=== PATIENT | female | born 1965 | race Hispanic/Latino ===

== ENCOUNTER 2018-09-05 20:01 | Observation (INO) | payer OTHER ==
[2018-09-05 20:21] LABS: BASOPHILS % (AUTO) 0.7 % (0.0-5.0); EOSINOPHILS % (AUTO) 1.3 % (0.0-8.0); HEMATOCRIT 42.4 % (36-48); LYMPHOCYTES % (AUTO) 40.1 % (21.0-51.0); MEAN CORPUSCULAR HEMOGLOBIN 29.8 pg (27.0-33.0); MEAN CORPUSCULAR VOLUME 90.4 fL (79-99); MONOCYTES % (AUTO) 7.5 % (3.0-13.0); NEUTROPHILS % (AUTO) 50.4 % (40.0-77.0); NUCLEATED RED BLOOD CELLS 0.1 % (0.0-0.19); PLATELET COUNT (AUTO) 241 K/uL (130-400); RED BLOOD CELL COUNT(AUTO) 4.69 MIL/uL (4.00-5.50); RED CELL DISTRIBUTION WIDTH 12.6 % (11.0-15.5); WHITE BLOOD COUNT (AUTO) 7.6 K/uL (4.8-10.8)
[2018-09-05 20:35] LABS: INR 0.91 (0.85-1.15); PARTIAL THROMBOPLASTIN TIME 25.1 SEC (26.3-35.5); PROTHROMBIN TIME 9.6 SEC (9.6-11.6)
[2018-09-05] MEDS ORDERED: ASPIRIN 325 MG TABLET ONE (21:24)
[2018-09-05 21:30] LABS: ALBUMIN 3.4 g/dL (3.5-5.0); BILIRUBIN,TOTAL 0.2 mg/dL (0.2-1.0); CREATININE 1.1 mg/dL (0.5-1.5); POTASSIUM 4.6 mmol/L (3.5-5.1); TOTAL PROTEIN, SERUM 7.5 g/dL (6.0-8.3)
[2018-09-06] MEDS ORDERED: ONDANSETRON HCL 4 MG/2 ML VIAL IV PRN (00:30)
[2018-09-06] MEDS ORDERED: MORPHINE SULFATE 2 MG/ML 1ML SYG IV PRN (00:30)
[2018-09-06] MEDS ORDERED: ACETAMINOPHEN 325 MG TAB PO PRN (00:30)
[2018-09-06] MEDS ORDERED: NITROGLYCERIN 1GM/1 INCH PACKET TD SCH (00:30)
[2018-09-06] MEDS ORDERED: NITROGLYCERIN 1GM/1 INCH PACKET TD ONE (01:12)
[2018-09-06] MEDS ORDERED: SODIUM CHLORIDE 0.9% 1000ML 1,000 ML IV ONE (01:12)
[2018-09-06] MEDS ORDERED: INSULIN HUMULIN R 100 UNIT/ML 3ML ONE ×2 (01:22)
[2018-09-06 04:30] VITALS: BP 124/71
[2018-09-06 04:59] LABS: HEMOGLOBIN A1C 11.7 % (4.0-6.0)
[2018-09-06 05:09] LABS: BILIRUBIN,TOTAL 0.2 mg/dL (0.2-1.0); CREATININE 0.6 mg/dL (0.5-1.5); POTASSIUM 3.5 mmol/L (3.5-5.1); TOTAL PROTEIN, SERUM 6.7 g/dL (6.0-8.3)
[2018-09-06] MEDS ORDERED: ACETAMINOPHEN 325 MG TAB ONE (06:14)
[2018-09-06] MEDS: SODIUM CHLORIDE 0.9% 1000ML 1,000 ML IV SCH ×2 (07:25→14:05)
[2018-09-06 08:00] VITALS: BP 112/72
[2018-09-06] MEDS ORDERED: PNEUMOCOCCAL VACCINE POLYVALENT 0.5 ML/VIAL [PPV] IM SCH (08:15)
[2018-09-06] MEDS ORDERED: ASPIRIN 325MG EC TAB 325 MG TABLET.DR PO SCH (09:00)
[2018-09-06] MEDS ORDERED: PNEUMOCOCCAL VACCINE POLYVALENT 0.5 ML/VIAL [PPV] SQ ONE (09:00)
[2018-09-06] MEDS ORDERED: FAMOTIDINE/PF 20 MG/2 ML VIAL IV SCH (09:00)
[2018-09-06] MEDS ORDERED: ENOXAPARIN SODIUM 30 MG/0.3 ML SQ SCH (09:00)
[2018-09-06 11:00] VITALS: BP 141/71
[2018-09-06] MEDS ORDERED: METFORMIN HCL 500 MG TABLET PO SCH (12:00)
[2018-09-06] MEDS ORDERED: METF-444 PO (13:29)
[2018-09-06] MEDS ORDERED: ATORVASTATIN CALCIUM 20 MG TABLET PO SCH ×2 (21:00)
== END 2018-09-06 15:50 | disposition home or self-care (01) ==
LOC: EDH 20:01 → EDHIP 20:02 → 3AH 09-06 05:23
PROVIDERS: ADMIT Internal Medicine; ATTEND Internal Medicine
DX: I24.9 Acute ischemic heart disease, unspecified (principal); I10 Essential (primary) hypertension; E11.65 Type 2 diabetes mellitus with hyperglycemia
CPT/HCPCS: 36415 ×2; 71045; 80053 ×2; 80061; 82550; 82948 ×2; 83036; 83874; 84484 ×3; 85025; 85610; 85730; 93005; 96372; 96374; 99284; G0378 ×20; J1650; J1815 ×2; J3490; J7030

== ENCOUNTER 2024-09-11 16:45 | Inpatient (IN) | payer BC ==
[~2024-09-11] VITALS: Ht 152.4 cm; Wt 53.8 kg
[~2024-09-11 16:45] MED LIST: METF-444 PO
--- NOTE | 2024-09-11 17:38 | ERN ---
ED Note History of Present Illness Stated Complaint: WOUND CHECK Chief Complaint: FOOT INJURY/PAIN Time Seen by MD: 17:07 Time Seen by Midlevel: 17:07 Dictation: The patient is a 59-year-old female with a history of CAD status post stents on July [address] Carrasco, diabetes, hypertension who presents to the emergency department for evaluation of a wound to right foot. Patient reports that during the heart catheterization that was complications and she had some occlusion on her right leg causing her toes to become necrotic. Patient reports they have been necrotic since July. Reports she is supposed to get them amputated but they had postponed due to her use of blood thinners. Reports that on Saturday she started having redness and swelling, drainage from foot. Denies any fevers. Allergies: Coded Allergies: No Known Drug Allergies (Unverified Allergy, Unknown, 09/06/18) Home Meds Reported Medications Dapagliflozin Propanediol (Farxiga) 10 Mg Tablet, 10 MG PO DAILY, TAB 09/12/24 Atorvastatin Calcium (LIPITOR) 40 Mg Tablet, 1 TAB PO HS for 30 Days, #30 TAB 0 Refills 09/12/24 Discontinued Scripts Metformin HCl (Metformin HCl) 500 Mg Tablet, 500 MG PO BID for 30 Days, #60 TAB Prov:TOMEKA SCHULTE AGNICHOLAS 09/06/18 Past Medical History Past Medical History: CAD, Diabetes-Type II, Hypertension Surgical History: Other Surgical History Other: STENTS RN Note Reviewed/Agreed w/PFSH: Yes Review of System Dictation Constitutional: Negative for fever,chills, and weight loss Eyes: Negative for injury, pain,redness, and discharge ENT: Negative for injury,pain or swelling Cardiovascular: Negative for chest pain, palpitations, and edema Respiratory: Negative for shortness of breath, cough, and wheezing, Abdomen/GI: Negative for abdominal pain, nausea, vomiting, diarrhea, and constipation Back: Negative for injury and pain : Negative for injury, bleeding and discharge MS/Extremity: Negative for injury and deformity Skin: Positive for a right foot drainage and redness Neuro: Negative for headache, weakness, numbness, tingling, and seizure Psych: Negative for suicide ideation, homicidal ideation, and hallucinations Initial Vital Sign VS Vital Signs Date Time Temp Pulse Resp B/P (MAP) Pulse Ox O2 Delivery O2 Flow Rate FiO2 09/11/24 16:55 98.6 86 20 121/75 98 Room Air 0 09/11/24 17:25 21 Physical Exam Dictation Vital Signs reviewed General Appearance: Alert, oriented x 3, no acute distress, well developed, nourished. Head and Face: non-traumatic. Eyes: PERRL, pink conjunctivas, eyelid no trauma, anterior chamber with arcus senilis. Ears: Pinnas intact and no signs of trauma or erythema ear canals clear and no discharge TM no erythema Nose: No discharge, no bleeding. Oropharynx: Mouth normal, tongue pink. pharynx clear,no erythema, tonsils no exudates, no abscesses noted, mucous membrane moist Neck: Supple, non-tender, no thyromegaly, no masses, no JVD, no bruits Breast:Deferred Chest:No tenderness, no crepitus, no paradoxical movement, no retractions Lungs:Clear, well-ventilated, symmetric, no rales, no wheezing, no rhonchi, no stridor, good breath sounds bilaterally Heart: Regular rate, regular rhythm, no murmur, no gallops Vascular: Right toes necrotic, dorsalis pedis nonpalpable Abdomen: Soft, positive bowel sounds, nondistended, no guarding, nontender, no rebound, no masses no hepatomegaly, no splenomegaly, no Rodríguez's sign, no hernias. Rectal: Deferred Genital: Deferred Neurological: Normal speech, motor function intact, sensory function intact Musculoskeletal: Neck nontender, full range of motion, back nontender, full range of motion, Extremities: nontender, full range of motion Skin: Color pink, dry, no turgor, no rash, no lacerations, no abrasions, no contusions. Right foot with erythema, warmth to touch, open wound with purulent drainage, five toes necrotic Lymphatic: Deferred Results (Laboratory/Radiology) Laboratory/Radiology Laboratory Tests Test 09/12/24 05:17 09/12/24 05:23 09/12/24 08:00 09/12/24 12:06 White Blood Count 7.0 K/uL (4.8-10.8) 6.9 K/uL (4.8-10.8) Red Blood Count 2.99 MIL/uL (4.00-5.50) #L 3.02 MIL/uL (4.00-5.50) L Hemoglobin 8.0 g/dL (12.0-16.0) #L 8.3 g/dL (12.0-16.0) L Hematocrit 26.8 % (36-48) #L 26.9 % (36-48) L Mean Corpuscular Volume 89.6 fL (79-99) 89.1 fL (79-99) Mean Corpuscular Hemoglobin 26.8 pg (27.0-33.0) L 27.5 pg (27.0-33.0) Mean Corpuscular Hemoglobin Concent 29.9 g/dL (32.0-36.0) L 30.9 g/dL (32.0-36.0) L Red Cell Distribution Width 14.7 % (11.0-15.5) 14.8 % (11.0-15.5) Platelet Count 461 K/uL (130-400) H 436 K/uL (130-400) H Mean Platelet Volume 9.4 fL (7.5-10.5) 9.2 fL (7.5-10.5) Immature Granulocyte % (Auto) 0.3 % (0-1) Neutrophils (%) (Auto) 52.0 % (40.0-77.0) Lymphocytes (%) (Auto) 34.4 % (21.0-51.0) Monocytes (%) (Auto) 9.8 % (3.0-13.0) Eosinophils (%) (Auto) 3.1 % (0.0-8.0) Basophils (%) (Auto) 0.4 % (0.0-5.0) Neutrophils # (Auto) 3.7 K/uL (1.8-7.7) Lymphocytes # (Auto) 2.4 K/uL (1.0-4.8) Monocytes # (Auto) 0.7 K/uL (0.1-1.0) Eosinophils # (Auto) 0.22 K/uL (0.00-0.70) Basophils # (Auto) 0.03 K/uL (0.00-0.20) Absolute Immature Granulocyte (auto 0.02 K/uL (0-1) Nucleated Red Blood Cells 0.0 % (0.0-0.19) 0.0 % (0.0-0.19) Prothrombin Time 11.1 SEC (9.6-11.6) Prothromb Time International Ratio 0.99 (0.85-1.15) Activated Partial Thromboplast Time 29.3 SEC (26.3-35.5) Sodium Level 141 mmol/L (136-145) 140 mmol/L (136-145) Potassium Level 3.4 mmol/L (3.5-5.1) L 3.5 mmol/L (3.5-5.1) Chloride Level 107 mmol/L (101-111) 107 mmol/L (101-111) Carbon Dioxide Level 26 mmol/L (21-32) 26 mmol/L (21-32) Blood Urea Nitrogen 14 mg/dL (7-18) 13 mg/dL (7-18) Creatinine 0.6 mg/dL (0.5-1.0) 0.5 mg/dL (0.5-1.0) Glomerular Filtration Rate Calc 102 mL/min (>90) 107 mL/min (>90) Random Glucose 110 mg/dL (70-105) H 110 mg/dL (70-105) H Hemoglobin A1c 6.7 % (4.0-6.0) H Estimated Average Glucose (eAG) 146 mg/dL (70-126) H Total Calcium 8.5 mg/dL (8.5-10.1) 8.6 mg/dL (8.5-10.1) Phosphorus Level 4.0 mg/dL (2.5-4.9) Magnesium Level 2.00 mg/dL (1.80-2.40) Whole Blood Glucose 113 MG/DL (70-110) H 101 MG/DL (70-110) Segmented Neutrophils % 75 % (40-70) H Lymphocytes % (Manual) 17 % (22-44) L Monocytes % (Manual) 8 % (2-9) Differential Comment MANUAL DIFFERENTIAL White Cell Morphology Comment Platelet Morphology Comment SLIGHT INCREASED Red Blood Cell Morphology See comments Test 09/12/24 15:24 09/12/24 20:00 09/12/24 20:15 09/13/24 04:00 Whole Blood Glucose 140 MG/DL (70-110) H 110 MG/DL (70-110) Vancomycin Level Trough 20.5 UG/ML (10.0-20.0) H 11.2 UG/ML (10.0-20.0) # White Blood Count 7.5 K/uL (4.8-10.8) Red Blood Count 3.19 MIL/uL (4.00-5.50) L Hemoglobin 8.5 g/dL (12.0-16.0) L Hematocrit 28.7 % (36-48) L Mean Corpuscular Volume 90.0 fL (79-99) Mean Corpuscular Hemoglobin 26.6 pg (27.0-33.0) L Mean Corpuscular Hemoglobin Concent 29.6 g/dL (32.0-36.0) L Red Cell Distribution Width 14.7 % (11.0-15.5) Platelet Count 460 K/uL (130-400) H Mean Platelet Volume 9.5 fL (7.5-10.5) Immature Granulocyte % (Auto) 0.4 % (0-1) Neutrophils (%) (Auto) 61.2 % (40.0-77.0) Lymphocytes (%) (Auto) 29.4 % (21.0-51.0) Monocytes (%) (Auto) 6.2 % (3.0-13.0) Eosinophils (%) (Auto) 2.3 % (0.0-8.0) Basophils (%) (Auto) 0.5 % (0.0-5.0) Neutrophils # (Auto) 4.6 K/uL (1.8-7.7) Lymphocytes # (Auto) 2.2 K/uL (1.0-4.8) Monocytes # (Auto) 0.5 K/uL (0.1-1.0) Eosinophils # (Auto) 0.17 K/uL (0.00-0.70) Basophils # (Auto) 0.04 K/uL (0.00-0.20) Absolute Immature Granulocyte (auto 0.03 K/uL (0-1) Nucleated Red Blood Cells 0.0 % (0.0-0.19) Test 09/13/24 05:17 09/13/24 10:43 09/13/24 11:05 09/13/24 15:32 Whole Blood Glucose 95 MG/DL (70-110) 100 MG/DL (70-110) 130 MG/DL (70-110) H Total Creatine Kinase 44 U/L (21-232) Troponin I High Sensitivity 21.0 ng/L (4-50) Test 09/13/24 20:28 09/14/24 04:35 09/14/24 05:21 09/14/24 07:38 Whole Blood Glucose 155 MG/DL (70-110) H 130 MG/DL (70-110) H 110 MG/DL (70-110) White Blood Count 7.6 K/uL (4.8-10.8) Red Blood Count 2.94 MIL/uL (4.00-5.50) L Hemoglobin 8.0 g/dL (12.0-16.0) L Hematocrit 26.0 % (36-48) L Mean Corpuscular Volume 88.4 fL (79-99) Mean Corpuscular Hemoglobin 27.2 pg (27.0-33.0) Mean Corpuscular Hemoglobin Concent 30.8 g/dL (32.0-36.0) L Red Cell Distribution Width 14.5 % (11.0-15.5) Platelet Count 444 K/uL (130-400) H Mean Platelet Volume 9.5 fL (7.5-10.5) Nucleated Red Blood Cells 0.0 % (0.0-0.19) Prothrombin Time 10.9 SEC (9.6-11.6) Prothromb Time International Ratio 0.97 (0.85-1.15) Activated Partial Thromboplast Time 29.2 SEC (26.3-35.5) Sodium Level 141 mmol/L (136-145) Potassium Level 3.1 mmol/L (3.5-5.1) L Chloride Level 107 mmol/L (101-111) Carbon Dioxide Level 26 mmol/L (21-32) Blood Urea Nitrogen 9 mg/dL (7-18) Creatinine 0.5 mg/dL (0.5-1.0) Glomerular Filtration Rate Calc 107 mL/min (>90) Random Glucose 136 mg/dL (70-105) H Total Calcium 8.9 mg/dL (8.5-10.1) Test 09/14/24 10:17 09/14/24 12:01 09/14/24 12:34 09/14/24 15:33 Hemoglobin 9.9 g/dL (12.0-16.0) #L Hematocrit 32.4 % (36-48) #L Sodium Level 142 mmol/L (136-145) Potassium Level 3.1 mmol/L (3.5-5.1) L Chloride Level 108 mmol/L (101-111) Carbon Dioxide Level 23 mmol/L (21-32) Blood Urea Nitrogen 7 mg/dL (7-18) Creatinine 0.5 mg/dL (0.5-1.0) Glomerular Filtration Rate Calc 107 mL/min (>90) Whole Blood Glucose 128 MG/DL (70-110) H 131 MG/DL (70-110) H 127 MG/DL (70-110) H Random Glucose 140 mg/dL (70-105) H Total Calcium 8.5 mg/dL (8.5-10.1) Vancomycin Level Trough 17.8 UG/ML (10.0-20.0) # Test 09/14/24 19:12 Whole Blood Glucose 188 MG/DL (70-110) H REASON: cellulitis ORDERING PHYSICIAN: BRADEN VERAS PROCEDURE: FT 3VW RT - FOOT COMP 3+VWS RT Exam Type: FOOT COMP 3+VWS RT Clinical Information: cellulitis Comparison: None Findings and impression: Osteopenia. No fractures or dislocations. No bone destruction to suggest osteomyelitis. Soft tissue swelling over the dorsum and plantar aspects of the foot, with soft tissue air consistent with soft tissue emphysema, soft tissue gangrene. Labs Reviewed?: Yes ED Course ED Course Orders Procedure Category Date Status Time Cbc W Manual Diff LAB 09/12/24 Complete 07:50 Basic Metabolic Panel LAB 09/12/24 Complete 07:53 Schedule Or Consented CPOE 09/12/24 Transmitted Surgery 09:48 Obtain Consent For: CPOE 09/12/24 Transmitted 09:48 Nothing By Mouth DIET 09/12/24 Complete Lunch Cardiology Consult CONPHYSVC 09/12/24 Transmitted 10:40 Ct Angio Abd Aorta W CT 09/12/24 Resulted Runoff 10:45 Iohexol (Omnipaque) PHA 09/12/24 Complete 11:05 Npo After Midnight CHRISTEL 09/12/24 Transmitted 13:59 Obtain Consent For: CPOE 09/13/24 Transmitted 10:00 Aerobic Culture MERI 09/12/24 In Process 14:06 Anaerobic Culture MERI 09/12/24 In Process 14:06 Consistent Carb DIET 09/12/24 Transmitted Lunch Aspirin 81mg Ec Tab PHA 09/13/24 In Process (Aspirin 81mg Ec Tab 09:00 Cbc With Differential LAB 09/13/24 Complete 04:00 Vancomycin Trough LAB 09/13/24 Complete 04:00 Telemetry Monitoring CPOE 09/12/24 Transmitted 22:21 Nitroglycerin 1gm PHA 09/12/24 In Process Oint (Nitroglycerin 1g 22:30 Vancomycin Trough LAB 09/14/24 Complete 12:00 Echo 2-D Complete ECHO 09/13/24 Resulted 19:03 Cardiac Panel LAB 09/13/24 Complete 10:18 12 Lead Ekg Tracing- EKG 09/12/24 Resulted Technical 22:07 *Nursing CPOE 09/13/24 Transmitted Communication: 21:25 Obtain Consent For: CPOE 09/14/24 Transmitted 07:30 Rbc - Preoperative BBK 09/13/24 In Process Order 21:32 Cbc Without LAB 09/14/24 Complete Differential 04:00 Basic Metabolic Panel LAB 09/14/24 Complete 04:00 Prothrombin Time With LAB 09/14/24 Complete INR 04:00 Partial LAB 09/14/24 Complete Thromboplastin Time 04:00 Npo After Midnight CHRISTEL 09/14/24 Transmitted 01:10 Midazolam Hcl (Versed) PHA 09/14/24 Complete 07:28 Propofol 20ml Vial PHA 09/14/24 Complete (Diprivan 20ml Vial) 07:29 Rocuronium [place] PHA 09/14/24 Complete (Zemuron) 07:29 Fentanyl Citrate Pf PHA 09/14/24 Complete 0.05 Mg/Ml (Fentanyl 07:29 Ropivacaine 0.5% PHA 09/14/24 Complete 5mg/Ml 30ml (Naropin) 07:37 Ropivacaine 0.5% PHA 09/14/24 Complete 5mg/Ml 30ml (Naropin) 07:43 Lidocaine 2%-Epi PHA 09/14/24 Complete 1:200,000 (Lidocaine 07:43 Phenylephrine Hcl PHA 09/14/24 Complete (Phenylephrine Hcl) 07:44 Succinylcholine PHA 09/14/24 Complete Chloride 07:48 Ondansetron 4mg Inj PHA 09/14/24 Complete (Zofran 4mg Inj) 08:53 Sugammadex Sodium PHA 09/14/24 Complete (Bridion) 09:28 Fentanyl Citrate Pf PHA 09/14/24 Complete 0.05 Mg/Ml (Fentanyl 09:37 Hemoglobin And LAB 09/14/24 Complete Hematocrit 09:48 Basic Metabolic Panel LAB 09/14/24 Complete 09:48 Infectious Disease CONPHYSVC 09/14/24 Transmitted Consult 11:30 Pt Eval And Treat PT 09/14/24 Transmitted 11:55 Case Management CM 09/14/24 Transmitted Evaluation 11:55 Is Q1hr While Awake RT 09/14/24 Transmitted 11:55 Vancomycin Trough LAB 09/16/24 Verified 12:00 Hydromorphone 0.5mg PHA 09/14/24 Complete Syg (Dilaudid 0.5mg 14:00 Ketorolac PHA 09/14/24 In Process Tromethamine 15mg/Ml 14:00 Gabapentin 100 Mg Cap PHA 09/14/24 In Process (Neurontin 100 Mg 21:00 Cbc With Differential LAB 09/15/24 In Process 04:00 Basic Metabolic Panel LAB 09/15/24 In Process 04:00 Initiate Po CHRISTEL 09/14/24 In Process Hypokalemia Protoc 18:01 Potassium Chloride PHA 09/14/24 In Process 20meq/100ml ([place] 18:30 Potassium Chl 10% PHA 09/14/24 In Process Elixir 20meq (Kcl 10% 18:30 Potassium Chloride PHA 09/14/24 In Process 20meq Er (K-Dur/Klor- 18:30 Notify Physician If CPOE 09/14/24 Transmitted There Is 18:01 Notify Md On The Next CPOE 09/14/24 Transmitted 18:01 Notify Md On The CPOE 09/14/24 Transmitted Next(Cont.) 18:01 Vital Signs Date Time Temp Pulse Resp B/P (MAP) Pulse Ox O2 Delivery O2 Flow Rate FiO2 09/15/24 03:41 98.4 86 16 138/78 95 Room Air 09/14/24 23:05 97.7 76 16 139/67 94 Room Air 09/14/24 20:20 Room Air* 0 21 09/14/24 19:15 97.9 80 16 143/77 95 Room Air 09/14/24 14:45 87 135/68 98 Room Air 09/14/24 13:45 82 141/71 94 Room Air 09/14/24 12:45 83 151/78 94 Room Air 09/14/24 12:15 81 143/87 98 Room Air 09/14/24 11:45 83 149/94 98 Room Air 09/14/24 11:30 77 145/75 97 Room Air 09/14/24 11:15 74 146/77 98 Room Air 09/14/24 11:00 97.5 71 16 114/60 99 Room Air 09/14/24 10:45 97.9 69 16 112/53 93 Room Air 21 09/14/24 10:40 68 18 117/56 97 Room Air 21 09/14/24 10:35 70 22 116/56 97 Room Air 21 09/14/24 10:30 68 22 110/54 96 Room Air 21 09/14/24 10:25 68 16 116/56 93 Room Air 21 09/14/24 10:20 67 18 93/57 93 Room Air 21 09/14/24 10:15 68 19 104/56 93 Room Air 21 09/14/24 10:10 67 16 110/55 94 Room Air 21 09/14/24 10:05 68 16 116/60 95 Room Air 21 09/14/24 10:00 68 16 127/60 96 Room Air 21 09/14/24 09:55 68 17 114/50 100 Nonrebreathing Mask 10.0 09/14/24 09:50 68 17 112/52 100 Nonrebreathing Mask 10.0 09/14/24 09:45 97.9 70 16 122/51 100 Nonrebreathing Mask 10.0 09/14/24 08:00 97 Room Air* 0 09/14/24 07:40 96.6 75 17 116/51 97 Room Air 09/14/24 04:00 98.1 70 18 110/65 97 Nasal Cannula 09/14/24 00:00 98.2 69 18 115/66 96 Room Air 09/13/24 20:20 96 Room Air* 0 09/13/24 20:00 98.2 71 18 109/66 96 Room Air 09/13/24 15:10 97.9 71 20 107/58 97 Room Air 09/13/24 11:31 98.1 74 20 117/61 100 Room Air 09/13/24 08:06 97 Room Air* 0 09/13/24 07:51 78 20 123/67 97 Room Air 09/13/24 04:00 98.6 75 18 106/64 97 Room Air 09/13/24 00:00 99.3 69 18 117/66 98 Room Air 09/12/24 21:30 98 Room Air* 0 21 09/12/24 20:00 99.0 68 18 116/66 98 Room Air 09/12/24 15:47 98.2 76 17 118/70 98 Room Air 09/12/24 13:42 97 Room Air* 0 21 09/12/24 12:00 98.1 72 17 111/72 98 Room Air 09/12/24 08:00 98.4 68 16 103/56 97 Room Air 09/12/24 08:00 98.6 70 19 108/60 98 Room Air Medical Decision Making MDM MDM: The patient is a 59-year-old female with a history of CAD status post stents on July [address] Carrasco, diabetes, hypertension who presents to the emergency department for evaluation of a wound to right foot. Patient reports that during the heart catheterization that was complications and she had some occlusion on her right leg causing her toes to become necrotic. Patient reports they have been necrotic since July. Reports she is supposed to get them amputated but they had postponed due to her use of blood thinners. Reports that on Saturday she started having redness and swelling, drainage from foot. Denies any fevers. CBC showed no leukocytosis, no anemia, chemistry showed mild hyperglycemia, x- ray showed soft tissue swelling over the dorsum and plantar aspects of the foot with soft tissue air consistent with gangrene. Patient will be admitted for further management. Differential diagnosis: Cellulitis, sepsis, osteomyelitis, dehydration Comorbidities: Diabetes, CAD, hypertension Tests considered and not ordered secondary to shared decision making include: none Previous outside records reviewed: none Risk of complication and/or morbidity or mortality of patient management: The patient meets criteria for admission. Need for emergency major/minor surgery: No There are no social concerns with this patient. I independently interpreted the tests I ordered (labs, urinalysis, etc.). I discussed the case with the hospitalist for admission. Lonnie who accepts admission. I discussed the case with the following specialists: who says patie nt needs to go with podiatry. Historian: pateint. I independently interpreted imaging studies and EKGs that I ordered (US, CT, XR, EKG, etc.). External chart review: none. Medical management and examination interpretation discussions were had by me with other qualified healthcare professionals as indicated for the patient's care. DX & DISP Disposition: Inpatient Decision to Admit Date: Sep 12, 2024 Decision to Admit Time: 19:57 Departure Impression: Primary Impression: Gas gangrene of foot Additional Impressions: Right foot infection, Necrotic toes Condition: Stable Referrals: ARUN MANDUJANO MD (PCP) I have reviewed the case, and I agree with, Diagnosis and Plan ATTESTATION BY PHYSICIAN I PERFORMED THE SUBSTANTIVE PORTION OF THE VISIT. I HAVE REVIEWED AND PERSONALLY MADE AND APPROVED THE MANAGEMENT PLAN THAT IS DOCUMENTED IN THE NOTE BY MYSELF FOR THE A PP. I ACKNOWLEDGED FOR RESPONSIBILITY FOR THE PATIENT'S MANAGEMENT PLAN. BRADEN VERAS Sep 11, 2024 17:38 YAKOV ROSAS MD Sep 15, 2024 04:49
[2024-09-11 18:09] LABS: BASOPHILS # (AUTO) 0.05 K/uL (0.00-0.20); BASOPHILS % (AUTO) 0.6 % (0.0-5.0); EOSINOPHILS # (AUTO) 0.13 K/uL (0.00-0.70); EOSINOPHILS % (AUTO) 1.5 % (0.0-8.0); HEMATOCRIT 36.5 % (36-48); IMMATURE GRANULOCYTE ABSOLUTE 0.04 K/uL (0-1); LYMPHOCYTES # (AUTO) 2.5 K/uL (1.0-4.8); LYMPHOCYTES % (AUTO) 27.8 % (21.0-51.0); MEAN CORPUSCULAR HEMOGLOBIN 27.5 pg (27.0-33.0); MEAN CORPUSCULAR HGB CONC 30.7 g/dL (32.0-36.0); MEAN CORPUSCULAR VOLUME 89.7 fL (79-99); MONOCYTES # (AUTO) 0.7 K/uL (0.1-1.0); MONOCYTES % (AUTO) 7.6 % (3.0-13.0); NEUTROPHILS # (AUTO) 5.5 K/uL (1.8-7.7); PLATELET COUNT (AUTO) 602 K/uL (130-400); RED BLOOD CELL COUNT(AUTO) 4.07 MIL/uL (4.00-5.50); RED CELL DISTRIBUTION WIDTH 14.7 % (11.0-15.5); WHITE BLOOD COUNT (AUTO) 8.8 K/uL (4.8-10.8)
[2024-09-11] MEDS: ZOSYN 3.375GM+NS 50ML 50 ML IVPB STA (18:21)
[2024-09-11] MEDS: 0.9%NACL 1000ML 1,000 ML IV ONE (18:21)
[2024-09-11 18:22] VITALS: TEMP 98.6
[2024-09-11 18:22] LABS: CREATININE 0.6 mg/dL (0.5-1.0); INR 0.99 (0.85-1.15); PROTHROMBIN TIME 11.1 SEC (9.6-11.6)
[2024-09-11] MEDS: acetaMINOPHEN 500 MG TABLET PO ONE (18:22)
[2024-09-11 18:23] LABS: PARTIAL THROMBOPLASTIN TIME 25.1 SEC (26.3-35.5); POTASSIUM 4.2 mmol/L (3.5-5.1)
--- NOTE | 2024-09-11 18:27 | HMCIMG ---
Exam Type: FOOT COMP 3+VWS RT Clinical Information: cellulitis Comparison: None Findings and impression: Osteopenia. No fractures or dislocations. No bone destruction to suggest osteomyelitis. Soft tissue swelling over the dorsum and plantar aspects of the foot, with soft tissue air consistent with soft tissue emphysema, soft tissue gangrene.
[2024-09-11] MEDS: VANCOMYCIN 1G/250ML KIT 250 ML IV ONE (18:51)
[2024-09-11] MEDS ORDERED: ondanSETRON 4MG INJ IV PRN (20:00)
[2024-09-11] MEDS ORDERED: acetaMINOPHEN 650 MG SUPPOSITORY RC PRN (20:00)
[2024-09-11] MEDS ORDERED: hydrALAZine 20MG/ML VIAL IV PRN (20:00)
[2024-09-11] MEDS ORDERED: VANCOMYCIN PROTOCOL PER PHARMACY IV SCH (20:00)
[2024-09-11] MEDS ORDERED: ZOSYN 3.375GM +NS 50ML IV SCH (20:00)
--- NOTE | 2024-09-11 20:09 | HP ---
History of Present Illness Reason for Visit: Foot Wound History of Present Illness Ms. Cordero is a 59-year-old female that was seen and examined today on 09/11/2024. Patient is a good historian and personal health. Patient states that she came to the emergency department with a chief complaint of foot pain. Onset was August 20, 2024. Location is to right foot. Duration is constant. Character is described as aching. There was no alleviating fac tors. Symptoms are aggravated by toes being black. Patient states she was hospitalized about three weeks ago at [facility] and was told that she will eventually need amputation of her toes. Patient denies any associated fever or chills. Today in the emergency department CBC unremarkable, chemistry unremarkable, coagulation unremarkable, no urinalysis has been collected or sent to lab. Right foot x-ray shows osteopenia. No fractures or dislocations. No bone destruction to suggest osteomyelitis. Soft tissue swelling over the dorsum and plantar aspects of the foot with soft tissue air consistent with soft tissue emphysema, soft tissue gangrene. Emergency room physician contacted general surgeon on-call who recommended patient be admitted under hospitalist group with a diagnosis of gas gangrene. Past Medical History Patient History: Autism Cardiovascular disease MOTHER SISTER Diabetes mellitus MOTHER FATHER BROTHER SISTER Hypertension MOTHER SISTER ADDITIONAL PAST MEDICAL HISTORY: [Diabetes mellitius type2, hypertension, myocardial infarction] SOCIAL HISTORY: [Negative for smoking, alcohol use, drug use. Patient lives with the Raymond Cordero. Patient has good access to health care through her insurance. Patient denies difficulty paying her bills. Patient is typically independent of all her ADLs. 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 Dyspnea, Edema, Lt Headedness, Other Gastrointestinal: No: Nausea, Vomiting, Abdominal Pain, Diarrhea, Constipation, Melena, Hematochezia, Other Genitourinary: No Dysuria, No Frequency, No Incontinence, No Hematuria, No Retention, No Other Musculoskeletal: foot pain; No: other, neck pain, shoulder pain, arm pain, back pain, hand pain, leg pain Skin: No Urticaria, No Rash; Other (Wound to right foot) Neurological: No: Weakness, Numbness, Incoordination, Change in speech, Confu marcia, Seizures, Other Allergies: Coded Allergies: No Known Drug Allergies (Unverified Allergy, Unknown, 09/06/18) Scheduled Metformin HCl (Metformin HCl), 500 MG PO BID Exam Vital Signs Vital Signs Date Time Temp Pulse Resp B/P (MAP) Pulse Ox O2 Delivery O2 Flow Rate FiO2 09/11/24 18:22 98.6 09/11/24 17:25 86 18 109/63 100 Room Air* 0 21 General Appearance: Alert, Oriented X3, Cooperative, mild distress HEENT: Atraumatic, EOMI Respiratory: Clear to auscultation, Normal air movement, NL respiratory effort Cardiovascular: Regular rate, Regular rhythm, Normal S1, Normal S2 Abdominal: Normal bowel sounds, Soft, No tenderness Extremities: Other (Necrosis to distal phalanges of right foot) Skin: Other (Draining soft tissue wound to right foot) Neuro: Normal speech, Strength at 5/5 X4 ext, Sensation intact, Cranial nerves 3-12 NL Psych/Mental Status: Mental status NL, Mood NL, Thoughts/Content NL Assessment/Plan ASSESSMENT: [ Gas gangrene right foot, POA Right foot necrosis, POA Diabetes mellitius type2 Hypertension] PLAN: [ Admit patient to medical floor as inpatient status. Patient will be followed by General surgery Service , . Patient will be followed by Podiatry Service, Dr. Sierra. Keep patient NPO. Check preprocedure labs, CBC, BMP, magnesium, phosphorus, PTT, UA, type and screen, EKG, CXR As needed analgesia with morphine Empiric antibiotic therapy with vancomycin and Zosyn Obtain wound culture, follow up with the results Check blood culture, follow up with the results Arterial ultrasound of bilateral lower extremities to evaluate for healing potential. Check hemoglobin A1c in a.m. Glucometer checks a.c. and HS 1800 ADA diet once patient is no longer NPO Humulin R sliding scale 1/2 dose Consider resuming home medications once they have been reconciled inpatient is no longer NPO. GI prophylaxis, famotidine 20 mg IV once daily. DVT prophylaxis, Ramirez's and SCDs avoid anticoagulation at this time due to impending surgical evaluation. ADVANCED CARE PLANNING 1. Which of the following were discussed? Hospice Care - Yes Therapeutic options - Yes Advance Directives - Yes- patient states that she does not have any advance directives in place at this time, however has been can make decisions for her if she becomes unable. Other discussions - patient wishes to remain a full code at this time 2. Discussed with who? Patient 3. Voluntary nature of this service was explained to the patient? Yes 4. Amount of time spent - __ 16 minutes 5. Reviewed by Physician? (if this service was performed by NPP) Yes This document was generated in part using voice recognition software, occasional wrong word or sound alike substitutions may have occurred due to the inherent limitations of voice recognition software. Read the chart carefully and recognize using context, where the substitutions have occurred. Although every effort was made to edit the content, housekeeper head and typing errors may occur ATTESTATION BY PHYSICIAN I have seen and examined the patient. I reviewed the documentation, medical decision making, and treatment plan as noted by the mid-level provider above. I agree with the findings and plan of care. STEVEN LINDO ZIPPER JOINER Sep 11, 2024 20:09
--- NOTE | 2024-09-11 20:45 | HMCIMG ---
INDICATION: preprocedural TECHNIQUE: CHEST 1VW COMPARISON: 09/05/2018 FINDINGS/IMPRESSION: Prominent bilateral interstitial markings which may represent bronchitis or vascular congestion in the proper clinical setting. Cardiac silhouette is within normal limits. Mild degenerative changes of the spine. The visualized upper abdomen appears unremarkable.
[2024-09-11] MEDS: LACTATED RINGERS 1000ML 1,000 ML IV SCH (20:48)
--- NOTE | 2024-09-11 20:50 | NUR ---
MED NOT REC- NOT AVAILABLE AT BEDSIDE
[2024-09-11] MEDS: INSULIN humuLIN R 100 UNIT/ML 3ML SQ SCH (21:00)
[2024-09-11] MEDS: VANCOMYCIN 1.25 GM/250 ML BAG 250 ML IV ONE (21:20)
--- NOTE | 2024-09-11 21:30 | NUR ---
PENDING ZOSYN DOSE FROM 2AM THIS MORNING NOTED.
[2024-09-11 21:36] LABS: APPEARANCE,URINE CLOUDY (CLEAR); BILIRUBIN,URINE NEGATIVE (NEGATIVE); COLOR,URINE YELLOW (YELLOW); GLUCOSE, URINE (UA) >=1000 mg/dL (NEGATIVE); KETONES,URINE 10 mg/dL (NEGATIVE); LEUKOCYTE ESTERASE ,URINE 500 Leu/uL (NEGATIVE); NITRATE,URINE 1+ (NEGATIVE); OCCULT BLOOD,URINE SMALL (NEGATIVE); PH,URINE 5.5 (5.0-8.0); PROTEIN,URINE 20 mg/dL (NEGATIVE); UROBILINOGEN,URINE 0.2 mg/dL (0.2-1.0)
[2024-09-11 21:37] LABS: ADD UA MICROSCOPIC YES
[2024-09-11 21:38] LABS: BACTERIA,URINE FEW /HPF (None Seen); MUCUS,URINE RARE LPF (None Seen); SQUAMOUS EPITHELIAL CELL,UR FEW /HPF (0-2); WBC CLUMP FEW /HPF (0-1); WBC,URINE TNTC /HPF (0-1)
[2024-09-11 21:45] VITALS: O2SAT 97
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
[2024-09-11 22:00] VITALS: BP 119/67; PULSE 75; RESP 20; TEMP 97.8
[2024-09-12] VITALS (7 sets, daily range): BP systolic 103–118; BP diastolic 56–72; PULSE 67–76; RESP 16–19; TEMP 98–98.9; O2SAT 97–98
[2024-09-12] MEDS: ZOSYN 3.375GM +NS 50ML IV SCH (01:04)
--- NOTE | 2024-09-12 03:10 | EKG ---
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
[2024-09-12] MEDS: VANCOMYCIN 750MG VIAL IVPB SCH (04:50)
[2024-09-12 05:30] LABS: BASOPHILS # (AUTO) 0.03 K/uL (0.00-0.20); BASOPHILS % (AUTO) 0.4 % (0.0-5.0); EOSINOPHILS # (AUTO) 0.22 K/uL (0.00-0.70); EOSINOPHILS % (AUTO) 3.1 % (0.0-8.0); HEMATOCRIT 26.8 % (36-48); IMMATURE GRANULOCYTE ABSOLUTE 0.02 K/uL (0-1); LYMPHOCYTES # (AUTO) 2.4 K/uL (1.0-4.8); LYMPHOCYTES % (AUTO) 34.4 % (21.0-51.0); MEAN CORPUSCULAR HEMOGLOBIN 26.8 pg (27.0-33.0); MEAN CORPUSCULAR HGB CONC 29.9 g/dL (32.0-36.0); MEAN CORPUSCULAR VOLUME 89.6 fL (79-99); MONOCYTES # (AUTO) 0.7 K/uL (0.1-1.0); MONOCYTES % (AUTO) 9.8 % (3.0-13.0); NEUTROPHILS # (AUTO) 3.7 K/uL (1.8-7.7); PLATELET COUNT (AUTO) 461 K/uL (130-400); RED BLOOD CELL COUNT(AUTO) 2.99 MIL/uL (4.00-5.50); RED CELL DISTRIBUTION WIDTH 14.7 % (11.0-15.5)
[2024-09-12 05:44] LABS: INR 0.99 (0.85-1.15); PROTHROMBIN TIME 11.1 SEC (9.6-11.6)
[2024-09-12 05:45] LABS: PARTIAL THROMBOPLASTIN TIME 29.3 SEC (26.3-35.5)
[2024-09-12 05:47] LABS: HEMOGLOBIN A1C 6.7 % (4.0-6.0)
[2024-09-12 05:50] LABS: CREATININE 0.6 mg/dL (0.5-1.0); POTASSIUM 3.4 mmol/L (3.5-5.1)
[2024-09-12 08:08] LABS: HEMATOCRIT 26.9 % (36-48); MEAN CORPUSCULAR HEMOGLOBIN 27.5 pg (27.0-33.0); MEAN CORPUSCULAR HGB CONC 30.9 g/dL (32.0-36.0); MEAN CORPUSCULAR VOLUME 89.1 fL (79-99); PLATELET COUNT (AUTO) 436 K/uL (130-400); RED BLOOD CELL COUNT(AUTO) 3.02 MIL/uL (4.00-5.50); RED CELL DISTRIBUTION WIDTH 14.8 % (11.0-15.5); WHITE BLOOD COUNT (AUTO) 6.9 K/uL (4.8-10.8)
[2024-09-12 08:19] LABS: CREATININE 0.5 mg/dL (0.5-1.0); POTASSIUM 3.5 mmol/L (3.5-5.1)
--- NOTE | 2024-09-12 08:30 | HMCIMG ---
Exam Type: US ARTERIAL BILAT LOW EXT DUPL Clinical Information: right foot necrosis Comparison: None Findings: Diffuse bilateral plaque is identified. There are normal triphasic waveforms of the right common femoral artery through the distal superficial femoral artery, left common femoral artery through the popliteal artery, left posterior tibial artery. There are biphasic waveforms of the left anterior tibial artery, left dorsalis pedis artery, consistent with moderate nonocclusive hemodynamically significant disease. There are monophasic abnormal waveforms of the right popliteal artery, right posterior tibial artery consistent with severe nonocclusive disease. The right anterior tibial artery and dorsalis pedis artery are occluded. IMPRESSION: Peripheral vascular disease as noted.
[2024-09-12] MEDS: FAMOTIDINE 20MG VIAL IV SCH (09:14)
[2024-09-12 09:53] LABS: LYMPHOCYTES % (MANUAL) 17 % (22-44); MAN.DIFF COMMENT-IMPRESSION MANUAL DIFFERENTIAL; MONOCYTES % (MANUAL) 8 % (2-9); SEGMENTED NEUTROPHILS % 75 % (40-70); TOTAL CELLS COUNTED 100
[2024-09-12 09:57] LABS: PLATELET MORPHOLOGY COMMENT SLIGHT INCREASED
--- NOTE | 2024-09-12 10:16 | CONS ---
CONSULTATION NOTE Date of Service: Sep 12, 2024 Reason for Consultation: This 59 years old female was seen on consultation after presented to the emergency room with gas gangrene to the left foot and gangrene to the left anterior aspect of the foot. Requesting Physician: Dr. Mcclendon HISTORY OF PRESENT ILLNESS: 59 years old female with gangrene to the left foot for over two months' duration increasing in severity extending further up to the foot demarcated at the area of the Chopart joint on the left foot severe gangrene and underlying peripheral vascular disease. Was seen at [facility] no procedure was performed at that point in time present to the emergency room with continue with gangrene. REVIEW OF SYSTEMS CONSTITUTIONAL: Denies fever, chills, or fatigue. HEAD/FACE: No signs of trauma. EENT: Denies eye pain, blurred vision, double vision, or light sensitivity. RESPIRATORY: Denies shortness of breath, cough, wheezing CARDIOVASCULAR: Denies chest pain, palpitation, syncope GASTROINTESTINAL/ABDOMINAL: Denies abdominal pain, constipation, diarrhea, nausea or vomiting GENITOURINARY: Denies dysuria or hematuria. MUSCULOSKELETAL: Denies joint pain, tenderness, or trauma. INTEGUMENTARY: Left foot gangrene toes and midfoot NEUROLOGICAL/PSYCH: Denies anxiety, depression, heat or cold intolerance. PAST MEDICAL HISTORY: Diabetes peripheral vascular disease PAST SURGICAL HISTORY: [ ] PAST SOCIAL HISTORY: Denies smoking drinking or using illicit drugs FAMILY HISTORY: Family support no otherwise noncontributory Coded Allergies: No Known Drug Allergies (Unverified Allergy, Unknown, 09/06/18) PHYSICAL EXAM EYES: Anicteric. Pupils equal and reactive. HENT: No oral thrush seen, moist Oral mucosa NECK: Supple, no JVD or thyromegaly. LUNGS: Good air entry. No rales, no rhonchi. CARDIOVASCULAR: S1, S2 regular. No murmur heard. Nonpalpable pulses. Left foot ABDOMEN: Soft, non tender, bowel sounds present, no organomegaly CENTRAL NERVOUS SYSTEM: Awake, alert, oriented x 3. No focal deficits. SKIN: Left foot gangrene affecting most of the forefoot and midfoot at this point. LYMPHATICS: No peripheral lymphadenopathy MUSCULOSKELETAL: No joint swelling, erythema or tenderness. EXTREMITIES: Peripheral vascular disease gangrene to the left foot extending down to Chopart area. BACK: No deformity, no pressure ulcer. GENITOURINARY: No dysuria or hematuria Vital Sign (Last 24 Hours) 09/11/24 21:45 O2 Flow Rate 0 FiO2 21 Intake & Output (last 24hrs) 09/11/24 09/11/24 09/12/24 15:00 23:00 07:00 Intake Total 900.0 ml Balance 900.0 ml LABS: Laboratory: Test 09/12/24 08:00 09/12/24 05:17 09/11/24 21:15 09/11/24 17:53 Range/Units White Blood Count 6.9 4.8-10.8 K/uL Red Blood Count 3.02 L 4.00-5.50 MIL/uL Hemoglobin 8.3 L 12.0-16.0 g/dL Hematocrit 26.9 L 36-48 % Mean Corpuscular Volume 89.1 79-99 fL Mean Corpuscular Hemoglobin 27.5 27.0-33.0 pg Mean Corpuscular Hemoglobin Concent 30.9 L 32.0-36.0 g/dL Red Cell Distribution Width 14.8 11.0-15.5 % Platelet Count 436 H 130-400 K/uL Mean Platelet Volume 9.2 7.5-10.5 fL Nucleated Red Blood Cells 0.0 0.0-0.19 % Sodium Level 140 136-145 mmol/L Potassium Level 3.5 3.5-5.1 mmol/L Chloride Level 107 101-111 mmol/L Carbon Dioxide Level 26 21-32 mmol/L Blood Urea Nitrogen 13 7-18 mg/dL Creatinine 0.5 0.5-1.0 mg/dL Glomerular Filtration Rate Calc 107 >90 mL/min Random Glucose 110 H 70-105 mg/dL Total Calcium 8.6 8.5-10.1 mg/dL Immature Granulocyte % (Auto) 0.3 0-1 % Neutrophils (%) (Auto) 52.0 40.0-77.0 % Lymphocytes (%) (Auto) 34.4 21.0-51.0 % Monocytes (%) (Auto) 9.8 3.0-13.0 % Eosinophils (%) (Auto) 3.1 0.0-8.0 % Basophils (%) (Auto) 0.4 0.0-5.0 % Neutrophils # (Auto) 3.7 1.8-7.7 K/uL Lymphocytes # (Auto) 2.4 1.0-4.8 K/uL Monocytes # (Auto) 0.7 0.1-1.0 K/uL Eosinophils # (Auto) 0.22 0.00-0.70 K/uL Basophils # (Auto) 0.03 0.00-0.20 K/uL Absolute Immature Granulocyte (auto 0.02 0-1 K/uL Prothrombin Time 11.1 9.6-11.6 SEC Prothromb Time International Ratio 0.99 0.85-1.15 Activated Partial Thromboplast Time 29.3 26.3-35.5 SEC Hemoglobin A1c 6.7 H 4.0-6.0 % Estimated Average Glucose (eAG) 146 H 70-126 mg/dL Phosphorus Level 4.0 2.5-4.9 mg/dL Magnesium Level 2.00 1.80-2.40 mg/dL Urine Color YELLOW YELLOW Urine Appearance CLOUDY H CLEAR Urine pH 5.5 5.0-8.0 Urine Specific [place] 1.044 H 1.001-1.031 Urine Protein 20 H NEGATIVE mg/dL Urine Glucose (UA) >=1000 H NEGATIVE mg/dL Urine Ketones 10 H NEGATIVE mg/dL Urine Occult Blood SMALL H NEGATIVE Urine Nitrate 1+ H NEGATIVE Urine Bilirubin NEGATIVE NEGATIVE mg/dL Urine Urobilinogen 0.2 0.2-1.0 mg/dL Urine Leukocyte Esterase 500 H NEGATIVE Martin/uL Urine RBC 11-25 H 0-1 /HPF Urine WBC TNTC H 0-1 /HPF Urine WBC Clumps (Auto) FEW 0-1 /HPF Urine Squamous Epithelial Cells FEW 0-2 /HPF Urine Bacteria FEW None Seen /HPF Lactic Acid Level 1.5 0.8-2.5 mmol/L DIAGNOSTICS / RADIOLOGY: Exam Type: US ARTERIAL BILAT LOW EXT DUPL Clinical Information: right foot necrosis Comparison: None Findings: Diffuse bilateral plaque is identified. There are normal triphasic waveforms of the right common femoral artery through the distal superficial femoral artery, left common femoral artery through the popliteal artery, left posterior tibial artery. There are biphasic waveforms of the left anterior tibial artery, left dorsalis pedis artery, consistent with moderate nonocclusive hemodynamically significant disease. There are monophasic abnormal waveforms of the right popliteal artery, right posterior tibial artery consistent with severe nonocclusive disease. The right anterior tibial artery and dorsalis pedis artery are occluded. IMPRESSION: Peripheral vascular disease as noted. Exam Type: FOOT COMP 3+VWS RT Clinical Information: cellulitis Comparison: None Findings and impression: Osteopenia. No fractures or dislocations. No bone destruction to suggest osteomyelitis. Soft tissue swelling over the dorsum and plantar aspects of the foot, with soft tissue air consistent with soft tissue emphysema, soft tissue gangrene. ASSESSMENT: Gangrene to left foot Peripheral vascular disease Diabetes PLAN: Patient was educated and her on the problem at this time recommendation was a minimum of Chopart amputation although at this time the and the patient itself this had a discussion and we will prefer to go to a higher level to avoid future complications with the possibility of BKA Dr. Ruby was call on consult at this time for [id number] amputation evaluation continue IV antibiotics continued medical management we will cancel Chopart amputation at this point. Please reconsult if necessary continue local care in the meanwhile. ANA MILLAN DPM Sep 12, 2024 10:16
[2024-09-12] MEDS ORDERED: IOHEXOL 350 MG/ML 100ML INFUS..BTL IV ONE (11:05)
--- NOTE | 2024-09-12 12:14 | HMCIMG ---
Exam Type: CT angiogram abdomen and pelvis and lower extremities run-off with contrast Exam Type: CT ANGIO ABD AORTA W RUNOFF Clinical Information: RIGHT FOOT GANGRENE Comparison: None Technique: Routine helical scanning at 5mm collimation through the abdomen and pelvis after contrast administration. In addition, sagittal and coronary formations of the abdomen pelvis and surface rendering three-dimensional reconstructions of the abdominal aorta and the bilateral lower extremity arterial system were performed. Findings: The vascular examination is abnormal. There is a patent stent of the right proximal superficial femoral artery. Right runoff is preserved. On the left side, the posterior tibial artery provides the only runoff. The anterior tibial artery and interosseous artery are occluded. There is no aortic aneurysm. There is no occlusion. There is no dissection. There is no extravasation to suggest laceration or rupture. No evidence of nephro or ureterolithiasis is found. No hydronephrosis or ureteral dilatation is seen. The visualized portion of the stomach is unremarkable. It shows no wall thickening. No gross ulceration is seen. It is not overly distended. There are no surrounding inflammatory changes. No wall lesions are identified to suggest cancer. The visualized portion of the spleen is unremarkable. It is not enlarged. The pancreas shows normal anatomy. It is not fatty replaced. It shows no lesions. The pancreatic duct is not dilated. The gallbladder is unremarkable. It shows no cholelithiasis. The gallbladder wall is normal in thickness. There is no pericholecystic fluid. The is no acute or chronic inflammation noted. The adrenal glands are unremarkable. There is no enlargement. No lesions are noted. The visualized portion of the liver is unremarkable. It shows no focal masses. The appendix is unremarkable. It shows no evidence of inflammation. No appendicolith is seen. Large right lower anterior abdominal wall hernia containing bowel loops without incarceration or strangulation and the rest of the large and small bowel loops appear unremarkable throughout. The urinary bladder is unremarkable. There is no wall thickening to suggest tumor or inflammation. There are no intraluminal calculi. There are no diverticula. There is no evidence of chronic bladder outlet obstruction. There is no evidence of urinary bladder distention to suggest urinary retention. The other pelvic structures are unremarkable. Soft tissue gangrene throughout the right foot is seen. No bone destruction noted to suggest osteomyelitis. Old healed fractures of the obturator rings seen bilaterally. Fluid collection anterior and lateral to the tibia at mid leg level is seen on the right side measuring 2.6 x 3.7 cm. This may represent a muscle hematoma but the possibility of an abscess must also be entertained. Similar more distally located collection is noted high in the tibia superior to the ankle level also seen, smaller. IMPRESSION: The vascular examination is abnormal. There is a patent stent of the right proximal superficial femoral artery. Right runoff is preserved. On the left side, the posterior tibial artery provides the only runoff. The anterior tibial artery and interosseous artery are occluded. Soft tissue gangrene throughout the right foot is seen. No bone destruction noted to suggest osteomyelitis. Fluid collections of the right lower extremity which may represent abscesses. This study was performed using dose reduction techniques to include automated exposure control and/or adjustment of the mA and/or kV according to patient size.
[2024-09-12] MEDS ORDERED: ATOR40TA69 PO (14:20)
[2024-09-12] MEDS ORDERED: DAPA10TA PO (14:20)
--- NOTE | 2024-09-12 15:56 | NUR ---
INITIAL/DCP HOME Met w pt this afternoon to discuss dcp. Pt admitted w rt foot gas gangrene. EC spouse Raymond Cordero [phone] or son Raymond Borrego @ [phone]. PCP is SUK[facility]AR. Preferred pharmacy is [facility]. Pt states that she lives at home w her spouse and son Niall who is autistic. Pt normally uses a rollator for ambulation and is independent w ADLs. Spouse provides transportation where needed. Pt mentions that she was receiving HH services but is unable to recall name of agency. Discussed poss need for SNF/LTAC. Pt mentions that at this time she prefers to return home at dc. Addendum: 09/12/24 at 1559 by RUBEN CALVIN Amended: Links added.
--- NOTE | 2024-09-12 17:25 | CONS ---
HISTORY OF PRESENT ILLNESS: The patient is a 59-year-old female with new onset of diabetes. She is status post cardiac stents in July and was recently discharged from [facility] in [place]. According to the patient, she underwent an angiogram at that time, but we are unable to get that report. The patient has known peripheral vascular disease, and apparently, her gangrene of the feet began shortly after her catheterization. The patient is here now for worsening pain and infection. Apparently, the patient was scheduled for outpatient surgery, however, was admitted for further evaluation. ALLERGIES: She has no known drug allergies. PAST SURGICAL HISTORY: As above. PHYSICAL EXAMINATION: GENERAL: The patient is awake and alert. VITAL SIGNS: She is afebrile, blood pressure is 112/72, with a heart rate of 72. EXTREMITIES: She has gangrene to the right foot with open wound as well as wet eschars to the anterior surface extending onto the proximal foot. She has a dry eschar to the heel. The foot is warm. There is purulent discharge and palpable eschar to the right heel. She has no significant edema. HEART: Regular rate and rhythm. LABORATORY EXAM: Showed white count of 6.9, hematocrit of 26.9, and platelets are 436. Coags are 0.[address] angio of the lower extremity shows single-vessel runoff to the right foot; on the left side, the posterior tibial artery provides the only runoff. The anterior and interosseous arteries are occluded. The right proximal superficial femoral is stented and open. ASSESSMENT: The patient was offered foot amputation this morning; however, she and her refused and wished to proceed with below-knee amputation, which will be tentatively scheduled tomorrow. The patient is aware. PLAN: Type and cross 2 units of blood, right BKA with femoral block in a.m TID: [id number] RECEIPT: [id number]
--- NOTE | 2024-09-12 18:47 | PN ---
[facility] PROGRESS NOTE Date of Service: Sep 12, 2024 Time of Service: 18:47 SUBJECTIVE: [ ] Ms. Cordero is a 59-year-old female states that she came to the emergency department with a chief complaint of foot pain. Onset was August 20, 2024. Location is to right foot. Duration is constant. Character is described as aching. There was no alleviating factors. Symptoms are aggravated by toes being black. Patient states she was hospitalized about three weeks ago at [facility] and was told that she will eventually need amputation of her toes. Patient denies any associated fever or chills. Right foot x-ray shows osteopenia. No fractures or dislocations. No bone destruction to suggest osteomyelitis. Soft tissue swelling over the dorsum and plantar aspects of the foot with soft tissue air consistent with soft tissue emphysema, soft tissue gangrene. arterial usg -PVD, ct angio abd aorta w/runoff-The vascular examination is abnormal. There is a patent stent of theright proximal superficial femoral artery. Right runoff is preserved. Onthe left side, the posterior tibial artery provides the only runoff. The anterior ti bial artery and interosseous artery are occluded. 09/12- patient was scheduled for suregery today, but coundnt be done as the p atient has h/o coronary stenting x4 on 07/17/2024 and has not been on consistent dual antiplatelet therapy. Although the patient is scheduled for BKA, cardiology must evaluate the possibility of occlusion of the coronary stents. ronel started the patient on aspirin on 81 mg. unable to start the patient on heparin as she has had a drop in her hemoglobin from 11.2 down to 8.3. recheck her hemoglobin in the morning. ordered a 2D echo for further stratification. Further recommendations to follow. REVIEW OF SYSTEMS CONSTITUTIONAL: Denies fevers, chills, or night sweats. No unintentional weight loss reported. NEUROLOGICAL: Denies headache, amaurosis fugax, motor weakness, sensory deficit, vertigo/spinning sensation, gait abnormalities, or tremors. ENT: No hearing loss, otalgia, otorrhea, rhinitis, rhinorrhea, hoarseness, or sore throat. CARDIOVASCULAR: Denies any exertional angina, dyspnea on exertion, orthopnea, paroxysmal nocturnal dyspnea, palpitations, life-threatening arrhythmias, claudication. PULMONARY: Denies any shortness of breath, cough, phlegm/sputum, hemoptysis, pleuritic chest pain. SLEEP: Denies morning headaches, daytime somnolence or napping. Denies difficulty falling asleep, staying asleep, waking from sleep. Denies knowledge of snoring. GASTROINTESTINAL: Denies any type of dysphagia to either liquids or solids. Denies nausea, vomiting, pyrosis, early satiety, abdominal pain, diarrhea, constipation, or changes in stool consistency or caliber. Denies coffee-ground emesis, hematemesis, hematochezia, or melanotic stools. GENITOURINARY: Denies frequency, urgency, nocturia, hematuria or incontinence (Storage/Irritative symptoms.) Low urinary stream, straining to void, urinary intermittency or hesitancy, splitting of the voiding stream, terminal dribbling. ENDOCRINOLOGIC: Denies polyuria, polydipsia, polyphagia or heat/cold intolerances. HEMATOLOGIC: Denies thrombophilia/previous clots, or coagulopathy/bleeding disorders. ONCOLOGIC: Denies personal history of malignancy. DERMATOLOGIC: Denies rashes or pruritus. PSYCHIATRIC: Denies any suicidal or homicidal ideation. Denies hallucinations. PHYSICAL EXAM GENERAL APPEARANCE: The patient is awake, alert, and oriented, in no acute cardiopulmonary distress. NEUROLOGICAL: Cranial nerves II-XII grossly intact. Motor is 5/5 in bilateral upper and lower extremities proximal to distal. No sensory deficits. HEENT: Face is symmetric. Pupils are equal and reactive. Extraocular movements are intact. NECK: Supple. No JVD. No thyromegaly. No submental, submandibular, pre- /postauricular, occipital or supraclavicular lymphadenopathy. CHEST: Normal chest expansion. No Telemetry. LUNGS: Absence of any rales, rhonchi or any wheezing. CARDIOVASCULAR: Regular. S1 and S2 normal. No appreciable rubs, murmurs or gallops. ABDOMEN: Soft, nontender, and nondistended. There is no rebound, voluntary guarding, or rigidity. : Deferred. No Whitfield. EXTREMITIES: Non-edematous and not cyanotic. No clubbing. Good capillary refill. SKIN: No skin breakdown. Vital Signs (last 8hr) Date Time Temp Pulse Resp B/P (MAP) Pulse Ox O2 Delivery O2 Flow Rate FiO2 09/12/24 15:47 98.2 76 17 118/70 98 Room Air 09/12/24 13:42 97 Room Air* 0 21 09/12/24 12:00 98.1 72 17 111/72 98 Room Air LABS: Laboratory: Test 09/12/24 08:00 09/12/24 05:17 09/11/24 21:15 09/11/24 17:53 Range/Units White Blood Count 6.9 4.8-10.8 K/uL Red Blood Count 3.02 L 4.00-5.50 MIL/uL Hemoglobin 8.3 L 12.0-16.0 g/dL Hematocrit 26.9 L 36-48 % Mean Corpuscular Volume 89.1 79-99 fL Mean Corpuscular Hemoglobin 27.5 27.0-33.0 pg Mean Corpuscular Hemoglobin Concent 30.9 L 32.0-36.0 g/dL Red Cell Distribution Width 14.8 11.0-15.5 % Platelet Count 436 H 130-400 K/uL Mean Platelet Volume 9.2 7.5-10.5 fL Segmented Neutrophils % 75 H 40-70 % Lymphocytes % (Manual) 17 L 22-44 % Monocytes % (Manual) 8 2-9 % Nucleated Red Blood Cells 0.0 0.0-0.19 % Differential Comment MANUAL DIFFERENTIAL White Cell Morphology Comment Platelet Morphology Comment SLIGHT INCREASED Red Blood Cell Morphology See comments Sodium Level 140 136-145 mmol/L Potassium Level 3.5 3.5-5.1 mmol/L Chloride Level 107 101-111 mmol/L Carbon Dioxide Level 26 21-32 mmol/L Blood Urea Nitrogen 13 7-18 mg/dL Creatinine 0.5 0.5-1.0 mg/dL Glomerular Filtration Rate Calc 107 >90 mL/min Random Glucose 110 H 70-105 mg/dL Total Calcium 8.6 8.5-10.1 mg/dL Immature Granulocyte % (Auto) 0.3 0-1 % Neutrophils (%) (Auto) 52.0 40.0-77.0 % Lymphocytes (%) (Auto) 34.4 21.0-51.0 % Monocytes (%) (Auto) 9.8 3.0-13.0 % Eosinophils (%) (Auto) 3.1 0.0-8.0 % Basophils (%) (Auto) 0.4 0.0-5.0 % Neutrophils # (Auto) 3.7 1.8-7.7 K/uL Lymphocytes # (Auto) 2.4 1.0-4.8 K/uL Monocytes # (Auto) 0.7 0.1-1.0 K/uL Eosinophils # (Auto) 0.22 0.00-0.70 K/uL Basophils # (Auto) 0.03 0.00-0.20 K/uL Absolute Immature Granulocyte (auto 0.02 0-1 K/uL Prothrombin Time 11.1 9.6-11.6 SEC Prothromb Time International Ratio 0.99 0.85-1.15 Activated Partial Thromboplast Time 29.3 26.3-35.5 SEC Hemoglobin A1c 6.7 H 4.0-6.0 % Estimated Average Glucose (eAG) 146 H 70-126 mg/dL Phosphorus Level 4.0 2.5-4.9 mg/dL Magnesium Level 2.00 1.80-2.40 mg/dL Urine Color YELLOW YELLOW Urine Appearance CLOUDY H CLEAR Urine pH 5.5 5.0-8.0 Urine Specific [place] 1.044 H 1.001-1.031 Urine Protein 20 H NEGATIVE mg/dL Urine Glucose (UA) >=1000 H NEGATIVE mg/dL Urine Ketones 10 H NEGATIVE mg/dL Urine Occult Blood SMALL H NEGATIVE Urine Nitrate 1+ H NEGATIVE Urine Bilirubin NEGATIVE NEGATIVE mg/dL Urine Urobilinogen 0.2 0.2-1.0 mg/dL Urine Leukocyte Esterase 500 H NEGATIVE Martin/uL Urine RBC 11-25 H 0-1 /HPF Urine WBC TNTC H 0-1 /HPF Urine WBC Clumps (Auto) FEW 0-1 /HPF Urine Squamous Epithelial Cells FEW 0-2 /HPF Urine Bacteria FEW None Seen /HPF Lactic Acid Level 1.5 0.8-2.5 mmol/L Current Medications Medications (Trade) Dose Ordered Sig/Toby Route PRN Reason Start Time Stop Time Status Last Admin Dose Admin Acetaminophen (TYLenol 650MG SUPPOSITORY) 650 mg Q6H PRN RC MILD PAIN (1-3) 09/11/24 20:00 10/11/24 19:59 Famotidine (Pepcid 20mg Vial) 20 mg DAILY IV 09/12/24 09:00 10/12/24 08:59 09/12/24 09:14 20 MG Hydralazine HCl (APRESOLine 20MG INJ) 10 mg Q6H PRN IV For:SBP above 160;DBP above 90 09/11/24 20:00 10/11/24 19:59 Insulin Human Regular (humuLIN R 100 UNIT/ML 3ML) INSULIN SLIDING SCAL... ACHS SQ 09/11/24 21:00 10/11/24 20:59 Lactated Ringer's 1,000 ml @ 75 mls/hr [id number] IV 09/11/24 20:00 10/11/24 19:59 09/12/24 12:42 75 MLS/HR Morphine Sulfate (morPHINE 2MG SYG) 2 mg Q4H PRN IVP SEVERE PAIN (7-10) 09/11/24 20:00 09/18/24 19:59 Ondansetron HCl (zoFRAN 4MG INJ) 4 mg Q6H PRN IV NAUSEA/VOMITING 09/11/24 20:00 10/11/24 19:59 Piperacillin Sod/ Tazobactam Sod 50 ml @ 200 mls/hr STAT STAT IVPB 09/11/24 17:33 09/11/24 17:47 DC 09/11/24 18:21 200 MLS/HR Piperacillin Sod/ Tazobactam Sod (Zosyn 3.375gm+NS 50ml) 3.375 gm Q8H IV 09/11/24 02:00 09/21/24 01:59 09/12/24 17:40 3.375 GM Piperacillin Sod/ Tazobactam Sod (Zosyn 3.375gm+NS 50ml) 3.375 gm Q8H IV 09/11/24 20:00 09/11/24 20:15 DC Vancomycin HCl (Vancomycin 750mg) 750 mg Q8H IVPB 09/12/24 05:00 09/22/24 04:59 09/12/24 12:43 750 MG Vancomycin HCl (Vancomycin Protocol) 1 each AD IV 09/11/24 20:00 09/25/24 19:59 DIAGNOSTICS / RADIOLOGY: [ ] ASSESSMENT: [ ] Gas gangrene right foot, POA Right foot necrosis, POA Diabetes mellitius type2 Hypertension] PLAN: [ ] Admit patient to medical floor as inpatient status. Patient will be followed by General surgery Service , . Patient will be followed by Podiatry Service, Dr. Sierra. Keep patient NPO after midnight Check preprocedure labs, CBC, BMP, magnesium, phosphorus, PTT, UA, type and screen, EKG, CXR As needed analgesia with morphine Empiric antibiotic therapy with vancomycin and Zosyn Obtain wound culture, follow up with the results Check blood culture, follow up with the results Arterial ultrasound of bilateral lower extremities noted. Check hemoglobin A1c in a.m. Glucometer checks a.c. and HS Humulin R sliding scale 1/2 dose Consider resuming home medications. GI prophylaxis, famotidine 20 mg IV once daily. DVT prophylaxis, Ramirez's and SCDs avoid anticoagulation at this time due to impending surgical evaluation. ATTESTATION BY PHYSICIAN I have seen and examined the patient. I reviewed the documentation, medical decision making, and treatment plan as noted by the mid-level provider above. I agree with the findings and plan of care. murtaza King MD, AISHWARYA MD Sep 12, 2024 18:47
--- NOTE | 2024-09-12 19:44 | CONS ---
[facility] Cardiology Consultation Note Consultation note dictated for Dr. August Jensen Date/Time of Consultation: 09/12/2024 CHIEF COMPLAINT: Gangrene to the right foot SOURCE: Dr. Ruby OUTPATIENT HOSPITAL NURSING ASSISTANT: Dr. 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 Jefry osorio at [facility]. Afterwards, the patient noticed she had darkening of her right toes. Evaluation was performed and then underwent IVUS guided aspiration thrombectomy and tPA catheter placement on 07/22/2024 and on 07/23/2024 had BARREL LEVELER/stent of right common femoral artery and BARREL LEVELER of right proximal-mid PAM. According to the patient, amputation of the toes was discussed but she recalls that the amputation was not done because her heart was weak and the decision was made to wait. The patient was then discharged on 08/20/2024. Since home, the patient states that she has been taking only aspirin through the end of July. She states that no other heart medications were prescribed to her. She states the only other medications she has been taking are the dapagliflozin and atorvastatin. She noticed progressive darkening and redness to her right foot, thus made an appointment to see her primary care physician at [facility]. At that time, she was told to return to the emergency room for treatment of her gangrenous right foot. She presents with gangrene to the right foot which has been increasing proximally and demarcated to the area of the Chop[place] joint. Dr. Sierra was consulted and recommended amputation at the [place] joint. After discussion, the patient and her opted to proceed with a below the knee amputation to try to avoid healing complications. Thus, Dr. Ruby was consulted and planned for BKA tomorrow. We were consulted to provide further insight into the gangrenous foot. She denies any chest pain, chest pressure, chest tightness, shortness of breath, palpitations, dizziness or syncope. REVIEW OF SYSTEMS: Constitutional: Negative for fever,chills, and weight loss Eyes: Negative for injury, pain,redness, and discharge ENT: Negative for injury, pain or swelling, she does complain of right ear hearing loss Cardiovascular: Negative for chest pain, palpitations, and edema Respiratory: Negative for shortness of breath, cough, and wheezing, Abdomen/GI: Negative for abdominal pain, nausea, vomiting, diarrhea, constipation, or melena Back: Negative for injury and pain : Negative for injury, bleeding and discharge MS/Extremity: Negative for injury and deformity other than right foot Skin: right foot weeping and erythema Neuro: Negative for headache, weakness, numbness, tingling, and seizure PAST MEDICAL HISTORY: CAD, PAD, hypertension, diabetes mellitus PAST SURGICAL HISTORY: stent placement FAMILY HISTORY: CAD, diabetes mellitus, hypertension SOCIAL HISTORY: Denies smoking tobacco, drinking alcohol, or illicit drugs Coded Allergies: No Known Drug Allergies (Unverified Allergy, Unknown, 09/06/18) Reported Medications Dapagliflozin Propanediol (Farxiga) 10 Mg Tablet, 10 MG PO DAILY, TAB 09/12/24 Atorvastatin Calcium (LIPITOR) 40 Mg Tablet, 1 TAB PO HS for 30 Days, #30 TAB 0 Refills 09/12/24 Discontinued Scripts Metformin HCl (Metformin HCl) 500 Mg Tablet, 500 MG PO BID for 30 Days, #60 TAB Prov:TOMEKA SCHULTE Kaye [facility] 09/06/18 PHYSICAL EXAMINATION: GENERAL: [Resting comfortably, no acute distress.] HEENT: [Atraumatic. Hearing is intact. No facial asymmetry, nasal discharge, icterus or lid lag.] NECK: [Symmetric. Midline trachea. No bruits noted bilaterally.] CARDIOVASCULAR: [Rhythm and rate regular. 2/6 systolic murmur] No edema. Decreased pulses. RESPIRATORY: [Lungs clear to the bases. No retractions, wheezes or rhonchi.] GASTROINTESTINAL: [Benign, soft, nontender, nondistended.] MUSCULOSKELETAL: [No amputations. Range of motion is grossly normal.] SKIN: [Right foot is bandaged.] NEUROLOGIC: [No tremors. Speech is clear.] PSYCHIATRY: [Alert and oriented x 3. Cooperative and pleasant.] Vital Signs (last 8hr) Date Time Temp Pulse Resp B/P (MAP) Pulse Ox O2 Delivery O2 Flow Rate FiO2 09/12/24 15:47 98.2 76 17 118/70 98 Room Air 09/12/24 13:42 97 Room Air* 0 21 09/12/24 12:00 98.1 72 17 111/72 98 Room Air Hematology Labs: Test 09/12/24 08:00 09/12/24 05:17 Range/Units White Blood Count 6.9 4.8-10.8 K/uL Red Blood Count 3.02 L 4.00-5.50 MIL/uL Hemoglobin 8.3 L 12.0-16.0 g/dL Hematocrit 26.9 L 36-48 % Mean Corpuscular Volume 89.1 79-99 fL Mean Corpuscular Hemoglobin 27.5 27.0-33.0 pg Mean Corpuscular Hemoglobin Concent 30.9 L 32.0-36.0 g/dL Red Cell Distribution Width 14.8 11.0-15.5 % Platelet Count 436 H 130-400 K/uL Mean Platelet Volume 9.2 7.5-10.5 fL Segmented Neutrophils % 75 H 40-70 % Lymphocytes % (Manual) 17 L 22-44 % Monocytes % (Manual) 8 2-9 % Nucleated Red Blood Cells 0.0 0.0-0.19 % Differential Comment MANUAL DIFFERENTIAL White Cell Morphology Comment Platelet Morphology Comment SLIGHT INCREASED Red Blood Cell Morphology See comments Immature Granulocyte % (Auto) 0.3 0-1 % Neutrophils (%) (Auto) 52.0 40.0-77.0 % Lymphocytes (%) (Auto) 34.4 21.0-51.0 % Monocytes (%) (Auto) 9.8 3.0-13.0 % Eosinophils (%) (Auto) 3.1 0.0-8.0 % Basophils (%) (Auto) 0.4 0.0-5.0 % Neutrophils # (Auto) 3.7 1.8-7.7 K/uL Lymphocytes # (Auto) 2.4 1.0-4.8 K/uL Monocytes # (Auto) 0.7 0.1-1.0 K/uL Eosinophils # (Auto) 0.22 0.00-0.70 K/uL Basophils # (Auto) 0.03 0.00-0.20 K/uL Absolute Immature Granulocyte (auto 0.02 0-1 K/uL Chemistry Labs: Test 09/12/24 08:00 09/12/24 05:17 09/11/24 17:53 Range/Units Sodium Level 140 136-145 mmol/L Potassium Level 3.5 3.5-5.1 mmol/L Chloride Level 107 101-111 mmol/L Carbon Dioxide Level 26 21-32 mmol/L Blood Urea Nitrogen 13 7-18 mg/dL Creatinine 0.5 0.5-1.0 mg/dL Glomerular Filtration Rate Calc 107 >90 mL/min Random Glucose 110 H 70-105 mg/dL Total Calcium 8.6 8.5-10.1 mg/dL Hemoglobin A1c 6.7 H 4.0-6.0 % Estimated Average Glucose (eAG) 146 H 70-126 mg/dL Phosphorus Level 4.0 2.5-4.9 mg/dL Magnesium Level 2.00 1.80-2.40 mg/dL Lactic Acid Level 1.5 0.8-2.5 mmol/L Coagulation Labs: Test 09/12/24 05:17 Range/Units Prothrombin Time 11.1 9.6-11.6 SEC Prothromb Time International Ratio 0.99 0.85-1.15 Activated Partial Thromboplast Time 29.3 26.3-35.5 SEC Current Medications Medications (Trade) Dose Ordered Sig/Toby Route Start Time Stop Time Status Last Admin Dose Admin Aspirin (Aspirin 81mg Ec Tab) 81 mg DAILY PO 09/13/24 09:00 10/13/24 08:59 Famotidine (Pepcid 20mg Vial) 20 mg DAILY IV 09/12/24 09:00 10/12/24 08:59 09/12/24 09:14 20 MG Insulin Human Regular (humuLIN R 100 UNIT/ML 3ML) INSULIN SLIDING SCAL... ACHS SQ 09/11/24 21:00 10/11/24 20:59 Lactated Ringer's 1,000 ml @ 75 mls/hr [id number] IV 09/11/24 20:00 10/11/24 19:59 09/12/24 12:42 75 MLS/HR Piperacillin Sod/ Tazobactam Sod 50 ml @ 200 mls/hr STAT STAT IVPB 09/11/24 17:33 12/27/24 17:47 DC 09/11/24 18:21 200 MLS/HR Piperacillin Sod/ Tazobactam Sod (Zosyn 3.375gm+NS 50ml) 3.375 gm Q8H IV 09/11/24 02:00 09/21/24 01:59 09/12/24 17:40 3.375 GM Piperacillin Sod/ Tazobactam Sod (Zosyn 3.375gm+NS 50ml) 3.375 gm Q8H IV 09/11/24 20:00 09/11/24 20:15 DC Vancomycin HCl (Vancomycin 750mg) 750 mg Q8H IVPB 09/12/24 05:00 09/22/24 04:59 09/12/24 12:43 750 MG Vancomycin HCl (Vancomycin Protocol) 1 each AD IV 09/11/24 20:00 09/25/24 19:59 EKG: Sinus rhythm Probable anteroseptal infarct, old Compared to ECG 09/05/2018 20:01:55 Myocardial infarct finding now present T-wave abnormality no longer present RADIOLOGY: REASON: cellulitis ORDERING PHYSICIAN: BRADEN VERAS JIGSAWYER PROCEDURE: FT 3VW RT - FOOT COMP 3+VWS RT Exam Type: FOOT COMP 3+VWS RT Clinical Information: cellulitis Comparison: None Findings and impression: Osteopenia. No fractures or dislocations. No bone destruction to suggest osteomyelitis. Soft tissue swelling over the dorsum and plantar aspects of the foot, with soft tissue air consistent with soft tissue emphysema, soft tissue gangrene. Exam Type: US ARTERIAL BILAT LOW EXT DUPL Clinical Information: right foot necrosis Comparison: None Findings: Diffuse bilateral plaque is identified. There are normal triphasic waveforms of the right common femoral artery through the distal superficial femoral artery, left common femoral artery through the popliteal artery, left posterior tibial artery. There are biphasic waveforms of the left anterior tibial artery, left dorsalis pedis artery, consistent with moderate nonocclusive hemodynamically significant disease. There are monophasic abnormal waveforms of the right popliteal artery, right posterior tibial artery consistent with severe nonocclusive disease. The right anterior tibial artery and dorsalis pedis artery are occluded. IMPRESSION: Peripheral vascular disease as noted. Exam Type: FOOT COMP 3+VWS RT Clinical Information: cellulitis Comparison: None Findings and impression: Osteopenia. No fractures or dislocations. No bone destruction to suggest osteomyelitis. Soft tissue swelling over the dorsum and plantar aspects of the foot, with soft tissue air consistent with soft tissue emphysema, soft tissue gangrene. 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 Although the patient is scheduled for BKA, we must evaluate the possibility of occlusion of the coronary stents. We will start the patient on aspirin on 81 mg. We are unable to start the patient on heparin as she has had a drop in her hemoglobin from 11.2 down to 8.3. We will recheck her hemoglobin in the morning. We will also order a 2D echo for further stratification. Further recommendations to follow. This case has been discussed with Dr. August Jensen. SHRUTI GUZMAN Sep 12, 2024 19:44
[2024-09-12] MEDS: morPHINE 2 MG SYG IVP PRN (21:56)
--- NOTE | 2024-09-12 22:00 | NUR ---
CHEST PAIN PT C/O OF CHEST PAIN BP 137/67, HR 70, SPO2 99% ON ROOM AIR. DR HONG PAGED NEW ORDERS GIVEN AND CARRIED OUT.
--- NOTE | 2024-09-12 22:30 | NUR ---
ORDERS FOR NITRO PASTE, TELE #[id number] PLACED PT RUNNING SR. PT STATES CHEST PAIN HAS STOPPED.
[2024-09-12] MEDS: NITROGLYCERIN 1GM OINT 1 INCH/1GM TD SCH (22:57)
[2024-09-13] VITALS (8 sets, daily range): BP systolic 106–123; BP diastolic 58–67; PULSE 69–78; RESP 18–20; TEMP 97.8–99.3; O2SAT 96–97
[2024-09-13 04:31] LABS: BASOPHILS # (AUTO) 0.04 K/uL (0.00-0.20); BASOPHILS % (AUTO) 0.5 % (0.0-5.0); EOSINOPHILS # (AUTO) 0.17 K/uL (0.00-0.70); EOSINOPHILS % (AUTO) 2.3 % (0.0-8.0); HEMATOCRIT 28.7 % (36-48); IMMATURE GRANULOCYTE ABSOLUTE 0.03 K/uL (0-1); LYMPHOCYTES # (AUTO) 2.2 K/uL (1.0-4.8); LYMPHOCYTES % (AUTO) 29.4 % (21.0-51.0); MEAN CORPUSCULAR HEMOGLOBIN 26.6 pg (27.0-33.0); MEAN CORPUSCULAR HGB CONC 29.6 g/dL (32.0-36.0); MONOCYTES # (AUTO) 0.5 K/uL (0.1-1.0); MONOCYTES % (AUTO) 6.2 % (3.0-13.0); NEUTROPHILS # (AUTO) 4.6 K/uL (1.8-7.7); NEUTROPHILS % (AUTO) 61.2 % (40.0-77.0); PLATELET COUNT (AUTO) 460 K/uL (130-400); RED BLOOD CELL COUNT(AUTO) 3.19 MIL/uL (4.00-5.50); RED CELL DISTRIBUTION WIDTH 14.7 % (11.0-15.5); WHITE BLOOD COUNT (AUTO) 7.5 K/uL (4.8-10.8)
[2024-09-13] MEDS: ASPIRIN 81 MG EC TAB PO SCH (08:39)
--- NOTE | 2024-09-13 11:00 | PN ---
PROGRESS NOTE PROBLEM LIST: Right lower extremity ischemia Severe right lower extremity peripheral arterial disease documented July 2024 with a thrombosed right common femoral artery status post thrombectomy angioplasty stent placement to right common femoral artery right external iliac artery with placement of an 8 mm x 40 mm self expanding stent to right common femoral artery and angioplasty only to proximal mid right anterior tibial artery 07/23/2024 Diabetes mellitus Hypertension Dyslipidemia Ischemic cardiomyopathy Status post angioplasty and stent placement to proximal LAD with the use of a 3 mm x 20 mm synergy stent as well as proximal and distal left circumflex with Synergy stents placed 07/17/2024 Diabetes mellitus with angiopathy INTERIM HISTORY OF PRESENT ILLNESS: We were asked to see patient yesterday in consultation which was performed. We are awaiting 2D echocardiography for final recommendations regarding risk stratification. It should be noted that there has been significant concerns related to medication compliance as patient states she has not been on dual antiplatelet agents at home but taking aspirin p.r.n.. Fortunately patient's EKG does not suggest significant Q-waves in the anterior leads but would like to wait 2D echocardiography which will be performed today. She currently did have some chest pain last night cardiac enzymes currently are pending. REVIEW OF SYSTEMS: No fever, headache, chest pain, abdominal pain, nausea, vomiting, or diarrhea. VITAL SIGNS Vital Signs Date Time Temp Pulse Resp B/P (MAP) Pulse Ox O2 Delivery O2 Flow Rate FiO2 09/13/24 08:06 97 Room Air* 0 21 09/13/24 07:51 78 20 123/67 09/13/24 04:00 98.6 Laboratory Tests 09/13/24 04:00 LABS/MEDS Laboratory Tests Test 09/12/24 20:15 09/13/24 04:00 Vancomycin Level Trough 20.5 UG/ML (10.0-20.0) H 11.2 UG/ML (10.0-20.0) # White Blood Count 7.5 K/uL (4.8-10.8) Red Blood Count 3.19 MIL/uL (4.00-5.50) L Hemoglobin 8.5 g/dL (12.0-16.0) L Hematocrit 28.7 % (36-48) L Mean Corpuscular Volume 90.0 fL (79-99) Mean Corpuscular Hemoglobin 26.6 pg (27.0-33.0) L Mean Corpuscular Hemoglobin Concent 29.6 g/dL (32.0-36.0) L Red Cell Distribution Width 14.7 % (11.0-15.5) Platelet Count 460 K/uL (130-400) H Mean Platelet Volume 9.5 fL (7.5-10.5) Immature Granulocyte % (Auto) 0.4 % (0-1) Neutrophils (%) (Auto) 61.2 % (40.0-77.0) Lymphocytes (%) (Auto) 29.4 % (21.0-51.0) Monocytes (%) (Auto) 6.2 % (3.0-13.0) Eosinophils (%) (Auto) 2.3 % (0.0-8.0) Basophils (%) (Auto) 0.5 % (0.0-5.0) Neutrophils # (Auto) 4.6 K/uL (1.8-7.7) Lymphocytes # (Auto) 2.2 K/uL (1.0-4.8) Monocytes # (Auto) 0.5 K/uL (0.1-1.0) Eosinophils # (Auto) 0.17 K/uL (0.00-0.70) Basophils # (Auto) 0.04 K/uL (0.00-0.20) Absolute Immature Granulocyte (auto 0.03 K/uL (0-1) Nucleated Red Blood Cells 0.0 % (0.0-0.19) Current Medications Acetaminophen 1,000 mg ONCE ONCE PO Last administered on 09/11/24at 18:22; Start 09/11/24 at 18:00; Stop 09/11/24 at 18:01; Status DC Piperacillin Sod/ Tazobactam Sod 50 ml @ 200 mls/hr STAT STAT IVPB Last administered on 09/11/24at 18:21; Start 09/11/24 at 17:33; Stop 09/11/24 at 17:47; Status DC Vancomycin HCl 250 ml @ 125 mls/hr ONCE ONCE IV Last administered on 09/11/24at 18:51; Start 09/11/24 at 18:00; Stop 09/11/24 at 19:59; Status DC Sodium Chloride 1,000 ml @ 125 mls/hr ONCE ONCE IV Last administered on 09/11/24at 18:21; Start 09/11/24 at 18:00; Stop 09/12/24 at 01:59; Status DC Lactated Ringer's 1,000 ml @ 75 mls/hr [id number] IV Last administered on 09/12/24at 12:42; Start 09/11/24 at 20:00; Stop 10/11/24 at 19:59 Famotidine 20 mg DAILY IV Last administered on 09/13/24at 08:39; Start 09/12/24 at 09:00; Stop 10/12/24 at 08:59 Piperacillin Sod/ Tazobactam Sod 3.375 gm Q8H IV; Start 09/11/24 at 20:00; Stop 09/11/24 at 20:15; Status DC Vancomycin HCl 1 each AD IV; Start 09/11/24 at 20:00; Stop 09/25/24 at 19:59 Ondansetron HCl 4 mg Q6H PRN IV; Start 09/11/24 at 20:00; Stop 10/11/24 at 19:59 Morphine Sulfate 2 mg Q4H PRN IVP Last administered on 09/12/24at 21:56; Start 09/11/24 at 20:00; Stop 09/18/24 at 19:59 Hydralazine HCl 10 mg Q6H PRN IV; Start 09/11/24 at 20:00; Stop 10/11/24 at 19:59 Acetaminophen 650 mg Q6H PRN RC; Start 09/11/24 at 20:00; Stop 10/11/24 at 19:59 Insulin Human Regular INSULIN SLIDING SCAL... ACHS SQ Last administered on 09/12/24at 21:29; Start 09/11/24 at 21:00; Stop 10/11/24 at 20:59 Piperacillin Sod/ Tazobactam Sod 3.375 gm Q8H IV Last administered on 09/13/24at 09:43; Start 09/11/24 at 02:00; Stop 09/21/24 at 01:59 Vancomycin HCl 250 ml @ 125 mls/hr ONCE ONCE IV; Start 09/11/24 at 21:00; Stop 09/11/24 at 22:59; Status DC Vancomycin HCl 750 mg Q8H IVPB Last administered on 09/13/24at 05:30; Start 09/12/24 at 05:00; Stop 09/22/24 at 04:59 Iohexol 35,000 mg STK-MED ONCE IV; Start 09/12/24 at 11:05; Stop 09/12/24 at 11:06; Status DC Aspirin 81 mg DAILY PO Last administered on 09/13/24at 08:39; Start 09/13/24 at 09:00; Stop 10/13/24 at 08:59 Nitroglycerin 0.5 inch Q8H TD Last administered on 09/13/24at 06:15; Start 09/12/24 at 22:30; Stop 10/12/24 at 22:29 PHYSICAL EXAMINATION: GENERAL: No acute distress. HEENT: Normocephalic, atraumatic. CARDIAC: Positive S1 and S2. No murmurs. LUNGS: Clear to auscultation bilaterally. ABDOMEN: Bowel sounds present, soft, nontender. EXTREMITIES: Mild edema noted right leg more so than left foot is cool to touch on right NEUROLOGIC: Cranial nerves 2-12 grossly intact. PSYCHIATRIC: Calm. TELEMETRY: [] Sinus rhythm ASSESSMENT: [] Ischemic right lower extremity pending BKA Ischemic cardiomyopathy Multivessel coronary intervention done July 17, 2024 involving LAD and left circumflex Diabetes mellitus PLAN: [] We are awaiting 2D echocardiography final recommendations to follow pending results of study. Should be noted that patient is significantly anemic as well and is the reason why we are not using or bridging anticoagulation with heparin or Lovenox prior to BKA. Patient should be placed on dual antiplatelet therapy as soon as possible and we have initiated aspirin therapy at this time. All questions have been answered. AUBREY HONG MD Sep 13, 2024 11:00
--- NOTE | 2024-09-13 11:53 | PN ---
Patient canceled today as she was not cleared for BKA by Cardiology. Awaiting clearance and will schedule BKA discussed with patient who is aware. Vitals/Labs Vital Signs Date Time Temp Pulse Resp B/P (MAP) Pulse Ox O2 Delivery O2 Flow Rate FiO2 09/13/24 11:31 98.1 74 20 117/61 100 Room Air 21 09/13/24 08:06 0 Laboratory Tests 09/13/24 04:00 Medications Current Medications Acetaminophen 1,000 mg ONCE ONCE PO Last administered on 09/11/24at 18:22; Start 09/11/24 at 18:00; Stop 09/11/24 at 18:01; Status DC Piperacillin Sod/ Tazobactam Sod 50 ml @ 200 mls/hr STAT STAT IVPB Last administered on 09/11/24at 18:21; Start 09/11/24 at 17:33; Stop 09/11/24 at 17:47; Status DC Vancomycin HCl 250 ml @ 125 mls/hr ONCE ONCE IV Last administered on 09/11/24at 18:51; Start 09/11/24 at 18:00; Stop 09/11/24 at 19:59; Status DC Sodium Chloride 1,000 ml @ 125 mls/hr ONCE ONCE IV Last administered on 09/11/24at 18:21; Start 09/11/24 at 18:00; Stop 09/12/24 at 01:59; Status DC Lactated Ringer's 1,000 ml @ 75 mls/hr [id number] IV Last administered on 09/12/24at 12:42; Start 09/11/24 at 20:00; Stop 10/11/24 at 19:59 Famotidine 20 mg DAILY IV Last administered on 09/13/24at 08:39; Start 09/12/24 at 09:00; Stop 10/12/24 at 08:59 Piperacillin Sod/ Tazobactam Sod 3.375 gm Q8H IV; Start 09/11/24 at 20:00; Stop 09/11/24 at 20:15; Status DC Vancomycin HCl 1 each AD IV; Start 09/11/24 at 20:00; Stop 09/25/24 at 19:59 Ondansetron HCl 4 mg Q6H PRN IV; Start 09/11/24 at 20:00; Stop 10/11/24 at 19:59 Morphine Sulfate 2 mg Q4H PRN IVP Last administered on 09/12/24at 21:56; Start 09/11/24 at 20:00; Stop 09/18/24 at 19:59 Hydralazine HCl 10 mg Q6H PRN IV; Start 09/11/24 at 20:00; Stop 10/11/24 at 19:59 Acetaminophen 650 mg Q6H PRN RC; Start 09/11/24 at 20:00; Stop 10/11/24 at 19:59 Insulin Human Regular INSULIN SLIDING SCAL... ACHS SQ Last administered on 09/12/24at 21:29; Start 09/11/24 at 21:00; Stop 10/11/24 at 20:59 Piperacillin Sod/ Tazobactam Sod 3.375 gm Q8H IV Last administered on 09/13/24at 09:43; Start 09/11/24 at 02:00; Stop 09/21/24 at 01:59 Vancomycin HCl 250 ml @ 125 mls/hr ONCE ONCE IV; Start 09/11/24 at 21:00; Stop 09/11/24 at 22:59; Status DC Vancomycin HCl 750 mg Q8H IVPB Last administered on 09/13/24at 05:30; Start 09/12/24 at 05:00; Stop 09/22/24 at 04:59 Iohexol 35,000 mg STK-MED ONCE IV; Start 09/12/24 at 11:05; Stop 09/12/24 at 11:06; Status DC Aspirin 81 mg DAILY PO Last administered on 09/13/24at 08:39; Start 09/13/24 at 09:00; Stop 10/13/24 at 08:59 Nitroglycerin 0.5 inch Q8H TD Last administered on 09/13/24at 06:15; Start 09/12/24 at 22:30; Stop 10/12/24 at 22:29 RJ BROWNE MD Sep 13, 2024 11:53
--- NOTE | 2024-09-13 13:31 | PN ---
[facility] PROGRESS NOTE Date of Service: Sep 13, 2024 Time of Service: 13:25 SUBJECTIVE: Ms. Cordero is a 59-year-old female states that she came to the emergency department with a chief complaint of foot pain. Onset was August 20, 2024. Location is to right foot. Duration is constant. Character is described as aching. There was no alleviating factors. Symptoms are aggravated by toes being black. Patient states she was hospitalized about three weeks ago at [facility] and was told that she will eventually need amputation of her toes. Patient denies any associated fever or chills. Right foot x-ray shows osteopenia. No fractures or dislocations. No bone destruction to suggest osteomyelitis. Soft tissue swelling over the dorsum and plantar aspects of the foot with soft tissue air consistent with soft tissue emphysema, soft tissue gangrene. arterial usg -PVD, ct angio abd aorta w/runoff-The vascular examination is abnormal. There is a patent stent of theright proximal superficial femoral artery. Right runoff is preserved. Onthe left side, the posterior tibial artery provides the only runoff. The anterior tibial artery and interosseous artery are occluded. 09/12- patient was scheduled for surgery today, but couldn't be done as the patient has h/o coronary stenting x4 on 07/17/2024 and has not been on consistent dual antiplatelet therapy. Although the patient is scheduled for BKA, cardiology must evaluate the possibility of occlusion of the coronary stents. cardio started the patient on aspirin on 81 mg. unable to start the patient on heparin as she has had a drop in her hemoglobin from 11.2 down to 8.3. recheck her hemoglobin in the morning. ordered a 2D echo for further stratification. Further recommendations to follow. 09/13 - patient seen at bedside. No overnight acute events. Patient awaiting 2D echo results for cardiac clearance for scheduled BKA. Possible BKA scheduled for Saturday. Holding the heparin drip due to drop in hemoglobin. Patient to continue on aspirin. We will continue to follow recommendations per consult. Patient's electrolytes within normal limits hemoglobin 8 white count 7.5 vanco mycin trough 11.2. Patient continues on vancomycin and Zosyn. REVIEW OF SYSTEMS CONSTITUTIONAL: Denies fevers, chills, or night sweats. No unintentional weight loss reported. NEUROLOGICAL: Denies headache, amaurosis fugax, motor weakness, sensory deficit, vertigo/spinning sensation, gait abnormalities, or tremors. ENT: No hearing loss, otalgia, otorrhea, rhinitis, rhinorrhea, hoarseness, or sore throat. CARDIOVASCULAR: Denies any exertional angina, dyspnea on exertion, orthopnea, paroxysmal nocturnal dyspnea, palpitations, life-threatening arrhythmias, claudication. PULMONARY: Denies any shortness of breath, cough, phlegm/sputum, hemoptysis, pleuritic chest pain. SLEEP: Denies morning headaches, daytime somnolence or napping. Denies difficulty falling asleep, staying asleep, waking from sleep. Denies knowledge of snoring. GASTROINTESTINAL: Denies any type of dysphagia to either liquids or solids. Denies nausea, vomiting, pyrosis, early satiety, abdominal pain, diarrhea, constipation, or changes in stool consistency or caliber. Denies coffee-ground emesis, hematemesis, hematochezia, or melanotic stools. GENITOURINARY: Denies frequency, urgency, nocturia, hematuria or incontinence (Storage/Irritative symptoms.) Low urinary stream, straining to void, urinary intermittency or hesitancy, splitting of the voiding stream, terminal dribbling. ENDOCRINOLOGIC: Denies polyuria, polydipsia, polyphagia or heat/cold intolerances. HEMATOLOGIC: Denies thrombophilia/previous clots, or coagulopathy/bleeding disorders. ONCOLOGIC: Denies personal history of malignancy. DERMATOLOGIC: Denies rashes or pruritus. PSYCHIATRIC: Denies any suicidal or homicidal ideation. Denies hallucinations. PHYSICAL EXAM GENERAL APPEARANCE: The patient is awake, alert, and oriented, in no acute cardiopulmonary distress. NEUROLOGICAL: Cranial nerves II-XII grossly intact. Motor is 5/5 in bilateral upper and lower extremities proximal to distal. No sensory deficits. HEENT: Face is symmetric. Pupils are equal and reactive. Extraocular movements are intact. NECK: Supple. No JVD. No thyromegaly. No submental, submandibular, pre-/postauricular, occipital or supraclavicular lymphadenopathy. CHEST: Normal chest expansion. No Telemetry. LUNGS: Absence of any rales, rhonchi or any wheezing. CARDIOVASCULAR: Regular. S1 and S2 normal. No appreciable rubs, murmurs or gallops. ABDOMEN: Soft, nontender, and nondistended. There is no rebound, voluntary guarding, or rigidity. : Deferred. No [place]field. EXTREMITIES: Non-edematous and not cyanotic. No clubbing. Good capillary refill. SKIN: No skin breakdown. Vital Signs (last 8hr) Date Time Temp Pulse Resp B/P (MAP) Pulse Ox O2 Delivery O2 Flow Rate FiO2 09/13/24 11:31 98.1 74 20 117/61 100 Room Air 21 09/13/24 08:06 97 Room Air* 0 21 09/13/24 07:51 78 20 123/67 97 Room Air 21 LABS: Laboratory: Test 09/13/24 10:43 09/13/24 04:00 09/12/24 08:00 09/12/24 05:17 Range/Units Total Creatine Kinase 44 21-232 U/L Troponin I High Sensitivity 21.0 4-50 ng/L White Blood Count 7.5 4.8-10.8 K/uL Red Blood Count 3.19 L 4.00-5.50 MIL/uL Hemoglobin 8.5 L 12.0-16.0 g/dL Hematocrit 28.7 L 36-48 % Mean Corpuscular Volume 90.0 79-99 fL Mean Corpuscular Hemoglobin 26.6 L 27.0-33.0 pg Mean Corpuscular Hemoglobin Concent 29.6 L 32.0-36.0 g/dL Red Cell Distribution Width 14.7 11.0-15.5 % Platelet Count 460 H 130-400 K/uL Mean Platelet Volume 9.5 7.5-10.5 fL Immature Granulocyte % (Auto) 0.4 0-1 % Neutrophils (%) (Auto) 61.2 40.0-77.0 % Lymphocytes (%) (Auto) 29.4 21.0-51.0 % Monocytes (%) (Auto) 6.2 3.0-13.0 % Eosinophils (%) (Auto) 2.3 0.0-8.0 % Basophils (%) (Auto) 0.5 0.0-5.0 % Neutrophils # (Auto) 4.6 1.8-7.7 K/uL Lymphocytes # (Auto) 2.2 1.0-4.8 K/uL Monocytes # (Auto) 0.5 0.1-1.0 K/uL Eosinophils # (Auto) 0.17 0.00-0.70 K/uL Basophils # (Auto) 0.04 0.00-0.20 K/uL Absolute Immature Granulocyte (auto 0.03 0-1 K/uL Nucleated Red Blood Cells 0.0 0.0-0.19 % Vancomycin Level Trough 11.2 # 10.0-20.0 UG/ML Segmented Neutrophils % 75 H 40-70 % Lymphocytes % (Manual) 17 L 22-44 % Monocytes % (Manual) 8 2-9 % Differential Comment MANUAL DIFFERENTIAL White Cell Morphology Comment Platelet Morphology Comment SLIGHT INCREASED Red Blood Cell Morphology See comments Sodium Level 140 136-145 mmol/L Potassium Level 3.5 3.5-5.1 mmol/L Chloride Level 107 101-111 mmol/L Carbon Dioxide Level 26 21-32 mmol/L Blood Urea Nitrogen 13 7-18 mg/dL Creatinine 0.5 0.5-1.0 mg/dL Glomerular Filtration Rate Calc 107 >90 mL/min Random Glucose 110 H 70-105 mg/dL Total Calcium 8.6 8.5-10.1 mg/dL Prothrombin Time 11.1 9.6-11.6 SEC Prothromb Time International Ratio 0.99 0.85-1.15 Activated Partial Thromboplast Time 29.3 26.3-35.5 SEC Hemoglobin A1c 6.7 H 4.0-6.0 % Estimated Average Glucose (eAG) 146 H 70-126 mg/dL Phosphorus Level 4.0 2.5-4.9 mg/dL Magnesium Level 2.00 1.80-2.40 mg/dL Test 09/11/24 21:15 09/11/24 17:53 Range/Units Urine Color YELLOW YELLOW Urine Appearance CLOUDY H CLEAR Urine pH 5.5 5.0-8.0 Urine Specific [place] 1.044 H 1.001-1.031 Urine Protein 20 H NEGATIVE mg/dL Urine Glucose (UA) >=1000 H NEGATIVE mg/dL Urine Ketones 10 H NEGATIVE mg/dL Urine Occult Blood SMALL H NEGATIVE Urine Nitrate 1+ H NEGATIVE Urine Bilirubin NEGATIVE NEGATIVE mg/dL Urine Urobilinogen 0.2 0.2-1.0 mg/dL Urine Leukocyte Esterase 500 H NEGATIVE Martin/uL Urine RBC 11-25 H 0-1 /HPF Urine WBC TNTC H 0-1 /HPF Urine WBC Clumps (Auto) FEW 0-1 /HPF Urine Squamous Epithelial Cells FEW 0-2 /HPF Urine Bacteria FEW None Seen /HPF Lactic Acid Level 1.5 0.8-2.5 mmol/L Current Medications Medications (Trade) Dose Ordered Sig/Toby Route PRN Reason Start Time Stop Time Status Last Admin Dose Admin Acetaminophen (TYLenol 650MG SUPPOSITORY) 650 mg Q6H PRN RC MILD PAIN (1-3) 09/11/24 20:00 10/11/24 19:59 Aspirin (Aspirin 81mg Ec Tab) 81 mg DAILY PO 09/13/24 09:00 10/13/24 08:59 09/13/24 08:39 81 MG Famotidine (Pepcid 20mg Vial) 20 mg DAILY IV 09/12/24 09:00 10/12/24 08:59 09/13/24 08:39 20 MG Hydralazine HCl (APRESOLine 20MG INJ) 10 mg Q6H PRN IV For:SBP above 160;DBP above 90 09/11/24 20:00 10/11/24 19:59 Insulin Human Regular (humuLIN R 100 UNIT/ML 3ML) INSULIN SLIDING SCAL... ACHS SQ 09/11/24 21:00 10/11/24 20:59 09/12/24 21:29 2 UNIT Lactated Ringer's 1,000 ml @ 75 mls/hr [id number] IV 09/11/24 20:00 10/11/24 19:59 09/12/24 12:42 75 MLS/HR Morphine Sulfate (morPHINE 2MG SYG) 2 mg Q4H PRN IVP SEVERE PAIN (7-10) 09/11/24 20:00 09/18/24 19:59 09/12/24 21:56 2 MG Nitroglycerin (Nitroglycerin 1gm Oint) 0.5 inch Q8H TD 09/12/24 22:30 10/12/24 22:29 09/13/24 06:15 0.5 INCH Ondansetron HCl (zoFRAN 4MG INJ) 4 mg Q6H PRN IV NAUSEA/VOMITING 09/11/24 20:00 10/11/24 19:59 Piperacillin Sod/ Tazobactam Sod 50 ml @ 200 mls/hr STAT STAT IVPB 09/11/24 17:33 09/11/24 17:47 DC 09/11/24 18:21 200 MLS/HR Piperacillin Sod/ Tazobactam Sod (Zosyn 3.375gm+NS 50ml) 3.375 gm Q8H IV 09/11/24 02:00 09/21/24 01:59 09/13/24 09:43 3.375 GM Piperacillin Sod/ Tazobactam Sod (Zosyn 3.375gm+NS 50ml) 3.375 gm Q8H IV 09/11/24 20:00 09/11/24 20:15 DC Vancomycin HCl (Vancomycin 750mg) 750 mg Q8H IVPB 09/12/24 05:00 09/22/24 04:59 09/13/24 05:30 750 MG Vancomycin HCl (Vancomycin Protocol) 1 each AD IV 09/11/24 20:00 09/25/24 19:59 DIAGNOSTICS / RADIOLOGY: [ ] ASSESSMENT: Gas gangrene right foot, POA Right foot necrosis, POA Diabetes mellitius type2 Hypertension PLAN: medical floor as inpatient status. Patient will be followed by General surgery Service , . Patient will be followed by Podiatry Service, Dr. Sierra. Hold heparin drip due to drop in hemoglobin. Continue on aspirin recheck hemoglobin in morning. 2D echo results pending. As needed analgesia with morphine Empiric antibiotic therapy with vancomycin and Zosyn Obtain wound culture, follow up with the results Check blood culture, follow up with the results Arterial ultrasound of bilateral lower extremities noted. Check hemoglobin A1c in a.m. Glucometer checks a.c. and HS Humulin R sliding scale 1/2 dose Consider resuming home medications. GI prophylaxis, famotidine 20 mg IV once daily. DVT prophylaxis, Ramirez's and SCDs avoid anticoagulation at this time due to impending surgical evaluation. ATTESTATION BY PHYSICIAN I have seen and examined the patient. I reviewed the documentation, medical decision making, and treatment plan as noted by the resident provider above. I agree with the findings and plan of care. Dilip King MD, PRIYA N Sep 13, 2024 13:31
--- NOTE | 2024-09-13 16:07 | EKG ---
[facility] Test Date: 2024-09-12 Test Time: 22:07:00 Pat Name: SHAHZAD PAGE Department: [facility] Room: 418 1 Gender: F Mental Health Director: [id number] : 1965 Requested By: AUGUST JENSEN Order Number: [id number] Reading MD: August Jensen Measurements Intervals [place] Rate: 70 P: 0 TN: 0 QRS: -5 QRSD: 108 T: -51 QT: 438 QTc: 473 Interpretive Statements NSR Artifact noted Compared to ECG 09/11/2024 20:21:42 Electronically Signed On 09-13-2024 17:00:29 X [employer] by August Jensen Please click the below link to view image of tracing.
--- NOTE | 2024-09-13 16:53 | HMCSR ---
APPROVED REPORT EXAM: Two-dimensional and M-mode echocardiogram with Doppler and color Doppler. INDICATION ICD: cardiac stent Murmur 2D Dimensions RVDd3.1 cmLVEF(%)52.9 (>50%)LVED Vol(simp.)114.0 mL IVSd0.7 (0.7-1.1cm)FS(%)27 %LVES Vol(simp.)54.5 mL LVDd4.8 (3.8-5.6cm)LA (2D)2.8 (1.6-4.0cm)LVEF(%, simp.)52 % PWd1.1 (0.7-1.1cm)Ao Root(2D)2.9 (2.0-3.7cm)LA ESV INDEX (4CH)21.90 mL/m2 IVSs1.0 cmLVOT diam2.0 (1.8-2.4cm)LA ESV INDEX (2CH)47.70 mL/m2 LVDs3.5 (2.5-4.0cm)LA ESV INDEX (BP)36.40 mL/m2 PWs1.5 cm M-Mode Dimensions EPSS1.5 cm LA (MM)2.4 (1.6-4.0cm) Ao Root(MM)2.7 (2.0-3.7cm) Aortic Valve AoV VTI0.5 mAo Mean GR7.0 mmHgLVOT VTI0.20 m ANDRES (VMAX)1.3 cm2AVA (VTI) 1.3 cm2 Mitral Valve MV E Owcu870.6 cm/sDECEL Ydpj586 ms MV A Vmax98.5 cm/sP 1/2 T74 ms E/A ratio1.3MVA (PHT)3.0 cm2 TDI E/E' Zumyar95.6E/E' Tdshwas93.6 Medial E' Peak V4.90 cm/sLateral E' Peak V4.90 cm/s Left Ventricle The left ventricle is normal size. Mild anteroseptal hypokinesis There is normal left ventricular wal l thickness. LVEF is 45-50%. The left ventricular diastolic function is normal. Right Ventricle The right ventricle is normal size. The right ventricular systolic function is normal. Atria The left atrium size is normal. The right atrium size is normal. Aortic Valve The aortic valve is normal in structure. No aortic regurgitation is present. There is no aortic valvu lar stenosis. Mitral Valve The mitral valve is normal in structure. There is no mitral valve regurgitation noted. There is no mi tral valve stenosis. Tricuspid Valve The tricuspid valve is normal in structure. There is no tricuspid valve regurgitation noted. Pulmonic Valve The pulmonary valve is normal in structure. There is no pulmonic valvular regurgitation. Great Vessels The aortic root is normal in size. The IVC is normal in size and collapses >50% with inspiration. Pericardium There is no pericardial effusion. Conclusion LVEF is 45-50%. Mild anteroseptal hypokinesis The left ventricular diastolic function is normal.
--- NOTE | 2024-09-13 21:50 | NUR ---
SURGERY DR BROWNE MADE AWARE OF DR HONG RECOMMENDATIONS FOR CARDIAC CLEARANCE, PT IS INTERMEDIATE RISK OK TO PROCEED. ORDER PLACED FOR 2 UNITS OF PRBC'S, SPOKE WITH RENATE IN LAB REGARDING 2 UNITS NEEDED FOR SURGERY TMRW. HE VERBALIZED UNDERSTANDING. SPOKE WITH PT THAT SURGERY WILL OCCUR TMRW, NOT TO EAT OR DRINK ANYTHING PAST MIDNIGHT, SHE UNDERSTANDS.
[2024-09-14] VITALS (27 sets, daily range): BP systolic 93–151; BP diastolic 50–94; PULSE 67–97; RESP 16–22; TEMP 96.6–98.3; O2SAT 97
[2024-09-14 04:45] LABS: MEAN CORPUSCULAR HEMOGLOBIN 27.2 pg (27.0-33.0); MEAN CORPUSCULAR HGB CONC 30.8 g/dL (32.0-36.0); MEAN CORPUSCULAR VOLUME 88.4 fL (79-99); RED BLOOD CELL COUNT(AUTO) 2.94 MIL/uL (4.00-5.50); RED CELL DISTRIBUTION WIDTH 14.5 % (11.0-15.5); WHITE BLOOD COUNT (AUTO) 7.6 K/uL (4.8-10.8)
[2024-09-14 04:55] LABS: CREATININE 0.5 mg/dL (0.5-1.0); INR 0.97 (0.85-1.15); POTASSIUM 3.1 mmol/L (3.5-5.1); PROTHROMBIN TIME 10.9 SEC (9.6-11.6)
[2024-09-14 04:56] LABS: PARTIAL THROMBOPLASTIN TIME 29.2 SEC (26.3-35.5)
[2024-09-14] MEDS ORDERED: MIDAZOLAM HCL 1 MG/ML 2ML VIAL ONE (07:28)
[2024-09-14] MEDS ORDERED: proPOFol 10 MG/ML 20ML VIAL IV ONE (07:29)
[2024-09-14] MEDS ORDERED: FENTanyl CITRate PF 50 MCG/1 ML 2ML VIAL ONE ×2 (07:29→09:37)
[2024-09-14] MEDS ORDERED: rocuRONium bROMide 10MG/1ML 5ML VL ONE (07:29)
[2024-09-14] MEDS ORDERED: ROPivacaine 0.5% 5MG/ML 30ML ONE ×2 (07:37→07:43)
[2024-09-14] MEDS ORDERED: LIDOCAINE 2%-EPI 1:200,000 20 ML VIAL IJ ONE (07:43)
[2024-09-14] MEDS ORDERED: phenylEPHRINE HCL 10 MG/ML 1ML VIAL IV ONE (07:44)
[2024-09-14] MEDS ORDERED: SUCCINYLCHOLINE CHLORIDE 20 MG/ML 10 ML VIAL ONE (07:48)
--- NOTE | 2024-09-14 08:43 | PN ---
[facility] CARDIOLOGY PROGRESS NOTE Date Patient Seen: Sep 14, 2024 Time of Visit: 08:31 Problem List: [Right lower extremity ischemia Severe right lower extremity peripheral arterial disease documented July 2024 with a thrombosed right common femoral artery status post thrombectomy angioplasty stent placement to right common femoral artery right external iliac artery with placement of an 8 mm x 40 mm self expanding stent to right common femoral artery and angioplasty only to proximal mid right anterior tibial artery 07/23/2024 Diabetes mellitus Hypertension Dyslipidemia Ischemic cardiomyopathy Status post angioplasty and stent placement to proximal LAD with the use of a 3 mm x 20 mm synergy stent as well as proximal and distal left circumflex with Synergy stents placed 07/17/2024 Diabetes mellitus with angiopathy ] Interval History: [No acute events overnight the patient is currentlty in the OR. ] Physical Examination: Deferred, patient is in the OR Laboratory: [ ] Hematology Labs: Test 09/14/24 04:35 09/13/24 04:00 Range/Units White Blood Count 7.6 4.8-10.8 K/uL Red Blood Count 2.94 L 4.00-5.50 MIL/uL Hemoglobin 8.0 L 12.0-16.0 g/dL Hematocrit 26.0 L 36-48 % Mean Corpuscular Volume 88.4 79-99 fL Mean Corpuscular Hemoglobin 27.2 27.0-33.0 pg Mean Corpuscular Hemoglobin Concent 30.8 L 32.0-36.0 g/dL Red Cell Distribution Width 14.5 11.0-15.5 % Platelet Count 444 H 130-400 K/uL Mean Platelet Volume 9.5 7.5-10.5 fL Nucleated Red Blood Cells 0.0 0.0-0.19 % Immature Granulocyte % (Auto) 0.4 0-1 % Neutrophils (%) (Auto) 61.2 40.0-77.0 % Lymphocytes (%) (Auto) 29.4 21.0-51.0 % Monocytes (%) (Auto) 6.2 3.0-13.0 % Eosinophils (%) (Auto) 2.3 0.0-8.0 % Basophils (%) (Auto) 0.5 0.0-5.0 % Neutrophils # (Auto) 4.6 1.8-7.7 K/uL Lymphocytes # (Auto) 2.2 1.0-4.8 K/uL Monocytes # (Auto) 0.5 0.1-1.0 K/uL Eosinophils # (Auto) 0.17 0.00-0.70 K/uL Basophils # (Auto) 0.04 0.00-0.20 K/uL Absolute Immature Granulocyte (auto 0.03 0-1 K/uL Chemistry Labs: Test 09/14/24 04:35 09/13/24 10:43 Range/Units Sodium Level 141 136-145 mmol/L Potassium Level 3.1 L 3.5-5.1 mmol/L Chloride Level 107 101-111 mmol/L Carbon Dioxide Level 26 21-32 mmol/L Blood Urea Nitrogen 9 7-18 mg/dL Creatinine 0.5 0.5-1.0 mg/dL Glomerular Filtration Rate Calc 107 >90 mL/min Random Glucose 136 H 70-105 mg/dL Total Calcium 8.9 8.5-10.1 mg/dL Total Creatine Kinase 44 21-232 U/L Troponin I High Sensitivity 21.0 4-50 ng/L Coagulation Labs: Test 09/14/24 04:35 Range/Units Prothrombin Time 10.9 9.6-11.6 SEC Prothromb Time International Ratio 0.97 0.85-1.15 Activated Partial Thromboplast Time 29.2 26.3-35.5 SEC Diagnostics / Radiology: [Copy/Paste Echos/Imaging Report here] Impression and Plan: [Right lower extremity ischemia Severe right lower extremity peripheral arterial disease documented July 2024 with a thrombosed right common femoral artery status post thrombectomy angioplasty stent placement to right common femoral artery right external iliac artery with placement of an 8 mm x 40 mm self expanding stent to right common femoral artery and angioplasty only to proximal mid right anterior tibial artery 07/23/2024 Diabetes mellitus Hypertension Dyslipidemia Ischemic cardiomyopathy Status post angioplasty and stent placement to proximal LAD with the use of a 3 mm x 20 mm synergy stent as well as proximal and distal left circumflex with Synergy stents placed 07/17/2024 Diabetes mellitus with angiopathy The patient is currently in the OR undergoing right BKA The patient underwent 2Dechcoardiogram that showed EF 45-50 % , inferior and anterior hipokinesis Yesterday the patient was endorsing chest pain , currently Troponins have been negative Continue all home medications Once deemed safe by the surgical team the patient must resume DAPT therapy and high intensity statin SARY due to her recent stent placement to the LAD (07/2024) There are no plans for any invasive procedures at this time. Thank you for this consult , cardiology will sign off at this time., Pt will need close outpt Cardiology follow up within 1-2 weeks post discharge Jefry Carrasco MD ATTESTATION BY PHYSICIAN I have seen and examined the patient, reviewed the above documentation, participated in medical decision making, made necessary modifications, and agree with the treatment plan as documented by my mid-level provider above. MD JESSY Catalan JAMES R MD Sep 14, 2024 08:43
[2024-09-14] MEDS ORDERED: ondanSETRON 4MG INJ ONE (08:53)
[2024-09-14] MEDS: SUGAMMADEX SODIUM 200 MG/2 ML VIAL IV ONE (09:28)
--- NOTE | 2024-09-14 09:42 | PRN ---
OPERATIVE REPORT DATE OF SERVICE: Sep 14, 2024 PREOPERATIVE DIAGNOSIS: Gangrene of the [right] lower extremity, severe peripheral vascular disease. POSTOPERATIVE DIAGNOSIS: Gangrene of the [right] lower extremity, severe peripheral vascular disease. PROCEDURE: Right midlevel] below-knee amputation. ANESTHESIA: [General.with block] ESTIMATED BLOOD LOSS: Less than [75] mL. SPECIMENS: As above. DESCRIPTION OF PROCEDURE: The patient was in endotracheally intubated. Femoral block performed. He was on scheduled antibiotics. Flaps were marked. The tourniquet was placed and inflated. An incision made in the anterior lower leg down to the skin, the tissue was divided down to the level of the tibia. The tibia was then divided with electric saw, taking care to clamp with clip any bleeders. The fibula was then cleared of surrounding tissue and divided in the posterior flap fashion using electrocautery. The leg was removed. The area irrigated. The bones smoothed and formed and again after sequential lowering of the tourniquet, all bleeders were finally controlled. The patient was transfused 1 unit of prbc. The deep tissue was closed with interrupted Vicryl sutures. [place] were used for the skin. The patient tolerated the procedure. RJ BROWNE MD Sep 14, 2024 09:42
[2024-09-14 10:26] LABS: HEMATOCRIT 32.4 % (36-48)
[2024-09-14 10:37] LABS: CREATININE 0.5 mg/dL (0.5-1.0); POTASSIUM 3.1 mmol/L (3.5-5.1)
--- NOTE | 2024-09-14 11:00 | NUR ---
RECEIVED PATIENT FROM OR. PATIENT IS ALERT, ORIENTED IN PERSON, TIME AND PLACE. NO SIGNS OF RESPIRATORY DISTRESS. PATIENT HAS A RIGHT BELOW KNEE AMPUTATION, DRESSINGS CLEAN AND DRY. POPLITEAL PULSES PRESENT ON BOTH LEGS. PIV PATENTS.
--- NOTE | 2024-09-14 11:30 | NUR ---
BLOOD GLUCOSE 131. NO INSULIN COVERAGE NEEDED AT THIS TIME.
--- NOTE | 2024-09-14 11:48 | PN ---
[facility] PROGRESS NOTE Date of Service: Sep 14, 2024 Time of Service: 11:41 SUBJECTIVE: Ms. Cordero is a 59-year-old female states that she came to the emergency department with a chief complaint of foot pain. Onset was August 20, 2024. Location is to right foot. Duration is constant. Character is described as aching. There was no alleviating factors. Symptoms are aggravated by toes being black. Patient states she was hospitalized about three weeks ago at [facility] and was told that she will eventually need amputation of her toes. Patient denies any associated fever or chills. Right foot x-ray shows osteopenia. No fractures or dislocations. No bone destruction to suggest osteomyelitis. Soft tissue swelling over the dorsum and plantar aspects of the foot with soft tissue air consistent with soft tissue emphysema, soft tissue gangrene. arterial usg -PVD, ct angio abd aorta w/runoff-The vascular examination is abnormal. There is a patent stent of theright proximal superficial femoral artery. Right runoff is preserved. Onthe left side, the posterior tibial artery provides the only runoff. The anterior tibial artery and interosseous artery are occluded. 09/12- patient was scheduled for surgery today, but couldn't be done as the patient has h/o coronary stenting x4 on 07/17/2024 and has not been on consistent dual antiplatelet therapy. Although the patient is scheduled for BKA, cardiology must evaluate the possibility of occlusion of the coronary stents. cardio started the patient on aspirin on 81 mg. unable to start the patient on heparin as she has had a drop in her hemoglobin from 11.2 down to 8.3. recheck her hemoglobin in the morning. ordered a 2D echo for further stratification. Further recommendations to follow. 09/13 - patient seen at bedside. No overnight acute events. Patient awaiting 2D echo results for cardiac clearance for scheduled BKA. Possible BKA scheduled for Saturday. Holding the heparin drip due to drop in hemoglobin. Patient to continue on aspirin. We will continue to follow recommendations per consult. Patient's electrolytes within normal limits hemoglobin 8 white count 7.5 vanco mycin trough 11.2. Patient continues on vancomycin and Zosyn. 09/14 - no overnight acute events. patient currently in OR for BKA. patient urince culture positive for MRSA and e.coli. ID consulted. We follow up with patient post-op. Will follow recommendations per surgery. REVIEW OF SYSTEMS CONSTITUTIONAL: Denies fevers, chills, or night sweats. No unintentional weight loss reported. NEUROLOGICAL: Denies headache, amaurosis fugax, motor weakness, sensory deficit, vertigo/spinning sensation, gait abnormalities, or tremors. ENT: No hearing loss, otalgia, otorrhea, rhinitis, rhinorrhea, hoarseness, or sore throat. CARDIOVASCULAR: Denies any exertional angina, dyspnea on exertion, orthopnea, paroxysmal nocturnal dyspnea, palpitations, life-threatening arrhythmias, cl audication. PULMONARY: Denies any shortness of breath, cough, phlegm/sputum, hemoptysis, pleuritic chest pain. SLEEP: Denies morning headaches, daytime somnolence or napping. Denies difficulty falling asleep, staying asleep, waking from sleep. Denies knowledge of snoring. GASTROINTESTINAL: Denies any type of dysphagia to either liquids or solids. Denies nausea, vomiting, pyrosis, early satiety, abdominal pain, diarrhea, const ipation, or changes in stool consistency or caliber. Denies coffee-ground emesis, hematemesis, hematochezia, or melanotic stools. GENITOURINARY: Denies frequency, urgency, nocturia, hematuria or incontinence (Storage/Irritative symptoms.) Low urinary stream, straining to void, urinary intermittency or hesitancy, splitting of the voiding stream, terminal dribbling. ENDOCRINOLOGIC: Denies polyuria, polydipsia, polyphagia or heat/cold intolerances. HEMATOLOGIC: Denies thrombophilia/previous clots, or coagulopathy/bleeding disorders. ONCOLOGIC: Denies personal history of malignancy. DERMATOLOGIC: Denies rashes or pruritus. PSYCHIATRIC: Denies any suicidal or homicidal ideation. Denies hallucinations. PHYSICAL EXAM GENERAL APPEARANCE: The patient is awake, alert, and oriented, in no acute cardiopulmonary distress. NEUROLOGICAL: Cranial nerves II-XII grossly intact. Motor is 5/5 in bilateral upper and lower extremities proximal to distal. No sensory deficits. HEENT: Face is symmetric. Pupils are equal and reactive. Extraocular movements are intact. NECK: Supple. No JVD. No thyromegaly. No submental, submandibular, pre- /postauricular, occipital or supraclavicular lymphadenopathy. CHEST: Normal chest expansion. No Telemetry. LUNGS: Absence of any rales, rhonchi or any wheezing. CARDIOVASCULAR: Regular. S1 and S2 normal. No appreciable rubs, murmurs or gallops. ABDOMEN: Soft, nontender, and nondistended. There is no rebound, voluntary guarding, or rigidity. : Deferred. No [place]. EXTREMITIES: Non-edematous and not cyanotic. No clubbing. Good capillary refill. SKIN: No skin breakdown. Vital Signs (last 8hr) Date Time Temp Pulse Resp B/P (MAP) Pulse Ox O2 Delivery O2 Flow Rate FiO2 09/14/24 11:00 97.5 71 16 114/60 99 Room Air 09/14/24 10:45 97.9 69 16 112/53 93 Room Air 21 09/14/24 10:40 68 18 117/56 97 Room Air 21 09/14/24 10:35 70 22 116/56 97 Room Air 21 09/14/24 10:30 68 22 110/54 96 Room Air 21 09/14/24 10:25 68 16 116/56 93 Room Air 21 09/14/24 10:20 67 18 93/57 93 Room Air 21 09/14/24 10:15 68 19 104/56 93 Room Air 21 09/14/24 10:10 67 16 110/55 94 Room Air 21 09/14/24 10:05 68 16 116/60 95 Room Air 21 09/14/24 10:00 68 16 127/60 96 Room Air 21 09/14/24 09:55 68 17 114/50 100 Nonrebreathing Mask 10.0 09/14/24 09:50 68 17 112/52 100 Nonrebreathing Mask 10.0 09/14/24 09:45 97.9 70 16 122/51 100 Nonrebreathing Mask 10.0 09/14/24 07:40 96.6 75 17 116/51 97 Room Air 09/14/24 04:00 98.1 70 18 110/65 97 Nasal Cannula LABS: Laboratory: Test 09/14/24 10:17 09/14/24 04:35 09/13/24 10:43 09/13/24 04:00 Range/Units Hemoglobin 9.9 #L 12.0-16.0 g/dL Hematocrit 32.4 #L 36-48 % Sodium Level 142 136-145 mmol/L Potassium Level 3.1 L 3.5-5.1 mmol/L Chloride Level 108 101-111 mmol/L Carbon Dioxide Level 23 21-32 mmol/L Blood Urea Nitrogen 7 7-18 mg/dL Creatinine 0.5 0.5-1.0 mg/dL Glomerular Filtration Rate Calc 107 >90 mL/min Whole Blood Glucose 128 H 70-110 MG/DL Random Glucose 140 H 70-105 mg/dL Total Calcium 8.5 8.5-10.1 mg/dL White Blood Count 7.6 4.8-10.8 K/uL Red Blood Count 2.94 L 4.00-5.50 MIL/uL Mean Corpuscular Volume 88.4 79-99 fL Mean Corpuscular Hemoglobin 27.2 27.0-33.0 pg Mean Corpuscular Hemoglobin Concent 30.8 L 32.0-36.0 g/dL Red Cell Distribution Width 14.5 11.0-15.5 % Platelet Count 444 H 130-400 K/uL Mean Platelet Volume 9.5 7.5-10.5 fL Nucleated Red Blood Cells 0.0 0.0-0.19 % Prothrombin Time 10.9 9.6-11.6 SEC Prothromb Time International Ratio 0.97 0.85-1.15 Activated Partial Thromboplast Time 29.2 26.3-35.5 SEC Total Creatine Kinase 44 21-232 U/L Troponin I High Sensitivity 21.0 4-50 ng/L Immature Granulocyte % (Auto) 0.4 0-1 % Neutrophils (%) (Auto) 61.2 40.0-77.0 % Lymphocytes (%) (Auto) 29.4 21.0-51.0 % Monocytes (%) (Auto) 6.2 3.0-13.0 % Eosinophils (%) (Auto) 2.3 0.0-8.0 % Basophils (%) (Auto) 0.5 0.0-5.0 % Neutrophils # (Auto) 4.6 1.8-7.7 K/uL Lymphocytes # (Auto) 2.2 1.0-4.8 K/uL Monocytes # (Auto) 0.5 0.1-1.0 K/uL Eosinophils # (Auto) 0.17 0.00-0.70 K/uL Basophils # (Auto) 0.04 0.00-0.20 K/uL Absolute Immature Granulocyte (auto 0.03 0-1 K/uL Vancomycin Level Trough 11.2 # 10.0-20.0 UG/ML Current Medications Medications (Trade) Dose Ordered Sig/Toby Route PRN Reason Start Time Stop Time Status Last Admin Dose Admin Acetaminophen (TYLenol 650MG SUPPOSITORY) 650 mg Q6H PRN RC MILD PAIN (1-3) 09/11/24 20:00 10/11/24 19:59 Aspirin (Aspirin 81mg Ec Tab) 81 mg DAILY PO 09/13/24 09:00 10/13/24 08:59 09/13/24 08:39 81 MG Famotidine (Pepcid 20mg Vial) 20 mg DAILY IV 09/12/24 09:00 10/12/24 08:59 09/13/24 08:39 20 MG Hydralazine HCl (APRESOLine 20MG INJ) 10 mg Q6H PRN IV For:SBP above 160;DBP above 90 09/11/24 20:00 10/11/24 19:59 Insulin Human Regular (humuLIN R 100 UNIT/ML 3ML) INSULIN SLIDING SCAL... ACHS SQ 09/11/24 21:00 10/11/24 20:59 09/12/24 21:29 2 UNIT Lactated Ringer's 1,000 ml @ 75 mls/hr [id number] IV 09/11/24 20:00 10/11/24 19:59 09/13/24 16:36 75 MLS/HR Morphine Sulfate (morPHINE 2MG SYG) 2 mg Q4H PRN IVP SEVERE PAIN (7-10) 09/11/24 20:00 09/18/24 19:59 09/12/24 21:56 2 MG Nitroglycerin (Nitroglycerin 1gm Oint) 0.5 inch Q8H TD 09/12/24 22:30 10/12/24 22:29 09/14/24 06:38 0.5 INCH Ondansetron HCl (zoFRAN 4MG INJ) 4 mg Q6H PRN IV NAUSEA/VOMITING 09/11/24 20:00 10/11/24 19:59 Piperacillin Sod/ Tazobactam Sod 50 ml @ 200 mls/hr STAT STAT IVPB 09/11/24 17:33 09/11/24 17:47 DC 09/11/24 18:21 200 MLS/HR Piperacillin Sod/ Tazobactam Sod (Zosyn 3.375gm+NS 50ml) 3.375 gm Q8H IV 09/11/24 02:00 09/21/24 01:59 09/14/24 02:43 3.375 GM Piperacillin Sod/ Tazobactam Sod (Zosyn 3.375gm+NS 50ml) 3.375 gm Q8H IV 09/11/24 20:00 09/11/24 20:15 DC Vancomycin HCl (Vancomycin 750mg) 750 mg Q8H IVPB 09/12/24 05:00 09/22/24 04:59 09/14/24 04:45 750 MG Vancomycin HCl (Vancomycin Protocol) 1 each AD IV 09/11/24 20:00 09/25/24 19:59 DIAGNOSTICS / RADIOLOGY: [ ] ASSESSMENT: Gas gangrene right foot, POA Right foot necrosis, POA Diabetes mellitius type2 Hypertension UA positive for MRSA and E.coli PLAN: follow up post op medical floor as inpatient status. Patient will be followed by General surgery Service , . Patient will be followed by Podiatry Service, Dr. Sierra. Hold heparin drip due to drop in hemoglobin. Continue on aspirin recheck hemoglobin in morning. As needed analgesia with morphine Empiric antibiotic therapy with vancomycin and Zosyn Obtain wound culture, follow up with the results Check blood culture, follow up with the results Arterial ultrasound of bilateral lower extremities noted. Check hemoglobin A1c in a.m. Glucometer checks a.c. and HS Humulin R sliding scale 1/2 dose Consider resuming home medications. GI prophylaxis, famotidine 20 mg IV once daily. DVT prophylaxis, Ramirez's and SCDs avoid anticoagulation at this time due to impending surgical evaluation. ATTESTATION BY PHYSICIAN I have seen and examined the patient. I reviewed the documentation, medical decision making, and treatment plan as noted by the resident provider above. I agree with the findings and plan of care. Lorraine King MD, PRIYA N Sep 14, 2024 11:48
[2024-09-14] MEDS: hydroMORPHone 0.5 MG SYG (0.5MG/0.5ML) IVP ONE (14:19)
--- NOTE | 2024-09-14 16:30 | NUR ---
BLOOD GLUCOSE 128. NO INSULIN COVERAGE NEEDED AT THIS TIME.
--- NOTE | 2024-09-14 18:00 | NUR ---
Started covering potassium.
[2024-09-14] MEDS: PoTASSium chloRIDE 20MEQ ER 20 MEQ ERTAB PO PRN (18:06)
[2024-09-14] MEDS: PoTASSium chl 10% ELIXIR 20MEQ 20 MEQ/15 ML UDCUP PO PRN (18:06)
[2024-09-14] MEDS ORDERED: PoTASSium chloRIDE 20MEQ/100ML 100 ML IV PRN (18:30)
[2024-09-14] MEDS: GABApentin 100 MG CAPSULE PO SCH (20:22)
[2024-09-14] MEDS: ketOROlac 15MG/ML VIAL (15MG/ML) IV PRN (23:10)
[2024-09-15] VITALS (7 sets, daily range): BP systolic 113–143; BP diastolic 65–85; PULSE 59–86; RESP 16–20; TEMP 97.8–98.5; O2SAT 100
[2024-09-15 05:30] LABS: BASOPHILS # (AUTO) 0.03 K/uL (0.00-0.20); BASOPHILS % (AUTO) 0.4 % (0.0-5.0); EOSINOPHILS # (AUTO) 0.08 K/uL (0.00-0.70); HEMATOCRIT 32.3 % (36-48); IMMATURE GRANULOCYTE ABSOLUTE 0.05 K/uL (0-1); LYMPHOCYTES # (AUTO) 2.1 K/uL (1.0-4.8); LYMPHOCYTES % (AUTO) 26.2 % (21.0-51.0); MEAN CORPUSCULAR VOLUME 87.3 fL (79-99); MONOCYTES # (AUTO) 0.7 K/uL (0.1-1.0); MONOCYTES % (AUTO) 8.1 % (3.0-13.0); NEUTROPHILS # (AUTO) 5.1 K/uL (1.8-7.7); NEUTROPHILS % (AUTO) 63.7 % (40.0-77.0); PLATELET COUNT (AUTO) 445 K/uL (130-400); RED CELL DISTRIBUTION WIDTH 16.1 % (11.0-15.5); WHITE BLOOD COUNT (AUTO) 8.1 K/uL (4.8-10.8)
[2024-09-15 05:42] LABS: CREATININE 0.5 mg/dL (0.5-1.0); POTASSIUM 4.2 mmol/L (3.5-5.1)
--- NOTE | 2024-09-15 09:03 | PN ---
[facility] PROGRESS NOTE Date of Service: Sep 15, 2024 Time of Service: 08:55 SUBJECTIVE: Ms. Cordero is a 59-year-old female states that she came to the emergency department with a chief complaint of foot pain. Onset was August 20, 2024. Location is to right foot. Duration is constant. Character is described as aching. There was no alleviating factors. Symptoms are aggravated by toes being black. Patient states she was hospitalized about three weeks ago at [facility] and was told that she will eventually need amputation of her toes. Patient denies any associated fever or chills. Right foot x-ray shows osteopenia. No fractures or dislocations. No bone destruction to suggest osteomyelitis. Soft tissue swelling over the dorsum and plantar aspects of the foot with soft tissue air consistent with soft tissue emphysema, soft tissue gangrene. arterial usg -PVD, ct angio abd aorta w/runoff-The vascular examination is abnormal. There is a patent stent of theright proximal superficial femoral artery. Right runoff is preserved. Onthe left side, the posterior tibial artery provides the only runoff. The anterior tibial artery and interosseous artery are occluded. 09/12- patient was scheduled for surgery today, but couldn't be done as the patient has h/o coronary stenting x4 on 07/17/2024 and has not been on consistent dual antiplatelet therapy. Although the patient is scheduled for BKA, cardiology must evaluate the possibility of occlusion of the coronary stents. cardio started the patient on aspirin on 81 mg. unable to start the patient on heparin as she has had a drop in her hemoglobin from 11.2 down to 8.3. recheck her hemoglobin in the morning. ordered a 2D echo for further stratification. Further recommendations to follow. 09/13 - patient seen at bedside. No overnight acute events. Patient awaiting 2D echo results for cardiac clearance for scheduled BKA. Possible BKA scheduled for Saturday. Holding the heparin drip due to drop in hemoglobin. Patient to continue on aspirin. We will continue to follow recommendations per consult. Patient's electrolytes within normal limits hemoglobin 8 white count 7.5 vanco mycin trough 11.2. Patient continues on vancomycin and Zosyn. 09/14 - no overnight acute events. patient currently in OR for BKA. patient urine culture positive for MRSA and e.coli. ID consulted. Will follow up with patient post-op. Will follow recommendations per surgery. 09/15 - patient seen at bedside status post day 1 of BKA. patient tolerating diet. complains of mild pain. patient on toradol and gabapentin for pain management. Cultures taken from now amputated foot show ESBL, patient on IV Zosyn and vancomycin. patient scheduled for PT today. Will require PT rehab, awaiting placement. Surgery has cleared patient and requests follow up outpatient. REVIEW OF SYSTEMS CONSTITUTIONAL: Denies fevers, chills, or night sweats. No unintentional weight loss reported. NEUROLOGICAL: Denies headache, amaurosis fugax, motor weakness, sensory deficit, vertigo/spinning sensation, gait abnormalities, or tremors. ENT: No hearing loss, otalgia, otorrhea, rhinitis, rhinorrhea, hoarseness, or sore throat. CARDIOVASCULAR: Denies any exertional angina, dyspnea on exertion, orthopnea, paroxysmal nocturnal dyspnea, palpitations, life-threatening arrhythmias, claudication. PULMONARY: Denies any shortness of breath, cough, phlegm/sputum, hemoptysis, pleuritic chest pain. SLEEP: Denies morning headaches, daytime somnolence or napping. Denies difficulty falling asleep, staying asleep, waking from sleep. Denies knowledge of snoring. GASTROINTESTINAL: Denies any type of dysphagia to either liquids or solids. Denies nausea, vomiting, pyrosis, early satiety, abdominal pain, diarrhea, c onstipation, or changes in stool consistency or caliber. Denies coffee-ground emesis, hematemesis, hematochezia, or melanotic stools. GENITOURINARY: Denies frequency, urgency, nocturia, hematuria or incontinence (Storage/Irritative symptoms.) Low urinary stream, straining to void, urinary intermittency or hesitancy, splitting of the voiding stream, terminal dribbling. ENDOCRINOLOGIC: Denies polyuria, polydipsia, polyphagia or heat/cold intolerances. HEMATOLOGIC: Denies thrombophilia/previous clots, or coagulopathy/bleeding disorders. ONCOLOGIC: Denies personal history of malignancy. DERMATOLOGIC: Denies rashes or pruritus. PSYCHIATRIC: Denies any suicidal or homicidal ideation. Denies hallucinations. PHYSICAL EXAM GENERAL APPEARANCE: The patient is awake, alert, and oriented, in no acute ca rdiopulmonary distress. NEUROLOGICAL: Cranial nerves II-XII grossly intact. Motor is 5/5 in bilateral upper and lower extremities proximal to distal. No sensory deficits. HEENT: Face is symmetric. Pupils are equal and reactive. Extraocular movements are intact. NECK: Supple. No JVD. No thyromegaly. No submental, submandibular, pre- /postauricular, occipital or supraclavicular lymphadenopathy. CHEST: Normal chest expansion. No Telemetry. LUNGS: Absence of any rales, rhonchi or any wheezing. CARDIOVASCULAR: Regular. S1 and S2 normal. No appreciable rubs, murmurs or gallops. ABDOMEN: Soft, nontender, and nondistended. There is no rebound, voluntary guarding, or rigidity. : Deferred. No [place]. EXTREMITIES: Non-edematous and not cyanotic. No clubbing. Good capillary refill. SKIN: No skin breakdown. Vital Signs (last 8hr) Date Time Temp Pulse Resp B/P (MAP) Pulse Ox O2 Delivery O2 Flow Rate FiO2 09/15/24 07:49 98.1 85 18 143/85 98 Room Air 09/15/24 03:41 98.4 86 16 138/78 95 Room Air LABS: Laboratory: Test 09/15/24 05:17 09/15/24 04:53 09/14/24 12:01 09/14/24 04:35 Range/Units White Blood Count 8.1 4.8-10.8 K/uL Red Blood Count 3.70 L 4.00-5.50 MIL/uL Hemoglobin 10.0 L 12.0-16.0 g/dL Hematocrit 32.3 L 36-48 % Mean Corpuscular Volume 87.3 79-99 fL Mean Corpuscular Hemoglobin 27.0 27.0-33.0 pg Mean Corpuscular Hemoglobin Concent 31.0 L 32.0-36.0 g/dL Red Cell Distribution Width 16.1 H 11.0-15.5 % Platelet Count 445 H 130-400 K/uL Mean Platelet Volume 9.2 7.5-10.5 fL Immature Granulocyte % (Auto) 0.6 0-1 % Neutrophils (%) (Auto) 63.7 40.0-77.0 % Lymphocytes (%) (Auto) 26.2 21.0-51.0 % Monocytes (%) (Auto) 8.1 3.0-13.0 % Eosinophils (%) (Auto) 1.0 0.0-8.0 % Basophils (%) (Auto) 0.4 0.0-5.0 % Neutrophils # (Auto) 5.1 1.8-7.7 K/uL Lymphocytes # (Auto) 2.1 1.0-4.8 K/uL Monocytes # (Auto) 0.7 0.1-1.0 K/uL Eosinophils # (Auto) 0.08 0.00-0.70 K/uL Basophils # (Auto) 0.03 0.00-0.20 K/uL Absolute Immature Granulocyte (auto 0.05 0-1 K/uL Nucleated Red Blood Cells 0.0 0.0-0.19 % Sodium Level 139 136-145 mmol/L Potassium Level 4.2 3.5-5.1 mmol/L Chloride Level 106 101-111 mmol/L Carbon Dioxide Level 25 21-32 mmol/L Blood Urea Nitrogen 4 L 7-18 mg/dL Creatinine 0.5 0.5-1.0 mg/dL Glomerular Filtration Rate Calc 107 >90 mL/min Random Glucose 126 H 70-105 mg/dL Total Calcium 8.6 8.5-10.1 mg/dL Whole Blood Glucose 125 H 70-110 MG/DL Vancomycin Level Trough 17.8 # 10.0-20.0 UG/ML Prothrombin Time 10.9 9.6-11.6 SEC Prothromb Time International Ratio 0.97 0.85-1.15 Activated Partial Thromboplast Time 29.2 26.3-35.5 SEC Test 09/13/24 10:43 Range/Units Total Creatine Kinase 44 21-232 U/L Troponin I High Sensitivity 21.0 4-50 ng/L Current Medications Medications (Trade) Dose Ordered Sig/Toby Route PRN Reason Start Time Stop Time Status Last Admin Dose Admin Acetaminophen (TYLenol 650MG SUPPOSITORY) 650 mg Q6H PRN RC MILD PAIN (1-3) 09/11/24 20:00 10/11/24 19:59 Aspirin (Aspirin 81mg Ec Tab) 81 mg DAILY PO 09/13/24 09:00 10/13/24 08:59 09/13/24 08:39 81 MG Famotidine (Pepcid 20mg Vial) 20 mg DAILY IV 09/12/24 09:00 10/12/24 08:59 09/13/24 08:39 20 MG Gabapentin (NEURontin 100 mg CAP) 100 mg TID PO 09/14/24 21:00 10/14/24 20:59 09/14/24 20:22 100 MG Hydralazine HCl (APRESOLine 20MG INJ) 10 mg Q6H PRN IV For:SBP above 160;DBP above 90 09/11/24 20:00 10/11/24 19:59 Insulin Human Regular (humuLIN R 100 UNIT/ML 3ML) INSULIN SLIDING SCAL... ACHS SQ 09/11/24 21:00 10/11/24 20:59 09/14/24 20:32 2 UNIT Ketorolac Tromethamine (toRADol) 15 mg Q6H PRN IV MODERATE PAIN (4-6) 09/14/24 14:00 09/19/24 13:59 09/14/24 23:10 15 MG Lactated Ringer's 1,000 ml @ 75 mls/hr [id number] IV 09/11/24 20:00 10/11/24 19:59 09/15/24 04:10 75 MLS/HR Morphine Sulfate (morPHINE 2MG SYG) 2 mg Q4H PRN IVP SEVERE PAIN (7-10) 09/11/24 20:00 09/18/24 19:59 09/14/24 21:47 2 MG Nitroglycerin (Nitroglycerin 1gm Oint) 0.5 inch Q8H TD 09/12/24 22:30 10/12/24 22:29 09/15/24 06:06 0.5 INCH Ondansetron HCl (zoFRAN 4MG INJ) 4 mg Q6H PRN IV NAUSEA/VOMITING 09/11/24 20:00 10/11/24 19:59 Piperacillin Sod/ Tazobactam Sod 50 ml @ 200 mls/hr STAT STAT IVPB 09/11/24 17:33 09/11/24 17:47 DC 09/11/24 18:21 200 MLS/HR Piperacillin Sod/ Tazobactam Sod (Zosyn 3.375gm+NS 50ml) 3.375 gm Q8H IV 09/11/24 02:00 09/21/24 01:59 09/15/24 02:21 3.375 GM Piperacillin Sod/ Tazobactam Sod (Zosyn 3.375gm+NS 50ml) 3.375 gm Q8H IV 09/11/24 20:00 09/11/24 20:15 DC Potassium Chloride 100 ml @ 100 mls/hr AD PRN IV POTASSIUM PROTOCOL 09/14/24 18:30 10/14/24 18:29 Potassium Chloride (K-Dur/Klor-Con 20meq) 20 meq AD PRN PO POTASSIUM PROTOCOL 09/14/24 18:30 10/14/24 18:29 09/14/24 23:13 20 MEQ Potassium Chloride (KCl 10% Elixir 20meq/15ml) 20 meq AD PRN PO POTASSIUM PROTOCOL 09/14/24 18:30 10/14/24 18:29 09/14/24 18:06 20 MEQ Vancomycin HCl (Vancomycin 750mg) 750 mg Q8H IVPB 09/12/24 05:00 09/22/24 04:59 09/15/24 04:47 750 MG Vancomycin HCl (Vancomycin Protocol) 1 each AD IV 09/11/24 20:00 09/25/24 19:59 DIAGNOSTICS / RADIOLOGY: [ ] ASSESSMENT: Gas gangrene right foot, POA - s/p BKA on 09/14 Right foot necrosis, POA Diabetes mellitius type2 Hypertension UA positive for MRSA and E.coli PLAN: follow up post op BKA PT rehab placement medical floor as inpatient status. Patient will be followed by General surgery Service , . Patient will be followed by Podiatry Service, Dr. Sierra. Hold heparin drip due to drop in hemoglobin. Continue on aspirin recheck hemoglobin in morning. As needed analgesia with morphine Empiric antibiotic therapy with vancomycin and Zosyn Obtain wound culture, follow up with the results Check blood culture, follow up with the results Arterial ultrasound of bilateral lower extremities noted. Check hemoglobin A1c in a.m. Glucometer checks a.c. and HS Humulin R sliding scale 1/2 dose Consider resuming home medications. GI prophylaxis, famotidine 20 mg IV once daily. DVT prophylaxis, Ramirez's and SCDs avoid anticoagulation at this time due to impending surgical evaluation. ATTESTATION BY PHYSICIAN I have seen and examined the patient. I reviewed the documentation, medical decision making, and treatment plan as noted by the resident provider above. I agree with the findings and plan of care. Lorraine King MD, PRIYA N Sep 15, 2024 09:03
--- NOTE | 2024-09-15 12:14 | PN ---
Status post BKA patient's pain is controlled she is presently working with physical therapy. Patient to be evaluated for possible rehab . Surgically cleared to transfer once patient is accepted follow-up as outpatient Vitals/Labs Vital Signs Date Time Temp Pulse Resp B/P (MAP) Pulse Ox O2 Delivery O2 Flow Rate FiO2 09/15/24 10:49 98.4 85 20 137/76 100 Room Air 09/14/24 20:20 0 21 Laboratory Tests 09/15/24 05:17 Medications Current Medications Acetaminophen 1,000 mg ONCE ONCE PO Last administered on 09/11/24at 18:22; Start 09/11/24 at 18:00; Stop 09/11/24 at 18:01; Status DC Piperacillin Sod/ Tazobactam Sod 50 ml @ 200 mls/hr STAT STAT IVPB Last administered on 09/11/24at 18:21; Start 09/11/24 at 17:33; Stop 09/11/24 at 17:47; Status DC Vancomycin HCl 250 ml @ 125 mls/hr ONCE ONCE IV Last administered on 09/11/24at 18:51; Start 09/11/24 at 18:00; Stop 09/11/24 at 19:59; Status DC Sodium Chloride 1,000 ml @ 125 mls/hr ONCE ONCE IV Last administered on 09/11/24at 18:21; Start 09/11/24 at 18:00; Stop 09/12/24 at 01:59; Status DC Lactated Ringer's 1,000 ml @ 75 mls/hr [id number] IV Last administered on 09/15/24at 04:10; Start 09/11/24 at 20:00; Stop 10/11/24 at 19:59 Famotidine 20 mg DAILY IV Last administered on 09/15/24at 09:02; Start 09/12/24 at 09:00; Stop 10/12/24 at 08:59 Piperacillin Sod/ Tazobactam Sod 3.375 gm Q8H IV; Start 09/11/24 at 20:00; Stop 09/11/24 at 20:15; Status DC Vancomycin HCl 1 each AD IV; Start 09/11/24 at 20:00; Stop 09/25/24 at 19:59 Ondansetron HCl 4 mg Q6H PRN IV; Start 09/11/24 at 20:00; Stop 10/11/24 at 19:59 Morphine Sulfate 2 mg Q4H PRN IVP Last administered on 09/14/24at 21:47; Start 09/11/24 at 20:00; Stop 09/18/24 at 19:59 Hydralazine HCl 10 mg Q6H PRN IV; Start 09/11/24 at 20:00; Stop 10/11/24 at 19:59 Acetaminophen 650 mg Q6H PRN RC; Start 09/11/24 at 20:00; Stop 10/11/24 at 19:59 Insulin Human Regular INSULIN SLIDING SCAL... ACHS SQ Last administered on 09/14/24at 20:32; Start 09/11/24 at 21:00; Stop 10/11/24 at 20:59 Piperacillin Sod/ Tazobactam Sod 3.375 gm Q8H IV Last administered on 09/15/24at 09:03; Start 09/11/24 at 02:00; Stop 09/21/24 at 01:59 Vancomycin HCl 250 ml @ 125 mls/hr ONCE ONCE IV; Start 09/11/24 at 21:00; Stop 09/11/24 at 22:59; Status DC Vancomycin HCl 750 mg Q8H IVPB Last administered on 09/15/24at 04:47; Start 09/12/24 at 05:00; Stop 09/22/24 at 04:59 Iohexol 35,000 mg STK-MED ONCE IV; Start 09/12/24 at 11:05; Stop 09/12/24 at 11:06; Status DC Aspirin 81 mg DAILY PO Last administered on 09/13/24at 08:39; Start 09/13/24 at 09:00; Stop 10/13/24 at 08:59 Nitroglycerin 0.5 inch Q8H TD Last administered on 09/15/24at 06:06; Start 09/12/24 at 22:30; Stop 10/12/24 at 22:29 Midazolam HCl 2 mg STK-MED ONCE .ROUTE; Start 09/14/24 at 07:28; Stop 09/14/24 at 07:29; Status DC Propofol 200 mg STK-MED ONCE IV; Start 09/14/24 at 07:29; Stop 09/14/24 at 07:29; Status DC Rocuronium [place] 50 mg STK-MED ONCE .ROUTE; Start 09/14/24 at 07:29; Stop 09/14/24 at 07:29; Status DC Fentanyl Citrate 100 mcg STK-MED ONCE .ROUTE; Start 09/14/24 at 07:29; Stop 09/14/24 at 07:29; Status DC Ropivacaine 150 mg STK-MED ONCE .ROUTE; Start 09/14/24 at 07:37; Stop 09/14/24 at 07:37; Status DC Ropivacaine 150 mg STK-MED ONCE .ROUTE; Start 09/14/24 at 07:43; Stop 09/14/24 at 07:43; Status DC Lidocaine/ Epinephrine 20 ml STK-MED ONCE IJ; Start 09/14/24 at 07:43; Stop 09/14/24 at 07:44; Status DC Phenylephrine HCl 10 mg STK-MED ONCE IV; Start 09/14/24 at 07:44; Stop 09/14/24 at 07:44; Status DC Succinylcholine Chloride 200 mg STK-MED ONCE .ROUTE; Start 09/14/24 at 07:48; Stop 09/14/24 at 07:48; Status DC Ondansetron HCl 4 mg STK-MED ONCE .ROUTE; Start 09/14/24 at 08:53; Stop 09/14/24 at 08:53; Status DC Fentanyl Citrate 100 mcg STK-MED ONCE .ROUTE; Start 09/14/24 at 09:37; Stop 09/14/24 at 09:37; Status DC Hydromorphone HCl 0.2 mg ONCE ONCE IVP Last administered on 09/14/24at 14:19; Start 09/14/24 at 14:00; Stop 09/14/24 at 14:01; Status DC Ketorolac Tromethamine 15 mg Q6H PRN IV Last administered on 09/14/24at 23:10; Start 09/14/24 at 14:00; Stop 09/19/24 at 13:59 Gabapentin 100 mg TID PO Last administered on 09/15/24at 09:02; Start 09/14/24 at 21:00; Stop 10/14/24 at 20:59 Potassium Chloride 100 ml @ 100 mls/hr AD PRN IV; Start 09/14/24 at 18:30; Stop 10/14/24 at 18:29 Potassium Chloride 20 meq AD PRN PO Last administered on 09/14/24at 18:06; Start 09/14/24 at 18:30; Stop 10/14/24 at 18:29 Potassium Chloride 20 meq AD PRN PO Last administered on 09/14/24at 23:13; Start 09/14/24 at 18:30; Stop 10/14/24 at 18:29 RJ BROWNE MD Sep 15, 2024 12:14
--- NOTE | 2024-09-15 13:19 | CONS ---
INFECTIOUS DISEASE CONSULTATION NOTE Date of Service: Sep 15, 2024 Reason for Consultation: Urinary tract infection with the ESBL E coli. Requesting Physician: Dr. Tahira Garland HISTORY OF PRESENT ILLNESS: This is a 59-year-old female patient with past medical history of diabetes mellitus, coronary artery disease and hypertension who presented to the emergency room with right foot wound and pain. A right foot x-ray done on 09/11/2024 showed Soft tissue swelling over the dorsum and plantar aspects of the foot, with soft tissue air consistent with soft tissue emphysema and gangrene. A CT angio done on 09/12/24 showed fluid collections of the right lower extremity which may represent abscesses. General surgeon was consulted and patient underwent a right sfzbj-rqb-tfol amputation on 09/13/2024. A urinalysis was collected on admission and culture came back positive for ESBL E coli. Patient has been started on Zosyn. Patient was seen and examined at bedside in room 418. Patient is awake, alert and oriented x3. patient is status post right lcnov-jta-xadp amputation day #1. Patient with polymicrobial infection and currently remains on vancomycin and Zosyn IV. Patient has remained afebrile, current temperature is 98.4 and a WBC of 8.1. No a issues reported by nursing. REVIEW OF SYSTEMS CONSTITUTIONAL: Denies fever, chills, or fatigue. HEAD/FACE: No signs of trauma. EENT: Denies eye pain, blurred vision, double vision, or light sensitivity. RESPIRATORY: Denies shortness of breath, cough, wheezing CARDIOVASCULAR: Denies chest pain, palpitation, syncope GASTROINTESTINAL/ABDOMINAL: Denies abdominal pain, constipation, diarrhea, nausea or vomiting GENITOURINARY: Denies dysuria or hematuria. MUSCULOSKELETAL: Denies joint pain, tenderness, or trauma. INTEGUMENTARY: Denies rash or itchiness. Right foot diabetic ulcer POA. NEUROLOGICAL/PSYCH: Denies anxiety, depression, heat or cold intolerance. PAST MEDICAL HISTORY: Diabetes mellitus. Hypertension. Coronary artery disease. Depression. PAST SURGICAL HISTORY: None reported prior to the current right BKA. PAST SOCIAL HISTORY: Denies the use of tobacco, alcohol or any other illicit drug. FAMILY HISTORY: Father positive for diabetes mellitus and right ftulf-rko-axqb amputation. Mother positive for diabetes mellitus, hypertension and heart problems. Coded Allergies: No Known Drug Allergies (Unverified Allergy, Unknown, 09/06/18) PHYSICAL EXAM EYES: Anicteric. Pupils equal and reactive. HENT: No oral thrush seen, moist Oral mucosa NECK: Supple, no JVD or thyromegaly. LUNGS: Good air entry. No rales, no rhonchi. CARDIOVASCULAR: S1, S2 regular. No murmur heard. ABDOMEN: Soft, non tender, bowel sounds present, no organomegaly CENTRAL NERVOUS SYSTEM: Awake, alert, oriented x 3. SKIN: No rashes, no swelling. LYMPHATICS: No peripheral lymphadenopathy MUSCULOSKELETAL: No joint swelling, erythema or tenderness. EXTREMITIES: No cyanosis or clubbing. Right itcro-cdo-vgfh amputation BACK: No deformity, no pressure ulcer. GENITOURINARY: No dysuria or hematuria Vital Sign (Last 24 Hours) 09/14/24 09/15/24 20:20 10:49 Temp 98.4 Pulse 85 Resp 20 B/P (MAP) 137/76 Pulse Ox 100 O2 Delivery Room Air O2 Flow Rate 0 FiO2 21 Intake & Output (last 24hrs) 09/14/24 09/14/24 09/15/24 15:00 23:00 07:00 Intake Total 1020 ml 1025.0 ml Output Total 900 ml Balance 1020 ml 125.0 ml LABS: Laboratory: Test 09/15/24 10:20 09/15/24 05:17 09/14/24 12:01 09/14/24 04:35 Range/Units Whole Blood Glucose 186 H 70-110 MG/DL Bedside Glucose Comment Notified Nurse White Blood Count 8.1 4.8-10.8 K/uL Red Blood Count 3.70 L 4.00-5.50 MIL/uL Hemoglobin 10.0 L 12.0-16.0 g/dL Hematocrit 32.3 L 36-48 % Mean Corpuscular Volume 87.3 79-99 fL Mean Corpuscular Hemoglobin 27.0 27.0-33.0 pg Mean Corpuscular Hemoglobin Concent 31.0 L 32.0-36.0 g/dL Red Cell Distribution Width 16.1 H 11.0-15.5 % Platelet Count 445 H 130-400 K/uL Mean Platelet Volume 9.2 7.5-10.5 fL Immature Granulocyte % (Auto) 0.6 0-1 % Neutrophils (%) (Auto) 63.7 40.0-77.0 % Lymphocytes (%) (Auto) 26.2 21.0-51.0 % Monocytes (%) (Auto) 8.1 3.0-13.0 % Eosinophils (%) (Auto) 1.0 0.0-8.0 % Basophils (%) (Auto) 0.4 0.0-5.0 % Neutrophils # (Auto) 5.1 1.8-7.7 K/uL Lymphocytes # (Auto) 2.1 1.0-4.8 K/uL Monocytes # (Auto) 0.7 0.1-1.0 K/uL Eosinophils # (Auto) 0.08 0.00-0.70 K/uL Basophils # (Auto) 0.03 0.00-0.20 K/uL Absolute Immature Granulocyte (auto 0.05 0-1 K/uL Nucleated Red Blood Cells 0.0 0.0-0.19 % Sodium Level 139 136-145 mmol/L Potassium Level 4.2 3.5-5.1 mmol/L Chloride Level 106 101-111 mmol/L Carbon Dioxide Level 25 21-32 mmol/L Blood Urea Nitrogen 4 L 7-18 mg/dL Creatinine 0.5 0.5-1.0 mg/dL Glomerular Filtration Rate Calc 107 >90 mL/min Random Glucose 126 H 70-105 mg/dL Total Calcium 8.6 8.5-10.1 mg/dL Vancomycin Level Trough 17.8 # 10.0-20.0 UG/ML Prothrombin Time 10.9 9.6-11.6 SEC Prothromb Time International Ratio 0.97 0.85-1.15 Activated Partial Thromboplast Time 29.2 26.3-35.5 SEC DIAGNOSTICS / RADIOLOGY: PATIENT: SHAHZAD PAGE MR#: [id number] : 1965 SEX: F AGE: 59 LOCATION: 4CH ORDER 1050 STATUS: ADM IN REPORT#: [id number] SERVICE 1045 REASON: RIGHT FOOT GANGRENE ORDERING PHYSICIAN: RJ BROWNE MD PROCEDURE: CTA ABDAOR - CT ANGIO ABD AORTA W RUNOFF Exam Type: CT angiogram abdomen and pelvis and lower extremities run-off with contrast Exam Type: CT ANGIO ABD AORTA W RUNOFF Clinical Information: RIGHT FOOT GANGRENE Comparison: None Technique: Routine helical scanning at 5mm collimation through the abdomen and pelvis after contrast administration. In addition, sagittal and coronary formations of the abdomen pelvis and surface rendering three-dimensional reconstructions of the abdominal aorta and the bilateral lower extremity arterial system were performed. Findings: The vascular examination is abnormal. There is a patent stent of the right proximal superficial femoral artery. Right runoff is preserved. On the left side, the posterior tibial artery provides the only runoff. The anterior tibial artery and interosseous artery are occluded. There is no aortic aneurysm. There is no occlusion. There is no dissection. There is no extravasation to suggest laceration or rupture. No evidence of nephro or ureterolithiasis is found. No hydronephrosis or ureteral dilatation is seen. The visualized portion of the stomach is unremarkable. It shows no wall thickening. No gross ulceration is seen. It is not overly distended. There are no surrounding inflammatory changes. No wall lesions are identified to suggest cancer. The visualized portion of the spleen is unremarkable. It is not enlarged. The pancreas shows normal anatomy. It is not fatty replaced. It shows no lesions. The pancreatic duct is not dilated. The gallbladder is unremarkable. It shows no cholelithiasis. The gallbladder wall is normal in thickness. There is no pericholecystic fluid. The is no acute or chronic inflammation noted. The adrenal glands are unremarkable. There is no enlargement. No lesions are noted. The visualized portion of the liver is unremarkable. It shows no focal masses. The appendix is unremarkable. It shows no evidence of inflammation. No appendicolith is seen. Large right lower anterior abdominal wall hernia containing bowel loops without incarceration or strangulation and the rest of the large and small bowel loops appear unremarkable throughout. The urinary bladder is unremarkable. There is no wall thickening to suggest tumor or inflammation. There are no intraluminal calculi. There are no diverticula. There is no evidence of chronic bladder outlet obstruction. There is no evidence of urinary bladder distention to suggest urinary retention. The other pelvic structures are unremarkable. Soft tissue gangrene throughout the right foot is seen. No bone destruction noted to suggest osteomyelitis. Old healed fractures of the obturator rings seen bilaterally. Fluid collection anterior and lateral to the tibia at mid leg level is seen on the right side measuring 2.6 x 3.7 cm. This may represent a muscle hematoma but the possibility of an abscess must also be entertained. Similar more distally located collection is noted high in the tibia superior to the ankle level also seen, smaller. IMPRESSION: The vascular examination is abnormal. There is a patent stent of the right proximal superficial femoral artery. Right runoff is preserved. On the left side, the posterior tibial artery provides the only runoff. The anterior tibial artery and interosseous artery are occluded. Soft tissue gangrene throughout the right foot is seen. No bone destruction noted to suggest osteomyelitis. Fluid collections of the right lower extremity which may represent abscesses. This study was performed using dose reduction techniques to include automated exposure control and/or adjustment of the mA and/or kV according to patient size. DICTATED BY: CHRISTOPH KRISHNA MD DATE: 09/12/241204 ELECTRONICALLY SIGNED BY: CHRISTOPH KRISHNA MD DATE: 09/12/24 1214 ASSESSMENT: Urine culture with ESBL E coli. Infection with multidrug resistant organism. Left foot abscess with gangrene, , status post right fggkr-ann-nssp amputation. Polymicrobial infection. Peripheral vascular disease. Diabetes mellitus. Coronary artery disease. PLAN: Continue Zosyn IV. Continue vancomycin per pharmacy protocol. Continue GI prophylaxis. Incision care as recommended by General surgery. Continue pain management. Continue monitoring glucose levels. Continue nutritional support. We will monitor electrolytes. Patient will need 2 weeks on IV antibiotics discharged. Thank you for allowing ID to participate in the care of this patient. This case was reviewed and discussed with my supervising physician and the above assessment and plan was formulated and agreed upon. ATTESTATION BY PHYSICIAN I have seen and examined the patient. I reviewed the documentation, medical decision making, and treatment plan as noted by the mid-level provider above. I agree with the findings and plan of care. URSZULA DUNN MD, [facility] Sep 15, 2024 13:18
[2024-09-16 03:57] VITALS: BP 133/71; PULSE 74; RESP 18; TEMP 98.1
--- NOTE | 2024-09-16 05:01 | NUR ---
nursing pm note patient alert and oriented times 4. plan of care discussed with the patient and she verbalized understanding. patient has intermittent right bka pain tonight relieved by pain medication. patient is on a purewick. she has slept about 6 hours tonight. door open, bed alarm on, 2 side rails up. will continue to monitor patient.
[2024-09-16 08:00] VITALS: BP 142/76; PULSE 82; RESP 19; TEMP 97.8
[2024-09-16] MEDS: hydroMORPHone 0.5 MG SYG (0.5MG/0.5ML) IVP PRN (09:24)
--- NOTE | 2024-09-16 10:03 | PN ---
[facility] PROGRESS NOTE Date of Service: Sep 16, 2024 Time of Service: 09:47 SUBJECTIVE: Ms. Cordero is a 59-year-old female states that she came to the emergency department with a chief complaint of foot pain. Onset was August 20, 2024. Location is to right foot. Duration is constant. Character is described as aching. There was no alleviating factors. Symptoms are aggravated by toes being black. Patient states she was hospitalized about three weeks ago at [facility] and was told that she will eventually need amputation of her toes. Patient denies any associated fever or chills. Right foot x-ray shows osteopenia. No fractures or dislocations. No bone destruction to suggest osteomyelitis. Soft tissue swelling over the dorsum and plantar aspects of the foot with soft tissue air consistent with soft tissue emphysema, soft tissue gangrene. arterial usg -PVD, ct angio abd aorta w/runoff-The vascular examination is abnormal. There is a patent stent of theright proximal superficial femoral artery. Right runoff is preserved. Onthe left side, the posterior tibial artery provides the only runoff. The anterior tibial artery and interosseous artery are occluded. 09/12- patient was scheduled for surgery today, but couldn't be done as the patient has h/o coronary stenting x4 on 07/17/2024 and has not been on consistent dual antiplatelet therapy. Although the patient is scheduled for BKA, cardiology must evaluate the possibility of occlusion of the coronary stents. cardio started the patient on aspirin on 81 mg. unable to start the patient on heparin as she has had a drop in her hemoglobin from 11.2 down to 8.3. recheck her hemoglobin in the morning. ordered a 2D echo for further stratification. Further recommendations to follow. 09/13 - patient seen at bedside. No overnight acute events. Patient awaiting 2D echo results for cardiac clearance for scheduled BKA. Possible BKA scheduled for Saturday. Holding the heparin drip due to drop in hemoglobin. Patient to continue on aspirin. We will continue to follow recommendations per consult. Patient's electrolytes within normal limits hemoglobin 8 white count 7.5 vancom ycin trough 11.2. Patient continues on vancomycin and Zosyn. 09/14 - no overnight acute events. patient currently in OR for BKA. patient urine culture positive for MRSA and e.coli. ID consulted. Will follow up with patient post-op. Will follow recommendations per surgery. 09/15 - patient seen at bedside status post day 1 of BKA. patient tolerating diet. complains of mild pain. patient on toradol and gabapentin for pain management. Cultures taken from now amputated foot show ESBL, patient on IV Zosyn and vancomycin. patient scheduled for PT today. Will require PT rehab, awaiting placement. Surgery has cleared patient and requests follow up outpatient. 09/16/24 - patient seen at bedside. no overnight acute events. patient pain being managed adequately. per infectious disease, patient on IV Zosyn and vancomycin. Patient awaiting PT rehab placement. will switch to pral pain medications as tolerated. follow recommendations per Infectious Disease REVIEW OF SYSTEMS CONSTITUTIONAL: Denies fevers, chills, or night sweats. No unintentional weight loss reported. NEUROLOGICAL: Denies headache, amaurosis fugax, motor weakness, sensory deficit, vertigo/spinning sensation, gait abnormalities, or tremors. ENT: No hearing loss, otalgia, otorrhea, rhinitis, rhinorrhea, hoarseness, or sore throat. CARDIOVASCULAR: Denies any exertional angina, dyspnea on exertion, orthopnea, paroxysmal nocturnal dyspnea, palpitations, life-threatening arrhythmias, claudication. PULMONARY: Denies any shortness of breath, cough, phlegm/sputum, hemoptysis, pleuritic chest pain. SLEEP: Denies morning headaches, daytime somnolence or napping. Denies difficulty falling asleep, staying asleep, waking from sleep. Denies knowledge of snoring. GASTROINTESTINAL: Denies any type of dysphagia to either liquids or solids. Denies nausea, vomiting, pyrosis, early satiety, abdominal pain, diarrhea, constipation, or changes in stool consistency or caliber. Denies coffee-ground emesis, hematemesis, hematochezia, or melanotic stools. GENITOURINARY: Denies frequency, urgency, nocturia, hematuria or incontinence (Storage/Irritative symptoms.) Low urinary stream, straining to void, urinary intermittency or hesitancy, splitting of the voiding stream, terminal dribbling. ENDOCRINOLOGIC: Denies polyuria, polydipsia, polyphagia or heat/cold intolerances. HEMATOLOGIC: Denies thrombophilia/previous clots, or coagulopathy/bleeding disorders. ONCOLOGIC: Denies personal history of malignancy. DERMATOLOGIC: Denies rashes or pruritus. PSYCHIATRIC: Denies any suicidal or homicidal ideation. Denies hallucinations. PHYSICAL EXAM GENERAL APPEARANCE: The patient is awake, alert, and oriented, in no acute cardiopulmonary distress. NEUROLOGICAL: Cranial nerves II-XII grossly intact. Motor is 5/5 in bilateral upper and lower extremities proximal to distal. No sensory deficits. HEENT: Face is symmetric. Pupils are equal and reactive. Extraocular movements are intact. NECK: Supple. No JVD. No thyromegaly. No submental, submandibular, pre- /postauricular, occipital or supraclavicular lymphadenopathy. CHEST: Normal chest expansion. No Telemetry. LUNGS: Absence of any rales, rhonchi or any wheezing. CARDIOVASCULAR: Regular. S1 and S2 normal. No appreciable rubs, murmurs or gallops. ABDOMEN: Soft, nontender, and nondistended. There is no rebound, voluntary guarding, or rigidity. : Deferred. No [place]field. EXTREMITIES: Non-edematous and not cyanotic. No clubbing. Good capillary refill. SKIN: No skin breakdown. Vital Signs (last 8hr) Date Time Temp Pulse Resp B/P (MAP) Pulse Ox O2 Delivery O2 Flow Rate FiO2 09/16/24 08:00 97.9 82 19 142/76 98 Room Air 09/16/24 07:39 Room Air* 0 21 09/16/24 03:57 98.1 74 18 133/71 98 Nasal Cannula 2.0 24 LABS: Laboratory: Test 09/16/24 05:16 09/15/24 10:20 09/15/24 05:17 09/14/24 12:01 Range/Units Whole Blood Glucose 128 H 70-110 MG/DL Bedside Glucose Comment Notified Nurse White Blood Count 8.1 4.8-10.8 K/uL Red Blood Count 3.70 L 4.00-5.50 MIL/uL Hemoglobin 10.0 L 12.0-16.0 g/dL Hematocrit 32.3 L 36-48 % Mean Corpuscular Volume 87.3 79-99 fL Mean Corpuscular Hemoglobin 27.0 27.0-33.0 pg Mean Corpuscular Hemoglobin Concent 31.0 L 32.0-36.0 g/dL Red Cell Distribution Width 16.1 H 11.0-15.5 % Platelet Count 445 H 130-400 K/uL Mean Platelet Volume 9.2 7.5-10.5 fL Immature Granulocyte % (Auto) 0.6 0-1 % Neutrophils (%) (Auto) 63.7 40.0-77.0 % Lymphocytes (%) (Auto) 26.2 21.0-51.0 % Monocytes (%) (Auto) 8.1 3.0-13.0 % Eosinophils (%) (Auto) 1.0 0.0-8.0 % Basophils (%) (Auto) 0.4 0.0-5.0 % Neutrophils # (Auto) 5.1 1.8-7.7 K/uL Lymphocytes # (Auto) 2.1 1.0-4.8 K/uL Monocytes # (Auto) 0.7 0.1-1.0 K/uL Eosinophils # (Auto) 0.08 0.00-0.70 K/uL Basophils # (Auto) 0.03 0.00-0.20 K/uL Absolute Immature Granulocyte (auto 0.05 0-1 K/uL Nucleated Red Blood Cells 0.0 0.0-0.19 % Sodium Level 139 136-145 mmol/L Potassium Level 4.2 3.5-5.1 mmol/L Chloride Level 106 101-111 mmol/L Carbon Dioxide Level 25 21-32 mmol/L Blood Urea Nitrogen 4 L 7-18 mg/dL Creatinine 0.5 0.5-1.0 mg/dL Glomerular Filtration Rate Calc 107 >90 mL/min Random Glucose 126 H 70-105 mg/dL Total Calcium 8.6 8.5-10.1 mg/dL Vancomycin Level Trough 17.8 # 10.0-20.0 UG/ML Current Medications Medications (Trade) Dose Ordered Sig/Toby Route PRN Reason Start Time Stop Time Status Last Admin Dose Admin Acetaminophen (TYLenol 650MG SUPPOSITORY) 650 mg Q6H PRN RC MILD PAIN (1-3) 09/11/24 20:00 10/11/24 19:59 Aspirin (Aspirin 81mg Ec Tab) 81 mg DAILY PO 09/13/24 09:00 10/13/24 08:59 09/16/24 09:27 81 MG Famotidine (Pepcid 20mg Vial) 20 mg DAILY IV 09/12/24 09:00 10/12/24 08:59 09/16/24 09:27 20 MG Gabapentin (NEURontin 100 mg CAP) 100 mg TID PO 09/14/24 21:00 10/14/24 20:59 09/16/24 09:27 100 MG Hydralazine HCl (APRESOLine 20MG INJ) 10 mg Q6H PRN IV For:SBP above 160;DBP above 90 09/11/24 20:00 10/11/24 19:59 Hydromorphone HCl (DiLAUDid 0.5MG INJ) 0.5 mg Q6H PRN IVP SEVERE PAIN (7-10) 09/15/24 18:00 09/20/24 17:59 09/16/24 09:24 0.5 MG Insulin Human Regular (humuLIN R 100 UNIT/ML 3ML) INSULIN SLIDING SCAL... ACHS SQ 09/11/24 21:00 10/11/24 20:59 09/15/24 20:30 5 UNIT Ketorolac Tromethamine (toRADol) 15 mg Q6H PRN IV MODERATE PAIN (4-6) 09/14/24 14:00 09/19/24 13:59 09/16/24 04:25 15 MG Lactated Ringer's 1,000 ml @ 75 mls/hr [id number] IV 09/11/24 20:00 10/11/24 19:59 09/15/24 04:10 75 MLS/HR Morphine Sulfate (morPHINE 2MG SYG) 2 mg Q4H PRN IVP SEVERE PAIN (7-10) 09/11/24 20:00 09/15/24 18:01 DC 09/15/24 16:24 2 MG Nitroglycerin (Nitroglycerin 1gm Oint) 0.5 inch Q8H TD 09/12/24 22:30 10/12/24 22:29 09/15/24 20:20 0.5 INCH Ondansetron HCl (zoFRAN 4MG INJ) 4 mg Q6H PRN IV NAUSEA/VOMITING 09/11/24 20:00 10/11/24 19:59 Piperacillin Sod/ Tazobactam Sod 50 ml @ 200 mls/hr STAT STAT IVPB 09/11/24 17:33 09/11/24 17:47 DC 09/11/24 18:21 200 MLS/HR Piperacillin Sod/ Tazobactam Sod (Zosyn 3.375gm+NS 50ml) 3.375 gm Q8H IV 09/11/24 02:00 09/21/24 01:59 09/16/24 00:31 3.375 GM Piperacillin Sod/ Tazobactam Sod (Zosyn 3.375gm+NS 50ml) 3.375 gm Q8H IV 09/11/24 20:00 09/11/24 20:15 DC Potassium Chloride 100 ml @ 100 mls/hr AD PRN IV POTASSIUM PROTOCOL 09/14/24 18:30 10/14/24 18:29 Potassium Chloride (K-Dur/Klor-Con 20meq) 20 meq AD PRN PO POTASSIUM PROTOCOL 09/14/24 18:30 10/14/24 18:29 09/14/24 23:13 20 MEQ Potassium Chloride (KCl 10% Elixir 20meq/15ml) 20 meq AD PRN PO POTASSIUM PROTOCOL 09/14/24 18:30 10/14/24 18:29 09/14/24 18:06 20 MEQ Vancomycin HCl (Vancomycin 750mg) 750 mg Q8H IVPB 09/12/24 05:00 09/22/24 04:59 09/16/24 04:20 750 MG Vancomycin HCl (Vancomycin Protocol) 1 each AD IV 09/11/24 20:00 09/25/24 19:59 DIAGNOSTICS / RADIOLOGY: [ ] ASSESSMENT: Gas gangrene right foot, POA - s/p BKA on 09/14 Right foot necrosis, POA Diabetes mellitius type2 Hypertension UA positive for MRSA and E.coli PLAN: follow up post op BKA PT rehab placement medical floor as inpatient status. Patient will be followed by General surgery Service , . Hold heparin drip due to drop in hemoglobin. Continue on aspirin recheck hemoglobin in morning. Empiric antibiotic therapy with vancomycin and Zosyn Check hemoglobin A1c in a.m. Glucometer checks a.c. and HS Humulin R sliding scale 1/2 dose. GI prophylaxis, famotidine 20 mg IV once daily. DVT prophylaxis, Ramirez's and SCDs avoid anticoagulation at this time due to impending surgical evaluation. ATTESTATION BY PHYSICIAN I have seen and examined the patient. I reviewed the documentation, medical decision making, and treatment plan as noted by the resident provider above. I agree with the findings and plan of care. Lorraine King MD, PRIYA N Sep 16, 2024 10:03
--- NOTE | 2024-09-16 11:02 | PN ---
bka c/d/i betadine paint open to air clear to d/c to rehab Vitals/Labs Vital Signs Date Time Temp Pulse Resp B/P (MAP) Pulse Ox O2 Delivery O2 Flow Rate FiO2 09/16/24 08:00 97.9 82 19 142/76 98 Room Air 09/16/24 07:39 0 21 Medications Current Medications Acetaminophen 1,000 mg ONCE ONCE PO Last administered on 09/11/24at 18:22; Start 09/11/24 at 18:00; Stop 09/11/24 at 18:01; Status DC Piperacillin Sod/ Tazobactam Sod 50 ml @ 200 mls/hr STAT STAT IVPB Last administered on 09/11/24at 18:21; Start 09/11/24 at 17:33; Stop 09/11/24 at 17:47; Status DC Vancomycin HCl 250 ml @ 125 mls/hr ONCE ONCE IV Last administered on 09/11/24at 18:51; Start 09/11/24 at 18:00; Stop 09/11/24 at 19:59; Status DC Sodium Chloride 1,000 ml @ 125 mls/hr ONCE ONCE IV Last administered on 09/11/24at 18:21; Start 09/11/24 at 18:00; Stop 09/12/24 at 01:59; Status DC Lactated Ringer's 1,000 ml @ 75 mls/hr [id number] IV Last administered on 08/18 10/09at 04:10; Start 09/11/24 at 20:00; Stop 10/11/24 at 19:59 Famotidine 20 mg DAILY IV Last administered on 09/16/24at 09:27; Start 09/12/24 at 09:00; Stop 10/12/24 at 08:59 Piperacillin Sod/ Tazobactam Sod 3.375 gm Q8H IV; Start 09/11/24 at 20:00; Stop 09/11/24 at 20:15; Status DC Vancomycin HCl 1 each AD IV; Start 09/11/24 at 20:00; Stop 09/25/24 at 19:59 Ondansetron HCl 4 mg Q6H PRN IV; Start 09/11/24 at 20:00; Stop 10/11/24 at 19:59 Morphine Sulfate 2 mg Q4H PRN IVP Last administered on 09/15/24at 16:24; Start 09/11/24 at 20:00; Stop 09/15/24 at 18:01; Status DC Hydralazine HCl 10 mg Q6H PRN IV; Start 09/11/24 at 20:00; Stop 10/11/24 at 19:59 Acetaminophen 650 mg Q6H PRN RC; Start 09/11/24 at 20:00; Stop 10/11/24 at 19:59 Insulin Human Regular INSULIN SLIDING SCAL... ACHS SQ Last administered on 09/15/24at 20:30; Start 09/11/24 at 21:00; Stop 10/11/24 at 20:59 Piperacillin Sod/ Tazobactam Sod 3.375 gm Q8H IV Last administered on 09/16/24at 00:31; Start 09/11/24 at 02:00; Stop 09/21/24 at 01:59 Vancomycin HCl 250 ml @ 125 mls/hr ONCE ONCE IV; Start 09/11/24 at 21:00; Stop 09/11/24 at 22:59; Status DC Vancomycin HCl 750 mg Q8H IVPB Last administered on 09/16/24at 04:20; Start 09/12/24 at 05:00; Stop 09/22/24 at 04:59 Iohexol 35,000 mg STK-MED ONCE IV; Start 09/12/24 at 11:05; Stop 09/12/24 at 11:06; Status DC Aspirin 81 mg DAILY PO Last administered on 09/16/24at 09:27; Start 09/13/24 at 09:00; Stop 10/13/24 at 08:59 Nitroglycerin 0.5 inch Q8H TD Last administered on 09/15/24at 20:20; Start 09/12/24 at 22:30; Stop 10/12/24 at 22:29 Midazolam HCl 2 mg STK-MED ONCE .ROUTE; Start 09/14/24 at 07:28; Stop 09/14/24 at 07:29; Status DC Propofol 200 mg STK-MED ONCE IV; Start 09/14/24 at 07:29; Stop 09/14/24 at 07:29; Status DC Rocuronium [place] 50 mg STK-MED ONCE .ROUTE; Start 09/14/24 at 07:29; Stop 09/14/24 at 07:29; Status DC Fentanyl Citrate 100 mcg STK-MED ONCE .ROUTE; Start 09/14/24 at 07:29; Stop 09/14/24 at 07:29; Status DC Ropivacaine 150 mg STK-MED ONCE .ROUTE; Start 09/14/24 at 07:37; Stop 09/14/24 at 07:37; Status DC Ropivacaine 150 mg STK-MED ONCE .ROUTE; Start 09/14/24 at 07:43; Stop 09/14/24 at 07:43; Status DC Lidocaine/ Epinephrine 20 ml STK-MED ONCE IJ; Start 09/14/24 at 07:43; Stop 09/14/24 at 07:44; Status DC Phenylephrine HCl 10 mg STK-MED ONCE IV; Start 09/14/24 at 07:44; Stop 09/14/24 at 07:44; Status DC Succinylcholine Chloride 200 mg STK-MED ONCE .ROUTE; Start 09/14/24 at 07:48; Stop 09/14/24 at 07:48; Status DC Ondansetron HCl 4 mg STK-MED ONCE .ROUTE; Start 09/14/24 at 08:53; Stop 09/14/24 at 08:53; Status DC Fentanyl Citrate 100 mcg STK-MED ONCE .ROUTE; Start 09/14/24 at 09:37; Stop 09/14/24 at 09:37; Status DC Hydromorphone HCl 0.2 mg ONCE ONCE IVP Last administered on 09/14/24at 14:19; Start 09/14/24 at 14:00; Stop 09/14/24 at 14:01; Status DC Ketorolac Tromethamine 15 mg Q6H PRN IV Last administered on 09/16/24at 04:25; Start 09/14/24 at 14:00; Stop 09/19/24 at 13:59 Gabapentin 100 mg TID PO Last administered on 09/16/24at 09:27; Start 09/14/24 at 21:00; Stop 10/14/24 at 20:59 Potassium Chloride 100 ml @ 100 mls/hr AD PRN IV; Start 09/14/24 at 18:30; Stop 10/14/24 at 18:29 Potassium Chloride 20 meq AD PRN PO Last administered on 09/14/24at 18:06; Start 09/14/24 at 18:30; Stop 10/14/24 at 18:29 Potassium Chloride 20 meq AD PRN PO Last administered on 09/14/24at 23:13; Start 09/14/24 at 18:30; Stop 10/14/24 at 18:29 Hydromorphone HCl 0.5 mg Q6H PRN IVP Last administered on 09/16/24at 09:24; Start 09/15/24 at 18:00; Stop 09/20/24 at 17:59 RJ BROWNE MD Sep 16, 2024 11:02
[2024-09-16 12:00] VITALS: BP 146/70; PULSE 77; RESP 19; TEMP 97.8
[2024-09-16 16:00] VITALS: BP 131/77; PULSE 71; RESP 19; TEMP 97.1
[2024-09-16 20:00] VITALS: BP 131/69; PULSE 69; RESP 18; TEMP 98; O2SAT 99
[2024-09-17] VITALS (7 sets, daily range): BP systolic 113–137; BP diastolic 62–74; PULSE 66–82; RESP 18–19; TEMP 97.5–98.2; O2SAT 97–99
--- NOTE | 2024-09-17 11:26 | PN ---
[facility] PROGRESS NOTE Date of Service: Sep 17, 2024 Time of Service: 11:14 SUBJECTIVE: Ms. Cordero is a 59-year-old female states that she came to the emergency department with a chief complaint of foot pain. Onset was August 20, 2024. Location is to right foot. Duration is constant. Character is described as aching. There was no alleviating factors. Symptoms are aggravated by toes being black. Patient states she was hospitalized about three weeks ago at [facility] and was told that she will eventually need amputation of her toes. Patient denies any associated fever or chills. Right foot x-ray shows osteopenia. No fractures or dislocations. No bone destruction to suggest osteomyelitis. Soft tissue swelling over the dorsum and plantar aspects of the foot with soft tissue air consistent with soft tissue emphysema, soft tissue gangrene. arterial usg -PVD, ct angio abd aorta w/runoff-The vascular examination is abnormal. There is a patent stent of theright proximal superficial femoral artery. Right runoff is preserved. Onthe left side, the posterior tibial artery provides the only runoff. The anterior tibial artery and interosseous artery are occluded. 09/12- patient was scheduled for surgery today, but couldn't be done as the patient has h/o coronary stenting x4 on 07/17/2024 and has not been on consistent dual antiplatelet therapy. Although the patient is scheduled for BKA, cardiology must evaluate the possibility of occlusion of the coronary stents. cardio started the patient on aspirin on 81 mg. unable to start the patient on heparin as she has had a drop in her hemoglobin from 11.2 down to 8.3. recheck her hemoglobin in the morning. ordered a 2D echo for further stratification. Further recommendations to follow. 09/13 - patient seen at bedside. No overnight acute events. Patient awaiting 2D echo results for cardiac clearance for scheduled BKA. Possible BKA scheduled for Saturday. Holding the heparin drip due to drop in hemoglobin. Patient to continue on aspirin. We will continue to follow recommendations per consult. Patient's electrolytes within normal limits hemoglobin 8 white count 7.5 vancom ycin trough 11.2. Patient continues on vancomycin and Zosyn. 09/14 - no overnight acute events. patient currently in OR for BKA. patient urine culture positive for MRSA and e.coli. ID consulted. Will follow up with patient post-op. Will follow recommendations per surgery. 09/15 - patient seen at bedside status post day 1 of BKA. patient tolerating diet. complains of mild pain. patient on toradol and gabapentin for pain management. Cultures taken from now amputated foot show ESBL, patient on IV Zosyn and vancomycin. patient scheduled for PT today. Will require PT rehab, awaiting placement. Surgery has cleared patient and requests follow up outpatient. 09/16/24 - patient seen at bedside. no overnight acute events. patient pain being managed adequately. per infectious disease, patient on IV Zosyn and vancomycin. Patient awaiting PT rehab placement. will switch to pral pain medications as tolerated. follow recommendations per Infectious Disease 09/17/24 - patient seen at bedside. No overnight acute events. awaiting placement for [facility]. Patient pain being managed, will switch to oral from IV. Patient remains on IV antibiotics. Will follow recommendations per infectious disease. REVIEW OF SYSTEMS CONSTITUTIONAL: Denies fevers, chills, or night sweats. No unintentional weight loss reported. NEUROLOGICAL: Denies headache, amaurosis fugax, motor weakness, sensory deficit, vertigo/spinning sensation, gait abnormalities, or tremors. ENT: No hearing loss, otalgia, otorrhea, rhinitis, rhinorrhea, hoarseness, or sore throat. CARDIOVASCULAR: Denies any exertional angina, dyspnea on exertion, orthopnea, paroxysmal nocturnal dyspnea, palpitations, life-threatening arrhythmias, claudication. PULMONARY: Denies any shortness of breath, cough, phlegm/sputum, hemoptysis, pleuritic chest pain. SLEEP: Denies morning headaches, daytime somnolence or napping. Denies difficulty falling asleep, staying asleep, waking from sleep. Denies knowledge of snoring. GASTROINTESTINAL: Denies any type of dysphagia to either liquids or solids. Denies nausea, vomiting, pyrosis, early satiety, abdominal pain, diarrhea, constipation, or changes in stool consistency or caliber. Denies coffee-ground emesis, hematemesis, hematochezia, or melanotic stools. GENITOURINARY: Denies frequency, urgency, nocturia, hematuria or incontinence (Storage/Irritative symptoms.) Low urinary stream, straining to void, urinary intermittency or hesitancy, splitting of the voiding stream, terminal dribbling. ENDOCRINOLOGIC: Denies polyuria, polydipsia, polyphagia or heat/cold intolerances. HEMATOLOGIC: Denies thrombophilia/previous clots, or coagulopathy/bleeding disorders. ONCOLOGIC: Denies personal history of malignancy. DERMATOLOGIC: Denies rashes or pruritus. PSYCHIATRIC: Denies any suicidal or homicidal ideation. Denies hallucinations. PHYSICAL EXAM GENERAL APPEARANCE: The patient is awake, alert, and oriented, in no acute cardiopulmonary distress. NEUROLOGICAL: Cranial nerves II-XII grossly intact. Motor is 5/5 in bilateral upper and lower extremities proximal to distal. No sensory deficits. HEENT: Face is symmetric. Pupils are equal and reactive. Extraocular movements are intact. NECK: Supple. No JVD. No thyromegaly. No submental, submandibular, pre-/postau ricular, occipital or supraclavicular lymphadenopathy. CHEST: Normal chest expansion. No Telemetry. LUNGS: Absence of any rales, rhonchi or any wheezing. CARDIOVASCULAR: Regular. S1 and S2 normal. No appreciable rubs, murmurs or gallops. ABDOMEN: Soft, nontender, and nondistended. There is no rebound, voluntary guarding, or rigidity. : Deferred. No [place]. EXTREMITIES: Non-edematous and not cyanotic. No clubbing. Good capillary refill. SKIN: No skin breakdown. Vital Signs (last 8hr) Date Time Temp Pulse Resp B/P (MAP) Pulse Ox O2 Delivery O2 Flow Rate FiO2 09/17/24 08:00 98.1 82 19 128/67 97 Room Air 0.0 09/17/24 04:00 98.2 70 18 119/67 95 Room Air LABS: Laboratory: Test 09/17/24 05:17 09/16/24 11:50 Range/Units Whole Blood Glucose 128 H 70-110 MG/DL Vancomycin Level Trough 18.4 10.0-20.0 UG/ML Current Medications Medications (Trade) Dose Ordered Sig/Toby Route PRN Reason Start Time Stop Time Status Last Admin Dose Admin Acetaminophen (TYLenol 650MG SUPPOSITORY) 650 mg Q6H PRN RC MILD PAIN (1-3) 09/11/24 20:00 10/11/24 19:59 Aspirin (Aspirin 81mg Ec Tab) 81 mg DAILY PO 09/13/24 09:00 10/13/24 08:59 09/17/24 08:41 81 MG Famotidine (Pepcid 20mg Vial) 20 mg DAILY IV 09/12/24 09:00 10/12/24 08:59 09/17/24 08:41 20 MG Gabapentin (NEURontin 100 mg CAP) 100 mg TID PO 09/14/24 21:00 10/14/24 20:59 09/17/24 08:41 100 MG Hydralazine HCl (APRESOLine 20MG INJ) 10 mg Q6H PRN IV For:SBP above 160;DBP above 90 09/11/24 20:00 10/11/24 19:59 Hydromorphone HCl (DiLAUDid 0.5MG INJ) 0.5 mg Q6H PRN IVP SEVERE PAIN (7-10) 09/15/24 18:00 09/20/24 17:59 09/16/24 09:24 0.5 MG Insulin Human Regular (humuLIN R 100 UNIT/ML 3ML) INSULIN SLIDING SCAL... ACHS SQ 09/11/24 21:00 10/11/24 20:59 09/16/24 21:20 3 UNIT Ketorolac Tromethamine (toRADol) 15 mg Q6H PRN IV MODERATE PAIN (4-6) 09/14/24 14:00 09/19/24 13:59 09/17/24 08:41 15 MG Lactated Ringer's 1,000 ml @ 75 mls/hr [id number] IV 09/11/24 20:00 10/11/24 19:59 09/17/24 08:42 75 MLS/HR Morphine Sulfate (morPHINE 2MG SYG) 2 mg Q4H PRN IVP SEVERE PAIN (7-10) 09/11/24 20:00 09/15/24 18:01 DC 09/15/24 16:24 2 MG Nitroglycerin (Nitroglycerin 1gm Oint) 0.5 inch Q8H TD 09/12/24 22:30 10/12/24 22:29 09/17/24 06:07 0.5 INCH Ondansetron HCl (zoFRAN 4MG INJ) 4 mg Q6H PRN IV NAUSEA/VOMITING 09/11/24 20:00 10/11/24 19:59 Piperacillin Sod/ Tazobactam Sod 50 ml @ 200 mls/hr STAT STAT IVPB 09/11/24 17:33 09/11/24 17:47 DC 09/11/24 18:21 200 MLS/HR Piperacillin Sod/ Tazobactam Sod (Zosyn 3.375gm+NS 50ml) 3.375 gm Q8H IV 09/11/24 02:00 09/21/24 01:59 09/17/24 09:58 3.375 GM Piperacillin Sod/ Tazobactam Sod (Zosyn 3.375gm+NS 50ml) 3.375 gm Q8H IV 09/11/24 20:00 09/11/24 20:15 DC Potassium Chloride 100 ml @ 100 mls/hr AD PRN IV POTASSIUM PROTOCOL 09/14/24 18:30 10/14/24 18:29 Potassium Chloride (K-Dur/Klor-Con 20meq) 20 meq AD PRN PO POTASSIUM PROTOCOL 09/14/24 18:30 10/14/24 18:29 09/14/24 23:13 20 MEQ Potassium Chloride (KCl 10% Elixir 20meq/15ml) 20 meq AD PRN PO POTASSIUM PROTOCOL 09/14/24 18:30 10/14/24 18:29 09/14/24 18:06 20 MEQ Vancomycin HCl (Vancomycin 750mg) 750 mg Q8H IVPB 09/12/24 05:00 09/22/24 04:59 09/17/24 06:07 750 MG Vancomycin HCl (Vancomycin Protocol) 1 each AD IV 09/11/24 20:00 09/25/24 19:59 DIAGNOSTICS / RADIOLOGY: [ ] ASSESSMENT: Gas gangrene right foot, POA - s/p BKA on 09/14 Right foot necrosis, POA Diabetes mellitius type2 Hypertension UA positive for MRSA and E.coli PLAN: follow up post op BKA [facility] facility placement - case management - [facility] as inpatient status. Hold heparin drip due to drop in hemoglobin. Continue on aspirin recheck hemogl obin in morning. Empiric antibiotic therapy with vancomycin and Zosyn Check hemoglobin A1c in a.m. Glucometer checks a.c. and HS Humulin R sliding scale 1/2 dose. GI prophylaxis, famotidine 20 mg IV once daily. DVT prophylaxis, Ramirez's and SCDs avoid anticoagulation at this time due to impending surgical evaluation. ATTESTATION BY PHYSICIAN I have seen and examined the patient. I reviewed the documentation, medical decision making, and treatment plan as noted by the resident provider above. I agree with the findings and plan of care. Lorraine King MD, PRIYA N Sep 17, 2024 11:26
[2024-09-17] MEDS ORDERED: traMADol HCL 50 MG TABLET PO PRN (11:30)
--- NOTE | 2024-09-17 18:46 | NUR ---
DR. COOK AWARE THAT PATIENT ACCEPTED TO [facility], PLAN TO DC IN AM.
[2024-09-18] VITALS: BP 127/71; PULSE 69; RESP 19; TEMP 98.1
[2024-09-18 04:00] VITALS: BP 120/71; PULSE 69; RESP 20; TEMP 98.2
[2024-09-18 04:46] LABS: BASOPHILS # (AUTO) 0.03 K/uL (0.00-0.20); BASOPHILS % (AUTO) 0.4 % (0.0-5.0); EOSINOPHILS # (AUTO) 0.29 K/uL (0.00-0.70); EOSINOPHILS % (AUTO) 4.1 % (0.0-8.0); IMMATURE GRANULOCYTE ABSOLUTE 0.02 K/uL (0-1); LYMPHOCYTES # (AUTO) 2.1 K/uL (1.0-4.8); LYMPHOCYTES % (AUTO) 30.3 % (21.0-51.0); MEAN CORPUSCULAR HEMOGLOBIN 26.3 pg (27.0-33.0); MEAN CORPUSCULAR HGB CONC 29.6 g/dL (32.0-36.0); MEAN CORPUSCULAR VOLUME 88.9 fL (79-99); MONOCYTES # (AUTO) 0.6 K/uL (0.1-1.0); MONOCYTES % (AUTO) 8.4 % (3.0-13.0); NEUTROPHILS % (AUTO) 56.5 % (40.0-77.0); PLATELET COUNT (AUTO) 417 K/uL (130-400); RED BLOOD CELL COUNT(AUTO) 3.15 MIL/uL (4.00-5.50); RED CELL DISTRIBUTION WIDTH 15.4 % (11.0-15.5)
[2024-09-18 05:06] LABS: ALBUMIN 1.7 g/dL (3.5-5.0); BILIRUBIN,TOTAL 0.2 mg/dL (0.2-1.0); CREATININE 0.7 mg/dL (0.5-1.0); POTASSIUM 3.2 mmol/L (3.5-5.1); TOTAL PROTEIN, SERUM 5.7 g/dL (6.0-8.3)
[2024-09-18 07:05] LABS: EOSINOPHILS % (MANUAL) 1 % (1-6); LYMPHOCYTES % (MANUAL) 26 % (22-44); MAN.DIFF COMMENT-IMPRESSION MANUAL DIFFERENTIAL; MONOCYTES % (MANUAL) 8 % (2-9); SEGMENTED NEUTROPHILS % 65 % (40-70); TOTAL CELLS COUNTED 100
[2024-09-18 07:55] VITALS: O2SAT 96
[2024-09-18 08:00] VITALS: BP 128/84; PULSE 72; RESP 16; TEMP 98.2
--- NOTE | 2024-09-18 10:40 | DS ---
Discharge Summary Hospital Course Summary: Patient's, as a 59-year-old female, was admitted on September 11, 2024, with a diagnosis of gas gangrene of the right foot. She reported a history of persistent, worsening foot pain that began on August 20, 2024, characterized by black discoloration of the toes and constant aching pain. She had previously been hospitalized3 weeks earlier at [facility], where she was informed that amputation would eventually be required. On admission, she denies systemic symptoms such as fever or chills. Imaging studies, including a right foot x-ray, revealed osteopenia, soft tissue swelling with emphysema, and findings consistent with gas gangrene, but no fractures, discolorations, or evidence of osteomyelitis. Consultations were obtained from General surgery, Cardiology, Podiatry, and Infectious Disease. General surgery blood by Dr. Ruby, recommended surgical intervention, and Cardiology cleared the patient for surgery. Podiatry concurred with the need for amputation, while Infectious Disease initiated intravenous Zosyn and vancomycin to manage the infection. On September 14, 2024, the patient underwent a right mid-level below-knee amputation. The procedure wa s completed without complications, and the surgical wound was closed with riley. Postoperatively, the patient's pain was managed effectively with analgesics, and she continued on the intravenous antibiotics Zosyn and vancomycin throughout her hospital stay. Physical therapy was initiated early to promote recovery mobility, and the patient demonstrated good progress. She was ultimately cleared for transfer to the [facility] for continued physical therapy and rehabilitation. At the time of discharge, the patient was stable, hemodynamically sounds, and without signs of systemic infection or acute d istress. She was appropriately prepared for her rehabilitation program discharged in good condition. Ground Layer(s): General surgery Cardiology Infectious disease Podiatry Procedure(s): [place] [address] [address] IMAGING REPORT Signed PATIENT: SHAHZAD PAGE MR#: [id number] : 1965 SEX: F AGE: 59 LOCATION: [facility] ORDER 35 STATUS: REG REPORT#: [id number] SERVICE 173 REASON: cellulitis ORDERING PHYSICIAN: BRADEN VERAS INSPECTOR SEMICONDUCTOR WAFER PROCEDURE: FT 3VW RT - FOOT COMP 3+VWS RT Exam Type: FOOT COMP 3+VWS RT Clinical Information: cellulitis Comparison: None Findings and impression: Osteopenia. No fractures or dislocations. No bone destruction to suggest osteomyelitis. Soft tissue swelling over the dorsum and plantar aspects of the foot, with soft tissue air consistent with soft tissue emphysema, soft tissue gangrene. DICTATED BY: CHRISTOPH KRISHNA MD DATE: 09/11/241821 ELECTRONICALLY SIGNED BY: CHRISTOPH KRISHNA MD DATE: 09/11/241826 [facility] [address] [place] [id number] IMAGING REPORT Signed PATIENT: SHAHZAD PAGE MR#: [id number] : 1965 SEX: F AGE: 59 [facility] 04 STATUS: ADM IN REPORT#: [id number] SERVICE 56 REASON: preprocedural ORDERING PHYSICIAN: STEVEN LINDO INSPECTOR SEMICONDUCTOR WAFER PROCEDURE: CXR1VW - CHEST 1VW INDICATION: preprocedural TECHNIQUE: CHEST 1VW COMPARISON: 09/05/2018 FINDINGS/IMPRESSION: Prominent bilateral interstitial markings which may represent bronchitis or vascular congestion in the proper clinical setting. Cardiac silhouette is within normal limits. Mild degenerative changes of the spine. The visualized upper abdomen appears unremarkable. DICTATED BY: DANIELITO FITCH MD DATE: 09/11/242041 ELECTRONICALLY SIGNED BY: DANIELITO FITCH MD DATE: 09/11/242044 [facility] [address] [place] [id number] IMAGING REPORT Signed PATIENT: SHAHZAD PAGE MR#: [id number] : 1965 SEX: F AGE: 59 LOCATION: [facility] ORDER 09 STATUS: ADM IN REPORT#: [id number] SERVICE 08 REASON: right foot necrosis ORDERING PHYSICIAN: STEVEN LINDO INSPECTOR SEMICONDUCTOR WAFER PROCEDURE: ART B LE - US ARTERIAL BILAT LOW EXT DUPL Exam Type: US ARTERIAL BILAT LOW EXT DUPL Clinical Information: right foot necrosis Comparison: None Findings: Diffuse bilateral plaque is identified. There are normal triphasic waveforms of the right common femoral artery through the distal superficial femoral artery, left common femoral artery through the popliteal artery, left posterior tibial artery. There are biphasic waveforms of the left anterior tibial artery, left dorsalis pedis artery, consistent with moderate nonocclusive hemodynamically significant disease. There are monophasic abnormal waveforms of the right popliteal artery, right posterior tibial artery consistent with severe nonocclusive disease. The right anterior tibial artery and dorsalis pedis artery are occluded. IMPRESSION: Peripheral vascular disease as noted. DICTATED BY: CHRISTOPH KRISHNA MD DATE: 09/12/24825 ELECTRONICALLY SIGNED BY: CHRISTOPH KRISHNA MD DATE: 09/12/248[address] [place] [address] IMAGING REPORT Signed PATIENT: SHAHZAD PAGE MR#: [id number] : 1965 SEX: F AGE: 59 LOCATION: [facility] ORDER 1050 STATUS: ADM IN REPORT#: [id number] SERVICE 1045 REASON: RIGHT FOOT GANGRENE ORDERING PHYSICIAN: RJ RUBY MD PROCEDURE: CTA ABDAOR - CT ANGIO ABD AORTA W RUNOFF Exam Type: CT angiogram abdomen and pelvis and lower extremities run-off with contrast Exam Type: CT ANGIO ABD AORTA W RUNOFF Clinical Information: RIGHT FOOT GANGRENE Comparison: None Technique: Routine helical scanning at 5mm collimation through the abdomen and pelvis after contrast administration. In addition, sagittal and coronary formations of the abdomen pelvis and surface rendering three-dimensional reconstructions of the abdominal aorta and the bilateral lower extremity arterial system were performed. Findings: The vascular examination is abnormal. There is a patent stent of the right proximal superficial femoral artery. Right runoff is preserved. On the left side, the posterior tibial artery provides the only runoff. The anterior tibial artery and interosseous artery are occluded. There is no aortic aneurysm. There is no occlusion. There is no dissection. There is no extravasation to suggest laceration or rupture. No evidence of nephro or ureterolithiasis is found. No hydronephrosis or ureteral dilatation is seen. The visualized portion of the stomach is unremarkable. It shows no wall thickening. No gross ulceration is seen. It is not overly distended. There are no surrounding inflammatory changes. No wall lesions are identified to suggest cancer. The visualized portion of the spleen is unremarkable. It is not enlarged. The pancreas shows normal anatomy. It is not fatty replaced. It shows no lesions. The pancreatic duct is not dilated. The gallbladder is unremarkable. It shows no cholelithiasis. The gallbladder wall is normal in thickness. There is no pericholecystic fluid. The is no acute or chronic inflammation noted. The adrenal glands are unremarkable. There is no enlargement. No lesions are noted. The visualized portion of the liver is unremarkable. It shows no focal masses. The appendix is unremarkable. It shows no evidence of inflammation. No appendicolith is seen. Large right lower anterior abdominal wall hernia containing bowel loops without incarceration or strangulation and the rest of the large and small bowel loops appear unremarkable throughout. The urinary bladder is unremarkable. There is no wall thickening to suggest tumor or inflammation. There are no intraluminal calculi. There are no diverticula. There is no evidence of chronic bladder outlet obstruction. There is no evidence of urinary bladder distention to suggest urinary retention. The other pelvic structures are unremarkable. Soft tissue gangrene throughout the right foot is seen. No bone destruction noted to suggest osteomyelitis. Old healed fractures of the obturator rings seen bilaterally. Fluid collection anterior and lateral to the tibia at mid leg level is seen on the right side measuring 2.6 x 3.7 cm. This may represent a muscle hematoma but the possibility of an abscess must also be entertained. Similar more distally located collection is noted high in the tibia superior to the ankle level also seen, smaller. IMPRESSION: The vascular examination is abnormal. There is a patent stent of the right proximal superficial femoral artery. Right runoff is preserved. On the left side, the posterior tibial artery provides the only runoff. The anterior tibial artery and interosseous artery are occluded. Soft tissue gangrene throughout the right foot is seen. No bone destruction noted to suggest osteomyelitis. Fluid collections of the right lower extremity which may represent abscesses. This study was performed using dose reduction techniques to include automated exposure control and/or adjustment of the mA and/or kV according to patient size. DICTATED BY: CHRISTOPH KRISHNA MD DATE: 09/12/241204 ELECTRONICALLY SIGNED BY: CHRISTOPH KRISHNA MD DATE: 09/12/24 1214 [place] [address] [place] [id number] IMAGING REPORT Signed PATIENT: SHAHZAD PAGE MR#: [id number] : 1965 SEX: F AGE: 59 LOCATION: [facility] ORDER 04 STATUS: ADM IN REPORT#: [id number] SERVICE 02 REASON: Cardiac stents in July 2024, no anti platelet therapy, Heart murmur ORDERING PHYSICIAN: SHRUTI GUZMAN PROCEDURE: ECHO CMP - ECHO 2-D COMPLETE APPROVED REPORT EXAM: Two-dimensional and M-mode echocardiogram with Doppler and color Doppler. INDICATION ICD: cardiac stent Murmur 2D Dimensions RVDd 3.1 cm LVEF(%) 52.9 (>50%) LVED Vol(simp.) 114.0 mL IVSd 0.7 (0.7-1.1cm) FS(%) 27 % LVES Vol(simp.) 54.5 mL LVDd 4.8 (3.8-5.6cm) LA (2D) 2.8 (1.6-4.0cm) LVEF(%, simp.) 52 % PWd 1.1 (0.7-1.1cm) Ao Root(2D) 2.9 (2.0-3.7cm) LA ESV INDEX (4CH) 21.90 mL/m2 IVSs 1.0 cm LVOT diam 2.0 (1.8-2.4cm) LA ESV INDEX (2CH) 47.70 mL/m2 LVDs 3.5 (2.5-4.0cm) LA ESV INDEX (BP) 36.40 mL/m2 PWs 1.5 cm M-Mode Dimensions EPSS 1.5 cm LA (MM) 2.4 (1.6-4.0cm) Ao Root(MM) 2.7 (2.0-3.7cm) Aortic Valve AoV VTI 0.5 m Ao Mean GR 7.0 mmHg LVOT VTI 0.20 m ANDRES (VMAX) 1.3 cm2 ANDRES (VTI) 1.3 cm2 Mitral Valve MV E Vmax 125.6 cm/s DECEL Time 229 ms MV A Vmax 98.5 cm/s P 1/2 T 74 ms E/A ratio 1.3 MVA (PHT) 3.0 cm2 TDI E/E' Medial 25.6 E/E' Lateral 25.6 Medial E' Peak V 4.90 cm/s Lateral E' Peak V 4.90 cm/s Left Ventricle The left ventricle is normal size. Mild anteroseptal hypokinesis There is normal left ventricular wall thickness. LVEF is 45-50%. The left ventricular diastolic function is normal. Right Ventricle The right ventricle is normal size. The right ventricular systolic function is normal. Atria The left atrium size is normal. The right atrium size is normal. Aortic Valve The aortic valve is normal in structure. No aortic regurgitation is present. There is no aortic valvular stenosis. Mitral Valve The mitral valve is normal in structure. There is no mitral valve regurgitation noted. There is no mitral valve stenosis. Tricuspid Valve The tricuspid valve is normal in structure. There is no tricuspid valve regurgitation noted. Pulmonic Valve The pulmonary valve is normal in structure. There is no pulmonic valvular regurgitation. Great Vessels The aortic root is normal in size. The IVC is normal in size and collapses >50% with inspiration. Pericardium There is no pericardial effusion. Conclusion LVEF is 45-50%. Mild anteroseptal hypokinesis The left ventricular diastolic function is normal. DICTATED BY: AUBREY HONG MD DATE: 09/13/24 1136 ELECTRONICALLY SIGNED BY: AUBREY HONG MD DATE: 09/13/24 8066 Assessment/Plan: ASSESSMENT: Gas gangrene right foot, POA - s/p BKA on 09/14 Right foot necrosis, POA Diabetes mellitius type2 Hypertension UA positive for MRSA and E.coli Discharge Instructions: Follow up with PCP in 3-5 days post discharge from rehab facility. Follow up with General surgery post discharge from rehab facility. Continue to be monitored by Infectious Disease at nursing facility Home Medications: Reported Medications Dapagliflozin Propanediol (Farxiga) 10 Mg Tablet, 10 MG PO DAILY, TAB 09/12/24 Atorvastatin Calcium (LIPITOR) 40 Mg Tablet, 1 TAB PO HS for 30 Days, #30 TAB 0 Refills 09/12/24 Discontinued Scripts Metformin HCl (Metformin HCl) 500 Mg Tablet, 500 MG PO BID for 30 Days, #60 TAB Prov:TOMEKA SCHULTE AGPCNP 09/06/18 New Medications: Acetaminophen (Tylenol) 500 Mg Tab 1 TAB PO Q6HPRN PRN for pain or fever for 15 Days, #60 TAB 0 Refills Sulfamethoxazole/Trimethoprim (Bactrim 400-80 mg Tablet) 400 Mg-80 Mg Tablet 1 TAB PO BID for 10 Days, #20 TAB 0 Refills Continued Medications: Atorvastatin Calcium (Lipitor) 40 Mg Tablet 1 TAB PO HS for 30 Days, #30 TAB 0 Refills Dapagliflozin Propanediol (Farxiga) 10 Mg Tablet 10 MG PO DAILY, TAB Time spent arranging discharge: 1-30 minutes ATTESTATION BY PHYSICIAN I have seen and examined the patient. I reviewed the documentation, medical decision making, and treatment plan as noted by the resident provider above. I agree with the findings and plan of care. Lorraine King MD, PRIYA N Sep 18, 2024 10:40
[2024-09-18] MEDS ORDERED: SULF1TAB41 PO (10:55)
[2024-09-18] MEDS ORDERED: ACET-66 PO (10:55)
--- NOTE | 2024-09-18 11:55 | NUR ---
DC PLAN PATIENT ACCEPTED. [facility] [phone] NURSE NOTIFIES. TAMELA SENT. WILL GO VIA [facility]. Addendum: 09/18/24 at 1157 by MARCEL SANCHEZ RN CM Amended: Links added.
[2024-09-18 12:00] VITALS: BP 126/80; PULSE 74; RESP 16; TEMP 98.4
--- NOTE | 2024-09-18 12:07 | NUR ---
CALLED [facility] AND GAVE REPORT TO NURSE RADER. ALL QUESTIONS ANSWERED. PATIENT BEING DISCHARGED VIA [facility].
--- NOTE | 2024-09-18 12:38 | NUR ---
PATIENT ALERT AND ORIENTED, BEING DISCHARGED TO [facility]IA [facility]. IV REMOVED WITHOUT COMPLICATIONS. PATIENT EDUCATED THAT FACILITY WILL MAKE CALVIN FOR FOLLOW UPS POST DISCHARGE FROM [facility]. ALL QUESTIONS ANSWERED, PATIENT VERBALIZED UNDERSTANDING. PATIENT GATHERED ALL BELONGINGS AND TOOK QITH HER AT DISCHARGE. AWAITING TRANSPORTATION TO TRAFFIC [employer]PERATIONS ENGINEER THE PATIENT.
--- NOTE | 2024-09-18 13:50 | NUR ---
MARIANO GRAY PICKED UP PATIENT AT THIS TIME.
== END 2024-09-18 13:15 | DRG 239 ==
LOC: EDH 16:45 → EDHIP 19:57 → 4CH 21:43
PROVIDERS: ADMIT Internal Medicine; ATTEND Internal Medicine
PROC: 30233N1 Transfusion of Nonautologous Red Blood Cells into Peripheral Vein, Percutaneous Approach (ICD-10-PCS; 2024-09-14)
PROC: 0Y6F0ZZ Detachment at Right Knee Region, Open Approach (ICD-10-PCS; principal; 2024-09-14 07:40)
DX: E11.52 Type 2 diabetes mellitus with diabetic peripheral angiopathy with gangrene (principal); A48.0 Gas gangrene; L02.612 Cutaneous abscess of left foot; T79.7XXA Traumatic subcutaneous emphysema, initial encounter; Z16.24 Resistance to multiple antibiotics; Z16.12 Extended spectrum beta lactamase (ESBL) resistance; I10 Essential (primary) hypertension; F32.A Depression, unspecified; E78.5 Hyperlipidemia, unspecified; I25.5 Ischemic cardiomyopathy; I25.10 Atherosclerotic heart disease of native coronary artery without angina pectoris; B96.20 Unspecified Escherichia coli [E. coli] as the cause of diseases classified elsewhere; Z95.5 Presence of coronary angioplasty implant and graft; Z89.511 Acquired absence of right leg below knee; Z83.3 Family history of diabetes mellitus; Z82.49 Family history of ischemic heart disease and other diseases of the circulatory system; Z79.84 Long term (current) use of oral hypoglycemic drugs; I25.2 Old myocardial infarction; Z79.899 Other long term (current) drug therapy
CPT/HCPCS: 36415; 71045; 73630; 75635; 80048; 80053; 80202; 81001; 82550; 82948; 83036; 83605; 83735; 84100; 84484; 85014; 85018; 85025; 85027; 85610; 85730; 86850; 86900; 86901; 86923; 87040; 87070; 87076; 87086; 87186; 93005; 93306; 93925; 99285; G0378; J0330; J1171; J1815; J1885; J2250; J2270; J2371; J2405; J2543; J2704; J2795; J3010; J3370; J3480; J3490; J7030; P9016; Q9967; 3370; A4216; A4222; A4223; A4600; A4649; A6450

== ENCOUNTER 2024-11-02 11:10 | Emergency (ER) | payer BC ==
[~2024-11-02] VITALS: Ht 160 cm; Wt 51.3 kg
[~2024-11-02 11:10] MED LIST changes: +ACET-66 PO; +ATOR40TA69 PO; +DAPA10TA PO; -METF-444 PO; +SULF1TAB41 PO
--- NOTE | 2024-11-02 11:27 | ERN ---
ED Note History of Present Illness Stated Complaint: RECTAL PAIN Chief Complaint: Hemorrhoids Time Seen by MD: 11:24 Dictation: The patient is a 59-year-old female patient with a medical history that includes hypertension, hyperlipidemia, and type 2 diabetes mellitus, who has undergone a below-knee amputation on September 14, 2024, arrived at the emergency department via EMS with the primary complaint of rectal pain that began at 9:00 a.m. today. The patient has been experiencing diarrhea for the past two days, describing her bowel movements as watery. Additionally, she reports experiencing nausea, urinary frequency and urgency but denies any abdominal pain, vomiting, dizziness, or previous falls. She is uncertain about the presence of hematochezia. 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 coli and was discharged on 09/18/24. Allergies: Coded Allergies: No Known Drug Allergies (Unverified Allergy, Unknown, 09/06/18) Home Meds Active Scripts Cephalexin (Cephalexin) 500 Mg Tablet, 1 TAB PO BID for 7 Days, #14 TAB 0 Refills Prov:NITA COOK MD 11/02/24 Lidocaine/Prilocaine (Lidocaine-Prilocaine Cream) 2.5 %-2.5 % Kit, 1 GM TP DAILY for 10 Days, #10 GM 0 Refills Prov:NITA COOK MD 11/02/24 Acetaminophen (Tylenol) 500 Mg Tab, 1 TAB PO Q6HPRN PRN for pain or fever for 15 Days, #60 TAB 0 Refills Prov:MICHAEL COOK 09/18/24 Sulfamethoxazole/Trimethoprim (Bactrim 400-80 mg Tablet) 400 Mg-80 Mg Tablet, 1 TAB PO BID for 10 Days, #20 TAB 0 Refills Prov:MICHAEL COOK 09/18/24 Reported Medications Dapagliflozin Propanediol (Farxiga) 10 Mg Tablet, 10 MG PO DAILY, TAB 09/12/24 Atorvastatin Calcium (LIPITOR) 40 Mg Tablet, 1 TAB PO HS for 30 Days, #30 TAB 0 Refills 09/12/24 Past Medical History Past Medical History: Diabetes-Type II, High Cholesterol, Hypertension Surgical History: CABG Surgical History Other: LEFT BKA Review of System Dictation REVIEW OF SYSTEMS CONSTITUTIONAL: Denies fevers, chills, or night sweats. No unintentional weight loss reported. NEUROLOGICAL: Denies headache, amaurosis fugax, motor weakness, sensory deficit, vertigo/spinning sensation, gait abnormalities, or tremors. ENT: No hearing loss, otalgia, otorrhea, rhinitis, rhinorrhea, hoarseness, or sore throat. CARDIOVASCULAR: Denies any exertional angina, dyspnea on exertion, orthopnea, paroxysmal nocturnal dyspnea, palpitations, life-threatening arrhythmias, claudication. PULMONARY: Denies any shortness of breath, cough, phlegm/sputum, hemoptysis, pleuritic chest pain. SLEEP: Denies morning headaches, daytime somnolence or napping. Denies difficulty falling asleep, staying asleep, waking from sleep. Denies knowledge of snoring. GASTROINTESTINAL: C/o watery diarrhea, nausea Denies any type of dysphagia to either liquids or solids. Denies vomiting, pyrosis, early satiety, abdominal pain, constipation, or changes in stool consistency or caliber. Denies coffee- ground emesis, hematemesis, hematochezia, or melanotic stools. GENITOURINARY: c/o frequency, urgency, denies nocturia, hematuria or incontinence (Storage/Irritative symptoms.) Low urinary stream, straining to void, urinary intermittency or hesitancy, splitting of the voiding stream, terminal dribbling. ENDOCRINOLOGIC: Denies polyuria, polydipsia, polyphagia or heat/cold intolerances. HEMATOLOGIC: Denies thrombophilia/previous clots, or coagulopathy/bleeding disorders. ONCOLOGIC: Denies personal history of malignancy. DERMATOLOGIC: Right BKA, Denies rashes or pruritus. PSYCHIATRIC: Denies any suicidal or homicidal ideation. Denies hallucinations. Initial Vital Sign VS Vital Signs Date Time Temp Pulse Resp B/P (MAP) Pulse Ox O2 Delivery O2 Flow Rate FiO2 11/02/24 11:11 98.4 87 16 137/78 96 Room Air Physical Exam Dictation PHYSICAL EXAM GENERAL APPEARANCE: The patient is awake, alert, and oriented, and appears in some distress. NEUROLOGICAL: Cranial nerves II-XII grossly intact. Motor is 5/5 in bilateral upper and lower extremities proximal to distal. No sensory deficits. HEENT: Face is symmetric. Pupils are equal and reactive. Extraocular movements are intact. NECK: Supple. No JVD. No thyromegaly. No submental, submandibular, pre- /postauricular, occipital or supraclavicular lymphadenopathy. CHEST: Normal chest expansion. No Telemetry. LUNGS: Absence of any rales, rhonchi or any wheezing. CARDIOVASCULAR: Regular. S1 and S2 normal. No appreciable rubs, murmurs or gallops. ABDOMEN: non bleeding hemorrhoids were noted, a small Skin abrasion/wound over the gluteal cleft, Soft, nontender, and nondistended. There is no rebound, voluntary guarding, or rigidity. : Deferred. No [place]. EXTREMITIES: Right BKA, Non-edematous and not cyanotic. No clubbing. Good capillary refill. SKIN: No skin breakdown. Results (Laboratory/Radiology) Laboratory/Radiology Laboratory Tests Test 11/02/24 11:49 White Blood Count 8.6 K/uL (4.8-10.8) Red Blood Count 4.18 MIL/uL (4.00-5.50) Hemoglobin 11.1 g/dL (12.0-16.0) L Hematocrit 35.8 % (36-48) L Mean Corpuscular Volume 85.6 fL (79-99) Mean Corpuscular Hemoglobin 26.6 pg (27.0-33.0) L Mean Corpuscular Hemoglobin Concent 31.0 g/dL (32.0-36.0) L Red Cell Distribution Width 20.0 % (11.0-15.5) H Platelet Count 315 K/uL (130-400) Mean Platelet Volume 9.9 fL (7.5-10.5) Immature Granulocyte % (Auto) 0.2 % (0-1) Neutrophils (%) (Auto) 76.0 % (40.0-77.0) Lymphocytes (%) (Auto) 13.0 % (21.0-51.0) L Monocytes (%) (Auto) 7.4 % (3.0-13.0) Eosinophils (%) (Auto) 3.0 % (0.0-8.0) Basophils (%) (Auto) 0.4 % (0.0-5.0) Neutrophils # (Auto) 6.5 K/uL (1.8-7.7) Lymphocytes # (Auto) 1.1 K/uL (1.0-4.8) Monocytes # (Auto) 0.6 K/uL (0.1-1.0) Eosinophils # (Auto) 0.26 K/uL (0.00-0.70) Basophils # (Auto) 0.03 K/uL (0.00-0.20) Absolute Immature Granulocyte (auto 0.02 K/uL (0-1) Nucleated Red Blood Cells 0.0 % (0.0-0.19) Red Blood Cell Morphology See comments Sodium Level 136 mmol/L (136-145) Potassium Level 3.0 mmol/L (3.5-5.1) *L Chloride Level 100 mmol/L (101-111) L Carbon Dioxide Level 31 mmol/L (21-32) Blood Urea Nitrogen 7 mg/dL (7-18) Creatinine 0.4 mg/dL (0.5-1.0) L Glomerular Filtration Rate Calc 113 mL/min (>90) Random Glucose 160 mg/dL (70-105) H Total Calcium 9.4 mg/dL (8.5-10.1) Magnesium Level 2.00 mg/dL (1.80-2.40) Total Creatine Kinase 14 U/L (21-232) #L ED Course ED Course Orders Procedure Category Date Status Time Cbc With Differential LAB 11/02/24 Complete 11:24 Basic Metabolic Panel LAB 11/02/24 Complete 11:24 Urinalysis Profile LAB 11/02/24 Logged 11:24 Occult Blood Stool LAB 11/02/24 Logged Single Only 11:24 0.9%Nacl 1000ml (Ns PHA 11/02/24 Complete 1000ml) 11:30 Morphine 2mg Syg PHA 11/02/24 Complete (Morphine 2mg Syg) 11:30 Ondansetron 4mg Inj PHA 11/02/24 Complete (Zofran 4mg Inj) 11:30 Creatine Kinase, Total LAB 11/02/24 Complete 11:24 Lidocaine/Prilocaine PHA 11/02/24 Complete (Emla) 12:00 Magnesium LAB 11/02/24 Complete 12:37 Potassium Bicarb/Cit PHA 11/02/24 Complete Ac 25meq (K-Lyte Ta 13:00 Potassium Chloride PHA 11/02/24 Complete 10meq/100ml (Potassiu 13:00 Lidocaine Hcl 2% PHA 11/02/24 Complete Viscous (Lidocaine Hcl 15:00 Mag/Alum/Simeth 30ml PHA 11/02/24 Complete (Maalox Plus 30ml) 15:00 Pantoprazole 40mg Inj PHA 11/02/24 Complete (Protonix 40mg Inj 15:00 Dicyclomine Hcl PHA 11/02/24 Complete (Bentyl 10mg/5ml 15:00 Ceftriaxone 1g Vial PHA 11/02/24 Complete (Rocephine 1g Inj) 15:30 Current Medications Medications (Trade) Dose Ordered Sig/Toby Route PRN Reason Start Time Stop Time Status Last Admin Dose Admin Al Hydroxide/Mg Hydroxide (MAALox PLUS 30ML) 30 ml ONCE ONCE PO 11/02/24 15:00 11/02/24 15:02 DC 11/02/24 15:22 Ceftriaxone Sodium (ROCEphine 1G INJ) 1 gm ONCE ONCE IVPB 11/02/24 15:30 11/02/24 15:31 DC Dicyclomine HCl (Bentyl 10mg/5ml Syrup) 10 mg ONCE ONCE PO 11/02/24 15:00 11/02/24 15:02 DC 11/02/24 15:22 Lidocaine HCl (Lidocaine HCl 2% Viscous) 10 ml ONCE ONCE PO 11/02/24 15:00 11/02/24 15:02 DC 11/02/24 15:22 Lidocaine/ Prilocaine (Emla) 1 APPL TP ONCE ONE ONCE ONCE TP 11/02/24 12:00 11/02/24 12:03 DC 11/02/24 12:09 Morphine Sulfate (morPHINE 2MG SYG) 2 mg ONCE ONCE IVP 11/02/24 11:30 11/02/24 11:31 DC 11/02/24 11:46 Ondansetron HCl (zoFRAN 4MG INJ) 4 mg ONCE ONCE IVP 11/02/24 11:30 11/02/24 11:31 DC 11/02/24 11:46 Pantoprazole Sodium (PROTonix 40MG INJ) 40 mg ONCE ONCE IVP 11/02/24 15:00 11/02/24 15:02 DC 11/02/24 15:23 Potassium Bicarbonate (K-Lyte Tablet Eff 25 Meq Tablet.eff) 50 meq ONCE ONCE PO 11/02/24 13:00 11/02/24 13:01 DC 11/02/24 13:17 Potassium Chloride 100 ml @ 100 mls/hr ONCE ONCE IV 11/02/24 13:00 11/02/24 13:59 DC 11/02/24 13:17 Sodium Chloride 1,000 ml @ 0 mls/hr ONCE ONCE IV 11/02/24 11:30 11/02/24 11:31 DC 11/02/24 11:46 Vital Signs Date Time Temp Pulse Resp B/P (MAP) Pulse Ox O2 Delivery O2 Flow Rate FiO2 11/02/24 11:11 98.4 87 16 137/78 96 Room Air 15:40 Following the administration of IV Protonix, GI cocktail, IV Protonix, and morphine, the patient reports an improvement in her overall symptoms. She appears to be hemodynamically stable. The patient presents with a skin abrasion in the gluteal cleft, which does not appear to be associated with underlying cellulitis. Serum potassium levels were recorded at 3.0, and we have administered IV potassium to address this. At this juncture, we do not believe that inpatient admission or hospitalization is necessary. The patient is suitable for discharge to her home with a prescription for oral antibiotics and can be monitored as an outpatient by her primary care provider. Medical Decision Making MDM MDM Differential diagnosis: Gluteal cleft wound, Abrasion of skin around perianal region, Hemorrhoids, Rectal or anal pain, Hypokalemia Rationale: Tests considered and ordered secondary to shared decision making include: Previous outside records reviewed: Old ER visits. Risk of complication and/or morbidity or mortality of patient management: None Medications-Per medication reconciliation Need for hospitalization: Patient does not meet criteria for hospitalization. Need for emergency major/minor surgery: No There are no social concerns with this patient. Prescription drug management Prescriptions will include symptomatic care Patient's prior external medical records from other ER visits were reviewed by me as indicated. Prior testing and results from previous visits were reviewed. Prior tests were taken into account with medical decision making and resource utilization, independent historian/historians were used to obtain complete medical history. I independently interpreted the test that were performed, results were reviewed by me and considered findings on radiology if ordered. DX & DISP Disposition: Discharge Departure Impression: Primary Impression: Gluteal cleft wound Additional Impressions: Abrasion of skin, Hemorrhoids, Rectal or anal pain, Hypokalemia due to loss of potassium Condition: Stable Scripts Cephalexin (Cephalexin) 500 Mg Tablet 1 TAB PO BID for 7 Days, #14 TAB 0 Refills Prov: NITA COOK MD 11/02/24 Lidocaine/Prilocaine (Lidocaine-Prilocaine Cream) 2.5 %-2.5 % Kit 1 GM TP DAILY for 10 Days, #10 GM 0 Refills Prov: NITA COOK MD 11/02/24 Additional Instructions: Watch for redness, swelling, increasing pain, warmth, or pus around the area of skin abrasion, which could indicate infection and require medical attention. Start taking Cephalexin 500 mg PO BID for 7 days. Apply topical lidocaine over the wound/abrasion site for improvement of the pain. Eat more fiber-rich foods like whole grains, fruits, vegetables, and beans Take a stool softener or fiber supplement Soak in a warm bath or sitz bath several times a day Apply ice packs to reduce swelling Use [id number] hemorrhoid creams, ointments, or suppositories Use pads containing witch xiang or a numbing medicine Visit the nearest emergency department or call 911 should the symptoms get worse. Referrals: SELF,REFERRAL (PCP) I have reviewed, & agreed with my scribe's, documentation. I have reviewed the case, and I agree with, Diagnosis and Plan I have examined patient, & reviewed all documents, & agreed W/ the Diagnosis, and Plan NITA COOK MD Nov 02, 2024 11:27
[2024-11-02] MEDS: morPHINE 2 MG SYG IVP ONE (11:46)
[2024-11-02] MEDS: 0.9%NACL 1000ML 1,000 ML IV ONE (11:46)
[2024-11-02] MEDS: ondanSETRON 4MG INJ IVP ONE (11:46)
[2024-11-02 12:02] LABS: BASOPHILS # (AUTO) 0.03 K/uL (0.00-0.20); BASOPHILS % (AUTO) 0.4 % (0.0-5.0); EOSINOPHILS # (AUTO) 0.26 K/uL (0.00-0.70); HEMATOCRIT 35.8 % (36-48); IMMATURE GRANULOCYTE ABSOLUTE 0.02 K/uL (0-1); LYMPHOCYTES # (AUTO) 1.1 K/uL (1.0-4.8); MEAN CORPUSCULAR HEMOGLOBIN 26.6 pg (27.0-33.0); MEAN CORPUSCULAR VOLUME 85.6 fL (79-99); MONOCYTES # (AUTO) 0.6 K/uL (0.1-1.0); MONOCYTES % (AUTO) 7.4 % (3.0-13.0); NEUTROPHILS # (AUTO) 6.5 K/uL (1.8-7.7); PLATELET COUNT (AUTO) 315 K/uL (130-400); RED BLOOD CELL COUNT(AUTO) 4.18 MIL/uL (4.00-5.50); WHITE BLOOD COUNT (AUTO) 8.6 K/uL (4.8-10.8)
[2024-11-02] MEDS: LIDOCAINE/PRILOCAINE CREAM 5GM TUBE TP ONE (12:09)
[2024-11-02 12:19] LABS: CREATININE 0.4 mg/dL (0.5-1.0)
[2024-11-02] MEDS: PoTASSium BIcarbonate/CIT AC 25 MEQ TABLET.EFF PO ONE (13:17)
[2024-11-02] MEDS: PoTASSium chloRIDE 10MEQ/100ML 100 ML IV ONE (13:17)
[2024-11-02] MEDS: DICYCLOMINE HCL 10 MG/5 ML ML PO ONE (15:22)
[2024-11-02] MEDS: MAG/ALUM/SIMETH 30 ML UDCUP PO ONE (15:22)
[2024-11-02] MEDS: LIDOCAINE HCL 2% VISCOUS 15 ML UDCUP PO ONE (15:22)
[2024-11-02] MEDS: PANTOPrazole 40 MG/VIAL IVP ONE (15:23)
[2024-11-02] MEDS ORDERED: CEPH500T PO (15:39)
[2024-11-02] MEDS ORDERED: LIDO5CRE2 TP (15:39)
[2024-11-02] MEDS: cefTRIAXone 1G VIAL IVPB ONE (15:51)
[2024-11-02 16:00] VITALS: BP 121/70; PULSE 80; RESP 16; TEMP 98; O2SAT 97
== END 2024-11-02 16:48 | disposition home or self-care (01) ==
LOC: EDH 11:10
DX: K64.9 Unspecified hemorrhoids (principal); K62.89 Other specified diseases of anus and rectum; E87.6 Hypokalemia; E11.9 Type 2 diabetes mellitus without complications; E78.00 Pure hypercholesterolemia, unspecified; I10 Essential (primary) hypertension; Z79.84 Long term (current) use of oral hypoglycemic drugs; Z89.512 Acquired absence of left leg below knee; Z95.1 Presence of aortocoronary bypass graft
CPT/HCPCS: 99284; 96365; 96375; 96361; 96367; 82550; 83735; 80048; 85025; 36415; J2270; J0696; J2405; J2470; J3480; J3490

== ENCOUNTER 2024-11-04 15:24 | Inpatient (IN) | payer BC ==
[~2024-11-04] VITALS: Ht 152.4 cm; Wt 51.3 kg
[~2024-11-04 15:24] MED LIST changes: +CEPH500T PO; +LIDO5CRE2 TP
--- NOTE | 2024-11-04 15:47 | NUR ---
PT ASSIGNED TO MY ED BED 13 BUT IT IS CURRENTLY STILL BEING CLEANED. NO PT IN THERE AT THIS TIME.
--- NOTE | 2024-11-04 16:00 | NUR ---
PT JUST NOW PLACED IN MY ED BED 13
--- NOTE | 2024-11-04 16:34 | ERN ---
ED Note History of Present Illness Stated Complaint: CHEST PAIN Chief Complaint: Chest Pain Time Seen by MD: 15:34 Dictation: 59-year-old female presents to the ED for evaluation of chest pain onset one day ago. Patient reports fever, shortness a breath, abdominal pain, weakness, vomiting and black stools. Allergies: Coded Allergies: No Known Drug Allergies (Unverified Allergy, Unknown, 09/06/18) Home Meds Active Scripts Cephalexin (Cephalexin) 500 Mg Tablet, 1 TAB PO BID for 7 Days, #14 TAB 0 Refills Prov:NITA COOK MD 11/02/24 Lidocaine/Prilocaine (Lidocaine-Prilocaine Cream) 2.5 %-2.5 % Kit, 1 GM TP DAILY for 10 Days, #10 GM 0 Refills Prov:NITA COOK MD 11/02/24 Acetaminophen (Tylenol) 500 Mg Tab, 1 TAB PO Q6HPRN PRN for pain or fever for 15 Days, #60 TAB 0 Refills Prov:MICHAEL COOK 09/18/24 Sulfamethoxazole/Trimethoprim (Bactrim 400-80 mg Tablet) 400 Mg-80 Mg Tablet, 1 TAB PO BID for 10 Days, #20 TAB 0 Refills Prov:MICHAEL COOK 09/18/24 Reported Medications Dapagliflozin Propanediol (Farxiga) 10 Mg Tablet, 10 MG PO DAILY, TAB 09/12/24 Atorvastatin Calcium (LIPITOR) 40 Mg Tablet, 1 TAB PO HS for 30 Days, #30 TAB 0 Refills 09/12/24 Past Medical History Past Medical History: Diabetes-Type II, High Cholesterol, Heart Disease, Hypertension, [place] Surgical History: CABG Surgical History Other: RT BKA Review of System Dictation Constitutional: Positive for fever and weakness Eyes: Negative for injury, pain,redness, and discharge ENT: Negative for injury,pain or swelling Cardiovascular: Positive for chest pain Respiratory: Negative for shortness of breath, cough, and wheezing, Abdomen/GI: Positive for vomiting, black stools, negative for constipation, diarrhea of Back: Negative for injury and pain : Negative for injury, bleeding and discharge MS/Extremity: Negative for injury and deformity Skin: Negative for rash, and discoloration Neuro: Negative for headache, numbness, tingling, and seizure Psych: Negative for suicide ideation, homicidal ideation, and hallucinations Initial Vital Sign VS Vital Signs Date Time Temp Pulse Resp B/P (MAP) Pulse Ox O2 Delivery O2 Flow Rate FiO2 11/04/24 15:26 101.8 111 20 124/63 Room Air 11/04/24 16:33 99 0 21 Physical Exam Dictation General: awake, alert, patient appears weak Head/Face: Normocephalic, atraumatic Eyes: PERRL, EOMI, vision at baseline ENT: oral cavity clear, TMs clear, no signs of infection Neck: Trachea midline, supple, no nuchal rigidity Cardiovascular: Tachycardic, No MRGs, no JVD Respiratory: CTAB, no respiratory distress, No rales or wheezes Abdomen: Soft, non-tender, non-distended, normal bowel sounds, no guarding or rebound. Skin: Warm, dry, normal turgor, no rash MS/Extremity: Pulses equal, no cyanosis, neurovascular intact, FROM Neuro: COAx4, GCS 15, strength 5/5, CN 2-12 intact, normal cerebellar exam, normal gait, Psych: Normal behavior, mood, and affect normal Results (Laboratory/Radiology) Laboratory/Radiology Laboratory Tests Test 11/04/24 16:20 White Blood Count 14.8 K/uL (4.8-10.8) H Red Blood Count 4.03 MIL/uL (4.00-5.50) Hemoglobin 10.8 g/dL (12.0-16.0) L Hematocrit 34.5 % (36-48) L Mean Corpuscular Volume 85.6 fL (79-99) Mean Corpuscular Hemoglobin 26.8 pg (27.0-33.0) L Mean Corpuscular Hemoglobin Concent 31.3 g/dL (32.0-36.0) L Red Cell Distribution Width 19.5 % (11.0-15.5) H Platelet Count 325 K/uL (130-400) Mean Platelet Volume 10.1 fL (7.5-10.5) Immature Granulocyte % (Auto) 0.7 % (0-1) Neutrophils (%) (Auto) 81.1 % (40.0-77.0) H Lymphocytes (%) (Auto) 8.5 % (21.0-51.0) L Monocytes (%) (Auto) 9.1 % (3.0-13.0) Eosinophils (%) (Auto) 0.1 % (0.0-8.0) Basophils (%) (Auto) 0.5 % (0.0-5.0) Neutrophils # (Auto) 12.0 K/uL (1.8-7.7) H Lymphocytes # (Auto) 1.3 K/uL (1.0-4.8) Monocytes # (Auto) 1.4 K/uL (0.1-1.0) H Eosinophils # (Auto) 0.01 K/uL (0.00-0.70) Basophils # (Auto) 0.08 K/uL (0.00-0.20) Absolute Immature Granulocyte (auto 0.10 K/uL (0-1) Nucleated Red Blood Cells 0.0 % (0.0-0.19) White Cell Morphology Comment See comments Sodium Level 132 mmol/L (136-145) L Potassium Level 2.5 mmol/L (3.5-5.1) *L Chloride Level 94 mmol/L (101-111) L Carbon Dioxide Level 27 mmol/L (21-32) Blood Urea Nitrogen 6 mg/dL (7-18) L Creatinine 0.4 mg/dL (0.5-1.0) L Glomerular Filtration Rate Calc 113 mL/min (>90) Random Glucose 117 mg/dL (70-105) H Lactic Acid Level 1.5 mmol/L (0.8-2.5) Total Calcium 9.5 mg/dL (8.5-10.1) Total Bilirubin 0.5 mg/dL (0.2-1.0) Direct Bilirubin 0.1 mg/dL (0.0-0.3) Aspartate Amino Transf (AST/SGOT) 21 U/L (10-37) Alanine Aminotransferase (ALT/SGPT) 13 U/L (12-78) Alkaline Phosphatase 83 U/L (50-136) Troponin I High Sensitivity 12 ng/L (4-50) B-Type Natriuretic Peptide 121 pg/mL (0-100) H Total Protein 6.3 g/dL (6.0-8.3) Albumin 2.2 g/dL (3.5-5.0) L Labs Reviewed?: Yes EKG Comment: EKG 11/04/2024 time 1508 ventricular rate 101, MN 151, QRS D 87, QT 400. Sinus tachycardia, probable left atrial enlargement, consider anteroseptal infarct, prolonged QT interval. No STEMI ED Course ED Course Orders Procedure Category Date Status Time 12 Lead Ekg Tracing- EKG 11/04/24 Logged Technical 15:33 12 Lead Ekg Tracing- EKG 11/04/24 Logged Technical 15:35 B-Type Natriuretic LAB 11/04/24 Complete Peptide 15:35 Basic Metabolic Panel LAB 11/04/24 Complete 15:35 Cbc With Differential LAB 11/04/24 Complete 15:35 Hepatic Function Panel LAB 11/04/24 Complete 15:35 Troponin I High LAB 11/04/24 Complete Sensitivity 15:35 Chest 1vw RAD 11/04/24 Taken 15:35 Blood Cult MERI 11/04/24 In Process 15:36 Lactic Acid LAB 11/04/24 Complete 15:36 Urinalysis Profile LAB 11/04/24 Logged 15:36 Ct Abd/Pel Wo Con CT 11/04/24 Taken Renal/Appy 16:15 Ceftriaxone 2gm Vial PHA 11/04/24 Complete (Rocephin 2gm Inj) 16:30 0.9%Nacl 1000ml (Ns PHA 11/04/24 Complete 1000ml) 16:30 Ondansetron 4mg Inj PHA 11/04/24 Complete (Zofran 4mg Inj) 16:30 Ct Abd/Pel Wo Con CT 11/04/24 Logged Renal/Appy Magnesium 2gm Premix PHA 11/04/24 In Process 50ml (Magnesium 2gm 17:30 Potassium Chloride PHA 11/04/24 In Process 20meq/100ml (Potassiu 17:30 Admit Orders ADM 11/04/24 Transmitted 18:13 Current Medications Medications (Trade) Dose Ordered Sig/Toby Route PRN Reason Start Time Stop Time Status Last Admin Dose Admin Ceftriaxone Sodium (Rocephin 2gm Inj) 2 gm ONCE ONCE IVPB 11/04/24 16:30 11/04/24 16:31 DC 11/04/24 16:47 Magnesium Sulfate 50 ml @ 0 mls/hr PROTOCOL IV 11/04/24 17:30 12/04/24 17:29 Ondansetron HCl (zoFRAN 4MG INJ) 4 mg ONCE ONCE IVP 11/04/24 16:30 11/04/24 16:31 DC 11/04/24 16:47 Potassium Chloride 100 ml @ 50 mls/hr ONCE ONCE IV 11/04/24 17:30 11/04/24 19:29 11/04/24 17:41 Sodium Chloride 1,000 ml @ 0 mls/hr ONCE ONCE IV 11/04/24 16:30 11/04/24 16:31 DC 11/04/24 16:47 Vital Signs Date Time Temp Pulse Resp B/P (MAP) Pulse Ox O2 Delivery O2 Flow Rate FiO2 11/04/24 16:33 100 18 118/59 99 Room Air* 0 21 11/04/24 15:26 101.8 111 20 124/63 Room Air HEART Score Response (Comments) Value History: Moderate suspicion (+1) 1 EKG: Normal 0 Age: 45-65yrs (+1) 1 Risk Factors: 1-2 risk factors (+1) 1 Initial Troponin: Normal limit (0) 0 HEART Score Risk: Low Risk for MACE (1-3) Total 3 Medical Decision Making MDM MDM: Differential diagnosis: Dehydration, chest pain, sepsis Rationale: Tests considered and ordered secondary to shared decision making include: labs, ECG and radiology Previous outside records reviewed: Old ER visits. Risk of complication and/or morbidity or mortality of patient management: None Medications-Per medication reconciliation Need for hospitalization: Patient does meet criteria for hospitalization. Need for emergency major/minor surgery: No There are no social concerns with this patient. Patient's prior external medical records from other ER visits were reviewed by me as indicated. Prior testing and results from previous visits were reviewed. Prior tests were taken into account with medical decision making and resource utilization, independent historian/historians were used to obtain complete medical history. I independently interpreted the test that were performed, results were reviewed by me and considered findings on radiology if ordered. Medical management and examination interpretation discussions were had by me with other qualified healthcare professionals as indicated for the patient's care. Critical Care Note Critical Time: other (Total critical care time was 33 minutes. Excluding time for procedures. Management of critically ill patient with concern for acute decompensation. Management included interpretation of laboratory values and im aging, hemodynamics, time for consultation with consultants and admitting physician.) DX & DISP Disposition: Inpatient Decision to Admit Date: Nov 04, 2024 Decision to Admit Time: 18:05 Departure Impression: Primary Impression: Hypokalemia due to loss of potassium Additional Impressions: Dehydration, Chest pain Condition: Stable Referrals: CATHIE DUNBAR DO (PCP) ANIKA WHITE MD Nov 04, 2024 16:34
[2024-11-04 16:41] LABS: BASOPHILS # (AUTO) 0.08 K/uL (0.00-0.20); BASOPHILS % (AUTO) 0.5 % (0.0-5.0); EOSINOPHILS # (AUTO) 0.01 K/uL (0.00-0.70); EOSINOPHILS % (AUTO) 0.1 % (0.0-8.0); HEMATOCRIT 34.5 % (36-48); LYMPHOCYTES # (AUTO) 1.3 K/uL (1.0-4.8); LYMPHOCYTES % (AUTO) 8.5 % (21.0-51.0); MEAN CORPUSCULAR HEMOGLOBIN 26.8 pg (27.0-33.0); MEAN CORPUSCULAR HGB CONC 31.3 g/dL (32.0-36.0); MEAN CORPUSCULAR VOLUME 85.6 fL (79-99); MONOCYTES # (AUTO) 1.4 K/uL (0.1-1.0); MONOCYTES % (AUTO) 9.1 % (3.0-13.0); NEUTROPHILS % (AUTO) 81.1 % (40.0-77.0); PLATELET COUNT (AUTO) 325 K/uL (130-400); RED BLOOD CELL COUNT(AUTO) 4.03 MIL/uL (4.00-5.50); RED CELL DISTRIBUTION WIDTH 19.5 % (11.0-15.5); WHITE BLOOD COUNT (AUTO) 14.8 K/uL (4.8-10.8)
[2024-11-04] MEDS: ondanSETRON 4MG INJ IVP ONE (16:47)
[2024-11-04] MEDS: CEFTRIAXONE 2GM VIAL IVPB ONE (16:47)
[2024-11-04] MEDS: 0.9%NACL 1000ML 1,000 ML IV ONE (16:47)
[2024-11-04 17:06] LABS: ALBUMIN 2.2 g/dL (3.5-5.0); BILIRUBIN,DIRECT 0.1 mg/dL (0.0-0.3); BILIRUBIN,TOTAL 0.5 mg/dL (0.2-1.0); CREATININE 0.4 mg/dL (0.5-1.0); TOTAL PROTEIN, SERUM 6.3 g/dL (6.0-8.3)
[2024-11-04 17:14] LABS: POTASSIUM 2.5 mmol/L (3.5-5.1)
[2024-11-04 17:15] LABS: B-TYPE NATRIURETIC PEPTIDE 121 pg/mL (0-100)
[2024-11-04] MEDS: PoTASSium chloRIDE 20MEQ/100ML 100 ML IV ONE (17:41)
--- NOTE | 2024-11-04 18:14 | HP ---
History of Present Illness Reason for Visit: chest pain History of Present Illness Ms. Cordero is a 59-year-old female that was seen and examined today on 11/04/2024. Patient is a good historian of personal health Patient states that she came to the emergency department with a chief complaint of chest pain. Onset was today at noon. Location is midsternal. Duration is on and off. Patient reports three episodes. Each episode lasted 5-10 minutes. Character of pain described as pressure. There was no alleviating factors. There was no aggravating factors. Patient reports associated abdominal pain and diarrhea. Today in the emergency department WBCs 14.8, left shift neutrophils 81.1, potassium 2.5, no urinalysis has been collected or sent to lab, CT of abdomen and pelvis is pending radiology interpretation. Emergency room physician recommended that patient be admitted with a diagnosis of hypokalemia leukocytosis. Additionally patient arrived with a temperature of 101.8, heart rate 111 together with WBCs met clinical sirs criteria. Past Medical History Patient History: Autism Cardiovascular disease MOTHER SISTER Diabetes mellitus MOTHER FATHER BROTHER SISTER Hypertension MOTHER SISTER ADDITIONAL PAST MEDICAL HISTORY: [Diabetes mellitius type2, hypertension, myocardial infarction] SOCIAL HISTORY: [Negative for smoking, alcohol use, drug use. Patient lives with the Raymond Cordero. Patient has good access to health care through her insurance. Patient denies difficulty paying her bills. Patient is typically independent of all her ADLs. 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 Dyspnea, Edema, Lt Headedness, Other Gastrointestinal: Abdominal Pain, Diarrhea; No: Nausea, Vomiting, Constipation, Melena, Hematochezia, Other Genitourinary: No Dysuria, No Frequency, No Incontinence, No Hematuria, No Retention, No Other Musculoskeletal: No: other, neck pain, shoulder pain, arm pain, back pain, hand pain, leg pain, foot pain Skin: No Urticaria, No Rash, No Other Neurological: No: Weakness, Numbness, Incoordination, Change in speech, Confusion, Seizures, Other Allergies: Coded Allergies: No Known Drug Allergies (Unverified Allergy, Unknown, 09/06/18) Scheduled Atorvastatin Calcium (Lipitor), 1 TAB PO HS, (Reported) Cephalexin (Cephalexin), 1 TAB PO BID Dapagliflozin Propanediol (Farxiga), 10 MG PO DAILY, (Reported) Lidocaine/Prilocaine (Lidocaine-Prilocaine Cream), 1 GM TP DAILY Sulfamethoxazole/Trimethoprim (Bactrim 400-80 mg Tablet), 1 TAB PO BID Scheduled PRN Acetaminophen (Tylenol), 1 TAB PO Q6HPRN PRN for pain or fever Exam Vital Signs Vital Signs Date Time Temp Pulse Resp B/P (MAP) Pulse Ox O2 Delivery O2 Flow Rate FiO2 11/04/24 16:33 100 18 118/59 99 Room Air* 0 21 11/04/24 15:26 101.8 General Appearance: Alert, Oriented X3, Cooperative, No acute distress HEENT: Atraumatic, EOMI Respiratory: Clear to auscultation, Normal air movement, NL respiratory effort Cardiovascular: Regular rate, Regular rhythm, Normal S1, Normal S2 Abdominal: Normal bowel sounds, Soft, No tenderness Extremities: Other (Right BKA) Neuro: Normal speech, Sensation intact, Cranial nerves 3-12 NL Psych/Mental Status: Mental status NL, Mood NL, Thoughts/Content NL Assessment/Plan ASSESSMENT: [ Sirs, POA Hypokalemia, POA Leukocytosis, POA Chest pain, POA Diabetes mellitius type2 Hypertension] PLAN: [ Admit patient to pccu as inpatient status. Place patient on telemetry monitoring. Sirs, leukocytosis: Check procalcitonin, follow up with the results Reviewed patient's lactic acid, unremarkable, 1.5 Empiric antibiotic therapy with Zosyn Fluid resuscitation with lactated Ringer's 30 mL/kg Check blood culture, follow up with the results Ordered urinalysis which is pending to be collected and sent to lab Check stool GI PCR, follow up with the results Follow up with the results of CT abdomen and pelvis. Hypokalemia: Monitor patient's potassium. Replace potassium per hospital protocol. Check patient's magnesium. Replace magnesium per hospital protocol if needed Administer aspirin 162 mg by mouth times 1 dose Continue aspirin 81 mg by mouth once daily Nitroglycerin sublingual 0.4 mg as needed for chest pain every 5 minutes, max 3 doses, hold for systolic blood pressure less than 100 mmHg. s Trend troponin every 6 hours x 3 sets Supplemental oxygen to maintain O2 saturation greater than 92% Consult cardiology if any elevation in troponin or troponin uptrending Diabetes mellitus type 2: Check hemoglobin A1c in a.m. Glucometer checks a.c. and HS 1800 ADA diet Humulin R sliding scale Hypertension: Consider resuming home medications once they are reconciled. For now, Hydralazine 10 mg IV every 4 hours for systolic blood pressure greater than 160 mmHg GI prophylaxis, famotidine DVT prophylaxis, Lovenox ADVANCED CARE PLANNING 1. Which of the following were discussed? Hospice Care - Yes Therapeutic options - Yes Advance Directives - Yes- patient states that she does not have any advance directives in place at this time, however has been can make decisions for her if she becomes unable. Other discussions - patient wishes to remain a full code at this time 2. Discussed with who? Patient 3. Voluntary nature of this service was explained to the patient? Yes 4. Amount of time spent - __ 16 minutes 5. Reviewed by Physician? (if this service was performed by NPP) Yes This document was generated in part using voice recognition software, occasional wrong word or sound alike substitutions may have occurred due to the inherent limitations of voice recognition software. Read the chart carefully and recognize using context, where the substitutions have occurred. Although every effort was made to edit the content, demurrage agent and typing errors may occur ATTESTATION BY PHYSICIAN I have seen and examined the patient. I reviewed the documentation, medical dec ision making, and treatment plan as noted by the mid-level provider above. I agree with the findings and plan of care.] STEVEN LINDO POULTRY FARM MANAGER Nov 04, 2024 18:14
--- NOTE | 2024-11-04 18:24 | NUR ---
PT GOING TO CT SCAN
--- NOTE | 2024-11-04 18:40 | HMCIMG ---
PORTABLE CHEST RADIOGRAPH INDICATION: cp COMPARISON: 09/11/2024 FINDINGS: night monitor leads overlie the field of view. Heart size is normal. The pulmonary vascularity and fox appear normal. No abnormal pulmonary parenchymal opacity or consolidation identified. No significant pleural effusion noted. No pneumothorax detected. Mild to moderate thoracic dextroscoliosis. IMPRESSION: No radiographic evidence for any acute cardiopulmonary process.
--- NOTE | 2024-11-04 18:56 | NUR ---
PT RETURNED FROM CT SCAN
--- NOTE | 2024-11-04 19:11 | NUR ---
REPORT ENDORSED TO CHRISTIAN SANDERS.
--- NOTE | 2024-11-04 19:12 | NUR ---
PT HAS HAD 4 STOOLS DURING MY TENURE W/THE PT. BLACK IN COLOR-PEPTO HAS BEEN TAKING X 24-36HRS
--- NOTE | 2024-11-04 19:25 | HMCIMG ---
CT ABD/PEL WO CON RENAL/APPY INDICATION: ABD PAIN, NAUSEA,VOMITING TECHNIQUE: CT ABD/PEL WO CON RENAL/APPY. Oral contrast was not given. Coronal and sagittal reformats were performed. CT was performed with one or more of the following dose reduction techniques: Automated exposure control, adjustment of the mA and/or kV according to the patient's size, or use of the iterative reconstruction technique. Comparison: 09/04/2024 FINDINGS: The noncontrast nature this study limits evaluation of abdominal viscera. Mild atelectatic changes are seen in the lung bases. There is mild cardiomegaly. There is hepatic steatosis. No calcified gallstone is seen. The spleen, pancreas, and adrenal glands are within normal limits. No hydronephrosis. The urinary bladder is partially collapsed. Reproductive organs are grossly within normal limits for patient's age. Diffuse wall thickening of the colon consistent with pancolitis. No bowel obstruction is seen. Large fat and small bowel containing right lower quadrant abdominal wall hernia. Appendix is normal in caliber. Atherosclerotic changes of the aorta with calcified plaques. Degenerative changes of the spine are seen. IMPRESSION: 1. Diffuse wall thickening of the colon consistent with pancolitis. No bowel obstruction is seen. 2. Large fat and small bowel containing right lower quadrant abdominal wall hernia.
[2024-11-04] MEDS ORDERED: NITROGLYCERIN 0.4 MG SL TAB SL PRN (19:30)
[2024-11-04] MEDS ORDERED: hydrALAZine 20MG/ML VIAL IV PRN (19:30)
[2024-11-04] MEDS ORDERED: morPHINE 4 MG SYG IVP PRN (19:30)
--- NOTE | 2024-11-04 19:54 | NUR ---
PT CARE ASSUMED AT THIS TIME
[2024-11-04] MEDS: ZOSYN 3.375GM +NS 50ML IV SCH (20:55)
[2024-11-04] MEDS: ASPIRIN 81MG CHEW TAB PO ONE (20:56)
[2024-11-04] MEDS: LACTATED RINGERS 1000ML 2,040 ML IV ONE (20:56)
[2024-11-05] MEDS: PoTASSium chloRIDE 20MEQ/100ML 100 ML IV PRN (00:48)
[2024-11-05 01:18] LABS: APPEARANCE,URINE CLEAR (CLEAR); BILIRUBIN,URINE NEGATIVE (NEGATIVE); COLOR,URINE YELLOW (YELLOW); GLUCOSE, URINE (UA) >=1000 mg/dL (NEGATIVE); KETONES,URINE >=80 mg/dL (NEGATIVE); LEUKOCYTE ESTERASE ,URINE NEGATIVE Leu/uL (NEGATIVE); NITRATE,URINE NEGATIVE (NEGATIVE); OCCULT BLOOD,URINE MODERATE (NEGATIVE); PROTEIN,URINE 100 mg/dL (NEGATIVE); UROBILINOGEN,URINE 0.2 mg/dL (0.2-1.0)
[2024-11-05 01:31] LABS: ADD UA MICROSCOPIC YES
[2024-11-05 01:33] LABS: BACTERIA,URINE FEW /HPF (None Seen); MUCUS,URINE RARE LPF (None Seen); SQUAMOUS EPITHELIAL CELL,UR RARE /HPF (0-2)
[2024-11-05 04:45] LABS: BASOPHILS # (AUTO) 0.08 K/uL (0.00-0.20); BASOPHILS % (AUTO) 0.6 % (0.0-5.0); EOSINOPHILS # (AUTO) 0.04 K/uL (0.00-0.70); EOSINOPHILS % (AUTO) 0.3 % (0.0-8.0); HEMATOCRIT 30.2 % (36-48); IMMATURE GRANULOCYTE ABSOLUTE 0.07 K/uL (0-1); LYMPHOCYTES % (AUTO) 7.6 % (21.0-51.0); MEAN CORPUSCULAR HEMOGLOBIN 26.9 pg (27.0-33.0); MEAN CORPUSCULAR HGB CONC 31.1 g/dL (32.0-36.0); MEAN CORPUSCULAR VOLUME 86.5 fL (79-99); MONOCYTES % (AUTO) 7.9 % (3.0-13.0); NEUTROPHILS # (AUTO) 10.9 K/uL (1.8-7.7); NEUTROPHILS % (AUTO) 83.1 % (40.0-77.0); PLATELET COUNT (AUTO) 277 K/uL (130-400); RED BLOOD CELL COUNT(AUTO) 3.49 MIL/uL (4.00-5.50); RED CELL DISTRIBUTION WIDTH 19.3 % (11.0-15.5); WHITE BLOOD COUNT (AUTO) 13.1 K/uL (4.8-10.8)
[2024-11-05 04:53] LABS: HEMOGLOBIN A1C 6.7 % (4.0-6.0)
[2024-11-05 04:58] LABS: CREATININE 0.3 mg/dL (0.5-1.0); MAGNESIUM 1.7 mg/dL (1.80-2.40); PHOSPHORUS 2.1 mg/dL (2.5-4.9); POTASSIUM 3.2 mmol/L (3.5-5.1)
--- NOTE | 2024-11-05 05:04 | NUR ---
GROUP ART SUPERVISOR PROVIDER PAGED AT THIS TIME
--- NOTE | 2024-11-05 05:08 | NUR ---
SPOKE TO BASEBALL WINDER STEVEN AT THIS TIME REGARDING LABS, ABDOMINAL PAIN, AND FREQUENT STOOLS. NO ORDERS GIVEN AT THIS TIME.
[2024-11-05] MEDS: ondanSETRON 4MG INJ IV PRN (05:27)
[2024-11-05] MEDS: PoTASSium chloRIDE 20MEQ ER 20 MEQ ERTAB PO PRN (06:31)
--- NOTE | 2024-11-05 07:08 | NUR ---
REPORT GIVEN TO ZEENAT SANDERS AT THIS TIME
--- NOTE | 2024-11-05 07:23 | PN ---
[facility] PROGRESS NOTE Date of Service: Nov 05, 2024 Time of Service: 07:23 SUBJECTIVE: Ms. Cordero is a 59-year-old female came to the emergency department with a chief complaint of midsternal chest pain and abdominal pain and diarrhea. She came to the ED few days ago due to abdominal pain, diarrhea, increased urinary frequency and was discharged on cephalexin and lidocaine patch for gluteal skin abrasion. She has a history of ESBL treated with vanco and zosyn in august,. She complains of generalized abdominal pain, 3 episodes of vomitings and 3-4 episodes of watery diarrhea since last night. She denies chest pain or shortness of breath or dizziness. REVIEW OF SYSTEMS CONSTITUTIONAL: Denies fevers, chills, or night sweats. No unintentional weight loss reported. NEUROLOGICAL: Denies headache, amaurosis fugax, motor weakness, sensory deficit, vertigo/spinning sensation, gait abnormalities, or tremors. ENT: No hearing loss, otalgia, otorrhea, rhinitis, rhinorrhea, hoarseness, or sore throat. CARDIOVASCULAR: Denies any exertional angina, dyspnea on exertion, orthopnea, paroxysmal nocturnal dyspnea, palpitations, life-threatening arrhythmias, claudication. PULMONARY: Denies any shortness of breath, cough, phlegm/sputum, hemoptysis, pleuritic chest pain. SLEEP: Denies morning headaches, daytime somnolence or napping. Denies difficul ty falling asleep, staying asleep, waking from sleep. Denies knowledge of snoring. GASTROINTESTINAL: Denies any type of dysphagia to either liquids or solids. Complains of nausea, vomiting, abdominal pain, diarrhea, liquid stool consistency. Denies coffee-ground emesis, hematemesis, hematochezia, or ivette anotic stools. GENITOURINARY: Denies frequency, urgency, no nocturia, hematuria or incontinence (Storage/Irritative symptoms.) Low urinary stream, straining to void, urinary intermittency or hesitancy, splitting of the voiding stream, terminal dribbling. ENDOCRINOLOGIC: Denies polyuria, polydipsia, polyphagia or heat/cold intolerances. HEMATOLOGIC: Denies thrombophilia/previous clots, or coagulopathy/bleeding di sorders. ONCOLOGIC: Denies personal history of malignancy. DERMATOLOGIC: Denies rashes or pruritus. PSYCHIATRIC: Denies any suicidal or homicidal ideation. Denies hallucinations. PHYSICAL EXAM GENERAL APPEARANCE: The patient is awake, alert, and oriented, in no acute cardiopulmonary distress. NEUROLOGICAL: Cranial nerves II-XII grossly intact. Motor is 5/5 in bilateral upper and lower extremities proximal to distal. No sensory deficits. HEENT: Face is symmetric. Pupils are equal and reactive. Extraocular movements are intact. NECK: Supple. No JVD. No thyromegaly. No submental, submandibular, pre- /postauricular, occipital or supraclavicular lymphadenopathy. CHEST: Normal chest expansion. No Telemetry. LUNGS: Absence of any rales, rhonchi or any wheezing. CARDIOVASCULAR: Regular. S1 and S2 normal. No appreciable rubs, murmurs or gallops. ABDOMEN: Soft, nontender, and nondistended. There is no rebound, voluntary guarding, or rigidity. : Deferred. No [place]. EXTREMITIES: Non-edematous and not cyanotic. No clubbing. Good capillary refill. SKIN: No skin breakdown. Vital Signs (last 8hr) Date Time Temp Pulse Resp B/P (MAP) Pulse Ox O2 Delivery O2 Flow Rate FiO2 11/05/24 04:50 83 14 115/61 95 Room Air* 0 21 11/05/24 02:45 83 25 131/65 95 Room Air* 0 21 11/05/24 00:20 85 25 111/52 96 Room Air* 0 21 LABS: Laboratory: Test 11/05/24 04:37 11/05/24 01:11 11/04/24 16:20 Range/Units White Blood Count 13.1 H 4.8-10.8 K/uL Red Blood Count 3.49 L 4.00-5.50 MIL/uL Hemoglobin 9.4 L 12.0-16.0 g/dL Hematocrit 30.2 L 36-48 % Mean Corpuscular Volume 86.5 79-99 fL Mean Corpuscular Hemoglobin 26.9 L 27.0-33.0 pg Mean Corpuscular Hemoglobin Concent 31.1 L 32.0-36.0 g/dL Red Cell Distribution Width 19.3 H 11.0-15.5 % Platelet Count 277 130-400 K/uL Mean Platelet Volume 10.2 7.5-10.5 fL Immature Granulocyte % (Auto) 0.5 0-1 % Neutrophils (%) (Auto) 83.1 H 40.0-77.0 % Lymphocytes (%) (Auto) 7.6 L 21.0-51.0 % Monocytes (%) (Auto) 7.9 3.0-13.0 % Eosinophils (%) (Auto) 0.3 0.0-8.0 % Basophils (%) (Auto) 0.6 0.0-5.0 % Neutrophils # (Auto) 10.9 H 1.8-7.7 K/uL Lymphocytes # (Auto) 1.0 1.0-4.8 K/uL Monocytes # (Auto) 1.0 0.1-1.0 K/uL Eosinophils # (Auto) 0.04 0.00-0.70 K/uL Basophils # (Auto) 0.08 0.00-0.20 K/uL Absolute Immature Granulocyte (auto 0.07 0-1 K/uL Nucleated Red Blood Cells 0.0 0.0-0.19 % Sodium Level 135 L 136-145 mmol/L Potassium Level 3.2 L 3.5-5.1 mmol/L Chloride Level 100 L 101-111 mmol/L Carbon Dioxide Level 26 21-32 mmol/L Blood Urea Nitrogen 6 L 7-18 mg/dL Creatinine 0.3 L 0.5-1.0 mg/dL Glomerular Filtration Rate Calc 121 >90 mL/min Random Glucose 73 70-105 mg/dL Hemoglobin A1c 6.7 H 4.0-6.0 % Estimated Average Glucose (eAG) 146 H 70-126 mg/dL Total Calcium 8.4 L 8.5-10.1 mg/dL Phosphorus Level 2.1 L 2.5-4.9 mg/dL Magnesium Level 1.70 L 1.80-2.40 mg/dL Troponin I High Sensitivity 10 4-50 ng/L Urine Color YELLOW YELLOW Urine Appearance CLEAR CLEAR Urine pH 6.0 5.0-8.0 Urine Specific [place] 1.039 H 1.001-1.031 Urine Protein 100 H NEGATIVE mg/dL Urine Glucose (UA) >=1000 H NEGATIVE mg/dL Urine Ketones >=80 NEGATIVE mg/dL Urine Occult Blood MODERATE H NEGATIVE Urine Nitrate NEGATIVE NEGATIVE Urine Bilirubin NEGATIVE NEGATIVE mg/dL Urine Urobilinogen 0.2 0.2-1.0 mg/dL Urine Leukocyte Esterase NEGATIVE NEGATIVE Martin/uL Urine RBC 11-25 H 0-1 /HPF Urine WBC 6-10 H 0-1 /HPF Urine Squamous Epithelial Cells RARE 0-2 /HPF Urine Amorphous Crystals (Auto) RARE None Seen /LPF Urine Bacteria FEW None Seen /HPF White Cell Morphology Comment See comments Lactic Acid Level 1.5 0.8-2.5 mmol/L Total Bilirubin 0.5 0.2-1.0 mg/dL Direct Bilirubin 0.1 0.0-0.3 mg/dL Aspartate Amino Transf (AST/SGOT) 21 10-37 U/L Alanine Aminotransferase (ALT/SGPT) 13 12-78 U/L Alkaline Phosphatase 83 50-136 U/L B-Type Natriuretic Peptide 121 H 0-100 pg/mL Total Protein 6.3 6.0-8.3 g/dL Albumin 2.2 L 3.5-5.0 g/dL Procalcitonin 0.50 0.05-0.5 ng/mL Current Medications Medications (Trade) Dose Ordered Sig/Toby Route PRN Reason Start Time Stop Time Status Last Admin Dose Admin Acetaminophen (TYLenol 325MG TAB) 650 mg Q6H PRN PO TEMPERATURE GREATER THAN 101.5 11/04/24 19:30 12/04/24 19:29 Aspirin (Aspirin 81mg Chew Tab) 81 mg DAILY PO 11/05/24 09:00 12/05/24 08:59 Enoxaparin Sodium (Lovenox) 40 mg DAILY SQ 11/05/24 09:00 12/05/24 08:59 Famotidine (Pepcid 20mg Tab) 20 mg DAILY PO 11/05/24 09:00 12/05/24 08:59 Hydralazine HCl (APRESOLine 20MG INJ) 10 mg Q6H PRN IV For:SBP above 160;DBP above 90 11/04/24 19:30 12/04/24 19:29 Magnesium Sulfate 50 ml @ 0 mls/hr PROTOCOL IV 11/04/24 17:30 12/04/24 17:29 Magnesium Sulfate 50 ml @ 0 mls/hr PROTOCOL PRN IV h 11/04/24 19:30 12/04/24 19:29 Morphine Sulfate (morPHINE 4MG SYG) 2 mg Q4H PRN IVP SEVERE PAIN (7-10) 11/04/24 19:30 11/11/24 19:29 Nitroglycerin (Nitrostat) 0.4 mg PROTOCOL PRN SL CHEST PAIN 11/04/24 19:30 12/04/24 19:29 Ondansetron HCl (zoFRAN 4MG INJ) 4 mg Q6H PRN IV NAUSEA/VOMITING 11/04/24 19:30 12/04/24 19:29 11/05/24 05:27 4 MG Piperacillin Sod/ Tazobactam Sod (Zosyn 3.375gm+NS 50ml) 3.375 gm Q8H IV 11/04/24 20:00 11/14/24 19:59 11/05/24 04:48 3.375 GM Potassium Chloride 100 ml @ 100 mls/hr AD PRN IV POTASSIUM PROTOCOL 11/04/24 19:30 12/04/24 19:29 11/05/24 00:48 100 MLS/HR Potassium Chloride (K-Dur/Klor-Con 20meq) 20 meq AD PRN PO POTASSIUM PROTOCOL 11/04/24 19:30 12/04/24 19:29 11/05/24 06:31 20 MEQ Potassium Chloride (KCl 10% Elixir 20meq/15ml) 20 meq AD PRN PO POTASSIUM PROTOCOL 11/04/24 19:30 12/04/24 19:29 DIAGNOSTICS / RADIOLOGY: REASON: ABD PAIN, NAUSEA,VOMITING ORDERING PHYSICIAN: ANIKA WHITE MD PROCEDURE: ABD PELVWO - CT ABD/PEL WO CON RENAL/APPY CT ABD/PEL WO CON RENAL/APPY INDICATION: ABD PAIN, NAUSEA,VOMITING TECHNIQUE: CT ABD/PEL WO CON RENAL/APPY. Oral contrast was not given. Coronal and sagittal reformats were performed. CT was performed with one or more of the following dose reduction techniques: Automated exposure control, adjustment of the mA and/or kV according to the patient's size, or use of the iterative reconstruction technique. Comparison: 09/04/2024 FINDINGS: The noncontrast nature this study limits evaluation of abdominal viscera. Mild atelectatic changes are seen in the lung bases. There is mild cardiomegaly. There is hepatic steatosis. No calcified gallstone is seen. The spleen, pancreas, and adrenal glands are within normal limits. No hydronephrosis. The urinary bladder is partially collapsed. Reproductive organs are grossly within normal limits for patient's age. Diffuse wall thickening of the colon consistent with pancolitis. No bowel obstruction is seen. Large fat and small bowel containing right lower quadrant abdominal wall hernia. Appendix is normal in caliber. Atherosclerotic changes of the aorta with calcified plaques. Degenerative changes of the spine are seen. IMPRESSION: 1. Diffuse wall thickening of the colon consistent with pancolitis. No bowel obstruction is seen. 2. Large fat and small bowel containing right lower quadrant abdominal wall hernia. ASSESSMENT: Sepsis due to pancolitis, POA Hypokalemia, POA Leukocytosis, POA Chest pain due to GERD, POA Diabetes mellitius type2 Hypertension PLAN: Sepsis due to pancolitis: Reviewed patient's lactic acid, unremarkable, 1.5 Empiric antibiotic therapy with Zosyn Fluid resuscitation with lactated Ringer's 30 mL/kg Check blood culture, follow up with the results Ordered urinalysis which is pending to be collected and sent to lab Check stool GI PCR, follow up with the results Follow up with the results of CT abdomen and pelvis. Gatroenteritis Clear liquid diet for now CT scan showed pancolitis GI consult H/o Vancomycin and zosyn use in Dec for ESBL and s/p BKA for gangrene of left foot Stool panel PCR by GI C.diff a/b Hypokalemia: Monitor patient's potassium. Replace potassium per hospital protocol. Check patient's magnesium. Replace magnesium per hospital protocol if needed Diabetes mellitus type 2: Check hemoglobin A1c in a.m. Glucometer checks a.c. and HS 1800 ADA diet Humulin R sliding scale Musculoskeletal chest pain due to Gastroenteritis: Continue zofran, famotidine, antibiotics Clear liquid diet 09/13 2D echo - LVEF 45-50 %, LV diastolic function normal, mild anteroseptal hypokinesis Hypertension: Consider resuming home medications once they are reconciled. For now, Hydralazine 10 mg IV every 4 hours for systolic blood pressure greater than 160 mmHg Patient on telemetry monitoring GI prophylaxis, famotidine DVT prophylaxis, Lovenox Continue aspirin 81 mg by mouth once daily Nitroglycerin sublingual 0.4 mg as needed for chest pain every 5 minutes, max 3 doses, hold for systolic blood pressure less than 100 mmHg. s Trend troponin every 6 hours x 3 sets Supplemental oxygen to maintain O2 saturation greater than 92% Consult cardiology if any elevation in troponin or troponin uptrending ATTESTATION BY PHYSICIAN I have seen and examined the patient. I reviewed the documentation, medical decision making, and treatment plan as noted by the resident provider above. I agree with the findings and plan of care. Allen Fuentes MD, NIHITHA MD Nov 05, 2024 07:23
--- NOTE | 2024-11-05 07:40 | EKG ---
[facility] Test Date: 2024-11-04 Test Time: 15:08:49 Pat Name: SHAHZAD PAGE Department: [facility] Room: ED 13 Gender: F Cost Manager: [id number] : 1965 Requested By: ANIKA WHITE Order Number: [id number] Reading MD: Liam Anderson Measurements Intervals [place] Rate: 101 P: 49 ND: 151 QRS: 65 QRSD: 87 T: -38 QT: 400 QTc: 520 Interpretive Statements Sinus tachycardia Probable left atrial enlargement Consider anteroseptal infarct Nonspecific STT abnormality Prolonged QT interval Compared to ECG 09/12/2024 22:07:00 Myocardial infarct finding now present Prolonged QT interval now present Electronically Signed On 11-05-2024 19:11:54 PROFESSOR OF THEATER by Liam Anderson Please click the below link to view image of tracing.
[2024-11-05] MEDS: FAMOTIDINE 20MG TAB PO SCH (08:17)
[2024-11-05] MEDS: ASPIRIN 81MG CHEW TAB PO SCH (08:17)
[2024-11-05] MEDS: ENOXAPARIN SODIUM 40 MG/0.4 ML SYRINGE SQ SCH (08:17)
[2024-11-05] MEDS: MAGNESIUM 2GM PREMIX 50ML 50 ML IV SCH (08:18)
[2024-11-05] MEDS: PoTASSium chl 10% ELIXIR 20MEQ 20 MEQ/15 ML UDCUP PO PRN (09:04)
--- NOTE | 2024-11-05 11:11 | NUR ---
DCP: HOME met with pt who lives at home with her Raymond [address]ia [id number] and their son. Pt states her family assists as needed with ADLS, home management and meal prep, son is going to start application for medicaid for her. Pt has a w/c she uses a needed and a shower chair. No HH or HD services. PCP is Yanira Bautista and uses [facility] for rx. Pt denies need for SNF, states she will return home at nd Addendum: 11/05/24 at 1115 by YUMIKO RUELAS Amended: Links added.
--- NOTE | 2024-11-05 12:30 | NUR ---
GI CONSULT: PATIENT REPORT GIVEN TO BEAN PETERSON
--- NOTE | 2024-11-05 12:43 | NUR ---
C DIFF STOOL SAMPLE REJECTED DUE TO CONSISTENCY NOT BEING LIQUID
--- NOTE | 2024-11-05 13:24 | CONS ---
GASTROENTEROLOGY CONSULTATION NOTE Date of Consultation: Nov 05, 2024 Time of Consultation: 13:24 History of Present Illness: This is a 59-year-old female with past medical history of type 2 diabetes, hypertension, myocardial infarction who presented to the hospital due to chest pain. Cardiac workup was negative. She reported ongoing diarrhea for a few months. WBC 14.8, hemoglobin 10.8 with a platelet count of 325. She is pending CTA. She had a CT abdomen and pelvis revealing pancolitis. Review of Systems: CONSTITUTIONAL: No malaise or change in sensation of wellbeing. ENMT: No rhinorrhea, otorrhea, sinus pain, ear ache. CARDIOVASCULAR: No angina, palpitations, orthopnea or paroxysmal dyspnea. RESPIRATORY: No SOB. GASTROINTESTINAL: No abdominal pain, nausea, vomiting, diarrhea, hematemesis, melena or change in the patient's habitual bowel movements consistency/number. GENITOURINARY: No dysuria, hematuria or change in bladder continence. MUSCULOSKELETAL: No new muscle pain or decrease in muscular strength. No new joint swelling, redness or tenderness. SKIN: No new rash. Past Medical History: ADDITIONAL PAST MEDICAL HISTORY: [Diabetes mellitius type2, hypertension, myocardial infarction] SOCIAL HISTORY: [Negative for smoking, alcohol use, drug use. Patient lives with the Raymond Cordero. Patient has good access to health care through her insurance. Patient denies difficulty paying her bills. Patient is typically independent of all her ADLs. 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 HEENT: No sinus tenderness. Tympanic membranes were not examined. No rhinorrhea. Oral pharyngeal mucosa is pink, moist and within normal limits. Neck is supple with no cervical lymphadenopathy, thyromegaly or JVD. CHEST: Inspection, palpation and percussion of the chest were unremarkable. Lung auscultation revealed normal breath sounds bilaterally. CARDIAC: PMI is within normal limits. Heart sounds are regular. Normal S1, S2. No gallop or murmur. ABD: Soft, non-tender and not distended. No peritoneal signs on palpation. No organomegaly. Normal bowel sounds. EXT: No cyanosis or clubbing. No edema. SKIN: Intact. No rashes. JOINTS: No evidence of synovitis or acute arthritis. NEURO: Alert and oriented to name, place and person. Cranial nerve examination is unremarkable. No focal motor deficits. Normal speech. Gait is normal. Strength is normal. Vital Sign (Last 24 Hours) 11/05/24 11/05/24 07:33 10:28 Temp 99.1 Pulse 83 Resp 20 B/P (MAP) 110/55 Pulse Ox 95 O2 Delivery Room Air* O2 Flow Rate 0 FiO2 21 Laboratory: [ ] Laboratory: Test 11/05/24 09:45 11/05/24 04:37 11/05/24 01:11 11/04/24 16:20 Range/Units Troponin I High Sensitivity 9 4-50 ng/L White Blood Count 13.1 H 4.8-10.8 K/uL Red Blood Count 3.49 L 4.00-5.50 MIL/uL Hemoglobin 9.4 L 12.0-16.0 g/dL Hematocrit 30.2 L 36-48 % Mean Corpuscular Volume 86.5 79-99 fL Mean Corpuscular Hemoglobin 26.9 L 27.0-33.0 pg Mean Corpuscular Hemoglobin Concent 31.1 L 32.0-36.0 g/dL Red Cell Distribution Width 19.3 H 11.0-15.5 % Platelet Count 277 130-400 K/uL Mean Platelet Volume 10.2 7.5-10.5 fL Immature Granulocyte % (Auto) 0.5 0-1 % Neutrophils (%) (Auto) 83.1 H 40.0-77.0 % Lymphocytes (%) (Auto) 7.6 L 21.0-51.0 % Monocytes (%) (Auto) 7.9 3.0-13.0 % Eosinophils (%) (Auto) 0.3 0.0-8.0 % Basophils (%) (Auto) 0.6 0.0-5.0 % Neutrophils # (Auto) 10.9 H 1.8-7.7 K/uL Lymphocytes # (Auto) 1.0 1.0-4.8 K/uL Monocytes # (Auto) 1.0 0.1-1.0 K/uL Eosinophils # (Auto) 0.04 0.00-0.70 K/uL Basophils # (Auto) 0.08 0.00-0.20 K/uL Absolute Immature Granulocyte (auto 0.07 0-1 K/uL Nucleated Red Blood Cells 0.0 0.0-0.19 % Sodium Level 135 L 136-145 mmol/L Potassium Level 3.2 L 3.5-5.1 mmol/L Chloride Level 100 L 101-111 mmol/L Carbon Dioxide Level 26 21-32 mmol/L Blood Urea Nitrogen 6 L 7-18 mg/dL Creatinine 0.3 L 0.5-1.0 mg/dL Glomerular Filtration Rate Calc 121 >90 mL/min Random Glucose 73 70-105 mg/dL Hemoglobin A1c 6.7 H 4.0-6.0 % Estimated Average Glucose (eAG) 146 H 70-126 mg/dL Total Calcium 8.4 L 8.5-10.1 mg/dL Phosphorus Level 2.1 L 2.5-4.9 mg/dL Magnesium Level 1.70 L 1.80-2.40 mg/dL Urine Color YELLOW YELLOW Urine Appearance CLEAR CLEAR Urine pH 6.0 5.0-8.0 Urine Specific [place] 1.039 H 1.001-1.031 Urine Protein 100 H NEGATIVE mg/dL Urine Glucose (UA) >=1000 H NEGATIVE mg/dL Urine Ketones >=80 NEGATIVE mg/dL Urine Occult Blood MODERATE H NEGATIVE Urine Nitrate NEGATIVE NEGATIVE Urine Bilirubin NEGATIVE NEGATIVE mg/dL Urine Urobilinogen 0.2 0.2-1.0 mg/dL Urine Leukocyte Esterase NEGATIVE NEGATIVE Martin/uL Urine RBC 11-25 H 0-1 /HPF Urine WBC 6-10 H 0-1 /HPF Urine Squamous Epithelial Cells RARE 0-2 /HPF Urine Amorphous Crystals (Auto) RARE None Seen /LPF Urine Bacteria FEW None Seen /HPF White Cell Morphology Comment See comments Lactic Acid Level 1.5 0.8-2.5 mmol/L Total Bilirubin 0.5 0.2-1.0 mg/dL Direct Bilirubin 0.1 0.0-0.3 mg/dL Aspartate Amino Transf (AST/SGOT) 21 10-37 U/L Alanine Aminotransferase (ALT/SGPT) 13 12-78 U/L Alkaline Phosphatase 83 50-136 U/L B-Type Natriuretic Peptide 121 H 0-100 pg/mL Total Protein 6.3 6.0-8.3 g/dL Albumin 2.2 L 3.5-5.0 g/dL Procalcitonin 0.50 0.05-0.5 ng/mL Current Medications Medications (Trade) Dose Ordered Sig/Toby Route PRN Reason Start Time Stop Time Status Last Admin Dose Admin Acetaminophen (TYLenol 325MG TAB) 650 mg Q6H PRN PO TEMPERATURE GREATER THAN 101.5 11/04/24 19:30 12/04/24 19:29 Aspirin (Aspirin 81mg Chew Tab) 81 mg DAILY PO 11/05/24 09:00 12/05/24 08:59 11/05/24 08:17 81 MG Enoxaparin Sodium (Lovenox) 40 mg DAILY SQ 11/05/24 09:00 12/05/24 08:59 11/05/24 08:17 40 MG Famotidine (Pepcid 20mg Tab) 20 mg DAILY PO 11/05/24 09:00 12/05/24 08:59 11/05/24 08:17 20 MG Hydralazine HCl (APRESOLine 20MG INJ) 10 mg Q6H PRN IV For:SBP above 160;DBP above 90 11/04/24 19:30 12/04/24 19:29 Magnesium Sulfate 50 ml @ 0 mls/hr PROTOCOL IV 11/04/24 17:30 12/04/24 17:29 11/05/24 08:18 25 MLS/HR Magnesium Sulfate 50 ml @ 0 mls/hr PROTOCOL PRN IV h 11/04/24 19:30 12/04/24 19:29 Morphine Sulfate (morPHINE 4MG SYG) 2 mg Q4H PRN IVP SEVERE PAIN (7-10) 11/04/24 19:30 11/11/24 19:29 Nitroglycerin (Nitrostat) 0.4 mg PROTOCOL PRN SL CHEST PAIN 11/04/24 19:30 12/04/24 19:29 Ondansetron HCl (zoFRAN 4MG INJ) 4 mg Q6H PRN IV NAUSEA/VOMITING 11/04/24 19:30 12/04/24 19:29 11/05/24 05:27 4 MG Piperacillin Sod/ Tazobactam Sod (Zosyn 3.375gm+NS 50ml) 3.375 gm Q8H IV 11/04/24 20:00 11/14/24 19:59 11/05/24 11:08 3.375 GM Potassium Chloride 100 ml @ 100 mls/hr AD PRN IV POTASSIUM PROTOCOL 11/04/24 19:30 12/04/24 19:29 11/05/24 00:48 100 MLS/HR Potassium Chloride (K-Dur/Klor-Con 20meq) 20 meq AD PRN PO POTASSIUM PROTOCOL 11/04/24 19:30 12/04/24 19:29 11/05/24 06:31 20 MEQ Potassium Chloride (KCl 10% Elixir 20meq/15ml) 20 meq AD PRN PO POTASSIUM PROTOCOL 11/04/24 19:30 12/04/24 19:29 11/05/24 09:04 20 MEQ Diagnostics / Radiology: [COPY/PASTE HERE IF NO REPORTS PLEASE DELETE SECTION] Assessment: Melena Diarrhea Abnormal imaging revealing pancolitis DM HTN Plan: 1. NPO after MN 2. EGD AND Colonoscopy in AM. I have discussed the risks, benefits, alternatives and potential complications. Questions were answered and the patient agrees to proceed. 3. Golytely 4 L po starting at 1700 4. Clear liquid diet avoiding red and purple colored liquids 5. Tap water enema in AM as needed 6. Please check Hg every 6 hours and transfuse to goal Hg 7-8. Please do not overtransfuse Thank you for allowing us to participate in the care of this patient! GREGORY BELTRAN DIRECTOR OF [employer]OL[employer]TEER SERVICES Nov 05, 2024 13:24
[2024-11-05] MEDS: acetaMINOPHEN 325 MG TAB PO PRN (15:48)
[2024-11-05] MEDS: PEG 3350/NA SULF,BICARB,CL/KCL 4000 ML SOLN PO ONE (16:40)
--- NOTE | 2024-11-05 19:17 | NUR ---
PT CARE ASSUMED AT THIS TIME
--- NOTE | 2024-11-05 23:46 | NUR ---
ATTEMPT TO GIVE REPORT AT THIS TIME. PENDING CALL BACK.
[2024-11-06] VITALS (14 sets, daily range): BP systolic 92–124; BP diastolic 46–75; PULSE 76–105; RESP 15–18; TEMP 97.7–98.8; O2SAT 98
--- NOTE | 2024-11-06 00:36 | NUR ---
REPORT GIVEN TO QUYNH SANDERS AT THIS TIME
--- NOTE | 2024-11-06 00:55 | NUR ---
ADMIT NOTE RECEIVED PATIENT FROM ER VIA STRETCHER WITH MORE THAN 1/2 GALLON OF GOLYTLEY LEFT IN CONTAINER, NO FAMILY AT BEDSIDE, TEACH PATIENT PLAN OF CARE AND EXPECTED OUTCOME , PATIENT VERBALIZES UNDERSTANDING VIA TEACH BACK
[2024-11-06] MEDS ORDERED: FERR324T4 PO (01:04)
[2024-11-06] MEDS ORDERED: ESCI5TAB16 PO (01:04)
[2024-11-06] MEDS ORDERED: GABA-529 PO (01:04)
[2024-11-06] MEDS ORDERED: ASPI-1197 PO (01:04)
[2024-11-06 06:07] LABS: BASOPHILS % (AUTO) 0.5 % (0.0-5.0); EOSINOPHILS # (AUTO) 0.02 K/uL (0.00-0.70); EOSINOPHILS % (AUTO) 0.1 % (0.0-8.0); HEMATOCRIT 28.9 % (36-48); IMMATURE GRANULOCYTE ABSOLUTE 0.32 K/uL (0-1); LYMPHOCYTES # (AUTO) 1.3 K/uL (1.0-4.8); LYMPHOCYTES % (AUTO) 5.9 % (21.0-51.0); MEAN CORPUSCULAR HEMOGLOBIN 27.1 pg (27.0-33.0); MEAN CORPUSCULAR HGB CONC 31.5 g/dL (32.0-36.0); MONOCYTES # (AUTO) 1.3 K/uL (0.1-1.0); NEUTROPHILS # (AUTO) 18.8 K/uL (1.8-7.7); PLATELET COUNT (AUTO) 279 K/uL (130-400); RED BLOOD CELL COUNT(AUTO) 3.36 MIL/uL (4.00-5.50); RED CELL DISTRIBUTION WIDTH 19.6 % (11.0-15.5); WHITE BLOOD COUNT (AUTO) 21.9 K/uL (4.8-10.8)
[2024-11-06 06:08] LABS: CREATININE 0.3 mg/dL (0.5-1.0)
[2024-11-06 06:13] LABS: POTASSIUM 2.6 mmol/L (3.5-5.1)
[2024-11-06] MEDS: FIDAXOMICIN 200 MG TABLET PO SCH ×2 (10:30→19:42)
[2024-11-06] MEDS ORDERED: morPHINE 2 MG SYG IVP PRN (12:00)
--- NOTE | 2024-11-06 14:22 | PN ---
[facility] PROGRESS NOTE Date of Service: Nov 06, 2024 Time of Service: 14:17 SUBJECTIVE: Ms. Cordero is a 59-year-old female came to the emergency department with a chief complaint of midsternal chest pain and abdominal pain and diarrhea. She came to the ED few days ago due to abdominal pain, diarrhea, increased urinary frequency and was discharged on cephalexin and lidocaine patch for gluteal skin abrasion. She has a history of ESBL treated with vanco and zosyn in august,. She complains of generalized abdominal pain, 3 episodes of vomitings and 3-4 episodes of watery diarrhea since last night. She denies chest pain or shortness of breath or dizziness. 11/06/24 patient was seen and examined along with RN today, patient had endoscopy and colonoscopy today found to have pseudomembranous colitis highly suspicious for C diff colitis. We started the patient on oral Dificid and discontinued Zosyn. REVIEW OF SYSTEMS CONSTITUTIONAL: Denies fevers, chills, or night sweats. No unintentional weight loss reported. NEUROLOGICAL: Denies headache, amaurosis fugax, motor weakness, sensory deficit, vertigo/spinning sensation, gait abnormalities, or tremors. ENT: No hearing loss, otalgia, otorrhea, rhinitis, rhinorrhea, hoarseness, or sore throat. CARDIOVASCULAR: Denies any exertional angina, dyspnea on exertion, orthopnea, paroxysmal nocturnal dyspnea, palpitations, life-threatening arrhythmias, claudication. PULMONARY: Denies any shortness of breath, cough, phlegm/sputum, hemoptysis, pleuritic chest pain. SLEEP: Denies morning headaches, daytime somnolence or napping. Denies difficulty falling asleep, staying asleep, waking from sleep. Denies knowledge of snoring. GASTROINTESTINAL: Complains of nausea, vomiting, abdominal pain, diarrhea, liquid stool consistency. Denies coffee-ground emesis, hematemesis, hematochezia, or melanotic stools. GENITOURINARY: Denies frequency, urgency, no nocturia, hematuria or incontinence (Storage/Irritative symptoms.) Low urinary stream, straining to void, urinary intermittency or hesitancy, splitting of the voiding stream, terminal dribbling. ENDOCRINOLOGIC: Denies polyuria, polydipsia, polyphagia or heat/cold intolerances. HEMATOLOGIC: Denies thrombophilia/previous clots, or coagulopathy/bleeding disorders. ONCOLOGIC: Denies personal history of malignancy. DERMATOLOGIC: Denies rashes or pruritus. PSYCHIATRIC: Denies any suicidal or homicidal ideation. Denies hallucinations. PHYSICAL EXAM GENERAL APPEARANCE: The patient is awake, alert, and oriented, in no acute cardiopulmonary distress. NEUROLOGICAL: Cranial nerves II-XII grossly intact. Motor is 5/5 in bilateral upper and lower extremities proximal to distal. No sensory deficits. HEENT: Face is symmetric. Pupils are equal and reactive. Extraocular movements are intact. NECK: Supple. No JVD. No thyromegaly. No submental, submandibular, pre- /postauricular, occipital or supraclavicular lymphadenopathy. CHEST: Normal chest expansion. No Telemetry. LUNGS: Absence of any rales, rhonchi or any wheezing. CARDIOVASCULAR: Regular. S1 and S2 normal. No appreciable rubs, murmurs or gallops. ABDOMEN: Soft, nontender, and nondistended. There is no rebound, voluntary guarding, or rigidity. : Deferred. No [place]. EXTREMITIES: Non-edematous and not cyanotic. No clubbing. Good capillary refill. SKIN: No skin breakdown. Vital Signs (last 8hr) Date Time Temp Pulse Resp B/P (MAP) Pulse Ox O2 Delivery O2 Flow Rate FiO2 11/06/24 12:00 97.7 82 15 92/49 92 Room Air 0.0 11/06/24 10:10 87 16 100/75 100 Room Air 11/06/24 10:05 86 16 98/62 100 Room Air 11/06/24 10:00 85 16 95/50 100 Room Air 11/06/24 09:55 84 16 95/48 100 Room Air 11/06/24 09:50 82 16 94/46 100 PROCEDURE MASK 10.0 11/06/24 09:45 76 16 97/55 100 PROCEDURE MASK 10.0 11/06/24 09:40 98.6 76 16 96/50 100 PROCEDURE MASK 10.0 11/06/24 09:24 Mask 11/06/24 09:24 Mask 10.0 11/06/24 08:00 98.2 86 15 109/67 96 Room Air 0.0 LABS: Laboratory: Test 11/06/24 12:24 11/06/24 08:03 11/06/24 05:45 11/05/24 09:45 Range/Units Whole Blood Glucose 75 70-110 MG/DL Potassium Level 3.3 L 3.5-5.1 mmol/L White Blood Count 21.9 H 4.8-10.8 K/uL Red Blood Count 3.36 L 4.00-5.50 MIL/uL Hemoglobin 9.1 L 12.0-16.0 g/dL Hematocrit 28.9 L 36-48 % Mean Corpuscular Volume 86.0 79-99 fL Mean Corpuscular Hemoglobin 27.1 27.0-33.0 pg Mean Corpuscular Hemoglobin Concent 31.5 L 32.0-36.0 g/dL Red Cell Distribution Width 19.6 H 11.0-15.5 % Platelet Count 279 130-400 K/uL Mean Platelet Volume 9.9 7.5-10.5 fL Immature Granulocyte % (Auto) 1.5 H 0-1 % Neutrophils (%) (Auto) 86.0 H 40.0-77.0 % Lymphocytes (%) (Auto) 5.9 L 21.0-51.0 % Monocytes (%) (Auto) 6.0 3.0-13.0 % Eosinophils (%) (Auto) 0.1 0.0-8.0 % Basophils (%) (Auto) 0.5 0.0-5.0 % Neutrophils # (Auto) 18.8 H 1.8-7.7 K/uL Lymphocytes # (Auto) 1.3 1.0-4.8 K/uL Monocytes # (Auto) 1.3 H 0.1-1.0 K/uL Eosinophils # (Auto) 0.02 0.00-0.70 K/uL Basophils # (Auto) 0.10 0.00-0.20 K/uL Absolute Immature Granulocyte (auto 0.32 0-1 K/uL Nucleated Red Blood Cells 0.0 0.0-0.19 % Sodium Level 133 L 136-145 mmol/L Chloride Level 97 L 101-111 mmol/L Carbon Dioxide Level 25 21-32 mmol/L Blood Urea Nitrogen 4 L 7-18 mg/dL Creatinine 0.3 L 0.5-1.0 mg/dL Glomerular Filtration Rate Calc 121 >90 mL/min Random Glucose 75 70-105 mg/dL Total Calcium 8.6 8.5-10.1 mg/dL Troponin I High Sensitivity 9 4-50 ng/L Test 11/05/24 04:37 11/05/24 01:11 11/04/24 16:20 Range/Units Hemoglobin A1c 6.7 H 4.0-6.0 % Estimated Average Glucose (eAG) 146 H 70-126 mg/dL Phosphorus Level 2.1 L 2.5-4.9 mg/dL Magnesium Level 1.70 L 1.80-2.40 mg/dL Urine Color YELLOW YELLOW Urine Appearance CLEAR CLEAR Urine pH 6.0 5.0-8.0 Urine Specific [place] 1.039 H 1.001-1.031 Urine Protein 100 H NEGATIVE mg/dL Urine Glucose (UA) >=1000 H NEGATIVE mg/dL Urine Ketones >=80 NEGATIVE mg/dL Urine Occult Blood MODERATE H NEGATIVE Urine Nitrate NEGATIVE NEGATIVE Urine Bilirubin NEGATIVE NEGATIVE mg/dL Urine Urobilinogen 0.2 0.2-1.0 mg/dL Urine Leukocyte Esterase NEGATIVE NEGATIVE Martin/uL Urine RBC 11-25 H 0-1 /HPF Urine WBC 6-10 H 0-1 /HPF Urine Squamous Epithelial Cells RARE 0-2 /HPF Urine Amorphous Crystals (Auto) RARE None Seen /LPF Urine Bacteria FEW None Seen /HPF White Cell Morphology Comment See comments Lactic Acid Level 1.5 0.8-2.5 mmol/L Total Bilirubin 0.5 0.2-1.0 mg/dL Direct Bilirubin 0.1 0.0-0.3 mg/dL Aspartate Amino Transf (AST/SGOT) 21 10-37 U/L Alanine Aminotransferase (ALT/SGPT) 13 12-78 U/L Alkaline Phosphatase 83 50-136 U/L B-Type Natriuretic Peptide 121 H 0-100 pg/mL Total Protein 6.3 6.0-8.3 g/dL Albumin 2.2 L 3.5-5.0 g/dL Procalcitonin 0.50 0.05-0.5 ng/mL Current Medications Medications (Trade) Dose Ordered Sig/Toby Route PRN Reason Start Time Stop Time Status Last Admin Dose Admin Acetaminophen (TYLenol 325MG TAB) 650 mg Q6H PRN PO TEMPERATURE GREATER THAN 101.5 11/04/24 19:30 12/04/24 19:29 11/05/24 15:48 650 MG Aspirin (Aspirin 81mg Chew Tab) 81 mg DAILY PO 11/05/24 09:00 12/05/24 08:59 11/06/24 10:30 81 MG Enoxaparin Sodium (Lovenox) 40 mg DAILY SQ 11/05/24 09:00 12/05/24 08:59 11/06/24 10:30 40 MG Famotidine (Pepcid 20mg Tab) 20 mg DAILY PO 11/05/24 09:00 12/05/24 08:59 11/06/24 10:30 20 MG Fidaxomicin (Dificid) 200 mg Q12H PO 11/06/24 10:30 11/16/24 10:29 11/06/24 10:30 200 MG Hydralazine HCl (APRESOLine 20MG INJ) 10 mg Q6H PRN IV For:SBP above 160;DBP above 90 11/04/24 19:30 12/04/24 19:29 Magnesium Sulfate 50 ml @ 0 mls/hr PROTOCOL IV 11/04/24 17:30 11/06/24 11:44 DC 11/05/24 08:18 25 MLS/HR Magnesium Sulfate 50 ml @ 0 mls/hr PROTOCOL PRN IV h 11/04/24 19:30 12/04/24 19:29 Morphine Sulfate (morPHINE 2MG SYG) 2 mg Q4H PRN IVP SEVERE PAIN (7-10) 11/06/24 12:00 11/11/24 19:29 Morphine Sulfate (morPHINE 4MG SYG) 2 mg Q4H PRN IVP SEVERE PAIN (7-10) 11/04/24 19:30 11/06/24 11:45 DC Nitroglycerin (Nitrostat) 0.4 mg PROTOCOL PRN SL CHEST PAIN 11/04/24 19:30 12/04/24 19:29 Ondansetron HCl (zoFRAN 4MG INJ) 4 mg Q6H PRN IV NAUSEA/VOMITING 11/04/24 19:30 12/04/24 19:29 11/05/24 05:27 4 MG Piperacillin Sod/ Tazobactam Sod (Zosyn 3.375gm+NS 50ml) 3.375 gm Q8H IV 11/04/24 20:00 11/06/24 10:19 DC 11/06/24 03:24 3.375 GM Potassium Chloride 100 ml @ 100 mls/hr AD PRN IV POTASSIUM PROTOCOL 11/04/24 19:30 12/04/24 19:29 11/06/24 06:17 100 MLS/HR Potassium Chloride (K-Dur/Klor-Con 20meq) 20 meq AD PRN PO POTASSIUM PROTOCOL 11/04/24 19:30 12/04/24 19:29 11/05/24 06:31 20 MEQ Potassium Chloride (KCl 10% Elixir 20meq/15ml) 20 meq AD PRN PO POTASSIUM PROTOCOL 11/04/24 19:30 12/04/24 19:29 11/05/24 09:04 20 MEQ DIAGNOSTICS / RADIOLOGY: [ ] ASSESSMENT: Sepsis due to pancolitis, POA Possible C diff colitis present on admission Hypokalemia, POA Leukocytosis, POA Chest pain due to GERD, POA Diabetes mellitius type2 Hypertension PLAN: Sepsis due to pancolitis possible C diff colitis.: Patient has had colonoscopy today showed possible C diff colitis pseudomembranous colitis. We will discontinue Zosyn. Start on deficit. Consult ID. Continue fluid resuscitation with lactated Ringer's 30 mL/kg Check blood culture, follow up with the results Ordered urinalysis which is pending to be collected and sent to lab Check stool GI PCR, follow up with the results Follow-up C diff stool PCR. Gatroenteritis Clear liquid diet for now CT scan showed pancolitis GI consult Hypokalemia: Monitor patient's potassium. Replace potassium per hospital protocol. Check patient's magnesium. Replace magnesium per hospital protocol if needed Diabetes mellitus type 2: Check hemoglobin A1c in a.m. Glucometer checks a.c. and HS 1800 ADA diet Humulin R sliding scale Musculoskeletal chest pain due to Gastroenteritis: Continue zofran, famotidine, antibiotics Clear liquid diet 09/13 2D echo - LVEF 45-50 %, LV diastolic function normal, mild anteroseptal hypokinesis Hypertension: Consider resuming home medications once they are reconciled. For now, Hydralazine 10 mg IV every 4 hours for systolic blood pressure greater than 160 mmHg Patient on telemetry monitoring GI prophylaxis, famotidine DVT prophylaxis, Lovenox Continue aspirin 81 mg by mouth once daily JESSE SOSA MD Nov 06, 2024 14:21
--- NOTE | 2024-11-06 21:51 | CONS ---
INFECTIOUS DISEASE CONSULTATION DATE OF SERVICE: 11/06/2024 REQUESTING PHYSICIAN: Dr. Fuentes REASON FOR CONSULTATION: Pseudomembranous colitis. HISTORY OF PRESENT ILLNESS: This is a 59-year-old female with history of diabetes mellitus, hypertension, myocardial infarction and right lower extremity cellulitis, who was admitted with diarrhea and abdominal pain. The patient also complained of some chest pain. The patient has had fever, T-max was 101.7. WBC on admission of 14,000, which has increased to 21,000. The patient underwent colonoscopy, which shows pseudomembranous colitis. CT of the abdomen is reported as pancolitis. The patient has pain to the lower extremities. No cough, no hemoptysis or pleuritic pain. PAST MEDICAL HISTORY: * Diabetes mellitus. * Hypertension. * Myocardial infarction. * Right foot osteomyelitis and cellulitis. PAST SURGICAL HISTORY: Right below-knee amputation. ALLERGIES: No known drug allergy. CURRENT MEDICATIONS: Include: * Fidaxomicin. * Aspirin. * Lovenox. * Sulfa. * Insulin. * Tylenol. SOCIAL HISTORY: Denies alcohol, tobacco or illicit drug use. FAMILY HISTORY: Positive for diabetes mellitus. REVIEW OF SYSTEMS: Greater than 10 systems were reviewed, negatives as documented above. PHYSICAL EXAMINATION: GENERAL: Elderly female, awake. VITAL SIGNS: Temperature 97.7, pulse 82, respiratory rate 15, BP 92/49. EYES: No icterus. Pupils are equal and reactive. HENT: No oral thrush seen. Moist oral mucosa. NECK: Supple, no JVD or thyromegaly. LUNGS: Good air entry. No rales, no rhonchi. CARDIOVASCULAR: S1, S2 regular. No murmur heard. ABDOMEN: Full, soft. Bowel sounds are present. Tenderness to the lower quadrant. CENTRAL NERVOUS SYSTEM: Awake, alert, oriented x 3. No focal deficits. SKIN: No rashes, no itchiness. LYMPHATIC: No peripheral lymphadenopathy. BACK: No deformity, no pressure ulcer. LABORATORY DATA: Sodium 133, potassium 2.6, BUN 4, creatinine 0.2. WBC 21.0, hemoglobin 9.1, platelets 279. Urine culture, no growth. Blood culture, no growth for one day. RADIOLOGY: CT of the abdomen showed pancolitis. ASSESSMENT: A 59-year-old female admitted with fever, abdominal pain and diarrhea. Current problems include: * Sepsis. * Clostridium difficile colitis. * Pseudomembranous colitis. * Hypokalemia. * Diabetes mellitus. * Leukocytosis. * Anemia. PLAN: * Continue fidaxomicin. * Monitor electrolytes and correct as needed. * Continue pain management. * Continue antidiabetic. * Continue antiemetics. * Continue nutritional support. * The patient will be followed up closely. Thank you for allowing me to participate in the care of this patient. TID: [id number] RECEIPT: [id number]
[2024-11-07] VITALS: BP 93/49; PULSE 78; RESP 16; TEMP 98.1
[2024-11-07 04:00] VITALS: BP 112/64; PULSE 72; RESP 16; TEMP 98.2
[2024-11-07 04:14] LABS: BASOPHILS # (AUTO) 0.05 K/uL (0.00-0.20); BASOPHILS % (AUTO) 0.3 % (0.0-5.0); EOSINOPHILS # (AUTO) 0.34 K/uL (0.00-0.70); EOSINOPHILS % (AUTO) 2.1 % (0.0-8.0); HEMATOCRIT 31.1 % (36-48); IMMATURE GRANULOCYTE ABSOLUTE 0.22 K/uL (0-1); LYMPHOCYTES # (AUTO) 2.1 K/uL (1.0-4.8); LYMPHOCYTES % (AUTO) 12.8 % (21.0-51.0); MEAN CORPUSCULAR HEMOGLOBIN 26.6 pg (27.0-33.0); MEAN CORPUSCULAR HGB CONC 30.9 g/dL (32.0-36.0); MEAN CORPUSCULAR VOLUME 86.1 fL (79-99); MONOCYTES % (AUTO) 6.2 % (3.0-13.0); NEUTROPHILS # (AUTO) 12.5 K/uL (1.8-7.7); NEUTROPHILS % (AUTO) 77.2 % (40.0-77.0); PLATELET COUNT (AUTO) 313 K/uL (130-400); RED BLOOD CELL COUNT(AUTO) 3.61 MIL/uL (4.00-5.50); RED CELL DISTRIBUTION WIDTH 19.5 % (11.0-15.5); WHITE BLOOD COUNT (AUTO) 16.2 K/uL (4.8-10.8)
[2024-11-07 04:42] LABS: ALBUMIN 1.5 g/dL (3.5-5.0); BILIRUBIN,TOTAL 0.2 mg/dL (0.2-1.0); CREATININE 0.3 mg/dL (0.5-1.0); TOTAL PROTEIN, SERUM 4.9 g/dL (6.0-8.3)
--- NOTE | 2024-11-07 05:06 | NUR ---
K+ KT LEVEL 3.0 PATIENT DOESNT WANT IV POTASSIUM BC IT REED , ONLY WANTS PILLS
[2024-11-07 08:00] VITALS: BP 109/60; PULSE 76; RESP 18; TEMP 98.8
[2024-11-07 12:00] VITALS: BP 115/71; PULSE 74; RESP 16; TEMP 97.4
[2024-11-07 12:55] LABS: MAGNESIUM 1.7 mg/dL (1.80-2.40); POTASSIUM 3.8 mmol/L (3.5-5.1)
--- NOTE | 2024-11-07 14:00 | PN ---
[facility] PROGRESS NOTE Date of Service: Nov 07, 2024 Time of Service: 13:51 SUBJECTIVE: Ms. Cordero is a 59-year-old female came to the emergency department with a chief complaint of midsternal chest pain and abdominal pain and diarrhea. She came to the ED few days ago due to abdominal pain, diarrhea, increased urinary frequency and was discharged on cephalexin and lidocaine patch for gluteal skin abrasion. She has a history of ESBL treated with vanco and zosyn in august,. She complains of generalized abdominal pain, 3 episodes of vomitings and 3-4 episodes of watery diarrhea since last night. She denies chest pain or shortness of breath or dizziness. 11/07/24 patient was seen and examined along with RN today, patient had endoscopy and colonoscopy on 11/06/24 found to have pseudomembranous colitis highly suspicious for C diff colitis. Today, he used to have diarrhea REVIEW OF SYSTEMS CONSTITUTIONAL: Denies fevers, chills, or night sweats. No unintentional weight loss reported. NEUROLOGICAL: Denies headache, amaurosis fugax, motor weakness, sensory defici t, vertigo/spinning sensation, gait abnormalities, or tremors. ENT: No hearing loss, otalgia, otorrhea, rhinitis, rhinorrhea, hoarseness, or sore throat. CARDIOVASCULAR: Denies any exertional angina, dyspnea on exertion, orthopnea, paroxysmal nocturnal dyspnea, palpitations, life-threatening arrhythmias, claudication. PULMONARY: Denies any shortness of breath, cough, phlegm/sputum, hemoptysis, pleuritic chest pain. SLEEP: Denies morning headaches, daytime somnolence or napping. Denies difficulty falling asleep, staying asleep, waking from sleep. Denies knowledge of snoring. GASTROINTESTINAL: Complains of nausea, vomiting, abdominal pain, diarrhea, liquid stool consistency. Denies coffee-ground emesis, hematemesis, hematochezia, or melanotic stools. GENITOURINARY: Denies frequency, urgency, no nocturia, hematuria or incontinence (Storage/Irritative symptoms.) Low urinary stream, straining to void, urinary intermittency or hesitancy, splitting of the voiding stream, terminal dribbling. ENDOCRINOLOGIC: Denies polyuria, polydipsia, polyphagia or heat/cold intolerances. HEMATOLOGIC: Denies thrombophilia/previous clots, or coagulopathy/bleeding disorders. ONCOLOGIC: Denies personal history of malignancy. DERMATOLOGIC: Denies rashes or pruritus. PSYCHIATRIC: Denies any suicidal or homicidal ideation. Denies hallucinations. PHYSICAL EXAM GENERAL APPEARANCE: The patient is awake, alert, and oriented, in no acute cardiopulmonary distress. NEUROLOGICAL: Cranial nerves II-XII grossly intact. Motor is 5/5 in bilateral upper and lower extremities proximal to distal. No sensory deficits. HEENT: Face is symmetric. Pupils are equal and reactive. Extraocular movements are intact. NECK: Supple. No JVD. No thyromegaly. No submental, submandibular, pre- /postauricular, occipital or supraclavicular lymphadenopathy. CHEST: Normal chest expansion. No Telemetry. LUNGS: Absence of any rales, rhonchi or any wheezing. CARDIOVASCULAR: Regular. S1 and S2 normal. No appreciable rubs, murmurs or gallops. ABDOMEN: Soft, nontender, and nondistended. There is no rebound, voluntary guarding, or rigidity. : Deferred. No Whitfield. EXTREMITIES: Non-edematous and not cyanotic. No clubbing. Good capillary refill. SKIN: No skin breakdown. Vital Signs (last 8hr) Date Time Temp Pulse Resp B/P (MAP) Pulse Ox O2 Delivery O2 Flow Rate FiO2 11/07/24 08:00 98.8 76 18 109/60 97 Nasal Cannula 2.0 LABS: Laboratory: Test 11/07/24 12:33 11/07/24 12:05 11/07/24 03:38 11/06/24 20:20 Range/Units Potassium Level 3.8 3.5-5.1 mmol/L Magnesium Level 1.70 L 1.80-2.40 mg/dL Whole Blood Glucose 126 H 70-110 MG/DL White Blood Count 16.2 #H 4.8-10.8 K/uL Red Blood Count 3.61 L 4.00-5.50 MIL/uL Hemoglobin 9.6 L 12.0-16.0 g/dL Hematocrit 31.1 L 36-48 % Mean Corpuscular Volume 86.1 79-99 fL Mean Corpuscular Hemoglobin 26.6 L 27.0-33.0 pg Mean Corpuscular Hemoglobin Concent 30.9 L 32.0-36.0 g/dL Red Cell Distribution Width 19.5 H 11.0-15.5 % Platelet Count 313 130-400 K/uL Mean Platelet Volume 10.5 7.5-10.5 fL Immature Granulocyte % (Auto) 1.4 H 0-1 % Neutrophils (%) (Auto) 77.2 H 40.0-77.0 % Lymphocytes (%) (Auto) 12.8 L 21.0-51.0 % Monocytes (%) (Auto) 6.2 3.0-13.0 % Eosinophils (%) (Auto) 2.1 0.0-8.0 % Basophils (%) (Auto) 0.3 0.0-5.0 % Neutrophils # (Auto) 12.5 H 1.8-7.7 K/uL Lymphocytes # (Auto) 2.1 1.0-4.8 K/uL Monocytes # (Auto) 1.0 0.1-1.0 K/uL Eosinophils # (Auto) 0.34 0.00-0.70 K/uL Basophils # (Auto) 0.05 0.00-0.20 K/uL Absolute Immature Granulocyte (auto 0.22 0-1 K/uL Nucleated Red Blood Cells 0.0 0.0-0.19 % Sodium Level 138 136-145 mmol/L Chloride Level 103 101-111 mmol/L Carbon Dioxide Level 30 21-32 mmol/L Blood Urea Nitrogen 3 L 7-18 mg/dL Creatinine 0.3 L 0.5-1.0 mg/dL Glomerular Filtration Rate Calc 121 >90 mL/min Random Glucose 81 70-105 mg/dL Lactic Acid Level 1.2 0.8-2.5 mmol/L Total Calcium 8.8 8.5-10.1 mg/dL Total Bilirubin 0.2 0.2-1.0 mg/dL Aspartate Amino Transf (AST/SGOT) 28 10-37 U/L Alanine Aminotransferase (ALT/SGPT) 14 12-78 U/L Alkaline Phosphatase 79 50-136 U/L C-Reactive Protein, Quantitative 181.00 H 0.5-3.0 mg/L Total Protein 4.9 L 6.0-8.3 g/dL Albumin 1.5 L 3.5-5.0 g/dL C. difficile Antigen and Toxins A,B See comments NEG Current Medications Medications (Trade) Dose Ordered Sig/Toby Route PRN Reason Start Time Stop Time Status Last Admin Dose Admin Acetaminophen (TYLenol 325MG TAB) 650 mg Q6H PRN PO TEMPERATURE GREATER THAN 101.5 11/04/24 19:30 12/04/24 19:29 11/05/24 15:48 650 MG Aspirin (Aspirin 81mg Chew Tab) 81 mg DAILY PO 11/05/24 09:00 12/05/24 08:59 11/07/24 08:00 81 MG Enoxaparin Sodium (Lovenox) 40 mg DAILY SQ 11/05/24 09:00 12/05/24 08:59 11/07/24 08:00 40 MG Famotidine (Pepcid 20mg Tab) 20 mg DAILY PO 11/05/24 09:00 12/05/24 08:59 11/07/24 08:00 20 MG Fidaxomicin (Dificid) 200 mg Q12H PO 11/06/24 10:30 11/06/24 19:02 DC 11/06/24 10:30 200 MG Fidaxomicin (Dificid) 200 mg Q12H PO 11/06/24 21:00 11/16/24 20:59 11/07/24 08:00 200 MG Hydralazine HCl (APRESOLine 20MG INJ) 10 mg Q6H PRN IV For:SBP above 160;DBP above 90 11/04/24 19:30 12/04/24 19:29 Magnesium Sulfate 50 ml @ 0 mls/hr PROTOCOL IV 11/04/24 17:30 11/06/24 11:44 DC 11/05/24 08:18 25 MLS/HR Magnesium Sulfate 50 ml @ 0 mls/hr PROTOCOL PRN IV h 11/04/24 19:30 12/04/24 19:29 Morphine Sulfate (morPHINE 2MG SYG) 2 mg Q4H PRN IVP SEVERE PAIN (7-10) 11/06/24 12:00 11/11/24 19:29 Morphine Sulfate (morPHINE 4MG SYG) 2 mg Q4H PRN IVP SEVERE PAIN (7-10) 11/04/24 19:30 11/06/24 11:45 DC Nitroglycerin (Nitrostat) 0.4 mg PROTOCOL PRN SL CHEST PAIN 11/04/24 19:30 12/04/24 19:29 Ondansetron HCl (zoFRAN 4MG INJ) 4 mg Q6H PRN IV NAUSEA/VOMITING 11/04/24 19:30 12/04/24 19:29 11/05/24 05:27 4 MG Piperacillin Sod/ Tazobactam Sod (Zosyn 3.375gm+NS 50ml) 3.375 gm Q8H IV 11/04/24 20:00 11/06/24 10:19 DC 11/06/24 03:24 3.375 GM Potassium Chloride 100 ml @ 100 mls/hr AD PRN IV POTASSIUM PROTOCOL 11/04/24 19:30 12/04/24 19:29 11/07/24 08:01 100 MLS/HR Potassium Chloride (K-Dur/Klor-Con 20meq) 20 meq AD PRN PO POTASSIUM PROTOCOL 11/04/24 19:30 12/04/24 19:29 11/07/24 05:07 20 MEQ Potassium Chloride (KCl 10% Elixir 20meq/15ml) 20 meq AD PRN PO POTASSIUM PROTOCOL 11/04/24 19:30 12/04/24 19:29 11/05/24 09:04 20 MEQ DIAGNOSTICS / RADIOLOGY: [ ] ASSESSMENT: Sepsis due to pancolitis, POA C diff colitis present on admission Hypokalemia, POA Hypomagnesemia. Chest pain due to GERD, POA Diabetes mellitius type2 Hypertension PLAN: Although the antigen and toxins in the stool are negative but pseudomembranous colitis is highly better ergonomic for C diff colitis we will continue to treat as C diff colitis currently. WBC count is coming down patient diarrhea resolving. Patient has had colonoscopy on 11/06/24 showed possible C diff colitis pseudomembranous colitis. cont on deficit. id consult appreciated Continue fluid resuscitation with lactated Ringer's 30 mL/kg Check blood culture, follow up with the results Ordered urinalysis which is pending to be collected and sent to lab Hypokalemia and hypomanesemia : Replace per protocol. Diabetes mellitus type 2: Check hemoglobin A1c in a.m. Glucometer checks a.c. and HS 1800 ADA diet Humulin R sliding scale Musculoskeletal chest pain due to Gastroenteritis: Continue zofran, famotidine, antibiotics Clear liquid diet 09/13 2D echo - LVEF 45-50 %, LV diastolic function normal, mild anteroseptal hypokinesis Hypertension: Resume home medications. Patient on telemetry monitoring GI prophylaxis, famotidine DVT prophylaxis, Lovenox Continue aspirin 81 mg by mouth once daily JESSE SOSA MD Nov 07, 2024 14:00
[2024-11-07] MEDS: MAGNESIUM 2GM PREMIX 50ML 50 ML IV PRN (14:22)
[2024-11-07 16:00] VITALS: BP 131/76; PULSE 83; RESP 16; TEMP 97.9
[2024-11-07 20:00] VITALS: BP 117/78; PULSE 79; RESP 17; TEMP 97.9
--- NOTE | 2024-11-07 20:33 | PN ---
INFECTIOUS DISEASE FOLLOWUP NOTE DATE OF SERVICE: 11/07/2024 SUBJECTIVE: The patient is seen. No fever or chills Nausea and vomiting are resolved. Diarrhea also resolved. Abdominal pain is better. The patient's diet has been advanced and she is tolerating orally. No dysuria or urinary frequency. No bleeding tendency. No palpitation or orthopnea. No slurred speech, no limb weakness. PHYSICAL EXAMINATION: VITAL SIGNS: Temperature 97.5. EYES: No icterus. Pupils are equal and reactive. HENT: No oral thrush seen. Moist oral mucosa. NECK: Supple, no JVD or thyromegaly. LUNGS: Good air entry. No rales, no rhonchi. CARDIOVASCULAR: S1, S2 regular. No murmur heard. ABDOMEN: Soft. Bowel sounds are present. CENTRAL NERVOUS SYSTEM: Awake, alert, oriented x 3. No focal deficits. SKIN: No rashes, no itchiness. LYMPHATIC: No peripheral lymphadenopathy. MUSCULOSKELETAL: No joint swelling, erythema or tenderness. Status post [id number] amputation. Stump is well healed. ASSESSMENT: A 59-year-old female with multiple problems include: * Sepsis. * Clostridium difficile colitis. * Hypokalemia. * Diabetes mellitus. * Anemia. * Leukocytosis. * Pseudomembranous colitis. PLAN: * Continue fidaxomicin. * Continue pain management. * Continue antiemetic. * Monitor electrolytes and correct as needed. * Continue GI prophylaxis. * Continue antiemetic. TID: [id number] RECEIPT: [id number]
[2024-11-08] VITALS (8 sets, daily range): BP systolic 117–138; BP diastolic 59–82; PULSE 66–83; RESP 16–18; TEMP 97.8–98.2; O2SAT 99–100
[2024-11-08 08:53] LABS: BASOPHILS # (AUTO) 0.05 K/uL (0.00-0.20); BASOPHILS % (AUTO) 0.7 % (0.0-5.0); EOSINOPHILS % (AUTO) 2.6 % (0.0-8.0); HEMATOCRIT 35.2 % (36-48); IMMATURE GRANULOCYTE ABSOLUTE 0.18 K/uL (0-1); LYMPHOCYTES # (AUTO) 2.3 K/uL (1.0-4.8); LYMPHOCYTES % (AUTO) 29.9 % (21.0-51.0); MEAN CORPUSCULAR HEMOGLOBIN 26.3 pg (27.0-33.0); MEAN CORPUSCULAR HGB CONC 30.1 g/dL (32.0-36.0); MEAN CORPUSCULAR VOLUME 87.3 fL (79-99); MONOCYTES # (AUTO) 0.7 K/uL (0.1-1.0); MONOCYTES % (AUTO) 8.5 % (3.0-13.0); NEUTROPHILS # (AUTO) 4.3 K/uL (1.8-7.7); PLATELET COUNT (AUTO) 377 K/uL (130-400); RED BLOOD CELL COUNT(AUTO) 4.03 MIL/uL (4.00-5.50); RED CELL DISTRIBUTION WIDTH 19.8 % (11.0-15.5); WHITE BLOOD COUNT (AUTO) 7.7 K/uL (4.8-10.8)
[2024-11-08 09:10] LABS: C DIFFICILE TOXIN A/B Detected (Not Detected); ENTEROAGGREGATIVE ECOLI Not Detected (Not Detected); GIARDIA LAMBLIA Not Detected (Not Detected); PLESIOMONAS SHIGELOIDES Not Detected (Not Detected); SAPOVIRUS Not Detected (Not Detected); SHIGELLA/ENTEROINVASIVE E COLI Not Detected (Not Detected); VIBRIO Not Detected (Not Detected); VIBRIO CHOLERAE Not Detected (Not Detected)
[2024-11-08 09:13] LABS: CREATININE 0.4 mg/dL (0.5-1.0)
[2024-11-08 09:16] LABS: PHOSPHORUS 2.4 mg/dL (2.5-4.9)
--- NOTE | 2024-11-08 14:50 | PN ---
[facility] PROGRESS NOTE Date of Service: Nov 08, 2024 Time of Service: 14:48 SUBJECTIVE: Ms. Cordero is a 59-year-old female came to the emergency department with a chief complaint of midsternal chest pain and abdominal pain and diarrhea. She came to the ED few days ago due to abdominal pain, diarrhea, increased urinary frequency and was discharged on cephalexin and lidocaine patch for gluteal skin abrasion. She has a history of ESBL treated with vanco and zosyn in august,. She complains of generalized abdominal pain, 3 episodes of vomitings and 3-4 episodes of watery diarrhea since last night. She denies chest pain or shortness of breath or dizziness. 11/07/24 patient was seen and examined along with RN today, patient had endoscopy and colonoscopy on 11/06/24 found to have pseudomembranous colitis highly suspicious for C diff colitis. Today, he used to have diarrhea 11/08/24 pt seen and examined complain of diarrhea has some excoriation around her better due to diarrhea. Her white count has gone down to normal electrolytes are normal. REVIEW OF SYSTEMS CONSTITUTIONAL: Denies fevers, chills, or night sweats. No unintentional weight loss reported. NEUROLOGICAL: Denies headache, amaurosis fugax, motor weakness, sensory deficit, vertigo/spinning sensation, gait abnormalities, or tremors. ENT: No hearing loss, otalgia, otorrhea, rhinitis, rhinorrhea, hoarseness, or sore throat. CARDIOVASCULAR: Denies any exertional angina, dyspnea on exertion, orthopnea, paroxysmal nocturnal dyspnea, palpitations, life-threatening arrhythmias, claudication. PULMONARY: Denies any shortness of breath, cough, phlegm/sputum, hemoptysis, pleuritic chest pain. SLEEP: Denies morning headaches, daytime somnolence or napping. Denies difficulty falling asleep, staying asleep, waking from sleep. Denies knowledge of snoring. GASTROINTESTINAL: Complains of nausea, vomiting, abdominal pain, diarrhea, liquid stool consistency. Denies coffee-ground emesis, hematemesis, hematochezia, or melanotic stools. GENITOURINARY: Denies frequency, urgency, no nocturia, hematuria or incontinence (Storage/Irritative symptoms.) Low urinary stream, straining to void, urinary intermittency or hesitancy, splitting of the voiding stream, terminal dribbling. ENDOCRINOLOGIC: Denies polyuria, polydipsia, polyphagia or heat/cold intolerances. HEMATOLOGIC: Denies thrombophilia/previous clots, or coagulopathy/bleeding disorders. ONCOLOGIC: Denies personal history of malignancy. DERMATOLOGIC: Denies rashes or pruritus. PSYCHIATRIC: Denies any suicidal or homicidal ideation. Denies hallucinations. PHYSICAL EXAM GENERAL APPEARANCE: The patient is awake, alert, and oriented, in no acute cardiopulmonary distress. NEUROLOGICAL: Cranial nerves II-XII grossly intact. Motor is 5/5 in bilateral upper and lower extremities proximal to distal. No sensory deficits. HEENT: Face is symmetric. Pupils are equal and reactive. Extraocular movements are intact. NECK: Supple. No JVD. No thyromegaly. No submental, submandibular, pre- /postauricular, occipital or supraclavicular lymphadenopathy. CHEST: Normal chest expansion. No Telemetry. LUNGS: Absence of any rales, rhonchi or any wheezing. CARDIOVASCULAR: Regular. S1 and S2 normal. No appreciable rubs, murmurs or gallops. ABDOMEN: Soft, nontender, and nondistended. There is no rebound, voluntary guarding, or rigidity. : Deferred. No Whitfield. EXTREMITIES: Non-edematous and not cyanotic. No clubbing. Good capillary refill. SKIN: No skin breakdown. Vital Signs (last 8hr) Date Time Temp Pulse Resp B/P (MAP) Pulse Ox O2 Delivery O2 Flow Rate FiO2 11/08/24 11:58 98.1 83 18 133/70 99 Room Air 21 11/08/24 07:25 98.1 72 18 117/59 95 Room Air 21 LABS: Laboratory: Test 11/08/24 11:25 11/08/24 08:24 11/07/24 03:38 11/06/24 20:20 Range/Units Whole Blood Glucose 122 H 70-110 MG/DL White Blood Count 7.7 4.8-10.8 K/uL Red Blood Count 4.03 4.00-5.50 MIL/uL Hemoglobin 10.6 L 12.0-16.0 g/dL Hematocrit 35.2 L 36-48 % Mean Corpuscular Volume 87.3 79-99 fL Mean Corpuscular Hemoglobin 26.3 L 27.0-33.0 pg Mean Corpuscular Hemoglobin Concent 30.1 L 32.0-36.0 g/dL Red Cell Distribution Width 19.8 H 11.0-15.5 % Platelet Count 377 130-400 K/uL Mean Platelet Volume 9.9 7.5-10.5 fL Immature Granulocyte % (Auto) 2.3 H 0-1 % Neutrophils (%) (Auto) 56.0 40.0-77.0 % Lymphocytes (%) (Auto) 29.9 21.0-51.0 % Monocytes (%) (Auto) 8.5 3.0-13.0 % Eosinophils (%) (Auto) 2.6 0.0-8.0 % Basophils (%) (Auto) 0.7 0.0-5.0 % Neutrophils # (Auto) 4.3 1.8-7.7 K/uL Lymphocytes # (Auto) 2.3 1.0-4.8 K/uL Monocytes # (Auto) 0.7 0.1-1.0 K/uL Eosinophils # (Auto) 0.20 0.00-0.70 K/uL Basophils # (Auto) 0.05 0.00-0.20 K/uL Absolute Immature Granulocyte (auto 0.18 0-1 K/uL Nucleated Red Blood Cells 0.0 0.0-0.19 % Sodium Level 138 136-145 mmol/L Potassium Level 4.0 3.5-5.1 mmol/L Chloride Level 104 101-111 mmol/L Carbon Dioxide Level 31 21-32 mmol/L Blood Urea Nitrogen 3 L 7-18 mg/dL Creatinine 0.4 L 0.5-1.0 mg/dL Glomerular Filtration Rate Calc 113 >90 mL/min Random Glucose 133 H 70-105 mg/dL Total Calcium 8.8 8.5-10.1 mg/dL Phosphorus Level 2.4 L 2.5-4.9 mg/dL Magnesium Level 2.00 1.80-2.40 mg/dL Lactic Acid Level 1.2 0.8-2.5 mmol/L Total Bilirubin 0.2 0.2-1.0 mg/dL Aspartate Amino Transf (AST/SGOT) 28 10-37 U/L Alanine Aminotransferase (ALT/SGPT) 14 12-78 U/L Alkaline Phosphatase 79 50-136 U/L C-Reactive Protein, Quantitative 181.00 H 0.5-3.0 mg/L Total Protein 4.9 L 6.0-8.3 g/dL Albumin 1.5 L 3.5-5.0 g/dL C. difficile Antigen and Toxins A,B See comments NEG Current Medications Medications (Trade) Dose Ordered Sig/Toby Route PRN Reason Start Time Stop Time Status Last Admin Dose Admin Acetaminophen (TYLenol 325MG TAB) 650 mg Q6H PRN PO TEMPERATURE GREATER THAN 101.5 11/04/24 19:30 12/04/24 19:29 11/05/24 15:48 650 MG Aspirin (Aspirin 81mg Chew Tab) 81 mg DAILY PO 11/05/24 09:00 12/05/24 08:59 11/08/24 10:13 81 MG Enoxaparin Sodium (Lovenox) 40 mg DAILY SQ 11/05/24 09:00 12/05/24 08:59 11/08/24 10:14 40 MG Famotidine (Pepcid 20mg Tab) 20 mg DAILY PO 11/05/24 09:00 12/05/24 08:59 11/08/24 10:13 20 MG Fidaxomicin (Dificid) 200 mg Q12H PO 11/06/24 10:30 11/06/24 19:02 DC 11/06/24 10:30 200 MG Fidaxomicin (Dificid) 200 mg Q12H PO 11/06/24 21:00 11/16/24 20:59 11/08/24 10:13 200 MG Hydralazine HCl (APRESOLine 20MG INJ) 10 mg Q6H PRN IV For:SBP above 160;DBP above 90 11/04/24 19:30 12/04/24 19:29 Magnesium Sulfate 50 ml @ 0 mls/hr PROTOCOL IV 11/04/24 17:30 11/06/24 11:44 DC 11/05/24 08:18 25 MLS/HR Magnesium Sulfate 50 ml @ 0 mls/hr PROTOCOL PRN IV h 11/04/24 19:30 12/04/24 19:29 11/07/24 14:22 25 MLS/HR Morphine Sulfate (morPHINE 2MG SYG) 2 mg Q4H PRN IVP SEVERE PAIN (7-10) 11/06/24 12:00 11/11/24 19:29 Morphine Sulfate (morPHINE 4MG SYG) 2 mg Q4H PRN IVP SEVERE PAIN (7-10) 11/04/24 19:30 11/06/24 11:45 DC Nitroglycerin (Nitrostat) 0.4 mg PROTOCOL PRN SL CHEST PAIN 11/04/24 19:30 12/04/24 19:29 Ondansetron HCl (zoFRAN 4MG INJ) 4 mg Q6H PRN IV NAUSEA/VOMITING 11/04/24 19:30 12/04/24 19:29 11/05/24 05:27 4 MG Piperacillin Sod/ Tazobactam Sod (Zosyn 3.375gm+NS 50ml) 3.375 gm Q8H IV 11/04/24 20:00 11/06/24 10:19 DC 11/06/24 03:24 3.375 GM Potassium Chloride 100 ml @ 100 mls/hr AD PRN IV POTASSIUM PROTOCOL 11/04/24 19:30 12/04/24 19:29 11/07/24 08:01 100 MLS/HR Potassium Chloride (K-Dur/Klor-Con 20meq) 20 meq AD PRN PO POTASSIUM PROTOCOL 11/04/24 19:30 12/04/24 19:29 11/07/24 17:55 20 MEQ Potassium Chloride (KCl 10% Elixir 20meq/15ml) 20 meq AD PRN PO POTASSIUM PROTOCOL 11/04/24 19:30 12/04/24 19:29 11/05/24 09:04 20 MEQ DIAGNOSTICS / RADIOLOGY: [ ] ASSESSMENT: Sepsis due to pancolitis, POA C diff colitis present on admission Hypokalemia, POA Hypomagnesemia. Chest pain due to GERD, POA Diabetes mellitius type2 Hypertension PLAN: Although the antigen and toxins in the stool are negative but pseudomembranous colitis is highly better ergonomic for C diff colitis we will continue to treat as C diff colitis currently. WBC has come down to normal. Patient has had colonoscopy on 11/06/24 showed possible C diff colitis pseudomembranous colitis. cont on DEFICID 200 bid 10-14 days id consult appreciated Check blood culture, follow up with the results Ordered urinalysis which is pending to be collected and sent to lab Hypokalemia and hypomanesemia : Replace per protocol. Diabetes mellitus type 2: Check hemoglobin A1c in a.m. Glucometer checks a.c. and HS 1800 ADA diet Humulin R sliding scale Musculoskeletal chest pain due to Gastroenteritis: Continue zofran, famotidine, antibiotics Clear liquid diet 09/13 2D echo - LVEF 45-50 %, LV diastolic function normal, mild anteroseptal hypokinesis Hypertension: Resume home medications. Patient on telemetry monitoring GI prophylaxis, famotidine DVT prophylaxis, Lovenox Continue aspirin 81 mg by mouth once daily JESSE SOSA MD Nov 08, 2024 14:50
--- NOTE | 2024-11-08 16:27 | PN ---
INFECTIOUS DISEASE PROGRESS NOTE Date of Service: Nov 08, 2024 SUBJECTIVE: 49-year-old female patient is being seen today at bedside. No fever or chills. No nausea or vomiting. No abdominal pain at this time. Patient is awake, alert oriented x3. patient states diarrhea improved. She remains on fidaxomicin, tolerating well. Denies dysuria or hematuria. No respiratory distress. She is calm seating in bed. No over night events reported. PHYSICAL EXAM EYES: Anicteric. Pupils equal and reactive. HENT: No oral thrush seen, moist Oral mucosa NECK: Supple, no JVD or thyromegaly. LUNGS: Good air entry. No rales, no rhonchi. CARDIOVASCULAR: S1, S2 regular. No murmur heard. ABDOMEN: Soft, non tender, bowel sounds present, no organomegaly CENTRAL NERVOUS SYSTEM: Awake, alert, oriented x 3. No focal deficits. SKIN: No rashes, no swelling. LYMPHATICS: No peripheral lymphadenopathy MUSCULOSKELETAL: No joint swelling, erythema or tenderness. EXTREMITIES: No cyanosis or clubbing BACK: No deformity, no pressure ulcer. GENITOURINARY: No dysuria or hematuria Vital Sign (Last 12 Hours) 11/08/24 11/08/24 11/08/24 07:25 08:00 11:58 Temp 98.1 98.1 Pulse 72 83 Resp 18 18 B/P (MAP) 117/59 133/70 Pulse Ox 95 99 99 O2 Delivery Room Air Room Air* Room Air O2 Flow Rate 0 FiO2 21 21 21 Intake & Output (last 24hrs) 11/07/24 11/07/24 11/08/24 15:00 23:00 07:00 Intake Total 120 ml Balance 120 ml LABS: Laboratory: Test 11/08/24 11:25 11/08/24 08:24 11/07/24 03:38 11/06/24 20:20 Range/Units Whole Blood Glucose 122 H 70-110 MG/DL White Blood Count 7.7 4.8-10.8 K/uL Red Blood Count 4.03 4.00-5.50 MIL/uL Hemoglobin 10.6 L 12.0-16.0 g/dL Hematocrit 35.2 L 36-48 % Mean Corpuscular Volume 87.3 79-99 fL Mean Corpuscular Hemoglobin 26.3 L 27.0-33.0 pg Mean Corpuscular Hemoglobin Concent 30.1 L 32.0-36.0 g/dL Red Cell Distribution Width 19.8 H 11.0-15.5 % Platelet Count 377 130-400 K/uL Mean Platelet Volume 9.9 7.5-10.5 fL Immature Granulocyte % (Auto) 2.3 H 0-1 % Neutrophils (%) (Auto) 56.0 40.0-77.0 % Lymphocytes (%) (Auto) 29.9 21.0-51.0 % Monocytes (%) (Auto) 8.5 3.0-13.0 % Eosinophils (%) (Auto) 2.6 0.0-8.0 % Basophils (%) (Auto) 0.7 0.0-5.0 % Neutrophils # (Auto) 4.3 1.8-7.7 K/uL Lymphocytes # (Auto) 2.3 1.0-4.8 K/uL Monocytes # (Auto) 0.7 0.1-1.0 K/uL Eosinophils # (Auto) 0.20 0.00-0.70 K/uL Basophils # (Auto) 0.05 0.00-0.20 K/uL Absolute Immature Granulocyte (auto 0.18 0-1 K/uL Nucleated Red Blood Cells 0.0 0.0-0.19 % Sodium Level 138 136-145 mmol/L Potassium Level 4.0 3.5-5.1 mmol/L Chloride Level 104 101-111 mmol/L Carbon Dioxide Level 31 21-32 mmol/L Blood Urea Nitrogen 3 L 7-18 mg/dL Creatinine 0.4 L 0.5-1.0 mg/dL Glomerular Filtration Rate Calc 113 >90 mL/min Random Glucose 133 H 70-105 mg/dL Total Calcium 8.8 8.5-10.1 mg/dL Phosphorus Level 2.4 L 2.5-4.9 mg/dL Magnesium Level 2.00 1.80-2.40 mg/dL Lactic Acid Level 1.2 0.8-2.5 mmol/L Total Bilirubin 0.2 0.2-1.0 mg/dL Aspartate Amino Transf (AST/SGOT) 28 10-37 U/L Alanine Aminotransferase (ALT/SGPT) 14 12-78 U/L Alkaline Phosphatase 79 50-136 U/L C-Reactive Protein, Quantitative 181.00 H 0.5-3.0 mg/L Total Protein 4.9 L 6.0-8.3 g/dL Albumin 1.5 L 3.5-5.0 g/dL C. difficile Antigen and Toxins A,B See comments NEG ASSESSMENT: 59-year-old female patient with current problems which include: * Sepsis. * Clostridium difficile colitis. * Hypokalemia. * Diabetes mellitus. * Anemia. * Leukocytosis. * Pseudomembranous colitis. PLAN: * Continue fidaxomicin. * Continue pain management. * Continue antiemetic. * Monitor electrolytes and correct as needed. * Continue GI prophylaxis. * Continue antiemetic. This has been discussed with my supervising physician Dr. Morris. The case has been discussed and agreed upon. DIVINE SONG Nov 08, 2024 16:27
[2024-11-08] MEDS: BALSAM PERU/CASTOR OIL 60 GM TUBE TP SCH (22:33)
[2024-11-09] VITALS: BP 133/78; PULSE 82; RESP 17; TEMP 98.4
[2024-11-09 04:00] VITALS: BP 136/77; PULSE 75; RESP 16; TEMP 98
[2024-11-09 05:13] LABS: BASOPHILS # (AUTO) 0.05 K/uL (0.00-0.20); BASOPHILS % (AUTO) 0.7 % (0.0-5.0); EOSINOPHILS # (AUTO) 0.21 K/uL (0.00-0.70); EOSINOPHILS % (AUTO) 2.8 % (0.0-8.0); HEMATOCRIT 31.8 % (36-48); IMMATURE GRANULOCYTE ABSOLUTE 0.16 K/uL (0-1); LYMPHOCYTES # (AUTO) 2.6 K/uL (1.0-4.8); LYMPHOCYTES % (AUTO) 35.1 % (21.0-51.0); MEAN CORPUSCULAR HEMOGLOBIN 26.1 pg (27.0-33.0); MEAN CORPUSCULAR HGB CONC 30.5 g/dL (32.0-36.0); MEAN CORPUSCULAR VOLUME 85.5 fL (79-99); MONOCYTES # (AUTO) 0.7 K/uL (0.1-1.0); MONOCYTES % (AUTO) 9.2 % (3.0-13.0); NEUTROPHILS # (AUTO) 3.8 K/uL (1.8-7.7); NEUTROPHILS % (AUTO) 50.1 % (40.0-77.0); PLATELET COUNT (AUTO) 304 K/uL (130-400); RED BLOOD CELL COUNT(AUTO) 3.72 MIL/uL (4.00-5.50); RED CELL DISTRIBUTION WIDTH 19.8 % (11.0-15.5); WHITE BLOOD COUNT (AUTO) 7.5 K/uL (4.8-10.8)
[2024-11-09 05:24] LABS: CREATININE 0.3 mg/dL (0.5-1.0); POTASSIUM 3.6 mmol/L (3.5-5.1)
[2024-11-09 07:10] VITALS: BP 135/77; PULSE 74; RESP 18; TEMP 97.9
[2024-11-09 08:10] VITALS: O2SAT 100
--- NOTE | 2024-11-09 09:38 | PN ---
GASTROENTEROLOGY PROGRESS NOTE Date of Visit: Nov 09, 2024 Time of Visit: 09:38 Events / Notes: [ ] Review of Systems: CONSTITUTIONAL: No malaise or change in sensation of wellbeing. ENMT: No rhinorrhea, otorrhea, sinus pain, ear ache. CARDIOVASCULAR: No angina, palpitations, orthopnea or paroxysmal dyspnea. RESPIRATORY: No SOB. GASTROINTESTINAL: No abdominal pain, nausea, vomiting, diarrhea, hematemesis, melena or change in the patient's habitual bowel movements consistency/number. GENITOURINARY: No dysuria, hematuria or change in bladder continence. MUSCULOSKELETAL: No new muscle pain or decrease in muscular strength. No new joint swelling, redness or tenderness. SKIN: No new rash. Physical Exam: GEN: Awake, alert, oriented in person, time and place, and in no acute distress. HEENT: No sinus tenderness. Tympanic membranes were not examined. No rhinorrhea. Oral pharyngeal mucosa is pink, moist and within normal limits. Neck is supple with no cervical lymphadenopathy, thyromegaly or JVD. CHEST: Inspection, palpation and percussion of the chest were unremarkable. Lung auscultation revealed normal breath sounds bilaterally. CARDIAC: PMI is within normal limits. Heart sounds are regular. Normal S1, S2. No gallop or murmur. ABD: Soft, non-tender and not distended. No peritoneal signs on palpation. No organomegaly. Normal bowel sounds. EXT: No cyanosis or clubbing. No edema. SKIN: Intact. No rashes. JOINTS: No evidence of synovitis or acute arthritis. NEURO: Alert and oriented to name, place and person. Cranial nerve examination is unremarkable. No focal motor deficits. Normal speech. Gait is normal. Strength is normal. Vital Signs (last 8hr) Date Time Temp Pulse Resp B/P (MAP) Pulse Ox O2 Delivery O2 Flow Rate FiO2 11/09/24 07:10 97.9 74 18 135/77 100 Room Air 21 11/09/24 04:00 98.1 75 16 136/77 96 Room Air Laboratory: [ ] Laboratory: Test 11/09/24 07:13 11/09/24 04:27 11/08/24 08:24 Range/Units Whole Blood Glucose 110 70-110 MG/DL White Blood Count 7.5 4.8-10.8 K/uL Red Blood Count 3.72 L 4.00-5.50 MIL/uL Hemoglobin 9.7 L 12.0-16.0 g/dL Hematocrit 31.8 L 36-48 % Mean Corpuscular Volume 85.5 79-99 fL Mean Corpuscular Hemoglobin 26.1 L 27.0-33.0 pg Mean Corpuscular Hemoglobin Concent 30.5 L 32.0-36.0 g/dL Red Cell Distribution Width 19.8 H 11.0-15.5 % Platelet Count 304 130-400 K/uL Mean Platelet Volume 11.4 H 7.5-10.5 fL Immature Granulocyte % (Auto) 2.1 H 0-1 % Neutrophils (%) (Auto) 50.1 40.0-77.0 % Lymphocytes (%) (Auto) 35.1 21.0-51.0 % Monocytes (%) (Auto) 9.2 3.0-13.0 % Eosinophils (%) (Auto) 2.8 0.0-8.0 % Basophils (%) (Auto) 0.7 0.0-5.0 % Neutrophils # (Auto) 3.8 1.8-7.7 K/uL Lymphocytes # (Auto) 2.6 1.0-4.8 K/uL Monocytes # (Auto) 0.7 0.1-1.0 K/uL Eosinophils # (Auto) 0.21 0.00-0.70 K/uL Basophils # (Auto) 0.05 0.00-0.20 K/uL Absolute Immature Granulocyte (auto 0.16 0-1 K/uL Nucleated Red Blood Cells 0.0 0.0-0.19 % Sodium Level 142 136-145 mmol/L Potassium Level 3.6 3.5-5.1 mmol/L Chloride Level 105 101-111 mmol/L Carbon Dioxide Level 30 21-32 mmol/L Blood Urea Nitrogen 4 L 7-18 mg/dL Creatinine 0.3 L 0.5-1.0 mg/dL Glomerular Filtration Rate Calc 121 >90 mL/min Random Glucose 110 H 70-105 mg/dL Total Calcium 8.3 L 8.5-10.1 mg/dL Phosphorus Level 2.4 L 2.5-4.9 mg/dL Magnesium Level 2.00 1.80-2.40 mg/dL Current Medications Medications (Trade) Dose Ordered Sig/Toby Route PRN Reason Start Time Stop Time Status Last Admin Dose Admin Acetaminophen (TYLenol 325MG TAB) 650 mg Q6H PRN PO TEMPERATURE GREATER THAN 101.5 11/04/24 19:30 12/04/24 19:29 11/05/24 15:48 650 MG Aspirin (Aspirin 81mg Chew Tab) 81 mg DAILY PO 11/05/24 09:00 12/05/24 08:59 11/09/24 08:39 81 MG Enoxaparin Sodium (Lovenox) 40 mg DAILY SQ 11/05/24 09:00 12/05/24 08:59 11/09/24 08:40 40 MG Famotidine (Pepcid 20mg Tab) 20 mg DAILY PO 11/05/24 09:00 12/05/24 08:59 11/09/24 08:39 20 MG Fidaxomicin (Dificid) 200 mg Q12H PO 11/06/24 10:30 11/06/24 19:02 DC 11/06/24 10:30 200 MG Fidaxomicin (Dificid) 200 mg Q12H PO 11/06/24 21:00 11/16/24 20:59 11/09/24 08:39 200 MG Hydralazine HCl (APRESOLine 20MG INJ) 10 mg Q6H PRN IV For:SBP above 160;DBP above 90 11/04/24 19:30 12/04/24 19:29 Magnesium Sulfate 50 ml @ 0 mls/hr PROTOCOL IV 11/04/24 17:30 11/06/24 11:44 DC 11/05/24 08:18 25 MLS/HR Magnesium Sulfate 50 ml @ 0 mls/hr PROTOCOL PRN IV h 11/04/24 19:30 12/04/24 19:29 11/07/24 14:22 25 MLS/HR Morphine Sulfate (morPHINE 2MG SYG) 2 mg Q4H PRN IVP SEVERE PAIN (7-10) 11/06/24 12:00 11/11/24 19:29 Morphine Sulfate (morPHINE 4MG SYG) 2 mg Q4H PRN IVP SEVERE PAIN (7-10) 11/04/24 19:30 11/06/24 11:45 DC Nitroglycerin (Nitrostat) 0.4 mg PROTOCOL PRN SL CHEST PAIN 11/04/24 19:30 12/04/24 19:29 Ondansetron HCl (zoFRAN 4MG INJ) 4 mg Q6H PRN IV NAUSEA/VOMITING 11/04/24 19:30 12/04/24 19:29 11/05/24 05:27 4 MG Piperacillin Sod/ Tazobactam Sod (Zosyn 3.375gm+NS 50ml) 3.375 gm Q8H IV 11/04/24 20:00 11/06/24 10:19 DC 11/06/24 03:24 3.375 GM Potassium Chloride 100 ml @ 100 mls/hr AD PRN IV POTASSIUM PROTOCOL 11/04/24 19:30 12/04/24 19:29 11/07/24 08:01 100 MLS/HR Potassium Chloride (K-Dur/Klor-Con 20meq) 20 meq AD PRN PO POTASSIUM PROTOCOL 11/04/24 19:30 12/04/24 19:29 11/07/24 17:55 20 MEQ Potassium Chloride (KCl 10% Elixir 20meq/15ml) 20 meq AD PRN PO POTASSIUM PROTOCOL 11/04/24 19:30 12/04/24 19:29 11/09/24 08:40 20 MEQ Wound Care/ Dressing Products (Venelex Ointment) 1 gm TID TP 11/08/24 21:00 12/08/24 20:59 11/09/24 08:40 1 GM Diagnostics / Radiology: [COPY/PASTE HERE IF NO REPORTS PLEASE DELETE SECTION] Assessment: Melena Diarrhea Abnormal imaging revealing pancolitis DM HTN Plan: GREGORY BELTRAN [employer]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
[2024-11-09 11:30] VITALS: BP 126/75; PULSE 80; RESP 18; TEMP 98.2
[2024-11-09] MEDS ORDERED: FIDA200T PO (12:45)
[2024-11-09] MEDS ORDERED: BALS60OI TP (12:45)
[2024-11-09] MEDS ORDERED: PANT40TA55 PO (12:55)
[2024-11-09] MEDS ORDERED: SACC250C3 PO (12:57)
--- NOTE | 2024-11-09 12:59 | DS ---
Discharge Summary Hospital Course Summary: 59-year-old female presented to ER complaining of abdominal pain and diarrhea. initial workup in the ER revealed WBCs 14.8, left shift neutrophils 81.1, potassium 2.5, , CT of abdomen and pelvis showed pancolitis. Patient initially met SIRS criteria and sepsis with elevated white count and elevated heart rate. Patient received fluid resuscitation and electrolyte were replace IV. Consultation with GI was obtained GI BioFire was ordered. Which was negative. During the colonoscope was found that patient has pseudomembranous colitis suspicion for C diff was high for that reason patient was started on fidaxomicin 200 mg b.i.d.. Initially patient received Zosyn because of and colitis which were then discontinued. Consultation with ID specialist were obtained and there recommendations were followed who recommended to continue deficit. Although stool toxins and antigen for C diff was negative the next day we continued the treatment as pseudomembranous colitis is highly better ergonomic for C diff patient did improve with number of stools and her white count decreased with the treatment. Special Educator(s): URSZULA DUNN MD infectious disease GI : GREGORY BELTRAN PATIENT CASE COORDINATOR Procedure(s): colonoscopy : pancolitis Assessment/Plan: discharge diagnosis Sepsis due to pancolitis, POA C diff colitis present on admission Hypokalemia, POA Hypomagnesemia. Chest pain due to GERD, POA Diabetes mellitius type2 Hypertension Discharge Instructions: Vital Signs Date Time Temp Pulse Resp B/P (MAP) Pulse Ox O2 Delivery O2 Flow Rate FiO2 11/09/24 11:30 98.2 80 18 126/75 99 Room Air 21 11/09/24 08:10 0 Laboratory Result(s) Test 11/08/24 19:37 11/09/24 04:27 11/09/24 07:13 Whole Blood Glucose 127 MG/DL (70-110) 110 MG/DL (70-110) White Blood Count 7.5 K/uL (4.8-10.8) Red Blood Count 3.72 MIL/uL (4.00-5.50) Hemoglobin 9.7 g/dL (12.0-16.0) Hematocrit 31.8 % (36-48) Mean Corpuscular Volume 85.5 fL (79-99) Mean Corpuscular Hemoglobin 26.1 pg (27.0-33.0) Mean Corpuscular Hemoglobin Concent 30.5 g/dL (32.0-36.0) Red Cell Distribution Width 19.8 % (11.0-15.5) Platelet Count 304 K/uL (130-400) Mean Platelet Volume 11.4 fL (7.5-10.5) Immature Granulocyte % (Auto) 2.1 % (0-1) Neutrophils (%) (Auto) 50.1 % (40.0-77.0) Lymphocytes (%) (Auto) 35.1 % (21.0-51.0) Monocytes (%) (Auto) 9.2 % (3.0-13.0) Eosinophils (%) (Auto) 2.8 % (0.0-8.0) Basophils (%) (Auto) 0.7 % (0.0-5.0) Neutrophils # (Auto) 3.8 K/uL (1.8-7.7) Lymphocytes # (Auto) 2.6 K/uL (1.0-4.8) Monocytes # (Auto) 0.7 K/uL (0.1-1.0) Eosinophils # (Auto) 0.21 K/uL (0.00-0.70) Basophils # (Auto) 0.05 K/uL (0.00-0.20) Absolute Immature Granulocyte (auto 0.16 K/uL (0-1) Nucleated Red Blood Cells 0.0 % (0.0-0.19) Sodium Level 142 mmol/L (136-145) Potassium Level 3.6 mmol/L (3.5-5.1) Chloride Level 105 mmol/L (101-111) Carbon Dioxide Level 30 mmol/L (21-32) Blood Urea Nitrogen 4 mg/dL (7-18) Creatinine 0.3 mg/dL (0.5-1.0) Glomerular Filtration Rate Calc 121 mL/min (>90) Random Glucose 110 mg/dL (70-105) Total Calcium 8.3 mg/dL (8.5-10.1) Home Medications: Reported Medications Gabapentin (Gabapentin) 100 Mg Capsule, 1 CAP PO TID for 30 Days, #90 CAP 0 Refills 11/06/24 Aspirin (Aspirin) 81 Mg Tab.chew, 1 TAB PO DAILY for 30 Days, #30 TAB 0 Refills 11/06/24 Ferrous Sulfate (Ferrous Sulfate) 324 Mg (65 Mg Iron) Tablet.dr, 1 TAB PO DAILY for 30 Days, #30 TAB 0 Refills 11/06/24 Escitalopram Oxalate (Escitalopram Oxalate) 5 Mg Tablet, 1 TAB PO DAILY for 30 Days, #30 TAB 0 Refills 11/06/24 Atorvastatin Calcium (LIPITOR) 40 Mg Tablet, 1 TAB PO HS for 30 Days, #30 TAB 0 Refills 09/12/24 Discontinued Reported Medications Dapagliflozin Propanediol (Farxiga) 10 Mg Tablet, 10 MG PO DAILY, TAB 09/12/24 Discontinued Scripts Cephalexin (Cephalexin) 500 Mg Tablet, 1 TAB PO BID for 7 Days, #14 TAB 0 Refills Prov:NITA COOK MD 11/02/24 Lidocaine/Prilocaine (Lidocaine-Prilocaine Cream) 2.5 %-2.5 % Kit, 1 GM TP DAILY for 10 Days, #10 GM 0 Refills Prov:NITA COOK MD 11/02/24 Acetaminophen (Tylenol) 500 Mg Tab, 1 TAB PO Q6HPRN PRN for pain or fever for 15 Days, #60 TAB 0 Refills Prov:MICHAEL COOK 09/18/24 Sulfamethoxazole/Trimethoprim (Bactrim 400-80 mg Tablet) 400 Mg-80 Mg Tablet, 1 TAB PO BID for 10 Days, #20 TAB 0 Refills Prov:MICHAEL COOK 09/18/24 Time spent arranging discharge: 31-60 minutes JESSE SOSA MD Nov 09, 2024 12:59
[2024-11-09] MEDS: BALSAM PERU/CASTOR OIL 60 GM TUBE TP SCH (13:53)
[2024-11-09] MEDS: NYSTatin 15 GM POWDER TP SCH (15:14)
--- NOTE | 2024-11-09 16:02 | NUR ---
[facility] Consult: Patient assessed by wound healing team. Patient with no wounds, rash to abdominal fold and buttocks. Assessment and recommendations provided to primary nurse. Education provided. Addendum: 11/10/24 at 1603 by JULIA BUITRAGO RN RN/ Amended: Links added.
--- NOTE | 2024-11-09 16:39 | PN ---
INFECTIOUS DISEASE PROGRESS NOTE Date of Service: Nov 09, 2024 SUBJECTIVE: This is a 59-year-old female patient who was seen and examined at bedside in room 415. Patient is awake, alert oriented x 3. Patient is currently on fidaxomicin for C diff. Patient is being discharged to home today. Prescription for fidaxomicin was written. PHYSICAL EXAM EYES: Anicteric. Pupils equal and reactive. HENT: No oral thrush seen, moist Oral mucosa. NECK: Supple, no JVD or thyromegaly. LUNGS: Good air entry. No rales, no rhonchi. CARDIOVASCULAR: S1, S2 regular. No murmur heard. ABDOMEN: Soft, non tender, bowel sounds present, no organomegaly. CENTRAL NERVOUS SYSTEM: Awake, alert, oriented x 3. SKIN: No rashes, no swelling. LYMPHATICS: No peripheral lymphadenopathy. MUSCULOSKELETAL: No joint swelling, erythema or tenderness. EXTREMITIES: No cyanosis or clubbing. BACK: No deformity, no pressure ulcer. GENITOURINARY: No dysuria or hematuria. Vital Sign (Last 12 Hours) 11/09/24 11/09/24 11/09/24 07:10 08:10 11:30 Temp 97.9 98.2 Pulse 74 80 Resp 18 18 B/P (MAP) 135/77 126/75 Pulse Ox 100 100 99 O2 Delivery Room Air Room Air* Room Air O2 Flow Rate 0 FiO2 21 21 21 Intake & Output (last 24hrs) 11/08/24 11/08/24 11/09/24 15:00 23:00 07:00 Intake Total 1200 ml 240 ml Output Total 800 ml Balance 1200 ml -560 ml LABS: Laboratory: Test 11/09/24 07:13 11/09/24 04:27 11/08/24 08:24 Range/Units Whole Blood Glucose 110 70-110 MG/DL White Blood Count 7.5 4.8-10.8 K/uL Red Blood Count 3.72 L 4.00-5.50 MIL/uL Hemoglobin 9.7 L 12.0-16.0 g/dL Hematocrit 31.8 L 36-48 % Mean Corpuscular Volume 85.5 79-99 fL Mean Corpuscular Hemoglobin 26.1 L 27.0-33.0 pg Mean Corpuscular Hemoglobin Concent 30.5 L 32.0-36.0 g/dL Red Cell Distribution Width 19.8 H 11.0-15.5 % Platelet Count 304 130-400 K/uL Mean Platelet Volume 11.4 H 7.5-10.5 fL Immature Granulocyte % (Auto) 2.1 H 0-1 % Neutrophils (%) (Auto) 50.1 40.0-77.0 % Lymphocytes (%) (Auto) 35.1 21.0-51.0 % Monocytes (%) (Auto) 9.2 3.0-13.0 % Eosinophils (%) (Auto) 2.8 0.0-8.0 % Basophils (%) (Auto) 0.7 0.0-5.0 % Neutrophils # (Auto) 3.8 1.8-7.7 K/uL Lymphocytes # (Auto) 2.6 1.0-4.8 K/uL Monocytes # (Auto) 0.7 0.1-1.0 K/uL Eosinophils # (Auto) 0.21 0.00-0.70 K/uL Basophils # (Auto) 0.05 0.00-0.20 K/uL Absolute Immature Granulocyte (auto 0.16 0-1 K/uL Nucleated Red Blood Cells 0.0 0.0-0.19 % Sodium Level 142 136-145 mmol/L Potassium Level 3.6 3.5-5.1 mmol/L Chloride Level 105 101-111 mmol/L Carbon Dioxide Level 30 21-32 mmol/L Blood Urea Nitrogen 4 L 7-18 mg/dL Creatinine 0.3 L 0.5-1.0 mg/dL Glomerular Filtration Rate Calc 121 >90 mL/min Random Glucose 110 H 70-105 mg/dL Total Calcium 8.3 L 8.5-10.1 mg/dL Phosphorus Level 2.4 L 2.5-4.9 mg/dL Magnesium Level 2.00 1.80-2.40 mg/dL ASSESSMENT: Clostridium difficile colitis. Sepsis. Leukocytosis, resolved. Diabetes mellitus. Anemia. PLAN: Continue fidaxomicin. Prescription for fidaxomicin was written. This case was reviewed and discussed with my supervising physician and the above assessment and plan was formulated and agreed upon. ATTESTATION BY PHYSICIAN I have seen and examined the patient. I reviewed the documentation, medical decision making, and treatment plan as noted by the mid-level provider above. I agree with the findings and plan of care. URSZULA DUNN MD, [facility] Nov 09, 2024 16:39
== END 2024-11-09 15:40 | disposition home or self-care (01) | DRG 872 ==
LOC: EDH 15:24 → EDHIP 18:13 → 4CH 11-06 00:42
PROVIDERS: ADMIT Internal Medicine; ATTEND Internal Medicine
PROC: 0DBG8ZX Excision of Left Large Intestine, Via Natural or Artificial Opening Endoscopic, Diagnostic (ICD-10-PCS; principal; 2024-11-06)
PROC: 0DB98ZX Excision of Duodenum, Via Natural or Artificial Opening Endoscopic, Diagnostic (ICD-10-PCS; 2024-11-06)
PROC: 0DB68ZX Excision of Stomach, Via Natural or Artificial Opening Endoscopic, Diagnostic (ICD-10-PCS; 2024-11-06)
DX: A41.9 Sepsis, unspecified organism (principal); A04.72 Enterocolitis due to Clostridium difficile, not specified as recurrent; K92.1 Melena; E87.6 Hypokalemia; E11.9 Type 2 diabetes mellitus without complications; I10 Essential (primary) hypertension; E78.00 Pure hypercholesterolemia, unspecified; K31.89 Other diseases of stomach and duodenum; E83.42 Hypomagnesemia; D64.9 Anemia, unspecified; E86.0 Dehydration; K21.9 Gastro-esophageal reflux disease without esophagitis; K43.9 Ventral hernia without obstruction or gangrene; I25.10 Atherosclerotic heart disease of native coronary artery without angina pectoris; I25.2 Old myocardial infarction; Z79.82 Long term (current) use of aspirin; Z79.899 Other long term (current) drug therapy; Z86.19 Personal history of other infectious and parasitic diseases; Z89.511 Acquired absence of right leg below knee; Z95.1 Presence of aortocoronary bypass graft; Z83.3 Family history of diabetes mellitus
CPT/HCPCS: 36415; 43239; 45380; 71045; 74176; 80048; 80053; 80076; 81001; 82948; 83036; 83605; 83735; 83880; 84100; 84132; 84145; 84484; 85025; 86140; 87040; 87086; 87324; 87507; 93005; 96365; 96366; 96368; 96375; 99291; A4606; G0378; J0696; J1650; J2405; J2543; J3475; J3480; J7030; A4215; A4222; A4223; A4620; A4657

== ENCOUNTER 2024-12-20 12:42 | Inpatient (IN) | payer BC ==
[~2024-12-20] VITALS: Ht 152.4 cm; Wt 45.7 kg
[~2024-12-20 12:42] MED LIST changes: -ACET-66 PO; +ASPI-1197 PO; +BALS60OI TP; -CEPH500T PO; -DAPA10TA PO; +ESCI5TAB16 PO; +FERR324T4 PO; +FIDA200T PO; +GABA-529 PO; -LIDO5CRE2 TP; +PANT40TA55 PO; +SACC250C3 PO; -SULF1TAB41 PO
--- NOTE | 2024-12-20 12:57 | ERN ---
ED Note History of Present Illness Stated Complaint: CHEST PAIN Time Seen by MD: 12:43 Dictation: PATIENT IS A 59-YEAR-OLD DIABETIC FEMALE HERE WITH COMPLAINTS OF LEFT ANTERIOR CHEST PAIN THAT DOES NOT RADIATE ONSET WAS YESTERDAY WHILE SHE WAS AT REST. SHE STATES SHE WAS HOME WHEN IT STARTED SHE DID NOT HAVE ANY NAUSEA VOMITING AND NOTHING HAS BEEN DONE THAT PROVOKES THE PAIN. DOES STATE SHE TAKES 281 MG ASPIRINS DAILY AND TOOK IT THIS MORNING. PATIENT STATES SHE HAS A HISTORY OF CAD/HYPERTENSION/DIABETES AND HAS HAD TWO PRIOR HEART STENTS BY DR. LINDY JIMÉNEZ. SHE STATES SHE WAS TOO SCARED TO COME TO THE HOSPITAL. IN ADDITION SHE STATES SHE HAS NOT BEEN TAKING HER MEDICATIONS DIRECTED BECAUSE THEY HAVE NOT HAD ENOUGH MONEY TO BUY HIM. Allergies: Coded Allergies: No Known Drug Allergies (Unverified Allergy, Unknown, 09/06/18) Home Meds Active Scripts Saccharomyces Boulardii (Florastor) 250 Mg Capsule, 1 CAP PO BID for loose stool for 10 Days, #20 CAP 0 Refills Prov:JESSE SOSA MD 11/09/24 Pantoprazole Sodium (Protonix) 40 Mg Ectab, 1 TAB PO DAILY for 30 Days, #30 TAB 0 Refills Prov:JESSE SOSA MD 11/09/24 Fidaxomicin (Dificid) 200 Mg Tablet, 200 MG PO Q12H, #20 TAB 0 Refills Prov:JESSE SOSA MD 11/09/24 Balsam Sb/Cornish Oil (Venelex Ointment) 60 Gm Oint...g., 1 GM TP TID, #30 GM 0 Refills apply tid Prov:JESSE SOSA MD 11/09/24 Reported Medications Gabapentin (Gabapentin) 100 Mg Capsule, 1 CAP PO TID for 30 Days, #90 CAP 0 Refills 11/06/24 Aspirin (Aspirin) 81 Mg Tab.chew, 1 TAB PO DAILY for 30 Days, #30 TAB 0 Refills 11/06/24 Ferrous Sulfate (Ferrous Sulfate) 324 Mg (65 Mg Iron) Tablet.dr, 1 TAB PO DAILY for 30 Days, #30 TAB 0 Refills 11/06/24 Escitalopram Oxalate (Escitalopram Oxalate) 5 Mg Tablet, 1 TAB PO DAILY for 30 Days, #30 TAB 0 Refills 11/06/24 Atorvastatin Calcium (LIPITOR) 40 Mg Tablet, 1 TAB PO HS for 30 Days, #30 TAB 0 Refills 09/12/24 Past Medical History Past Medical History: Diabetes-Type II, High Cholesterol, Heart Disease, Hypertension, [place] Surgical History: CABG Surgical History Other: RT BKA History: Not Applicable RN Note Reviewed/Agreed w/PFSH: Yes Review of System Dictation CONSTITUTIONAL: NEGATIVE EXCEPT FOR HPI HEAD/FACE: NEGATIVE EXCEPT FOR HPI EENT: NEGATIVE EXCEPT FOR HPI RESPIRATORY: NEGATIVE EXCEPT FOR HPI LEFT ANTERIOR CHEST PAIN GASTROINTESTINAL/ABDOMINAL: NEGATIVE EXCEPT FOR HPI GENITOURINARY: NEGATIVE EXCEPT FOR HPI MUSCULOSKELETAL: NEGATIVE EXCEPT FOR HPI INTEGUMENTARY: NEGATIVE EXCEPT FOR HPI NEUROLOGICAL/PSYCH: NEGATIVE EXCEPT FOR HPI HEMATOLOGIC/LYMPHATIC: NEGATIVE EXCEPT FOR HPI ALL SYSTEMS NEGATIVE, EXCEPT NOTED ABOVE. 13 POINT REVIEW OF SYSTEMS ASSESSED AND ALL NEGATIVE EXCEPT FOR ABOVE. Initial Vital Sign VS Vital Signs Date Time Temp Pulse Resp B/P (MAP) Pulse Ox O2 Delivery O2 Flow Rate FiO2 12/20/24 12:59 97.5 64 18 140/72 100 Room Air 0 12/20/24 13:20 21 Physical Exam Dictation VITAL SIGNS REVIEWED GENERAL APPEARANCE: ALERT, ORIENTED X 3, NO ACUTE DISTRESS, WELL DEVELOPED, NOURISHED. ANXIOUS/TEARFUL WITH THE EXAM HEAD AND FACE: NON-TRAUMATIC. EYES: PERRL, PINK CONJUNCTIVAS, EYELID NO TRAUMA, ANTERIOR CHAMBER WITH ARCUS SENILIS. EARS: PINNAS INTACT AND NO SIGNS OF TRAUMA OR ERYTHEMA EAR CANALS CLEAR AND NO DISCHARGE TM NO ERYTHEMA NOSE: NO DISCHARGE, NO BLEEDING. OROPHARYNX: MOUTH NORMAL, TONGUE PINK, PHARYNX CLEAR,NO ERYTHEMA, TONSILS NO EXUDATES, NO ABSCESSES NOTED, MUCOUS MEMBRANE MOIST NECK: SUPPLE, NON-TENDER, NO THYROMEGALY, NO MASSES, NO JVD, NO BRUITS BREAST:DEFERRED CHEST:NO TENDERNESS, NO CREPITUS, NO PARADOXICAL MOVEMENT, NO RETRACTIONS LUNGS:CLEAR, WELL-VENTILATED, SYMMETRIC, NO RALES, NO WHEEZING, NO RHONCHI, NO STRIDOR, GOOD BREATH SOUNDS BILATERALLY HEART: REGULAR RATE, REGULAR RHYTHM, NO MURMUR, NO GALLOPS VASCULAR: NO PERIPHERAL EDEMA, ABDOMEN: SOFT, POSITIVE BOWEL SOUNDS, NONDISTENDED, NO GUARDING, NONTENDER, NO REBOUND, NO MASSES NO HEPATOMEGALY, NO SPLENOMEGALY, NO TAY'S SIGN, NO HERNIAS. RECTAL: DEFERRED GENITAL: DEFERRED NEUROLOGICAL: NORMAL SPEECH, MOTOR FUNCTION INTACT, SENSORY FUNCTION INTACT MUSCULOSKELETAL: NECK NONTENDER, FULL RANGE OF MOTION, BACK NONTENDER, FULL RANGE OF MOTION, EXTREMITIES: NONTENDER, FULL RANGE OF MOTION SKIN: COLOR PINK, DRY, NO TURGOR, NO RASH, NO LACERATIONS, NO ABRASIONS, NO CONTUSIONS. LYMPHATIC: DEFERRED Results (Laboratory/Radiology) Laboratory/Radiology Laboratory Tests Test 12/20/24 13:40 12/20/24 15:49 12/20/24 16:34 12/20/24 18:04 White Blood Count 6.0 K/uL (4.8-10.8) Red Blood Count 4.13 MIL/uL (4.00-5.50) Hemoglobin 11.6 g/dL (12.0-16.0) L Hematocrit 37.4 % (36-48) Mean Corpuscular Volume 90.6 fL (79-99) Mean Corpuscular Hemoglobin 28.1 pg (27.0-33.0) Mean Corpuscular Hemoglobin Concent 31.0 g/dL (32.0-36.0) L Red Cell Distribution Width 18.9 % (11.0-15.5) H Platelet Count 286 K/uL (130-400) Mean Platelet Volume 10.7 fL (7.5-10.5) H Immature Granulocyte % (Auto) 0.3 % (0-1) Neutrophils (%) (Auto) 55.1 % (40.0-77.0) Lymphocytes (%) (Auto) 37.3 % (21.0-51.0) Monocytes (%) (Auto) 5.5 % (3.0-13.0) Eosinophils (%) (Auto) 1.3 % (0.0-8.0) Basophils (%) (Auto) 0.5 % (0.0-5.0) Neutrophils # (Auto) 3.3 K/uL (1.8-7.7) Lymphocytes # (Auto) 2.2 K/uL (1.0-4.8) Monocytes # (Auto) 0.3 K/uL (0.1-1.0) Eosinophils # (Auto) 0.08 K/uL (0.00-0.70) Basophils # (Auto) 0.03 K/uL (0.00-0.20) Absolute Immature Granulocyte (auto 0.02 K/uL (0-1) Nucleated Red Blood Cells 0.0 % (0.0-0.19) Red Blood Cell Morphology See comments Sodium Level 138 mmol/L (136-145) Potassium Level 4.0 mmol/L (3.5-5.1) Chloride Level 104 mmol/L (101-111) Carbon Dioxide Level 30 mmol/L (21-32) Blood Urea Nitrogen 13 mg/dL (7-18) Creatinine 0.5 mg/dL (0.5-1.0) Glomerular Filtration Rate Calc 107 mL/min (>90) Random Glucose 150 mg/dL (70-105) H Total Calcium 9.4 mg/dL (8.5-10.1) Magnesium Level 2.00 mg/dL (1.80-2.40) Troponin I High Sensitivity 11 ng/L (4-50) 1933 ng/L (4-50) *H 3964 ng/L (4-50) *H B-Type Natriuretic Peptide 137 pg/mL (0-100) H Prothrombin Time 10.9 SEC (9.6-11.6) Prothromb Time International Ratio 1.03 (0.85-1.15) Activated Partial Thromboplast Time 27.4 SEC (26.3-35.5) Hemoglobin A1c 7.0 % (4.0-6.0) H Estimated Average Glucose (eAG) 154 mg/dL (70-126) H Test 12/20/24 18:20 Stool Occult Blood NEGATIVE (NEGATIVE) Labs Reviewed?: Yes EKG Comment: EKG SINUS RHYTHM/HEART RATE 65/LEFT ATRIAL ENLARGEMENT T-WAVE INVERSION V5 NONSPECIFIC CHANGES 1550/2ND EKG SINUS RHYTHM/HEART RATE 61/AXIS NORMAL/T-WAVE INVERSION REMAINS IN LEAD FIVE. NO ACUTE CHANGES FROM INITIAL EKG. Repeat troponin 1933, heart score is seven We will initiate heparin drip and admit patient to hospital. ED Course ED Course Orders Procedure Category Date Status Time Cbc With Differential LAB 12/20/24 Complete 12:53 B-Type Natriuretic LAB 12/20/24 Complete Peptide 12:53 Chest 1vw RAD 12/20/24 Resulted 12:53 12 Lead Ekg Tracing- EKG 12/20/24 Complete Technical 12:53 Nitroglycerin 0.4mg PHA 12/20/24 In Process Sl Tab (Nitrostat) 13:00 Magnesium LAB 12/20/24 Complete 12:53 Troponin I High LAB 12/20/24 Complete Sensitivity 12:53 Basic Metabolic Panel LAB 12/20/24 Complete 12:53 Saline Lock Iv CPOE 12/20/24 Transmitted 12:53 Morphine 2mg Syg PHA 12/20/24 Complete (Morphine 2mg Syg) 13:00 Ondansetron 4mg Inj PHA 12/20/24 Complete (Zofran 4mg Inj) 13:00 Oxygen By Nc/Pulse Ox CPOE 12/20/24 Transmitted 12:53 Troponin I High LAB 12/20/24 Complete Sensitivity 15:41 12 Lead Ekg Tracing- EKG 12/20/24 Complete Technical 15:41 Heparin 5,000 Unit PHA 12/20/24 Complete Vial (Heparin 5,000 U 16:30 Heparin 25,000 PHA 12/20/24 In Process Units/250ml D5w 16:30 Pt And Ptt LAB 12/20/24 Complete 16:27 Pt And Ptt LAB 12/20/24 Logged 20:30 Admit Orders ADM 12/20/24 Transmitted 17:33 Edm Admit Bridge Order ADM 12/20/24 Transmitted 17:33 Admit Orders ADM 12/20/24 Transmitted 17:41 Daily Weights CPOE 12/20/24 Transmitted 17:41 Echo 2-D Complete ECHO 12/20/24 Taken 17:41 Intake And Output CPOE 12/20/24 Transmitted Every 1 Hour 17:41 Troponin I High LAB 12/20/24 Complete Sensitivity 17:41 Troponin I High LAB 12/21/24 Verified Sensitivity 04:00 12 Lead Ekg Tracing- EKG 12/21/24 Logged Technical 06:00 Cardiology Consult CONPHYSVC 12/20/24 Transmitted 17:41 Hemoglobin A1c LAB 12/20/24 Complete 17:41 Saline Lock Iv CPOE 12/20/24 Transmitted 17:41 *Nursing CPOE 12/20/24 Transmitted Communication: 17:41 Occult Blood Stool LAB 12/20/24 Complete Single Only 17:41 Famotidine 20mg Vial PHA 12/20/24 In Process (Pepcid 20mg Vial) 21:00 Initiate CHRISTEL 12/20/24 In Process Hyperglycemia Protoco 17:41 Insulin Regular, PHA 12/20/24 In Process Human 3ml (Humulin R 21:00 Clopidogrel 300mg Tab PHA 12/20/24 Complete (Plavix 300mg Tab) 18:30 Ticagrelor (Brilinta) PHA 12/20/24 Complete 18:30 Ticagrelor (Brilinta) PHA 12/21/24 In Process 09:00 Aspirin 81mg Ec Tab PHA 12/21/24 In Process (Aspirin 81mg Ec Tab 09:00 Metoprolol Succinate PHA 12/20/24 In Process (Toprol Xl) 19:00 Isosorbide [place] 30mg PHA 12/21/24 In Process Sr Tab (Imdur 30mg 09:00 Atorvastatin 40mg PHA 12/20/24 In Process (Lipitor 40mg) 21:00 Current Medications Medications (Trade) Dose Ordered Sig/Toby Route PRN Reason Start Time Stop Time Status Last Admin Dose Admin Heparin Sodium (Porcine) (HEParin 5,000 UNIT VIAL) 3,000 unit ONCE ONCE IV 12/20/24 16:30 12/20/24 16:31 DC 12/20/24 16:37 Heparin Sodium/ Dextrose 250 ml @ 0 mls/hr PROTOCOL IV 12/20/24 16:30 01/19/25 16:29 12/20/24 16:44 Morphine Sulfate (morPHINE 2MG SYG) 2 mg ONCE ONCE IVP 12/20/24 13:00 12/20/24 13:01 DC 12/20/24 13:32 Nitroglycerin (Nitrostat) 0.4 mg Q5M PRN SL CHEST PAIN 12/20/24 13:00 12/20/24 13:32 Ondansetron HCl (zoFRAN 4MG INJ) 4 mg ONCE ONCE IVP 12/20/24 13:00 12/20/24 13:01 DC 12/20/24 13:32 Vital Signs Date Time Temp Pulse Resp B/P (MAP) Pulse Ox O2 Delivery O2 Flow Rate FiO2 12/20/24 18:36 98.1 54 16 105/64 100 Room Air* 0 21 12/20/24 17:20 60 16 117/67 100 Room Air* 0 12/20/24 15:02 98.1 56 16 111/59 100 Room Air* 0 21 12/20/24 13:20 98.1 60 16 116/71 98 Room Air* 0 21 12/20/24 12:59 97.5 64 18 140/72 100 Room Air 0 1545/spoke with patient at length regarding initial findings on cardiac workup. She is aware that everything is negative and I advised her I would like to place her in the hospital for high-risk chest pain. She refused to stay said she would be willing to see if another EKG and troponin would be positive however she does not want to be admitted if it is negative.1730/ Spoke with Dr. Barrett, reviewed chest x-ray EKGs x2 with troponins x2. He is aware the patient has had nitro/oxygen/morphine/nitro and is now on heparin. He agreed to admit patient. HEART Score Response (Comments) Value EKG: Repolarization changes 1 Risk Factors: 3+ risk factors (+2) 2 Initial Troponin: Normal limit (0) 0 Total 3 Medical Decision Making MDM MDM: Differential diagnosis: ACS/AMI/electrolyte imbalance/dehydration/pneumonia/bronchitis Rationale: Tests considered and ordered secondary to shared decision making include: labs, ECG and radiology Previous outside records reviewed: Old ER visits. Reviewed Risk of complication and/or morbidity or mortality of patient management: Moderate Medications-Per medication reconciliation Need for hospitalization: Patient does meet criteria for hospitalization. Patient will need Cardiology consultation Need for emergency major/minor surgery: No There are no social concerns with this patient. Prescription drug management Prescriptions will include symptomatic care Patient's prior external medical records from other ER visits were reviewed by me as indicated. Prior testing and results from previous visits were reviewed. Prior tests were taken into account with medical decision making and resource utilization, independent historian/historians were used to obtain complete medical history. I independently interpreted the test that were performed, results were reviewed by me and considered findings on radiology if ordered. Medical management and examination interpretation discussions were had by me with other qualified healthcare professionals as indicated for the patient's care. DX & DISP Disposition: Inpatient Decision to Admit Time: 16:29 Departure Impression: Primary Impression: Non-STEMI (non-ST elevated myocardial infarction) Additional Impressions: Hyperglycemia, Elevated brain natriuretic peptide (BNP) level Condition: Stable Referrals: CATHIE DUNBAR DO (PCP) Time of Disposition: 16:30 I have reviewed the case, and I agree with, Diagnosis and Plan I performed the substantive portion of the visit. I have reviewed and personally made and approve the management plan that is documented in the notes by myself or the CALVIN. I acknowledge full responsibility for the patient's man agement plan. GABRIELE HARRIS NP Dec 20, 2024 12:57 ANIKA WHITE MD Dec 20, 2024 19:30
[2024-12-20] MEDS: morPHINE 2 MG SYG IVP ONE (13:32)
[2024-12-20] MEDS: NITROGLYCERIN 0.4 MG SL TAB SL PRN (13:32)
[2024-12-20] MEDS: ondanSETRON 4MG INJ IVP ONE (13:32)
--- NOTE | 2024-12-20 13:39 | HMCIMG ---
Exam Type: CHEST 1VW Clinical Information: CHEST PAIN/SOB Comparison: None Findings: The lungs are clear of infiltrates. The heart is normal in size. The bony and soft tissue structures of the chest are unremarkable. Impression: Clear lungs.
[2024-12-20 13:47] LABS: BASOPHILS # (AUTO) 0.03 K/uL (0.00-0.20); BASOPHILS % (AUTO) 0.5 % (0.0-5.0); EOSINOPHILS # (AUTO) 0.08 K/uL (0.00-0.70); EOSINOPHILS % (AUTO) 1.3 % (0.0-8.0); HEMATOCRIT 37.4 % (36-48); IMMATURE GRANULOCYTE ABSOLUTE 0.02 K/uL (0-1); LYMPHOCYTES # (AUTO) 2.2 K/uL (1.0-4.8); LYMPHOCYTES % (AUTO) 37.3 % (21.0-51.0); MEAN CORPUSCULAR HEMOGLOBIN 28.1 pg (27.0-33.0); MEAN CORPUSCULAR VOLUME 90.6 fL (79-99); MONOCYTES # (AUTO) 0.3 K/uL (0.1-1.0); MONOCYTES % (AUTO) 5.5 % (3.0-13.0); NEUTROPHILS # (AUTO) 3.3 K/uL (1.8-7.7); NEUTROPHILS % (AUTO) 55.1 % (40.0-77.0); PLATELET COUNT (AUTO) 286 K/uL (130-400); RED BLOOD CELL COUNT(AUTO) 4.13 MIL/uL (4.00-5.50); RED CELL DISTRIBUTION WIDTH 18.9 % (11.0-15.5)
[2024-12-20 13:55] LABS: CREATININE 0.5 mg/dL (0.5-1.0)
[2024-12-20 14:31] LABS: B-TYPE NATRIURETIC PEPTIDE 137 pg/mL (0-100)
--- NOTE | 2024-12-20 16:07 | EKG ---
[facility] Test Date: 2024-12-20 Test Time: 15:50:13 Pat Name: SHAHZAD PAGE Department: ED Room: 227 Gender: F Healthcare Specialist: [id number] : 1965 Requested By: GABRIELE HARRIS Order Number: [id number] Reading MD: Shy Sotelo Measurements Intervals [place] Rate: 61 P: 55 [place]: 146 QRS: 78 QRSD: 87 T: 123 QT: 444 QTc: 449 Interpretive Statements Sinus rhythm Anteroseptal infarct, age indeterminate Abnormal T, consider ischemia, lateral leads Compared to ECG 12/20/2024 12:47:24 No significant changes Electronically Signed On 12-21-2024 12:27:47 CDT by Shy Sotelo Please click the below link to view image of tracing.
--- NOTE | 2024-12-20 16:07 | EKG ---
[facility] Test Date: 2024-12-20 Test Time: 12:47:24 Pat Name: SHAHZAD PAGE Department: [facility] Room: 227 Gender: F Bill Cutter: [id number] : 1965 Requested By: GABRIELE HARRIS Order Number: [id number] Reading MD: Shy Sotelo Measurements Intervals [place] Rate: 65 P: 62 VA: 147 QRS: 0 QRSD: 93 T: 0 QT: 422 QTc: 440 Interpretive Statements Sinus rhythm Probable left atrial enlargement Anteroseptal infarct, age indeterminate Abnormal T, consider ischemia, lateral leads Compared to ECG 11/04/2024 15:08:49 T-wave abnormality now present Possible ischemia now present Sinus tachycardia no longer present Prolonged QT interval no longer present Myocardial infarct finding still present Electronically Signed On 12-21-2024 12:28:02 CDT by Shy Sotelo Please click the below link to view image of tracing.
[2024-12-20] MEDS: HEParin 5,000 UNIT VIAL IV ONE (16:37)
[2024-12-20] MEDS: HEParin 25,000 UNITS/250ML D5W 250 ML IV SCH (16:44)
[2024-12-20 17:05] LABS: INR 1.03 (0.85-1.15); PROTHROMBIN TIME 10.9 SEC (9.6-11.6)
[2024-12-20 17:07] LABS: PARTIAL THROMBOPLASTIN TIME 27.4 SEC (26.3-35.5)
[2024-12-20] MEDS: cloPIDOgrel 300MG TAB PO ONE (18:24)
--- NOTE | 2024-12-20 18:26 | NUR ---
MD NYLA AT BEDSIDE
[2024-12-20] MEDS: TICAGrelor 90 MG TABLET PO ONE (18:33)
--- NOTE | 2024-12-20 18:53 | CONS ---
Cardiology Consult Note Cardiology Attending: Niall Ennis Consulting Physician: ED physician Date of Service: 12/20/24 Reason for Consult: Chest Pain HPI: This is a 59yo F with a PMH of ACS-STEMI s/p PCI with VIANEY placement ([place] [employer] Synergy 3.0 x 20 mm) in the proximal LAD, VIANEY placement ([place] [employer] synergy 3.5 x 16 mm) in the proximal LCX, VIANEY placement ([place] [employer] Synergy 3.0 x 12 mm) in the mid LCX, and VIANEY placement ([place] [employer] Synergy 2.75 x 24 mm) in the distal LCX done on 07/17/2024, residual 1V CAD (70% stenosis in the distal RCA), intra procedural VT, cardiogenic shock requiring Impella placement, right lower extremity ischemia/infarction secondary to Impella placement resulting in right sided BKA, ischemic cardiomyopathy, chronic systolic congestive heart failure (improved LVEF of 40-45% by echocardiogram done on 07/28/2024), HLP, DM2, medication noncompliance who presents with chest pain, that began this morning, at approximately 9:00 a.m.. The symptoms began shortly after the patient awoke from sleep and were described as pressure-like in quality, 10/10 intensity, radiation to the back. The symptoms lasted approximately 3 hours and resolved after she was administered nitroglycerin. Associated symptoms included diaphoresis. Pertinent negatives include headache, dizziness, syncope, palpitations, shortness for breath, PND, orthopnea, abdominal pain, weight gain, or lower extremity swelling/edema. The persistence of symptoms prompted the patient to come to the hospital where she was subsequently diagnosed with ACS NSTEMI. Of note is that the patient has failed to follow up with Dr. Jefry Carrasco who performed the above-mentioned PCI. Additionally the patient ran out of medications and has only been on aspirin for the last month. PMH: Listed above PSH: Right BKA FH: Significant for CAD, HTN, DMII, and CVA. SH: Denies alcohol, tobacco, or illicit drug use. Home medications: Aspirin 81 mg daily Allergies: Coded Allergies: No Known Drug Allergies (Unverified Allergy, Unknown, 09/06/18) Review of systems: General: Denies fever or chills HEENT: Denies changes in vision, earache or sore throat Neck: Denies pain or stiffness Cardio: As per the HPI Pulm: As per the HPI. GI: Denies abdominal pain, nausea, vomiting, diarrhea, or constipation. MSK: Denies muscle or back pain. Heme: Denies anemia, easy bruising, or bleeding. Neuro: Denies headache, dizziness, or syncope. Psych: Denies anxiety, depression, or suicide ideations. Physical Exam: Vital Signs Date Time Temp Pulse Resp B/P (MAP) Pulse Ox O2 Delivery O2 Flow Rate FiO2 12/20/24 17:20 60 16 117/67 100 Room Air* 0 21 12/20/24 15:02 98.1 General: Alert and oriented x 3. NAD HEENT: NC/AT. Oral mucosa is moist. Neck: No masses, JVD, or carotid bruits Lungs: NRD. SCM. B/L CTA. No wheezing, rales or rhonchi. Cardio: Rate @ 60bpm. Normal S1 and S2. +S4. PMI was not displaced. Abdomen: Soft. NT. ND. Normal active bowel sounds x 4 quadrants. Extremities: Right BKA noted. +2 pulses noted in the left lower extremity. Neuro: CN II-XII were grossly intact. No focal deficits. Labs: Laboratory Tests Test 12/20/24 13:40 12/20/24 15:49 12/20/24 16:34 Range/Units White Blood Count 6.0 4.8-10.8 K/uL Red Blood Count 4.13 4.00-5.50 MIL/uL Hemoglobin 11.6 L 12.0-16.0 g/dL Hematocrit 37.4 36-48 % Mean Corpuscular Volume 90.6 79-99 fL Mean Corpuscular Hemoglobin 28.1 27.0-33.0 pg Mean Corpuscular Hemoglobin Concent 31.0 L 32.0-36.0 g/dL Red Cell Distribution Width 18.9 H 11.0-15.5 % Platelet Count 286 130-400 K/uL Mean Platelet Volume 10.7 H 7.5-10.5 fL Immature Granulocyte % (Auto) 0.3 0-1 % Neutrophils (%) (Auto) 55.1 40.0-77.0 % Lymphocytes (%) (Auto) 37.3 21.0-51.0 % Monocytes (%) (Auto) 5.5 3.0-13.0 % Eosinophils (%) (Auto) 1.3 0.0-8.0 % Basophils (%) (Auto) 0.5 0.0-5.0 % Neutrophils # (Auto) 3.3 1.8-7.7 K/uL Lymphocytes # (Auto) 2.2 1.0-4.8 K/uL Monocytes # (Auto) 0.3 0.1-1.0 K/uL Eosinophils # (Auto) 0.08 0.00-0.70 K/uL Basophils # (Auto) 0.03 0.00-0.20 K/uL Absolute Immature Granulocyte (auto 0.02 0-1 K/uL Nucleated Red Blood Cells 0.0 0.0-0.19 % Red Blood Cell Morphology See comments Sodium Level 138 136-145 mmol/L Potassium Level 4.0 3.5-5.1 mmol/L Chloride Level 104 101-111 mmol/L Carbon Dioxide Level 30 21-32 mmol/L Blood Urea Nitrogen 13 7-18 mg/dL Creatinine 0.5 0.5-1.0 mg/dL Glomerular Filtration Rate Calc 107 >90 mL/min Random Glucose 150 H 70-105 mg/dL Total Calcium 9.4 8.5-10.1 mg/dL Magnesium Level 2.00 1.80-2.40 mg/dL Troponin I High Sensitivity 11 3 *H 4-50 ng/L B-Type Natriuretic Peptide 137 H 0-100 pg/mL Prothrombin Time 10.9 9.6-11.6 SEC Prothromb Time International Ratio 1.03 0.85-1.15 Activated Partial Thromboplast Time 27.4 26.3-35.5 SEC ECG 12/20/2024 (12:50pm): Sinus rhythm. No ST elevation identified. Q-waves seen in V1 and V2. T-wave inversion seen in lead one. Heart rate 65 beats per minute ECG 12/20/2024 (3:50pm): Sinus rhythm. No ST elevation identified. Q-waves seen in V1 and V2. T-wave inversion seen in V5, V6, AVL and lead one. Assessment: 1. ACS-NSTEMI 2. Hx of ACS-STEMI s/p PCI with VIANYE placement ([place] [employer] Synergy 3.0 x 20 mm) in the proximal LAD, VIANEY placement ([place] [employer] synergy 3.5 x 16 mm) in the proximal LCX, VIANEY placement ([place] [employer] Synergy 3.0 x 12 mm) in the mid LCX, and VIANEY placement ([place] [employer] Synergy 2.75 x 24 mm) in the distal LCX done on 07/17/2024, residual 1V CAD (70% stenosis in the distal RCA) 3. Hx of Intra procedural VT 4. Hx of cardiogenic shock requiring Impella placement 5. Right lower extremity ischemia/infarction secondary to Impella placement resulting in right sided BKA 6. Ischemic cardiomyopathy 7. Chronic systolic congestive heart failure (improved LVEF of 40-45% by echocardiogram done on 07/28/2024) 8. HLP 9. DM2 10. Medication noncompliance Plan: 1. ACS-NSTEMI -Stable -ECG 12/20/2024 (12:50pm): Sinus rhythm. No ST elevation identified. Q-waves seen in V1 and V2. T-wave inversion seen in lead one. Heart rate 65 beats per minute -ECG 12/20/2024 (3:50pm): Sinus rhythm. No ST elevation identified. Q-waves seen in V1 and V2. T-wave inversion seen in V5, V6, AVL and lead one. -laboratory data: High sensitivity troponin I - 11 > 1933 -The patient presents with chest pain, that began this morning after the patient awoke from sleep. The pain was described as pressure-like in quality, 10/10 intensity, with radiation to the back. The symptoms were not exacerbated by anything, lasted approximately 3 hours, resolved with nitroglycerin. Associated symptoms include diaphoresis. The patient subsequently presented to [facility] where she was diagnosed with ACS NSTEMI. In order to address this issue we recommend instituting ACS goal-directed medical therapy which includes heparin IV drip (as per ACS protocol), ticagrelor 180 mg x 1 dose then 90 mg BID, aspirin 81 mg daily, atorvastatin 40 mg q.h.s., metoprolol succinate 12.5 mg daily, isosorbide mononitrate ER 30 mg daily and nitroglycerin 0.4mg sl prn breakthrough chest pain. -please be the patient dinner and then make her NPO after midnight. We will tentatively schedule her for an [facility]/coronary angiogram to be done tomorrow. 2. Chronic systolic congestive heart failure (improved LVEF of 40-45% by echocardiogram done on 07/28/2024) -stable -PE: The lungs are bilaterally clear to auscultation. No edema seen in the left lower extremity. -laboratory data: BNP 137 -the above-mentioned findings indicate clinical stability and a near euvolemic state. In order to address this issue recommend starting the patient on metoprolol succinate 12.5 mg daily. We will refrain from starting the patient on Pilo/Arb or ARNI because of borderline low blood pressures Thank you for this interesting consult and allowing us to participate in the care of your patient. Further recommendations to follow. NIALL ENNIS MD Dec 20, 2024 18:53
[2024-12-20] MEDS: metOPROLol sucCINATE 25 MG TAB.SR.24H PO SCH (19:24)
[2024-12-20 20:00] VITALS: BP 111/72; PULSE 57; RESP 18; TEMP 98.3
[2024-12-20] MEDS: INSULIN humuLIN R 100 UNIT/ML 3ML SQ SCH (20:31)
[2024-12-20] MEDS: atorVAStatin 40 MG TABLET PO SCH (20:31)
[2024-12-20] MEDS: FAMOTIDINE 20MG VIAL IV SCH (20:31)
[2024-12-20 21:12] LABS: INR 1.04 (0.85-1.15)
[2024-12-20 21:14] LABS: PARTIAL THROMBOPLASTIN TIME 73.2 SEC (26.3-35.5)
[2024-12-20] MEDS ORDERED: ESCI5TAB16 PO (21:17)
[2024-12-20] MEDS ORDERED: ONDA-104 PO (21:17)
[2024-12-20] MEDS ORDERED: DAPA10TA PO (21:17)
[2024-12-20] MEDS ORDERED: TRAMADOL HCL PO (21:20)
[2024-12-20 21:45] VITALS: BP 137/67; PULSE 61; RESP 20; TEMP 97.6; O2SAT 98
--- NOTE | 2024-12-20 21:45 | NUR ---
pt arrived to room via stretcher. pt transferred self from stretcher to bed with touching assistance. Educated pt in use of call light and to call before getting into wheelchair, verbalized understanding. Left pt semi-taylor, bed low, locked, rails upx2, and with call light in reach with sitter present.
[2024-12-20] MEDS ORDERED: ondanSETRON 4MG TABLET PO PRN (23:00)
[2024-12-21] VITALS (15 sets, daily range): BP systolic 103–141; BP diastolic 57–78; PULSE 51–69; RESP 18–21; TEMP 97.6–98.7; O2SAT 98
[2024-12-21] MEDS ORDERED: carVEDIlol 3.125 MG TABLET PO SCH (09:00)
--- NOTE | 2024-12-21 09:00 | HP ---
[facility] HISTORY AND PHYSICAL Date of Service: Dec 21, 2024 Time of Service: 08:51 HISTORY OF PRESENT ILLNESS: [ ] This is a 59-year-old female with a significant medical history of ACS STEMI status post PCI presents in ED with chief complaints of chest pain. Onset earlier this morning chest pain awaken her. Stated 10/10 on pain scale radiates to her back. Duration about 2-3 hours then resolved she self medicated with nitroglycerin. Associated symptoms diaphoretic she denies palpitation is feeling faint headache shortness for breath abdominal pain or lower extremity swelling or edema. ER workup ACS non-STEMI. Patient is well known to be noncompliance with medication. 12/21/2024. Patient is getting ready for left heart catheterization. We will follow senior product development manager's recommendations. Apparently overnight patient had suicidal intentions requiring one-to-one observation. we will have social scientist reach out to [facility] for screening. REVIEW OF SYSTEMS A14 point ROS obtained all relevant positive was documented otherwise ROS negative PAST MEDICAL HISTORY: [ ] Diabetes type 2, hypertension, IA PAST SURGICAL HISTORY: [ ] Right BKA PAST SOCIAL HISTORY: [ ] Negative for smoking alcohol use drug use. FAMILY HISTORY: [ ] Diabetes, heart disease, hypertension Coded Allergies: No Known Drug Allergies (Unverified Allergy, Unknown, 09/06/18) PHYSICAL EXAM GENERAL APPEARANCE: The patient is awake, alert, and oriented, in no acute cardiopulmonary distress. Requiring one-to-one sitter patient appears calm and relax. NEUROLOGICAL: Cranial nerves II-XII grossly intact. Motor is 5/5 in bilateral upper and lower extremities proximal to distal. No sensory deficits. HEENT: Face is symmetric. Pupils are equal and reactive. Extraocular movements are intact. NECK: Supple. No JVD. No thyromegaly. No submental, submandibular, pre-/post auricular, occipital or supraclavicular lymphadenopathy. CHEST: Normal chest expansion. No Telemetry. LUNGS: Absence of any rales, rhonchi or any wheezing. CARDIOVASCULAR: Regular. S1 and S2 normal. No appreciable rubs, murmurs or gallops. ABDOMEN: Soft, nontender, and nondistended. There is no rebound, voluntary guarding, or rigidity. : Deferred. No [place]. EXTREMITIES: Non-edematous and not cyanotic. No clubbing. Good capillary refill. Right BKA SKIN: No skin breakdown. Vital Sign (Last 24 Hours) 12/20/24 12/21/24 21:45 07:00 Temp 98.8 Pulse 69 Resp 18 B/P (MAP) 141/78 Pulse Ox 98 O2 Delivery Room Air O2 Flow Rate 0 FiO2 21 Intake & Output (last 24hrs) 12/20/24 12/20/24 12/21/24 15:00 23:00 07:00 Intake Total 71.7 ml Output Total 200 ml Balance -128.3 ml LABS: Laboratory: Test 12/21/24 05:29 12/21/24 03:20 12/20/24 20:56 12/20/24 18:20 Range/Units Whole Blood Glucose 117 H 70-110 MG/DL Bedside Glucose Comment Protocol Initiated Activated Partial Thromboplast Time 44.2 #H 26.3-35.5 SEC Troponin I High Sensitivity 2885 *H 4-50 ng/L Prothrombin Time 11.0 9.6-11.6 SEC Prothromb Time International Ratio 1.04 0.85-1.15 Stool Occult Blood NEGATIVE NEGATIVE Test 12/20/24 18:04 12/20/24 13:40 Range/Units Hemoglobin A1c 7.0 H 4.0-6.0 % Estimated Average Glucose (eAG) 154 H 70-126 mg/dL White Blood Count 6.0 4.8-10.8 K/uL Red Blood Count 4.13 4.00-5.50 MIL/uL Hemoglobin 11.6 L 12.0-16.0 g/dL Hematocrit 37.4 36-48 % Mean Corpuscular Volume 90.6 79-99 fL Mean Corpuscular Hemoglobin 28.1 27.0-33.0 pg Mean Corpuscular Hemoglobin Concent 31.0 L 32.0-36.0 g/dL Red Cell Distribution Width 18.9 H 11.0-15.5 % Platelet Count 286 130-400 K/uL Mean Platelet Volume 10.7 H 7.5-10.5 fL Immature Granulocyte % (Auto) 0.3 0-1 % Neutrophils (%) (Auto) 55.1 40.0-77.0 % Lymphocytes (%) (Auto) 37.3 21.0-51.0 % Monocytes (%) (Auto) 5.5 3.0-13.0 % Eosinophils (%) (Auto) 1.3 0.0-8.0 % Basophils (%) (Auto) 0.5 0.0-5.0 % Neutrophils # (Auto) 3.3 1.8-7.7 K/uL Lymphocytes # (Auto) 2.2 1.0-4.8 K/uL Monocytes # (Auto) 0.3 0.1-1.0 K/uL Eosinophils # (Auto) 0.08 0.00-0.70 K/uL Basophils # (Auto) 0.03 0.00-0.20 K/uL Absolute Immature Granulocyte (auto 0.02 0-1 K/uL Nucleated Red Blood Cells 0.0 0.0-0.19 % Red Blood Cell Morphology See comments Sodium Level 138 136-145 mmol/L Potassium Level 4.0 3.5-5.1 mmol/L Chloride Level 104 101-111 mmol/L Carbon Dioxide Level 30 21-32 mmol/L Blood Urea Nitrogen 13 7-18 mg/dL Creatinine 0.5 0.5-1.0 mg/dL Glomerular Filtration Rate Calc 107 >90 mL/min Random Glucose 150 H 70-105 mg/dL Total Calcium 9.4 8.5-10.1 mg/dL Magnesium Level 2.00 1.80-2.40 mg/dL B-Type Natriuretic Peptide 137 H 0-100 pg/mL Current Medications Medications (Trade) Dose Ordered Sig/Toby Route PRN Reason Start Time Stop Time Status Last Admin Dose Admin Aspirin (Aspirin 81mg Ec Tab) 81 mg DAILY PO 12/21/24 09:00 01/20/25 08:59 Atorvastatin Calcium (LIPItor 40MG) 40 mg HS PO 12/20/24 21:00 01/19/25 20:59 12/20/24 20:31 40 MG Carvedilol (Coreg 3.125MG) 3.125 mg BID PO 12/21/24 09:00 12/21/24 07:23 DC Famotidine (Pepcid 20mg Vial) 20 mg BID IV 12/20/24 21:00 01/19/25 20:59 12/20/24 20:31 20 MG Gabapentin (NEURontin 100 mg CAP) 100 mg TID PO 12/21/24 09:00 01/20/25 08:59 Heparin Sodium/ Dextrose 250 ml @ 0 mls/hr PROTOCOL IV 12/20/24 16:30 01/19/25 16:29 12/20/24 16:44 7.87 MLS/HR Insulin Human Regular (humuLIN R 100 UNIT/ML 3ML) INSULIN SLIDING SCAL... ACHS SQ 12/20/24 21:00 01/19/25 20:59 Isosorbide Mononitrate (Imdur 30mg Sr) 30 mg DAILY PO 12/21/24 09:00 01/20/25 08:59 Metoprolol Succinate (TopROL XL) 12.5 mg DAILY PO 12/20/24 19:00 01/19/25 18:59 12/20/24 19:24 12.5 MG Nitroglycerin (Nitrostat) 0.4 mg Q5M PRN SL CHEST PAIN 12/20/24 13:00 12/20/24 13:32 0.4 MG Ondansetron HCl (zoFRAN 4MG TABLET) 4 mg Q6H6 PRN PO nausea/vomiting 12/20/24 23:00 01/19/25 22:59 Pantoprazole Sodium (PROTonix 40MG TAB) 40 mg DAILY PO 12/21/24 09:00 01/20/25 08:59 Ticagrelor (BRILinta) 90 mg BID PO 12/21/24 09:00 01/20/25 08:59 Tramadol HCl (UltRAM) 50 mg Q6H PRN PO MODERATE PAIN (4-6) 12/20/24 23:30 12/25/24 23:29 DIAGNOSTICS / RADIOLOGY: [ ] ASSESSMENT: ACS NSTEMI POA Diabetes type 2 with hyperglycemia, POA acute on Chronic systolic congestive heart failure (improved LVEF of 40-45% by echocardiogram done on 07/28/2024) POA HLP suicidal ideation not POA Severe protein calorie malnutrition muscle atrophy POA Functional decline right BKA PLAN: [ ] Admit: PCCU condition:Guarded Status: Full Code IVF:heplock Consultants cardiology's Test: Echo pending results soft tissue neck noted Procedure left heart catheterization today ACS protocol social scientist: Behavioral screening Labs cbc, cmp, mag+ in a.m. Replace electrolytes as needed as per protocol to keep potassium above 4.0 magnesium 2.0. A.c. HS monitoring with sliding scale coverage. One-to-one sitter Fall precautions PRN: MEDICATIONS Tylenol 650 mg po every 4 hrs for fever zofran 4 mg IV every 6 hrs for n/v Hydralazine 5 mg IV every 4 hrs systolic pressure > 160 bowel regiment: lactulose 20 gm PO BID PRN constipation Pain management: Supportive measures: DVT ppx, GI ppx all questions answered time spent: > 35 min Supervising MD: c/d This document was generated in part using voice recognition software, occasional wrong word or sound alike substitutions may have occurred due to the inherent limitations of voice recognition software. Read the chart carefully and recognize using context, where the substitutions have occurred. Although every effort was made to edit the content, shiatsu therapist and typing errors may occur ATTESTATION BY PHYSICIAN I have seen and examined the patient. I reviewed the documentation, medical decision making, and treatment plan as noted by the mid-level provider above. I agree with the findings and plan of care. MAIKEL DISLA MD, ELIZABETH NP Dec 21, 2024 09:00
[2024-12-21] MEDS: PANTOPrazole 40 MG TAB DR PO SCH (09:51)
[2024-12-21] MEDS: GABApentin 100 MG CAPSULE PO SCH (09:51)
[2024-12-21] MEDS: TICAGrelor 90 MG TABLET PO SCH (09:51)
[2024-12-21] MEDS: ASPIRIN 81 MG EC TAB PO SCH (09:51)
[2024-12-21] MEDS: ISOSORBIDE MONO 30MG SR TAB PO SCH (09:52)
--- NOTE | 2024-12-21 09:53 | EKG ---
[facility] Test Date: 2024-12-21 Test Time: 09:52:54 Pat Name: SHAHZAD PAGE Department: [facility] Room: 227 1 Gender: F B2B Sales Professional: JAIDEN : [id number] Requested By: MARY LEBRON Order Number: [id number] Reading MD: Shy Sotelo Measurements Intervals [place] Rate: 59 P: 145 MT: 140 QRS: 144 QRSD: 90 T: 149 QT: 456 QTc: 451 Interpretive Statements ectopic atrial bradycardia Septal infarct , age undetermined Lateral infarct , age undetermined ST & T wave abnormality, consider anterior ischemia Compared to ECG 12/20/2024 15:50:13 ST (T wave) deviation now present Sinus rhythm no longer present T-wave abnormality no longer present Myocardial infarct finding still present Possible ischemia still present Electronically Signed On 12-21-2024 12:24:59 CDT by Shy Sotelo Please click the below link to view image of tracing.
--- NOTE | 2024-12-21 09:58 | HMCIMG ---
CHEST 1VW HISTORY: Rib pain COMPARISON: 12/20/2024 FINDINGS: A frontal projection of the chest was obtained. No acute pulmonary infiltrates is seen. The heart is borderline enlarged. There is dextroscoliosis. Prominent interstitial markings are seen. No evidence of aortic calcification is seen. IMPRESSION: 1. No acute pulmonary infiltrate is seen.
--- NOTE | 2024-12-21 09:58 | HMCIMG ---
NECK SOFT TISSUE REASON: neck pain with movement. COMPARISON: None TECHNIQUE: Lateral view of the soft tissue neck was obtained. FINDINGS: There are mild degenerative changes of the cervical spine with spondylosis. Airway is patent. No evidence of radiopaque foreign body is seen. IMPRESSION: Mild DJD. No acute finding.
[2024-12-21] MEDS ORDERED: PHARMACY COMMUNICATION 1 EACH EACH MISC SCH (13:30)
[2024-12-21] MEDS ORDERED: IOHEXOL 350 MG/ML 100ML INFUS..BTL IV ONE (15:15)
[2024-12-21] MEDS ORDERED: LIDOCAINE HCL 400MG/20ML VIAL ONE (15:15)
[2024-12-21] MEDS ORDERED: HEParin 10,000 UNIT/10ML (1,000 UNIT/ML) VIAL ONE (15:15)
[2024-12-21] MEDS ORDERED: NITROGLYCERIN 50MG VIAL ONE (15:16)
[2024-12-21] MEDS ORDERED: HEParin-NS 1,000 UNIT/500 ML 1,000 ML IV ONE (15:16)
--- NOTE | 2024-12-21 15:39 | NUR ---
DCP: HOME- IDEATIONS Sw met with pt who lives at home with her and her Autistic son Niall. Pt reports she had a BKA on Sep 14 and has been trying to adjust to her new life. Pt admits it has been hard at times, and she often feels she is a burden to her family. But family is very reassuring to her that she is not and they are helping her because they love her, not pity. Pt is Bipolar and a [employer] [place] pt. Last appt was in Oct and Sw provided pt with contact # to schedule an appt related to her having ideations during this admission. Pt denies current ideations, states he children and grandchildren keep her from acting on these thoughts. Pt feels she could never do this to them. Pt states PCP Yanira Shi manages her depression medication. Pt reports she is independent of bathing dressing and grooming, uses a walker and a w/c. Pt is anxious to be fitted for her prosthesis. No HH or HD services. DCP is home family to transport Addendum: 12/22/24 at 1551 by YUMIKO RUELAS Amended: Links added.
[2024-12-21] MEDS ORDERED: FENTanyl CITRate PF 50 MCG/1 ML 2ML VIAL ONE (15:41)
[2024-12-21] MEDS ORDERED: MIDAZOLAM HCL 1 MG/ML 2ML VIAL ONE (15:41)
[2024-12-21] MEDS ORDERED: ATROPINE 1MG SYG IVP ONE (15:54)
[2024-12-21] MEDS ORDERED: DOPamine HCL 400 MG/D5%-WATER 0 ML IV ONE (15:59)
[2024-12-21] MEDS ORDERED: GLUCAGON 1MG KIT 1 MG ML IM PRN (17:00)
[2024-12-21] MEDS ORDERED: DEXTROSE 50%-WATER 50 ML DISP.SYRIN IV PRN (17:00)
--- NOTE | 2024-12-21 17:19 | PRN ---
PROCEDURE NOTE Indications: 1. ACS-NSTEMI 2. Hx of ACS-STEMI s/p PCI with VIANEY placement ([employer] Synergy 3.0 x 20 mm) in the proximal LAD, VIANEY placement ([employer] synergy 3.5 x 16 mm) in the proximal LCX, VIANEY placement ([employer] Synergy 3.0 x 12 mm) in the mid LCX, and VIANEY placement ([employer] Synergy 2.75 x 24 mm) in the distal LCX done on 07/17/2024, residual 1V CAD (70% stenosis in the distal RCA) 3. Hx of Intra procedural VT 4. Hx of cardiogenic shock requiring Impella placement 5. Right lower extremity ischemia/infarction secondary to Impella placement resulting in right sided BKA 6. Ischemic cardiomyopathy 7. Chronic systolic congestive heart failure (improved LVEF of 40-45% by echocardiogram done on 07/28/2024) 8. HLP 9. DM2 10. Medication noncompliance Procedures: LHC/coronary angiogram, femoral angiogram Introduction: After informed written consent was obtained, the patient was brought to the Catheterization Lab in the usual fasting state. Following sterile prep and drape, a time out was performed, then moderate sedation was administered, 1mg of Versed and 25mcg of Fentanyl, then 1% Lidocaine was infiltrated into the left femoral groin. Using a Modified Seldinger technique, a 6Fr Sheath was inserted into the left common femoral artery. While under fluoroscopic guidance, diagnostic coronary catheters were advanced over a wire into the central circulation where they were aspirated, flushed and placed to pressure monitoring, once the wire was removed. Coronary Angio: The left and right coronary arteries were engaged with appropriate catheters and angiography was performed under continuous pressure monitoring. Left Heart Catheterization: A JR-4 catheter was inserted into the LV and the pressure was recorded, then the catheter was removed from the LV. Cardiac Findings: Co-dominant system LM: Large caliber vessel with mild luminal irregularities. The vessel bifurcates into the LAD and LCX. LAD: Large caliber vessel with 70% stenosis in the ostial LAD. This is a widely patent stent in the proximal LAD. 40% stenosis in the mid LAD. MICAH 3 blood flow distally. Diagonal 1: Small caliber vessel with 99% stenosis in the ostial diagonal 1. MICAH 2 blood flow distally. Diagonal 2: Small caliber vessel with 90% stenosis in the ostial diagonal 2. MICAH 3 blood flow distally. LCx: Large caliber vessel with patent stents in the proximal and distal LCX. MICAH 3 blood flow distally. OM1: Small caliber vessel with 95% stenosis in the ostial OM1. OM2: Small caliber vessel with mild luminal irregularities. RCA: Medium caliber vessel with 30% stenosis in the mid RCA and 80% stenosis in the distal RCA RPDA: Medium caliber vessel with 80% stenosis in the ostial RPDA RPLV: Small caliber vessel with 95% stenosis in the ostial RPLV LVEDP: 7mmHg Medications given: Versed 1mg, Fentanyl 25mcg Coronary Intervention: None Complications: None Conscious Sedation Monitoring: Under my direct order and supervision, medication for moderate conscious sedation was administered by the nursing staff and the patients level of consciousness and physiological status was monitored by an independent trained nurse. Closure of Access Site: After the case completed the sheath was pulled and a 6Fr Angioseal was deployed in the left common femoral artery without complication. Conclusion: 1. ACS-NSTEMI 2. Widely patent stents in the proximal LAD, proximal and distal LCX (placed in the setting of ACS-STEMI on 07/17/2024) 3. Residual CAD, 70% stenosis in the ostial LAD, 99% stenosis in the ostial diagonal 1, 90% stenosis in the proximal diagonal two, 95% stenosis in the ostial OM1, 80% stenosis in the distal RCA, 80% stenosis in the ostial RPDA, 95% stenosis in the ostial RPLV 4. Medication non-compliance 5. Suicidal ideations, currently with one-to-one precautions 6. Right lower extremity ischemia/infarction secondary to Impella placement resulting in right sided BKA 7. Ischemic cardiomyopathy 8. Chronic systolic congestive heart failure (improved LVEF of 40-45% by echocardiogram done on 07/28/2024) 9. HLP Recommendation: 1. Continue goal-directed medical therapy 2. Stop heparin IV drip 3. We do not recommend intervening (PCI with balloon angioplasty and VIANEY placement) in the ostial LAD, because there is concern that the patient will not be compliant with DAPT therapy 4. We do not recommend intervening on the diagonal 1, diagonal 2, or ostial OM1, because we will need to cross the stents that are currently in place, and risk injury to the stent struts (iatrogenic OR) 5. We do not recommend intervening on the distal RCA or proximal RPDA, because there was concern that the patient will not be compliant with DAPT therapy 6. The patient has completed her infarct in his currently asymptomatic. As a result we recommended she continue on aspirin 81 mg daily, prasugrel 10 mg daily (will be started in the a.m.), isosorbide mononitrate ER 30 mg daily, metoprolol succinate 12.5 mg daily and atorvastatin 40 mg q.h.s. these medications are all generic and prior to discharge the patient will be given a prescription with at least five refills for each medication CITLALI REDMOND MD Dec 21, 2024 17:19
[2024-12-21] MEDS: traMADol HCL 50 MG TABLET PO PRN (17:24)
[2024-12-22 03:36] VITALS: BP 102/67; PULSE 72; RESP 20; TEMP 98.5
[2024-12-22 05:28] LABS: HEMATOCRIT 32.8 % (36-48); MEAN CORPUSCULAR HEMOGLOBIN 28.2 pg (27.0-33.0); MEAN CORPUSCULAR HGB CONC 31.7 g/dL (32.0-36.0); MEAN CORPUSCULAR VOLUME 88.9 fL (79-99); RED BLOOD CELL COUNT(AUTO) 3.69 MIL/uL (4.00-5.50); RED CELL DISTRIBUTION WIDTH 18.6 % (11.0-15.5); WHITE BLOOD COUNT (AUTO) 5.9 K/uL (4.8-10.8)
[2024-12-22 05:41] LABS: ALBUMIN 2.8 g/dL (3.5-5.0); BILIRUBIN,TOTAL 0.5 mg/dL (0.2-1.0); CREATININE 0.8 mg/dL (0.5-1.0); POTASSIUM 3.6 mmol/L (3.5-5.1); TOTAL PROTEIN, SERUM 6.3 g/dL (6.0-8.3)
[2024-12-22 08:00] VITALS: BP 115/62; PULSE 64; RESP 17; TEMP 98; O2SAT 100
--- NOTE | 2024-12-22 11:26 | PN ---
[facility] PROGRESS NOTE Date of Service: Dec 22, 2024 Time of Service: 11:12 SUBJECTIVE: [59-year-old female admitted for chest pain, patient was noted with NSTEMI she is status post left heart catheterization done by Dr. Ennis on 12/21/24, patient was noted with widely patent stents in the proximal LAD, proximal and distal LCX placed in the settings of ACS STEMI on 07/17/2024, residual CAD, 70% stenosis in the ostial LAD, 99% stenosis in the ostial diagonal one, 90% stenosis in the proximal diagonal two, 95% stenosis in the ostial OM1, 80% stenosis in the distal RCA, 80% stenosis in the ostial RPDA, 95% stenosis in the ostial RPLV. Patient was started with medication noncompliance. Recommendation to continue mg daily, prasugrel 10 mg daily to be start ed today, isosorbide mononitrate ER 30 mg daily, metoprolol succinate 12.5 mg daily and atorvastatin 40 mg q.h.s.. At this point, patient was evaluated in the room currently on one-to-one supervision. She denies any suicidal ideation at this time. She stated that she had thoughts of suicidal ideation last August of 2024 after her right BKA. Patient admitted for having history of bipolar disorder, not on any medications. Patient denies any chest pain at this time. REVIEW OF SYSTEMS A14 point ROS obtained all relevant positive was documented otherwise ROS negative PHYSICAL EXAM GENERAL APPEARANCE: The patient is awake, alert, and oriented, in no acute cardiopulmonary distress. Requiring one-to-one sitter patient appears calm and relax. NEUROLOGICAL: Cranial nerves II-XII grossly intact. Motor is 5/5 in bilateral upper and lower extremities proximal to distal. No sensory deficits. HEENT: Face is symmetric. Pupils are equal and reactive. Extraocular movements are intact. NECK: Supple. No JVD. No thyromegaly. No submental, submandibular, pre- /postauricular, occipital or supraclavicular lymphadenopathy. CHEST: Normal chest expansion. No Telemetry. LUNGS: Absence of any rales, rhonchi or any wheezing. CARDIOVASCULAR: Regular. S1 and S2 normal. No appreciable rubs, murmurs or gallops. ABDOMEN: Soft, nontender, and nondistended. There is no rebound, voluntary guarding, or rigidity. : Deferred. No [place]field. EXTREMITIES: Non-edematous and not cyanotic. No clubbing. Good capillary refill. Right BKA SKIN: No skin breakdown. Vital Signs (last 8hr) Date Time Temp Pulse Resp B/P (MAP) Pulse Ox O2 Delivery O2 Flow Rate FiO2 12/22/24 08:00 98.1 64 17 115/62 100 Room Air 12/22/24 03:36 98.4 72 20 102/67 97 Room Air LABS: Laboratory: Test 12/22/24 05:48 12/22/24 05:08 12/21/24 17:37 12/21/24 05:29 Range/Units Whole Blood Glucose 106 70-110 MG/DL White Blood Count 5.9 4.8-10.8 K/uL Red Blood Count 3.69 L 4.00-5.50 MIL/uL Hemoglobin 10.4 L 12.0-16.0 g/dL Hematocrit 32.8 L 36-48 % Mean Corpuscular Volume 88.9 79-99 fL Mean Corpuscular Hemoglobin 28.2 27.0-33.0 pg Mean Corpuscular Hemoglobin Concent 31.7 L 32.0-36.0 g/dL Red Cell Distribution Width 18.6 H 11.0-15.5 % Platelet Count 282 130-400 K/uL Mean Platelet Volume 10.9 H 7.5-10.5 fL Nucleated Red Blood Cells 0.0 0.0-0.19 % Sodium Level 139 136-145 mmol/L Potassium Level 3.6 3.5-5.1 mmol/L Chloride Level 101 101-111 mmol/L Carbon Dioxide Level 29 21-32 mmol/L Blood Urea Nitrogen 13 7-18 mg/dL Creatinine 0.8 0.5-1.0 mg/dL Glomerular Filtration Rate Calc 84 >90 mL/min Random Glucose 101 70-105 mg/dL Total Calcium 9.7 8.5-10.1 mg/dL Magnesium Level 2.00 1.80-2.40 mg/dL Total Bilirubin 0.5 0.2-1.0 mg/dL Aspartate Amino Transf (AST/SGOT) 21 10-37 U/L Alanine Aminotransferase (ALT/SGPT) 12 12-78 U/L Alkaline Phosphatase 69 50-136 U/L Total Protein 6.3 6.0-8.3 g/dL Albumin 2.8 L 3.5-5.0 g/dL Activated Partial Thromboplast Time 26.2 #L 26.3-35.5 SEC Bedside Glucose Comment Protocol Initiated Test 12/21/24 03:20 12/20/24 20:56 12/20/24 18:20 12/20/24 18:04 Range/Units Troponin I High Sensitivity 2885 *H 4-50 ng/L Prothrombin Time 11.0 9.6-11.6 SEC Prothromb Time International Ratio 1.04 0.85-1.15 Stool Occult Blood NEGATIVE NEGATIVE Hemoglobin A1c 7.0 H 4.0-6.0 % Estimated Average Glucose (eAG) 154 H 70-126 mg/dL Test 12/20/24 13:40 Range/Units Immature Granulocyte % (Auto) 0.3 0-1 % Neutrophils (%) (Auto) 55.1 40.0-77.0 % Lymphocytes (%) (Auto) 37.3 21.0-51.0 % Monocytes (%) (Auto) 5.5 3.0-13.0 % Eosinophils (%) (Auto) 1.3 0.0-8.0 % Basophils (%) (Auto) 0.5 0.0-5.0 % Neutrophils # (Auto) 3.3 1.8-7.7 K/uL Lymphocytes # (Auto) 2.2 1.0-4.8 K/uL Monocytes # (Auto) 0.3 0.1-1.0 K/uL Eosinophils # (Auto) 0.08 0.00-0.70 K/uL Basophils # (Auto) 0.03 0.00-0.20 K/uL Absolute Immature Granulocyte (auto 0.02 0-1 K/uL Red Blood Cell Morphology See comments B-Type Natriuretic Peptide 137 H 0-100 pg/mL Current Medications Medications (Trade) Dose Ordered Sig/Toby Route PRN Reason Start Time Stop Time Status Last Admin Dose Admin Aspirin (Aspirin 81mg Ec Tab) 81 mg DAILY PO 12/21/24 09:00 01/20/25 08:59 12/21/24 09:51 81 MG Atorvastatin Calcium (LIPItor 40MG) 40 mg HS PO 12/20/24 21:00 01/19/25 20:59 12/21/24 20:21 40 MG Carvedilol (Coreg 3.125MG) 3.125 mg BID PO 12/21/24 09:00 12/21/24 07:23 DC Dextrose (D50w) 50 ml AD PRN IV HYPOGLYCEMIA PROTOCOL 12/21/24 17:00 01/20/25 16:59 Famotidine (Pepcid 20mg Vial) 20 mg BID IV 12/20/24 21:00 01/19/25 20:59 12/21/24 20:21 20 MG Gabapentin (NEURontin 100 mg CAP) 100 mg TID PO 12/21/24 09:00 01/20/25 08:59 12/21/24 20:21 100 MG Glucagon (Glucagon 1mg Kit) 1 mg AD PRN IM HYPOGLYCEMIA PROTOCOL 12/21/24 17:00 01/20/25 16:59 Heparin Sodium/ Dextrose 250 ml @ 0 mls/hr PROTOCOL IV 12/20/24 16:30 01/19/25 16:29 12/20/24 16:44 7.87 MLS/HR Insulin Human Regular (humuLIN R 100 UNIT/ML 3ML) INSULIN SLIDING SCAL... ACHS SQ 12/20/24 21:00 01/19/25 20:59 Isosorbide Mononitrate (Imdur 30mg Sr) 30 mg DAILY PO 12/21/24 09:00 01/20/25 08:59 12/21/24 09:52 30 MG Metoprolol Succinate (TopROL XL) 12.5 mg DAILY PO 12/20/24 19:00 01/19/25 18:59 12/21/24 09:51 12.5 MG Nitroglycerin (Nitrostat) 0.4 mg Q5M PRN SL CHEST PAIN 12/20/24 13:00 12/20/24 13:32 0.4 MG Ondansetron HCl (zoFRAN 4MG TABLET) 4 mg Q6H6 PRN PO nausea/vomiting 12/20/24 23:00 01/19/25 22:59 Pantoprazole Sodium (PROTonix 40MG TAB) 40 mg DAILY PO 12/21/24 09:00 01/20/25 08:59 12/21/24 09:51 40 MG Pharmacy Profile Note (Lace Assessment) 1 each AD MISC 12/21/24 13:30 12/21/24 13:17 DC Prasugrel (Effient 10mg) 10 mg DAILY PO 12/22/24 09:00 01/21/25 08:59 Ticagrelor (BRILinta) 90 mg BID PO 12/21/24 09:00 12/21/24 17:20 DC 12/21/24 09:51 90 MG Tramadol HCl (UltRAM) 50 mg Q6H PRN PO MODERATE PAIN (4-6) 12/20/24 23:30 12/25/24 23:29 12/21/24 17:24 50 MG DIAGNOSTICS / RADIOLOGY: [ ] ASSESSMENT: ACS NSTEMI POA, status post left heart catheterization noted Residual CAD, 70% stenosis in the ostial LAD, 99% stenosis in the ostial diagonal 1, 90% stenosis in the proximal diagonal two, 95% stenosis in the ostial OM1, 80% stenosis in the distal RCA, 80% stenosis in the ostial RPDA, 95% stenosis in the ostial RPLV Diabetes type 2 with hyperglycemia, POA Acute on Chronic systolic congestive heart failure (improved LVEF of 40-45% by echocardiogram done on 07/28/2024) POA HLP suicidal ideation not POA Severe protein calorie malnutrition muscle atrophy POA Functional decline right BKA PLAN: [ ] Admit: PCCU condition:Guarded Status: Full Code IVF:heplock Consultants: Cardiology, recommendations to be followed: aspirin 81 mg daily, pr asugrel 10 mg daily (will be started in the a.m.), isosorbide mononitrate ER 30 mg daily, metoprolol succinate 12.5 mg daily and atorvastatin 40 mg q.h.s. 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 Replace electrolytes as needed as per protocol to keep potassium above 4.0 magnesium 2.0. A.c. HS monitoring with sliding scale coverage. One-to-one sitter Fall precautions PRN: MEDICATIONS Tylenol 650 mg po every 4 hrs for fever zofran 4 mg IV every 6 hrs for n/v Hydralazine 5 mg IV every 4 hrs systolic pressure > 160 bowel regiment: lactulose 20 gm PO BID PRN constipation Pain management: Supportive measures: DVT ppx, GI ppx all questions answered time spent: > 35 min Supervising MD: c/d This document was generated in part using voice recognition software, occasional wrong word or sound alike substitutions may have occurred due to the inherent limitations of voice recognition software. Read the chart carefully and recognize using context, where the substitutions have occurred. Although every effort was made to edit the content, duplicating machine operator and typing errors may occur ATTESTATION BY PHYSICIAN I have seen and examined the patient. I reviewed the documentation, medical decision making, and treatment plan as noted by the mid-level provider above. I agree with the findings and plan of care. MAIKEL DISLA MD, JANICE [facility] Dec 22, 2024 11:26
[2024-12-22 11:53] VITALS: BP 97/58; PULSE 74; RESP 17; TEMP 98.2
[2024-12-22] MEDS: duloXETine HCL 30 MG CAP PO SCH (12:36)
[2024-12-22] MEDS: PRASUGREL HCL 10 MG TABLET PO SCH (12:36)
--- NOTE | 2024-12-22 15:14 | NUR ---
DC PLAN TRIGGER FOR SUICIDAL IDEATIONS. TANK HOUSE OPERATOR AWARE VISITING PATIENT. TRIGGER FOR [facility] CM GAVE LOCAL [phone] AND .TO NURSE TO CALL FOR EVALUATION. Addendum: 12/22/24 at 1519 by MARCEL SANCHEZ RN CM Amended: Links added.
[2024-12-22 16:00] VITALS: BP 124/75; PULSE 65; RESP 17; TEMP 97.5
--- NOTE | 2024-12-22 17:55 | NUR ---
Tropical Screener Call has been made to [facility] Hotline to notify that we need this patient to be screened due to suicidal ideations. pending call back with ETA of arrival. 1:1 sitter in room. No behavioral issues during day shift. I will continue to monitor.
--- NOTE | 2024-12-22 19:14 | HMCSR ---
APPROVED REPORT EXAM: Two-dimensional and M-mode echocardiogram with Doppler and color Doppler. Study Details: HTN ,HLD , AR , Diabts M INDICATION ICD: ACS 2D Dimensions RVDd3.0 cmLVEF(%)37.4 (>50%)LVED Vol(simp.)147.0 mL IVSd0.7 (0.7-1.1cm)FS(%)18 %LVES Vol(simp.)90.0 mL LVDd5.0 (3.8-5.6cm)LA (2D)2.9 (1.6-4.0cm)LVEF(%, simp.)39 % PWd0.8 (0.7-1.1cm)Ao Root(2D)2.9 (2.0-3.7cm)LA ESV INDEX (4CH)25.00 mL/m2 IVSs0.8 cmLVOT diam2.1 (1.8-2.4cm)LA ESV INDEX (2CH)18.80 mL/m2 LVDs4.1 (2.5-4.0cm)IVC diam1.1 cmLA ESV INDEX (BP)17.40 mL/m2 PWs1.2 cm Deformation Strain Apical 410.5 % Apical 211.3 % Apical 315.0 % Global Wunlft48.2 % M-Mode Dimensions EPSS1.7 cm LA (MM)2.8 (1.6-4.0cm) Ao Root(MM)3.0 (2.0-3.7cm) Aortic Valve AoV Vmax1.8 m/Brennen Peak GR13.5 mmHgLVOT Vmax0.5 m/s AoV VTI0.4 mAo Mean GR7.8 mmHgLVOT VTI0.10 m ANDRES (VMAX)0.8 cm2Al P1/2T713 msAVA (VTI) 0.8 cm2 Mitral Valve MV E Bddz083.8 cm/sDECEL Cmpi216 ms MV A Vmax91.7 cm/sP 1/2 T90 ms E/A ratio1.1MVA (PHT)2.4 cm2 TDI E/E' Sgvihr08.9 Pulmonary Valve PV Vmax1.0 m/s Left Ventricle The left ventricle is moderately dilated. Global hypokinesis of the left ventricle. There is normal l eft ventricular wall thickness. LVEF is 35-40%. Stage II, diastolic dysfunction. Right Ventricle The right ventricle is normal size. The right ventricular systolic function is normal. Atria The left atrium size is normal. The right atrium size is normal. Aortic Valve The aortic valve is mildly thickened. Aortic valve is trileaflet. Mild aortic regurgitation. There is no aortic valvular stenosis. Mitral Valve The mitral valve is mildly thickened. Mitral regurgitation is trace. There is no mitral valve stenosi s. Tricuspid Valve The tricuspid valve leaflets are mildly thickened. Trace tricuspid regurgitation. Pulmonic Valve The pulmonary valve is normal in structure and function. There is no pulmonic valvular stenosis. Ther e is trace valvular regurgitation. Great Vessels The ascending aorta is normal in size. The IVC is normal in size and collapses >50% with inspiration. Pericardium No pericardial effusion. Other Information Quality : ExcellentRhythm : NSR Conclusion The left ventricle is moderately dilated. Global hypokinesis of the left ventricle. LVEF is 35-40%. Stage II, diastolic dysfunction. Mild aortic regurgitation.
[2024-12-22 20:33] VITALS: BP 128/79; PULSE 65; RESP 18; TEMP 98
[2024-12-22 21:05] VITALS: O2SAT 97
--- NOTE | 2024-12-22 21:10 | NUR ---
As per conversation with Anita reese with [facility] behavioral patient is cleared from her standpoint to go home. As per Anita patient does not meet criteria for inpatient behavioral hospital. However, she did state that she will need to setup an intake appointment with patient for [facility] outpatient services. As per Anita patient is requesting outpatient services. Patient updated, as well as at bedside. Patient inquired about leaving home tonight. Patient verbalized she was told she could be discharged home tonight. No discharge order in place, no discharge summary in place. Advised patient that there is a process for hospitalist to discharge a patient which require medication reconciliation and orders for discharge. Patient became upset and refused to talk to this nurse. Advised patient that she can leave the hospital AMA by signing paper. Patient verbalized " I am not going to sign anything". Notified of her right to leave whenever she wants if she wishes too but reinforced to patient that proper discharge procedure is for hospitalist to discharge. Julian in agreement for patient to stay overnight so that patient can be discharged accordingly. Patient became upset with . Page made out to hospitalist. Addendum: 12/22/24 at 2210 by JOVANNI BECKER RN RN Patient upset of the fact that she will not be leaving tonight. Patient refused to take her scheduled night medications. Patient stated " If I stay here in this hospital, I am going to tonight". Asked patient if had any suicidal ideation. Patient stayed quiet, covered her self with blanket and closed her eyes. sitter at bedside.
--- NOTE | 2024-12-22 21:19 | NUR ---
Spoke to [facility] np. updated.
--- NOTE | 2024-12-22 23:44 | PN ---
Cardiology Progress Note Date of Service: 12/22/2024 Attending Rn Recovery: Dr. Citlali Ennis Primary Rn Recovery: Dr. Jefry Carrasco Reason for Consult: ACS-NSTEMI Problem List: -ACS-NSTEMI s/p LHC/coronary angiogram done on 12/21/2024 which identified patent stents in the proximal LAD and proximal and distal LCx, 70% stenosis in the ostial LAD, 99% stenosis in the ostial D1, 90% stenosis in the proximal D2, 95% stenosis in the ostial OM1, 80% stenosis in the distal RCA, 80% stenosis in the ostial RPDA, 95% stenosis in the ostial RPLV, which will be medically managed -Suicidal ideation, currently with 1:1 sitter -h/o of ACS-STEMI s/p PCI with VIANEY placement (BSS 3.0x20 mm) in the proximal LAD, VIANEY placement (BSS 3.5x16 mm) in the proximal LCx, VIANEY placement (BSS 3.0x12 mm) in the mid LCx, and VIANEY placement (BSS 2.75x24 mm) in the distal LCx done on 07/17/2024 -HFrEF (LVEF: 35-40% by echo done on 12/20/2024) -h/o Intraprocedural VT -h/o cardiogenic shock requiring Impella placement -Right lower extremity ischemia secondary to Impella placement 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 The patient denies any chest pain, chest pressure, palpitations, or shortness of breath. She remains on 1:1 precautions secondary to suicidal ideation. Vitals/Labs Vital Signs Date Time Temp Pulse Resp B/P (MAP) Pulse Ox O2 Delivery O2 Flow Rate FiO2 12/22/24 21:05 97 Room Air* 0 21 12/22/24 20:33 98.1 65 18 128/79 General: Alert and oriented. NAD HEENT: NC/AT. Oral mucosa is moist. Neck: No masses or carotid bruits Lungs: NRD. SCM. Bilateral air entry. CTA. No obvious wheezing, rales or rhonchi. Cardio: Regular rate. Normal S1 and S2. +S4. No obvious murmur, gallops, or rubs noted. Abdomen: Soft. NT. ND. Normal active bowel sounds x 4 quadrants. Extremities: Right BKA noted. +2 pulses noted in the left lower extremity. Neuro: CN II-XII were grossly intact. No obvious focal deficits. Laboratory Tests 12/22/24 05:08 Assessment: -ACS-NSTEMI s/p LHC/coronary angiogram done on 12/21/2024 which identified patent stents in the proximal LAD and proximal and distal LCx, 70% stenosis in the ostial LAD, 99% stenosis in the ostial D1, 90% stenosis in the proximal D2, 95% stenosis in the ostial OM1, 80% stenosis in the distal RCA, 80% stenosis in the ostial RPDA, 95% stenosis in the ostial RPLV, which will be medically managed -Suicidal ideation, currently with 1:1 sitter -h/o of ACS-STEMI s/p PCI with VINAEY placement (BSS 3.0x20 mm) in the proximal LAD, VIANEY placement (BSS 3.5x16 mm) in the proximal LCx, VIANEY placement (BSS 3.0x12 mm) in the mid LCx, and VIANEY placement (BSS 2.75x24 mm) in the distal LCx done on 07/17/2024 -HFrEF (LVEF: 35-40% by echo done on 12/20/2024) -h/o Intraprocedural VT -h/o cardiogenic shock requiring Impella placement -Right lower extremity ischemia secondary to Impella placement resulting in right sided BKA -Ischemic cardiomyopathy -HLP -DM2 -Hypochromic anemia -Medication noncompliance Plan: 1. ACS-NSTEMI s/p LHC/coronary angiogram done on 12/21/2024 which identified patent stents in the proximal LAD and proximal and distal LCx, 70% stenosis in the ostial LAD, 99% stenosis in the ostial D1, 90% stenosis in the proximal D2, 95% stenosis in the ostial OM1, 80% stenosis in the distal RCA, 80% stenosis in the ostial RPDA, 95% stenosis in the ostial RPLV, which will be medically managed -Stable -HS troponin I peak: 3964 -The patient will continue on conservative goal directed ACS therapy which includes aspirin 81 mg daily, prasugrel 10 mg daily, metoprolol succinate 12.5 mg daily, isosorbide mononitrate ER 30 mg daily, and atorvastatin 40 mg QHS. The patient should remain on DAPT for a minimum of 1 year as per ACS guidelines. -Medication compliance was stressed to the patient. CITLALI ENNIS MD Dec 22, 2024 23:44
[2024-12-23 00:38] VITALS: BP 128/75; PULSE 63; RESP 18; TEMP 98
[2024-12-23 03:59] VITALS: BP 138/64; PULSE 58; RESP 18; TEMP 98.5
[2024-12-23 04:59] LABS: HEMATOCRIT 34.6 % (36-48); MEAN CORPUSCULAR HEMOGLOBIN 28.3 pg (27.0-33.0); MEAN CORPUSCULAR HGB CONC 31.2 g/dL (32.0-36.0); MEAN CORPUSCULAR VOLUME 90.6 fL (79-99); RED BLOOD CELL COUNT(AUTO) 3.82 MIL/uL (4.00-5.50); RED CELL DISTRIBUTION WIDTH 18.2 % (11.0-15.5); WHITE BLOOD COUNT (AUTO) 6.5 K/uL (4.8-10.8)
[2024-12-23 05:19] LABS: CREATININE 0.6 mg/dL (0.5-1.0); MAGNESIUM 2.1 mg/dL (1.80-2.40); POTASSIUM 3.8 mmol/L (3.5-5.1)
[2024-12-23 07:10] VITALS: BP 121/66; PULSE 60; RESP 18; TEMP 97.9
[2024-12-23 08:00] VITALS: O2SAT 93
[2024-12-23] MEDS ORDERED: PRAS10TA6 PO (08:36)
[2024-12-23] MEDS ORDERED: METO25TA3 PO (08:36)
[2024-12-23] MEDS ORDERED: Isosorbide Mono 30MG Sr Tab PO (08:36)
--- NOTE | 2024-12-23 10:37 | DS ---
Discharge Summary Hospital Course Summary: This is a 59 year old female with past medical h/o ACS STEMI status post PCI presents in ED with chief complaints of chest pain. She has comorbidities of Diabetes type 2, hypertension, [place] and medication noncompliance. Past surgical history of Right BKA. Patient was admitted for NSTEMI s/p [facility] by Dr. Ennis who noted residual CAD, 70% stenosis in the ostial LAD, 99% stenosis in the ostial diagonal one, 90% stenosis in the proximal diagonal two, 95% stenosis in the ostial OM1, 80% stenosis in the distal RCA, 80% stenosis in the ostial RPDA, 95% stenosis in the ostial RPLV. Patient was started with medication noncompliance. Recommendation to continue npmnsuo97 mg daily, prasugrel 10 mg daily to be started today, isosorbide mononitrate ER 30 mg daily, metoprolol succinate 12.5 mg daily and atorvastatin 40 mg q.h.s. When patient was admitted she was noted to have h/.o of suicidal ideation for which she verbalized to me that she felt depressed in August after they had amputated her leg. But she said that she will not do it as she has a son with di sability. She admitted for having history of bipolar disorder. But for thoroughness, we have consulted [facility] for inpatient placement but after review, [facility] indicated that she does not qualify and she can just follow up in the outpatient setting. Since patient remained stable. She will be discharge and new medications have been reviewed and reconciled. She will be discharged today with instructions to follow up with her PCP in 2-3 days. Patient will also follow up with managed care specialist in 1 week. Swimmer(s): Dr. Ennis- cardio Procedure(s): s/p C left heart catheterization noted Residual CAD, 70% stenosis in the ostial LAD, 99% stenosis in the ostial diagonal 1, 90% stenosis in the proximal diagonal two, 95% stenosis in the ostial OM1, 80% stenosis in the distal RCA, 80% stenosis in the ostial RPDA, 95% stenosis in the ostial RPLV Assessment/Plan: Discharged Diagnoses: ACS NSTEMI POA, status post left heart catheterization noted Residual CAD, 70% stenosis in the ostial LAD, 99% stenosis in the ostial diagonal 1, 90% stenosis in the proximal diagonal two, 95% stenosis in the ostial OM1, 80% stenosis in the distal RCA, 80% stenosis in the ostial RPDA, 95% stenosis in the ostial RPLV Diabetes type 2 with hyperglycemia, POA Acute on Chronic systolic congestive heart failure (improved LVEF of 40-45% by e chocardiogram done on 07/28/2024) POA HLP suicidal ideation not POA Severe protein calorie malnutrition muscle atrophy POA Functional decline right BKA Admitting Diagnoses: ACS NSTEMI POA Diabetes type 2 with hyperglycemia, POA acute on Chronic systolic congestive heart failure (improved LVEF of 40-45% by echocardiogram done on 07/28/2024) POA HLP suicidal ideation not POA Severe protein calorie malnutrition muscle atrophy POA Functional decline right BKA Discharge Instructions: Follow up with with PCP in 2-3 days 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 with [employer] 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 in 1 week Home Medications: Active Scripts Prasugrel HCl (Effient) 10 Mg Tablet, 10 MG PO DAILY, #30 TAB 0 Refills Prov:TOMEKA SCHULTE AGPCNP 12/23/24 Metoprolol Succinate (Toprol Xl) 25 Mg Tab.er.24h, 12.5 MG PO DAILY, #30 TAB 0 Refills Prov:TOMEKA SCHULTE AGPCNP 12/23/24 [Isosorbide [place] 30MG Sr Tab] 30 MG TAB.ER.24H No Conflict Check, 30 MG PO DAILY, #30 0 Refills Prov:TOMEKA SCHULTE AGPCNP 12/23/24 Pantoprazole Sodium (Protonix) 40 Mg Ectab, 1 TAB PO DAILY for 30 Days, #30 TAB 0 Refills Prov:JESSE SOSA MD 11/09/24 Reported Medications [Tramadol Hcl ] No Conflict Check, 50 MG PO Q6HPRN PRN for PAIN 12/20/24 Dapagliflozin Propanediol (Farxiga) 10 Mg Tablet, 1 TAB PO DAILY for 30 Days, #30 TAB 0 Refills 12/20/24 Ondansetron HCl (Ondansetron HCl) 4 Mg Tablet, 1 TAB PO Q6HPRN PRN for nausea/vomiting, #10 TAB 0 Refills 12/20/24 Escitalopram Oxalate (Escitalopram Oxalate) 5 Mg Tablet, 1 TAB PO DAILY for 30 Days, #30 TAB 0 Refills 12/20/24 Gabapentin (Gabapentin) 100 Mg Capsule, 1 CAP PO TID for 30 Days, #90 CAP 0 Refills 11/06/24 Atorvastatin Calcium (LIPITOR) 40 Mg Tablet, 1 TAB PO HS for 30 Days, #30 TAB 0 Refills 09/12/24 New Medications: [Isosorbide [place] 30MG Sr Tab] () 30 MG TAB.ER.24H 30 MG PO DAILY, #30 0 Refills Metoprolol Succinate (Toprol Xl) 25 Mg Tab.er.24h 12.5 MG PO DAILY, #30 TAB 0 Refills Prasugrel HCl (Effient) 10 Mg Tablet 10 MG PO DAILY, #30 TAB 0 Refills Continued Medications: Atorvastatin Calcium (Lipitor) 40 Mg Tablet 1 TAB PO HS for 30 Days, #30 TAB 0 Refills Dapagliflozin Propanediol (Farxiga) 10 Mg Tablet 1 TAB PO DAILY for 30 Days, #30 TAB 0 Refills Escitalopram Oxalate (Escitalopram Oxalate) 5 Mg Tablet 1 TAB PO DAILY for 30 Days, #30 TAB 0 Refills Gabapentin (Gabapentin) 100 Mg Capsule 1 CAP PO TID for 30 Days, #90 CAP 0 Refills Ondansetron HCl (Ondansetron HCl) 4 Mg Tablet 1 TAB PO Q6HPRN PRN for nausea/vomiting, #10 TAB 0 Refills Pantoprazole Sodium (Protonix) 40 Mg Ectab 1 TAB PO DAILY for 30 Days, #30 TAB 0 Refills [Tramadol Hcl ] () 50 MG PO Q6HPRN PRN for PAIN Time spent arranging discharge: 31-60 minutes ATTESTATION BY PHYSICIAN I have seen and examined the patient. I reviewed the documentation, medical decision making, and treatment plan as noted by the mid-level provider above. I agree with the findings and plan of care. MAIKEL DISLA MD, [facility] Dec 23, 2024 10:37
--- NOTE | 2024-12-23 10:42 | NUR ---
SPOKE WITH NIESHA ORTIZ FROM [facility]. PER NIESHA PATIENT CLEARED FOR DISCHARGE HOME. SHE WILL FOLLOW UP WITH PATIENT TODAY AT HOME.
--- NOTE | 2024-12-23 10:44 | PN ---
Cardiology Progress Note Date of Service: 12/23/2024 Attending Manager Of Corporate Communications: Dr. Niall Ennis Primary Manager Of Corporate Communications: Dr. Jefry Carrasco Reason for Consult: ACS-NSTEMI Problem List: -ACS-NSTEMI s/p LHC/coronary angiogram done on 12/21/2024 which identified patent stents in the proximal LAD and proximal and distal LCx, 70% stenosis in the ostial LAD, 99% stenosis in the ostial D1, 90% stenosis in the proximal D2, 95% stenosis in the ostial OM1, 80% stenosis in the distal RCA, 80% stenosis in the ostial RPDA, 95% stenosis in the ostial RPLV, which will be medically managed -Suicidal ideation s/p evaluation by [facility] on 12/22/2024, deemed a low risk -h/o of ACS-STEMI s/p PCI with VIANEY placement (BSS 3.0x20 mm) in the proximal LAD, VIANEY placement (BSS 3.5x16 mm) in the proximal LCx, VIANEY placement (BSS 3.0x12 mm) in the mid LCx, and VIANEY placement (BSS 2.75x24 mm) in the distal LCx done on 07/17/2024 -HFrEF (LVEF: 35-40% by echo done on 12/20/2024) -h/o Intraprocedural VT -h/o cardiogenic shock requiring Impella placement -Right lower extremity ischemia secondary to Impella placement 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 The patient denies any chest pain, chest pressure, palpitations, or shortness of breath. There were no overnight reported events. Vitals/Labs Vital Signs Date Time Temp Pulse Resp B/P (MAP) Pulse Ox O2 Delivery O2 Flow Rate FiO2 12/23/24 07:10 97.9 60 18 121/66 96 Room Air 12/22/24 21:05 0 21 General: Alert and oriented. NAD. Chronically ill appearing. HEENT: NC/AT. Oral mucosa is moist. Neck: No masses or carotid bruits Lungs: NRD. SCM. Bilateral air entry. CTA. No obvious wheezing, rales or rhonchi. Cardio: Regular rate. Normal S1 and S2. +S4. No obvious murmur, gallops, or rubs noted. Abdomen: Soft. NT. ND. Normal active bowel sounds x 4 quadrants. Extremities: Right BKA noted. +2 pulses noted in the left lower extremity. Neuro: CN II-XII were grossly intact. No obvious focal deficits. Laboratory Tests 12/23/24 04:21 Assessment: -ACS-NSTEMI s/p LHC/coronary angiogram done on 12/21/2024 which identified patent stents in the proximal LAD and proximal and distal LCx, 70% stenosis in the ostial LAD, 99% stenosis in the ostial D1, 90% stenosis in the proximal D2, 95% stenosis in the ostial OM1, 80% stenosis in the distal RCA, 80% stenosis in the ostial RPDA, 95% stenosis in the ostial RPLV, which will be medically managed -Suicidal ideation s/p evaluation by [facility] on 12/22/2024, deemed a low risk -h/o of ACS-STEMI s/p PCI with VIANEY placement (BSS 3.0x20 mm) in the proximal LAD, VIANEY placement (BSS 3.5x16 mm) in the proximal LCx, VIANEY placement (BSS 3.0x12 mm) in the mid LCx, and VIANEY placement (BSS 2.75x24 mm) in the distal LCx done on 07/17/2024 -HFrEF (LVEF: 35-40% by echo done on 12/20/2024) -h/o Intraprocedural VT -h/o cardiogenic shock requiring Impella placement -Right lower extremity ischemia secondary to Impella placement resulting in right sided BKA -Ischemic cardiomyopathy -HLP -DM2 -Hypochromic anemia -Medication noncompliance Plan: 1. ACS-NSTEMI s/p LHC/coronary angiogram done on 12/21/2024 which identified patent stents in the proximal LAD and proximal and distal LCx, 70% stenosis in the ostial LAD, 99% stenosis in the ostial D1, 90% stenosis in the proximal D2, 95% stenosis in the ostial OM1, 80% stenosis in the distal RCA, 80% stenosis in the ostial RPDA, 95% stenosis in the ostial RPLV, which will be medically managed -Stable -HS troponin I peak: 3964 -The patient will continue on conservative goal directed ACS therapy which includes aspirin 81 mg daily, prasugrel 10 mg daily, metoprolol succinate 12.5 mg daily, isosorbide mononitrate ER 30 mg daily, and atorvastatin 40 mg QHS. The patient should remain on DAPT for a minimum of 1 year as per ACS guidelines. -Medication compliance was stressed to the patient. 2. HFrEF (LVEF: 35-40% by echo done on 12/20/2024) -Stable and without signs or symptoms suggestive of volume overload -The patient will continue on conservative medical therapy which includes metoprolol succinate 12.5 mg daily. We will reassess the patient's hemodynamics as an outpatient in order to determine her candidacy for GDMT with ACEI/ARB therapy as an outpatient. The patient can be discharged from a Cardiac Standpoint. Please have the patient follow up with Cardiology, Dr. Jefry Carrasco, 1-2 weeks after discharge. This case was discussed with my Supervising Physician, Dr. Niall Ennis, and the above mentioned plan was formulated and agreed upon. -Progress Note written by Mandeep Prince, MSN, CLINICAL APPLICATION MANAGER, AGACNP-BC MANDEEP PRINCE NP Dec 23, 2024 10:44
--- NOTE | 2024-12-23 11:10 | NUR ---
PATIENT ALERT AND ORIENTED WITH SPOUSE AT BEDSIDE. PATIENT EDUCATED TO FOLLOW UP WITH [facility] PER SCHEDUED APPOINTMENT AND PCP IN 2 -3 DAYS AND LILA WILL FOLLOW UP WITH PATIENT AT HOME TODAY. EXTENSIVE EDUCATION PROVIDED REGARDING NEW MEDICATION LIST. INCLUDING SIDE EFFECTS AND COMPLIANCE WITH MEDICATIONS. IV X2 REMOVED WITHOUT COMPLICATIONS. SUICIDAL IDEATION EDUCATION PROVIDED AND REVIEWED. PATIENT EVALUATED BY LILA AND CLEARED FOR DISCHARGE HOME. ALL QUESTION ASKED BY PATIENT ANSWERED. PATIENT AND SPOUSE VERBALIZED UNDERSTANDING. PATIENT DISCHARGED WITH ALL BELONGINGS AND WHEELED DOWN TO PERSONAL VEHICLE.
--- NOTE | 2024-12-23 14:36 | NUR ---
Nutritional Note: Pt denied N/V, NKFA, problems chewing/swallowing, MVI qd. Pt reported last BM 12/23, UBW 135 lbs before BKA 5 mo. ago, unknown wt loss in last 3 mo., last PCP 10/2024, and previous T2DM nutrition education classes. Provided Heart Healthy and T2DM refresher MNT handouts in [place]. Pt was agreeable to Prostat Jello TID to supplement diet in increasing protein. NFPE was conducted to find moderate muscle loss in temporalis, clavicle, and interosseous regions, and moderate fat loss in orbital, buccal, and triceps region. Pt has PCM due to wt loss of 21.3% in 3 mo adj. for amputation, PO 50% for 3 mo, and NFPE moderate muscle depletion and fat loss. Pt was preparing for d/c by nurse. Expected adherence is fair. Recommendations -Continue Heart Healthy - Add 65g CC modifier -Advance diet when medically feasible to -Order Prostat Jello 30 ml qd TID for all trays -Monitor PO intake -Encourage PO intake as able -If poor PO intake continues consider appetite stimulant -Monitor wts -Reweigh as able -Consider MVI QD -Monitor care goals RD to follow + available for consult per protocol Dietetic Student, Lalitha Deluca Addendum: 12/23/24 at [address] Amended: Links added.
== END 2024-12-23 11:20 | disposition home or self-care (01) | DRG 280 ==
LOC: EDH 12:42 → EDHIP 17:33 → 2DH 21:36
PROVIDERS: ADMIT Family Medicine; ATTEND Family Medicine
PROC: 4A023N7 Measurement of Cardiac Sampling and Pressure, Left Heart, Percutaneous Approach (ICD-10-PCS; principal; 2024-12-21)
PROC: B2111ZZ Fluoroscopy of Multiple Coronary Arteries using Low Osmolar Contrast (ICD-10-PCS; 2024-12-21)
DX: I21.4 Non-ST elevation (NSTEMI) myocardial infarction (principal); E43 Unspecified severe protein-calorie malnutrition; I50.23 Acute on chronic systolic (congestive) heart failure; R45.851 Suicidal ideations; Z68.1 Body mass index [BMI] 19.9 or less, adult; E11.65 Type 2 diabetes mellitus with hyperglycemia; I11.0 Hypertensive heart disease with heart failure; D50.9 Iron deficiency anemia, unspecified; I25.5 Ischemic cardiomyopathy; I99.8 Other disorder of circulatory system; E78.00 Pure hypercholesterolemia, unspecified; I25.10 Atherosclerotic heart disease of native coronary artery without angina pectoris; F31.9 Bipolar disorder, unspecified; Z79.02 Long term (current) use of antithrombotics/antiplatelets; Z82.49 Family history of ischemic heart disease and other diseases of the circulatory system; Z83.3 Family history of diabetes mellitus; Z91.148 Patient's other noncompliance with medication regimen for other reason; Z89.511 Acquired absence of right leg below knee; Z95.1 Presence of aortocoronary bypass graft; Z95.5 Presence of coronary angioplasty implant and graft; Z79.899 Other long term (current) drug therapy
CPT/HCPCS: 36415; 70360; 71045; 80048; 80053; 82270; 82948; 83036; 83735; 83880; 84484; 85025; 85027; 85610; 85730; 93005; 93306; 93356; 93458; 96365; 96375; 99156; 99157; 99285; C1760; C1894; G0378; J0461; J1265; J1644; J1815; J2250; J2270; J2405; J3010; J3490; Q9967; Q9965

== ENCOUNTER 2025-02-24 04:59 | Inpatient (IN) | payer BC ==
[~2025-02-24] VITALS: Ht 172.7 cm; Wt 42.5 kg
[~2025-02-24 04:59] MED LIST changes: -ASPI-1197 PO; -BALS60OI TP; +DAPA10TA PO; -FERR324T4 PO; -FIDA200T PO; +Isosorbide Mono 30MG Sr Tab PO; +METO25TA3 PO; +ONDA-104 PO; +PRAS10TA20 PO; -SACC250C3 PO; +TRAMADOL HCL PO
--- NOTE | 2025-02-24 05:32 | ERN ---
ED Note History of Present Illness Stated Complaint: CHEST PAIN Chief Complaint: Chest Pain Time Seen by MD: 05:04 Dictation: This is a 59 year old female with past medical h/o ACS STEMI status post PCI presents in ED with chief complaints of chest pain. She has comorbidities of Diabetes type 2, hypertension, NC and medication noncompliance. Past surgical history of Right BKA. Patient was admitted for NSTEMI s/p LHC by Dr. Ennis who noted residual CAD, 70% stenosis in the ostial LAD, 99% stenosis in the ostial diagonal one, 90% stenosis in the proximal diagonal two, 95% stenosis in the ostial OM1, 80% stenosis in the distal RCA, 80% stenosis in the ostial RPDA, 95% stenosis in the ostial RPLV. Recommendation to continue [id number] mg daily, prasugrel 10 mg daily to be started today, isosorbide mononitrate ER 30 mg daily, metoprolol succinate 12.5 mg daily and atorvastatin 40 mg q.h.s. Temperature 97.8 pulse 52 respirations 16 blood pressure 103/59 pulse oximetry 98% on room air Patient's lighting technician is Dr. Jefry osorio Allergies: Coded Allergies: No Known Drug Allergies (Unverified Allergy, Unknown, 09/06/18) Home Meds Active Scripts Prasugrel HCl (Effient) 10 Mg Tablet, 10 MG PO DAILY, #30 TAB 0 Refills Prov:TOMEKA SCHULTE AGPCNP 12/23/24 Metoprolol Succinate (Toprol Xl) 25 Mg Tab.er.24h, 12.5 MG PO DAILY, #30 TAB 0 R efills Prov:TOMEKA SCHULTE AGPCNP 12/23/24 [Isosorbide Reynolds 30MG Sr Tab] 30 MG TAB.ER.24H No Conflict Check, 30 MG PO DAILY, #30 0 Refills Prov:TOMEKA SCHULTE AGPCNP 12/23/24 Pantoprazole Sodium (Protonix) 40 Mg Ectab, 1 TAB PO DAILY for 30 Days, #30 TAB 0 Refills Prov:JESSE SOSA MD 11/09/24 Reported Medications [Tramadol Hcl ] No Conflict Check, 50 MG PO Q6HPRN PRN for PAIN 12/20/24 Dapagliflozin Propanediol (Farxiga) 10 Mg Tablet, 1 TAB PO DAILY for 30 Days, #30 TAB 0 Refills 12/20/24 Ondansetron HCl (Ondansetron HCl) 4 Mg Tablet, 1 TAB PO Q6HPRN PRN for nausea/vomiting, #10 TAB 0 Refills 12/20/24 Escitalopram Oxalate (Escitalopram Oxalate) 5 Mg Tablet, 1 TAB PO DAILY for 30 Days, #30 TAB 0 Refills 12/20/24 Gabapentin (Gabapentin) 100 Mg Capsule, 1 CAP PO TID for 30 Days, #90 CAP 0 Refills 11/06/24 Atorvastatin Calcium (LIPITOR) 40 Mg Tablet, 1 TAB PO HS for 30 Days, #30 TAB 0 Refills 09/12/24 Past Medical History Past Medical History: Diabetes-Type II, Heart Disease, Hypertension Surgical History: Other Surgical History Other: RT BKA, HEART STENT Family History: Negative Social History: Negative History: Not Applicable RN Note Reviewed/Agreed w/PFSH: Yes Review of System Dictation Constitutional: Negative for fever,chills, and weight loss Eyes: Negative for injury, pain,redness, and discharge ENT: Negative for injury,pain or swelling Cardiovascular: Positive for for chest pain, denies palpitations, and edema Respiratory: Negative for shortness of breath, cough, and wheezing, Abdomen/GI: Negative for abdominal pain, nausea, vomiting, diarrhea, and constipation Back: Negative for injury and pain : Negative for injury, bleeding and discharge MS/Extremity: Negative for injury and deformity Skin: Negative for rash, and discoloration Neuro: Negative for headache, weakness, numbness, tingling, and seizure Psych: Negative for suicide ideation, homicidal ideation, and hallucinations Initial Vital Sign VS Vital Signs Date Time Temp Pulse Resp B/P (MAP) Pulse Ox O2 Delivery O2 Flow Rate FiO2 02/24/25 05:00 97.9 52 16 103/59 99 Room Air 0 02/24/25 05:23 21 Physical Exam Dictation General: awake, alert, NAD , ill-appearing Head/Face: Normocephalic, atraumatic Eyes: PERRL, EOMI, vision at baseline ENT: oral cavity clear, TMs clear, no signs of infection Neck: Trachea midline, supple, no nuchal rigidity Cardiovascular: RRR, normal S1/S2, No MRGs, no JVD Respiratory: CTAB, no respiratory distress, No rales or wheezes Abdomen: Soft, non-tender, non-distended, normal bowel sounds, no guarding or rebound. Skin: Warm, dry, normal turgor, no rash MS/Extremity: Pulses equal, no cyanosis, neurovascular intact, FROM status post right BKA Neuro: COAx4, GCS 15, strength 5/5, CN 2-12 intact, normal cerebellar exam, normal gait, Psych: Normal behavior, mood, and affect normal Extremities-trace edema without any palpable cords, Homans sign is negative Results (Laboratory/Radiology) Laboratory/Radiology Laboratory Tests Test 02/24/25 05:14 White Blood Count 7.5 K/uL (4.8-10.8) Red Blood Count 3.88 MIL/uL (4.00-5.50) L Hemoglobin 11.8 g/dL (12.0-16.0) L Hematocrit 35.9 % (36-48) L Mean Corpuscular Volume 92.5 fL (79-99) Mean Corpuscular Hemoglobin 30.4 pg (27.0-33.0) Mean Corpuscular Hemoglobin Concent 32.9 g/dL (32.0-36.0) Red Cell Distribution Width 13.9 % (11.0-15.5) Platelet Count 256 K/uL (130-400) Mean Platelet Volume 11.2 fL (7.5-10.5) H Immature Granulocyte % (Auto) 0.3 % (0-1) Neutrophils (%) (Auto) 40.6 % (40.0-77.0) Lymphocytes (%) (Auto) 50.0 % (21.0-51.0) Monocytes (%) (Auto) 7.1 % (3.0-13.0) Eosinophils (%) (Auto) 1.6 % (0.0-8.0) Basophils (%) (Auto) 0.4 % (0.0-5.0) Neutrophils # (Auto) 3.0 K/uL (1.8-7.7) Lymphocytes # (Auto) 3.7 K/uL (1.0-4.8) Monocytes # (Auto) 0.5 K/uL (0.1-1.0) Eosinophils # (Auto) 0.12 K/uL (0.00-0.70) Basophils # (Auto) 0.03 K/uL (0.00-0.20) Absolute Immature Granulocyte (auto 0.02 K/uL (0-1) Nucleated Red Blood Cells 0.0 % (0.0-0.19) Prothrombin Time 10.5 SEC (9.6-11.6) Prothromb Time International Ratio 0.99 (0.85-1.15) Activated Partial Thromboplast Time 25.9 SEC (26.3-35.5) L Sodium Level 140 mmol/L (136-145) Potassium Level 3.7 mmol/L (3.5-5.1) Chloride Level 108 mmol/L (101-111) Carbon Dioxide Level 27 mmol/L (21-32) Blood Urea Nitrogen 19 mg/dL (7-18) H Creatinine 0.6 mg/dL (0.5-1.0) Glomerular Filtration Rate Calc 102 mL/min (>90) Random Glucose 147 mg/dL (70-105) H Total Calcium 9.7 mg/dL (8.5-10.1) Total Creatine Kinase 36 U/L (21-232) # Troponin I High Sensitivity 18 ng/L (4-50) B-Type Natriuretic Peptide 173 pg/mL (0-100) H Labs Reviewed?: Yes EKG Comment: Twelve lead EKG done on 02/24/2025 at 5:18 a.m. showed a heart rate of 50, W[place] interval 167, QRS duration 95, QT/QTC 454/414. Impression normal sinus rhythm with significant ST depressions in the lateral leads lead 1 aVL V5 V6. Please note that changes in V5 and V6 were not seen in December 2024. Presence of LVH noted anterior STT wave changes were also noted. EKG rhythm strip shows a normal sinus rhythm. Interpreted by ER MD Dr. Davenport ED Course ED Course Orders Procedure Category Date Status Time Cbc With Differential LAB 02/24/25 Complete 05:08 B-Type Natriuretic LAB 02/24/25 Complete Peptide 05:08 Chest 1vw RAD 02/24/25 Taken 05:08 12 Lead Ekg Tracing- EKG 02/24/25 Logged Technical 05:08 Creatine Kinase, Total LAB 02/24/25 Complete 05:08 Troponin I High LAB 02/24/25 Complete Sensitivity 05:08 Urinalysis Profile LAB 02/24/25 Logged 05:08 Basic Metabolic Panel LAB 02/24/25 Complete 05:08 Nitroglycerin 0.4mg PHA 02/24/25 In Process Sl Tab (Nitrostat) 06:00 Heparin 25,000 PHA 02/24/25 In Process Units/250ml D5w 06:00 Troponin I High LAB 02/24/25 Logged Sensitivity 05:32 Aspirin 325mg Tab PHA 02/24/25 Complete (Aspirin 325mg Tab) 06:00 Morphine 2mg Syg PHA 02/24/25 Complete (Morphine 2mg Syg) 06:00 Heparin 5,000 Unit PHA 02/24/25 Complete Vial (Heparin 5,000 U 06:17 Pt And Ptt LAB 02/24/25 Complete 06:18 Heparin 5,000 Unit PHA 02/24/25 Complete Vial (Heparin 5,000 U 06:30 Edm Admit Bridge Order ADM 02/24/25 Verified 06:49 Current Medications Medications (Trade) Dose Ordered Sig/Toby Route PRN Reason Start Time Stop Time Status Last Admin Dose Admin Aspirin (Aspirin 325mg Tab) 325 mg ONCE ONCE PO 02/24/25 06:00 02/24/25 06:01 DC Heparin Sodium (Porcine) (HEParin 5,000 UNIT VIAL) 3,000 unit ONCE ONCE IV 02/24/25 06:30 02/24/25 06:31 DC 02/24/25 06:38 Heparin Sodium (Porcine) (HEParin 5,000 UNIT VIAL) 5,000 unit STK-MED ONCE .ROUTE 02/24/25 06:17 02/24/25 06:17 DC Heparin Sodium/ Dextrose 250 ml @ 0 mls/hr PROTOCOL PRN IV PROTOCOL 02/24/25 06:00 02/25/25 05:59 02/24/25 06:42 Morphine Sulfate (morPHINE 2MG SYG) 2 mg ONCE ONCE IVP 02/24/25 06:00 02/24/25 06:01 DC 02/24/25 06:38 Nitroglycerin (Nitrostat) 0.4 mg Q5M PRN SL CHEST PAIN 02/24/25 06:00 Vital Signs Date Time Temp Pulse Resp B/P (MAP) Pulse Ox O2 Delivery O2 Flow Rate FiO2 02/24/25 06:19 98.2 48 19 129/74 99 Room Air* 0 21 02/24/25 05:23 98.4 50 18 125/64 98 Room Air* 0 21 02/24/25 05:00 97.9 52 16 103/59 99 Room Air 0 We will perform diagnostic labs, advanced imaging and administer medications according to the patient's complaint. Once the results are available, will review and personally interpreted the labs to rule out any acute life- threatening emergency the trach require immediate intervention and treatment. I will then re-evaluate the patient after treatment and diagnostic exams have return to determine whether the patient requires any further testing, can safely be discharged home or need further admission to hospital for additional treatment and evaluation. Reviewed labs CBC shows a hemoglobin of 11.8 BNP 7 is significant for BUN and creatinine of 19 and 0.6. First set of troponins are 18 brain natriuretic peptide is 173 Chest x-ray shows right perihilar and basilar hazy density could be prominent pulmonary artery or pulmonary vessels also seen in old chest x-rays. No acute focal infiltrate noted. I updated the patient on new EKG changes although she has some tenderness on palpation of the sternum, I explained to her that with known cardiac disease, this could be an early episode of a unstable angina, non-STEMI. And I recommended admission to the hospital for further management and patient is agreeable 6:49 a.m.-patient was [facility] by [facility]-level provider for hospitalist group for admission and further management HEART Score Response (Comments) Value History: Moderate suspicion (+1) 1 EKG: Significant ST depression 2 Age: 45-65yrs (+1) 1 Risk Factors: 3+ risk factors (+2) 2 Initial Troponin: Normal limit (0) 0 HEART Score Risk: Mod Risk for MACE (4-6) Total 6 Medical Decision Making MDM MDM: Differential diagnosis: Unstable angina, NSTEMI, GERD, atypical chest pain, pericarditis Rationale: Tests considered and ordered secondary to shared decision making include: labs, ECG and radiology Previous outside records reviewed: Old ER visits. Risk of complication and/or morbidity or mortality of patient management: None Medications-Per medication reconciliation Need for hospitalization: Patient does meet criteria for hospitalization. Need for emergency major/minor surgery: No There are no social concerns with this patient. Prescription drug management Prescriptions will include symptomatic care Patient's prior external medical records from other ER visits were reviewed by me as indicated. Prior testing and results from previous visits were reviewed. Prior tests were taken into account with medical decision making and resource utilization, independent historian/historians were used to obtain complete medical history. I independently interpreted the test that were performed, results were reviewed by me and considered findings on radiology if ordered. Medical management and examination interpretation discussions were had by me with other qualified healthcare professionals as indicated for the patient's care. Problem List Problem List: (1) Non-STEMI (non-ST elevated myocardial infarction) (2) Elevated brain natriuretic peptide (BNP) level (3) Chest pain DX & DISP Disposition: Inpatient Decision to Admit Time: 05:29 Departure Impression: Primary Impression: Non-STEMI (non-ST elevated myocardial infarction) Additional Impressions: Elevated brain natriuretic peptide (BNP) level, Chest pain Condition: Stable Additional Instructions: Patient was informed of all the diagnostic labs and procedures conducted in the emergency room today and demonstrated understanding of the results. I personally reviewed and interpreted all the diagnostic exams performed in the ER today. The patient will be admitted to the hospital for further treatment and evaluation. Disposition-admit to facility Condition-stable/guarded Course-uncertain at this time Pain status-decreased Assessment-exam unchanged Admission Certification- I certify that the patients status is appropriate and is based on my best clinical judgment and the patient's condition as documented in the medical records Referrals: CATHIE DUNBAR DO (PCP) BEAN DAVENPORT MD Feb 24, 2025 05:32
[2025-02-24 05:35] LABS: IMMATURE GRANULOCYTE ABSOLUTE 0.02 K/uL (0-1); NUCLEATED RED BLOOD CELLS 0.0 % (0.0-0.19); PLATELET COUNT (AUTO) 256 K/uL (130-400); RED BLOOD CELL COUNT(AUTO) 3.88 MIL/uL (4.00-5.50); RED CELL DISTRIBUTION WIDTH 13.9 % (11.0-15.5); WHITE BLOOD COUNT (AUTO) 7.5 K/uL (4.8-10.8)
[2025-02-24 05:50] LABS: CREATININE 0.6 mg/dL (0.5-1.0); GLOMERULAR FILTR. RATE CALC 102.0 mL/min (>90); GLUCOSE,RANDOM 147.0 mg/dL (70-105); SODIUM SERUM 140.0 mmol/L (136-145); UREA NITROGEN, BLOOD 19.0 mg/dL (7-18)
[2025-02-24 05:55] LABS: CREATINE KINASE, TOTAL 36.0 U/L (21-232)
[2025-02-24] MEDS: ASPIRIN 325MG TAB PO ONE (06:13)
[2025-02-24 06:34] LABS: INR 0.99 (0.85-1.15)
--- NOTE | 2025-02-24 06:56 | HP ---
[facility] Date of Service: Feb 24, 2025 Time of Service: 06:54 HISTORY OF PRESENT ILLNESS: [ ] admission date: 02/24/25 PCP: Agnieszka Shi DO chief complaint: Chest pain Primary claim service representative: Dr Jefry Carrasco This is a 59-year-old female presents in ED with chief complaints of chest pain. Onset started this morning at 2:00 a.m. patient was awaken with chest pain. Reports she has been having chest pain for a week. Location midsternal does not radiate,location midsternal stated the pain on arrival was 10/10 on pain scale. aggravated none: alleviating factors: none. Patient denies palpitation, dizziness, shortness for breath. 12 lead EKG on arrival showed heart rate [address] depression in the lateral Leads. As per ED physician changes in V5 and V6 were not seen in December 2024. Presence of LVH noted anterior STT wave changes were also. ER initiated heparin drip. Was given Full dose Aspirin and Morphine 2 mg IV x1. Troponin 1st set was negative. home medications: Prasugrel 10 mg po daily, Isosorbide ER 30 mg po daily, metoprolol succ. 12.5 mg po martin Atorvastatin 40 mg po HS. the patient reports be compliance with home medications as directed. Last Echo: The left ventricle is moderately dilated. Global hypokinesis of the left ventricle. LVEF is 35-40%. Stage II, diastolic dysfunction. Mild aortic regurgitation. the patient reports no chest pain at this time: she appears thin and fragile: all questions addressed. discussed plan of care. REVIEW OF SYSTEMS a 14 point ROS obtained all relevant positive documented otherwise ROS negative PAST MEDICAL HISTORY: [ ]HTN, HLD DM Type 2, PAST SURGICAL HISTORY: [ ] right BKA PAST SOCIAL HISTORY: [ ] Denies smoking tobacco products and alcohol use. Lives with ex spouse. FAMILY HISTORY: [ ] noncontributory Coded Allergies: No Known Drug Allergies (Unverified Allergy, Unknown, 09/06/18) PHYSICAL EXAM GENERAL APPEARANCE: The patient is awake, alert, and oriented, in no acute cardiopulmonary distress. NEUROLOGICAL: Cranial nerves II-XII grossly intact. Motor is 5/5 in bilateral upper and lower extremities proximal to distal. No sensory deficits. HEENT: Face is symmetric. Pupils are equal and reactive. Extraocular movements are intact. NECK: Supple. No JVD. No thyromegaly. No submental, submandibular, pre-/p ostauricular, occipital or supraclavicular lymphadenopathy. CHEST: Normal chest expansion. No Telemetry. LUNGS: Absence of any rales, rhonchi or any wheezing. CARDIOVASCULAR: Regular. S1 and S2 normal. No appreciable rubs, murmurs or gallops. ABDOMEN: Soft, nontender, and nondistended. There is no rebound, voluntary guarding, or rigidity. : Deferred. No [place]. EXTREMITIES: Non-edematous and not cyanotic. No clubbing. Good capillary refill. SKIN: No skin breakdown. Vital Sign (Last 24 Hours) 02/24/25 06:19 Temp 98.2 Pulse 48 Resp 19 B/P (MAP) 129/74 Pulse Ox 99 O2 Delivery Room Air* O2 Flow Rate 0 FiO2 21 LABS: Laboratory: Test 02/24/25 05:14 Range/Units White Blood Count 7.5 4.8-10.8 K/uL Red Blood Count 3.88 L 4.00-5.50 MIL/uL Hemoglobin 11.8 L 12.0-16.0 g/dL Hematocrit 35.9 L 36-48 % Mean Corpuscular Volume 92.5 79-99 fL Mean Corpuscular Hemoglobin 30.4 27.0-33.0 pg Mean Corpuscular Hemoglobin Concent 32.9 32.0-36.0 g/dL Red Cell Distribution Width 13.9 11.0-15.5 % Platelet Count 256 130-400 K/uL Mean Platelet Volume 11.2 H 7.5-10.5 fL Immature Granulocyte % (Auto) 0.3 0-1 % Neutrophils (%) (Auto) 40.6 40.0-77.0 % Lymphocytes (%) (Auto) 50.0 21.0-51.0 % Monocytes (%) (Auto) 7.1 3.0-13.0 % Eosinophils (%) (Auto) 1.6 0.0-8.0 % Basophils (%) (Auto) 0.4 0.0-5.0 % Neutrophils # (Auto) 3.0 1.8-7.7 K/uL Lymphocytes # (Auto) 3.7 1.0-4.8 K/uL Monocytes # (Auto) 0.5 0.1-1.0 K/uL Eosinophils # (Auto) 0.12 0.00-0.70 K/uL Basophils # (Auto) 0.03 0.00-0.20 K/uL Absolute Immature Granulocyte (auto 0.02 0-1 K/uL Nucleated Red Blood Cells 0.0 0.0-0.19 % Prothrombin Time 10.5 9.6-11.6 SEC Prothromb Time International Ratio 0.99 0.85-1.15 Activated Partial Thromboplast Time 25.9 L 26.3-35.5 SEC Sodium Level 140 136-145 mmol/L Potassium Level 3.7 3.5-5.1 mmol/L Chloride Level 108 101-111 mmol/L Carbon Dioxide Level 27 21-32 mmol/L Blood Urea Nitrogen 19 H 7-18 mg/dL Creatinine 0.6 0.5-1.0 mg/dL Glomerular Filtration Rate Calc 102 >90 mL/min Random Glucose 147 H 70-105 mg/dL Total Calcium 9.7 8.5-10.1 mg/dL Total Creatine Kinase 36 # 21-232 U/L Troponin I High Sensitivity 18 4-50 ng/L B-Type Natriuretic Peptide 173 H 0-100 pg/mL Current Medications Medications (Trade) Dose Ordered Sig/Toby Route PRN Reason Start Time Stop Time Status Last Admin Dose Admin Acetaminophen (TYLenol 325MG TAB) 650 mg Q4H PRN PO TEMPERATURE GREATER THAN 101.5 02/24/25 07:00 03/26/25 06:59 Aspirin (Aspirin 81mg Ec Tab) 81 mg DAILY PO 02/24/25 09:00 03/26/25 08:59 Atorvastatin Calcium (LIPItor 20MG) 20 mg HS PO 02/24/25 21:00 03/26/25 20:59 Famotidine (Pepcid 20mg Tab) 20 mg BID PO 02/24/25 09:00 03/26/25 08:59 Heparin Sodium/ Dextrose 250 ml @ 0 mls/hr PROTOCOL PRN IV PROTOCOL 02/24/25 06:00 02/25/25 05:59 02/24/25 06:42 7.56 MLS/HR Nitroglycerin (Nitrostat) 0.4 mg Q5M PRN SL CHEST PAIN 02/24/25 06:00 DIAGNOSTICS / RADIOLOGY: [ ] ASSESSMENT: unstable angina Rule out ACS hypercoagulable state on Prasugrel POA functional decline: s/p BKA POA moderated protein calorie malnutrition with muscle atrophy ; BMI 19 POA chronic problems MD: 2023 Essential HTN HLD DM Type 2 PLAN: [ ]] Admit: medical surgical floor condition: guarded Status: full code IVF:heplock Drip: Heparin as per protocol Resume home medications: Prasugrel 10 mg po daily on hold for now , will continue Isosorbide ER 30 mg po daily, metoprolol succ. 12.5 mg po martin Atorvastatin 40 mg po HS. the patient reports be compliance with home medica tions as directed. nitroglycerin 0.4 mg subL, as directed for chest pain. Consultants Junk Dealer: Dr Nance Imaging Last Echo: 12/2025 Labs cbc, cmp, mag+ Replace electrolytes as needed as per protocol to keep potassium above 4.0 magnesium 2.0. ac/hs monitoring with SSRI coverage PRN: MEDICATIONS Tylenol 650 mg po every 4 hrs for fever zofran 4 mg IV every 6 hrs for n/v Hydralazine 5 mg IV every 4 hrs systolic pressure > 160 bowel regiment: lactulose 20 gm PO BID PRN constipation PT services: OOB to chair Supportive measures: DVT ppx, GI ppx all questions answered time spent: > 35 min Supervising MD: Dr. Fernando Couch c/d This document was generated in part using voice recognition software, occasional wrong word or sound alike substitutions may have occurred due to the inherent limitations of voice recognition software. Read the chart carefully and recognize using context, where the substitutions have occurred. Although every effort was made to edit the content, collection advisor and typing errors may occur ADVANCED CARE PLANNING 1. Which of the following were discussed? Hospice Care - Yes / No Therapeutic options - Yes / No Advance Directives - Yes / No Other discussions - 2. Discussed with who?Patient 3. Voluntary nature of this service was explained to the patient? Yes / No 4. Amount of time spent - __25 min 5. Reviewed by Physician? (if this service was performed by NPP) Yes / No ATTESTATION BY PHYSICIAN I have seen and examined the patient. I reviewed the documentation, medical decision making, and treatment plan as noted by the mid-level provider above. I agree with the findings and plan of care. Lorraine King MD, ELIZABETH NP Feb 24, 2025 06:56
--- NOTE | 2025-02-24 07:29 | EKG ---
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 : 1965 Requested By: BEAN MOLINA Order Number: [id number] Reading MD: Niall Nance Measurements Intervals [place] Rate: 50 P: 72 [place]: 167 QRS: 0 QRSD: 95 T: 128 QT: 454 QTc: 414 Interpretive Statements Sinus rhythm LVH with secondary repolarization abnormality Probable anterior infarct, age indeterminate Compared to ECG 12/21/2024 09:52:54 Left ventricular hypertrophy now present Early repolarization now present Bradycardia, nonsinus no longer present ST (T wave) deviation no longer present Possible ischemia no longer present Myocardial infarct finding still present Electronically Signed On 02-24-2025 13:30:58 CDT by Niall Nance Please click the below link to view image of tracing.
--- NOTE | 2025-02-24 08:29 | HMCIMG ---
Exam Type: CHEST 1VW Clinical Information: chest pain Comparison: None Findings: The lungs are clear of infiltrates. The heart is enlarged. Bony and soft tissue structures of the chest wall are unremarkable. IMPRESSION: Cardiomegaly. Clear lungs.
[2025-02-24] MEDS ORDERED: ASPIRIN 81 MG EC TAB PO SCH (09:00)
[2025-02-24] MEDS ORDERED: MAGNESIUM 2GM PREMIX 50ML 50 ML IV PRN (09:30)
[2025-02-24] MEDS: FAMOTIDINE 20MG TAB PO SCH (09:54)
[2025-02-24] MEDS: ISOSORBIDE MONO 30MG SR TAB PO SCH (09:55)
--- NOTE | 2025-02-24 10:40 | NUR ---
DCP: HOME Pt currently lives with and son. Pt has a walker and wheelchair that he uses to ambulate at home. Pt states that she mostly able to complete ADLs independently only some days does she need help and her tends to help her out. PCP is Dr. Agnieszka Shi. At [place] pt will want to go home and son can assist with transportation. Addendum: 02/24/25 at 1043 by YUNIER SOLIS SS Amended: Links added.
[2025-02-24 12:37] LABS: INR 1.04 (0.85-1.15)
--- NOTE | 2025-02-24 13:23 | NUR ---
spoke to kenneth from lab in regards to remving 0900 ptt due to being incorrect patient, ptt for 1225 was 62, patient resting in bed, call light in reach
--- NOTE | 2025-02-24 16:21 | CONS ---
[facility] Cardiology Consultation Note CARDIOLOGY CONSULTATION February Chief complaint: This is a 59-year-old female who presents with chest pain. History of present illness: The patient has known coronary artery disease. She had presented with an acute coronary syndrome in July of 2024. At that time she received a 3.0 x 20 mm drug-eluting stent to the proximal LAD a 3.5 x 16 mm drug-eluting stent to the proximal circumflex artery and a 3.0 x 12 mm drug- eluting stent to the mid circumflex artery. Course was complicated by cardiogenic shock requiring placement of an Impella pump. This resulted in an ischemic leg and she had a right jsbeb-[id number]-[id number] amputation. She was then admitted with a non ST elevation VT in December of 2024 and underwent repeat catheterization with Dr. Qiu there was. This demonstrated a 70% ostial LAD stenosis widely patent stent in the proximal LAD 99% stenosis and ostial 1st diagonal artery and 90% stenosis and an ostial 2nd diagonal artery with patent stents in the proximal and mid circumflex artery and right coronary artery had an 80% distal stenosis and the PDA had an 80% ostial right PDA stenosis the right posterolateral branch had a 95% stenosis but was a small caliber vessel. At that time because of noncompliance with medical management it was recommended that she be discharged on medical management. She went home on aspirin prasugrel isosorbide mononitrate and metoprolol succinate and atorvastatin. She has not followed up in the heart Clinic office because she can not afford the visit. She states however that she has been compliant in taking her medications. Morning she awoke at 2:00 a.m. with retrosternal pain. There was no associated shortness of breath or diaphoresis. There was no pleuritic component. Pain lasted for about4 hours until she came to the emergency room. Electrocardiogram showed evidence of an old anteroseptal VT. no acute ST changes noted. Troponins x3 has been normal. He is pain-free at the present time. Past medical history: The patient also has a history of dyslipidemia hypertension and diabetes mellitus type. Surgical history: Right BKA and coronary stents as above. Social history: She is a nonsmoker nondrinker Family history: Noncontributory Allergies: No known allergies Physical exam: Blood pressure is 1 20-140 systolic heart rate has been in the 5 0-60 range. The patient is afebrile. There was no elevation of the jugular venous pressure no bruits are heard S1 normal S2 physiologically split. No murmur appreciable. Abdomen is soft. Lungs are clear. Extremities show right obokw-lzh-hpkj amputation she is alert and oriented. Laboratory studies: Potassium 3.7 BUN 19 creatinine 0.6 white count 7.5 Hemoglobin 11.8 Platelet count [id number]. INR was 1.0. Electrocardiogram: Sinus rhythm old anterior VT no acute ST changes Chest x-ray: Cardiomegaly the left costophrenic angle is obscured the right costophrenic angle is clear. Pulmonary vascular pattern appears normal. There was straightening of the left heart border consistent with LVH no pneumothorax. Assessment: 1. Chest pain for hours in duration with normal troponins and no acute ST changes 2. Remote anterior wall myocardial infarction July 2024 complicated by c ardiogenic shock requiring Impella support for PCI with subsequent ischemic leg requiring mxevd-jrn-kccw amputation 3. CAD status post stenting of the proximal LAD proximal circumflex and mid circumflex artery as above with documented progression of disease December 2024 managed medically because of concern the patient would not be compliant with dual antiplatelet therapy 4. Diabetes mellitus type 2 5. Dyslipidemia 6. Hypertension Plan: At this point there does not appear evidence of an acute coronary syndr ome. I will recommend a 2D echo to reassess ejection fraction see what medications need to be adjusted. For the time being we will continue with her home medications. Dr. Carrasco we will evaluate the patient tomorrow. If she has been compliant with therapy and ejection fraction is adequate a surgical opinion could be obtained. CITLALI GOLDBERG MD Feb 24, 2025 16:21
[2025-02-24] MEDS: ASPIRIN 81MG CHEW TAB PO ONE (17:45)
--- NOTE | 2025-02-24 18:31 | NUR ---
PATIENT STARTED COMPLAINING OF SLIGHT DISCOMFORT OF HER LEFT BACK UPPER TOOTH, IT LOOKS LIKE A BLACK PAPULE/ CYST, WHEN SHE CHEWS PATIENT RESTING IN BED, CALL LIGHT IN REACH
[2025-02-24] MEDS: NITROGLYCERIN 0.4 MG SL TAB SL PRN (19:45)
--- NOTE | 2025-02-24 22:30 | NUR ---
NO ANSWER FOR REPORT
[2025-02-25] VITALS (8 sets, daily range): BP systolic 102–129; BP diastolic 41–75; PULSE 54–71; RESP 16–20; TEMP 97.8–98.9; O2SAT 95–99
[2025-02-25 00:32] LABS: INR 1.03 (0.85-1.15)
[2025-02-25 07:11] LABS: INR 1.03 (0.85-1.15)
--- NOTE | 2025-02-25 08:17 | PN ---
[facility] CARDIOLOGY PROGRESS NOTE Date Patient Seen: Feb 25, 2025 Time of Visit: 08:09 Interval History: [No acute events overnight , the patient denies any cardiac symptoms or anginal equivalents, we are pending 2Decho results. ] Physical Examination: GENERAL: [No acute distress.] HEAD: [Normal with no signs of head trauma.] EYES: [PERRLA, EOMI, conjunctiva and sclera normal.] ENT: [Hearing grossly intact, normal oropharynx.] NECK: [Supple without JVD. There is no tenderness, lymphadenopathy, or masses. No thyromegaly. Normal carotid upstrokes without bruits.] LUNGS: [Clear breath sounds bilaterally. No wheezes, or rhonchi.] HEART: [Normal rate and rhythm. Normal S1 and S2 without mumurs, gallop or rub.] VASC: [Peripheral pulses +2 bilaterally.] ABD: [Bowel sounds normal, soft, nontender, no masses, no organomegaly. No audible bruits.] : [Not examined] LYMPH: [No lymphadenopathy noted.] EXT: [No clubbing, cyanosis or edema.] SKIN: [No rashes or lesions noted.] NEURO: [Awake, alert, and oriented x3. No focal sensory or strength deficits noted.] Laboratory: [ ] Hematology Labs: Test 02/24/25 05:14 Range/Units White Blood Count 7.5 4.8-10.8 K/uL Red Blood Count 3.88 L 4.00-5.50 MIL/uL Hemoglobin 11.8 L 12.0-16.0 g/dL Hematocrit 35.9 L 36-48 % Mean Corpuscular Volume 92.5 79-99 fL Mean Corpuscular Hemoglobin 30.4 27.0-33.0 pg Mean Corpuscular Hemoglobin Concent 32.9 32.0-36.0 g/dL Red Cell Distribution Width 13.9 11.0-15.5 % Platelet Count 256 130-400 K/uL Mean Platelet Volume 11.2 H 7.5-10.5 fL Immature Granulocyte % (Auto) 0.3 0-1 % Neutrophils (%) (Auto) 40.6 40.0-77.0 % Lymphocytes (%) (Auto) 50.0 21.0-51.0 % Monocytes (%) (Auto) 7.1 3.0-13.0 % Eosinophils (%) (Auto) 1.6 0.0-8.0 % Basophils (%) (Auto) 0.4 0.0-5.0 % Neutrophils # (Auto) 3.0 1.8-7.7 K/uL Lymphocytes # (Auto) 3.7 1.0-4.8 K/uL Monocytes # (Auto) 0.5 0.1-1.0 K/uL Eosinophils # (Auto) 0.12 0.00-0.70 K/uL Basophils # (Auto) 0.03 0.00-0.20 K/uL Absolute Immature Granulocyte (auto 0.02 0-1 K/uL Nucleated Red Blood Cells 0.0 0.0-0.19 % Chemistry Labs: Test 02/25/25 05:24 02/24/25 18:50 02/24/25 05:14 Range/Units Whole Blood Glucose 104 70-110 MG/DL Troponin I High Sensitivity 16 4-50 ng/L Sodium Level 140 136-145 mmol/L Potassium Level 3.7 3.5-5.1 mmol/L Chloride Level 108 101-111 mmol/L Carbon Dioxide Level 27 21-32 mmol/L Blood Urea Nitrogen 19 H 7-18 mg/dL Creatinine 0.6 0.5-1.0 mg/dL Glomerular Filtration Rate Calc 102 >90 mL/min Random Glucose 147 H 70-105 mg/dL Total Calcium 9.7 8.5-10.1 mg/dL Total Creatine Kinase 36 # 21-232 U/L B-Type Natriuretic Peptide 173 H 0-100 pg/mL Coagulation Labs: Test 02/25/25 06:44 Range/Units Prothrombin Time 10.9 9.6-11.6 SEC Prothromb Time International Ratio 1.03 0.85-1.15 Activated Partial Thromboplast Time 76.6 H 26.3-35.5 SEC Diagnostics / Radiology: [Copy/Paste Echos/Imaging Report here] Impression and Plan: [1. Unstable Angina 2. Remote anterior wall myocardial infarction July 2024 complicated by cardiogenic shock requiring Impella support for PCI with subsequent ischemic leg requiring ujshh-imk-qwtr amputation 3. CAD status post stenting of the proximal LAD proximal circumflex and mid circumflex artery as above with documented progression of disease December 2024 managed medically because of concern the patient would not be compliant with dual antiplatelet therapy 4. Diabetes mellitus type 2 5. Dyslipidemia 6. Hypertension ] #Unstable angina The patient presented with chest pain ACS has been ruled out , troponin has been negative Currently denies any chest pain , palpitations, dyspnea or any other anginal equivalents. We will continue with medical management for now ASA 81 mg daily , Prasugrel 10 mg daily m Atorvastatin 40 mg daily We will increase Toprol XL to 25 mg daily Given ACS was ruled out we will stop IV heparin Pending 2D echo results Thank you for this consult cardiology will continue to follow along , formal recommendations pending 2Decho results Jefry Carrasco MD ATTESTATION BY PHYSICIAN I have seen and examined the patient, reviewed the above documentation, participated in medical decision making, made necessary modifications, and agree with the treatment plan as documented by my mid-level provider above. MD JESSY Catalan JAMES R MD Feb 25, 2025 08:17
--- NOTE | 2025-02-25 09:01 | EKG ---
[facility] Test Date: 2025-02-25 Test Time: 03:19:27 Pat Name: SHAHZAD PAGE Department: 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: [id number] : 1965 Requested By: CITLALI GOLDBERG Order Number: [id number] Reading MD: Shy Sotelo Measurements Intervals [place] Rate: 69 P: 60 MA: 156 QRS: 37 QRSD: 92 T: 118 QT: 430 QTc: 460 Interpretive Statements Normal sinus rhythm ST & T wave abnormality, consider lateral ischemia Prolonged QT Compared to ECG 02/24/2025 05:18:13 ST (T wave) deviation now present Possible ischemia now present Prolonged QT interval now present Left ventricular hypertrophy no longer present Early repolarization no longer present Myocardial infarct finding no longer present Electronically Signed On 02-25-2025 09:11:10 CDT by Shy Sotelo Please click the below link to view image of tracing.
--- NOTE | 2025-02-25 09:42 | PN ---
[facility] PROGRESS NOTE Date of Service: Feb 25, 2025 Time of Service: 09:39 SUBJECTIVE: [ ] admission date: 02/24/25 PCP: Agnieszka Shi DO chief complaint: Chest pain Primary campus coordinator: Dr Jefry Carrasco This is a 59-year-old female presents in ED with chief complaints of chest pain. Onset started this morning at 2:00 a.m. patient was awaken with chest pain. Reports she has been having chest pain for a week. Location midsternal does not radiate,location midsternal stated the pain on arrival was 10/10 on pain scale. aggravated none: alleviating factors: none. Patient denies palpitation, dizziness, shortness for breath. 12 lead EKG on arrival showed heart rate [address] depression in the lateral Leads. As per ED physician changes in V5 and V6 were not seen in December 2024. Presence of LVH noted anterior STT wave changes were also. ER initiated heparin drip. Was given Full dose Aspirin and Morphine 2 mg IV x1. Troponin 1st set was negative. 02/25/25 patient was seen earlier patient reports she had chest pain overnight 3:00 a.m. patient was given nitroglycerin: continue on Heparin drip; Echo pending no chest pain at this time. she is fully alert oriented x3. REVIEW OF SYSTEMS a 14 point ROS obtained all relevant positive documented otherwise ROS negative PHYSICAL EXAM GENERAL APPEARANCE: The patient is awake, alert, and oriented, in no acute cardiopulmonary distress. NEUROLOGICAL: Cranial nerves II-XII grossly intact. Motor is 5/5 in bilateral upper and lower extremities proximal to distal. No sensory deficits. HEENT: Face is symmetric. Pupils are equal and reactive. Extraocular movements are intact. NECK: Supple. No JVD. No thyromegaly. No submental, submandibular, pre- /postauricular, occipital or supraclavicular lymphadenopathy. CHEST: Normal chest expansion. No Telemetry. LUNGS: Absence of any rales, rhonchi or any wheezing. CARDIOVASCULAR: Regular. S1 and S2 normal. No appreciable rubs, murmurs or gallops. ABDOMEN: Soft, nontender, and nondistended. There is no rebound, voluntary guarding, or rigidity. : Deferred. No [place]field. EXTREMITIES: Non-edematous and not cyanotic. No clubbing. Good capillary refill. SKIN: No skin breakdown. Vital Signs (last 8hr) Date Time Temp Pulse Resp B/P (MAP) Pulse Ox O2 Delivery O2 Flow Rate FiO2 02/25/25 08:22 98.2 69 16 129/71 99 02/25/25 04:00 98.1 71 20 109/66 95 Room Air LABS: Laboratory: Test 02/25/25 06:44 02/25/25 05:24 02/24/25 18:50 02/24/25 05:14 Range/Units Prothrombin Time 10.9 9.6-11.6 SEC Prothromb Time International Ratio 1.03 0.85-1.15 Activated Partial Thromboplast Time 76.6 H 26.3-35.5 SEC Whole Blood Glucose 104 70-110 MG/DL Troponin I High Sensitivity 16 4-50 ng/L White Blood Count 7.5 4.8-10.8 K/uL Red Blood Count 3.88 L 4.00-5.50 MIL/uL Hemoglobin 11.8 L 12.0-16.0 g/dL Hematocrit 35.9 L 36-48 % Mean Corpuscular Volume 92.5 79-99 fL Mean Corpuscular Hemoglobin 30.4 27.0-33.0 pg Mean Corpuscular Hemoglobin Concent 32.9 32.0-36.0 g/dL Red Cell Distribution Width 13.9 11.0-15.5 % Platelet Count 256 130-400 K/uL Mean Platelet Volume 11.2 H 7.5-10.5 fL Immature Granulocyte % (Auto) 0.3 0-1 % Neutrophils (%) (Auto) 40.6 40.0-77.0 % Lymphocytes (%) (Auto) 50.0 21.0-51.0 % Monocytes (%) (Auto) 7.1 3.0-13.0 % Eosinophils (%) (Auto) 1.6 0.0-8.0 % Basophils (%) (Auto) 0.4 0.0-5.0 % Neutrophils # (Auto) 3.0 1.8-7.7 K/uL Lymphocytes # (Auto) 3.7 1.0-4.8 K/uL Monocytes # (Auto) 0.5 0.1-1.0 K/uL Eosinophils # (Auto) 0.12 0.00-0.70 K/uL Basophils # (Auto) 0.03 0.00-0.20 K/uL Absolute Immature Granulocyte (auto 0.02 0-1 K/uL Nucleated Red Blood Cells 0.0 0.0-0.19 % Sodium Level 140 136-145 mmol/L Potassium Level 3.7 3.5-5.1 mmol/L Chloride Level 108 101-111 mmol/L Carbon Dioxide Level 27 21-32 mmol/L Blood Urea Nitrogen 19 H 7-18 mg/dL Creatinine 0.6 0.5-1.0 mg/dL Glomerular Filtration Rate Calc 102 >90 mL/min Random Glucose 147 H 70-105 mg/dL Total Calcium 9.7 8.5-10.1 mg/dL Total Creatine Kinase 36 # 21-232 U/L B-Type Natriuretic Peptide 173 H 0-100 pg/mL Current Medications Medications (Trade) Dose Ordered Sig/Toby Route PRN Reason Start Time Stop Time Status Last Admin Dose Admin Acetaminophen (TYLenol 325MG TAB) 650 mg Q4H PRN PO TEMPERATURE GREATER THAN 101.5 02/24/25 07:00 03/26/25 06:59 02/25/25 03:50 650 MG Aspirin (Aspirin 81mg Chew Tab) 81 mg DAILY PO 02/25/25 09:00 03/27/25 08:59 Aspirin (Aspirin 81mg Ec Tab) 81 mg DAILY PO 02/24/25 09:00 02/24/25 08:52 DC Atorvastatin Calcium (LIPItor 20MG) 20 mg HS PO 02/24/25 21:00 02/24/25 08:52 DC Atorvastatin Calcium (LIPItor 40MG) 40 mg HS PO 02/24/25 21:00 03/26/25 20:59 02/24/25 21:20 40 MG Citalopram Hydrobromide (CeleXA 20MG TAB) 10 mg DAILY PO 02/25/25 09:00 03/27/25 08:59 Famotidine (Pepcid 20mg Tab) 20 mg BID PO 02/24/25 09:00 03/26/25 08:59 02/24/25 21:20 20 MG Heparin Sodium/ Dextrose 250 ml @ 0 mls/hr PROTOCOL PRN IV PROTOCOL 02/24/25 06:00 02/25/25 05:59 DC 02/25/25 01:09 7.36 MLS/HR Insulin Human Regular (humuLIN R 100 UNIT/ML 3ML) INSULIN SLIDING SCAL... ACHS SQ 02/24/25 11:30 03/26/25 11:29 02/24/25 17:19 6 UNIT Isosorbide Mononitrate (Imdur 30mg Sr) 30 mg DAILY PO 02/24/25 09:00 03/26/25 08:59 02/24/25 09:55 30 MG Magnesium Sulfate 50 ml @ 0 mls/hr PROTOCOL PRN IV low mag level 02/24/25 09:30 03/26/25 09:29 Metoprolol Succinate (TopROL XL) 12.5 mg DAILY PO 02/24/25 09:00 03/26/25 08:59 Nitroglycerin (Nitrostat) 0.4 mg Q5M PRN SL CHEST PAIN 02/24/25 06:00 02/25/25 03:17 0.4 MG Potassium Chloride 100 ml @ 50 mls/hr AD PRN IV POTASSIUM PROTOCOL 02/24/25 09:30 03/26/25 09:29 Prasugrel (Effient 10mg) 10 mg DAILY PO 02/25/25 09:00 03/27/25 08:59 DIAGNOSTICS / RADIOLOGY: [ ] ASSESSMENT: unstable angina Rule out ACS hypercoagulable state on Prasugrel POA functional decline: s/p BKA POA moderated protein calorie malnutrition with muscle atrophy ; BMI 19 POA chronic problems [place]: 2023 Essential HTN HLD DM Type 2 PLAN: [ ]] Admit: medical surgical floor condition: guarded Status: full code IVF:heplock Drip: Heparin as per protocol Resume home medications: Prasugrel 10 mg po daily on hold for now , will co ntinue Isosorbide ER 30 mg po daily, metoprolol succ. 12.5 mg po martin Atorvastatin 40 mg po HS. the patient reports be compliance with home medications as directed. nitroglycerin 0.4 mg subL, as directed for chest pain. Consultants Regulatory Assistant: Dr Nance /[facility] Last Echo: 12/2025 repeat ECHO pending Labs cbc, cmp, mag+ Replace electrolytes as needed as per protocol to keep potassium above 4.0 magnesium 2.0. ac/hs monitoring with SSRI coverage PT services: OOB to chair Supportive measures: DVT ppx, GI ppx all questions answered Supervising MD: Dr. King P c/d This document was generated in part using voice recognition software, occasional wrong word or sound alike substitutions may have occurred due to the inherent limitations of voice recognition software. Read the chart carefully and recognize using context, where the substitutions have occurred. Although every effort was made to edit the content, senior customer service representative and typing errors may occur ATTESTATION BY PHYSICIAN I have seen and examined the patient. I reviewed the documentation, medical decision making, and treatment plan as noted by the mid-level provider above. I agree with the findings and plan of care. Lorraine King MD, ELIZABETH NP Feb 25, 2025 09:42
[2025-02-25] MEDS: PRASUGREL HCL 10 MG TABLET PO SCH (09:57)
[2025-02-25] MEDS: ASPIRIN 81MG CHEW TAB PO SCH (09:57)
[2025-02-25 13:12] LABS: APPEARANCE,URINE CLEAR (CLEAR); GLUCOSE, URINE (UA) 300 mg/dL (NEGATIVE); LEUKOCYTE ESTERASE ,URINE 25 Leu/uL (NEGATIVE); NITRATE,URINE NEGATIVE (NEGATIVE); OCCULT BLOOD,URINE NEGATIVE (NEGATIVE)
[2025-02-25 13:18] LABS: ADD UA MICROSCOPIC YES
[2025-02-25 13:21] LABS: SQUAMOUS EPITHELIAL CELL,UR FEW /HPF (0-2)
--- NOTE | 2025-02-25 14:07 | HMCSR ---
APPROVED REPORT EXAM: LIMITED Two-dimensional and M-mode echocardiogram. INDICATION Assess LV Function 2D Dimensions LVED Vol(simp.)135.0 mL LVES Vol(simp.)74.0 mL LVEF(%, simp.)45 % Deformation Strain Apical 4-14.4 % Apical 2-13.7 % Apical 3-14.8 % Global Strain-14.3 % Left Ventricle Left ventricular cavity size is normal. Anteroseptal, anterolateral lucas are hypokinetic. There is n ormal left ventricular wall thickness. LVEF is 40-45%. Unable to assess diastology due to atrial arrh ythmia. Right Ventricle The right ventricular systolic function is normal. Aortic Valve Aortic valve opens well. Mitral Valve Mitral valve leaflets are mildly thickened. Mitral valve opens well. Pericardium No pericardial effusion. Other Information Quality : ExcellentRhythm : Atrial Fibrillation Conclusion Limited echocardiogram follow up study. LVEF is 40-45%. Anteroseptal, anterolateral lucas are hypokinetic.
[2025-02-26 03:42] VITALS: BP 112/58; PULSE 71; RESP 20; TEMP 98
[2025-02-26 04:38] LABS: IMMATURE GRANULOCYTE ABSOLUTE 0.02 K/uL (0-1); NUCLEATED RED BLOOD CELLS 0.0 % (0.0-0.19); PLATELET COUNT (AUTO) 245 K/uL (130-400); RED BLOOD CELL COUNT(AUTO) 3.76 MIL/uL (4.00-5.50); RED CELL DISTRIBUTION WIDTH 13.5 % (11.0-15.5); WHITE BLOOD COUNT (AUTO) 8.0 K/uL (4.8-10.8)
[2025-02-26 05:03] LABS: ASPARTATE AMINOTRANSFERASE 16.0 U/L (10-37); CREATININE 0.4 mg/dL (0.5-1.0); GLOMERULAR FILTR. RATE CALC 113.0 mL/min (>90); GLUCOSE,RANDOM 94.0 mg/dL (70-105); SODIUM SERUM 141.0 mmol/L (136-145); TOTAL PROTEIN, SERUM 6.4 g/dL (6.0-8.3); UREA NITROGEN, BLOOD 14.0 mg/dL (7-18)
[2025-02-26 08:00] VITALS: BP 122/70; PULSE 63; RESP 19; TEMP 98.2; O2SAT 96
--- NOTE | 2025-02-26 09:09 | PN ---
[facility] CARDIOLOGY PROGRESS NOTE Date Patient Seen: Feb 26, 2025 Time of Visit: 08:57 Interval History: Overnight the patient was endorsing left anterior chest pain, review of telemetry shows no events with a heart rate of 60 beats per minute, 2D echocardiogram revealed a hypokinetic anteroseptal and anterolateral wall. LVEF 40-45% (unchanged from prior July 2024), the patient was assessed at her bedside this morning and now she denies any further chest pain, palpitations dyspnea or any other anginal equivalents Physical Examination: GENERAL: [No acute distress.] HEAD: [Normal with no signs of head trauma.] EYES: [PERRLA, EOMI, conjunctiva and sclera normal.] ENT: [Hearing grossly intact, normal oropharynx.] NECK: [Supple without JVD. There is no tenderness, lymphadenopathy, or masses. No thyromegaly. Normal carotid upstrokes without bruits.] LUNGS: [Clear breath sounds bilaterally. No wheezes, or rhonchi.] HEART: [Normal rate and rhythm. Normal S1 and S2 without mumurs, gallop or rub.] VASC: [Peripheral pulses +2 bilaterally.] ABD: [Bowel sounds normal, soft, nontender, no masses, no organomegaly. No audible bruits.] : [Not examined] LYMPH: [No lymphadenopathy noted.] EXT: [No clubbing, cyanosis or edema. Right BKA] SKIN: [No rashes or lesions noted.] NEURO: [Awake, alert, and oriented x3. No focal sensory or strength deficits noted.] Laboratory: [ ] Hematology Labs: Test 02/26/25 03:41 Range/Units White Blood Count 8.0 4.8-10.8 K/uL Red Blood Count 3.76 L 4.00-5.50 MIL/uL Hemoglobin 11.4 L 12.0-16.0 g/dL Hematocrit 34.7 L 36-48 % Mean Corpuscular Volume 92.3 79-99 fL Mean Corpuscular Hemoglobin 30.3 27.0-33.0 pg Mean Corpuscular Hemoglobin Concent 32.9 32.0-36.0 g/dL Red Cell Distribution Width 13.5 11.0-15.5 % Platelet Count 245 130-400 K/uL Mean Platelet Volume 11.4 H 7.5-10.5 fL Immature Granulocyte % (Auto) 0.3 0-1 % Neutrophils (%) (Auto) 60.0 40.0-77.0 % Lymphocytes (%) (Auto) 34.0 21.0-51.0 % Monocytes (%) (Auto) 4.5 3.0-13.0 % Eosinophils (%) (Auto) 0.9 0.0-8.0 % Basophils (%) (Auto) 0.3 0.0-5.0 % Neutrophils # (Auto) 4.8 1.8-7.7 K/uL Lymphocytes # (Auto) 2.7 1.0-4.8 K/uL Monocytes # (Auto) 0.4 0.1-1.0 K/uL Eosinophils # (Auto) 0.07 0.00-0.70 K/uL Basophils # (Auto) 0.02 0.00-0.20 K/uL Absolute Immature Granulocyte (auto 0.02 0-1 K/uL Nucleated Red Blood Cells 0.0 0.0-0.19 % Chemistry Labs: Test 02/26/25 05:15 02/26/25 03:41 02/24/25 18:50 Range/Units Whole Blood Glucose 90 70-110 MG/DL Sodium Level 141 136-145 mmol/L Potassium Level 3.6 3.5-5.1 mmol/L Chloride Level 105 101-111 mmol/L Carbon Dioxide Level 27 21-32 mmol/L Blood Urea Nitrogen 14 7-18 mg/dL Creatinine 0.4 L 0.5-1.0 mg/dL Glomerular Filtration Rate Calc 113 >90 mL/min Random Glucose 94 70-105 mg/dL Total Calcium 9.5 8.5-10.1 mg/dL Magnesium Level 2.10 1.80-2.40 mg/dL Total Bilirubin 0.6 0.2-1.0 mg/dL Aspartate Amino Transf (AST/SGOT) 16 10-37 U/L Alanine Aminotransferase (ALT/SGPT) 20 12-78 U/L Alkaline Phosphatase 64 50-136 U/L Total Protein 6.4 6.0-8.3 g/dL Albumin 3.2 L 3.5-5.0 g/dL Troponin I High Sensitivity 16 4-50 ng/L Coagulation Labs: Test 02/25/25 23:23 02/25/25 06:44 Range/Units Activated Partial Thromboplast Time 25.5 #L 26.3-35.5 SEC Prothrombin Time 10.9 9.6-11.6 SEC Prothromb Time International Ratio 1.03 0.85-1.15 Diagnostics / Radiology: [Copy/Paste Echos/Imaging Report here] Impression and Plan: 1. Unstable Angina 2. Remote anterior wall myocardial infarction July 2024 complicated by cardiogenic shock requiring Impella support for PCI with subsequent ischemic leg requiring [id number] amputation 3. CAD status post stenting of the proximal LAD proximal circumflex and mid circumflex artery as above with documented progression of disease December 2024 managed medically because of concern the patient would not be compliant with dual antiplatelet therapy 4. Diabetes mellitus type 2 5. Dyslipidemia 6. Hypertension ] #Angina The patient presented with chest pain ACS has been ruled out , troponin has been negative Currently denies any chest pain , palpitations, dyspnea or any other anginal equivalents. ASA 81 mg daily , Prasugrel 10 mg daily ,Atorvastatin 40 mg daily, Imdur 30 mg daily, and Toprol XL to 25 mg daily Given ACS was ruled out we will stop IV heparin 2D echocardiogram revealed a hypokinetic anteroseptal and anterolateral wall. LVEF 40-45% (unchanged from prior July 2024) Overnight the patient endorsed ongoing left anterior chest pain Due to the patient's ongoing symptoms we will proceed with a Lexiscan stress test Keep NPO after midnight and avoid caffeinated beverages Formal recs pending Lexiscan stress test Keep on telemetry Thank you for this consult cardiology will continue to follow along , formal recommendations Lexiscan stress test results Jefry Carrasco MD ATTESTATION BY PHYSICIAN I have seen and examined the patient, reviewed the above documentation, participated in medical decision making, made necessary modifications, and agree with the treatment plan as documented by my mid-level provider above. MD JESSY Catalan JAMES R MD Feb 26, 2025 09:09
--- NOTE | 2025-02-26 09:41 | NUR ---
notified NCIHOLAS Cerda of K 3.6, she voiced she would enter orders for oral replacement
[2025-02-26] MEDS ORDERED: PoTASSium chl 10% ELIXIR 20MEQ 20 MEQ/15 ML UDCUP PO PRN (11:30)
--- NOTE | 2025-02-26 11:36 | DS ---
Discharge Summary Hospital Course Summary: admission date: 02/24/25 PCP: Agnieszka Shi DO chief complaint: Chest pain Primary spool worker: Dr Jefry Carrasco This is a 59-year-old female presents in ED with chief complaints of chest pain. Onset started this morning at 2:00 a.m. patient was awaken with chest pain. Reports she has been having chest pain for a week. Location midsternal does not radiate,location midsternal stated the pain on arrival was 10/10 on pain scale. aggravated none: alleviating factors: none. Patient denies palpitation, dizziness, shortness for breath. 12 lead EKG on arrival showed heart rate [address] depression in the lateral Leads. As per ED physician changes in V5 and V6 were not seen in December 2024. Presence of LVH noted anterior STT wave changes were also. ER initiated heparin drip. Was given Full dose Aspirin and Morphine 2 mg IV x1. Troponin 1st set was negative. 02/25/25 patient was seen earlier patient reports she had chest pain overnight 3:00 a.m. patient was given nitroglycerin: continue on Heparin drip; Echo pending no chest pain at this time. she is fully alert oriented x3. 02/26/25 2D echocardiogram revealed a hypokinetic anteroseptal and anterolateral wall. LVEF 40-45%, the patient denies any cardiac symptoms or chest pain. Dr Carrasco recommendations: medical management for now ASA 81 mg daily , Prasugrel 10 mg daily ,Atorvastatin 40 mg daily, Imdur 30 mg daily changed Toprol XL to 25 mg daily Patient is hemodynamically stable Currently denies any chest pain , palpitations, dyspnea Procedure(s): REASON: Reassess LV function ORDERING PHYSICIAN: CITLALI GOLDBERG MD PROCEDURE: ECHO FU LD - ECHO 2-D F/U-LTD APPROVED REPORT EXAM: LIMITED Two-dimensional and M-mode echocardiogram. INDICATION Assess LV Function 2D Dimensions LVED Vol(simp.) 135.0 mL LVES Vol(simp.) 74.0 mL LVEF(%, simp.) 45 % Deformation Strain Apical 4 -14.4 % Apical 2 -13.7 % Apical 3 -14.8 % Global Strain -14.3 % Left Ventricle Left ventricular cavity size is normal. Anteroseptal, anterolateral lucas are hypokinetic. There is normal left ventricular wall thickness. LVEF is 40-45%. Unable to assess diastology due to atrial arrhythmia. Right Ventricle The right ventricular systolic function is normal. Aortic Valve Aortic valve opens well. Mitral Valve Mitral valve leaflets are mildly thickened. Mitral valve opens well. Pericardium No pericardial effusion. Other Information Quality : Excellent Rhythm : Atrial Fibrillation Conclusion Limited echocardiogram follow up study. LVEF is 40-45%. Anteroseptal, anterolateral lucas are hypokinetic. 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 PROCEDURES: none IMAGING (S) report attached to summary :echo MICROBIOLOGY: report attached to summary; ACTIVITY: ab miles HOME MEDICATIONS reviewed CHANGES ON HOME MEDICATIONS dosage Toprol xl NEW MEDICATIONS; Toprol Xl 25 mg po daily, asa 81 mg po daily TEACHING: fall precaution Emergency instructions: The patient was instructed to present to the nearest Emergency Department or call 911 should their symptoms return or worsen. Home Medications: Active Scripts Prasugrel HCl (Effient) 10 Mg Tablet, 10 MG PO DAILY, #30 TAB 0 Refills Prov:TOMEKA SCHULTE 12/23/24 Metoprolol Succinate (Toprol Xl) 25 Mg Tab.er.24h, 12.5 MG PO DAILY, #30 TAB 0 Refills Prov:TOMEKA SCHULTEPCNP 12/23/24 [Isosorbide Phillips 30MG Sr Tab] 30 MG TAB.ER.24H No Conflict Check, 30 MG PO DAILY, #30 0 Refills Prov:TOMEKA SCHULTE 12/23/24 Pantoprazole Sodium (Protonix) 40 Mg Ectab, 1 TAB PO DAILY for 30 Days, #30 TAB 0 Refills Prov:JESSE SOSA MD 11/09/24 Reported Medications [Tramadol Hcl ] No Conflict Check, 50 MG PO Q6HPRN PRN for PAIN 12/20/24 Dapagliflozin Propanediol (Farxiga) 10 Mg Tablet, 1 TAB PO DAILY for 30 Days, #30 TAB 0 Refills 12/20/24 Ondansetron HCl (Ondansetron HCl) 4 Mg Tablet, 1 TAB PO Q6HPRN PRN for nausea/vomiting, #10 TAB 0 Refills 12/20/24 Escitalopram Oxalate (Escitalopram Oxalate) 5 Mg Tablet, 1 TAB PO DAILY for 30 Days, #30 TAB 0 Refills 12/20/24 Atorvastatin Calcium (LIPITOR) 40 Mg Tablet, 1 TAB PO HS for 30 Days, #30 TAB 0 Refills 09/12/24 Discontinued Reported Medications Gabapentin (Gabapentin) 100 Mg Capsule, 1 CAP PO TID for 30 Days, #90 CAP 0 Refills 11/06/24 New Medications: Metoprolol Succinate (Toprol Xl) 25 Mg Tab.er.24h 1 TAB PO DAILY for 30 Days, #30 TAB 0 Refills Aspirin (Aspirin 81MG Chew Tab) 81 Mg Tab.chew 81 MG PO DAILY for 30 Days, #30 TAB.CHEW Continued Medications: Atorvastatin Calcium (Lipitor) 40 Mg Tablet 1 TAB PO HS for 30 Days, #30 TAB 0 Refills Dapagliflozin Propanediol (Farxiga) 10 Mg Tablet 1 TAB PO DAILY for 30 Days, #30 TAB 0 Refills Escitalopram Oxalate (Escitalopram Oxalate) 5 Mg Tablet 1 TAB PO DAILY for 30 Days, #30 TAB 0 Refills [Isosorbide Phillips 30MG Sr Tab] () 30 MG TAB.ER.24H 30 MG PO DAILY, #30 0 Refills Ondansetron HCl (Ondansetron HCl) 4 Mg Tablet 1 TAB PO Q6HPRN PRN for nausea/vomiting, #10 TAB 0 Refills Pantoprazole Sodium (Protonix) 40 Mg Ectab 1 TAB PO DAILY for 30 Days, #30 TAB 0 Refills Prasugrel HCl (Effient) 10 Mg Tablet 10 MG PO DAILY, #30 TAB 0 Refills [Tramadol Hcl ] () 50 MG PO Q6HPRN PRN for PAIN Discontinued Medications: Metoprolol Succinate (Toprol Xl) 25 Mg Tab.er.24h 12.5 MG PO DAILY, #30 TAB 0 Refills Time spent arranging discharge: 31-60 minutes ATTESTATION BY PHYSICIAN I have seen and examined the patient. I reviewed the documentation, medical decision making, and treatment plan as noted by the mid-level provider above. I agree with the findings and plan of care. MAIKEL DISLA MD, ELIZABETH NP Feb 26, 2025 11:36
[2025-02-26] MEDS: PoTASSium chloRIDE 20MEQ ER 20 MEQ ERTAB PO PRN (11:54)
[2025-02-26 12:00] VITALS: BP 123/77; PULSE 63; RESP 19; TEMP 98
[2025-02-26 16:00] VITALS: BP 119/66; PULSE 59; RESP 19; TEMP 98.3
--- NOTE | 2025-02-26 16:07 | PN ---
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 Onset started this morning at 2:00 a.m. patient was awaken with chest pain. Reports she has been having chest pain for a week. Location midsternal does not radiate,location midsternal stated the pain on arrival was 10/10 on pain scale. aggravated none: alleviating factors: none. Patient denies palpitation, dizziness, shortness for breath. 12 lead EKG on arrival showed heart rate [address] depression in the lateral Leads. As per ED physician changes in V5 and V6 were not seen in December 2024. Presence of LVH noted anterior STT wave changes were also. ER initiated heparin drip. Was given Full dose Aspirin and Morphine 2 mg IV x1. Troponin 1st set was negative. 02/25/25 patient was seen earlier patient reports she had chest pain overnight 3:00 a.m. patient was given nitroglycerin: continue on Heparin drip; Echo pending no chest pain at this time. she is fully alert oriented x3. 02/26/25 2D echocardiogram revealed a hypokinetic anteroseptal and anterolateral wall. LVEF 40-45%, the patient denies any cardiac symptoms or chest pain. Dr Osorio recommendations: lexiscan in am medical management for now ASA 81 mg daily , Prasugrel 10 mg daily ,Atorvastatin 40 mg daily, Imdur 30 mg daily changed Toprol XL to 25 mg daily patient is fully awake alert oriented x3. out of bed to chair with meals. Denied chest pain palpitation dyspnea. REVIEW OF SYSTEMS a 14 point ROS obtained all relevant positive documented otherwise ROS negative PHYSICAL EXAM GENERAL APPEARANCE: The patient is awake, alert, and oriented, in no acute cardiopulmonary distress. NEUROLOGICAL: Cranial nerves II-XII grossly intact. Motor is 5/5 in bilateral upper and lower extremities proximal to distal. No sensory deficits. HEENT: Face is symmetric. Pupils are equal and reactive. Extraocular movements are intact. NECK: Supple. No JVD. No thyromegaly. No submental, submandibular, pre- /postauricular, occipital or supraclavicular lymphadenopathy. CHEST: Normal chest expansion. No Telemetry. LUNGS: Absence of any rales, rhonchi or any wheezing. CARDIOVASCULAR: Regular. S1 and S2 normal. No appreciable rubs, murmurs or gallops. ABDOMEN: Soft, nontender, and nondistended. There is no rebound, voluntary guarding, or rigidity. : Deferred. No Whitfield. EXTREMITIES: Non-edematous and not cyanotic. No clubbing. Good capillary refill. SKIN: No skin breakdown. Vital Signs (last 8hr) Date Time Temp Pulse Resp B/P (MAP) Pulse Ox O2 Delivery O2 Flow Rate FiO2 02/26/25 12:00 98.1 63 19 123/77 100 Room Air 21 LABS: Laboratory: Test 02/26/25 15:03 02/26/25 03:41 02/25/25 23:23 02/25/25 12:30 Range/Units Whole Blood Glucose 134 H 70-110 MG/DL White Blood Count 8.0 4.8-10.8 K/uL Red Blood Count 3.76 L 4.00-5.50 MIL/uL Hemoglobin 11.4 L 12.0-16.0 g/dL Hematocrit 34.7 L 36-48 % Mean Corpuscular Volume 92.3 79-99 fL Mean Corpuscular Hemoglobin 30.3 27.0-33.0 pg Mean Corpuscular Hemoglobin Concent 32.9 32.0-36.0 g/dL Red Cell Distribution Width 13.5 11.0-15.5 % Platelet Count 245 130-400 K/uL Mean Platelet Volume 11.4 H 7.5-10.5 fL Immature Granulocyte % (Auto) 0.3 0-1 % Neutrophils (%) (Auto) 60.0 40.0-77.0 % Lymphocytes (%) (Auto) 34.0 21.0-51.0 % Monocytes (%) (Auto) 4.5 3.0-13.0 % Eosinophils (%) (Auto) 0.9 0.0-8.0 % Basophils (%) (Auto) 0.3 0.0-5.0 % Neutrophils # (Auto) 4.8 1.8-7.7 K/uL Lymphocytes # (Auto) 2.7 1.0-4.8 K/uL Monocytes # (Auto) 0.4 0.1-1.0 K/uL Eosinophils # (Auto) 0.07 0.00-0.70 K/uL Basophils # (Auto) 0.02 0.00-0.20 K/uL Absolute Immature Granulocyte (auto 0.02 0-1 K/uL Nucleated Red Blood Cells 0.0 0.0-0.19 % Sodium Level 141 136-145 mmol/L Potassium Level 3.6 3.5-5.1 mmol/L Chloride Level 105 101-111 mmol/L Carbon Dioxide Level 27 21-32 mmol/L Blood Urea Nitrogen 14 7-18 mg/dL Creatinine 0.4 L 0.5-1.0 mg/dL Glomerular Filtration Rate Calc 113 >90 mL/min Random Glucose 94 70-105 mg/dL Total Calcium 9.5 8.5-10.1 mg/dL Magnesium Level 2.10 1.80-2.40 mg/dL Total Bilirubin 0.6 0.2-1.0 mg/dL Aspartate Amino Transf (AST/SGOT) 16 10-37 U/L Alanine Aminotransferase (ALT/SGPT) 20 12-78 U/L Alkaline Phosphatase 64 50-136 U/L Total Protein 6.4 6.0-8.3 g/dL Albumin 3.2 L 3.5-5.0 g/dL Activated Partial Thromboplast Time 25.5 #L 26.3-35.5 SEC Urine Color LIGHT-YELLOW YELLOW Urine Appearance CLEAR CLEAR Urine pH 5.5 5.0-8.0 Urine Specific [place] 1.015 1.001-1.031 Urine Protein NEGATIVE NEGATIVE mg/dL Urine Glucose (UA) 300 H NEGATIVE mg/dL Urine Ketones NEGATIVE NEGATIVE mg/dL Urine Occult Blood NEGATIVE NEGATIVE Urine Nitrate NEGATIVE NEGATIVE Urine Bilirubin NEGATIVE NEGATIVE mg/dL Urine Urobilinogen 0.2 0.2-1.0 mg/dL Urine Leukocyte Esterase 25 H NEGATIVE Martin/uL Urine RBC 0-1 0-1 /HPF Urine WBC 2-5 H 0-1 /HPF Urine Squamous Epithelial Cells FEW 0-2 /HPF Urine Bacteria None None Seen /HPF Test 02/25/25 06:44 02/24/25 18:50 Range/Units Prothrombin Time 10.9 9.6-11.6 SEC Prothromb Time International Ratio 1.03 0.85-1.15 Troponin I High Sensitivity 16 4-50 ng/L Current Medications Medications (Trade) Dose Ordered Sig/Toby Route PRN Reason Start Time Stop Time Status Last Admin Dose Admin Acetaminophen (TYLenol 325MG TAB) 650 mg Q4H PRN PO TEMPERATURE GREATER THAN 101.5 02/24/25 07:00 03/26/25 06:59 02/25/25 09:58 650 MG Aspirin (Aspirin 81mg Chew Tab) 81 mg DAILY PO 02/25/25 09:00 03/27/25 08:59 02/26/25 09:34 81 MG Aspirin (Aspirin 81mg Ec Tab) 81 mg DAILY PO 02/24/25 09:00 02/24/25 08:52 DC Atorvastatin Calcium (LIPItor 20MG) 20 mg HS PO 02/24/25 21:00 02/24/25 08:52 DC Atorvastatin Calcium (LIPItor 40MG) 40 mg HS PO 02/24/25 21:00 03/26/25 20:59 02/25/25 20:00 40 MG Citalopram Hydrobromide (CeleXA 20MG TAB) 10 mg DAILY PO 02/25/25 09:00 03/27/25 08:59 02/26/25 09:34 10 MG Famotidine (Pepcid 20mg Tab) 20 mg BID PO 02/24/25 09:00 03/26/25 08:59 02/26/25 09:33 20 MG Heparin Sodium/ Dextrose 250 ml @ 0 mls/hr PROTOCOL PRN IV PROTOCOL 02/24/25 06:00 02/25/25 05:59 DC 02/25/25 01:09 7.36 MLS/HR Insulin Human Regular (humuLIN R 100 UNIT/ML 3ML) INSULIN SLIDING SCAL... ACHS SQ 02/24/25 11:30 03/26/25 11:29 02/25/25 20:07 4 UNIT Isosorbide Mononitrate (Imdur 30mg Sr) 30 mg DAILY PO 02/24/25 09:00 03/26/25 08:59 02/26/25 09:35 30 MG Magnesium Sulfate 50 ml @ 0 mls/hr PROTOCOL PRN IV low mag level 02/24/25 09:30 03/26/25 09:29 Metoprolol Succinate (TopROL XL) 12.5 mg DAILY PO 02/24/25 09:00 03/26/25 08:59 02/26/25 09:33 12.5 MG Nitroglycerin (Nitrostat) 0.4 mg Q5M PRN SL CHEST PAIN 02/24/25 06:00 02/25/25 03:17 0.4 MG Potassium Chloride 100 ml @ 50 mls/hr AD PRN IV POTASSIUM PROTOCOL 02/24/25 09:30 03/26/25 09:29 Potassium Chloride 100 ml @ 100 mls/hr AD PRN IV POTASSIUM PROTOCOL 02/26/25 11:30 03/28/25 11:29 Potassium Chloride (K-Dur/Klor-Con 20meq) 20 meq AD PRN PO POTASSIUM PROTOCOL 02/26/25 11:30 03/28/25 11:29 02/26/25 11:54 20 MEQ Potassium Chloride (KCl 10% Elixir 20meq/15ml) 20 meq AD PRN PO POTASSIUM PROTOCOL 02/26/25 11:30 03/28/25 11:29 Prasugrel (Effient 10mg) 10 mg DAILY PO 02/25/25 09:00 03/27/25 08:59 02/26/25 09:34 10 MG DIAGNOSTICS / RADIOLOGY: [ ] Assessment: unstable angina Ruled out ACS hypercoagulable state on Prasugrel POA functional decline: s/p BKA POA moderated protein calorie malnutrition with muscle atrophy ; BMI 19 POA chronic problems [place]: 2023 Essential HTN HLD DM Type 2 PLAN: Admit: medical surgical floor condition: guarded Status: full code IVF:heplock continue with prasugrel 10 mg po daily on hold for now , will continue Isosorbide ER 30 mg po daily, Atorvastatin [address] osorio increased Toprol XL to 25 mg po daily nitroglycerin 0.4 mg subL, as directed for chest pain. [employer] Vice President: Dr Nance /Sr Osorio Imaging Last Echo: 12/2025 repeat ECHO nonted Procedure: Lexiscan in am Labs cbc, cmp, mag+ Replace electrolytes as needed as per protocol to keep potassium above 4.0 magnesium 2.0. ac/hs monitoring with SSRI coverage PT services: OOB to chair Supportive measures: DVT ppx, GI ppx all questions answered ATTESTATION BY PHYSICIAN I have seen and examined the patient. I reviewed the documentation, medical decision making, and treatment plan as noted by the mid-level provider above. I agree with the findings and plan of care. MAIKEL DISLA MD, ELIZABETH NP Feb 26, 2025 16:07
[2025-02-26 20:00] VITALS: BP 124/78; PULSE 62; RESP 16; TEMP 97.8
[2025-02-26 23:46] VITALS: BP 110/58; PULSE 50; RESP 12; TEMP 98.2
[2025-02-27 04:00] VITALS: BP 118/70; PULSE 57; RESP 16; TEMP 98
[2025-02-27] MEDS ORDERED: REGADENOSON 0.4 MG/5 ML PF SYG IVP ONE (07:38)
[2025-02-27 08:00] VITALS: BP 123/64; PULSE 74; RESP 18; TEMP 98
--- NOTE | 2025-02-27 09:31 | PN ---
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 Onset started this morning at 2:00 a.m. patient was awaken with chest pain. Reports she has been having chest pain for a week. Location midsternal does not radiate,location midsternal stated the pain on arrival was 10/10 on pain scale. aggravated none: alleviating factors: none. Patient denies palpitation, dizziness, shortness for breath. 12 lead EKG on arrival showed heart rate [address] depression in the lateral Leads. As per ED physician changes in V5 and V6 were not seen in December 2024. Presence of LVH noted anterior STT wave changes were also. ER initiated heparin drip. Was given Full dose Aspirin and Morphine 2 mg IV x1. Troponin 1st set was negative. 02/25/25 patient was seen earlier patient reports she had chest pain overnight 3:00 a.m. patient was given nitroglycerin: continue on Heparin drip; Echo pending no chest pain at this time. she is fully alert oriented x3. 02/26/25 2D echocardiogram revealed a hypokinetic anteroseptal and anterolateral wall. LVEF 40-45%, the patient denies any cardiac symptoms or chest pain. Dr Osorio recommendations: lexiscan in am medical management for now ASA 81 mg daily , Prasugrel 10 mg daily ,Atorvastatin 40 mg daily, Imdur 30 mg daily changed Toprol XL to 25 mg daily patient is fully awake alert oriented x3. out of bed to chair with meals. Denied chest pain palpitation dyspnea. 02/27/25 patient is seen and examined patient underwent Lexiscan pending results. We will continue to monitor patient closely. She is asleep and waking per verbal stimuli primary nurse reports she was having GI problems post Lexiscan. REVIEW OF SYSTEMS a 14 point ROS obtained all relevant positive documented otherwise ROS negative PHYSICAL EXAM GENERAL APPEARANCE: The patient is awake, alert, and oriented, in no acute cardiopulmonary distress. NEUROLOGICAL: Cranial nerves II-XII grossly intact. Motor is 5/5 in bilateral upper and lower extremities proximal to distal. No sensory deficits. HEENT: Face is symmetric. Pupils are equal and reactive. Extraocular movements are intact. NECK: Supple. No JVD. No thyromegaly. No submental, submandibular, pre- /postauricular, occipital or supraclavicular lymphadenopathy. CHEST: Normal chest expansion. No Telemetry. LUNGS: Absence of any rales, rhonchi or any wheezing. CARDIOVASCULAR: Regular. S1 and S2 normal. No appreciable rubs, murmurs or gallops. ABDOMEN: Soft, nontender, and nondistended. There is no rebound, voluntary guarding, or rigidity. : Deferred. No [place]field. EXTREMITIES: Non-edematous and not cyanotic. No clubbing. Good capillary refill. SKIN: No skin breakdown. Vital Signs (last 8hr) Date Time Temp Pulse Resp B/P (MAP) Pulse Ox O2 Delivery O2 Flow Rate FiO2 02/27/25 08:00 98.1 74 18 123/64 94 Room Air 02/27/25 04:00 98.1 57 16 118/70 99 Room Air LABS: Laboratory: Test 02/27/25 05:27 02/26/25 03:41 02/25/25 23:23 02/25/25 12:30 Range/Units Whole Blood Glucose 102 70-110 MG/DL White Blood Count 8.0 4.8-10.8 K/uL Red Blood Count 3.76 L 4.00-5.50 MIL/uL Hemoglobin 11.4 L 12.0-16.0 g/dL Hematocrit 34.7 L 36-48 % Mean Corpuscular Volume 92.3 79-99 fL Mean Corpuscular Hemoglobin 30.3 27.0-33.0 pg Mean Corpuscular Hemoglobin Concent 32.9 32.0-36.0 g/dL Red Cell Distribution Width 13.5 11.0-15.5 % Platelet Count 245 130-400 K/uL Mean Platelet Volume 11.4 H 7.5-10.5 fL Immature Granulocyte % (Auto) 0.3 0-1 % Neutrophils (%) (Auto) 60.0 40.0-77.0 % Lymphocytes (%) (Auto) 34.0 21.0-51.0 % Monocytes (%) (Auto) 4.5 3.0-13.0 % Eosinophils (%) (Auto) 0.9 0.0-8.0 % Basophils (%) (Auto) 0.3 0.0-5.0 % Neutrophils # (Auto) 4.8 1.8-7.7 K/uL Lymphocytes # (Auto) 2.7 1.0-4.8 K/uL Monocytes # (Auto) 0.4 0.1-1.0 K/uL Eosinophils # (Auto) 0.07 0.00-0.70 K/uL Basophils # (Auto) 0.02 0.00-0.20 K/uL Absolute Immature Granulocyte (auto 0.02 0-1 K/uL Nucleated Red Blood Cells 0.0 0.0-0.19 % Sodium Level 141 136-145 mmol/L Potassium Level 3.6 3.5-5.1 mmol/L Chloride Level 105 101-111 mmol/L Carbon Dioxide Level 27 21-32 mmol/L Blood Urea Nitrogen 14 7-18 mg/dL Creatinine 0.4 L 0.5-1.0 mg/dL Glomerular Filtration Rate Calc 113 >90 mL/min Random Glucose 94 70-105 mg/dL Total Calcium 9.5 8.5-10.1 mg/dL Magnesium Level 2.10 1.80-2.40 mg/dL Total Bilirubin 0.6 0.2-1.0 mg/dL Aspartate Amino Transf (AST/SGOT) 16 10-37 U/L Alanine Aminotransferase (ALT/SGPT) 20 12-78 U/L Alkaline Phosphatase 64 50-136 U/L Total Protein 6.4 6.0-8.3 g/dL Albumin 3.2 L 3.5-5.0 g/dL Activated Partial Thromboplast Time 25.5 #L 26.3-35.5 SEC Urine Color LIGHT-YELLOW YELLOW Urine Appearance CLEAR CLEAR Urine pH 5.5 5.0-8.0 Urine Specific [place] 1.015 1.001-1.031 Urine Protein NEGATIVE NEGATIVE mg/dL Urine Glucose (UA) 300 H NEGATIVE mg/dL Urine Ketones NEGATIVE NEGATIVE mg/dL Urine Occult Blood NEGATIVE NEGATIVE Urine Nitrate NEGATIVE NEGATIVE Urine Bilirubin NEGATIVE NEGATIVE mg/dL Urine Urobilinogen 0.2 0.2-1.0 mg/dL Urine Leukocyte Esterase 25 H NEGATIVE Martin/uL Urine RBC 0-1 0-1 /HPF Urine WBC 2-5 H 0-1 /HPF Urine Squamous Epithelial Cells FEW 0-2 /HPF Urine Bacteria None None Seen /HPF Current Medications Medications (Trade) Dose Ordered Sig/Toby Route PRN Reason Start Time Stop Time Status Last Admin Dose Admin Acetaminophen (TYLenol 325MG TAB) 650 mg Q4H PRN PO TEMPERATURE GREATER THAN 101.5 02/24/25 07:00 03/26/25 06:59 02/25/25 09:58 650 MG Aspirin (Aspirin 81mg Chew Tab) 81 mg DAILY PO 02/25/25 09:00 03/27/25 08:59 02/26/25 09:34 81 MG Aspirin (Aspirin 81mg Ec Tab) 81 mg DAILY PO 02/24/25 09:00 02/24/25 08:52 DC Atorvastatin Calcium (LIPItor 20MG) 20 mg HS PO 02/24/25 21:00 02/24/25 08:52 DC Atorvastatin Calcium (LIPItor 40MG) 40 mg HS PO 02/24/25 21:00 03/26/25 20:59 02/26/25 21:10 40 MG Citalopram Hydrobromide (CeleXA 20MG TAB) 10 mg DAILY PO 02/25/25 09:00 03/27/25 08:59 02/26/25 09:34 10 MG Famotidine (Pepcid 20mg Tab) 20 mg BID PO 02/24/25 09:00 03/26/25 08:59 02/26/25 21:10 20 MG Heparin Sodium/ Dextrose 250 ml @ 0 mls/hr PROTOCOL PRN IV PROTOCOL 02/24/25 06:00 02/25/25 05:59 DC 02/25/25 01:09 7.36 MLS/HR Insulin Human Regular (humuLIN R 100 UNIT/ML 3ML) INSULIN SLIDING SCAL... ACHS SQ 02/24/25 11:30 03/26/25 11:29 02/25/25 20:07 4 UNIT Isosorbide Mononitrate (Imdur 30mg Sr) 30 mg DAILY PO 02/24/25 09:00 03/26/25 08:59 02/26/25 09:35 30 MG Magnesium Sulfate 50 ml @ 0 mls/hr PROTOCOL PRN IV low mag level 02/24/25 09:30 03/26/25 09:29 Metoprolol Succinate (TopROL XL) 12.5 mg DAILY PO 02/24/25 09:00 03/26/25 08:59 02/26/25 09:33 12.5 MG Nitroglycerin (Nitrostat) 0.4 mg Q5M PRN SL CHEST PAIN 02/24/25 06:00 02/25/25 03:17 0.4 MG Potassium Chloride 100 ml @ 50 mls/hr AD PRN IV POTASSIUM PROTOCOL 02/24/25 09:30 03/26/25 09:29 Potassium Chloride 100 ml @ 100 mls/hr AD PRN IV POTASSIUM PROTOCOL 02/26/25 11:30 03/28/25 11:29 Potassium Chloride (K-Dur/Klor-Con 20meq) 20 meq AD PRN PO POTASSIUM PROTOCOL 02/26/25 11:30 03/28/25 11:29 02/26/25 17:10 20 MEQ Potassium Chloride (KCl 10% Elixir 20meq/15ml) 20 meq AD PRN PO POTASSIUM PROTOCOL 02/26/25 11:30 03/28/25 11:29 Prasugrel (Effient 10mg) 10 mg DAILY PO 02/25/25 09:00 03/27/25 08:59 02/26/25 09:34 10 MG DIAGNOSTICS / RADIOLOGY: [ ] Assessment: unstable angina Ruled out ACS hypercoagulable state on Prasugrel POA functional decline: s/p BKA POA moderated protein calorie malnutrition with muscle atrophy ; BMI 19 POA chronic problems WI: 2023 Essential HTN HLD DM Type 2 PLAN: Admit: medical surgical floor condition: guarded Status: full code IVF:heplock continue with prasugrel 10 mg po daily on hold for now , will continue Isosorbide ER 30 mg po daily, Atorvastatin [address] osorio increased Toprol XL to 25 mg po daily nitroglycerin 0.4 mg subL, as directed for chest pain. [employer] Supervisor: Dr Nance /Sr Osorio Imaging Last Echo: 12/2025 repeat ECHO nonted Procedure: Lexiscan today will follow up results Labs cbc, cmp, mag+ Replace electrolytes as needed as per protocol to keep potassium above 4.0 magnesium 2.0. ac/hs monitoring with SSRI coverage PT services: OOB to chair Supportive measures: DVT ppx, GI ppx all questions answered ATTESTATION BY PHYSICIAN I have seen and examined the patient. I reviewed the documentation, medical decision making, and treatment plan as noted by the mid-level provider above. I agree with the findings and plan of care. MAIKEL DISLA MD, ELIZABETH NP Feb 27, 2025 09:31
--- NOTE | 2025-02-27 10:29 | PN ---
[facility] CARDIOLOGY PROGRESS NOTE Date Patient Seen: Feb 27, 2025 Time of Visit: 10:27 Interval History: No overnight events Physical Examination: GENERAL: [No acute distress.] HEAD: [Normal with no signs of head trauma.] EYES: [PERRLA, EOMI, conjunctiva and sclera normal.] ENT: [Hearing grossly intact, normal oropharynx.] NECK: [Supple without JVD. There is no tenderness, lymphadenopathy, or masses. No thyromegaly. Normal carotid upstrokes without bruits.] LUNGS: [Clear breath sounds bilaterally. No wheezes, or rhonchi.] HEART: [Normal rate and rhythm. Normal S1 and S2 without mumurs, gallop or rub.] VASC: [Peripheral pulses +2 bilaterally.] ABD: [Bowel sounds normal, soft, nontender, no masses, no organomegaly. No audible bruits.] : [Not examined] LYMPH: [No lymphadenopathy noted.] EXT: [No clubbing, cyanosis or edema. Right BKA] SKIN: [No rashes or lesions noted.] NEURO: [Awake, alert, and oriented x3. No focal sensory or strength deficits noted.] Laboratory: [ ] Hematology Labs: Test 02/26/25 03:41 Range/Units White Blood Count 8.0 4.8-10.8 K/uL Red Blood Count 3.76 L 4.00-5.50 MIL/uL Hemoglobin 11.4 L 12.0-16.0 g/dL Hematocrit 34.7 L 36-48 % Mean Corpuscular Volume 92.3 79-99 fL Mean Corpuscular Hemoglobin 30.3 27.0-33.0 pg Mean Corpuscular Hemoglobin Concent 32.9 32.0-36.0 g/dL Red Cell Distribution Width 13.5 11.0-15.5 % Platelet Count 245 130-400 K/uL Mean Platelet Volume 11.4 H 7.5-10.5 fL Immature Granulocyte % (Auto) 0.3 0-1 % Neutrophils (%) (Auto) 60.0 40.0-77.0 % Lymphocytes (%) (Auto) 34.0 21.0-51.0 % Monocytes (%) (Auto) 4.5 3.0-13.0 % Eosinophils (%) (Auto) 0.9 0.0-8.0 % Basophils (%) (Auto) 0.3 0.0-5.0 % Neutrophils # (Auto) 4.8 1.8-7.7 K/uL Lymphocytes # (Auto) 2.7 1.0-4.8 K/uL Monocytes # (Auto) 0.4 0.1-1.0 K/uL Eosinophils # (Auto) 0.07 0.00-0.70 K/uL Basophils # (Auto) 0.02 0.00-0.20 K/uL Absolute Immature Granulocyte (auto 0.02 0-1 K/uL Nucleated Red Blood Cells 0.0 0.0-0.19 % Chemistry Labs: Test 02/27/25 05:27 02/26/25 03:41 Range/Units Whole Blood Glucose 102 70-110 MG/DL Sodium Level 141 136-145 mmol/L Potassium Level 3.6 3.5-5.1 mmol/L Chloride Level 105 101-111 mmol/L Carbon Dioxide Level 27 21-32 mmol/L Blood Urea Nitrogen 14 7-18 mg/dL Creatinine 0.4 L 0.5-1.0 mg/dL Glomerular Filtration Rate Calc 113 >90 mL/min Random Glucose 94 70-105 mg/dL Total Calcium 9.5 8.5-10.1 mg/dL Magnesium Level 2.10 1.80-2.40 mg/dL Total Bilirubin 0.6 0.2-1.0 mg/dL Aspartate Amino Transf (AST/SGOT) 16 10-37 U/L Alanine Aminotransferase (ALT/SGPT) 20 12-78 U/L Alkaline Phosphatase 64 50-136 U/L Total Protein 6.4 6.0-8.3 g/dL Albumin 3.2 L 3.5-5.0 g/dL Coagulation Labs: Test 02/25/25 23:23 Range/Units Activated Partial Thromboplast Time 25.5 #L 26.3-35.5 SEC Diagnostics / Radiology: [Copy/Paste Echos/Imaging Report here] Impression and Plan: 1. Unstable Angina 2. Remote anterior wall myocardial infarction July 2024 complicated by cardiogenic shock requiring Impella support for PCI with subsequent ischemic leg requiring [id number] amputation 3. CAD status post stenting of the proximal LAD proximal circumflex and mid circumflex artery as above with documented progression of disease December 2024 managed medically because of concern the patient would not be compliant with dual antiplatelet therapy 4. Diabetes mellitus type 2 5. Dyslipidemia 6. Hypertension ] #Angina The patient presented with chest pain ACS has been ruled out , troponin has been negative Currently denies any chest pain , palpitations, dyspnea or any other anginal equ ivalents. ASA 81 mg daily , Prasugrel 10 mg daily ,Atorvastatin 40 mg daily, Imdur 30 mg daily, and Toprol XL to 25 mg daily Given ACS was ruled out we will stop IV heparin 2D echocardiogram revealed a hypokinetic anteroseptal and anterolateral wall. LVEF 40-45% (unchanged from prior July 2024) Overnight the patient endorsed ongoing left anterior chest pain Due to the patient's ongoing symptoms we will proceed with a Lexiscan stress test Keep on telemetry MD JESSY Arora DANIELLE M MD Feb 27, 2025 10:29
[2025-02-27 10:50] LABS: IMMATURE GRANULOCYTE ABSOLUTE 0.01 K/uL (0-1); NUCLEATED RED BLOOD CELLS 0.0 % (0.0-0.19); PLATELET COUNT (AUTO) 226 K/uL (130-400); RED BLOOD CELL COUNT(AUTO) 3.92 MIL/uL (4.00-5.50); RED CELL DISTRIBUTION WIDTH 13.5 % (11.0-15.5); WHITE BLOOD COUNT (AUTO) 6.0 K/uL (4.8-10.8)
[2025-02-27 11:03] LABS: ASPARTATE AMINOTRANSFERASE 20.0 U/L (10-37); CREATININE 0.5 mg/dL (0.5-1.0); GLOMERULAR FILTR. RATE CALC 107.0 mL/min (>90); GLUCOSE,RANDOM 124.0 mg/dL (70-105); SODIUM SERUM 136.0 mmol/L (136-145); TOTAL PROTEIN, SERUM 6.5 g/dL (6.0-8.3); UREA NITROGEN, BLOOD 11.0 mg/dL (7-18)
[2025-02-27 12:00] VITALS: BP 118/69; PULSE 69; RESP 18; TEMP 98.3
[2025-02-27 14:00] VITALS: BP 119/66; PULSE 58; RESP 19; TEMP 98.3
--- NOTE | 2025-02-27 16:05 | HMCSR ---
APPROVED REPORT Height: 5 ft in Weight: 93 lbs TEST INDICATIONS ANGINA The imaging protocol used to acquire images was Rest Tc-99m/stress Tc-99m 1 day Consent: The procedure was explained and understood by the patient. Informerd consent was witnessed Mckenna Palomares RN First, low dose rest was performed then high dose stress. RESTING DATA: The resting ekg shows: NSR Rest SPECT myocardial perfusion imaging was performed in supine position minutes following the intra venous injection of 11 mCi of Tc-99 Sestamibi. Time of rest injection: 06:45: Date: 02/27/2025 PHARMACOLOGIC STRESS: Pharmacologic stress test was performed by injecting regadenoson 0.4 mg IV push followed by the intra venous injection of 29 mCi of Tc-99 Sestamibi. Time of stress injection: 07:44: Date: 02/27/2025 Heart Rate at time of stress injection: 60 bpm. Gated Stress SPECT was performed 60 minutes after stress injection. The images were gated to evaluate regional wall motion and calculate left ventricular ejection fracti on. STRESS DETAILS Reason for Termination: Infusion complete Stress Symptoms: Dyspnea Max HR Achieved: 88 bpm % of APMHR Achieved: 65 Max Blood Pressure: 147/73 mmHg Stress ECG: NSR Study quality was good. Lung uptake was Normal. Artifact: No artifact IMPRESSION Abnormal pharmacologic nuclear stress test. Conclusion Reversible large defect in the anterior, septal lucas. TID 1.19. LVEF 39%.
[2025-02-27 20:00] VITALS: BP 110/67; PULSE 60; RESP 17; TEMP 98
[2025-02-27 23:28] VITALS: O2SAT 98
[2025-02-28] VITALS (7 sets, daily range): BP systolic 106–127; BP diastolic 50–76; PULSE 54–79; RESP 16–20; TEMP 98.1–98.7; O2SAT 96–99
--- NOTE | 2025-02-28 09:33 | PN ---
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 Onset started this morning at 2:00 a.m. patient was awaken with chest pain. Reports she has been having chest pain for a week. Location midsternal does not radiate,location midsternal stated the pain on arrival was 10/10 on pain scale. aggravated none: alleviating factors: none. Patient denies palpitation, dizziness, shortness for breath. 12 lead EKG on arrival showed heart rate [address] depression in the lateral Leads. As per ED physician changes in V5 and V6 were not seen in December 2024. Presence of LVH noted anterior STT wave changes were also. ER initiated heparin drip. Was given Full dose Aspirin and Morphine 2 mg IV x1. Troponin 1st set was negative. 02/25/25 patient was seen earlier patient reports she had chest pain overnight 3:00 a.m. patient was given nitroglycerin: continue on Heparin drip; Echo pending no chest pain at this time. she is fully alert oriented x3. 02/26/25 2D echocardiogram revealed a hypokinetic anteroseptal and anterolateral wall. LVEF 40-45%, the patient denies any cardiac symptoms or chest pain. Dr Osorio recommendations: lexiscan in am medical management for now ASA 81 mg daily , Prasugrel 10 mg daily ,Atorvastatin 40 mg daily, Imdur 30 mg daily changed Toprol XL to 25 mg daily patient is fully awake alert oriented x3. out of bed to chair with meals. Denied chest pain palpitation dyspnea. 02/27/25 patient is seen and examined patient underwent Lexiscan pending results. We will continue to monitor patient closely. She is asleep and waking per verbal stimuli primary nurse reports she was having GI problems post Lexiscan. 02/28/25 s/p Lexiscan Reversible large defect in the anterior, septal lucas. TID 1.19. LVEF 39%. Dr Osorio scheduled the patient for Left Heart cath tomorrow. The patient denies chest pain palpitation dyspnea. REVIEW OF SYSTEMS a 14 point ROS obtained all relevant positive documented otherwise ROS negative PHYSICAL EXAM GENERAL APPEARANCE: The patient is awake, alert, and oriented, in no acute cardiopulmonary distress. NEUROLOGICAL: Cranial nerves II-XII grossly intact. Motor is 5/5 in bilateral upper and lower extremities proximal to distal. No sensory deficits. HEENT: Face is symmetric. Pupils are equal and reactive. Extraocular movements are intact. NECK: Supple. No JVD. No thyromegaly. No submental, submandibular, pre- /postauricular, occipital or supraclavicular lymphadenopathy. CHEST: Normal chest expansion. No Telemetry. LUNGS: Absence of any rales, rhonchi or any wheezing. CARDIOVASCULAR: Regular. S1 and S2 normal. No appreciable rubs, murmurs or gallops. ABDOMEN: Soft, nontender, and nondistended. There is no rebound, voluntary guarding, or rigidity. : Deferred. No Whitfield. EXTREMITIES: Non-edematous and not cyanotic. No clubbing. Good capillary refill. SKIN: No skin breakdown. Vital Signs (last 8hr) Date Time Temp Pulse Resp B/P (MAP) Pulse Ox O2 Delivery O2 Flow Rate FiO2 02/28/25 08:00 98.8 57 19 125/70 99 Room Air 02/28/25 04:00 98.2 79 16 120/50 94 Room Air 21 LABS: Laboratory: Test 02/28/25 05:07 02/27/25 10:37 Range/Units Whole Blood Glucose 117 H 70-110 MG/DL White Blood Count 6.0 4.8-10.8 K/uL Red Blood Count 3.92 L 4.00-5.50 MIL/uL Hemoglobin 12.0 12.0-16.0 g/dL Hematocrit 36.1 36-48 % Mean Corpuscular Volume 92.1 79-99 fL Mean Corpuscular Hemoglobin 30.6 27.0-33.0 pg Mean Corpuscular Hemoglobin Concent 33.2 32.0-36.0 g/dL Red Cell Distribution Width 13.5 11.0-15.5 % Platelet Count 226 130-400 K/uL Mean Platelet Volume 10.5 7.5-10.5 fL Immature Granulocyte % (Auto) 0.2 0-1 % Neutrophils (%) (Auto) 61.0 40.0-77.0 % Lymphocytes (%) (Auto) 32.3 21.0-51.0 % Monocytes (%) (Auto) 5.2 3.0-13.0 % Eosinophils (%) (Auto) 0.8 0.0-8.0 % Basophils (%) (Auto) 0.5 0.0-5.0 % Neutrophils # (Auto) 3.6 1.8-7.7 K/uL Lymphocytes # (Auto) 1.9 1.0-4.8 K/uL Monocytes # (Auto) 0.3 0.1-1.0 K/uL Eosinophils # (Auto) 0.05 0.00-0.70 K/uL Basophils # (Auto) 0.03 0.00-0.20 K/uL Absolute Immature Granulocyte (auto 0.01 0-1 K/uL Nucleated Red Blood Cells 0.0 0.0-0.19 % Sodium Level 136 136-145 mmol/L Potassium Level 4.1 3.5-5.1 mmol/L Chloride Level 104 101-111 mmol/L Carbon Dioxide Level 30 21-32 mmol/L Blood Urea Nitrogen 11 7-18 mg/dL Creatinine 0.5 0.5-1.0 mg/dL Glomerular Filtration Rate Calc 107 >90 mL/min Random Glucose 124 H 70-105 mg/dL Total Calcium 9.9 8.5-10.1 mg/dL Magnesium Level 2.00 1.80-2.40 mg/dL Total Bilirubin 0.7 0.2-1.0 mg/dL Aspartate Amino Transf (AST/SGOT) 20 10-37 U/L Alanine Aminotransferase (ALT/SGPT) 22 12-78 U/L Alkaline Phosphatase 62 50-136 U/L Total Protein 6.5 6.0-8.3 g/dL Albumin 3.4 L 3.5-5.0 g/dL Current Medications Medications (Trade) Dose Ordered Sig/Toby Route PRN Reason Start Time Stop Time Status Last Admin Dose Admin Acetaminophen (TYLenol 325MG TAB) 650 mg Q4H PRN PO TEMPERATURE GREATER THAN 101.5 02/24/25 07:00 03/26/25 06:59 02/27/25 11:08 650 MG Aspirin (Aspirin 81mg Chew Tab) 81 mg DAILY PO 02/25/25 09:00 03/27/25 08:59 02/28/25 09:18 81 MG Aspirin (Aspirin 81mg Ec Tab) 81 mg DAILY PO 02/24/25 09:00 02/24/25 08:52 DC Atorvastatin Calcium (LIPItor 20MG) 20 mg HS PO 02/24/25 21:00 02/24/25 08:52 DC Atorvastatin Calcium (LIPItor 40MG) 40 mg HS PO 02/24/25 21:00 03/26/25 20:59 02/27/25 20:34 40 MG Citalopram Hydrobromide (CeleXA 20MG TAB) 10 mg DAILY PO 02/25/25 09:00 03/27/25 08:59 02/28/25 09:18 10 MG Famotidine (Pepcid 20mg Tab) 20 mg BID PO 02/24/25 09:00 03/26/25 08:59 02/28/25 09:18 20 MG Heparin Sodium/ Dextrose 250 ml @ 0 mls/hr PROTOCOL PRN IV PROTOCOL 02/24/25 06:00 02/25/25 05:59 DC 02/25/25 01:09 7.36 MLS/HR Insulin Human Regular (humuLIN R 100 UNIT/ML 3ML) INSULIN SLIDING SCAL... ACHS SQ 02/24/25 11:30 03/26/25 11:29 02/25/25 20:07 4 UNIT Isosorbide Mononitrate (Imdur 30mg Sr) 30 mg DAILY PO 02/24/25 09:00 03/26/25 08:59 02/28/25 09:19 30 MG Magnesium Sulfate 50 ml @ 0 mls/hr PROTOCOL PRN IV low mag level 02/24/25 09:30 03/26/25 09:29 Metoprolol Succinate (TopROL XL) 12.5 mg DAILY PO 02/24/25 09:00 03/26/25 08:59 02/28/25 09:19 12.5 MG Nitroglycerin (Nitrostat) 0.4 mg Q5M PRN SL CHEST PAIN 02/24/25 06:00 02/25/25 03:17 0.4 MG Potassium Chloride 100 ml @ 50 mls/hr AD PRN IV POTASSIUM PROTOCOL 02/24/25 09:30 03/26/25 09:29 Potassium Chloride 100 ml @ 100 mls/hr AD PRN IV POTASSIUM PROTOCOL 02/26/25 11:30 02/27/25 09:49 DC Potassium Chloride (K-Dur/Klor-Con 20meq) 20 meq AD PRN PO POTASSIUM PROTOCOL 02/26/25 11:30 03/28/25 11:29 02/26/25 17:10 20 MEQ Potassium Chloride (KCl 10% Elixir 20meq/15ml) 20 meq AD PRN PO POTASSIUM PROTOCOL 02/26/25 11:30 03/28/25 11:29 Prasugrel (Effient 10mg) 10 mg DAILY PO 02/25/25 09:00 03/27/25 08:59 02/28/25 09:18 10 MG DIAGNOSTICS / RADIOLOGY: [ ] Assessment: unstable angina Rule n ACS s/p Lexiscan Reversible large defect in the anterior, septal lucas. TID 1.19. LVEF 39%. hypercoagulable state on Prasugrel POA functional decline: s/p BKA POA moderated protein calorie malnutrition with muscle atrophy ; BMI 19 POA chronic problems [place]: 2023 Essential HTN HLD DM Type 2 PLAN: Admit: medical surgical floor condition: guarded Status: full code IVF:heplock continue with prasugrel 10 mg po daily on hold for now , will continue Isosorbide ER 30 mg po daily, Atorvastatin [address] osorio increased Toprol XL to 25 mg po daily nitroglycerin 0.4 mg subL, as directed for chest pain. Consultants Treatment Manager: Dr Nance /Sr Osorio s/p Lexdanisha abnormal: Procedure: left heart cath in am Labs cbc, cmp, mag+ Replace electrolytes as needed as per protocol to keep potassium above 4.0 magnesium 2.0. ac/hs monitoring with SSRI coverage PT services: OOB to chair Supportive measures: DVT ppx, GI ppx all questions answered ATTESTATION BY PHYSICIAN I have seen and examined the patient. I reviewed the documentation, medical decision making, and treatment plan as noted by the mid-level provider above. I agree with the findings and plan of care. MAIKEL DISLA MD, ELIZABETH NP Feb 28, 2025 09:33
--- NOTE | 2025-02-28 09:51 | PN ---
[facility] CARDIOLOGY PROGRESS NOTE Date Patient Seen: Feb 28, 2025 Time of Visit: 09:50 Interval History: No overnight events Physical Examination: GENERAL: [No acute distress.] HEAD: [Normal with no signs of head trauma.] EYES: [PERRLA, EOMI, conjunctiva and sclera normal.] ENT: [Hearing grossly intact, normal oropharynx.] NECK: [Supple without JVD. There is no tenderness, lymphadenopathy, or masses. No thyromegaly. Normal carotid upstrokes without bruits.] LUNGS: [Clear breath sounds bilaterally. No wheezes, or rhonchi.] HEART: [Normal rate and rhythm. Normal S1 and S2 without mumurs, gallop or rub.] VASC: [Peripheral pulses +2 bilaterally.] ABD: [Bowel sounds normal, soft, nontender, no masses, no organomegaly. No audible bruits.] : [Not examined] LYMPH: [No lymphadenopathy noted.] EXT: [No clubbing, cyanosis or edema. Right BKA] SKIN: [No rashes or lesions noted.] NEURO: [Awake, alert, and oriented x3. No focal sensory or strength deficits noted.] Laboratory: [ ] Hematology Labs: Test 02/27/25 10:37 Range/Units White Blood Count 6.0 4.8-10.8 K/uL Red Blood Count 3.92 L 4.00-5.50 MIL/uL Hemoglobin 12.0 12.0-16.0 g/dL Hematocrit 36.1 36-48 % Mean Corpuscular Volume 92.1 79-99 fL Mean Corpuscular Hemoglobin 30.6 27.0-33.0 pg Mean Corpuscular Hemoglobin Concent 33.2 32.0-36.0 g/dL Red Cell Distribution Width 13.5 11.0-15.5 % Platelet Count 226 130-400 K/uL Mean Platelet Volume 10.5 7.5-10.5 fL Immature Granulocyte % (Auto) 0.2 0-1 % Neutrophils (%) (Auto) 61.0 40.0-77.0 % Lymphocytes (%) (Auto) 32.3 21.0-51.0 % Monocytes (%) (Auto) 5.2 3.0-13.0 % Eosinophils (%) (Auto) 0.8 0.0-8.0 % Basophils (%) (Auto) 0.5 0.0-5.0 % Neutrophils # (Auto) 3.6 1.8-7.7 K/uL Lymphocytes # (Auto) 1.9 1.0-4.8 K/uL Monocytes # (Auto) 0.3 0.1-1.0 K/uL Eosinophils # (Auto) 0.05 0.00-0.70 K/uL Basophils # (Auto) 0.03 0.00-0.20 K/uL Absolute Immature Granulocyte (auto 0.01 0-1 K/uL Nucleated Red Blood Cells 0.0 0.0-0.19 % Chemistry Labs: Test 02/28/25 05:07 02/27/25 10:37 Range/Units Whole Blood Glucose 117 H 70-110 MG/DL Sodium Level 136 136-145 mmol/L Potassium Level 4.1 3.5-5.1 mmol/L Chloride Level 104 101-111 mmol/L Carbon Dioxide Level 30 21-32 mmol/L Blood Urea Nitrogen 11 7-18 mg/dL Creatinine 0.5 0.5-1.0 mg/dL Glomerular Filtration Rate Calc 107 >90 mL/min Random Glucose 124 H 70-105 mg/dL Total Calcium 9.9 8.5-10.1 mg/dL Magnesium Level 2.00 1.80-2.40 mg/dL Total Bilirubin 0.7 0.2-1.0 mg/dL Aspartate Amino Transf (AST/SGOT) 20 10-37 U/L Alanine Aminotransferase (ALT/SGPT) 22 12-78 U/L Alkaline Phosphatase 62 50-136 U/L Total Protein 6.5 6.0-8.3 g/dL Albumin 3.4 L 3.5-5.0 g/dL Diagnostics / Radiology: [Copy/Paste Echos/Imaging Report here] Impression and Plan: 1. Unstable Angina 2. Remote anterior wall myocardial infarction July 2024 complicated by cardiogenic shock requiring Impella support for PCI with subsequent ischemic leg requiring [id number] amputation 3. CAD status post stenting of the proximal LAD proximal circumflex and mid circumflex artery as above with documented progression of disease December 2024 managed medically because of concern the patient would not be compliant with dual antiplatelet therapy 4. Diabetes mellitus type 2 5. Dyslipidemia 6. Hypertension ] #Angina The patient presented with chest pain ACS has been ruled out , troponin has been negative Currently denies any chest pain , palpitations, dyspnea or any other anginal equivalents. ASA 81 mg daily , Prasugrel 10 mg daily ,Atorvastatin 40 mg daily, Imdur 30 mg daily, and Toprol XL to 25 mg daily Given ACS was ruled out we will stop IV heparin 2D echocardiogram revealed a hypokinetic anteroseptal and anterolateral wall. LVEF 40-45% (unchanged from prior July 2024) Abnormal reversible defect in apical, anterior and septal areas, plan for left heart cath in AM Keep on telemetry MD JESSY Arora DANIELLE M MD Feb 28, 2025 09:51
[2025-03-01] VITALS: BP 113/66; PULSE 62; RESP 20; TEMP 97.8
[2025-03-01 04:00] VITALS: BP 124/73; PULSE 63; RESP 20; TEMP 97.6
[2025-03-01 04:43] LABS: NUCLEATED RED BLOOD CELLS 0.0 % (0.0-0.19); PLATELET COUNT (AUTO) 231.0 K/uL (130-400); RED BLOOD CELL COUNT(AUTO) 3.95 MIL/uL (4.00-5.50); RED CELL DISTRIBUTION WIDTH 13.2 % (11.0-15.5); WHITE BLOOD COUNT (AUTO) 6.5 K/uL (4.8-10.8)
[2025-03-01 04:55] LABS: INR 1.02 (0.85-1.15)
[2025-03-01 05:02] LABS: ASPARTATE AMINOTRANSFERASE 21.0 U/L (10-37); CREATININE 0.6 mg/dL (0.5-1.0); GLOMERULAR FILTR. RATE CALC 102.0 mL/min (>90); GLUCOSE,RANDOM 112.0 mg/dL (70-105); SODIUM SERUM 137.0 mmol/L (136-145); TOTAL PROTEIN, SERUM 6.9 g/dL (6.0-8.3); UREA NITROGEN, BLOOD 19.0 mg/dL (7-18)
--- NOTE | 2025-03-01 06:00 | NUR ---
orthostatic vs lying 134/69 hr 63 sitting 142/72 hr 68 standing 145/73 hr 70 Addendum: 03/01/25 at 0607 by MASTER VILLATORO LVN LVN wrong pt
--- NOTE | 2025-03-01 07:30 | NUR ---
Received a call from laborer electroplating that procedure would be later this afternoon. Patient is to eat breakfast and then NPO except meds until procedure. Kitchen notified to bring tray. Patient refused tray. Upset that procedure is not taking place this morning. States she does not want to eat and will not eat. Also refuses all medications.
[2025-03-01 08:00] VITALS: BP 113/63; PULSE 52; RESP 17; TEMP 97.7; O2SAT 97
--- NOTE | 2025-03-01 09:24 | PN ---
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 Onset started this morning at 2:00 a.m. patient was awaken with chest pain. Reports she has been having chest pain for a week. Location midsternal does not radiate,location midsternal stated the pain on arrival was 10/10 on pain scale. aggravated none: alleviating factors: none. Patient denies palpitation, dizziness, shortness for breath. 12 lead EKG on arrival showed heart rate [address] depression in the lateral Leads. As per ED physician changes in V5 and V6 were not seen in December 2024. Presence of LVH noted anterior STT wave changes were also. ER initiated heparin drip. Was given Full dose Aspirin and Morphine 2 mg IV x1. Troponin 1st set was negative. 02/25/25 patient was seen earlier patient reports she had chest pain overnight 3:00 a.m. patient was given nitroglycerin: continue on Heparin drip; Echo pending no chest pain at this time. she is fully alert oriented x3. 02/26/25 2D echocardiogram revealed a hypokinetic anteroseptal and anterolateral wall. LVEF 40-45%, the patient denies any cardiac symptoms or chest pain. Dr Osorio recommendations: lexiscan in am medical management for now ASA 81 mg daily , Prasugrel 10 mg daily ,Atorvastatin 40 mg daily, Imdur 30 mg daily changed Toprol XL to 25 mg daily patient is fully awake alert oriented x3. out of bed to chair with meals. Denied chest pain palpitation dyspnea. 02/27/25 patient is seen and examined patient underwent Lexiscan pending results. We will continue to monitor patient closely. She is asleep and waking per verbal stimuli primary nurse reports she was having GI problems post Lexiscan. 02/28/25 s/p Lexiscan Reversible large defect in the anterior, septal lucas. TID 1.19. LVEF 39%. Dr Osorio scheduled the patient for Left Heart cath tomorrow. The patient denies chest pain palpitation dyspnea. 03/01/25 patient was evaluated this continues without chest pain or palpitations patient had a Lexiscan stress test is PCI this after the. Patient NPO after breakfast. REVIEW OF SYSTEMS a 14 point ROS obtained all relevant positive documented otherwise ROS negative PHYSICAL EXAM GENERAL APPEARANCE: The patient is awake, alert, and oriented, in no acute cardiopulmonary distress. NEUROLOGICAL: Cranial nerves II-XII grossly intact. Motor is 5/5 in bilateral upper and lower extremities proximal to distal. No sensory deficits. HEENT: Face is symmetric. Pupils are equal and reactive. Extraocular movements are intact. NECK: Supple. No JVD. No thyromegaly. No submental, submandibular, pre- /postauricular, occipital or supraclavicular lymphadenopathy. CHEST: Normal chest expansion. No Telemetry. LUNGS: Absence of any rales, rhonchi or any wheezing. CARDIOVASCULAR: Regular. S1 and S2 normal. No appreciable rubs, murmurs or gallops. ABDOMEN: Soft, nontender, and nondistended. There is no rebound, voluntary guarding, or rigidity. : Deferred. No Whitfield. EXTREMITIES: Non-edematous and not cyanotic. No clubbing. Good capillary refill. SKIN: No skin breakdown. Vital Signs (last 8hr) Date Time Temp Pulse Resp B/P (MAP) Pulse Ox O2 Delivery O2 Flow Rate FiO2 03/01/25 08:00 97 Room Air* 0 21 03/01/25 08:00 97.7 52 17 113/63 97 21 03/01/25 04:00 97.5 63 20 124/73 96 Room Air LABS: Laboratory: Test 03/01/25 04:33 02/28/25 19:20 02/27/25 10:37 Range/Units White Blood Count 6.5 4.8-10.8 K/uL Red Blood Count 3.95 L 4.00-5.50 MIL/uL Hemoglobin 11.9 L 12.0-16.0 g/dL Hematocrit 36.5 36-48 % Mean Corpuscular Volume 92.4 79-99 fL Mean Corpuscular Hemoglobin 30.1 27.0-33.0 pg Mean Corpuscular Hemoglobin Concent 32.6 32.0-36.0 g/dL Red Cell Distribution Width 13.2 11.0-15.5 % Platelet Count 231 130-400 K/uL Mean Platelet Volume 10.7 H 7.5-10.5 fL Nucleated Red Blood Cells 0.0 0.0-0.19 % Prothrombin Time 10.8 9.6-11.6 SEC Prothromb Time International Ratio 1.02 0.85-1.15 Activated Partial Thromboplast Time 25.9 L 26.3-35.5 SEC Sodium Level 137 136-145 mmol/L Potassium Level 4.0 3.5-5.1 mmol/L Chloride Level 102 101-111 mmol/L Carbon Dioxide Level 29 21-32 mmol/L Blood Urea Nitrogen 19 H 7-18 mg/dL Creatinine 0.6 0.5-1.0 mg/dL Glomerular Filtration Rate Calc 102 >90 mL/min Random Glucose 112 H 70-105 mg/dL Total Calcium 9.7 8.5-10.1 mg/dL Total Bilirubin 0.5 0.2-1.0 mg/dL Aspartate Amino Transf (AST/SGOT) 21 10-37 U/L Alanine Aminotransferase (ALT/SGPT) 29 12-78 U/L Alkaline Phosphatase 65 50-136 U/L Total Protein 6.9 6.0-8.3 g/dL Albumin 3.5 3.5-5.0 g/dL Whole Blood Glucose 149 H 70-110 MG/DL Immature Granulocyte % (Auto) 0.2 0-1 % Neutrophils (%) (Auto) 61.0 40.0-77.0 % Lymphocytes (%) (Auto) 32.3 21.0-51.0 % Monocytes (%) (Auto) 5.2 3.0-13.0 % Eosinophils (%) (Auto) 0.8 0.0-8.0 % Basophils (%) (Auto) 0.5 0.0-5.0 % Neutrophils # (Auto) 3.6 1.8-7.7 K/uL Lymphocytes # (Auto) 1.9 1.0-4.8 K/uL Monocytes # (Auto) 0.3 0.1-1.0 K/uL Eosinophils # (Auto) 0.05 0.00-0.70 K/uL Basophils # (Auto) 0.03 0.00-0.20 K/uL Absolute Immature Granulocyte (auto 0.01 0-1 K/uL Magnesium Level 2.00 1.80-2.40 mg/dL Current Medications Medications (Trade) Dose Ordered Sig/Toby Route PRN Reason Start Time Stop Time Status Last Admin Dose Admin Acetaminophen (TYLenol 325MG TAB) 650 mg Q4H PRN PO TEMPERATURE GREATER THAN 101.5 02/24/25 07:00 03/26/25 06:59 02/27/25 11:08 650 MG Aspirin (Aspirin 81mg Chew Tab) 81 mg DAILY PO 02/25/25 09:00 03/27/25 08:59 02/28/25 09:18 81 MG Aspirin (Aspirin 81mg Ec Tab) 81 mg DAILY PO 02/24/25 09:00 02/24/25 08:52 DC Atorvastatin Calcium (LIPItor 20MG) 20 mg HS PO 02/24/25 21:00 02/24/25 08:52 DC Atorvastatin Calcium (LIPItor 40MG) 40 mg HS PO 02/24/25 21:00 03/26/25 20:59 02/28/25 19:51 40 MG Citalopram Hydrobromide (CeleXA 20MG TAB) 10 mg DAILY PO 02/25/25 09:00 03/27/25 08:59 02/28/25 09:18 10 MG Famotidine (Pepcid 20mg Tab) 20 mg BID PO 02/24/25 09:00 03/26/25 08:59 02/28/25 19:51 20 MG Heparin Sodium/ Dextrose 250 ml @ 0 mls/hr PROTOCOL PRN IV PROTOCOL 02/24/25 06:00 02/25/25 05:59 DC 02/25/25 01:09 7.36 MLS/HR Insulin Human Regular (humuLIN R 100 UNIT/ML 3ML) INSULIN SLIDING SCAL... ACHS SQ 02/24/25 11:30 03/26/25 11:29 02/25/25 20:07 4 UNIT Isosorbide Mononitrate (Imdur 30mg Sr) 30 mg DAILY PO 02/24/25 09:00 03/26/25 08:59 02/28/25 09:19 30 MG Magnesium Sulfate 50 ml @ 0 mls/hr PROTOCOL PRN IV low mag level 02/24/25 09:30 03/26/25 09:29 Metoprolol Succinate (TopROL XL) 12.5 mg DAILY PO 02/24/25 09:00 03/26/25 08:59 02/28/25 09:19 12.5 MG Nitroglycerin (Nitrostat) 0.4 mg Q5M PRN SL CHEST PAIN 02/24/25 06:00 02/25/25 03:17 0.4 MG Potassium Chloride 100 ml @ 50 mls/hr AD PRN IV POTASSIUM PROTOCOL 02/24/25 09:30 03/26/25 09:29 Potassium Chloride 100 ml @ 100 mls/hr AD PRN IV POTASSIUM PROTOCOL 02/26/25 11:30 02/27/25 09:49 DC Potassium Chloride (K-Dur/Klor-Con 20meq) 20 meq AD PRN PO POTASSIUM PROTOCOL 02/26/25 11:30 03/28/25 11:29 02/26/25 17:10 20 MEQ Potassium Chloride (KCl 10% Elixir 20meq/15ml) 20 meq AD PRN PO POTASSIUM PROTOCOL 02/26/25 11:30 03/28/25 11:29 Prasugrel (Effient 10mg) 10 mg DAILY PO 02/25/25 09:00 03/27/25 08:59 02/28/25 09:18 10 MG DIAGNOSTICS / RADIOLOGY: [ ] Assessment: unstable angina Rule n ACS s/p Syediscan Reversible large defect in the anterior, septal lucas. TID 1.19. LVEF 39%. hypercoagulable state on Prasugrel POA functional decline: s/p BKA POA moderated protein calorie malnutrition with muscle atrophy ; BMI 19 POA chronic problems [place]: 2023 Essential HTN HLD DM Type 2 PLAN: Admit: Patient will be on telemetry condition: guarded Status: full code IVF:heplock continue with prasugrel 10 mg po daily on hold for now , will continue Isosorbide ER 30 mg po daily, Atorvastatin [address] osorio increased Toprol XL to 25 mg po daily nitroglycerin 0.4 mg subL, as directed for chest pain. Consultants Mud Boss: Dr Nance /Dr Osorio s/p Rehan abnormal: Plan for PCI this afternoon Procedure: left heart cath in am Labs cbc, cmp, mag+ Replace electrolytes as needed as per protocol to keep potassium above 4.0 magnesium 2.0. ac/hs monitoring with SSRI coverage PT services: OOB to chair Supportive measures: DVT ppx, GI ppx all questions answered ATTESTATION BY PHYSICIAN I have seen and examined the patient. I reviewed the documentation, medical decision making, and treatment plan as noted by the mid-level provider above. I agree with the findings and plan of care. MAIKEL DISLA MD, [facility] Mar 01, 2025 09:24
[2025-03-01] MEDS ORDERED: IOHEXOL 350 MG/ML 100ML INFUS..BTL IV ONE (11:08)
[2025-03-01] MEDS ORDERED: LIDOCAINE HCL 400MG/20ML VIAL ONE (11:08)
[2025-03-01] MEDS ORDERED: HEParin-NS 1,000 UNIT/500 ML 1,000 ML IV ONE (11:09)
[2025-03-01] MEDS ORDERED: NITROGLYCERIN 50MG VIAL ONE (11:09)
[2025-03-01] MEDS ORDERED: VERAPAMIL HCL 2.5 MG/ML VIAL ONE (11:10)
[2025-03-01] MEDS ORDERED: ATROPINE 1MG SYG IVP ONE (11:39)
[2025-03-01] MEDS ORDERED: MIDAZOLAM HCL 1 MG/ML 2ML VIAL ONE (11:39)
[2025-03-01 12:00] VITALS: BP 115/60; PULSE 54; RESP 17; TEMP 97.6
[2025-03-01] MEDS ORDERED: PRASUGREL HCL 10 MG TABLET ONE (12:15)
[2025-03-01] MEDS ORDERED: ASPIRIN 81MG CHEW TAB ONE (12:15)
[2025-03-01] MEDS ORDERED: GLUCAGON 1MG KIT 1 MG ML IM PRN (12:30)
[2025-03-01] MEDS ORDERED: DEXTROSE 50%-WATER 50 ML DISP.SYRIN IV PRN (12:30)
--- NOTE | 2025-03-01 12:41 | PRN ---
PROCEDURE REPORT DATE OF PROCEDURE: Mar 01, 2025 RELATIONSHIP MANAGER: [Lindy osorio MD ] PROCEDURE PERFORMED: Conscious sedation Ultrasound guided right radial artery access Selective left coronary artery angiogram Selective right coronary artery angiogram Left heart catheterization TR band 13 sukhjinder over right radial artery INDICATION: Abnormal stress test/chest pain DESCRIPTION OF PROCEDURE: After informed consent was obtained, the patient was prepped and draped in the usual sterile fashion. A 6 Argentine arterial sheath was inserted in the right radial artery using ultrasound guidance with first pass wall puncture. The arterial sheath was aspirated and flushed. A 6 Argentine JL 3.5 was then advanced to the ascending aorta over an exchange length J-tip guidewire, was aspirated and flushed, and was used for selective coronary angiograms in multiple obliquities. A JR-4 was advanced in a similar fashion to the ascending aorta over the J-tipped guidewire and was used for selective right coronary angiograms in multiple oblique views with findings as outlined below. The JR-4 catheter advanced into the LV and pressures were obtained with a pull-back across the aortic valve. Following review of all the images decision was made to terminate the procedure and consult CV surgery for CABG evaluation. All wires and catheters removed from the body and A TR band was placed over right radial artery. FLUOROSCOPY TIME: 3.2 min LEFT HEART HEMODYNAMICS: LVEDP 16 mm Hg and no gradient Ao CORONARY ANGIOGRAM: LEFT MAIN: Patent and 0% stenosis. Gives rise to LCx and LAD. LEFT ANTERIOR DESCENDING: Large vessel giving rise to two Diagonal branches. Ostial 99% stenosis extending into the proximal stent with MICAH three flow distally. Diagonal is small and patent LEFT CIRCUMFLEX: Large, codominant and gives rise to one OM branches. 60-70% ostial stenosis followed by a patent proximal and mid to distal stent with 20 30% diffuse ISR. OM1 has 80% ostial stenosis RIGHT CORONARY ARTERY: Co dominant vessel giving rise to PDA and PL branches. 50-60% proximal stenosis followed by luminal irregularities HEMOSTASIS: TR band 12 sukhjinder over right radial artery INTERVENTIONS: None. COMPLICATIONS: None FINDINGS: Severe two-vessel CAD ESTIMATED BLOOD LOSS: 5 cc RECOMMENDATIONS/INSTRUCTIONS: Aggressive risk factor modification. Consult CV surgery for CABG evaluation versus high-risk PCI Hold/defer the use of any P2Y12 inhibitors while we await CV surgery recommendations Continue aspirin 81 mg daily and high-intensity Lipitor and antianginals including beta-omid/ CONTRAST DELIVERED TO PATIENT (mL): 30cc LINDY Akers MD, MD Mar 01, 2025 12:41
--- NOTE | 2025-03-01 12:45 | PN ---
[facility] C[facility]OLOG[facility] PROGRESS NOTE Date Patient Seen: Mar 01, 2025 Time of Visit: 12:43 Interval History: No overnight events. The patient is scheduled to undergo coronary angiogram today. Physical Examination: GENERAL: [No acute distress.] HEAD: [Normal with no signs of head trauma.] EYES: [PERRLA, EOMI, conjunctiva and sclera normal.] ENT: [Hearing grossly intact, normal oropharynx.] NECK: [Supple without JVD. There is no tenderness, lymphadenopathy, or masses. No thyromegaly. Normal carotid upstrokes without bruits.] LUNGS: [Clear breath sounds bilaterally. No wheezes, or rhonchi.] HEART: [Normal rate and rhythm. Normal S1 and S2 without mumurs, gallop or rub.] VASC: [Peripheral pulses +2 bilaterally.] ABD: [Bowel sounds normal, soft, nontender, no masses, no organomegaly. No audible bruits.] : [Not examined] LYMPH: [No lymphadenopathy noted.] EXT: [No clubbing, cyanosis or edema. Right BKA] SKIN: [No rashes or lesions noted.] NEURO: [Awake, alert, and oriented x3. No focal sensory or strength deficits noted.] Laboratory: [ ] Hematology Labs: Test 03/01/25 04:33 Range/Units White Blood Count 6.5 4.8-10.8 K/uL Red Blood Count 3.95 L 4.00-5.50 MIL/uL Hemoglobin 11.9 L 12.0-16.0 g/dL Hematocrit 36.5 36-48 % Mean Corpuscular Volume 92.4 79-99 fL Mean Corpuscular Hemoglobin 30.1 27.0-33.0 pg Mean Corpuscular Hemoglobin Concent 32.6 32.0-36.0 g/dL Red Cell Distribution Width 13.2 11.0-15.5 % Platelet Count 231 130-400 K/uL Mean Platelet Volume 10.7 H 7.5-10.5 fL Nucleated Red Blood Cells 0.0 0.0-0.19 % Chemistry Labs: Test 03/01/25 11:06 03/01/25 04:33 Range/Units Whole Blood Glucose 132 H 70-110 MG/DL Sodium Level 137 136-145 mmol/L Potassium Level 4.0 3.5-5.1 mmol/L Chloride Level 102 101-111 mmol/L Carbon Dioxide Level 29 21-32 mmol/L Blood Urea Nitrogen 19 H 7-18 mg/dL Creatinine 0.6 0.5-1.0 mg/dL Glomerular Filtration Rate Calc 102 >90 mL/min Random Glucose 112 H 70-105 mg/dL Total Calcium 9.7 8.5-10.1 mg/dL Total Bilirubin 0.5 0.2-1.0 mg/dL Aspartate Amino Transf (AST/SGOT) 21 10-37 U/L Alanine Aminotransferase (ALT/SGPT) 29 12-78 U/L Alkaline Phosphatase 65 50-136 U/L Total Protein 6.9 6.0-8.3 g/dL Albumin 3.5 3.5-5.0 g/dL Coagulation Labs: Test 03/01/25 04:33 Range/Units Prothrombin Time 10.8 9.6-11.6 SEC Prothromb Time International Ratio 1.02 0.85-1.15 Activated Partial Thromboplast Time 25.9 L 26.3-35.5 SEC Diagnostics / Radiology: [Copy/Paste Echos/Imaging Report here] Impression and Plan: 1. Unstable Angina 2. Remote anterior wall myocardial infarction July 2024 complicated by cardiogenic shock requiring Impella support for PCI with subsequent ischemic leg requiring [id number] amputation 3. CAD status post stenting of the proximal LAD proximal circumflex and mid circumflex artery as above with documented progression of disease December 2024 managed medically because of concern the patient would not be compliant with dual antiplatelet therapy 4. Diabetes mellitus type 2 5. Dyslipidemia 6. Hypertension ] #Angina The patient presented with chest pain ACS has been ruled out , troponin has been negative Currently denies any chest pain , palpitations, dyspnea or any other anginal equivalents. ASA 81 mg daily , Prasugrel 10 mg daily ,Atorvastatin 40 mg daily, Imdur 30 mg daily, and Toprol XL to 25 mg daily Given ACS was ruled out we will stop IV heparin 2D echocardiogram revealed a hypokinetic anteroseptal and anterolateral wall. LVEF 40-45% (unchanged from prior July 2024) Abnormal reversible defect in apical, anterior and septal areas, plan for left heart cath in AM Keep on telemetry Currently NPO. The patient will undergo coronary angiogram today Thank you for this consult , cardiology will continue to follow along , formal recommendations following her procedure. Jefry Carrasco MD ATTESTATION BY PHYSICIAN I have seen and examined the patient, reviewed the above documentation, participated in medical decision making, made necessary modifications, and agree with the treatment plan as documented by my mid-level provider above. MD JESSY Catalan JAMES R MD Mar 01, 2025 12:45
--- NOTE | 2025-03-01 12:50 | NUR ---
PATIENT RETURNED TO UNIT STATUS POST PROCEDURE Patient returned to unit. TR band in place. Orders reviewed. Patient is irritable. States that she wants to go home. She does not know why they just don't let her go home and . Vitals q15 minutes. Patient grimacing, stated back hurts. Repositioned for comfort. Patient denied prn pain medication. Patient refused telemetry monitoring. Patient insisting that Dr. Carrasco be contacted, but then refuses to answer any questions regarding how she is feeling. Vital signs have been stable. Will continue to monitor. Patient will not answer nurse questions at this time. Patient is asking to have Racial band removed stating that she just wants to . Charge nurse notified. Offered to call family member and patient refuses. Addendum: 03/01/25 at 1423 by GURU RUSH RN RN Dr. Carrasco notified. Dr. Odonnell notified. New orders for bedside sitter, Tropical consult, Fall precautions.
--- NOTE | 2025-03-01 14:00 | NUR ---
PATIENT CONTINUES TO REMOVE BLOOD PRESSURE CUFF, PULSE OXIMETER. Refusing vital signs.
--- NOTE | 2025-03-01 14:32 | NUR ---
Patient off unit for procedure Addendum: 03/01/25 at 1433 by GURU RUSH RN RN Amended: Links added.
--- NOTE | 2025-03-01 14:59 | NUR ---
REPORT CALLED TO [facility] Patient will be going to room 4302. EMS transport will be called.
--- NOTE | 2025-03-01 16:26 | NUR ---
CHEST PAIN Patient complained of chest pain. PRN nitroglycerin administered. EKG ordered per protocol. Vital signs: BP= 143/74; P=57; O2=99% room air.
--- NOTE | 2025-03-01 16:31 | EKG ---
[facility] Test Date: 2025-03-01 Test Time: 16:22:06 Pat Name: SHAHZAD PAGE Department: [facility] Room: 429 1 Gender: F Acid Regenerator: toni : 1965 Requested By: LINDY JIMÉNEZ Order Number: [id number] Reading MD: Adam Yang Measurements Intervals Herrick Rate: 60 P: 68 VA: 148 QRS: 44 QRSD: 86 T: 122 QT: 410 QTc: 410 Interpretive Statements Normal sinus rhythm ST & T wave abnormality, consider lateral ischemia Compared to ECG 02/25/2025 03:19:27 Prolonged QT interval no longer present ST (T wave) deviation still present Possible ischemia still present Electronically Signed On 03-03-2025 10:27:01 CDT by Adam Yang Please click the below link to view image of tracing.
--- NOTE | 2025-03-01 18:02 | NUR ---
TRANSFER TO [facility] Patient continues to refuse telemetry monitoring. Also refuses to sign refusal of recommended care form. Patient states that she will not wear the monitor and she is not going to eat as long as she is in here. Family was at bedside briefly, but stepped out as spouse became agitated with patient stating that she was bipolar and could not make decisions. One-to-one sitter at bedside. Fall precautions in place. Bed alarm on. Will continue to monitor
[2025-03-01] MEDS: 0.9%NACL 1000ML 1,000 ML IV SCH (19:04)
[2025-03-01 19:23] VITALS: O2SAT 98
[2025-03-01 20:00] VITALS: BP 121/53; PULSE 74; RESP 18; TEMP 98.2
[2025-03-02] VITALS (9 sets, daily range): BP systolic 94–120; BP diastolic 49–65; PULSE 53–75; RESP 16–18; TEMP 97.4–98.8; O2SAT 96–97
[2025-03-02 04:45] LABS: NUCLEATED RED BLOOD CELLS 0.0 % (0.0-0.19); PLATELET COUNT (AUTO) 239.0 K/uL (130-400); RED BLOOD CELL COUNT(AUTO) 3.97 MIL/uL (4.00-5.50); RED CELL DISTRIBUTION WIDTH 13.0 % (11.0-15.5); WHITE BLOOD COUNT (AUTO) 6.0 K/uL (4.8-10.8)
[2025-03-02 04:55] LABS: CREATININE 0.6 mg/dL (0.5-1.0); GLOMERULAR FILTR. RATE CALC 102.0 mL/min (>90); GLUCOSE,RANDOM 106.0 mg/dL (70-105); SODIUM SERUM 136.0 mmol/L (136-145); UREA NITROGEN, BLOOD 16.0 mg/dL (7-18)
[2025-03-02] MEDS: ASPIRIN 81MG CHEW TAB PO SCH (10:08)
--- NOTE | 2025-03-02 14:53 | PN ---
[facility] PROGRESS NOTE Date of Service: Mar 02, 2025 Time of Service: 14:[address] Odonnell SUBJECTIVE: [ ] admission date: 02/24/25 PCP: Agnieszka Shi DO chief complaint: Chest pain Primary bell ringer: Dr Jefyr Osorio This is a 59-year-old female presents in ED with chief complaints of chest pain. Onset started this morning at 2:00 a.m. patient was awaken with ch est pain. Reports she has been having chest pain for a week. Location midsternal does not radiate,location midsternal stated the pain on arrival was 10/10 on pain scale. aggravated none: alleviating factors: none. Patient denies palpitation, dizziness, shortness for breath. 12 lead EKG on arrival showed heart rate [address] depression in the lateral Leads. As per ED physician changes in V5 and V6 were not seen in December 2024. Presence of LVH noted anterior STT wave changes were also. ER initiated heparin drip. Was given Full dose Aspirin and Morphine 2 mg IV x1. Troponin 1st set was negative. 02/25/25 patient was seen earlier patient reports she had chest pain overnight 3:00 a.m. patient was given nitroglycerin: continue on Heparin drip; Echo pending no chest pain at this time. she is fully alert oriented x3. 02/26/25 2D echocardiogram revealed a hypokinetic anteroseptal and anterolateral wall. LVEF 40-45%, the patient denies any cardiac symptoms or chest pain. Dr Osorio recommendations: lexiscan in am medical management for now ASA 81 mg daily , Prasugrel 10 mg daily ,Atorvastatin 40 mg daily, Imdur 30 mg daily changed Toprol XL to 25 mg daily patient is fully awake alert oriented x3. out of bed to chair with meals. Denied chest pain palpitation dyspnea. 02/27/25 patient is seen and examined patient underwent Lexiscan pending results. We will continue to monitor patient closely. She is asleep and waking per verbal stimuli primary nurse reports she was having GI problems post Lexiscan. 02/28/25 s/p Lexiscan Reversible large defect in the anterior, septal lucas. TID 1.19. LVEF 39%. Dr Osorio scheduled the patient for Left Heart cath tomorrow. The patient denies chest pain palpitation dyspnea. 03/01/25 patient was evaluated this continues without chest pain or palpitations patient had a Lexiscan stress test is PCI this after the. Patient NPO after breakfast. 03/02 patient was seen by nurse practitioner and physician during rounding in room 429. Patient is s/p left heart catheterization 03/01/[address] Jefry osorio and at this moment he is recommending cardiovascular surgeon for possible CABG evaluation. Once patient will be medically stable we will consult [facility] for evaluation. Continue one-to-one sitter for now. Continue to monitor patient in the meantime. A.m. labs REVIEW OF SYSTEMS a 14 point ROS obtained all relevant positive documented otherwise ROS negative PHYSICAL EXAM GENERAL APPEARANCE: The patient is awake, alert, and oriented, in no acute cardiopulmonary distress. NEUROLOGICAL: Cranial nerves II-XII grossly intact. Motor is 5/5 in bilateral upper and lower extremities proximal to distal. No sensory deficits. HEENT: Face is symmetric. Pupils are equal and reactive. Extraocular movements are intact. NECK: Supple. No JVD. No thyromegaly. No submental, submandibular, pre- /postauricular, occipital or supraclavicular lymphadenopathy. CHEST: Normal chest expansion. No Telemetry. LUNGS: Absence of any rales, rhonchi or any wheezing. CARDIOVASCULAR: Regular. S1 and S2 normal. No appreciable rubs, murmurs or gallops. ABDOMEN: Soft, nontender, and nondistended. There is no rebound, voluntary gu arding, or rigidity. : Deferred. No [place]. EXTREMITIES: Non-edematous and not cyanotic. No clubbing. Good capillary refill. SKIN: No skin breakdown. Vital Signs (last 8hr) Date Time Temp Pulse Resp B/P (MAP) Pulse Ox O2 Delivery O2 Flow Rate FiO2 03/02/25 11:35 98.1 56 16 114/56 98 Room Air 03/02/25 07:35 98.2 53 17 120/58 98 Room Air LABS: Laboratory: Test 03/02/25 10:40 03/02/25 03:36 03/01/25 04:33 Range/Units Whole Blood Glucose 130 H 70-110 MG/DL White Blood Count 6.0 4.8-10.8 K/uL Red Blood Count 3.97 L 4.00-5.50 MIL/uL Hemoglobin 12.0 12.0-16.0 g/dL Hematocrit 37.2 36-48 % Mean Corpuscular Volume 93.7 79-99 fL Mean Corpuscular Hemoglobin 30.2 27.0-33.0 pg Mean Corpuscular Hemoglobin Concent 32.3 32.0-36.0 g/dL Red Cell Distribution Width 13.0 11.0-15.5 % Platelet Count 239 130-400 K/uL Mean Platelet Volume 11.3 H 7.5-10.5 fL Nucleated Red Blood Cells 0.0 0.0-0.19 % Sodium Level 136 136-145 mmol/L Potassium Level 3.6 3.5-5.1 mmol/L Chloride Level 104 101-111 mmol/L Carbon Dioxide Level 26 21-32 mmol/L Blood Urea Nitrogen 16 7-18 mg/dL Creatinine 0.6 0.5-1.0 mg/dL Glomerular Filtration Rate Calc 102 >90 mL/min Random Glucose 106 H 70-105 mg/dL Total Calcium 8.8 8.5-10.1 mg/dL Magnesium Level 1.90 1.80-2.40 mg/dL Prothrombin Time 10.8 9.6-11.6 SEC Prothromb Time International Ratio 1.02 0.85-1.15 Activated Partial Thromboplast Time 25.9 L 26.3-35.5 SEC Total Bilirubin 0.5 0.2-1.0 mg/dL Aspartate Amino Transf (AST/SGOT) 21 10-37 U/L Alanine Aminotransferase (ALT/SGPT) 29 12-78 U/L Alkaline Phosphatase 65 50-136 U/L Total Protein 6.9 6.0-8.3 g/dL Albumin 3.5 3.5-5.0 g/dL Current Medications Medications (Trade) Dose Ordered Sig/Toby Route PRN Reason Start Time Stop Time Status Last Admin Dose Admin Acetaminophen (TYLenol 325MG TAB) 650 mg Q4H PRN PO TEMPERATURE GREATER THAN 101.5 02/24/25 07:00 03/26/25 06:59 03/01/25 19:06 650 MG Acetaminophen (TYLenol 325MG TAB) 650 mg Q4H PRN PO MILD PAIN (1-3) 03/02/25 02:30 04/01/25 02:29 03/02/25 02:39 650 MG Aspirin (Aspirin 81mg Chew Tab) 81 mg DAILY PO 02/25/25 09:00 03/01/25 12:33 DC 02/28/25 09:18 81 MG Aspirin (Aspirin 81mg Chew Tab) 81 mg DAILY PO 03/02/25 09:00 04/01/25 08:59 03/02/25 10:08 81 MG Aspirin (Aspirin 81mg Ec Tab) 81 mg DAILY PO 02/24/25 09:00 02/24/25 08:52 DC Atorvastatin Calcium (LIPItor 20MG) 20 mg HS PO 02/24/25 21:00 02/24/25 08:52 DC Atorvastatin Calcium (LIPItor 40MG) 40 mg HS PO 02/24/25 21:00 03/26/25 20:59 03/01/25 21:41 40 MG Citalopram Hydrobromide (CeleXA 20MG TAB) 10 mg DAILY PO 02/25/25 09:00 03/27/25 08:59 03/02/25 10:10 10 MG Dextrose (D50w) 50 ml AD PRN IV HYPOGLYCEMIA PROTOCOL 03/01/25 12:30 03/31/25 12:29 Famotidine (Pepcid 20mg Tab) 20 mg BID PO 02/24/25 09:00 03/26/25 08:59 03/02/25 10:08 20 MG Glucagon (Glucagon 1mg Kit) 1 mg AD PRN IM HYPOGLYCEMIA PROTOCOL 03/01/25 12:30 03/31/25 12:29 Heparin Sodium/ Dextrose 250 ml @ 0 mls/hr PROTOCOL PRN IV PROTOCOL 02/24/25 06:00 02/25/25 05:59 DC 02/25/25 01:09 7.36 MLS/HR Insulin Human Regular (humuLIN R 100 UNIT/ML 3ML) INSULIN SLIDING SCAL... ACHS SQ 02/24/25 11:30 03/26/25 11:29 02/25/25 20:07 4 UNIT Isosorbide Mononitrate (Imdur 30mg Sr) 30 mg DAILY PO 02/24/25 09:00 03/26/25 08:59 03/02/25 10:07 30 MG Magnesium Sulfate 50 ml @ 0 mls/hr PROTOCOL PRN IV low mag level 02/24/25 09:30 03/26/25 09:29 Metoprolol Succinate (TopROL XL) 12.5 mg DAILY PO 02/24/25 09:00 03/26/25 08:59 03/02/25 10:08 12.5 MG Nitroglycerin (Nitrostat) 0.4 mg Q5M PRN SL CHEST PAIN 02/24/25 06:00 02/25/25 03:17 0.4 MG Potassium Chloride 100 ml @ 50 mls/hr AD PRN IV POTASSIUM PROTOCOL 02/24/25 09:30 03/26/25 09:29 Potassium Chloride 100 ml @ 100 mls/hr AD PRN IV POTASSIUM PROTOCOL 02/26/25 11:30 02/27/25 09:49 DC Potassium Chloride (K-Dur/Klor-Con 20meq) 20 meq AD PRN PO POTASSIUM PROTOCOL 02/26/25 11:30 03/28/25 11:29 03/02/25 06:55 20 MEQ Potassium Chloride (KCl 10% Elixir 20meq/15ml) 20 meq AD PRN PO POTASSIUM PROTOCOL 02/26/25 11:30 03/28/25 11:29 Prasugrel (Effient 10mg) 10 mg DAILY PO 02/25/25 09:00 03/01/25 12:54 DC 02/28/25 09:18 10 MG Sodium Chloride 1,000 ml @ 150 mls/hr Q6H40M IV 03/01/25 12:30 03/01/25 16:29 DC 03/01/25 19:04 150 MLS/HR DIAGNOSTICS / RADIOLOGY: [ ] Assessment: unstable angina Rule n ACS s/p Lexiscan Reversible large defect in the anterior, septal lucas. TID 1.19. LVEF 39%. hypercoagulable state on Prasugrel POA functional decline: s/p BKA POA moderated protein calorie malnutrition with muscle atrophy ; BMI 19 POA History of Myocardial infarction 2023 Uncontrolled hypertension POA Hyperlipidemia Uncontrolled diabetes mellitus type 2 with hyperglycemia POA PLAN: Admit: Patient will be on telemetry condition: guarded Status: full code IVF:heplock continue with prasugrel 10 mg po daily on hold for now , will continue Isosorbide ER 30 mg po daily, Atorvastatin [address] osorio increased Toprol XL to 25 mg po daily nitroglycerin 0.4 mg subL, as directed for chest pain. s/p Lexiscan abnormal: Plan for PCI this afternoon Left heart catheterization performed 03/01/2025 abnormal As per cardiology consult cardiovascular surgeon for possible CABG A.m. labs Replace electrolytes as needed as per protocol to keep potassium above 4.0 magnesium 2.0. ac/hs monitoring with SSRI coverage PT services: OOB to chair Supportive measures: DVT ppx, GI ppx all questions answered ATTESTATION BY PHYSICIAN I have seen and examined the patient. I reviewed the documentation, medical decision making, and treatment plan as noted by the mid-level provider above. I agree with the findings and plan of care. MAIKEL ODONNELL MD, [employer] Mar 02, 2025 14:53
[2025-03-02] MEDS: PoTASSium chloRIDE 20MEQ ER 20 MEQ ERTAB PO ONE (19:47)
--- NOTE | 2025-03-02 20:23 | PN ---
SUBJECTIVE: A 59-year-old lady presented with a non-STEMI. She was loaded with Effient on 02/28, and she has been relatively stable. Plan to proceed with surgery at the end of this week. The patient understands the indications for surgery as well as the potential complications of the operation including but not limited to postoperative bleeding, infection, stroke and/or . She understands these as well as associated morbidity and mortality procedure as it relates to her own comorbidities and is expressed in the manner of morbidity and mortality and the current database from [employer], and she wishes to proceed. TID: [id number] RECEIPT: [id number]
[2025-03-03 04:06] VITALS: BP 121/71; PULSE 66; RESP 18; TEMP 98
[2025-03-03 04:27] LABS: IMMATURE GRANULOCYTE ABSOLUTE 0.01 K/uL (0-1); NUCLEATED RED BLOOD CELLS 0.0 % (0.0-0.19); PLATELET COUNT (AUTO) 228 K/uL (130-400); RED BLOOD CELL COUNT(AUTO) 3.54 MIL/uL (4.00-5.50); RED CELL DISTRIBUTION WIDTH 13.2 % (11.0-15.5); WHITE BLOOD COUNT (AUTO) 7.0 K/uL (4.8-10.8)
[2025-03-03 04:42] LABS: ASPARTATE AMINOTRANSFERASE 26.0 U/L (10-37); CREATININE 0.5 mg/dL (0.5-1.0); GLOMERULAR FILTR. RATE CALC 107.0 mL/min (>90); GLUCOSE,RANDOM 172.0 mg/dL (70-105); SODIUM SERUM 138.0 mmol/L (136-145); TOTAL PROTEIN, SERUM 6.5 g/dL (6.0-8.3); UREA NITROGEN, BLOOD 14.0 mg/dL (7-18)
[2025-03-03 08:00] VITALS: BP 103/60; PULSE 51; RESP 17; TEMP 98.6; O2SAT 98
--- NOTE | 2025-03-03 10:06 | PN ---
[facility] CARDIOLOGY PROGRESS NOTE Date Patient Seen: Mar 03, 2025 Time of Visit: 10:04 Interval History: No overnight events. The patient underwent coronary angiogram on 03/01/2025, that revealed severe two-vessel coronary artery disease, CV surgery has been consulted in his awaiting to undergo CABG later this week, the patient currently denies any cardiac symptoms or anginal equivalents. Physical Examination: GENERAL: [No acute distress.] HEAD: [Normal with no signs of head trauma.] EYES: [PERRLA, EOMI, conjunctiva and sclera normal.] ENT: [Hearing grossly intact, normal oropharynx.] NECK: [Supple without JVD. There is no tenderness, lymphadenopathy, or masses. No thyromegaly. Normal carotid upstrokes without bruits.] LUNGS: [Clear breath sounds bilaterally. No wheezes, or rhonchi.] HEART: [Normal rate and rhythm. Normal S1 and S2 without murmurs, gallop or rub.] VASC: [Peripheral pulses +2 bilaterally.] ABD: [Bowel sounds normal, soft, nontender, no masses, no organomegaly. No audible bruits.] : [Not examined] LYMPH: [No lymphadenopathy noted.] EXT: [No clubbing, cyanosis or edema. Right BKA] SKIN: [No rashes or lesions noted.] NEURO: [Awake, alert, and oriented x3. No focal sensory or strength deficits noted.] Laboratory: [ ] Hematology Labs: Test 03/03/25 04:04 Range/Units White Blood Count 7.0 4.8-10.8 K/uL Red Blood Count 3.54 L 4.00-5.50 MIL/uL Hemoglobin 10.9 L 12.0-16.0 g/dL Hematocrit 32.5 L 36-48 % Mean Corpuscular Volume 91.8 79-99 fL Mean Corpuscular Hemoglobin 30.8 27.0-33.0 pg Mean Corpuscular Hemoglobin Concent 33.5 32.0-36.0 g/dL Red Cell Distribution Width 13.2 11.0-15.5 % Platelet Count 228 130-400 K/uL Mean Platelet Volume 11.0 H 7.5-10.5 fL Immature Granulocyte % (Auto) 0.1 0-1 % Neutrophils (%) (Auto) 53.2 40.0-77.0 % Lymphocytes (%) (Auto) 40.0 21.0-51.0 % Monocytes (%) (Auto) 5.7 3.0-13.0 % Eosinophils (%) (Auto) 0.7 0.0-8.0 % Basophils (%) (Auto) 0.3 0.0-5.0 % Neutrophils # (Auto) 3.7 1.8-7.7 K/uL Lymphocytes # (Auto) 2.8 1.0-4.8 K/uL Monocytes # (Auto) 0.4 0.1-1.0 K/uL Eosinophils # (Auto) 0.05 0.00-0.70 K/uL Basophils # (Auto) 0.02 0.00-0.20 K/uL Absolute Immature Granulocyte (auto 0.01 0-1 K/uL Nucleated Red Blood Cells 0.0 0.0-0.19 % Chemistry Labs: Test 03/03/25 05:12 03/03/25 04:04 Range/Units Whole Blood Glucose 124 H 70-110 MG/DL Sodium Level 138 136-145 mmol/L Potassium Level 4.8 3.5-5.1 mmol/L Chloride Level 103 101-111 mmol/L Carbon Dioxide Level 30 21-32 mmol/L Blood Urea Nitrogen 14 7-18 mg/dL Creatinine 0.5 0.5-1.0 mg/dL Glomerular Filtration Rate Calc 107 >90 mL/min Random Glucose 172 H 70-105 mg/dL Total Calcium 9.3 8.5-10.1 mg/dL Magnesium Level 2.00 1.80-2.40 mg/dL Total Bilirubin 0.3 0.2-1.0 mg/dL Aspartate Amino Transf (AST/SGOT) 26 10-37 U/L Alanine Aminotransferase (ALT/SGPT) 29 12-78 U/L Alkaline Phosphatase 62 50-136 U/L Total Protein 6.5 6.0-8.3 g/dL Albumin 3.1 L 3.5-5.0 g/dL Diagnostics / Radiology: [Copy/Paste Echos/Imaging Report here] Impression and Plan: 1. Unstable Angina 2. Remote anterior wall myocardial infarction July 2024 complicated by cardiogenic shock requiring Impella support for PCI with subsequent ischemic leg requiring [id number] amputation 3. CAD status post stenting of the proximal LAD proximal circumflex and mid circumflex artery as above with documented progression of disease December 2024 managed medically because of concern the patient would not be compliant with dual antiplatelet therapy 4. Diabetes mellitus type 2 5. Dyslipidemia 6. Hypertension ] #Angina The patient presented with chest pain ACS has been ruled out , troponin has been negative Currently denies any chest pain , palpitations, dyspnea or any other anginal equivalents. ASA 81 mg daily , Prasugrel 10 mg daily ,Atorvastatin 40 mg daily, Imdur 30 mg daily, and Toprol XL to 25 mg daily Given ACS was ruled out we will stop IV heparin 2D echocardiogram revealed a hypokinetic anteroseptal and anterolateral wall. LVEF 40-45% (unchanged from prior July 2024) Coronary angiogram on 03/01/2025 revealed severe two-vessel CAD CV surgery was consulted, and is awaiting CABG later this week Aggressive risk factor modification. Hold/defer the use of any P2Y12 inhibitors while we await CV surgery recommendations Continue aspirin 81 mg daily and high-intensity Lipitor and antianginals including beta-omid/ Thank you for this consult , cardiology will continue to follow along , Jefry Carrasco MD ATTESTATION BY PHYSICIAN I have seen and examined the patient, reviewed the above documentation, participated in medical decision making, made necessary modifications, and agree with the treatment plan as documented by my mid-level provider above. MD JESSY Catalan JAMES R MD Mar 03, 2025 10:06
[2025-03-03 12:00] VITALS: BP 103/58; PULSE 52; RESP 17; TEMP 98.4
--- NOTE | 2025-03-03 13:16 | PN ---
[facility] PROGRESS NOTE Date of Service: Mar 03, 2025 Time of Service: 13:[address] Odonnell SUBJECTIVE: [ ] admission date: 02/24/25 PCP: Agnieszka Shi DO chief complaint: Chest pain Primary window draper: Dr Jefry Osorio This is a 59-year-old female presents in ED with chief complaints of chest pain. Onset started this morning at 2:00 a.m. patient was awaken with c hest pain. Reports she has been having chest pain for a week. Location midsternal does not radiate,location midsternal stated the pain on arrival was 10/10 on pain scale. aggravated none: alleviating factors: none. Patient denies palpitation, dizziness, shortness for breath. 12 lead EKG on arrival showed heart rate [address] depression in the lateral Leads. As per ED physician changes in V5 and V6 were not seen in December 2024. Presence of LVH noted anterior STT wave changes were also. ER initiated heparin drip. Was given Full dose Aspirin and Morphine 2 mg IV x1. Troponin 1st set was negative. 02/25/25 patient was seen earlier patient reports she had chest pain overnight 3:00 a.m. patient was given nitroglycerin: continue on Heparin drip; Echo pending no chest pain at this time. she is fully alert oriented x3. 02/26/25 2D echocardiogram revealed a hypokinetic anteroseptal and anterolateral wall. LVEF 40-45%, the patient denies any cardiac symptoms or chest pain. Dr Osorio recommendations: lexiscan in am medical management for now ASA 81 mg daily , Prasugrel 10 mg daily ,Atorvastatin 40 mg daily, Imdur 30 mg daily changed Toprol XL to 25 mg daily patient is fully awake alert oriented x3. out of bed to chair with meals. Denied chest pain palpitation dyspnea. 02/27/25 patient is seen and examined patient underwent Lexiscan pending results. We will continue to monitor patient closely. She is asleep and waking per verbal stimuli primary nurse reports she was having GI problems post Lexiscan. 02/28/25 s/p Lexiscan Reversible large defect in the anterior, septal lucas. TID 1.19. LVEF 39%. Dr Osorio scheduled the patient for Left Heart cath tomorrow. The patient denies chest pain palpitation dyspnea. 03/01/25 patient was evaluated this continues without chest pain or palpitations patient had a Lexiscan stress test is PCI this after the. Patient NPO after breakfast. 03/02 patient was seen by nurse practitioner and physician during rounding in room 429. Patient is s/p left heart catheterization 03/01/[address] Jefry osorio and at this moment he is recommending cardiovascular surgeon for possible CABG evaluation. Once patient will be medically stable we will consult [facility] for evaluation. Continue one-to-one sitter for now. Continue to monitor patient in the meantime. A.m. labs 03/03 patient was seen by nurse practitioner physician during rounding. Patient was seen by cardiovascular surgeon and is pending CABG as per note at the end of this week. As per RN patient's blood pressure has been on lower side. We will order midodrine 10 mg p.r.n. t.i.d. for systolic less than 100. As per cardi ologist Dr. Jefry osorio who was rounding okay with the above-stated medicine. We will continue to monitor patient in the meantime. A.m. labs. REVIEW OF SYSTEMS a 14 point ROS obtained all relevant positive documented otherwise ROS negative PHYSICAL EXAM GENERAL APPEARANCE: The patient is awake, alert, and oriented, in no acute cardiopulmonary distress. NEUROLOGICAL: Cranial nerves II-XII grossly intact. Motor is 5/5 in bilateral upper and lower extremities proximal to distal. No sensory deficits. HEENT: Face is symmetric. Pupils are equal and reactive. Extraocular movements are intact. NECK: Supple. No JVD. No thyromegaly. No submental, submandibular, pre- /postauricular, occipital or supraclavicular lymphadenopathy. CHEST: Normal chest expansion. No Telemetry. LUNGS: Absence of any rales, rhonchi or any wheezing. CARDIOVASCULAR: Regular. S1 and S2 normal. No appreciable rubs, murmurs or gallops. ABDOMEN: Soft, nontender, and nondistended. There is no rebound, voluntary guarding, or rigidity. : Deferred. No [place]. EXTREMITIES: Non-edematous and not cyanotic. No clubbing. Good capillary refill. SKIN: No skin breakdown. Vital Signs (last 8hr) Date Time Temp Pulse Resp B/P (MAP) Pulse Ox O2 Delivery O2 Flow Rate FiO2 03/03/25 12:00 98.4 52 17 103/58 98 Room Air 03/03/25 08:00 98 Room Air* 0 21 03/03/25 08:00 98.6 51 17 103/60 98 Room Air LABS: Laboratory: Test 03/03/25 11:09 03/03/25 04:04 Range/Units Whole Blood Glucose 116 H 70-110 MG/DL White Blood Count 7.0 4.8-10.8 K/uL Red Blood Count 3.54 L 4.00-5.50 MIL/uL Hemoglobin 10.9 L 12.0-16.0 g/dL Hematocrit 32.5 L 36-48 % Mean Corpuscular Volume 91.8 79-99 fL Mean Corpuscular Hemoglobin 30.8 27.0-33.0 pg Mean Corpuscular Hemoglobin Concent 33.5 32.0-36.0 g/dL Red Cell Distribution Width 13.2 11.0-15.5 % Platelet Count 228 130-400 K/uL Mean Platelet Volume 11.0 H 7.5-10.5 fL Immature Granulocyte % (Auto) 0.1 0-1 % Neutrophils (%) (Auto) 53.2 40.0-77.0 % Lymphocytes (%) (Auto) 40.0 21.0-51.0 % Monocytes (%) (Auto) 5.7 3.0-13.0 % Eosinophils (%) (Auto) 0.7 0.0-8.0 % Basophils (%) (Auto) 0.3 0.0-5.0 % Neutrophils # (Auto) 3.7 1.8-7.7 K/uL Lymphocytes # (Auto) 2.8 1.0-4.8 K/uL Monocytes # (Auto) 0.4 0.1-1.0 K/uL Eosinophils # (Auto) 0.05 0.00-0.70 K/uL Basophils # (Auto) 0.02 0.00-0.20 K/uL Absolute Immature Granulocyte (auto 0.01 0-1 K/uL Nucleated Red Blood Cells 0.0 0.0-0.19 % Sodium Level 138 136-145 mmol/L Potassium Level 4.8 3.5-5.1 mmol/L Chloride Level 103 101-111 mmol/L Carbon Dioxide Level 30 21-32 mmol/L Blood Urea Nitrogen 14 7-18 mg/dL Creatinine 0.5 0.5-1.0 mg/dL Glomerular Filtration Rate Calc 107 >90 mL/min Random Glucose 172 H 70-105 mg/dL Total Calcium 9.3 8.5-10.1 mg/dL Magnesium Level 2.00 1.80-2.40 mg/dL Total Bilirubin 0.3 0.2-1.0 mg/dL Aspartate Amino Transf (AST/SGOT) 26 10-37 U/L Alanine Aminotransferase (ALT/SGPT) 29 12-78 U/L Alkaline Phosphatase 62 50-136 U/L Total Protein 6.5 6.0-8.3 g/dL Albumin 3.1 L 3.5-5.0 g/dL Current Medications Medications (Trade) Dose Ordered Sig/Toby Route PRN Reason Start Time Stop Time Status Last Admin Dose Admin Acetaminophen (TYLenol 325MG TAB) 650 mg Q4H PRN PO TEMPERATURE GREATER THAN 101.5 02/24/25 07:00 03/26/25 06:59 03/01/25 19:06 650 MG Acetaminophen (TYLenol 325MG TAB) 650 mg Q4H PRN PO MILD PAIN (1-3) 03/02/25 02:30 04/01/25 02:29 03/02/25 02:39 650 MG Aspirin (Aspirin 81mg Chew Tab) 81 mg DAILY PO 02/25/25 09:00 03/01/25 12:33 DC 02/28/25 09:18 81 MG Aspirin (Aspirin 81mg Chew Tab) 81 mg DAILY PO 03/02/25 09:00 04/01/25 08:59 03/03/25 08:37 81 MG Aspirin (Aspirin 81mg Ec Tab) 81 mg DAILY PO 02/24/25 09:00 02/24/25 08:52 DC Atorvastatin Calcium (LIPItor 20MG) 20 mg HS PO 02/24/25 21:00 02/24/25 08:52 DC Atorvastatin Calcium (LIPItor 40MG) 40 mg HS PO 02/24/25 21:00 03/26/25 20:59 03/02/25 21:31 40 MG Citalopram Hydrobromide (CeleXA 20MG TAB) 10 mg DAILY PO 02/25/25 09:00 03/27/25 08:59 03/03/25 08:36 10 MG Dextrose (D50w) 50 ml AD PRN IV HYPOGLYCEMIA PROTOCOL 03/01/25 12:30 03/31/25 12:29 Famotidine (Pepcid 20mg Tab) 20 mg BID PO 02/24/25 09:00 03/26/25 08:59 03/03/25 08:36 20 MG Glucagon (Glucagon 1mg Kit) 1 mg AD PRN IM HYPOGLYCEMIA PROTOCOL 03/01/25 12:30 03/31/25 12:29 Heparin Sodium/ Dextrose 250 ml @ 0 mls/hr PROTOCOL PRN IV PROTOCOL 02/24/25 06:00 02/25/25 05:59 DC 02/25/25 01:09 7.36 MLS/HR Insulin Human Regular (humuLIN R 100 UNIT/ML 3ML) INSULIN SLIDING SCAL... ACHS SQ 02/24/25 11:30 03/26/25 11:29 02/25/25 20:07 4 UNIT Isosorbide Mononitrate (Imdur 30mg Sr) 30 mg DAILY PO 02/24/25 09:00 03/26/25 08:59 03/03/25 08:37 30 MG Magnesium Sulfate 50 ml @ 0 mls/hr PROTOCOL PRN IV low mag level 02/24/25 09:30 03/26/25 09:29 Metoprolol Succinate (TopROL XL) 12.5 mg DAILY PO 02/24/25 09:00 03/26/25 08:59 03/03/25 08:36 12.5 MG Nitroglycerin (Nitrostat) 0.4 mg Q5M PRN SL CHEST PAIN 02/24/25 06:00 02/25/25 03:17 0.4 MG Potassium Chloride 100 ml @ 50 mls/hr AD PRN IV POTASSIUM PROTOCOL 02/24/25 09:30 03/26/25 09:29 Potassium Chloride 100 ml @ 100 mls/hr AD PRN IV POTASSIUM PROTOCOL 02/26/25 11:30 02/27/25 09:49 DC Potassium Chloride (K-Dur/Klor-Con 20meq) 20 meq AD PRN PO POTASSIUM PROTOCOL 02/26/25 11:30 03/28/25 11:29 03/02/25 06:55 20 MEQ Potassium Chloride (KCl 10% Elixir 20meq/15ml) 20 meq AD PRN PO POTASSIUM PROTOCOL 02/26/25 11:30 03/28/25 11:29 Prasugrel (Effient 10mg) 10 mg DAILY PO 02/25/25 09:00 03/01/25 12:54 DC 02/28/25 09:18 10 MG Sodium Chloride 1,000 ml @ 150 mls/hr Q6H40M IV 03/01/25 12:30 03/01/25 16:29 DC 03/01/25 19:04 150 MLS/HR DIAGNOSTICS / RADIOLOGY: [ ] Assessment: unstable angina Rule n ACS s/p Lexiscan Reversible large defect in the anterior, septal lucas. TID 1.19. LVEF 39%. hypercoagulable state on Prasugrel POA functional decline: s/p BKA POA moderated protein calorie malnutrition with muscle atrophy ; BMI 19 POA History of Myocardial infarction 2023 Uncontrolled hypertension POA Hyperlipidemia Uncontrolled diabetes mellitus type 2 with hyperglycemia POA PLAN: Admit: Patient will be on telemetry condition: guarded Status: full code IVF:heplock continue with prasugrel 10 mg po daily on hold for now , will continue Isosorbide ER 30 mg po daily, Atorvastatin 40 mg po HS. Patient will be started on midodrine 10 mg t.i.d. PRN for systolic blood pressure less than 100. nitroglycerin 0.4 mg subL, as directed for chest pain. s/p Lexiscan abnormal: Plan for PCI this afternoon Left heart catheterization performed 03/01/2025 abnormal As per cardiology consult cardiovascular surgeon for possible CABG Possible CABG at the end off this week as per cardiovascular surgeon. A.m. labs Replace electrolytes as needed as per protocol to keep potassium above 4.0 magnesium 2.0. ac/hs monitoring with SSRI coverage PT services: OOB to chair Supportive measures: DVT ppx, GI ppx all questions answered ATTESTATION BY PHYSICIAN I have seen and examined the patient. I reviewed the documentation, medical decision making, and treatment plan as noted by the mid-level provider above. I agree with the findings and plan of care. MAIKEL ODONNELL MD, [employer] Mar 03, 2025 13:16 MAIKEL ODONNELL MD Mar 03, 2025 13:49
[2025-03-03 16:00] VITALS: BP 130/74; PULSE 53; RESP 17; TEMP 98.4
[2025-03-03] MEDS ORDERED: ALBUMIN (HUMAN) 25% 50 ML IV ONE (18:14)
[2025-03-03 20:00] VITALS: BP 114/54; PULSE 46; RESP 18; TEMP 98.3
--- NOTE | 2025-03-03 21:23 | PN ---
SUBJECTIVE: Status post admission to the hospital with non-STEMI. The patient was on Effient and she is asymptomatic in the hospital. The patient understands the indications for the procedure and knows that she will require surgery; however, we are delaying the procedure due to the Effient. We will wait approximately 5-7 days and then we will proceed with the surgical revascularization. TID: [id number] RECEIPT: [id number]
[2025-03-03 22:40] VITALS: O2SAT 96
[2025-03-04] VITALS (8 sets, daily range): BP systolic 103–126; BP diastolic 46–74; PULSE 40–54; RESP 17–18; TEMP 97.9–98.4; O2SAT 99
[2025-03-04 04:03] LABS: IMMATURE GRANULOCYTE ABSOLUTE 0.01 K/uL (0-1); NUCLEATED RED BLOOD CELLS 0.0 % (0.0-0.19); PLATELET COUNT (AUTO) 256 K/uL (130-400); RED BLOOD CELL COUNT(AUTO) 3.64 MIL/uL (4.00-5.50); RED CELL DISTRIBUTION WIDTH 13.3 % (11.0-15.5); WHITE BLOOD COUNT (AUTO) 7.3 K/uL (4.8-10.8)
[2025-03-04 04:31] LABS: ASPARTATE AMINOTRANSFERASE 23.0 U/L (10-37); CREATININE 0.5 mg/dL (0.5-1.0); GLOMERULAR FILTR. RATE CALC 107.0 mL/min (>90); GLUCOSE,RANDOM 107.0 mg/dL (70-105); SODIUM SERUM 139.0 mmol/L (136-145); TOTAL PROTEIN, SERUM 6.6 g/dL (6.0-8.3); UREA NITROGEN, BLOOD 12.0 mg/dL (7-18)
--- NOTE | 2025-03-04 10:51 | PN ---
[facility] CARDIOLOGY PROGRESS NOTE Date Patient Seen: Mar 04, 2025 Time of Visit: 10:50 Interval History: No overnight events. The patient currently denies any cardiac symptoms or anginal equivalents , pending CABG Physical Examination: GENERAL: [No acute distress.] HEAD: [Normal with no signs of head trauma.] EYES: [PERRLA, EOMI, conjunctiva and sclera normal.] ENT: [Hearing grossly intact, normal oropharynx.] NECK: [Supple without JVD. There is no tenderness, lymphadenopathy, or masses. No thyromegaly. Normal carotid upstrokes without bruits.] LUNGS: [Clear breath sounds bilaterally. No wheezes, or rhonchi.] HEART: [Normal rate and rhythm. Normal S1 and S2 without murmurs, gallop or rub.] VASC: [Peripheral pulses +2 bilaterally.] ABD: [Bowel sounds normal, soft, nontender, no masses, no organomegaly. No audible bruits.] : [Not examined] LYMPH: [No lymphadenopathy noted.] EXT: [No clubbing, cyanosis or edema. Right BKA] SKIN: [No rashes or lesions noted.] NEURO: [Awake, alert, and oriented x3. No focal sensory or strength deficits noted.] Laboratory: [ ] Hematology Labs: Test 03/04/25 03:27 Range/Units White Blood Count 7.3 4.8-10.8 K/uL Red Blood Count 3.64 L 4.00-5.50 MIL/uL Hemoglobin 11.2 L 12.0-16.0 g/dL Hematocrit 33.4 L 36-48 % Mean Corpuscular Volume 91.8 79-99 fL Mean Corpuscular Hemoglobin 30.8 27.0-33.0 pg Mean Corpuscular Hemoglobin Concent 33.5 32.0-36.0 g/dL Red Cell Distribution Width 13.3 11.0-15.5 % Platelet Count 256 130-400 K/uL Mean Platelet Volume 11.4 H 7.5-10.5 fL Immature Granulocyte % (Auto) 0.1 0-1 % Neutrophils (%) (Auto) 43.7 40.0-77.0 % Lymphocytes (%) (Auto) 48.0 21.0-51.0 % Monocytes (%) (Auto) 6.3 3.0-13.0 % Eosinophils (%) (Auto) 1.6 0.0-8.0 % Basophils (%) (Auto) 0.3 0.0-5.0 % Neutrophils # (Auto) 3.2 1.8-7.7 K/uL Lymphocytes # (Auto) 3.5 1.0-4.8 K/uL Monocytes # (Auto) 0.5 0.1-1.0 K/uL Eosinophils # (Auto) 0.12 0.00-0.70 K/uL Basophils # (Auto) 0.02 0.00-0.20 K/uL Absolute Immature Granulocyte (auto 0.01 0-1 K/uL Nucleated Red Blood Cells 0.0 0.0-0.19 % Chemistry Labs: Test 03/04/25 05:16 03/04/25 03:27 Range/Units Whole Blood Glucose 103 70-110 MG/DL Sodium Level 139 136-145 mmol/L Potassium Level 4.0 3.5-5.1 mmol/L Chloride Level 103 101-111 mmol/L Carbon Dioxide Level 30 21-32 mmol/L Blood Urea Nitrogen 12 7-18 mg/dL Creatinine 0.5 0.5-1.0 mg/dL Glomerular Filtration Rate Calc 107 >90 mL/min Random Glucose 107 H 70-105 mg/dL Total Calcium 9.7 8.5-10.1 mg/dL Magnesium Level 2.10 1.80-2.40 mg/dL Total Bilirubin 0.3 0.2-1.0 mg/dL Aspartate Amino Transf (AST/SGOT) 23 10-37 U/L Alanine Aminotransferase (ALT/SGPT) 29 12-78 U/L Alkaline Phosphatase 63 50-136 U/L Total Protein 6.6 6.0-8.3 g/dL Albumin 3.4 L 3.5-5.0 g/dL Diagnostics / Radiology: [Copy/Paste Echos/Imaging Report here] Impression and Plan: 1. Unstable Angina 2. Remote anterior wall myocardial infarction July 2024 complicated by cardiogenic shock requiring Impella support for PCI with subsequent ischemic leg requiring [id number] amputation 3. CAD status post stenting of the proximal LAD proximal circumflex and mid circumflex artery as above with documented progression of disease December 2024 managed medically because of concern the patient would not be compliant with dual antiplatelet therapy 4. Diabetes mellitus type 2 5. Dyslipidemia 6. Hypertension ] #Angina The patient presented with chest pain ACS has been ruled out , troponin has been negative Currently denies any chest pain , palpitations, dyspnea or any other anginal equivalents. ASA 81 mg daily , Prasugrel 10 mg daily ,Atorvastatin 40 mg daily, Imdur 30 mg daily, and Toprol XL to 25 mg daily Given ACS was ruled out we will stop IV heparin 2D echocardiogram revealed a hypokinetic anteroseptal and anterolateral wall. LVEF 40-45% (unchanged from prior July 2024) Coronary angiogram on 03/01/2025 revealed severe two-vessel CAD CV surgery was consulted, and is awaiting CABG tomorrow morning . NPO after midnight Aggressive risk factor modification. Hold/defer the use of any P2Y12 inhibitors while we await CV surgery recommendations Continue aspirin 81 mg daily and high-intensity Lipitor and antianginals including beta-omid/ Thank you for this consult , cardiology will continue to follow along ,post operatively Jefry Carrasco MD ATTESTATION BY PHYSICIAN I have seen and examined the patient, reviewed the above documentation, participated in medical decision making, made necessary modifications, and agree with the treatment plan as documented by my mid-level provider above. MD JESSY Catalan JAMES R MD Mar 04, 2025 10:51
--- NOTE | 2025-03-04 15:38 | PN ---
[facility] PROGRESS NOTE Date of Service: Mar 04, 2025 Time of Service: 15:[address] 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 Onset started this morning at 2:00 a.m. patient was awaken with c hest pain. Reports she has been having chest pain for a week. Location midsternal does not radiate,location midsternal stated the pain on arrival was 10/10 on pain scale. aggravated none: alleviating factors: none. Patient denies palpitation, dizziness, shortness for breath. 12 lead EKG on arrival showed heart rate [address] depression in the lateral Leads. As per ED physician changes in V5 and V6 were not seen in December 2024. Presence of LVH noted anterior STT wave changes were also. ER initiated heparin drip. Was given Full dose Aspirin and Morphine 2 mg IV x1. Troponin 1st set was negative. 02/25/25 patient was seen earlier patient reports she had chest pain overnight 3:00 a.m. patient was given nitroglycerin: continue on Heparin drip; Echo pending no chest pain at this time. she is fully alert oriented x3. 02/26/25 2D echocardiogram revealed a hypokinetic anteroseptal and anterolateral wall. LVEF 40-45%, the patient denies any cardiac symptoms or chest pain. Dr Osorio recommendations: lexiscan in am medical management for now ASA 81 mg daily , Prasugrel 10 mg daily ,Atorvastatin 40 mg daily, Imdur 30 mg daily changed Toprol XL to 25 mg daily patient is fully awake alert oriented x3. out of bed to chair with meals. Denied chest pain palpitation dyspnea. 02/27/25 patient is seen and examined patient underwent Lexiscan pending results. We will continue to monitor patient closely. She is asleep and waking per verbal stimuli primary nurse reports she was having GI problems post Lexiscan. 02/28/25 s/p Lexiscan Reversible large defect in the anterior, septal lucas. TID 1.19. LVEF 39%. Dr Osorio scheduled the patient for Left Heart cath tomorrow. The patient denies chest pain palpitation dyspnea. 03/01/25 patient was evaluated this continues without chest pain or palpitations patient had a Lexiscan stress test is PCI this after the. Patient NPO after breakfast. 03/02 patient was seen by nurse practitioner and physician during rounding in room 429. Patient is s/p left heart catheterization 03/01/[address] Jefry osorio and at this moment he is recommending cardiovascular surgeon for possible CABG evaluation. Once patient will be medically stable we will consult [facility] for evaluation. Continue one-to-one sitter for now. Continue to monitor patient in the meantime. A.m. labs 03/03 patient was seen by nurse practitioner physician during rounding. Patient was seen by cardiovascular surgeon and is pending CABG as per note at the end of this week. As per RN patient's blood pressure has been on lower side. We will order midodrine 10 mg p.r.n. t.i.d. for systolic less than 100. As per cardi ologist Dr. Jefry osorio who was rounding okay with the above-stated medicine. We will continue to monitor patient in the meantime. A.m. labs. 03/04 patient was seen by nurse practitioner and physician during rounding. Patient was evaluated by the cardiovascular surgeon and he is came to perform CABG once the patient will be off Effient for 5 to 7 days. Last dose that was administered to the patient of Effient 10 mg was given on 03/01/2025 at 12:16 p.m. we will continue to monitor patient in the meantime. A.m. labs REVIEW OF SYSTEMS a 14 point ROS obtained all relevant positive documented otherwise ROS negative PHYSICAL EXAM GENERAL APPEARANCE: The patient is awake, alert, and oriented, in no acute cardiopulmonary distress. NEUROLOGICAL: Cranial nerves II-XII grossly intact. Motor is 5/5 in bilateral upper and lower extremities proximal to distal. No sensory deficits. HEENT: Face is symmetric. Pupils are equal and reactive. Extraocular movements are intact. NECK: Supple. No JVD. No thyromegaly. No submental, submandibular, pre- /postauricular, occipital or supraclavicular lymphadenopathy. CHEST: Normal chest expansion. No Telemetry. LUNGS: Absence of any rales, rhonchi or any wheezing. CARDIOVASCULAR: Regular. S1 and S2 normal. No appreciable rubs, murmurs or gallops. ABDOMEN: Soft, nontender, and nondistended. There is no rebound, voluntary guarding, or rigidity. : Deferred. No Whitfield. EXTREMITIES: Non-edematous and not cyanotic. No clubbing. Good capillary refill. SKIN: No skin breakdown. Vital Signs (last 8hr) Date Time Temp Pulse Resp B/P (MAP) Pulse Ox O2 Delivery O2 Flow Rate FiO2 03/04/25 12:00 97.9 45 18 123/67 100 Room Air 03/04/25 08:00 98.2 43 17 107/58 99 Room Air 03/04/25 08:00 99 Room Air* 0 21 LABS: Laboratory: Test 03/04/25 12:10 03/04/25 03:27 Range/Units Whole Blood Glucose 150 H 70-110 MG/DL White Blood Count 7.3 4.8-10.8 K/uL Red Blood Count 3.64 L 4.00-5.50 MIL/uL Hemoglobin 11.2 L 12.0-16.0 g/dL Hematocrit 33.4 L 36-48 % Mean Corpuscular Volume 91.8 79-99 fL Mean Corpuscular Hemoglobin 30.8 27.0-33.0 pg Mean Corpuscular Hemoglobin Concent 33.5 32.0-36.0 g/dL Red Cell Distribution Width 13.3 11.0-15.5 % Platelet Count 256 130-400 K/uL Mean Platelet Volume 11.4 H 7.5-10.5 fL Immature Granulocyte % (Auto) 0.1 0-1 % Neutrophils (%) (Auto) 43.7 40.0-77.0 % Lymphocytes (%) (Auto) 48.0 21.0-51.0 % Monocytes (%) (Auto) 6.3 3.0-13.0 % Eosinophils (%) (Auto) 1.6 0.0-8.0 % Basophils (%) (Auto) 0.3 0.0-5.0 % Neutrophils # (Auto) 3.2 1.8-7.7 K/uL Lymphocytes # (Auto) 3.5 1.0-4.8 K/uL Monocytes # (Auto) 0.5 0.1-1.0 K/uL Eosinophils # (Auto) 0.12 0.00-0.70 K/uL Basophils # (Auto) 0.02 0.00-0.20 K/uL Absolute Immature Granulocyte (auto 0.01 0-1 K/uL Nucleated Red Blood Cells 0.0 0.0-0.19 % Sodium Level 139 136-145 mmol/L Potassium Level 4.0 3.5-5.1 mmol/L Chloride Level 103 101-111 mmol/L Carbon Dioxide Level 30 21-32 mmol/L Blood Urea Nitrogen 12 7-18 mg/dL Creatinine 0.5 0.5-1.0 mg/dL Glomerular Filtration Rate Calc 107 >90 mL/min Random Glucose 107 H 70-105 mg/dL Total Calcium 9.7 8.5-10.1 mg/dL Magnesium Level 2.10 1.80-2.40 mg/dL Total Bilirubin 0.3 0.2-1.0 mg/dL Aspartate Amino Transf (AST/SGOT) 23 10-37 U/L Alanine Aminotransferase (ALT/SGPT) 29 12-78 U/L Alkaline Phosphatase 63 50-136 U/L Total Protein 6.6 6.0-8.3 g/dL Albumin 3.4 L 3.5-5.0 g/dL Current Medications Medications (Trade) Dose Ordered Sig/Toby Route PRN Reason Start Time Stop Time Status Last Admin Dose Admin Acetaminophen (TYLenol 325MG TAB) 650 mg Q4H PRN PO TEMPERATURE GREATER THAN 101.5 02/24/25 07:00 03/26/25 06:59 03/01/25 19:06 650 MG Acetaminophen (TYLenol 325MG TAB) 650 mg Q4H PRN PO MILD PAIN (1-3) 03/02/25 02:30 04/01/25 02:29 03/04/25 10:39 650 MG Aspirin (Aspirin 81mg Chew Tab) 81 mg DAILY PO 02/25/25 09:00 03/01/25 12:33 DC 02/28/25 09:18 81 MG Aspirin (Aspirin 81mg Chew Tab) 81 mg DAILY PO 03/02/25 09:00 04/01/25 08:59 03/04/25 08:29 81 MG Aspirin (Aspirin 81mg Ec Tab) 81 mg DAILY PO 02/24/25 09:00 02/24/25 08:52 DC Atorvastatin Calcium (LIPItor 20MG) 20 mg HS PO 02/24/25 21:00 02/24/25 08:52 DC Atorvastatin Calcium (LIPItor 40MG) 40 mg HS PO 02/24/25 21:00 03/26/25 20:59 03/03/25 22:32 40 MG Citalopram Hydrobromide (CeleXA 20MG TAB) 10 mg DAILY PO 02/25/25 09:00 03/27/25 08:59 03/04/25 08:30 10 MG Dextrose (D50w) 50 ml AD PRN IV HYPOGLYCEMIA PROTOCOL 03/01/25 12:30 03/31/25 12:29 Docusate Sodium (COLace 100MG CAP) 100 mg BID PO 03/03/25 21:00 03/03/25 16:22 DC Famotidine (Pepcid 20mg Tab) 20 mg BID PO 02/24/25 09:00 03/26/25 08:59 03/04/25 08:30 20 MG Glucagon (Glucagon 1mg Kit) 1 mg AD PRN IM HYPOGLYCEMIA PROTOCOL 03/01/25 12:30 03/31/25 12:29 Heparin Sodium/ Dextrose 250 ml @ 0 mls/hr PROTOCOL PRN IV PROTOCOL 02/24/25 06:00 02/25/25 05:59 DC 02/25/25 01:09 7.36 MLS/HR Insulin Human Regular (humuLIN R 100 UNIT/ML 3ML) INSULIN SLIDING SCAL... ACHS SQ 02/24/25 11:30 03/26/25 11:29 02/25/25 20:07 4 UNIT Isosorbide Mononitrate (Imdur 30mg Sr) 30 mg DAILY PO 02/24/25 09:00 03/26/25 08:59 03/04/25 08:29 30 MG Ketorolac Tromethamine (ketOROlac troMETHamine) 15 mg Q6H PRN PO MODERATE PAIN (4-6) 03/03/25 18:00 03/03/25 16:22 DC Magnesium Sulfate 50 ml @ 0 mls/hr PROTOCOL PRN IV low mag level 02/24/25 09:30 03/26/25 09:29 Metoprolol Succinate (TopROL XL) 12.5 mg DAILY PO 02/24/25 09:00 03/26/25 08:59 03/03/25 08:36 12.5 MG Midodrine (PROAMatine 5 MG TABLET) 10 mg TID PO 03/03/25 14:00 7/18/25 13:59 03/04/25 08:30 10 MG Nitroglycerin (Nitrostat) 0.4 mg Q5M PRN SL CHEST PAIN 02/24/25 06:00 02/25/25 03:17 0.4 MG Potassium Chloride 100 ml @ 50 mls/hr AD PRN IV POTASSIUM PROTOCOL 02/24/25 09:30 03/26/25 09:29 Potassium Chloride 100 ml @ 100 mls/hr AD PRN IV POTASSIUM PROTOCOL 02/26/25 11:30 02/27/25 09:49 DC Potassium Chloride (K-Dur/Klor-Con 20meq) 20 meq AD PRN PO POTASSIUM PROTOCOL 02/26/25 11:30 03/28/25 11:29 03/02/25 06:55 20 MEQ Potassium Chloride (KCl 10% Elixir 20meq/15ml) 20 meq AD PRN PO POTASSIUM PROTOCOL 02/26/25 11:30 03/28/25 11:29 Prasugrel (Effient 10mg) 10 mg DAILY PO 02/25/25 09:00 03/01/25 12:54 DC 02/28/25 09:18 10 MG Sodium Chloride 1,000 ml @ 150 mls/hr Q6H40M IV 03/01/25 12:30 03/01/25 16:29 DC 03/01/25 19:04 150 MLS/HR DIAGNOSTICS / RADIOLOGY: [ ] Assessment: unstable angina Rule n ACS s/p Lexiscan Reversible large defect in the anterior, septal lucas. TID 1.19. LVEF 39%. hypercoagulable state on Prasugrel POA functional decline: s/p BKA POA moderated protein calorie malnutrition with muscle atrophy ; BMI 19 POA History of Myocardial infarction 2023 Uncontrolled hypertension POA Hyperlipidemia Uncontrolled diabetes mellitus type 2 with hyperglycemia POA PLAN: Admit: Patient will be on telemetry condition: guarded Status: full code IVF:heplock prasugrel 10 mg po daily on hold for now , will continue Isosorbide ER 30 mg po daily, Atorvastatin 40 mg po HS. Patient will be started on midodrine 10 mg t.i.d. PRN for systolic blood pressure less than 100. nitroglycerin 0.4 mg subL, as directed for chest pain. s/p Lexiscan abnormal: Plan for PCI this afternoon Left heart catheterization performed 03/01/2025 abnormal As per cardiology consult cardiovascular surgeon for possible CABG Possible CABG within 5 to 7 days from last dose of Effient. Last dose of Effient 10 mg p.o. was given a on 03/01/2025 at 12:16 p.m. A.m. labs Replace electrolytes as needed as per protocol to keep potassium above 4.0 magnesium 2.0. ac/hs monitoring with SSRI coverage PT services: OOB to chair Supportive measures: DVT ppx, GI ppx all questions answered ATTESTATION BY PHYSICIAN I have seen and examined the patient. I reviewed the documentation, medical decision making, and treatment plan as noted by the mid-level provider above. I agree with the findings and plan of care. MAIKEL ODONNELL MD, [employer] Mar 04, 2025 15:38
[2025-03-05] VITALS (8 sets, daily range): BP systolic 105–124; BP diastolic 57–73; PULSE 46–60; RESP 17–19; TEMP 97.5–98.6; O2SAT 99–100
[2025-03-05 04:00] LABS: IMMATURE GRANULOCYTE ABSOLUTE 0.02 K/uL (0-1); NUCLEATED RED BLOOD CELLS 0.0 % (0.0-0.19); PLATELET COUNT (AUTO) 245 K/uL (130-400); RED BLOOD CELL COUNT(AUTO) 3.65 MIL/uL (4.00-5.50); RED CELL DISTRIBUTION WIDTH 13.2 % (11.0-15.5); WHITE BLOOD COUNT (AUTO) 7.3 K/uL (4.8-10.8)
[2025-03-05 04:09] LABS: ASPARTATE AMINOTRANSFERASE 17.0 U/L (10-37); CREATININE 0.6 mg/dL (0.5-1.0); GLOMERULAR FILTR. RATE CALC 102.0 mL/min (>90); GLUCOSE,RANDOM 111.0 mg/dL (70-105); SODIUM SERUM 139.0 mmol/L (136-145); TOTAL PROTEIN, SERUM 6.6 g/dL (6.0-8.3); UREA NITROGEN, BLOOD 17.0 mg/dL (7-18)
--- NOTE | 2025-03-05 10:47 | EKG ---
[facility] Test Date: 2025-02-26 Test Time: 02:41:55 Pat Name: SHAHZAD PAGE Department: [facility] Room: 429 1 Gender: F Manager Endoscopy: isa herrera : 1965 Requested By: CLAUDIA LUBIN Order Number: [id number] Reading MD: Shy Sotelo Measurements Intervals [place] Rate: 66 P: 49 NC: 158 QRS: 24 QRSD: 86 T: 124 QT: 424 QTc: 444 Interpretive Statements Normal sinus rhythm ST & T wave abnormality, consider lateral ischemia Compared to ECG 02/25/2025 03:19:27 Prolonged QT interval no longer present ST (T wave) deviation still present Possible ischemia still present Electronically Signed On 03-05-2025 13:36:16 CDT by Shy Sotelo Please click the below link to view image of tracing.
--- NOTE | 2025-03-05 11:18 | PN ---
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 Onset started this morning at 2:00 a.m. patient was awaken with chest pain. Reports she has been having chest pain for a week. Location midsternal does not radiate,location midsternal stated the pain on arrival was 10/10 on pain scale. aggravated none: alleviating factors: none. Patient denies palpitation, dizziness, shortness for breath. 12 lead EKG on arrival showed heart rate [address] depression in the lateral Leads. As per ED physician changes in V5 and V6 were not seen in December 2024. Presence of LVH noted anterior STT wave changes were also. ER initiated heparin drip. Was given Full dose Aspirin and Morphine 2 mg IV x1. Troponin 1st set was negative. 02/25/25 patient was seen earlier patient reports she had chest pain overnight 3:00 a.m. patient was given nitroglycerin: continue on Heparin drip; Echo pending no chest pain at this time. she is fully alert oriented x3. 02/26/25 2D echocardiogram revealed a hypokinetic anteroseptal and anterolateral wall. LVEF 40-45%, the patient denies any cardiac symptoms or chest pain. Dr Osorio recommendations: lexiscan in am medical management for now ASA 81 mg daily , Prasugrel 10 mg daily ,Atorvastatin 40 mg daily, Imdur 30 mg daily changed Toprol XL to 25 mg daily patient is fully awake alert oriented x3. out of bed to chair with meals. Denied chest pain palpitation dyspnea. 02/27/25 patient is seen and examined patient underwent Lexiscan pending results. We will continue to monitor patient closely. She is asleep and waking per verbal stimuli primary nurse reports she was having GI problems post Lexiscan. 02/28/25 s/p Lexiscan Reversible large defect in the anterior, septal lucas. TID 1.19. LVEF 39%. Dr Osorio scheduled the patient for Left Heart cath tomorrow. The patient denies chest pain palpitation dyspnea. 03/01/25 patient was evaluated this continues without chest pain or palpitations patient had a Lexiscan stress test is PCI this after the. Patient NPO after breakfast. 03/02 patient was seen by nurse practitioner and physician during rounding in room 429. Patient is s/p left heart catheterization 03/01/[address] Jefry osorio and at this moment he is recommending cardiovascular surgeon for possible CABG evaluation. Once patient will be medically stable we will consult [facility] for evaluation. Continue one-to-one sitter for now. Continue to monitor patient in the meantime. A.m. labs 03/03 patient was seen by nurse practitioner physician during rounding. Patient was seen by cardiovascular surgeon and is pending CABG as per note at the end of this week. As per RN patient's blood pressure has been on lower side. We will order midodrine 10 mg p.r.n. t.i.d. for systolic less than 100. As per c ardiologist Dr. Jefry osorio who was rounding okay with the above-stated medicine. We will continue to monitor patient in the meantime. A.m. labs. 03/04 patient was seen by nurse practitioner and physician during rounding. Patient was evaluated by the cardiovascular surgeon and he is came to perform CABG once the patient will be off Effient for 5 to 7 days. Last dose that was administered to the patient of Effient 10 mg was given on 03/01/2025 at 12:16 p.m. we will continue to monitor patient in the meantime. A.m. labs 03/05 patient was seen by nurse practitioner and physician during rounding in room 429. Patient is pending CABG once 5 to 7 days of Effient on hold we will be completed. WBC 7.3. Electrolyte replaced per protocol. Patient denies any shortness of breath, chest pain, nausea, vomiting or any other discomfort at this moment. We will continue to monitor patient in the meantime. A.m. labs REVIEW OF SYSTEMS a 14 point ROS obtained all relevant positive documented otherwise ROS negative PHYSICAL EXAM GENERAL APPEARANCE: The patient is awake, alert, and oriented, in no acute cardiopulmonary distress. NEUROLOGICAL: Cranial nerves II-XII grossly intact. Motor is 5/5 in bilateral upper and lower extremities proximal to distal. No sensory deficits. HEENT: Face is symmetric. Pupils are equal and reactive. Extraocular movements are intact. NECK: Supple. No JVD. No thyromegaly. No submental, submandibular, pre-/postauricular, occipital or supraclavicular lymphadenopathy. CHEST: Normal chest expansion. No Telemetry. LUNGS: Absence of any rales, rhonchi or any wheezing. CARDIOVASCULAR: Regular. S1 and S2 normal. No appreciable rubs, murmurs or gallops. ABDOMEN: Soft, nontender, and nondistended. There is no rebound, voluntary guarding, or rigidity. : Deferred. No Whitfield. EXTREMITIES: Non-edematous and not cyanotic. No clubbing. Good capillary refill. SKIN: No skin breakdown. Vital Signs (last 8hr) Date Time Temp Pulse Resp B/P (MAP) Pulse Ox O2 Delivery O2 Flow Rate FiO2 03/05/25 08:30 99 Room Air* 0 21 03/05/25 08:00 98.2 50 19 115/59 99 Room Air 03/05/25 04:00 98.2 46 18 121/59 99 Room Air LABS: Laboratory: Test 03/05/25 11:02 03/05/25 03:20 Range/Units Whole Blood Glucose 127 H 70-110 MG/DL White Blood Count 7.3 4.8-10.8 K/uL Red Blood Count 3.65 L 4.00-5.50 MIL/uL Hemoglobin 11.0 L 12.0-16.0 g/dL Hematocrit 33.5 L 36-48 % Mean Corpuscular Volume 91.8 79-99 fL Mean Corpuscular Hemoglobin 30.1 27.0-33.0 pg Mean Corpuscular Hemoglobin Concent 32.8 32.0-36.0 g/dL Red Cell Distribution Width 13.2 11.0-15.5 % Platelet Count 245 130-400 K/uL Mean Platelet Volume 11.4 H 7.5-10.5 fL Immature Granulocyte % (Auto) 0.3 0-1 % Neutrophils (%) (Auto) 36.5 L 40.0-77.0 % Lymphocytes (%) (Auto) 53.4 H 21.0-51.0 % Monocytes (%) (Auto) 7.1 3.0-13.0 % Eosinophils (%) (Auto) 2.3 0.0-8.0 % Basophils (%) (Auto) 0.4 0.0-5.0 % Neutrophils # (Auto) 2.7 1.8-7.7 K/uL Lymphocytes # (Auto) 3.9 1.0-4.8 K/uL Monocytes # (Auto) 0.5 0.1-1.0 K/uL Eosinophils # (Auto) 0.17 0.00-0.70 K/uL Basophils # (Auto) 0.03 0.00-0.20 K/uL Absolute Immature Granulocyte (auto 0.02 0-1 K/uL Nucleated Red Blood Cells 0.0 0.0-0.19 % Sodium Level 139 136-145 mmol/L Potassium Level 3.7 3.5-5.1 mmol/L Chloride Level 102 101-111 mmol/L Carbon Dioxide Level 33 H 21-32 mmol/L Blood Urea Nitrogen 17 7-18 mg/dL Creatinine 0.6 0.5-1.0 mg/dL Glomerular Filtration Rate Calc 102 >90 mL/min Random Glucose 111 H 70-105 mg/dL Total Calcium 9.7 8.5-10.1 mg/dL Magnesium Level 2.00 1.80-2.40 mg/dL Total Bilirubin 0.4 # 0.2-1.0 mg/dL Aspartate Amino Transf (AST/SGOT) 17 10-37 U/L Alanine Aminotransferase (ALT/SGPT) 27 12-78 U/L Alkaline Phosphatase 62 50-136 U/L Total Protein 6.6 6.0-8.3 g/dL Albumin 3.4 L 3.5-5.0 g/dL Current Medications Medications (Trade) Dose Ordered Sig/Toby Route PRN Reason Start Time Stop Time Status Last Admin Dose Admin Acetaminophen (TYLenol 325MG TAB) 650 mg Q4H PRN PO TEMPERATURE GREATER THAN 101.5 02/24/25 07:00 03/26/25 06:59 03/01/25 19:06 650 MG Acetaminophen (TYLenol 325MG TAB) 650 mg Q4H PRN PO MILD PAIN (1-3) 03/02/25 02:30 04/01/25 02:29 03/04/25 10:39 650 MG Aspirin (Aspirin 81mg Chew Tab) 81 mg DAILY PO 02/25/25 09:00 03/01/25 12:33 DC 02/28/25 09:18 81 MG Aspirin (Aspirin 81mg Chew Tab) 81 mg DAILY PO 03/02/25 09:00 04/01/25 08:59 03/05/25 08:10 81 MG Aspirin (Aspirin 81mg Ec Tab) 81 mg DAILY PO 02/24/25 09:00 02/24/25 08:52 DC Atorvastatin Calcium (LIPItor 20MG) 20 mg HS PO 02/24/25 21:00 02/24/25 08:52 DC Atorvastatin Calcium (LIPItor 40MG) 40 mg HS PO 02/24/25 21:00 03/26/25 20:59 03/04/25 21:34 40 MG Citalopram Hydrobromide (CeleXA 20MG TAB) 10 mg DAILY PO 02/25/25 09:00 03/27/25 08:59 03/05/25 08:10 10 MG Dextrose (D50w) 50 ml AD PRN IV HYPOGLYCEMIA PROTOCOL 03/01/25 12:30 03/31/25 12:29 Docusate Sodium (COLace 100MG CAP) 100 mg BID PO 03/03/25 21:00 03/03/25 16:22 DC Famotidine (Pepcid 20mg Tab) 20 mg BID PO 02/24/25 09:00 03/26/25 08:59 03/05/25 08:10 20 MG Glucagon (Glucagon 1mg Kit) 1 mg AD PRN IM HYPOGLYCEMIA PROTOCOL 03/01/25 12:30 03/31/25 12:29 Heparin Sodium/ Dextrose 250 ml @ 0 mls/hr PROTOCOL PRN IV PROTOCOL 02/24/25 06:00 02/25/25 05:59 DC 02/25/25 01:09 7.36 MLS/HR Insulin Human Regular (humuLIN R 100 UNIT/ML 3ML) INSULIN SLIDING SCAL... ACHS SQ 02/24/25 11:30 03/26/25 11:29 02/25/25 20:07 4 UNIT Isosorbide Mononitrate (Imdur 30mg Sr) 30 mg DAILY PO 02/24/25 09:00 03/26/25 08:59 03/05/25 08:11 30 MG Ketorolac Tromethamine (ketOROlac troMETHamine) 15 mg Q6H PRN PO MODERATE PAIN (4-6) 03/03/25 18:00 03/03/25 16:22 DC Magnesium Sulfate 50 ml @ 0 mls/hr PROTOCOL PRN IV low mag level 02/24/25 09:30 03/26/25 09:29 Metoprolol Succinate (TopROL XL) 12.5 mg DAILY PO 02/24/25 09:00 03/26/25 08:59 03/03/25 08:36 12.5 MG Midodrine (PROAMatine 5 MG TABLET) 10 mg TID PO 03/03/25 14:00 04/02/25 13:59 03/04/25 08:30 10 MG Nitroglycerin (Nitrostat) 0.4 mg Q5M PRN SL CHEST PAIN 02/24/25 06:00 02/25/25 03:17 0.4 MG Potassium Chloride 100 ml @ 50 mls/hr AD PRN IV POTASSIUM PROTOCOL 02/24/25 09:30 03/26/25 09:29 Potassium Chloride 100 ml @ 100 mls/hr AD PRN IV POTASSIUM PROTOCOL 02/26/25 11:30 02/27/25 09:49 DC Potassium Chloride (K-Dur/Klor-Con 20meq) 20 meq AD PRN PO POTASSIUM PROTOCOL 02/26/25 11:30 03/28/25 11:29 03/02/25 06:55 20 MEQ Potassium Chloride (KCl 10% Elixir 20meq/15ml) 20 meq AD PRN PO POTASSIUM PROTOCOL 02/26/25 11:30 03/28/25 11:29 Prasugrel (Effient 10mg) 10 mg DAILY PO 02/25/25 09:00 03/01/25 12:54 DC 02/28/25 09:18 10 MG Sodium Chloride 1,000 ml @ 150 mls/hr Q6H40M IV 03/01/25 12:30 03/01/25 16:29 DC 03/01/25 19:04 150 MLS/HR DIAGNOSTICS / RADIOLOGY: [ ] Assessment: unstable angina Rule n ACS s/p Lexiscan Reversible large defect in the anterior, septal lucas. TID 1.19. LVEF 39%. hypercoagulable state on Prasugrel POA functional decline: s/p BKA POA moderated protein calorie malnutrition with muscle atrophy ; BMI 19 POA History of Myocardial infarction 2023 Uncontrolled hypertension POA Hyperlipidemia Uncontrolled diabetes mellitus type 2 with hyperglycemia POA PLAN: Admit: Patient will be on telemetry condition: guarded Status: full code IVF:heplock prasugrel 10 mg po daily on hold for now , will continue Isosorbide ER 30 mg po daily, Atorvastatin 40 mg po HS. Patient will be started on midodrine 10 mg t.i.d. PRN for systolic blood pressure less than 100. nitroglycerin 0.4 mg subL, as directed for chest pain. s/p Lexiscan abnormal: Plan for PCI this afternoon Left heart catheterization performed 03/01/2025 abnormal As per cardiology consult cardiovascular surgeon for possible CABG Possible CABG within 5 to 7 days from last dose of Effient. Last dose of Effient 10 mg p.o. was given a on 03/01/2025 at 12:16 p.m. A.m. labs Replace electrolytes as needed as per protocol to keep potassium above 4.0 magnesium 2.0. ac/hs monitoring with SSRI coverage Supportive measures: DVT ppx, GI ppx all questions answered ATTESTATION BY PHYSICIAN I have seen and examined the patient. I reviewed the documentation, medical decision making, and treatment plan as noted by the mid-level provider above. I agree with the findings and plan of care. PATEL Estevez MD [employer] Mar 05, 2025 11:18
[2025-03-05] MEDS: PoTASSium chloRIDE 20MEQ ER 20 MEQ ERTAB PO ONE (11:35)
--- NOTE | 2025-03-05 14:15 | PN ---
[facility] CARDIOLOGY PROGRESS NOTE Date Patient Seen: Mar 05, 2025 Time of Visit: 14:14 Interval History: No overnight events. Currently denies any cardiac symptoms or anginal equivalents. Pending CABG Physical Examination: GENERAL: [No acute distress.] HEAD: [Normal with no signs of head trauma.] EYES: [PERRLA, EOMI, conjunctiva and sclera normal.] ENT: [Hearing grossly intact, normal oropharynx.] NECK: [Supple without JVD. There is no tenderness, lymphadenopathy, or masses. No thyromegaly. Normal carotid upstrokes without bruits.] LUNGS: [Clear breath sounds bilaterally. No wheezes, or rhonchi.] HEART: [Normal rate and rhythm. Normal S1 and S2 without murmurs, gallop or rub.] VASC: [Peripheral pulses +2 bilaterally.] ABD: [Bowel sounds normal, soft, nontender, no masses, no organomegaly. No audible bruits.] : [Not examined] LYMPH: [No lymphadenopathy noted.] EXT: [No clubbing, cyanosis or edema. Right BKA] SKIN: [No rashes or lesions noted.] NEURO: [Awake, alert, and oriented x3. No focal sensory or strength deficits noted.] Laboratory: [ ] Hematology Labs: Test 03/05/25 03:20 Range/Units White Blood Count 7.3 4.8-10.8 K/uL Red Blood Count 3.65 L 4.00-5.50 MIL/uL Hemoglobin 11.0 L 12.0-16.0 g/dL Hematocrit 33.5 L 36-48 % Mean Corpuscular Volume 91.8 79-99 fL Mean Corpuscular Hemoglobin 30.1 27.0-33.0 pg Mean Corpuscular Hemoglobin Concent 32.8 32.0-36.0 g/dL Red Cell Distribution Width 13.2 11.0-15.5 % Platelet Count 245 130-400 K/uL Mean Platelet Volume 11.4 H 7.5-10.5 fL Immature Granulocyte % (Auto) 0.3 0-1 % Neutrophils (%) (Auto) 36.5 L 40.0-77.0 % Lymphocytes (%) (Auto) 53.4 H 21.0-51.0 % Monocytes (%) (Auto) 7.1 3.0-13.0 % Eosinophils (%) (Auto) 2.3 0.0-8.0 % Basophils (%) (Auto) 0.4 0.0-5.0 % Neutrophils # (Auto) 2.7 1.8-7.7 K/uL Lymphocytes # (Auto) 3.9 1.0-4.8 K/uL Monocytes # (Auto) 0.5 0.1-1.0 K/uL Eosinophils # (Auto) 0.17 0.00-0.70 K/uL Basophils # (Auto) 0.03 0.00-0.20 K/uL Absolute Immature Granulocyte (auto 0.02 0-1 K/uL Nucleated Red Blood Cells 0.0 0.0-0.19 % Chemistry Labs: Test 03/05/25 11:02 03/05/25 03:20 Range/Units Whole Blood Glucose 127 H 70-110 MG/DL Sodium Level 139 136-145 mmol/L Potassium Level 3.7 3.5-5.1 mmol/L Chloride Level 102 101-111 mmol/L Carbon Dioxide Level 33 H 21-32 mmol/L Blood Urea Nitrogen 17 7-18 mg/dL Creatinine 0.6 0.5-1.0 mg/dL Glomerular Filtration Rate Calc 102 >90 mL/min Random Glucose 111 H 70-105 mg/dL Total Calcium 9.7 8.5-10.1 mg/dL Magnesium Level 2.00 1.80-2.40 mg/dL Total Bilirubin 0.4 # 0.2-1.0 mg/dL Aspartate Amino Transf (AST/SGOT) 17 10-37 U/L Alanine Aminotransferase (ALT/SGPT) 27 12-78 U/L Alkaline Phosphatase 62 50-136 U/L Total Protein 6.6 6.0-8.3 g/dL Albumin 3.4 L 3.5-5.0 g/dL Diagnostics / Radiology: [Copy/Paste Echos/Imaging Report here] Impression and Plan: 1. Unstable Angina 2. Remote anterior wall myocardial infarction July 2024 complicated by cardiogenic shock requiring Impella support for PCI with subsequent ischemic leg requiring [id number] amputation 3. CAD status post stenting of the proximal LAD proximal circumflex and mid cir cumflex artery as above with documented progression of disease December 2024 managed medically because of concern the patient would not be compliant with dual antiplatelet therapy 4. Diabetes mellitus type 2 5. Dyslipidemia 6. Hypertension ] #Angina The patient presented with chest pain ACS has been ruled out , troponin has been negative Currently denies any chest pain , palpitations, dyspnea or any other anginal equivalents. ASA 81 mg daily , Prasugrel 10 mg daily ,Atorvastatin 40 mg daily, Imdur 30 mg daily, and Toprol XL to 25 mg daily Given ACS was ruled out we will stop IV heparin 2D echocardiogram revealed a hypokinetic anteroseptal and anterolateral wall. LVEF 40-45% (unchanged from prior July 2024) Coronary angiogram on 03/01/2025 revealed severe two-vessel CAD CV surgery was consulted, and is awaiting CABG . Aggressive risk factor modification. Hold/defer the use of any P2Y12 inhibitors while we await CV surgery recommendations Continue aspirin 81 mg daily and high-intensity Lipitor and antianginals including beta-omid/ Thank you for this consult , cardiology will continue to follow along ,post operatively Jefry Carrasco MD ATTESTATION BY PHYSICIAN I have seen and examined the patient, reviewed the above documentation, participated in medical decision making, made necessary modifications, and agree with the treatment plan as documented by my mid-level provider above. MD JESSY Catalan JAMES R MD Mar 05, 2025 14:15
[2025-03-06] VITALS (7 sets, daily range): BP systolic 103–126; BP diastolic 57–76; PULSE 46–73; RESP 16–20; TEMP 97.7–98.7; O2SAT 97–99
--- NOTE | 2025-03-06 03:43 | NUR ---
nurse note patient alert and oriented times 3. plan of care discussed with her and she verbalized understanding. patient is ambulatory with a walker and assistance. she calls for help throughout the night. She has no pain tonight. she slept about 6 hours. call light within reach, bed alarm on, 2 side rails up. will continue to monitor patient.
[2025-03-06 05:11] LABS: ASPARTATE AMINOTRANSFERASE 16.0 U/L (10-37); CREATININE 0.5 mg/dL (0.5-1.0); GLOMERULAR FILTR. RATE CALC 107.0 mL/min (>90); GLUCOSE,RANDOM 119.0 mg/dL (70-105); IMMATURE GRANULOCYTE ABSOLUTE 0.01 K/uL (0-1); NUCLEATED RED BLOOD CELLS 0.0 % (0.0-0.19); PLATELET COUNT (AUTO) 247 K/uL (130-400); RED BLOOD CELL COUNT(AUTO) 3.85 MIL/uL (4.00-5.50); RED CELL DISTRIBUTION WIDTH 13.3 % (11.0-15.5); SODIUM SERUM 138.0 mmol/L (136-145); TOTAL PROTEIN, SERUM 6.7 g/dL (6.0-8.3); UREA NITROGEN, BLOOD 1.0 mg/dL (7-18); WHITE BLOOD COUNT (AUTO) 6.0 K/uL (4.8-10.8)
--- NOTE | 2025-03-06 09:00 | NUR ---
PER TELE HAD EPISODES ON AND OFF OF ST ELEVATION ON TELE STRIP, ALSO PT HAD X 1 OF CHEST PRESSURE WHILE WALKING TO BATHROOM AT THE TIME . PER PRN ORDER GAVE NITRO SUBLINGUAL X 1. PER PATIENT NO FURTHER CHEST PRESSURE . INFORMED PRIMARY TEAM DR FAB MD ,NEW ORDER FOR TROPONIN AND EKG , COMPLETED.. PER PRIMARY WILL WAIT ON CARDIOLOGY INPUT . TROPONIN 9 . PATIENT DENIES ANY FURTHER CHEST PRESSURE
--- NOTE | 2025-03-06 11:45 | PN ---
Cardiology Progress Note Date of Service: 03/06/2025 Attending Divine Healer: Dr. Malik Villegas Primary Divine Healer: Dr. 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 on 02/25/2025) -h/o of ACS-STEMI s/p PCI with VIANEY placement (BSS 3.0x20 mm) in the proximal LAD, VIANEY placement (BSS 3.5x16 mm) in the proximal LCx, VIANEY placement (BSS 3.0x12 mm) in the mid LCx, and VIANEY placement (BSS 2.75x24 mm) in the distal LCx done on 07/17/2024 -h/o Intraprocedural VT in July 2024 -h/o cardiogenic shock requiring Impella placement in July 2024 -Right lower extremity ischemia secondary to Impella placement resulting in RLE limb ischemia s/p right BKA -Ischemic cardiomyopathy -HLP -DM2 -Hypochromic anemia -Medication noncompliance Subjective: This is a 59y/o female who was seen and evaluated at the bedside today. The patient complains of intermittent chest pain which improves with SL nitro. She denies any palpitations or shortness of breath. She has been evaluated by CT surgery and is pending CABG early next week. Vitals/Labs Vital Signs Date Time Temp Pulse Resp B/P (MAP) Pulse Ox O2 Delivery O2 Flow Rate FiO2 03/06/25 08:00 97 Room Air* 0 21 03/06/25 08:00 98.2 58 20 117/67 General: Alert and oriented. NAD. Chronically ill appearing. HEENT: NC/AT. Oral mucosa is moist. Poor dentition. Neck: No masses or carotid bruits. Lungs: NRD. SCM. Bilateral air entry. CTA. No obvious wheezing, rales or rhonchi. Cardio: Regular rate. Normal S1 and S2. +S4. No obvious murmur, gallops, or rubs noted. Abdomen: Soft. NT. ND. Normal active bowel sounds x 4 quadrants. Extremities: Right BKA noted. +2 pulses noted in the left lower extremity. Neuro: CN II-XII were grossly intact. No obvious focal deficits. 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 2V+branch CAD (LAD, LCx, OM1) identified on C done on 03/01/2025 -The patient has been evaluated by CT surgery and is scheduled to undergo CABG early next week. -Prasugrel remains on hold (last dose 02/28/2025) in preparation for CABG. -We will increase isosorbide mononitrate ER to 60 mg daily and she will continue on aspirin 81 mg daily and atorvastatin 40 mg QHS. -BB therapy has been held due to episodes of sinus bradycardia. 2. 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 -Please record strict I/O's, daily weights, and restrict fluids to less than 2.0L/day This case was discussed with my Supervising Physician, Dr. Malik Villegas, and the above mentioned plan was formulated and agreed upon. -Progress Note written by Mandeep Prince, MSN, [employer], AGACNP-BC MANDEEP PRINCE NP Mar 06, 2025 11:45
--- NOTE | 2025-03-06 11:49 | EKG ---
[facility] Test Date: 2025-03-06 Test Time: 11:45:51 Pat Name: SHAHZAD PAGE Department: [facility] Room: 429 1 Gender: F Duty Manager: [id number] : 1965 Requested By: NORA DOVE Order Number: [id number] Reading MD: Shy Sotelo Measurements Intervals [place] Rate: 58 P: 62 [place]: 148 QRS: 56 QRSD: 84 T: 128 QT: 406 QTc: 398 Interpretive Statements Sinus bradycardia Septal infarct , age undetermined ST & T wave abnormality, consider lateral ischemia Compared to ECG 03/01/2025 16:22:06 Myocardial infarct finding now present Sinus rhythm no longer present ST (T wave) deviation still present Possible ischemia still present Electronically Signed On 03-06-2025 13:23:42 CDT by Shy Sotelo Please click the below link to view image of tracing.
--- NOTE | 2025-03-06 14:10 | PN ---
[facility] PROGRESS NOTE Date of Service: Mar 06, 2025 Time of Service: 13:58 SUBJECTIVE: [ ] admission date: 02/24/25 PCP: Agnieszka Shi DO chief complaint: Chest pain Primary corporate associate attorney: Dr Jefry Osorio This is a 59-year-old female presents in ED with chief complaints of chest pain. Onset started this morning at 2:00 a.m. patient was awaken with chest pain. Reports she has been having chest pain for a week. Location midsternal does not radiate,location midsternal stated the pain on arrival was 10/10 on pain scale. aggravated none: alleviating factors: none. Patient denies palpitation, dizziness, shortness for breath. 12 lead EKG on arrival showed heart rate [address] depression in the lateral Leads. As per ED physician changes in V5 and V6 were not seen in December 2024. Presence of LVH noted anterior STT wave changes were also. ER initiated heparin drip. Was given Full dose Aspirin and Morphine 2 mg IV x1. Troponin 1st set was negative. 02/25/25 patient was seen earlier patient reports she had chest pain overnight 3:00 a.m. patient was given nitroglycerin: continue on Heparin drip; Echo pending no chest pain at this time. she is fully alert oriented x3. 02/26/25 2D echocardiogram revealed a hypokinetic anteroseptal and anterolateral wall. LVEF 40-45%, the patient denies any cardiac symptoms or chest pain. Dr Osorio recommendations: lexiscan in am medical management for now ASA 81 mg daily , Prasugrel 10 mg daily ,Atorvastatin 40 mg daily, Imdur 30 mg daily changed Toprol XL to 25 mg daily patient is fully awake alert oriented x3. out of bed to chair with meals. Denied chest pain palpitation dyspnea. 02/27/25 patient is seen and examined patient underwent Lexiscan pending results. We will continue to monitor patient closely. She is asleep and waking per verbal stimuli primary nurse reports she was having GI problems post Lexiscan. 02/28/25 s/p Lexiscan Reversible large defect in the anterior, septal lucas. TID 1.19. LVEF 39%. Dr Osorio scheduled the patient for Left Heart cath tomorrow. The patient denies chest pain palpitation dyspnea. 03/01/25 patient was evaluated this continues without chest pain or palpitations patient had a Lexiscan stress test is PCI this after the. Patient NPO after breakfast. 03/02 patient was seen by nurse practitioner and physician during rounding in room 429. Patient is s/p left heart catheterization 03/01/[address] Jefry osorio and at this moment he is recommending cardiovascular surgeon for possible CABG evaluation. Once patient will be medically stable we will consult [facility] for evaluation. Continue one-to-one sitter for now. Continue to monitor patient in the meantime. A.m. labs 03/03 patient was seen by nurse practitioner physician during rounding. Patient was seen by cardiovascular surgeon and is pending CABG as per note at the end of this week. As per RN patient's blood pressure has been on lower side. We will order midodrine 10 mg p.r.n. t.i.d. for systolic less than 100. As per corporate associate attorney Dr. Jefry osorio who was rounding okay with the above-stated medicine. We will continue to monitor patient in the meantime. A.m. labs. 03/04 patient was seen by nurse practitioner and physician during rounding. Patient was evaluated by the cardiovascular surgeon and he is came to perform CABG once the patient will be off Effient for 5 to 7 days. Last dose that was administered to the patient of Effient 10 mg was given on 03/01/2025 at 12:16 p.m. we will continue to monitor patient in the meantime. A.m. labs 03/05 patient was seen by nurse practitioner and physician during rounding in room 429. Patient is pending CABG once 5 to 7 days of Effient on hold we will be completed. WBC 7.3. Electrolyte replaced per protocol. Patient denies any shortness of breath, chest pain, nausea, vomiting or any other discomfort at this moment. We will continue to monitor patient in the meantime. A.m. labs 03/06/2025 - patient is seen in room 429, patient had an episode of intermittent chest pain on exertion when she went to the washroom. Chest pain relieved with sublingual nitro, troponin and EKG were ordered which were normal. Ordered ore digger cortisol, we will follow up with the lab. Patient to be scheduled for CABG. Heart rate currently on the lower side around 50s - 60s. Patient is asymptomatic otherwise, we will follow the patient closely. REVIEW OF SYSTEMS a 14 point ROS obtained all relevant positive documented otherwise ROS negative PHYSICAL EXAM GENERAL APPEARANCE: The patient is awake, alert, and oriented, in no acute cardiopulmonary distress. NEUROLOGICAL: Cranial nerves II-XII grossly intact. Motor is 5/5 in bilateral upper and lower extremities proximal to distal. No sensory deficits. HEENT: Face is symmetric. Pupils are equal and reactive. Extraocular movements are intact. NECK: Supple. No JVD. No thyromegaly. No submental, submandibular, pre- /postauricular, occipital or supraclavicular lymphadenopathy. CHEST: Normal chest expansion. No Telemetry. LUNGS: Absence of any rales, rhonchi or any wheezing. CARDIOVASCULAR: Regular. S1 and S2 normal. No appreciable rubs, murmurs or gallops. ABDOMEN: Soft, nontender, and nondistended. There is no rebound, voluntary guarding, or rigidity. : Deferred. No [place]. EXTREMITIES: Non-edematous and not cyanotic. No clubbing. Good capillary refill. SKIN: No skin breakdown. Vital Signs (last 8hr) Date Time Temp Pulse Resp B/P (MAP) Pulse Ox O2 Delivery O2 Flow Rate FiO2 03/06/25 11:56 97.7 60 19 114/61 98 Room Air 03/06/25 08:00 97 Room Air* 0 21 03/06/25 08:00 98.2 58 20 117/67 97 Room Air LABS: Laboratory: Test 03/06/25 10:56 03/06/25 10:36 03/06/25 04:39 Range/Units Whole Blood Glucose 111 H 70-110 MG/DL Troponin I High Sensitivity 9 4-50 ng/L White Blood Count 6.0 4.8-10.8 K/uL Red Blood Count 3.85 L 4.00-5.50 MIL/uL Hemoglobin 11.6 L 12.0-16.0 g/dL Hematocrit 36.3 36-48 % Mean Corpuscular Volume 94.3 79-99 fL Mean Corpuscular Hemoglobin 30.1 27.0-33.0 pg Mean Corpuscular Hemoglobin Concent 32.0 32.0-36.0 g/dL Red Cell Distribution Width 13.3 11.0-15.5 % Platelet Count 247 130-400 K/uL Mean Platelet Volume 11.2 H 7.5-10.5 fL Immature Granulocyte % (Auto) 0.2 0-1 % Neutrophils (%) (Auto) 37.3 L 40.0-77.0 % Lymphocytes (%) (Auto) 52.0 H 21.0-51.0 % Monocytes (%) (Auto) 7.8 3.0-13.0 % Eosinophils (%) (Auto) 2.2 0.0-8.0 % Basophils (%) (Auto) 0.5 0.0-5.0 % Neutrophils # (Auto) 2.2 1.8-7.7 K/uL Lymphocytes # (Auto) 3.1 1.0-4.8 K/uL Monocytes # (Auto) 0.5 0.1-1.0 K/uL Eosinophils # (Auto) 0.13 0.00-0.70 K/uL Basophils # (Auto) 0.03 0.00-0.20 K/uL Absolute Immature Granulocyte (auto 0.01 0-1 K/uL Nucleated Red Blood Cells 0.0 0.0-0.19 % Sodium Level 138 136-145 mmol/L Potassium Level 4.5 3.5-5.1 mmol/L Chloride Level 103 101-111 mmol/L Carbon Dioxide Level 32 21-32 mmol/L Blood Urea Nitrogen 1 L 7-18 mg/dL Creatinine 0.5 0.5-1.0 mg/dL Glomerular Filtration Rate Calc 107 >90 mL/min Random Glucose 119 H 70-105 mg/dL Total Calcium 9.6 8.5-10.1 mg/dL Magnesium Level 2.10 1.80-2.40 mg/dL Total Bilirubin 0.3 0.2-1.0 mg/dL Aspartate Amino Transf (AST/SGOT) 16 10-37 U/L Alanine Aminotransferase (ALT/SGPT) 26 12-78 U/L Alkaline Phosphatase 65 50-136 U/L Total Protein 6.7 6.0-8.3 g/dL Albumin 3.4 L 3.5-5.0 g/dL Current Medications Medications (Trade) Dose Ordered Sig/Toby Route PRN Reason Start Time Stop Time Status Last Admin Dose Admin Acetaminophen (TYLenol 325MG TAB) 650 mg Q4H PRN PO TEMPERATURE GREATER THAN 101.5 02/24/25 07:00 03/26/25 06:59 03/01/25 19:06 650 MG Acetaminophen (TYLenol 325MG TAB) 650 mg Q4H PRN PO MILD PAIN (1-3) 03/02/25 02:30 04/01/25 02:29 03/04/25 10:39 650 MG Aspirin (Aspirin 81mg Chew Tab) 81 mg DAILY PO 02/25/25 09:00 03/01/25 12:33 DC 02/28/25 09:18 81 MG Aspirin (Aspirin 81mg Chew Tab) 81 mg DAILY PO 03/02/25 09:00 04/01/25 08:59 03/06/25 08:13 81 MG Aspirin (Aspirin 81mg Ec Tab) 81 mg DAILY PO 02/24/25 09:00 02/24/25 08:52 DC Atorvastatin Calcium (LIPItor 20MG) 20 mg HS PO 02/24/25 21:00 02/24/25 08:52 DC Atorvastatin Calcium (LIPItor 40MG) 40 mg HS PO 02/24/25 21:00 03/26/25 20:59 03/05/25 19:50 40 MG Citalopram Hydrobromide (CeleXA 20MG TAB) 10 mg DAILY PO 02/25/25 09:00 03/27/25 08:59 03/06/25 08:13 10 MG Dextrose (D50w) 50 ml AD PRN IV HYPOGLYCEMIA PROTOCOL 03/01/25 12:30 03/31/25 12:29 Docusate Sodium (COLace 100MG CAP) 100 mg BID PO 03/03/25 21:00 03/03/25 16:22 DC Famotidine (Pepcid 20mg Tab) 20 mg BID PO 02/24/25 09:00 03/26/25 08:59 03/06/25 08:14 20 MG Glucagon (Glucagon 1mg Kit) 1 mg AD PRN IM HYPOGLYCEMIA PROTOCOL 03/01/25 12:30 03/31/25 12:29 Heparin Sodium/ Dextrose 250 ml @ 0 mls/hr PROTOCOL PRN IV PROTOCOL 02/24/25 06:00 02/25/25 05:59 DC 02/25/25 01:09 7.36 MLS/HR Insulin Human Regular (humuLIN R 100 UNIT/ML 3ML) INSULIN SLIDING SCAL... ACHS SQ 02/24/25 11:30 03/26/25 11:29 02/25/25 20:07 4 UNIT Isosorbide Mononitrate (Imdur 30mg Sr) 30 mg DAILY PO 02/24/25 09:00 03/06/25 11:46 DC 03/06/25 08:13 30 MG Isosorbide Mononitrate (Imdur 30mg Sr) 60 mg DAILY PO 03/07/25 09:00 04/06/25 08:59 Ketorolac Tromethamine (ketOROlac troMETHamine) 15 mg Q6H PRN PO MODERATE PAIN (4-6) 03/03/25 18:00 03/03/25 16:22 DC Magnesium Sulfate 50 ml @ 0 mls/hr PROTOCOL PRN IV low mag level 02/24/25 09:30 03/26/25 09:29 Metoprolol Succinate (TopROL XL) 12.5 mg DAILY PO 02/24/25 09:00 03/26/25 08:59 03/03/25 08:36 12.5 MG Midodrine (PROAMatine 5 MG TABLET) 10 mg TID PO 03/03/25 14:00 04/02/25 13:59 03/05/25 19:50 10 MG Nitroglycerin (Nitrostat) 0.4 mg Q5M PRN SL CHEST PAIN 02/24/25 06:00 03/06/25 08:51 DC 03/06/25 08:50 0.4 MG Potassium Chloride 100 ml @ 50 mls/hr AD PRN IV POTASSIUM PROTOCOL 02/24/25 09:30 03/26/25 09:29 Potassium Chloride 100 ml @ 100 mls/hr AD PRN IV POTASSIUM PROTOCOL 02/26/25 11:30 02/27/25 09:49 DC Potassium Chloride (K-Dur/Klor-Con 20meq) 20 meq AD PRN PO POTASSIUM PROTOCOL 02/26/25 11:30 03/28/25 11:29 03/05/25 19:50 20 MEQ Potassium Chloride (KCl 10% Elixir 20meq/15ml) 20 meq AD PRN PO POTASSIUM PROTOCOL 02/26/25 11:30 03/28/25 11:29 Prasugrel (Effient 10mg) 10 mg DAILY PO 02/25/25 09:00 03/01/25 12:54 DC 02/28/25 09:18 10 MG Sodium Chloride 1,000 ml @ 150 mls/hr Q6H40M IV 03/01/25 12:30 03/01/25 16:29 DC 03/01/25 19:04 150 MLS/HR DIAGNOSTICS / RADIOLOGY: [ ] Assessment: unstable angina Rule n ACS s/p Lexiscan Reversible large defect in the anterior, septal lucas. TID 1.19. LVEF 39%. hypercoagulable state on Prasugrel POA functional decline: s/p BKA POA moderated protein calorie malnutrition with muscle atrophy ; BMI 19 POA History of Myocardial infarction 2023 Uncontrolled hypertension POA Hyperlipidemia Uncontrolled diabetes mellitus type 2 with hyperglycemia POA PLAN: Admit: Patient will be on telemetry condition: guarded Status: full code IVF:heplock prasugrel 10 mg po daily on hold for now , will continue Isosorbide ER 30 mg po daily, Atorvastatin 40 mg po HS. Patient will be started on midodrine 10 mg t.i.d. PRN for systolic blood pressure less than 100. nitroglycerin 0.4 mg subL, as directed for chest pain. s/p Lexiscan abnormal: Plan for PCI this afternoon Left heart catheterization performed 03/01/2025 abnormal As per cardiology consult cardiovascular surgeon for possible CABG Possible CABG within 5 to 7 days from last dose of Effient. Last dose of Effient 10 mg p.o. was given a on 03/01/2025 at 12:16 p.m. A.m. labs Replace electrolytes as needed as per protocol to keep potassium above 4.0 magnesium 2.0. ac/hs monitoring with SSRI coverage Follow up with morning cortisol levels Supportive measures: DVT ppx, GI ppx all questions answered ATTESTATION BY PHYSICIAN I have seen and examined the patient. I reviewed the documentation, medical decision making, and treatment plan as noted by the resident provider above. I agree with the findings and plan of care. Allen Fuentes MD, KEERTI K MD Mar 06, 2025 14:10
[2025-03-07] VITALS (8 sets, daily range): BP systolic 103–128; BP diastolic 53–75; PULSE 46–65; RESP 16–19; TEMP 97.6–98.3; O2SAT 98–99
--- NOTE | 2025-03-07 03:06 | NUR ---
nurse note patient alert and oriented times 3. plan of care discussed with her and she verbalized understanding. patient calls for assistance to the restroom with a walker. she has no pain tonight. she has slept about 6 hours tonight. call light within reach, bed alarm on, 2 side rails up. will continue to monitor patient.
[2025-03-07 04:43] LABS: IMMATURE GRANULOCYTE ABSOLUTE 0.02 K/uL (0-1); NUCLEATED RED BLOOD CELLS 0.0 % (0.0-0.19); PLATELET COUNT (AUTO) 242 K/uL (130-400); RED BLOOD CELL COUNT(AUTO) 3.70 MIL/uL (4.00-5.50); RED CELL DISTRIBUTION WIDTH 13.2 % (11.0-15.5); WHITE BLOOD COUNT (AUTO) 7.4 K/uL (4.8-10.8)
[2025-03-07 04:51] LABS: CREATININE 0.5 mg/dL (0.5-1.0); GLOMERULAR FILTR. RATE CALC 107.0 mL/min (>90); GLUCOSE,RANDOM 96.0 mg/dL (70-105); SODIUM SERUM 137.0 mmol/L (136-145); UREA NITROGEN, BLOOD 13.0 mg/dL (7-18)
[2025-03-07] MEDS: ISOSORBIDE MONO 30MG SR TAB PO SCH (08:47)
[2025-03-07] MEDS: PoTASSium chloRIDE 20MEQ ER 20 MEQ ERTAB PO ONE (11:58)
--- NOTE | 2025-03-07 13:10 | PN ---
[facility] PROGRESS NOTE Date of Service: Mar 07, 2025 Time of Service: 13:[address] Agustin SUBJECTIVE: [ ] admission date: 02/24/25 PCP: Agnieszka Shi DO chief complaint: Chest pain Primary footwear sales representative: Dr Jefry Osorio This is a 59-year-old female presents in ED with chief complaints of chest pain. Onset started this morning at 2:00 a.m. patient was awaken with c hest pain. Reports she has been having chest pain for a week. Location midsternal does not radiate,location midsternal stated the pain on arrival was 10/10 on pain scale. aggravated none: alleviating factors: none. Patient denies palpitation, dizziness, shortness for breath. 12 lead EKG on arrival showed heart rate [address] depression in the lateral Leads. As per ED physician changes in V5 and V6 were not seen in December 2024. Presence of LVH noted anterior STT wave changes were also. ER initiated heparin drip. Was given Full dose Aspirin and Morphine 2 mg IV x1. Troponin 1st set was negative. 02/25/25 patient was seen earlier patient reports she had chest pain overnight 3:00 a.m. patient was given nitroglycerin: continue on Heparin drip; Echo pending no chest pain at this time. she is fully alert oriented x3. 02/26/25 2D echocardiogram revealed a hypokinetic anteroseptal and anterolateral wall. LVEF 40-45%, the patient denies any cardiac symptoms or chest pain. Dr Osorio recommendations: lexiscan in am medical management for now ASA 81 mg daily , Prasugrel 10 mg daily ,Atorvastatin 40 mg daily, Imdur 30 mg daily changed Toprol XL to 25 mg daily patient is fully awake alert oriented x3. out of bed to chair with meals. Denied chest pain palpitation dyspnea. 02/27/25 patient is seen and examined patient underwent Lexiscan pending results. We will continue to monitor patient closely. She is asleep and waking per verbal stimuli primary nurse reports she was having GI problems post Lexiscan. 02/28/25 s/p Lexiscan Reversible large defect in the anterior, septal lucas. TID 1.19. LVEF 39%. Dr Osorio scheduled the patient for Left Heart cath tomorrow. The patient denies chest pain palpitation dyspnea. 03/01/25 patient was evaluated this continues without chest pain or palpitations patient had a Lexiscan stress test is PCI this after the. Patient NPO after breakfast. 03/02 patient was seen by nurse practitioner and physician during rounding in room 429. Patient is s/p left heart catheterization 03/01/[address] Jefry osorio and at this moment he is recommending cardiovascular surgeon for possible CABG evaluation. Once patient will be medically stable we will consult [facility] for evaluation. Continue one-to-one sitter for now. Continue to monitor patient in the meantime. A.m. labs 03/03 patient was seen by nurse practitioner physician during rounding. Patient was seen by cardiovascular surgeon and is pending CABG as per note at the end of this week. As per RN patient's blood pressure has been on lower side. We will order midodrine 10 mg p.r.n. t.i.d. for systolic less than 100. As per cardi ologist Dr. Jefry osorio who was rounding okay with the above-stated medicine. We will continue to monitor patient in the meantime. A.m. labs. 03/04 patient was seen by nurse practitioner and physician during rounding. Patient was evaluated by the cardiovascular surgeon and he is came to perform CABG once the patient will be off Effient for 5 to 7 days. Last dose that was administered to the patient of Effient 10 mg was given on 03/01/2025 at 12:16 p.m. we will continue to monitor patient in the meantime. A.m. labs 03/05 patient was seen by nurse practitioner and physician during rounding in room 429. Patient is pending CABG once 5 to 7 days of Effient on hold we will be completed. WBC 7.3. Electrolyte replaced per protocol. Patient denies any shortness of breath, chest pain, nausea, vomiting or any other discomfort at this moment. We will continue to monitor patient in the meantime. A.m. labs 03/06/2025 - patient is seen in room 429, patient had an episode of intermittent chest pain on exertion when she went to the washroom. Chest pain relieved with sublingual nitro, troponin and EKG were ordered which were normal. Ordered granulator cortisol, we will follow up with the lab. Patient to be scheduled for CABG. Heart rate currently on the lower side around 50s - 60s. Patient is asymptomatic otherwise, we will follow the patient closely. 03/07 patient was seen by nurse practitioner physician during rounding in room 429. Patient is pending CABG by cardiovascular surgeon possibly tomorrow 2024. During evaluation patient denies any shortness of breath, chest pain, nausea, vomiting or any other discomfort. Patient will receive a dose of potassium. We will continue to monitor patient in the meantime. A.m. labs REVIEW OF SYSTEMS a 14 point ROS obtained all relevant positive documented otherwise ROS negative PHYSICAL EXAM GENERAL APPEARANCE: The patient is awake, alert, and oriented, in no acute cardiopulmonary distress. NEUROLOGICAL: Cranial nerves II-XII grossly intact. Motor is 5/5 in bilateral upper and lower extremities proximal to distal. No sensory deficits. HEENT: Face is symmetric. Pupils are equal and reactive. Extraocular movements are intact. NECK: Supple. No JVD. No thyromegaly. No submental, submandibular, pre- /postauricular, occipital or supraclavicular lymphadenopathy. CHEST: Normal chest expansion. No Telemetry. LUNGS: Absence of any rales, rhonchi or any wheezing. CARDIOVASCULAR: Regular. S1 and S2 normal. No appreciable rubs, murmurs or gallops. ABDOMEN: Soft, nontender, and nondistended. There is no rebound, voluntary guarding, or rigidity. : Deferred. No [place]. EXTREMITIES: Non-edematous and not cyanotic. No clubbing. Good capillary refill. SKIN: No skin breakdown. Vital Signs (last 8hr) Date Time Temp Pulse Resp B/P (MAP) Pulse Ox O2 Delivery O2 Flow Rate FiO2 03/07/25 12:00 98.1 59 19 121/62 93 Room Air 03/07/25 10:39 99 Room Air* 0 21 03/07/25 08:00 97.5 65 19 128/75 97 Room Air LABS: Laboratory: Test 03/07/25 11:35 03/07/25 04:11 03/06/25 10:36 03/06/25 04:39 Range/Units Whole Blood Glucose 141 H 70-110 MG/DL White Blood Count 7.4 4.8-10.8 K/uL Red Blood Count 3.70 L 4.00-5.50 MIL/uL Hemoglobin 11.4 L 12.0-16.0 g/dL Hematocrit 34.6 L 36-48 % Mean Corpuscular Volume 93.5 79-99 fL Mean Corpuscular Hemoglobin 30.8 27.0-33.0 pg Mean Corpuscular Hemoglobin Concent 32.9 32.0-36.0 g/dL Red Cell Distribution Width 13.2 11.0-15.5 % Platelet Count 242 130-400 K/uL Mean Platelet Volume 11.0 H 7.5-10.5 fL Immature Granulocyte % (Auto) 0.3 0-1 % Neutrophils (%) (Auto) 52.8 40.0-77.0 % Lymphocytes (%) (Auto) 40.4 21.0-51.0 % Monocytes (%) (Auto) 5.3 3.0-13.0 % Eosinophils (%) (Auto) 0.8 0.0-8.0 % Basophils (%) (Auto) 0.4 0.0-5.0 % Neutrophils # (Auto) 3.9 1.8-7.7 K/uL Lymphocytes # (Auto) 3.0 1.0-4.8 K/uL Monocytes # (Auto) 0.4 0.1-1.0 K/uL Eosinophils # (Auto) 0.06 0.00-0.70 K/uL Basophils # (Auto) 0.03 0.00-0.20 K/uL Absolute Immature Granulocyte (auto 0.02 0-1 K/uL Nucleated Red Blood Cells 0.0 0.0-0.19 % Sodium Level 137 136-145 mmol/L Potassium Level 3.8 3.5-5.1 mmol/L Chloride Level 101 101-111 mmol/L Carbon Dioxide Level 30 21-32 mmol/L Blood Urea Nitrogen 13 7-18 mg/dL Creatinine 0.5 0.5-1.0 mg/dL Glomerular Filtration Rate Calc 107 >90 mL/min Random Glucose 96 70-105 mg/dL Total Calcium 9.7 8.5-10.1 mg/dL Troponin I High Sensitivity 9 4-50 ng/L Magnesium Level 2.10 1.80-2.40 mg/dL Total Bilirubin 0.3 0.2-1.0 mg/dL Aspartate Amino Transf (AST/SGOT) 16 10-37 U/L Alanine Aminotransferase (ALT/SGPT) 26 12-78 U/L Alkaline Phosphatase 65 50-136 U/L Total Protein 6.7 6.0-8.3 g/dL Albumin 3.4 L 3.5-5.0 g/dL Current Medications Medications (Trade) Dose Ordered Sig/Toby Route PRN Reason Start Time Stop Time Status Last Admin Dose Admin Acetaminophen (TYLenol 325MG TAB) 650 mg Q4H PRN PO TEMPERATURE GREATER THAN 101.5 02/24/25 07:00 03/26/25 06:59 03/01/25 19:06 650 MG Acetaminophen (TYLenol 325MG TAB) 650 mg Q4H PRN PO MILD PAIN (1-3) 03/02/25 02:30 04/01/25 02:29 03/04/25 10:39 650 MG Aspirin (Aspirin 81mg Chew Tab) 81 mg DAILY PO 02/25/25 09:00 03/01/25 12:33 DC 02/28/25 09:18 81 MG Aspirin (Aspirin 81mg Chew Tab) 81 mg DAILY PO 03/02/25 09:00 04/01/25 08:59 03/07/25 08:48 81 MG Aspirin (Aspirin 81mg Ec Tab) 81 mg DAILY PO 02/24/25 09:00 02/24/25 08:52 DC Atorvastatin Calcium (LIPItor 20MG) 20 mg HS PO 02/24/25 21:00 02/24/25 08:52 DC Atorvastatin Calcium (LIPItor 40MG) 40 mg HS PO 02/24/25 21:00 03/26/25 20:59 03/06/25 20:23 40 MG Citalopram Hydrobromide (CeleXA 20MG TAB) 10 mg DAILY PO 02/25/25 09:00 03/27/25 08:59 03/07/25 08:47 10 MG Dextrose (D50w) 50 ml AD PRN IV HYPOGLYCEMIA PROTOCOL 03/01/25 12:30 03/31/25 12:29 Docusate Sodium (COLace 100MG CAP) 100 mg BID PO 03/03/25 21:00 03/03/25 16:22 DC Famotidine (Pepcid 20mg Tab) 20 mg BID PO 02/24/25 09:00 03/26/25 08:59 03/07/25 08:47 20 MG Glucagon (Glucagon 1mg Kit) 1 mg AD PRN IM HYPOGLYCEMIA PROTOCOL 03/01/25 12:30 03/31/25 12:29 Heparin Sodium/ Dextrose 250 ml @ 0 mls/hr PROTOCOL PRN IV PROTOCOL 02/24/25 06:00 02/25/25 05:59 DC 02/25/25 01:09 7.36 MLS/HR Insulin Human Regular (humuLIN R 100 UNIT/ML 3ML) INSULIN SLIDING SCAL... ACHS SQ 02/24/25 11:30 03/26/25 11:29 03/06/25 20:24 6 UNIT Isosorbide Mononitrate (Imdur 30mg Sr) 30 mg DAILY PO 02/24/25 09:00 03/06/25 11:46 DC 03/06/25 08:13 30 MG Isosorbide Mononitrate (Imdur 30mg Sr) 60 mg DAILY PO 03/07/25 09:00 04/06/25 08:59 03/07/25 08:47 60 MG Ketorolac Tromethamine (ketOROlac troMETHamine) 15 mg Q6H PRN PO MODERATE PAIN (4-6) 03/03/25 18:00 03/03/25 16:22 DC Magnesium Sulfate 50 ml @ 0 mls/hr PROTOCOL PRN IV low mag level 02/24/25 09:30 03/26/25 09:29 Metoprolol Succinate (TopROL XL) 12.5 mg DAILY PO 02/24/25 09:00 03/06/25 18:49 DC 03/03/25 08:36 12.5 MG Midodrine (PROAMatine 5 MG TABLET) 10 mg TID PO 03/03/25 14:00 04/02/25 13:59 03/07/25 08:47 10 MG Nitroglycerin (Nitrostat) 0.4 mg Q5M PRN SL CHEST PAIN 02/24/25 06:00 03/06/25 08:51 DC 03/06/25 08:50 0.4 MG Potassium Chloride 100 ml @ 50 mls/hr AD PRN IV POTASSIUM PROTOCOL 02/24/25 09:30 03/26/25 09:29 Potassium Chloride 100 ml @ 100 mls/hr AD PRN IV POTASSIUM PROTOCOL 02/26/25 11:30 02/27/25 09:49 DC Potassium Chloride (K-Dur/Klor-Con 20meq) 20 meq AD PRN PO POTASSIUM PROTOCOL 02/26/25 11:30 03/28/25 11:29 03/07/25 05:23 20 MEQ Potassium Chloride (KCl 10% Elixir 20meq/15ml) 20 meq AD PRN PO POTASSIUM PROTOCOL 02/26/25 11:30 03/28/25 11:29 Prasugrel (Effient 10mg) 10 mg DAILY PO 02/25/25 09:00 03/01/25 12:54 DC 02/28/25 09:18 10 MG Sodium Chloride 1,000 ml @ 150 mls/hr Q6H40M IV 03/01/25 12:30 03/01/25 16:29 DC 03/01/25 19:04 150 MLS/HR DIAGNOSTICS / RADIOLOGY: [ ] Assessment: unstable angina Rule n ACS s/p Lexiscan Reversible large defect in the anterior, septal lucas. TID 1.19. LVEF 39%. hypercoagulable state on Prasugrel POA functional decline: s/p BKA POA moderated protein calorie malnutrition with muscle atrophy ; BMI 19 POA History of Myocardial infarction 2023 Uncontrolled hypertension POA Hyperlipidemia Uncontrolled diabetes mellitus type 2 with hyperglycemia POA PLAN: Admit: Patient will be on telemetry condition: guarded Status: full code IVF:heplock prasugrel 10 mg po daily on hold for now , will continue Isosorbide ER 30 mg po daily, Atorvastatin 40 mg po HS. Patient will be started on midodrine 10 mg t.i.d. PRN for systolic blood pressure less than 100. nitroglycerin 0.4 mg subL, as directed for chest pain. s/p Lexiscan abnormal: Plan for PCI this afternoon Left heart catheterization performed 03/01/2025 abnormal As per cardiology consult cardiovascular surgeon for possible CABG Possible CABG within 5 to 7 days from last dose of Effient. Last dose of Effient 10 mg p.o. was given a on 03/01/2025 at 12:16 p.m. Possible CABG 03/08/2025 A.m. labs Replace electrolytes as needed as per protocol to keep potassium above 4.0 magnesium 2.0. ac/hs monitoring with SSRI coverage Follow up with morning cortisol levels Supportive measures: DVT ppx, GI ppx all questions answered ATTESTATION BY PHYSICIAN I have seen and examined the patient. I reviewed the documentation, medical decision making, and treatment plan as noted by the mid-level provider above. I agree with the findings and plan of care. PATEL Estevez MD [employer] Mar 07, 2025 13:10
--- NOTE | 2025-03-07 19:02 | PN ---
Cardiology Progress Note Date of Service: 03/07/2025 Attending Route Sales Associate: Dr. Malik Villegas Primary Route Sales Associate: Dr. 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 on 02/25/2025) -h/o of ACS-STEMI s/p PCI with VIANEY placement (BSS 3.0x20 mm) in the proximal LAD, VIANEY placement (BSS 3.5x16 mm) in the proximal LCx, VIANEY placement (BSS 3.0x12 mm) in the mid LCx, and VIANEY placement (BSS 2.75x24 mm) in the distal LCx done on 07/17/2024 -h/o Intraprocedural VT in July 2024 -h/o cardiogenic shock requiring Impella placement in July 2024 -Right lower extremity ischemia secondary to Impella placement resulting in RLE limb ischemia s/p right BKA -Ischemic cardiomyopathy -HLP -DM2 -Hypochromic anemia -Medication noncompliance Subjective: This is a 59y/o female who was seen and evaluated at the bedside today. The patient denies any active complaints including recurrent chest pain, chest pressure, palpitations or shortness of breath. As per the nurse, there were no overnight events. She has been evaluated by CT surgery and is pending CABG in the upcoming days. Vitals/Labs Vital Signs Date Time Temp Pulse Resp B/P (MAP) Pulse Ox O2 Delivery O2 Flow Rate FiO2 03/07/25 16:00 97.9 53 19 115/66 98 Room Air 03/07/25 10:39 0 21 General: Alert and oriented. NAD. Chronically ill appearing. HEENT: NC/AT. Oral mucosa is moist. Poor dentition. Neck: No masses or carotid bruits. Lungs: NRD. SCM. Bilateral air entry. CTA. No obvious wheezing, rales or rhonchi. Cardio: Regular rate. Normal S1 and S2. +S4. No obvious murmur, gallops, or rubs noted. Abdomen: Soft. NT. ND. Normal active bowel sounds x 4 quadrants. Extremities: Right BKA noted. +2 pulses noted in the left lower extremity. Neuro: CN II-XII were grossly intact. No obvious focal deficits. 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 2V+branch CAD (LAD, LCx, OM1) identified on [facility] done on 03/01/2025 -The patient has been evaluated by CT surgery and is scheduled to undergo CABG in the upcoming days. -Prasugrel remains on hold (last dose 02/28/2025) in preparation for CABG. -The patient will continue on aspirin 81 mg daily, isosorbide mononitrate ER 60 mg daily, and atorvastatin 40 mg QHS. -BB therapy has been held due to episodes of sinus bradycardia. 2. 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 -Please record strict I/O's, daily weights, and restrict fluids to less than 2.0L/day This case was discussed with my Supervising Physician, Dr. Malik Villegas, and the above mentioned plan was formulated and agreed upon. -Progress Note written by Mandeep Prince, MSN, [employer], AGACNP-BC MANDEEP PRINCE NP Mar 07, 2025 19:02
[2025-03-08] VITALS (42 sets, daily range): BP systolic 25–176; BP diastolic 23–107; PULSE 48–124; RESP 8–17; TEMP 95–98.4; O2SAT 91–100
--- NOTE | 2025-03-08 01:06 | NUR ---
nurse note patient alert and oriented times 3. plan of care discussed with her and she verbalized understanding. dr. mcfarland is doing a cabag at 11:00, I let general warehouse worker know. Patient signed the consent and she is npo after midnight. delonte Subramanian, clipped her from the chin to the ankles and the patient showered twice with hibiclens and chg wipes. The type and screen and ABOH were not drawn until 02:00 am because the patient has been very upset at her for telling her that, "your attitude got you to loose your leg in [facility]" along with profanity words. The patient did not want us in her room after her conversation with her . She was very upset and was crying. She then started reading her book and calmed down. She has slept about 3 hours tonight. Call light within reach, bed alarm on, 2 side rails up. will continue to monitor patient.
[2025-03-08 02:36] LABS: IMMATURE GRANULOCYTE ABSOLUTE 0.01 K/uL (0-1); NUCLEATED RED BLOOD CELLS 0.0 % (0.0-0.19); PLATELET COUNT (AUTO) 256 K/uL (130-400); RED BLOOD CELL COUNT(AUTO) 3.59 MIL/uL (4.00-5.50); RED CELL DISTRIBUTION WIDTH 13.1 % (11.0-15.5); WHITE BLOOD COUNT (AUTO) 6.7 K/uL (4.8-10.8)
[2025-03-08 02:46] LABS: INR 1.03 (0.85-1.15)
[2025-03-08 02:55] LABS: ASPARTATE AMINOTRANSFERASE 17.0 U/L (10-37); CREATININE 0.6 mg/dL (0.5-1.0); GLOMERULAR FILTR. RATE CALC 102.0 mL/min (>90); GLUCOSE,RANDOM 114.0 mg/dL (70-105); LDL DIRECT 58.0 mg/dL (0-99); SODIUM SERUM 137.0 mmol/L (136-145); TOTAL PROTEIN, SERUM 6.6 g/dL (6.0-8.3); UREA NITROGEN, BLOOD 13.0 mg/dL (7-18)
--- NOTE | 2025-03-08 05:46 | EKG ---
[facility] Test Date: 2025-03-08 Test Time: 05:37:04 Pat Name: SHAHZAD PAGE Department: [facility] Room: 213 Gender: F Station Helper: [phone] : 1965 Requested By: MAX PAYTON Order Number: [id number] Reading MD: August Jensen Measurements Intervals [place] Rate: 59 P: 54 MN: 156 QRS: 31 QRSD: 94 T: 130 QT: 420 QTc: 415 Interpretive Statements Sinus bradycardia with premature atrial complexes with aberrant conduction ST & T wave abnormality, consider lateral ischemia Compared to ECG 03/06/2025 11:45:51 Atrial premature complex(es) now present Aberrant conduction of supraventricular beat(s) now present Myocardial infarct finding no longer present ST (T wave) deviation still present Possible ischemia still present Electronically Signed On 03-08-2025 17:18:59 CDT by August Jensen Please click the below link to view image of tracing.
[2025-03-08] MEDS ORDERED: NOREPINEPHRIN 8MG/250ML NS 250 ML IV PRN (07:00)
[2025-03-08] MEDS: 0.9%NACL 1000ML 1,000 ML IV ONE (07:24)
[2025-03-08] MEDS ORDERED: LIDOCAINE 2G/250ML 250 ML IV ONE (07:30)
[2025-03-08] MEDS ORDERED: NITROGLYCERIN 50MG/D5W 250ML 1 BOT ONE (07:34)
[2025-03-08] MEDS ORDERED: HEParin-NS 1,000 UNIT/500 ML 500 ML IV ONE (07:36)
[2025-03-08] MEDS ORDERED: PAPAVERINE HCL 30 MG/ML 2ML VIAL ONE (07:38)
[2025-03-08] MEDS ORDERED: NOREPINEPHRINE BITARTRATE 1 MG/1 ML ML IV ONE (08:28)
[2025-03-08] MEDS ORDERED: PROTamine SULFate 10 MG/ML 25ML VIAL IV ONE (08:28)
[2025-03-08] MEDS ORDERED: SODIUM BICARB 50MEQ 50ML VIAL 150 ML ONE (08:28)
[2025-03-08] MEDS ORDERED: LIDOCAINE PF 100MG/5ML (2%) SYRINGE 5ML ONE ×3 (08:28→12:42)
[2025-03-08] MEDS ORDERED: ETOMIDATE 20MG VIAL ONE (08:29)
[2025-03-08] MEDS ORDERED: MIDAZOLAM HCL 1 MG/ML 2ML VIAL ONE (08:29)
[2025-03-08] MEDS ORDERED: AMIOdarone 150MG/100ML BAG 100 ML ONE (09:08)
[2025-03-08 09:13] LABS: ABG BASE EXCESS -1.0 mmol/L (-2.0-3.0); ABG HCO3 23.8 mmol/L (21.0-28.0); ABG OXYGEN SATURATION 99.7 % (94.0-98.0); ABG PCO2 40 mmHg (32-45); ABG PH 7.394 (7.350-7.450); CARBON MONOXIDE 0.3 % (0.5-1.5); DEVICE COMMENT 1; PO2, ARTERIAL BG 440.5 mmHg (83.0-108.0); TEMPERATURE, CELSIUS BG 37.0 CELSIUS (35.5-37.0)
[2025-03-08] MEDS ORDERED: 0.9%NACL 10ML VIAL IVP PRN (09:30)
[2025-03-08] MEDS ORDERED: GLUCAGON 1MG KIT 1 MG ML IM PRN (09:30)
[2025-03-08] MEDS ORDERED: NOREPINEPHRINE BITARTRATE 8 MG in DEXTROSE 5%-WATER 250 ML IV PRN (09:30)
[2025-03-08] MEDS ORDERED: MAGNESIUM HYDROXIDE 30 ML/UDCUP PO PRN (09:30)
[2025-03-08] MEDS ORDERED: NITROGLYCERIN 50MG/D5W 250ML 250 BOT IV SCH (09:30)
[2025-03-08 09:52] LABS: ABG BASE EXCESS -4.7 mmol/L (-2.0-3.0); ABG HCO3 21.2 mmol/L (21.0-28.0); ABG OXYGEN SATURATION 99.7 % (94.0-98.0); ABG PCO2 42 mmHg (32-45); ABG PH 7.317 (7.350-7.450); CARBON MONOXIDE 0.1 % (0.5-1.5); PO2, ARTERIAL BG 475.2 mmHg (83.0-108.0); TEMPERATURE, CELSIUS BG 37.0 CELSIUS (35.5-37.0)
[2025-03-08 10:31] LABS: ABG BASE EXCESS 5.8 mmol/L (-2.0-3.0); ABG HCO3 28.7 mmol/L (21.0-28.0); ABG OXYGEN SATURATION 99.4 % (94.0-98.0); ABG PCO2 35 mmHg (32-45); ABG PH 7.536 (7.350-7.450); CARBON MONOXIDE 0.2 % (0.5-1.5); DEVICE COMMENT 2; PO2, ARTERIAL BG 324.3 mmHg (83.0-108.0); TEMPERATURE, CELSIUS BG 37.0 CELSIUS (35.5-37.0)
[2025-03-08 10:53] LABS: ABG BASE EXCESS 0.1 mmol/L (-2.0-3.0); ABG HCO3 23.5 mmol/L (21.0-28.0); ABG OXYGEN SATURATION 99.1 % (94.0-98.0); ABG PCO2 33 mmHg (32-45); ABG PH 7.471 (7.350-7.450); CARBON MONOXIDE 0.3 % (0.5-1.5); DEVICE COMMENT 3; PO2, ARTERIAL BG 282.9 mmHg (83.0-108.0); TEMPERATURE, CELSIUS BG 37.0 CELSIUS (35.5-37.0)
[2025-03-08 11:19] LABS: ABG BASE EXCESS 3.8 mmol/L (-2.0-3.0); ABG HCO3 27.1 mmol/L (21.0-28.0); ABG OXYGEN SATURATION 99.1 % (94.0-98.0); ABG PCO2 36 mmHg (32-45); ABG PH 7.495 (7.350-7.450); CARBON MONOXIDE 0.3 % (0.5-1.5); PO2, ARTERIAL BG 269.7 mmHg (83.0-108.0); TEMPERATURE, CELSIUS BG 37.0 CELSIUS (35.5-37.0)
[2025-03-08 11:43] LABS: ABG BASE EXCESS 0.7 mmol/L (-2.0-3.0); ABG HCO3 22.6 mmol/L (21.0-28.0); ABG OXYGEN SATURATION 99.3 % (94.0-98.0); ABG PCO2 27 mmHg (32-45); ABG PH 7.548 (7.350-7.450); CARBON MONOXIDE 0.3 % (0.5-1.5); PO2, ARTERIAL BG 327.7 mmHg (83.0-108.0); TEMPERATURE, CELSIUS BG 37.0 CELSIUS (35.5-37.0)
[2025-03-08 12:37] LABS: ABG BASE EXCESS 8.9 mmol/L (-2.0-3.0); ABG HCO3 31.3 mmol/L (21.0-28.0); ABG OXYGEN SATURATION 97.0 % (94.0-98.0); ABG PCO2 34 mmHg (32-45); ABG PH 7.585 (7.350-7.450); CARBON MONOXIDE 0.2 % (0.5-1.5); DEVICE COMMENT 6; PO2, ARTERIAL BG 88.8 mmHg (83.0-108.0); TEMPERATURE, CELSIUS BG 37.0 CELSIUS (35.5-37.0)
[2025-03-08] MEDS ORDERED: SODIUM BICARB 50MEQ 50ML VIAL 100 ML ONE ×2 (12:45→12:50)
[2025-03-08] MEDS ORDERED: DELNIDO FORMULA 0 BAG IV ONE (12:48)
--- NOTE | 2025-03-08 12:57 | PN ---
[facility] PROGRESS NOTE Date of Service: Mar 08, 2025 Time of Service: 12:54 Attending doctor Nikole SUBJECTIVE: [ ] admission date: 02/24/25 PCP: Agnieszka Shi DO chief complaint: Chest pain Primary project control analyst: Dr Jefry Osorio This is a 59-year-old female presents in ED with chief complaints of chest pain. Onset started this morning at 2:00 a.m. patient was awaken with chest pain. Reports she has been having chest pain for a week. Location midsternal does not radiate,location midsternal stated the pain on arrival was 10/10 on pain scale. aggravated none: alleviating factors: none. Patient denies palpitation, dizziness, shortness for breath. 12 lead EKG on arrival showed heart rate [address] depression in the lateral Leads. As per ED physician changes in V5 and V6 were not seen in December 2024. Presence of LVH noted anterior STT wave changes were also. ER initiated heparin drip. Was given Full dose Aspirin and Morphine 2 mg IV x1. Troponin 1st set was negative. 02/25/25 patient was seen earlier patient reports she had chest pain overnight 3:00 a.m. patient was given nitroglycerin: continue on Heparin drip; Echo pending no chest pain at this time. she is fully alert oriented x3. 02/26/25 2D echocardiogram revealed a hypokinetic anteroseptal and anterolateral wall. LVEF 40-45%, the patient denies any cardiac symptoms or chest pain. Dr Osorio recommendations: lexiscan in am medical management for now ASA 81 mg daily , Prasugrel 10 mg daily ,Atorvastatin 40 mg daily, Imdur 30 mg daily changed Toprol XL to 25 mg daily patient is fully awake alert oriented x3. out of bed to chair with meals. Denied chest pain palpitation dyspnea. 02/27/25 patient is seen and examined patient underwent Lexiscan pending results. We will continue to monitor patient closely. She is asleep and waking per verbal stimuli primary nurse reports she was having GI problems post Lexiscan. 02/28/25 s/p Lexiscan Reversible large defect in the anterior, septal lucas. TID 1.19. LVEF 39%. Dr Osorio scheduled the patient for Left Heart cath tomorrow. The patient denies chest pain palpitation dyspnea. 03/01/25 patient was evaluated this continues without chest pain or palpitations patient had a Lexiscan stress test is PCI this after the. Patient NPO after breakfast. 03/02 patient was seen by nurse practitioner and physician during rounding in room 429. Patient is s/p left heart catheterization 03/01/[address] Jefry osorio and at this moment he is recommending cardiovascular surgeon for possible CABG evaluation. Once patient will be medically stable we will consult [facility] for evaluation. Continue one-to-one sitter for now. Continue to monitor patient in the meantime. A.m. labs 03/03 patient was seen by nurse practitioner physician during rounding. Patient was seen by cardiovascular surgeon and is pending CABG as per note at the end of this week. As per RN patient's blood pressure has been on lower side. We will order midodrine 10 mg p.r.n. t.i.d. for systolic less than 100. As per c ardiologist Dr. Jefry osorio who was rounding okay with the above-stated medicine. We will continue to monitor patient in the meantime. A.m. labs. 03/04 patient was seen by nurse practitioner and physician during rounding. Patient was evaluated by the cardiovascular surgeon and he is came to perform CABG once the patient will be off Effient for 5 to 7 days. Last dose that was administered to the patient of Effient 10 mg was given on 03/01/2025 at 12:16 p.m. we will continue to monitor patient in the meantime. A.m. labs 03/05 patient was seen by nurse practitioner and physician during rounding in room 429. Patient is pending CABG once 5 to 7 days of Effient on hold we will be completed. WBC 7.3. Electrolyte replaced per protocol. Patient denies any shortness of breath, chest pain, nausea, vomiting or any other discomfort at this moment. We will continue to monitor patient in the meantime. A.m. labs 03/06/2025 - patient is seen in room 429, patient had an episode of intermittent chest pain on exertion when she went to the washroom. Chest pain relieved with sublingual nitro, troponin and EKG were ordered which were normal. Ordered care partner cortisol, we will follow up with the lab. Patient to be scheduled for CABG. Heart rate currently on the lower side around 50s - 60s. Patient is asymptomatic otherwise, we will follow the patient closely. 03/07 patient was seen by nurse practitioner physician during rounding in room 429. Patient is pending CABG by cardiovascular surgeon possibly tomorrow . During evaluation patient denies any shortness of breath, chest pain, nausea, vomiting or any other discomfort. Patient will receive a dose of potassium. We will continue to monitor patient in the meantime. A.m. labs 03/08 patient was seen by nurse practitioner and physician during rounding in room 213. Patient is s/p CABG. No family members at the bedside at this m oment. We will continue to monitor patient in the meantime. A.m. labs REVIEW OF SYSTEMS a 14 point ROS obtained all relevant positive documented otherwise ROS negative PHYSICAL EXAM GENERAL APPEARANCE: The patient is awake, alert, and oriented, in no acute cardiopulmonary distress. NEUROLOGICAL: Cranial nerves II-XII grossly intact. Motor is 5/5 in bilateral upper and lower extremities proximal to distal. No sensory deficits. HEENT: Face is symmetric. Pupils are equal and reactive. Extraocular movements are intact. NECK: Supple. No JVD. No thyromegaly. No submental, submandibular, pre- /postauricular, occipital or supraclavicular lymphadenopathy. CHEST: Normal chest expansion. No Telemetry. LUNGS: Absence of any rales, rhonchi or any wheezing. CARDIOVASCULAR: Regular. S1 and S2 normal. No appreciable rubs, murmurs or gallops. ABDOMEN: Soft, nontender, and nondistended. There is no rebound, voluntary guarding, or rigidity. : Deferred. No [place]. EXTREMITIES: Non-edematous and not cyanotic. No clubbing. Good capillary refill. SKIN: No skin breakdown. Vital Signs (last 8hr) Date Time Temp Pulse Resp B/P (MAP) Pulse Ox O2 Delivery O2 Flow Rate FiO2 03/08/25 07:25 97.9 48 16 127/64 97 Room Air 21 LABS: Laboratory: Test 03/08/25 12:36 03/08/25 05:33 03/08/25 02:22 Range/Units Blood Gas Specimen Type Arterial Arterial Blood pH 7.585 H 7.350-7.450 Arterial Blood Partial Pressure CO2 34 32-45 mmHg Arterial Blood Partial Pressure O2 88.8 83.0-108.0 mmHg Arterial Blood HCO3 31.3 H 21.0-28.0 mmol/L Arterial Blood Oxygen Saturation 97.0 94.0-98.0 % Arterial Blood Base Excess 8.9 H -2.0-3.0 mmol/L Hemoglobin (Blood Gas) 7.3 L 12.0-16.0 g/dL Sodium (Blood Gas) 155 H 136-145 MMOL/L Bedside Potassium (Blood Gas) 4.5 3.4-4.5 MMOL/L Bedside Chloride (Blood Gas) 114 H 98-107 MMOL/L Bedside Glucose (Blood Gas) 244 H 65-95 MG/DL Bedside Ionized Calcium (Blood Gas) 1.52 H 1.15-1.33 MMOL/L Bedside Lactic Acid (Blood Gas) 8.24 *H 0.36-0.75 MMOL/L Blood Gas Temperature 37.0 35.5-37.0 CELSIUS FiO2 100.0 % Blood Gas Specimen Comment 6 Whole Blood Glucose 119 H 70-110 MG/DL White Blood Count 6.7 4.8-10.8 K/uL Red Blood Count 3.59 L 4.00-5.50 MIL/uL Hemoglobin 11.0 L 12.0-16.0 g/dL Hematocrit 32.9 L 36-48 % Mean Corpuscular Volume 91.6 79-99 fL Mean Corpuscular Hemoglobin 30.6 27.0-33.0 pg Mean Corpuscular Hemoglobin Concent 33.4 32.0-36.0 g/dL Red Cell Distribution Width 13.1 11.0-15.5 % Platelet Count 256 130-400 K/uL Mean Platelet Volume 11.0 H 7.5-10.5 fL Immature Granulocyte % (Auto) 0.2 0-1 % Neutrophils (%) (Auto) 39.3 L 40.0-77.0 % Lymphocytes (%) (Auto) 51.4 H 21.0-51.0 % Monocytes (%) (Auto) 6.5 3.0-13.0 % Eosinophils (%) (Auto) 2.1 0.0-8.0 % Basophils (%) (Auto) 0.5 0.0-5.0 % Neutrophils # (Auto) 2.6 1.8-7.7 K/uL Lymphocytes # (Auto) 3.4 1.0-4.8 K/uL Monocytes # (Auto) 0.4 0.1-1.0 K/uL Eosinophils # (Auto) 0.14 0.00-0.70 K/uL Basophils # (Auto) 0.03 0.00-0.20 K/uL Absolute Immature Granulocyte (auto 0.01 0-1 K/uL Nucleated Red Blood Cells 0.0 0.0-0.19 % Prothrombin Time 10.9 9.6-11.6 SEC Prothromb Time International Ratio 1.03 0.85-1.15 Activated Partial Thromboplast Time 24.8 L 26.3-35.5 SEC Sodium Level 137 136-145 mmol/L Potassium Level 3.9 3.5-5.1 mmol/L Chloride Level 102 101-111 mmol/L Carbon Dioxide Level 30 21-32 mmol/L Blood Urea Nitrogen 13 7-18 mg/dL Creatinine 0.6 0.5-1.0 mg/dL Glomerular Filtration Rate Calc 102 >90 mL/min Random Glucose 114 H 70-105 mg/dL Hemoglobin A1c 7.0 H 4.0-6.0 % Estimated Average Glucose (eAG) 154 H 70-126 mg/dL Total Calcium 9.9 8.5-10.1 mg/dL Magnesium Level 2.00 1.80-2.40 mg/dL Total Bilirubin 0.4 0.2-1.0 mg/dL Aspartate Amino Transf (AST/SGOT) 17 10-37 U/L Alanine Aminotransferase (ALT/SGPT) 25 12-78 U/L Alkaline Phosphatase 67 50-136 U/L TQ-Bre-T-Type Natriuretic Peptide 914 H 0-125 pg/mL Total Protein 6.6 6.0-8.3 g/dL Albumin 3.5 3.5-5.0 g/dL Triglycerides Level 82 30-200 mg/dL Cholesterol Level 126 # <200 mg/dL LDL Cholesterol 58 0-99 mg/dL HDL Cholesterol 56 35-85 mg/dL Current Medications Medications (Trade) Dose Ordered Sig/Toby Route PRN Reason Start Time Stop Time Status Last Admin Dose Admin Acetaminophen (TYLenol 325MG TAB) 650 mg Q4H PRN PO TEMPERATURE GREATER THAN 101.5 02/24/25 07:00 03/26/25 06:59 03/01/25 19:06 650 MG Acetaminophen (TYLenol 325MG TAB) 650 mg Q4H PRN PO MILD PAIN (1-3) 03/02/25 02:30 04/01/25 02:29 03/04/25 10:39 650 MG Acetaminophen (TYLenol 325MG TAB) 650 mg Q4H PRN PO Temp >38.3C(AFTER EXTUBATION) 03/08/25 09:30 03/08/25 09:29 DC Acetaminophen (TYLenol 325MG TAB) 650 mg Q6H PRN PO MILD PAIN (1-3) 03/08/25 09:30 03/08/25 09:36 DC Acetaminophen (TYLenol 650MG SUPPOSITORY) 650 mg Q4H PRN RC Temp >38.3C WHILE INTUBATED 03/08/25 09:30 04/07/25 09:29 Acetaminophen (acetaMINOPHEN) 1,000 mg Q6H6 IV 03/08/25 13:00 03/09/25 12:59 Albumin Human 250 ml @ 0 mls/hr AD PRN IV IF HEMODYNAMICALLY UNSTABLE 03/08/25 09:30 Aminocaproic Acid 71966 mg/Sodium Chloride 310 ml @ 25 mls/hr AD IV 03/08/25 09:30 03/08/25 09:31 DC Aminocaproic Acid 33515 mg/Sodium Chloride 480 ml @ 0 mls/hr AD PRN IV BLEEDING CONTROL 03/08/25 07:00 04/07/25 06:59 Amiodarone HCl 360 mg/Dextrose 207.2 ml @ 33.3 mls/hr AD IV 03/08/25 13:00 03/08/25 12:52 DC Amiodarone HCl 360 mg/Dextrose 207.2 ml @ 33.3 mls/hr AD IV 03/08/25 13:00 03/08/25 12:52 DC Amiodarone HCl 540 mg/Dextrose 310.8 ml @ 16.7 mls/hr [id number] STAT IV 03/08/25 12:45 03/09/25 07:21 UNV Aspirin (Aspirin 81mg Chew Tab) 81 mg DAILY PO 02/25/25 09:00 03/01/25 12:33 DC 02/28/25 09:18 81 MG Aspirin (Aspirin 81mg Chew Tab) 81 mg DAILY PO 03/02/25 09:00 04/01/25 08:59 03/07/25 08:48 81 MG Aspirin (Aspirin 81mg Ec Tab) 81 mg DAILY PO 02/24/25 09:00 02/24/25 08:52 DC Atorvastatin Calcium (LIPItor 20MG) 20 mg HS PO 02/24/25 21:00 02/24/25 08:52 DC Atorvastatin Calcium (LIPItor 40MG) 40 mg HS PO 02/24/25 21:00 03/26/25 20:59 03/07/25 20:28 40 MG Calcium Gluconate 1 gm/Sodium Chloride 60 ml @ 200 mls/hr AD PRN IV HYPOCALCEMIA 03/08/25 09:30 04/07/25 09:29 Cefazolin Sodium (Ancef) 2 gm ONCALL IVP 03/07/25 22:00 03/09/25 21:59 Cefazolin Sodium (Ancef) 2 gm Q8H IVPB 03/08/25 14:30 03/09/25 06:31 Citalopram Hydrobromide (CeleXA 20MG TAB) 10 mg DAILY PO 02/25/25 09:00 03/27/25 08:59 03/07/25 08:47 10 MG Dexmedetomidine/ Sodium Chloride (PRECEdex 400MCG/ 100ML-NS) 400 mcg PROTOCOL IV 03/08/25 09:30 03/09/25 09:29 Dextrose (D50w) 50 ml AD PRN IV HYPOGLYCEMIA PROTOCOL 03/01/25 12:30 03/31/25 12:29 Dextrose (D50w) 50 ml AD PRN IV HYPOGLYCEMIA PROTOCOL 03/08/25 09:30 04/07/25 09:29 Docusate Sodium (COLace 100MG CAP) 100 mg BID PO 03/03/25 21:00 03/03/25 16:22 DC Docusate Sodium (COLace 100MG CAP) 100 mg BID PO 03/08/25 21:00 04/07/25 20:59 Epinephrine HCl 10 mg/Sodium Chloride 250 ml @ 0 mls/hr AD PRN IV TITRATE 03/08/25 07:00 04/07/25 06:59 Epinephrine HCl 10 mg/Sodium Chloride 250 ml @ 0 mls/hr AD PRN IV POST-OP CARDIOVASCULAR ORDERS 03/08/25 09:30 03/08/25 09:30 DC Famotidine (Pepcid 20mg Vial) 20 mg BID IV 03/08/25 21:00 03/10/25 20:59 Famotidine (Pepcid 20mg Tab) 20 mg BID PO 02/24/25 09:00 03/26/25 08:59 03/07/25 20:29 20 MG Furosemide (LASix 20MG TAB) 20 mg Q12H PO 03/10/25 09:00 04/09/25 08:59 Furosemide (LASix 20MG VIAL) 20 mg Q12H IV 03/09/25 09:00 03/10/25 08:59 Glucagon (Glucagon 1mg Kit) 1 mg AD PRN IM HYPOGLYCEMIA PROTOCOL 03/01/25 12:30 03/31/25 12:29 Glucagon (Glucagon 1mg Kit) 1 mg AD PRN IM HYPOGLYCEMIA PROTOCOL 03/08/25 09:30 04/07/25 09:29 Heparin Sodium/ Dextrose 250 ml @ 0 mls/hr PROTOCOL PRN IV PROTOCOL 02/24/25 06:00 02/25/25 05:59 DC 02/25/25 01:09 7.36 MLS/HR Insulin Human Regular (humuLIN R 100 UNIT/ML 3ML) INSULIN SLIDING SCAL... ACHS SQ 02/24/25 11:30 03/08/25 09:15 DC 03/06/25 20:24 6 UNIT Insulin Human Regular 100 unit/ Sodium Chloride 100 ml @ 0 mls/hr AD IV 03/08/25 09:30 03/10/25 09:29 Isosorbide Mononitrate (Imdur 30mg Sr) 30 mg DAILY PO 02/24/25 09:00 03/06/25 11:46 DC 03/06/25 08:13 30 MG Isosorbide Mononitrate (Imdur 30mg Sr) 60 mg DAILY PO 03/07/25 09:00 03/08/25 09:15 DC 03/07/25 08:47 60 MG Ketorolac Tromethamine (ketOROlac troMETHamine) 15 mg Q6H PRN PO MODERATE PAIN (4-6) 03/03/25 18:00 03/03/25 16:22 DC Lactulose (Constulose 20gm/ 30ml Udcup) 20 gm BID PRN PO CONSTIPATION 03/08/25 09:30 04/07/25 09:29 Magnesium Hydroxide (Milk Of Magnesium 30ml) 30 ml DAILY PRN PO CONSTIPATION 03/08/25 09:30 04/07/25 09:29 Magnesium Sulfate 50 ml @ 12.5 mls/hr AD PRN IV MAG LEVEL LESS THAN 2.0 03/08/25 09:30 04/07/25 09:29 Magnesium Sulfate 50 ml @ 0 mls/hr PROTOCOL PRN IV low mag level 02/24/25 09:30 03/26/25 09:29 Metoprolol Succinate (TopROL XL) 12.5 mg DAILY PO 02/24/25 09:00 03/06/25 18:49 DC 03/03/25 08:36 12.5 MG Midodrine (PROAMatine 5 MG TABLET) 10 mg TID PO 03/03/25 14:00 03/08/25 09:15 DC 03/07/25 14:38 10 MG Morphine Sulfate (morPHINE 2MG SYG) 0.5 mg Q2H PRN IV MODERATE PAIN (4-6) 03/08/25 09:30 03/09/25 09:29 Morphine Sulfate (morPHINE 2MG SYG) 1 mg Q2H PRN IV SEVERE PAIN (7-10) 03/08/25 09:30 03/09/25 09:29 Nitroglycerin (Nitrostat) 0.4 mg Q5M PRN SL CHEST PAIN 02/24/25 06:00 03/06/25 08:51 DC 03/06/25 08:50 0.4 MG Nitroglycerin/ Dextrose 0 ml @ 0 mls/hr AD IV 03/08/25 09:30 03/11/25 09:29 Norepinephrine Bitartrate 250 ml @ 0 mls/hr AD PRN IV TITRATE 03/08/25 07:00 04/07/25 06:59 Norepinephrine Bitartrate 8 mg/ Dextrose 250 ml @ 0 mls/hr AD PRN IV POST-OP CARDIOVASCULAR ORDERS 03/08/25 09:30 03/08/25 09:30 DC Ondansetron HCl (zoFRAN 4MG INJ) 4 mg Q6H PRN IV NAUSEA/VOMITING 03/08/25 09:30 04/07/25 09:29 Potassium Phosphate 250 ml @ 42 mls/hr AD PRN IV LOW PHOS LEVEL 03/08/25 09:30 04/07/25 09:29 Potassium Chloride 100 ml @ 50 mls/hr AD PRN IV POTASSIUM PROTOCOL 02/24/25 09:30 03/08/25 09:15 DC Potassium Chloride 100 ml @ 100 mls/hr AD PRN IV POTASSIUM PROTOCOL 02/26/25 11:30 02/27/25 09:49 DC Potassium Chloride 100 ml @ 100 mls/hr AD PRN IV HYPOKALEMIA 03/08/25 09:30 04/07/25 09:29 Potassium Chloride (K-Dur/Klor-Con 20meq) 20 meq AD PRN PO POTASSIUM PROTOCOL 02/26/25 11:30 03/08/25 09:15 DC 03/07/25 05:23 20 MEQ Potassium Chloride (KCl 10% Elixir 20meq/15ml) 20 meq AD PRN PO POTASSIUM PROTOCOL 02/26/25 11:30 03/08/25 09:15 DC Prasugrel (Effient 10mg) 10 mg DAILY PO 02/25/25 09:00 03/01/25 12:54 DC 02/28/25 09:18 10 MG Propofol 100 ml @ 0 mls/hr AD PRN IV SEDATION 03/08/25 09:30 03/12/25 09:29 Sodium Bicarbonate (Sodium Bicarb 50meq 50ml Vial) 50 meq AD PRN IV OTHER[SEE DOSING INSTRUCTIONS] 03/08/25 09:30 03/11/25 09:29 Sodium Chloride 500 ml @ 0 mls/hr AD IV 03/08/25 09:30 04/07/25 09:29 Sodium Chloride 1,000 ml @ 10 mls/hr ONCE IV 03/08/25 09:30 03/09/25 09:29 Sodium Chloride 1,000 ml @ 150 mls/hr Q6H40M IV 03/01/25 12:30 03/01/25 16:29 DC 03/01/25 19:04 150 MLS/HR Sodium Chloride (NS Flush 10ml) 10 ml Q8H PRN IVP IV LINE FLUSH 03/08/25 09:30 04/07/25 09:29 Tramadol HCl (UltRAM) 50 mg Q6H PRN PO MODERATE PAIN (4-6) 03/08/25 09:30 03/13/25 09:29 Tramadol HCl (UltRAM) 100 mg Q6H PRN PO SEVERE PAIN (7-10) 03/08/25 09:30 03/13/25 09:29 DIAGNOSTICS / RADIOLOGY: [ ] Assessment: unstable angina Rule n ACS s/p Lexiscan Reversible large defect in the anterior, septal lucas. TID 1.19. LVEF 39%. s/p CABG 03/08/25 hypercoagulable state on Prasugrel POA functional decline: s/p BKA POA moderated protein calorie malnutrition with muscle atrophy ; BMI 19 POA History of Myocardial infarction 2023 Uncontrolled hypertension POA Hyperlipidemia Uncontrolled diabetes mellitus type 2 with hyperglycemia POA PLAN: Admit: Patient will be on telemetry condition: guarded Status: full code IVF:heplock Patient transferred to ICU prasugrel 10 mg po daily on hold for now , will continue Isosorbide ER 30 mg po daily, Atorvastatin 40 mg po HS. Continue midodrine 10 mg t.i.d. PRN for systolic blood pressure less than 100. nitroglycerin 0.4 mg subL, as directed for chest pain. s/p Lexiscan abnormal: Plan for PCI this afternoon Left heart catheterization performed 03/01/2025 abnormal S/p CABG 03/08/2025 A.m. labs Replace electrolytes as needed as per protocol to keep potassium above 4.0 magnesium 2.0. ac/hs monitoring with SSRI coverage Follow up with morning cortisol levels Supportive measures: DVT ppx, GI ppx all questions answered ATTESTATION BY PHYSICIAN I have seen and examined the patient. I reviewed the documentation, medical decision making, and treatment plan as noted by the mid-level provider above. I agree with the findings and plan of care. PATEL Estevez MD AQUATICS COORDINATOR Mar 08, 2025 12:57
--- NOTE | 2025-03-08 13:00 | NUR ---
CABG TODAY. Addendum: 03/08/25 at 1400 by AP MARTINEZ PT Amended: Links added.
[2025-03-08 13:13] LABS: ABG BASE EXCESS 2.3 mmol/L (-2.0-3.0); ABG HCO3 23.3 mmol/L (21.0-28.0); ABG OXYGEN SATURATION 98.6 % (94.0-98.0); ABG PCO2 23 mmHg (32-45); ABG PH 7.620 (7.350-7.450); CARBON MONOXIDE 0.2 % (0.5-1.5); PO2, ARTERIAL BG 283.6 mmHg (83.0-108.0); TEMPERATURE, CELSIUS BG 37.0 CELSIUS (35.5-37.0)
[2025-03-08 13:24] LABS: ABG BASE EXCESS -1.1 mmol/L (-2.0-3.0); ABG HCO3 21.3 mmol/L (21.0-28.0); ABG OXYGEN SATURATION 98.8 % (94.0-98.0); ABG PCO2 28 mmHg (32-45); ABG PH 7.507 (7.350-7.450); CARBON MONOXIDE 0.2 % (0.5-1.5); PO2, ARTERIAL BG 295.1 mmHg (83.0-108.0); TEMPERATURE, CELSIUS BG 37.0 CELSIUS (35.5-37.0)
[2025-03-08] MEDS ORDERED: SODIUM BICARB 50MEQ 50ML VIAL 50 ML ONE (13:33)
[2025-03-08 13:35] LABS: ABG BASE EXCESS -3.1 mmol/L (-2.0-3.0); ABG HCO3 19.4 mmol/L (21.0-28.0); ABG OXYGEN SATURATION 98.6 % (94.0-98.0); ABG PCO2 27 mmHg (32-45); ABG PH 7.478 (7.350-7.450); CARBON MONOXIDE 0.1 % (0.5-1.5); PO2, ARTERIAL BG 274.9 mmHg (83.0-108.0); TEMPERATURE, CELSIUS BG 37.0 CELSIUS (35.5-37.0)
[2025-03-08 14:12] LABS: ABG BASE EXCESS -6.6 mmol/L (-2.0-3.0); ABG HCO3 17.7 mmol/L (21.0-28.0); ABG OXYGEN SATURATION 96.1 % (94.0-98.0); ABG PCO2 31 mmHg (32-45); ABG PH 7.371 (7.350-7.450); CARBON MONOXIDE 0.3 % (0.5-1.5); PO2, ARTERIAL BG 88.6 mmHg (83.0-108.0); TEMPERATURE, CELSIUS BG 37.0 CELSIUS (35.5-37.0)
[2025-03-08 14:34] LABS: ABG BASE EXCESS -1.9 mmol/L (-2.0-3.0); ABG HCO3 21.8 mmol/L (21.0-28.0); ABG OXYGEN SATURATION 98.5 % (94.0-98.0); ABG PCO2 34 mmHg (32-45); ABG PH 7.430 (7.350-7.450); CARBON MONOXIDE 0.3 % (0.5-1.5); DEVICE COMMENT 9; PO2, ARTERIAL BG 166.5 mmHg (83.0-108.0); TEMPERATURE, CELSIUS BG 37.0 CELSIUS (35.5-37.0)
[2025-03-08] MEDS ORDERED: ALBUMIN (HUMAN) 5% 500 ML IV ONE (14:43)
--- NOTE | 2025-03-08 15:01 | HMCIMG ---
CHEST 1VW HISTORY: Preop CABG COMPARISON: 02/24/2025 FINDINGS: A frontal projection of the chest was obtained. No acute pulmonary infiltrates is seen. The heart is borderline enlarged. Degenerative changes are seen. No evidence of aortic calcification is seen. IMPRESSION: 1. No acute pulmonary infiltrate is seen.
[2025-03-08 15:23] LABS: ABG BASE EXCESS -1.2 mmol/L (-2.0-3.0); ABG HCO3 21.8 mmol/L (21.0-28.0); ABG OXYGEN SATURATION 91.6 % (94.0-98.0); ABG PCO2 31 mmHg (32-45); ABG PH 7.471 (7.350-7.450); CARBON MONOXIDE 0.3 % (0.5-1.5); PO2, ARTERIAL BG 61.4 mmHg (83.0-108.0); TEMPERATURE, CELSIUS BG 37.0 CELSIUS (35.5-37.0); VENT MODE, BG SIMV, PS10 (ROOM AIR)
[2025-03-08 15:38] LABS: NUCLEATED RED BLOOD CELLS 0.0 % (0.0-0.19); PLATELET COUNT (AUTO) 99.0 K/uL (130-400); RED BLOOD CELL COUNT(AUTO) 3.05 MIL/uL (4.00-5.50); RED CELL DISTRIBUTION WIDTH 14.7 % (11.0-15.5); WHITE BLOOD COUNT (AUTO) 8.9 K/uL (4.8-10.8)
[2025-03-08 15:48] LABS: CREATININE 1.0 mg/dL (0.5-1.0); GLOMERULAR FILTR. RATE CALC 64.0 mL/min (>90); GLUCOSE,RANDOM 168.0 mg/dL (70-105); PHOSPHORUS 1.2 mg/dL (2.5-4.9); UREA NITROGEN, BLOOD 11.0 mg/dL (7-18)
[2025-03-08 15:56] LABS: SODIUM SERUM 161.0 mmol/L (136-145)
--- NOTE | 2025-03-08 16:03 | HMCIMG ---
CHEST 1VW HISTORY: Post CABG COMPARISON: 03/08/2000 FINDINGS: A frontal projection of the chest was obtained. There are bilateral pulmonary infiltrates suggestive of pulmonary vascular congestion with possible superimposed pneumonitis. The heart is borderline enlarged. All the lines and tubes are again seen in place. No evidence of aortic calcification is seen. IMPRESSION: 1. Bilateral pulmonary infiltrates are seen suggestive of pulmonary vascular congestion with possible superimposed pneumonitis.
[2025-03-08 16:23] LABS: ABG BASE EXCESS -1.1 mmol/L (-2.0-3.0); ABG HCO3 22.9 mmol/L (21.0-28.0); ABG OXYGEN SATURATION 98.3 % (94.0-98.0); ABG PCO2 34 mmHg (32-45); ABG PH 7.442 (7.350-7.450); CARBON MONOXIDE 0.6 % (0.5-1.5); PO2, ARTERIAL BG 196.9 mmHg (83.0-108.0); TEMPERATURE, CELSIUS BG 37.0 CELSIUS (35.5-37.0); VENT MODE, BG SIMV, PS10 (ROOM AIR)
[2025-03-08] MEDS: SODIUM BICARB 50MEQ 50ML VIAL IV PRN (16:23)
--- NOTE | 2025-03-08 16:34 | CONS ---
[facility] CONSULTATION NOTE Date Patient Seen: Mar 08, 2025 Time of Visit: 16:34 Supervising Physician: [ ] Reason for Consultation: [ ] Primary Care Physician: [ ] Outpatient Specialists: [ ] Inpatient Consults: [ ] PROBLEM LIST: 1. [ ] 2. [ ] 3. [ ] 4. [ ] 5. [ ] HPI: [ ] PAST MEDICAL HX: see above PAST SURGICAL HX: noncontributory SOCIAL HISTORY: No tobacco, ETOH, or illicit drug use Coded Allergies: No Known Drug Allergies (Unverified Allergy, Unknown, 09/06/18) REVIEW OF SYSTEMS: 12 point ROS reviewed with patient. Pertinent positives mentioned above. Otherwise negative. PHYSICAL EXAM: GENERAL: alert, weak, awake oriented x 3 HEENT: EOMI, Sclera non icteric, moist mucosa NECK: Supple, no JVD, trachea midline LUNGS: Clear breath sounds bilaterally. No wheezes HEART: Regular rate and rhythm. Normal S1 and S2, without murmurs ABD: Abdomen soft, nontender. Bowel sounds present EXT: No clubbing cyanosis or edema NEURO: Alert and oriented to person, follows commands Vital Signs (last 8hr) Date Time Temp Pulse Resp B/P (MAP) Pulse Ox O2 Delivery O2 Flow Rate FiO2 03/08/25 15:30 99 12 03/08/25 15:13 99 100 LABS: Hematology Labs: Test 03/08/25 15:24 03/08/25 02:22 Range/Units White Blood Count 8.9 # 4.8-10.8 K/uL Red Blood Count 3.05 L 4.00-5.50 MIL/uL Hemoglobin 9.6 L 12.0-16.0 g/dL Hematocrit 27.9 L 36-48 % Mean Corpuscular Volume 91.5 79-99 fL Mean Corpuscular Hemoglobin 31.5 27.0-33.0 pg Mean Corpuscular Hemoglobin Concent 34.4 32.0-36.0 g/dL Red Cell Distribution Width 14.7 11.0-15.5 % Platelet Count 99 #L 130-400 K/uL Mean Platelet Volume 10.1 7.5-10.5 fL Nucleated Red Blood Cells 0.0 0.0-0.19 % Immature Granulocyte % (Auto) 0.2 0-1 % Neutrophils (%) (Auto) 39.3 L 40.0-77.0 % Lymphocytes (%) (Auto) 51.4 H 21.0-51.0 % Monocytes (%) (Auto) 6.5 3.0-13.0 % Eosinophils (%) (Auto) 2.1 0.0-8.0 % Basophils (%) (Auto) 0.5 0.0-5.0 % Neutrophils # (Auto) 2.6 1.8-7.7 K/uL Lymphocytes # (Auto) 3.4 1.0-4.8 K/uL Monocytes # (Auto) 0.4 0.1-1.0 K/uL Eosinophils # (Auto) 0.14 0.00-0.70 K/uL Basophils # (Auto) 0.03 0.00-0.20 K/uL Absolute Immature Granulocyte (auto 0.01 0-1 K/uL Chemistry Labs: Test 03/08/25 15:24 03/08/25 05:33 03/08/25 02:22 Range/Units Sodium Level 161 #*H 136-145 mmol/L Potassium Level 3.0 *L 3.5-5.1 mmol/L Chloride Level 121 *H 101-111 mmol/L Carbon Dioxide Level 23 21-32 mmol/L Blood Urea Nitrogen 11 7-18 mg/dL Creatinine 1.0 0.5-1.0 mg/dL Glomerular Filtration Rate Calc 64 >90 mL/min Random Glucose 168 H 70-105 mg/dL Total Calcium 11.0 H 8.5-10.1 mg/dL Phosphorus Level 1.2 L 2.5-4.9 mg/dL Magnesium Level 2.40 1.80-2.40 mg/dL Whole Blood Glucose 119 H 70-110 MG/DL Hemoglobin A1c 7.0 H 4.0-6.0 % Estimated Average Glucose (eAG) 154 H 70-126 mg/dL Total Bilirubin 0.4 0.2-1.0 mg/dL Aspartate Amino Transf (AST/SGOT) 17 10-37 U/L Alanine Aminotransferase (ALT/SGPT) 25 12-78 U/L Alkaline Phosphatase 67 50-136 U/L NJ-Obh-U-Type Natriuretic Peptide 914 H 0-125 pg/mL Total Protein 6.6 6.0-8.3 g/dL Albumin 3.5 3.5-5.0 g/dL Triglycerides Level 82 30-200 mg/dL Cholesterol Level 126 # <200 mg/dL LDL Cholesterol 58 0-99 mg/dL HDL Cholesterol 56 35-85 mg/dL Coagulation Labs: Test 03/08/25 02:22 Range/Units Prothrombin Time 10.9 9.6-11.6 SEC Prothromb Time International Ratio 1.03 0.85-1.15 Activated Partial Thromboplast Time 24.8 L 26.3-35.5 SEC DIAGNOSTICS / RADIOLOGY RESULTS: [ ] PLAN NEURO: Minimize central acting medications as possible. Fall Precautions. Well lighted room through the day and minimize interruptions through the night to prevent acute delirium. PULMONARY: Supplemental 02 as needed Titrate Fio2 to keep Spo2 > or = 90% DuoNebs and CPT as needed IS hourly while awake for pulmonary hygiene Out of bed to chair as tolerated VAP Bundle Vent/BIPAP Settings: [ ] Driving pressure: [ ] P Plat: [ ] Static C: [ ] Static R: [ ] P/F Ratio: [ ] CARDIOVASCULAR: Follow hemodynamics. Titrate vasopressor to keep MAP >65 or systolic blood pressure >95mmHg DIPS: [ ] LINES: [ ] GI & NUTRITION: Continue nutritional support Aspirations precautions Prokinetic agents and laxatives as needed KIDNEYS & ELECTROLYTES: Strict monitoring of intake and output Daily weights Avoid nephrotoxic agents Monitor electrolytes and replace as needed Goal urine output of 30mL/hr or 0.5mL/kg/hr Urine output: [ ] Fluid Balance: [ ] ENDOCRINE: Maintain blood glucose between 100-180 at all times. Insulin sliding scale for blood glucose management INFECTIOUS DISEASE: Trend temperature. Combs-culture if febrile. Micro: [ ] Antibiotics: [ ] HEMATOLOGY & COAGULATION: Monitor H&H. Keep Hgb > 7 Transfuse 1 unit of PRBC for Hgb < 7 Transfuse 1 pack of platelets of platelets < 20, 000 Watch for any signs and symptoms of bleeding SKIN: Pressure ulcer prevention per facility protocol Rehab: PT/OT Prophylaxis: GI: [ ] DVT: [ ] Code Status: Full Resuscitation Disposition: [ ] Other: Total patient care time exceeds 35 minutes excluding all procedures. Case was discussed and seen with my supervising physician. The above plan was formulated and agreed upon. CITLALI NAIR AGPCNP Mar 08, 2025 16:34
[2025-03-08] MEDS: ASPIRIN 81MG CHEW TAB NG ONE (16:44)
--- NOTE | 2025-03-08 16:55 | EKG ---
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 : 1965 Requested By: MAX PAYTON Order Number: [id number] Reading MD: August Jensen Measurements Intervals [facility] Rate: 102 P: 75 CA: 163 QRS: 93 QRSD: 95 T: 107 QT: 364 QTc: 475 Interpretive Statements Sinus tachycardia Probable lateral infarct, age indeterminate Probable anterior infarct, old Compared to ECG 03/08/2025 05:37:04 Myocardial infarct finding now present Sinus bradycardia no longer present Atrial premature complex(es) no longer present Aberrant conduction of supraventricular beat(s) no longer present ST (T wave) deviation no longer present Possible ischemia no longer present Electronically Signed On 03-08-2025 17:21:32 CDT by August Jensen Please click the below link to view image of tracing.
[2025-03-08] MEDS: [UNRECOGNIZED DRUG - MIXTURE] IV SCH (17:12)
[2025-03-08] MEDS: AMIODARONE 360MG/200ML BAG 200 ML IV ONE (17:18)
[2025-03-08 17:21] LABS: INR 2.35 (0.85-1.15)
--- NOTE | 2025-03-08 17:25 | CONS ---
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 (LVEF: 40-45% by echo done on 02/25/2025) Unstable Angina POA Remote anterior wall myocardial infarction July 2024 complicated by cardiogenic shock requiring Impella support for PCI with subsequent ischemic leg requiring [id number] amputation CAD status post stenting of the proximal LAD proximal circumflex and mid circumflex artery as above with documented progression of disease December 2024 managed medically because of concern the patient would not be compliant with dual antiplatelet therapy Diabetes mellitus type 2 Dyslipidemia Chest pain comorbidities: HX of ACS-STEMI s/p PCI with VIANEY placement (BSS 3.0x20 mm) in the proximal LAD, VIANEY placement (BSS 3.5x16 mm) in the proximal LCx, VIANEY placement (BSS 3.0x12 mm) in the mid LCx, and VIANEY placement (BSS 2.75x24 mm) in the distal LCx done on 07/17/2024 Hx of Intraprocedural VT in July 2024 HX of cardiogenic shock requiring Impella placement in July 2024 HX of Right lower extremity ischemia secondary to Impella placement resulting in RLE limb ischemia s/p right BKA Hx of Ischemic cardiomyopathy Hx of Medication noncompliance Hx of Hypertension ] HPI: [ This is a 59-year-old female with a history of nonischemic cardiomyopathy per NSTEMI and extensive coronary artery disease who presented to the ED on 02/24/25 with retrosternal chest pain. For cardiac history significant. Acute coronary syndrome event in July 2024 drip and we she underwent placement of three drug-eluting stents. Catheterization was complicated by cardiogenic shock recurrent Impella placement which lead to limb ischemia and right goabc-cwz-[id number] amputation. She was again admitted 04/2025. Non ST-elevation MA repeat left heart catheterization performed by tool salvage worker review of severe coronary artery disease. At that time given her noncompliance with medical felt like she was managed conservatively and discharged on aspirin, prasugrel, history mono nitrate, metoprolol atorvastatin. She was unable to follow up with her heart clinic due to financial constraints reports compliance with prescribed medications. On 02/24/25 awoke with substernal chest pain without associated dyspnea diaphoresis or periodic features. Awaited approximally [address] before she presented to the ED. ECG showed suspected old anteroseptal MA wit hout acute ST changes. Serial troponins were negative. Due to concerns from abnormal stress test the patient underwent left heart catheterization which revealed severe multivessel disease. Cardiothoracic surgery was consulted and the patient underwent CABG x5. With concurrent placement on 10 mm Hemashield aortic valve positioning of left ventricular 65 Impella 5:5. She underwent left atrial appendage exclusion with 45 mm clip in reduced fixation with plating. Records complicated intraoperatively by per severe hypotension which required Resuscitation with CPR she received blood. currently she is on Impella support PCI with vasopressor support on vasopressin, epinephrine and levophed as well as amiodarone and lidocaine gtts. Cardiac POCUS performed by Dr. Desir revealed minimal contractility consistent with cardiogenic shock. Patient remains critically ill under close ICU management. PAST MEDICAL HX: see above PAST SURGICAL HX: noncontributory SOCIAL HISTORY: No tobacco, ETOH, or illicit drug use Coded Allergies: No Known Drug Allergies (Unverified Allergy, Unknown, 09/06/18) REVIEW OF SYSTEMS: unable to perform PHYSICAL EXAM: GENERAL: critically ill intubated HEENT: Sclera non icteric, moist mucosa NECK: Supple, no JVD, trachea midline , impella 5.5 LUNGS: diminished breath sounds bilaterally. No wheezes HEART: Regular rate and rhythm. Normal S1 and S2, without murmurs, chest tube in place ABD: Abdomen soft, nontender. Bowel sounds present EXT: No clubbing cyanosis or edema rt BKA NEURO:not awake, post operative likely from sedation or encephalopathy Vital Signs (last 8hr) Date Time Temp Pulse Resp B/P (MAP) Pulse Ox O2 Delivery O2 Flow Rate FiO2 03/08/25 17:12 69/64 03/08/25 16:30 86 12 51/48 (49) 03/08/25 16:15 70 12 38/34 (35) 03/08/25 16:00 112 11 176/54 (94) 100 03/08/25 15:44 106 12 67/56 (60) 100 63/51 (55) 03/08/25 15:30 99 12 03/08/25 15:30 102 10 62/52 (55) 03/08/25 15:15 106 12 76/66 (69) 03/08/25 15:13 99 100 03/08/25 15:00 97.9 101 12 57/38 (44) 97 100 LABS: Hematology Labs: Test 03/08/25 15:24 03/08/25 02:22 Range/Units White Blood Count 8.9 # 4.8-10.8 K/uL Red Blood Count 3.05 L 4.00-5.50 MIL/uL Hemoglobin 9.6 L 12.0-16.0 g/dL Hematocrit 27.9 L 36-48 % Mean Corpuscular Volume 91.5 79-99 fL Mean Corpuscular Hemoglobin 31.5 27.0-33.0 pg Mean Corpuscular Hemoglobin Concent 34.4 32.0-36.0 g/dL Red Cell Distribution Width 14.7 11.0-15.5 % Platelet Count 99 #L 130-400 K/uL Mean Platelet Volume 10.1 7.5-10.5 fL Nucleated Red Blood Cells 0.0 0.0-0.19 % Immature Granulocyte % (Auto) 0.2 0-1 % Neutrophils (%) (Auto) 39.3 L 40.0-77.0 % Lymphocytes (%) (Auto) 51.4 H 21.0-51.0 % Monocytes (%) (Auto) 6.5 3.0-13.0 % Eosinophils (%) (Auto) 2.1 0.0-8.0 % Basophils (%) (Auto) 0.5 0.0-5.0 % Neutrophils # (Auto) 2.6 1.8-7.7 K/uL Lymphocytes # (Auto) 3.4 1.0-4.8 K/uL Monocytes # (Auto) 0.4 0.1-1.0 K/uL Eosinophils # (Auto) 0.14 0.00-0.70 K/uL Basophils # (Auto) 0.03 0.00-0.20 K/uL Absolute Immature Granulocyte (auto 0.01 0-1 K/uL Chemistry Labs: Test 03/08/25 15:24 03/08/25 05:33 03/08/25 02:22 03/07/25 08:41 Range/Units Sodium Level 161 #*H 136-145 mmol/L Potassium Level 3.0 *L 3.5-5.1 mmol/L Chloride Level 121 *H 101-111 mmol/L Carbon Dioxide Level 23 21-32 mmol/L Blood Urea Nitrogen 11 7-18 mg/dL Creatinine 1.0 0.5-1.0 mg/dL Glomerular Filtration Rate Calc 64 >90 mL/min Random Glucose 168 H 70-105 mg/dL Total Calcium 11.0 H 8.5-10.1 mg/dL Phosphorus Level 1.2 L 2.5-4.9 mg/dL Magnesium Level 2.40 1.80-2.40 mg/dL Whole Blood Glucose 119 H 70-110 MG/DL Hemoglobin A1c 7.0 H 4.0-6.0 % Estimated Average Glucose (eAG) 154 H 70-126 mg/dL Total Bilirubin 0.4 0.2-1.0 mg/dL Aspartate Amino Transf (AST/SGOT) 17 10-37 U/L Alanine Aminotransferase (ALT/SGPT) 25 12-78 U/L Alkaline Phosphatase 67 50-136 U/L FY-Bir-C-Type Natriuretic Peptide 914 H 0-125 pg/mL Total Protein 6.6 6.0-8.3 g/dL Albumin 3.5 3.5-5.0 g/dL Triglycerides Level 82 30-200 mg/dL Cholesterol Level 126 # <200 mg/dL LDL Cholesterol 58 0-99 mg/dL HDL Cholesterol 56 35-85 mg/dL Cortisol AM Sample 16.8 6.2-19.4 ug/dL Coagulation Labs: Test 03/08/25 02:22 Range/Units Prothrombin Time 10.9 9.6-11.6 SEC Prothromb Time International Ratio 1.03 0.85-1.15 Activated Partial Thromboplast Time 24.8 L 26.3-35.5 SEC DIAGNOSTICS / RADIOLOGY RESULTS: [place] [id number] [address] IMAGING REPORT Signed PATIENT: SHAHZAD PAGE MR#: [id number] : 1965 SEX: F AGE: 59 LOCATION: [facility] ORDER [id number] STATUS: ADM IN REPORT#: [id number] SERVICE 162 REASON: Reassess LV function ORDERING PHYSICIAN: CITLALI NANCE MD PROCEDURE: ECHO FU LD - ECHO 2-D F/U-LTD APPROVED REPORT EXAM: LIMITED Two-dimensional and M-mode echocardiogram. INDICATION Assess LV Function 2D Dimensions LVED Vol(simp.) 135.0 mL LVES Vol(simp.) 74.0 mL LVEF(%, simp.) 45 % Deformation Strain Apical 4 -14.4 % Apical 2 -13.7 % Apical 3 -14.8 % Global Strain -14.3 % Left Ventricle Left ventricular cavity size is normal. Anteroseptal, anterolateral lucas are hypokinetic. There is normal left ventricular wall thickness. LVEF is 40-45%. Unable to assess diastology due to atrial arrhythmia. Right Ventricle The right ventricular systolic function is normal. Aortic Valve Aortic valve opens well. Mitral Valve Mitral valve leaflets are mildly thickened. Mitral valve opens well. Pericardium No pericardial effusion. Other Information Quality : Excellent Rhythm : Atrial Fibrillation Conclusion Limited echocardiogram follow up study. LVEF is 40-45%. Anteroseptal, anterolateral lucas are hypokinetic. DICTATED BY: CEZAR MYRICK DO DATE: 02/25/25924 ELECTRONICALLY SIGNED BY: CEZAR MYRICK DO DATE: 02/25/25 1402 [ ] [address] [address] IMAGING REPORT Signed PATIENT: SHAHZAD PAGE MR#: [id number] : 1965 SEX: F AGE: 59 LOCATION: 2CV ORDER [id number] STATUS: ADM IN REPORT#: [id number] SERVICE 0600 REASON: preop CABG ORDERING PHYSICIAN: MAX PAYTON MD PROCEDURE: CXR1VW - CHEST 1VW CHEST 1VW HISTORY: Preop CABG COMPARISON: 02/24/2025 FINDINGS: A frontal projection of the chest was obtained. No acute pulmonary infiltrates is seen. The heart is borderline enlarged. Degenerative changes are seen. No evidence of aortic calcification is seen. IMPRESSION: 1. No acute pulmonary infiltrate is seen. DICTATED BY: ANGELA TORRES MD DATE: 03/08/25 1457 ELECTRONICALLY SIGNED BY: ANGELA TORRES MD DATE: 03/08/[address] surgeon recommendations Follow cardiology recommendations Multimodal pain management Monitoring H&H Monitor chest tube output Chest x-ray in the morning Start SBT's as tolerated Pending 2D echo post cabg POCUS US continue impella support per cardiology follow chest XR Monitor ABGs Transfuse if absolutely necessary to keep hemoglobin above 8 Maintain O2 sats greater than 92% Incentive spirometry once extubated Hemoglobin A1 Glycemic control with goal of 80-180 Referral for cardiac rehabilitation Speech to eval once patient is extubated monitor electrolytes: K Goal of 4 Magnesium goal of 2 Replace accordingly monitor hemodynamic and continue support with pressors NEURO: Minimize central acting medications as possible. Fall Precautions. Well lighted room through the day and minimize interruptions through the night to prevent acute delirium. PULMONARY: Supplemental 02 as needed Titrate Fio2 to keep Spo2 > or = 90% DuoNebs and CPT as needed IS hourly while awake for pulmonary hygiene Out of bed to chair as tolerated VAP Bundle Ventilator per CV protocol CARDIOVASCULAR: Follow hemodynamics. Titrate vasopressor to keep MAP >65 or systolic blood pressure >95mmHg DRIPS: levophed vasopressin epi LINES: cvc impella chest tube et tube og tube marlin manjarrez GI & NUTRITION: Continue nutritional support Aspirations precautions Prokinetic agents and laxatives as needed KIDNEYS & ELECTROLYTES: Strict monitoring of intake and output Daily weights Avoid nephrotoxic agents Monitor electrolytes and replace as needed Goal urine output of 30mL/hr or 0.5mL/kg/hr Urine output: [ ] Fluid Balance: [ ] ENDOCRINE: Maintain blood glucose between 100-180 at all times. Insulin sliding scale for blood glucose management INFECTIOUS DISEASE: Trend temperature. Combs-culture if febrile. Micro: [ ] MRSA negative Antibiotics: [ ] HEMATOLOGY & COAGULATION: Monitor H&H. Keep Hgb > 7 Transfuse 1 unit of PRBC for Hgb < 7 Transfuse 1 pack of platelets of platelets < 20, 000 Watch for any signs and symptoms of bleeding SKIN: Pressure ulcer prevention per facility protocol Rehab: PT/OT Prophylaxis: GI: pepcid DVT: [ tedhose ac per cv ] Code Status: Full Resuscitation Disposition: [ICU ] Other: Critical care time This patient required multiple bedside visits to manage the patient, review blood gases, coordinate with respiratory, nurses, review radiology exams, talk to the family members and discuss advanced directives. I personally spent 90 minutes reviewing of critical care time in treatment of this patient. This includes patient management, time at bedside, time reviewing tests, labs, appropriate images and studies, documentation, and patient care coordination. This time excludes separately billable procedures. ATTESTATION BY PHYSICIAN I reviewed the documentation, medical decision making, and treatment plan as noted by the mid-level provider above. I agree with the findings and plan of care. Hemal Desir MD, [facility] Mar 08, 2025 17:25
[2025-03-08 17:26] LABS: ABG BASE EXCESS -3.2 mmol/L (-2.0-3.0); ABG HCO3 20.4 mmol/L (21.0-28.0); ABG OXYGEN SATURATION 98.4 % (94.0-98.0); ABG PCO2 30 mmHg (32-45); ABG PH 7.449 (7.350-7.450); CARBON MONOXIDE 0.3 % (0.5-1.5); PO2, ARTERIAL BG 316.7 mmHg (83.0-108.0); TEMPERATURE, CELSIUS BG 37.0 CELSIUS (35.5-37.0); VENT MODE, BG SIMV, PS10 (ROOM AIR)
[2025-03-08] MEDS: ALBUMIN (HUMAN) 25% 50 ML IV SCH (17:40)
--- NOTE | 2025-03-08 17:40 | PN ---
[facility] CARDIOLOGY PROGRESS NOTE Date Patient Seen: Mar 08, 2025 Time of Visit: 17:33 Interval History: The patient underwent IVB CABG plus left atrial appendage clip, following the procedure patient became hypotensive, the patient was transferred again to the OR and found with a nonfunctional GOLDSTEIN, current grafts ( SVG-LAD, SVG-RCA, SVG- LT PLB , SVG -Diag ) an Impella was placed currently at P7, on three pressors support, blood pressure 69/64 mmHg, hemoglobin 6.2 g, receiving PRBC. Patient currently requiring mechanical ventilation Physical Examination: GENERAL: [No acute distress.] HEAD: [Normal with no signs of head trauma.] EYES: [PERRLA, EOMI, conjunctiva and sclera normal.] ENT: [Hearing grossly intact, normal oropharynx.] NECK: [Supple without JVD. There is no tenderness, lymphadenopathy, or masses. No thyromegaly. Normal carotid upstrokes without bruits.] LUNGS: [Clear breath sounds bilaterally. No wheezes, or rhonchi.] HEART: [Normal rate and rhythm. Normal S1 and S2 without murmurs, gallop or rub.] VASC: [Peripheral pulses +2 bilaterally.] ABD: [Bowel sounds normal, soft, nontender, no masses, no organomegaly. No audible bruits.] : [Not examined] LYMPH: [No lymphadenopathy noted.] EXT: [No clubbing, cyanosis or edema. Right BKA] SKIN: [No rashes or lesions noted.] NEURO: [Awake, alert, and oriented x3. No focal sensory or strength deficits noted.] Laboratory: [ ] Hematology Labs: Test 03/08/25 15:24 03/08/25 02:22 Range/Units White Blood Count 8.9 # 4.8-10.8 K/uL Red Blood Count 3.05 L 4.00-5.50 MIL/uL Hemoglobin 9.6 L 12.0-16.0 g/dL Hematocrit 27.9 L 36-48 % Mean Corpuscular Volume 91.5 79-99 fL Mean Corpuscular Hemoglobin 31.5 27.0-33.0 pg Mean Corpuscular Hemoglobin Concent 34.4 32.0-36.0 g/dL Red Cell Distribution Width 14.7 11.0-15.5 % Platelet Count 99 #L 130-400 K/uL Mean Platelet Volume 10.1 7.5-10.5 fL Nucleated Red Blood Cells 0.0 0.0-0.19 % Immature Granulocyte % (Auto) 0.2 0-1 % Neutrophils (%) (Auto) 39.3 L 40.0-77.0 % Lymphocytes (%) (Auto) 51.4 H 21.0-51.0 % Monocytes (%) (Auto) 6.5 3.0-13.0 % Eosinophils (%) (Auto) 2.1 0.0-8.0 % Basophils (%) (Auto) 0.5 0.0-5.0 % Neutrophils # (Auto) 2.6 1.8-7.7 K/uL Lymphocytes # (Auto) 3.4 1.0-4.8 K/uL Monocytes # (Auto) 0.4 0.1-1.0 K/uL Eosinophils # (Auto) 0.14 0.00-0.70 K/uL Basophils # (Auto) 0.03 0.00-0.20 K/uL Absolute Immature Granulocyte (auto 0.01 0-1 K/uL Chemistry Labs: Test 03/08/25 15:24 03/08/25 05:33 03/08/25 02:22 03/07/25 08:41 Range/Units Sodium Level 161 #*H 136-145 mmol/L Potassium Level 3.0 *L 3.5-5.1 mmol/L Chloride Level 121 *H 101-111 mmol/L Carbon Dioxide Level 23 21-32 mmol/L Blood Urea Nitrogen 11 7-18 mg/dL Creatinine 1.0 0.5-1.0 mg/dL Glomerular Filtration Rate Calc 64 >90 mL/min Random Glucose 168 H 70-105 mg/dL Total Calcium 11.0 H 8.5-10.1 mg/dL Phosphorus Level 1.2 L 2.5-4.9 mg/dL Magnesium Level 2.40 1.80-2.40 mg/dL Whole Blood Glucose 119 H 70-110 MG/DL Hemoglobin A1c 7.0 H 4.0-6.0 % Estimated Average Glucose (eAG) 154 H 70-126 mg/dL Total Bilirubin 0.4 0.2-1.0 mg/dL Aspartate Amino Transf (AST/SGOT) 17 10-37 U/L Alanine Aminotransferase (ALT/SGPT) 25 12-78 U/L Alkaline Phosphatase 67 50-136 U/L WL-Fne-K-Type Natriuretic Peptide 914 H 0-125 pg/mL Total Protein 6.6 6.0-8.3 g/dL Albumin 3.5 3.5-5.0 g/dL Triglycerides Level 82 30-200 mg/dL Cholesterol Level 126 # <200 mg/dL LDL Cholesterol 58 0-99 mg/dL HDL Cholesterol 56 35-85 mg/dL Cortisol AM Sample 16.8 6.2-19.4 ug/dL Coagulation Labs: Test 03/08/25 17:04 Range/Units Prothrombin Time 22.9 #H 9.6-11.6 SEC Prothromb Time International Ratio 2.35 H 0.85-1.15 Activated Partial Thromboplast Time 103.8 #*H 26.3-35.5 SEC Diagnostics / Radiology: [Copy/Paste Echos/Imaging Report here] Impression and Plan: 1. Unstable Angina 2. Remote anterior wall myocardial infarction July 2024 complicated by cardiogenic shock requiring Impella support for PCI with subsequent ischemic leg requiring bunqz-ksl-ktyt amputation 3. CAD status post stenting of the proximal LAD proximal circumflex and mid circumflex artery as above with documented progression of disease December 2024 managed medically because of concern the patient would not be compliant with dual antiplatelet therapy 4. Diabetes mellitus type 2 5. Dyslipidemia 6. Hypertension ] #CAD -S/P 4v CABG 03-08-25 The patient presented with chest pain ACS has been ruled out , troponin has been negative Currently denies any chest pain , palpitations, dyspnea or any other anginal equivalents. ASA 81 mg daily , Prasugrel 10 mg daily ,Atorvastatin 40 mg daily, Imdur 30 mg daily, and Toprol XL to 25 mg daily Given ACS was ruled out we will stop IV heparin 2D echocardiogram revealed a hypokinetic anteroseptal and anterolateral wall. LVEF 40-45% (unchanged from prior July 2024) Coronary angiogram on 03/01/2025 revealed severe two-vessel CAD CV surgery was consulted, underwent 4B CABG today Following the procedure patient became hypotensive, the patient was transferred again to the OR and found with a nonfunctional GOLDSTEIN Current grafts ( SVG-LAD, SVG-RCA, SVG-LT PLB , SVG -Diag ) Due to hypotension and cardiogenic shock an Impella was placed currently at P7 Currently on 3 pressor support requiring mechanical ventilation support . Thank you for this consult , cardiology will continue to follow along ,post operatively Jefry Carrasco MD ATTESTATION BY PHYSICIAN I have seen and examined the patient, reviewed the above documentation, participated in medical decision making, made necessary modifications, and agree with the treatment plan as documented by my mid-level provider above. MD JESSY Catalan JAMES R MD Mar 08, 2025 17:40
[2025-03-08] MEDS: 0.9%NACL 1000ML 1,000 ML IV SCH (17:54)
[2025-03-08 18:32] LABS: ABG BASE EXCESS -6.2 mmol/L (-2.0-3.0); ABG HCO3 18.4 mmol/L (21.0-28.0); ABG OXYGEN SATURATION 98.0 % (94.0-98.0); ABG PCO2 33 mmHg (32-45); ABG PH 7.362 (7.350-7.450); CARBON MONOXIDE 0.3 % (0.5-1.5); DEVICE COMMENT EDDIE EN ,AL; PO2, ARTERIAL BG 150.8 mmHg (83.0-108.0); TEMPERATURE, CELSIUS BG 37.0 CELSIUS (35.5-37.0); VENT MODE, BG SIMV PS 10 (ROOM AIR)
[2025-03-08] MEDS: ALBUMIN (HUMAN) 5% 250 ML IV PRN (18:48)
[2025-03-08 19:30] LABS: ABG BASE EXCESS -7.3 mmol/L (-2.0-3.0); ABG HCO3 17.6 mmol/L (21.0-28.0); ABG OXYGEN SATURATION 98.5 % (94.0-98.0); ABG PCO2 33 mmHg (32-45); ABG PH 7.345 (7.350-7.450); CARBON MONOXIDE 0.3 % (0.5-1.5); DEVICE COMMENT EDDIE RN ,AL; PO2, ARTERIAL BG 287.2 mmHg (83.0-108.0); TEMPERATURE, CELSIUS BG 37.0 CELSIUS (35.5-37.0); VENT MODE, BG SUMV PS 10 (ROOM AIR)
[2025-03-08] MEDS: ATROPINE 1MG SYG IVP ONE (19:47)
[2025-03-08] MEDS: ALBUMIN (HUMAN) 5% 500 ML IV SCH (20:14)
[2025-03-08] MEDS: CALCIUM GLUC 1GM 1 GM in 0.9%NACL 50ML 50 ML IV PRN (20:18)
[2025-03-08] MEDS: FAMOTIDINE 20MG VIAL IV SCH (20:32)
[2025-03-08 20:37] LABS: ABG BASE EXCESS 0.8 mmol/L (-2.0-3.0); ABG HCO3 24.5 mmol/L (21.0-28.0); ABG OXYGEN SATURATION 98.4 % (94.0-98.0); ABG PCO2 35 mmHg (32-45); ABG PH 7.460 (7.350-7.450); CARBON MONOXIDE 0.3 % (0.5-1.5); DEVICE COMMENT ALINE JESSERN; PO2, ARTERIAL BG 237.8 mmHg (83.0-108.0); TEMPERATURE, CELSIUS BG 37.0 CELSIUS (35.5-37.0); VENT MODE, BG SIMZ PS10 (ROOM AIR)
--- NOTE | 2025-03-08 21:00 | OP ---
DATE OF PROCEDURE: 03/08/2025 PREOPERATIVE DIAGNOSIS: Left main and three-system coronary artery disease with depressed ejection fraction. POSTOPERATIVE DIAGNOSIS: Left main and three-system coronary artery disease with depressed ejection fraction. PROCEDURES PERFORMED: * Pump-assisted coronary artery bypass grafting x 5 ( left internal mammary artery to the LAD, reverse saphenous vein graft from the aorta to the LAD, reverse saphenous vein graft from the aorta to the reverse diagonal artery, reverse saphenous vein graft from the aorta to the left posterolateral coronary artery, reverse saphenous vein graft from the aorta to the right coronary artery). * Placement of a 10-mm Hemashield aortic graft for the positioning of L5.5 Impella left ventricular assist device. * Left atrial exclusion with a 45-mm AtriCure clip. * Rigid internal fixation with adjacent sternal plating system. OPERATING SURGEON: Reggie Najera MD RISK MODELER: Bailey Robbins. ANESTHESIOLOGIST: Dr. Trujillo. TYPE OF ANESTHESIA: General endotracheal anesthesia. BRIEF HISTORY: The patient is a 59-year-old female with a 50% left main coronary artery stenosis as well as 3-system coronary artery disease. Her ejection fraction was roughly 40% and she was referred for surgical revascularization. FINDINGS: Under general endotracheal anesthesia, the patient's left ventricular ejection fraction appeared to be around 30%. We therefore elected to perform the coronary bypass grafting with pump assist leaving the heart warm and beating. The patient's left internal mammary artery was very small (internal diameter of 1 mm as well as the left anterior descending artery. The obtuse marginal coronary arteries were all small and not grafted to less than 1 mm). Left posterolateral artery was a good size vessel as well as the right coronary artery. The first diagonal coronary artery had a plaque just before its bifurcation. It bifurcated into less than 1 mm vessels. This plaque was then split anteriorly; however, long-term patency of this graft is questionable. The patient tolerated the procedure well and came off the cardiopulmonary bypass without difficulties. It should be mentioned that JOSIE did not show any clot within the left atrial appendage and therefore, this was excluded with an AtriCure clip. After the chest was closed, the patient was being ready to be undraped. She developed hypotension and I returned to the operating room and placed right femoral intraaortic balloon pump. This was not sufficient and the patient's blood pressure dropped extremely low and chest compressions had to be started. Blood pressure appeared to recover with chest compressions; however, we decided to reopen the chest. In order not to stop chest compressions, I decided to cannulate the patient for cardiopulmonary bypass from the left femoral artery femoral vein. Once the patient was on bypass, we were able to safely open the chest. The patient had several episodes of ventricular fibrillation and required amiodarone and lidocaine drip as well as electrical cardioversions. Once I opened the pericardium again, it became evident that the problem was the patient's left internal mammary to LAD anastomosis. I therefore took down this anastomosis, placed a shunt, and put a segment of reverse saphenous vein graft to the LAD. The left internal mammary artery was clipped. Because of the patient's arrest and cardiogenic shock, an L5.5 Impella left ventricular assist device was also placed via an aortic conduit. We were able to close the chest and take the patient to the ICU. DESCRIPTION OF PROCEDURE: The patient was brought to the operating room and placed on the operating table in supine position. She was given general endotracheal anesthesia. After placed lines and catheters, the chest, abdomen, and legs were prepped and draped in usual sterile fashion. Her left greater saphenous vein was harvested endoscopically and simultaneously median sternotomy was performed and left internal mammary artery was taken down. The patient was then given 300 units per kilo of IV heparin. Left internal mammary artery was clamped with bulldog proximally and divided distally. The pericardium was opened in the midline and the LAD was stabilized with an Acrobat epicardial retractor. A 5-0 Prolene snare was placed proximal to the target site, which was opened longitudinally. The distal end of left internal mammary artery was then anastomosed to the side of the LAD over a 1-mm shunt using a running 7-0 Prolene suture. Its pedicle was tacked to the epicardium with two 6-0 Prolene sutures. The bulldog clamp and shares were released and the LAD was reperfused in the remainder of the procedure. We then decided to cannulate for cardiomyopathy bypass. Double pledgeted Ethibond pursestrings were then placed in the ascending aorta for the aortic cannula and a 4-0 Prolene pursestring was placed in the right atrium for the venous cannula. The aorta was then cannulated with a metal-tipped arterial cannula, which was de-aired and connected to the arterial line of the cardiopulmonary bypass circuit. Next, two-stage venous cannula was placed with its tip in the IVC via the right atrial pursestring. This was connected to the venous limb of the cardiomyopathy bypass circuit. The patient was placed on full cardiopulmonary bypass. The patient's heart was left warm and beating and lungs ventilated. We then returned to performing the other coronary bypasses. Since the obtuse marginal coronary arteries were all less than 1 mm, only graftable vessel on the lateral wall was left posterolateral coronary artery. This received the distal end of a reverse saphenous vein graft. An end-to-side anastomosis was performed over a 1-mm shunt using a running 7-0 Prolene suture and this vein graft was draped along the right side of the heart and cut to appropriate length to reach the aorta. The next target was the first diagonal coronary artery. This received the distal end of the second segment of the reverse saphenous vein graft. An end-to-side anastomosis was performed over a 1 mm shunt using running 7-0 Prolene suture and this vein graft was draped under the left internal mammary artery and cut to appropriate length through each aorta. The final target was the right coronary artery. This received the distal end of a third segment of the reverse saphenous vein graft. An end-to-side anastomosis was performed over a 1-mm shunt using running 7-0 Prolene suture and this vein graft was also draped along the right side of the heart and cut to appropriate length to each aorta. A partial occlusion clamp was placed on the ascending aorta and three 4.0-mm aortotomy holes were made and the proximal end of the vein graft was anastomosed to the side of aorta using running 6-0 Prolene sutures. The vein graft was de-aired, partial occlusion clamp removed, and all three systems were revascularized. Since the left atrial appendage did not have any thrombus within it as investigated by intraoperative JOSIE, a 45-mm left atrial clip was placed at its base excluding left atrial appendage from the left atrium proper. The patient's mediastinum and left chest were then drained with 24-Mauritanian Edmundo drain, secured to the skin with silk sutures. The patient was then weaned from cardiopulmonary bypass, given protamine and decannulated. The pericardium was then loosely approximated to the heart and graft with several separate Ethibond sutures. The sternum was reapproximated with a combination of stainless sterile wires and the J-sternal plating system. The presternal fascia and subcutaneous tissues were closed with running layers of Vicryl suture. The skin was closed using running intracuticular Monocryl stitch. The wounds were cleaned, dried, covered with bandages and the patient's wounds were bandaged. Approximately 10 minutes later, the patient's blood pressure dropped and was refractory to epinephrine and Levophed. A right femoral intraaortic balloon pump was then placed and put on 1:1 support. This, however, did not help the patient's blood pressure and chest compressions had to be started. We then made a transverse incision in the left groin and left femoral artery and femoral vein were dissected out. A 5-0 Prolene pursestring were placed on the anterior wall and the left femoral artery was then cannulated using the Seldinger technique with a 17-Mauritanian arterial cannula, which was de-aired and connected to the arterial limb of the cardiomyopathy bypass circuit. We then placed a 23-Mauritanian venous cannula into the femoral vein and using JOSIE guidance positioned into the superior vena cava. This was connected to the venous limb of the cardiopulmonary bypass circuit. The patient was placed on full cardiopulmonary bypass, but was left warm and beating. We then opened up the patient's sternal incision, removed the KANE plates, and cut the sternal wires. A sternal retractor was placed. The pericardium was opened and tacked up to the retractor edges of silk sutures. It should be mentioned that the patient did go into ventricular fibrillation 2 or 3 times and required electrical cardioversion. I then saw that the vein grafts were all patent. However, the distal left internal mammary artery looked somewhat atretic. We had still a remaining segment of saphenous vein graft from the initial operation. Therefore, 5-0 Prolene snare was placed proximal to the anastomosis within left internal mammary artery and the LAD. This was snared and the anastomosis between the left internal mammary artery and the LAD was removed with 11-blade scalpel. The distal end of the left internal mammary artery was doubly clipped. The distal end of the reverse saphenous vein graft was then anastomosed inside of the LAD over a 1 mm shunt. This was done with a running 7-0 Prolene suture. This anastomosis was probed proximally and distally with a 1-mm dilator and a 1.5 mm dilator. The proximal end of the vein graft going to the LAD was then anastomosed to the ____ of the saphenous vein graft going to the first diagonal coronary artery and end-to-side anastomosis was performed with a running 6-0 Prolene suture. These 2 vein grafts were then de-aired. We then made a 4.0 mm aortotomy hole with a Heartstring device and the beveled end of a 10-mm Hemoshield graft was sewn to the side of the aorta using running 5-0 Prolene suture. A 2-cm incision was then made above the left clavicular head and the Hemashield graft was tunneled above the manubrium and out through this incision, taking care not to twist the graft. An L5.5 Impella was then positioned through the Hemashield graft down the aorta and across the aortic valve using JOSIE guidance. The patient was placed on full Impella support getting over 4 liters per minute of flow. The patient was then weaned off of cardiopulmonary bypass, given protamine, and the cannulas were removed from the femoral artery and femoral vein. The femoral artery and femoral vein pursestrings were then tied and the wound was irrigated with Betadine. It was then closed with three layers of running Vicryl suture. The skin was closed using a running intraarticular Monocryl stitch. We turned our attention back to the chest. The 24-Mauritanian Edmundo drains were positioned back in the left pleural space and the mediastinum. The pericardium was reapproximated over the heart and graft with several separate Ethibond sutures. The sternum was again reapproximated with combination of stainless steel wires and the KANE sternal plating systems. The presternal fascia and subcutaneous tissues were then closed with running layers of Vicryl suture. The skin was closed using running intracuticular Monocryl stitch. The wounds were cleaned and dried and covered with bandages. The intraaortic balloon pump was removed from the right femoral artery leaving the sheath in position. The patient was then taken to the ICU, intubated with the L5.5 Impella left ventricular assist device in critical condition. TID: [id number] RECEIPT: [id number] cc: SUNNI RENTERIA MD(User), Bailey Robbins
[2025-03-08 21:09] LABS: NUCLEATED RED BLOOD CELLS 0.0 % (0.0-0.19); PLATELET COUNT (AUTO) 31 K/uL (130-400); RED BLOOD CELL COUNT(AUTO) 2.38 MIL/uL (4.00-5.50); RED CELL DISTRIBUTION WIDTH 15.1 % (11.0-15.5); WHITE BLOOD COUNT (AUTO) 4.5 K/uL (4.8-10.8)
[2025-03-08 21:24] LABS: PLATELET MORPHOLOGY COMMENT MARKED DECREASE
[2025-03-08 21:45] LABS: ABG BASE EXCESS -1.6 mmol/L (-2.0-3.0); ABG HCO3 22.7 mmol/L (21.0-28.0); ABG OXYGEN SATURATION 98.1 % (94.0-98.0); ABG PCO2 36 mmHg (32-45); ABG PH 7.415 (7.350-7.450); CARBON MONOXIDE 0.3 % (0.5-1.5); DEVICE COMMENT AL,RN JESSIE; PO2, ARTERIAL BG 170.9 mmHg (83.0-108.0); TEMPERATURE, CELSIUS BG 37.0 CELSIUS (35.5-37.0); VENT MODE, BG SIMV VC PS10 (ROOM AIR)
[2025-03-08 22:50] LABS: ABG BASE EXCESS 0.3 mmol/L (-2.0-3.0); ABG HCO3 24.3 mmol/L (21.0-28.0); ABG OXYGEN SATURATION 97.1 % (94.0-98.0); ABG PCO2 37 mmHg (32-45); ABG PH 7.437 (7.350-7.450); CARBON MONOXIDE 0.3 % (0.5-1.5); DEVICE COMMENT AL, RN JESSE; PO2, ARTERIAL BG 104.1 mmHg (83.0-108.0); TEMPERATURE, CELSIUS BG 37.0 CELSIUS (35.5-37.0); VENT MODE, BG VC SIMV PS10 (ROOM AIR)
[2025-03-08] MEDS: NOREPINEPHRINE 16MG/NS 250ML 250 ML IV ONE (23:18)
[2025-03-08] MEDS: NOREPINEPHRINE 16MG/NS 250ML PREMIX IV SCH (23:28)
[2025-03-08 23:43] LABS: NUCLEATED RED BLOOD CELLS 0.0 % (0.0-0.19); PLATELET COUNT (AUTO) 91.0 K/uL (130-400); RED BLOOD CELL COUNT(AUTO) 3.0 MIL/uL (4.00-5.50); RED CELL DISTRIBUTION WIDTH 14.8 % (11.0-15.5); WHITE BLOOD COUNT (AUTO) 4.2 K/uL (4.8-10.8)
[2025-03-08 23:49] LABS: ABG BASE EXCESS -0.9 mmol/L (-2.0-3.0); ABG HCO3 22.7 mmol/L (21.0-28.0); ABG OXYGEN SATURATION 97.4 % (94.0-98.0); ABG PCO2 34 mmHg (32-45); ABG PH 7.447 (7.350-7.450); CARBON MONOXIDE 0.3 % (0.5-1.5); PO2, ARTERIAL BG 113.4 mmHg (83.0-108.0); TEMPERATURE, CELSIUS BG 37.0 CELSIUS (35.5-37.0); VENT MODE, BG SIMV PS 10 (ROOM AIR)
[2025-03-08 23:51] LABS: CREATININE 1.2 mg/dL (0.5-1.0); GLOMERULAR FILTR. RATE CALC 52.0 mL/min (>90); GLUCOSE,RANDOM 194.0 mg/dL (70-105); UREA NITROGEN, BLOOD 13.0 mg/dL (7-18)
[2025-03-08 23:54] LABS: INR 1.47 (0.85-1.15)
[2025-03-08 23:59] LABS: SODIUM SERUM 165.0 mmol/L (136-145)
[2025-03-09] VITALS (101 sets, daily range): BP systolic 70–200; BP diastolic 63–130; PULSE 100–126; RESP 6–20; TEMP 97.5–101; O2SAT 97–100
[2025-03-09] MEDS: ALBUMIN (HUMAN) 5% 250 ML IV SCH (00:29)
[2025-03-09 00:59] LABS: ABG BASE EXCESS 0.2 mmol/L (-2.0-3.0); ABG HCO3 23.8 mmol/L (21.0-28.0); ABG OXYGEN SATURATION 97.8 % (94.0-98.0); ABG PCO2 34 mmHg (32-45); ABG PH 7.461 (7.350-7.450); CARBON MONOXIDE 0.3 % (0.5-1.5); DEVICE COMMENT AL,RN JESSE; PO2, ARTERIAL BG 143.0 mmHg (83.0-108.0); TEMPERATURE, CELSIUS BG 37.0 CELSIUS (35.5-37.0); VENT MODE, BG VC SIMV PS10 (ROOM AIR)
[2025-03-09 02:05] LABS: ABG BASE EXCESS -0.9 mmol/L (-2.0-3.0); ABG HCO3 22.5 mmol/L (21.0-28.0); ABG OXYGEN SATURATION 98.0 % (94.0-98.0); ABG PCO2 32 mmHg (32-45); ABG PH 7.460 (7.350-7.450); CARBON MONOXIDE 0.3 % (0.5-1.5); DEVICE COMMENT JESSY RN,AL; PO2, ARTERIAL BG 161.8 mmHg (83.0-108.0); TEMPERATURE, CELSIUS BG 37.0 CELSIUS (35.5-37.0); VENT MODE, BG SIMV PS 10 (ROOM AIR)
[2025-03-09 03:11] LABS: ABG BASE EXCESS -0.5 mmol/L (-2.0-3.0); ABG HCO3 23.0 mmol/L (21.0-28.0); ABG OXYGEN SATURATION 98.1 % (94.0-98.0); ABG PCO2 33 mmHg (32-45); ABG PH 7.466 (7.350-7.450); CARBON MONOXIDE 0.3 % (0.5-1.5); DEVICE COMMENT RN JESSE, AL; PO2, ARTERIAL BG 169.8 mmHg (83.0-108.0); TEMPERATURE, CELSIUS BG 37.0 CELSIUS (35.5-37.0); VENT MODE, BG SIMV VC PS10 (ROOM AIR)
[2025-03-09 04:26] LABS: ABG BASE EXCESS 1.7 mmol/L (-2.0-3.0); ABG HCO3 25.0 mmol/L (21.0-28.0); ABG OXYGEN SATURATION 98.0 % (94.0-98.0); ABG PCO2 34 mmHg (32-45); ABG PH 7.481 (7.350-7.450); CARBON MONOXIDE 0.3 % (0.5-1.5); PO2, ARTERIAL BG 165.7 mmHg (83.0-108.0); TEMPERATURE, CELSIUS BG 37.0 CELSIUS (35.5-37.0); VENT MODE, BG SIMV PS 10 (ROOM AIR)
[2025-03-09 04:31] LABS: IMMATURE GRANULOCYTE ABSOLUTE 0.02 K/uL (0-1); NUCLEATED RED BLOOD CELLS 0.0 % (0.0-0.19); PLATELET COUNT (AUTO) 82 K/uL (130-400); RED BLOOD CELL COUNT(AUTO) 2.46 MIL/uL (4.00-5.50); RED CELL DISTRIBUTION WIDTH 14.8 % (11.0-15.5); WHITE BLOOD COUNT (AUTO) 3.7 K/uL (4.8-10.8)
[2025-03-09 05:13] LABS: ASPARTATE AMINOTRANSFERASE 254.0 U/L (10-37); CREATININE 1.2 mg/dL (0.5-1.0); GLOMERULAR FILTR. RATE CALC 52.0 mL/min (>90); GLUCOSE,RANDOM 184.0 mg/dL (70-105); PHOSPHORUS 2.4 mg/dL (2.5-4.9); TOTAL PROTEIN, SERUM 4.7 g/dL (6.0-8.3); UREA NITROGEN, BLOOD 14.0 mg/dL (7-18)
[2025-03-09 05:15] LABS: ABG BASE EXCESS 0.7 mmol/L (-2.0-3.0); ABG HCO3 24.1 mmol/L (21.0-28.0); ABG OXYGEN SATURATION 97.8 % (94.0-98.0); ABG PCO2 34 mmHg (32-45); ABG PH 7.469 (7.350-7.450); CARBON MONOXIDE 0.3 % (0.5-1.5); PO2, ARTERIAL BG 153.0 mmHg (83.0-108.0); TEMPERATURE, CELSIUS BG 37.0 CELSIUS (35.5-37.0); VENT MODE, BG SIMV PS 10 (ROOM AIR)
[2025-03-09 05:23] LABS: SODIUM SERUM 161.0 mmol/L (136-145)
[2025-03-09 06:23] LABS: ABG BASE EXCESS 1.0 mmol/L (-2.0-3.0); ABG HCO3 24.5 mmol/L (21.0-28.0); ABG OXYGEN SATURATION 97.8 % (94.0-98.0); ABG PCO2 35 mmHg (32-45); ABG PH 7.469 (7.350-7.450); CARBON MONOXIDE 0.3 % (0.5-1.5); DEVICE COMMENT A-LINE; PO2, ARTERIAL BG 147.0 mmHg (83.0-108.0); TEMPERATURE, CELSIUS BG 37.0 CELSIUS (35.5-37.0); VENT MODE, BG SIMV-VC PS10 (ROOM AIR)
[2025-03-09 07:22] LABS: ABG BASE EXCESS 2.2 mmol/L (-2.0-3.0); ABG HCO3 25.5 mmol/L (21.0-28.0); ABG OXYGEN SATURATION 97.8 % (94.0-98.0); ABG PCO2 35 mmHg (32-45); ABG PH 7.486 (7.350-7.450); CARBON MONOXIDE 0.3 % (0.5-1.5); PO2, ARTERIAL BG 130.6 mmHg (83.0-108.0); TEMPERATURE, CELSIUS BG 37.0 CELSIUS (35.5-37.0); VENT MODE, BG SIMV-VC PS10 (ROOM AIR)
[2025-03-09 07:23] LABS: DEVICE COMMENT A-LINE EDDY
--- NOTE | 2025-03-09 08:25 | PN ---
[facility] CARDIOLOGY PROGRESS NOTE Date Patient Seen: Mar 09, 2025 Time of Visit: 08:22 Interval History: Overnight the patietn requiring ongoing pressor support and is on Impella support at p5 , increased chest output ( 2 lts ) , she has received PRBC trans fusion , continue intubated and sedated. No telemetry events noted. Renal function stable at this time. Physical Examination: GENERAL: Intubated, sedated with generalized edema] EYES: [PERRLA, EOMI, conjunctiva and sclera normal.] NECK: [Supple without JVD. There is no tenderness, lymphadenopathy, or masses. No thyromegaly. Normal carotid upstrokes without bruits.] LUNGS: [Ventilated breath sounds bilaterally. With crackles over lower lobes. No wheezes, or rhonchi.] HEART: [Normal rate and rhythm. Normal S1 and S2 without murmurs, gallop or rub.] VASC: [Peripheral pulses palpable and thready over LLE.] ABD: [Bowel sounds normal, soft, nontender, no masses, no organomegaly. No audible bruits.] : [Not examined] LYMPH: [No lymphadenopathy noted.] EXT: [No clubbing, cyanosis or edema. Right BKA] SKIN: [No rashes or lesions noted.] NEURO: [Awake, alert, and oriented x0. Gag reflex and DTR intact.] Laboratory: [ ] Hematology Labs: Test 03/09/25 03:53 03/08/25 20:45 Range/Units White Blood Count 3.7 L 4.8-10.8 K/uL Red Blood Count 2.46 L 4.00-5.50 MIL/uL Hemoglobin 7.8 L 12.0-16.0 g/dL Hematocrit 21.7 L 36-48 % Mean Corpuscular Volume 88.2 79-99 fL Mean Corpuscular Hemoglobin 31.7 27.0-33.0 pg Mean Corpuscular Hemoglobin Concent 35.9 32.0-36.0 g/dL Red Cell Distribution Width 14.8 11.0-15.5 % Platelet Count 82 L 130-400 K/uL Mean Platelet Volume 10.0 7.5-10.5 fL Immature Granulocyte % (Auto) 0.5 0-1 % Neutrophils (%) (Auto) 67.0 40.0-77.0 % Lymphocytes (%) (Auto) 24.2 21.0-51.0 % Monocytes (%) (Auto) 8.3 3.0-13.0 % Eosinophils (%) (Auto) 0.0 0.0-8.0 % Basophils (%) (Auto) 0.0 0.0-5.0 % Neutrophils # (Auto) 2.5 1.8-7.7 K/uL Lymphocytes # (Auto) 0.9 L 1.0-4.8 K/uL Monocytes # (Auto) 0.3 0.1-1.0 K/uL Eosinophils # (Auto) 0.00 0.00-0.70 K/uL Basophils # (Auto) 0.00 0.00-0.20 K/uL Absolute Immature Granulocyte (auto 0.02 0-1 K/uL Nucleated Red Blood Cells 0.0 0.0-0.19 % Platelet Morphology Comment MARKED DECREASE Chemistry Labs: Test 03/09/25 03:53 03/08/25 05:33 03/08/25 02:22 03/07/25 08:41 Range/Units Sodium Level 161 *H 136-145 mmol/L Potassium Level 4.2 3.5-5.1 mmol/L Chloride Level 121 *H 101-111 mmol/L Carbon Dioxide Level 26 21-32 mmol/L Blood Urea Nitrogen 14 7-18 mg/dL Creatinine 1.2 H 0.5-1.0 mg/dL Glomerular Filtration Rate Calc 52 >90 mL/min Random Glucose 184 H 70-105 mg/dL Total Calcium 9.7 8.5-10.1 mg/dL Ionized Calcium 1.19 1.15-1.33 MMOL/L Phosphorus Level 2.4 L 2.5-4.9 mg/dL Magnesium Level 2.40 1.80-2.40 mg/dL Total Bilirubin 1.9 H 0.2-1.0 mg/dL Aspartate Amino Transf (AST/SGOT) 254 H 10-37 U/L Alanine Aminotransferase (ALT/SGPT) 38 12-78 U/L Alkaline Phosphatase 28 L 50-136 U/L Total Protein 4.7 L 6.0-8.3 g/dL Albumin 3.6 3.5-5.0 g/dL Whole Blood Glucose 119 H 70-110 MG/DL Hemoglobin A1c 7.0 H 4.0-6.0 % Estimated Average Glucose (eAG) 154 H 70-126 mg/dL ET-Pht-X-Type Natriuretic Peptide 914 H 0-125 pg/mL Triglycerides Level 82 30-200 mg/dL Cholesterol Level 126 # <200 mg/dL LDL Cholesterol 58 0-99 mg/dL HDL Cholesterol 56 35-85 mg/dL Cortisol AM Sample 16.8 6.2-19.4 ug/dL Coagulation Labs: Test 03/08/25 23:38 Range/Units Prothrombin Time 15.0 #H 9.6-11.6 SEC Prothromb Time International Ratio 1.47 H 0.85-1.15 Activated Partial Thromboplast Time 49.7 #H 26.3-35.5 SEC Fibrinogen 132 L 180-350 mg/dL Diagnostics / Radiology: [Copy/Paste Echos/Imaging Report here] Impression and Plan: 1. Unstable Angina s/p 4vCABG on 03/08/2025 2. Remote anterior wall myocardial infarction July 2024 complicated by cardiogenic shock requiring Impella support for PCI with subsequent ischemic leg requiring [id number] amputation 3. CAD status post stenting of the proximal LAD proximal circumflex and mid circumflex artery 4. Diabetes mellitus type 2 5. Dyslipidemia 6. Hypertension 7. Cardiogenic Shock 8. Anemia] # Severe 2v CAD: The patient presented with chest pain ACS has been ruled out. Lexiscan stress test revealed anterior ischemia 2D echocardiogram revealed a hypokinetic anteroseptal and anterolateral wall. LVEF 40-45% (unchanged from prior July 2024) Coronary angiogram on 03/01/2025 revealed severe two-vessel CAD. CV surgery was consulted and pt is s/p 4v CABG (03-08-25) Following the procedure patient became hypotensive while in the OR, and pt was found to have a nonfunctional GOLDSTEIN , Impella was inserted for MCS and SVG to LAD was placed Current grafts ( SVG-LAD , SVG -Diag, SVG-LPLB, and SVG-RCA) Cardiogenic shock requiring 3 pressors on Impella support at P5 Chest tubes with significant output of 2 liters. Transfuse PRBC to a HGb>7 CXR with b/l pulmonary edema. Recommend to start IV lasix gtt at 5mg/hr Strict I/Os and daily weights. Keep on telemetry and monitor/replace lytes as needed. Currently on 3 pressor support requiring mechanical ventilation support. Defer BB at this time Continue Asa 81mg qd and lipitor 40mg qhs. Rest of care by CV surgery # Cardiogenic shock: S/p 4vCABG complicated by a nonfucntional GOLDSTEIN s/p ( SVG-LAD , SVG -Diag, SVG-LPLB, and SVG-RCA) on 03/08/2025 S/p PRBC and cryo transfusion. Impella support at p5 Monitor H&H and access site. Wean of vasopressin and continue NE and Epi Keep on telemetry and monitor/replace lytes as needed. Start IV lasix at 5mg/hr with strict I/Os and daily weights. Goal net negative 1-2L/day TTE preop LVEF 40-45% with anteroseptal hypokiensis. Defer GDMT until off pressors AM CXR. Monitor for signs of hemolysis. Overall condition remains guarded. . Thank you for this consult , cardiology will continue to follow along ,post operatively Jefry Carrasco MD ATTESTATION BY PHYSICIAN I have seen and examined the patient, reviewed the above documentation, participated in medical decision making, made necessary modifications, and agree with the treatment plan as documented by my mid-level provider above. MD JESSY Catalan JAMES R MD Mar 09, 2025 08:25
[2025-03-09 08:26] LABS: ABG BASE EXCESS 3.0 mmol/L (-2.0-3.0); ABG HCO3 25.2 mmol/L (21.0-28.0); ABG OXYGEN SATURATION 97.9 % (94.0-98.0); ABG PCO2 30 mmHg (32-45); ABG PH 7.548 (7.350-7.450); CARBON MONOXIDE 0.3 % (0.5-1.5); DEVICE COMMENT A-LINE EDDY; PO2, ARTERIAL BG 132.3 mmHg (83.0-108.0); TEMPERATURE, CELSIUS BG 37.0 CELSIUS (35.5-37.0); VENT MODE, BG SIMV-VC PS10 (ROOM AIR)
[2025-03-09 09:11] LABS: INR 1.33 (0.85-1.15)
--- NOTE | 2025-03-09 09:21 | PN ---
[facility] PROGRESS NOTE Date of Service: Mar 09, 2025 Time of Service: 09:[address] Agustin SUBJECTIVE: [ ] admission date: 02/24/25 PCP: Agnieszka Shi DO chief complaint: Chest pain Primary behavioral therapy coordinator: Dr Jefry Osorio This is a 59-year-old female presents in ED with chief complaints of chest pain. Onset started this morning at 2:00 a.m. patient was awaken with ch est pain. Reports she has been having chest pain for a week. Location midsternal does not radiate,location midsternal stated the pain on arrival was 10/10 on pain scale. aggravated none: alleviating factors: none. Patient denies palpitation, dizziness, shortness for breath. 12 lead EKG on arrival showed heart rate [address] depression in the lateral Leads. As per ED physician changes in V5 and V6 were not seen in December 2024. Presence of LVH noted anterior STT wave changes were also. ER initiated heparin drip. Was given Full dose Aspirin and Morphine 2 mg IV x1. Troponin 1st set was negative. 02/25/25 patient was seen earlier patient reports she had chest pain overnight 3:00 a.m. patient was given nitroglycerin: continue on Heparin drip; Echo pending no chest pain at this time. she is fully alert oriented x3. 02/26/25 2D echocardiogram revealed a hypokinetic anteroseptal and anterolateral wall. LVEF 40-45%, the patient denies any cardiac symptoms or chest pain. Dr Osorio recommendations: lexiscan in am medical management for now ASA 81 mg daily , Prasugrel 10 mg daily ,Atorvastatin 40 mg daily, Imdur 30 mg daily changed Toprol XL to 25 mg daily patient is fully awake alert oriented x3. out of bed to chair with meals. Denied chest pain palpitation dyspnea. 02/27/25 patient is seen and examined patient underwent Lexiscan pending results. We will continue to monitor patient closely. She is asleep and waking per verbal stimuli primary nurse reports she was having GI problems post Lexiscan. 02/28/25 s/p Lexiscan Reversible large defect in the anterior, septal lucas. TID 1.19. LVEF 39%. Dr Osorio scheduled the patient for Left Heart cath tomorrow. The patient denies chest pain palpitation dyspnea. 03/01/25 patient was evaluated this continues without chest pain or palpitations patient had a Lexiscan stress test is PCI this after the. Patient NPO after breakfast. 03/02 patient was seen by nurse practitioner and physician during rounding in room 429. Patient is s/p left heart catheterization 03/01/[address] Jefry osorio and at this moment he is recommending cardiovascular surgeon for possible CABG evaluation. Once patient will be medically stable we will consult [facility] for evaluation. Continue one-to-one sitter for now. Continue to monitor patient in the meantime. A.m. labs 03/03 patient was seen by nurse practitioner physician during rounding. Patient was seen by cardiovascular surgeon and is pending CABG as per note at the end of this week. As per RN patient's blood pressure has been on lower side. We will order midodrine 10 mg p.r.n. t.i.d. for systolic less than 100. As per cardio logist Dr. Jefry osorio who was rounding okay with the above-stated medicine. We will continue to monitor patient in the meantime. A.m. labs. 03/04 patient was seen by nurse practitioner and physician during rounding. Patient was evaluated by the cardiovascular surgeon and he is came to perform CABG once the patient will be off Effient for 5 to 7 days. Last dose that was administered to the patient of Effient 10 mg was given on 03/01/2025 at 12:16 p.m. we will continue to monitor patient in the meantime. A.m. labs 03/05 patient was seen by nurse practitioner and physician during rounding in room 429. Patient is pending CABG once 5 to 7 days of Effient on hold we will be completed. WBC 7.3. Electrolyte replaced per protocol. Patient denies any shortness of breath, chest pain, nausea, vomiting or any other discomfort at this moment. We will continue to monitor patient in the meantime. A.m. labs 03/06/2025 - patient is seen in room 429, patient had an episode of intermittent chest pain on exertion when she went to the washroom. Chest pain relieved with sublingual nitro, troponin and EKG were ordered which were normal. Ordered beauty culture teacher cortisol, we will follow up with the lab. Patient to be scheduled for CABG. Heart rate currently on the lower side around 50s - 60s. Patient is asymptomatic otherwise, we will follow the patient closely. 03/07 patient was seen by nurse practitioner physician during rounding in room 429. Patient is pending CABG by cardiovascular surgeon possibly tomorrow 03/08/2025. During evaluation patient denies any shortness of breath, chest pain, nausea, vomiting or any other discomfort. Patient will receive a dose of potassium. We will continue to monitor patient in the meantime. A.m. labs 03/08 patient was seen by nurse practitioner and physician during rounding in room 213. Patient is s/p CABG. No family members at the bedside at this moment . We will continue to monitor patient in the meantime. A.m. labs 03/09 was seen by nurse practitioner and physician during rounding in room 213. Patient is s/p CABG day 1. Due to hypotension and cardiogenic shock Impella was placed. Chest tube output within 24 hours 2 L. currently patient is on three pressor support requiring mechanical ventilation support. Peak 55, peep eight 50% O2. Urine output 850 cc. No family members at the bedside. We will continue CV surgery recommendation We will continue to monitor patient in the meantime. A.m. labs REVIEW OF SYSTEMS: unable to perform PHYSICAL EXAM: GENERAL: critically ill intubated HEENT: Sclera non icteric, moist mucosa NECK: Supple, no JVD, trachea midline , impella 5.5 LUNGS: diminished breath sounds bilaterally. No wheezes HEART: Regular rate and rhythm. Normal S1 and S2, without murmurs, chest tube in place ABD: Abdomen soft, nontender. Bowel sounds present EXT: No clubbing cyanosis or edema rt BKA NEURO:not awake, post operative likely from sedation or encephalopathy Vital Signs (last 8hr) Date Time Temp Pulse Resp B/P (MAP) Pulse Ox O2 Delivery O2 Flow Rate FiO2 03/09/25 08:08 50 03/09/25 08:00 114 12 105/97 (100) 03/09/25 08:00 100 Ventilator+ 0 60 03/09/25 07:45 114 12 99/92 (94) 03/09/25 07:30 112 12 100/93 (95) 03/09/25 07:30 100.0 Ventilator 60 03/09/25 07:15 112 12 98/92 (94) 03/09/25 07:00 103 12 100/94 (96) 60 03/09/25 06:52 114 60 03/09/25 06:30 113 12 116/85 (95) 100 03/09/25 06:15 115 12 113/84 (94) 100 03/09/25 06:00 113 12 106/83 (91) 100 03/09/25 05:45 114 12 96/80 (85) 100 03/09/25 05:30 114 12 100/81 (87) 100 03/09/25 05:15 116 12 104/85 (91) 100 03/09/25 05:00 106 12 118/89 (99) 100 03/09/25 04:45 114 12 114/85 (95) 100 03/09/25 04:30 115 12 110/83 (92) 100 03/09/25 04:15 114 12 109/82 (91) 100 03/09/25 04:00 112 12 116/82 (93) 100 03/09/25 04:00 100 Ventilator+ 0 60 03/09/25 04:00 60 03/09/25 04:00 100.9 03/09/25 03:45 114 12 109/80 (90) 100 03/09/25 03:30 116 12 92/75 (81) 100 03/09/25 03:15 120 12 95/75 (82) 100 03/09/25 03:06 113 60 03/09/25 03:00 114 12 100/78 (85) 100 03/09/25 02:45 113 12 97/77 (84) 100 03/09/25 02:30 113 12 84/71 (75) 100 03/09/25 02:15 116 12 82/70 (74) 100 03/09/25 02:00 119 10 90/76 (81) 100 03/09/25 01:45 120 10 200/114 (142) 100 03/09/25 01:30 120 12 93/78 (83) 100 03/09/25 01:15 123 10 89/75 (80) 100 LABS: Laboratory: Test 03/09/25 08:24 03/09/25 03:53 03/08/25 23:38 03/08/25 20:45 Range/Units Blood Gas Specimen Type Arterial Arterial Blood pH 7.548 H 7.350-7.450 Arterial Blood Partial Pressure CO2 30 L 32-45 mmHg Arterial Blood Partial Pressure O2 132.3 H 83.0-108.0 mmHg Arterial Blood HCO3 25.2 21.0-28.0 mmol/L Arterial Blood Oxygen Saturation 97.9 94.0-98.0 % Arterial Blood Base Excess 3.0 -2.0-3.0 mmol/L Hemoglobin (Blood Gas) 9.0 L 12.0-16.0 g/dL Sodium (Blood Gas) 154 H 136-145 MMOL/L Bedside Potassium (Blood Gas) 4.2 3.4-4.5 MMOL/L Bedside Chloride (Blood Gas) 113 H 98-107 MMOL/L Bedside Glucose (Blood Gas) 156 H 65-95 MG/DL Bedside Ionized Calcium (Blood Gas) 1.24 1.15-1.33 MMOL/L Bedside Lactic Acid (Blood Gas) 8.45 *H 0.36-0.75 MMOL/L Blood Gas Temperature 37.0 35.5-37.0 CELSIUS Blood Gas Respiration Rate 12.0 min. Blood Gas Vent Mode SIMV-VC PS10 ROOM AIR FiO2 50.0 % Blood Gas Tidal Volume 550 ml Blood Gas PEEP 8 cm H2O Blood Gas Specimen Comment A-LINE WENDI White Blood Count 3.7 L 4.8-10.8 K/uL Red Blood Count 2.46 L 4.00-5.50 MIL/uL Hemoglobin 7.8 L 12.0-16.0 g/dL Hematocrit 21.7 L 36-48 % Mean Corpuscular Volume 88.2 79-99 fL Mean Corpuscular Hemoglobin 31.7 27.0-33.0 pg Mean Corpuscular Hemoglobin Concent 35.9 32.0-36.0 g/dL Red Cell Distribution Width 14.8 11.0-15.5 % Platelet Count 82 L 130-400 K/uL Mean Platelet Volume 10.0 7.5-10.5 fL Immature Granulocyte % (Auto) 0.5 0-1 % Neutrophils (%) (Auto) 67.0 40.0-77.0 % Lymphocytes (%) (Auto) 24.2 21.0-51.0 % Monocytes (%) (Auto) 8.3 3.0-13.0 % Eosinophils (%) (Auto) 0.0 0.0-8.0 % Basophils (%) (Auto) 0.0 0.0-5.0 % Neutrophils # (Auto) 2.5 1.8-7.7 K/uL Lymphocytes # (Auto) 0.9 L 1.0-4.8 K/uL Monocytes # (Auto) 0.3 0.1-1.0 K/uL Eosinophils # (Auto) 0.00 0.00-0.70 K/uL Basophils # (Auto) 0.00 0.00-0.20 K/uL Absolute Immature Granulocyte (auto 0.02 0-1 K/uL Nucleated Red Blood Cells 0.0 0.0-0.19 % Sodium Level 161 *H 136-145 mmol/L Potassium Level 4.2 3.5-5.1 mmol/L Chloride Level 121 *H 101-111 mmol/L Carbon Dioxide Level 26 21-32 mmol/L Blood Urea Nitrogen 14 7-18 mg/dL Creatinine 1.2 H 0.5-1.0 mg/dL Glomerular Filtration Rate Calc 52 >90 mL/min Random Glucose 184 H 70-105 mg/dL Total Calcium 9.7 8.5-10.1 mg/dL Ionized Calcium 1.19 1.15-1.33 MMOL/L Phosphorus Level 2.4 L 2.5-4.9 mg/dL Magnesium Level 2.40 1.80-2.40 mg/dL Total Bilirubin 1.9 H 0.2-1.0 mg/dL Aspartate Amino Transf (AST/SGOT) 254 H 10-37 U/L Alanine Aminotransferase (ALT/SGPT) 38 12-78 U/L Alkaline Phosphatase 28 L 50-136 U/L Total Protein 4.7 L 6.0-8.3 g/dL Albumin 3.6 3.5-5.0 g/dL Prothrombin Time 15.0 #H 9.6-11.6 SEC Prothromb Time International Ratio 1.47 H 0.85-1.15 Activated Partial Thromboplast Time 49.7 #H 26.3-35.5 SEC Fibrinogen 132 L 180-350 mg/dL Platelet Morphology Comment MARKED DECREASE Test 03/08/25 05:33 03/08/25 02:22 Range/Units Whole Blood Glucose 119 H 70-110 MG/DL Hemoglobin A1c 7.0 H 4.0-6.0 % Estimated Average Glucose (eAG) 154 H 70-126 mg/dL NH-Cxw-Q-Type Natriuretic Peptide 914 H 0-125 pg/mL Triglycerides Level 82 30-200 mg/dL Cholesterol Level 126 # <200 mg/dL LDL Cholesterol 58 0-99 mg/dL HDL Cholesterol 56 35-85 mg/dL Current Medications Medications (Trade) Dose Ordered Sig/Toby Route PRN Reason Start Time Stop Time Status Last Admin Dose Admin Acetaminophen (TYLenol 325MG TAB) 650 mg Q4H PRN PO TEMPERATURE GREATER THAN 101.5 02/24/25 07:00 03/26/25 06:59 03/01/25 19:06 650 MG Acetaminophen (TYLenol 325MG TAB) 650 mg Q4H PRN PO MILD PAIN (1-3) 03/02/25 02:30 04/01/25 02:29 03/04/25 10:39 650 MG Acetaminophen (TYLenol 325MG TAB) 650 mg Q4H PRN PO Temp >38.3C(AFTER EXTUBATION) 03/08/25 09:30 03/08/25 09:29 DC Acetaminophen (TYLenol 325MG TAB) 650 mg Q6H PRN PO MILD PAIN (1-3) 03/08/25 09:30 03/08/25 09:36 DC Acetaminophen (TYLenol 650MG SUPPOSITORY) 650 mg Q4H PRN RC Temp >38.3C WHILE INTUBATED 03/08/25 09:30 04/07/25 09:29 Acetaminophen (acetaMINOPHEN) 1,000 mg Q6H6 IV 03/08/25 13:00 03/09/25 12:59 03/09/25 05:37 1,000 MG Albumin Human 50 ml @ 999 mls/hr Q6H IV 03/08/25 17:00 03/09/25 11:02 03/09/25 04:40 999 MLS/HR Albumin Human 250 ml @ 0 mls/hr AD IV 03/08/25 19:00 03/13/25 18:59 03/09/25 08:36 1,200 MLS/HR Albumin Human 250 ml @ 0 mls/hr AD PRN IV IF HEMODYNAMICALLY UNSTABLE 03/08/25 09:30 03/08/25 18:48 DC 03/08/25 18:48 1,200 MLS/HR Albumin Human 500 ml @ 0 mls/hr AD IV 03/08/25 20:00 03/13/25 19:59 03/08/25 20:14 500 MLS/HR Aminocaproic Acid 63666 mg/Sodium Chloride 310 ml @ 25 mls/hr AD IV 03/08/25 09:30 03/08/25 09:31 DC Aminocaproic Acid 11784 mg/Sodium Chloride 480 ml @ 0 mls/hr AD PRN IV BLEEDING CONTROL 03/08/25 07:00 04/07/25 06:59 Amiodarone HCl 360 mg/Dextrose 207.2 ml @ 33.3 mls/hr AD IV 03/08/25 13:00 03/08/25 12:52 DC Amiodarone HCl 360 mg/Dextrose 207.2 ml @ 33.3 mls/hr AD IV 03/08/25 13:00 03/08/25 12:52 DC Amiodarone HCl 540 mg/Dextrose 310.8 ml @ 16.7 mls/hr [id number] STAT IV 03/08/25 12:45 03/08/25 20:15 DC 03/08/25 16:44 16.7 MLS/HR Aspirin (Aspirin 81mg Chew Tab) 81 mg DAILY PO 02/25/25 09:00 03/01/25 12:33 DC 02/28/25 09:18 81 MG Aspirin (Aspirin 81mg Chew Tab) 81 mg DAILY PO 03/02/25 09:00 04/01/25 08:59 03/07/25 08:48 81 MG Aspirin (Aspirin 81mg Ec Tab) 81 mg DAILY PO 02/24/25 09:00 02/24/25 08:52 DC Atorvastatin Calcium (LIPItor 20MG) 20 mg HS PO 02/24/25 21:00 02/24/25 08:52 DC Atorvastatin Calcium (LIPItor 40MG) 40 mg HS PO 02/24/25 21:00 03/26/25 20:59 03/08/25 20:32 40 MG Calcium Gluconate 1 gm/Sodium Chloride 60 ml @ 200 mls/hr AD PRN IV HYPOCALCEMIA 03/08/25 09:30 04/07/25 09:29 03/09/25 05:10 200 MLS/HR Cefazolin Sodium (Ancef) 2 gm ONCALL IVP 03/07/25 22:00 03/09/25 21:59 Cefazolin Sodium (Ancef) 2 gm Q8H IVPB 03/08/25 14:30 03/09/25 06:31 DC 03/09/25 06:06 2 GM Citalopram Hydrobromide (CeleXA 20MG TAB) 10 mg DAILY PO 02/25/25 09:00 03/27/25 08:59 03/07/25 08:47 10 MG Dexmedetomidine/ Sodium Chloride (PRECEdex 400MCG/ 100ML-NS) 400 mcg PROTOCOL IV 03/08/25 09:30 03/09/25 09:29 Dextrose (D50w) 50 ml AD PRN IV HYPOGLYCEMIA PROTOCOL 03/01/25 12:30 03/31/25 12:29 Dextrose (D50w) 50 ml AD PRN IV HYPOGLYCEMIA PROTOCOL 03/08/25 09:30 04/07/25 09:29 Docusate Sodium (COLace 100MG CAP) 100 mg BID PO 03/03/25 21:00 03/03/25 16:22 DC Docusate Sodium (COLace 100MG CAP) 100 mg BID PO 03/08/25 21:00 04/07/25 20:59 03/09/25 08:49 100 MG Epinephrine HCl 10 mg/Sodium Chloride 250 ml @ 0 mls/hr AD PRN IV TITRATE 03/08/25 07:00 04/07/25 06:59 Epinephrine HCl 10 mg/Sodium Chloride 250 ml @ 0 mls/hr AD PRN IV POST-OP CARDIOVASCULAR ORDERS 03/08/25 09:30 03/08/25 09:30 DC Famotidine (Pepcid 20mg Vial) 20 mg BID IV 03/08/25 21:00 03/10/25 20:59 03/09/25 08:50 20 MG Famotidine (Pepcid 20mg Tab) 20 mg BID PO 02/24/25 09:00 03/26/25 08:59 03/07/25 20:29 20 MG Furosemide (LASix 20MG TAB) 20 mg Q12H PO 03/10/25 09:00 04/09/25 08:59 Furosemide (LASix 20MG VIAL) 20 mg Q12H IV 03/09/25 09:00 03/10/25 08:59 Glucagon (Glucagon 1mg Kit) 1 mg AD PRN IM HYPOGLYCEMIA PROTOCOL 03/01/25 12:30 03/31/25 12:29 Glucagon (Glucagon 1mg Kit) 1 mg AD PRN IM HYPOGLYCEMIA PROTOCOL 03/08/25 09:30 04/07/25 09:29 Heparin Sodium/ Dextrose 250 ml @ 0 mls/hr PROTOCOL PRN IV PROTOCOL 02/24/25 06:00 02/25/25 05:59 DC 02/25/25 01:09 7.36 MLS/HR Insulin Human Regular (humuLIN R 100 UNIT/ML 3ML) INSULIN SLIDING SCAL... ACHS SQ 02/24/25 11:30 03/08/25 09:15 DC 03/06/25 20:24 6 UNIT Insulin Human Regular 100 unit/ Sodium Chloride 100 ml @ 0 mls/hr AD IV 03/08/25 09:30 03/10/25 09:29 Isosorbide Mononitrate (Imdur 30mg Sr) 30 mg DAILY PO 02/24/25 09:00 03/06/25 11:46 DC 03/06/25 08:13 30 MG Isosorbide Mononitrate (Imdur 30mg Sr) 60 mg DAILY PO 03/07/25 09:00 03/08/25 09:15 DC 03/07/25 08:47 60 MG Ketorolac Tromethamine (ketOROlac troMETHamine) 15 mg Q6H PRN PO MODERATE PAIN (4-6) 03/03/25 18:00 03/03/25 16:22 DC Lactulose (Constulose 20gm/ 30ml Udcup) 20 gm BID PRN PO CONSTIPATION 03/08/25 09:30 04/07/25 09:29 Magnesium Hydroxide (Milk Of Magnesium 30ml) 30 ml DAILY PRN PO CONSTIPATION 03/08/25 09:30 04/07/25 09:29 Magnesium Sulfate 50 ml @ 12.5 mls/hr AD PRN IV MAG LEVEL LESS THAN 2.0 03/08/25 09:30 04/07/25 09:29 Magnesium Sulfate 50 ml @ 0 mls/hr PROTOCOL PRN IV low mag level 02/24/25 09:30 03/26/25 09:29 Metoprolol Succinate (TopROL XL) 12.5 mg DAILY PO 02/24/25 09:00 03/06/25 18:49 DC 03/03/25 08:36 12.5 MG Midodrine (PROAMatine 5 MG TABLET) 10 mg TID PO 03/03/25 14:00 03/08/25 09:15 DC 03/07/25 14:38 10 MG Morphine Sulfate (morPHINE 2MG SYG) 0.5 mg Q2H PRN IV MODERATE PAIN (4-6) 03/08/25 09:30 03/09/25 09:29 Morphine Sulfate (morPHINE 2MG SYG) 1 mg Q2H PRN IV SEVERE PAIN (7-10) 03/08/25 09:30 03/09/25 09:29 Nitroglycerin (Nitrostat) 0.4 mg Q5M PRN SL CHEST PAIN 02/24/25 06:00 03/06/25 08:51 DC 03/06/25 08:50 0.4 MG Nitroglycerin/ Dextrose 0 ml @ 0 mls/hr AD IV 03/08/25 09:30 03/11/25 09:29 Norepinephrine Bitartrate 250 ml @ 0 mls/hr AD PRN IV TITRATE 03/08/25 07:00 03/08/25 23:13 DC Norepinephrine Bitartrate (Norepineph 16 Mg/250ml NS Premix) PER PROTOCOL PROTOCOL IV 03/08/25 23:30 04/07/25 23:29 03/08/25 23:28 16 MG Norepinephrine Bitartrate 8 mg/ Dextrose 250 ml @ 0 mls/hr AD PRN IV POST-OP CARDIOVASCULAR ORDERS 03/08/25 09:30 03/08/25 09:30 DC Ondansetron HCl (zoFRAN 4MG INJ) 4 mg Q6H PRN IV NAUSEA/VOMITING 03/08/25 09:30 04/07/25 09:29 Potassium Phosphate 250 ml @ 42 mls/hr AD PRN IV LOW PHOS LEVEL 03/08/25 09:30 04/07/25 09:29 03/09/25 08:23 42 MLS/HR Potassium Chloride 100 ml @ 50 mls/hr AD PRN IV POTASSIUM PROTOCOL 02/24/25 09:30 03/08/25 09:15 DC Potassium Chloride 100 ml @ 100 mls/hr AD PRN IV POTASSIUM PROTOCOL 02/26/25 11:30 02/27/25 09:49 DC Potassium Chloride 100 ml @ 100 mls/hr AD PRN IV HYPOKALEMIA 03/08/25 09:30 04/07/25 09:29 03/09/25 05:37 100 MLS/HR Potassium Chloride (K-Dur/Klor-Con 20meq) 20 meq AD PRN PO POTASSIUM PROTOCOL 02/26/25 11:30 03/08/25 09:15 DC 03/07/25 05:23 20 MEQ Potassium Chloride (KCl 10% Elixir 20meq/15ml) 20 meq AD PRN PO POTASSIUM PROTOCOL 02/26/25 11:30 03/08/25 09:15 DC Prasugrel (Effient 10mg) 10 mg DAILY PO 02/25/25 09:00 03/01/25 12:54 DC 02/28/25 09:18 10 MG Propofol 100 ml @ 0 mls/hr AD PRN IV SEDATION 03/08/25 09:30 03/12/25 09:29 Sodium Bicarbonate (Sodium Bicarb 50meq 50ml Vial) 50 meq AD PRN IV OTHER[SEE DOSING INSTRUCTIONS] 03/08/25 09:30 03/11/25 09:29 03/08/25 21:53 50 MEQ Sodium Chloride 500 ml @ 0 mls/hr AD IV 03/08/25 09:30 04/07/25 09:29 Sodium Chloride 1,000 ml @ 10 mls/hr ONCE IV 03/08/25 09:30 03/09/25 09:29 Sodium Chloride 1,000 ml @ 150 mls/hr Q6H40M IV 03/01/25 12:30 03/01/25 16:29 DC 03/01/25 19:04 150 MLS/HR Sodium Chloride (NS Flush 10ml) 10 ml Q8H PRN IVP IV LINE FLUSH 03/08/25 09:30 04/07/25 09:29 Tramadol HCl (UltRAM) 50 mg Q6H PRN PO MODERATE PAIN (4-6) 03/08/25 09:30 03/13/25 09:29 Tramadol HCl (UltRAM) 100 mg Q6H PRN PO SEVERE PAIN (7-10) 03/08/25 09:30 03/13/25 09:29 Vasopressin 40 units/Sodium Chloride 40 ml @ 0 mls/hr PROTOCOL IV 03/08/25 17:00 04/07/25 16:59 03/08/25 17:12 1.8 MLS/HR DIAGNOSTICS / RADIOLOGY: [ ] Assessment: Cardiogenic shock SCAI Stage D CAD -S/P 4v CABG 03-08-[address] Barajas 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 TID 1.19. LVEF 39%. CAD status post stenting of the proximal LAD proximal circumflex and mid circumflex artery as above with documented progression of disease December 2024 managed medically because of concern the patient would not be compliant with dual antiplatelet therapy Remote anterior wall myocardial infarction July 2024 complicated by cardiogenic shock requiring Impella support for PCI with subsequent ischemic leg requiring [id number] amputation hypercoagulable state on Prasugrel POA functional decline: s/p BKA POA moderated protein calorie malnutrition with muscle atrophy ; BMI 19 POA History of Myocardial infarction 2023 Uncontrolled hypertension POA Hyperlipidemia Uncontrolled diabetes mellitus type 2 with hyperglycemia POA PLAN: Admit: Patient will be on telemetry condition: guarded Status: full code LINES: cvc impella chest tube et tube og tube marlin manjarrez DRIPS: levophed vasopressin epi Patient transferred to ICU prasugrel 10 mg po daily on hold for now Heparin drip stopped Start SBT's as tolerated Pending 2D echo post cabg Continue midodrine 10 mg t.i.d. PRN for systolic blood pressure less than 100. nitroglycerin 0.4 mg subL, as directed for chest pain. s/p Lexiscan abnormal: Plan for PCI this afternoon Left heart catheterization performed 03/01/2025 abnormal S/p CABG 03/08/2025 A.m. labs Replace electrolytes as needed as per protocol to keep potassium above 4.0 magnesium 2.0. ac/hs monitoring with SSRI coverage Follow up with morning cortisol levels Supportive measures: DVT ppx, GI ppx all questions answered I personally spent over 35 minutes reviewing of critical care time in treatment of this patient. This includes patient management, time at bedside, time reviewing tests, labs, appropriate images and studies, documentation, and patient care coordination. This time excludes separately billable procedures. ATTESTATION BY PHYSICIAN I have seen and examined the patient. I reviewed the documentation, medical decision making, and treatment plan as noted by the mid-level provider above. I agree with the findings and plan of care. PATEL Estevez MD [facility] Mar 09, 2025 09:21
[2025-03-09 09:26] LABS: IMMATURE GRANULOCYTE ABSOLUTE 0.02 K/uL (0-1); NUCLEATED RED BLOOD CELLS 0.0 % (0.0-0.19); PLATELET COUNT (AUTO) 55 K/uL (130-400); RED BLOOD CELL COUNT(AUTO) 2.35 MIL/uL (4.00-5.50); RED CELL DISTRIBUTION WIDTH 15.1 % (11.0-15.5); WHITE BLOOD COUNT (AUTO) 5.3 K/uL (4.8-10.8)
--- NOTE | 2025-03-09 09:39 | NUR ---
Coagulation lab results obtained at this time due to machine down
[2025-03-09 09:41] LABS: ASPARTATE AMINOTRANSFERASE 280.0 U/L (10-37); CREATININE 1.1 mg/dL (0.5-1.0); GLOMERULAR FILTR. RATE CALC 57.0 mL/min (>90); GLUCOSE,RANDOM 154.0 mg/dL (70-105); SODIUM SERUM 159.0 mmol/L (136-145); TOTAL PROTEIN, SERUM 5.1 g/dL (6.0-8.3); UREA NITROGEN, BLOOD 14.0 mg/dL (7-18)
--- NOTE | 2025-03-09 10:27 | PN ---
[facility] PROGRESS NOTE Date Patient Seen: Mar 09, 2025 Time of Visit: 10:27 Supervising Physician: Dr. 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 (LVEF: 40-45% by echo done on 02/25/2025) Unstable Angina POA Remote anterior wall myocardial infarction July 2024 complicated by cardiogenic shock requiring Impella support for PCI with subsequent ischemic leg requiring qerbo-ejd-vrih amputation CAD status post stenting of the proximal LAD proximal circumflex and mid circumflex artery as above with documented progression of disease December 2024 managed medically because of concern the patient would not be compliant with dual antiplatelet therapy Diabetes mellitus type 2 Dyslipidemia Chest pain comorbidities: HX of ACS-STEMI s/p PCI with VIANEY placement (BSS 3.0x20 mm) in the proximal LAD, VIANEY placement (BSS 3.5x16 mm) in the proximal LCx, VIANEY placement (BSS 3.0x12 mm) in the mid LCx, and VIANEY placement (BSS 2.75x24 mm) in the distal LCx done on 07/17/2024 Hx of Intraprocedural VT in July 2024 HX of cardiogenic shock requiring Impella placement in July 2024 HX of Right lower extremity ischemia secondary to Impella placement resulting in RLE limb ischemia s/p right BKA Hx of Ischemic cardiomyopathy Hx of Medication noncompliance Hx of Hypertension ] INTERVAL HISTORY: 03/09/2025: At the time of my evaluation, the patient was lying in bed. She is off sedation RASS score of -2. Patient remains intubated and mechanically vented, SIMV rate of 12, peep 8, Vt 550 and FiO2 50%. Chest tube remains in place, per the staff nurse current output of2 L bloody. On the monitor, the patient was tachycardic, tachypneic and with acceptable blood pressure readings. 5/[address] P 9. Laboratory data was notable for a H&H 7.4/20.6 platelet count of 55. Chemistry panel showed a sodium of 159, potassium of 4.3, chloride of 120, CO2 of 30, BUN 14, creatinine of 1.1 And a GFR of 57. Total bili of 1.3, AST 280, ALT35 and a alk-phos of 23. Chest imaging today showed bilateral infiltrates more pronounced on the right. Currently, the patient is on epi/levo/vaso drip. No other concern. REVIEW OF SYSTEMS: unable to perform PHYSICAL EXAM: GENERAL: critically ill intubated HEENT: Sclera non icteric, moist mucosa NECK: Supple, no JVD, trachea midline , impella 5.5 LUNGS: diminished breath sounds bilaterally. No wheezes HEART: Regular rate and rhythm. Normal S1 and S2, without murmurs, chest tube in place ABD: Abdomen soft, nontender. Bowel sounds present EXT: No clubbing cyanosis or edema rt BKA NEURO: Deferred. Vital Signs (last 8hr) Date Time Temp Pulse Resp B/P (MAP) Pulse Ox O2 Delivery O2 Flow Rate FiO2 03/09/25 09:15 118 11 113/100 (104) 100 03/09/25 09:00 116 12 110/97 (101) 98 40 03/09/25 08:45 116 18 101/90 (94) 97 03/09/25 08:30 115 12 88/81 (83) 97 03/09/25 08:15 116 12 86/82 (83) 97 03/09/25 08:08 50 03/09/25 08:00 114 12 105/97 (100) 03/09/25 08:00 100 Ventilator+ 0 60 03/09/25 07:45 114 12 99/92 (94) 03/09/25 07:30 112 12 100/93 (95) 03/09/25 07:30 100.0 Ventilator 60 03/09/25 07:15 112 12 98/92 (94) 03/09/25 07:00 103 12 100/94 (96) 60 03/09/25 06:52 114 60 03/09/25 06:30 113 12 116/85 (95) 100 03/09/25 06:15 115 12 113/84 (94) 100 03/09/25 06:00 113 12 106/83 (91) 100 03/09/25 05:45 114 12 96/80 (85) 100 03/09/25 05:30 114 12 100/81 (87) 100 03/09/25 05:15 116 12 104/85 (91) 100 03/09/25 05:00 106 12 118/89 (99) 100 03/09/25 04:45 114 12 114/85 (95) 100 03/09/25 04:30 115 12 110/83 (92) 100 03/09/25 04:15 114 12 109/82 (91) 100 03/09/25 04:00 112 12 116/82 (93) 100 03/09/25 04:00 100 Ventilator+ 0 60 03/09/25 04:00 60 03/09/25 04:00 100.9 03/09/25 03:45 114 12 109/80 (90) 100 03/09/25 03:30 116 12 92/75 (81) 100 03/09/25 03:15 120 12 95/75 (82) 100 03/09/25 03:06 113 60 03/09/25 03:00 114 12 100/78 (85) 100 03/09/25 02:45 113 12 97/77 (84) 100 03/09/25 02:30 113 12 84/71 (75) 100 LABS: Hematology Labs: Test 03/09/25 09:17 03/08/25 20:45 Range/Units White Blood Count 5.3 # 4.8-10.8 K/uL Red Blood Count 2.35 L 4.00-5.50 MIL/uL Hemoglobin 7.4 L 12.0-16.0 g/dL Hematocrit 20.6 *L 36-48 % Mean Corpuscular Volume 87.7 79-99 fL Mean Corpuscular Hemoglobin 31.5 27.0-33.0 pg Mean Corpuscular Hemoglobin Concent 35.9 32.0-36.0 g/dL Red Cell Distribution Width 15.1 11.0-15.5 % Platelet Count 55 #L 130-400 K/uL Mean Platelet Volume 10.4 7.5-10.5 fL Immature Granulocyte % (Auto) 0.4 0-1 % Neutrophils (%) (Auto) 68.9 40.0-77.0 % Lymphocytes (%) (Auto) 24.5 21.0-51.0 % Monocytes (%) (Auto) 6.0 3.0-13.0 % Eosinophils (%) (Auto) 0.0 0.0-8.0 % Basophils (%) (Auto) 0.2 0.0-5.0 % Neutrophils # (Auto) 3.7 1.8-7.7 K/uL Lymphocytes # (Auto) 1.3 1.0-4.8 K/uL Monocytes # (Auto) 0.3 0.1-1.0 K/uL Eosinophils # (Auto) 0.00 0.00-0.70 K/uL Basophils # (Auto) 0.01 0.00-0.20 K/uL Absolute Immature Granulocyte (auto 0.02 0-1 K/uL Nucleated Red Blood Cells 0.0 0.0-0.19 % Platelet Morphology Comment MARKED DECREASE Chemistry Labs: Test 03/09/25 09:17 03/09/25 03:53 03/08/25 05:33 03/08/25 02:22 Range/Units Sodium Level 159 H 136-145 mmol/L Potassium Level 4.3 3.5-5.1 mmol/L Chloride Level 120 *H 101-111 mmol/L Carbon Dioxide Level 30 21-32 mmol/L Blood Urea Nitrogen 14 7-18 mg/dL Creatinine 1.1 H 0.5-1.0 mg/dL Glomerular Filtration Rate Calc 57 >90 mL/min Random Glucose 154 H 70-105 mg/dL Total Calcium 9.5 8.5-10.1 mg/dL Total Bilirubin 1.3 #H 0.2-1.0 mg/dL Aspartate Amino Transf (AST/SGOT) 280 H 10-37 U/L Alanine Aminotransferase (ALT/SGPT) 35 12-78 U/L Alkaline Phosphatase 23 L 50-136 U/L Total Protein 5.1 L 6.0-8.3 g/dL Albumin 4.1 3.5-5.0 g/dL Ionized Calcium 1.19 1.15-1.33 MMOL/L Phosphorus Level 2.4 L 2.5-4.9 mg/dL Magnesium Level 2.40 1.80-2.40 mg/dL Whole Blood Glucose 119 H 70-110 MG/DL Hemoglobin A1c 7.0 H 4.0-6.0 % Estimated Average Glucose (eAG) 154 H 70-126 mg/dL BW-Kto-R-Type Natriuretic Peptide 914 H 0-125 pg/mL Triglycerides Level 82 30-200 mg/dL Cholesterol Level 126 # <200 mg/dL LDL Cholesterol 58 0-99 mg/dL HDL Cholesterol 56 35-85 mg/dL Coagulation Labs: Test 03/09/25 03:53 Range/Units Prothrombin Time 13.7 H 9.6-11.6 SEC Prothromb Time International Ratio 1.33 H 0.85-1.15 Activated Partial Thromboplast Time 58.4 H 26.3-35.5 SEC Fibrinogen 239 180-350 mg/dL DIAGNOSTICS / RADIOLOGY RESULTS: [ ] PLAN Follow CT surgeon recommendations Follow cardiology recommendations Multimodal pain management Monitoring H&H Monitor chest tube output Chest x-ray in the morning Start SBT's as tolerated Pending 2D echo post cabg POCUS US continue impella support per cardiology follow chest XR Monitor ABGs Transfuse if absolutely necessary to keep hemoglobin above 8 Maintain O2 sats greater than 92% Incentive spirometry once extubated Hemoglobin A1 Glycemic control with goal of 80-180 Referral for cardiac rehabilitation Speech to eval once patient is extubated monitor electrolytes: K Goal of 4 Magnesium goal of 2 Replace accordingly monitor hemodynamic and continue support with pressors 03/09/2025: For now, going to continue current management for the patient. She will remain intubated and will be extubated per the CTS/CABG protocol. Patient will continue on cardiac management per the Cardiology team/CTVS. Because of her severe anemia, she was ordered to receive a unit of whole blood and 2 units of platelet which are pending to be infused. We will continue to monitor the H&H trend. Balloon pump remains in place as well as Cordis and chest tube mediastinal and pleural. We will repeat surveillance labs in morning. We will follow the recommendation of the CTS and we will intervene if necessary. We will continue to provide general supportive care, GI and DVT prophylaxis. Further orders per attending MD and hospital course. NEURO: Minimize central acting medications as possible. Fall Precautions. Well lighted room through the day and minimize interruptions through the night t o prevent acute delirium. PULMONARY: Supplemental 02 as needed Titrate Fio2 to keep Spo2 > or = 90% DuoNebs and CPT as needed IS hourly while awake for pulmonary hygiene Out of bed to chair as tolerated VAP Bundle Ventilator per CV protocol CARDIOVASCULAR: Follow hemodynamics. Titrate vasopressor to keep MAP >65 or systolic blood pressure >95mmHg DRIPS: levophed vasopressin epi LINES: cvc impella chest tube et tube og tube A-line manjarrez GI & NUTRITION: Continue nutritional support Aspirations precautions Prokinetic agents and laxatives as needed KIDNEYS & ELECTROLYTES: Strict monitoring of intake and output Daily weights Avoid nephrotoxic agents Monitor electrolytes and replace as needed Goal urine output of 30mL/hr or 0.5mL/kg/hr Urine output: [ ] Fluid Balance: [ ] ENDOCRINE: Maintain blood glucose between 100-180 at all times. Insulin sliding scale for blood glucose management INFECTIOUS DISEASE: Trend temperature. Combs-culture if febrile. Micro: [ ] MRSA negative Antibiotics: [ ] HEMATOLOGY & COAGULATION: Monitor H&H. Keep Hgb > 7 Transfuse 1 unit of PRBC for Hgb < 7 Transfuse 1 pack of platelets of platelets < 20, 000 Watch for any signs and symptoms of bleeding SKIN: Pressure ulcer prevention per facility protocol Rehab: PT/OT Prophylaxis: GI: pepcid DVT: [ tedhose ac per cv ] Code Status: Full Resuscitation Disposition: [ICU ] Other: I personally spent 52 minutes of critical care time in treatment of this patient. This includes patient management, time at bedside, time reviewing tests, labs, appropriate images and studies, documentation, and patient care coordination. This time excludes separately billable procedures. Patient was seen and case discussed with purnima POWERS. Plan of care was discussed and agreed upon. AYLEEN NAVA TELEVISION REPAIR TEACHER Mar 09, 2025 10:27
[2025-03-09 12:04] LABS: ABG BASE EXCESS 2.9 mmol/L (-2.0-3.0); ABG HCO3 27.6 mmol/L (21.0-28.0); ABG OXYGEN SATURATION 94.7 % (94.0-98.0); ABG PCO2 43 mmHg (32-45); ABG PH 7.427 (7.350-7.450); CARBON MONOXIDE 0.7 % (0.5-1.5); DEVICE COMMENT A-LINE EDDY; PO2, ARTERIAL BG 75.9 mmHg (83.0-108.0); TEMPERATURE, CELSIUS BG 37.0 CELSIUS (35.5-37.0); VENT MODE, BG SIMV-VC PS10 (ROOM AIR)
[2025-03-09 15:49] LABS: ABG BASE EXCESS 1.2 mmol/L (-2.0-3.0); ABG HCO3 26.6 mmol/L (21.0-28.0); ABG OXYGEN SATURATION 95.5 % (94.0-98.0); ABG PCO2 47 mmHg (32-45); ABG PH 7.375 (7.350-7.450); CARBON MONOXIDE 0.9 % (0.5-1.5); DEVICE COMMENT A-LINE EDDY; PO2, ARTERIAL BG 88.3 mmHg (83.0-108.0); TEMPERATURE, CELSIUS BG 37.0 CELSIUS (35.5-37.0); VENT MODE, BG SIMV-VC PS10 (ROOM AIR)
[2025-03-09 15:52] LABS: NUCLEATED RED BLOOD CELLS 0.0 % (0.0-0.19); PLATELET COUNT (AUTO) 143 K/uL (130-400); RED BLOOD CELL COUNT(AUTO) 1.85 MIL/uL (4.00-5.50); RED CELL DISTRIBUTION WIDTH 23.2 % (11.0-15.5); WHITE BLOOD COUNT (AUTO) 6.3 K/uL (4.8-10.8)
[2025-03-09 16:03] LABS: INR 1.36 (0.85-1.15)
[2025-03-09] MEDS: INSULIN REGULAR, HUMAN 3ML 100 UNIT in 0.9%NACL 100ML 99 ML IV SCH (16:20)
--- NOTE | 2025-03-09 16:45 | HMCIMG ---
CHEST 1VW HISTORY: Post CABG COMPARISON: 03/08/2025 FINDINGS: A frontal projection of the chest was obtained. There are bilateral pulmonary infiltrates suggestive of pulmonary vascular congestion with possible superimposed pneumonitis. Poststernotomy changes are seen. The heart is enlarged. Degenerative changes of the thoracolumbar spine are present. All the lines and tubes are again seen in place. No evidence of aortic calcification is seen. IMPRESSION: 1. Bilateral pulmonary infiltrates are seen suggestive of pulmonary vascular congestion with possible superimposed pneumonitis. Slight interval worsening is seen.
--- NOTE | 2025-03-09 17:38 | NUR ---
SPEECH TRIGGER COMPLETED / INTUBATION Pt IS A 59 Y.O. FEMALE ADMITTED SECONDARY TO UNSTABLE ANGINA. Pt HAS A PAST MEDICAL HISTORY SIGNIFICANT FOR HYPERTENSION, HYPERLIPIDEMIA, AND DM TYPE 2. Pt CURRENTLY INTUBATED AND NPO. PLEASE REQUEST SPEECH THERAPY SERVICES FOR SKILLED BEDSIDE SWALLOW EVALUATION 24 HOURS POST EXTUBATION IF ANY S/S OF ASPIRATION ARISE WITH ORAL INTAKE. 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 ALL QUESTIONS ANSWERED AT THIS TIME. Addendum: 03/10/[address] KAMRON NARANJO Amended: Links added.
[2025-03-09 18:14] LABS: ABG BASE EXCESS 0.5 mmol/L (-2.0-3.0); ABG HCO3 24.2 mmol/L (21.0-28.0); ABG OXYGEN SATURATION 99.0 % (94.0-98.0); ABG PCO2 36 mmHg (32-45); ABG PH 7.448 (7.350-7.450); CARBON MONOXIDE 0 % (0.5-1.5); DEVICE COMMENT A LINE; PO2, ARTERIAL BG 390.4 mmHg (83.0-108.0); TEMPERATURE, CELSIUS BG 37.0 CELSIUS (35.5-37.0); VENT MODE, BG PSIMV PS10 (ROOM AIR)
--- NOTE | 2025-03-09 20:36 | PN ---
SUBJECTIVE: The patient is status post coronary artery bypass grafting and placement of a ____ L5.5 Impella catheter. The patient required large amounts of volume through the night, but appears to be stabilizing hemodynamically. She also is alert and opens her eyes to command and moves her lower extremities, however, slightly to command. OBJECTIVE: VITAL SIGNS: Reveal temperature of 100.0, blood pressure 98/87, pulse is 112, respirations 20, oxygen saturation 96% on the mechanical ventilator. HEENT: Reveals normocephalic, atraumatic. Extraocular movements are intact. She has a right cervical Widener-Shantelle catheter reading and cardiac index of 2.1 L/min/m2. She has an oral endotracheal tube connected to mechanical ventilator. She has orogastric tube connected to low intermittent suction. CHEST: Sternal wound is bandaged. Her chest tubes were in place. She puts out a total of 2,700 mL of fluid since the time of surgery yesterday. LUNGS: Reveal rales and rhonchi bilaterally. GENITOURINARY: She has Whitfield catheter in her bladder. EXTREMITIES: She has ____ art line, she has a right kutfs-nja-rtnb amputation. She has an SCD on her left lower extremity. LABORATORY DATA: Her hemoglobin is 7.4, her white cell count is 5,300, platelets are 55,000. Creatinine 1.1. Her chest x-ray shows central pulmonary vascular congestion. She has an Impella catheter exiting her left medial supraclavicular region. She is slowing at setting a P9 giving her a cardiac output of 3.9 L/min. ASSESSMENT AND PLAN: * Status post coronary artery bypass grafting, requiring L5.5 Impella left ventricular assist device. Continue aspirin. Keep Impella at the highest flow possible and wean her pressors off maintaining a mean arterial pressure of 65 mmHg. Continue Lasix. * Postoperative acute pulmonary insufficiency. Continue support on mechanical ventilator while her pulmonary congestion resolves. * Hypercholesterolemia. Begin Lipitor 40 mg at bedtime. * DVT prophylaxis. Continue SCDs to lower extremities. Time spent, 30 minutes. The patient is critically ill in the ICU. TID: [id number] RECEIPT: [id number]
[2025-03-09 20:49] LABS: IMMATURE GRANULOCYTE ABSOLUTE 0.03 K/uL (0-1); NUCLEATED RED BLOOD CELLS 0.4 % (0.0-0.19); PLATELET COUNT (AUTO) 73 K/uL (130-400); RED BLOOD CELL COUNT(AUTO) 3.37 MIL/uL (4.00-5.50); RED CELL DISTRIBUTION WIDTH 17.4 % (11.0-15.5); WHITE BLOOD COUNT (AUTO) 7.1 K/uL (4.8-10.8)
[2025-03-09 20:59] LABS: CREATININE 1.3 mg/dL (0.5-1.0); GLOMERULAR FILTR. RATE CALC 47.0 mL/min (>90); GLUCOSE,RANDOM 109.0 mg/dL (70-105); SODIUM SERUM 152.0 mmol/L (136-145); UREA NITROGEN, BLOOD 16.0 mg/dL (7-18)
[2025-03-09 21:08] LABS: ABG BASE EXCESS -1.8 mmol/L (-2.0-3.0); ABG HCO3 22.7 mmol/L (21.0-28.0); ABG OXYGEN SATURATION 96.1 % (94.0-98.0); ABG PCO2 38 mmHg (32-45); ABG PH 7.399 (7.350-7.450); CARBON MONOXIDE 0 % (0.5-1.5); DEVICE COMMENT A LINE; PO2, ARTERIAL BG 89.8 mmHg (83.0-108.0); TEMPERATURE, CELSIUS BG 37.0 CELSIUS (35.5-37.0); VENT MODE, BG PSIMV PS10 (ROOM AIR)
[2025-03-09] MEDS: ALBUMIN (HUMAN) 5% 500 ML IV SCH (21:43)
[2025-03-09 23:06] LABS: ABG BASE EXCESS -7.5 mmol/L (-2.0-3.0); ABG HCO3 18.8 mmol/L (21.0-28.0); ABG OXYGEN SATURATION 93.6 % (94.0-98.0); ABG PCO2 41 mmHg (32-45); ABG PH 7.275 (7.350-7.450); CARBON MONOXIDE 0.2 % (0.5-1.5); DEVICE COMMENT A LINE; PO2, ARTERIAL BG 80.3 mmHg (83.0-108.0); TEMPERATURE, CELSIUS BG 37.0 CELSIUS (35.5-37.0); VENT MODE, BG PSIMV PS10 (ROOM AIR)
[2025-03-09 23:48] LABS: CREATININE 1.2 mg/dL (0.5-1.0); GLOMERULAR FILTR. RATE CALC 52.0 mL/min (>90); GLUCOSE,RANDOM 83.0 mg/dL (70-105); UREA NITROGEN, BLOOD 17.0 mg/dL (7-18)
[2025-03-09 23:51] LABS: SODIUM SERUM 161.0 mmol/L (136-145)
[2025-03-10] VITALS (101 sets, daily range): BP systolic 69–189; BP diastolic 62–104; PULSE 89–120; RESP 12–28; TEMP 97.3–103.2; O2SAT 94–100
[2025-03-10 00:13] LABS: ABG BASE EXCESS -5.1 mmol/L (-2.0-3.0); ABG HCO3 20.7 mmol/L (21.0-28.0); ABG OXYGEN SATURATION 97.7 % (94.0-98.0); ABG PCO2 42 mmHg (32-45); ABG PH 7.314 (7.350-7.450); CARBON MONOXIDE 0.8 % (0.5-1.5); DEVICE COMMENT A LINE; PO2, ARTERIAL BG 141.9 mmHg (83.0-108.0); TEMPERATURE, CELSIUS BG 37.0 CELSIUS (35.5-37.0); VENT MODE, BG PSIMV PS10 (ROOM AIR)
[2025-03-10 00:20] LABS: NUCLEATED RED BLOOD CELLS 1.0 % (0.0-0.19); PLATELET COUNT (AUTO) 56.0 K/uL (130-400); RED BLOOD CELL COUNT(AUTO) 2.26 MIL/uL (4.00-5.50); RED CELL DISTRIBUTION WIDTH 18.0 % (11.0-15.5); WHITE BLOOD COUNT (AUTO) 5.9 K/uL (4.8-10.8)
[2025-03-10 00:21] LABS: INR 2.08 (0.85-1.15)
[2025-03-10] MEDS: DEXTROSE 50%-WATER 50 ML DISP.SYRIN IV PRN (00:44)
[2025-03-10] MEDS: PHYTONADIONE 10 MG in 0.9%NACL 50ML 50 ML IVPB SCH (01:48)
[2025-03-10 02:06] LABS: ABG BASE EXCESS -9.4 mmol/L (-2.0-3.0); ABG HCO3 18.6 mmol/L (21.0-28.0); ABG OXYGEN SATURATION 89.0 % (94.0-98.0); ABG PCO2 50 mmHg (32-45); ABG PH 7.192 (7.350-7.450); CARBON MONOXIDE 0.4 % (0.5-1.5); DEVICE COMMENT A LINE; PO2, ARTERIAL BG 66.8 mmHg (83.0-108.0); TEMPERATURE, CELSIUS BG 37.0 CELSIUS (35.5-37.0); VENT MODE, BG PSIMV PS10 (ROOM AIR)
[2025-03-10 03:21] LABS: ABG BASE EXCESS -5.0 mmol/L (-2.0-3.0); ABG HCO3 21.4 mmol/L (21.0-28.0); ABG OXYGEN SATURATION 94.3 % (94.0-98.0); ABG PCO2 46 mmHg (32-45); ABG PH 7.291 (7.350-7.450); CARBON MONOXIDE 0.5 % (0.5-1.5); DEVICE COMMENT A LINE; PO2, ARTERIAL BG 81.8 mmHg (83.0-108.0); TEMPERATURE, CELSIUS BG 37.0 CELSIUS (35.5-37.0); VENT MODE, BG PSIMV PS10 (ROOM AIR)
[2025-03-10 04:39] LABS: ABG BASE EXCESS -5.3 mmol/L (-2.0-3.0); ABG HCO3 21.2 mmol/L (21.0-28.0); ABG OXYGEN SATURATION 96.6 % (94.0-98.0); ABG PCO2 45 mmHg (32-45); ABG PH 7.289 (7.350-7.450); CARBON MONOXIDE 0.7 % (0.5-1.5); DEVICE COMMENT A LINE; PO2, ARTERIAL BG 100.4 mmHg (83.0-108.0); TEMPERATURE, CELSIUS BG 37.0 CELSIUS (35.5-37.0); VENT MODE, BG PSIMV PS10 (ROOM AIR)
[2025-03-10 04:58] LABS: IMMATURE GRANULOCYTE ABSOLUTE 0.10 K/uL (0-1); NUCLEATED RED BLOOD CELLS 1.3 % (0.0-0.19); PLATELET COUNT (AUTO) 102 K/uL (130-400); RED BLOOD CELL COUNT(AUTO) 3.74 MIL/uL (4.00-5.50); RED CELL DISTRIBUTION WIDTH 17.1 % (11.0-15.5); WHITE BLOOD COUNT (AUTO) 5.5 K/uL (4.8-10.8)
[2025-03-10 05:09] LABS: INR 2.01 (0.85-1.15)
[2025-03-10 05:37] LABS: ABG BASE EXCESS -4.1 mmol/L (-2.0-3.0); ABG HCO3 21.9 mmol/L (21.0-28.0); ABG OXYGEN SATURATION 96.7 % (94.0-98.0); ABG PCO2 44 mmHg (32-45); ABG PH 7.320 (7.350-7.450); CARBON MONOXIDE 0.5 % (0.5-1.5); DEVICE COMMENT A LINE; PO2, ARTERIAL BG 106.4 mmHg (83.0-108.0); TEMPERATURE, CELSIUS BG 37.0 CELSIUS (35.5-37.0); VENT MODE, BG PSIMV PS10 (ROOM AIR)
[2025-03-10 05:38] LABS: CREATININE 1.4 mg/dL (0.5-1.0); GLOMERULAR FILTR. RATE CALC 43.0 mL/min (>90); GLUCOSE,RANDOM 125.0 mg/dL (70-105); SODIUM SERUM 158.0 mmol/L (136-145); TOTAL PROTEIN, SERUM 5.7 g/dL (6.0-8.3); UREA NITROGEN, BLOOD 20.0 mg/dL (7-18)
[2025-03-10 05:51] LABS: ASPARTATE AMINOTRANSFERASE 1548.0 U/L (10-37)
--- NOTE | 2025-03-10 07:51 | NUR ---
NURSING NOTE DR. PAYTON AND DR. Chyna JIMÉNEZ ROUND ON PATIENT. AWARE OF DISCOLORATION TO RIGHT AMPUTATION SITE. GIVE 2 CRYO AND D/C SHEATH ONCE INR BELOW 1.5 CHANGE P LEVEL ON IMPELLA TO P5 CONTINUE TO MONITOR HEMATURIA. TITRATE DOWN PRESSORS AND BEGIN LASIX DRIP. GIVE LOKELMA FOR K LEVEL. CARE ONGOING.
--- NOTE | 2025-03-10 07:56 | NUR ---
NURSING NOTE DR. PAYTON INSTRUCTED TO NOT COVER BASE EXCESS UNLESS PH LOWER THAN 7.3 DUE TO HIGH SODIUM.
[2025-03-10] MEDS: NA ZIRCON CYCLOSIL(LOKELMA 10GM) PO ONE ×2 (08:15→12:53)
--- NOTE | 2025-03-10 08:35 | PN ---
[facility] PROGRESS NOTE Date Patient Seen: Mar 10, 2025 Time of Visit: 08:32 Interval History: No acute events overnight , continues sedated on mechanical ventilation, generalized edema , her Hb stable at 11 gr , her renal function is stable, urine output overnight 300 ml, weaned down Impella to p 5 . She has generalized edema. Physical Examination: GENERAL: Intubated, sedated with generalized edema] EYES: [PERRLA, EOMI, conjunctiva and sclera normal.] NECK: [Supple without JVD. There is no tenderness, lymphadenopathy, or masses. No thyromegaly. Normal carotid upstrokes without bruits.] LUNGS: [Ventilated breath sounds bilaterally. With crackles over lower lobes. No wheezes, or rhonchi.] HEART: [Normal rate and rhythm. Normal S1 and S2 without murmurs, gallop or rub.] VASC: [Peripheral pulses palpable and thready over LLE.] ABD: [Bowel sounds normal, soft, nontender, no masses, no organomegaly. No audible bruits.] : [Not examined] LYMPH: [No lymphadenopathy noted.] EXT: [No clubbing, cyanosis or edema. Right BKA] SKIN: [No rashes or lesions noted.] NEURO: [Awake, alert, and oriented x0. Gag reflex and DTR intact.] Laboratory: [ ] Hematology Labs: Test 03/10/25 04:30 03/09/25 15:43 03/08/25 20:45 Range/Units White Blood Count 5.5 4.8-10.8 K/uL Red Blood Count 3.74 #L 4.00-5.50 MIL/uL Hemoglobin 11.1 #L 12.0-16.0 g/dL Hematocrit 33.7 #L 36-48 % Mean Corpuscular Volume 90.1 79-99 fL Mean Corpuscular Hemoglobin 29.7 27.0-33.0 pg Mean Corpuscular Hemoglobin Concent 32.9 32.0-36.0 g/dL Red Cell Distribution Width 17.1 H 11.0-15.5 % Platelet Count 102 #L 130-400 K/uL Mean Platelet Volume 10.9 H 7.5-10.5 fL Immature Granulocyte % (Auto) 1.8 H 0-1 % Neutrophils (%) (Auto) 76.6 40.0-77.0 % Lymphocytes (%) (Auto) 15.6 L 21.0-51.0 % Monocytes (%) (Auto) 5.6 3.0-13.0 % Eosinophils (%) (Auto) 0.0 0.0-8.0 % Basophils (%) (Auto) 0.4 0.0-5.0 % Neutrophils # (Auto) 4.2 1.8-7.7 K/uL Lymphocytes # (Auto) 0.9 L 1.0-4.8 K/uL Monocytes # (Auto) 0.3 0.1-1.0 K/uL Eosinophils # (Auto) 0.00 0.00-0.70 K/uL Basophils # (Auto) 0.02 0.00-0.20 K/uL Absolute Immature Granulocyte (auto 0.10 0-1 K/uL Nucleated Red Blood Cells 1.3 H 0.0-0.19 % Red Blood Cell Morphology See comments Platelet Morphology Comment MARKED DECREASE Chemistry Labs: Test 03/10/25 04:30 03/10/25 01:20 03/09/25 03:53 Range/Units Sodium Level 158 H 136-145 mmol/L Potassium Level 5.7 H 3.5-5.1 mmol/L Chloride Level 113 H 101-111 mmol/L Carbon Dioxide Level 23 21-32 mmol/L Blood Urea Nitrogen 20 H 7-18 mg/dL Creatinine 1.4 H 0.5-1.0 mg/dL Glomerular Filtration Rate Calc 43 >90 mL/min Random Glucose 125 #H 70-105 mg/dL Total Calcium 9.6 8.5-10.1 mg/dL Magnesium Level 2.10 1.80-2.40 mg/dL Total Bilirubin 7.8 #H 0.2-1.0 mg/dL Aspartate Amino Transf (AST/SGOT) 1548 *H 10-37 U/L Alanine Aminotransferase (ALT/SGPT) 812 #*H 12-78 U/L Alkaline Phosphatase 58 # 50-136 U/L Total Protein 5.7 L 6.0-8.3 g/dL Albumin 4.4 3.5-5.0 g/dL Whole Blood Glucose 157 #H 70-110 MG/DL Ionized Calcium 1.19 1.15-1.33 MMOL/L Phosphorus Level 2.4 L 2.5-4.9 mg/dL Coagulation Labs: Test 03/10/25 04:30 Range/Units Prothrombin Time 19.9 H 9.6-11.6 SEC Prothromb Time International Ratio 2.01 H 0.85-1.15 Activated Partial Thromboplast Time 53.5 #H 26.3-35.5 SEC Fibrinogen 283 180-350 mg/dL Diagnostics / Radiology: [Copy/Paste Echos/Imaging Report here] Impression and Plan: 1. Unstable Angina s/p 4vCABG on 03/08/2025 2. Remote anterior wall myocardial infarction July 2024 complicated by cardiogenic shock requiring Impella support for PCI with subsequent ischemic leg requiring [id number]-utph amputation 3. CAD status post stenting of the proximal LAD proximal circumflex and mid circumflex artery 4. Diabetes mellitus type 2 5. Dyslipidemia 6. Hypertension 7. Cardiogenic Shock 8. Anemia] # Severe 2v CAD: The patient presented with chest pain ACS has been ruled out. Lexiscan stress test revealed anterior ischemia 2D echocardiogram revealed a hypokinetic anteroseptal and anterolateral wall. LVEF 40-45% (unchanged from prior July 2024) Coronary angiogram on 03/01/2025 revealed severe two-vessel CAD. CV surgery was consulted and pt is s/p 4v CABG (03-08-25) Following the procedure patient became hypotensive while in the OR, and pt was found to have a nonfunctional GOLDSTEIN , Impella was inserted for MCS and SVG to LAD was placed Current grafts ( SVG-LAD , SVG -Diag, SVG-LPLB, and SVG-RCA) Cardiogenic shock requiring 3 pressors on Impella support at P5 Chest tubes output 300 ml -. Transfuse PRBC to a HGb>7. Hb is now stable at 11 gr CXR with b/l pulmonary edema. Recommend to start IV lasix gtt at 5mg/hr Strict I/Os and daily weights. Keep on telemetry and monitor/replace lytes as needed. Currently on 3 pressor support requiring mechanical ventilation support. Defer BB at this time Continue Asa 81mg qd and lipitor 40mg qhs. Rest of care by CV surgery # Cardiogenic shock: S/p 4vCABG complicated by a nonfucntional GOLDSTEIN s/p ( SVG-LAD , SVG -Diag, SVG-LPLB, and SVG-RCA) on 03/08/2025 S/p PRBC and cryo transfusion. Impella support at p5 Monitor H&H and access site. Wean of vasopressin and continue NE and Epi Keep on telemetry and monitor/replace lytes as needed. Start IV lasix at 5mg/hr with strict I/Os and daily weights. Goal net negative 1-2L/day TTE preop LVEF 40-45% with anteroseptal hypokiensis. Defer GDMT until off pressors AM CXR. Monitor for signs of hemolysis. Overall condition remains guarded. . Thank you for this consult , cardiology will continue to follow along ,post operatively Jefry Carrasco MD ATTESTATION BY PHYSICIAN I have seen and examined the patient, reviewed the above documentation, participated in medical decision making, made necessary modifications, and agree with the treatment plan as documented by my mid-level provider above. MD JESSY Catalan JAMES R MD Mar 10, 2025 08:35
--- NOTE | 2025-03-10 09:00 | NUR ---
NURSING NOTE PATIENT HAS FEVERS. DR. PAYTON AWARE. ICE PACKS FOR TEMP BEING USED. MD ORDERS BLOOD CULTURES, URINE CULTURE AND ABX. CARE ONGOING.
[2025-03-10] MEDS ORDERED: 0.9%NACL 50ML IV SCH (10:30)
[2025-03-10 10:32] LABS: ABG BASE EXCESS -6.2 mmol/L (-2.0-3.0); ABG HCO3 19.5 mmol/L (21.0-28.0); ABG OXYGEN SATURATION 95.1 % (94.0-98.0); ABG PCO2 39 mmHg (32-45); ABG PH 7.312 (7.350-7.450); CARBON MONOXIDE 0.6 % (0.5-1.5); PO2, ARTERIAL BG 87.7 mmHg (83.0-108.0); TEMPERATURE, CELSIUS BG 37.0 CELSIUS (35.5-37.0); VENT MODE, BG SIMV PS 10 (ROOM AIR)
[2025-03-10] MEDS: ZOSYN 3.375GM +NS 50ML IVPB SCH (10:38)
[2025-03-10 11:08] LABS: IMMATURE GRANULOCYTE ABSOLUTE 0.13 K/uL (0-1); NUCLEATED RED BLOOD CELLS 2.6 % (0.0-0.19); PLATELET COUNT (AUTO) 72 K/uL (130-400); RED BLOOD CELL COUNT(AUTO) 3.63 MIL/uL (4.00-5.50); RED CELL DISTRIBUTION WIDTH 17.6 % (11.0-15.5); WHITE BLOOD COUNT (AUTO) 4.5 K/uL (4.8-10.8)
[2025-03-10 11:14] LABS: CREATININE 1.9 mg/dL (0.5-1.0); GLOMERULAR FILTR. RATE CALC 30.0 mL/min (>90); GLUCOSE,RANDOM 83.0 mg/dL (70-105); TOTAL PROTEIN, SERUM 5.6 g/dL (6.0-8.3); UREA NITROGEN, BLOOD 26.0 mg/dL (7-18)
[2025-03-10 11:21] LABS: SODIUM SERUM 160.0 mmol/L (136-145)
[2025-03-10 11:22] LABS: ASPARTATE AMINOTRANSFERASE 6256.0 U/L (10-37)
--- NOTE | 2025-03-10 11:30 | NUR ---
PT follow up note: Patient remains on impella. PT team to follow. Addendum: 03/10/25 at 1246 by AP MARTINEZ PT Amended: Links added.
[2025-03-10 11:31] LABS: INR 2.18 (0.85-1.15)
--- NOTE | 2025-03-10 11:36 | HMCIMG ---
CHEST 1VW HISTORY: CABG COMPARISON: 03/09/2025 FINDINGS: A frontal projection of the chest was obtained. There are bilateral pulmonary infiltrates suggestive of pulmonary vascular congestion with possible superimposed pneumonitis. There is left pleural effusion. Poststernotomy changes are seen. The heart is enlarged. Degenerative changes of the thoracolumbar spine are present. All the lines and tubes are again seen in place. No evidence of aortic calcification is seen. IMPRESSION: 1. Bilateral pulmonary infiltrates are seen suggestive of pulmonary vascular congestion with possible superimposed pneumonitis.
[2025-03-10] MEDS ORDERED: HUMAN PROTHROMBIN COMPLX(PCC) 500 UNIT KIT IV SCH (12:00)
--- NOTE | 2025-03-10 12:14 | NUR ---
NURSING NOTE 1153: DR. PAYTON CALLED AND UPDATED ON PATIENT STATUS ALL CRITICAL LABS AND LAB CHANGES REVIEWED. ABG REVIEWED. MADE AWARE OF BUN/CREA AND DECREASED URINE OUTPUT. INCREASE LASIX DRIP TO 10MG/HR CONSULT NEPHRO GIVE LOKELMA FOR K LEVEL. CHANGE VENT SETTINGS. GIVE CRYO AND KCENTRA FOR INR, GOAL IS 1.5 OR LESS. SEE [facility] FOR ORDER SPECIFICS, CARE ONGOING.
--- NOTE | 2025-03-10 12:37 | NUR ---
NURSING NOTE BRANDY DIETARY WORKER WITH BENCHMARK ROUNDING ON PATIENT MADE AWARE DR. PAYTON REQUESTED A CHEST TUBE TO BE PLACED ON LEFT SIDE OF PATIENT BY , DR. ULLOA ROUNDING TODAY.
[2025-03-10] MEDS: HUM PROTHROMBIN CPLX(PCC)-LANS 500 UNIT VIAL IV ONE (12:43)
[2025-03-10 13:32] LABS: ABG BASE EXCESS -3.1 mmol/L (-2.0-3.0); ABG HCO3 20.7 mmol/L (21.0-28.0); ABG OXYGEN SATURATION 96.8 % (94.0-98.0); ABG PCO2 33 mmHg (32-45); ABG PH 7.417 (7.350-7.450); CARBON MONOXIDE 0.3 % (0.5-1.5); PO2, ARTERIAL BG 101.5 mmHg (83.0-108.0); TEMPERATURE, CELSIUS BG 37.0 CELSIUS (35.5-37.0); VENT MODE, BG SIMV PS 10 (ROOM AIR)
--- NOTE | 2025-03-10 13:49 | PN ---
[facility] PROGRESS NOTE Date of Service: Mar 10, 2025 Time of Service: 13:[address] Agustin SUBJECTIVE: [ ] admission date: 02/24/25 PCP: Agnieszka Shi DO chief complaint: Chest pain Primary propagation manager: Dr Jefry Osorio This is a 59-year-old female presents in ED with chief complaints of chest pain. Onset started this morning at 2:00 a.m. patient was awaken with c hest pain. Reports she has been having chest pain for a week. Location midsternal does not radiate,location midsternal stated the pain on arrival was 10/10 on pain scale. aggravated none: alleviating factors: none. Patient denies palpitation, dizziness, shortness for breath. 12 lead EKG on arrival showed heart rate [address] depression in the lateral Leads. As per ED physician changes in V5 and V6 were not seen in December 2024. Presence of LVH noted anterior STT wave changes were also. ER initiated heparin drip. Was given Full dose Aspirin and Morphine 2 mg IV x1. Troponin 1st set was negative. 02/25/25 patient was seen earlier patient reports she had chest pain overnight 3:00 a.m. patient was given nitroglycerin: continue on Heparin drip; Echo pending no chest pain at this time. she is fully alert oriented x3. 02/26/25 2D echocardiogram revealed a hypokinetic anteroseptal and anterolateral wall. LVEF 40-45%, the patient denies any cardiac symptoms or chest pain. Dr Osorio recommendations: lexiscan in am medical management for now ASA 81 mg daily , Prasugrel 10 mg daily ,Atorvastatin 40 mg daily, Imdur 30 mg daily changed Toprol XL to 25 mg daily patient is fully awake alert oriented x3. out of bed to chair with meals. Denied chest pain palpitation dyspnea. 02/27/25 patient is seen and examined patient underwent Lexiscan pending results. We will continue to monitor patient closely. She is asleep and waking per verbal stimuli primary nurse reports she was having GI problems post Lexiscan. 02/28/25 s/p Lexiscan Reversible large defect in the anterior, septal lucas. TID 1.19. LVEF 39%. Dr Osorio scheduled the patient for Left Heart cath tomorrow. The patient denies chest pain palpitation dyspnea. 03/01/25 patient was evaluated this continues without chest pain or palpitations patient had a Lexiscan stress test is PCI this after the. Patient NPO after breakfast. 03/02 patient was seen by nurse practitioner and physician during rounding in room 429. Patient is s/p left heart catheterization 03/01/[address] Jefry osorio and at this moment he is recommending cardiovascular surgeon for possible CABG evaluation. Once patient will be medically stable we will consult [facility] for evaluation. Continue one-to-one sitter for now. Continue to monitor patient in the meantime. A.m. labs 03/03 patient was seen by nurse practitioner physician during rounding. Patient was seen by cardiovascular surgeon and is pending CABG as per note at the end of this week. As per RN patient's blood pressure has been on lower side. We will order midodrine 10 mg p.r.n. t.i.d. for systolic less than 100. As per cardi ologist Dr. Jefry osorio who was rounding okay with the above-stated medicine. We will continue to monitor patient in the meantime. A.m. labs. 03/04 patient was seen by nurse practitioner and physician during rounding. Patient was evaluated by the cardiovascular surgeon and he is came to perform CABG once the patient will be off Effient for 5 to 7 days. Last dose that was administered to the patient of Effient 10 mg was given on 03/01/2025 at 12:16 p.m. we will continue to monitor patient in the meantime. A.m. labs 03/05 patient was seen by nurse practitioner and physician during rounding in room 429. Patient is pending CABG once 5 to 7 days of Effient on hold we will be completed. WBC 7.3. Electrolyte replaced per protocol. Patient denies any shortness of breath, chest pain, nausea, vomiting or any other discomfort at this moment. We will continue to monitor patient in the meantime. A.m. labs 03/06/2025 - patient is seen in room 429, patient had an episode of intermittent chest pain on exertion when she went to the washroom. Chest pain relieved with sublingual nitro, troponin and EKG were ordered which were normal. Ordered policy manager cortisol, we will follow up with the lab. Patient to be scheduled for CABG. Heart rate currently on the lower side around 50s - 60s. Patient is asymptomatic otherwise, we will follow the patient closely. 03/07 patient was seen by nurse practitioner physician during rounding in room 429. Patient is pending CABG by cardiovascular surgeon possibly tomorrow 2024. During evaluation patient denies any shortness of breath, chest pain, nausea, vomiting or any other discomfort. Patient will receive a dose of potassium. We will continue to monitor patient in the meantime. A.m. labs 03/08 patient was seen by nurse practitioner and physician during rounding in room 213. Patient is s/p CABG. No family members at the bedside at this momen t. We will continue to monitor patient in the meantime. A.m. labs 03/09 was seen by nurse practitioner and physician during rounding in room 213. Patient is s/p CABG day 1. Due to hypotension and cardiogenic shock Impella was placed. Chest tube output within 24 hours 2 L. currently patient is on three pressor support requiring mechanical ventilation support. Peak 55, peep eight 50% O2. Urine output 850 cc. No family members at the bedside. We will continue CV surgery recommendation We will continue to monitor patient in the meantime. A.m. labs 03/10 patient was seen by nurse practitioner and physician during rounding in ro om 213. Patient continues to be intubated. Chest tube is draining about 10 to 20 mL/hour. Urine output about 5 to 10 mL/hour. Patient was placed on Lasix drip 10 milligrams/hour. Nephrology consulted for ARIADNE. Patient continues to be on epi, levo and vasopressor. Patient also experience a temperature of 103 last night blood culture were ordered patient was placed on Zosyn for now. We will continue to monitor patient in the meantime. A.m. REVIEW OF SYSTEMS: unable to perform PHYSICAL EXAM: GENERAL: critically ill intubated HEENT: Sclera non icteric, moist mucosa NECK: Supple, no JVD, trachea midline , impella 5.5 LUNGS: diminished breath sounds bilaterally. No wheezes HEART: Regular rate and rhythm. Normal S1 and S2, without murmurs, chest tube in place ABD: Abdomen soft, nontender. Bowel sounds present EXT: No clubbing cyanosis or edema rt BKA NEURO:not awake, post operative likely from sedation or encephalopathy Vital Signs (last 8hr) Date Time Temp Pulse Resp B/P (MAP) Pulse Ox O2 Delivery O2 Flow Rate FiO2 6/25/25 12:00 102.9 03/10/25 11:38 104 75 03/10/25 10:45 104 12 101/69 (80) 94 03/10/25 10:30 104 12 101/70 (80) 94 03/10/25 10:15 105 12 102/70 (81) 94 03/10/25 10:00 105 12 101/70 (80) 96 03/10/25 09:45 105 12 103/71 (82) 95 03/10/25 09:30 105 12 104/71 (82) 95 03/10/25 09:15 107 75 03/10/25 09:15 106 12 105/72 (83) 95 03/10/25 09:00 107 12 113/76 (88) 96 03/10/25 08:45 108 12 112/76 (88) 96 03/10/25 08:30 108 12 115/77 (90) 97 03/10/25 08:15 106 12 115/77 (90) 97 03/10/25 08:00 107 12 114/76 (89) 97 03/10/25 08:00 103.3 03/10/25 08:00 97 Ventilator+ 0 75 03/10/25 08:00 75 03/10/25 07:45 107 12 118/78 (91) 97 03/10/25 07:30 107 12 121/79 (93) 97 03/10/25 07:15 107 13 121/85 (97) 97 03/10/25 07:00 107 12 125/87 (100) 98 03/10/25 06:45 108 14 127/88 (101) 97 03/10/25 06:30 108 13 127/87 (100) 97 03/10/25 06:28 109 75 03/10/25 06:15 108 12 124/86 (99) 99 03/10/25 06:00 109 12 129/88 (102) 97 03/10/25 05:45 110 17 132/89 (103) 97 LABS: Laboratory: Test 03/10/25 13:30 03/10/25 10:10 03/10/25 04:30 03/10/25 01:20 Range/Units Blood Gas Specimen Type Arterial Arterial Blood pH 7.417 7.350-7.450 Arterial Blood Partial Pressure CO2 33 32-45 mmHg Arterial Blood Partial Pressure O2 101.5 83.0-108.0 mmHg Arterial Blood HCO3 20.7 L 21.0-28.0 mmol/L Arterial Blood Oxygen Saturation 96.8 94.0-98.0 % Arterial Blood Base Excess -3.1 L -2.0-3.0 mmol/L Hemoglobin (Blood Gas) 11.0 L 12.0-16.0 g/dL Sodium (Blood Gas) 152 H 136-145 MMOL/L Bedside Potassium (Blood Gas) 5.2 H 3.4-4.5 MMOL/L Bedside Chloride (Blood Gas) 107 98-107 MMOL/L Bedside Glucose (Blood Gas) 103 H 65-95 MG/DL Bedside Ionized Calcium (Blood Gas) 1.15 1.15-1.33 MMOL/L Bedside Lactic Acid (Blood Gas) 15.40 *H 0.36-0.75 MMOL/L Blood Gas Temperature 37.0 35.5-37.0 CELSIUS Blood Gas Respiration Rate 18.0 min. Blood Gas Vent Mode SIMV PS 10 ROOM AIR FiO2 75.0 % Blood Gas Tidal Volume 550 ml Blood Gas PEEP 5 cm H2O Blood Gas Specimen Comment JESSICA ALTMAN RN White Blood Count 4.5 L 4.8-10.8 K/uL Red Blood Count 3.63 L 4.00-5.50 MIL/uL Hemoglobin 11.0 L 12.0-16.0 g/dL Hematocrit 33.1 L 36-48 % Mean Corpuscular Volume 91.2 79-99 fL Mean Corpuscular Hemoglobin 30.3 27.0-33.0 pg Mean Corpuscular Hemoglobin Concent 33.2 32.0-36.0 g/dL Red Cell Distribution Width 17.6 H 11.0-15.5 % Platelet Count 72 #L 130-400 K/uL Mean Platelet Volume 11.0 H 7.5-10.5 fL Immature Granulocyte % (Auto) 2.9 H 0-1 % Neutrophils (%) (Auto) 72.6 40.0-77.0 % Lymphocytes (%) (Auto) 19.2 L 21.0-51.0 % Monocytes (%) (Auto) 4.9 3.0-13.0 % Eosinophils (%) (Auto) 0.0 0.0-8.0 % Basophils (%) (Auto) 0.4 0.0-5.0 % Neutrophils # (Auto) 3.3 1.8-7.7 K/uL Lymphocytes # (Auto) 0.9 L 1.0-4.8 K/uL Monocytes # (Auto) 0.2 0.1-1.0 K/uL Eosinophils # (Auto) 0.00 0.00-0.70 K/uL Basophils # (Auto) 0.02 0.00-0.20 K/uL Absolute Immature Granulocyte (auto 0.13 0-1 K/uL Nucleated Red Blood Cells 2.6 H 0.0-0.19 % Prothrombin Time 21.4 H 9.6-11.6 SEC Prothromb Time International Ratio 2.18 H 0.85-1.15 Sodium Level 160 *H 136-145 mmol/L Potassium Level 5.7 H 3.5-5.1 mmol/L Chloride Level 113 H 101-111 mmol/L Carbon Dioxide Level 25 21-32 mmol/L Blood Urea Nitrogen 26 H 7-18 mg/dL Creatinine 1.9 H 0.5-1.0 mg/dL Glomerular Filtration Rate Calc 30 >90 mL/min Random Glucose 83 70-105 mg/dL Total Calcium 9.8 8.5-10.1 mg/dL Total Bilirubin 8.5 H 0.2-1.0 mg/dL Aspartate Amino Transf (AST/SGOT) 6256 *H 10-37 U/L Alanine Aminotransferase (ALT/SGPT) 2577 #*H 12-78 U/L Alkaline Phosphatase 69 50-136 U/L Total Creatine Kinase 2111 #*H 21-232 U/L Total Protein 5.6 L 6.0-8.3 g/dL Albumin 4.1 3.5-5.0 g/dL Activated Partial Thromboplast Time 53.5 #H 26.3-35.5 SEC Fibrinogen 283 180-350 mg/dL Magnesium Level 2.10 1.80-2.40 mg/dL Whole Blood Glucose 157 #H 70-110 MG/DL Test 03/09/25 15:43 03/09/25 03:53 03/08/25 20:45 03/08/25 14:35 Range/Units Red Blood Cell Morphology See comments Ionized Calcium 1.19 1.15-1.33 MMOL/L Phosphorus Level 2.4 L 2.5-4.9 mg/dL Platelet Morphology Comment MARKED DECREASE Activated Clotting Time 172 100-180 SEC Current Medications Medications (Trade) Dose Ordered Sig/Toby Route PRN Reason Start Time Stop Time Status Last Admin Dose Admin Acetaminophen (TYLenol 325MG TAB) 650 mg Q4H PRN PO TEMPERATURE GREATER THAN 101.5 02/24/25 07:00 03/26/25 06:59 03/01/25 19:06 650 MG Acetaminophen (TYLenol 325MG TAB) 650 mg Q4H PRN PO MILD PAIN (1-3) 03/02/25 02:30 04/01/25 02:29 03/04/25 10:39 650 MG Acetaminophen (TYLenol 325MG TAB) 650 mg Q4H PRN PO Temp >38.3C(AFTER EXTUBATION) 03/08/25 09:30 03/08/25 09:29 DC Acetaminophen (TYLenol 325MG TAB) 650 mg Q6H PRN PO MILD PAIN (1-3) 03/08/25 09:30 03/08/25 09:36 DC Acetaminophen (TYLenol 650MG SUPPOSITORY) 650 mg Q4H PRN RC Temp >38.3C WHILE INTUBATED 03/08/25 09:30 04/07/25 09:29 Acetaminophen (acetaMINOPHEN) 1,000 mg Q6H6 IV 03/08/25 13:00 03/09/25 12:59 DC 03/09/25 12:00 1,000 MG Albumin Human 50 ml @ 999 mls/hr Q6H IV 03/08/25 17:00 03/09/25 11:02 DC 03/09/25 10:10 999 MLS/HR Albumin Human 250 ml @ 0 mls/hr AD IV 03/08/25 19:00 03/10/25 06:44 DC 03/09/25 08:36 1,200 MLS/HR Albumin Human 250 ml @ 0 mls/hr AD PRN IV IF HEMODYNAMICALLY UNSTABLE 03/08/25 09:30 03/08/25 18:48 DC 03/08/25 18:48 1,200 MLS/HR Albumin Human 500 ml @ 0 mls/hr AD IV 03/08/25 20:00 03/09/25 15:49 DC 03/09/25 11:35 1,200 MLS/HR Albumin Human 500 ml @ 0 mls/hr AD IV 03/09/25 22:00 03/14/25 21:59 03/09/25 21:43 999 MLS/HR Aminocaproic Acid 80308 mg/Sodium Chloride 310 ml @ 25 mls/hr AD IV 03/08/25 09:30 03/08/25 09:31 DC Aminocaproic Acid 68982 mg/Sodium Chloride 480 ml @ 0 mls/hr AD PRN IV BLEEDING CONTROL 03/08/25 07:00 04/07/25 06:59 Amiodarone HCl 360 mg/Dextrose 207.2 ml @ 33.3 mls/hr AD IV 03/08/25 13:00 03/08/25 12:52 DC Amiodarone HCl 360 mg/Dextrose 207.2 ml @ 33.3 mls/hr AD IV 03/08/25 13:00 03/08/25 12:52 DC Amiodarone HCl 540 mg/Dextrose 310.8 ml @ 16.7 mls/hr [id number] STAT IV 03/08/25 12:45 03/08/25 20:15 DC 03/08/25 16:44 16.7 MLS/HR Aspirin (Aspirin 81mg Chew Tab) 81 mg DAILY PO 02/25/25 09:00 03/01/25 12:33 DC 02/28/25 09:18 81 MG Aspirin (Aspirin 81mg Chew Tab) 81 mg DAILY PO 03/02/25 09:00 04/01/25 08:59 03/10/25 08:16 81 MG Aspirin (Aspirin 81mg Ec Tab) 81 mg DAILY PO 02/24/25 09:00 02/24/25 08:52 DC Atorvastatin Calcium (LIPItor 20MG) 20 mg HS PO 02/24/25 21:00 02/24/25 08:52 DC Atorvastatin Calcium (LIPItor 40MG) 40 mg HS PO 02/24/25 21:00 03/26/25 20:59 03/09/25 21:29 40 MG Calcium Gluconate 1 gm/Sodium Chloride 60 ml @ 200 mls/hr AD PRN IV HYPOCALCEMIA 03/08/25 09:30 04/07/25 09:29 03/10/25 11:08 200 MLS/HR Cefazolin Sodium (Ancef) 2 gm ONCALL IVP 03/07/25 22:00 03/09/25 21:59 DC Cefazolin Sodium (Ancef) 2 gm Q8H IVPB 03/08/25 14:30 03/09/25 06:31 DC 03/09/25 06:06 2 GM Citalopram Hydrobromide (CeleXA 20MG TAB) 10 mg DAILY PO 02/25/25 09:00 03/27/25 08:59 03/10/25 08:16 10 MG Dexmedetomidine/ Sodium Chloride (PRECEdex 400MCG/ 100ML-NS) 400 mcg PROTOCOL IV 03/08/25 09:30 03/09/25 09:29 DC Dextrose (D50w) 50 ml AD PRN IV HYPOGLYCEMIA PROTOCOL 03/01/25 12:30 03/09/25 15:51 DC Dextrose (D50w) 50 ml AD PRN IV HYPOGLYCEMIA PROTOCOL 03/08/25 09:30 04/07/25 09:29 03/10/25 00:44 50 ML Docusate Sodium (COLace 100MG CAP) 100 mg BID PO 03/03/25 21:00 03/03/25 16:22 DC Docusate Sodium (COLace 100MG CAP) 100 mg BID PO 03/08/25 21:00 04/07/25 20:59 03/10/25 08:16 100 MG Epinephrine HCl 10 mg/Sodium Chloride 250 ml @ 0 mls/hr AD PRN IV TITRATE 03/08/25 07:00 04/07/25 06:59 Epinephrine HCl 10 mg/Sodium Chloride 250 ml @ 0 mls/hr AD PRN IV POST-OP CARDIOVASCULAR ORDERS 03/08/25 09:30 03/08/25 09:30 DC Famotidine (Pepcid 20mg Vial) 20 mg BID IV 03/08/25 21:00 03/10/25 20:59 03/10/25 08:16 20 MG Famotidine (Pepcid 20mg Tab) 20 mg BID PO 02/24/25 09:00 03/09/25 10:34 DC 03/07/25 20:29 20 MG Furosemide (LASix 20MG TAB) 20 mg Q12H PO 03/10/25 09:00 04/09/25 08:59 Hold Furosemide (LASix 20MG VIAL) 20 mg Q12H IV 03/09/25 09:00 03/10/25 08:59 DC 03/10/25 01:15 20 MG Furosemide 100 mg/ Sodium Chloride 100 ml @ 0 mls/hr PROTOCOL IV 03/10/25 08:00 04/09/25 07:59 03/10/25 08:29 5 MLS/HR Glucagon (Glucagon 1mg Kit) 1 mg AD PRN IM HYPOGLYCEMIA PROTOCOL 03/01/25 12:30 03/09/25 15:51 DC Glucagon (Glucagon 1mg Kit) 1 mg AD PRN IM HYPOGLYCEMIA PROTOCOL 03/08/25 09:30 04/07/25 09:29 Heparin Sodium/ Dextrose 250 ml @ 0 mls/hr PROTOCOL PRN IV PROTOCOL 02/24/25 06:00 02/25/25 05:59 DC 02/25/25 01:09 7.36 MLS/HR Insulin Human Regular (humuLIN R 100 UNIT/ML 3ML) INSULIN SLIDING SCAL... ACHS SQ 02/24/25 11:30 03/08/25 09:15 DC 03/06/25 20:24 6 UNIT Insulin Human Regular 100 unit/ Sodium Chloride 100 ml @ 0 mls/hr AD IV 03/08/25 09:30 03/10/25 09:29 DC 03/09/25 16:20 2 MLS/HR Isosorbide Mononitrate (Imdur 30mg Sr) 30 mg DAILY PO 02/24/25 09:00 03/06/25 11:46 DC 03/06/25 08:13 30 MG Isosorbide Mononitrate (Imdur 30mg Sr) 60 mg DAILY PO 03/07/25 09:00 03/08/25 09:15 DC 03/07/25 08:47 60 MG Ketorolac Tromethamine (ketOROlac troMETHamine) 15 mg Q6H PRN PO MODERATE PAIN (4-6) 03/03/25 18:00 03/03/25 16:22 DC Lactulose (Constulose 20gm/ 30ml Udcup) 20 gm BID PRN PO CONSTIPATION 03/08/25 09:30 04/07/25 09:29 Magnesium Hydroxide (Milk Of Magnesium 30ml) 30 ml DAILY PRN PO CONSTIPATION 03/08/25 09:30 04/07/25 09:29 Magnesium Sulfate 50 ml @ 12.5 mls/hr AD PRN IV MAG LEVEL LESS THAN 2.0 03/08/25 09:30 04/07/25 09:29 Magnesium Sulfate 50 ml @ 0 mls/hr PROTOCOL PRN IV low mag level 02/24/25 09:30 03/09/25 15:49 DC Metoprolol Succinate (TopROL XL) 12.5 mg DAILY PO 02/24/25 09:00 03/06/25 18:49 DC 03/03/25 08:36 12.5 MG Midodrine (PROAMatine 5 MG TABLET) 10 mg TID PO 03/03/25 14:00 03/08/25 09:15 DC 03/07/25 14:38 10 MG Morphine Sulfate (morPHINE 2MG SYG) 0.5 mg Q2H PRN IV MODERATE PAIN (4-6) 03/08/25 09:30 03/09/25 09:29 DC Morphine Sulfate (morPHINE 2MG SYG) 1 mg Q2H PRN IV SEVERE PAIN (7-10) 03/08/25 09:30 03/09/25 09:29 DC Nitroglycerin (Nitrostat) 0.4 mg Q5M PRN SL CHEST PAIN 02/24/25 06:00 03/06/25 08:51 DC 03/06/25 08:50 0.4 MG Nitroglycerin/ Dextrose 0 ml @ 0 mls/hr AD IV 03/08/25 09:30 03/11/25 09:29 Norepinephrine Bitartrate 250 ml @ 0 mls/hr AD PRN IV TITRATE 03/08/25 07:00 03/08/25 23:13 DC Norepinephrine Bitartrate (Norepineph 16 Mg/250ml NS Premix) PER PROTOCOL PROTOCOL IV 03/08/25 23:30 04/07/25 23:29 03/09/25 17:45 16 MG Norepinephrine Bitartrate 8 mg/ Dextrose 250 ml @ 0 mls/hr AD PRN IV POST-OP CARDIOVASCULAR ORDERS 03/08/25 09:30 03/08/25 09:30 DC Ondansetron HCl (zoFRAN 4MG INJ) 4 mg Q6H PRN IV NAUSEA/VOMITING 03/08/25 09:30 04/07/25 09:29 Phytonadione 10 mg/Sodium Chloride 51 ml @ 100 mls/hr Q24H IVPB 03/10/25 01:00 03/12/25 01:31 03/10/25 01:48 100 MLS/HR Piperacillin Sod/ Tazobactam Sod (Zosyn 3.375gm+NS 50ml) 3.375 gm Q8H IVPB 03/10/25 10:30 03/20/25 10:29 03/10/25 10:38 3.375 GM Potassium Phosphate 250 ml @ 42 mls/hr AD PRN IV LOW PHOS LEVEL 03/08/25 09:30 04/07/25 09:29 03/09/25 08:23 42 MLS/HR Potassium Chloride 100 ml @ 50 mls/hr AD PRN IV POTASSIUM PROTOCOL 02/24/25 09:30 03/08/25 09:15 DC Potassium Chloride 100 ml @ 100 mls/hr AD PRN IV POTASSIUM PROTOCOL 02/26/25 11:30 02/27/25 09:49 DC Potassium Chloride 100 ml @ 100 mls/hr AD PRN IV HYPOKALEMIA 03/08/25 09:30 04/07/25 09:29 03/09/25 05:37 100 MLS/HR Potassium Chloride (K-Dur/Klor-Con 20meq) 20 meq AD PRN PO POTASSIUM PROTOCOL 02/26/25 11:30 03/08/25 09:15 DC 03/07/25 05:23 20 MEQ Potassium Chloride (KCl 10% Elixir 20meq/15ml) 20 meq AD PRN PO POTASSIUM PROTOCOL 02/26/25 11:30 03/08/25 09:15 DC Prasugrel (Effient 10mg) 10 mg DAILY PO 02/25/25 09:00 03/01/25 12:54 DC 02/28/25 09:18 10 MG Propofol 100 ml @ 0 mls/hr AD PRN IV SEDATION 03/08/25 09:30 03/12/25 09:29 Prothrombin Complex Concent (Human) (Kcentra 500 Unit Kit) 500 unit ONCE IV 03/10/25 12:00 03/10/25 12:24 DC Sodium Bicarbonate (Sodium Bicarb 50meq 50ml Vial) 50 meq AD PRN IV OTHER[SEE DOSING INSTRUCTIONS] 03/08/25 09:30 03/11/25 09:29 03/10/25 04:56 100 MEQ Sodium Chloride 500 ml @ 0 mls/hr AD IV 03/08/25 09:30 04/07/25 09:29 Sodium Chloride 1,000 ml @ 10 mls/hr ONCE IV 03/08/25 09:30 03/09/25 09:29 DC Sodium Chloride 1,000 ml @ 150 mls/hr Q6H40M IV 03/01/25 12:30 03/01/25 16:29 DC 03/01/25 19:04 150 MLS/HR Sodium Chloride (NS 50ml) 50 ml AD IV 03/10/25 10:30 04/09/25 10:29 Sodium Chloride (NS Flush 10ml) 10 ml Q8H PRN IVP IV LINE FLUSH 03/08/25 09:30 04/07/25 09:29 Tramadol HCl (UltRAM) 50 mg Q6H PRN PO MODERATE PAIN (4-6) 03/08/25 09:30 03/13/25 09:29 Tramadol HCl (UltRAM) 100 mg Q6H PRN PO SEVERE PAIN (7-10) 03/08/25 09:30 03/13/25 09:29 Vasopressin 40 units/Sodium Chloride 40 ml @ 0 mls/hr PROTOCOL IV 03/08/25 17:00 04/07/25 16:59 03/09/25 16:17 2.4 MLS/HR DIAGNOSTICS / RADIOLOGY: [ ] Assessment: Cardiogenic shock SCAI Stage D CAD -S/P 4v CABG 03-08-[address] Barajas 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 TID 1.19. LVEF 39%. CAD status post stenting of the proximal LAD proximal circumflex and mid circumflex artery as above with documented progression of disease December 2024 managed medically because of concern the patient would not be compliant with dual antiplatelet therapy Remote anterior wall myocardial infarction July 2024 complicated by cardiogenic shock requiring Impella support for PCI with subsequent ischemic leg requiring [id number] amputation hypercoagulable state on Prasugrel POA functional decline: s/p BKA POA moderated protein calorie malnutrition with muscle atrophy ; BMI 19 POA History of Myocardial infarction 2023 Uncontrolled hypertension POA Hyperlipidemia Uncontrolled diabetes mellitus type 2 with hyperglycemia POA PLAN: Admit: Patient will be on telemetry condition: guarded Status: full code LINES: cvc impella chest tube et tube og tube jessica manjarrez DRIPS: levophed vasopressin epi Patient transferred to ICU prasugrel 10 mg po daily on hold for now Heparin drip stopped Start SBT's as tolerated Pending 2D echo post cabg Continue midodrine 10 mg t.i.d. PRN for systolic blood pressure less than 100. nitroglycerin 0.4 mg subL, as directed for chest pain. s/p Lexiscan abnormal: Plan for PCI this afternoon Left heart catheterization performed 03/01/2025 abnormal S/p CABG 03/08/2025 A.m. labs Replace electrolytes as needed as per protocol to keep potassium above 4.0 magnesium 2.0. ac/hs monitoring with SSRI coverage Patient continues to be intubated. Chest tube is draining about 10 to 20 mL/hour. Urine output about 5 to 10 mL/hour. Patient was placed on Lasix drip 10 milligrams/hour. Nephrology consulted for ARIADNE. Patient continues to be on epi, levo and vasopressor. Patient also experience a temperature of 103 last night blood culture were ordered patient was placed on Zosyn Supportive measures: DVT ppx, GI ppx all questions answered ATTESTATION BY PHYSICIAN I have seen and examined the patient. I reviewed the documentation, medical decision making, and treatment plan as noted by the mid-level provider above. I agree with the findings and plan of care. PATEL Estevez MD INFRASTRUCTURE TECHNICIAN Mar 10, 2025 13:49
--- NOTE | 2025-03-10 14:26 | PN ---
[facility] PROGRESS NOTE Date Patient Seen: Mar 10, 2025 Time of Visit: 14:26 Supervising Physician: Dr. 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 (LVEF: 40-45% by echo done on 02/25/2025) Unstable Angina POA Remote anterior wall myocardial infarction July 2024 complicated by cardiogenic shock requiring Impella support for PCI with subsequent ischemic leg requiring pyxxf-tur-[id number] amputation CAD status post stenting of the proximal LAD proximal circumflex and mid circumflex artery as above with documented progression of disease December 2024 managed medically because of concern the patient would not be compliant with dual antiplatelet therapy Diabetes mellitus type 2 Dyslipidemia Chest pain comorbidities: HX of ACS-STEMI s/p PCI with VIANEY placement (BSS 3.0x20 mm) in the proximal LAD, VIANEY placement (BSS 3.5x16 mm) in the proximal LCx, VIANEY placement (BSS 3.0x12 mm) in the mid LCx, and VIANEY placement (BSS 2.75x24 mm) in the distal LCx done on 07/17/2024 Hx of Intraprocedural VT in July 2024 HX of cardiogenic shock requiring Impella placement in July 2024 HX of Right lower extremity ischemia secondary to Impella placement resulting in RLE limb ischemia s/p right BKA Hx of Ischemic cardiomyopathy Hx of Medication noncompliance Hx of Hypertension ] INTERVAL HISTORY: 03/09/2025: At the time of my evaluation, the patient was lying in bed. She is off sedation RASS score of -2. Patient remains intubated and mechanically vented, SIMV rate of 12, peep 8, Vt 550 and FiO2 50%. Chest tube remains in place, per the staff nurse current output of2 L bloody. On the monitor, the patient was tachycardic, tachypneic and with acceptable blood pressure readings. 5/[address] P 9. Laboratory data was notable for a H&H 7.4/20.6 platelet count of 55. Chemistry panel showed a sodium of 159, potassium of 4.3, chloride of 120, CO2 of 30, BUN 14, creatinine of 1.1 And a GFR of 57. Total bili of 1.3, AST 280, ALT35 and a alk-phos of 23. Chest imaging today showed bilateral infiltrates more pronounced on the right. Currently, the patient is on epi/levo/vaso drip. No other concern. 03/10/2025: At the time of my evaluation, the patient is lying in bed. The patient remains on mechanical ventilator support SIMV mode, FiO2 75%, peep of 5, rate of 18, vt 550. Chest tube pleural and mediastinal remained in place with a total output of 1030 mL. The patient is febrile T-max 103.3. Vital sign parameters shows tachycardia, tachypnea and soft blood pressure trend. Laboratory data showed stable H&H and platelet count showed a drop from 102-72. Chemistry panel showed a elevated sodium of 160, potassium 5.7, chloride is 113, BUN 26, creatinine of 1.9, GFR of 30. Total bilirubin of 8.5, AST 6256, ALT 2577 and a total CK of 2111. The patient remains coagulopathic. PT 21.4, INR 2.18. Chest imaging today showed concern for a large left pleural effusion. Currently, the patient remains on epi, levo, vaso, Lasix and bicarb. She also remains on antibiotic therapy with Zosyn. No other concern. REVIEW OF SYSTEMS: unable to perform PHYSICAL EXAM: GENERAL: critically ill intubated HEENT: Sclera non icteric, moist mucosa NECK: Supple, no JVD, trachea midline , impella 5.5 LUNGS: diminished breath sounds bilaterally. No wheezes HEART: Regular rate and rhythm. Normal S1 and S2, without murmurs, chest tube in place ABD: Abdomen soft, nontender. Bowel sounds present EXT: No clubbing cyanosis or edema rt BKA NEURO: Deferred. Vital Signs (last 8hr) Date Time Temp Pulse Resp B/P (MAP) Pulse Ox O2 Delivery O2 Flow Rate FiO2 03/10/25 12:00 102.9 03/10/25 11:38 104 75 03/10/25 10:45 104 12 101/69 (80) 94 03/10/25 10:30 104 12 101/70 (80) 94 03/10/25 10:15 105 12 102/70 (81) 94 03/10/25 10:00 105 12 101/70 (80) 96 03/10/25 09:45 105 12 103/71 (82) 95 03/10/25 09:30 105 12 104/71 (82) 95 03/10/25 09:15 107 75 03/10/25 09:15 106 12 105/72 (83) 95 03/10/25 09:00 107 12 113/76 (88) 96 03/10/25 08:45 108 12 112/76 (88) 96 03/10/25 08:30 108 12 115/77 (90) 97 03/10/25 08:15 106 12 115/77 (90) 97 03/10/25 08:00 107 12 114/76 (89) 97 03/10/25 08:00 103.3 03/10/25 08:00 97 Ventilator+ 0 75 03/10/25 08:00 75 03/10/25 07:45 107 12 118/78 (91) 97 03/10/25 07:30 107 12 121/79 (93) 97 03/10/25 07:15 107 13 121/85 (97) 97 03/10/25 07:00 107 12 125/87 (100) 98 03/10/25 06:45 108 14 127/88 (101) 97 03/10/25 06:30 108 13 127/87 (100) 97 03/10/25 06:28 109 75 LABS: Hematology Labs: Test 03/10/25 10:10 03/09/25 15:43 03/08/25 20:45 Range/Units White Blood Count 4.5 L 4.8-10.8 K/uL Red Blood Count 3.63 L 4.00-5.50 MIL/uL Hemoglobin 11.0 L 12.0-16.0 g/dL Hematocrit 33.1 L 36-48 % Mean Corpuscular Volume 91.2 79-99 fL Mean Corpuscular Hemoglobin 30.3 27.0-33.0 pg Mean Corpuscular Hemoglobin Concent 33.2 32.0-36.0 g/dL Red Cell Distribution Width 17.6 H 11.0-15.5 % Platelet Count 72 #L 130-400 K/uL Mean Platelet Volume 11.0 H 7.5-10.5 fL Immature Granulocyte % (Auto) 2.9 H 0-1 % Neutrophils (%) (Auto) 72.6 40.0-77.0 % Lymphocytes (%) (Auto) 19.2 L 21.0-51.0 % Monocytes (%) (Auto) 4.9 3.0-13.0 % Eosinophils (%) (Auto) 0.0 0.0-8.0 % Basophils (%) (Auto) 0.4 0.0-5.0 % Neutrophils # (Auto) 3.3 1.8-7.7 K/uL Lymphocytes # (Auto) 0.9 L 1.0-4.8 K/uL Monocytes # (Auto) 0.2 0.1-1.0 K/uL Eosinophils # (Auto) 0.00 0.00-0.70 K/uL Basophils # (Auto) 0.02 0.00-0.20 K/uL Absolute Immature Granulocyte (auto 0.13 0-1 K/uL Nucleated Red Blood Cells 2.6 H 0.0-0.19 % Red Blood Cell Morphology See comments Platelet Morphology Comment MARKED DECREASE Chemistry Labs: Test 03/10/25 10:10 03/10/25 04:30 03/10/25 01:20 03/09/25 03:53 Range/Units Sodium Level 160 *H 136-145 mmol/L Potassium Level 5.7 H 3.5-5.1 mmol/L Chloride Level 113 H 101-111 mmol/L Carbon Dioxide Level 25 21-32 mmol/L Blood Urea Nitrogen 26 H 7-18 mg/dL Creatinine 1.9 H 0.5-1.0 mg/dL Glomerular Filtration Rate Calc 30 >90 mL/min Random Glucose 83 70-105 mg/dL Total Calcium 9.8 8.5-10.1 mg/dL Total Bilirubin 8.5 H 0.2-1.0 mg/dL Aspartate Amino Transf (AST/SGOT) 6256 *H 10-37 U/L Alanine Aminotransferase (ALT/SGPT) 2577 #*H 12-78 U/L Alkaline Phosphatase 69 50-136 U/L Total Creatine Kinase 2111 #*H 21-232 U/L Total Protein 5.6 L 6.0-8.3 g/dL Albumin 4.1 3.5-5.0 g/dL Magnesium Level 2.10 1.80-2.40 mg/dL Whole Blood Glucose 157 #H 70-110 MG/DL Ionized Calcium 1.19 1.15-1.33 MMOL/L Phosphorus Level 2.4 L 2.5-4.9 mg/dL Coagulation Labs: Test 03/10/25 10:10 03/10/25 04:30 03/08/25 14:35 Range/Units Prothrombin Time 21.4 H 9.6-11.6 SEC Prothromb Time International Ratio 2.18 H 0.85-1.15 Activated Partial Thromboplast Time 53.5 #H 26.3-35.5 SEC Fibrinogen 283 180-350 mg/dL Activated Clotting Time 172 100-180 SEC DIAGNOSTICS / RADIOLOGY RESULTS: [ ] PLAN Follow CT surgeon recommendations Follow cardiology recommendations Multimodal pain management Monitoring H&H Monitor chest tube output Chest x-ray in the morning Start SBT's as tolerated Pending 2D echo post cabg POCUS US continue impella support per cardiology follow chest XR Monitor ABGs Transfuse if absolutely necessary to keep hemoglobin above 8 Maintain O2 sats greater than 92% Incentive spirometry once extubated Hemoglobin A1 Glycemic control with goal of 80-180 Referral for cardiac rehabilitation Speech to eval once patient is extubated monitor electrolytes: K Goal of 4 Magnesium goal of 2 Replace accordingly monitor hemodynamic and continue support with pressors 03/09/2025: For now, going to continue current management for the patient. She will remain intubated and will be extubated per the CTS/CABG protocol. Patient will continue on cardiac management per the Cardiology team/CTVS. Because of her severe anemia, she was ordered to receive a unit of whole blood and 2 units of platelet which are pending to be infused. We will continue to monitor the H&H trend. Balloon pump remains in place as well as Cordis and chest tube mediastinal and pleural. We will repeat surveillance labs in morning. We will follow the recommendation of the CTS and we will intervene if necessary. We will continue to provide general supportive care, GI and DVT prophylaxis. Further orders per attending MD and hospital course. 03/10/2025: For now, going to continue current management. The patient will remains intubated and mechanically vented. Because of the appearance of a large left pleural effusion, we are asked to a chest tube for drainage. This will be placed at the bedside. The patient remains with mediastinal and pleural chest tube in place. Impella remains in place, P5. Continue with pressor therapy, diuretic and antibiotic. I am going to repeat surveillance labs in the morning as was as a chest x-ray. Nephrology was consulted for further renal management, we will await their input. I discussed the findings and plan for further management with the staff nurse. No family member present at the bedside. We will monitor the patient's progress and response to management. We will continue to provide general supportive care, GI and DVT prophylaxis. Further orders per attending MD and hospital course. NEURO: Minimize central acting medications as possible. Fall Precautions. Well lighted room through the day and minimize interruptions through the night to prevent acute delirium. PULMONARY: Supplemental 02 as needed Titrate Fio2 to keep Spo2 > or = 90% DuoNebs and CPT as needed IS hourly while awake for pulmonary hygiene Out of bed to chair as tolerated VAP Bundle Ventilator per CV protocol CARDIOVASCULAR: Follow hemodynamics. Titrate vasopressor to keep MAP >65 or systolic blood pressure >95mmHg DRIPS: levophed vasopressin epi Lasix LINES: cvc impella chest tube et tube og tube A-line manjarrez GI & NUTRITION: Continue nutritional support Aspirations precautions Prokinetic agents and laxatives as needed KIDNEYS & ELECTROLYTES: Strict monitoring of intake and output Daily weights Avoid nephrotoxic agents Monitor electrolytes and replace as needed Goal urine output of 30mL/hr or 0.5mL/kg/hr Urine output: [ ] Fluid Balance: [ ] ENDOCRINE: Maintain blood glucose between 100-180 at all times. Insulin sliding scale for blood glucose management INFECTIOUS DISEASE: Trend temperature. Combs-culture if febrile. Micro: [ ] MRSA negative Antibiotics: [ ] HEMATOLOGY & COAGULATION: Monitor H&H. Keep Hgb > 7 Transfuse 1 unit of PRBC for Hgb < 7 Transfuse 1 pack of platelets of platelets < 20, 000 Watch for any signs and symptoms of bleeding SKIN: Pressure ulcer prevention per facility protocol Rehab: PT/OT Prophylaxis: GI: pepcid DVT: [ tedhose ac per cv ] Code Status: Full Resuscitation Disposition: [ICU ] Other: I personally spent 52 minutes of critical care time in treatment of this patient. This includes patient management, time at bedside, time reviewing tests, labs, appropriate images and studies, documentation, and patient care coordination. This time excludes separately billable procedures. Patient was seen and case discussed with purnima POWERS. Plan of care was discussed and agreed upon. AYLEEN NAVA NP Mar 10, 2025 14:26
--- NOTE | 2025-03-10 14:27 | NUR ---
[facility] Consult: Patient assessed by wound healing team. See wound assessment. Assessment and recommendations provided to primary nurse. Education provided. Addendum: 03/10/25 at 1533 by JULIA BUITRAGO RN RN/ Amended: Links added.
[2025-03-10 15:50] LABS: INR 1.82 (0.85-1.15)
--- NOTE | 2025-03-10 17:21 | HMCIMG ---
FRONTAL CHEST RADIOGRAPH INDICATION: POST LEFT CHEST TUBE INSERTION COMPARISON: 03/10/25 FINDINGS/IMPRESSION: insurance commissioner leads overlie the field of view. Placement of additional left chest tube and near complete resolution of left pleural effusion. Stable lines and tubes otherwise. Remainder of the study is unchanged.
[2025-03-10 18:02] LABS: ABG BASE EXCESS -6.1 mmol/L (-2.0-3.0); ABG HCO3 17.8 mmol/L (21.0-28.0); ABG OXYGEN SATURATION 98.4 % (94.0-98.0); ABG PCO2 30 mmHg (32-45); ABG PH 7.396 (7.350-7.450); CARBON MONOXIDE 0.3 % (0.5-1.5); DEVICE COMMENT RENE RN, AL; PO2, ARTERIAL BG 185.9 mmHg (83.0-108.0); TEMPERATURE, CELSIUS BG 37.0 CELSIUS (35.5-37.0); VENT MODE, BG SIMV PS10 (ROOM AIR)
[2025-03-10] MEDS: LIDOCAINE HCL 1% 20 ML VIAL ONE (18:03)
--- NOTE | 2025-03-10 18:38 | NUR ---
NURSING NOTE DR. PAYTON CALLED AND UPDATED ON PATIENT CONDITION. AWARE PATIENT CHEST TUBE WAS PLACED WELL OUTPUT AND RECENT ABG + WAS REVIEWED. AWARE URINE OUTPUT 5ML/HR CONTINUE LASIX DRIP. ORDER TO GIVE 2FFP AND 1 UNIT OF PLT THEN D/C RIGHT FEMORAL SHEATH. APPLY FEMSTOP FOR 1 HOUR. CARE ONGOING.
--- NOTE | 2025-03-10 20:38 | CONS ---
REFERRING PHYSICIAN: Lorraine King MD REASON FOR CONSULTATION: Renal failure. HISTORY OF PRESENT ILLNESS: A 59-year-old female who has had a prolonged hospital course. She initially presented with chest pain. The patient eventually underwent coronary catheterization that revealed 3-vessel disease. The patient is status post CABG. The patient has developed acute renal failure postoperatively. The patient remains intubated in the ICU. The patient continues with the pressors. She was also noted to have hyperkalemia and was treated medically. The patient is being seen in consultation for all of the above. PAST MEDICAL HISTORY: Diabetes mellitus, hypertension, hypercholesterolemia, coronary artery disease. PAST SURGICAL HISTORY: Lower extremity amputation, CABG. SOCIAL HISTORY: She lives independently. No active tobacco use. FAMILY HISTORY: There is no renal disease in the family. ALLERGIES: There are no allergies. MEDICATIONS: Noted. REVIEW OF SYSTEMS: She is intubated in the ICU. PHYSICAL EXAMINATION: VITAL SIGNS: Blood pressure is 101/69, pulse in the 100s. She is afebrile. GENERAL: She is a chronically ill female, lying in bed in the medical floor. HEENT: Head is atraumatic. Pupils equal and reactive to light. Oropharynx, ET tubes in place. NECK: Supple. There is no JVP. CARDIOVASCULAR: Regular. There is no S3 or S4 gallop. LUNGS: Coarse with equal thoracic movement. ABDOMEN: Soft, nondistended, nontender. EXTREMITIES: There is no edema. NEUROLOGICAL: She is sedated with the vent. SKIN: No rashes or nodules. BACK: There is no CVA tenderness. No back deformities. LABORATORY DATA: Sodium 106, potassium 5.7, chloride 113, bicarb 25, BUN 26, creatinine 1.9, AST 6200. Hemoglobin 11, hematocrit 33, white blood cell count 4,000. Chest x-ray reveals pulmonary vascular congestion. IMPRESSION: * Acute renal failure. * Coronary artery disease, status post CABG. * Respiratory failure, on the vent. * Hyperkalemia. PLAN: The patient's creatinine has risen postoperatively. The patient is now on a Lasix drip. Urine output has been marginal overnight. The patient does have significant hyperkalemia, which has been treated medically. The patient can continue with the Lokelma as needed. There is no acute need for any form of renal replacement therapy at this time. We will continue to monitor the chemistries closely. The patient remains on the pressors. All labs will be repeated in the a.m. We will send off urine for electrolytes and we will follow the patient closely. TID: [id number] RECEIPT: [id number]
--- NOTE | 2025-03-10 20:52 | PN ---
SUBJECTIVE: The patient is postop day #2 from a coronary artery bypass grafting, requiring L5.5 Impella left ventricular assist device. The patient required fluid and blood products last evening. She has been coagulopathic. She remains on epinephrine, Levophed and vasopressin drips. The patient, however, this morning is much more pulsatile. She has been on P9 on the L5.5, but maintains her blood pressure and pulsatility when decreased. A has increased. Her urine has also turned bloody, which may be due to hemolysis. OBJECTIVE: GENERAL: On exam, her blood pressure is 135/62. HEENT: Reveals normocephalic, atraumatic. Her face is very swollen. Her eyelids are very swollen and are shut. She has oral endotracheal tube. She has an orogastric tube. She is connected to mechanical ventilator. She has a right cervical [place] catheter, which is currently meeting a cardiac index of 2.1 to 2.2 liters per minute per meter squared. HEART: Regular, but tachycardic. Her sternal wound is bandaged. Her chest tubes are in place with serosanguineous drainage. ABDOMEN: Reveals moderate obesity. GENITOURINARY: She has Whitfield catheter in her bladder. EXTREMITIES: She has a right femoral balloon pump and right ypzwy-hix-hnrp amputation. The distal end of the stump is now purple and possibly blistered. The left groin incision is clean, dry, and intact. Protrusion to her left lower extremity is adequate. LABORATORY DATA: The patient's creatinine is 1.3. Her transaminases are elevated. Her INR is 2.0. Her platelet count is above 100 now. Her Whitfield catheter has bloody urine and her urine output had decreased through the night. ASSESSMENT AND PLAN: * Status post coronary artery bypass grafting, requiring L5.5 left ventricular assist support. We will decrease the Impella to P5 and start aggressively weaning the vasopressin, then Levophed, and then epinephrine drips. Keep chest tubes in place. We would continue with aspirin daily down the OG tube. * Postoperative acute pulmonary insufficiency. Continue mechanical ventilatory support as the patient's chest x-ray shows evidence of pulmonary edema and a left-sided pleural effusion, which may be hemothorax. We will ask benchmark ultrasound tester if left-sided chest tube could be placed. Keep stripping the patient's current left-sided chest tube. * Hypercholesterolemia. We will have to hold statins as the patient's transaminases are elevated. * Hematuria and low urine output. We will start a Lasix drip. The hematuria may be due to hemolysis and her abnormal coags. We will correct her coags and start a Lasix drip. In addition, we will decrease her flows on the Impella to P5. * Ischemia of her right [id number]-[id number]-[id number] amputation. We will attempt to discontinue the intraaortic balloon pump sheath in the right femoral artery. * Coagulopathy. We have 2 units of Cryoprecipitate and vitamin K 10 mg daily for 3 days. Time spent 30 minutes. The patient is critically ill in the ICU. TID: [id number] RECEIPT: [id number]
--- NOTE | 2025-03-10 21:52 | PRN ---
DATE OF PROCEDURE: 03/10/25 at 16:00 INDICATION: Left moderate to large pleural effusion Procedure performed: -Percutaneous chest tube placement, left side. Pre-procedure checklist: -Informed consent obtained. -Time-out per hospital protocol. Medications used: -Lidocaine 1% 20 ml Description of procedure: Hand hygiene is performed. Under strict sterile conditions with the use of an ultrasound probe covered in sterile sheath, pleural fluid was localized and puncture site was marked and Lidocaine 1% 20 ml was used for local anesthesia. With intraoperative ultrasound guidance, a needle is advanced into the pleural fluid and demonstrates good placement of the needle. With intraoperative ultrasound guidance, 32fr percutaneous chest tube was placed successfully and connected to a water seal system. [50] ml of [bloody] fluid obtained. Patient tolerated procedure well. A post-procedure chest x-ray has been ordered. Procedure was performed under direct supervision of Dr. Armani Deluca]. Time spent in procedures is independent of other time spent with the patient. AYLEEN NAVA NP Mar 10, 2025 21:52
[2025-03-10 22:00] LABS: IMMATURE GRANULOCYTE ABSOLUTE 0.33 K/uL (0-1); NUCLEATED RED BLOOD CELLS 3.2 % (0.0-0.19); PLATELET COUNT (AUTO) 120 K/uL (130-400); RED BLOOD CELL COUNT(AUTO) 2.22 MIL/uL (4.00-5.50); RED CELL DISTRIBUTION WIDTH 18.2 % (11.0-15.5); WHITE BLOOD COUNT (AUTO) 4.4 K/uL (4.8-10.8)
[2025-03-10 22:00] LABS: ABG BASE EXCESS -7.9 mmol/L (-2.0-3.0); ABG HCO3 16.2 mmol/L (21.0-28.0); ABG OXYGEN SATURATION 98.7 % (94.0-98.0); ABG PCO2 28 mmHg (32-45); ABG PH 7.375 (7.350-7.450); CARBON MONOXIDE 0 % (0.5-1.5); DEVICE COMMENT CHRIS RN, AL; PO2, ARTERIAL BG 197.1 mmHg (83.0-108.0); TEMPERATURE, CELSIUS BG 37.0 CELSIUS (35.5-37.0); VENT MODE, BG SIMV 10 (ROOM AIR)
--- NOTE | 2025-03-10 22:07 | NUR ---
DR. FITO PAYTON CALLED AT THIS TIME DUE TO H/H 6.8/20.5 NEW ORDERS RECEIVED TO TRANSFUSE 2 PRBC AND GET COAGULATION STUDIES. ALSO TO NOT PULL FEMORAL SHEATH AT THIS TIME AND PLAN TO PULL IN AM
[2025-03-10 22:09] LABS: CREATININE 2.4 mg/dL (0.5-1.0); GLOMERULAR FILTR. RATE CALC 22.0 mL/min (>90); GLUCOSE,RANDOM 86.0 mg/dL (70-105); SODIUM SERUM 152.0 mmol/L (136-145); UREA NITROGEN, BLOOD 37.0 mg/dL (7-18)
[2025-03-10 22:36] LABS: INR 1.52 (0.85-1.15)
[2025-03-10] MEDS: DEXTROSE 5%-WATER 1,000 ML IV SCH (23:30)
[2025-03-10] MEDS: WATER IVP PRN (23:31)
[2025-03-10] MEDS: SYRING IVP PRN (23:31)
[2025-03-10] MEDS: SODIUM BICARB 8.4% IVP PRN (23:31)
[2025-03-10] MEDS: DEXTROSE 5% IVP PRN (23:31)
[2025-03-10 23:45] LABS: CREATININE,URINE RANDOM 44.29 mg/dL (30-135)
[2025-03-11] VITALS (102 sets, daily range): BP systolic 91–141; BP diastolic 62–80; PULSE 80–92; RESP 18–30; TEMP 98.5–99.3; O2SAT 92–100
[2025-03-11 00:10] LABS: ADD UA MICROSCOPIC YES; APPEARANCE,URINE TURBID (CLEAR); GLUCOSE, URINE (UA) NEGATIVE (NEGATIVE); LEUKOCYTE ESTERASE ,URINE NEGATIVE Leu/uL (NEGATIVE); NITRATE,URINE NEGATIVE (NEGATIVE); OCCULT BLOOD,URINE LARGE (NEGATIVE)
[2025-03-11 00:15] LABS: NON-SQUAMOUS EPITHELIAL CELL 2 /HPF (0-2); SQUAMOUS EPITHELIAL CELL,UR RARE /HPF (0-2); YEAST,URINE BUDDING RARE /HPF (None Seen)
[2025-03-11 01:11] LABS: ABG BASE EXCESS -9.8 mmol/L (-2.0-3.0); ABG HCO3 14.8 mmol/L (21.0-28.0); ABG OXYGEN SATURATION 98.0 % (94.0-98.0); ABG PCO2 28 mmHg (32-45); ABG PH 7.339 (7.350-7.450); CARBON MONOXIDE 0.3 % (0.5-1.5); DEVICE COMMENT CHRIS RN, AL; PO2, ARTERIAL BG 150.2 mmHg (83.0-108.0); TEMPERATURE, CELSIUS BG 37.0 CELSIUS (35.5-37.0); VENT MODE, BG SIMV PS10 (ROOM AIR)
[2025-03-11] MEDS: 0.9% NACL 500ML IV.SOLN 500 ML IV SCH (02:21)
[2025-03-11 05:13] LABS: ABG BASE EXCESS -11.4 mmol/L (-2.0-3.0); ABG HCO3 13.1 mmol/L (21.0-28.0); ABG OXYGEN SATURATION 96.9 % (94.0-98.0); ABG PCO2 26 mmHg (32-45); ABG PH 7.326 (7.350-7.450); CARBON MONOXIDE 0.2 % (0.5-1.5); DEVICE COMMENT CHRIS RN, AL; PO2, ARTERIAL BG 110.6 mmHg (83.0-108.0); TEMPERATURE, CELSIUS BG 37.0 CELSIUS (35.5-37.0); VENT MODE, BG SIMV PS 10 (ROOM AIR)
--- NOTE | 2025-03-11 05:21 | NUR ---
abg Dr. Najera updated with latest abg results rest of labs pending.
[2025-03-11 05:25] LABS: IMMATURE GRANULOCYTE ABSOLUTE 0.12 K/uL (0-1); NUCLEATED RED BLOOD CELLS 3.2 % (0.0-0.19); PLATELET COUNT (AUTO) 63 K/uL (130-400); RED BLOOD CELL COUNT(AUTO) 3.25 MIL/uL (4.00-5.50); RED CELL DISTRIBUTION WIDTH 17.5 % (11.0-15.5); WHITE BLOOD COUNT (AUTO) 6.2 K/uL (4.8-10.8)
[2025-03-11 05:37] LABS: INR 1.63 (0.85-1.15)
[2025-03-11 05:57] LABS: CREATININE 2.6 mg/dL (0.5-1.0); GLOMERULAR FILTR. RATE CALC 20.0 mL/min (>90); GLUCOSE,RANDOM 112.0 mg/dL (70-105); PHOSPHORUS 7.8 mg/dL (2.5-4.9); SODIUM SERUM 153.0 mmol/L (136-145); TOTAL PROTEIN, SERUM 5.0 g/dL (6.0-8.3); UREA NITROGEN, BLOOD 41.0 mg/dL (7-18)
--- NOTE | 2025-03-11 06:20 | NUR ---
Dr. Reinaldo Najera updated with latest h/h, plt, and coags. new order received to transfuse platelets and remove r femoral sheath.
[2025-03-11 06:30] LABS: ASPARTATE AMINOTRANSFERASE 10611.0 U/L (10-37)
--- NOTE | 2025-03-11 06:30 | NUR ---
labs Dr. Najera updated with critical labs, ck- [id number], alt- [id number], ast- [id number]
[2025-03-11] MEDS: NA ZIRCON CYCLOSIL(LOKELMA 10GM) PO ONE ×3 (07:10→16:27)
--- NOTE | 2025-03-11 08:00 | NUR ---
SHEATH TO RIGHT GROIN D/C POST PLT TRANSFUSION AND FEMSTOP DEVICE APPLIED DIRECTED BY DR. PAYTON. FEMSTOP DEVICE REMOVED SITE IS FREE OF HEMATOMA OR BLEEDING. POPLITEAL PULSE PRESENT BY DOPPLER. CARE ONGOING.
[2025-03-11 08:55] LABS: IMMATURE GRANULOCYTE ABSOLUTE 0.11 K/uL (0-1); NUCLEATED RED BLOOD CELLS 3.2 % (0.0-0.19); PLATELET COUNT (AUTO) 56 K/uL (130-400); RED BLOOD CELL COUNT(AUTO) 3.03 MIL/uL (4.00-5.50); RED CELL DISTRIBUTION WIDTH 18.1 % (11.0-15.5); WHITE BLOOD COUNT (AUTO) 6.6 K/uL (4.8-10.8)
--- NOTE | 2025-03-11 09:06 | HMCIMG ---
CHEST 1VW HISTORY: Post CABG COMPARISON: 03/10/2025 FINDINGS: A frontal projection of the chest was obtained. There are bilateral pulmonary infiltrates suggestive of pulmonary vascular congestion with possible superimposed pneumonitis. Poststernotomy changes are seen. The heart is enlarged. Degenerative changes of the thoracolumbar spine are present. All the lines and tubes are again seen in place. No evidence of aortic calcification is seen. IMPRESSION: 1. Bilateral pulmonary infiltrates are seen suggestive of pulmonary vascular congestion with possible superimposed pneumonitis. No interval changes seen.
[2025-03-11 09:28] LABS: CREATININE 2.6 mg/dL (0.5-1.0); GLOMERULAR FILTR. RATE CALC 20.0 mL/min (>90); GLUCOSE,RANDOM 150.0 mg/dL (70-105); SODIUM SERUM 151.0 mmol/L (136-145); TOTAL PROTEIN, SERUM 5.1 g/dL (6.0-8.3); UREA NITROGEN, BLOOD 42.0 mg/dL (7-18)
--- NOTE | 2025-03-11 09:40 | PN ---
[facility] CARDIOLOGY PROGRESS NOTE Date Patient Seen: Mar 11, 2025 Time of Visit: 09:33 Interval History: No acute events overnight , renal function is worsening , Cr up trended to 2.6 , Hb 9.4 hr. Platelets downtrended to 56,000, AST 08472, ALT 2900. Chest tube output 1370 ml . Physical Examination: GENERAL: Intubated, sedated with generalized edema] EYES: [PERRLA, EOMI, conjunctiva and sclera normal.] NECK: [Supple without JVD. There is no tenderness, lymphadenopathy, or masses. No thyromegaly. Normal carotid upstrokes without bruits.] LUNGS: [Ventilated breath sounds bilaterally. With crackles over lower lobes. No wheezes, or rhonchi.] HEART: [Normal rate and rhythm. Normal S1 and S2 without murmurs, gallop or rub.] VASC: [Peripheral pulses palpable and thready over LLE.] ABD: [Bowel sounds normal, soft, nontender, no masses, no organomegaly. No audible bruits.] : [Not examined] LYMPH: [No lymphadenopathy noted.] EXT: [No clubbing, cyanosis or edema. Right BKA] SKIN: [No rashes or lesions noted.] NEURO: [Awake, alert, and oriented x0. Gag reflex and DTR intact.] Laboratory: [ ] Hematology Labs: Test 03/11/25 08:44 03/10/25 21:53 Range/Units White Blood Count 6.6 4.8-10.8 K/uL Red Blood Count 3.03 L 4.00-5.50 MIL/uL Hemoglobin 9.4 L 12.0-16.0 g/dL Hematocrit 27.1 L 36-48 % Mean Corpuscular Volume 89.4 79-99 fL Mean Corpuscular Hemoglobin 31.0 27.0-33.0 pg Mean Corpuscular Hemoglobin Concent 34.7 32.0-36.0 g/dL Red Cell Distribution Width 18.1 H 11.0-15.5 % Platelet Count 56 L 130-400 K/uL Mean Platelet Volume 10.5 7.5-10.5 fL Immature Granulocyte % (Auto) 1.7 H 0-1 % Neutrophils (%) (Auto) 81.0 H 40.0-77.0 % Lymphocytes (%) (Auto) 13.0 L 21.0-51.0 % Monocytes (%) (Auto) 3.5 3.0-13.0 % Eosinophils (%) (Auto) 0.0 0.0-8.0 % Basophils (%) (Auto) 0.8 0.0-5.0 % Neutrophils # (Auto) 5.4 1.8-7.7 K/uL Lymphocytes # (Auto) 0.9 L 1.0-4.8 K/uL Monocytes # (Auto) 0.2 0.1-1.0 K/uL Eosinophils # (Auto) 0.00 0.00-0.70 K/uL Basophils # (Auto) 0.05 0.00-0.20 K/uL Absolute Immature Granulocyte (auto 0.11 0-1 K/uL Nucleated Red Blood Cells 3.2 H 0.0-0.19 % Chemistry Labs: Test 03/11/25 05:10 03/10/25 01:20 Range/Units Sodium Level 153 H 136-145 mmol/L Potassium Level 5.8 H 3.5-5.1 mmol/L Chloride Level 109 101-111 mmol/L Carbon Dioxide Level 17 L 21-32 mmol/L Blood Urea Nitrogen 41 H 7-18 mg/dL Creatinine 2.6 H 0.5-1.0 mg/dL Glomerular Filtration Rate Calc 20 >90 mL/min Random Glucose 112 H 70-105 mg/dL Total Calcium 9.7 8.5-10.1 mg/dL Phosphorus Level 7.8 H 2.5-4.9 mg/dL Magnesium Level 2.10 1.80-2.40 mg/dL Total Bilirubin 9.1 H 0.2-1.0 mg/dL Aspartate Amino Transf (AST/SGOT) 81732 *H 10-37 U/L Alanine Aminotransferase (ALT/SGPT) 2914 *H 12-78 U/L Alkaline Phosphatase 82 50-136 U/L Total Creatine Kinase 3243 #*H 21-232 U/L Total Protein 5.0 L 6.0-8.3 g/dL Albumin 3.4 L 3.5-5.0 g/dL Whole Blood Glucose 157 #H 70-110 MG/DL Coagulation Labs: Test 03/11/25 05:10 Range/Units Prothrombin Time 16.5 H 9.6-11.6 SEC Prothromb Time International Ratio 1.63 H 0.85-1.15 Activated Partial Thromboplast Time 34.3 26.3-35.5 SEC Fibrinogen 270 180-350 mg/dL Diagnostics / Radiology: [Copy/Paste Echos/Imaging Report here] Impression and Plan: 1. Unstable Angina s/p 4vCABG on 03/08/2025 2. Remote anterior wall myocardial infarction July 2024 complicated by car diogenic shock requiring Impella support for PCI with subsequent ischemic leg requiring [id number] amputation 3. CAD status post stenting of the proximal LAD proximal circumflex and mid circumflex artery 4. Diabetes mellitus type 2 5. Dyslipidemia 6. Hypertension 7. Cardiogenic Shock 8. Anemia] # Severe 2v CAD: The patient presented with chest pain ACS has been ruled out. Lexiscan stress test revealed anterior ischemia 2D echocardiogram revealed a hypokinetic anteroseptal and anterolateral wall. LVEF 40-45% (unchanged from prior July 2024) Coronary angiogram on 03/01/2025 revealed severe two-vessel CAD. CV surgery was consulted and pt is s/p 4v CABG (03-08-25) Following the procedure patient became hypotensive while in the OR, and pt was found to have a nonfunctional GOLDSTEIN , Impella was inserted for MCS and SVG to LAD was placed Current grafts ( SVG-LAD , SVG -Diag, SVG-LPLB, and SVG-RCA) Cardiogenic shock requiring 3 pressors on Impella support at P5 Chest tubes output 1370 ml -. Transfuse PRBC to a HGb>7. Hb 9.4 hr. Platelets downtrended to 56,000 CXR with b/l pulmonary edema. Recommend to start IV lasix gtt at 5mg/hr Strict I/Os and daily weights. Keep on telemetry and monitor/replace lytes as needed. Currently on 3 pressor support requiring mechanical ventilation support. Defer BB at this time Continue Asa 81mg qd and lipitor 40mg qhs. Rest of care by CV surgery # Cardiogenic shock: S/p 4vCABG complicated by a nonfucntional GOLDSTEIN s/p ( SVG-LAD , SVG -Diag, SVG-LPLB, and SVG-RCA) on 03/08/2025 S/p PRBC and cryo transfusion. Impella support at p6 Monitor H&H and access site. Wean of vasopressin and continue NE and Epi Keep on telemetry and monitor/replace lytes as needed. Continue IV lasix at 5mg/hr with strict I/Os and daily weights. Goal net negative 1-2L/day We will administer metolazone 2.5 mg via NG tube x1 TTE preop LVEF 40-45% with anteroseptal hypokiensis. Defer GDMT until off pressors Yesterday left chest tube was placed. Right chest tube output 550 mL, left chest tube output 820 mL Renal function is worsening , Cr up trended to 2.6 , Hb 9.4 hr. Platelets downtrended to 56,000, AST 31106, ALT 2900, evidence of multiorgan failure Overall condition remains guarded. . Thank you for this consult , cardiology will continue to follow along ,post operatively Jefry Carrasco MD ATTESTATION BY PHYSICIAN I have seen and examined the patient, reviewed the above documentation, participated in medical decision making, made necessary modifications, and agree with the treatment plan as documented by my mid-level provider above. MD JESSY Catalan JAMES R MD Mar 11, 2025 09:40
--- NOTE | 2025-03-11 09:56 | PN ---
SUBJECTIVE: A 59-year-old female with history of known coronary artery disease, history of vascular disease. The patient with coronary artery disease, status post CABG. The patient has had acute renal failure postoperatively. The patient with the elevated BUN and creatinine. The patient remains on the Lasix strip. Urine output has been marginal. The patient with hyperkalemia and has been treated with Lokelma and the patient is being seen as a followup visit for all of the above. REVIEW OF SYSTEMS: She is intubated in the ICU. OBJECTIVE: VITAL SIGNS: Blood pressure is 102/68, pulse 80, afebrile. GENERAL: Chronically ill female, lying in bed in the ICU. HEENT: Head is atraumatic. Pupils are equal, round and reactive to light. Oropharynx, ET tube in place. NECK: Supple. There is no JVP. CARDIOVASCULAR: Regular. There is no S3, S4, gallop. LUNGS: Coarse with equal thoracic movement. ABDOMEN: Soft, nondistended, and nontender. EXTREMITIES: There is minimal edema. NEUROLOGICAL: She is sedated on the vent. LABORATORY DATA: Sodium 153, potassium is 5.8, BUN 41, creatinine 2.6, CPK is 3200, AST is 10,000. IMPRESSION: * Acute renal failure. * Coronary artery disease, status post coronary artery bypass graft. * Respiratory failure, on the vent. * Hyperkalemia. * The patient with significant renal dysfunction. PLAN: There is no acute need for any form of renal replacement therapy at this time. The patient continues to be treated with Lokelma for the hyperkalemia. We will continue to follow closely. Workup is ongoing per cardiovascular surgery. We will continue to follow the patient closely. TID: [id number] RECEIPT: [id number]
[2025-03-11 10:06] LABS: ASPARTATE AMINOTRANSFERASE 10341.0 U/L (10-37)
[2025-03-11 10:15] LABS: ABG BASE EXCESS -8.0 mmol/L (-2.0-3.0); ABG HCO3 16.9 mmol/L (21.0-28.0); ABG OXYGEN SATURATION 97.5 % (94.0-98.0); ABG PCO2 32 mmHg (32-45); ABG PH 7.338 (7.350-7.450); CARBON MONOXIDE 0.3 % (0.5-1.5); PO2, ARTERIAL BG 138.3 mmHg (83.0-108.0); TEMPERATURE, CELSIUS BG 37.0 CELSIUS (35.5-37.0); VENT MODE, BG SIMV PS 10 (ROOM AIR)
--- NOTE | 2025-03-11 12:43 | PN ---
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 Onset started this morning at 2:00 a.m. patient was awaken with c hest pain. Reports she has been having chest pain for a week. Location midsternal does not radiate,location midsternal stated the pain on arrival was 10/10 on pain scale. aggravated none: alleviating factors: none. Patient denies palpitation, dizziness, shortness for breath. 12 lead EKG on arrival showed heart rate [address] depression in the lateral Leads. As per ED physician changes in V5 and V6 were not seen in December 2024. Presence of LVH noted anterior STT wave changes were also. ER initiated heparin drip. Was given Full dose Aspirin and Morphine 2 mg IV x1. Troponin 1st set was negative. 02/25/25 patient was seen earlier patient reports she had chest pain overnight 3:00 a.m. patient was given nitroglycerin: continue on Heparin drip; Echo pending no chest pain at this time. she is fully alert oriented x3. 02/26/25 2D echocardiogram revealed a hypokinetic anteroseptal and anterolateral wall. LVEF 40-45%, the patient denies any cardiac symptoms or chest pain. Dr Osorio recommendations: lexiscan in am medical management for now ASA 81 mg daily , Prasugrel 10 mg daily ,Atorvastatin 40 mg daily, Imdur 30 mg daily changed Toprol XL to 25 mg daily patient is fully awake alert oriented x3. out of bed to chair with meals. Denied chest pain palpitation dyspnea. 02/27/25 patient is seen and examined patient underwent Lexiscan pending results. We will continue to monitor patient closely. She is asleep and waking per verbal stimuli primary nurse reports she was having GI problems post Lexiscan. 02/28/25 s/p Lexiscan Reversible large defect in the anterior, septal lucas. TID 1.19. LVEF 39%. Dr Osorio scheduled the patient for Left Heart cath tomorrow. The patient denies chest pain palpitation dyspnea. 03/01/25 patient was evaluated this continues without chest pain or palpitations patient had a Lexiscan stress test is PCI this after the. Patient NPO after breakfast. 03/02 patient was seen by nurse practitioner and physician during rounding in room 429. Patient is s/p left heart catheterization 03/01/[address] Jefry osorio and at this moment he is recommending cardiovascular surgeon for possible CABG evaluation. Once patient will be medically stable we will consult [facility] for evaluation. Continue one-to-one sitter for now. Continue to monitor patient in the meantime. A.m. labs 03/03 patient was seen by nurse practitioner physician during rounding. Patient was seen by cardiovascular surgeon and is pending CABG as per note at the end of this week. As per RN patient's blood pressure has been on lower side. We will order midodrine 10 mg p.r.n. t.i.d. for systolic less than 100. As per cardi ologist Dr. Jefry osorio who was rounding okay with the above-stated medicine. We will continue to monitor patient in the meantime. A.m. labs. 03/04 patient was seen by nurse practitioner and physician during rounding. Patient was evaluated by the cardiovascular surgeon and he is came to perform CABG once the patient will be off Effient for 5 to 7 days. Last dose that was administered to the patient of Effient 10 mg was given on 03/01/2025 at 12:16 p.m. we will continue to monitor patient in the meantime. A.m. labs 03/05 patient was seen by nurse practitioner and physician during rounding in room 429. Patient is pending CABG once 5 to 7 days of Effient on hold we will be completed. WBC 7.3. Electrolyte replaced per protocol. Patient denies any shortness of breath, chest pain, nausea, vomiting or any other discomfort at this moment. We will continue to monitor patient in the meantime. A.m. labs 03/06/2025 - patient is seen in room 429, patient had an episode of intermittent chest pain on exertion when she went to the washroom. Chest pain relieved with sublingual nitro, troponin and EKG were ordered which were normal. Ordered camera repairman cortisol, we will follow up with the lab. Patient to be scheduled for CABG. Heart rate currently on the lower side around 50s - 60s. Patient is asymptomatic otherwise, we will follow the patient closely. 03/07 patient was seen by nurse practitioner physician during rounding in room 429. Patient is pending CABG by cardiovascular surgeon possibly tomorrow 2024. During evaluation patient denies any shortness of breath, chest pain, nausea, vomiting or any other discomfort. Patient will receive a dose of potassium. We will continue to monitor patient in the meantime. A.m. labs 03/08 patient was seen by nurse practitioner and physician during rounding in room 213. Patient is s/p CABG. No family members at the bedside at this momen t. We will continue to monitor patient in the meantime. A.m. labs 03/09 was seen by nurse practitioner and physician during rounding in room 213. Patient is s/p CABG day 1. Due to hypotension and cardiogenic shock Impella was placed. Chest tube output within 24 hours 2 L. currently patient is on three pressor support requiring mechanical ventilation support. Peak 55, peep eight 50% O2. Urine output 850 cc. No family members at the bedside. We will continue CV surgery recommendation We will continue to monitor patient in the meantime. A.m. labs 03/10 patient was seen by nurse practitioner and physician during rounding in ro om 213. Patient continues to be intubated. Chest tube is draining about 10 to 20 mL/hour. Urine output about 5 to 10 mL/hour. Patient was placed on Lasix drip 10 milligrams/hour. Nephrology consulted for ARIADNE. Patient continues to be on epi, levo and vasopressor. Patient also experience a temperature of 103 last night blood culture were ordered patient was placed on Zosyn for now. We will continue to monitor patient in the meantime. A.m. 03/11 patient was seen by nurse practitioner physician during rounding in room 213. Patient continues to be intubated. Rate 18 Peak 60 tidal volume 580 peep eight 0 2% at 75%. Total output from the chest tube on the right within 24 hours was 550. There is a new left chest tube that was put in yesterday 03/10/2025 and total output as of now it is 820. Urine outpu 800t 150 bypass 24 hours. Patient continues to be on Lasix drip 10 milligrams/hour. Continue epi, levo, vasopressor and antibiotics [place]. [place] 8[address] ALT 2651 CK 3243. We will continue to monitor patient in the meantime. A.m. labs REVIEW OF SYSTEMS: unable to perform PHYSICAL EXAM: GENERAL: critically ill intubated HEENT: Sclera non icteric, moist mucosa NECK: Supple, no JVD, trachea midline , impella 5.5 LUNGS: diminished breath sounds bilaterally. No wheezes HEART: Regular rate and rhythm. Normal S1 and S2, without murmurs, chest tube in place ABD: Abdomen soft, nontender. Bowel sounds present EXT: No clubbing cyanosis or edema rt BKA NEURO: Deferred. Vital Signs (last 8hr) Date Time Temp Pulse Resp B/P (MAP) Pulse Ox O2 Delivery O2 Flow Rate FiO2 03/11/25 12:21 88 75 03/11/25 12:00 98.4 03/11/25 12:00 75 03/11/25 12:00 82 18 120/71 (87) 95 03/11/25 12:00 95 Ventilator+ 0 03/11/25 11:45 83 18 128/75 (92) 95 03/11/25 11:30 82 18 111/68 (82) 95 03/11/25 11:15 82 18 120/72 (88) 95 03/11/25 11:00 83 18 118/71 (87) 95 03/11/25 10:45 83 18 114/70 (85) 95 03/11/25 10:30 83 18 105/67 (80) 95 03/11/25 10:15 84 18 119/71 (87) 95 03/11/25 10:00 81 18 113/69 (84) 95 03/11/25 09:45 82 18 106/66 (79) 95 03/11/25 09:30 80 18 111/69 (83) 95 03/11/25 09:27 85 75 03/11/25 09:15 80 18 101/65 (77) 95 03/11/25 09:00 85 18 106/67 (80) 95 75 03/11/25 08:45 82 18 108/68 (81) 95 75 03/11/25 08:30 83 18 122/73 (89) 95 75 03/11/25 08:15 81 18 114/72 (86) 95 03/11/25 08:00 81 18 118/74 (89) 95 75 03/11/25 08:00 95 Ventilator+ 0 75 03/11/25 08:00 75 03/11/25 08:00 99.0 03/11/25 07:45 82 18 112/71 (85) 95 75 03/11/25 07:30 82 18 114/73 (87) 95 75 03/11/25 07:15 80 18 116/73 (87) 95 03/11/25 07:00 83 22 107/69 (82) 95 03/11/25 06:36 86 75 03/11/25 06:00 85 30 102/68 (79) 95 03/11/25 05:45 87 30 112/73 (86) 95 03/11/25 05:30 91 30 124/77 (93) 95 03/11/25 05:15 86 30 120/74 (89) 95 03/11/25 05:00 92 30 135/80 (98) 95 03/11/25 04:45 88 30 108/70 (83) 95 LABS: Laboratory: Test 03/11/25 10:13 03/11/25 08:44 03/11/25 05:10 03/10/25 21:53 Range/Units Blood Gas Specimen Type Arterial Arterial Blood pH 7.338 L 7.350-7.450 Arterial Blood Partial Pressure CO2 32 32-45 mmHg Arterial Blood Partial Pressure O2 138.3 H 83.0-108.0 mmHg Arterial Blood HCO3 16.9 L 21.0-28.0 mmol/L Arterial Blood Oxygen Saturation 97.5 94.0-98.0 % Arterial Blood Base Excess -8.0 L -2.0-3.0 mmol/L Hemoglobin (Blood Gas) 10.0 L 12.0-16.0 g/dL Sodium (Blood Gas) 148 H 136-145 MMOL/L Bedside Potassium (Blood Gas) 5.4 H 3.4-4.5 MMOL/L Bedside Chloride (Blood Gas) 105 98-107 MMOL/L Bedside Glucose (Blood Gas) 145 H 65-95 MG/DL Bedside Ionized Calcium (Blood Gas) 1.06 L 1.15-1.33 MMOL/L Bedside Lactic Acid (Blood Gas) 15.11 *H 0.36-0.75 MMOL/L Blood Gas Temperature 37.0 35.5-37.0 CELSIUS Blood Gas Respiration Rate 18.0 min. Blood Gas Vent Mode SIMV PS 10 ROOM AIR FiO2 75.0 % Blood Gas Tidal Volume 550 ml Blood Gas PEEP 8 cm H2O Blood Gas Specimen Comment JESSICA ALTMAN RN White Blood Count 6.6 4.8-10.8 K/uL Red Blood Count 3.03 L 4.00-5.50 MIL/uL Hemoglobin 9.4 L 12.0-16.0 g/dL Hematocrit 27.1 L 36-48 % Mean Corpuscular Volume 89.4 79-99 fL Mean Corpuscular Hemoglobin 31.0 27.0-33.0 pg Mean Corpuscular Hemoglobin Concent 34.7 32.0-36.0 g/dL Red Cell Distribution Width 18.1 H 11.0-15.5 % Platelet Count 56 L 130-400 K/uL Mean Platelet Volume 10.5 7.5-10.5 fL Immature Granulocyte % (Auto) 1.7 H 0-1 % Neutrophils (%) (Auto) 81.0 H 40.0-77.0 % Lymphocytes (%) (Auto) 13.0 L 21.0-51.0 % Monocytes (%) (Auto) 3.5 3.0-13.0 % Eosinophils (%) (Auto) 0.0 0.0-8.0 % Basophils (%) (Auto) 0.8 0.0-5.0 % Neutrophils # (Auto) 5.4 1.8-7.7 K/uL Lymphocytes # (Auto) 0.9 L 1.0-4.8 K/uL Monocytes # (Auto) 0.2 0.1-1.0 K/uL Eosinophils # (Auto) 0.00 0.00-0.70 K/uL Basophils # (Auto) 0.05 0.00-0.20 K/uL Absolute Immature Granulocyte (auto 0.11 0-1 K/uL Nucleated Red Blood Cells 3.2 H 0.0-0.19 % Sodium Level 151 H 136-145 mmol/L Potassium Level 5.8 H 3.5-5.1 mmol/L Chloride Level 108 101-111 mmol/L Carbon Dioxide Level 20 L 21-32 mmol/L Blood Urea Nitrogen 42 H 7-18 mg/dL Creatinine 2.6 H 0.5-1.0 mg/dL Glomerular Filtration Rate Calc 20 >90 mL/min Random Glucose 150 H 70-105 mg/dL Total Calcium 9.4 8.5-10.1 mg/dL Total Bilirubin 9.6 H 0.2-1.0 mg/dL Aspartate Amino Transf (AST/SGOT) 63141 *H 10-37 U/L Alanine Aminotransferase (ALT/SGPT) 2651 *H 12-78 U/L Alkaline Phosphatase 89 50-136 U/L Total Protein 5.1 L 6.0-8.3 g/dL Albumin 3.3 L 3.5-5.0 g/dL Prothrombin Time 16.5 H 9.6-11.6 SEC Prothromb Time International Ratio 1.63 H 0.85-1.15 Activated Partial Thromboplast Time 34.3 26.3-35.5 SEC Fibrinogen 270 180-350 mg/dL Phosphorus Level 7.8 H 2.5-4.9 mg/dL Magnesium Level 2.10 1.80-2.40 mg/dL Total Creatine Kinase 3243 #*H 21-232 U/L Test 03/10/25 10:20 03/10/25 01:20 Range/Units Urine Color DARK-BROWN YELLOW Urine Appearance TURBID CLEAR Urine pH 6.0 5.0-8.0 Urine Specific [place] 1.021 1.001-1.031 Urine Protein 100 H NEGATIVE mg/dL Urine Glucose (UA) NEGATIVE NEGATIVE mg/dL Urine Ketones NEGATIVE NEGATIVE mg/dL Urine Occult Blood LARGE H NEGATIVE Urine Nitrate NEGATIVE NEGATIVE Urine Bilirubin NEGATIVE NEGATIVE mg/dL Urine Urobilinogen 0.2 0.2-1.0 mg/dL Urine Leukocyte Esterase NEGATIVE NEGATIVE Martin/uL Urine RBC 6-10 H 0-1 /HPF Urine WBC 0-1 0-1 /HPF Urine Squamous Epithelial Cells RARE 0-2 /HPF Urine Non-Squamous Epithelial Cells 2 0-2 /HPF Urine Amorphous Crystals (Auto) RARE None Seen /LPF Urine Bacteria FEW None Seen /HPF Urine Yeast RARE None Seen /HPF Urine Random Creatinine 44.29 30-135 mg/dL Urine Random Sodium 53 40-220 mmol/l Whole Blood Glucose 157 #H 70-110 MG/DL Current Medications Medications (Trade) Dose Ordered Sig/Toby Route PRN Reason Start Time Stop Time Status Last Admin Dose Admin Acetaminophen (TYLenol 325MG TAB) 650 mg Q4H PRN PO TEMPERATURE GREATER THAN 101.5 02/24/25 07:00 03/26/25 06:59 03/01/25 19:06 650 MG Acetaminophen (TYLenol 325MG TAB) 650 mg Q4H PRN PO MILD PAIN (1-3) 03/02/25 02:30 04/01/25 02:29 03/04/25 10:39 650 MG Acetaminophen (TYLenol 325MG TAB) 650 mg Q4H PRN PO Temp >38.3C(AFTER EXTUBATION) 03/08/25 09:30 03/08/25 09:29 DC Acetaminophen (TYLenol 325MG TAB) 650 mg Q6H PRN PO MILD PAIN (1-3) 03/08/25 09:30 03/08/25 09:36 DC Acetaminophen (TYLenol 650MG SUPPOSITORY) 650 mg Q4H PRN RC Temp >38.3C WHILE INTUBATED 03/08/25 09:30 04/07/25 09:29 Acetaminophen (acetaMINOPHEN) 1,000 mg Q6H6 IV 03/08/25 13:00 03/09/25 12:59 DC 03/09/25 12:00 1,000 MG Albumin Human 50 ml @ 999 mls/hr Q6H IV 03/08/25 17:00 03/09/25 11:02 DC 03/09/25 10:10 999 MLS/HR Albumin Human 250 ml @ 0 mls/hr AD IV 03/08/25 19:00 03/10/25 06:44 DC 03/09/25 08:36 1,200 MLS/HR Albumin Human 250 ml @ 0 mls/hr AD PRN IV IF HEMODYNAMICALLY UNSTABLE 03/08/25 09:30 03/08/25 18:48 DC 03/08/25 18:48 1,200 MLS/HR Albumin Human 500 ml @ 0 mls/hr AD IV 03/08/25 20:00 03/09/25 15:49 DC 03/09/25 11:35 1,200 MLS/HR Albumin Human 500 ml @ 0 mls/hr AD IV 03/09/25 22:00 03/14/25 21:59 03/10/25 18:06 999 MLS/HR Aminocaproic Acid 57769 mg/Sodium Chloride 310 ml @ 25 mls/hr AD IV 03/08/25 09:30 03/08/25 09:31 DC Aminocaproic Acid 52168 mg/Sodium Chloride 480 ml @ 0 mls/hr AD PRN IV BLEEDING CONTROL 03/08/25 07:00 04/07/25 06:59 Amiodarone HCl 360 mg/Dextrose 207.2 ml @ 33.3 mls/hr AD IV 03/08/25 13:00 03/08/25 12:52 DC Amiodarone HCl 360 mg/Dextrose 207.2 ml @ 33.3 mls/hr AD IV 03/08/25 13:00 03/08/25 12:52 DC Amiodarone HCl 540 mg/Dextrose 310.8 ml @ 16.7 mls/hr [id number] STAT IV 03/08/25 12:45 03/08/25 20:15 DC 03/08/25 16:44 16.7 MLS/HR Aspirin (Aspirin 81mg Chew Tab) 81 mg DAILY PO 02/25/25 09:00 03/01/25 12:33 DC 02/28/25 09:18 81 MG Aspirin (Aspirin 81mg Chew Tab) 81 mg DAILY PO 03/02/25 09:00 04/01/25 08:59 03/10/25 08:16 81 MG Aspirin (Aspirin 81mg Ec Tab) 81 mg DAILY PO 02/24/25 09:00 02/24/25 08:52 DC Atorvastatin Calcium (LIPItor 20MG) 20 mg HS PO 02/24/25 21:00 02/24/25 08:52 DC Atorvastatin Calcium (LIPItor 40MG) 40 mg HS PO 02/24/25 21:00 03/26/25 20:59 03/10/25 21:11 40 MG Calcium Gluconate 1 gm/Sodium Chloride 60 ml @ 200 mls/hr AD PRN IV HYPOCALCEMIA 03/08/25 09:30 04/07/25 09:29 03/11/25 10:14 200 MLS/HR Cefazolin Sodium (Ancef) 2 gm ONCALL IVP 03/07/25 22:00 03/09/25 21:59 DC Cefazolin Sodium (Ancef) 2 gm Q8H IVPB 03/08/25 14:30 03/09/25 06:31 DC 03/09/25 06:06 2 GM Citalopram Hydrobromide (CeleXA 20MG TAB) 10 mg DAILY PO 02/25/25 09:00 03/27/25 08:59 03/10/25 08:16 10 MG Dexmedetomidine/ Sodium Chloride (PRECEdex 400MCG/ 100ML-NS) 400 mcg PROTOCOL IV 03/08/25 09:30 03/09/25 09:29 DC Dextrose 1,000 ml @ 50 mls/hr Q20H IV 03/10/25 23:30 04/09/25 23:29 03/10/25 23:30 50 MLS/HR Dextrose (D50w) 50 ml AD PRN IV HYPOGLYCEMIA PROTOCOL 03/01/25 12:30 03/09/25 15:51 DC Dextrose (D50w) 50 ml AD PRN IV HYPOGLYCEMIA PROTOCOL 03/08/25 09:30 04/07/25 09:29 03/10/25 00:44 50 ML Docusate Sodium (COLace 100MG CAP) 100 mg BID PO 03/03/25 21:00 03/03/25 16:22 DC Docusate Sodium (COLace 100MG CAP) 100 mg BID PO 03/08/25 21:00 04/07/25 20:59 03/11/25 09:32 100 MG Epinephrine HCl 10 mg/Sodium Chloride 250 ml @ 0 mls/hr AD PRN IV TITRATE 03/08/25 07:00 04/07/25 06:59 03/10/25 15:04 8.5 MLS/HR Epinephrine HCl 10 mg/Sodium Chloride 250 ml @ 0 mls/hr AD PRN IV POST-OP CARDIOVASCULAR ORDERS 03/08/25 09:30 03/08/25 09:30 DC Famotidine (Pepcid 20mg Vial) 20 mg BID IV 03/08/25 21:00 03/10/25 20:59 DC 03/10/25 08:16 20 MG Famotidine (Pepcid 20mg Tab) 20 mg BID PO 02/24/25 09:00 03/09/25 10:34 DC 03/07/25 20:29 20 MG Furosemide (LASix 20MG TAB) 20 mg Q12H PO 03/10/25 09:00 03/10/25 16:28 DC Furosemide (LASix 20MG VIAL) 20 mg Q12H IV 03/09/25 09:00 03/10/25 08:59 DC 03/10/25 01:15 20 MG Furosemide 100 mg/ Sodium Chloride 100 ml @ 0 mls/hr PROTOCOL IV 03/10/25 08:00 04/09/25 07:59 03/11/25 06:17 10 MLS/HR Glucagon (Glucagon 1mg Kit) 1 mg AD PRN IM HYPOGLYCEMIA PROTOCOL 03/01/25 12:30 03/09/25 15:51 DC Glucagon (Glucagon 1mg Kit) 1 mg AD PRN IM HYPOGLYCEMIA PROTOCOL 03/08/25 09:30 04/07/25 09:29 Heparin Sodium/ Dextrose 250 ml @ 0 mls/hr PROTOCOL PRN IV PROTOCOL 02/24/25 06:00 02/25/25 05:59 DC 02/25/25 01:09 7.36 MLS/HR Insulin Human Regular (humuLIN R 100 UNIT/ML 3ML) INSULIN SLIDING SCAL... ACHS SQ 02/24/25 11:30 03/08/25 09:15 DC 03/06/25 20:24 6 UNIT Insulin Human Regular 100 unit/ Sodium Chloride 100 ml @ 0 mls/hr AD IV 03/08/25 09:30 03/10/25 09:29 DC 03/09/25 16:20 2 MLS/HR Isosorbide Mononitrate (Imdur 30mg Sr) 30 mg DAILY PO 02/24/25 09:00 03/06/25 11:46 DC 03/06/25 08:13 30 MG Isosorbide Mononitrate (Imdur 30mg Sr) 60 mg DAILY PO 03/07/25 09:00 03/08/25 09:15 DC 03/07/25 08:47 60 MG Ketorolac Tromethamine (ketOROlac troMETHamine) 15 mg Q6H PRN PO MODERATE PAIN (4-6) 03/03/25 18:00 03/03/25 16:22 DC Lactulose (Constulose 20gm/ 30ml Udcup) 20 gm BID PRN PO CONSTIPATION 03/08/25 09:30 04/07/25 09:29 Magnesium Hydroxide (Milk Of Magnesium 30ml) 30 ml DAILY PRN PO CONSTIPATION 03/08/25 09:30 04/07/25 09:29 Magnesium Sulfate 50 ml @ 12.5 mls/hr AD PRN IV MAG LEVEL LESS THAN 2.0 03/08/25 09:30 04/07/25 09:29 Magnesium Sulfate 50 ml @ 0 mls/hr PROTOCOL PRN IV low mag level 02/24/25 09:30 03/09/25 15:49 DC Metoprolol Succinate (TopROL XL) 12.5 mg DAILY PO 02/24/25 09:00 03/06/25 18:49 DC 03/03/25 08:36 12.5 MG Midodrine (PROAMatine 5 MG TABLET) 10 mg TID PO 03/03/25 14:00 03/08/25 09:15 DC 03/07/25 14:38 10 MG Morphine Sulfate (morPHINE 2MG SYG) 0.5 mg Q2H PRN IV MODERATE PAIN (4-6) 03/08/25 09:30 03/09/25 09:29 DC Morphine Sulfate (morPHINE 2MG SYG) 1 mg Q2H PRN IV SEVERE PAIN (7-10) 03/08/25 09:30 03/09/25 09:29 DC Nitroglycerin (Nitrostat) 0.4 mg Q5M PRN SL CHEST PAIN 02/24/25 06:00 03/06/25 08:51 DC 03/06/25 08:50 0.4 MG Nitroglycerin/ Dextrose 0 ml @ 0 mls/hr AD IV 03/08/25 09:30 03/11/25 09:29 DC Norepinephrine Bitartrate 250 ml @ 0 mls/hr AD PRN IV TITRATE 03/08/25 07:00 03/08/25 23:13 DC Norepinephrine Bitartrate (Norepineph 16 Mg/250ml NS Premix) PER PROTOCOL PROTOCOL IV 03/08/25 23:30 04/07/25 23:29 03/09/25 17:45 16 MG Norepinephrine Bitartrate 8 mg/ Dextrose 250 ml @ 0 mls/hr AD PRN IV POST-OP CARDIOVASCULAR ORDERS 03/08/25 09:30 03/08/25 09:30 DC Ondansetron HCl (zoFRAN 4MG INJ) 4 mg Q6H PRN IV NAUSEA/VOMITING 03/08/25 09:30 04/07/25 09:29 Phytonadione 10 mg/Sodium Chloride 51 ml @ 100 mls/hr Q24H IVPB 03/10/25 01:00 03/12/25 01:31 03/11/25 00:11 100 MLS/HR Piperacillin Sod/ Tazobactam Sod (Zosyn 3.375gm+NS 50ml) 3.375 gm Q8H IVPB 03/10/25 10:30 03/20/25 10:29 03/11/25 09:32 3.375 GM Potassium Phosphate 250 ml @ 42 mls/hr AD PRN IV LOW PHOS LEVEL 03/08/25 09:30 04/07/25 09:29 03/09/25 08:23 42 MLS/HR Potassium Chloride 100 ml @ 50 mls/hr AD PRN IV POTASSIUM PROTOCOL 02/24/25 09:30 03/08/25 09:15 DC Potassium Chloride 100 ml @ 100 mls/hr AD PRN IV POTASSIUM PROTOCOL 02/26/25 11:30 02/27/25 09:49 DC Potassium Chloride 100 ml @ 100 mls/hr AD PRN IV HYPOKALEMIA 03/08/25 09:30 04/07/25 09:29 03/09/25 05:37 100 MLS/HR Potassium Chloride (K-Dur/Klor-Con 20meq) 20 meq AD PRN PO POTASSIUM PROTOCOL 02/26/25 11:30 03/08/25 09:15 DC 03/07/25 05:23 20 MEQ Potassium Chloride (KCl 10% Elixir 20meq/15ml) 20 meq AD PRN PO POTASSIUM PROTOCOL 02/26/25 11:30 03/08/25 09:15 DC Prasugrel (Effient 10mg) 10 mg DAILY PO 02/25/25 09:00 03/01/25 12:54 DC 02/28/25 09:18 10 MG Propofol 100 ml @ 0 mls/hr AD PRN IV SEDATION 03/08/25 09:30 03/12/25 09:29 Prothrombin Complex Concent (Human) (Kcentra 500 Unit Kit) 500 unit ONCE IV 03/10/25 12:00 03/10/25 12:24 DC Sodium Bicarbonate 25 meq/Dextrose 1,000 ml @ 0 mls/hr Q0M PRN IVP OTHER [SEE ORDER COMMENTS] 03/10/25 22:30 04/09/25 22:29 03/10/25 23:31 11.6 MLS/HR Sodium Bicarbonate (Sodium Bicarb 50meq 50ml Vial) 50 meq AD PRN IV OTHER[SEE DOSING INSTRUCTIONS] 03/08/25 09:30 03/11/25 09:29 DC 03/10/25 04:56 100 MEQ Sodium Chloride 500 ml @ 0 mls/hr AD IV 03/08/25 09:30 04/07/25 09:29 03/11/25 02:21 3 MLS/HR Sodium Chloride 1,000 ml @ 10 mls/hr ONCE IV 03/08/25 09:30 03/09/25 09:29 DC Sodium Chloride 1,000 ml @ 150 mls/hr Q6H40M IV 03/01/25 12:30 03/01/25 16:29 DC 03/01/25 19:04 150 MLS/HR Sodium Chloride (NS 50ml) 50 ml AD IV 03/10/25 10:30 03/10/25 16:27 DC Sodium Chloride (NS Flush 10ml) 10 ml Q8H PRN IVP IV LINE FLUSH 03/08/25 09:30 04/07/25 09:29 Tramadol HCl (UltRAM) 50 mg Q6H PRN PO MODERATE PAIN (4-6) 03/08/25 09:30 03/13/25 09:29 Tramadol HCl (UltRAM) 100 mg Q6H PRN PO SEVERE PAIN (7-10) 03/08/25 09:30 03/13/25 09:29 Vasopressin 40 units/Sodium Chloride 40 ml @ 0 mls/hr PROTOCOL IV 03/08/25 17:00 04/07/25 16:59 03/10/25 19:26 2.4 MLS/HR DIAGNOSTICS / RADIOLOGY: [ ] Assessment: Cardiogenic shock SCAI Stage D CAD -S/P 4v CABG 03-08-[address] Barajas 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 TID 1.19. LVEF 39%. CAD status post stenting of the proximal LAD proximal circumflex and mid circumflex artery as above with documented progression of disease December 2024 managed medically because of concern the patient would not be compliant with dual antiplatelet therapy Remote anterior wall myocardial infarction July 2024 complicated by cardiogenic shock requiring Impella support for PCI with subsequent ischemic leg requiring [id number] amputation hypercoagulable state on Prasugrel POA functional decline: s/p BKA POA moderated protein calorie malnutrition with muscle atrophy ; BMI 19 POA History of Myocardial infarction 2023 Uncontrolled hypertension POA Hyperlipidemia Uncontrolled diabetes mellitus type 2 with hyperglycemia POA PLAN: Admit: Patient will be on telemetry condition: guarded Status: full code LINES: cvc impella chest tube et tube og tube jessica manjarrez DRIPS: levophed vasopressin epi continue in ICU prasugrel 10 mg po daily on hold for now Heparin drip stopped Start SBT's as tolerated Pending 2D echo post cabg Continue midodrine 10 mg t.i.d. PRN for systolic blood pressure less than 100. nitroglycerin 0.4 mg subL, as directed for chest pain. s/p Lexiscan abnormal: Plan for PCI this afternoon Left heart catheterization performed 03/01/2025 abnormal S/p CABG 03/08/2025 A.m. labs Replace electrolytes as needed as per protocol to keep potassium above 4.0 magnesium 2.0. ac/hs monitoring with SSRI coverage Patient continues to be intubated. Chest tube is draining about 10 to 20 mL/hour. Urine output about 5 to 10 mL/hour. Patient was placed on Lasix drip 10 milligrams/hour. Nephrology consulted for ARIADNE. Patient continues to be on epi, levo and vasopressor. Patient also experience a temperature of 103 last night blood culture were ordered patient was placed on Zosyn Supportive measures: DVT ppx, GI ppx I personally spent more than 45 minutes of critical care time in treatment of this patient. This includes patient management, time at bedside, time reviewing tests, labs, appropriate images and studies, documentation, and patient care coordination. This time excludes separately billable procedures. ATTESTATION BY PHYSICIAN I have seen and examined the patient. I reviewed the documentation, medical decision making, and treatment plan as noted by the mid-level provider above. I agree with the findings and plan of care. PATEL Estevez MD [employer] Mar 11, 2025 12:43
--- NOTE | 2025-03-11 14:06 | NUR ---
PER NURSE PATIENT ON HOLD FOR PHYSICAL THERAPY UNTIL FURTHER NOTICE. NURSE SHOULD SEND NEW ORDER WHEN PATIENT STABLE
[2025-03-11 14:42] LABS: ABG BASE EXCESS -5.5 mmol/L (-2.0-3.0); ABG HCO3 18.5 mmol/L (21.0-28.0); ABG OXYGEN SATURATION 97.7 % (94.0-98.0); ABG PCO2 31 mmHg (32-45); ABG PH 7.397 (7.350-7.450); CARBON MONOXIDE 0.1 % (0.5-1.5); PO2, ARTERIAL BG 129.0 mmHg (83.0-108.0); TEMPERATURE, CELSIUS BG 37.0 CELSIUS (35.5-37.0); VENT MODE, BG SIMV PS 10 (ROOM AIR)
[2025-03-11] MEDS ORDERED: COMPOUND IV MISC 1 EACH IVSOLN MISC PRN (15:00)
--- NOTE | 2025-03-11 15:40 | PN ---
[facility] PROGRESS NOTE Date Patient Seen: Mar 11, 2025 Time of Visit: 15:38 Supervising Physician: Dr. 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 (LVEF: 40-45% by echo done on 02/25/2025) Unstable Angina POA Remote anterior wall myocardial infarction July 2024 complicated by cardiogenic shock requiring Impella support for PCI with subsequent ischemic leg requiring tizqx-[id number]-zrgn amputation CAD status post stenting of the proximal LAD proximal circumflex and mid circumflex artery as above with documented progression of disease December 2024 managed medically because of concern the patient would not be compliant with dual antiplatelet therapy Diabetes mellitus type 2 Dyslipidemia Chest pain comorbidities: HX of ACS-STEMI s/p PCI with VIANEY placement (BSS 3.0x20 mm) in the proximal LAD, VIANEY placement (BSS 3.5x16 mm) in the proximal LCx, VIANEY placement (BSS 3.0x12 mm) in the mid LCx, and VIANEY placement (BSS 2.75x24 mm) in the distal LCx done on 07/17/2024 Hx of Intraprocedural VT in July 2024 HX of cardiogenic shock requiring Impella placement in July 2024 HX of Right lower extremity ischemia secondary to Impella placement resulting in RLE limb ischemia s/p right BKA Hx of Ischemic cardiomyopathy Hx of Medication noncompliance Hx of Hypertension ] INTERVAL HISTORY: 03/09/2025: At the time of my evaluation, the patient was lying in bed. She is off sedation RASS score of -2. Patient remains intubated and mechanically vented, SIMV rate of 12, peep 8, Vt 550 and FiO2 50%. Chest tube remains in place, per the staff nurse current output of2 L bloody. On the monitor, the patient was tachycardic, tachypneic and with acceptable blood pressure readings. 5/[address] P 9. Laboratory data was notable for a H&H 7.4/20.6 platelet count of 55. Chemistry panel showed a sodium of 159, potassium of 4.3, chloride of 120, CO2 of 30, BUN 14, creatinine of 1.1 And a GFR of 57. Total bili of 1.3, AST 280, ALT35 and a alk-phos of 23. Chest imaging today showed bilateral infiltrates more pronounced on the right. Currently, the patient is on epi/levo/vaso drip. No other concern. 03/10/2025: At the time of my evaluation, the patient is lying in bed. The patient remains on mechanical ventilator support SIMV mode, FiO2 75%, peep of 5, rate of 18, vt 550. Chest tube pleural and mediastinal remained in place with a total output of 1030 mL. The patient is febrile T-max 103.3. Vital sign parameters shows tachycardia, tachypnea and soft blood pressure trend. Laboratory data showed stable H&H and platelet count showed a drop from 102-72. Chemistry panel showed a elevated sodium of 160, potassium 5.7, chloride is 113, BUN 26, creatinine of 1.9, GFR of 30. Total bilirubin of 8.5, AST 6256, ALT 2577 and a total CK of 2111. The patient remains coagulopathic. PT 21.4, INR 2.18. Chest imaging today showed concern for a large left pleural effusion. Currently, the patient remains on epi, levo, vaso, Lasix and bicarb. She also remains on antibiotic therapy with Zosyn. No other concern. 03/11/2025: At the time of my evaluation, the patient is lying in bed. The patient may remains mechanically vented on SIMV with pressure support of 10, rate 18, FiO2 75, Vt 550 and a PEEP of 8. Vital signs, are unremarkable. Laboratory data today, showed a WBC 6.6, H&H 9.4/27.1 and a platelet count of 56. Chemistry panel showed a sodium of 151, potassium of 5.8, chloride of 108, CO2 of 20, BUN 42,, creatinine of 2.6 and a GFR of 20. Total bili of 9.6, AST 90880, ALT 2651 alk-phos of 89, total CK of 3243 chest x-ray showed bilateral pulmonary vascular congestion and infiltrate. Left pleural effusion has improved after chest tube placement on 03/10/2025. Currently, the patient continues on epi, levo, vaso and Lasix. She is also on IV Zosyn. No other complaint. REVIEW OF SYSTEMS: unable to perform PHYSICAL EXAM: GENERAL: critically ill intubated HEENT: Sclera non icteric, moist mucosa NECK: Supple, no JVD, trachea midline , impella 5.5 LUNGS: diminished breath sounds bilaterally. No wheezes HEART: Regular rate and rhythm. Normal S1 and S2, without murmurs, chest tube in place ABD: Abdomen soft, nontender. Bowel sounds present EXT: No clubbing cyanosis or edema rt BKA NEURO: Deferred. Vital Signs (last 8hr) Date Time Temp Pulse Resp B/P (MAP) Pulse Ox O2 Delivery O2 Flow Rate FiO2 03/11/25 14:43 84 75 03/11/25 13:30 84 18 120/71 (87) 95 03/11/25 13:15 83 18 115/70 (85) 95 03/11/25 13:00 84 18 119/70 (86) 95 03/11/25 12:45 82 18 107/67 (80) 95 03/11/25 12:30 82 18 106/66 (79) 95 03/11/25 12:21 88 75 03/11/25 12:15 82 18 108/67 (81) 95 03/11/25 12:00 98.4 03/11/25 12:00 75 03/11/25 12:00 82 18 120/71 (87) 95 75 03/11/25 12:00 95 Ventilator+ 0 75 03/11/25 11:45 83 18 128/75 (92) 95 03/11/25 11:30 82 18 111/68 (82) 95 03/11/25 11:15 82 18 120/72 (88) 95 03/11/25 11:00 83 18 118/71 (87) 95 03/11/25 10:45 83 18 114/70 (85) 95 03/11/25 10:30 83 18 105/67 (80) 95 03/11/25 10:15 84 18 119/71 (87) 95 75 03/11/25 10:00 81 18 113/69 (84) 95 75 03/11/25 09:45 82 18 106/66 (79) 95 75 03/11/25 09:30 80 18 111/69 (83) 95 75 03/11/25 09:27 85 75 03/11/25 09:15 80 18 101/65 (77) 95 75 03/11/25 09:00 85 18 106/67 (80) 95 75 03/11/25 08:45 82 18 108/68 (81) 95 03/11/25 08:30 83 18 122/73 (89) 95 75 03/11/25 08:15 81 18 114/72 (86) 95 75 03/11/25 08:00 81 18 118/74 (89) 95 75 03/11/25 08:00 95 Ventilator+ 0 75 03/11/25 08:00 75 03/11/25 08:00 99.0 03/11/25 07:45 82 18 112/71 (85) 95 75 LABS: Hematology Labs: Test 03/11/25 08:44 03/10/25 21:53 Range/Units White Blood Count 6.6 4.8-10.8 K/uL Red Blood Count 3.03 L 4.00-5.50 MIL/uL Hemoglobin 9.4 L 12.0-16.0 g/dL Hematocrit 27.1 L 36-48 % Mean Corpuscular Volume 89.4 79-99 fL Mean Corpuscular Hemoglobin 31.0 27.0-33.0 pg Mean Corpuscular Hemoglobin Concent 34.7 32.0-36.0 g/dL Red Cell Distribution Width 18.1 H 11.0-15.5 % Platelet Count 56 L 130-400 K/uL Mean Platelet Volume 10.5 7.5-10.5 fL Immature Granulocyte % (Auto) 1.7 H 0-1 % Neutrophils (%) (Auto) 81.0 H 40.0-77.0 % Lymphocytes (%) (Auto) 13.0 L 21.0-51.0 % Monocytes (%) (Auto) 3.5 3.0-13.0 % Eosinophils (%) (Auto) 0.0 0.0-8.0 % Basophils (%) (Auto) 0.8 0.0-5.0 % Neutrophils # (Auto) 5.4 1.8-7.7 K/uL Lymphocytes # (Auto) 0.9 L 1.0-4.8 K/uL Monocytes # (Auto) 0.2 0.1-1.0 K/uL Eosinophils # (Auto) 0.00 0.00-0.70 K/uL Basophils # (Auto) 0.05 0.00-0.20 K/uL Absolute Immature Granulocyte (auto 0.11 0-1 K/uL Nucleated Red Blood Cells 3.2 H 0.0-0.19 % Chemistry Labs: Test 03/11/25 08:44 03/11/25 05:10 03/10/25 01:20 Range/Units Sodium Level 151 H 136-145 mmol/L Potassium Level 5.8 H 3.5-5.1 mmol/L Chloride Level 108 101-111 mmol/L Carbon Dioxide Level 20 L 21-32 mmol/L Blood Urea Nitrogen 42 H 7-18 mg/dL Creatinine 2.6 H 0.5-1.0 mg/dL Glomerular Filtration Rate Calc 20 >90 mL/min Random Glucose 150 H 70-105 mg/dL Total Calcium 9.4 8.5-10.1 mg/dL Total Bilirubin 9.6 H 0.2-1.0 mg/dL Aspartate Amino Transf (AST/SGOT) 98220 *H 10-37 U/L Alanine Aminotransferase (ALT/SGPT) 2651 *H 12-78 U/L Alkaline Phosphatase 89 50-136 U/L Total Protein 5.1 L 6.0-8.3 g/dL Albumin 3.3 L 3.5-5.0 g/dL Phosphorus Level 7.8 H 2.5-4.9 mg/dL Magnesium Level 2.10 1.80-2.40 mg/dL Total Creatine Kinase 3243 #*H 21-232 U/L Whole Blood Glucose 157 #H 70-110 MG/DL Coagulation Labs: Test 03/11/25 05:10 Range/Units Prothrombin Time 16.5 H 9.6-11.6 SEC Prothromb Time International Ratio 1.63 H 0.85-1.15 Activated Partial Thromboplast Time 34.3 26.3-35.5 SEC Fibrinogen 270 180-350 mg/dL DIAGNOSTICS / RADIOLOGY RESULTS: [ ] PLAN Follow CT surgeon recommendations Follow cardiology recommendations Multimodal pain management Monitoring H&H Monitor chest tube output Chest x-ray in the morning Start SBT's as tolerated Pending 2D echo post cabg POCUS US continue impella support per cardiology follow chest XR Monitor ABGs Transfuse if absolutely necessary to keep hemoglobin above 8 Maintain O2 sats greater than 92% Incentive spirometry once extubated Hemoglobin A1 Glycemic control with goal of 80-180 Referral for cardiac rehabilitation Speech to eval once patient is extubated monitor electrolytes: K Goal of 4 Magnesium goal of 2 Replace accordingly monitor hemodynamic and continue support with pressors 03/09/2025: For now, going to continue current management for the patient. She will remain intubated and will be extubated per the CTS/CABG protocol. Patient will continue on cardiac management per the Cardiology team/CTVS. Because of her severe anemia, she was ordered to receive a unit of whole blood and 2 units of platelet which are pending to be infused. We will continue to monitor the H&H trend. Balloon pump remains in place as well as Cordis and chest tube mediastinal and pleural. We will repeat surveillance labs in morning. We will follow the recommendation of the CTS and we will intervene if necessary. We will continue to provide general supportive care, GI and DVT prophylaxis. Further orders per attending MD and hospital course. 03/10/2025: For now, going to continue current management. The patient will remains intubated and mechanically vented. Because of the appearance of a large left pleural effusion, we are asked to a chest tube for drainage. This will be placed at the bedside. The patient remains with mediastinal and pleural chest tube in place. Impella remains in place, P5. Continue with pressor therapy, diuretic and antibiotic. I am going to repeat surveillance labs in the morning as was as a chest x-ray. Nephrology was consulted for further renal management, we will await their input. I discussed the findings and plan for further management with the staff nurse. No family member present at the bedside. We will monitor the patient's progress and response to management. We will continue to provide general supportive care, GI and DVT prophylaxis. Further orders per attending MD and hospital course. 03/11/2025: For now, going to continue current management for the patient. Patient received a dose of Kayexalate earlier for management of the hyp erkalemia, we will repeat level and decide on further need for extra dose of Kayexalate. Per the Cardiothoracic surgeon recommendations were to obtain a hit panel and consult the spring former hand for further input on management due to her low platelet count. We will follow their recommendation. The patient will remain on mechanical ventilator support and sedation. We will follow the chest tube output. There was slight improvement of her liver parameters and total CK increase. I discussed the findings and plan for further management with the staff nurse. We will monitor the patient's progress and response to management. We will continue to provide general supportive care, GI and DVT prophylaxis. Further orders per attending MD and hospital course. NEURO: Minimize central acting medications as possible. Fall Precautions. Well lighted room through the day and minimize interruptions through the night to prevent acute delirium. PULMONARY: Supplemental 02 as needed Titrate Fio2 to keep Spo2 > or = 90% DuoNebs and CPT as needed IS hourly while awake for pulmonary hygiene Out of bed to chair as tolerated VAP Bundle Ventilator per CV protocol CARDIOVASCULAR: Follow hemodynamics. Titrate vasopressor to keep MAP >65 or systolic blood pressure >95mmHg DRIPS: levophed vasopressin epi Lasix LINES: cvc impella chest tube et tube og tube A-line manjarrez GI & NUTRITION: Continue nutritional support Aspirations precautions Prokinetic agents and laxatives as needed KIDNEYS & ELECTROLYTES: Strict monitoring of intake and output Daily weights Avoid nephrotoxic agents Monitor electrolytes and replace as needed Goal urine output of 30mL/hr or 0.5mL/kg/hr Urine output: [ ] Fluid Balance: [ ] ENDOCRINE: Maintain blood glucose between 100-180 at all times. Insulin sliding scale for blood glucose management INFECTIOUS DISEASE: Trend temperature. Combs-culture if febrile. Micro: [ ] MRSA negative Antibiotics: [ ] HEMATOLOGY & COAGULATION: Monitor H&H. Keep Hgb > 7 Transfuse 1 unit of PRBC for Hgb < 7 Transfuse 1 pack of platelets of platelets < 20, 000 Watch for any signs and symptoms of bleeding SKIN: Pressure ulcer prevention per facility protocol Rehab: PT/OT Prophylaxis: GI: pepcid DVT: [ tedhose ac per cv ] Code Status: Full Resuscitation Disposition: [ICU ] Other: I personally spent 52 minutes of critical care time in treatment of this patient. This includes patient management, time at bedside, time reviewing tests, labs, appropriate images and studies, documentation, and patient care coordination. This time excludes separately billable procedures. Patient was seen and case discussed with purnima POWERS. Plan of care was discussed and agreed upon. AYLEEN NAVA NP Mar 11, 2025 15:40
--- NOTE | 2025-03-11 15:46 | NUR ---
DR. PAYTON UPDATED ON PATIENT CONDITION, CONSULT HEMATOLOGY, SEND HIT PANEL AND TATUM. ACCORDING TO LAB SERATONIN RELEASE ASSAY IS NOT A TEST THEY CAN DO AT THIS FACILITY.
[2025-03-11 16:14] LABS: INR 1.65 (0.85-1.15)
[2025-03-11 18:40] LABS: ABG BASE EXCESS -1.6 mmol/L (-2.0-3.0); ABG HCO3 21.8 mmol/L (21.0-28.0); ABG OXYGEN SATURATION 98.5 % (94.0-98.0); ABG PCO2 32 mmHg (32-45); ABG PH 7.454 (7.350-7.450); CARBON MONOXIDE 0.2 % (0.5-1.5); PO2, ARTERIAL BG 189.2 mmHg (83.0-108.0); TEMPERATURE, CELSIUS BG 37.0 CELSIUS (35.5-37.0); VENT MODE, BG SIMV (ROOM AIR)
[2025-03-11 20:59] LABS: ABG BASE EXCESS -1.4 mmol/L (-2.0-3.0); ABG HCO3 22.3 mmol/L (21.0-28.0); ABG OXYGEN SATURATION 98.7 % (94.0-98.0); ABG PCO2 34 mmHg (32-45); ABG PH 7.440 (7.350-7.450); CARBON MONOXIDE 0.4 % (0.5-1.5); DEVICE COMMENT CHRIS RN, AL; PO2, ARTERIAL BG 196.2 mmHg (83.0-108.0); TEMPERATURE, CELSIUS BG 37.0 CELSIUS (35.5-37.0); VENT MODE, BG SIMV PS 10 (ROOM AIR)
[2025-03-11 21:09] LABS: IMMATURE GRANULOCYTE ABSOLUTE 0.10 K/uL (0-1); NUCLEATED RED BLOOD CELLS 2.0 % (0.0-0.19); PLATELET COUNT (AUTO) 33 K/uL (130-400); RED BLOOD CELL COUNT(AUTO) 2.92 MIL/uL (4.00-5.50); RED CELL DISTRIBUTION WIDTH 17.9 % (11.0-15.5); WHITE BLOOD COUNT (AUTO) 7.8 K/uL (4.8-10.8)
[2025-03-11 21:40] LABS: CREATININE 2.9 mg/dL (0.5-1.0); GLOMERULAR FILTR. RATE CALC 18.0 mL/min (>90); GLUCOSE,RANDOM 175.0 mg/dL (70-105); SODIUM SERUM 147.0 mmol/L (136-145); UREA NITROGEN, BLOOD 49.0 mg/dL (7-18)
--- NOTE | 2025-03-11 22:04 | NUR ---
Dr. Reinaldo Najera at bedside updated on pt status latest labs, drips, i&o's, and discoloration to fingers, left foot and right stump. He is also aware pt will open eyes to stimuli but does not follow commands off sedation. Impella increased to P7 in attempts to wean vasopressors. Will continue to monitor.
[2025-03-12] VITALS (113 sets, daily range): BP systolic 82–164; BP diastolic 60–97; PULSE 73–95; RESP 8–40; TEMP 99.2–100.5; O2SAT 91–98
--- NOTE | 2025-03-12 00:39 | PN ---
SUBJECTIVE: The patient is postop day #3 from a coronary artery bypass grafting, requiring an L5 Impella support. The patient's coagulopathy was corrected enough that we were able to pull out the right femoral intraaortic balloon pump sheath, which appeared to be compromising flow to her right [id number]-qmb-vddj amputation. Upon doing so, the patient's acidosis appeared to be improving and she has been able to be weaned off of her vasopressin drip. Currently, her vital signs reveal a pulse of 84, blood pressure is 121/66, and oxygen saturations are 98% on the mechanical ventilator. OBJECTIVE: HEENT: Reveals normocephalic. Her head, her face, and eyelids are all swollen. She has oral endotracheal tube connected to mechanical ventilator. She has an orogastric tube. CHEST: Her sternal wound is bandaged. Her chest tubes are in place. She has a right cervical Lincoln-Shantelle catheter reading a cardiac index of 3.0 liters/minute. She has a left cervical L5.5 Impella catheter set at T6, giving her 3.2 liters/minute of flow. She has a left radial art line. ABDOMEN: Reveals mild obesity. GENITOURINARY: She has a Whitfield catheter in her bladder. EXTREMITIES: She has a bandage over her right femoral artery where the sheaths have been removed. Her right saqed-jcf-spmd amputation stump is mottled below the knee, but is relatively warm and there is a Doppler signal in the popliteal artery. She has SCD on her left lower extremity. ASSESSMENT AND PLAN: * Status post coronary artery bypass grafting, requiring Impella support. We would continue to wean first the Levophed and then the epinephrine drip. Keep chest tubes in place. We will keep Impella at the T6 level as long as there is no hemolysis. Continue Lasix drip. * Postoperative acute pulmonary insufficiency. Continue mechanical ventilatory support until her pulmonary edema resolves. * Acute kidney injury. Nephrology is following the patient. We will continue Lasix drip unless they feel differently. I suspect that part of the issues with her kidneys are related to the high pressor use, which we are currently weaning and possibly some rhabdomyolysis. * Hypercholesterolemia. Statin therapies are on hold due to elevated transaminases. We will continue to trend. * DVT prophylaxis. Continue SCD to lower extremities. * Thrombocytopenia. We will send of a HIT panel, consult Hematology and avoid heparin and heparin products. Also, avoid platelet transfusions unless absolutely bleeding. Time spent 30 minutes. The patient is critically ill in the ICU. TID: [id number] RECEIPT: [id number]
[2025-03-12 01:10] LABS: ABG BASE EXCESS 2.3 mmol/L (-2.0-3.0); ABG HCO3 25.4 mmol/L (21.0-28.0); ABG OXYGEN SATURATION 98.6 % (94.0-98.0); ABG PCO2 34 mmHg (32-45); ABG PH 7.497 (7.350-7.450); CARBON MONOXIDE 0.1 % (0.5-1.5); PO2, ARTERIAL BG 221.2 mmHg (83.0-108.0); TEMPERATURE, CELSIUS BG 37.0 CELSIUS (35.5-37.0); VENT MODE, BG SIMV (ROOM AIR)
[2025-03-12 05:02] LABS: ABG BASE EXCESS 2.5 mmol/L (-2.0-3.0); ABG HCO3 26.0 mmol/L (21.0-28.0); ABG OXYGEN SATURATION 98.1 % (94.0-98.0); ABG PCO2 36 mmHg (32-45); ABG PH 7.477 (7.350-7.450); CARBON MONOXIDE 0.9 % (0.5-1.5); PO2, ARTERIAL BG 128.1 mmHg (83.0-108.0); TEMPERATURE, CELSIUS BG 37.0 CELSIUS (35.5-37.0); VENT MODE, BG SIMV (ROOM AIR)
[2025-03-12 05:43] LABS: IMMATURE GRANULOCYTE ABSOLUTE 0.12 K/uL (0-1); NUCLEATED RED BLOOD CELLS 3.2 % (0.0-0.19); PLATELET COUNT (AUTO) 23 K/uL (130-400); RED BLOOD CELL COUNT(AUTO) 2.97 MIL/uL (4.00-5.50); RED CELL DISTRIBUTION WIDTH 17.7 % (11.0-15.5); WHITE BLOOD COUNT (AUTO) 7.9 K/uL (4.8-10.8)
[2025-03-12 05:58] LABS: INR 1.69 (0.85-1.15)
[2025-03-12] MEDS ORDERED: DEXTROSE 5%-WATER 1,000 ML IV PRN (06:00)
[2025-03-12 06:33] LABS: CREATININE 3.2 mg/dL (0.5-1.0); GLOMERULAR FILTR. RATE CALC 16.0 mL/min (>90); GLUCOSE,RANDOM 176.0 mg/dL (70-105); SODIUM SERUM 149.0 mmol/L (136-145); TOTAL PROTEIN, SERUM 4.5 g/dL (6.0-8.3); UREA NITROGEN, BLOOD 52.0 mg/dL (7-18)
[2025-03-12 06:55] LABS: ASPARTATE AMINOTRANSFERASE 5742.0 U/L (10-37); CREATINE KINASE, TOTAL 4964.0 U/L (21-232)
[2025-03-12] MEDS: NA ZIRCON CYCLOSIL(LOKELMA 10GM) PO ONE (09:08)
--- NOTE | 2025-03-12 09:13 | PN ---
[facility] PROGRESS NOTE Date Patient Seen: Mar 12, 2025 Time of Visit: 09:08 Interval History: No acute events overnight , hemodynamically she has remained on 3 pressors with MAP in the 80s, Impella support is at P 7 , she is now oliguric and renal function is worsening. Renal has been consulted. She remains intubated and sedated. Overall prognosis remains guarded. Physical Examination: GENERAL: Intubated, sedated with generalized edema] EYES: [PERRLA, EOMI, conjunctiva and sclera normal.] NECK: [Supple without JVD. There is no tenderness, lymphadenopathy, or masses. No thyromegaly. Normal carotid upstrokes without bruits.] LUNGS: [Ventilated breath sounds bilaterally. With crackles over lower lobes. No wheezes, or rhonchi.] HEART: [Normal rate and rhythm. Normal S1 and S2 without murmurs, gallop or rub.] VASC: [Peripheral pulses palpable and thready over LLE.] ABD: [Bowel sounds normal, soft, nontender, no masses, no organomegaly. No audible bruits.] : [Not examined] LYMPH: [No lymphadenopathy noted.] EXT: [No clubbing, cyanosis or edema. Right BKA with large edematous blistering of her stump] SKIN: [No rashes or lesions noted.] NEURO: [Awake, alert, and oriented x0. Gag reflex and DTR intact.] Laboratory: [ ] Hematology Labs: Test 03/12/25 05:00 03/11/25 20:53 03/10/25 21:53 Range/Units White Blood Count 7.9 4.8-10.8 K/uL Red Blood Count 2.97 L 4.00-5.50 MIL/uL Hemoglobin 9.0 L 12.0-16.0 g/dL Hematocrit 26.1 L 36-48 % Mean Corpuscular Volume 87.9 79-99 fL Mean Corpuscular Hemoglobin 30.3 27.0-33.0 pg Mean Corpuscular Hemoglobin Concent 34.5 32.0-36.0 g/dL Red Cell Distribution Width 17.7 H 11.0-15.5 % Platelet Count 23 #L 130-400 K/uL Mean Platelet Volume 12.1 H 7.5-10.5 fL Immature Granulocyte % (Auto) 1.5 H 0-1 % Neutrophils (%) (Auto) 86.2 H 40.0-77.0 % Lymphocytes (%) (Auto) 7.7 L 21.0-51.0 % Monocytes (%) (Auto) 3.7 3.0-13.0 % Eosinophils (%) (Auto) 0.3 0.0-8.0 % Basophils (%) (Auto) 0.6 0.0-5.0 % Neutrophils # (Auto) 6.8 1.8-7.7 K/uL Lymphocytes # (Auto) 0.6 L 1.0-4.8 K/uL Monocytes # (Auto) 0.3 0.1-1.0 K/uL Eosinophils # (Auto) 0.02 0.00-0.70 K/uL Basophils # (Auto) 0.05 0.00-0.20 K/uL Absolute Immature Granulocyte (auto 0.12 0-1 K/uL Nucleated Red Blood Cells 3.2 H 0.0-0.19 % White Cell Morphology Comment See comments Chemistry Labs: Test 03/12/25 05:00 03/11/25 05:10 Range/Units Sodium Level 149 H 136-145 mmol/L Potassium Level 5.4 H 3.5-5.1 mmol/L Chloride Level 108 101-111 mmol/L Carbon Dioxide Level 26 21-32 mmol/L Blood Urea Nitrogen 52 H 7-18 mg/dL Creatinine 3.2 H 0.5-1.0 mg/dL Glomerular Filtration Rate Calc 16 >90 mL/min Random Glucose 176 H 70-105 mg/dL Total Calcium 9.3 8.5-10.1 mg/dL Magnesium Level 2.10 1.80-2.40 mg/dL Total Bilirubin 11.0 H 0.2-1.0 mg/dL Aspartate Amino Transf (AST/SGOT) 5742 *H 10-37 U/L Alanine Aminotransferase (ALT/SGPT) 1752 #*H 12-78 U/L Alkaline Phosphatase 116 # 50-136 U/L Total Creatine Kinase 4964 #*H 21-232 U/L Total Protein 4.5 L 6.0-8.3 g/dL Albumin 2.9 L 3.5-5.0 g/dL Phosphorus Level 7.8 H 2.5-4.9 mg/dL Coagulation Labs: Test 03/12/25 05:00 Range/Units Prothrombin Time 17.0 H 9.6-11.6 SEC Prothromb Time International Ratio 1.69 H 0.85-1.15 Activated Partial Thromboplast Time 39.0 H 26.3-35.5 SEC Fibrinogen 247 180-350 mg/dL Diagnostics / Radiology: [Copy/Paste Echos/Imaging Report here] Impression and Plan: 1. Unstable Angina s/p 4vCABG on 03/08/2025 2. Remote anterior wall myocardial infarction July 2024 complicated by cardiogenic shock requiring Impella support for PCI with subsequent ischemic leg requiring youkd-jwo-gzqj amputation 3. CAD status post stenting of the proximal LAD proximal circumflex and mid c ircumflex artery 4. Diabetes mellitus type 2 5. Dyslipidemia 6. Hypertension 7. Cardiogenic Shock 8. Anemia] # Severe 2v CAD: The patient presented with chest pain ACS has been ruled out. Lexiscan stress test revealed anterior ischemia 2D echocardiogram revealed a hypokinetic anteroseptal and anterolateral wall. LVEF 40-45% (unchanged from prior July 2024) Coronary angiogram on 03/01/2025 revealed severe two-vessel CAD. CV surgery was consulted and pt is s/p 4v CABG (03-08-25) Following the procedure patient became hypotensive while in the OR, and pt was found to have a nonfunctional GOLDSTEIN , Impella was inserted for MCS and SVG to LAD was placed Current grafts ( SVG-LAD , SVG -Diag, SVG-LPLB, and SVG-RCA) Cardiogenic shock requiring 3 pressors on Impella support at P7 Transfuse PRBC to a HGb>7. Hb 9.4 hr. 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 Hematology has been consulted. CXR with b/l pulmonary edema. Recommend to continue IV lasix gtt at 5mg/hr Strict I/Os and daily weights. Keep on telemetry and monitor/replace lytes as needed. Defer BB at this time Continue Asa 81mg qd. Hold statins , due to LFT elevation Rest of care by CV surgery # Cardiogenic shock: S/p 4vCABG complicated by a nonfucntional GOLDSTEIN. INTERMACS 2 s/p ( SVG-LAD , SVG -Diag, SVG-LPLB, and SVG-RCA) on 03/08/2025 S/p PRBC and cryo transfusion. Impella support at p6 Monitor H&H and access site. Keep on telemetry and monitor/replace lytes as needed. Continue IV lasix at 5mg/hr with strict I/Os and daily weights. Goal net negative 1-2L/day Chest tube output 500 ml overnight TTE preop LVEF 40-45% with anteroseptal hypokiensis. 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 . Thank you for this consult , cardiology will continue to follow along ,post operatively Jefry Carrasco MD ATTESTATION BY PHYSICIAN I have seen and examined the patient, reviewed the above documentation, participated in medical decision making, made necessary modifications, and agree with the treatment plan as documented by my mid-level provider above. MD JESSY Catalan JAMES R MD Mar 12, 2025 09:13
[2025-03-12 09:21] LABS: IMMATURE GRANULOCYTE ABSOLUTE 0.14 K/uL (0-1); NUCLEATED RED BLOOD CELLS 3.0 % (0.0-0.19); PLATELET COUNT (AUTO) 19 K/uL (130-400); RED BLOOD CELL COUNT(AUTO) 2.85 MIL/uL (4.00-5.50); RED CELL DISTRIBUTION WIDTH 17.7 % (11.0-15.5); WHITE BLOOD COUNT (AUTO) 8.3 K/uL (4.8-10.8)
--- NOTE | 2025-03-12 09:24 | PN ---
[facility] PROGRESS NOTE Date of Service: Mar 12, 2025 Time of Service: 09:[address] Agustin SUBJECTIVE: [ ] admission date: 02/24/25 PCP: Agnieszka Shi DO chief complaint: Chest pain Primary benefits sales consultant: Dr Jefry Osorio This is a 59-year-old female presents in ED with chief complaints of chest pain. Onset started this morning at 2:00 a.m. patient was awaken with c hest pain. Reports she has been having chest pain for a week. Location midsternal does not radiate,location midsternal stated the pain on arrival was 10/10 on pain scale. aggravated none: alleviating factors: none. Patient denies palpitation, dizziness, shortness for breath. 12 lead EKG on arrival showed heart rate [address] depression in the lateral Leads. As per ED physician changes in V5 and V6 were not seen in December 2024. Presence of LVH noted anterior STT wave changes were also. ER initiated heparin drip. Was given Full dose Aspirin and Morphine 2 mg IV x1. Troponin 1st set was negative. 02/25/25 patient was seen earlier patient reports she had chest pain overnight 3:00 a.m. patient was given nitroglycerin: continue on Heparin drip; Echo pending no chest pain at this time. she is fully alert oriented x3. 02/26/25 2D echocardiogram revealed a hypokinetic anteroseptal and anterolateral wall. LVEF 40-45%, the patient denies any cardiac symptoms or chest pain. Dr Osorio recommendations: lexiscan in am medical management for now ASA 81 mg daily , Prasugrel 10 mg daily ,Atorvastatin 40 mg daily, Imdur 30 mg daily changed Toprol XL to 25 mg daily patient is fully awake alert oriented x3. out of bed to chair with meals. Denied chest pain palpitation dyspnea. 02/27/25 patient is seen and examined patient underwent Lexiscan pending results. We will continue to monitor patient closely. She is asleep and waking per verbal stimuli primary nurse reports she was having GI problems post Lexiscan. 02/28/25 s/p Lexiscan Reversible large defect in the anterior, septal lucas. TID 1.19. LVEF 39%. Dr Osorio scheduled the patient for Left Heart cath tomorrow. The patient denies chest pain palpitation dyspnea. 03/01/25 patient was evaluated this continues without chest pain or palpitations patient had a Lexiscan stress test is PCI this after the. Patient NPO after breakfast. 03/02 patient was seen by nurse practitioner and physician during rounding in room 429. Patient is s/p left heart catheterization 03/01/[address] Jefry osorio and at this moment he is recommending cardiovascular surgeon for possible CABG evaluation. Once patient will be medically stable we will consult [facility] for evaluation. Continue one-to-one sitter for now. Continue to monitor patient in the meantime. A.m. labs 03/03 patient was seen by nurse practitioner physician during rounding. Patient was seen by cardiovascular surgeon and is pending CABG as per note at the end of this week. As per RN patient's blood pressure has been on lower side. We will order midodrine 10 mg p.r.n. t.i.d. for systolic less than 100. As per cardi ologist Dr. Jefry osorio who was rounding okay with the above-stated medicine. We will continue to monitor patient in the meantime. A.m. labs. 03/04 patient was seen by nurse practitioner and physician during rounding. Patient was evaluated by the cardiovascular surgeon and he is came to perform CABG once the patient will be off Effient for 5 to 7 days. Last dose that was administered to the patient of Effient 10 mg was given on 03/01/2025 at 12:16 p.m. we will continue to monitor patient in the meantime. A.m. labs 03/05 patient was seen by nurse practitioner and physician during rounding in room 429. Patient is pending CABG once 5 to 7 days of Effient on hold we will be completed. WBC 7.3. Electrolyte replaced per protocol. Patient denies any shortness of breath, chest pain, nausea, vomiting or any other discomfort at this moment. We will continue to monitor patient in the meantime. A.m. labs 03/06/2025 - patient is seen in room 429, patient had an episode of intermittent chest pain on exertion when she went to the washroom. Chest pain relieved with sublingual nitro, troponin and EKG were ordered which were normal. Ordered supplier quality cortisol, we will follow up with the lab. Patient to be scheduled for CABG. Heart rate currently on the lower side around 50s - 60s. Patient is asymptomatic otherwise, we will follow the patient closely. 03/07 patient was seen by nurse practitioner physician during rounding in room 429. Patient is pending CABG by cardiovascular surgeon possibly tomorrow 2024. During evaluation patient denies any shortness of breath, chest pain, nausea, vomiting or any other discomfort. Patient will receive a dose of potassium. We will continue to monitor patient in the meantime. A.m. labs 03/08 patient was seen by nurse practitioner and physician during rounding in room 213. Patient is s/p CABG. No family members at the bedside at this momen t. We will continue to monitor patient in the meantime. A.m. labs 03/09 was seen by nurse practitioner and physician during rounding in room 213. Patient is s/p CABG day 1. Due to hypotension and cardiogenic shock Impella was placed. Chest tube output within 24 hours 2 L. currently patient is on three pressor support requiring mechanical ventilation support. Peak 55, peep eight 50% O2. Urine output 850 cc. No family members at the bedside. We will continue CV surgery recommendation We will continue to monitor patient in the meantime. A.m. labs 03/10 patient was seen by nurse practitioner and physician during rounding in ro om 213. Patient continues to be intubated. Chest tube is draining about 10 to 20 mL/hour. Urine output about 5 to 10 mL/hour. Patient was placed on Lasix drip 10 milligrams/hour. Nephrology consulted for ARIADNE. Patient continues to be on epi, levo and vasopressor. Patient also experience a temperature of 103 last night blood culture were ordered patient was placed on Zosyn for now. We will continue to monitor patient in the meantime. A.m. 03/11 patient was seen by nurse practitioner physician during rounding in room 213. Patient continues to be intubated. Rate 18 Peak 60 tidal volume 580 peep eight 0 2% at 75%. Total output from the chest tube on the right within 24 hours was 550. There is a new left chest tube that was put in yesterday 03/10/2025 and total output as of now it is 820. Urine outpu 800t 150 bypass 24 hours. Patient continues to be on Lasix drip 10 milligrams/hour. Continue epi, levo, vasopressor and [place]os[place]. [place] 26290 ALT 2651 CK 3243. We will continue to monitor patient in the meantime. A.m. labs 03/12 patient was seen by CLIENT SERVICES REPRESENTATIVE and physician. Patient is still intubated. Urine output less than 5 mL per hour. Lamp Cleaner was consulted concern for HIT. Platelets 23. Patient continues to be on Lasix 10 milligrams/hour. Continue epi, levo. Patient was weaned off of vasopressor. Left chest tube drain about 30 mL in the last 24 hours. Right pleural chest drain about 500 mL in the past 24 hours. Patient is pending JOSIE and chest x-ray today. No family members at the bedside. Continue Zosyn. WBC 7.9. Bilirubin 11 AST 5742 ALT 1752 CK 4964. Final urine culture negative. Blood culture no growth in last 24 hours. Continue to monitor patient. A.m. labs REVIEW OF SYSTEMS: unable to perform PHYSICAL EXAM: GENERAL: critically ill intubated HEENT: Sclera non icteric, moist mucosa NECK: Supple, no JVD, trachea midline , impella 5.5 LUNGS: diminished breath sounds bilaterally. No wheezes HEART: Regular rate and rhythm. Normal S1 and S2, without murmurs, chest tube in place ABD: Abdomen soft, nontender. Bowel sounds present EXT: No clubbing cyanosis or edema rt BKA NEURO: Deferred. Vital Signs (last 8hr) Date Time Temp Pulse Resp B/P (MAP) Pulse Ox O2 Delivery O2 Flow Rate FiO2 03/12/25 08:15 80 18 113/67 (82) 79 03/12/25 08:08 60 03/12/25 08:00 81 18 114/68 (83) 91 03/12/25 08:00 99.7 Ventilator 60 03/12/25 07:45 79 20 110/66 (81) 91 03/12/25 07:30 82 20 111/67 (82) 91 03/12/25 07:15 83 20 113/67 (82) 91 03/12/25 07:00 82 11 112/67 (82) 91 03/12/25 06:52 83 60 03/12/25 06:00 82 18 120/69 (86) 97 60 03/12/25 05:45 82 18 118/67 (84) 97 03/12/25 05:30 79 18 117/67 (84) 97 03/12/25 05:15 80 18 114/68 (83) 97 03/12/25 05:00 80 20 110/67 (81) 97 60 03/12/25 04:45 83 18 116/68 (84) 97 03/12/25 04:30 81 18 101/63 (76) 97 03/12/25 04:15 79 18 91/60 (70) 97 03/12/25 04:00 97 Ventilator+ 60 03/12/25 04:00 99.3 81 18 101/64 (76) 97 60 03/12/25 04:00 60 03/12/25 03:45 81 18 102/65 (77) 97 03/12/25 03:42 86 60 03/12/25 03:30 83 18 111/68 (82) 97 03/12/25 03:15 84 18 106/65 (79) 97 03/12/25 03:00 83 18 105/65 (78) 97 60 03/12/25 02:45 83 18 115/69 (84) 97 03/12/25 02:30 84 18 105/65 (78) 97 03/12/25 02:15 85 18 123/71 (88) 97 03/12/25 02:00 84 18 117/69 (85) 97 60 03/12/25 01:45 85 18 122/70 (87) 97 03/12/25 01:30 84 20 122/70 (87) 97 LABS: Laboratory: Test 03/12/25 05:00 03/11/25 20:53 03/11/25 05:10 03/10/25 21:53 Range/Units White Blood Count 7.9 4.8-10.8 K/uL Red Blood Count 2.97 L 4.00-5.50 MIL/uL Hemoglobin 9.0 L 12.0-16.0 g/dL Hematocrit 26.1 L 36-48 % Mean Corpuscular Volume 87.9 79-99 fL Mean Corpuscular Hemoglobin 30.3 27.0-33.0 pg Mean Corpuscular Hemoglobin Concent 34.5 32.0-36.0 g/dL Red Cell Distribution Width 17.7 H 11.0-15.5 % Platelet Count 23 #L 130-400 K/uL Mean Platelet Volume 12.1 H 7.5-10.5 fL Immature Granulocyte % (Auto) 1.5 H 0-1 % Neutrophils (%) (Auto) 86.2 H 40.0-77.0 % Lymphocytes (%) (Auto) 7.7 L 21.0-51.0 % Monocytes (%) (Auto) 3.7 3.0-13.0 % Eosinophils (%) (Auto) 0.3 0.0-8.0 % Basophils (%) (Auto) 0.6 0.0-5.0 % Neutrophils # (Auto) 6.8 1.8-7.7 K/uL Lymphocytes # (Auto) 0.6 L 1.0-4.8 K/uL Monocytes # (Auto) 0.3 0.1-1.0 K/uL Eosinophils # (Auto) 0.02 0.00-0.70 K/uL Basophils # (Auto) 0.05 0.00-0.20 K/uL Absolute Immature Granulocyte (auto 0.12 0-1 K/uL Nucleated Red Blood Cells 3.2 H 0.0-0.19 % Prothrombin Time 17.0 H 9.6-11.6 SEC Prothromb Time International Ratio 1.69 H 0.85-1.15 Activated Partial Thromboplast Time 39.0 H 26.3-35.5 SEC Fibrinogen 247 180-350 mg/dL Blood Gas Specimen Type Arterial Arterial Blood pH 7.477 H 7.350-7.450 Arterial Blood Partial Pressure CO2 36 32-45 mmHg Arterial Blood Partial Pressure O2 128.1 H 83.0-108.0 mmHg Arterial Blood HCO3 26.0 21.0-28.0 mmol/L Arterial Blood Oxygen Saturation 98.1 H 94.0-98.0 % Arterial Blood Base Excess 2.5 -2.0-3.0 mmol/L Hemoglobin (Blood Gas) 9.7 L 12.0-16.0 g/dL Sodium (Blood Gas) 143 136-145 MMOL/L Bedside Potassium (Blood Gas) 5.2 H 3.4-4.5 MMOL/L Bedside Chloride (Blood Gas) 104 98-107 MMOL/L Bedside Glucose (Blood Gas) 186 H 65-95 MG/DL Bedside Ionized Calcium (Blood Gas) 1.15 1.15-1.33 MMOL/L Bedside Lactic Acid (Blood Gas) 7.33 *H 0.36-0.75 MMOL/L Blood Gas Temperature 37.0 35.5-37.0 CELSIUS Blood Gas Respiration Rate 18.0 min. Blood Gas Vent Mode SIMV ROOM AIR FiO2 60.0 % Blood Gas Tidal Volume 550 ml Blood Gas PEEP 8 cm H2O Blood Gas Specimen Comment TOMMY LOPEZ NICOLETTE Sodium Level 149 H 136-145 mmol/L Potassium Level 5.4 H 3.5-5.1 mmol/L Chloride Level 108 101-111 mmol/L Carbon Dioxide Level 26 21-32 mmol/L Blood Urea Nitrogen 52 H 7-18 mg/dL Creatinine 3.2 H 0.5-1.0 mg/dL Glomerular Filtration Rate Calc 16 >90 mL/min Random Glucose 176 H 70-105 mg/dL Total Calcium 9.3 8.5-10.1 mg/dL Magnesium Level 2.10 1.80-2.40 mg/dL Total Bilirubin 11.0 H 0.2-1.0 mg/dL Aspartate Amino Transf (AST/SGOT) 5742 *H 10-37 U/L Alanine Aminotransferase (ALT/SGPT) 1752 #*H 12-78 U/L Alkaline Phosphatase 116 # 50-136 U/L Total Creatine Kinase 4964 #*H 21-232 U/L Total Protein 4.5 L 6.0-8.3 g/dL Albumin 2.9 L 3.5-5.0 g/dL White Cell Morphology Comment See comments Phosphorus Level 7.8 H 2.5-4.9 mg/dL Test 03/10/25 10:20 Range/Units Urine Color DARK-BROWN YELLOW Urine Appearance TURBID CLEAR Urine pH 6.0 5.0-8.0 Urine Specific [place] 1.021 1.001-1.031 Urine Protein 100 H NEGATIVE mg/dL Urine Glucose (UA) NEGATIVE NEGATIVE mg/dL Urine Ketones NEGATIVE NEGATIVE mg/dL Urine Occult Blood LARGE H NEGATIVE Urine Nitrate NEGATIVE NEGATIVE Urine Bilirubin NEGATIVE NEGATIVE mg/dL Urine Urobilinogen 0.2 0.2-1.0 mg/dL Urine Leukocyte Esterase NEGATIVE NEGATIVE Martin/uL Urine RBC 6-10 H 0-1 /HPF Urine WBC 0-1 0-1 /HPF Urine Squamous Epithelial Cells RARE 0-2 /HPF Urine Non-Squamous Epithelial Cells 2 0-2 /HPF Urine Amorphous Crystals (Auto) RARE None Seen /LPF Urine Bacteria FEW None Seen /HPF Urine Yeast RARE None Seen /HPF Urine Random Creatinine 44.29 30-135 mg/dL Urine Random Sodium 53 40-220 mmol/l Current Medications Medications (Trade) Dose Ordered Sig/Toby Route PRN Reason Start Time Stop Time Status Last Admin Dose Admin Acetaminophen (TYLenol 325MG TAB) 650 mg Q4H PRN PO TEMPERATURE GREATER THAN 101.5 02/24/25 07:00 03/26/25 06:59 03/01/25 19:06 650 MG Acetaminophen (TYLenol 325MG TAB) 650 mg Q4H PRN PO MILD PAIN (1-3) 03/02/25 02:30 04/01/25 02:29 03/04/25 10:39 650 MG Acetaminophen (TYLenol 325MG TAB) 650 mg Q4H PRN PO Temp >38.3C(AFTER EXTUBATION) 03/08/25 09:30 03/08/25 09:29 DC Acetaminophen (TYLenol 325MG TAB) 650 mg Q6H PRN PO MILD PAIN (1-3) 03/08/25 09:30 03/08/25 09:36 DC Acetaminophen (TYLenol 650MG SUPPOSITORY) 650 mg Q4H PRN RC Temp >38.3C WHILE INTUBATED 03/08/25 09:30 04/07/25 09:29 Acetaminophen (acetaMINOPHEN) 1,000 mg Q6H6 IV 03/08/25 13:00 03/09/25 12:59 DC 03/09/25 12:00 1,000 MG Albumin Human 50 ml @ 999 mls/hr Q6H IV 03/08/25 17:00 03/09/25 11:02 DC 03/09/25 10:10 999 MLS/HR Albumin Human 250 ml @ 0 mls/hr AD IV 03/08/25 19:00 03/10/25 06:44 DC 03/09/25 08:36 1,200 MLS/HR Albumin Human 250 ml @ 0 mls/hr AD PRN IV IF HEMODYNAMICALLY UNSTABLE 03/08/25 09:30 03/08/25 18:48 DC 03/08/25 18:48 1,200 MLS/HR Albumin Human 500 ml @ 0 mls/hr AD IV 03/08/25 20:00 03/09/25 15:49 DC 03/09/25 11:35 1,200 MLS/HR Albumin Human 500 ml @ 0 mls/hr AD IV 03/09/25 22:00 6/29/25 21:59 03/10/25 18:06 999 MLS/HR Aminocaproic Acid 25465 mg/Sodium Chloride 310 ml @ 25 mls/hr AD IV 03/08/25 09:30 03/08/25 09:31 DC Aminocaproic Acid 12128 mg/Sodium Chloride 480 ml @ 0 mls/hr AD PRN IV BLEEDING CONTROL 03/08/25 07:00 04/07/25 06:59 Amiodarone HCl 360 mg/Dextrose 207.2 ml @ 33.3 mls/hr AD IV 03/08/25 13:00 03/08/25 12:52 DC Amiodarone HCl 360 mg/Dextrose 207.2 ml @ 33.3 mls/hr AD IV 03/08/25 13:00 03/08/25 12:52 DC Amiodarone HCl 540 mg/Dextrose 310.8 ml @ 16.7 mls/hr [id number] STAT IV 03/08/25 12:45 03/08/25 20:15 DC 03/08/25 16:44 16.7 MLS/HR Aspirin (Aspirin 81mg Chew Tab) 81 mg DAILY PO 02/25/25 09:00 03/01/25 12:33 DC 02/28/25 09:18 81 MG Aspirin (Aspirin 81mg Chew Tab) 81 mg DAILY PO 03/02/25 09:00 04/01/25 08:59 03/10/25 08:16 81 MG Aspirin (Aspirin 81mg Ec Tab) 81 mg DAILY PO 02/24/25 09:00 02/24/25 08:52 DC Atorvastatin Calcium (LIPItor 20MG) 20 mg HS PO 02/24/25 21:00 02/24/25 08:52 DC Atorvastatin Calcium (LIPItor 40MG) 40 mg HS PO 02/24/25 21:00 03/12/25 08:25 DC 03/11/25 20:11 40 MG Calcium Gluconate 1 gm/Sodium Chloride 60 ml @ 200 mls/hr AD PRN IV HYPOCALCEMIA 03/08/25 09:30 04/07/25 09:29 03/12/25 05:28 200 MLS/HR Cefazolin Sodium (Ancef) 2 gm ONCALL IVP 03/07/25 22:00 03/09/25 21:59 DC Cefazolin Sodium (Ancef) 2 gm Q8H IVPB 03/08/25 14:30 03/09/25 06:31 DC 03/09/25 06:06 2 GM Citalopram Hydrobromide (CeleXA 20MG TAB) 10 mg DAILY PO 02/25/25 09:00 03/27/25 08:59 03/10/25 08:16 10 MG Dexmedetomidine/ Sodium Chloride (PRECEdex 400MCG/ 100ML-NS) 400 mcg PROTOCOL IV 03/08/25 09:30 03/09/25 09:29 DC Dextrose 1,000 ml @ 0 mls/hr Q0M PRN IV OTHER [SEE ORDER COMMENTS] 03/12/25 06:00 04/09/25 23:29 Dextrose 1,000 ml @ 50 mls/hr Q20H IV 03/10/25 23:30 03/12/25 05:51 DC 03/11/25 19:15 50 MLS/HR Dextrose (D50w) 50 ml AD PRN IV HYPOGLYCEMIA PROTOCOL 03/01/25 12:30 03/09/25 15:51 DC Dextrose (D50w) 50 ml AD PRN IV HYPOGLYCEMIA PROTOCOL 03/08/25 09:30 04/07/25 09:29 03/10/25 00:44 50 ML Docusate Sodium (COLace 100MG CAP) 100 mg BID PO 03/03/25 21:00 03/03/25 16:22 DC Docusate Sodium (COLace 100MG CAP) 100 mg BID PO 03/08/25 21:00 04/07/25 20:59 03/12/25 09:11 100 MG Epinephrine HCl 10 mg/Sodium Chloride 250 ml @ 0 mls/hr AD PRN IV TITRATE 03/08/25 07:00 04/07/25 06:59 03/11/25 19:49 8.5 MLS/HR Epinephrine HCl 10 mg/Sodium Chloride 250 ml @ 0 mls/hr AD PRN IV POST-OP CARDIOVASCULAR ORDERS 03/08/25 09:30 03/08/25 09:30 DC Famotidine (Pepcid 20mg Vial) 20 mg BID IV 03/08/25 21:00 03/10/25 20:59 DC 03/10/25 08:16 20 MG Famotidine (Pepcid 20mg Tab) 20 mg BID PO 02/24/25 09:00 03/09/25 10:34 DC 03/07/25 20:29 20 MG Furosemide (LASix 20MG TAB) 20 mg Q12H PO 03/10/25 09:00 03/10/25 16:28 DC Furosemide (LASix 20MG VIAL) 20 mg Q12H IV 03/09/25 09:00 03/10/25 08:59 DC 03/10/25 01:15 20 MG Furosemide 100 mg/ Sodium Chloride 100 ml @ 0 mls/hr PROTOCOL IV 03/10/25 08:00 04/09/25 07:59 03/12/25 05:11 10 MLS/HR Glucagon (Glucagon 1mg Kit) 1 mg AD PRN IM HYPOGLYCEMIA PROTOCOL 03/01/25 12:30 03/09/25 15:51 DC Glucagon (Glucagon 1mg Kit) 1 mg AD PRN IM HYPOGLYCEMIA PROTOCOL 03/08/25 09:30 04/07/25 09:29 Heparin Sodium/ Dextrose 250 ml @ 0 mls/hr PROTOCOL PRN IV PROTOCOL 02/24/25 06:00 02/25/25 05:59 DC 02/25/25 01:09 7.36 MLS/HR Insulin Human Regular (humuLIN R 100 UNIT/ML 3ML) INSULIN SLIDING SCAL... ACHS SQ 02/24/25 11:30 03/08/25 09:15 DC 03/06/25 20:24 6 UNIT Insulin Human Regular 100 unit/ Sodium Chloride 100 ml @ 0 mls/hr AD IV 03/08/25 09:30 03/10/25 09:29 DC 03/09/25 16:20 2 MLS/HR Isosorbide Mononitrate (Imdur 30mg Sr) 30 mg DAILY PO 02/24/25 09:00 03/06/25 11:46 DC 03/06/25 08:13 30 MG Isosorbide Mononitrate (Imdur 30mg Sr) 60 mg DAILY PO 03/07/25 09:00 03/08/25 09:15 DC 03/07/25 08:47 60 MG Ketorolac Tromethamine (ketOROlac troMETHamine) 15 mg Q6H PRN PO MODERATE PAIN (4-6) 03/03/25 18:00 03/03/25 16:22 DC Lactulose (Constulose 20gm/ 30ml Udcup) 20 gm BID PRN PO CONSTIPATION 03/08/25 09:30 04/07/25 09:29 Magnesium Hydroxide (Milk Of Magnesium 30ml) 30 ml DAILY PRN PO CONSTIPATION 03/08/25 09:30 04/07/25 09:29 Magnesium Sulfate 50 ml @ 12.5 mls/hr AD PRN IV MAG LEVEL LESS THAN 2.0 03/08/25 09:30 04/07/25 09:29 Magnesium Sulfate 50 ml @ 0 mls/hr PROTOCOL PRN IV low mag level 02/24/25 09:30 03/09/25 15:49 DC Metoprolol Succinate (TopROL XL) 12.5 mg DAILY PO 02/24/25 09:00 03/06/25 18:49 DC 03/03/25 08:36 12.5 MG Midodrine (PROAMatine 5 MG TABLET) 10 mg TID PO 03/03/25 14:00 03/08/25 09:15 DC 03/07/25 14:38 10 MG Morphine Sulfate (morPHINE 2MG SYG) 0.5 mg Q2H PRN IV MODERATE PAIN (4-6) 03/08/25 09:30 03/09/25 09:29 DC Morphine Sulfate (morPHINE 2MG SYG) 1 mg Q2H PRN IV SEVERE PAIN (7-10) 03/08/25 09:30 03/09/25 09:29 DC Nitroglycerin (Nitrostat) 0.4 mg Q5M PRN SL CHEST PAIN 02/24/25 06:00 03/06/25 08:51 DC 03/06/25 08:50 0.4 MG Nitroglycerin/ Dextrose 0 ml @ 0 mls/hr AD IV 03/08/25 09:30 03/11/25 09:29 DC Norepinephrine Bitartrate 250 ml @ 0 mls/hr AD PRN IV TITRATE 03/08/25 07:00 03/08/25 23:13 DC Norepinephrine Bitartrate (Norepineph 16 Mg/250ml NS Premix) PER PROTOCOL PROTOCOL IV 03/08/25 23:30 04/07/25 23:29 03/11/25 19:17 16 MG Norepinephrine Bitartrate 8 mg/ Dextrose 250 ml @ 0 mls/hr AD PRN IV POST-OP CARDIOVASCULAR ORDERS 03/08/25 09:30 03/08/25 09:30 DC Ondansetron HCl (zoFRAN 4MG INJ) 4 mg Q6H PRN IV NAUSEA/VOMITING 03/08/25 09:30 04/07/25 09:29 Phytonadione 10 mg/Sodium Chloride 51 ml @ 100 mls/hr Q24H IVPB 03/10/25 01:00 03/12/25 01:31 DC 03/12/25 00:27 100 MLS/HR Piperacillin Sod/ Tazobactam Sod (Zosyn 3.375gm+NS 50ml) 3.375 gm Q8H IVPB 03/10/25 10:30 03/20/25 10:29 03/12/25 02:01 3.375 GM Potassium Phosphate 250 ml @ 42 mls/hr AD PRN IV LOW PHOS LEVEL 03/08/25 09:30 04/07/25 09:29 03/09/25 08:23 42 MLS/HR Potassium Chloride 100 ml @ 50 mls/hr AD PRN IV POTASSIUM PROTOCOL 02/24/25 09:30 03/08/25 09:15 DC Potassium Chloride 100 ml @ 100 mls/hr AD PRN IV POTASSIUM PROTOCOL 02/26/25 11:30 02/27/25 09:49 DC Potassium Chloride 100 ml @ 100 mls/hr AD PRN IV HYPOKALEMIA 03/08/25 09:30 04/07/25 09:29 03/09/25 05:37 100 MLS/HR Potassium Chloride (K-Dur/Klor-Con 20meq) 20 meq AD PRN PO POTASSIUM PROTOCOL 02/26/25 11:30 03/08/25 09:15 DC 03/07/25 05:23 20 MEQ Potassium Chloride (KCl 10% Elixir 20meq/15ml) 20 meq AD PRN PO POTASSIUM PROTOCOL 02/26/25 11:30 03/08/25 09:15 DC Prasugrel (Effient 10mg) 10 mg DAILY PO 02/25/25 09:00 03/01/25 12:54 DC 02/28/25 09:18 10 MG Propofol 100 ml @ 0 mls/hr AD PRN IV SEDATION 03/08/25 09:30 03/12/25 09:29 Prothrombin Complex Concent (Human) (Kcentra 500 Unit Kit) 500 unit ONCE IV 03/10/25 12:00 03/10/25 12:24 DC Sodium Bicarbonate 25 meq/Dextrose 1,000 ml @ 0 mls/hr Q0M PRN IVP OTHER [SEE ORDER COMMENTS] 03/10/25 22:30 04/09/25 22:29 03/10/25 23:31 11.6 MLS/HR Sodium Bicarbonate (Sodium Bicarb 50meq 50ml Vial) 50 meq AD PRN IV OTHER[SEE DOSING INSTRUCTIONS] 03/08/25 09:30 03/11/25 09:29 DC 03/10/25 04:56 100 MEQ Sodium Chloride 500 ml @ 0 mls/hr AD IV 03/08/25 09:30 04/07/25 09:29 03/11/25 02:21 3 MLS/HR Sodium Chloride 1,000 ml @ 10 mls/hr ONCE IV 03/08/25 09:30 03/09/25 09:29 DC Sodium Chloride 1,000 ml @ 150 mls/hr Q6H40M IV 03/01/25 12:30 03/01/25 16:29 DC 03/01/25 19:04 150 MLS/HR Sodium Chloride (NS 50ml) 50 ml AD IV 03/10/25 10:30 03/10/25 16:27 DC Sodium Chloride (NS Flush 10ml) 10 ml Q8H PRN IVP IV LINE FLUSH 03/08/25 09:30 04/07/25 09:29 Tramadol HCl (UltRAM) 50 mg Q6H PRN PO MODERATE PAIN (4-6) 03/08/25 09:30 03/13/25 09:29 Tramadol HCl (UltRAM) 100 mg Q6H PRN PO SEVERE PAIN (7-10) 03/08/25 09:30 03/13/25 09:29 Vasopressin 40 units/Sodium Chloride 40 ml @ 0 mls/hr PROTOCOL IV 03/08/25 17:00 04/07/25 16:59 03/10/25 19:26 2.4 MLS/HR DIAGNOSTICS / RADIOLOGY: [ ] Assessment: Cardiogenic shock SCAI Stage D CAD -S/P 4v CABG 03-08-[address] Barajas 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 TID 1.19. LVEF 39%. CAD status post stenting of the proximal LAD proximal circumflex and mid circumflex artery as above with documented progression of disease December 2024 managed medically because of concern the patient would not be compliant with dual antiplatelet therapy Remote anterior wall myocardial infarction July 2024 complicated by cardiogenic shock requiring Impella support for PCI with subsequent ischemic leg requiring [id number] amputation hypercoagulable state on Prasugrel POA functional decline: s/p BKA POA moderated protein calorie malnutrition with muscle atrophy ; BMI 19 POA History of Myocardial infarction 2023 Uncontrolled hypertension POA Hyperlipidemia Uncontrolled diabetes mellitus type 2 with hyperglycemia POA PLAN: Admit: Patient will be on telemetry condition: guarded Status: full code LINES: cvc impella chest tube et tube og tube marlin manjarrez DRIPS: levophed Lasix epi continue in ICU Start SBT's as tolerated Pending JOSIE Pending chest x-ray Continue midodrine 10 mg t.i.d. PRN for systolic blood pressure less than 100. nitroglycerin 0.4 mg subL, as directed for chest pain. 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 labs Replace electrolytes as needed as per protocol to keep potassium above 4.0 magnesium 2.0. ac/hs monitoring with SSRI coverage Patient continues to be intubated. Left chest tube drain about 30 cc in last 24 hours Right chest tube drain about 500 cc in the last 24 hours Urine output less than 5 mL/hour Nephrology consulted for ARIADNE. Patient continues to be on epi, levo and vasopressor. Patient also experience a temperature of 103 t blood culture were ordered as of 24 hours negative Urine culture final negative patient was placed on Zosyn Patient Care Specialist consulted for possible H ID Supportive measures: DVT ppx, GI ppx I personally spent more than 45 minutes of critical care time in treatment of this patient. This includes patient management, time at bedside, time reviewing tests, labs, appropriate images and studies, documentation, and patient care coordination. This time excludes separately billable procedures. ATTESTATION BY PHYSICIAN I have seen and examined the patient. I reviewed the documentation, medical decision making, and treatment plan as noted by the mid-level provider above. I agree with the findings and plan of care. PATEL Estevez MD WELDING MACHINE OPERATOR THERMIT Mar 12, 2025 09:23
--- NOTE | 2025-03-12 09:34 | PN ---
FOLLOWUP PROGRESS NOTE SUBJECTIVE: The patient is a 59-year-old female who presented with myocardial infarction. The patient underwent coronary catheterization. The patient was found to have three-vessel disease and underwent CABG. She has had acute renal failure postoperatively. Creatinine continues to be elevated. The patient remains on the Lasix drip. Urine output continues to be marginal. She remains on the pressors and she is being seen as a followup visit for all the above. REVIEW OF SYSTEMS: She is intubated in the ICU. OBJECTIVE: VITAL SIGNS: Blood pressure is 113/67, on the pressors, pulse 80. GENERAL: She is a chronically ill female, older than appearing. HEENT: Head is atraumatic. Pupils are equal, roving to light. Oropharynx, CT tubes in place. NECK: Neck is supple. There is no JVP. CARDIOVASCULAR: Regular. There is no S3 or S4 gallop. LUNGS: Coarse with equal thoracic movement. ABDOMEN: Soft, nondistended, and nontender. EXTREMITIES: She does have some cyanosis. LABORATORY DATA: Sodium 149, potassium 5.4, BUN 52, creatinine 3.2, AST 5700, ALT is 1700. IMPRESSION: * Acute renal failure. * Coronary artery disease, status post coronary artery bypass graft. * Respiratory failure, on the vent. * Hypotension. * Hyperkalemia. PLAN: The patient will be given additional dose of Lokelma for the hyperkalemia. There is no acute need for any form of renal replacement therapy. The patient remains on the Lasix drip. Urine output continues to be marginal. Workup is ongoing per Cardiovascular Surgery. All labs can be repeated in the a.m. TID: [id number] RECEIPT: [id number]
[2025-03-12 09:36] LABS: ABG BASE EXCESS 0.3 mmol/L (-2.0-3.0); ABG HCO3 23.6 mmol/L (21.0-28.0); ABG OXYGEN SATURATION 98.6 % (94.0-98.0); ABG PCO2 33 mmHg (32-45); ABG PH 7.477 (7.350-7.450); CARBON MONOXIDE 1.3 % (0.5-1.5); PO2, ARTERIAL BG 155.0 mmHg (83.0-108.0); TEMPERATURE, CELSIUS BG 37.0 CELSIUS (35.5-37.0); VENT MODE, BG SIMV, PS10 (ROOM AIR)
[2025-03-12 09:49] LABS: CREATININE 3.3 mg/dL (0.5-1.0); GLOMERULAR FILTR. RATE CALC 15.0 mL/min (>90); GLUCOSE,RANDOM 178.0 mg/dL (70-105); SODIUM SERUM 146.0 mmol/L (136-145); TOTAL PROTEIN, SERUM 4.7 g/dL (6.0-8.3); UREA NITROGEN, BLOOD 55.0 mg/dL (7-18)
[2025-03-12 10:13] LABS: ASPARTATE AMINOTRANSFERASE 4866.0 U/L (10-37)
--- NOTE | 2025-03-12 12:03 | PN ---
[facility] PROGRESS NOTE Date Patient Seen: Mar 12, 2025 Time of Visit: 12:03 Supervising Physician: Dr. 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 (LVEF: 40-45% by echo done on 02/25/2025) Unstable Angina POA Remote anterior wall myocardial infarction July 2024 complicated by cardiogenic shock requiring Impella support for PCI with subsequent ischemic leg requiring [id number] amputation CAD status post stenting of the proximal LAD proximal circumflex and mid circumflex artery as above with documented progression of disease December 2024 managed medically because of concern the patient would not be compliant with dual antiplatelet therapy Diabetes mellitus type 2 Dyslipidemia Chest pain comorbidities: HX of ACS-STEMI s/p PCI with VIANEY placement (BSS 3.0x20 mm) in the proximal LAD, VIANEY placement (BSS 3.5x16 mm) in the proximal LCx, VIANEY placement (BSS 3.0x12 mm) in the mid LCx, and VIANEY placement (BSS 2.75x24 mm) in the distal LCx done on 07/17/2024 Hx of Intraprocedural VT in July 2024 HX of cardiogenic shock requiring Impella placement in July 2024 HX of Right lower extremity ischemia secondary to Impella placement resulting in RLE limb ischemia s/p right BKA Hx of Ischemic cardiomyopathy Hx of Medication noncompliance Hx of Hypertension ] INTERVAL HISTORY: 03/09/2025: At the time of my evaluation, the patient was lying in bed. She is off sedation RASS score of -2. Patient remains intubated and mechanically vented, SIMV rate of 12, peep 8, Vt 550 and FiO2 50%. Chest tube remains in place, per the staff nurse current output of2 L bloody. On the monitor, the patient was tachycardic, tachypneic and with acceptable blood pressure readings. 5/[address] P 9. Laboratory data was notable for a H&H 7.4/20.6 platelet count of 55. Chemistry panel showed a sodium of 159, potassium of 4.3, chloride of 120, CO2 of 30, BUN 14, creatinine of 1.1 And a GFR of 57. Total bili of 1.3, AST 280, ALT35 and a alk-phos of 23. Chest imaging today showed bilateral infiltrates more pronounced on the right. Currently, the patient is on epi/levo/vaso drip. No other concern. 03/10/2025: At the time of my evaluation, the patient is lying in bed. The patient remains on mechanical ventilator support SIMV mode, FiO2 75%, peep of 5, rate of 18, vt 550. Chest tube pleural and mediastinal remained in place with a total output of 1030 mL. The patient is febrile T-max 103.3. Vital sign parameters shows tachycardia, tachypnea and soft blood pressure trend. Laboratory data showed stable H&H and platelet count showed a drop from 102-72. Chemistry panel showed a elevated sodium of 160, potassium 5.7, chloride is 113, BUN 26, creatinine of 1.9, GFR of 30. Total bilirubin of 8.5, AST 6256, ALT 2577 and a total CK of 2111. The patient remains coagulopathic. PT 21.4, INR 2.18. Chest imaging today showed concern for a large left pleural effusion. Currently, the patient remains on epi, levo, vaso, Lasix and bicarb. She also remains on antibiotic therapy with Zosyn. No other concern. 03/11/2025: At the time of my evaluation, the patient is lying in bed. The patient may remains mechanically vented on SIMV with pressure support of 10, rate 18, FiO2 75, Vt 550 and a PEEP of 8. Vital signs, are unremarkable. Laboratory data today, showed a WBC 6.6, H&H 9.4/27.1 and a platelet count of 56. Chemistry panel showed a sodium of 151, potassium of 5.8, chloride of 108, CO2 of 20, BUN 42,, creatinine of 2.6 and a GFR of 20. Total bili of 9.6, AST 47528, ALT 2651 alk-phos of 89, total CK of 3243 chest x-ray showed bilateral pulmonary vascular congestion and infiltrate. Left pleural effusion has improved after chest tube placement on 03/10/2025. Currently, the patient continues on epi, levo, vaso and Lasix. She is also on IV Zosyn. No other complaint. 03/12/2025: At the time of my evaluation, the patient was lying in bed. She generally remains in the same condition. The patient remains on a mechanical ventilator support SIMV mode. Repeat chest x-ray today showed worsening bilateral pulmonary edema. Chest tube bilateral remained in place. Vital signs today are unremarkable. Impella remains in place P7. Laboratory data showed H&H of 8.7/25.2 and a platelet count of 19, no leukocytosis. Chemistry panel was notable for a sodium of 146, potassium of 5.3, chloride of 104, CO2 of 27, BUN of 55, creatinine of 3.3 and a GFR of 1. Total bili of 11.0, AST of 4866, ALT of 1460. Currently, the patient is on epi, levo and Lasix. Also the patient receiving antibiotic therapy with Zosyn. REVIEW OF SYSTEMS: unable to perform PHYSICAL EXAM: GENERAL: critically ill intubated HEENT: Sclera non icteric, moist mucosa NECK: Supple, no JVD, trachea midline , impella 5.5 LUNGS: diminished breath sounds bilaterally. No wheezes HEART: Regular rate and rhythm. Normal S1 and S2, without murmurs, chest tube in place ABD: Abdomen soft, nontender. Bowel sounds present EXT: No clubbing cyanosis or edema rt BKA NEURO: Deferred. Vital Signs (last 8hr) Date Time Temp Pulse Resp B/P (MAP) Pulse Ox O2 Delivery O2 Flow Rate FiO2 03/12/25 11:30 83 18 130/75 (93) 03/12/25 11:26 82 60 03/12/25 11:15 82 18 115/69 (84) 03/12/25 11:00 83 18 112/68 (83) 03/12/25 10:45 83 18 123/72 (89) 03/12/25 10:30 82 20 124/70 (88) 78 03/12/25 10:15 81 20 118/69 (85) 77 03/12/25 10:00 82 20 123/69 (87) 79 03/12/25 09:45 80 18 110/65 (80) 91 03/12/25 09:31 82 60 03/12/25 09:30 80 18 109/65 (80) 91 03/12/25 09:15 81 16 123/72 (89) 91 03/12/25 09:00 82 18 115/69 (84) 91 03/12/25 08:45 81 18 117/70 (86) 91 03/12/25 08:30 78 20 107/66 (80) 91 03/12/25 08:15 80 18 113/67 (82) 79 03/12/25 08:08 60 03/12/25 08:00 81 18 114/68 (83) 91 03/12/25 08:00 98 Ventilator+ 60 03/12/25 08:00 99.7 Ventilator 60 03/12/25 07:45 79 20 110/66 (81) 91 03/12/25 07:30 82 20 111/67 (82) 91 03/12/25 07:15 83 20 113/67 (82) 91 03/12/25 07:00 82 11 112/67 (82) 91 03/12/25 06:52 83 60 03/12/25 06:00 82 18 120/69 (86) 97 60 03/12/25 05:45 82 18 118/67 (84) 97 03/12/25 05:30 79 18 117/67 (84) 97 03/12/25 05:15 80 18 114/68 (83) 97 03/12/25 05:00 80 20 110/67 (81) 97 60 03/12/25 04:45 83 18 116/68 (84) 97 03/12/25 04:30 81 18 101/63 (76) 97 03/12/25 04:15 79 18 91/60 (70) 97 LABS: Hematology Labs: Test 03/12/25 09:03 03/11/25 20:53 03/10/25 21:53 Range/Units White Blood Count 8.3 4.8-10.8 K/uL Red Blood Count 2.85 L 4.00-5.50 MIL/uL Hemoglobin 8.7 L 12.0-16.0 g/dL Hematocrit 25.2 L 36-48 % Mean Corpuscular Volume 88.4 79-99 fL Mean Corpuscular Hemoglobin 30.5 27.0-33.0 pg Mean Corpuscular Hemoglobin Concent 34.5 32.0-36.0 g/dL Red Cell Distribution Width 17.7 H 11.0-15.5 % Platelet Count 19 L 130-400 K/uL Mean Platelet Volume 13.1 H 7.5-10.5 fL Immature Granulocyte % (Auto) 1.7 H 0-1 % Neutrophils (%) (Auto) 85.4 H 40.0-77.0 % Lymphocytes (%) (Auto) 7.3 L 21.0-51.0 % Monocytes (%) (Auto) 4.8 3.0-13.0 % Eosinophils (%) (Auto) 0.2 0.0-8.0 % Basophils (%) (Auto) 0.6 0.0-5.0 % Neutrophils # (Auto) 7.1 1.8-7.7 K/uL Lymphocytes # (Auto) 0.6 L 1.0-4.8 K/uL Monocytes # (Auto) 0.4 0.1-1.0 K/uL Eosinophils # (Auto) 0.02 0.00-0.70 K/uL Basophils # (Auto) 0.05 0.00-0.20 K/uL Absolute Immature Granulocyte (auto 0.14 0-1 K/uL Nucleated Red Blood Cells 3.0 H 0.0-0.19 % White Cell Morphology Comment See comments Chemistry Labs: Test 03/12/25 09:03 03/12/25 05:00 03/11/25 05:10 Range/Units Sodium Level 146 H 136-145 mmol/L Potassium Level 5.3 H 3.5-5.1 mmol/L Chloride Level 104 101-111 mmol/L Carbon Dioxide Level 27 21-32 mmol/L Blood Urea Nitrogen 55 H 7-18 mg/dL Creatinine 3.3 H 0.5-1.0 mg/dL Glomerular Filtration Rate Calc 15 >90 mL/min Random Glucose 178 H 70-105 mg/dL Total Calcium 9.0 8.5-10.1 mg/dL Total Bilirubin 11.0 H 0.2-1.0 mg/dL Aspartate Amino Transf (AST/SGOT) 4866 *H 10-37 U/L Alanine Aminotransferase (ALT/SGPT) 1460 *H 12-78 U/L Alkaline Phosphatase 121 50-136 U/L Total Protein 4.7 L 6.0-8.3 g/dL Albumin 3.0 L 3.5-5.0 g/dL Magnesium Level 2.10 1.80-2.40 mg/dL Total Creatine Kinase 4964 #*H 21-232 U/L Phosphorus Level 7.8 H 2.5-4.9 mg/dL Coagulation Labs: Test 03/12/25 05:00 Range/Units Prothrombin Time 17.0 H 9.6-11.6 SEC Prothromb Time International Ratio 1.69 H 0.85-1.15 Activated Partial Thromboplast Time 39.0 H 26.3-35.5 SEC Fibrinogen 247 180-350 mg/dL DIAGNOSTICS / RADIOLOGY RESULTS: [ ] PLAN Follow CT surgeon recommendations Follow cardiology recommendations Multimodal pain management Monitoring H&H Monitor chest tube output Chest x-ray in the morning Start SBT's as tolerated Pending 2D echo post cabg POCUS US continue impella support per cardiology follow chest XR Monitor ABGs Transfuse if absolutely necessary to keep hemoglobin above 8 Maintain O2 sats greater than 92% Incentive spirometry once extubated Hemoglobin A1 Glycemic control with goal of 80-180 Referral for cardiac rehabilitation Speech to eval once patient is extubated monitor electrolytes: K Goal of 4 Magnesium goal of 2 Replace accordingly monitor hemodynamic and continue support with pressors 03/09/2025: For now, going to continue current management for the patient. She will remain intubated and will be extubated per the CTS/CABG protocol. Patient will continue on cardiac management per the Cardiology team/[facility]. Because of her severe anemia, she was ordered to receive a unit of whole blood and 2 units of platelet which are pending to be infused. We will continue to monitor the H&H trend. Balloon pump remains in place as well as Cordis and chest tube mediastinal and pleural. We will repeat surveillance labs in morning. We will follow the recommendation of the CTS and we will intervene if necessary. We will continue to provide general supportive care, GI and DVT prophylaxis. Further orders per attending MD and hospital course. 03/10/2025: For now, going to continue current management. The patient will remains intubated and mechanically vented. Because of the appearance of a large left pleural effusion, we are asked to a chest tube for drainage. This will be placed at the bedside. The patient remains with mediastinal and pleural chest tube in place. Impella remains in place, P5. Continue with pressor therapy, diuretic and antibiotic. I am going to repeat surveillance labs in the morning as was as a chest x-ray. Nephrology was consulted for further renal management, we will await their input. I discussed the findings and plan for further managem ent with the staff nurse. No family member present at the bedside. We will monitor the patient's progress and response to management. We will continue to provide general supportive care, GI and DVT prophylaxis. Further orders per attending MD and hospital course. 03/11/2025: For now, going to continue current management for the patient. Patient received a dose of Kayexalate earlier for management of the hyperkalemia, we will repeat level and decide on further need for extra dose of Kayexalate. Per the Cardiothoracic surgeon recommendations were to obtain a hit panel and consult the lpn for further input on management due to her low platelet count. We will follow their recommendation. The patient will remain on mechanical ventilator support and sedation. We will follow the chest tube output. There was slight improvement of her liver parameters and total CK increase. I discussed the findings and plan for further management with the staff nurse. We will monitor the patient's progress and response to management. We will continue to provide general supportive care, GI and DVT prophylaxis. Further orders per attending MD and hospital course. 03/12/2025: For now, going to continue current management for the patient. We will continue antibiotic therapy as ordered. I am going to request a ammonia level and a repeat chest x-ray. Lokelma 10 mg was administered in attempt of correcting the hyperkalemia. I strongly believe the patient would benefit from hemodialysis to off load fluid. We will follow the franchise consultant's input. We will also discuss the case with the [facility]. I discussed the findings and plan for further management with the staff nurse. We will monitor the patient's progress and response to management. We will continue to provide general supportive care, GI and DVT prophylaxis. Further orders per attending MD and hospital course. NEURO: Minimize central acting medications as possible. Fall Precautions. Well lighted room through the day and minimize interruptions through the night to prevent acute delirium. PULMONARY: Supplemental 02 as needed Titrate Fio2 to keep Spo2 > or = 90% DuoNebs and CPT as needed IS hourly while awake for pulmonary hygiene Out of bed to chair as tolerated VAP Bundle Ventilator per CV protocol CARDIOVASCULAR: Follow hemodynamics. Titrate vasopressor to keep MAP >65 or systolic blood pressure >95mmHg DRIPS: levophed vasopressin epi Lasix LINES: cvc impella chest tube et tube og tube A-line manjarrez GI & NUTRITION: Continue nutritional support Aspirations precautions Prokinetic agents and laxatives as needed KIDNEYS & ELECTROLYTES: Strict monitoring of intake and output Daily weights Avoid nephrotoxic agents Monitor electrolytes and replace as needed Goal urine output of 30mL/hr or 0.5mL/kg/hr Urine output: [ ] Fluid Balance: [ ] ENDOCRINE: Maintain blood glucose between 100-180 at all times. Insulin sliding scale for blood glucose management INFECTIOUS DISEASE: Trend temperature. Combs-culture if febrile. Micro: [ ] MRSA negative Antibiotics: [ ] HEMATOLOGY & COAGULATION: Monitor H&H. Keep Hgb > 7 Transfuse 1 unit of PRBC for Hgb < 7 Transfuse 1 pack of platelets of platelets < 20, 000 Watch for any signs and symptoms of bleeding SKIN: Pressure ulcer prevention per facility protocol Rehab: PT/OT Prophylaxis: GI: pepcid DVT: [ tedhose ac per cv ] Code Status: Full Resuscitation Disposition: [ICU ] Other: I personally spent 82 minutes of critical care time in treatment of this patient. This includes patient management, time at bedside, time reviewing tests, labs, appropriate images and studies, documentation, and patient care coordination. This time excludes separately billable procedures. Patient was seen and case discussed with purnima POWERS. Plan of care was discussed and agreed upon. AYLEEN NAVA NP Mar 12, 2025 12:03
--- NOTE | 2025-03-12 12:59 | HMCIMG ---
CHEST 1VW HISTORY: Post CABG COMPARISON: 03/11/2025 FINDINGS: A frontal projection of the chest was obtained. There are bilateral pulmonary infiltrates suggestive of pulmonary vascular congestion with possible superimposed pneumonitis. Poststernotomy changes are seen. The heart is enlarged. Degenerative changes of the thoracolumbar spine are present. All the lines and tubes are again seen in place. No evidence of aortic calcification is seen. IMPRESSION: 1. Bilateral pulmonary infiltrates are seen suggestive of pulmonary vascular congestion with possible superimposed pneumonitis. Interval worsening is seen.
[2025-03-12 14:15] LABS: ABG BASE EXCESS 1.0 mmol/L (-2.0-3.0); ABG HCO3 24.4 mmol/L (21.0-28.0); ABG OXYGEN SATURATION 95.7 % (94.0-98.0); ABG PCO2 34 mmHg (32-45); ABG PH 7.473 (7.350-7.450); CARBON MONOXIDE 1.1 % (0.5-1.5); DEVICE COMMENT AL,EDDIE,RN; PO2, ARTERIAL BG 84.4 mmHg (83.0-108.0); TEMPERATURE, CELSIUS BG 37.0 CELSIUS (35.5-37.0); VENT MODE, BG SIMV, PS10 (ROOM AIR)
--- NOTE | 2025-03-12 14:47 | HMCIMG ---
CHEST 1VW HISTORY: Pleural effusion COMPARISON: None FINDINGS: A frontal projection of the chest was obtained. There are bilateral pulmonary infiltrates suggestive of pulmonary vascular congestion with possible superimposed pneumonitis. Poststernotomy changes are seen. The heart is enlarged. Degenerative changes of the thoracolumbar spine are present. All the lines and tubes are again seen in place. No evidence of aortic calcification is seen. IMPRESSION: 1. Bilateral pulmonary infiltrates are seen suggestive of pulmonary vascular congestion with possible superimposed pneumonitis.
--- NOTE | 2025-03-12 15:28 | CONS ---
CONSULT NOTE: A 59-year-old female who has had a prolonged hospital course. She initially presented with chest pain. The patient eventually underwent coronary catheterization that revealed 3-vessel disease. The patient is status post CABG. The patient has developed acute renal failure postoperatively. The patient remains intubated in the ICU. The patient continues with the pressors. She was also noted to have hyperkalemia and was treated medically. The patient is being seen in consultation for all of the above. PAST MEDICAL HISTORY: Diabetes mellitus, hypertension, hypercholesterolemia, coronary artery disease. PAST SURGICAL HISTORY: Lower extremity amputation, CABG. SOCIAL HISTORY: She lives independently. No active tobacco use. FAMILY HISTORY: There is no renal disease in the family. ALLERGIES: There are no allergies. MEDICATIONS: Noted. REVIEW OF SYSTEMS: She is intubated in the ICU. PHYSICAL EXAMINATION: VITAL SIGNS: Blood pressure is 101/69, pulse in the 100s. She is afebrile. GENERAL: She is a chronically ill female, lying in bed in the medical floor. HEENT: Head is atraumatic. Pupils equal and reactive to light. Oropharynx, ET tubes in place. NECK: Supple. There is no JVP. CARDIOVASCULAR: Regular. There is no S3 or S4 gallop. LUNGS: Coarse with equal thoracic movement. ABDOMEN: Soft, nondistended, nontender. EXTREMITIES: There is no edema. NEUROLOGICAL: She is sedated with the vent. SKIN: No rashes or nodules. BACK: There is no CVA tenderness. No back deformities. IMPRESSION: 1. Neutropenia 2. Anemia 3. Thrombocytopenia 4. Liver failure 5. Acute renal failure 6. Coronary artery disease status post CABG 7. Transfusion is a patient to have multiple blood product transfusion i ncluding 17 red cells, 9 platelet, 4 fresh frozen plasma and 1 whole blood. Plan 1. Peripheral blood smear showed red blood cells to be microcytic normochromic with dimorphic picture showed be consistent with iron deficiency anemia with the patient received blood transfusion. There was no fragment cell or schistocyte. There is no teardrop cell. There is no rouleaux phenomena. There is no pelger- Huet cell. White blood cell with no blasts. There is decreased number of the platelets. But the platelet is normal in size. This is not consistent with HIT. 2. There was hypersegmented neutrophils. This patient to be started on folic acid 1 mg p.o. daily and vitamin B12 1000 mcg p.o. daily. 3. Peripheral smear actually showed nucleated blood cells very mature cell. The patient could have hemolysis or could have also myeloproliferative disorder to start with. So this patient may be will need bone marrow biopsy to be done later on. 4. Will ask for direct Cassi test to be done. 5. This patient could benefit actually from dexamethasone 20 mg IV daily 6. I do not think this patient should receive anticoagulation for HIT. I do not think this patient have HIT. It seems the patient was receiving vitamin K and Amicar. There is no need for anticoagulation only as for prophylaxis. It seems the patient is on aspirin. 7. It seems the patient is bleeding. This patient could benefit from 1 unit of single donor platelet. 8. Peripheral smear showed microcytosis. This patient looks like have low on iron. This patient could benefit from IV iron. LAB RESULTS 03/12/25 14:13: Blood Gas Specimen Type Arterial, Arterial Blood pH 7.473H, Arterial Blood Partial Pressure CO2 34, Arterial Blood Partial Pressure O2 84.4, Arterial Blood HCO3 24.4, Arterial Blood Oxygen Saturation 95.7, Arterial Blood Base Excess 1.0, Hemoglobin (Blood Gas) 9.5L, Sodium (Blood Gas) 142, Bedside Potassium (Blood Gas) 5.3H, Bedside Chloride (Blood Gas) 104, Bedside Glucose (Blood Gas) 179H, Bedside Ionized Calcium (Blood Gas) 1.16, Bedside Lactic Acid (Blood Gas) 6.26*H, Blood Gas Temperature 37.0, Blood Gas Respiration Rate 18.0, Blood Gas Vent Mode SIMV, PS10, FiO2 60.0, Blood Gas Tidal Volume 550, Blood Gas PEEP 8, Blood Gas Specimen Comment JEANE SHAH RN 03/12/25 12:59: Ammonia 25 03/12/25 09:03: White Blood Count 8.3, Red Blood Count 2.85L, Hemoglobin 8.7L, Hematocrit 25.2L, Mean Corpuscular Volume 88.4, Mean Corpuscular Hemoglobin 30.5, Mean Corpuscular Hemoglobin Concent 34.5, Red Cell Distribution Width 17.7H, Platelet Count 19L, Mean Platelet Volume 13.1H, Immature Granulocyte % (Auto) 1.7H, Neutrophils (%) (Auto) 85.4H, Lymphocytes (%) (Auto) 7.3L, Monocytes (%) (Auto) 4.8, Eosinophils (%) (Auto) 0.2, Basophils (%) (Auto) 0.6, Neutrophils # (Auto) 7.1, Lymphocytes # (Auto) 0.6L, Monocytes # (Auto) 0.4, Eosinophils # (Auto) 0.02, Basophils # (Auto) 0.05, Absolute Immature Granulocyte (auto 0.14, Nucleated Red Blood Cells 3.0H, Sodium Level 146H, Potassium Level 5.3H, Chloride Level 104, Carbon Dioxide Level 27, Blood Urea Nitrogen 55H, Creatinine 3.3H, Glomerular Filtration Rate Calc 15, Random Glucose 178H, Total Calcium 9.0, Total Bilirubin 11.0H, Aspartate Amino Transf (AST/SGOT) 4866*H, Alanine Aminotransferase (ALT/SGPT) 1460*H, Alkaline Phosphatase 121, Total Protein 4.7L, Albumin 3.0L 03/12/25 05:00: Prothrombin Time 17.0H, Prothromb Time International Ratio 1.69H, Activated Partial Thromboplast Time 39.0H, Fibrinogen 247, Magnesium Level 2.10, Total Creatine Kinase 4964#*H 03/11/25 20:53: White Cell Morphology Comment See comments 03/11/25 05:10: Phosphorus Level 7.8H 03/10/25 21:53: Laboratory Tests Test 03/11/25 15:50 03/11/25 18:39 03/11/25 20:53 03/11/25 20:57 Prothrombin Time 16.6 SEC (9.6-11.6) H Prothromb Time International Ratio 1.65 (0.85-1.15) H Activated Partial Thromboplast Time 34.8 SEC (26.3-35.5) Blood Gas Specimen Type Arterial Arterial Arterial Blood pH 7.454 (7.350-7.450) 7.440 (7.350-7.450) Arterial Blood Partial Pressure CO2 32 mmHg (32-45) 34 mmHg (32-45) Arterial Blood Partial Pressure O2 189.2 mmHg (83.0-108.0) H 196.2 mmHg (83.0-108.0) H Arterial Blood HCO3 21.8 mmol/L (21.0-28.0) 22.3 mmol/L (21.0-28.0) Arterial Blood Oxygen Saturation 98.5 % (94.0-98.0) H 98.7 % (94.0-98.0) H Arterial Blood Base Excess -1.6 mmol/L (-2.0-3.0) -1.4 mmol/L (-2.0-3.0) Hemoglobin (Blood Gas) 9.6 g/dL (12.0-16.0) L 9.5 g/dL (12.0-16.0) L Sodium (Blood Gas) 145 MMOL/L (136-145) 144 MMOL/L (136-145) Bedside Potassium (Blood Gas) 5.2 MMOL/L (3.4-4.5) H 5.1 MMOL/L (3.4-4.5) H Bedside Chloride (Blood Gas) 104 MMOL/L (98-107) 104 MMOL/L (98-107) Bedside Glucose (Blood Gas) 175 MG/DL (65-95) H 177 MG/DL (65-95) H Bedside Ionized Calcium (Blood Gas) 1.11 MMOL/L (1.15-1.33) L 1.16 MMOL/L (1.15-1.33) Bedside Lactic Acid (Blood Gas) 10.29 MMOL/L (0.36-0.75) *H 9.12 MMOL/L (0.36-0.75) *H Blood Gas Temperature 37.0 CELSIUS (35.5-37.0) 37.0 CELSIUS (35.5-37.0) Blood Gas Respiration Rate 18.0 min. 18.0 min. Blood Gas Vent Mode SIMV (ROOM AIR) SIMV PS 10 (ROOM AIR) FiO2 75.0 % 75.0 % Blood Gas Tidal Volume 550 ml 550 ml Blood Gas PEEP 8 cm H2O 8 cm H2O Blood Gas Specimen Comment TOMMY LOPEZ NICOLETTE RN, AL White Blood Count 7.8 K/uL (4.8-10.8) Red Blood Count 2.92 MIL/uL (4.00-5.50) L Hemoglobin 9.0 g/dL (12.0-16.0) L Hematocrit 25.5 % (36-48) L Mean Corpuscular Volume 87.3 fL (79-99) Mean Corpuscular Hemoglobin 30.8 pg (27.0-33.0) Mean Corpuscular Hemoglobin Concent 35.3 g/dL (32.0-36.0) Red Cell Distribution Width 17.9 % (11.0-15.5) H Platelet Count 33 K/uL (130-400) #L Mean Platelet Volume 11.5 fL (7.5-10.5) H Immature Granulocyte % (Auto) 1.3 % (0-1) H Neutrophils (%) (Auto) 85.1 % (40.0-77.0) H Lymphocytes (%) (Auto) 9.6 % (21.0-51.0) L Monocytes (%) (Auto) 3.1 % (3.0-13.0) Eosinophils (%) (Auto) 0.1 % (0.0-8.0) Basophils (%) (Auto) 0.8 % (0.0-5.0) Neutrophils # (Auto) 6.7 K/uL (1.8-7.7) Lymphocytes # (Auto) 0.8 K/uL (1.0-4.8) L Monocytes # (Auto) 0.2 K/uL (0.1-1.0) Eosinophils # (Auto) 0.01 K/uL (0.00-0.70) Basophils # (Auto) 0.06 K/uL (0.00-0.20) Absolute Immature Granulocyte (auto 0.10 K/uL (0-1) Nucleated Red Blood Cells 2.0 % (0.0-0.19) H White Cell Morphology Comment See comments Sodium Level 147 mmol/L (136-145) H Potassium Level 5.2 mmol/L (3.5-5.1) H Chloride Level 104 mmol/L (101-111) Carbon Dioxide Level 24 mmol/L (21-32) Blood Urea Nitrogen 49 mg/dL (7-18) H Creatinine 2.9 mg/dL (0.5-1.0) H Glomerular Filtration Rate Calc 18 mL/min (>90) Random Glucose 175 mg/dL (70-105) H Total Calcium 9.2 mg/dL (8.5-10.1) Test 03/12/25 01:09 03/12/25 05:00 03/12/25 09:03 03/12/25 09:35 Blood Gas Specimen Type Arterial Arterial Arterial Arterial Blood pH 7.497 (7.350-7.450) 7.477 (7.350-7.450) 7.477 (7.350-7.450) Arterial Blood Partial Pressure CO2 34 mmHg (32-45) 36 mmHg (32-45) 33 mmHg (32-45) Arterial Blood Partial Pressure O2 221.2 mmHg (83.0-108.0) H 128.1 mmHg (83.0-108.0) H 155.0 mmHg (83.0-108.0) H Arterial Blood HCO3 25.4 mmol/L (21.0-28.0) 26.0 mmol/L (21.0-28.0) 23.6 mmol/L (21.0-28.0) Arterial Blood Oxygen Saturation 98.6 % (94.0-98.0) H 98.1 % (94.0-98.0) H 98.6 % (94.0-98.0) H Arterial Blood Base Excess 2.3 mmol/L (-2.0-3.0) 2.5 mmol/L (-2.0-3.0) 0.3 mmol/L (-2.0-3.0) Hemoglobin (Blood Gas) 9.6 g/dL (12.0-16.0) L 9.7 g/dL (12.0-16.0) L 9.2 g/dL (12.0-16.0) L Sodium (Blood Gas) 144 MMOL/L (136-145) 143 MMOL/L (136-145) 142 MMOL/L (136-145) Bedside Potassium (Blood Gas) 5.2 MMOL/L (3.4-4.5) H 5.2 MMOL/L (3.4-4.5) H 5.2 MMOL/L (3.4-4.5) H Bedside Chloride (Blood Gas) 105 MMOL/L (98-107) 104 MMOL/L (98-107) 104 MMOL/L (98-107) Bedside Glucose (Blood Gas) 185 MG/DL (65-95) H 186 MG/DL (65-95) H 169 MG/DL (65-95) H Bedside Ionized Calcium (Blood Gas) 1.15 MMOL/L (1.15-1.33) 1.15 MMOL/L (1.15-1.33) 1.15 MMOL/L (1.15-1.33) Bedside Lactic Acid (Blood Gas) 8.69 MMOL/L (0.36-0.75) *H 7.33 MMOL/L (0.36-0.75) *H 5.79 MMOL/L (0.36-0.75) *H Blood Gas Temperature 37.0 CELSIUS (35.5-37.0) 37.0 CELSIUS (35.5-37.0) 37.0 CELSIUS (35.5-37.0) Blood Gas Respiration Rate 18.0 min. 18.0 min. 18.0 min. Blood Gas Vent Mode SIMV (ROOM AIR) SIMV (ROOM AIR) SIMV, PS10 (ROOM AIR) FiO2 75.0 % 60.0 % 60.0 % Blood Gas Tidal Volume 550 ml 550 ml 550 ml Blood Gas PEEP 8 cm H2O 8 cm H2O 8 cm H2O Blood Gas Specimen Comment TOMMY LOPEZ RN CHRIS AL, EDDIE, RN White Blood Count 7.9 K/uL (4.8-10.8) 8.3 K/uL (4.8-10.8) Red Blood Count 2.97 MIL/uL (4.00-5.50) L 2.85 MIL/uL (4.00-5.50) L Hemoglobin 9.0 g/dL (12.0-16.0) L 8.7 g/dL (12.0-16.0) L Hematocrit 26.1 % (36-48) L 25.2 % (36-48) L Mean Corpuscular Volume 87.9 fL (79-99) 88.4 fL (79-99) Mean Corpuscular Hemoglobin 30.3 pg (27.0-33.0) 30.5 pg (27.0-33.0) Mean Corpuscular Hemoglobin Concent 34.5 g/dL (32.0-36.0) 34.5 g/dL (32.0-36.0) Red Cell Distribution Width 17.7 % (11.0-15.5) H 17.7 % (11.0-15.5) H Platelet Count 23 K/uL (130-400) #L 19 K/uL (130-400) L Mean Platelet Volume 12.1 fL (7.5-10.5) H 13.1 fL (7.5-10.5) H Immature Granulocyte % (Auto) 1.5 % (0-1) H 1.7 % (0-1) H Neutrophils (%) (Auto) 86.2 % (40.0-77.0) H 85.4 % (40.0-77.0) H Lymphocytes (%) (Auto) 7.7 % (21.0-51.0) L 7.3 % (21.0-51.0) L Monocytes (%) (Auto) 3.7 % (3.0-13.0) 4.8 % (3.0-13.0) Eosinophils (%) (Auto) 0.3 % (0.0-8.0) 0.2 % (0.0-8.0) Basophils (%) (Auto) 0.6 % (0.0-5.0) 0.6 % (0.0-5.0) Neutrophils # (Auto) 6.8 K/uL (1.8-7.7) 7.1 K/uL (1.8-7.7) Lymphocytes # (Auto) 0.6 K/uL (1.0-4.8) L 0.6 K/uL (1.0-4.8) L Monocytes # (Auto) 0.3 K/uL (0.1-1.0) 0.4 K/uL (0.1-1.0) Eosinophils # (Auto) 0.02 K/uL (0.00-0.70) 0.02 K/uL (0.00-0.70) Basophils # (Auto) 0.05 K/uL (0.00-0.20) 0.05 K/uL (0.00-0.20) Absolute Immature Granulocyte (auto 0.12 K/uL (0-1) 0.14 K/uL (0-1) Nucleated Red Blood Cells 3.2 % (0.0-0.19) H 3.0 % (0.0-0.19) H Prothrombin Time 17.0 SEC (9.6-11.6) H Prothromb Time International Ratio 1.69 (0.85-1.15) H Activated Partial Thromboplast Time 39.0 SEC (26.3-35.5) H Fibrinogen 247 mg/dL (180-350) Sodium Level 149 mmol/L (136-145) H 146 mmol/L (136-145) H Potassium Level 5.4 mmol/L (3.5-5.1) H 5.3 mmol/L (3.5-5.1) H Chloride Level 108 mmol/L (101-111) 104 mmol/L (101-111) Carbon Dioxide Level 26 mmol/L (21-32) 27 mmol/L (21-32) Blood Urea Nitrogen 52 mg/dL (7-18) H 55 mg/dL (7-18) H Creatinine 3.2 mg/dL (0.5-1.0) H 3.3 mg/dL (0.5-1.0) H Glomerular Filtration Rate Calc 16 mL/min (>90) 15 mL/min (>90) Random Glucose 176 mg/dL (70-105) H 178 mg/dL (70-105) H Total Calcium 9.3 mg/dL (8.5-10.1) 9.0 mg/dL (8.5-10.1) Magnesium Level 2.10 mg/dL (1.80-2.40) Total Bilirubin 11.0 mg/dL (0.2-1.0) H 11.0 mg/dL (0.2-1.0) H Aspartate Amino Transf (AST/SGOT) 5742 U/L (-) *H 4866 U/L () *H Alanine Aminotransferase (ALT/SGPT) 1752 U/L () #*H 1460 U/L () *H Alkaline Phosphatase 116 U/L (50-136) # 121 U/L (50-136) Total Creatine Kinase 4964 U/L (21-232) #*H Total Protein 4.5 g/dL (6.0-8.3) L 4.7 g/dL (6.0-8.3) L Albumin 2.9 g/dL (3.5-5.0) L 3.0 g/dL (3.5-5.0) L Test 03/12/25 12:59 03/12/25 14:13 Ammonia 25 umol/L (11-32) Blood Gas Specimen Type Arterial Arterial Blood pH 7.473 (7.350-7.450) Arterial Blood Partial Pressure CO2 34 mmHg (32-45) Arterial Blood Partial Pressure O2 84.4 mmHg (83.0-108.0) Arterial Blood HCO3 24.4 mmol/L (21.0-28.0) Arterial Blood Oxygen Saturation 95.7 % (94.0-98.0) Arterial Blood Base Excess 1.0 mmol/L (-2.0-3.0) Hemoglobin (Blood Gas) 9.5 g/dL (12.0-16.0) L Sodium (Blood Gas) 142 MMOL/L (136-145) Bedside Potassium (Blood Gas) 5.3 MMOL/L (3.4-4.5) H Bedside Chloride (Blood Gas) 104 MMOL/L (98-107) Bedside Glucose (Blood Gas) 179 MG/DL (65-95) H Bedside Ionized Calcium (Blood Gas) 1.16 MMOL/L (1.15-1.33) Bedside Lactic Acid (Blood Gas) 6.26 MMOL/L (0.36-0.75) *H Blood Gas Temperature 37.0 CELSIUS (35.5-37.0) Blood Gas Respiration Rate 18.0 min. Blood Gas Vent Mode SIMV, PS10 (ROOM AIR) FiO2 60.0 % Blood Gas Tidal Volume 550 ml Blood Gas PEEP 8 cm H2O Blood Gas Specimen Comment JEANE SHAH,WILIAM MILLER MD Mar 12, 2025 15:28
[2025-03-12] MEDS: CYANOCOBALAMIN (VITAMIN B-12) 1,000 MCG TABLET PO SCH (16:25)
[2025-03-12] MEDS: LACTULOSE 20 GM/30 ML UDCUP PO PRN (16:26)
[2025-03-12] MEDS ORDERED: LACTULOSE 20 GM/30 ML UDCUP PO PRN (16:30)
[2025-03-12 17:31] LABS: ABG BASE EXCESS 0.9 mmol/L (-2.0-3.0); ABG HCO3 24.8 mmol/L (21.0-28.0); ABG OXYGEN SATURATION 96.4 % (94.0-98.0); ABG PCO2 36 mmHg (32-45); ABG PH 7.456 (7.350-7.450); CARBON MONOXIDE 1.9 % (0.5-1.5); PO2, ARTERIAL BG 91.0 mmHg (83.0-108.0); TEMPERATURE, CELSIUS BG 37.0 CELSIUS (35.5-37.0); VENT MODE, BG SIMV, PS10 (ROOM AIR)
[2025-03-12 17:58] LABS: NUCLEATED RED BLOOD CELLS 8.7 % (0.0-0.19); PLATELET COUNT (AUTO) 35.0 K/uL (130-400); RED BLOOD CELL COUNT(AUTO) 2.36 MIL/uL (4.00-5.50); RED CELL DISTRIBUTION WIDTH 18.1 % (11.0-15.5); WHITE BLOOD COUNT (AUTO) 8.3 K/uL (4.8-10.8)
[2025-03-12 18:56] LABS: % IRON SATURATION 88.8 % (22-44); IRON, SERUM 175.0 mcg/dL (50-170)
--- NOTE | 2025-03-12 19:00 | NUR ---
Handoff report received from TOMMY Medina. Plan of care reviewed; questions and concerns addressed. Pt currently intubated, on no sedation - no repsonse to pain, pupils equal and sluggish. Running Epi at 0.08 mcg/kg/min and Levo at 4mcg/min. Hemodialysis recently started via left femoral trialysis - currently tolerating, MAP of 88 mmHg. [place] external length at 35cm; Impella at 30cm, left subclavian, currently on P7. Hemodynamic parameters correlating well on monitor except SpO2 - fingertips mottled; ABG's q4h have been showing PO2 above 90%. Mediastinal CT present from CABG and left plueral CT from recent pleural effusion present - connected to water seal and wall suction, dressings clean, and tubing patent. Vent settings on machine correlates with orders. ETT 7.5, 20cm at the lip; Respirations currently at 14-17 per minute with vent rate at 10.
[2025-03-12 19:26] LABS: CREATININE 3.3 mg/dL (0.5-1.0); GLOMERULAR FILTR. RATE CALC 15.0 mL/min (>90); LDL DIRECT 36.0 mg/dL (0-99); UREA NITROGEN, BLOOD 61.0 mg/dL (7-18)
--- NOTE | 2025-03-12 19:32 | PRN ---
Procedure Note: Central Line Procedure Note Hemodialysis Catheter Placement Indication: Hemodialysis access. A time-out was completed verifying correct patient, procedure, site, positioning. The patient was kept in a supine position appropriate for placement of the hemodialysis catheter. The left groin was prepped and draped in sterile fashion. 1%Lidocainewas used to anesthetize the surrounding skin area. A 13- [place] Power Trialysiscatheter was introduced into the common femoral vein, using the Seldingertechnique under ultrasound guidance. The catheter was thread ed smoothly over the guide wire and appropriate blood return was obtained. Each lumen of the catheter was evacuated of air and flushed with sterile saline. The catheter was then sutured in place to the skin and a sterile dressing applied. Perfusion to the extremity distal to the point of catheter insertion was checked and found to be adequate. Estimated Blood Loss: [5-10ML]. The patient tolerated the procedure well and there were no complications. Supervising MD Dr. Deluca was present at the bedside throughout the procedure. AYLEEN NAVA NP Mar 12, 2025 19:32
[2025-03-12 19:39] LABS: HIV 1&2 ANTIBODY Non-Reactive (Negative)
[2025-03-12] MEDS: LACTULOSE 20 GM/30 ML UDCUP PO SCH (20:07)
--- NOTE | 2025-03-12 20:15 | NUR ---
Spoke to son Mich Gil over the phone, general updates given.
[2025-03-12 20:53] LABS: IMMATURE GRANULOCYTE ABSOLUTE 0.27 K/uL (0-1); NUCLEATED RED BLOOD CELLS 8.3 % (0.0-0.19); PLATELET COUNT (AUTO) 25 K/uL (130-400); RED BLOOD CELL COUNT(AUTO) 2.65 MIL/uL (4.00-5.50); RED CELL DISTRIBUTION WIDTH 17.7 % (11.0-15.5); WHITE BLOOD COUNT (AUTO) 8.7 K/uL (4.8-10.8)
--- NOTE | 2025-03-12 20:56 | PN ---
SUBJECTIVE: The patient is postop day 4 from coronary artery bypass grafting requiring an L5.5 Impella. The patient's postop course has been complicated by respiratory and renal insufficiency. She also has had ischemic skin changes to her right [id number] amputation. Had her right femoral art line removed and her metabolic acidosis appears to be improving. She, however, remains on mechanical ventilator. She has abnormal renal and liver functions. She also has the Impella L5.[address] on a level of T7. She has been only making approximately 5 mL an hour of urine despite being on a Lasix drip at 10 mg/h. OBJECTIVE: VITAL SIGNS: The patient's oxygen saturation is at 96%. Her blood pressure is 105/67. HEENT: Reveals to be normocephalic and atraumatic. Her eyes are swollen shut due to edema in her eyelids. She has a right cervical Vernon-Shantelle catheter which is not reading a cardiac index. CHEST: Her sternal wound was bandaged. Her chest tubes are in place. LUNGS: Her lungs reveal coarse rhonchi and rales bilaterally. She has an L5.5 Impella left ventricular assist device exiting her left supraclavicular region. ABDOMEN: Reveals at least moderate obesity. GENITOURINARY: She has a Whitfield catheter in her bladder. EXTREMITIES: She has a right cjgrr-[id number] amputation with a very large, purplish blister at the end of the stump. There is some mottling that is restricted to below the knee. LABORATORY DATA: Her platelet count is 19,000. ASSESSMENT AND PLAN: * Status post coronary artery bypass grafting requiring Impella support. Continue the Impella at T7 and continue to attempt to wean off all pressors. Keep chest tubes in place. Continue aspirin despite her low platelet counts. * Postoperative acute pulmonary insufficiency. Continue mechanical ventilatory support until her pulmonary edema resolves. * Hypercholesterolemia. Her statin is being held due to her elevated transaminases. * Thrombocytopenia. Hematology has been consulted and has looked at her smear under the microscope. It feels this is not HIT and feels this is secondary to bone marrow suppressions. They recommend steroids. We transfused 2 units of platelets so that we could place a Mahurkar catheter for dialysis. * Acute kidney injury. We will have a catheter placed for hemodialysis, which Nephrology is willing to do. Thank you very much. TID: [id number] RECEIPT: [id number]
[2025-03-12 21:01] LABS: CREATININE 2.3 mg/dL (0.5-1.0); GLOMERULAR FILTR. RATE CALC 24.0 mL/min (>90); GLUCOSE,RANDOM 143.0 mg/dL (70-105); SODIUM SERUM 141.0 mmol/L (136-145); UREA NITROGEN, BLOOD 42.0 mg/dL (7-18)
[2025-03-12 21:24] LABS: ABG BASE EXCESS 1.2 mmol/L (-2.0-3.0); ABG HCO3 24.6 mmol/L (21.0-28.0); ABG OXYGEN SATURATION 98.9 % (94.0-98.0); ABG PCO2 34 mmHg (32-45); ABG PH 7.479 (7.350-7.450); CARBON MONOXIDE 1.7 % (0.5-1.5); DEVICE COMMENT ALINE RN TED; PO2, ARTERIAL BG 155.0 mmHg (83.0-108.0); TEMPERATURE, CELSIUS BG 37.0 CELSIUS (35.5-37.0); VENT MODE, BG SIMV PS10 (ROOM AIR)
[2025-03-12] MEDS: MAGNESIUM 2GM PREMIX 50ML 50 ML IV PRN (22:19)
[2025-03-13] VITALS (110 sets, daily range): BP systolic 96–132; BP diastolic 69–91; PULSE 63–87; RESP 17–43; TEMP 97.6–100.1; O2SAT 88–98
[2025-03-13 00:23] LABS: ABG BASE EXCESS -0.6 mmol/L (-2.0-3.0); ABG HCO3 23.5 mmol/L (21.0-28.0); ABG OXYGEN SATURATION 98.5 % (94.0-98.0); ABG PCO2 36 mmHg (32-45); ABG PH 7.428 (7.350-7.450); CARBON MONOXIDE 1.7 % (0.5-1.5); DEVICE COMMENT ALINE RN TED; PO2, ARTERIAL BG 147.6 mmHg (83.0-108.0); TEMPERATURE, CELSIUS BG 37.0 CELSIUS (35.5-37.0); VENT MODE, BG SIMV PS10 (ROOM AIR)
[2025-03-13 03:47] LABS: ABG BASE EXCESS -2.1 mmol/L (-2.0-3.0); ABG HCO3 22.7 mmol/L (21.0-28.0); ABG OXYGEN SATURATION 97.6 % (94.0-98.0); ABG PCO2 39 mmHg (32-45); ABG PH 7.388 (7.350-7.450); CARBON MONOXIDE 1.6 % (0.5-1.5); DEVICE COMMENT ALINE RN TED; PO2, ARTERIAL BG 114.6 mmHg (83.0-108.0); TEMPERATURE, CELSIUS BG 37.0 CELSIUS (35.5-37.0); VENT MODE, BG SIMV PS10 (ROOM AIR)
[2025-03-13 04:03] LABS: IMMATURE GRANULOCYTE ABSOLUTE 0.26 K/uL (0-1); NUCLEATED RED BLOOD CELLS 7.9 % (0.0-0.19); PLATELET COUNT (AUTO) 41 K/uL (130-400); RED BLOOD CELL COUNT(AUTO) 2.22 MIL/uL (4.00-5.50); RED CELL DISTRIBUTION WIDTH 18.8 % (11.0-15.5); WHITE BLOOD COUNT (AUTO) 8.1 K/uL (4.8-10.8)
[2025-03-13 04:14] LABS: INR 1.42 (0.85-1.15)
[2025-03-13 04:38] LABS: CREATININE 3.0 mg/dL (0.5-1.0); GLOMERULAR FILTR. RATE CALC 17.0 mL/min (>90); GLUCOSE,RANDOM 164.0 mg/dL (70-105); SODIUM SERUM 141.0 mmol/L (136-145); TOTAL PROTEIN, SERUM 5.6 g/dL (6.0-8.3); UREA NITROGEN, BLOOD 52.0 mg/dL (7-18)
[2025-03-13 04:43] LABS: LYMPHOCYTES % (MANUAL) 12 % (22-44); MAN.DIFF COMMENT-IMPRESSION MANUAL DIFFERENTIAL; MONOCYTES % (MANUAL) 4 % (2-9); PLATELET MORPHOLOGY COMMENT MARKED DECREASE; SEGMENTED NEUTROPHILS % 84 % (40-70)
[2025-03-13 05:07] LABS: ASPARTATE AMINOTRANSFERASE 2932.0 U/L (10-37)
[2025-03-13 05:08] LABS: CREATINE KINASE, TOTAL 4327.0 U/L (21-232)
[2025-03-13 07:43] LABS: ABG BASE EXCESS -3.6 mmol/L (-2.0-3.0); ABG HCO3 21.4 mmol/L (21.0-28.0); ABG OXYGEN SATURATION 98.3 % (94.0-98.0); ABG PCO2 38 mmHg (32-45); ABG PH 7.364 (7.350-7.450); CARBON MONOXIDE 1.6 % (0.5-1.5); PO2, ARTERIAL BG 135.7 mmHg (83.0-108.0); TEMPERATURE, CELSIUS BG 37.0 CELSIUS (35.5-37.0); VENT MODE, BG SIMV-VC PS10 (ROOM AIR)
[2025-03-13] MEDS ORDERED: dexmedeTOMIDine HCL 200mcg/2mL 400 MCG in 0.9%NACL 100ML 96 ML IV PRN (08:00)
[2025-03-13] MEDS: 0.9%NACL 1000ML 1,000 ML IV SCH ×2 (08:28→13:41)
--- NOTE | 2025-03-13 09:30 | NUR ---
DR DIANA PAYTON AT BEDSIDE, UPDATED ON LATEST LABS AND ABGS. MD INFORMED PT HAS ABSENT DORSALIS PEDIS PULSE AND FOOT IS MOTTLED, NEW ORDERS RECEIVED.
[2025-03-13 10:24] LABS: CREATININE 3.2 mg/dL (0.5-1.0); GLOMERULAR FILTR. RATE CALC 16.0 mL/min (>90); GLUCOSE,RANDOM 169.0 mg/dL (70-105); SODIUM SERUM 145.0 mmol/L (136-145); TOTAL PROTEIN, SERUM 5.3 g/dL (6.0-8.3); UREA NITROGEN, BLOOD 57.0 mg/dL (7-18)
[2025-03-13 10:30] LABS: ASPARTATE AMINOTRANSFERASE 2369.0 U/L (10-37)
[2025-03-13 10:42] LABS: HEPATITIS B SURFACE ANTIBODY Positive (Reactive)
[2025-03-13 10:43] LABS: HEPATITIS B CORE AB TOTAL Non-Reactive (Nonreactive)
--- NOTE | 2025-03-13 11:20 | PN ---
[facility] PROGRESS NOTE Date Patient Seen: Mar 13, 2025 Time of Visit: 11:20 Supervising Physician: Dr. 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 (LVEF: 40-45% by echo done on 02/25/2025) Unstable Angina POA Remote anterior wall myocardial infarction July 2024 complicated by cardiogenic shock requiring Impella support for PCI with subsequent ischemic leg requiring [id number] amputation CAD status post stenting of the proximal LAD proximal circumflex and mid circumflex artery as above with documented progression of disease December 2024 managed medically because of concern the patient would not be compliant with dual antiplatelet therapy Diabetes mellitus type 2 Dyslipidemia Chest pain comorbidities: HX of ACS-STEMI s/p PCI with VIANEY placement (BSS 3.0x20 mm) in the proximal LAD, VIANEY placement (BSS 3.5x16 mm) in the proximal LCx, VIANEY placement (BSS 3.0x12 mm) in the mid LCx, and VIANEY placement (BSS 2.75x24 mm) in the distal LCx done on 07/17/2024 Hx of Intraprocedural VT in July 2024 HX of cardiogenic shock requiring Impella placement in July 2024 HX of Right lower extremity ischemia secondary to Impella placement resulting in RLE limb ischemia s/p right BKA Hx of Ischemic cardiomyopathy Hx of Medication noncompliance Hx of Hypertension ] INTERVAL HISTORY: 03/09/2025: At the time of my evaluation, the patient was lying in bed. She is off sedation RASS score of -2. Patient remains intubated and mechanically vented, SIMV rate of 12, peep 8, Vt 550 and FiO2 50%. Chest tube remains in place, per the staff nurse current output of2 L bloody. On the monitor, the patient was tachycardic, tachypneic and with acceptable blood pressure readings. 5/[address] P 9. Laboratory data was notable for a H&H 7.4/20.6 platelet count of 55. Chemistry panel showed a sodium of 159, potassium of 4.3, chloride of 120, CO2 of 30, BUN 14, creatinine of 1.1 And a GFR of 57. Total bili of 1.3, AST 280, ALT35 and a alk-phos of 23. Chest imaging today showed bilateral infiltrates more pronounced on the right. Currently, the patient is on epi/levo/vaso drip. No other concern. 03/10/2025: At the time of my evaluation, the patient is lying in bed. The patient remains on mechanical ventilator support SIMV mode, FiO2 75%, peep of 5, rate of 18, vt 550. Chest tube pleural and mediastinal remained in place with a total output of 1030 mL. The patient is febrile T-max 103.3. Vital sign parameters shows tachycardia, tachypnea and soft blood pressure trend. Laboratory data showed stable H&H and platelet count showed a drop from 102-72. Chemistry panel showed a elevated sodium of 160, potassium 5.7, chloride is 113, BUN 26, creatinine of 1.9, GFR of 30. Total bilirubin of 8.5, AST 6256, ALT 2577 and a total CK of 2111. The patient remains coagulopathic. PT 21.4, INR 2.18. Chest imaging today showed concern for a large left pleural effusion. Currently, the patient remains on epi, levo, vaso, Lasix and bicarb. She also remains on antibiotic therapy with Zosyn. No other concern. 03/11/2025: At the time of my evaluation, the patient is lying in bed. The patient may remains mechanically vented on SIMV with pressure support of 10, rate 18, FiO2 75, Vt 550 and a PEEP of 8. Vital signs, are unremarkable. L aboratory data today, showed a WBC 6.6, H&H 9.4/27.1 and a platelet count of 56. Chemistry panel showed a sodium of 151, potassium of 5.8, chloride of 108, CO2 of 20, BUN 42,, creatinine of 2.6 and a GFR of 20. Total bili of 9.6, AST 30031, ALT 2651 alk-phos of 89, total CK of 3243 chest x-ray showed bilateral pulmonary vascular congestion and infiltrate. Left pleural effusion has improved after chest tube placement on 03/10/2025. Currently, the patient continues on epi, levo, vaso and Lasix. She is also on IV Zosyn. No other complaint. 03/12/2025: At the time of my evaluation, the patient was lying in bed. She generally remains in the same condition. The patient remains on a mechanical ventilator support SIMV mode. Repeat chest x-ray today showed worsening bilateral pulmonary edema. Chest tube bilateral remained in place. Vital signs today are unremarkable. Impella remains in place P7. Laboratory data showed H&H of 8.7/25.2 and a platelet count of 19, no leukocytosis. Chemistry panel was notable for a sodium of 146, potassium of 5.3, chloride of 104, CO2 of 27, BUN of 55, creatinine of 3.3 and a GFR of 1. Total bili of 11.0, AST of 4866, ALT of 1460. Currently, the patient is on epi, levo and Lasix. Also the patient receiving antibiotic therapy with Zosyn. 03/13/2025: At the time of my evaluation, the patient is lying in bed. She remains intubated and mechanically vented. Currently SIMV respiratory rate 18, FiO2 60%. Vital signs currently unremarkable. Laboratory data showed a drop in H&H 7.3/21.1 and a platelet count of 41. Chemistry panel showed elevated potassium of 5.6, BUN of 57 , creatinine of 3.2 and a GFR of 16. Liver parameters showing a total bili of 13.0, AST 2369, ALT 850 and a alk-phos of 220. Imaging showed a chest x-ray with a again pulmonary vascular congestion and minimal bilateral pleural effusion. Currently, the patient remains on fentanyl, EPI, levo and Lasix. She also remains on antibiotic therapy with Zosyn. No other complaint. REVIEW OF SYSTEMS: unable to perform PHYSICAL EXAM: GENERAL: critically ill intubated HEENT: Sclera non icteric, moist mucosa NECK: Supple, no JVD, trachea midline , impella 5.5 LUNGS: diminished breath sounds bilaterally. No wheezes HEART: Regular rate and rhythm. Normal S1 and S2, without murmurs, chest tube in place ABD: Abdomen soft, nontender. Bowel sounds present EXT: No clubbing cyanosis or edema rt BKA NEURO: Deferred. Vital Signs (last 8hr) Date Time Temp Pulse Resp B/P (MAP) Pulse Ox O2 Delivery O2 Flow Rate FiO2 03/13/25 10:45 79 21 110/74 (86) 94 03/13/25 10:30 80 18 110/75 (87) 94 03/13/25 10:15 77 26 109/74 (86) 94 03/13/25 10:00 81 60 03/13/25 10:00 78 26 108/74 (85) 93 03/13/25 09:45 75 26 97/69 (78) 91 03/13/25 09:30 80 24 106/73 (84) 94 03/13/25 09:15 81 22 105/72 (83) 94 03/13/25 09:00 83 23 108/74 (85) 94 03/13/25 08:45 86 21 116/78 (91) 95 03/13/25 08:30 87 24 106/74 (85) 96 03/13/25 08:15 82 21 117/78 (91) 94 03/13/25 08:04 60 03/13/25 08:00 99.3 83 22 116/78 (91) 95 03/13/25 08:00 96 Ventilator+ 60 03/13/25 07:58 99.3 Ventilator 60 03/13/25 07:45 82 22 111/77 (88) 95 03/13/25 07:30 83 18 122/80 (94) 95 03/13/25 07:15 84 19 115/74 (88) 95 03/13/25 07:00 83 24 111/72 (85) 95 03/13/25 06:45 80 36 107/72 (84) 95 03/13/25 06:30 81 60 03/13/25 06:30 80 30 109/72 (84) 95 03/13/25 06:15 79 30 110/72 (85) 97 03/13/25 06:00 79 30 108/72 (84) 96 60 03/13/25 05:45 79 35 110/73 (85) 94 03/13/25 05:30 82 35 114/75 (88) 89 03/13/25 05:15 85 34 115/74 (88) 97 03/13/25 05:00 82 17 122/74 (90) 77 60 03/13/25 04:45 82 21 121/75 (90) 73 03/13/25 04:30 86 25 114/71 (85) 69 03/13/25 04:15 81 27 117/71 (86) 73 03/13/25 04:06 Ventilator+ 60 03/13/25 04:04 60 6/28/25 04:00 99.3 Ventilator 60 03/13/25 04:00 80 43 111/69 (83) 75 60 03/13/25 03:45 81 40 110/69 (83) 74 03/13/25 03:40 86 60 03/13/25 03:29 82 43 105/70 (82) 73 LABS: Hematology Labs: Test 03/13/25 03:45 Range/Units White Blood Count 8.1 4.8-10.8 K/uL Red Blood Count 2.22 L 4.00-5.50 MIL/uL Hemoglobin 7.3 L 12.0-16.0 g/dL Hematocrit 21.1 L 36-48 % Mean Corpuscular Volume 95.0 79-99 fL Mean Corpuscular Hemoglobin 32.9 27.0-33.0 pg Mean Corpuscular Hemoglobin Concent 34.6 32.0-36.0 g/dL Red Cell Distribution Width 18.8 H 11.0-15.5 % Platelet Count 41 #L 130-400 K/uL Mean Platelet Volume 9.2 7.5-10.5 fL Immature Granulocyte % (Auto) 3.2 H 0-1 % Neutrophils (%) (Auto) 85.3 H 40.0-77.0 % Lymphocytes (%) (Auto) 4.7 L 21.0-51.0 % Monocytes (%) (Auto) 6.3 3.0-13.0 % Eosinophils (%) (Auto) 0.1 0.0-8.0 % Basophils (%) (Auto) 0.4 0.0-5.0 % Neutrophils # (Auto) 6.9 1.8-7.7 K/uL Lymphocytes # (Auto) 0.4 L 1.0-4.8 K/uL Monocytes # (Auto) 0.5 0.1-1.0 K/uL Eosinophils # (Auto) 0.01 0.00-0.70 K/uL Basophils # (Auto) 0.03 0.00-0.20 K/uL Absolute Immature Granulocyte (auto 0.26 0-1 K/uL Segmented Neutrophils % 84 H 40-70 % Lymphocytes % (Manual) 12 L 22-44 % Monocytes % (Manual) 4 2-9 % Nucleated Red Blood Cells 7.9 H 0.0-0.19 % Differential Comment MANUAL DIFFERENTIAL White Cell Morphology Comment Platelet Morphology Comment MARKED DECREASE Red Blood Cell Morphology Chemistry Labs: Test 03/13/25 09:47 03/13/25 03:45 03/12/25 18:33 03/12/25 12:59 Range/Units Sodium Level 145 136-145 mmol/L Potassium Level 5.6 H 3.5-5.1 mmol/L Chloride Level 104 101-111 mmol/L Carbon Dioxide Level 24 21-32 mmol/L Blood Urea Nitrogen 57 H 7-18 mg/dL Creatinine 3.2 H 0.5-1.0 mg/dL Glomerular Filtration Rate Calc 16 >90 mL/min Random Glucose 169 H 70-105 mg/dL Total Calcium 9.3 8.5-10.1 mg/dL Total Bilirubin 13.0 H 0.2-1.0 mg/dL Aspartate Amino Transf (AST/SGOT) 2369 *H 10-37 U/L Alanine Aminotransferase (ALT/SGPT) 850 *H 12-78 U/L Alkaline Phosphatase 220 H 50-136 U/L Total Protein 5.3 L 6.0-8.3 g/dL Albumin 3.2 L 3.5-5.0 g/dL Lactic Acid Level 7.7 H 0.8-2.5 mmol/L Magnesium Level 2.40 1.80-2.40 mg/dL Direct Bilirubin 8.8 *H 0.0-0.3 mg/dL Total Creatine Kinase 4327 *H 21-232 U/L Amylase Level 75 25-115 U/L Lipase 66 16-77 U/L Hemoglobin A1c 5.7 4.0-6.0 % Estimated Average Glucose (eAG) 117 70-126 mg/dL Iron Level 175 H 50-170 mcg/dL Total Iron Binding Capacity 197 L 250-450 mcg/dL Percent Iron Saturation 88.8 H 22-44 % Ferritin 7157 H 15-150 ng/mL Triglycerides Level 145 30-200 mg/dL Cholesterol Level 54 # <200 mg/dL LDL Cholesterol 36 0-99 mg/dL HDL Cholesterol 18 L 35-85 mg/dL Ammonia 25 11-32 umol/L Coagulation Labs: Test 03/13/25 09:47 03/13/25 03:45 Range/Units Activated Partial Thromboplast Time 36.9 H 26.3-35.5 SEC Prothrombin Time 14.5 H 9.6-11.6 SEC Prothromb Time International Ratio 1.42 H 0.85-1.15 Fibrinogen 199 180-350 mg/dL DIAGNOSTICS / RADIOLOGY RESULTS: [ ] PLAN Follow CT surgeon recommendations Follow cardiology recommendations Multimodal pain management Monitoring H&H Monitor chest tube output Chest x-ray in the morning Start SBT's as tolerated Pending 2D echo post cabg POCUS US continue impella support per cardiology follow chest XR Monitor ABGs Transfuse if absolutely necessary to keep hemoglobin above 8 Maintain O2 sats greater than 92% Incentive spirometry once extubated Hemoglobin A1 Glycemic control with goal of 80-180 Referral for cardiac rehabilitation Speech to eval once patient is extubated monitor electrolytes: K Goal of 4 Magnesium goal of 2 Replace accordingly monitor hemodynamic and continue support with pressors 03/09/2025: For now, going to continue current management for the patient. She will remain intubated and will be extubated per the CTS/CABG protocol. Patient will continue on cardiac management per the Cardiology team/CTVS. Because of her severe anemia, she was ordered to receive a unit of whole blood and 2 units of platelet which are pending to be infused. We will continue to monitor the H&H trend. Balloon pump remains in place as well as Cordis and chest tube mediastinal and pleural. We will repeat surveillance labs in morning. We will follow the recommendation of the CTS and we will intervene if necessary. We will continue to provide general supportive care, GI and DVT prophylaxis. Further orders per attending MD and hospital course. 03/10/2025: For now, going to continue current management. The patient will remains intubated and mechanically vented. Because of the appearance of a large left pleural effusion, we are asked to a chest tube for drainage. This will be placed at the bedside. The patient remains with mediastinal and pleural chest t ube in place. Impella remains in place, P5. Continue with pressor therapy, diuretic and antibiotic. I am going to repeat surveillance labs in the morning as was as a chest x-ray. Nephrology was consulted for further renal management, we will await their input. I discussed the findings and plan for further management with the staff nurse. No family member present at the bedside. We will monitor the patient's progress and response to management. We will continue to provide general supportive care, GI and DVT prophylaxis. Further orders per attending MD and hospital course. 03/11/2025: For now, going to continue current management for the patient. Patient received a dose of Kayexalate earlier for management of the hyperkalemia, we will repeat level and decide on further need for extra dose of Kayexalate. Per the Cardiothoracic surgeon recommendations were to obtain a hit panel and consult the timers inspector for further input on management due to her low platelet count. We will follow their recommendation. The patient will remain on mechanical ventilator support and sedation. We will follow the chest tube output. There was slight improvement of her liver parameters and total CK increase. I discussed the findings and plan for further management with the staff nurse. We will monitor the patient's progress and response to management. We will continue to provide general supportive care, GI and DVT prophylaxis. Further orders per attending MD and hospital course. 03/12/2025: For now, going to continue current management for the patient. We will continue antibiotic therapy as ordered. I am going to request a ammonia l evel and a repeat chest x-ray. Lokelma 10 mg was administered in attempt of correcting the hyperkalemia. I strongly believe the patient would benefit from hemodialysis to off load fluid. We will follow the watch parts inspector's input. We will also discuss the case with the [facility]. I discussed the findings and plan for further management with the staff nurse. We will monitor the patient's progress and response to management. We will continue to provide general supportive care, GI and DVT prophylaxis. Further orders per attending MD and hospital course. 03/13/2025: For now, we are going to continue current management for the patie nt. We will continue with mechanical ventilator support and adjust as necessary. Continue pressor therapy as ordered. Impella 5/[address] P7[address] The patient is a new start of hemodialysis with removal of 1 L on 03/13/2025 and is scheduled for hemodialysis today with a goal of 2 L3 hours. We will continue to follow the potassium trend and hope for correction with hemodialysis. The left lower extremity was noted to be mottled today compared to previous days and is cool to palpation. I am going to request a arterial Doppler study to rule out occlusion. Contracts Administrator of the patient consulted and from his standpoint, findings were not consistent with hit rather consumption and bone marrow suppression. I discussed the findings and plan for further management with the staff nurse. We will monitor the patient's progress and response to management. We will continue to provide general supportive care, GI and DVT prophylaxis. Further orders per attending MD and hospital course. NEURO: Minimize central acting medications as possible. Fall Precautions. Well lighted room through the day and minimize interruptions through the night to prevent acute delirium. PULMONARY: Supplemental 02 as needed Titrate Fio2 to keep Spo2 > or = 90% DuoNebs and CPT as needed IS hourly while awake for pulmonary hygiene Out of bed to chair as tolerated VAP Bundle Ventilator per CV protocol CARDIOVASCULAR: Follow hemodynamics. Titrate vasopressor to keep MAP >65 or systolic blood pressure >95mmHg DRIPS: levophed vasopressin epi Lasix LINES: cvc impella chest tube et tube og tube A-line manjarrez GI & NUTRITION: Continue nutritional support Aspirations precautions Prokinetic agents and laxatives as needed KIDNEYS & ELECTROLYTES: Strict monitoring of intake and output Daily weights Avoid nephrotoxic agents Monitor electrolytes and replace as needed Goal urine output of 30mL/hr or 0.5mL/kg/hr Urine output: [ ] Fluid Balance: [ ] ENDOCRINE: Maintain blood glucose between 100-180 at all times. Insulin sliding scale for blood glucose management INFECTIOUS DISEASE: Trend temperature. Combs-culture if febrile. Micro: [ ] MRSA negative Antibiotics: Zosyn HEMATOLOGY & COAGULATION: Monitor H&H. Keep Hgb > 7 Transfuse 1 unit of PRBC for Hgb < 7 Transfuse 1 pack of platelets of platelets < 20, 000 Watch for any signs and symptoms of bleeding SKIN: Pressure ulcer prevention per facility protocol Rehab: PT/OT Prophylaxis: GI: pepcid DVT: [ tedhose ac per cv ] Code Status: Full Resuscitation Disposition: [ICU ] Other: I personally spent 50 minutes of critical care time in treatment of this pat ient. This includes patient management, time at bedside, time reviewing tests, labs, appropriate images and studies, documentation, and patient care coordination. This time excludes separately billable procedures. Patient was seen and case discussed with purnima POWERS. Plan of care was discussed and agreed upon. AYLEEN NAVA BAKER HEAD Mar 13, 2025 11:20
[2025-03-13 12:14] LABS: ABG BASE EXCESS -3.6 mmol/L (-2.0-3.0); ABG HCO3 21.0 mmol/L (21.0-28.0); ABG OXYGEN SATURATION 98.8 % (94.0-98.0); ABG PCO2 36 mmHg (32-45); ABG PH 7.385 (7.350-7.450); CARBON MONOXIDE 1.6 % (0.5-1.5); DEVICE COMMENT RN ARACELY; PO2, ARTERIAL BG 168.2 mmHg (83.0-108.0); TEMPERATURE, CELSIUS BG 37.0 CELSIUS (35.5-37.0); VENT MODE, BG SIMV PS10 (ROOM AIR)
--- NOTE | 2025-03-13 13:27 | PN ---
[facility] PROGRESS NOTE Date of Service: Mar 13, 2025 Time of Service: 12:42 SUBJECTIVE: [ ] admission date: 02/24/25 PCP: Agnieszka Shi DO chief complaint: Chest pain Primary chipper operator: Dr Jefry Osorio This is a 59-year-old female presents in ED with chief complaints of chest pain. Onset started this morning at 2:00 a.m. patient was awaken with chest pain. Reports she has been having chest pain for a week. Location midsternal does not radiate,location midsternal stated the pain on arrival was 10/10 on pain scale. aggravated none: alleviating factors: none. Patient denies palpitation, dizziness, shortness for breath. 12 lead EKG on arrival showed heart rate [address] depression in the lateral Leads. As per ED physician changes in V5 and V6 were not seen in December 2024. Presence of LVH noted anterior STT wave changes were also. ER initiated heparin drip. Was given Full dose Aspirin and Morphine 2 mg IV x1. Troponin 1st set was negative. 02/25/25 patient was seen earlier patient reports she had chest pain overnight 3:00 a.m. patient was given nitroglycerin: continue on Heparin drip; Echo pending no chest pain at this time. she is fully alert oriented x3. 02/26/25 2D echocardiogram revealed a hypokinetic anteroseptal and anterolateral wall. LVEF 40-45%, the patient denies any cardiac symptoms or chest pain. Dr Osorio recommendations: lexiscan in am medical management for now ASA 81 mg daily , Prasugrel 10 mg daily ,Atorvastatin 40 mg daily, Imdur 30 mg daily changed Toprol XL to 25 mg daily patient is fully awake alert oriented x3. out of bed to chair with meals. Denied chest pain palpitation dyspnea. 02/27/25 patient is seen and examined patient underwent Lexiscan pending results. We will continue to monitor patient closely. She is asleep and waking per verbal stimuli primary nurse reports she was having GI problems post Lexiscan. 02/28/25 s/p Lexiscan Reversible large defect in the anterior, septal lucas. TID 1.19. LVEF 39%. Dr Osorio scheduled the patient for Left Heart cath tomorrow. The patient denies chest pain palpitation dyspnea. 03/01/25 patient was evaluated this continues without chest pain or palpitations patient had a Lexiscan stress test is PCI this after the. Patient NPO after breakfast. 03/02 patient was seen by nurse practitioner and physician during rounding in room 429. Patient is s/p left heart catheterization 03/01/[address] Jefry osorio and at this moment he is recommending cardiovascular surgeon for possible CABG evaluation. Once patient will be medically stable we will consult [facility] for evaluation. Continue one-to-one sitter for now. Continue to monitor patient in the meantime. A.m. labs 03/03 patient was seen by nurse practitioner physician during rounding. Patient was seen by cardiovascular surgeon and is pending CABG as per note at the end of this week. As per RN patient's blood pressure has been on lower side. We will order midodrine 10 mg p.r.n. t.i.d. for systolic less than 100. As per chipper operator Dr. Jefry osorio who was rounding okay with the above-stated medicine. We will continue to monitor patient in the meantime. A.m. labs. 03/04 patient was seen by nurse practitioner and physician during rounding. Patient was evaluated by the cardiovascular surgeon and he is came to perform CABG once the patient will be off Effient for 5 to 7 days. Last dose that was administered to the patient of Effient 10 mg was given on 03/01/2025 at 12:16 p.m. we will continue to monitor patient in the meantime. A.m. labs 03/05 patient was seen by nurse practitioner and physician during rounding in room 429. Patient is pending CABG once 5 to 7 days of Effient on hold we will be completed. WBC 7.3. Electrolyte replaced per protocol. Patient denies any shortness of breath, chest pain, nausea, vomiting or any other discomfort at this moment. We will continue to monitor patient in the meantime. A.m. labs 03/06/2025 - patient is seen in room 429, patient had an episode of intermittent chest pain on exertion when she went to the washroom. Chest pain relieved with sublingual nitro, troponin and EKG were ordered which were normal. Ordered digital community manager cortisol, we will follow up with the lab. Patient to be scheduled for CABG. Heart rate currently on the lower side around 50s - 60s. Patient is asymptomatic otherwise, we will follow the patient closely. 03/07 patient was seen by nurse practitioner physician during rounding in room 429. Patient is pending CABG by cardiovascular surgeon possibly tomorrow 03/08/2025. During evaluation patient denies any shortness of breath, chest pain, nausea, vomiting or any other discomfort. Patient will receive a dose of potassium. We will continue to monitor patient in the meantime. A.m. labs 03/08 patient was seen by nurse practitioner and physician during rounding in room 213. Patient is s/p CABG. No family members at the bedside at this moment. We will continue to monitor patient in the meantime. A.m. labs 03/09 was seen by nurse practitioner and physician during rounding in room 213. Patient is s/p CABG day 1. Due to hypotension and cardiogenic shock Impella was placed. Chest tube output within 24 hours 2 L. currently patient is on three pressor support requiring mechanical ventilation support. Peak 55, peep eight 50% O2. Urine output 850 cc. No family members at the bedside. We will continue CV surgery recommendation We will continue to monitor patient in the meantime. A.m. labs 03/10 patient was seen by nurse practitioner and physician during rounding in room 213. Patient continues to be intubated. Chest tube is draining about 10 to 20 mL/hour. Urine output about 5 to 10 mL/hour. Patient was placed on Lasix drip 10 milligrams/hour. Nephrology consulted for ARIADNE. Patient continues to be on epi, levo and vasopressor. Patient also experience a temperature of 103 last night blood culture were ordered patient was placed on Zosyn for now. We will continue to monitor patient in the meantime. A.m. 03/11 patient was seen by nurse practitioner physician during rounding in room 213. Patient continues to be intubated. Rate 18 Peak 60 tidal volume 580 peep eight 0 2% at 75%. Total output from the chest tube on the right within 24 hours was 550. There is a new left chest tube that was put in yesterday 03/10/2025 and total output as of now it is 820. Urine outpu 800t 150 bypass 24 hours. Patient continues to be on Lasix drip 10 milligrams/hour. Continue epi, levo, vasopressor and antibiotics Zosyn. AST 45037 ALT 2651 CK 3243. We will continue to monitor patient in the meantime. A.m. labs 03/12 patient was seen by IC DESIGN MANAGER and physician. Patient is still intubated. Urine output less than 5 mL per hour. Lollypop Machine Operator was consulted concern for HIT. Platelets 23. Patient continues to be on Lasix 10 milligrams/hour. Continue epi, levo. Patient was weaned off of vasopressor. Left chest tube drain about 30 mL in the last 24 hours. Right pleural chest drain about 500 mL in the past 24 hours. Patient is pending JOSIE and chest x-ray today. No family members at the bedside. Continue Zosyn. WBC 7.9. Bilirubin 11 AST 5742 ALT 1752 CK 4964. Final urine culture negative. Blood culture no growth in last 24 hours. Continue to monitor patient. A.m. labs 03/13 Patient is seen at the bedside. She remains on mechanical ventilation. Impella in place with flow rate of 4.3-4.5 liter/minute. Sedated currently on Precedex 0.4 mcg/kg per hour. Mediastinal Chest tube drainage of 110 mL noted today. Urine output 115 mL. Her left lower extremity appears Pale and mottled, cold to touch and has an absent dorsalis pedis pulse. We will order an arterial ultrasound to assess the blood flow and she is started on heparin protocol by CTS consult. Fluid collection is noted around rt BKA site. Wound care consult recommended no further interventions. Hemoglobin 7.3 on IV Venofer as per Hematology consult, platelets 46680 post 2 unit platelet transfusion, PT 14.5, INR 1.42, BUN 52 , creatinine 3, potassium 5.3, direct bilirubin 8.8, AST improved from to 5868-5395, ALT improved from 907-850, TCK improved from 4964 to 4327, alkaline phosphatase 226. 1 L of fluid is removed during dialysis session yesterday. She is due for another dialysis session today. REVIEW OF SYSTEMS: unable to perform PHYSICAL EXAM: GENERAL: critically ill, intubated HEENT: Sclera non icteric, moist mucosa NECK: Supple, no JVD, trachea midline , impella with flow rate of 4-4.5 LUNGS: diminished breath sounds bilaterally. No wheezes, bilateral chest tubes intact HEART: Regular rate and rhythm. Normal S1 and S2, without murmurs, chest tube in place ABD: Abdomen soft, nontender. Bowel sounds present EXT: rt BKA, localized fluid collection noted around right BKA site NEURO: Deferred. Vital Signs (last 8hr) Date Time Temp Pulse Resp B/P (MAP) Pulse Ox O2 Delivery O2 Flow Rate FiO2 03/13/25 12:20 81 50 03/13/25 12:00 100.0 Ventilator 60 03/13/25 11:50 60 03/13/25 11:30 80 36 107/72 (84) 93 03/13/25 11:15 79 20 110/74 (86) 93 03/13/25 11:00 80 19 113/76 (88) 94 03/13/25 10:45 79 21 110/74 (86) 94 03/13/25 10:30 80 18 110/75 (87) 94 03/13/25 10:15 77 26 109/74 (86) 94 03/13/25 10:00 81 60 03/13/25 10:00 78 26 108/74 (85) 93 03/13/25 09:45 75 26 97/69 (78) 91 03/13/25 09:30 80 24 106/73 (84) 94 03/13/25 09:15 81 22 105/72 (83) 94 03/13/25 09:00 83 23 108/74 (85) 94 03/13/25 08:45 86 21 116/78 (91) 95 03/13/25 08:30 87 24 106/74 (85) 96 03/13/25 08:15 82 21 117/78 (91) 94 03/13/25 08:04 60 03/13/25 08:00 99.3 83 22 116/78 (91) 95 03/13/25 08:00 96 Ventilator+ 60 03/13/25 07:58 99.3 Ventilator 60 03/13/25 07:45 82 22 111/77 (88) 95 03/13/25 07:30 83 18 122/80 (94) 95 03/13/25 07:15 84 19 115/74 (88) 95 03/13/25 07:00 83 24 111/72 (85) 95 03/13/25 06:45 80 36 107/72 (84) 95 03/13/25 06:30 81 60 03/13/25 06:30 80 30 109/72 (84) 95 03/13/25 06:15 79 30 110/72 (85) 97 03/13/25 06:00 79 30 108/72 (84) 96 60 03/13/25 05:45 79 35 110/73 (85) 94 03/13/25 05:30 82 35 114/75 (88) 89 03/13/25 05:15 85 34 115/74 (88) 97 03/13/25 05:00 82 17 122/74 (90) 77 60 03/13/25 04:45 82 21 121/75 (90) 73 LABS: Laboratory: Test 03/13/25 12:13 03/13/25 09:47 03/13/25 03:45 03/12/25 18:33 Range/Units Blood Gas Specimen Type Arterial Arterial Blood pH 7.385 7.350-7.450 Arterial Blood Partial Pressure CO2 36 32-45 mmHg Arterial Blood Partial Pressure O2 168.2 H 83.0-108.0 mmHg Arterial Blood HCO3 21.0 21.0-28.0 mmol/L Arterial Blood Oxygen Saturation 98.8 H 94.0-98.0 % Arterial Blood Base Excess -3.6 L -2.0-3.0 mmol/L Hemoglobin (Blood Gas) 7.9 L 12.0-16.0 g/dL Sodium (Blood Gas) 140 136-145 MMOL/L Bedside Potassium (Blood Gas) 5.4 H 3.4-4.5 MMOL/L Bedside Chloride (Blood Gas) 101 98-107 MMOL/L Bedside Glucose (Blood Gas) 181 H 65-95 MG/DL Bedside Ionized Calcium (Blood Gas) 1.14 L 1.15-1.33 MMOL/L Bedside Lactic Acid (Blood Gas) 8.21 *H 0.36-0.75 MMOL/L Blood Gas Temperature 37.0 35.5-37.0 CELSIUS Blood Gas Respiration Rate 18.0 min. Blood Gas Vent Mode SIMV PS10 ROOM AIR FiO2 60.0 % Blood Gas Tidal Volume 550 ml Blood Gas PEEP 8 cm H2O Blood Gas Specimen Comment RN DESIREE Activated Partial Thromboplast Time 36.9 H 26.3-35.5 SEC Sodium Level 145 136-145 mmol/L Potassium Level 5.6 H 3.5-5.1 mmol/L Chloride Level 104 101-111 mmol/L Carbon Dioxide Level 24 21-32 mmol/L Blood Urea Nitrogen 57 H 7-18 mg/dL Creatinine 3.2 H 0.5-1.0 mg/dL Glomerular Filtration Rate Calc 16 >90 mL/min Random Glucose 169 H 70-105 mg/dL Total Calcium 9.3 8.5-10.1 mg/dL Total Bilirubin 13.0 H 0.2-1.0 mg/dL Aspartate Amino Transf (AST/SGOT) 2369 *H 10-37 U/L Alanine Aminotransferase (ALT/SGPT) 850 *H 12-78 U/L Alkaline Phosphatase 220 H 50-136 U/L Total Protein 5.3 L 6.0-8.3 g/dL Albumin 3.2 L 3.5-5.0 g/dL White Blood Count 8.1 4.8-10.8 K/uL Red Blood Count 2.22 L 4.00-5.50 MIL/uL Hemoglobin 7.3 L 12.0-16.0 g/dL Hematocrit 21.1 L 36-48 % Mean Corpuscular Volume 95.0 79-99 fL Mean Corpuscular Hemoglobin 32.9 27.0-33.0 pg Mean Corpuscular Hemoglobin Concent 34.6 32.0-36.0 g/dL Red Cell Distribution Width 18.8 H 11.0-15.5 % Platelet Count 41 #L 130-400 K/uL Mean Platelet Volume 9.2 7.5-10.5 fL Immature Granulocyte % (Auto) 3.2 H 0-1 % Neutrophils (%) (Auto) 85.3 H 40.0-77.0 % Lymphocytes (%) (Auto) 4.7 L 21.0-51.0 % Monocytes (%) (Auto) 6.3 3.0-13.0 % Eosinophils (%) (Auto) 0.1 0.0-8.0 % Basophils (%) (Auto) 0.4 0.0-5.0 % Neutrophils # (Auto) 6.9 1.8-7.7 K/uL Lymphocytes # (Auto) 0.4 L 1.0-4.8 K/uL Monocytes # (Auto) 0.5 0.1-1.0 K/uL Eosinophils # (Auto) 0.01 0.00-0.70 K/uL Basophils # (Auto) 0.03 0.00-0.20 K/uL Absolute Immature Granulocyte (auto 0.26 0-1 K/uL Segmented Neutrophils % 84 H 40-70 % Lymphocytes % (Manual) 12 L 22-44 % Monocytes % (Manual) 4 2-9 % Nucleated Red Blood Cells 7.9 H 0.0-0.19 % Differential Comment MANUAL DIFFERENTIAL White Cell Morphology Comment Platelet Morphology Comment MARKED DECREASE Red Blood Cell Morphology Prothrombin Time 14.5 H 9.6-11.6 SEC Prothromb Time International Ratio 1.42 H 0.85-1.15 Fibrinogen 199 180-350 mg/dL Lactic Acid Level 7.7 H 0.8-2.5 mmol/L Magnesium Level 2.40 1.80-2.40 mg/dL Direct Bilirubin 8.8 *H 0.0-0.3 mg/dL Total Creatine Kinase 4327 *H 21-232 U/L Amylase Level 75 25-115 U/L Lipase 66 16-77 U/L Hemoglobin A1c 5.7 4.0-6.0 % Estimated Average Glucose (eAG) 117 70-126 mg/dL Iron Level 175 H 50-170 mcg/dL Total Iron Binding Capacity 197 L 250-450 mcg/dL Percent Iron Saturation 88.8 H 22-44 % Ferritin 7157 H 15-150 ng/mL Triglycerides Level 145 30-200 mg/dL Cholesterol Level 54 # <200 mg/dL LDL Cholesterol 36 0-99 mg/dL HDL Cholesterol 18 L 35-85 mg/dL Hepatitis B Surface Antigen. Non-Reactive Nonreactive Hepatitis B Surface Antibody. Positive Reactive Hepatitis B Core Total Antibody. Non-Reactive Nonreactive Hepatitis C Antibody Non-Reactive Nonreactive HIV (1&2) Antibody Non-Reactive Negative HIV P24 Antigen, Qualitative Non-Reactive Negative Test 03/12/25 12:59 Range/Units Ammonia 25 11-32 umol/L Current Medications Medications (Trade) Dose Ordered Sig/Toby Route PRN Reason Start Time Stop Time Status Last Admin Dose Admin Acetaminophen (TYLenol 325MG TAB) 650 mg Q4H PRN PO TEMPERATURE GREATER THAN 101.5 02/24/25 07:00 03/26/25 06:59 03/01/25 19:06 650 MG Acetaminophen (TYLenol 325MG TAB) 650 mg Q4H PRN PO MILD PAIN (1-3) 03/02/25 02:30 04/01/25 02:29 03/04/25 10:39 650 MG Acetaminophen (TYLenol 325MG TAB) 650 mg Q4H PRN PO Temp >38.3C(AFTER EXTUBATION) 03/08/25 09:30 03/08/25 09:29 DC Acetaminophen (TYLenol 325MG TAB) 650 mg Q6H PRN PO MILD PAIN (1-3) 03/08/25 09:30 03/08/25 09:36 DC Acetaminophen (TYLenol 650MG SUPPOSITORY) 650 mg Q4H PRN RC Temp >38.3C WHILE INTUBATED 03/08/25 09:30 04/07/25 09:29 Acetaminophen (acetaMINOPHEN) 1,000 mg Q6H6 IV 03/08/25 13:00 03/09/25 12:59 DC 03/09/25 12:00 1,000 MG Albumin Human 50 ml @ 999 mls/hr Q6H IV 03/08/25 17:00 03/09/25 11:02 DC 03/09/25 10:10 999 MLS/HR Albumin Human 250 ml @ 0 mls/hr AD IV 03/08/25 19:00 03/10/25 06:44 DC 03/09/25 08:36 1,200 MLS/HR Albumin Human 250 ml @ 0 mls/hr AD PRN IV IF HEMODYNAMICALLY UNSTABLE 03/08/25 09:30 03/08/25 18:48 DC 03/08/25 18:48 1,200 MLS/HR Albumin Human 500 ml @ 0 mls/hr AD IV 03/08/25 20:00 03/09/25 15:49 DC 03/09/25 11:35 1,200 MLS/HR Albumin Human 500 ml @ 0 mls/hr AD IV 03/09/25 22:00 03/14/25 21:59 03/10/25 18:06 999 MLS/HR Aminocaproic Acid 63575 mg/Sodium Chloride 310 ml @ 25 mls/hr AD IV 03/08/25 09:30 03/08/25 09:31 DC Aminocaproic Acid 18483 mg/Sodium Chloride 480 ml @ 0 mls/hr AD PRN IV BLEEDING CONTROL 03/08/25 07:00 04/07/25 06:59 Amiodarone HCl 360 mg/Dextrose 207.2 ml @ 33.3 mls/hr AD IV 03/08/25 13:00 03/08/25 12:52 DC Amiodarone HCl 360 mg/Dextrose 207.2 ml @ 33.3 mls/hr AD IV 03/08/25 13:00 03/08/25 12:52 DC Amiodarone HCl 540 mg/Dextrose 310.8 ml @ 16.7 mls/hr [id number] STAT IV 03/08/25 12:45 03/08/25 20:15 DC 03/08/25 16:44 16.7 MLS/HR Aspirin (Aspirin 81mg Chew Tab) 81 mg DAILY PO 02/25/25 09:00 03/01/25 12:33 DC 02/28/25 09:18 81 MG Aspirin (Aspirin 81mg Chew Tab) 81 mg DAILY PO 03/02/25 09:00 04/01/25 08:59 03/10/25 08:16 81 MG Aspirin (Aspirin 81mg Ec Tab) 81 mg DAILY PO 02/24/25 09:00 02/24/25 08:52 DC Atorvastatin Calcium (LIPItor 20MG) 20 mg HS PO 02/24/25 21:00 02/24/25 08:52 DC Atorvastatin Calcium (LIPItor 40MG) 40 mg HS PO 02/24/25 21:00 03/12/25 08:25 DC 03/11/25 20:11 40 MG Calcium Gluconate 1 gm/Sodium Chloride 60 ml @ 200 mls/hr AD PRN IV HYPOCALCEMIA 03/08/25 09:30 04/07/25 09:29 03/13/25 03:50 200 MLS/HR Cefazolin Sodium (Ancef) 2 gm ONCALL IVP 03/07/25 22:00 03/09/25 21:59 DC Cefazolin Sodium (Ancef) 2 gm Q8H IVPB 03/08/25 14:30 03/09/25 06:31 DC 03/09/25 06:06 2 GM Citalopram Hydrobromide (CeleXA 20MG TAB) 10 mg DAILY PO 02/25/25 09:00 03/27/25 08:59 03/10/25 08:16 10 MG Dexamethasone Sodium Phosphate (dexaMETHasone 4MG/ML 1ML VIAL) 20 mg Q24H IV 03/12/25 15:30 03/12/25 15:18 DC Dexamethasone Sodium Phosphate 20 mg/Sodium Chloride 50 ml @ 100 mls/hr Q24H IV 03/12/25 15:30 04/11/25 15:29 03/12/25 16:25 100 MLS/HR Dexmedetomidine HCl 400 mcg/ Sodium Chloride 100 ml @ 0 mls/hr AD PRN IV TITRATE 03/13/25 08:00 03/13/25 07:42 DC Dexmedetomidine/ Sodium Chloride (PRECEdex 400MCG/ 100ML-NS) 400 mcg PROTOCOL IV 03/08/25 09:30 03/09/25 09:29 DC Dexmedetomidine/ Sodium Chloride (PRECEdex 400MCG/ 100ML-NS) 400 mcg PROTOCOL IV 03/13/25 08:00 04/12/25 07:59 03/13/25 08:44 400 MCG Dextrose 1,000 ml @ 0 mls/hr Q0M PRN IV OTHER [SEE ORDER COMMENTS] 03/12/25 06:00 04/09/25 23:29 Dextrose 1,000 ml @ 50 mls/hr Q20H IV 03/10/25 23:30 03/12/25 05:51 DC 03/11/25 19:15 50 MLS/HR Dextrose (D50w) 50 ml AD PRN IV HYPOGLYCEMIA PROTOCOL 03/01/25 12:30 03/09/25 15:51 DC Dextrose (D50w) 50 ml AD PRN IV HYPOGLYCEMIA PROTOCOL 03/08/25 09:30 04/07/25 09:29 03/10/25 00:44 50 ML Docusate Sodium (COLace 100MG CAP) 100 mg BID PO 03/03/25 21:00 03/03/25 16:22 DC Docusate Sodium (COLace 100MG CAP) 100 mg BID PO 03/08/25 21:00 04/07/25 20:59 03/12/25 20:07 100 MG Epinephrine HCl 10 mg/Sodium Chloride 250 ml @ 0 mls/hr AD PRN IV TITRATE 03/08/25 07:00 04/07/25 06:59 03/12/25 20:50 0 MLS/HR Epinephrine HCl 10 mg/Sodium Chloride 250 ml @ 0 mls/hr AD PRN IV POST-OP CARDIOVASCULAR ORDERS 03/08/25 09:30 03/08/25 09:30 DC Famotidine (Pepcid 20mg Vial) 20 mg BID IV 03/08/25 21:00 03/10/25 20:59 DC 03/10/25 08:16 20 MG Famotidine (Pepcid 20mg Tab) 20 mg BID PO 02/24/25 09:00 03/09/25 10:34 DC 03/07/25 20:29 20 MG Fentanyl Citrate 100 ml @ 0 mls/hr PROTOCOL IV 03/13/25 02:30 03/20/25 02:29 03/13/25 02:29 0 MLS/HR Fentanyl Citrate 1000 mcg/Sodium Chloride 120 ml @ 0 mls/hr AD PRN IV TITRATE 03/13/25 02:30 03/13/25 02:16 DC Folic Acid (FOLic ACID 1 MG TABLET) 1 mg DAILY PO 03/12/25 15:30 04/11/25 15:29 03/13/25 08:42 1 MG Furosemide (LASix 20MG TAB) 20 mg Q12H PO 03/10/25 09:00 03/10/25 16:28 DC Furosemide (LASix 20MG VIAL) 20 mg Q12H IV 03/09/25 09:00 03/10/25 08:59 DC 03/10/25 01:15 20 MG Furosemide 100 mg/ Sodium Chloride 100 ml @ 0 mls/hr PROTOCOL IV 03/10/25 08:00 03/12/25 16:41 DC 03/12/25 05:11 10 MLS/HR Glucagon (Glucagon 1mg Kit) 1 mg AD PRN IM HYPOGLYCEMIA PROTOCOL 03/01/25 12:30 03/09/25 15:51 DC Glucagon (Glucagon 1mg Kit) 1 mg AD PRN IM HYPOGLYCEMIA PROTOCOL 03/08/25 09:30 04/07/25 09:29 Heparin Sodium/ Dextrose 250 ml @ 0 mls/hr PROTOCOL PRN IV PROTOCOL 02/24/25 06:00 02/25/25 05:59 DC 02/25/25 01:09 7.36 MLS/HR Heparin Sodium/ Dextrose 250 ml @ 0 mls/hr Q6H IV 03/13/25 10:30 04/12/25 10:29 03/13/25 10:42 7.14 MLS/HR Insulin Human Regular (humuLIN R 100 UNIT/ML 3ML) INSULIN SLIDING SCAL... ACHS SQ 02/24/25 11:30 03/08/25 09:15 DC 03/06/25 20:24 6 UNIT Insulin Human Regular 100 unit/ Sodium Chloride 100 ml @ 0 mls/hr AD IV 03/08/25 09:30 03/10/25 09:29 DC 03/09/25 16:20 2 MLS/HR Iron Sucrose 300 mg/Sodium Chloride 250 ml @ 83 mls/hr HS IV 03/12/25 21:00 03/15/25 00:01 03/12/25 20:07 83 MLS/HR Iron Sucrose 300 mg/Sodium Chloride 250 ml @ 83 mls/hr Q24H IV 03/12/25 15:30 03/14/25 18:31 Cancel Isosorbide Mononitrate (Imdur 30mg Sr) 30 mg DAILY PO 02/24/25 09:00 03/06/25 11:46 DC 03/06/25 08:13 30 MG Isosorbide Mononitrate (Imdur 30mg Sr) 60 mg DAILY PO 03/07/25 09:00 03/08/25 09:15 DC 03/07/25 08:47 60 MG Ketorolac Tromethamine (ketOROlac troMETHamine) 15 mg Q6H PRN PO MODERATE PAIN (4-6) 03/03/25 18:00 03/03/25 16:22 DC Lactulose (Constulose 20gm/ 30ml Udcup) 20 gm BID PO 03/12/25 21:00 04/11/25 20:59 03/12/25 20:07 20 GM Lactulose (Constulose 20gm/ 30ml Udcup) 20 gm BID PRN PO CONSTIPATION 03/08/25 09:30 04/07/25 09:29 03/12/25 16:26 20 GM Lactulose (Constulose 20gm/ 30ml Udcup) 20 gm BID PRN PO CONSTIPATION 03/12/25 16:30 03/12/25 16:20 DC Magnesium Hydroxide (Milk Of Magnesium 30ml) 30 ml DAILY PRN PO CONSTIPATION 03/08/25 09:30 04/07/25 09:29 Magnesium Sulfate 50 ml @ 12.5 mls/hr AD PRN IV MAG LEVEL LESS THAN 2.0 03/08/25 09:30 04/07/25 09:29 03/12/25 22:19 12.5 MLS/HR Magnesium Sulfate 50 ml @ 0 mls/hr PROTOCOL PRN IV low mag level 02/24/25 09:30 03/09/25 15:49 DC Metoprolol Succinate (TopROL XL) 12.5 mg DAILY PO 02/24/25 09:00 03/06/25 18:49 DC 03/03/25 08:36 12.5 MG Midodrine (PROAMatine 5 MG TABLET) 10 mg TID PO 03/03/25 14:00 03/08/25 09:15 DC 03/07/25 14:38 10 MG Morphine Sulfate (morPHINE 2MG SYG) 0.5 mg Q2H PRN IV MODERATE PAIN (4-6) 03/08/25 09:30 03/09/25 09:29 DC Morphine Sulfate (morPHINE 2MG SYG) 1 mg Q2H PRN IV SEVERE PAIN (7-10) 03/08/25 09:30 03/09/25 09:29 DC Nitroglycerin (Nitrostat) 0.4 mg Q5M PRN SL CHEST PAIN 02/24/25 06:00 03/06/25 08:51 DC 03/06/25 08:50 0.4 MG Nitroglycerin/ Dextrose 0 ml @ 0 mls/hr AD IV 03/08/25 09:30 03/11/25 09:29 DC Norepinephrine Bitartrate 250 ml @ 0 mls/hr AD PRN IV TITRATE 03/08/25 07:00 03/08/25 23:13 DC Norepinephrine Bitartrate (Norepineph 16 Mg/250ml NS Premix) PER PROTOCOL PROTOCOL IV 03/08/25 23:30 04/07/25 23:29 03/11/25 19:17 16 MG Norepinephrine Bitartrate 8 mg/ Dextrose 250 ml @ 0 mls/hr AD PRN IV POST-OP CARDIOVASCULAR ORDERS 03/08/25 09:30 03/08/25 09:30 DC Ondansetron HCl (zoFRAN 4MG INJ) 4 mg Q6H PRN IV NAUSEA/VOMITING 03/08/25 09:30 04/07/25 09:29 Phytonadione 10 mg/Sodium Chloride 51 ml @ 100 mls/hr Q24H IVPB 03/10/25 01:00 03/12/25 01:31 DC 03/12/25 00:27 100 MLS/HR Piperacillin Sod/ Tazobactam Sod (Zosyn 3.375gm+NS 50ml) 3.375 gm Q8H IVPB 03/10/25 10:30 03/20/25 10:29 03/13/25 09:44 3.375 GM Polyethylene Glycol (MIRalax 3350 17 GM POWD.PACK) 17 gm DAILY PO 03/13/25 09:00 04/12/25 08:59 03/13/25 08:42 17 GM Potassium Phosphate 250 ml @ 42 mls/hr AD PRN IV LOW PHOS LEVEL 03/08/25 09:30 04/07/25 09:29 03/09/25 08:23 42 MLS/HR Potassium Chloride 100 ml @ 50 mls/hr AD PRN IV POTASSIUM PROTOCOL 02/24/25 09:30 03/08/25 09:15 DC Potassium Chloride 100 ml @ 100 mls/hr AD PRN IV POTASSIUM PROTOCOL 02/26/25 11:30 02/27/25 09:49 DC Potassium Chloride 100 ml @ 100 mls/hr AD PRN IV HYPOKALEMIA 03/08/25 09:30 04/07/25 09:29 03/09/25 05:37 100 MLS/HR Potassium Chloride (K-Dur/Klor-Con 20meq) 20 meq AD PRN PO POTASSIUM PROTOCOL 02/26/25 11:30 03/08/25 09:15 DC 03/07/25 05:23 20 MEQ Potassium Chloride (KCl 10% Elixir 20meq/15ml) 20 meq AD PRN PO POTASSIUM PROTOCOL 02/26/25 11:30 03/08/25 09:15 DC Prasugrel (Effient 10mg) 10 mg DAILY PO 02/25/25 09:00 03/01/25 12:54 DC 02/28/25 09:18 10 MG Propofol 100 ml @ 0 mls/hr AD PRN IV SEDATION 03/08/25 09:30 03/12/25 09:29 DC Prothrombin Complex Concent (Human) (Kcentra 500 Unit Kit) 500 unit ONCE IV 03/10/25 12:00 03/10/25 12:24 DC Sodium Bicarbonate 25 meq/Dextrose 1,000 ml @ 0 mls/hr Q0M PRN IVP OTHER [SEE ORDER COMMENTS] 03/10/25 22:30 04/09/25 22:29 03/10/25 23:31 11.6 MLS/HR Sodium Bicarbonate (Sodium Bicarb 50meq 50ml Vial) 50 meq AD PRN IV OTHER[SEE DOSING INSTRUCTIONS] 03/08/25 09:30 03/11/25 09:29 DC 03/10/25 04:56 100 MEQ Sodium Chloride 500 ml @ 0 mls/hr AD IV 03/08/25 09:30 04/07/25 09:29 03/11/25 02:21 3 MLS/HR Sodium Chloride 1,000 ml @ 0 mls/hr ONCE IV 03/12/25 18:00 03/13/25 17:59 Sodium Chloride 1,000 ml @ 10 mls/hr ONCE IV 03/08/25 09:30 03/09/25 09:29 DC Sodium Chloride 1,000 ml @ 150 mls/hr [id number] IV 03/01/25 12:30 03/01/25 16:29 DC 03/01/25 19:04 150 MLS/HR Sodium Chloride (NS 50ml) 50 ml AD IV 03/10/25 10:30 03/10/25 16:27 DC Sodium Chloride (NS Flush 10ml) 10 ml Q8H PRN IVP IV LINE FLUSH 03/08/25 09:30 04/07/25 09:29 Tramadol HCl (UltRAM) 50 mg Q6H PRN PO MODERATE PAIN (4-6) 03/08/25 09:30 03/13/25 09:29 DC Tramadol HCl (UltRAM) 100 mg Q6H PRN PO SEVERE PAIN (7-10) 03/08/25 09:30 03/13/25 09:29 DC Vasopressin 40 units/Sodium Chloride 40 ml @ 0 mls/hr PROTOCOL IV 03/08/25 17:00 04/07/25 16:59 03/10/25 19:26 2.4 MLS/HR Vitamin B Complex (Vitamin B-12) 1,000 mcg DAILY PO 03/12/25 15:30 04/11/25 15:29 03/13/25 08:42 1,000 MCG DIAGNOSTICS / RADIOLOGY: [ ] Assessment: Severe 2 vessel CAD -S/P 4v CABG 03-08-[address] Barajas 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 TID 1.19. LVEF 39%. CAD status post stenting of the proximal LAD proximal circumflex and mid circumflex artery as above with documented progression of disease December 2024 managed medically because of concern the patient would not be compliant with dual antiplatelet therapy Remote anterior wall myocardial infarction July 2024 complicated by cardiogenic shock requiring Impella support for PCI with subsequent ischemic leg requiring udnsx-ukc-rcho amputation hypercoagulable state on Prasugrel POA functional decline: s/p Rt BKA POA Anemia Thrombocytopenia moderated protein calorie malnutrition with muscle atrophy ; BMI 19 POA History of Myocardial infarction 2023 Uncontrolled hypertension POA Hyperlipidemia Uncontrolled diabetes mellitus type 2 with hyperglycemia POA PLAN: Admit: Continue telemetry condition: guarded Status: full code LINES: cvc impella chest tube et tube og tube marlin manjarrez DRIPS: levophed epi Severe 2 vessel CAD -S/P 4v CABG 03-08-[address] Barajas Coronary angiogram on 03/01/2025 revealed severe two-vessel CAD and patient underwent 4v CABG on 03/08/2025 following which patient became hypotensive in the OR, and was found to have a nonfunctional GOLDSTEIN , Impella was inserted for Cardiogenic shock Left chest tube drain about o cc in last 24 hours Right chest tube drain about 110 cc in the last 24 hours Defer Beta blockers at this time and continue Continue Aspirin 81mg, as per Cardiology consult recommendations Hold statins, in view of elevated LFTs Cardiogenic shock: S/p 4vCABG complicated by a nonfucntional GOLDSTEIN Currently Impella in place with flow rate 4.3-4.5 Continue IV lasix at 5mg/hr with strict I/Os and daily weights. Goal net negative 1-2L/day, as per cardiology Anemia, Thrombocytopenia No HIT evidence as per hematology consult Anemia possibly secondary to hemolysis/myeloproliferative Continue folic acid 1 mg p.o. daily and vitamin B12 1000 mcg p.o. daily. Continue dexamethasone 20 mg IV daily as per recommendations Continue midodrine 10 mg t.i.d. PRN for systolic blood pressure less than 100. Replace electrolytes as needed as per protocol to keep potassium above 4.0 magnesium 2.0. ac/hs monitoring with SSRI coverage Follow up on left arterial US results Continue Zosyn for prophylactic coverage Supportive measures: DVT ppx, GI ppx ATTESTATION BY PHYSICIAN I have seen and examined the patient. I reviewed the documentation, medical decision making, and treatment plan as noted by the resident above. I agree with the findings and plan of care. Allen Fuentes MD, PRIYANKA MD Mar 13, 2025 13:26
[2025-03-13] MEDS ORDERED: ALBUMIN (HUMAN) 25% 50 ML IV.SOLN. IV SCH (13:30)
[2025-03-13] MEDS: ALBUMIN HUMAN 25% 100 ML IV ONE (13:41)
[2025-03-13] MEDS: EPOETIN ALFA-EPBX (NON-ESRD) 10,000 UNIT/ML VIAL SQ ONE (14:41)
--- NOTE | 2025-03-13 15:22 | HMCIMG ---
EXAM: CR Chest, 1 View. CLINICAL HISTORY: s/p CABG COMPARISON: 03/12. FINDINGS: An endotracheal tube is present with the tip 3.8 cm from the karl. Enteric tube is poresent coursing below the diapraghm with the distal tip all beyond the field of view. Right transjugular central venous catheter with the tip in the main pulmonary artery. Two left intercostal drainage tubes are in place. Drainage tube with tip in the mediastinum on the left. LUNGS: Bibasilar consolidation, mildly reduced from the prior study. Pulmonary vascular congestion. PLEURAL SPACES: No pneumothorax. Minimal bilateral pleural effusion. MEDIASTINUM: The cardiothoracic ratio cannot be commented upon due to rotation. BONES: No acute osseous abnormality. Sternotomy changes. IMPRESSION: 1. Bibasilar consolidation, improved from prior, with pulmonary vascular congestion. 2. Minimal bilateral pleural effusions. 3. Endotracheal tube tip 3.8 cm from karl. 4. Right transjugular central line terminating in the main pulmonary artery. 5. Two left intercostal drainage tubes and a left mediastinal drainage tube are in place. /[place]
--- NOTE | 2025-03-13 17:09 | PN ---
Cardiology Progress Note Date of Service: 03/13/2025 Attending Bevel Mill Operator: Dr. Niall Ennis Primary Bevel Mill Operator: Dr. Jefry Carrasco Reason for Consult: Chest pain Problem List: -Chest pain -2V+branch CAD s/p 4V CABG (GOLDSTEIN-LAD, SVG-DIAG, SVG-LPLB, SVG-RCA) done on 03/08/2025 with redo sternotomy, clipping for GOLDSTEIN, and SVG-LAD done on 03/08/2025 -Intraoperative VT s/p ACLS with CPR, defibrillation, and IV amiodarone and IV lidocaine resulting in ROSC -Cardiogenic shock s/p Impella insertion on 03/08/2025 -Respiratory failure, intubated 03/08/2025 -Postoperative acute blood loss anemia s/p PRBC transfusion -Thrombocytopenia -Acute renal failure, s/p initiation of hemodialysis 03/12/2025 -Shock liver -Vasopressor induced acute limb ischemia (VIALI) -HFmrEF (LVEF: 40-45% by echo done on 02/25/2025) -h/o of ACS-STEMI s/p PCI with VIANEY placement (BSS 3.0x20 mm) in the proximal LAD, VIANEY placement (BSS 3.5x16 mm) in the proximal LCx, VIANEY placement (BSS 3.0x12 mm) in the mid LCx, and VIANEY placement (BSS 2.75x24 mm) in the distal LCx done on 07/17/2024 -h/o Intraprocedural VT in July 2024 -h/o cardiogenic shock requiring Impella placement in July 2024 -Right lower extremity ischemia secondary to Impella placement resulting in RLE limb ischemia s/p right BKA -Ischemic cardiomyopathy -HLP -DM2 -Hypochromic anemia -Medication noncompliance Subjective: This is a 59y/o female who was seen and evaluated at in the ICU today. She remains sedated, intubated, and on mechanical ventilation, so she is unable to verbalize any active complaints. She remains on IV vasopressor support with IV epinephrine and norepinephrine and hemodynamic support with an Impella at P7. She is currently undergoing hemodialysis (day 2 of 3). Vitals/Labs Vital Signs Date Time Temp Pulse Resp B/P (MAP) Pulse Ox O2 Delivery O2 Flow Rate FiO2 03/13/25 16:15 68 19 124/84 (97) 91 03/13/25 16:09 60 03/13/25 16:00 Ventilator+ 03/13/25 16:00 98.2 03/11/25 19:30 0 General: Sedated, intubated, and on mechanical ventilation. Ill appearing. HEENT: NC/AT. Oral mucosa is moist. Poor dentition. Oral ETT and OGT noted. Neck: No masses or carotid bruits. Right IJ cordis noted. Lungs: SCM. Bilateral air entry. Coarse breath sounds noted throughout. On mechanical ventilation. Cardio: Regular rate. Normal S1 and S2. No obvious murmurs, gallops, or rubs noted. Midline incision to the chest. Chest tubes noted. Left subclavian Impella noted. Abdomen: Soft. NT. ND. Hypoactive bowel sounds x 4 quadrants. : Whitfield catheter noted. Extremities: Left femoral trialysis catheter noted. Right BKA noted. Ischemic changes noted to the bilateral hands, left foot, and right BKA stump. Unable to palpate distal pulses. Neuro: Unable to obtain. Laboratory Tests 03/12/25 17:52 03/12/25 18:33 03/12/25 20:46 03/13/25 03:45 03/13/25 09:47 Problem List: -Chest pain -2V+branch CAD s/p 4V CABG (GOLDSTEIN-LAD, SVG-DIAG, SVG-LPLB, SVG-RCA) done on 03/08/2025 with redo sternotomy, clipping for GOLDSTEIN, and SVG-LAD done on 03/08/2025 -Intraoperative VT s/p ACLS with CPR, defibrillation, and IV amiodarone and IV lidocaine resulting in ROSC -Cardiogenic shock s/p Impella insertion on 03/08/2025 -Respiratory failure, intubated 03/08/2025 -Postoperative acute blood loss anemia s/p PRBC transfusion -Thrombocytopenia -Acute renal failure, s/p initiation of hemodialysis 03/12/2025 -Shock liver -Vasopressor induced acute limb ischemia (VIALI) -HFmrEF (LVEF: 40-45% by echo done on 02/25/2025) -h/o of ACS-STEMI s/p PCI with VIANEY placement (BSS 3.0x20 mm) in the proximal LAD, VIANEY placement (BSS 3.5x16 mm) in the proximal LCx, VIANEY placement (BSS 3.0x12 mm) in the mid LCx, and VIANEY placement (BSS 2.75x24 mm) in the distal LCx done on 07/17/2024 -h/o Intraprocedural VT in July 2024 -h/o cardiogenic shock requiring Impella placement in July 2024 -Right lower extremity ischemia secondary to Impella placement resulting in RLE limb ischemia s/p right BKA -Ischemic cardiomyopathy -HLP -DM2 -Hypochromic anemia -Medication noncompliance Plan: 1. 2V+branch CAD s/p 4V CABG (GOLDSTEIN-LAD, SVG-DIAG, SVG-LPLB, SVG-RCA) done on 03/08/2025 with redo sternotomy, clipping for GOLDSTEIN, and SVG-LAD done on 03/08/2025 -Continue aspirin 81 mg daily. -She is not a candidate for BB therapy due to the need for IV vasopressor support or a candidate for statin therapy due to her shock liver. -Further management per CT surgery 2. Intraoperative VT s/p ACLS with CPR, defibrillation, and IV amiodarone and IV lidocaine resulting in ROSC -12H telemetry: Sinus rhythm, no arrhythmias noted -Not a candidate for BB therapy due to the need for IV vasopressor support -Recommend weaning off of IV vasopressor support as tolerated -Please keep the patient on continuous telemetry monitoring and maintain electrolytes within normal parameters. 3. Cardiogenic shock s/p Impella insertion on 03/08/2025 -Currently on IV vasopressor support with epinephrine and norepinephrine -We will obtain a limited echo to assess Impella placement. -If the patients' thrombocytopenia worsens, consider decreasing the patient's flow rate. -Further management per CT surgery This case was discussed with my Supervising Physician, Dr. Niall Ennis, and the above mentioned plan was formulated and agreed upon. -Progress Note written by Mandeep Pacheco, MSN, STENCIL MAKER, AGACNP-MANDEEP NEVES NP Mar 13, 2025 17:09
--- NOTE | 2025-03-13 19:45 | PN ---
SUBJECTIVE: The patient is postop day #5 from a coronary artery bypass grafting and placement of an Impella left ventricular assist device. The patient appeared to have been improving; however, her lactate and base deficit have gone up and pressors have not been able to be weaned more. Last evening, the patient had a Mahurkar catheter placed in the left femoral vein. She also had hemodialysis removing 1 L of fluid. This morning, however, the patient's left foot is now purple and mottled and Doppler signals are only obtained in the popliteal artery. OBJECTIVE: VITAL SIGNS: Reveal a temperature of 99.3, blood pressure is 116/78, pulse is 83, respirations 22, oxygen saturation 96%. She is on a Precedex drip. She is also on a Levophed drip at 5 mcg per minute and an epinephrine drip at 0.08 mcg per kg/minute. HEENT: Reveals to be normocephalic, atraumatic. She has an oral endotracheal tube. She has orogastric tube. She is connected to mechanical ventilator. Her eyes are swollen shut. She is very edematous in the face. CHEST: She has an L5.5 Impella left ventricular assist device exiting her left medial supraclavicular region. Her sternal wound is bandaged. She has chest tubes in place. She has a radial art line. ABDOMEN: She has at least moderate obesity. GENITOURINARY: Whitfield catheter in his bladder. EXTREMITIES: She has a new left femoral venous Mahurkar catheter. She has a right petbg-pcr-pvig amputation with a large blister on the end of the stump and mottling to her knee. On the left, she has Doppler signals in her popliteal and left femoral region but not in her dorsalis pedis or posterior tibialis artery and her left foot is purple mottled. LABORATORY DATA: White cell count is 8.1, hemoglobin 7.3, platelet count is 41,000. BUN 52, creatinine is 3.0. Her liver functions have shown improvement. ASSESSMENT AND PLAN: * Status post coronary artery bypass grafting with Impella support. Continue aspirin. Because of the Impella, I will place the patient on a heparin drip. Hematology does not feel the patient has HIT. Continue current Impella support. Wean vasoactive drips as tolerated. * Postoperative acute pulmonary insufficiency. Continue to support on mechanical ventilator. * Hypercholesterolemia. Lipitor is on hold due to elevated liver functions, although these are improving. * Acute kidney injury secondary to cardiogenic shock. I believe the patient is to undergo hemodialysis again today. * Deep venous thrombosis prophylaxis. The patient will be on a heparin drip and have a left-sided SCD. * Peripheral vascular disease. The patient will most likely require revision of her right sayyz-oba-gjch amputation and she may be looking at an amputation of her left lower extremity. Time spent 30 minutes. The patient is critically ill in the ICU. TID: [id number] RECEIPT: [id number]
[2025-03-13 21:35] LABS: CREATININE 2.6 mg/dL (0.5-1.0); GLOMERULAR FILTR. RATE CALC 20.0 mL/min (>90); GLUCOSE,RANDOM 163.0 mg/dL (70-105); SODIUM SERUM 137.0 mmol/L (136-145); UREA NITROGEN, BLOOD 46.0 mg/dL (7-18)
[2025-03-13 21:56] LABS: IMMATURE GRANULOCYTE ABSOLUTE 0.15 K/uL (0-1); NUCLEATED RED BLOOD CELLS 6.6 % (0.0-0.19); PLATELET COUNT (AUTO) 13 K/uL (130-400); RED BLOOD CELL COUNT(AUTO) 2.36 MIL/uL (4.00-5.50); RED CELL DISTRIBUTION WIDTH 17.6 % (11.0-15.5); WHITE BLOOD COUNT (AUTO) 11.0 K/uL (4.8-10.8)
--- NOTE | 2025-03-13 22:23 | PN ---
NEPHROLOGY NOTE SUBJECTIVE: The patient has been evaluated and seen for dialysis and seen several times. The patient is very critically ill, in the ICU. No other associated findings. No other aggravating or relieving factors. The patient has weakness, anemia, and multiple other comorbidities. The patient has a recent CABG. The patient has hyperkalemia and impaired LFTs. Albumin has been given. PHYSICAL EXAMINATION: GENERAL: Pale, no other distress. VITAL SIGNS: Blood pressure has been soft. Pulse of 73, respiratory rate 18. NECK: Supple. No masses or bruits. Thyroid is palpable. Neck has no bruits. LUNGS: Shows equal thoracic percussion note being resonant in all areas. LABORATORY DATA: Labs have been reviewed and old records reviewed. PROBLEMS: Renal failure, impaired LFTs, hyperkalemia, coronary artery disease, CABG. PLAN: Dialysis in the ICU. Continue monitoring. Follow up on renal function and follow up on electrolytes. Intake, output, weight, and overall status will be monitored. The patient was evaluated and seen for dialysis and seen several times. We will be monitoring closely. The patient's condition is critical and guarded. Thank you for this patient. TID: [id number] RECEIPT: [id number]
[2025-03-14] VITALS (104 sets, daily range): BP systolic 98–153; BP diastolic 66–149; PULSE 68–89; RESP 18–40; TEMP 99.4–99.8; O2SAT 88–96
[2025-03-14 00:22] LABS: ABG BASE EXCESS -6.4 mmol/L (-2.0-3.0); ABG HCO3 18.7 mmol/L (21.0-28.0); ABG OXYGEN SATURATION 97.1 % (94.0-98.0); ABG PCO2 35 mmHg (32-45); ABG PH 7.341 (7.350-7.450); CARBON MONOXIDE 1.7 % (0.5-1.5); DEVICE COMMENT ALINE RN JULIA; PO2, ARTERIAL BG 109.6 mmHg (83.0-108.0); TEMPERATURE, CELSIUS BG 37.0 CELSIUS (35.5-37.0); VENT MODE, BG SIMV PS10 (ROOM AIR)
--- NOTE | 2025-03-14 00:57 | HMCIMG ---
EXAMINATION: DUPLEX ULTRASOUND EXAMINATION OF THE LEFT LOWER EXTREMITY ARTERIES. CLINICAL HISTORY: Severe PAD. COMPARISON: None provided. FINDINGS: Peak systolic velocities within the left lower arteries are as follows: Superficial femoral artery: 43 cm/s at proximal, 59 cm/s at mid, and 46 cm/s at distal segments. Popliteal artery: 37 cm/s at proximal and 38 cm/s at distal segments. Posterior tibial artery: 14 cm/s. Anterior tibial artery: Flow trickle. Dorsalis pedis artery: No flow. The left lower limb arteries demonstrate triphasic to biphasic waveforms in all arteries except the anterior tibial artery which demonstrates monophasic waveform with collateral formation. There is intimal wall thickening in the left lower limb arteries. IMPRESSION: Mild intimal wall thickening in the left lower limb arteries. The left lower limb arteries demonstrate triphasic to biphasic waveforms in all arteries except the anterior tibial artery which demonstrates monophasic waveform. No flow in the dorsalis pedis artery. Recommend CT or MR angiogram. /[place]
[2025-03-14 06:25] LABS: IMMATURE GRANULOCYTE ABSOLUTE 0.27 K/uL (0-1); NUCLEATED RED BLOOD CELLS 7.9 % (0.0-0.19); PLATELET COUNT (AUTO) 14 K/uL (130-400); RED BLOOD CELL COUNT(AUTO) 2.49 MIL/uL (4.00-5.50); RED CELL DISTRIBUTION WIDTH 17.8 % (11.0-15.5); WHITE BLOOD COUNT (AUTO) 12.9 K/uL (4.8-10.8)
[2025-03-14 06:46] LABS: CREATININE 3.0 mg/dL (0.5-1.0); GLOMERULAR FILTR. RATE CALC 17.0 mL/min (>90); GLUCOSE,RANDOM 189.0 mg/dL (70-105); PHOSPHORUS 5.7 mg/dL (2.5-4.9); SODIUM SERUM 141.0 mmol/L (136-145); TOTAL PROTEIN, SERUM 5.5 g/dL (6.0-8.3); UREA NITROGEN, BLOOD 54.0 mg/dL (7-18)
--- NOTE | 2025-03-14 07:00 | HMCIMG ---
EXAM: CR Chest, 2 View. CLINICAL HISTORY: 1ST X DIALYSIS TX COMPARISON: None provided. FINDINGS: An endotracheal tube is present with the tip 3.8 cm from the karl. Enteric tube is present coursing below the diapraghm with the distal tip all beyond the field of view. Right transjugular central venous catheter with the tip in the main pulmonary artery. Two left intercostal drainage tubes are in place. Drainage tube with tip in the mediastinum on the left. LUNGS: Diffuse airspace and interstitial opacities in bilateral lung, right greater than the left. Bilateral pulmonary vascular congestion. PLEURAL SPACES: No evidence of pneumothorax. Bilateral trace pleural effusion. MEDIASTINUM: Mild cardiomegaly. BONES: No aggressive appearing osseous lesion seen. Sternotomy changes. IMPRESSION: 1. Bilateral airspace and interstitial opacities, right greater than left, with pulmonary vascular congestion 2. Mild cardiomegaly 3. Endotracheal tube tip 3.8 cm from karl 4. Right transjugular central line terminating in main pulmonary artery 5. Two left intercostal drains and mediastinal drain in place /[place]
[2025-03-14 07:06] LABS: ASPARTATE AMINOTRANSFERASE 2241.0 U/L (10-37)
[2025-03-14 07:24] LABS: LYMPHOCYTES % (MANUAL) 6 % (22-44); MONOCYTES % (MANUAL) 4 % (2-9); REACTIVE LYMPHOCYTES 1 % (0-0); SEGMENTED NEUTROPHILS % 89 % (40-70)
[2025-03-14 07:26] LABS: MAN.DIFF COMMENT-IMPRESSION MANUAL DIFFERENTIAL; PLATELET MORPHOLOGY COMMENT MARKED DECREASE; WBC MORPHOLOGY HYPERSEGMENT NEUT 1+
[2025-03-14] MEDS: PHARMACY COMMUNICATION MISC SCH (08:00)
--- NOTE | 2025-03-14 10:06 | PN ---
SUBJECTIVE: The patient is status post coronary artery bypass grafting requiring an L5.5 pelvis support. Her postop course has been complicated by renal insufficiency requiring hemodialysis. Continued pulmonary insufficiency requiring mechanical ventilatory support and evidence of bilateral lower extremity ischemia. TRINITY is back to being ruled out. OBJECTIVE: GENERAL: Her face is less swollen. She opens her eyes when she has turned but has not moved her extremities since surgery. VITAL SIGNS: Pulse of 85, respirations 34, blood pressure 114/75. HEENT: Normocephalic, atraumatic. She has an oral endotracheal tube connected to mechanical ventilator. She has an orogastric tube through which she is receiving tube feeds. CHEST: Her sternum is bandaged. Her chest tubes are in place with 350 mL of output over the last 24 hours. She has a right cervical Framingham-Shantelle catheter, which is not indicating a cardiac output. She has a radial art line. ABDOMEN: Mild obesity. GENITOURINARY: She has Whitfield catheter in her bladder. EXTREMITIES: She has a right vguzp-ofg-evtc amputation. The distal end of the stump has a large purplish blister. There is mild mottling up to the knee. Her left lower extremity has mottling of her left foot, which is new as of approximately a day and a half ago. She had an arterial duplex that was performed, which revealed flow in her posterior tibialis artery and peroneal, but not the anterior tibialis artery. LABORATORY DATA: Her white cell count is 12,900, hemoglobin 7.6, platelet count is 14,000, BUN 54, creatinine is 3.0. ABGs reveal a pH of 7.34, PCO2 of 35, PO2 of 110, bicarb 18.7, base deficit is -6.4. Her transaminases are slightly improved but still elevated. She is on a Levophed drip ____. Epinephrine drip 0.08 mcg/kilo/min and her vasopressin has been off. She is also on a heparin drip. ASSESSMENT AND PLAN: * Status post coronary artery bypass grafting with Impella support. Continue aspirin. Continue Impella support and continue to wean off of the Levophed and epinephrine drips. Keep chest tubes in place and on suction. * Postoperative acute pulmonary insufficiency secondary to thoracic surgery and heart failure. Continue mechanical ventilatory support. Fluid is being removed with hemodialysis. * Acute kidney injury. Continue daily hemodialysis as directed by Nephrology. * Thrombocytopenia. Her TRINITY panel was still pending; however, due to her tissue ischemia, I am going to discontinue her heparin and place on argatroban drip until the heparin antibody results return. * Infectious. We will discontinue her Whitfield catheter as she does not make much urine. We will place a PureWick catheter. We will also discontinue her Framingham-Shantelle catheter and ____ after a PICC line is placed. * Nutrition. Continue trickle feeds and advance as tolerated as directed by dietary. Time spent: 30 minutes. The patient is critically ill in the ICU. TID: [id number] RECEIPT: [id number]
[2025-03-14 11:26] LABS: INR 1.69 (0.85-1.15)
[2025-03-14 11:42] LABS: ABG BASE EXCESS -9.3 mmol/L (-2.0-3.0); ABG HCO3 16.3 mmol/L (21.0-28.0); ABG OXYGEN SATURATION 98.1 % (94.0-98.0); ABG PCO2 34 mmHg (32-45); ABG PH 7.300 (7.350-7.450); CARBON MONOXIDE 1.6 % (0.5-1.5); PO2, ARTERIAL BG 130.1 mmHg (83.0-108.0); TEMPERATURE, CELSIUS BG 37.0 CELSIUS (35.5-37.0); VENT MODE, BG SIMV-VC PS10 (ROOM AIR)
[2025-03-14] MEDS: SODIUM BICARB 50MEQ 50ML VIAL IV ONE (12:03)
--- NOTE | 2025-03-14 12:37 | HMCSR ---
APPROVED REPORT EXAM: LIMITED Two-dimensional and M-mode echocardiogram. INDICATION ICD: impella placement 2D Dimensions IVSd0.6 (0.7-1.1cm)LVEF(%)31.5 (>50%)LVED Vol(simp.)90.0 mL LVDd3.9 (3.8-5.6cm)FS(%)15 %LVES Vol(simp.)62.0 mL PWd1.1 (0.7-1.1cm)LA (2D)2.5 (1.6-4.0cm)LVEF(%, simp.)32 % LVDs3.3 (2.5-4.0cm)Ao Root(2D)2.8 (2.0-3.7cm) Deformation Strain Apical 4-4.2 % Apical 2-6.0 % Apical 3-9.6 % Global Strain-6.6 % Left Ventricle Left ventricular cavity size is normal. Impella device present and well seated in the left ventricle. Impella measures 3.3 cm from the aorta. There is normal left ventricular wall thickness. LVEF is 30- 35%. Conclusion Left ventricular cavity size is normal. Impella device present and well seated in the left ventricle. Impella measures 3.3 cm from the aorta. LVEF is 30-35%.
--- NOTE | 2025-03-14 13:34 | PN ---
[facility] PROGRESS NOTE Date of Service: Mar 14, 2025 Time of Service: 13:04 SUBJECTIVE: admission date: 02/24/25 PCP: Agnieszka Shi DO chief complaint: Chest pain Primary manager animation: Dr Jefry Osorio This is a 59-year-old female presents in ED with chief complaints of chest pain. Onset started this morning at 2:00 a.m. patient was awaken with chest pain. Reports she has been having chest pain for a week. Location midsternal does not radiate,location midsternal stated the pain on arrival was 10/10 on pain scale. aggravated none: alleviating factors: none. Patient denies palpitation, dizziness, shortness for breath. 12 lead EKG on arrival showed heart rate [address] depression in the lateral Leads. As per ED physician changes in V5 and V6 were not seen in December 2024. Presence of LVH noted anterior STT wave changes were also. ER initiated heparin drip. Was given Full dose Aspirin and Morphine 2 mg IV x1. Troponin 1st set was negative. 02/25/25 patient was seen earlier patient reports she had chest pain overnight 3:00 a.m. patient was given nitroglycerin: continue on Heparin drip; Echo pending no chest pain at this time. she is fully alert oriented x3. 02/26/25 2D echocardiogram revealed a hypokinetic anteroseptal and anterolateral wall. LVEF 40-45%, the patient denies any cardiac symptoms or chest pain. Dr Osorio recommendations: lexiscan in am medical management for now ASA 81 mg daily , Prasugrel 10 mg daily ,Atorvastatin 40 mg daily, Imdur 30 mg daily changed Toprol XL to 25 mg daily patient is fully awake alert oriented x3. out of bed to chair with meals. Denied chest pain palpitation dyspnea. 02/27/25 patient is seen and examined patient underwent Lexiscan pending results. We will continue to monitor patient closely. She is asleep and waking per verbal stimuli primary nurse reports she was having GI problems post Lexiscan. 02/28/25 s/p Lexiscan Reversible large defect in the anterior, septal lucas. TID 1.19. LVEF 39%. Dr Osorio scheduled the patient for Left Heart cath tomorrow. The patient denies chest pain palpitation dyspnea. 03/01/25 patient was evaluated this continues without chest pain or palpitations patient had a Lexiscan stress test is PCI this after the. Patient NPO after breakfast. 03/02 patient was seen by nurse practitioner and physician during rounding in room 429. Patient is s/p left heart catheterization 03/01/[address] Jefry osorio and at this moment he is recommending cardiovascular surgeon for possible CABG evaluation. Once patient will be medically stable we will consult [facility] for evaluation. Continue one-to-one sitter for now. Continue to monit or patient in the meantime. A.m. labs 03/03 patient was seen by nurse practitioner physician during rounding. Patient was seen by cardiovascular surgeon and is pending CABG as per note at the end of this week. As per RN patient's blood pressure has been on lower side. We will order midodrine 10 mg p.r.n. t.i.d. for systolic less than 100. As per manager animation Dr. Jefry osorio who was rounding okay with the above-stated medicine. We will continue to monitor patient in the meantime. A.m. labs. 03/04 patient was seen by nurse practitioner and physician during rounding. Patient was evaluated by the cardiovascular surgeon and he is came to perform CABG once the patient will be off Effient for 5 to 7 days. Last dose that was administered to the patient of Effient 10 mg was given on 03/01/2025 at 12:16 p.m. we will continue to monitor patient in the meantime. A.m. labs 03/05 patient was seen by nurse practitioner and physician during rounding in room 429. Patient is pending CABG once 5 to 7 days of Effient on hold we will be completed. WBC 7.3. Electrolyte replaced per protocol. Patient denies any shortness of breath, chest pain, nausea, vomiting or any other discomfort at this moment. We will continue to monitor patient in the meantime. A.m. labs 03/06/2025 - patient is seen in room 429, patient had an episode of intermittent chest pain on exertion when she went to the washroom. Chest pain relieved with sublingual nitro, troponin and EKG were ordered which were normal. Ordered slab miller operator cortisol, we will follow up with the lab. Patient to be scheduled for CABG. Heart rate currently on the lower side around 50s - 60s. Patient is asymptomatic otherwise, we will follow the patient closely. 03/07 patient was seen by nurse practitioner physician during rounding in room 429. Patient is pending CABG by cardiovascular surgeon possibly tomorrow 03/08/2025. During evaluation patient denies any shortness of breath, chest pain, nausea, vomiting or any other discomfort. Patient will receive a dose of potassium. We will continue to monitor patient in the meantime. A.m. labs 03/08 patient was seen by nurse practitioner and physician during rounding in room 213. Patient is s/p CABG. No family members at the bedside at this moment. We will continue to monitor patient in the meantime. A.m. labs 03/09 was seen by nurse practitioner and physician during rounding in room 213. Patient is s/p CABG day 1. Due to hypotension and cardiogenic shock Impella was placed. Chest tube output within 24 hours 2 L. currently patient is on three pressor support requiring mechanical ventilation support. Peak 55, peep eight 50% O2. Urine output 850 cc. No family members at the bedside. We will continue CV surgery recommendation We will continue to monitor patient in the meantime. A.m. labs 03/10 patient was seen by nurse practitioner and physician during rounding in room 213. Patient continues to be intubated. Chest tube is draining about 10 to 20 mL/hour. Urine output about 5 to 10 mL/hour. Patient was placed on Lasix drip 10 milligrams/hour. Nephrology consulted for ARIADNE. Patient continues to be on epi, levo and vasopressor. Patient also experience a temperature of 103 last night blood culture were ordered patient was placed on Zosyn for now. We will continue to monitor patient in the meantime. A.m. 03/11 patient was seen by nurse practitioner physician during rounding in room 213. Patient continues to be intubated. Rate 18 Peak 60 tidal volume 580 peep eight 0 2% at 75%. Total output from the chest tube on the right within 24 hours was 550. There is a new left chest tube that was put in yesterday 03/10/2025 and total output as of now it is 820. Urine outpu 800t 150 bypass 24 hours. Patient continues to be on Lasix drip 10 milligrams/hour. Continue epi, levo, vasopressor and antibiotics Zosyn. AST 10562 ALT 2651 CK 3243. We will continue to monitor patient in the meantime. A.m. labs 03/12 patient was seen by EDGE DRUMMER and physician. Patient is still intubated. Urine output less than 5 mL per hour. Cost Recovery Technician was consulted concern for HIT. Platelets 23. Patient continues to be on Lasix 10 milligrams/hour. Continue epi, levo. Patient was weaned off of vasopressor. Left chest tube drain about 30 mL in the last 24 hours. Right pleural chest drain about 500 mL in the past 24 hours. Patient is pending JOSIE and chest x-ray today. No family members at the bedside. Continue Zosyn. WBC 7.9. Bilirubin 11 AST 5742 ALT 1752 CK 4964. Final urine culture negative. Blood culture no growth in last 24 hours. Con tinue to monitor patient. A.m. labs 03/13 Patient is seen at the bedside. She remains on mechanical ventilation. Impella in place with flow rate of 4.3-4.5 liter/minute. Sedated currently on Precedex 0.4 mcg/kg per hour. Mediastinal Chest tube drainage of 110 mL noted today. Urine output 115 mL. Her left lower extremity appears Pale and mottled, cold to touch and has an absent dorsalis pedis pulse. We will order an arterial ultrasound to assess the blood flow and she is started on heparin protocol by CTS consult. Fluid collection is noted around rt BKA site. Wound care consult recommended no further interventions. Hemoglobin 7.3 on IV Venofer as per Hematology consult, platelets 89804 post 2 unit platelet transfusion, PT 14.5, INR 1.42, BUN 52 , creatinine 3, potassium 5.3, direct bilirubin 8.8, AST improved from to 1347-8194, ALT improved from 907-850, TCK improved from 4964 to 4327, alkaline phosphatase 226. 1 L of fluid is removed during dialysis session yesterday. She is due for another dialysis session today. 03.14.25: Patient remains on mechanical ventilation: SIMV-TV 550 ml/RR 18 breaths/min, PEEP 8cm H2O,FiO2 50%. . Impella in place on left upper arm - set to P8 . Patient is sedated with Precedex . Mediastinal chest tube drained 370 ml in last 24 hours.Urine output 10 ml - patient is receiving hemodialysis - 3rd session consecutively today . Patient's Rt BKA stump, left foot , rt and left hands shows erythema with blebs and mottling on the skin suggestive of worsening ischemia and is cold to touch .US doppler LLE shows peripheral arterial [place] . [place] [address]- Heparin is discontinued and she is started on Argatroban by Dr Najera . Liver function parameters show minimal improvement . Epinephrine and Vasopressin is d/c'd and she continues on Levophed. Foleys catheter and [place] Shantelle catheter has been discontinued . Picc line is to be placed as per Dr Najera . Overall , patient is critical and her prognosis is guarded . I talked to her son and daughter at around 6 pm today and updated them of the patients clinical condition in detail. All questions were answered and they confirms understanding that the patient's condition is critical and prognosis is guarded. REVIEW OF SYSTEMS: unable to perform PHYSICAL EXAM: GENERAL: critically ill, intubated and mechanically ventilated HEENT: eyes remained partially open, Sclera dry , icteric, OG tube in place NECK: Supple, no JVD, trachea midline , impella with flow rate of 4-4.5 LUNGS: Sternum bandaged , diminished breath sounds bilaterally. No wheezes, chest tubes in place HEART: Regular rate and rhythm. Normal S1 and S2, without murmurs, chest tube in place ABD: Abdomen soft, nontender. Bowel sounds present EXT: rt BKA, Patient's Rt BKA stump, left foot , rt and left hands shows erythema with blisters and mottling on the skin and is cold to touch NEURO: Deferred. Vital Signs (last 8hr) Date Time Temp Pulse Resp B/P (MAP) Pulse Ox O2 Delivery O2 Flow Rate FiO2 03/14/25 12:00 99.7 Ventilator 60 03/14/25 12:00 50 03/14/25 11:36 81 50 03/14/25 09:45 85 30 109/70 (83) 93 03/14/25 09:34 85 50 03/14/25 09:30 85 31 105/68 (80) 03/14/25 09:15 84 31 110/71 (84) 03/14/25 09:00 84 31 107/69 (82) 03/14/25 08:45 85 32 107/69 (82) 03/14/25 08:30 85 23 98/66 (77) 03/14/25 08:15 83 31 108/70 (83) 03/14/25 08:00 88 Ventilator+ 50 03/14/25 08:00 99.5 84 31 108/70 (83) 03/14/25 08:00 99.5 Ventilator 60 03/14/25 08:00 50 03/14/25 07:45 84 32 108/69 (82) 03/14/25 07:30 80 32 106/69 (81) 03/14/25 07:15 83 34 108/70 (83) 03/14/25 07:00 83 34 110/71 (84) 03/14/25 06:45 84 32 111/74 (86) 74 03/14/25 06:38 82 50 03/14/25 06:30 85 34 114/75 (88) 75 03/14/25 06:15 81 35 114/76 (89) 75 03/14/25 06:00 83 35 113/75 (88) 76 03/14/25 05:45 84 34 111/74 (86) 75 03/14/25 05:30 85 30 115/75 (88) 79 03/14/25 05:15 84 35 109/71 (84) 79 LABS: Laboratory: Test 03/14/25 11:41 03/14/25 11:03 03/14/25 06:15 03/13/25 03:45 Range/Units Blood Gas Specimen Type Arterial Arterial Blood pH 7.300 L 7.350-7.450 Arterial Blood Partial Pressure CO2 34 32-45 mmHg Arterial Blood Partial Pressure O2 130.1 H 83.0-108.0 mmHg Arterial Blood HCO3 16.3 L 21.0-28.0 mmol/L Arterial Blood Oxygen Saturation 98.1 H 94.0-98.0 % Arterial Blood Base Excess -9.3 L -2.0-3.0 mmol/L Hemoglobin (Blood Gas) 8.0 L 12.0-16.0 g/dL Sodium (Blood Gas) 136 136-145 MMOL/L Bedside Potassium (Blood Gas) 5.2 H 3.4-4.5 MMOL/L Bedside Chloride (Blood Gas) 97 L 98-107 MMOL/L Bedside Glucose (Blood Gas) 220 H 65-95 MG/DL Bedside Ionized Calcium (Blood Gas) 1.07 L 1.15-1.33 MMOL/L Bedside Lactic Acid (Blood Gas) 10.42 *H 0.36-0.75 MMOL/L Blood Gas Temperature 37.0 35.5-37.0 CELSIUS Blood Gas Respiration Rate 18.0 min. Blood Gas Vent Mode SIMV-VC PS10 ROOM AIR FiO2 50.0 % Blood Gas Tidal Volume 550 ml Blood Gas PEEP 8 cm H2O Blood Gas Specimen Comment A-LINE DESIREE Prothrombin Time 17.0 H 9.6-11.6 SEC Prothromb Time International Ratio 1.69 H 0.85-1.15 Activated Partial Thromboplast Time 59.2 #H 26.3-35.5 SEC White Blood Count 12.9 H 4.8-10.8 K/uL Red Blood Count 2.49 L 4.00-5.50 MIL/uL Hemoglobin 7.6 L 12.0-16.0 g/dL Hematocrit 23.4 L 36-48 % Mean Corpuscular Volume 94.0 79-99 fL Mean Corpuscular Hemoglobin 30.5 27.0-33.0 pg Mean Corpuscular Hemoglobin Concent 32.5 32.0-36.0 g/dL Red Cell Distribution Width 17.8 H 11.0-15.5 % Platelet Count 14 L 130-400 K/uL Mean Platelet Volume 7.5-10.5 fL Immature Granulocyte % (Auto) 2.1 H 0-1 % Neutrophils (%) (Auto) 83.9 H 40.0-77.0 % Lymphocytes (%) (Auto) 7.2 L 21.0-51.0 % Monocytes (%) (Auto) 6.6 3.0-13.0 % Eosinophils (%) (Auto) 0.0 0.0-8.0 % Basophils (%) (Auto) 0.2 0.0-5.0 % Neutrophils # (Auto) 10.8 H 1.8-7.7 K/uL Lymphocytes # (Auto) 0.9 L 1.0-4.8 K/uL Monocytes # (Auto) 0.9 0.1-1.0 K/uL Eosinophils # (Auto) 0.00 0.00-0.70 K/uL Basophils # (Auto) 0.03 0.00-0.20 K/uL Absolute Immature Granulocyte (auto 0.27 0-1 K/uL Segmented Neutrophils % 89 H 40-70 % Lymphocytes % (Manual) 6 L 22-44 % Monocytes % (Manual) 4 2-9 % Nucleated Red Blood Cells 7.9 H 0.0-0.19 % Differential Comment MANUAL DIFFERENTIAL Reactive Lymphocytes 1 H 0-0 % White Cell Morphology Comment HYPERSEGMENT NEUT 1+ Platelet Morphology Comment MARKED DECREASE Red Blood Cell Morphology See comments Sodium Level 141 136-145 mmol/L Potassium Level 5.2 H 3.5-5.1 mmol/L Chloride Level 98 L 101-111 mmol/L Carbon Dioxide Level 18 L 21-32 mmol/L Blood Urea Nitrogen 54 H 7-18 mg/dL Creatinine 3.0 H 0.5-1.0 mg/dL Glomerular Filtration Rate Calc 17 >90 mL/min Random Glucose 189 H 70-105 mg/dL Total Calcium 8.7 8.5-10.1 mg/dL Phosphorus Level 5.7 H 2.5-4.9 mg/dL Magnesium Level 2.40 1.80-2.40 mg/dL Total Bilirubin 12.6 H 0.2-1.0 mg/dL Aspartate Amino Transf (AST/SGOT) 2241 *H 10-37 U/L Alanine Aminotransferase (ALT/SGPT) 842 *H 12-78 U/L Alkaline Phosphatase 229 H 50-136 U/L Total Protein 5.5 L 6.0-8.3 g/dL Albumin 3.4 L 3.5-5.0 g/dL Fibrinogen 199 180-350 mg/dL Lactic Acid Level 7.7 H 0.8-2.5 mmol/L Direct Bilirubin 8.8 *H 0.0-0.3 mg/dL Total Creatine Kinase 4327 *H 21-232 U/L Amylase Level 75 25-115 U/L Lipase 66 16-77 U/L Test 03/12/25 18:33 Range/Units Hemoglobin A1c 5.7 4.0-6.0 % Estimated Average Glucose (eAG) 117 70-126 mg/dL Iron Level 175 H 50-170 mcg/dL Total Iron Binding Capacity 197 L 250-450 mcg/dL Percent Iron Saturation 88.8 H 22-44 % Ferritin 7157 H 15-150 ng/mL Triglycerides Level 145 30-200 mg/dL Cholesterol Level 54 # <200 mg/dL LDL Cholesterol 36 0-99 mg/dL HDL Cholesterol 18 L 35-85 mg/dL Hepatitis B Surface Antigen. Non-Reactive Nonreactive Hepatitis B Surface Antibody. Positive Reactive Hepatitis B Core Total Antibody. Non-Reactive Nonreactive Hepatitis C Antibody Non-Reactive Nonreactive HIV (1&2) Antibody Non-Reactive Negative HIV P24 Antigen, Qualitative Non-Reactive Negative Current Medications Medications (Trade) Dose Ordered Sig/Toby Route PRN Reason Start Time Stop Time Status Last Admin Dose Admin Acetaminophen (TYLenol 325MG TAB) 650 mg Q4H PRN PO TEMPERATURE GREATER THAN 101.5 02/24/25 07:00 03/26/25 06:59 03/01/25 19:06 650 MG Acetaminophen (TYLenol 325MG TAB) 650 mg Q4H PRN PO MILD PAIN (1-3) 03/02/25 02:30 04/01/25 02:29 03/04/25 10:39 650 MG Acetaminophen (TYLenol 325MG TAB) 650 mg Q4H PRN PO Temp >38.3C(AFTER EXTUBATION) 03/08/25 09:30 03/08/25 09:29 DC Acetaminophen (TYLenol 325MG TAB) 650 mg Q6H PRN PO MILD PAIN (1-3) 03/08/25 09:30 03/08/25 09:36 DC Acetaminophen (TYLenol 650MG SUPPOSITORY) 650 mg Q4H PRN RC Temp >38.3C WHILE INTUBATED 03/08/25 09:30 04/07/25 09:29 Acetaminophen (acetaMINOPHEN) 1,000 mg Q6H6 IV 03/08/25 13:00 03/09/25 12:59 DC 03/09/25 12:00 1,000 MG Albumin Human 50 ml @ 999 mls/hr Q6H IV 03/08/25 17:00 03/09/25 11:02 DC 03/09/25 10:10 999 MLS/HR Albumin Human 250 ml @ 0 mls/hr AD IV 03/08/25 19:00 03/10/25 06:44 DC 03/09/25 08:36 1,200 MLS/HR Albumin Human 250 ml @ 0 mls/hr AD PRN IV IF HEMODYNAMICALLY UNSTABLE 03/08/25 09:30 03/08/25 18:48 DC 03/08/25 18:48 1,200 MLS/HR Albumin Human 500 ml @ 0 mls/hr AD IV 03/08/25 20:00 03/09/25 15:49 DC 03/09/25 11:35 1,200 MLS/HR Albumin Human 500 ml @ 0 mls/hr AD IV 03/09/25 22:00 03/14/25 21:59 03/10/25 18:06 999 MLS/HR Albumin Human (Albumin (Human) 25%) 100 ml NOW IV 03/13/25 13:30 03/14/25 13:29 Aminocaproic Acid 86583 mg/Sodium Chloride 310 ml @ 25 mls/hr AD IV 03/08/25 09:30 03/08/25 09:31 DC Aminocaproic Acid 03842 mg/Sodium Chloride 480 ml @ 0 mls/hr AD PRN IV BLEEDING CONTROL 03/08/25 07:00 04/07/25 06:59 Amiodarone HCl 360 mg/Dextrose 207.2 ml @ 33.3 mls/hr AD IV 03/08/25 13:00 03/08/25 12:52 DC Amiodarone HCl 360 mg/Dextrose 207.2 ml @ 33.3 mls/hr AD IV 03/08/25 13:00 03/08/25 12:52 DC Amiodarone HCl 540 mg/Dextrose 310.8 ml @ 16.7 mls/hr [id number] STAT IV 03/08/25 12:45 03/08/25 20:15 DC 03/08/25 16:44 16.7 MLS/HR Argatroban 250 mg/ Sodium Chloride 250 ml @ 0 mls/hr PROTOCOL IV 03/14/25 13:00 04/13/25 12:59 Aspirin (Aspirin 81mg Chew Tab) 81 mg DAILY PO 02/25/25 09:00 03/01/25 12:33 DC 02/28/25 09:18 81 MG Aspirin (Aspirin 81mg Chew Tab) 81 mg DAILY PO 03/02/25 09:00 04/01/25 08:59 03/14/25 09:26 81 MG Aspirin (Aspirin 81mg Ec Tab) 81 mg DAILY PO 02/24/25 09:00 02/24/25 08:52 DC Atorvastatin Calcium (LIPItor 20MG) 20 mg HS PO 02/24/25 21:00 02/24/25 08:52 DC Atorvastatin Calcium (LIPItor 40MG) 40 mg HS PO 02/24/25 21:00 03/12/25 08:25 DC 03/11/25 20:11 40 MG Calcium Gluconate 1 gm/Sodium Chloride 60 ml @ 200 mls/hr AD PRN IV HYPOCALCEMIA 03/08/25 09:30 04/07/25 09:29 03/14/25 00:40 200 MLS/HR Cefazolin Sodium (Ancef) 2 gm ONCALL IVP 03/07/25 22:00 03/09/25 21:59 DC Cefazolin Sodium (Ancef) 2 gm Q8H IVPB 03/08/25 14:30 03/09/25 06:31 DC 03/09/25 06:06 2 GM Citalopram Hydrobromide (CeleXA 20MG TAB) 10 mg DAILY PO 02/25/25 09:00 03/27/25 08:59 03/10/25 08:16 10 MG Dexamethasone Sodium Phosphate (dexaMETHasone 4MG/ML 1ML VIAL) 20 mg Q24H IV 03/12/25 15:30 03/12/25 15:18 DC Dexamethasone Sodium Phosphate 20 mg/Sodium Chloride 50 ml @ 100 mls/hr Q24H IV 03/12/25 15:30 04/11/25 15:29 03/13/25 15:00 100 MLS/HR Dexmedetomidine HCl 400 mcg/ Sodium Chloride 100 ml @ 0 mls/hr AD PRN IV TITRATE 03/13/25 08:00 03/13/25 07:42 DC Dexmedetomidine/ Sodium Chloride (PRECEdex 400MCG/ 100ML-NS) 400 mcg PROTOCOL IV 03/08/25 09:30 03/09/25 09:29 DC Dexmedetomidine/ Sodium Chloride (PRECEdex 400MCG/ 100ML-NS) 400 mcg PROTOCOL IV 03/13/25 08:00 04/12/25 07:59 03/14/25 02:22 400 MCG Dextrose 1,000 ml @ 0 mls/hr Q0M PRN IV OTHER [SEE ORDER COMMENTS] 03/12/25 06:00 04/09/25 23:29 Dextrose 1,000 ml @ 50 mls/hr Q20H IV 03/10/25 23:30 03/12/25 05:51 DC 03/11/25 19:15 50 MLS/HR Dextrose (D50w) 50 ml AD PRN IV HYPOGLYCEMIA PROTOCOL 03/01/25 12:30 03/09/25 15:51 DC Dextrose (D50w) 50 ml AD PRN IV HYPOGLYCEMIA PROTOCOL 03/08/25 09:30 04/07/25 09:29 03/10/25 00:44 50 ML Docusate Sodium (COLace 100MG CAP) 100 mg BID PO 03/03/25 21:00 03/03/25 16:22 DC Docusate Sodium (COLace 100MG CAP) 100 mg BID PO 03/08/25 21:00 04/07/25 20:59 03/14/25 09:26 100 MG Epinephrine HCl 10 mg/Sodium Chloride 250 ml @ 0 mls/hr AD PRN IV TITRATE 03/08/25 07:00 04/07/25 06:59 03/14/25 07:02 8.5 MLS/HR Epinephrine HCl 10 mg/Sodium Chloride 250 ml @ 0 mls/hr AD PRN IV POST-OP CARDIOVASCULAR ORDERS 03/08/25 09:30 03/08/25 09:30 DC Famotidine (Pepcid 20mg Vial) 20 mg BID IV 03/08/25 21:00 03/10/25 20:59 DC 03/10/25 08:16 20 MG Famotidine (Pepcid 20mg Tab) 20 mg BID PO 02/24/25 09:00 03/09/25 10:34 DC 03/07/25 20:29 20 MG Fentanyl Citrate 100 ml @ 0 mls/hr PROTOCOL IV 03/13/25 02:30 03/20/25 02:29 03/13/25 02:29 0 MLS/HR Fentanyl Citrate 1000 mcg/Sodium Chloride 120 ml @ 0 mls/hr AD PRN IV TITRATE 03/13/25 02:30 03/13/25 02:16 DC Folic Acid (FOLic ACID 1 MG TABLET) 1 mg DAILY PO 03/12/25 15:30 04/11/25 15:29 03/14/25 09:26 1 MG Furosemide (LASix 20MG TAB) 20 mg Q12H PO 03/10/25 09:00 03/10/25 16:28 DC Furosemide (LASix 20MG VIAL) 20 mg Q12H IV 03/09/25 09:00 03/10/25 08:59 DC 03/10/25 01:15 20 MG Furosemide 100 mg/ Sodium Chloride 100 ml @ 0 mls/hr PROTOCOL IV 03/10/25 08:00 03/12/25 16:41 DC 03/12/25 05:11 10 MLS/HR Glucagon (Glucagon 1mg Kit) 1 mg AD PRN IM HYPOGLYCEMIA PROTOCOL 03/01/25 12:30 03/09/25 15:51 DC Glucagon (Glucagon 1mg Kit) 1 mg AD PRN IM HYPOGLYCEMIA PROTOCOL 03/08/25 09:30 04/07/25 09:29 Heparin Sodium/ Dextrose 250 ml @ 0 mls/hr PROTOCOL PRN IV PROTOCOL 02/24/25 06:00 02/25/25 05:59 DC 02/25/25 01:09 7.36 MLS/HR Heparin Sodium/ Dextrose 250 ml @ 0 mls/hr Q6H IV 03/13/25 10:30 03/14/25 08:09 DC 03/13/25 10:42 7.14 MLS/HR Insulin Human Regular (humuLIN R 100 UNIT/ML 3ML) INSULIN SLIDING SCAL... ACHS SQ 02/24/25 11:30 03/08/25 09:15 DC 03/06/25 20:24 6 UNIT Insulin Human Regular 100 unit/ Sodium Chloride 100 ml @ 0 mls/hr AD IV 03/08/25 09:30 03/10/25 09:29 DC 03/09/25 16:20 2 MLS/HR Iron Sucrose 300 mg/Sodium Chloride 250 ml @ 83 mls/hr HS IV 03/12/25 21:00 03/15/25 00:01 03/13/25 20:10 83 MLS/HR Iron Sucrose 300 mg/Sodium Chloride 250 ml @ 83 mls/hr Q24H IV 03/12/25 15:30 03/14/25 18:31 Cancel Isosorbide Mononitrate (Imdur 30mg Sr) 30 mg DAILY PO 02/24/25 09:00 03/06/25 11:46 DC 03/06/25 08:13 30 MG Isosorbide Mononitrate (Imdur 30mg Sr) 60 mg DAILY PO 03/07/25 09:00 03/08/25 09:15 DC 03/07/25 08:47 60 MG Ketorolac Tromethamine (ketOROlac troMETHamine) 15 mg Q6H PRN PO MODERATE PAIN (4-6) 03/03/25 18:00 03/03/25 16:22 DC Lactulose (Constulose 20gm/ 30ml Udcup) 20 gm BID PO 03/12/25 21:00 04/11/25 20:59 03/14/25 09:26 20 GM Lactulose (Constulose 20gm/ 30ml Udcup) 20 gm BID PRN PO CONSTIPATION 03/08/25 09:30 04/07/25 09:29 03/12/25 16:26 20 GM Lactulose (Constulose 20gm/ 30ml Udcup) 20 gm BID PRN PO CONSTIPATION 03/12/25 16:30 03/12/25 16:20 DC Magnesium Hydroxide (Milk Of Magnesium 30ml) 30 ml DAILY PRN PO CONSTIPATION 03/08/25 09:30 04/07/25 09:29 Magnesium Sulfate 50 ml @ 12.5 mls/hr AD PRN IV MAG LEVEL LESS THAN 2.0 03/08/25 09:30 04/07/25 09:29 03/12/25 22:19 12.5 MLS/HR Magnesium Sulfate 50 ml @ 0 mls/hr PROTOCOL PRN IV low mag level 02/24/25 09:30 03/09/25 15:49 DC Metoprolol Succinate (TopROL XL) 12.5 mg DAILY PO 02/24/25 09:00 03/06/25 18:49 DC 03/03/25 08:36 12.5 MG Midodrine (PROAMatine 5 MG TABLET) 10 mg TID PO 03/03/25 14:00 03/08/25 09:15 DC 03/07/25 14:38 10 MG Morphine Sulfate (morPHINE 2MG SYG) 0.5 mg Q2H PRN IV MODERATE PAIN (4-6) 03/08/25 09:30 03/09/25 09:29 DC Morphine Sulfate (morPHINE 2MG SYG) 1 mg Q2H PRN IV SEVERE PAIN (7-10) 03/08/25 09:30 03/09/25 09:29 DC Nitroglycerin (Nitrostat) 0.4 mg Q5M PRN SL CHEST PAIN 02/24/25 06:00 03/06/25 08:51 DC 03/06/25 08:50 0.4 MG Nitroglycerin/ Dextrose 0 ml @ 0 mls/hr AD IV 03/08/25 09:30 03/11/25 09:29 DC Norepinephrine Bitartrate 250 ml @ 0 mls/hr AD PRN IV TITRATE 03/08/25 07:00 03/08/25 23:13 DC Norepinephrine Bitartrate (Norepineph 16 Mg/250ml NS Premix) PER PROTOCOL PROTOCOL IV 03/08/25 23:30 04/07/25 23:29 03/11/25 19:17 16 MG Norepinephrine Bitartrate 8 mg/ Dextrose 250 ml @ 0 mls/hr AD PRN IV POST-OP CARDIOVASCULAR ORDERS 03/08/25 09:30 03/08/25 09:30 DC Ondansetron HCl (zoFRAN 4MG INJ) 4 mg Q6H PRN IV NAUSEA/VOMITING 03/08/25 09:30 04/07/25 09:29 Pharmacy Profile Note (Pharmacy Communication) 1 each ONCE MISC 03/14/25 08:00 03/14/25 12:36 DC Phytonadione 10 mg/Sodium Chloride 51 ml @ 100 mls/hr Q24H IVPB 03/10/25 01:00 03/12/25 01:31 DC 03/12/25 00:27 100 MLS/HR Piperacillin Sod/ Tazobactam Sod (Zosyn 3.375gm+NS 50ml) 3.375 gm Q8H IVPB 03/10/25 10:30 03/20/25 10:29 03/14/25 10:21 3.375 GM Polyethylene Glycol (MIRalax 3350 17 GM POWD.PACK) 17 gm DAILY PO 03/13/25 09:00 04/12/25 08:59 03/14/25 09:26 17 GM Potassium Phosphate 250 ml @ 42 mls/hr AD PRN IV LOW PHOS LEVEL 03/08/25 09:30 04/07/25 09:29 03/09/25 08:23 42 MLS/HR Potassium Chloride 100 ml @ 50 mls/hr AD PRN IV POTASSIUM PROTOCOL 02/24/25 09:30 03/08/25 09:15 DC Potassium Chloride 100 ml @ 100 mls/hr AD PRN IV POTASSIUM PROTOCOL 02/26/25 11:30 02/27/25 09:49 DC Potassium Chloride 100 ml @ 100 mls/hr AD PRN IV HYPOKALEMIA 03/08/25 09:30 04/07/25 09:29 03/09/25 05:37 100 MLS/HR Potassium Chloride (K-Dur/Klor-Con 20meq) 20 meq AD PRN PO POTASSIUM PROTOCOL 02/26/25 11:30 03/08/25 09:15 DC 03/07/25 05:23 20 MEQ Potassium Chloride (KCl 10% Elixir 20meq/15ml) 20 meq AD PRN PO POTASSIUM PROTOCOL 02/26/25 11:30 03/08/25 09:15 DC Prasugrel (Effient 10mg) 10 mg DAILY PO 02/25/25 09:00 03/01/25 12:54 DC 02/28/25 09:18 10 MG Propofol 100 ml @ 0 mls/hr AD PRN IV SEDATION 03/08/25 09:30 03/12/25 09:29 DC Prothrombin Complex Concent (Human) (Kcentra 500 Unit Kit) 500 unit ONCE IV 03/10/25 12:00 03/10/25 12:24 DC Sodium Bicarbonate 25 meq/Dextrose 1,000 ml @ 0 mls/hr Q0M PRN IVP OTHER [SEE ORDER COMMENTS] 03/10/25 22:30 04/09/25 22:29 03/10/25 23:31 11.6 MLS/HR Sodium Bicarbonate (Sodium Bicarb 50meq 50ml Vial) 50 meq AD PRN IV OTHER[SEE DOSING INSTRUCTIONS] 03/08/25 09:30 03/11/25 09:29 DC 03/10/25 04:56 100 MEQ Sodium Chloride 500 ml @ 0 mls/hr AD IV 03/08/25 09:30 04/07/25 09:29 03/11/25 02:21 3 MLS/HR Sodium Chloride 1,000 ml @ 0 mls/hr ONCE IV 03/12/25 18:00 03/13/25 13:09 DC Sodium Chloride 1,000 ml @ 0 mls/hr ONCE IV 03/13/25 13:30 04/12/25 13:29 03/13/25 13:41 333 MLS/HR Sodium Chloride 1,000 ml @ 10 mls/hr ONCE IV 03/08/25 09:30 03/09/25 09:29 DC Sodium Chloride 1,000 ml @ 150 mls/hr Q6H40M IV 03/01/25 12:30 03/01/25 16:29 DC 03/01/25 19:04 150 MLS/HR Sodium Chloride (NS 50ml) 50 ml AD IV 03/10/25 10:30 03/10/25 16:27 DC Sodium Chloride (NS Flush 10ml) 10 ml Q8H PRN IVP IV LINE FLUSH 03/08/25 09:30 04/07/25 09:29 Tramadol HCl (UltRAM) 50 mg Q6H PRN PO MODERATE PAIN (4-6) 03/08/25 09:30 03/13/25 09:29 DC Tramadol HCl (UltRAM) 100 mg Q6H PRN PO SEVERE PAIN (7-10) 03/08/25 09:30 03/13/25 09:29 DC Vasopressin 40 units/Sodium Chloride 40 ml @ 0 mls/hr PROTOCOL IV 03/08/25 17:00 04/07/25 16:59 03/10/25 19:26 2.4 MLS/HR Vitamin B Complex (Vitamin B-12) 1,000 mcg DAILY PO 03/12/25 15:30 04/11/25 15:29 03/14/25 09:26 1,000 MCG DIAGNOSTICS / RADIOLOGY: [ ] Assessment: Severe 2 vessel CAD -S/P 4v CABG with impella support on 03-08-[address] Barajas Acute on chronic HFmrEF (LVEF: 40-45% by echo done on 02/25/2025, LVEF 30% on 03.14.25) Cardiogenic shock SCAI Stage D with multiorgan dysfunction , not POA - secondary to complex nature of the procedure and preexisting comorbidities . Multiorgan dysfunction including shock Liver , Acute Kidney failure , respiratory failure -post procedure secondary to complex nature of the CABG and preexisting comorbidities . Anemia , Poa Acute blood loss anemia , s/p surgery - expected . Thrombocytopenia-rule out HIT Severe protein calorie malnutrition with muscle atrophy ; BMI 14.2 NOT POA, expected secondary to comorbidities History of Myocardial infarction 2023 Unstable angina s/p Lexiscan Reversible large defect in the anterior, septal lucas. TID 1.19. LVEF 39%. CAD status post stenting of the proximal LAD proximal circumflex and mid circumflex artery as above with documented progression of disease December 2024 managed medically because of concern the patient would not be compliant with dual antiplatelet therapy Remote anterior wall myocardial infarction July 2024 complicated by cardiogenic shock requiring Impella support for PCI with subsequent ischemic leg requiring [id number] amputation Uncontrolled hypertension POA Hyperlipidemia Uncontrolled diabetes mellitus type 2 with hyperglycemia POA Non compliance to medications, POA Hypercoagulable state on Prasugrel POA Functional decline: s/p Rt BKA POA PLAN: Admit: Continue telemetry condition: guarded Status: full code LINES: cvc impella chest tube et tube og tube marlin DRIPS: levophed Severe 2 vessel CAD -S/P 4v CABG 03-08-[address] Barajas Coronary angiogram on 03/01/2025 revealed severe two-vessel CAD and patient underwent 4v CABG on 03/08/2025 following which patient became hypotensive in t he OR, followed by cardiac arrest requiring CPR and ventricular fibrillation s/p cardioversion -subsequently pericardium was reopened and patient was found to have a nonfunctional GOLDSTEIN to LAD anastomosis - s/p repair Impella was inserted for Cardiogenic shock chest tube drain about 350 cc in last 24 hours Defer Beta blockers at this time and continue Continue Aspirin 81mg, as per Cardiology consult recommendations Hold statins, in view of elevated LFTs Cardiogenic shock: S/p 4vCABG complicated by a nonfucntional GOLDSTEIN Currently Impella in place with flow rate 4.3-4.5 set at P8 Anemia, Thrombocytopenia Anemia possibly secondary to hemolysis/myeloproliferative Continue folic acid 1 mg p.o. daily and vitamin B12 1000 mcg p.o. daily. Continue dexamethasone 20 mg IV daily as per recommendations Heparin is stopped and patient is started on Argatroban Continue midodrine 10 mg t.i.d. PRN for systolic blood pressure less than 100. Replace electrolytes as needed as per protocol to keep potassium above 4.0 magnesium 2.0. ac/hs monitoring with SSRI coverage Follow up on left arterial US results Continue Zosyn for prophylactic coverage Supportive measures: DVT ppx, GI ppx ATTESTATION BY PHYSICIAN I have seen and examined the patient. I reviewed the documentation, medical decision making, and treatment plan as noted by the resident provider above. I agree with the findings and plan of care. AMRIK COCHRAN MD, MD Mar 14, 2025 13:34
--- NOTE | 2025-03-14 14:43 | PN ---
NEPHROLOGY PROGRESS NOTE Date/Time Patient Seen: Mar 14, 2025 SUBJECTIVE: The patient is a 59-year-old female who presented with myocardial infarction. The patient underwent coronary catheterization. The patient was found to have three-vessel disease and underwent CABG. She has had acute renal failure postoperatively. Creatinine continues to be elevated. She remains on the pressors and she is being seen as a followup visit for all the above. Dialysis done yesterday. She continues with the Impella in place. Pending platelet transfusion and PICC line placement. She was seen in the ICU Continues to be intubated and sedated No family at the bedside Condition is critical and guarded REVIEW OF SYSTEMS: Difficult to obtain given status of the patient who remains intubated mechanically ventilated Vital Signs (last 8hr) Date Time Temp Pulse Resp B/P (MAP) Pulse Ox O2 Delivery O2 Flow Rate FiO2 03/14/25 14:00 83 28 111/77 (88) 92 03/14/25 13:45 81 28 110/75 (87) 03/14/25 13:30 79 29 110/76 (87) 03/14/25 13:15 79 28 112/77 (89) 03/14/25 13:00 78 29 113/78 (90) 03/14/25 12:45 77 29 115/80 (92) 91 03/14/25 12:30 76 28 118/81 (93) 91 03/14/25 12:15 79 28 124/85 (98) 91 03/14/25 12:00 88 Ventilator+ 50 03/14/25 12:00 99.7 Ventilator 60 03/14/25 12:00 99.7 89 28 126/85 (99) 91 03/14/25 12:00 50 03/14/25 11:45 80 28 113/78 (90) 91 03/14/25 11:36 81 50 03/14/25 11:30 81 28 115/74 (88) 92 03/14/25 11:15 81 29 113/73 (86) 92 03/14/25 11:00 79 29 113/73 (86) 92 03/14/25 10:45 83 31 117/74 (88) 92 03/14/25 10:30 80 29 116/73 (87) 92 03/14/25 10:15 81 31 113/73 (86) 91 03/14/25 10:00 84 29 112/71 (85) 94 03/14/25 09:45 85 30 109/70 (83) 93 03/14/25 09:34 85 50 03/14/25 09:30 85 31 105/68 (80) 03/14/25 09:15 84 31 110/71 (84) 03/14/25 09:00 84 31 107/69 (82) 03/14/25 08:45 85 32 107/69 (82) 03/14/25 08:30 85 23 98/66 (77) 03/14/25 08:15 83 31 108/70 (83) 03/14/25 08:00 88 Ventilator+ 50 03/14/25 08:00 99.5 84 31 108/70 (83) 03/14/25 08:00 99.5 Ventilator 60 03/14/25 08:00 50 03/14/25 07:45 84 32 108/69 (82) 03/14/25 07:30 80 32 106/69 (81) 03/14/25 07:15 83 34 108/70 (83) 03/14/25 07:00 83 34 110/71 (84) 03/14/25 06:45 84 32 111/74 (86) 74 03/14/25 06:38 82 50 PHYSICAL EXAM: General: acutely ill, sedated, intubated, and mechanically ventilated HEENT: head is atraumatic, pupils equal and reactive, ET tube in place Neck: supple, no masses, no lymphadenopathy, no thyromegaly, no JVD Lungs: decreased breath sounds bilaterally, symmetrical chest movement Cardio: regular rate, S1 and S2 normal, no rub or gallop Abdomen: soft, non tender, no distension, no organomegaly Extremities: trace edema bilateral lower extremities, no cyanosis or clubbing Skin: no rashes or suspicious lesions Neuro: sedated Current Medications Medications (Trade) Dose Ordered Sig/Toby Route PRN Reason Start Time Stop Time Status Last Admin Dose Admin Acetaminophen (TYLenol 325MG TAB) 650 mg Q4H PRN PO TEMPERATURE GREATER THAN 101.5 02/24/25 07:00 03/26/25 06:59 03/01/25 19:06 650 MG Acetaminophen (TYLenol 325MG TAB) 650 mg Q4H PRN PO MILD PAIN (1-3) 03/02/25 02:30 04/01/25 02:29 03/04/25 10:39 650 MG Acetaminophen (TYLenol 325MG TAB) 650 mg Q4H PRN PO Temp >38.3C(AFTER EXTUBATION) 03/08/25 09:30 03/08/25 09:29 DC Acetaminophen (TYLenol 325MG TAB) 650 mg Q6H PRN PO MILD PAIN (1-3) 03/08/25 09:30 03/08/25 09:36 DC Acetaminophen (TYLenol 650MG SUPPOSITORY) 650 mg Q4H PRN RC Temp >38.3C WHILE INTUBATED 03/08/25 09:30 04/07/25 09:29 Acetaminophen (acetaMINOPHEN) 1,000 mg Q6H6 IV 03/08/25 13:00 03/09/25 12:59 DC 03/09/25 12:00 1,000 MG Albumin Human 50 ml @ 999 mls/hr Q6H IV 03/08/25 17:00 03/09/25 11:02 DC 03/09/25 10:10 999 MLS/HR Albumin Human 250 ml @ 0 mls/hr AD IV 03/08/25 19:00 03/10/25 06:44 DC 03/09/25 08:36 1,200 MLS/HR Albumin Human 250 ml @ 0 mls/hr AD PRN IV IF HEMODYNAMICALLY UNSTABLE 03/08/25 09:30 03/08/25 18:48 DC 03/08/25 18:48 1,200 MLS/HR Albumin Human 500 ml @ 0 mls/hr AD IV 03/08/25 20:00 03/09/25 15:49 DC 03/09/25 11:35 1,200 MLS/HR Albumin Human 500 ml @ 0 mls/hr AD IV 03/09/25 22:00 03/14/25 21:59 03/10/25 18:06 999 MLS/HR Albumin Human (Albumin (Human) 25%) 100 ml NOW IV 03/13/25 13:30 03/14/25 13:29 DC Aminocaproic Acid 86972 mg/Sodium Chloride 310 ml @ 25 mls/hr AD IV 03/08/25 09:30 03/08/25 09:31 DC Aminocaproic Acid 76083 mg/Sodium Chloride 480 ml @ 0 mls/hr AD PRN IV BLEEDING CONTROL 03/08/25 07:00 04/07/25 06:59 Amiodarone HCl 360 mg/Dextrose 207.2 ml @ 33.3 mls/hr AD IV 03/08/25 13:00 03/08/25 12:52 DC Amiodarone HCl 360 mg/Dextrose 207.2 ml @ 33.3 mls/hr AD IV 03/08/25 13:00 03/08/25 12:52 DC Amiodarone HCl 540 mg/Dextrose 310.8 ml @ 16.7 mls/hr [id number] STAT IV 03/08/25 12:45 03/08/25 20:15 DC 03/08/25 16:44 16.7 MLS/HR Argatroban 250 mg/ Sodium Chloride 250 ml @ 0 mls/hr PROTOCOL IV 03/14/25 13:00 04/13/25 12:59 Aspirin (Aspirin 81mg Chew Tab) 81 mg DAILY PO 02/25/25 09:00 03/01/25 12:33 DC 02/28/25 09:18 81 MG Aspirin (Aspirin 81mg Chew Tab) 81 mg DAILY PO 03/02/25 09:00 04/01/25 08:59 03/14/25 09:26 81 MG Aspirin (Aspirin 81mg Ec Tab) 81 mg DAILY PO 02/24/25 09:00 02/24/25 08:52 DC Atorvastatin Calcium (LIPItor 20MG) 20 mg HS PO 02/24/25 21:00 02/24/25 08:52 DC Atorvastatin Calcium (LIPItor 40MG) 40 mg HS PO 02/24/25 21:00 03/12/25 08:25 DC 03/11/25 20:11 40 MG Calcium Gluconate 1 gm/Sodium Chloride 60 ml @ 200 mls/hr AD PRN IV HYPOCALCEMIA 03/08/25 09:30 04/07/25 09:29 03/14/25 00:40 200 MLS/HR Cefazolin Sodium (Ancef) 2 gm ONCALL IVP 03/07/25 22:00 03/09/25 21:59 DC Cefazolin Sodium (Ancef) 2 gm Q8H IVPB 03/08/25 14:30 03/09/25 06:31 DC 03/09/25 06:06 2 GM Citalopram Hydrobromide (CeleXA 20MG TAB) 10 mg DAILY PO 02/25/25 09:00 03/27/25 08:59 03/10/25 08:16 10 MG Dexamethasone Sodium Phosphate (dexaMETHasone 4MG/ML 1ML VIAL) 20 mg Q24H IV 03/12/25 15:30 03/12/25 15:18 DC Dexamethasone Sodium Phosphate 20 mg/Sodium Chloride 50 ml @ 100 mls/hr Q24H IV 03/12/25 15:30 04/11/25 15:29 03/13/25 15:00 100 MLS/HR Dexmedetomidine HCl 400 mcg/ Sodium Chloride 100 ml @ 0 mls/hr AD PRN IV TITRATE 03/13/25 08:00 03/13/25 07:42 DC Dexmedetomidine/ Sodium Chloride (PRECEdex 400MCG/ 100ML-NS) 400 mcg PROTOCOL IV 03/08/25 09:30 03/09/25 09:29 DC Dexmedetomidine/ Sodium Chloride (PRECEdex 400MCG/ 100ML-NS) 400 mcg PROTOCOL IV 03/13/25 08:00 04/12/25 07:59 03/14/25 02:22 400 MCG Dextrose 1,000 ml @ 0 mls/hr Q0M PRN IV OTHER [SEE ORDER COMMENTS] 03/12/25 06:00 04/09/25 23:29 Dextrose 1,000 ml @ 50 mls/hr Q20H IV 03/10/25 23:30 03/12/25 05:51 DC 03/11/25 19:15 50 MLS/HR Dextrose (D50w) 50 ml AD PRN IV HYPOGLYCEMIA PROTOCOL 03/01/25 12:30 03/09/25 15:51 DC Dextrose (D50w) 50 ml AD PRN IV HYPOGLYCEMIA PROTOCOL 03/08/25 09:30 04/07/25 09:29 03/10/25 00:44 50 ML Docusate Sodium (COLace 100MG CAP) 100 mg BID PO 03/03/25 21:00 03/03/25 16:22 DC Docusate Sodium (COLace 100MG CAP) 100 mg BID PO 03/08/25 21:00 04/07/25 20:59 03/14/25 09:26 100 MG Epinephrine HCl 10 mg/Sodium Chloride 250 ml @ 0 mls/hr AD PRN IV TITRATE 03/08/25 07:00 04/07/25 06:59 03/14/25 07:02 8.5 MLS/HR Epinephrine HCl 10 mg/Sodium Chloride 250 ml @ 0 mls/hr AD PRN IV POST-OP CARDIOVASCULAR ORDERS 03/08/25 09:30 03/08/25 09:30 DC Famotidine (Pepcid 20mg Vial) 20 mg BID IV 03/08/25 21:00 03/10/25 20:59 DC 03/10/25 08:16 20 MG Famotidine (Pepcid 20mg Tab) 20 mg BID PO 02/24/25 09:00 03/09/25 10:34 DC 03/07/25 20:29 20 MG Fentanyl Citrate 100 ml @ 0 mls/hr PROTOCOL IV 03/13/25 02:30 03/20/25 02:29 03/13/25 02:29 0 MLS/HR Fentanyl Citrate 1000 mcg/Sodium Chloride 120 ml @ 0 mls/hr AD PRN IV TITRATE 03/13/25 02:30 03/13/25 02:16 DC Folic Acid (FOLic ACID 1 MG TABLET) 1 mg DAILY PO 03/12/25 15:30 04/11/25 15:29 03/14/25 09:26 1 MG Furosemide (LASix 20MG TAB) 20 mg Q12H PO 03/10/25 09:00 03/10/25 16:28 DC Furosemide (LASix 20MG VIAL) 20 mg Q12H IV 03/09/25 09:00 03/10/25 08:59 DC 03/10/25 01:15 20 MG Furosemide 100 mg/ Sodium Chloride 100 ml @ 0 mls/hr PROTOCOL IV 03/10/25 08:00 03/12/25 16:41 DC 03/12/25 05:11 10 MLS/HR Glucagon (Glucagon 1mg Kit) 1 mg AD PRN IM HYPOGLYCEMIA PROTOCOL 03/01/25 12:30 03/09/25 15:51 DC Glucagon (Glucagon 1mg Kit) 1 mg AD PRN IM HYPOGLYCEMIA PROTOCOL 03/08/25 09:30 04/07/25 09:29 Heparin Sodium/ Dextrose 250 ml @ 0 mls/hr PROTOCOL PRN IV PROTOCOL 02/24/25 06:00 02/25/25 05:59 DC 02/25/25 01:09 7.36 MLS/HR Heparin Sodium/ Dextrose 250 ml @ 0 mls/hr Q6H IV 03/13/25 10:30 03/14/25 08:09 DC 03/13/25 10:42 7.14 MLS/HR Insulin Human Regular (humuLIN R 100 UNIT/ML 3ML) INSULIN SLIDING SCAL... ACHS SQ 02/24/25 11:30 03/08/25 09:15 DC 03/06/25 20:24 6 UNIT Insulin Human Regular 100 unit/ Sodium Chloride 100 ml @ 0 mls/hr AD IV 03/08/25 09:30 03/10/25 09:29 DC 03/09/25 16:20 2 MLS/HR Iron Sucrose 300 mg/Sodium Chloride 250 ml @ 83 mls/hr HS IV 03/12/25 21:00 03/15/25 00:01 03/13/25 20:10 83 MLS/HR Iron Sucrose 300 mg/Sodium Chloride 250 ml @ 83 mls/hr Q24H IV 03/12/25 15:30 03/14/25 18:31 Cancel Isosorbide Mononitrate (Imdur 30mg Sr) 30 mg DAILY PO 02/24/25 09:00 03/06/25 11:46 DC 03/06/25 08:13 30 MG Isosorbide Mononitrate (Imdur 30mg Sr) 60 mg DAILY PO 03/07/25 09:00 03/08/25 09:15 DC 03/07/25 08:47 60 MG Ketorolac Tromethamine (ketOROlac troMETHamine) 15 mg Q6H PRN PO MODERATE PAIN (4-6) 03/03/25 18:00 03/03/25 16:22 DC Lactulose (Constulose 20gm/ 30ml Udcup) 20 gm BID PO 03/12/25 21:00 04/11/25 20:59 03/14/25 09:26 20 GM Lactulose (Constulose 20gm/ 30ml Udcup) 20 gm BID PRN PO CONSTIPATION 03/08/25 09:30 04/07/25 09:29 03/12/25 16:26 20 GM Lactulose (Constulose 20gm/ 30ml Udcup) 20 gm BID PRN PO CONSTIPATION 03/12/25 16:30 03/12/25 16:20 DC Magnesium Hydroxide (Milk Of Magnesium 30ml) 30 ml DAILY PRN PO CONSTIPATION 03/08/25 09:30 04/07/25 09:29 Magnesium Sulfate 50 ml @ 12.5 mls/hr AD PRN IV MAG LEVEL LESS THAN 2.0 03/08/25 09:30 04/07/25 09:29 03/12/25 22:19 12.5 MLS/HR Magnesium Sulfate 50 ml @ 0 mls/hr PROTOCOL PRN IV low mag level 02/24/25 09:30 03/09/25 15:49 DC Metoprolol Succinate (TopROL XL) 12.5 mg DAILY PO 02/24/25 09:00 03/06/25 18:49 DC 03/03/25 08:36 12.5 MG Midodrine (PROAMatine 5 MG TABLET) 10 mg TID PO 03/03/25 14:00 03/08/25 09:15 DC 03/07/25 14:38 10 MG Morphine Sulfate (morPHINE 2MG SYG) 0.5 mg Q2H PRN IV MODERATE PAIN (4-6) 03/08/25 09:30 03/09/25 09:29 DC Morphine Sulfate (morPHINE 2MG SYG) 1 mg Q2H PRN IV SEVERE PAIN (7-10) 03/08/25 09:30 03/09/25 09:29 DC Nitroglycerin (Nitrostat) 0.4 mg Q5M PRN SL CHEST PAIN 02/24/25 06:00 03/06/25 08:51 DC 03/06/25 08:50 0.4 MG Nitroglycerin/ Dextrose 0 ml @ 0 mls/hr AD IV 03/08/25 09:30 03/11/25 09:29 DC Norepinephrine Bitartrate 250 ml @ 0 mls/hr AD PRN IV TITRATE 03/08/25 07:00 03/08/25 23:13 DC Norepinephrine Bitartrate (Norepineph 16 Mg/250ml NS Premix) PER PROTOCOL PROTOCOL IV 03/08/25 23:30 04/07/25 23:29 03/11/25 19:17 16 MG Norepinephrine Bitartrate 8 mg/ Dextrose 250 ml @ 0 mls/hr AD PRN IV POST-OP CARDIOVASCULAR ORDERS 03/08/25 09:30 03/08/25 09:30 DC Ondansetron HCl (zoFRAN 4MG INJ) 4 mg Q6H PRN IV NAUSEA/VOMITING 03/08/25 09:30 04/07/25 09:29 Pharmacy Profile Note (Pharmacy Communication) 1 each ONCE MISC 03/14/25 08:00 03/14/25 12:36 DC Phytonadione 10 mg/Sodium Chloride 51 ml @ 100 mls/hr Q24H IVPB 03/10/25 01:00 03/12/25 01:31 DC 03/12/25 00:27 100 MLS/HR Piperacillin Sod/ Tazobactam Sod (Zosyn 3.375gm+NS 50ml) 3.375 gm Q8H IVPB 03/10/25 10:30 03/20/25 10:29 03/14/25 10:21 3.375 GM Polyethylene Glycol (MIRalax 3350 17 GM POWD.PACK) 17 gm DAILY PO 03/13/25 09:00 04/12/25 08:59 03/14/25 09:26 17 GM Potassium Phosphate 250 ml @ 42 mls/hr AD PRN IV LOW PHOS LEVEL 03/08/25 09:30 04/07/25 09:29 03/09/25 08:23 42 MLS/HR Potassium Chloride 100 ml @ 50 mls/hr AD PRN IV POTASSIUM PROTOCOL 02/24/25 09:30 03/08/25 09:15 DC Potassium Chloride 100 ml @ 100 mls/hr AD PRN IV POTASSIUM PROTOCOL 02/26/25 11:30 02/27/25 09:49 DC Potassium Chloride 100 ml @ 100 mls/hr AD PRN IV HYPOKALEMIA 03/08/25 09:30 04/07/25 09:29 03/09/25 05:37 100 MLS/HR Potassium Chloride (K-Dur/Klor-Con 20meq) 20 meq AD PRN PO POTASSIUM PROTOCOL 02/26/25 11:30 03/08/25 09:15 DC 03/07/25 05:23 20 MEQ Potassium Chloride (KCl 10% Elixir 20meq/15ml) 20 meq AD PRN PO POTASSIUM PROTOCOL 02/26/25 11:30 03/08/25 09:15 DC Prasugrel (Effient 10mg) 10 mg DAILY PO 02/25/25 09:00 03/01/25 12:54 DC 02/28/25 09:18 10 MG Propofol 100 ml @ 0 mls/hr AD PRN IV SEDATION 03/08/25 09:30 03/12/25 09:29 DC Prothrombin Complex Concent (Human) (Kcentra 500 Unit Kit) 500 unit ONCE IV 03/10/25 12:00 03/10/25 12:24 DC Sodium Bicarbonate 25 meq/Dextrose 1,000 ml @ 0 mls/hr Q0M PRN IVP OTHER [SEE ORDER COMMENTS] 03/10/25 22:30 04/09/25 22:29 03/10/25 23:31 11.6 MLS/HR Sodium Bicarbonate (Sodium Bicarb 50meq 50ml Vial) 50 meq AD PRN IV OTHER[SEE DOSING INSTRUCTIONS] 03/08/25 09:30 03/11/25 09:29 DC 03/10/25 04:56 100 MEQ Sodium Chloride 500 ml @ 0 mls/hr AD IV 03/08/25 09:30 04/07/25 09:29 03/11/25 02:21 3 MLS/HR Sodium Chloride 1,000 ml @ 0 mls/hr ONCE IV 03/12/25 18:00 03/13/25 13:09 DC Sodium Chloride 1,000 ml @ 0 mls/hr ONCE IV 03/13/25 13:30 04/12/25 13:29 03/13/25 13:41 333 MLS/HR Sodium Chloride 1,000 ml @ 10 mls/hr ONCE IV 03/08/25 09:30 03/09/25 09:29 DC Sodium Chloride 1,000 ml @ 150 mls/hr Q6H40M IV 03/01/25 12:30 03/01/25 16:29 DC 03/01/25 19:04 150 MLS/HR Sodium Chloride (NS 50ml) 50 ml AD IV 03/10/25 10:30 03/10/25 16:27 DC Sodium Chloride (NS Flush 10ml) 10 ml Q8H PRN IVP IV LINE FLUSH 03/08/25 09:30 04/07/25 09:29 Tramadol HCl (UltRAM) 50 mg Q6H PRN PO MODERATE PAIN (4-6) 03/08/25 09:30 03/13/25 09:29 DC Tramadol HCl (UltRAM) 100 mg Q6H PRN PO SEVERE PAIN (7-10) 03/08/25 09:30 03/13/25 09:29 DC Vasopressin 40 units/Sodium Chloride 40 ml @ 0 mls/hr PROTOCOL IV 03/08/25 17:00 04/07/25 16:59 03/10/25 19:26 2.4 MLS/HR Vitamin B Complex (Vitamin B-12) 1,000 mcg DAILY PO 03/12/25 15:30 04/11/25 15:29 03/14/25 09:26 1,000 MCG LABORATORY: [ ] Hematology Labs: Test 03/14/25 06:15 Range/Units White Blood Count 12.9 H 4.8-10.8 K/uL Red Blood Count 2.49 L 4.00-5.50 MIL/uL Hemoglobin 7.6 L 12.0-16.0 g/dL Hematocrit 23.4 L 36-48 % Mean Corpuscular Volume 94.0 79-99 fL Mean Corpuscular Hemoglobin 30.5 27.0-33.0 pg Mean Corpuscular Hemoglobin Concent 32.5 32.0-36.0 g/dL Red Cell Distribution Width 17.8 H 11.0-15.5 % Platelet Count 14 L 130-400 K/uL Mean Platelet Volume 7.5-10.5 fL Immature Granulocyte % (Auto) 2.1 H 0-1 % Neutrophils (%) (Auto) 83.9 H 40.0-77.0 % Lymphocytes (%) (Auto) 7.2 L 21.0-51.0 % Monocytes (%) (Auto) 6.6 3.0-13.0 % Eosinophils (%) (Auto) 0.0 0.0-8.0 % Basophils (%) (Auto) 0.2 0.0-5.0 % Neutrophils # (Auto) 10.8 H 1.8-7.7 K/uL Lymphocytes # (Auto) 0.9 L 1.0-4.8 K/uL Monocytes # (Auto) 0.9 0.1-1.0 K/uL Eosinophils # (Auto) 0.00 0.00-0.70 K/uL Basophils # (Auto) 0.03 0.00-0.20 K/uL Absolute Immature Granulocyte (auto 0.27 0-1 K/uL Segmented Neutrophils % 89 H 40-70 % Lymphocytes % (Manual) 6 L 22-44 % Monocytes % (Manual) 4 2-9 % Nucleated Red Blood Cells 7.9 H 0.0-0.19 % Differential Comment MANUAL DIFFERENTIAL Reactive Lymphocytes 1 H 0-0 % White Cell Morphology Comment HYPERSEGMENT NEUT 1+ Platelet Morphology Comment MARKED DECREASE Red Blood Cell Morphology See comments Chemistry Labs: Test 03/14/25 06:15 03/13/25 03:45 03/12/25 18:33 Range/Units Sodium Level 141 136-145 mmol/L Potassium Level 5.2 H 3.5-5.1 mmol/L Chloride Level 98 L 101-111 mmol/L Carbon Dioxide Level 18 L 21-32 mmol/L Blood Urea Nitrogen 54 H 7-18 mg/dL Creatinine 3.0 H 0.5-1.0 mg/dL Glomerular Filtration Rate Calc 17 >90 mL/min Random Glucose 189 H 70-105 mg/dL Total Calcium 8.7 8.5-10.1 mg/dL Phosphorus Level 5.7 H 2.5-4.9 mg/dL Magnesium Level 2.40 1.80-2.40 mg/dL Total Bilirubin 12.6 H 0.2-1.0 mg/dL Aspartate Amino Transf (AST/SGOT) 2241 *H 10-37 U/L Alanine Aminotransferase (ALT/SGPT) 842 *H 12-78 U/L Alkaline Phosphatase 229 H 50-136 U/L Total Protein 5.5 L 6.0-8.3 g/dL Albumin 3.4 L 3.5-5.0 g/dL Lactic Acid Level 7.7 H 0.8-2.5 mmol/L Direct Bilirubin 8.8 *H 0.0-0.3 mg/dL Total Creatine Kinase 4327 *H 21-232 U/L Amylase Level 75 25-115 U/L Lipase 66 16-77 U/L Hemoglobin A1c 5.7 4.0-6.0 % Estimated Average Glucose (eAG) 117 70-126 mg/dL Iron Level 175 H 50-170 mcg/dL Total Iron Binding Capacity 197 L 250-450 mcg/dL Percent Iron Saturation 88.8 H 22-44 % Ferritin 7157 H 15-150 ng/mL Triglycerides Level 145 30-200 mg/dL Cholesterol Level 54 # <200 mg/dL LDL Cholesterol 36 0-99 mg/dL HDL Cholesterol 18 L 35-85 mg/dL Coagulation Labs: Test 03/14/25 11:03 03/13/25 03:45 Range/Units Prothrombin Time 17.0 H 9.6-11.6 SEC Prothromb Time International Ratio 1.69 H 0.85-1.15 Activated Partial Thromboplast Time 59.2 #H 26.3-35.5 SEC Fibrinogen 199 180-350 mg/dL DIAGNOSTICS / RADIOLOGY: REASON: Impella placement ORDERING PHYSICIAN: MANDEEP PRINCE NP PROCEDURE: ECHO FU LD - ECHO 2-D F/U-LTD APPROVED REPORT EXAM: LIMITED Two-dimensional and M-mode echocardiogram. INDICATION ICD: impella placement 2D Dimensions IVSd 0.6 (0.7-1.1cm) LVEF(%) 31.5 (>50%) LVED Vol(simp.) 90.0 mL LVDd 3.9 (3.8-5.6cm) FS(%) 15 % LVES Vol(simp.) 62.0 mL PWd 1.1 (0.7-1.1cm) LA (2D) 2.5 (1.6-4.0cm) LVEF(%, simp.) 32 % LVDs 3.3 (2.5-4.0cm) Ao Root(2D) 2.8 (2.0-3.7cm) Deformation Strain Apical 4 -4.2 % Apical 2 -6.0 % Apical 3 -9.6 % Global Strain -6.6 % Left Ventricle Left ventricular cavity size is normal. Impella device present and well seated in the left ventricle. Impella measures 3.3 cm from the aorta. There is normal left ventricular wall thickness. LVEF is 30-35%. Conclusion Left ventricular cavity size is normal. Impella device present and well seated in the left ventricle. Impella measures 3.3 cm from the aorta. LVEF is 30-35%. DICTATED BY: CITLALI GOLDBERG MD DATE: 03/14/25 0851 REASON: left severe PAD ORDERING PHYSICIAN: AYLEEN NAVA NP PROCEDURE: ART U LE - US ARTERIAL UNILA LOW EXT DUPL EXAMINATION: DUPLEX ULTRASOUND EXAMINATION OF THE LEFT LOWER EXTREMITY ARTERIES. CLINICAL HISTORY: Severe PAD. COMPARISON: None provided. FINDINGS: Peak systolic velocities within the left lower arteries are as follows: Superficial femoral artery: 43 cm/s at proximal, 59 cm/s at mid, and 46 cm/s at distal segments. Popliteal artery: 37 cm/s at proximal and 38 cm/s at distal segments. Posterior tibial artery: 14 cm/s. Anterior tibial artery: Flow trickle. Dorsalis pedis artery: No flow. The left lower limb arteries demonstrate triphasic to biphasic waveforms in all arteries except the anterior tibial artery which demonstrates monophasic waveform with collateral formation. There is intimal wall thickening in the left lower limb arteries. IMPRESSION: Mild intimal wall thickening in the left lower limb arteries. The left lower limb arteries demonstrate triphasic to biphasic waveforms in all arteries except the anterior tibial artery which demonstrates monophasic waveform. No flow in the dorsalis pedis artery. Recommend CT or MR angiogram. /[place] DICTATED BY: KAT LLOYD Jr., MD DATE: 03/14/25 015 REASON: s/p CABG ORDERING PHYSICIAN: MAX PAYTON MD PROCEDURE: CXR1VW - CHEST 1VW EXAM: CR Chest, 1 View. CLINICAL HISTORY: s/p CABG COMPARISON: 03/12. FINDINGS: An endotracheal tube is present with the tip 3.8 cm from the karl. Enteric tube is poresent coursing below the diapraghm with the distal tip all beyond the field of view. Right transjugular central venous catheter with the tip in the main pulmonary artery. Two left intercostal drainage tubes are in place. Drainage tube with tip in the mediastinum on the left. LUNGS: Bibasilar consolidation, mildly reduced from the prior study. Pulmonary vascular congestion. PLEURAL SPACES: No pneumothorax. Minimal bilateral pleural effusion. MEDIASTINUM: The cardiothoracic ratio cannot be commented upon due to rotation. BONES: No acute osseous abnormality. Sternotomy changes. IMPRESSION: 1. Bibasilar consolidation, improved from prior, with pulmonary vascular congestion. 2. Minimal bilateral pleural effusions. 3. Endotracheal tube tip 3.8 cm from karl. 4. Right transjugular central line terminating in the main pulmonary artery. 5. Two left intercostal drainage tubes and a left mediastinal drainage tube are in place. /[place] DICTATED BY: KAT LLOYD Jr., MD DATE: 03/13/25 1621 ASSESSMENT: Severe 2 vessel CAD -S/P 4v CABG with impella support on 03-08-[address] Barajas Acute on chronic HFmrEF (LVEF: 40-45% by echo done on 02/25/2025, LVEF 30% on 03.14.25) Cardiogenic shock SCAI Stage D with multiorgan dysfunction , not POA - secondary to complex nature of the procedure and preexisting comorbidities . Multiorgan dysfunction including shock Liver , Acute Kidney failure , respiratory failure -post procedure secondary to complex nature of the CABG and preexisting comorbidities . Anemia , Poa Acute blood loss anemia , s/p surgery - expected . Thrombocytopenia-rule out HIT Severe protein calorie malnutrition with muscle atrophy ; BMI 14.2 NOT POA, expected secondary to comorbidities History of Myocardial infarction 2023 Unstable angina s/p Lexiscan Reversible large defect in the anterior, septal lucas. TID 1.19. LVEF 39%. CAD status post stenting of the proximal LAD proximal circumflex and mid circumflex artery as above with documented progression of disease December 2024 managed medically because of concern the patient would not be compliant with dual antiplatelet therapy Remote anterior wall myocardial infarction July 2024 complicated by cardiogenic shock requiring Impella support for PCI with subsequent ischemic leg requiring [id number] amputation Uncontrolled hypertension POA Hyperlipidemia Uncontrolled diabetes mellitus type 2 with hyperglycemia POA Non compliance to medications, POA Hypercoagulable state on Prasugrel POA PLAN: Labs and Diagnostics/ Radiology personally reviewed and interpreted by myself and supervising physician We have reviewed dialysis and external records in detail Continue dialysis schedule We will continue to monitor the patient closely Continue with IV pressors Continue with mechanical ventilation and sedation 1.5 L fluid restriction Continue to monitor H&H Epogen on dialysis days, as needed Continue with frequent monitoring of renal function, anemia, and electrolytes Order CBC, BMP, and electrolytes in the morning May use Dilaudid 0.5 mg IV every 6 hours as needed for severe pain Monitor blood pressure adjust medication doses as needed Maintain normotensive state Strict intake, output, and daily weight should be monitored Please renally adjust medications. Avoid nephrotoxics and nonsteroidal drugs. We will continue to monitor the patient closely We have discussed with the other team physicians in detail about the care plan Total critical care time spent with patient, nursing staff, critical care team over 35 minutes ATTESTATION BY PHYSICIAN I have seen and examined the patient. I reviewed the documentation, medical decision making, and treatment plan as noted by the mid-level provider above. I agree with the findings and plan of care. MAXIM ABARCA MD, [facility] Mar 14, 2025 14:43
--- NOTE | 2025-03-14 16:30 | NUR ---
FAMILY MEETING PRASHANTH PAGE PT'S SON NOTIFIED THAT DR. PROCTOR'S WANTS TO HAVE AFAMILY MEETING TOMORROW AT 0900 TO DISCUSS PLAN AND GOALS OF CARE. PT'S SON VERBALIZED UNDERSTANDING AND STATES HE WILL LET THE REST OF HIS FAMILY KNOW.
--- NOTE | 2025-03-14 16:56 | PN ---
[facility] PROGRESS NOTE Date Patient Seen: Mar 14, 2025 Time of Visit: 16:54 Supervising Physician: Dr. 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 (LVEF: 40-45% by echo done on 02/25/2025) Unstable Angina POA Remote anterior wall myocardial infarction July 2024 complicated by cardiogenic shock requiring Impella support for PCI with subsequent ischemic leg requiring [id number] amputation CAD status post stenting of the proximal LAD proximal circumflex and mid circumflex artery as above with documented progression of disease December 2024 managed medically because of concern the patient would not be compliant with dual antiplatelet therapy Diabetes mellitus type 2 Dyslipidemia Chest pain comorbidities: HX of ACS-STEMI s/p PCI with VIANEY placement (BSS 3.0x20 mm) in the proximal LAD, VIANEY placement (BSS 3.5x16 mm) in the proximal LCx, VIANEY placement (BSS 3.0x12 mm) in the mid LCx, and VIANEY placement (BSS 2.75x24 mm) in the distal LCx done on 07/17/2024 Hx of Intraprocedural VT in July 2024 HX of cardiogenic shock requiring Impella placement in July 2024 HX of Right lower extremity ischemia secondary to Impella placement resulting in RLE limb ischemia s/p right BKA Hx of Ischemic cardiomyopathy Hx of Medication noncompliance Hx of Hypertension ] INTERVAL HISTORY: 03/09/2025: At the time of my evaluation, the patient was lying in bed. She is off sedation RASS score of -2. Patient remains intubated and mechanically vented, SIMV rate of 12, peep 8, Vt 550 and FiO2 50%. Chest tube remains in place, per the staff nurse current output of2 L bloody. On the monitor, the patient was tachycardic, tachypneic and with acceptable blood pressure readings. 5/[address] P 9. Laboratory data was notable for a H&H 7.4/20.6 platelet count of 55. Chemistry panel showed a sodium of 159, potassium of 4.3, chloride of 120, CO2 of 30, BUN 14, creatinine of 1.1 And a GFR of 57. Total bili of 1.3, AST 280, ALT35 and a alk-phos of 23. Chest imaging today showed bilateral infiltrates more pronounced on the right. Currently, the patient is on epi/levo/vaso drip. No other concern. 03/10/2025: At the time of my evaluation, the patient is lying in bed. The patient remains on mechanical ventilator support SIMV mode, FiO2 75%, peep of 5, rate of 18, vt 550. Chest tube pleural and mediastinal remained in place with a total output of 1030 mL. The patient is febrile T-max 103.3. Vital sign parameters shows tachycardia, tachypnea and soft blood pressure trend. Laboratory data showed stable H&H and platelet count showed a drop from 102-72. Chemistry panel showed a elevated sodium of 160, potassium 5.7, chloride is 113, BUN 26, creatinine of 1.9, GFR of 30. Total bilirubin of 8.5, AST 6256, ALT 2577 and a total CK of 2111. The patient remains coagulopathic. PT 21.4, INR 2.18. Chest imaging today showed concern for a large left pleural effusion. Currently, the patient remains on epi, levo, vaso, Lasix and bicarb. She also remains on antibiotic therapy with Zosyn. No other concern. 03/11/2025: At the time of my evaluation, the patient is lying in bed. The patient may remains mechanically vented on SIMV with pressure support of 10, rate 18, FiO2 75, Vt 550 and a PEEP of 8. Vital signs, are unremarkable. L aboratory data today, showed a WBC 6.6, H&H 9.4/27.1 and a platelet count of 56. Chemistry panel showed a sodium of 151, potassium of 5.8, chloride of 108, CO2 of 20, BUN 42,, creatinine of 2.6 and a GFR of 20. Total bili of 9.6, AST 64254, ALT 2651 alk-phos of 89, total CK of 3243 chest x-ray showed bilateral pulmonary vascular congestion and infiltrate. Left pleural effusion has improved after chest tube placement on 03/10/2025. Currently, the patient continues on epi, levo, vaso and Lasix. She is also on IV Zosyn. No other complaint. 03/12/2025: At the time of my evaluation, the patient was lying in bed. She generally remains in the same condition. The patient remains on a mechanical ventilator support SIMV mode. Repeat chest x-ray today showed worsening bilateral pulmonary edema. Chest tube bilateral remained in place. Vital signs today are unremarkable. Impella remains in place P7. Laboratory data showed H&H of 8.7/25.2 and a platelet count of 19, no leukocytosis. Chemistry panel was notable for a sodium of 146, potassium of 5.3, chloride of 104, CO2 of 27, BUN of 55, creatinine of 3.3 and a GFR of 1. Total bili of 11.0, AST of 4866, ALT of 1460. Currently, the patient is on epi, levo and Lasix. Also the patient receiving antibiotic therapy with Zosyn. 03/13/2025: At the time of my evaluation, the patient is lying in bed. She remains intubated and mechanically vented. Currently SIMV respiratory rate 18, FiO2 60%. Vital signs currently unremarkable. Laboratory data showed a drop in H&H 7.3/21.1 and a platelet count of 41. Chemistry panel showed elevated potassium of 5.6, BUN of 57 , creatinine of 3.2 and a GFR of 16. Liver parameters showing a total bili of 13.0, AST 2369, ALT 850 and a alk-phos of 220. Imaging showed a chest x-ray with a again pulmonary vascular congestion and minimal bilateral pleural effusion. Currently, the patient remains on fentanyl, EPI, levo and Lasix. She also remains on antibiotic therapy with Zosyn. No other complaint. 03/14/2025: At the time of my evaluation, the patient is lying in bed. She generally remains in the same condition. The patient continues on ventilator support SIMV 50% FiO2. Laboratory data today showed a interval increase of WBCs the 0.9, H&H 7.6/23.4 and a platelet count of 14. Chemistry panel was notable for a potassium of 5.2, chloride of 98, CO2 of 18, BUN of 54 , creatinine of 3.0. The liver parameters are improving, today bilirubin of 12.6, AST 2241, ALT of 842 and alk-phos of 229. Coagulation panel showed a PT of 17.0, INR of 1.69 and a PTT of 59.2. No new imaging for review today. A 2D echo limited was ordered and showed normal-sized left ventricular cavity, Impella device present and well-seated in the left ventricle and a LVEF of 30-35%. The patient continues on Precedex, she is currently off pressor therapy and remains on antibiotic coverage with Zosyn. No other complaint. REVIEW OF SYSTEMS: unable to perform PHYSICAL EXAM: GENERAL: critically ill intubated HEENT: Sclera non icteric, moist mucosa NECK: Supple, no JVD, trachea midline , impella 5.5 LUNGS: diminished breath sounds bilaterally. No wheezes HEART: Regular rate and rhythm. Normal S1 and S2, without murmurs, chest tube in place ABD: Abdomen soft, nontender. Bowel sounds present EXT: No clubbing cyanosis or edema rt BKA NEURO: Deferred. Vital Signs (last 8hr) Date Time Temp Pulse Resp B/P (MAP) Pulse Ox O2 Delivery O2 Flow Rate FiO2 03/14/25 16:08 50 03/14/25 16:00 99.3 Ventilator 60 03/14/25 16:00 88 Ventilator+ 50 03/14/25 15:45 83 24 116/86 (96) 03/14/25 15:44 82 50 03/14/25 15:30 82 30 122/87 (99) 03/14/25 15:15 78 33 122/88 (99) 03/14/25 15:00 82 33 124/88 (100) 03/14/25 14:45 82 28 118/80 (93) 95 03/14/25 14:30 80 28 118/79 (92) 95 03/14/25 14:15 82 28 113/77 (89) 94 03/14/25 14:00 83 28 111/77 (88) 92 03/14/25 13:45 81 28 110/75 (87) 03/14/25 13:30 79 29 110/76 (87) 03/14/25 13:15 79 28 112/77 (89) 03/14/25 13:00 78 29 113/78 (90) 03/14/25 12:45 77 29 115/80 (92) 91 03/14/25 12:30 76 28 118/81 (93) 91 03/14/25 12:15 79 28 124/85 (98) 91 03/14/25 12:00 88 Ventilator+ 50 03/14/25 12:00 99.7 Ventilator 60 03/14/25 12:00 99.7 89 28 126/85 (99) 91 03/14/25 12:00 50 03/14/25 11:45 80 28 113/78 (90) 91 03/14/25 11:36 81 50 03/14/25 11:30 81 28 115/74 (88) 92 03/14/25 11:15 81 29 113/73 (86) 92 03/14/25 11:00 79 29 113/73 (86) 92 03/14/25 10:45 83 31 117/74 (88) 92 03/14/25 10:30 80 29 116/73 (87) 92 03/14/25 10:15 81 31 113/73 (86) 91 03/14/25 10:00 84 29 112/71 (85) 94 03/14/25 09:45 85 30 109/70 (83) 93 03/14/25 09:34 85 50 03/14/25 09:30 85 31 105/68 (80) 03/14/25 09:15 84 31 110/71 (84) 03/14/25 09:00 84 31 107/69 (82) LABS: Hematology Labs: Test 03/14/25 06:15 Range/Units White Blood Count 12.9 H 4.8-10.8 K/uL Red Blood Count 2.49 L 4.00-5.50 MIL/uL Hemoglobin 7.6 L 12.0-16.0 g/dL Hematocrit 23.4 L 36-48 % Mean Corpuscular Volume 94.0 79-99 fL Mean Corpuscular Hemoglobin 30.5 27.0-33.0 pg Mean Corpuscular Hemoglobin Concent 32.5 32.0-36.0 g/dL Red Cell Distribution Width 17.8 H 11.0-15.5 % Platelet Count 14 L 130-400 K/uL Mean Platelet Volume 7.5-10.5 fL Immature Granulocyte % (Auto) 2.1 H 0-1 % Neutrophils (%) (Auto) 83.9 H 40.0-77.0 % Lymphocytes (%) (Auto) 7.2 L 21.0-51.0 % Monocytes (%) (Auto) 6.6 3.0-13.0 % Eosinophils (%) (Auto) 0.0 0.0-8.0 % Basophils (%) (Auto) 0.2 0.0-5.0 % Neutrophils # (Auto) 10.8 H 1.8-7.7 K/uL Lymphocytes # (Auto) 0.9 L 1.0-4.8 K/uL Monocytes # (Auto) 0.9 0.1-1.0 K/uL Eosinophils # (Auto) 0.00 0.00-0.70 K/uL Basophils # (Auto) 0.03 0.00-0.20 K/uL Absolute Immature Granulocyte (auto 0.27 0-1 K/uL Segmented Neutrophils % 89 H 40-70 % Lymphocytes % (Manual) 6 L 22-44 % Monocytes % (Manual) 4 2-9 % Nucleated Red Blood Cells 7.9 H 0.0-0.19 % Differential Comment MANUAL DIFFERENTIAL Reactive Lymphocytes 1 H 0-0 % White Cell Morphology Comment HYPERSEGMENT NEUT 1+ Platelet Morphology Comment MARKED DECREASE Red Blood Cell Morphology See comments Chemistry Labs: Test 03/14/25 06:15 03/13/25 03:45 03/12/25 18:33 Range/Units Sodium Level 141 136-145 mmol/L Potassium Level 5.2 H 3.5-5.1 mmol/L Chloride Level 98 L 101-111 mmol/L Carbon Dioxide Level 18 L 21-32 mmol/L Blood Urea Nitrogen 54 H 7-18 mg/dL Creatinine 3.0 H 0.5-1.0 mg/dL Glomerular Filtration Rate Calc 17 >90 mL/min Random Glucose 189 H 70-105 mg/dL Total Calcium 8.7 8.5-10.1 mg/dL Phosphorus Level 5.7 H 2.5-4.9 mg/dL Magnesium Level 2.40 1.80-2.40 mg/dL Total Bilirubin 12.6 H 0.2-1.0 mg/dL Aspartate Amino Transf (AST/SGOT) 2241 *H 10-37 U/L Alanine Aminotransferase (ALT/SGPT) 842 *H 12-78 U/L Alkaline Phosphatase 229 H 50-136 U/L Total Protein 5.5 L 6.0-8.3 g/dL Albumin 3.4 L 3.5-5.0 g/dL Lactic Acid Level 7.7 H 0.8-2.5 mmol/L Direct Bilirubin 8.8 *H 0.0-0.3 mg/dL Total Creatine Kinase 4327 *H 21-232 U/L Amylase Level 75 25-115 U/L Lipase 66 16-77 U/L Hemoglobin A1c 5.7 4.0-6.0 % Estimated Average Glucose (eAG) 117 70-126 mg/dL Iron Level 175 H 50-170 mcg/dL Total Iron Binding Capacity 197 L 250-450 mcg/dL Percent Iron Saturation 88.8 H 22-44 % Ferritin 7157 H 15-150 ng/mL Triglycerides Level 145 30-200 mg/dL Cholesterol Level 54 # <200 mg/dL LDL Cholesterol 36 0-99 mg/dL HDL Cholesterol 18 L 35-85 mg/dL Coagulation Labs: Test 03/14/25 11:03 03/13/25 03:45 Range/Units Prothrombin Time 17.0 H 9.6-11.6 SEC Prothromb Time International Ratio 1.69 H 0.85-1.15 Activated Partial Thromboplast Time 59.2 #H 26.3-35.5 SEC Fibrinogen 199 180-350 mg/dL DIAGNOSTICS / RADIOLOGY RESULTS: [ ] PLAN Follow CT surgeon recommendations Follow cardiology recommendations Multimodal pain management Monitoring H&H Monitor chest tube output Chest x-ray in the morning Start SBT's as tolerated Pending 2D echo post cabg POCUS US continue impella support per cardiology follow chest XR Monitor ABGs Transfuse if absolutely necessary to keep hemoglobin above 8 Maintain O2 sats greater than 92% Incentive spirometry once extubated Hemoglobin A1 Glycemic control with goal of 80-180 Referral for cardiac rehabilitation Speech to eval once patient is extubated monitor electrolytes: K Goal of 4 Magnesium goal of 2 Replace accordingly monitor hemodynamic and continue support with pressors 03/09/2025: For now, going to continue current management for the patient. She will remain intubated and will be extubated per the CTS/CABG protocol. Patient will continue on cardiac management per the Cardiology team/CTVS. Because of her severe anemia, she was ordered to receive a unit of whole blood and 2 units of platelet which are pending to be infused. We will continue to monitor the H&H trend. Balloon pump remains in place as well as Cordis and chest tube mediastinal and pleural. We will repeat surveillance labs in morning. We will follow the recommendation of the CTS and we will intervene if necessary. We will continue to provide general supportive care, GI and DVT prophylaxis. Further orders per attending MD and hospital course. 03/10/2025: For now, going to continue current management. The patient will remains intubated and mechanically vented. Because of the appearance of a large left pleural effusion, we are asked to a chest tube for drainage. This will be placed at the bedside. The patient remains with mediastinal and pleural chest tube in place. Impella remains in place, P5. Continue with pressor therapy, diuretic and antibiotic. I am going to repeat surveillance labs in the morning as was as a chest x-ray. Nephrology was consulted for further renal management, we will await their input. I discussed the findings and plan for further managem ent with the staff nurse. No family member present at the bedside. We will monitor the patient's progress and response to management. We will continue to provide general supportive care, GI and DVT prophylaxis. Further orders per attending MD and hospital course. 03/11/2025: For now, going to continue current management for the patient. Patient received a dose of Kayexalate earlier for management of the hyperkalemia, we will repeat level and decide on further need for extra dose of Kayexalate. Per the Cardiothoracic surgeon recommendations were to obtain a hit panel and consult the telecommunications cable jointer for further input on management due to her low platelet count. We will follow their recommendation. The patient will remain on mechanical ventilator support and sedation. We will follow the chest tube output. There was slight improvement of her liver parameters and total CK increase. I discussed the findings and plan for further management with the staff nurse. We will monitor the patient's progress and response to management. We will continue to provide general supportive care, GI and DVT prophylaxis. Further orders per attending MD and hospital course. 03/12/2025: For now, going to continue current management for the patient. We will continue antibiotic therapy as ordered. I am going to request a ammonia level and a repeat chest x-ray. Lokelma 10 mg was administered in attempt of correcting the hyperkalemia. I strongly believe the patient would benefit from hemodialysis to off load fluid. We will follow the public health staff nurse's input. We will also discuss the case with the CTVS. I discussed the findings and plan for further management with the staff nurse. We will monitor the patient's progress and response to management. We will continue to provide general supportive care, GI and DVT prophylaxis. Further orders per attending MD and hospital course. 03/13/2025: For now, we are going to continue current management for the patient. We will continue with mechanical ventilator support and adjust as necessary. Continue pressor therapy as ordered. Impella 5/[address] P7[address] The patient is a new start of hemodialysis with removal of 1 L on 03/13/2025 and is scheduled for hemodialysis today with a goal of 2 L3 hours. We will continue to follow the potassium trend and hope for correction with hemodialysis. The left lower extremity was noted to be mottled today compared to previous days and is cool to palpation. I am going to request a arterial Doppler study to rule out occlusion. Job Training Supervisor of the patient consulted and from his standpoint, findings were not consistent with hit rather consumption and bone marrow suppression. I discussed the findings and plan for further management with the staff nurse. We will monitor the patient's progress and response to management. We will continue to provide general supportive care, GI and DVT prophylaxis. Further orders per attending MD and hospital course. 03/14/2025: For now, we will continue current management for the patient. I do agree with the switch from heparin to argatroban. We will continue to monitor the H&H and platelet count. Hematology saw the patient and recommended dexamethasone 20 mg IV daily. We will continue therapy as ordered and monitor the patient off pressor therapy. We will follow the guidance of the Cardiology team and CTVS. I discussed the findings and plan for further management with the patient. We will monitor the patient's progress and response to management. We will continue to provide general supportive care, GI and DVT prophylaxis. Further orders per attending MD and hospital course. NEURO: Minimize central acting medications as possible. Fall Precautions. Well lighted room through the day and minimize interruptions through the night to prevent acute delirium. PULMONARY: Supplemental 02 as needed Titrate Fio2 to keep Spo2 > or = 90% DuoNebs and CPT as needed IS hourly while awake for pulmonary hygiene Out of bed to chair as tolerated VAP Bundle Ventilator per CV protocol CARDIOVASCULAR: Follow hemodynamics. Titrate vasopressor to keep MAP >65 or systolic blood pressure >95mmHg DRIPS: levophed vasopressin epi Lasix LINES: cvc impella chest tube et tube og tube A-line manjarrez GI & NUTRITION: Continue nutritional support Aspirations precautions Prokinetic agents and laxatives as needed KIDNEYS & ELECTROLYTES: Strict monitoring of intake and output Daily weights Avoid nephrotoxic agents Monitor electrolytes and replace as needed Goal urine output of 30mL/hr or 0.5mL/kg/hr Urine output: [ ] Fluid Balance: [ ] ENDOCRINE: Maintain blood glucose between 100-180 at all times. Insulin sliding scale for blood glucose management INFECTIOUS DISEASE: Trend temperature. Combs-culture if febrile. Micro: [ ] MRSA negative Antibiotics: Zosyn HEMATOLOGY & COAGULATION: Monitor H&H. Keep Hgb > 7 Transfuse 1 unit of PRBC for Hgb < 7 Transfuse 1 pack of platelets of platelets < 20, 000 Watch for any signs and symptoms of bleeding SKIN: Pressure ulcer prevention per facility protocol Rehab: PT/OT Prophylaxis: GI: pepcid DVT: [ tedhose ac per cv ] Code Status: Full Resuscitation Disposition: [ICU ] Other: I personally spent 50 minutes of critical care time in treatment of this patient. This includes patient management, time at bedside, time reviewing tests, labs, appropriate images and studies, documentation, and patient care coordination. This time excludes separately billable procedures. Patient was seen and case discussed with purnima POWERS. Plan of care was discussed and agreed upon. AYLEEN NAVA DIRECTOR OF ACQUISITION MARKETING Mar 14, 2025 16:56
--- NOTE | 2025-03-14 17:29 | PN ---
Cardiology Progress Note Date of Service: 03/14/2025 Attending Needle Punch Machine Operator: Dr. Niall Ennis Primary Needle Punch Machine Operator: Dr. Jefry Carrasco Reason for Consult: Chest pain Problem List: -Chest pain -2V+branch CAD s/p 4V CABG (GOLDSTEIN-LAD, SVG-DIAG, SVG-LPLB, SVG-RCA) done on 03/08/2025 with redo sternotomy, clipping for GOLDSTEIN, and SVG-LAD done on 03/08/2025 -Intraoperative VT s/p ACLS with CPR, defibrillation, and IV amiodarone and IV lidocaine resulting in ROSC -Cardiogenic shock s/p Impella insertion on 03/08/2025 -Respiratory failure, intubated 03/08/2025 -Multiorgan failure -Postoperative acute blood loss anemia s/p PRBC transfusion -Worsening thrombocytopenia s/p platelet transfusion -Acute renal failure, s/p initiation of hemodialysis 03/12/2025 -Shock liver -Vasopressor induced acute limb ischemia (VIALI) -Electrolyte derangement -HFrEF (LVEF: 30-35% by echo done on 03/14/2025) -h/o of ACS-STEMI s/p PCI with VIANEY placement (BSS 3.0x20 mm) in the proximal LAD, VIANEY placement (BSS 3.5x16 mm) in the proximal LCx, VIANEY placement (BSS 3.0x12 mm) in the mid LCx, and VIANEY placement (BSS 2.75x24 mm) in the distal LCx done on 07/17/2024 -h/o Intraprocedural VT in July 2024 -h/o cardiogenic shock requiring Impella placement in July 2024 -Right lower extremity ischemia secondary to Impella placement resulting in RLE limb ischemia s/p right BKA -Ischemic cardiomyopathy -HLP -DM2 -Hypochromic anemia -Medication noncompliance Subjective: This is a 59y/o female who was seen and evaluated at in the ICU today. She remains sedated, intubated, and on mechanical ventilation, so she is unable to verbalize any active complaints. She remains on IV vasopressor support with IV epinephrine and hemodynamic support with an Impella, which was increased today to P8. Vitals/Labs Vital Signs Date Time Temp Pulse Resp B/P (MAP) Pulse Ox O2 Delivery O2 Flow Rate FiO2 03/14/25 16:08 50 03/14/25 16:00 99.3 Ventilator 03/14/25 16:00 88 03/14/25 15:45 83 24 116/86 (96) 03/11/25 19:30 0 General: Sedated, intubated, and on mechanical ventilation. Ill appearing. HEENT: NC/AT. Oral mucosa is moist. Poor dentition. Oral ETT and OGT noted. Neck: No masses or carotid bruits. Right IJ cordis noted. Lungs: SCM. Bilateral air entry. Coarse breath sounds noted throughout. On mechanical ventilation. Cardio: Regular rate. Distant, but normal S1 and S2. No obvious murmurs, gallops, or rubs noted. Midline incision to the chest. Chest tubes noted. Left subclavian Impella noted. Abdomen: Distended, rounded abdomen. Hypoactive bowel sounds x 4 quadrants. Extremities: Left femoral trialysis catheter noted. Right BKA noted. Diffuse edema with ischemic changes noted to the bilateral hands, left foot, and right BKA stump. Unable to palpate distal pulses. Neuro: Unable to obtain. Laboratory Tests 03/13/25 21:16 03/14/25 06:15 Assessment: -Chest pain -2V+branch CAD s/p 4V CABG (GOLDSTEIN-LAD, SVG-DIAG, SVG-LPLB, SVG-RCA) done on 03/08/2025 with redo sternotomy, clipping for GOLDSTEIN, and SVG-LAD done on 03/08/2025 -Intraoperative VT s/p ACLS with CPR, defibrillation, and IV amiodarone and IV lidocaine resulting in ROSC -Cardiogenic shock s/p Impella insertion on 03/08/2025 -Respiratory failure, intubated 03/08/2025 -Multiorgan failure -Postoperative acute blood loss anemia s/p PRBC transfusion -Worsening thrombocytopenia s/p platelet transfusion -Acute renal failure, s/p initiation of hemodialysis 03/12/2025 -Shock liver -Vasopressor induced acute limb ischemia (VIALI) -Electrolyte derangement -HFrEF (LVEF: 30-35% by echo done on 03/14/2025) -h/o of ACS-STEMI s/p PCI with VIANEY placement (BSS 3.0x20 mm) in the proximal LAD, VIANEY placement (BSS 3.5x16 mm) in the proximal LCx, VIANEY placement (BSS 3.0x12 mm) in the mid LCx, and VIANEY placement (BSS 2.75x24 mm) in the distal LCx done on 07/17/2024 -h/o Intraprocedural VT in July 2024 -h/o cardiogenic shock requiring Impella placement in July 2024 -Right lower extremity ischemia secondary to Impella placement resulting in RLE limb ischemia s/p right BKA -Ischemic cardiomyopathy -HLP -DM2 -Hypochromic anemia -Medication noncompliance Plan: 1. 2V+branch CAD s/p 4V CABG (GOLDSTEIN-LAD, SVG-DIAG, SVG-LPLB, SVG-RCA) done on 03/08/2025 with redo sternotomy, clipping for GOLDSTEIN, and SVG-LAD done on 03/08/2025 -Continue aspirin 81 mg daily and IV argatroban. -She is not a candidate for BB therapy due to the need for IV vasopressor support or a candidate for statin therapy due to her shock liver. -Further management per CT surgery 2. Intraoperative VT s/p ACLS with CPR, defibrillation, and IV amiodarone and IV lidocaine resulting in ROSC -12H telemetry: Sinus rhythm, no arrhythmias noted -Not a candidate for BB therapy due to the need for IV vasopressor support -Recommend weaning off of IV vasopressor support as tolerated -Please keep the patient on continuous telemetry monitoring and maintain electrolytes within normal parameters. 3. Cardiogenic shock s/p Impella insertion on 03/08/2025 -Currently on IV vasopressor support with epinephrine -Wean off of Impella support as tolerated. -Further management per CT surgery In light of the patient's current status, goal of care and code status should be discussed with the patient's family due to her increased risk of mortality. This case was discussed with my Supervising Physician, Dr. Niall Ennis, and the above mentioned plan was formulated and agreed upon. -Progress Note written by Mandeep Pacheco, MSN, [employer] SALES ENGINEER, AGACNP-BC MANDEEP PACHECO NP Mar 14, 2025 17:29
[2025-03-14] MEDS: ARTIFICIAL TEARS 3.5 GM OINTMENT OU SCH (19:56)
[2025-03-14 21:15] LABS: IMMATURE GRANULOCYTE ABSOLUTE 0.56 K/uL (0-1); NUCLEATED RED BLOOD CELLS 10.4 % (0.0-0.19); PLATELET COUNT (AUTO) 39 K/uL (130-400); RED BLOOD CELL COUNT(AUTO) 2.31 MIL/uL (4.00-5.50); RED CELL DISTRIBUTION WIDTH 17.6 % (11.0-15.5); WHITE BLOOD COUNT (AUTO) 15.1 K/uL (4.8-10.8)
[2025-03-14 21:32] LABS: CREATININE 3.5 mg/dL (0.5-1.0); GLOMERULAR FILTR. RATE CALC 14.0 mL/min (>90); GLUCOSE,RANDOM 260.0 mg/dL (70-105); SODIUM SERUM 142.0 mmol/L (136-145); UREA NITROGEN, BLOOD 69.0 mg/dL (7-18)
--- NOTE | 2025-03-14 21:56 | NUR ---
reported pts abnormal labs to dr. mendez hgb 7.0 plt 39 - pt vs stable - no active bleeding - new order 1 unit PRBC noted and carried out
[2025-03-14 23:57] LABS: ABG BASE EXCESS -7.3 mmol/L (-2.0-3.0); ABG HCO3 18.1 mmol/L (21.0-28.0); ABG OXYGEN SATURATION 97.9 % (94.0-98.0); ABG PCO2 36 mmHg (32-45); ABG PH 7.322 (7.350-7.450); CARBON MONOXIDE 1.1 % (0.5-1.5); DEVICE COMMENT ALINE JULIARN; PO2, ARTERIAL BG 120.0 mmHg (83.0-108.0); TEMPERATURE, CELSIUS BG 37.0 CELSIUS (35.5-37.0); VENT MODE, BG SIMV PS10 (ROOM AIR)
[2025-03-15] VITALS (104 sets, daily range): BP systolic 99–158; BP diastolic 64–118; PULSE 43–98; RESP 14–26; TEMP 96.8–99.8; O2SAT 80–99
[2025-03-15] MEDS: SODIUM BICARB 50MEQ 50ML VIAL IV ONE (00:24)
[2025-03-15 02:58] LABS: INR 3.68 (0.85-1.15)
--- NOTE | 2025-03-15 07:32 | HMCIMG ---
EXAM: CR Chest, 1 view CLINICAL HISTORY: Intubated. COMPARISON: Chest radiograph from the same date. FINDINGS: The endotracheal tube tip is 4 cm above the karl. The gastric tube tip is below the diaphragm and not completely included in this image. The right transjugular sheath tip overlies the proximal SVC. Status poststernotomy. Drainage tubes overlie the mediastinum, right, and left thorax. A probe overlies the cardiac shadow. Mild cardiomegaly, pulmonary vascular congestion, pulmonary edema, diffuse airspace disease throughout the bilateral lungs, and questionable small pleural effusions bilaterally. No pneumothorax. No acute osseous abnormality. IMPRESSION: Mild cardiomegaly, pulmonary vascular congestion, pulmonary edema, diffuse airspace disease throughout the bilateral lungs, and questionable small pleural effusions bilaterally. No interval changes. /[place]
--- NOTE | 2025-03-15 08:14 | NUR ---
[facility] CASE # [id number] REP NAME: JAZ MORALES
--- NOTE | 2025-03-15 08:41 | PN ---
[facility] CARDIOLOGY PROGRESS NOTE Date Patient Seen: Mar 15, 2025 Time of Visit: 08:41 Interval History: hemodynamically she has remained on 3 pressors with MAP in the 80s, Impella support is at P 7 , she is now oliguric and renal function is worsening. Renal has been consulted. She remains intubated and sedated. Overall prognosis remains guarded. Physical Examination: GENERAL: Intubated, sedated with generalized edema] EYES: [PERRLA, EOMI, conjunctiva and sclera normal.] NECK: [Supple without JVD. There is no tenderness, lymphadenopathy, or masses. No thyromegaly. Normal carotid upstrokes without bruits.] LUNGS: [Ventilated breath sounds bilaterally. With crackles over lower lobes. No wheezes, or rhonchi.] HEART: [Normal rate and rhythm. Normal S1 and S2 without murmurs, gallop or rub.] VASC: [Peripheral pulses palpable and thready over LLE.] ABD: [Bowel sounds normal, soft, nontender, no masses, no organomegaly. No audible bruits.] : [Not examined] LYMPH: [No lymphadenopathy noted.] EXT: [No clubbing, cyanosis or edema. Right BKA with large edematous blistering of her stump] SKIN: [No rashes or lesions noted.] NEURO: [ Gag reflex and DTR intact.] Laboratory: [ ] Hematology Labs: Test 03/14/25 21:00 03/14/25 06:15 Range/Units White Blood Count 15.1 H 4.8-10.8 K/uL Red Blood Count 2.31 L 4.00-5.50 MIL/uL Hemoglobin 7.0 *L 12.0-16.0 g/dL Hematocrit 21.6 L 36-48 % Mean Corpuscular Volume 93.5 79-99 fL Mean Corpuscular Hemoglobin 30.3 27.0-33.0 pg Mean Corpuscular Hemoglobin Concent 32.4 32.0-36.0 g/dL Red Cell Distribution Width 17.6 H 11.0-15.5 % Platelet Count 39 #L 130-400 K/uL Mean Platelet Volume 12.7 H 7.5-10.5 fL Immature Granulocyte % (Auto) 3.7 H 0-1 % Neutrophils (%) (Auto) 83.4 H 40.0-77.0 % Lymphocytes (%) (Auto) 8.1 L 21.0-51.0 % Monocytes (%) (Auto) 4.6 3.0-13.0 % Eosinophils (%) (Auto) 0.0 0.0-8.0 % Basophils (%) (Auto) 0.2 0.0-5.0 % Neutrophils # (Auto) 12.6 H 1.8-7.7 K/uL Lymphocytes # (Auto) 1.2 1.0-4.8 K/uL Monocytes # (Auto) 0.7 0.1-1.0 K/uL Eosinophils # (Auto) 0.00 0.00-0.70 K/uL Basophils # (Auto) 0.03 0.00-0.20 K/uL Absolute Immature Granulocyte (auto 0.56 0-1 K/uL Nucleated Red Blood Cells 10.4 H 0.0-0.19 % White Cell Morphology Comment See comments Segmented Neutrophils % 89 H 40-70 % Lymphocytes % (Manual) 6 L 22-44 % Monocytes % (Manual) 4 2-9 % Differential Comment MANUAL DIFFERENTIAL Reactive Lymphocytes 1 H 0-0 % Platelet Morphology Comment MARKED DECREASE Red Blood Cell Morphology See comments Chemistry Labs: Test 03/14/25 21:00 03/14/25 06:15 Range/Units Sodium Level 142 136-145 mmol/L Potassium Level 5.5 H 3.5-5.1 mmol/L Chloride Level 98 L 101-111 mmol/L Carbon Dioxide Level 19 L 21-32 mmol/L Blood Urea Nitrogen 69 H 7-18 mg/dL Creatinine 3.5 H 0.5-1.0 mg/dL Glomerular Filtration Rate Calc 14 >90 mL/min Random Glucose 260 H 70-105 mg/dL Total Calcium 8.3 L 8.5-10.1 mg/dL Phosphorus Level 5.7 H 2.5-4.9 mg/dL Magnesium Level 2.40 1.80-2.40 mg/dL Total Bilirubin 12.6 H 0.2-1.0 mg/dL Aspartate Amino Transf (AST/SGOT) 2241 *H 10-37 U/L Alanine Aminotransferase (ALT/SGPT) 842 *H 12-78 U/L Alkaline Phosphatase 229 H 50-136 U/L Total Protein 5.5 L 6.0-8.3 g/dL Albumin 3.4 L 3.5-5.0 g/dL Coagulation Labs: Test 03/15/25 02:08 Range/Units Prothrombin Time 34.3 #H 9.6-11.6 SEC Prothromb Time International Ratio 3.68 *H 0.85-1.15 Activated Partial Thromboplast Time 127.2 #*H 26.3-35.5 SEC Diagnostics / Radiology: [Copy/Paste Echos/Imaging Report here] Impression and Plan: 1. Unstable Angina s/p 4vCABG on 03/08/2025 2. Remote anterior wall myocardial infarction July 2024 complicated by cardiogenic shock requiring Impella support for PCI with subsequent ischemic leg requiring [id number] amputation 3. CAD status post stenting of the proximal LAD proximal circumflex and mid ci rcumflex artery 4. Diabetes mellitus type 2 5. Dyslipidemia 6. Hypertension 7. Cardiogenic Shock 8. Anemia] # Severe 2v CAD: The patient presented with chest pain ACS has been ruled out. Lexiscan stress test revealed anterior ischemia 2D echocardiogram revealed a hypokinetic anteroseptal and anterolateral wall. LVEF 40-45% (unchanged from prior July 2024) Coronary angiogram on 03/01/2025 revealed severe two-vessel CAD. CV surgery was consulted and pt is s/p 4v CABG (03-08-25) Following the procedure patient became hypotensive while in the OR, and pt was found to have a nonfunctional GOLDSTEIN , Impella was inserted for MCS and SVG to LAD was placed Current grafts ( SVG-LAD , SVG -Diag, SVG-LPLB, and SVG-RCA) Cardiogenic shock requiring 3 pressors on Impella support at P7 Transfuse PRBC to a HGb>7. Hb 9.4 hr. 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 Hematology has been consulted. CXR with b/l pulmonary edema. Recommend to continue IV lasix gtt at 5mg/hr Strict I/Os and daily weights. Keep on telemetry and monitor/replace lytes as needed. Defer BB at this time Continue Asa 81mg qd. Hold statins , due to LFT elevation Rest of care by CV surgery # Cardiogenic shock: S/p 4vCABG complicated by a nonfucntional GOLDSTEIN. INTERMACS 2 s/p ( SVG-LAD , SVG -Diag, SVG-LPLB, and SVG-RCA) on 03/08/2025 S/p PRBC and cryo transfusion. Impella support at p6 Monitor H&H and access site. Keep on telemetry and monitor/replace lytes as needed. Continue IV lasix at 5mg/hr with strict I/Os and daily weights. Goal net negative 1-2L/day Chest tube output 500 ml overnight TTE preop LVEF 40-45% with anteroseptal hypokiensis. 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 . Thank you for this consult , cardiology will continue to follow along ,post operatively. Dr Ennis has requested a family meeting today at 9 am MD JESSY Arora DANIELLE M MD Mar 15, 2025 08:41
--- NOTE | 2025-03-15 09:09 | PN ---
DIALYSIS NOTE SUBJECTIVE: The patient is seen and evaluated on hemodialysis. Prescription noted. OBJECTIVE: VITAL SIGNS: Blood pressure is 139/80. CARDIOVASCULAR: Regular. LUNGS: Course. IMPRESSION: Acute renal failure PLAN: The patient will continue with maximum ultrafiltration as blood pressure allows. Workup is ongoing per Cardiovascular Surgery. TID: [id number] RECEIPT: [id number]
[2025-03-15 09:41] LABS: IMMATURE GRANULOCYTE ABSOLUTE 0.45 K/uL (0-1); NUCLEATED RED BLOOD CELLS 13.6 % (0.0-0.19); PLATELET COUNT (AUTO) 28 K/uL (130-400); RED BLOOD CELL COUNT(AUTO) 3.20 MIL/uL (4.00-5.50); RED CELL DISTRIBUTION WIDTH 16.0 % (11.0-15.5); WHITE BLOOD COUNT (AUTO) 15.7 K/uL (4.8-10.8)
[2025-03-15 10:06] LABS: CREATININE 3.9 mg/dL (0.5-1.0); GLOMERULAR FILTR. RATE CALC 13.0 mL/min (>90); GLUCOSE,RANDOM 324.0 mg/dL (70-105); SODIUM SERUM 143.0 mmol/L (136-145); TOTAL PROTEIN, SERUM 5.6 g/dL (6.0-8.3)
--- NOTE | 2025-03-15 10:10 | NUR ---
FAMILY SW spoke to son Raymond [phone]. Pt is to Raymond [phone] and they have 4 kids. # of pt's children are available and here at hospital. Per son, no MPOA that he is aware of. Son states is able to make decisions for himself and , but son feels isn't really wanting to. Educated on Surrogate Decision Maker. Son states is available by phone and can be present if needed. Milly updated nurse Raheem of above
[2025-03-15 10:13] LABS: ASPARTATE AMINOTRANSFERASE 1987.0 U/L (10-37); UREA NITROGEN, BLOOD 85.0 mg/dL (7-18)
--- NOTE | 2025-03-15 10:14 | PN ---
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 Onset started this morning at 2:00 a.m. patient was awaken with chest pain. Reports she has been having chest pain for a week. Location midsternal does not radiate,location midsternal stated the pain on arrival was 10/10 on pain scale. aggravated none: alleviating factors: none. Patient denies palpitation, dizziness, shortness for breath. 12 lead EKG on arrival showed heart rate [address] depression in the lateral Leads. As per ED physician changes in V5 and V6 were not seen in December 2024. Presence of LVH noted anterior STT wave changes were also. ER initiated heparin drip. Was given Full dose Aspirin and Morphine 2 mg IV x1. Troponin 1st set was negative. 02/25/25 patient was seen earlier patient reports she had chest pain overnight 3:00 a.m. patient was given nitroglycerin: continue on Heparin drip; Echo pending no chest pain at this time. she is fully alert oriented x3. 02/26/25 2D echocardiogram revealed a hypokinetic anteroseptal and anterolateral wall. LVEF 40-45%, the patient denies any cardiac symptoms or chest pain. Dr Osorio recommendations: lexiscan in am medical management for now ASA 81 mg daily , Prasugrel 10 mg daily ,Atorvastatin 40 mg daily, Imdur 30 mg daily changed Toprol XL to 25 mg daily patient is fully awake alert oriented x3. out of bed to chair with meals. Denied chest pain palpitation dyspnea. 02/27/25 patient is seen and examined patient underwent Lexiscan pending results. We will continue to monitor patient closely. She is asleep and waking per verbal stimuli primary nurse reports she was having GI problems post Lexiscan. 02/28/25 s/p Lexiscan Reversible large defect in the anterior, septal lucas. TID 1.19. LVEF 39%. Dr Osorio scheduled the patient for Left Heart cath tomorrow. The patient denies chest pain palpitation dyspnea. 03/01/25 patient was evaluated this continues without chest pain or palpitations patient had a Lexiscan stress test is PCI this after the. Patient NPO after breakfast. 03/02 patient was seen by nurse practitioner and physician during rounding in room 429. Patient is s/p left heart catheterization 03/01/[address] Jefry osorio and at this moment he is recommending cardiovascular surgeon for possible CABG evaluation. Once patient will be medically stable we will consult [facility] for evaluation. Continue one-to-one sitter for now. Continue to monit or patient in the meantime. A.m. labs 03/03 patient was seen by nurse practitioner physician during rounding. Patient was seen by cardiovascular surgeon and is pending CABG as per note at the end of this week. As per RN patient's blood pressure has been on lower side. We will order midodrine 10 mg p.r.n. t.i.d. for systolic less than 100. As per supervisor uranium processing Dr. Jefry osorio who was rounding okay with the above-stated medicine. We will continue to monitor patient in the meantime. A.m. labs. 03/04 patient was seen by nurse practitioner and physician during rounding. Patient was evaluated by the cardiovascular surgeon and he is came to perform CABG once the patient will be off Effient for 5 to 7 days. Last dose that was administered to the patient of Effient 10 mg was given on 03/01/2025 at 12:16 p.m. we will continue to monitor patient in the meantime. A.m. labs 03/05 patient was seen by nurse practitioner and physician during rounding in room 429. Patient is pending CABG once 5 to 7 days of Effient on hold we will be completed. WBC 7.3. Electrolyte replaced per protocol. Patient denies any shortness of breath, chest pain, nausea, vomiting or any other discomfort at this moment. We will continue to monitor patient in the meantime. A.m. labs 03/06/2025 - patient is seen in room 429, patient had an episode of intermittent chest pain on exertion when she went to the washroom. Chest pain relieved with sublingual nitro, troponin and EKG were ordered which were normal. Ordered paper colorer cortisol, we will follow up with the lab. Patient to be scheduled for CABG. Heart rate currently on the lower side around 50s - 60s. Patient is asymptomatic otherwise, we will follow the patient closely. 03/07 patient was seen by nurse practitioner physician during rounding in room 429. Patient is pending CABG by cardiovascular surgeon possibly tomorrow 03/08/2025. During evaluation patient denies any shortness of breath, chest pain, nausea, vomiting or any other discomfort. Patient will receive a dose of potassium. We will continue to monitor patient in the meantime. A.m. labs 03/08 patient was seen by nurse practitioner and physician during rounding in room 213. Patient is s/p CABG. No family members at the bedside at this moment. We will continue to monitor patient in the meantime. A.m. labs 03/09 was seen by nurse practitioner and physician during rounding in room 213. Patient is s/p CABG day 1. Due to hypotension and cardiogenic shock Impella was placed. Chest tube output within 24 hours 2 L. currently patient is on three pressor support requiring mechanical ventilation support. Peak 55, peep eight 50% O2. Urine output 850 cc. No family members at the bedside. We will continue CV surgery recommendation We will continue to monitor patient in the meantime. A.m. labs 03/10 patient was seen by nurse practitioner and physician during rounding in room 213. Patient continues to be intubated. Chest tube is draining about 10 to 20 mL/hour. Urine output about 5 to 10 mL/hour. Patient was placed on Lasix drip 10 milligrams/hour. Nephrology consulted for ARIADNE. Patient continues to be on epi, levo and vasopressor. Patient also experience a temperature of 103 last night blood culture were ordered patient was placed on Zosyn for now. We will continue to monitor patient in the meantime. A.m. 03/11 patient was seen by nurse practitioner physician during rounding in room 213. Patient continues to be intubated. Rate 18 Peak 60 tidal volume 580 peep eight 0 2% at 75%. Total output from the chest tube on the right within 24 hours was 550. There is a new left chest tube that was put in yesterday 03/10/2025 and total output as of now it is 820. Urine outpu 800t 150 bypass 24 hours. Patient continues to be on Lasix drip 10 milligrams/hour. Continue epi, levo, vasopressor and antibiotics [place]osyn. [place] 90641 ALT 2651 CK 3243. We will continue to monitor patient in the meantime. A.m. labs 03/12 patient was seen by SECURITY ALARM INSTALLER and physician. Patient is still intubated. Urine output less than 5 mL per hour. 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 Platelets 23. Patient continues to be on Lasix 10 milligrams/hour. Continue epi, levo. Patient was weaned off of vasopressor. Left chest tube drain about 30 mL in the last 24 hours. Right pleural chest drain about 500 mL in the past 24 hours. Patient is pending JOSIE and chest x-ray today. No family members at the bedside. Continue Zosyn. WBC 7.9. Bilirubin 11 AST 5742 ALT 1752 CK 4964. Final urine culture negative. Blood culture no growth in last 24 hours. Con tinue to monitor patient. A.m. labs 03/13 Patient is seen at the bedside. She remains on mechanical ventilation. Impella in place with flow rate of 4.3-4.5 liter/minute. Sedated currently on Precedex 0.4 mcg/kg per hour. Mediastinal Chest tube drainage of 110 mL noted today. Urine output 115 mL. Her left lower extremity appears Pale and mottled, cold to touch and has an absent dorsalis pedis pulse. We will order an arterial ultrasound to assess the blood flow and she is started on heparin protocol by CTS consult. Fluid collection is noted around rt BKA site. Wound care consult recommended no further interventions. Hemoglobin 7.3 on IV Venofer as per Hematology consult, platelets 90239 post 2 unit platelet transfusion, PT 14.5, INR 1.42, BUN 52 , creatinine 3, potassium 5.3, direct bilirubin 8.8, AST improved from to 9179-4376, ALT improved from 907-850, TCK improved from 4964 to 4327, alkaline phosphatase 226. 1 L of fluid is removed during dialysis session yesterday. She is due for another dialysis session today. 03.14.25: Patient remains on mechanical ventilation: SIMV-TV 550 ml/RR 18 breaths/min, PEEP 8cm H2O,FiO2 50%. . Impella in place on left upper arm - set to P8 . Patient is sedated with Precedex . Mediastinal chest tube drained 370 ml in last 24 hours.Urine output 10 ml - patient is receiving hemodialysis - 3rd session consecutively today . Patient's Rt BKA stump, left foot , rt and left hands shows erythema with blebs and mottling on the skin suggestive of worsening ischemia and is cold to touch .US doppler LLE shows peripheral arterial disease . [place] [address]- Heparin is discontinued and she is started on Argatroban by Dr Najera . Liver function parameters show minimal improvement . Epinephrine and Vasopressin is d/c'd and she continues on Levophed. Foleys catheter and Speonk Shantelle catheter has been discontinued . Picc line is to be placed as per Dr Najera . Overall , patient is critical and her prognosis is guarded . I talked to her son and daughter at around 6 pm today and updated them of the patients clinical condition in detail. All questions were answered and they confirms understanding that the patient's condition is critical and prognosis is guarded. 03/15 patient remains admitted to the ICU, she remains intubated, on mechanical ventilation, on epinephrine drip. Upon physical examination, patient's Rt BKA stump, left foot , rt and left hands shows erythema with blebs and mottling on the skin suggestive of worsening ischemia and is cold to touch. US doppler LLE shows peripheral arterial disease. Blood pressure 120/87, heart rate of 55, saturating 100% on mechanical ventilation, FiO2 50%. CBC shows hemoglobin 9.9, hematocrit 29.1, WBC 15.7, platelet count of 28. CMP with sodium 142, potassium 5.5, BUN of 69, creatinine 3.5, liver enzymes elevated with an AST of 2241, ALT of 842, alkaline phosphatase of 229, total CK 4 x 2327. ABG with pH 7.35, pCO2 of 40, PO2 45, bicarb of 22. Chest x-ray shows bilateral airspace disease with trace bilateral pleural e ffusion, more prominent on the right, change, mild stable pulmonary vascular congestion, ET tube tip 4.2 cm from karl, multiple to sell catheters in place, unchanged. Overall condition of the patient remains unchanged, her prognosis is poor and guarded. Per discussion with the RN, Cardiothoracic surgeon to meet with the family to discuss goals of care today. REVIEW OF SYSTEMS: unable to perform PHYSICAL EXAM: GENERAL: critically ill, intubated and mechanically ventilated HEENT: eyes remained partially open, Sclera dry , icteric, OG tube in place NECK: Supple, no JVD, trachea midline , impella with flow rate of 4-4.5 LUNGS: Sternum bandaged , diminished breath sounds bilaterally. No wheezes, chest tubes in place HEART: Regular rate and rhythm. Normal S1 and S2, without murmurs, chest tube in place ABD: Abdomen soft, nontender. Bowel sounds present EXT: rt BKA, Patient's Rt BKA stump, left foot , rt and left hands shows erythema with blisters and mottling on the skin and is cold to touch NEURO: Deferred. Vital Signs (last 8hr) Date Time Temp Pulse Resp B/P (MAP) Pulse Ox O2 Delivery O2 Flow Rate FiO2 03/15/25 09:30 55 17 120/87 (98) 100 50 03/15/25 09:15 67 22 139/96 (110) 93 50 03/15/25 09:12 73 50 03/15/25 09:00 71 22 142/109 (120) 89 50 03/15/25 08:45 76 25 143/109 (120) 87 50 03/15/25 08:30 74 18 140/108 (119) 84 50 03/15/25 08:15 71 19 139/110 (120) 80 50 03/15/25 08:00 80 Ventilator+ 50 03/15/25 08:00 73 17 138/108 (118) 80 03/15/25 08:00 50 03/15/25 07:45 74 18 139/109 (119) 80 03/15/25 07:30 75 21 139/109 (119) 79 03/15/25 07:18 99.3 Ventilator 50 03/15/25 07:15 74 18 136/108 (117) 78 03/15/25 07:00 74 18 135/107 (116) 79 50 03/15/25 06:45 75 23 135/106 (116) 81 50 03/15/25 06:05 85 50 03/15/25 04:15 81 17 134/105 (115) 98 03/15/25 04:00 98.6 Ventilator 50 03/15/25 04:00 80 17 130/106 (114) 86 03/15/25 04:00 50 03/15/25 03:56 76 50 03/15/25 03:48 90 Ventilator+ 50 03/15/25 03:45 79 19 132/107 (115) 87 03/15/25 03:30 80 17 132/107 (115) 92 03/15/25 03:15 77 18 129/105 (113) 84 03/15/25 03:00 77 21 131/107 (115) 87 03/15/25 02:45 76 19 128/106 (113) 82 03/15/25 02:30 76 18 128/105 (113) 83 03/15/25 02:15 77 18 128/105 (113) 82 LABS: Laboratory: Test 03/15/25 09:33 03/15/25 09:30 03/15/25 02:08 03/14/25 21:00 Range/Units Blood Gas Specimen Type Arterial Arterial Blood pH 7.359 7.350-7.450 Arterial Blood Partial Pressure CO2 40 32-45 mmHg Arterial Blood Partial Pressure O2 < 45.0 *L 83.0-108.0 mmHg Arterial Blood HCO3 22.0 21.0-28.0 mmol/L Arterial Blood Oxygen Saturation 48.8 L 94.0-98.0 % Arterial Blood Base Excess -3.2 L -2.0-3.0 mmol/L Hemoglobin (Blood Gas) 10.8 L 12.0-16.0 g/dL Sodium (Blood Gas) 140 136-145 MMOL/L Bedside Potassium (Blood Gas) 5.5 H 3.4-4.5 MMOL/L Bedside Chloride (Blood Gas) 95 L 98-107 MMOL/L Bedside Glucose (Blood Gas) 338 H 65-95 MG/DL Bedside Ionized Calcium (Blood Gas) 1.05 L 1.15-1.33 MMOL/L Bedside Lactic Acid (Blood Gas) 7.88 *H 0.36-0.75 MMOL/L Blood Gas Temperature 37.0 35.5-37.0 CELSIUS Blood Gas Respiration Rate 18.0 min. Blood Gas Vent Mode SIMV ROOM AIR FiO2 50.0 % Blood Gas Tidal Volume 550 ml Blood Gas PEEP 8 cm H2O Blood Gas Specimen Comment CORY LOPEZ White Blood Count 15.7 H 4.8-10.8 K/uL Red Blood Count 3.20 #L 4.00-5.50 MIL/uL Hemoglobin 9.9 #L 12.0-16.0 g/dL Hematocrit 29.1 #L 36-48 % Mean Corpuscular Volume 90.9 79-99 fL Mean Corpuscular Hemoglobin 30.9 27.0-33.0 pg Mean Corpuscular Hemoglobin Concent 34.0 32.0-36.0 g/dL Red Cell Distribution Width 16.0 H 11.0-15.5 % Platelet Count 28 #L 130-400 K/uL Mean Platelet Volume 7.5-10.5 fL Immature Granulocyte % (Auto) 2.9 H 0-1 % Neutrophils (%) (Auto) 85.2 H 40.0-77.0 % Lymphocytes (%) (Auto) 6.7 L 21.0-51.0 % Monocytes (%) (Auto) 4.8 3.0-13.0 % Eosinophils (%) (Auto) 0.0 0.0-8.0 % Basophils (%) (Auto) 0.4 0.0-5.0 % Neutrophils # (Auto) 13.4 H 1.8-7.7 K/uL Lymphocytes # (Auto) 1.1 1.0-4.8 K/uL Monocytes # (Auto) 0.8 0.1-1.0 K/uL Eosinophils # (Auto) 0.00 0.00-0.70 K/uL Basophils # (Auto) 0.06 0.00-0.20 K/uL Absolute Immature Granulocyte (auto 0.45 0-1 K/uL Nucleated Red Blood Cells 13.6 H 0.0-0.19 % Prothrombin Time 34.3 #H 9.6-11.6 SEC Prothromb Time International Ratio 3.68 *H 0.85-1.15 Activated Partial Thromboplast Time 127.2 #*H 26.3-35.5 SEC Sodium Level 142 136-145 mmol/L Potassium Level 5.5 H 3.5-5.1 mmol/L Chloride Level 98 L 101-111 mmol/L Carbon Dioxide Level 19 L 21-32 mmol/L Blood Urea Nitrogen 69 H 7-18 mg/dL Creatinine 3.5 H 0.5-1.0 mg/dL Glomerular Filtration Rate Calc 14 >90 mL/min Random Glucose 260 H 70-105 mg/dL Total Calcium 8.3 L 8.5-10.1 mg/dL Test 03/14/25 06:15 Range/Units Segmented Neutrophils % 89 H 40-70 % Lymphocytes % (Manual) 6 L 22-44 % Monocytes % (Manual) 4 2-9 % Reactive Lymphocytes 1 H 0-0 % Phosphorus Level 5.7 H 2.5-4.9 mg/dL Magnesium Level 2.40 1.80-2.40 mg/dL Total Bilirubin 12.6 H 0.2-1.0 mg/dL Aspartate Amino Transf (AST/SGOT) 2241 *H 10-37 U/L Alanine Aminotransferase (ALT/SGPT) 842 *H 12-78 U/L Alkaline Phosphatase 229 H 50-136 U/L Total Protein 5.5 L 6.0-8.3 g/dL Albumin 3.4 L 3.5-5.0 g/dL Current Medications Medications (Trade) Dose Ordered Sig/Toby Route PRN Reason Start Time Stop Time Status Last Admin Dose Admin Acetaminophen (TYLenol 325MG TAB) 650 mg Q4H PRN PO TEMPERATURE GREATER THAN 101.5 02/24/25 07:00 03/26/25 06:59 03/01/25 19:06 650 MG Acetaminophen (TYLenol 325MG TAB) 650 mg Q4H PRN PO MILD PAIN (1-3) 03/02/25 02:30 04/01/25 02:29 03/04/25 10:39 650 MG Acetaminophen (TYLenol 325MG TAB) 650 mg Q4H PRN PO Temp >38.3C(AFTER EXTUBATION) 03/08/25 09:30 03/08/25 09:29 DC Acetaminophen (TYLenol 325MG TAB) 650 mg Q6H PRN PO MILD PAIN (1-3) 03/08/25 09:30 03/08/25 09:36 DC Acetaminophen (TYLenol 650MG SUPPOSITORY) 650 mg Q4H PRN RC Temp >38.3C WHILE INTUBATED 03/08/25 09:30 04/07/25 09:29 Acetaminophen (acetaMINOPHEN) 1,000 mg Q6H6 IV 03/08/25 13:00 03/09/25 12:59 DC 03/09/25 12:00 1,000 MG Albumin Human 50 ml @ 999 mls/hr Q6H IV 03/08/25 17:00 03/09/25 11:02 DC 03/09/25 10:10 999 MLS/HR Albumin Human 250 ml @ 0 mls/hr AD IV 03/08/25 19:00 03/10/25 06:44 DC 03/09/25 08:36 1,200 MLS/HR Albumin Human 250 ml @ 0 mls/hr AD PRN IV IF HEMODYNAMICALLY UNSTABLE 03/08/25 09:30 03/08/25 18:48 DC 03/08/25 18:48 1,200 MLS/HR Albumin Human 500 ml @ 0 mls/hr AD IV 03/08/25 20:00 03/09/25 15:49 DC 03/09/25 11:35 1,200 MLS/HR Albumin Human 500 ml @ 0 mls/hr AD IV 03/09/25 22:00 03/14/25 21:59 DC 03/10/25 18:06 999 MLS/HR Albumin Human (Albumin (Human) 25%) 100 ml NOW IV 03/13/25 13:30 03/14/25 13:29 DC Albumin Human (Albumin (Human) 25%) 100 ml ONCE IV 03/15/25 10:00 03/16/25 09:59 Aminocaproic Acid 43009 mg/Sodium Chloride 310 ml @ 25 mls/hr AD IV 03/08/25 09:30 03/08/25 09:31 DC Aminocaproic Acid 50178 mg/Sodium Chloride 480 ml @ 0 mls/hr AD PRN IV BLEEDING CONTROL 03/08/25 07:00 04/07/25 06:59 Amiodarone HCl 360 mg/Dextrose 207.2 ml @ 33.3 mls/hr AD IV 03/08/25 13:00 03/08/25 12:52 DC Amiodarone HCl 360 mg/Dextrose 207.2 ml @ 33.3 mls/hr AD IV 03/08/25 13:00 03/08/25 12:52 DC Amiodarone HCl 540 mg/Dextrose 310.8 ml @ 16.7 mls/hr [id number] STAT IV 03/08/25 12:45 03/08/25 20:15 DC 03/08/25 16:44 16.7 MLS/HR Argatroban 250 mg/ Sodium Chloride 250 ml @ 0 mls/hr PROTOCOL IV 03/14/25 13:00 04/13/25 12:59 03/14/25 17:33 1.26 MLS/HR Aspirin (Aspirin 81mg Chew Tab) 81 mg DAILY PO 02/25/25 09:00 03/01/25 12:33 DC 02/28/25 09:18 81 MG Aspirin (Aspirin 81mg Chew Tab) 81 mg DAILY PO 03/02/25 09:00 04/01/25 08:59 03/15/25 08:18 81 MG Aspirin (Aspirin 81mg Ec Tab) 81 mg DAILY PO 02/24/25 09:00 02/24/25 08:52 DC Atorvastatin Calcium (LIPItor 20MG) 20 mg HS PO 02/24/25 21:00 02/24/25 08:52 DC Atorvastatin Calcium (LIPItor 40MG) 40 mg HS PO 02/24/25 21:00 03/12/25 08:25 DC 03/11/25 20:11 40 MG Calcium Gluconate 1 gm/Sodium Chloride 60 ml @ 200 mls/hr AD PRN IV HYPOCALCEMIA 03/08/25 09:30 04/07/25 09:29 03/15/25 00:55 200 MLS/HR Cefazolin Sodium (Ancef) 2 gm ONCALL IVP 03/07/25 22:00 03/09/25 21:59 DC Cefazolin Sodium (Ancef) 2 gm Q8H IVPB 03/08/25 14:30 03/09/25 06:31 DC 03/09/25 06:06 2 GM Citalopram Hydrobromide (CeleXA 20MG TAB) 10 mg DAILY PO 02/25/25 09:00 03/27/25 08:59 03/10/25 08:16 10 MG Dexamethasone Sodium Phosphate (dexaMETHasone 4MG/ML 1ML VIAL) 20 mg Q24H IV 03/12/25 15:30 03/12/25 15:18 DC Dexamethasone Sodium Phosphate 20 mg/Sodium Chloride 50 ml @ 100 mls/hr Q24H IV 03/12/25 15:30 04/11/25 15:29 03/14/25 14:51 100 MLS/HR Dexmedetomidine HCl 400 mcg/ Sodium Chloride 100 ml @ 0 mls/hr AD PRN IV TITRATE 03/13/25 08:00 03/13/25 07:42 DC Dexmedetomidine/ Sodium Chloride (PRECEdex 400MCG/ 100ML-NS) 400 mcg PROTOCOL IV 03/08/25 09:30 03/09/25 09:29 DC Dexmedetomidine/ Sodium Chloride (PRECEdex 400MCG/ 100ML-NS) 400 mcg PROTOCOL IV 03/13/25 08:00 04/12/25 07:59 03/15/25 09:49 400 MCG Dextrose 1,000 ml @ 0 mls/hr Q0M PRN IV OTHER [SEE ORDER COMMENTS] 03/12/25 06:00 04/09/25 23:29 Dextrose 1,000 ml @ 50 mls/hr Q20H IV 03/10/25 23:30 03/12/25 05:51 DC 03/11/25 19:15 50 MLS/HR Dextrose (D50w) 50 ml AD PRN IV HYPOGLYCEMIA PROTOCOL 03/01/25 12:30 03/09/25 15:51 DC Dextrose (D50w) 50 ml AD PRN IV HYPOGLYCEMIA PROTOCOL 03/08/25 09:30 04/07/25 09:29 03/10/25 00:44 50 ML Docusate Sodium (COLace 100MG CAP) 100 mg BID PO 03/03/25 21:00 03/03/25 16:22 DC Docusate Sodium (COLace 100MG CAP) 100 mg BID PO 03/08/25 21:00 04/07/25 20:59 03/14/25 19:55 100 MG Epinephrine HCl 10 mg/Sodium Chloride 250 ml @ 0 mls/hr AD PRN IV TITRATE 03/08/25 07:00 04/07/25 06:59 03/14/25 07:02 8.5 MLS/HR Epinephrine HCl 10 mg/Sodium Chloride 250 ml @ 0 mls/hr AD PRN IV POST-OP CARDIOVASCULAR ORDERS 03/08/25 09:30 03/08/25 09:30 DC Famotidine (Pepcid 20mg Vial) 20 mg BID IV 03/08/25 21:00 03/10/25 20:59 DC 03/10/25 08:16 20 MG Famotidine (Pepcid 20mg Tab) 20 mg BID PO 02/24/25 09:00 03/09/25 10:34 DC 03/07/25 20:29 20 MG Fentanyl Citrate 100 ml @ 0 mls/hr PROTOCOL IV 03/13/25 02:30 03/20/25 02:29 03/13/25 02:29 0 MLS/HR Fentanyl Citrate 1000 mcg/Sodium Chloride 120 ml @ 0 mls/hr AD PRN IV TITRATE 03/13/25 02:30 03/13/25 02:16 DC Folic Acid (FOLic ACID 1 MG TABLET) 1 mg DAILY PO 03/12/25 15:30 04/11/25 15:29 03/15/25 08:17 1 MG Furosemide (LASix 20MG TAB) 20 mg Q12H PO 03/10/25 09:00 03/10/25 16:28 DC Furosemide (LASix 20MG VIAL) 20 mg Q12H IV 03/09/25 09:00 03/10/25 08:59 DC 03/10/25 01:15 20 MG Furosemide 100 mg/ Sodium Chloride 100 ml @ 0 mls/hr PROTOCOL IV 03/10/25 08:00 03/12/25 16:41 DC 03/12/25 05:11 10 MLS/HR Glucagon (Glucagon 1mg Kit) 1 mg AD PRN IM HYPOGLYCEMIA PROTOCOL 03/01/25 12:30 03/09/25 15:51 DC Glucagon (Glucagon 1mg Kit) 1 mg AD PRN IM HYPOGLYCEMIA PROTOCOL 03/08/25 09:30 04/07/25 09:29 Heparin Sodium/ Dextrose 250 ml @ 0 mls/hr PROTOCOL PRN IV PROTOCOL 02/24/25 06:00 02/25/25 05:59 DC 02/25/25 01:09 7.36 MLS/HR Heparin Sodium/ Dextrose 250 ml @ 0 mls/hr Q6H IV 03/13/25 10:30 03/14/25 08:09 DC 03/13/25 10:42 7.14 MLS/HR Insulin Human Regular (humuLIN R 100 UNIT/ML 3ML) INSULIN SLIDING SCAL... ACHS SQ 02/24/25 11:30 03/08/25 09:15 DC 03/06/25 20:24 6 UNIT Insulin Human Regular 100 unit/ Sodium Chloride 100 ml @ 0 mls/hr AD IV 03/08/25 09:30 03/10/25 09:29 DC 03/09/25 16:20 2 MLS/HR Iron Sucrose 300 mg/Sodium Chloride 250 ml @ 83 mls/hr HS IV 03/12/25 21:00 03/15/25 00:01 DC 03/14/25 19:55 83 MLS/HR Iron Sucrose 300 mg/Sodium Chloride 250 ml @ 83 mls/hr Q24H IV 03/12/25 15:30 03/14/25 18:31 Cancel Isosorbide Mononitrate (Imdur 30mg Sr) 30 mg DAILY PO 02/24/25 09:00 03/06/25 11:46 DC 03/06/25 08:13 30 MG Isosorbide Mononitrate (Imdur 30mg Sr) 60 mg DAILY PO 03/07/25 09:00 03/08/25 09:15 DC 03/07/25 08:47 60 MG Ketorolac Tromethamine (ketOROlac troMETHamine) 15 mg Q6H PRN PO MODERATE PAIN (4-6) 03/03/25 18:00 03/03/25 16:22 DC Lactulose (Constulose 20gm/ 30ml Udcup) 20 gm BID PO 03/12/25 21:00 04/11/25 20:59 03/14/25 19:55 20 GM Lactulose (Constulose 20gm/ 30ml Udcup) 20 gm BID PRN PO CONSTIPATION 03/08/25 09:30 04/07/25 09:29 03/12/25 16:26 20 GM Lactulose (Constulose 20gm/ 30ml Udcup) 20 gm BID PRN PO CONSTIPATION 03/12/25 16:30 03/12/25 16:20 DC Magnesium Hydroxide (Milk Of Magnesium 30ml) 30 ml DAILY PRN PO CONSTIPATION 03/08/25 09:30 04/07/25 09:29 Magnesium Sulfate 50 ml @ 12.5 mls/hr AD PRN IV MAG LEVEL LESS THAN 2.0 03/08/25 09:30 04/07/25 09:29 03/12/25 22:19 12.5 MLS/HR Magnesium Sulfate 50 ml @ 0 mls/hr PROTOCOL PRN IV low mag level 02/24/25 09:30 03/09/25 15:49 DC Metoprolol Succinate (TopROL XL) 12.5 mg DAILY PO 02/24/25 09:00 03/06/25 18:49 DC 03/03/25 08:36 12.5 MG Midodrine (PROAMatine 5 MG TABLET) 10 mg TID PO 03/03/25 14:00 03/08/25 09:15 DC 03/07/25 14:38 10 MG Morphine Sulfate (morPHINE 2MG SYG) 0.5 mg Q2H PRN IV MODERATE PAIN (4-6) 03/08/25 09:30 03/09/25 09:29 DC Morphine Sulfate (morPHINE 2MG SYG) 1 mg Q2H PRN IV SEVERE PAIN (7-10) 03/08/25 09:30 03/09/25 09:29 DC Multi-Ingred Cream/Lotion/Oil/ Oint (Artificial Tears Eye Oint) 1 APPL HS OU 03/14/25 21:00 04/13/25 20:59 03/14/25 19:56 1 APPL Nitroglycerin (Nitrostat) 0.4 mg Q5M PRN SL CHEST PAIN 02/24/25 06:00 03/06/25 08:51 DC 03/06/25 08:50 0.4 MG Nitroglycerin/ Dextrose 0 ml @ 0 mls/hr AD IV 03/08/25 09:30 03/11/25 09:29 DC Norepinephrine Bitartrate 250 ml @ 0 mls/hr AD PRN IV TITRATE 03/08/25 07:00 03/08/25 23:13 DC Norepinephrine Bitartrate (Norepineph 16 Mg/250ml NS Premix) PER PROTOCOL PROTOCOL IV 03/08/25 23:30 04/07/25 23:29 03/11/25 19:17 16 MG Norepinephrine Bitartrate 8 mg/ Dextrose 250 ml @ 0 mls/hr AD PRN IV POST-OP CARDIOVASCULAR ORDERS 03/08/25 09:30 03/08/25 09:30 DC Ondansetron HCl (zoFRAN 4MG INJ) 4 mg Q6H PRN IV NAUSEA/VOMITING 03/08/25 09:30 04/07/25 09:29 Pharmacy Profile Note (Pharmacy Communication) 1 each ONCE MISC 03/14/25 08:00 03/14/25 12:36 DC Phytonadione 10 mg/Sodium Chloride 51 ml @ 100 mls/hr Q24H IVPB 03/10/25 01:00 03/12/25 01:31 DC 03/12/25 00:27 100 MLS/HR Piperacillin Sod/ Tazobactam Sod (Zosyn 3.375gm+NS 50ml) 3.375 gm Q8H IVPB 03/10/25 10:30 03/20/25 10:29 03/15/25 03:00 3.375 GM Polyethylene Glycol (MIRalax 3350 17 GM POWD.PACK) 17 gm DAILY PO 03/13/25 09:00 04/12/25 08:59 03/14/25 09:26 17 GM Potassium Phosphate 250 ml @ 42 mls/hr AD PRN IV LOW PHOS LEVEL 03/08/25 09:30 04/07/25 09:29 03/09/25 08:23 42 MLS/HR Potassium Chloride 100 ml @ 50 mls/hr AD PRN IV POTASSIUM PROTOCOL 02/24/25 09:30 03/08/25 09:15 DC Potassium Chloride 100 ml @ 100 mls/hr AD PRN IV POTASSIUM PROTOCOL 02/26/25 11:30 02/27/25 09:49 DC Potassium Chloride 100 ml @ 100 mls/hr AD PRN IV HYPOKALEMIA 03/08/25 09:30 04/07/25 09:29 03/09/25 05:37 100 MLS/HR Potassium Chloride (K-Dur/Klor-Con 20meq) 20 meq AD PRN PO POTASSIUM PROTOCOL 02/26/25 11:30 03/08/25 09:15 DC 03/07/25 05:23 20 MEQ Potassium Chloride (KCl 10% Elixir 20meq/15ml) 20 meq AD PRN PO POTASSIUM PROTOCOL 02/26/25 11:30 03/08/25 09:15 DC Prasugrel (Effient 10mg) 10 mg DAILY PO 02/25/25 09:00 03/01/25 12:54 DC 02/28/25 09:18 10 MG Propofol 100 ml @ 0 mls/hr AD PRN IV SEDATION 03/08/25 09:30 03/12/25 09:29 DC Prothrombin Complex Concent (Human) (Kcentra 500 Unit Kit) 500 unit ONCE IV 03/10/25 12:00 03/10/25 12:24 DC Sodium Bicarbonate 25 meq/Dextrose 1,000 ml @ 0 mls/hr Q0M PRN IVP OTHER [SEE ORDER COMMENTS] 03/10/25 22:30 04/09/25 22:29 03/15/25 05:29 10 MLS/HR Sodium Bicarbonate (Sodium Bicarb 50meq 50ml Vial) 50 meq AD PRN IV OTHER[SEE DOSING INSTRUCTIONS] 03/08/25 09:30 03/11/25 09:29 DC 03/10/25 04:56 100 MEQ Sodium Chloride 500 ml @ 0 mls/hr AD IV 03/08/25 09:30 04/07/25 09:29 03/11/25 02:21 3 MLS/HR Sodium Chloride 1,000 ml @ 0 mls/hr ONCE IV 03/12/25 18:00 03/13/25 13:09 DC Sodium Chloride 1,000 ml @ 0 mls/hr ONCE IV 03/13/25 13:30 04/12/25 13:29 03/13/25 13:41 333 MLS/HR Sodium Chloride 1,000 ml @ 10 mls/hr ONCE IV 03/08/25 09:30 03/09/25 09:29 DC Sodium Chloride 1,000 ml @ 150 mls/hr Q6H40M IV 03/01/25 12:30 03/01/25 16:29 DC 03/01/25 19:04 150 MLS/HR Sodium Chloride (NS 50ml) 50 ml AD IV 03/10/25 10:30 03/10/25 16:27 DC Sodium Chloride (NS Flush 10ml) 10 ml Q8H PRN IVP IV LINE FLUSH 03/08/25 09:30 04/07/25 09:29 Tramadol HCl (UltRAM) 50 mg Q6H PRN PO MODERATE PAIN (4-6) 03/08/25 09:30 03/13/25 09:29 DC Tramadol HCl (UltRAM) 100 mg Q6H PRN PO SEVERE PAIN (7-10) 03/08/25 09:30 03/13/25 09:29 DC Vasopressin 40 units/Sodium Chloride 40 ml @ 0 mls/hr PROTOCOL IV 03/08/25 17:00 04/07/25 16:59 03/10/25 19:26 2.4 MLS/HR Vitamin B Complex (Vitamin B-12) 1,000 mcg DAILY PO 03/12/25 15:30 04/11/25 15:29 03/15/25 08:17 1,000 MCG DIAGNOSTICS / RADIOLOGY: [ ] Assessment: Severe 2 vessel CAD -S/P 4v CABG with impella support on 03-08-[address] Barajas Acute on chronic HFmrEF (LVEF: 40-45% by echo done on 02/25/2025, LVEF 30% on 03.14.25) Cardiogenic shock SCAI Stage D with multiorgan dysfunction , not POA - secondary to complex nature of the procedure and preexisting comorbidities . Multiorgan dysfunction including shock Liver , Acute Kidney failure , respiratory failure -post procedure secondary to complex nature of the CABG and preexisting comorbidities . Anemia , Poa Acute blood loss anemia , s/p surgery - expected . Thrombocytopenia-rule out HIT Severe protein calorie malnutrition with muscle atrophy ; BMI 14.2 NOT POA, exp ected secondary to comorbidities History of Myocardial infarction 2023 Unstable angina s/p Lexiscan Reversible large defect in the anterior, septal lucas. TID 1.19. LVEF 39%. CAD status post stenting of the proximal LAD proximal circumflex and mid circu mflex artery as above with documented progression of disease December 2024 managed medically because of concern the patient would not be compliant with dual antiplatelet therapy Remote anterior wall myocardial infarction July 2024 complicated by cardiogenic shock requiring Impella support for PCI with subsequent ischemic leg requiring [id number] amputation Uncontrolled hypertension POA Hyperlipidemia Uncontrolled diabetes mellitus type 2 with hyperglycemia POA Non compliance to medications, POA Hypercoagulable state on Prasugrel POA Functional decline: s/p Rt BKA POA PLAN: Admit: Continue telemetry condition: guarded Status: full code LINES: cvc impella chest tube et tube og tube marlin DRIPS: levophed Severe 2 vessel CAD -S/P 4v CABG 03-08-[address] Barajas Coronary angiogram on 03/01/2025 revealed severe two-vessel CAD and patient underwent 4v CABG on 03/08/2025 following which patient became hypotensive in the OR, followed by cardiac arrest requiring CPR and ventricular fibrillation s/p cardioversion -subsequently pericardium was reopened and patient was found to have a nonfunctional GOLDSTEIN to LAD anastomosis - s/p repair Impella was inserted for Cardiogenic shock chest tube drain about 350 cc in last 24 hours Defer Beta blockers at this time and continue Continue Aspirin 81mg, as per Cardiology consult recommendations Hold statins, in view of elevated LFTs Cardiogenic shock: S/p 4vCABG complicated by a nonfucntional GOLDSTEIN Currently Impella in place with flow rate 4.3-4.5 set at P8 Anemia, Thrombocytopenia Anemia possibly secondary to hemolysis/myeloproliferative Continue folic acid 1 mg p.o. daily and vitamin B12 1000 mcg p.o. daily. Continue dexamethasone 20 mg IV daily as per recommendations Heparin is stopped and patient is started on Argatroban Continue midodrine 10 mg t.i.d. PRN for systolic blood pressure less than 100. Replace electrolytes as needed as per protocol to keep potassium above 4.0 magnesium 2.0. ac/hs monitoring with SSRI coverage Follow up on left arterial US results Continue Zosyn for prophylactic coverage Supportive measures: DVT ppx, GI ppx MAIKEL DISLA MD Mar 15, 2025 10:14
--- NOTE | 2025-03-15 10:15 | EKG ---
[facility] Test Date: 2025-03-15 Test Time: 10:09:57 Pat Name: SHAHZAD PAGE Department: 2CV Room: 213 1 Gender: F Family Medicine Physician Assistant: THUAN : 1965 Requested By: KIESHA HURST Order Number: [id number] Reading MD: Liam Anderson Measurements Intervals Simpson Rate: 48 P: 0 DC: 0 QRS: 103 QRSD: 88 T: 74 QT: 506 QTc: 452 Interpretive Statements Junctional rhythm Rightward axis Low voltage QRS Compared to ECG 03/08/2025 15:42:32 Junctional rhythm now present Right-axis deviation now present Low QRS voltage now present Sinus tachycardia no longer present Myocardial infarct finding still present Electronically Signed On 03-15-2025 21:41:56 CDT by Liam Anderson Please click the below link to view image of tracing.
[2025-03-15] MEDS: ALBUMIN (HUMAN) 25% 50 ML IV.SOLN. IV SCH (10:16)
--- NOTE | 2025-03-15 10:18 | NUR ---
Patient did not tolerated Hemodialysis at bedside 03/15/25, patient becoming bradycardic HR as low at 46, and hyposensitive. doctor Celia made aware. HD nurse Juan returned blood Procedure aborted.
[2025-03-15 10:54] LABS: ABG BASE EXCESS -4.0 mmol/L (-2.0-3.0); ABG HCO3 19.8 mmol/L (21.0-28.0); ABG OXYGEN SATURATION 98.1 % (94.0-98.0); ABG PCO2 32 mmHg (32-45); ABG PH 7.413 (7.350-7.450); CARBON MONOXIDE 0.6 % (0.5-1.5); PO2, ARTERIAL BG 135.2 mmHg (83.0-108.0); TEMPERATURE, CELSIUS BG 37.0 CELSIUS (35.5-37.0); VENT MODE, BG SIMV PS 10 (ROOM AIR)
[2025-03-15 10:58] LABS: BAND NEUTROPHILS % (MANUAL) 1 % (0-2); LYMPHOCYTES % (MANUAL) 4 % (22-44); MAN.DIFF COMMENT-IMPRESSION MANUAL DIFFERENTIAL; MONOCYTES % (MANUAL) 5 % (2-9); REACTIVE LYMPHOCYTES 1 % (0-0); SEGMENTED NEUTROPHILS % 89 % (40-70)
[2025-03-15 10:59] LABS: PLATELET MORPHOLOGY COMMENT MARKED DECREASE
[2025-03-15] MEDS: NA ZIRCON CYCLOSIL(LOKELMA 10GM) PO ONE (11:03)
--- NOTE | 2025-03-15 11:18 | PN ---
[facility] PROGRESS NOTE Date Patient Seen: Mar 15, 2025 Time of Visit: 11:18 Supervising Physician: Dr. 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 Multiorgan dysfunction Acute liver failure Unstable Angina POA Remote anterior wall myocardial infarction July 2024 complicated by cardiogenic shock requiring Impella support for PCI with subsequent ischemic leg requiring [id number] amputation CAD status post stenting of the proximal LAD proximal circumflex and mid circumflex artery as above with documented progression of disease December 2024 managed medically because of concern the patient would not be compliant with dual antiplatelet therapy Diabetes mellitus type 2 Dyslipidemia Severe protein calorie malnutrition BMI 14.2 Hypercoagulable state on Prasugrel POA Functional decline: s/p Rt BKA POA comorbidities: HX of ACS-STEMI s/p PCI with VIANEY placement (BSS 3.0x20 mm) in the proximal LAD, VIANEY placement (BSS 3.5x16 mm) in the proximal LCx, VIANEY placement (BSS 3.0x12 mm) in the mid LCx, and VIANEY placement (BSS 2.75x24 mm) in the distal LCx done on 07/17/2024 Hx of Intraprocedural VT in July 2024 HX of cardiogenic shock requiring Impella placement in July 2024 HX of Right lower extremity ischemia secondary to Impella placement resulting in RLE limb ischemia s/p right BKA Hx of Ischemic cardiomyopathy Hx of Medication noncompliance Hx of Hypertension ] INTERVAL HISTORY: 03/09/2025: At the time of my evaluation, the patient was lying in bed. She is off sedation RASS score of -2. Patient remains intubated and mechanically vented, SIMV rate of 12, peep 8, Vt 550 and FiO2 50%. Chest tube remains in place, per the staff nurse current output of2 L bloody. On the monitor, the patient was tachycardic, tachypneic and with acceptable blood pressure readings. 5/[address] P 9. Laboratory data was notable for a H&H 7.4/20.6 platelet count of 55. Chemistry panel showed a sodium of 159, po tassium of 4.3, chloride of 120, CO2 of 30, BUN 14, creatinine of 1.1 And a GFR of 57. Total bili of 1.3, AST 280, ALT35 and a alk-phos of 23. Chest imaging today showed bilateral infiltrates more pronounced on the right. Currently, the patient is on epi/levo/vaso drip. No other concern. 03/10/2025: At the time of my evaluation, the patient is lying in bed. The patient remains on mechanical ventilator support SIMV mode, FiO2 75%, peep of 5, rate of 18, vt 550. Chest tube pleural and mediastinal remained in place with a total output of 1030 mL. The patient is febrile T-max 103.3. Vital sign parameters shows tachycardia, tachypnea and soft blood pressure trend. Laboratory data showed stable H&H and platelet count showed a drop from 102-72. Chemistry panel showed a elevated sodium of 160, potassium 5.7, chloride is 113, BUN 26, creatinine of 1.9, GFR of 30. Total bilirubin of 8.5, AST 6256, ALT 2577 and a total CK of 2111. The patient remains coagulopathic. PT 21.4, INR 2.18. Chest imaging today showed concern for a large left pleural effusion. Currently, the patient remains on epi, levo, vaso, Lasix and bicarb. She also remains on antibiotic therapy with Zosyn. No other concern. 03/11/2025: At the time of my evaluation, the patient is lying in bed. The patient may remains mechanically vented on SIMV with pressure support of 10, rate 18, FiO2 75, Vt 550 and a PEEP of 8. Vital signs, are unremarkable. Laboratory data today, showed a WBC 6.6, H&H 9.4/27.1 and a platelet count of 56. Chemistry panel showed a sodium of 151, potassium of 5.8, chloride of 108, CO2 of 20, BUN 42,, creatinine of 2.6 and a GFR of 20. Total bili of 9.6, AST 19184, ALT 2651 alk-phos of 89, total CK of 3243 chest x-ray showed bilateral pulmonary vascular congestion and infiltrate. Left pleural effusion has improved after chest tube placement on 03/10/2025. Currently, the patient continues on epi, levo, vaso and Lasix. She is also on IV Zosyn. No other complaint. 03/12/2025: At the time of my evaluation, the patient was lying in bed. She generally remains in the same condition. The patient remains on a mechanical ventilator support SIMV mode. Repeat chest x-ray today showed worsening bilateral pulmonary edema. Chest tube bilateral remained in place. Vital signs today are unremarkable. Impella remains in place P7. Laboratory data showed H&H of 8.7/25.2 and a platelet count of 19, no leukocytosis. Chemistry panel was notable for a sodium of 146, potassium of 5.3, chloride of 104, CO2 of 27, BUN of 55, creatinine of 3.3 and a GFR of 1. Total bili of 11.0, AST of 4866, ALT of 1460. Currently, the patient is on epi, levo and Lasix. Also the patient receiving antibiotic therapy with Zosyn. 03/13/2025: At the time of my evaluation, the patient is lying in bed. She remains intubated and mechanically vented. Currently SIMV respiratory rate 18, FiO2 60%. Vital signs currently unremarkable. Laboratory data showed a drop in H&H 7.3/21.1 and a platelet count of 41. Chemistry panel showed elevated potassium of 5.6, BUN of 57 , creatinine of 3.2 and a GFR of 16. Liver parameters showing a total bili of 13.0, AST 2369, ALT 850 and a alk-phos of 220. Imaging showed a chest x-ray with a again pulmonary vascular congestion and minimal bilateral pleural effusion. Currently, the patient remains on fentanyl, EPI, levo and Lasix. She also remains on antibiotic therapy with Zosyn. No other complaint. 03/14/2025: At the time of my evaluation, the patient is lying in bed. She generally remains in the same condition. The patient continues on ventilator support SIMV 50% FiO2. Laboratory data today showed a interval increase of WBCs the 0.9, H&H 7.6/23.4 and a platelet count of 14. Chemistry panel was notable for a potassium of 5.2, chloride of 98, CO2 of 18, BUN of 54 , creatinine of 3.0. The liver parameters are improving, today bilirubin of 12.6, AST 2241, ALT of 842 and alk-phos of 229. Coagulation panel showed a PT of 17.0, INR of 1.69 and a PTT of 59.2. No new imaging for review today. A 2D echo limited was or dered and showed normal-sized left ventricular cavity, Impella device present and well-seated in the left ventricle and a LVEF of 30-35%. The patient continues on Precedex, she is currently off pressor therapy and remains on antibiotic coverage with Zosyn. No other complaint. 03/15/2025: At the time of my evaluation, the patient is lying in bed. She remains generally in the same condition. The patient remains mechanically vented and intubated. SIMV, rate of 18, Vt 550, peep of 5and FiO2 50%. Vital s igns showing bradycardia, tachypnea and elevated blood pressure readings. Laboratory data today showed persisting elevated WBCs, today 15.7, H&H 9.9/29.1 and a platelet count of 28. Chemistry panel showing elevated potassium of 5.7, BUN 85 , creatinine of 3.9 and a GFR of 13. Blood glucose of 324. Liver parameters are improving. Chest x-ray today showing bilateral airspace disease and bilateral pleural effusion more prominent on the right. There is pulmonary vascular congestion. Multiple tubes and catheters are visualized and position is unchanged. Medication list reviewed. No other concern. REVIEW OF SYSTEMS: unable to perform PHYSICAL EXAM: GENERAL: critically ill intubated HEENT: Sclera non icteric, moist mucosa NECK: Supple, no JVD, trachea midline , impella 5.5 LUNGS: diminished breath sounds bilaterally. No wheezes HEART: Regular rate and rhythm. Normal S1 and S2, without murmurs, chest tube in place ABD: Abdomen soft, nontender. Bowel sounds present EXT: No clubbing cyanosis or edema rt BKA NEURO: Deferred. Vital Signs (last 8hr) Date Time Temp Pulse Resp B/P (MAP) Pulse Ox O2 Delivery O2 Flow Rate FiO2 03/15/25 10:57 40 03/15/25 10:55 40 03/15/25 10:00 61 24 158/112 (127) 85 50 03/15/25 09:45 51 26 139/104 (116) 93 50 03/15/25 09:30 55 17 120/87 (98) 100 50 03/15/25 09:15 67 22 139/96 (110) 93 50 03/15/25 09:12 73 50 03/15/25 09:00 71 22 142/109 (120) 89 50 03/15/25 08:50 98.2 72 18 146/100 92 Ventilator 50 03/15/25 08:45 76 25 143/109 (120) 87 50 03/15/25 08:30 74 18 140/108 (119) 84 50 03/15/25 08:15 71 19 139/110 (120) 80 50 03/15/25 08:00 80 Ventilator+ 50 03/15/25 08:00 73 17 138/108 (118) 80 03/15/25 08:00 50 03/15/25 07:45 74 18 139/109 (119) 80 03/15/25 07:30 75 21 139/109 (119) 79 03/15/25 07:18 99.3 Ventilator 50 03/15/25 07:15 74 18 136/108 (117) 78 03/15/25 07:00 74 18 135/107 (116) 79 50 03/15/25 06:45 75 23 135/106 (116) 81 50 03/15/25 06:05 85 50 03/15/25 04:15 81 17 134/105 (115) 98 03/15/25 04:00 98.6 Ventilator 50 03/15/25 04:00 80 17 130/106 (114) 86 03/15/25 04:00 50 03/15/25 03:56 76 50 03/15/25 03:48 90 Ventilator+ 50 03/15/25 03:45 79 19 132/107 (115) 87 03/15/25 03:30 80 17 132/107 (115) 92 LABS: Hematology Labs: Test 03/15/25 09:30 Range/Units White Blood Count 15.7 H 4.8-10.8 K/uL Red Blood Count 3.20 #L 4.00-5.50 MIL/uL Hemoglobin 9.9 #L 12.0-16.0 g/dL Hematocrit 29.1 #L 36-48 % Mean Corpuscular Volume 90.9 79-99 fL Mean Corpuscular Hemoglobin 30.9 27.0-33.0 pg Mean Corpuscular Hemoglobin Concent 34.0 32.0-36.0 g/dL Red Cell Distribution Width 16.0 H 11.0-15.5 % Platelet Count 28 #L 130-400 K/uL Mean Platelet Volume 7.5-10.5 fL Immature Granulocyte % (Auto) 2.9 H 0-1 % Neutrophils (%) (Auto) 85.2 H 40.0-77.0 % Lymphocytes (%) (Auto) 6.7 L 21.0-51.0 % Monocytes (%) (Auto) 4.8 3.0-13.0 % Eosinophils (%) (Auto) 0.0 0.0-8.0 % Basophils (%) (Auto) 0.4 0.0-5.0 % Neutrophils # (Auto) 13.4 H 1.8-7.7 K/uL Lymphocytes # (Auto) 1.1 1.0-4.8 K/uL Monocytes # (Auto) 0.8 0.1-1.0 K/uL Eosinophils # (Auto) 0.00 0.00-0.70 K/uL Basophils # (Auto) 0.06 0.00-0.20 K/uL Absolute Immature Granulocyte (auto 0.45 0-1 K/uL Segmented Neutrophils % 89 H 40-70 % Band Neutrophils % 1 0-2 % Lymphocytes % (Manual) 4 L 22-44 % Monocytes % (Manual) 5 2-9 % Nucleated Red Blood Cells 13.6 H 0.0-0.19 % Differential Comment MANUAL DIFFERENTIAL Reactive Lymphocytes 1 H 0-0 % White Cell Morphology Comment Platelet Morphology Comment MARKED DECREASE Red Blood Cell Morphology See comments Chemistry Labs: Test 03/15/25 09:30 03/14/25 06:15 Range/Units Sodium Level 143 136-145 mmol/L Potassium Level 5.7 H 3.5-5.1 mmol/L Chloride Level 99 L 101-111 mmol/L Carbon Dioxide Level 25 21-32 mmol/L Blood Urea Nitrogen 85 *H 7-18 mg/dL Creatinine 3.9 H 0.5-1.0 mg/dL Glomerular Filtration Rate Calc 13 >90 mL/min Random Glucose 324 H 70-105 mg/dL Total Calcium 8.5 8.5-10.1 mg/dL Total Bilirubin 9.5 H 0.2-1.0 mg/dL Aspartate Amino Transf (AST/SGOT) 1986 *H 10-37 U/L Alanine Aminotransferase (ALT/SGPT) 833 *H 12-78 U/L Alkaline Phosphatase 249 H 50-136 U/L Total Protein 5.6 L 6.0-8.3 g/dL Albumin 3.0 L 3.5-5.0 g/dL Phosphorus Level 5.7 H 2.5-4.9 mg/dL Magnesium Level 2.40 1.80-2.40 mg/dL Coagulation Labs: Test 03/15/25 09:30 03/15/25 02:08 Range/Units Activated Partial Thromboplast Time 92.6 #*H 26.3-35.5 SEC Prothrombin Time 34.3 #H 9.6-11.6 SEC Prothromb Time International Ratio 3.68 *H 0.85-1.15 DIAGNOSTICS / RADIOLOGY RESULTS: [ ] PLAN Follow CT surgeon recommendations Follow cardiology recommendations Multimodal pain management Monitoring H&H Monitor chest tube output Chest x-ray in the morning Start SBT's as tolerated Pending 2D echo post cabg POCUS US continue impella support per cardiology follow chest XR Monitor ABGs Transfuse if absolutely necessary to keep hemoglobin above 8 Maintain O2 sats greater than 92% Incentive spirometry once extubated Hemoglobin A1 Glycemic control with goal of 80-180 Referral for cardiac rehabilitation Speech to eval once patient is extubated monitor electrolytes: K Goal of 4 Magnesium goal of 2 Replace accordingly monitor hemodynamic and continue support with pressors 03/09/2025: For now, going to continue current management for the patient. She will remain intubated and will be extubated per the CTS/CABG protocol. Patient will continue on cardiac management per the Cardiology team/CTVS. Because of her severe anemia, she was ordered to receive a unit of whole blood and 2 units of platelet which are pending to be infused. We will continue to monitor the H&H trend. Balloon pump remains in place as well as Cordis and chest tube mediastinal and pleural. We will repeat surveillance labs in morning. We will follow the recommendation of the CTS and we will intervene if necessary. We will continue to provide general supportive care, GI and DVT prophylaxis. Further orders per attending MD and hospital course. 03/10/2025: For now, going to continue current management. The patient will remains intubated and mechanically vented. Because of the appearance of a large left pleural effusion, we are asked to a chest tube for drainage. This will be placed at the bedside. The patient remains with mediastinal and pleural chest tube in place. Impella remains in place, P5. Continue with pressor therapy, diuretic and antibiotic. I am going to repeat surveillance labs in the morning as was as a chest x-ray. Nephrology was consulted for further renal management, we will await their input. I discussed the findings and plan for further management with the staff nurse. No family member present at the bedside. We will monitor the patient's progress and response to management. We will c ontinue to provide general supportive care, GI and DVT prophylaxis. Further orders per attending MD and hospital course. 03/11/2025: For now, going to continue current management for the patient. Patient received a dose of Kayexalate earlier for management of the hyperkalemia, we will repeat level and decide on further need for extra dose of Kayexalate. Per the Cardiothoracic surgeon recommendations were to obtain a hit panel and consult the steam pipe fitter for further input on management due to her l ow platelet count. We will follow their recommendation. The patient will remain on mechanical ventilator support and sedation. We will follow the chest tube output. There was slight improvement of her liver parameters and total CK increase. I discussed the findings and plan for further management with the staff nurse. We will monitor the patient's progress and response to management. We will continue to provide general supportive care, GI and DVT prophylaxis. Further orders per attending MD and hospital course. 03/12/2025: For now, going to continue current management for the patient. We will continue antibiotic therapy as ordered. I am going to request a ammonia level and a repeat chest x-ray. Lokelma 10 mg was administered in attempt of correcting the hyperkalemia. I strongly believe the patient would benefit from hemodialysis to off load fluid. We will follow the pipe fitter ammonia's input. We will also discuss the case with the CTVS. I discussed the findings and plan for further management with the staff nurse. We will monitor the patient's progress and response to management. We will continue to provide general supportive care, GI and DVT prophylaxis. Further orders per attending MD and hospital course. 03/13/2025: For now, we are going to continue current management for the patient. We will continue with mechanical ventilator support and adjust as necessary. Continue pressor therapy as ordered. Impella 5/[address] P7[address] The patient is a new start of hemodialysis with removal of 1 L on 03/13/2025 and is scheduled for hemodialysis today with a goal of 2 L3 hours. We will continue to follow the potassium trend and hope for correction with hemodialysis. The left lower extremity was noted to be mottled today compared to previous days and is cool to palpation. I am going to request a arterial Doppler study to rule out occlusion. Gang Worker of the patient consulted and from his standpoint, findings were not consistent with hit rather consumption and bone marrow suppression. I discussed the findings and plan for further management with the staff nurse. We will monitor the patient's progress and res ponse to management. We will continue to provide general supportive care, GI and DVT prophylaxis. Further orders per attending MD and hospital course. 03/14/2025: For now, we will continue current management for the patient. I do agree with the switch from heparin to argatroban. We will continue to monitor the H&H and platelet count. Hematology saw the patient and recommended dexamethasone 20 mg IV daily. We will continue therapy as ordered and monitor the patient off pressor therapy. We will follow the guidance of the Cardiology team and CTVS. I discussed the findings and plan for further management with the patient. We will monitor the patient's progress and response to management. We will continue to provide general supportive care, GI and DVT prophylaxis. Further orders per attending MD and hospital course. 03/15/2025: For now, going to continue current management for the patient. We will continue mechanical ventilator support and adjust parameters as necessary. Currently, the patient remains on a Epi and argatroban drip. I am going to order the hyperkalemia cocktail manage the elevated potassium. The patient was started on feeding through the NG tube and blood glucose was elevated in the 300s. I am going to start the patient on insulin sliding scale as well as long- acting Lantus. If blood sugars do not improve, we may need to start the patient on a insulin drip considering the patient is also on IV steroids. Patient is currently receiving hemodialysis as ordered. I discussed the findings and plan for further management with the staff nurse and rounding MD. We will monitor the patient's progress and response to management. We will continue to provide general supportive care, GI and DVT prophylaxis. Further orders per attending MD and hospital course. NEURO: Minimize central acting medications as possible. Fall Precautions. Well lighted room through the day and minimize interruptions through the night to prevent acute delirium. PULMONARY: Supplemental 02 as needed Titrate Fio2 to keep Spo2 > or = 90% DuoNebs and CPT as needed IS hourly while awake for pulmonary hygiene Out of bed to chair as tolerated VAP Bundle Ventilator per CV protocol CARDIOVASCULAR: Follow hemodynamics. Titrate vasopressor to keep MAP >65 or systolic blood pressure >95mmHg DRIPS: levophed vasopressin epi Lasix LINES: cvc impella chest tube et tube og tube A-line manjarrez GI & NUTRITION: Continue nutritional support Aspirations precautions Prokinetic agents and laxatives as needed KIDNEYS & ELECTROLYTES: Strict monitoring of intake and output Daily weights Avoid nephrotoxic agents Monitor electrolytes and replace as needed Goal urine output of 30mL/hr or 0.5mL/kg/hr Urine output: [ ] Fluid Balance: [ ] ENDOCRINE: Maintain blood glucose between 100-180 at all times. Insulin sliding scale for blood glucose management INFECTIOUS DISEASE: Trend temperature. Combs-culture if febrile. Micro: [ ] MRSA negative Antibiotics: Zosyn HEMATOLOGY & COAGULATION: Monitor H&H. Keep Hgb > 7 Transfuse 1 unit of PRBC for Hgb < 7 Transfuse 1 pack of platelets of platelets < 20, 000 Watch for any signs and symptoms of bleeding SKIN: Pressure ulcer prevention per facility protocol Rehab: PT/OT Prophylaxis: GI: pepcid DVT: [ tedhose ac per cv ] Code Status: Full Resuscitation Disposition: [ICU ] Other: I personally spent 50 minutes of critical care time in treatment of this patient. This includes patient management, time at bedside, time reviewing tests, labs, appropriate images and studies, documentation, and patient care coordination. This time excludes separately billable procedures. Patient was seen and case discussed with purnima POWERS. Plan of care was discussed and agreed upon. AYLEEN NAVA ADMISSIONS MANAGER RN Mar 15, 2025 11:18
--- NOTE | 2025-03-15 11:44 | PN ---
NEPHROLOGY NOTE SUBJECTIVE: This patient has been evaluated in ICU on dialysis multiple times. The patient is critically ill in ICU, on pressors, status post CABG. The patient is hypotensive and remains quite sick, intubated and mechanically ventilated. She remains on Epogen as needed. Hemoglobin has been low. PHYSICAL EXAMINATION: VITAL SIGNS: Blood pressure is 118/76, pulse 74, respiratory rate is 21. HEENT: Head is atraumatic. . NECK: Supple. No masses or bruits. Thyroid is palpable. Neck has no bruits. CHEST: Shows note being resonant in all areas. CARDIAC: Regular rhythm. No rub, no S3 or S4. LABORATORY DATA: We have reviewed available labs in detail and old records reviewed. IMAGING STUDIES: Imaging studies are personally reviewed. PROBLEMS: Renal failure, anemia and multiple other comorbidities. PLAN: To continue monitoring. Follow up on renal function. Follow up on electrolytes. Intake, output, weight and overall status to be monitored. Condition is critical, guarded. The patient's condition is poor. The patient is in ICU, intubated and mechanically ventilated and seen on dialysis multiple times. TID: [id number] RECEIPT: [id number]
--- NOTE | 2025-03-15 12:05 | NUR ---
Celia felton. Family at bedside. MD updated , son, daughter and sister regarding plan of care.
[2025-03-15] MEDS: CALCIUM GLUC 1GM 1 GM in 0.9%NACL 100ML 100 ML IV ONE (13:10)
[2025-03-15] MEDS: BUMETANIDE 1MG/4ML VIAL IM ONE (13:11)
[2025-03-15] MEDS: DEXTROSE 50%-WATER 50 ML DISP.SYRIN IV ONE (13:29)
[2025-03-15] MEDS: BUMETANIDE 1MG/4ML VIAL IVP ONE (13:34)
[2025-03-15 14:48] LABS: ABG BASE EXCESS -3.9 mmol/L (-2.0-3.0); ABG HCO3 20.6 mmol/L (21.0-28.0); ABG OXYGEN SATURATION 92.0 % (94.0-98.0); ABG PCO2 36 mmHg (32-45); ABG PH 7.382 (7.350-7.450); CARBON MONOXIDE 0.9 % (0.5-1.5); PO2, ARTERIAL BG 69.5 mmHg (83.0-108.0); TEMPERATURE, CELSIUS BG 37.0 CELSIUS (35.5-37.0); VENT MODE, BG SIMV PS 10 (ROOM AIR)
[2025-03-15 15:07] LABS: CREATININE 3.9 mg/dL (0.5-1.0); GLOMERULAR FILTR. RATE CALC 13.0 mL/min (>90); SODIUM SERUM 142.0 mmol/L (136-145)
[2025-03-15 15:09] LABS: GLUCOSE,RANDOM 402.0 mg/dL (70-105); UREA NITROGEN, BLOOD 90.0 mg/dL (7-18)
[2025-03-15] MEDS: INSULIN REGULAR, HUMAN 3ML 100 UNIT in 0.9%NACL 100ML 99 ML IV PRN (15:19)
--- NOTE | 2025-03-15 15:20 | NUR ---
[facility] [place] [facility] Follow-up: Patient re-assessed by wound healing team. See wound assessment. Assessment and recommendations provided to primary nurse. Education provided. Addendum: 03/16/25 at 1436 by JULIA BUITRAGO RN RN/ Amended: Links added.
[2025-03-15 19:33] LABS: ABG BASE EXCESS 4.5 mmol/L (-2.0-3.0); ABG HCO3 26.2 mmol/L (21.0-28.0); ABG OXYGEN SATURATION 95.9 % (94.0-98.0); ABG PCO2 30 mmHg (32-45); ABG PH 7.559 (7.350-7.450); CARBON MONOXIDE 2.1 % (0.5-1.5); DEVICE COMMENT TED RN, AL; PO2, ARTERIAL BG 76.8 mmHg (83.0-108.0); TEMPERATURE, CELSIUS BG 37.0 CELSIUS (35.5-37.0); VENT MODE, BG SIMV PS 10 (ROOM AIR)
[2025-03-15 19:38] LABS: IMMATURE GRANULOCYTE ABSOLUTE 0.81 K/uL (0-1); NUCLEATED RED BLOOD CELLS 22.4 % (0.0-0.19); PLATELET COUNT (AUTO) 45 K/uL (130-400); RED BLOOD CELL COUNT(AUTO) 3.68 MIL/uL (4.00-5.50); RED CELL DISTRIBUTION WIDTH 15.6 % (11.0-15.5); WHITE BLOOD COUNT (AUTO) 21.6 K/uL (4.8-10.8)
[2025-03-15 19:48] LABS: CREATININE 2.0 mg/dL (0.5-1.0); GLOMERULAR FILTR. RATE CALC 28.0 mL/min (>90); GLUCOSE,RANDOM 217.0 mg/dL (70-105); SODIUM SERUM 139.0 mmol/L (136-145); UREA NITROGEN, BLOOD 46.0 mg/dL (7-18)
[2025-03-15 19:51] LABS: INR 2.78 (0.85-1.15)
--- NOTE | 2025-03-15 22:33 | PN ---
TIME: 1:00 p.m. SUBJECTIVE: The patient is a 59-year-old female status post coronary artery bypass grafting and Impella 5.5. Day 7. Remains critical in the ICU. PHYSICAL EXAMINATION: NEUROLOGIC: Intubated, sedated. CARDIAC: S1, S2. Regular rate and rhythm. RESPIRATORY: Clear to auscultation bilaterally. ASSESSMENT AND PLAN: * Coronary artery disease status post CABG with Impella assist 5.5, currently on high-dose epinephrine and Impella full support. We will continue to wean the epinephrine as tolerated. * Acute renal insufficiency, status post surgery. The patient is tolerating dialysis intermittently. We will continue to monitor her electrolytes very closely. * Volume overload. We will continue to monitor her volume status and remove fluid with dialysis. * Possible heparin-induced thrombocytopenia and thrombocytosis. The patient is on argatroban drip. * ____. We will continue to monitor. TID: [id number] RECEIPT: [id number]
--- NOTE | 2025-03-15 23:16 | PN ---
A 59-year-old female who has had a prolonged hospital course. She initially presented with chest pain. The patient eventually underwent coronary catheterization that revealed 3-vessel disease. The patient is status post CABG. The patient has developed acute renal failure postoperatively. The patient remains intubated in the ICU. The patient continues with the pressors. She was also noted to have hyperkalemia and was treated medically. Patient continues to be intubated. The patient was started on argatroban. Platelet count continued to be low. Patient with multiorgan failure. The patient continues to be bleeding from the tubes. PHYSICAL EXAMINATION: VITAL SIGNS: Blood pressure is 101/69, pulse in the 100s. She is afebrile. GENERAL: She is a chronically ill female, lying in bed in the medical floor. HEENT: Head is atraumatic. Pupils equal and reactive to light. Oropharynx, ET tubes in place. NECK: Supple. There is no JVP. CARDIOVASCULAR: Regular. There is no S3 or S4 gallop. LUNGS: Coarse with equal thoracic movement. ABDOMEN: Soft, nondistended, nontender. EXTREMITIES: There is no edema. NEUROLOGICAL: She is sedated with the vent. SKIN: No rashes or nodules. BACK: There is no CVA tenderness. No back deformities. IMPRESSION: 1. Neutropenia 2. Anemia 3. Thrombocytopenia 4. Liver failure 5. Acute renal failure 6. Coronary artery disease status post CABG 7. Transfusion is a patient to have multiple blood product transfusion including 17 red cells, 9 platelet, 4 fresh frozen plasma and 1 whole blood. Plan 1. Peripheral blood smear showed red blood cells to be microcytic normochromic with dimorphic picture showed be consistent with iron deficiency anemia with the patient received blood transfusion. There was no fragment cell or schistocyte. There is no teardrop cell. There is no rouleaux phenomena. There is no pelger- Huet cell. White blood cell with no blasts. There is decreased number of the platelets. But the platelet is normal in size. This is not consistent with HIT. 2. There was hypersegmented neutrophils. This patient to continue on folic acid 1 mg p.o. daily and vitamin B12 1000 mcg p.o. daily. 3. Peripheral smear actually showed nucleated blood cells very mature cell. The patient could have hemolysis or could have also myeloproliferative disorder to start with. So this patient may be will need bone marrow biopsy to be done later on. 4. Cardiothoracic wanted the patient to be on argatroban. But we will optimize the dose only for PTT to be between 60 and 70. More than 72 hold argatroban for 2 hours then decrease by 20% especially if the patient is bleeding from the tube. 5. This patient could benefit actually from dexamethasone 20 mg IV daily 6. Continue care as per prepress technician There is no need for anticoagulation only as for prophylaxis. It seems the patient is on aspirin. 7. This patient could benefit from IV iron. Vitals/Labs Vital Signs Date Time Temp Pulse Resp B/P (MAP) Pulse Ox O2 Delivery O2 Flow Rate FiO2 03/15/25 23:00 87 18 139/100 (113) 97 60 03/15/25 20:28 Ventilator+ 03/15/25 20:00 98.1 03/11/25 19:30 0 Laboratory Tests 03/15/25 09:30 03/15/25 14:45 03/15/25 19:29 Medications Current Medications Nitroglycerin 0.4 mg Q5M PRN SL Last administered on 03/06/25at 08:50; Start 02/24/25 at 06:00; Stop 03/06/25 at 08:51; Status DC Heparin Sodium/ Dextrose 250 ml @ 0 mls/hr PROTOCOL PRN IV Last administered on 02/25/25at 01:09; Start 02/24/25 at 06:00; Stop 02/25/25 at 05:59; Status DC Morphine Sulfate 2 mg ONCE ONCE IVP Last administered on 02/24/25at 06:38; Start 02/24/25 at 06:00; Stop 02/24/25 at 06:01; Status DC Aspirin 325 mg ONCE ONCE PO; Start 02/24/25 at 06:00; Stop 02/24/25 at 06:01; Status DC Heparin Sodium (Porcine) 5,000 unit STK-MED ONCE .ROUTE; Start 02/24/25 at 06:17; Stop 02/24/25 at 06:17; Status DC Heparin Sodium (Porcine) 3,000 unit ONCE ONCE IV Last administered on 02/24/25at 06:38; Start 02/24/25 at 06:30; Stop 02/24/25 at 06:31; Status DC Acetaminophen 650 mg Q4H PRN PO Last administered on 03/01/25at 19:06; Start 02/24/25 at 07:00; Stop 03/26/25 at 06:59 Famotidine 20 mg BID PO Last administered on 03/07/25at 20:29; Start 02/24/25 at 09:00; Stop 03/09/25 at 10:34; Status DC Atorvastatin Calcium 20 mg HS PO; Start 02/24/25 at 21:00; Stop 02/24/25 at 08:52; Status DC Aspirin 81 mg DAILY PO; Start 02/24/25 at 09:00; Stop 02/24/25 at 08:52; Status DC Isosorbide Mononitrate 30 mg DAILY PO Last administered on 03/06/25at 08:13; Start 02/24/25 at 09:00; Stop 03/06/25 at 11:46; Status DC Atorvastatin Calcium 40 mg HS PO Last administered on 03/11/25at 20:11; Start 02/24/25 at 21:00; Stop 03/12/25 at 08:25; Status DC Metoprolol Succinate 12.5 mg DAILY PO Last administered on 03/03/25at 08:36; Start 02/24/25 at 09:00; Stop 03/06/25 at 18:49; Status DC Magnesium Sulfate 50 ml @ 0 mls/hr PROTOCOL PRN IV; Start 02/24/25 at 09:30; Stop 03/09/25 at 15:49; Status DC Potassium Chloride 100 ml @ 50 mls/hr AD PRN IV; Start 02/24/25 at 09:30; Stop 03/08/25 at 09:15; Status DC Insulin Human Regular INSULIN SLIDING SCAL... ACHS SQ Last administered on 03/06/25at 20:24; Start 02/24/25 at 11:30; Stop 03/08/25 at 09:15; Status DC Prasugrel 10 mg DAILY PO Last administered on 02/28/25at 09:18; Start 02/25/25 at 09:00; Stop 03/01/25 at 12:54; Status DC Citalopram Hydrobromide 10 mg DAILY PO Last administered on 03/10/25at 08:16; Start 02/25/25 at 09:00; Stop 03/27/25 at 08:59 Aspirin 81 mg ONCE ONCE PO Last administered on 02/24/25at 17:45; Start 02/24/25 at 17:00; Stop 02/24/25 at 17:01; Status DC Aspirin 81 mg DAILY PO Last administered on 02/28/25at 09:18; Start 02/25/25 at 09:00; Stop 03/01/25 at 12:33; Status DC Potassium Chloride 100 ml @ 100 mls/hr AD PRN IV; Start 02/26/25 at 11:30; Stop 02/27/25 at 09:49; Status DC Potassium Chloride 20 meq AD PRN PO; Start 02/26/25 at 11:30; Stop 03/08/25 at 09:15; Status DC Potassium Chloride 20 meq AD PRN PO Last administered on 03/07/25at 05:23; Start 02/26/25 at 11:30; Stop 03/08/25 at 09:15; Status DC Regadenoson 0.4 mg STK-MED ONCE IVP; Start 02/27/25 at 07:38; Stop 02/27/25 at 07:40; Status DC Lidocaine HCl 20 ml STK-MED ONCE .ROUTE; Start 03/01/25 at 11:08; Stop 03/01/25 at 11:08; Status DC Iohexol 35,000 mg STK-MED ONCE IV; Start 03/01/25 at 11:08; Stop 03/01/25 at 11:08; Status DC Heparin Sodium (Porcine) 10,000 unit STK-MED ONCE .ROUTE; Start 03/01/25 at 11:08; Stop 03/01/25 at 11:09; Status DC Heparin Sodium/ Sodium Chloride 1,000 ml @ As Directed STK-MED ONCE IV; Start 03/01/25 at 11:09; Stop 03/01/25 at 11:09; Status DC Nitroglycerin 50 mg STK-MED ONCE .ROUTE; Start 03/01/25 at 11:09; Stop 03/01/25 at 11:09; Status DC Verapamil HCl 5 mg STK-MED ONCE .ROUTE; Start 03/01/25 at 11:10; Stop 03/01/25 at 11:10; Status DC Atropine Sulfate 1 mg STK-MED ONCE IVP; Start 03/01/25 at 11:39; Stop 03/01/25 at 11:39; Status DC Fentanyl Citrate 100 mcg STK-MED ONCE .ROUTE; Start 03/01/25 at 11:39; Stop 03/01/25 at 11:40; Status DC Midazolam HCl 2 mg STK-MED ONCE .ROUTE; Start 03/01/25 at 11:39; Stop 03/01/25 at 11:40; Status DC Dopamine HCl/ Dextrose 0 ml @ As Directed STK-MED ONCE IV; Start 03/01/25 at 11:40; Stop 03/01/25 at 11:40; Status DC Prasugrel 10 mg STK-MED ONCE .ROUTE; Start 03/01/25 at 12:15; Stop 03/01/25 at 12:15; Status DC Aspirin 81 mg STK-MED ONCE .ROUTE; Start 03/01/25 at 12:15; Stop 03/01/25 at 12:15; Status DC Sodium Chloride 1,000 ml @ 150 mls/hr Q6H40M IV Last administered on 03/01/25at 19:04; Start 03/01/25 at 12:30; Stop 03/01/25 at 16:29; Status DC Aspirin 81 mg DAILY PO Last administered on 03/15/25at 08:18; Start 03/02/25 at 09:00; Stop 04/01/25 at 08:59 Dextrose 50 ml AD PRN IV; Start 03/01/25 at 12:30; Stop 03/09/25 at 15:51; Status DC Glucagon 1 mg AD PRN IM; Start 03/01/25 at 12:30; Stop 03/09/25 at 15:51; Status DC Acetaminophen 650 mg Q4H PRN PO Last administered on 03/04/25at 10:39; Start 03/02/25 at 02:30; Stop 04/01/25 at 02:29 Potassium Chloride 40 meq ONCE ONCE PO Last administered on 03/02/25at 19:47; Start 03/02/25 at 15:00; Stop 03/02/25 at 15:01; Status DC Midodrine 5 mg ONCE ONCE PO; Start 03/03/25 at 21:00; Stop 03/03/25 at 13:17; Status DC Midodrine 10 mg TID PO Last administered on 03/07/25at 14:38; Start 03/03/25 at 14:00; Stop 03/08/25 at 09:15; Status DC Docusate Sodium 100 mg BID PO; Start 03/03/25 at 21:00; Stop 03/03/25 at 16:22; Status DC Ketorolac Tromethamine 15 mg Q6H PRN PO; Start 03/03/25 at 18:00; Stop 03/03/25 at 16:22; Status DC Potassium Chloride 40 meq ONCE ONCE PO Last administered on 03/05/25at 11:35; Start 03/05/25 at 08:30; Stop 03/05/25 at 08:31; Status DC Isosorbide Mononitrate 60 mg DAILY PO Last administered on 03/07/25at 08:47; Start 03/07/25 at 09:00; Stop 03/08/25 at 09:15; Status DC Potassium Chloride 40 meq ONCE ONCE PO Last administered on 03/07/25at 11:58; Start 03/07/25 at 12:00; Stop 03/07/25 at 12:01; Status DC Cefazolin Sodium 2 gm ONCALL IVP; Start 03/07/25 at 22:00; Stop 03/09/25 at 21:59; Status DC Epinephrine HCl 10 mg/Sodium Chloride 250 ml @ 0 mls/hr AD PRN IV Last administered on 03/14/25at 07:02; Start 03/08/25 at 07:00; Stop 04/07/25 at 06:59 Norepinephrine Bitartrate 250 ml @ 0 mls/hr AD PRN IV; Start 03/08/25 at 07:00; Stop 03/08/25 at 23:13; Status DC Aminocaproic Acid 35343 mg/Sodium Chloride 480 ml @ 0 mls/hr AD PRN IV; Start 03/08/25 at 07:00; Stop 04/07/25 at 06:59 Cefazolin Sodium 2 gm STK-MED ONCE .ROUTE; Start 03/08/25 at 07:21; Stop 03/08/25 at 07:22; Status DC Sodium Chloride 1,000 ml @ As Directed STK-MED ONCE IV Last administered on 03/08/25at 07:24; Start 03/08/25 at 07:22; Stop 03/08/25 at 07:22; Status DC Heparin Sodium (Porcine) 10,000 unit STK-MED ONCE .ROUTE; Start 03/08/25 at 07:25; Stop 03/08/25 at 07:25; Status DC Heparin Sodium (Porcine) 10,000 unit STK-MED ONCE .ROUTE; Start 03/08/25 at 07:27; Stop 03/08/25 at 07:27; Status DC Potassium Chloride 200 ml @ As Directed STK-MED ONCE IV; Start 03/08/25 at 07:27; Stop 03/08/25 at 07:27; Status DC Lidocaine HCl/ Dextrose 250 ml @ As Directed STK-MED ONCE IV; Start 03/08/25 at 07:30; Stop 03/08/25 at 07:30; Status DC Nitroglycerin/ Dextrose 1 ml @ As Directed STK-MED ONCE .ROUTE; Start 03/08/25 at 07:34; Stop 03/08/25 at 07:35; Status DC Cefazolin Sodium 1 gm STK-MED ONCE .ROUTE; Start 03/08/25 at 07:36; Stop 03/08/25 at 07:36; Status DC Gentamicin Sulfate 80 mg STK-MED ONCE .ROUTE; Start 03/08/25 at 07:36; Stop 03/08/25 at 07:36; Status DC Heparin Sodium/ Sodium Chloride 500 ml @ As Directed STK-MED ONCE IV; Start 03/08/25 at 07:36; Stop 03/08/25 at 07:36; Status DC Papaverine HCl 60 mg STK-MED ONCE .ROUTE; Start 03/08/25 at 07:38; Stop 03/08/25 at 07:39; Status DC Protamine Sulfate 250 mg STK-MED ONCE IV; Start 03/08/25 at 08:28; Stop 03/08/25 at 08:28; Status DC Lidocaine HCl 100 mg STK-MED ONCE .ROUTE; Start 03/08/25 at 08:28; Stop 03/08/25 at 08:28; Status DC Epinephrine HCl 1 mg STK-MED ONCE .ROUTE; Start 03/08/25 at 08:28; Stop 03/08/25 at 08:28; Status DC Sodium Bicarbonate 150 ml @ As Directed STK-MED ONCE .ROUTE; Start 03/08/25 at 08:28; Stop 03/08/25 at 08:28; Status DC Norepinephrine Bitartrate 4 mg STK-MED ONCE IV; Start 03/08/25 at 08:28; Stop 03/08/25 at 08:28; Status DC Propofol 200 mg STK-MED ONCE IV; Start 03/08/25 at 08:28; Stop 03/08/25 at 08:29; Status DC Fentanyl Citrate 1,000 mcg STK-MED ONCE IJ; Start 03/08/25 at 08:28; Stop 03/08/25 at 08:29; Status DC Midazolam HCl 2 mg STK-MED ONCE .ROUTE; Start 03/08/25 at 08:29; Stop 03/08/25 at 08:29; Status DC Rocuronium [place] 50 mg STK-MED ONCE .ROUTE; Start 03/08/25 at 08:29; Stop 03/08/25 at 08:29; Status DC Etomidate 20 mg STK-MED ONCE .ROUTE; Start 03/08/25 at 08:29; Stop 03/08/25 at 08:29; Status DC Amiodarone HCL/ Dextrose 100 ml @ As Directed STK-MED ONCE .ROUTE; Start 03/08/25 at 09:08; Stop 03/08/25 at 09:09; Status DC Acetaminophen 1,000 mg Q6H6 IV Last administered on 03/09/25at 12:00; Start 03/08/25 at 13:00; Stop 03/09/25 at 12:59; Status DC Aspirin 81 mg ONCE ONCE NG; Start 03/08/25 at 13:00; Stop 03/08/25 at 13:01; Status DC Docusate Sodium 100 mg BID PO Last administered on 03/15/25at 20:24; Start 03/08/25 at 21:00; Stop 04/07/25 at 20:59 Lactulose 20 gm BID PRN PO Last administered on 03/12/25at 16:26; Start 03/08/25 at 09:30; Stop 04/07/25 at 09:29 Furosemide 20 mg Q12H PO; Start 03/10/25 at 09:00; Stop 03/10/25 at 16:28; Status DC Furosemide 20 mg Q12H IV Last administered on 03/10/25at 01:15; Start 03/09/25 at 09:00; Stop 03/10/25 at 08:59; Status DC Magnesium Hydroxide 30 ml DAILY PRN PO; Start 03/08/25 at 09:30; Stop 04/07/25 at 09:29 Dexmedetomidine/ Sodium Chloride 400 mcg PROTOCOL IV; Start 03/08/25 at 09:30; Stop 03/09/25 at 09:29; Status DC Acetaminophen 650 mg Q6H PRN PO; Start 03/08/25 at 09:30; Stop 03/08/25 at 09:36; Status DC Sodium Chloride 1,000 ml @ 10 mls/hr ONCE IV; Start 03/08/25 at 09:30; Stop 03/09/25 at 09:29; Status DC Sodium Chloride 10 ml Q8H PRN IVP; Start 03/08/25 at 09:30; Stop 04/07/25 at 09:29 Morphine Sulfate 0.5 mg Q2H PRN IV; Start 03/08/25 at 09:30; Stop 03/09/25 at 09:29; Status DC Morphine Sulfate 1 mg Q2H PRN IV; Start 03/08/25 at 09:30; Stop 03/09/25 at 09:29; Status DC Acetaminophen 650 mg Q4H PRN RC; Start 03/08/25 at 09:30; Stop 04/07/25 at 09:29 Ondansetron HCl 4 mg Q6H PRN IV; Start 03/08/25 at 09:30; Stop 04/07/25 at 09:29 Sodium Chloride 500 ml @ 0 mls/hr AD IV Last administered on 03/11/25at 02:21; Start 03/08/25 at 09:30; Stop 04/07/25 at 09:29 Nitroglycerin/ Dextrose 0 ml @ 0 mls/hr AD IV; Start 03/08/25 at 09:30; Stop 03/11/25 at 09:29; Status DC Propofol 100 ml @ 0 mls/hr AD PRN IV; Start 03/08/25 at 09:30; Stop 03/12/25 at 09:29; Status DC Norepinephrine Bitartrate 8 mg/ Dextrose 250 ml @ 0 mls/hr AD PRN IV; Start 03/08/25 at 09:30; Stop 03/08/25 at 09:30; Status DC Epinephrine HCl 10 mg/Sodium Chloride 250 ml @ 0 mls/hr AD PRN IV; Start 03/08/25 at 09:30; Stop 03/08/25 at 09:30; Status DC Aminocaproic Acid 61013 mg/Sodium Chloride 310 ml @ 25 mls/hr AD IV; Start 03/08/25 at 09:30; Stop 03/08/25 at 09:31; Status DC Calcium Gluconate 1 gm/Sodium Chloride 60 ml @ 200 mls/hr AD PRN IV Last administered on 03/15/25at 20:23; Start 03/08/25 at 09:30; Stop 04/07/25 at 09:29 Magnesium Sulfate 50 ml @ 12.5 mls/hr AD PRN IV Last administered on 03/12/25at 22:19; Start 03/08/25 at 09:30; Stop 04/07/25 at 09:29 Potassium Chloride 100 ml @ 100 mls/hr AD PRN IV Last administered on 03/09/25at 05:37; Start 03/08/25 at 09:30; Stop 04/07/25 at 09:29 Potassium Phosphate 250 ml @ 42 mls/hr AD PRN IV Last administered on 03/09/25at 08:23; Start 03/08/25 at 09:30; Stop 04/07/25 at 09:29 Albumin Human 250 ml @ 0 mls/hr AD PRN IV Last administered on 03/08/25at 18:48; Start 03/08/25 at 09:30; Stop 03/08/25 at 18:48; Status DC Acetaminophen 650 mg Q4H PRN PO; Start 03/08/25 at 09:30; Stop 03/08/25 at 09:29; Status DC Insulin Human Regular 100 unit/ Sodium Chloride 100 ml @ 0 mls/hr AD IV Last administered on 03/09/25at 16:20; Start 03/08/25 at 09:30; Stop 03/10/25 at 09:29; Status DC Cefazolin Sodium 2 gm Q8H IVPB Last administered on 03/09/25at 06:06; Start 03/08/25 at 14:30; Stop 03/09/25 at 06:31; Status DC Tramadol HCl 50 mg Q6H PRN PO; Start 03/08/25 at 09:30; Stop 03/13/25 at 09:29; Status DC Tramadol HCl 100 mg Q6H PRN PO; Start 03/08/25 at 09:30; Stop 03/13/25 at 09:29; Status DC Famotidine 20 mg BID IV Last administered on 03/10/25at 08:16; Start 03/08/25 at 21:00; Stop 03/10/25 at 20:59; Status DC Sodium Bicarbonate 50 meq AD PRN IV Last administered on 03/10/25at 04:56; Start 03/08/25 at 09:30; Stop 03/11/25 at 09:29; Status DC Dextrose 50 ml AD PRN IV Last administered on 03/10/25at 00:44; Start 03/08/25 at 09:30; Stop 04/07/25 at 09:29 Glucagon 1 mg AD PRN IM; Start 03/08/25 at 09:30; Stop 04/07/25 at 09:29 Lidocaine HCl 100 mg STK-MED ONCE .ROUTE; Start 03/08/25 at 10:18; Stop 03/08/25 at 10:18; Status DC Cefazolin Sodium 2 gm STK-MED ONCE IVPB Last administered on 03/08/25at 08:40; Start 03/08/25 at 08:40; Stop 03/08/25 at 11:34; Status DC Cefazolin Sodium 1 gm STK-MED ONCE IRRIG Last administered on 03/08/25at 09:22; Start 03/08/25 at 09:22; Stop 03/08/25 at 11:34; Status DC Heparin Sodium (Porcine) 5,000 unit STK-MED ONCE IRRIG Last administered on 03/08/25at 09:22; Start 03/08/25 at 09:22; Stop 03/08/25 at 11:34; Status DC Papaverine HCl 60 mg STK-MED ONCE IRRIG Last administered on 03/08/25at 09:53; Start 03/08/25 at 09:53; Stop 03/08/25 at 11:34; Status DC Heparin Sodium (Porcine) 10,000 unit STK-MED ONCE .ROUTE; Start 03/08/25 at 12:20; Stop 03/08/25 at 12:21; Status DC Epinephrine HCl 1 mg STK-MED ONCE .ROUTE; Start 03/08/25 at 12:30; Stop 03/08/25 at 12:30; Status DC Lidocaine HCl 100 mg STK-MED ONCE .ROUTE; Start 03/08/25 at 12:42; Stop 03/08/25 at 12:42; Status DC Sodium Bicarbonate 100 ml @ As Directed STK-MED ONCE .ROUTE; Start 03/08/25 at 12:45; Stop 03/08/25 at 12:45; Status DC Amiodarone HCl 360 mg/Dextrose 207.2 ml @ 33.3 mls/hr AD IV; Start 03/08/25 at 13:00; Stop 03/08/25 at 12:52; Status DC Amiodarone HCl 360 mg/Dextrose 207.2 ml @ 33.3 mls/hr AD IV; Start 03/08/25 at 13:00; Stop 03/08/25 at 12:52; Status DC Amiodarone HCl 540 mg/Dextrose 310.8 ml @ 16.7 mls/hr [id number] STAT IV Last administered on 03/08/25at 16:44; Start 03/08/25 at 12:45; Stop 03/08/25 at 20:15; Status DC Cardioplegic Solution 0 ml @ As Directed STK-MED ONCE IV; Start 03/08/25 at 12:48; Stop 03/08/25 at 12:49; Status DC Amiodarone HCL/ Dextrose 200 ml @ 0 mls/hr ONCE ONCE IV; Start 03/08/25 at 13:00; Stop 03/08/25 at 13:01; Status DC Sodium Bicarbonate 100 ml @ As Directed STK-MED ONCE .ROUTE; Start 03/08/25 at 12:50; Stop 03/08/25 at 12:51; Status DC Heparin Sodium (Porcine) 10,000 unit STK-MED ONCE .ROUTE; Start 03/08/25 at 13:03; Stop 03/08/25 at 13:03; Status DC Potassium Chloride 300 ml @ As Directed STK-MED ONCE IV; Start 03/08/25 at 13:07; Stop 03/08/25 at 13:07; Status DC Sodium Bicarbonate 50 ml @ As Directed STK-MED ONCE .ROUTE; Start 03/08/25 at 13:33; Stop 03/08/25 at 13:33; Status DC Cefazolin Sodium 1 gm STK-MED ONCE .ROUTE; Start 03/08/25 at 14:38; Stop 03/08/25 at 14:39; Status DC Albumin Human 500 ml @ As Directed STK-MED ONCE IV; Start 03/08/25 at 14:43; Stop 03/08/25 at 14:43; Status DC Ipratropium [place] 0.5 mg STK-MED ONCE IH Last administered on 03/08/25at 15:50; Start 03/08/25 at 15:24; Stop 03/08/25 at 15:24; Status DC Ipratropium [place] 0.5 MG ONCE ONCE IH; Start 03/08/25 at 15:15; Stop 03/08/25 at 15:51; Status DC Albumin Human 50 ml @ 999 mls/hr Q6H IV Last administered on 03/09/25at 10:10; Start 03/08/25 at 17:00; Stop 03/09/25 at 11:02; Status DC Vasopressin 40 units/Sodium Chloride 40 ml @ 0 mls/hr PROTOCOL IV Last administered on 03/10/25at 19:26; Start 03/08/25 at 17:00; Stop 04/07/25 at 16:59 Albumin Human 250 ml @ 0 mls/hr AD IV Last administered on 03/09/25at 08:36; Start 03/08/25 at 19:00; Stop 03/10/25 at 06:44; Status DC Atropine Sulfate 1 mg STK-MED ONCE IVP Last administered on 03/08/25at 19:47; Start 03/08/25 at 19:22; Stop 03/08/25 at 19:22; Status DC Albumin Human 500 ml @ 0 mls/hr AD IV Last administered on 03/09/25at 11:35; Start 03/08/25 at 20:00; Stop 03/09/25 at 15:49; Status DC Norepinephrine Bitartrate 250 ml @ As Directed STK-MED ONCE IV; Start 03/08/25 at 22:56; Stop 03/08/25 at 22:56; Status DC Norepinephrine Bitartrate PER PROTOCOL PROTOCOL IV Last administered on 03/11/25at 19:17; Start 03/08/25 at 23:30; Stop 04/07/25 at 23:29 Albumin Human 500 ml @ 0 mls/hr AD IV Last administered on 03/10/25at 18:06; Start 03/09/25 at 22:00; Stop 03/14/25 at 21:59; Status DC Phytonadione 10 mg/Sodium Chloride 51 ml @ 100 mls/hr Q24H IVPB Last administered on 03/12/25at 00:27; Start 03/10/25 at 01:00; Stop 03/12/25 at 01:31; Status DC Furosemide 100 mg/ Sodium Chloride 100 ml @ 0 mls/hr PROTOCOL IV Last administered on 03/12/25at 05:11; Start 03/10/25 at 08:00; Stop 03/12/25 at 16:41; Status DC Sodium Zirconium Cyclosilicate 10 gm ONCE ONCE PO Last administered on 03/10/25at 08:15; Start 03/10/25 at 08:00; Stop 03/10/25 at 08:01; Status DC Piperacillin Sod/ Tazobactam Sod 3.375 gm Q8H IVPB Last administered on 03/15/25at 18:12; Start 03/10/25 at 10:30; Stop 03/20/25 at 10:29 Sodium Chloride 50 ml AD IV; Start 03/10/25 at 10:30; Stop 03/10/25 at 16:27; Status DC Prothrombin Complex Concent (Human) 500 unit ONCE IV; Start 03/10/25 at 12:00; Stop 03/10/25 at 12:24; Status DC Sodium Zirconium Cyclosilicate 10 gm ONCE ONCE PO Last administered on 03/10/25at 12:53; Start 03/10/25 at 13:00; Stop 03/10/25 at 13:01; Status DC Fentanyl Citrate 50 mcg ONCE ONCE IVP Last administered on 03/10/25at 16:51; Start 03/10/25 at 16:30; Stop 03/10/25 at 16:31; Status DC Lidocaine HCl 20 ml STK-MED ONCE .ROUTE Last administered on 03/10/25at 18:03; Start 03/10/25 at 16:38; Stop 03/10/25 at 16:38; Status DC Sodium Bicarbonate 25 meq/Dextrose 1,000 ml @ 0 mls/hr Q0M PRN IVP Last administered on 03/15/25at 05:29; Start 03/10/25 at 22:30; Stop 04/09/25 at 22:29 Dextrose 1,000 ml @ 50 mls/hr Q20H IV Last administered on 03/11/25at 19:15; Start 03/10/25 at 23:30; Stop 03/12/25 at 05:51; Status DC Sodium Zirconium Cyclosilicate 10 gm ONCE ONCE PO Last administered on 03/11/25at 07:10; Start 03/11/25 at 07:00; Stop 03/11/25 at 07:03; Status DC Sodium Zirconium Cyclosilicate 10 gm ONCE ONCE PO Last administered on 03/11/25at 11:53; Start 03/11/25 at 12:00; Stop 03/11/25 at 12:01; Status DC Metolazone 2.5 mg ONCE ONCE PO Last administered on 03/11/25at 13:01; Start 03/11/25 at 13:00; Stop 03/11/25 at 13:01; Status DC Sodium Zirconium Cyclosilicate 10 gm ONCE ONCE PO Last administered on 03/11/25at 16:27; Start 03/11/25 at 16:00; Stop 03/11/25 at 16:01; Status DC Dextrose 1,000 ml @ 0 mls/hr Q0M PRN IV; Start 03/12/25 at 06:00; Stop 04/09/25 at 23:29 Sodium Zirconium Cyclosilicate 10 gm ONCE ONCE PO Last administered on 03/12/25at 09:08; Start 03/12/25 at 09:00; Stop 03/12/25 at 09:04; Status DC Vitamin B Complex 1,000 mcg DAILY PO Last administered on 03/15/25at 08:17; Start 03/12/25 at 15:30; Stop 04/11/25 at 15:29 Folic Acid 1 mg DAILY PO Last administered on 03/15/25at 08:17; Start 03/12/25 at 15:30; Stop 04/11/25 at 15:29 Dexamethasone Sodium Phosphate 20 mg Q24H IV; Start 03/12/25 at 15:30; Stop 03/12/25 at 15:18; Status DC Iron Sucrose 300 mg/Sodium Chloride 250 ml @ 83 mls/hr Q24H IV; Start 03/12/25 at 15:30; Stop 03/14/25 at 18:31; Status Cancel Dexamethasone Sodium Phosphate 20 mg/Sodium Chloride 50 ml @ 100 mls/hr Q24H IV Last administered on 03/15/25at 14:36; Start 03/12/25 at 15:30; Stop 04/11/25 at 15:29 Lactulose 20 gm BID PRN PO; Start 03/12/25 at 16:30; Stop 03/12/25 at 16:20; Status DC Iron Sucrose 300 mg/Sodium Chloride 250 ml @ 83 mls/hr HS IV Last administered on 03/14/25at 19:55; Start 03/12/25 at 21:00; Stop 03/15/25 at 00:01; Status DC Polyethylene Glycol 17 gm DAILY PO Last administered on 03/14/25at 09:26; Start 03/13/25 at 09:00; Stop 04/12/25 at 08:59 Lactulose 20 gm BID PO Last administered on 03/15/25at 20:24; Start 03/12/25 at 21:00; Stop 04/11/25 at 20:59 Sodium Chloride 1,000 ml @ 0 mls/hr ONCE IV; Start 03/12/25 at 18:00; Stop 03/13/25 at 13:09; Status DC Fentanyl Citrate 1000 mcg/Sodium Chloride 120 ml @ 0 mls/hr AD PRN IV; Start 03/13/25 at 02:30; Stop 03/13/25 at 02:16; Status DC Fentanyl Citrate 100 ml @ 0 mls/hr PROTOCOL IV Last administered on 03/13/25at 02:29; Start 03/13/25 at 02:30; Stop 03/20/25 at 02:29 Dexmedetomidine HCl 400 mcg/ Sodium Chloride 100 ml @ 0 mls/hr AD PRN IV; Start 03/13/25 at 08:00; Stop 03/13/25 at 07:42; Status DC Dexmedetomidine/ Sodium Chloride 400 mcg PROTOCOL IV Last administered on 03/15/25at 09:49; Start 03/13/25 at 08:00; Stop 04/12/25 at 07:59 Heparin Sodium/ Dextrose 250 ml @ 0 mls/hr Q6H IV Last administered on 03/13/25at 10:42; Start 03/13/25 at 10:30; Stop 03/14/25 at 08:09; Status DC Sodium Chloride 1,000 ml @ 0 mls/hr ONCE IV Last administered on 03/15/25at 10:20; Start 03/13/25 at 13:30; Stop 04/12/25 at 13:29 Albumin Human 100 ml NOW IV; Start 03/13/25 at 13:30; Stop 03/14/25 at 13:29; Status DC Albumin Human 100 ml @ As Directed STK-MED ONCE IV Last administered on 03/13/25at 13:41; Start 03/13/25 at 13:25; Stop 03/13/25 at 13:25; Status DC Epoetin Nelson-epbx 10,000 unit ONCE ONCE SQ Last administered on 03/13/25at 14:41; Start 03/13/25 at 14:00; Stop 03/13/25 at 14:01; Status DC Pharmacy Profile Note 1 each ONCE MISC; Start 03/14/25 at 08:00; Stop 03/14/25 at 12:36; Status DC Sodium Bicarbonate 100 meq ONCE ONCE IV Last administered on 03/14/25at 12:03; Start 03/14/25 at 12:00; Stop 03/14/25 at 12:02; Status DC Argatroban 250 mg/ Sodium Chloride 250 ml @ 0 mls/hr PROTOCOL IV Last administered on 03/14/25at 17:33; Start 03/14/25 at 13:00; Stop 04/13/25 at 12:59 Multi-Ingred Cream/Lotion/Oil/ Oint 1 APPL HS OU Last administered on 03/15/25at 20:24; Start 03/14/25 at 21:00; Stop 04/13/25 at 20:59 Sodium Bicarbonate 100 meq ONCE ONCE IV Last administered on 03/15/25at 00:24; Start 03/15/25 at 00:30; Stop 03/15/25 at 00:31; Status DC Albumin Human 100 ml ONCE IV Last administered on 03/15/25at 10:16; Start 03/15/25 at 10:00; Stop 03/16/25 at 09:59 Sodium Zirconium Cyclosilicate 10 gm ONCE ONCE PO Last administered on 03/15/25at 11:03; Start 03/15/25 at 11:30; Stop 03/15/25 at 11:31; Status DC Insulin Glargine 10 units BID@0730,2100 SQ; Start 03/15/25 at 21:00; Stop 04/14/25 at 20:59 Insulin Human Regular INSULIN SLIDING SCAL... Q6H6 SQ Last administered on 03/15/25at 11:05; Start 03/15/25 at 12:00; Stop 04/14/25 at 11:59 Calcium Gluconate 1 gm/Sodium Chloride 110 ml @ 110 mls/hr ONCE ONCE IV Last administered on 03/15/25at 13:10; Start 03/15/25 at 12:00; Stop 03/15/25 at 12:59; Status DC Dextrose 25 ml ONCE ONCE IV Last administered on 03/15/25at 13:29; Start 03/15/25 at 12:00; Stop 03/15/25 at 12:02; Status DC Bumetanide 2 mg ONCE ONCE IM; Start 03/15/25 at 12:30; Stop 03/15/25 at 12:31; Status DC Insulin Human Lispro 10 unit ONCE ONCE SQ; Start 03/15/25 at 13:00; Stop 03/15/25 at 13:01; Status DC Bumetanide 2 mg ONCE ONCE IVP Last administered on 03/15/25at 13:34; Start 03/15/25 at 13:30; Stop 03/15/25 at 13:33; Status DC Insulin Human Regular 10 unit TIDAC IV Last administered on 03/15/25at 13:36; Start 03/15/25 at 17:00; Stop 03/15/25 at 14:18; Status DC Insulin Human Regular 100 unit/ Sodium Chloride 100 ml @ 0 mls/hr PROTOCOL PRN IV Last administered on 03/15/25at 15:19; Start 03/15/25 at 15:00; Stop 04/14/25 at 14:59 WILIAM ANDREW MD Mar 15, 2025 23:16
[2025-03-16] VITALS (110 sets, daily range): BP systolic 97–160; BP diastolic 73–115; PULSE 79–108; RESP 15–26; TEMP 97.8–98.4; O2SAT 92–98
[2025-03-16 04:33] LABS: NUCLEATED RED BLOOD CELLS 22.1 % (0.0-0.19); PLATELET COUNT (AUTO) 33 K/uL (130-400); RED BLOOD CELL COUNT(AUTO) 3.09 MIL/uL (4.00-5.50); RED CELL DISTRIBUTION WIDTH 15.3 % (11.0-15.5); WHITE BLOOD COUNT (AUTO) 20.1 K/uL (4.8-10.8)
[2025-03-16 05:07] LABS: CREATININE 2.9 mg/dL (0.5-1.0); GLOMERULAR FILTR. RATE CALC 18.0 mL/min (>90); GLUCOSE,RANDOM 161.0 mg/dL (70-105); SODIUM SERUM 142.0 mmol/L (136-145); TOTAL PROTEIN, SERUM 5.3 g/dL (6.0-8.3); UREA NITROGEN, BLOOD 67.0 mg/dL (7-18)
[2025-03-16 05:23] LABS: ASPARTATE AMINOTRANSFERASE 1483.0 U/L (10-37)
--- NOTE | 2025-03-16 07:45 | PN ---
[facility] PROGRESS NOTE Date Patient Seen: Mar 16, 2025 Time of Visit: 07:34 Interval History: Impella assist 5.5, currently on high-dose epinephrine and Impella full support. Overall prognosis is poor. Physical Examination: GENERAL: Intubated, sedated with generalized edema] EYES: [PERRLA, EOMI, conjunctiva and sclera normal.] NECK: [Supple without JVD. There is no tenderness, lymphadenopathy, or masses. No thyromegaly. Normal carotid upstrokes without bruits.] LUNGS: [Ventilated breath sounds bilaterally. With crackles over lower lobes. No wheezes, or rhonchi.] HEART: [Normal rate and rhythm. Normal S1 and S2 without murmurs, gallop or rub.] VASC: [Peripheral pulses palpable and thready over LLE.] ABD: [Bowel sounds normal, soft, nontender, no masses, no organomegaly. No audible bruits.] : [Not examined] LYMPH: [No lymphadenopathy noted.] EXT: [No clubbing, cyanosis or edema. Right BKA with large edematous blistering of her stump] SKIN: [No rashes or lesions noted.] NEURO: [ Gag reflex and DTR intact.] Laboratory: [ ] Hematology Labs: Test 03/16/25 04:00 03/15/25 19:29 03/15/25 09:30 Range/Units White Blood Count 20.1 H 4.8-10.8 K/uL Red Blood Count 3.09 L 4.00-5.50 MIL/uL Hemoglobin 9.8 L 12.0-16.0 g/dL Hematocrit 26.9 L 36-48 % Mean Corpuscular Volume 87.1 79-99 fL Mean Corpuscular Hemoglobin 31.7 27.0-33.0 pg Mean Corpuscular Hemoglobin Concent 36.4 H 32.0-36.0 g/dL Red Cell Distribution Width 15.3 11.0-15.5 % Platelet Count 33 #L 130-400 K/uL Mean Platelet Volume 7.5-10.5 fL Nucleated Red Blood Cells 22.1 H 0.0-0.19 % Immature Granulocyte % (Auto) 3.7 H 0-1 % Neutrophils (%) (Auto) 88.5 H 40.0-77.0 % Lymphocytes (%) (Auto) 4.5 L 21.0-51.0 % Monocytes (%) (Auto) 2.6 L 3.0-13.0 % Eosinophils (%) (Auto) 0.1 0.0-8.0 % Basophils (%) (Auto) 0.6 0.0-5.0 % Neutrophils # (Auto) 19.1 H 1.8-7.7 K/uL Lymphocytes # (Auto) 1.0 1.0-4.8 K/uL Monocytes # (Auto) 0.6 0.1-1.0 K/uL Eosinophils # (Auto) 0.03 0.00-0.70 K/uL Basophils # (Auto) 0.13 0.00-0.20 K/uL Absolute Immature Granulocyte (auto 0.81 0-1 K/uL White Cell Morphology Comment See comments Segmented Neutrophils % 89 H 40-70 % Band Neutrophils % 1 0-2 % Lymphocytes % (Manual) 4 L 22-44 % Monocytes % (Manual) 5 2-9 % Differential Comment MANUAL DIFFERENTIAL Reactive Lymphocytes 1 H 0-0 % Platelet Morphology Comment MARKED DECREASE Red Blood Cell Morphology See comments Chemistry Labs: Test 03/16/25 07:23 03/16/25 04:00 Range/Units Whole Blood Glucose 151 H 70-110 MG/DL Sodium Level 142 136-145 mmol/L Potassium Level 3.7 3.5-5.1 mmol/L Chloride Level 100 L 101-111 mmol/L Carbon Dioxide Level 28 21-32 mmol/L Blood Urea Nitrogen 67 #H 7-18 mg/dL Creatinine 2.9 H 0.5-1.0 mg/dL Glomerular Filtration Rate Calc 18 >90 mL/min Random Glucose 161 H 70-105 mg/dL Total Calcium 8.3 L 8.5-10.1 mg/dL Magnesium Level 2.30 1.80-2.40 mg/dL Total Bilirubin 7.8 H 0.2-1.0 mg/dL Aspartate Amino Transf (AST/SGOT) 1483 *H 10-37 U/L Alanine Aminotransferase (ALT/SGPT) 658 #*H 12-78 U/L Alkaline Phosphatase 258 H 50-136 U/L Total Protein 5.3 L 6.0-8.3 g/dL Albumin 2.6 L 3.5-5.0 g/dL Coagulation Labs: Test 03/16/25 04:00 6/30/25 19:29 Range/Units Activated Partial Thromboplast Time 68.9 H 26.3-35.5 SEC Prothrombin Time 26.6 #H 9.6-11.6 SEC Prothromb Time International Ratio 2.78 H 0.85-1.15 Diagnostics / Radiology: [Copy/Paste Echos/Imaging Report here] Impression and Plan: 1. Unstable Angina s/p 4vCABG on 03/08/2025 2. Remote anterior wall myocardial infarction July 2024 complicated by cardiogenic shock requiring Impella support for PCI with subsequent ischemic leg requiring [id number] amputation 3. CAD status post stenting of the proximal LAD proximal circumflex and mid circumflex artery 4. Diabetes mellitus type 2 5. Dyslipidemia 6. Hypertension 7. Cardiogenic Shock 8. Anemia] # Severe 2v CAD: The patient presented with chest pain ACS has been ruled out. Lexiscan stress test revealed anterior ischemia 2D echocardiogram revealed a hypokinetic anteroseptal and anterolateral wall. LVEF 40-45% (unchanged from prior July 2024) Coronary angiogram on 03/01/2025 revealed severe two-vessel CAD. CV surgery was consulted and pt is s/p 4v CABG (03-08-25) Following the procedure patient became hypotensive while in the OR, and pt was found to have a nonfunctional GOLDSTEIN , Impella was inserted for MCS and SVG to LAD was placed Current grafts ( SVG-LAD , SVG -Diag, SVG-LPLB, and SVG-RCA) Cardiogenic shock requiring pressors on Impella full support at P7 Continue Asa 81mg qd. Hold statins , due to LFT elevation Rest of care by CV surgery #Thrombocytopenia Transfuse PRBC to a HGb>7. Hb 9.4 hr. 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 Hematology has been consulted. Patient on agatroban # Cardiogenic shock: S/p 4vCABG complicated by a nonfucntional GOLDSTEIN. INTERMACS 2 s/p ( SVG-LAD , SVG -Diag, SVG-LPLB, and SVG-RCA) on 03/08/2025 Impella support at p7 Shock liver: LFTs improving Chest tube output 500 ml overnight TTE preop LVEF 40-45% with anteroseptal hypokiensis. Defer GDMT until off pressors #Acute renal failure Renal function is worsening , Nephrology has been consulted Tolerating intermittent dialysis Thank you for this consult, cardiology will continue to follow along ,post operatively. MD JESSY Arora DANIELLE M MD Mar 16, 2025 07:45
--- NOTE | 2025-03-16 08:44 | PN ---
[facility] PROGRESS NOTE Date of Service: Mar 16, 2025 Time of Service: 08:40 SUBJECTIVE: admission date: 02/24/25 PCP: Agnieszka Shi DO chief complaint: Chest pain Primary field sales representative: Dr Jefry Osorio This is a 59-year-old female presents in ED with chief complaints of chest pain. Onset started this morning at 2:00 a.m. patient was awaken with chest pain. Reports she has been having chest pain for a week. Location midsternal does not radiate,location midsternal stated the pain on arrival was 10/10 on pain scale. aggravated none: alleviating factors: none. Patient denies palpitation, dizziness, shortness for breath. 12 lead EKG on arrival showed heart rate [address] depression in the lateral Leads. As per ED physician changes in V5 and V6 were not seen in December 2024. Presence of LVH noted anterior STT wave changes were also. ER initiated heparin drip. Was given Full dose Aspirin and Morphine 2 mg IV x1. Troponin 1st set was negative. 02/25/25 patient was seen earlier patient reports she had chest pain overnight 3:00 a.m. patient was given nitroglycerin: continue on Heparin drip; Echo pending no chest pain at this time. she is fully alert oriented x3. 02/26/25 2D echocardiogram revealed a hypokinetic anteroseptal and anterolateral wall. LVEF 40-45%, the patient denies any cardiac symptoms or chest pain. Dr Osorio recommendations: lexiscan in am medical management for now ASA 81 mg daily , Prasugrel 10 mg daily ,Atorvastatin 40 mg daily, Imdur 30 mg daily changed Toprol XL to 25 mg daily patient is fully awake alert oriented x3. out of bed to chair with meals. Denied chest pain palpitation dyspnea. 02/27/25 patient is seen and examined patient underwent Lexiscan pending results. We will continue to monitor patient closely. She is asleep and waking per verbal stimuli primary nurse reports she was having GI problems post Lexiscan. 02/28/25 s/p Lexiscan Reversible large defect in the anterior, septal lucas. TID 1.19. LVEF 39%. Dr Osorio scheduled the patient for Left Heart cath tomorrow. The patient denies chest pain palpitation dyspnea. 03/01/25 patient was evaluated this continues without chest pain or palpitations patient had a Lexiscan stress test is PCI this after the. Patient NPO after breakfast. 03/02 patient was seen by nurse practitioner and physician during rounding in room 429. Patient is s/p left heart catheterization 03/01/[address] Jefry osorio and at this moment he is recommending cardiovascular surgeon for possible CABG evaluation. Once patient will be medically stable we will consult [facility] for evaluation. Continue one-to-one sitter for now. Continue to monitor patient in the meantime. A.m. labs 03/03 patient was seen by nurse practitioner physician during rounding. Patient was seen by cardiovascular surgeon and is pending CABG as per note at the end of this week. As per RN patient's blood pressure has been on lower side. We will order midodrine 10 mg p.r.n. t.i.d. for systolic less than 100. As per field sales representative Dr. Jefry osorio who was rounding okay with the above-stated medicine. We will continue to monitor patient in the meantime. A.m. labs. 03/04 patient was seen by nurse practitioner and physician during rounding. Patient was evaluated by the cardiovascular surgeon and he is came to perform CABG once the patient will be off Effient for 5 to 7 days. Last dose that was administered to the patient of Effient 10 mg was given on 03/01/2025 at 12:16 p.m. we will continue to monitor patient in the meantime. A.m. labs 03/05 patient was seen by nurse practitioner and physician during rounding in room 429. Patient is pending CABG once 5 to 7 days of Effient on hold we will be completed. WBC 7.3. Electrolyte replaced per protocol. Patient denies any shortness of breath, chest pain, nausea, vomiting or any other discomfort at this moment. We will continue to monitor patient in the meantime. A.m. labs 03/06/2025 - patient is seen in room 429, patient had an episode of intermittent chest pain on exertion when she went to the washroom. Chest pain relieved with sublingual nitro, troponin and EKG were ordered which were normal. Ordered packager hand cortisol, we will follow up with the lab. Patient to be scheduled for CABG. Heart rate currently on the lower side around 50s - 60s. Patient is asymptomatic otherwise, we will follow the patient closely. 03/07 patient was seen by nurse practitioner physician during rounding in room 429. Patient is pending CABG by cardiovascular surgeon possibly tomorrow 03/08/2025. During evaluation patient denies any shortness of breath, chest pain, nausea, vomiting or any other discomfort. Patient will receive a dose of potassium. We will continue to monitor patient in the meantime. A.m. labs 03/08 patient was seen by nurse practitioner and physician during rounding in room 213. Patient is s/p CABG. No family members at the bedside at this moment. We will continue to monitor patient in the meantime. A.m. labs 03/09 was seen by nurse practitioner and physician during rounding in room 213. Patient is s/p CABG day 1. Due to hypotension and cardiogenic shock Impella was placed. Chest tube output within 24 hours 2 L. currently patient is on three pressor support requiring mechanical ventilation support. Peak 55, peep eight 50% O2. Urine output 850 cc. No family members at the bedside. We will continue CV surgery recommendation We will continue to monitor patient in the meantime. A.m. labs 03/10 patient was seen by nurse practitioner and physician during rounding in room 213. Patient continues to be intubated. Chest tube is draining about 10 to 20 mL/hour. Urine output about 5 to 10 mL/hour. Patient was placed on Lasix drip 10 milligrams/hour. Nephrology consulted for ARIADNE. Patient continues to be on epi, levo and vasopressor. Patient also experience a temperature of 103 last night blood culture were ordered patient was placed on Zosyn for now. We will continue to monitor patient in the meantime. A.m. 03/11 patient was seen by nurse practitioner physician during rounding in room 213. Patient continues to be intubated. Rate 18 Peak 60 tidal volume 580 peep eight 0 2% at 75%. Total output from the chest tube on the right within 24 hours was 550. There is a new left chest tube that was put in yesterday 03/10/2025 and total output as of now it is 820. Urine outpu 800t 150 bypass 24 hours. Patient continues to be on Lasix drip 10 milligrams/hour. Continue epi, levo, vasopressor [place]. [place] [address]131 ALT 2651 CK 3243. We will continue to monitor patient in the meantime. A.m. labs 03/12 patient was seen by [employer] and physician. Patient is still intubated. Urine output less than 5 mL per hour. 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 Platelets 23. Patient continues to be on Lasix 10 milligrams/hour. Continue epi, levo. Patient was weaned off of vasopressor. Left chest tube drain about 30 mL in the last 24 hours. Right pleural chest drain about 500 mL in the past 24 hours. Patient is pending JOSIE and chest x-ray today. No family members at the bedside. Continue Zosyn. WBC 7.9. Bilirubin 11 AST 5742 ALT 1752 CK 4964. Final urine culture negative. Blood culture no growth in last 24 hours. Cont inue to monitor patient. A.m. labs 03/13 Patient is seen at the bedside. She remains on mechanical ventilation. Impella in place with flow rate of 4.3-4.5 liter/minute. Sedated currently on Precedex 0.4 mcg/kg per hour. Mediastinal Chest tube drainage of 110 mL noted today. Urine output 115 mL. Her left lower extremity appears Pale and mottled, cold to touch and has an absent dorsalis pedis pulse. We will order an arterial ultrasound to assess the blood flow and she is started on heparin protocol by CTS consult. Fluid collection is noted around rt BKA site. Wound care consult recommended no further interventions. Hemoglobin 7.3 on IV Venofer as per Hematology consult, platelets 16840 post 2 unit platelet transfusion, PT 14.5, INR 1.42, BUN 52 , creatinine 3, potassium 5.3, direct bilirubin 8.8, AST improved from to 5130-0449, ALT improved from 907-850, TCK improved from 4964 to 4327, alkaline phosphatase 226. 1 L of fluid is removed during dialysis session yesterday. She is due for another dialysis session today. 03.14.25: Patient remains on mechanical ventilation: SIMV-TV 550 ml/RR 18 breaths/min, PEEP 8cm H2O,FiO2 50%. . Impella in place on left upper arm - set to P8 . Patient is sedated with Precedex . Mediastinal chest tube drained 370 ml in last 24 hours.Urine output 10 ml - patient is receiving hemodialysis - 3rd session consecutively today . Patient's Rt BKA stump, left foot , rt and left hands shows erythema with blebs and mottling on the skin suggestive of worsening ischemia and is cold to touch .US doppler LLE shows peripheral arterial disease . [place] [address]- Heparin is discontinued and she is started on Argatroban by Dr Najera . Liver function parameters show minimal improvement . Epinephrine and Vasopressin is d/c'd and she continues on Levophed. Foleys catheter and Gretna Shantelle catheter has been discontinued . Picc line is to be placed as per Dr Najera . Overall , patient is critical and her prognosis is guarded . I talked to her son and daughter at around 6 pm today and updated them of the patients clinical condition in detail. All questions were answered and they confirms understanding that the patient's condition is critical and prognosis is guarded. 03/15 patient remains admitted to the ICU, she remains intubated, on mechanical ventilation, on epinephrine drip. Upon physical examination, patient's Rt BKA stump, left foot , rt and left hands shows erythema with blebs and mottling on the skin suggestive of worsening ischemia and is cold to touch. US doppler LLE shows peripheral arterial disease. Blood pressure 120/87, heart rate of 55, saturating 100% on mechanical ventilation, FiO2 50%. CBC shows hemoglobin 9.9, hematocrit 29.1, WBC 15.7, platelet count of 28. CMP with sodium 142, potassium 5.5, BUN of 69, creatinine 3.5, liver enzymes elevated with an AST of 2241, ALT of 842, alkaline phosphatase of 229, total CK 4 x 2327. ABG with pH 7.35, pCO2 of 40, PO2 45, bicarb of 22. Chest x-ray shows bilateral airspace disease with trace bilateral pleural ef fusion, more prominent on the right, change, mild stable pulmonary vascular congestion, ET tube tip 4.2 cm from karl, multiple to sell catheters in place, unchanged. Overall condition of the patient remains unchanged, her prognosis is poor and guarded. Per discussion with the RN, Cardiothoracic surgeon to meet with the family to discuss goals of care today. 03/16 patient remains admitted to the ICU, intubated, mechanical ventilation, BP 120/108, heart rate of 86, saturating 99% on mechanical ventilation, FiO2 of 60%. CBC with a persistent leukocytosis of 20.1, hemoglobin 9.8, hematocrit 26.9, platelet count of 33. Sodium 142, potassium 3.7, BUN 67, creatinine 2.9, AST of 1483, ALT of 658, alkaline phosphatase 658, albumin of 2.6. ABG shows a pH of 7.55, pCO2 30, PO2 76.8. Echocardiogram 03/14/2030, left ventricular cavity size is normal, Impella device present and we will sitting in the left ventricle, LVEF 30-35%. Cardiothoracic input noted and appreciated, we will continue to monitor. Hematology input noted and appreciated, the patient with a possible heparin induced thrombocytopenia thrombus cytopenia, patient remains on argatroban drip. Patient is started on dexamethasone 20 mg IV daily. Cardiology input noted and appreciated, continue Impella assist device, continue high-dose epinephrine. Physical examination, overall condition remains unchanged, with patient's Rt BKA stump, left foot , rt and left hands showing erythema with blebs and mottling on the skin suggestive of worsening ischemia and is cold to touch. REVIEW OF SYSTEMS: unable to perform PHYSICAL EXAM: GENERAL: critically ill, intubated and mechanically ventilated HEENT: ET tube and OG tube in place. NECK: Supple, no JVD, trachea midline , impella with flow rate of 4-4.5 LUNGS: Sternum bandaged , diminished breath sounds bilaterally. No wheezes, chest tubes in place HEART: Regular rate and rhythm. Normal S1 and S2, without murmurs, chest tube in place ABD: Abdomen soft, nontender. Bowel sounds present EXT: rt BKA, Patient's Rt BKA stump, left foot , rt and left hands shows erythema with blisters and mottling on the skin and is cold to touch NEURO: Deferred. Vital Signs (last 8hr) Date Time Temp Pulse Resp B/P (MAP) Pulse Ox O2 Delivery O2 Flow Rate FiO2 03/16/25 07:45 86 18 128/108 (115) 99 03/16/25 07:30 98.1 Ventilator 60 03/16/25 07:30 86 18 129/108 (115) 99 03/16/25 07:15 85 19 127/108 (114) 98 03/16/25 07:00 60 03/16/25 07:00 85 18 127/108 (114) 98 60 03/16/25 06:45 85 18 127/108 (114) 98 60 03/16/25 06:45 85 40 03/16/25 06:30 85 18 119/103 (108) 96 03/16/25 06:15 85 18 132/111 (118) 92 03/16/25 06:00 84 15 122/102 (109) 92 03/16/25 05:45 83 18 124/102 (109) 95 03/16/25 05:30 84 18 137/108 (118) 95 03/16/25 05:15 84 18 136/108 (117) 93 03/16/25 05:00 84 18 137/108 (118) 94 60 03/16/25 04:45 83 18 136/109 (118) 92 03/16/25 04:36 93 Ventilator+ 60 03/16/25 04:30 84 18 142/111 (121) 93 03/16/25 04:15 82 18 131/108 (116) 90 03/16/25 04:11 60 03/16/25 04:05 97.9 Ventilator 60 03/16/25 04:00 81 18 119/106 (110) 87 60 03/16/25 03:45 80 18 116/102 (107) 89 03/16/25 03:30 85 18 136/114 (121) 92 03/16/25 03:24 85 40 03/16/25 03:15 84 18 132/111 (118) 92 03/16/25 03:00 81 18 113/102 (106) 92 60 03/16/25 02:45 82 18 121/106 (111) 92 03/16/25 02:30 83 26 126/109 (115) 91 03/16/25 02:15 82 127/108 (114) 94 03/16/25 02:00 85 18 138/112 (121) 96 60 03/16/25 01:45 82 18 124/107 (113) 95 03/16/25 01:30 79 18 113/98 (103) 96 03/16/25 01:15 80 26 105/92 (96) 97 03/16/25 01:00 82 17 125/112 (116) 98 03/16/25 00:45 83 18 127/100 (109) 97 03/16/25 00:44 83 40 LABS: Laboratory: Test 03/16/25 07:23 03/16/25 04:00 03/15/25 19:31 03/15/25 19:29 Range/Units Whole Blood Glucose 151 H 70-110 MG/DL White Blood Count 20.1 H 4.8-10.8 K/uL Red Blood Count 3.09 L 4.00-5.50 MIL/uL Hemoglobin 9.8 L 12.0-16.0 g/dL Hematocrit 26.9 L 36-48 % Mean Corpuscular Volume 87.1 79-99 fL Mean Corpuscular Hemoglobin 31.7 27.0-33.0 pg Mean Corpuscular Hemoglobin Concent 36.4 H 32.0-36.0 g/dL Red Cell Distribution Width 15.3 11.0-15.5 % Platelet Count 33 #L 130-400 K/uL Mean Platelet Volume 7.5-10.5 fL Nucleated Red Blood Cells 22.1 H 0.0-0.19 % Activated Partial Thromboplast Time 68.9 H 26.3-35.5 SEC Sodium Level 142 136-145 mmol/L Potassium Level 3.7 3.5-5.1 mmol/L Chloride Level 100 L 101-111 mmol/L Carbon Dioxide Level 28 21-32 mmol/L Blood Urea Nitrogen 67 #H 7-18 mg/dL Creatinine 2.9 H 0.5-1.0 mg/dL Glomerular Filtration Rate Calc 18 >90 mL/min Random Glucose 161 H 70-105 mg/dL Total Calcium 8.3 L 8.5-10.1 mg/dL Magnesium Level 2.30 1.80-2.40 mg/dL Total Bilirubin 7.8 H 0.2-1.0 mg/dL Aspartate Amino Transf (AST/SGOT) 1483 *H 10-37 U/L Alanine Aminotransferase (ALT/SGPT) 658 #*H 12-78 U/L Alkaline Phosphatase 258 H 50-136 U/L Total Protein 5.3 L 6.0-8.3 g/dL Albumin 2.6 L 3.5-5.0 g/dL Blood Gas Specimen Type Arterial Arterial Blood pH 7.559 H 7.350-7.450 Arterial Blood Partial Pressure CO2 30 L 32-45 mmHg Arterial Blood Partial Pressure O2 76.8 L 83.0-108.0 mmHg Arterial Blood HCO3 26.2 21.0-28.0 mmol/L Arterial Blood Oxygen Saturation 95.9 94.0-98.0 % Arterial Blood Base Excess 4.5 H -2.0-3.0 mmol/L Hemoglobin (Blood Gas) 12.3 12.0-16.0 g/dL Sodium (Blood Gas) 138 136-145 MMOL/L Bedside Potassium (Blood Gas) 3.7 3.4-4.5 MMOL/L Bedside Chloride (Blood Gas) 95 L 98-107 MMOL/L Bedside Glucose (Blood Gas) 237 H 65-95 MG/DL Bedside Ionized Calcium (Blood Gas) 1.05 L 1.15-1.33 MMOL/L Bedside Lactic Acid (Blood Gas) 4.90 *H 0.36-0.75 MMOL/L Blood Gas Temperature 37.0 35.5-37.0 CELSIUS Blood Gas Respiration Rate 18.0 min. Blood Gas Vent Mode SIMV PS 10 ROOM AIR FiO2 40.0 % Blood Gas Tidal Volume 550 ml Blood Gas PEEP 5 cm H2O Blood Gas Specimen Comment CARINA RN, AL Immature Granulocyte % (Auto) 3.7 H 0-1 % Neutrophils (%) (Auto) 88.5 H 40.0-77.0 % Lymphocytes (%) (Auto) 4.5 L 21.0-51.0 % Monocytes (%) (Auto) 2.6 L 3.0-13.0 % Eosinophils (%) (Auto) 0.1 0.0-8.0 % Basophils (%) (Auto) 0.6 0.0-5.0 % Neutrophils # (Auto) 19.1 H 1.8-7.7 K/uL Lymphocytes # (Auto) 1.0 1.0-4.8 K/uL Monocytes # (Auto) 0.6 0.1-1.0 K/uL Eosinophils # (Auto) 0.03 0.00-0.70 K/uL Basophils # (Auto) 0.13 0.00-0.20 K/uL Absolute Immature Granulocyte (auto 0.81 0-1 K/uL White Cell Morphology Comment See comments Prothrombin Time 26.6 #H 9.6-11.6 SEC Prothromb Time International Ratio 2.78 H 0.85-1.15 Test 03/15/25 09:30 Range/Units Segmented Neutrophils % 89 H 40-70 % Band Neutrophils % 1 0-2 % Lymphocytes % (Manual) 4 L 22-44 % Monocytes % (Manual) 5 2-9 % Differential Comment MANUAL DIFFERENTIAL Reactive Lymphocytes 1 H 0-0 % Platelet Morphology Comment MARKED DECREASE Red Blood Cell Morphology See comments Current Medications Medications (Trade) Dose Ordered Sig/Toby Route PRN Reason Start Time Stop Time Status Last Admin Dose Admin Acetaminophen (TYLenol 325MG TAB) 650 mg Q4H PRN PO TEMPERATURE GREATER THAN 101.5 02/24/25 07:00 03/26/25 06:59 03/01/25 19:06 650 MG Acetaminophen (TYLenol 325MG TAB) 650 mg Q4H PRN PO MILD PAIN (1-3) 03/02/25 02:30 04/01/25 02:29 03/04/25 10:39 650 MG Acetaminophen (TYLenol 325MG TAB) 650 mg Q4H PRN PO Temp >38.3C(AFTER EXTUBATION) 03/08/25 09:30 03/08/25 09:29 DC Acetaminophen (TYLenol 325MG TAB) 650 mg Q6H PRN PO MILD PAIN (1-3) 03/08/25 09:30 03/08/25 09:36 DC Acetaminophen (TYLenol 650MG SUPPOSITORY) 650 mg Q4H PRN RC Temp >38.3C WHILE INTUBATED 03/08/25 09:30 04/07/25 09:29 Acetaminophen (acetaMINOPHEN) 1,000 mg Q6H6 IV 03/08/25 13:00 03/09/25 12:59 DC 03/09/25 12:00 1,000 MG Albumin Human 50 ml @ 999 mls/hr Q6H IV 03/08/25 17:00 03/09/25 11:02 DC 03/09/25 10:10 999 MLS/HR Albumin Human 250 ml @ 0 mls/hr AD IV 03/08/25 19:00 03/10/25 06:44 DC 03/09/25 08:36 1,200 MLS/HR Albumin Human 250 ml @ 0 mls/hr AD PRN IV IF HEMODYNAMICALLY UNSTABLE 03/08/25 09:30 03/08/25 18:48 DC 03/08/25 18:48 1,200 MLS/HR Albumin Human 500 ml @ 0 mls/hr AD IV 03/08/25 20:00 03/09/25 15:49 DC 03/09/25 11:35 1,200 MLS/HR Albumin Human 500 ml @ 0 mls/hr AD IV 03/09/25 22:00 03/14/25 21:59 DC 03/10/25 18:06 999 MLS/HR Albumin Human (Albumin (Human) 25%) 100 ml NOW IV 03/13/25 13:30 03/14/25 13:29 DC Albumin Human (Albumin (Human) 25%) 100 ml ONCE IV 03/15/25 10:00 03/16/25 09:59 03/15/25 10:16 100 ML Aminocaproic Acid 95175 mg/Sodium Chloride 310 ml @ 25 mls/hr AD IV 03/08/25 09:30 03/08/25 09:31 DC Aminocaproic Acid 23704 mg/Sodium Chloride 480 ml @ 0 mls/hr AD PRN IV BLEEDING CONTROL 03/08/25 07:00 04/07/25 06:59 Amiodarone HCl 360 mg/Dextrose 207.2 ml @ 33.3 mls/hr AD IV 03/08/25 13:00 03/08/25 12:52 DC Amiodarone HCl 360 mg/Dextrose 207.2 ml @ 33.3 mls/hr AD IV 03/08/25 13:00 03/08/25 12:52 DC Amiodarone HCl 540 mg/Dextrose 310.8 ml @ 16.7 mls/hr [id number] STAT IV 03/08/25 12:45 03/08/25 20:15 DC 03/08/25 16:44 16.7 MLS/HR Argatroban 250 mg/ Sodium Chloride 250 ml @ 0 mls/hr PROTOCOL IV 03/14/25 13:00 04/13/25 12:59 03/14/25 17:33 1.26 MLS/HR Aspirin (Aspirin 81mg Chew Tab) 81 mg DAILY PO 02/25/25 09:00 03/01/25 12:33 DC 02/28/25 09:18 81 MG Aspirin (Aspirin 81mg Chew Tab) 81 mg DAILY PO 03/02/25 09:00 04/01/25 08:59 03/15/25 08:18 81 MG Aspirin (Aspirin 81mg Ec Tab) 81 mg DAILY PO 02/24/25 09:00 02/24/25 08:52 DC Atorvastatin Calcium (LIPItor 20MG) 20 mg HS PO 02/24/25 21:00 02/24/25 08:52 DC Atorvastatin Calcium (LIPItor 40MG) 40 mg HS PO 02/24/25 21:00 03/12/25 08:25 DC 03/11/25 20:11 40 MG Calcium Gluconate 1 gm/Sodium Chloride 60 ml @ 200 mls/hr AD PRN IV HYPOCALCEMIA 03/08/25 09:30 04/07/25 09:29 03/15/25 20:23 200 MLS/HR Cefazolin Sodium (Ancef) 2 gm ONCALL IVP 03/07/25 22:00 03/09/25 21:59 DC Cefazolin Sodium (Ancef) 2 gm Q8H IVPB 03/08/25 14:30 03/09/25 06:31 DC 03/09/25 06:06 2 GM Citalopram Hydrobromide (CeleXA 20MG TAB) 10 mg DAILY PO 02/25/25 09:00 03/27/25 08:59 03/10/25 08:16 10 MG Dexamethasone Sodium Phosphate (dexaMETHasone 4MG/ML 1ML VIAL) 20 mg Q24H IV 03/12/25 15:30 03/12/25 15:18 DC Dexamethasone Sodium Phosphate 20 mg/Sodium Chloride 50 ml @ 100 mls/hr Q24H IV 03/12/25 15:30 04/11/25 15:29 03/15/25 14:36 100 MLS/HR Dexmedetomidine HCl 400 mcg/ Sodium Chloride 100 ml @ 0 mls/hr AD PRN IV TITRATE 03/13/25 08:00 03/13/25 07:42 DC Dexmedetomidine/ Sodium Chloride (PRECEdex 400MCG/ 100ML-NS) 400 mcg PROTOCOL IV 03/08/25 09:30 03/09/25 09:29 DC Dexmedetomidine/ Sodium Chloride (PRECEdex 400MCG/ 100ML-NS) 400 mcg PROTOCOL IV 03/13/25 08:00 04/12/25 07:59 03/15/25 09:49 400 MCG Dextrose 1,000 ml @ 0 mls/hr Q0M PRN IV OTHER [SEE ORDER COMMENTS] 03/12/25 06:00 04/09/25 23:29 Dextrose 1,000 ml @ 50 mls/hr Q20H IV 03/10/25 23:30 03/12/25 05:51 DC 03/11/25 19:15 50 MLS/HR Dextrose (D50w) 50 ml AD PRN IV HYPOGLYCEMIA PROTOCOL 03/01/25 12:30 03/09/25 15:51 DC Dextrose (D50w) 50 ml AD PRN IV HYPOGLYCEMIA PROTOCOL 03/08/25 09:30 04/07/25 09:29 03/10/25 00:44 50 ML Docusate Sodium (COLace 100MG CAP) 100 mg BID PO 03/03/25 21:00 03/03/25 16:22 DC Docusate Sodium (COLace 100MG CAP) 100 mg BID PO 03/08/25 21:00 04/07/25 20:59 03/15/25 20:24 100 MG Epinephrine HCl 10 mg/Sodium Chloride 250 ml @ 0 mls/hr AD PRN IV TITRATE 03/08/25 07:00 04/07/25 06:59 03/14/25 07:02 8.5 MLS/HR Epinephrine HCl 10 mg/Sodium Chloride 250 ml @ 0 mls/hr AD PRN IV POST-OP CARDIOVASCULAR ORDERS 03/08/25 09:30 03/08/25 09:30 DC Famotidine (Pepcid 20mg Vial) 20 mg BID IV 03/08/25 21:00 03/10/25 20:59 DC 03/10/25 08:16 20 MG Famotidine (Pepcid 20mg Tab) 20 mg BID PO 02/24/25 09:00 03/09/25 10:34 DC 03/07/25 20:29 20 MG Fentanyl Citrate 100 ml @ 0 mls/hr PROTOCOL IV 03/13/25 02:30 03/20/25 02:29 03/13/25 02:29 0 MLS/HR Fentanyl Citrate 1000 mcg/Sodium Chloride 120 ml @ 0 mls/hr AD PRN IV TITRATE 03/13/25 02:30 03/13/25 02:16 DC Folic Acid (FOLic ACID 1 MG TABLET) 1 mg DAILY PO 03/12/25 15:30 04/11/25 15:29 03/15/25 08:17 1 MG Furosemide (LASix 20MG TAB) 20 mg Q12H PO 03/10/25 09:00 03/10/25 16:28 DC Furosemide (LASix 20MG VIAL) 20 mg Q12H IV 03/09/25 09:00 03/10/25 08:59 DC 03/10/25 01:15 20 MG Furosemide 100 mg/ Sodium Chloride 100 ml @ 0 mls/hr PROTOCOL IV 03/10/25 08:00 03/12/25 16:41 DC 03/12/25 05:11 10 MLS/HR Glucagon (Glucagon 1mg Kit) 1 mg AD PRN IM HYPOGLYCEMIA PROTOCOL 03/01/25 12:30 03/09/25 15:51 DC Glucagon (Glucagon 1mg Kit) 1 mg AD PRN IM HYPOGLYCEMIA PROTOCOL 03/08/25 09:30 04/07/25 09:29 Heparin Sodium/ Dextrose 250 ml @ 0 mls/hr PROTOCOL PRN IV PROTOCOL 02/24/25 06:00 02/25/25 05:59 DC 02/25/25 01:09 7.36 MLS/HR Heparin Sodium/ Dextrose 250 ml @ 0 mls/hr Q6H IV 03/13/25 10:30 03/14/25 08:09 DC 03/13/25 10:42 7.14 MLS/HR Insulin Glargine (LANtus 100 UNITS/ML 10 ML VIAL) 10 units BID@0730,2100 SQ 03/15/25 21:00 04/14/25 20:59 Insulin Human Regular (humuLIN R 100 UNIT/ML 3ML) 10 unit TIDAC IV 03/15/25 17:00 03/15/25 14:18 DC 03/15/25 13:36 10 UNIT Insulin Human Regular (humuLIN R 100 UNIT/ML 3ML) INSULIN SLIDING SCAL... ACHS SQ 02/24/25 11:30 03/08/25 09:15 DC 03/06/25 20:24 6 UNIT Insulin Human Regular (humuLIN R 100 UNIT/ML 3ML) INSULIN SLIDING SCAL... Q6H6 SQ 03/15/25 12:00 04/14/25 11:59 03/15/25 11:05 16 UNIT Insulin Human Regular 100 unit/ Sodium Chloride 100 ml @ 0 mls/hr AD IV 03/08/25 09:30 03/10/25 09:29 DC 03/09/25 16:20 2 MLS/HR Insulin Human Regular 100 unit/ Sodium Chloride 100 ml @ 0 mls/hr PROTOCOL PRN IV ELEVATED BLOOD GLUCOSE 03/15/25 15:00 04/14/25 14:59 03/16/25 02:14 9 MLS/HR Iron Sucrose 300 mg/Sodium Chloride 250 ml @ 83 mls/hr HS IV 03/12/25 21:00 03/15/25 00:01 DC 03/14/25 19:55 83 MLS/HR Iron Sucrose 300 mg/Sodium Chloride 250 ml @ 83 mls/hr Q24H IV 03/12/25 15:30 03/14/25 18:31 Cancel Isosorbide Mononitrate (Imdur 30mg Sr) 30 mg DAILY PO 02/24/25 09:00 03/06/25 11:46 DC 03/06/25 08:13 30 MG Isosorbide Mononitrate (Imdur 30mg Sr) 60 mg DAILY PO 03/07/25 09:00 03/08/25 09:15 DC 03/07/25 08:47 60 MG Ketorolac Tromethamine (ketOROlac troMETHamine) 15 mg Q6H PRN PO MODERATE PAIN (4-6) 03/03/25 18:00 03/03/25 16:22 DC Lactulose (Constulose 20gm/ 30ml Udcup) 20 gm BID PO 03/12/25 21:00 04/11/25 20:59 03/15/25 20:24 20 GM Lactulose (Constulose 20gm/ 30ml Udcup) 20 gm BID PRN PO CONSTIPATION 03/08/25 09:30 04/07/25 09:29 03/12/25 16:26 20 GM Lactulose (Constulose 20gm/ 30ml Udcup) 20 gm BID PRN PO CONSTIPATION 03/12/25 16:30 03/12/25 16:20 DC Magnesium Hydroxide (Milk Of Magnesium 30ml) 30 ml DAILY PRN PO CONSTIPATION 03/08/25 09:30 04/07/25 09:29 Magnesium Sulfate 50 ml @ 12.5 mls/hr AD PRN IV MAG LEVEL LESS THAN 2.0 03/08/25 09:30 04/07/25 09:29 03/12/25 22:19 12.5 MLS/HR Magnesium Sulfate 50 ml @ 0 mls/hr PROTOCOL PRN IV low mag level 02/24/25 09:30 03/09/25 15:49 DC Metoprolol Succinate (TopROL XL) 12.5 mg DAILY PO 02/24/25 09:00 03/06/25 18:49 DC 03/03/25 08:36 12.5 MG Midodrine (PROAMatine 5 MG TABLET) 10 mg TID PO 03/03/25 14:00 03/08/25 09:15 DC 03/07/25 14:38 10 MG Morphine Sulfate (morPHINE 2MG SYG) 0.5 mg Q2H PRN IV MODERATE PAIN (4-6) 03/08/25 09:30 03/09/25 09:29 DC Morphine Sulfate (morPHINE 2MG SYG) 1 mg Q2H PRN IV SEVERE PAIN (7-10) 03/08/25 09:30 03/09/25 09:29 DC Multi-Ingred Cream/Lotion/Oil/ Oint (Artificial Tears Eye Oint) 1 APPL HS OU 03/14/25 21:00 04/13/25 20:59 03/15/25 20:24 1 APPL Nitroglycerin (Nitrostat) 0.4 mg Q5M PRN SL CHEST PAIN 02/24/25 06:00 03/06/25 08:51 DC 03/06/25 08:50 0.4 MG Nitroglycerin/ Dextrose 0 ml @ 0 mls/hr AD IV 03/08/25 09:30 03/11/25 09:29 DC Norepinephrine Bitartrate 250 ml @ 0 mls/hr AD PRN IV TITRATE 03/08/25 07:00 03/08/25 23:13 DC Norepinephrine Bitartrate (Norepineph 16 Mg/250ml NS Premix) PER PROTOCOL PROTOCOL IV 03/08/25 23:30 04/07/25 23:29 03/11/25 19:17 16 MG Norepinephrine Bitartrate 8 mg/ Dextrose 250 ml @ 0 mls/hr AD PRN IV POST-OP CARDIOVASCULAR ORDERS 03/08/25 09:30 03/08/25 09:30 DC Ondansetron HCl (zoFRAN 4MG INJ) 4 mg Q6H PRN IV NAUSEA/VOMITING 03/08/25 09:30 04/07/25 09:29 Pharmacy Profile Note (Pharmacy Communication) 1 each ONCE MISC 03/14/25 08:00 03/14/25 12:36 DC Phytonadione 10 mg/Sodium Chloride 51 ml @ 100 mls/hr Q24H IVPB 03/10/25 01:00 03/12/25 01:31 DC 03/12/25 00:27 100 MLS/HR Piperacillin Sod/ Tazobactam Sod (Zosyn 3.375gm+NS 50ml) 3.375 gm Q8H IVPB 03/10/25 10:30 03/20/25 10:29 03/16/25 02:06 3.375 GM Polyethylene Glycol (MIRalax 3350 17 GM POWD.PACK) 17 gm DAILY PO 03/13/25 09:00 04/12/25 08:59 03/14/25 09:26 17 GM Potassium Phosphate 250 ml @ 42 mls/hr AD PRN IV LOW PHOS LEVEL 03/08/25 09:30 04/07/25 09:29 03/09/25 08:23 42 MLS/HR Potassium Chloride 100 ml @ 50 mls/hr AD PRN IV POTASSIUM PROTOCOL 02/24/25 09:30 03/08/25 09:15 DC Potassium Chloride 100 ml @ 100 mls/hr AD PRN IV POTASSIUM PROTOCOL 02/26/25 11:30 02/27/25 09:49 DC Potassium Chloride 100 ml @ 100 mls/hr AD PRN IV HYPOKALEMIA 03/08/25 09:30 04/07/25 09:29 03/09/25 05:37 100 MLS/HR Potassium Chloride (K-Dur/Klor-Con 20meq) 20 meq AD PRN PO POTASSIUM PROTOCOL 02/26/25 11:30 03/08/25 09:15 DC 03/07/25 05:23 20 MEQ Potassium Chloride (KCl 10% Elixir 20meq/15ml) 20 meq AD PRN PO POTASSIUM PROTOCOL 02/26/25 11:30 03/08/25 09:15 DC Prasugrel (Effient 10mg) 10 mg DAILY PO 02/25/25 09:00 03/01/25 12:54 DC 02/28/25 09:18 10 MG Propofol 100 ml @ 0 mls/hr AD PRN IV SEDATION 03/08/25 09:30 03/12/25 09:29 DC Prothrombin Complex Concent (Human) (Kcentra 500 Unit Kit) 500 unit ONCE IV 03/10/25 12:00 03/10/25 12:24 DC Sodium Bicarbonate 25 meq/Dextrose 1,000 ml @ 0 mls/hr Q0M PRN IVP OTHER [SEE ORDER COMMENTS] 03/10/25 22:30 04/09/25 22:29 03/15/25 05:29 10 MLS/HR Sodium Bicarbonate (Sodium Bicarb 50meq 50ml Vial) 50 meq AD PRN IV OTHER[SEE DOSING INSTRUCTIONS] 03/08/25 09:30 03/11/25 09:29 DC 03/10/25 04:56 100 MEQ Sodium Chloride 500 ml @ 0 mls/hr AD IV 03/08/25 09:30 04/07/25 09:29 03/11/25 02:21 3 MLS/HR Sodium Chloride 1,000 ml @ 0 mls/hr ONCE IV 03/12/25 18:00 03/13/25 13:09 DC Sodium Chloride 1,000 ml @ 0 mls/hr ONCE IV 03/13/25 13:30 04/12/25 13:29 03/15/25 10:20 1,000 MLS/HR Sodium Chloride 1,000 ml @ 10 mls/hr ONCE IV 03/08/25 09:30 03/09/25 09:29 DC Sodium Chloride 1,000 ml @ 150 mls/hr Q6H40M IV 03/01/25 12:30 03/01/25 16:29 DC 03/01/25 19:04 150 MLS/HR Sodium Chloride (NS 50ml) 50 ml AD IV 03/10/25 10:30 03/10/25 16:27 DC Sodium Chloride (NS Flush 10ml) 10 ml Q8H PRN IVP IV LINE FLUSH 03/08/25 09:30 04/07/25 09:29 Tramadol HCl (UltRAM) 50 mg Q6H PRN PO MODERATE PAIN (4-6) 03/08/25 09:30 03/13/25 09:29 DC Tramadol HCl (UltRAM) 100 mg Q6H PRN PO SEVERE PAIN (7-10) 03/08/25 09:30 03/13/25 09:29 DC Vasopressin 40 units/Sodium Chloride 40 ml @ 0 mls/hr PROTOCOL IV 03/08/25 17:00 04/07/25 16:59 03/10/25 19:26 2.4 MLS/HR Vitamin B Complex (Vitamin B-12) 1,000 mcg DAILY PO 03/12/25 15:30 04/11/25 15:29 03/15/25 08:17 1,000 MCG DIAGNOSTICS / RADIOLOGY: [ ] Assessment: Severe 2 vessel CAD -S/P 4v CABG with impella support on 03-08-[address] Barajas Acute on chronic HFmrEF (LVEF: 40-45% by echo done on 02/25/2025, LVEF 30% on 03.14.25) Cardiogenic shock SCAI Stage D with multiorgan dysfunction , not POA - secondary to complex nature of the procedure and preexisting comorbidities . Multiorgan dysfunction including shock Liver , Acute Kidney failure , respiratory failure -post procedure secondary to complex nature of the CABG and preexisting comorbidities . Anemia , Poa Acute blood loss anemia , s/p surgery - expected . Thrombocytopenia-rule out HIT Severe protein calorie malnutrition with muscle atrophy ; BMI 14.2 NOT POA, expected secondary to comorbidities History of Myocardial infarction 2023 Unstable angina s/p Lexiscan Reversible large defect in the anterior, septal lucas. TID 1.19. LVEF 39%. CAD status post stenting of the proximal LAD proximal circumflex and mid circumflex artery as above with documented progression of disease December 2024 managed medically because of concern the patient would not be compliant with dual antiplatelet therapy Remote anterior wall myocardial infarction July 2024 complicated by cardiogenic shock requiring Impella support for PCI with subsequent ischemic leg requiring [id number] amputation Uncontrolled hypertension POA Hyperlipidemia Uncontrolled diabetes mellitus type 2 with hyperglycemia POA Non compliance to medications, POA Hypercoagulable state on Prasugrel POA Functional decline: s/p Rt BKA POA PLAN: patient remains admitted to the ICU, intubated, mechanical ventilation, BP 120/108, heart rate of 86, saturating 99% on mechanical ventilation, FiO2 of 60%. CBC with a persistent leukocytosis of 20.1, hemoglobin 9.8, hematocrit 26.9, platelet count of 33. Sodium 142, potassium 3.7, BUN 67, creatinine 2.9, AST of 1483, ALT of 658, alkaline phosphatase 658, albumin of 2.6. ABG shows a pH of 7.55, pCO2 30, PO2 76.8. Echocardiogram 03/14/2030, left ventricular cavity size is normal, Impella device present and we will sitting in the left ventricle, LVEF 30-35%. Cardiothoracic input noted and appreciated, we will continue to monitor. Hematology input noted and appreciated, the patient with a possible heparin induced thrombocytopenia thrombus cytopenia, patient remains on argatroban drip. Patient is started on dexamethasone 20 mg IV daily. Cardiology input noted and appreciated, continue Impella assist device, continue high-dose epinephrine. Physical examination, overall condition remains unchanged, with patient's Rt BKA stump, left foot , rt and left hands showing erythema with blebs and mottling on the skin suggestive of worsening ischemia and is cold to touch. NEURO: Minimize central acting medications as possible. Fall Precautions. Well lighted room through the day and minimize interruptions through the night to prevent acute delirium. PULMONARY: Supplemental 02 as needed BiPAP as necessary, for respiratory distress Titrate Fio2 to keep Spo2 > or = 90% DuoNebs and CPT as needed IS hourly while awake for pulmonary hygiene prn Out of bed to chair as tolerated Maintain aspiration precautions at all times CARDIOVASCULAR: Follow hemodynamics. Vital signs per facility protocol GI & NUTRITION: Continue nutritional support Aspirations precautions Prokinetic agents and laxatives as needed KIDNEYS & ELECTROLYTES: Strict monitoring of intake and output Daily weights Avoid nephrotoxic agents Monitor electrolytes and replace as needed Goal urine output of 30mL/hr or 0.5mL/kg/hr Medications to be dosed according to renal function. Avoid contrast if possible ENDOCRINE: Maintain blood glucose between 100-180 at all times. Insulin sliding scale for blood glucose management Hypoglycemia and hyperglycemia protocol in place INFECTIOUS DISEASE: Trend temperature, WBC and procalcitonin level Follow cultures, deescalate antibiotics as soon as possible. Panculture if new onset fever HEMATOLOGY & COAGULATION: Monitor H&H. Keep Hgb > 7 Transfuse 1 unit of PRBC for Hgb < 7 Transfuse 1 pack of platelets of platelets < 20, 000 Watch for any signs and symptoms of bleeding SKIN: Pressure ulcer prevention per facility protocol Specialty mattress as needed ORTHO/REHAB Continue PT/OT PRN: MEDICATIONS Tylenol 650 mg po every 4 hrs for fever zofran 4 mg IV every 6 hrs for n/v Hydralazine 5 mg IV every 4 hrs systolic pressure > 160 bowel regiment: lactulose 20 gm PO BID PRN constipation Supportive measures: Continue GI and DVT prophylaxis Disposition: Pending improvement in clinical condition All questions answered time spent: > 35 min MAIKEL DISLA MD Mar 16, 2025 08:44
--- NOTE | 2025-03-16 12:10 | PN ---
FOLLOWUP PROGRESS NOTE SUBJECTIVE: The patient is a 59-year-old female with a history of known coronary artery disease. The patient is status post coronary artery bypass graft surgery. She has had acute renal failure postoperatively. The patient did receive dialysis yesterday with 1.9 L of ultrafiltration. The patient continues requiring the pressure. She remains with the Impella and the patient is being seen as a followup visit for all of the above. REVIEW OF SYSTEMS: She is intubated in the ICU. OBJECTIVE: VITAL SIGNS: Blood pressure is 130/70 on the ____, pulse in the 80s. GENERAL: She is a chronically old female lying in bed on medical floor. HEENT: Head is atraumatic. Oropharynx is without exudate. ET tube is in place. NECK: Supple. There is no JVP. CARDIOVASCULAR: Regular. There is no S3 or S4 gallop. LUNGS: Coarse with equal thoracic movement. ABDOMEN: Soft, nondistended, and nontender. EXTREMITIES: She has edema. NEUROLOGICAL: Sedated on the vent. LABORATORY DATA: Sodium 142, potassium 3.7, BUN 67, creatinine is 2.9, hemoglobin 9.8, hematocrit 26. IMPRESSION: * Acute renal failure requiring dialysis. * Coronary artery disease status post coronary artery bypass graft. * Respiratory failure, on the vent. * Hypotension. PLAN: The patient continues with a dense ATN. She will continue with dialysis as needed. The patient did receive dialysis yesterday without difficulty. The patient's workup is ongoing per Cardiovascular Surgery. We will continue to follow closely. I did discuss previously with the patient's family. TID: [id number] RECEIPT: [id number]
[2025-03-16 12:27] LABS: ABG BASE EXCESS 3.4 mmol/L (-2.0-3.0); ABG HCO3 25.1 mmol/L (21.0-28.0); ABG OXYGEN SATURATION 96.6 % (94.0-98.0); ABG PCO2 29 mmHg (32-45); ABG PH 7.562 (7.350-7.450); CARBON MONOXIDE 1.8 % (0.5-1.5); DEVICE COMMENT RICHARD RN; PO2, ARTERIAL BG 85.7 mmHg (83.0-108.0); TEMPERATURE, CELSIUS BG 37.0 CELSIUS (35.5-37.0); VENT MODE, BG SIMV,PS10 (ROOM AIR)
[2025-03-16 15:22] LABS: ABG BASE EXCESS 4.5 mmol/L (-2.0-3.0); ABG HCO3 26.6 mmol/L (21.0-28.0); ABG OXYGEN SATURATION 97.4 % (94.0-98.0); ABG PCO2 31 mmHg (32-45); ABG PH 7.546 (7.350-7.450); CARBON MONOXIDE 1.9 % (0.5-1.5); PO2, ARTERIAL BG 94.1 mmHg (83.0-108.0); TEMPERATURE, CELSIUS BG 37.0 CELSIUS (35.5-37.0); VENT MODE, BG SIMV PS 10 (ROOM AIR)
--- NOTE | 2025-03-16 16:56 | PN ---
A 59-year-old female who has had a prolonged hospital course. She initially presented with chest pain. The patient eventually underwent coronary catheterization that revealed 3-vessel disease. The patient is status post CABG. The patient has developed acute renal failure postoperatively. The patient remains intubated in the ICU. The patient continues with the pressors. She was also noted to have hyperkalemia and was treated medically. Patient continues to be intubated. The patient was started on argatroban. Platelet count continued to be low. Patient with multiorgan failure. The patient continues to be bleeding from the tubes. PHYSICAL EXAMINATION: VITAL SIGNS: Blood pressure is 101/69, pulse in the 100s. She is afebrile. GENERAL: She is a chronically ill female, lying in bed in the medical floor. HEENT: Head is atraumatic. Pupils equal and reactive to light. Oropharynx, ET tubes in place. NECK: Supple. There is no JVP. CARDIOVASCULAR: Regular. There is no S3 or S4 gallop. LUNGS: Coarse with equal thoracic movement. ABDOMEN: Soft, nondistended, nontender. EXTREMITIES: There is no edema. NEUROLOGICAL: She is sedated with the vent. SKIN: No rashes or nodules. BACK: There is no CVA tenderness. No back deformities. IMPRESSION: 1. Leukocytosis 2. Anemia 3. Thrombocytopenia 4. Liver failure 5. Acute renal failure 6. Coronary artery disease status post CABG 7. Transfusion is a patient to have multiple blood product transfusion including 17 red cells, 9 platelet, 4 fresh frozen plasma and 1 whole blood. Plan 1. Peripheral blood smear showed red blood cells to be microcytic normochromic with dimorphic picture showed be consistent with iron deficiency anemia with the patient received blood transfusion. There was no fragment cell or schistocyte. There is no teardrop cell. There is no rouleaux phenomena. There is no pelger- Huet cell. White blood cell with no blasts. There is decreased number of the platelets. But the platelet is normal in size. This is not consistent with HIT. 2. There was hypersegmented neutrophils. This patient to continue on folic acid 1 mg p.o. daily and vitamin B12 1000 mcg p.o. daily. 3. Peripheral smear actually showed nucleated blood cells very mature cell. The patient could have hemolysis or could have also myeloproliferative disorder to start with. So this patient may be will need bone marrow biopsy to be done later on. 4. Cardiothoracic wanted the patient to be on argatroban. We will continue the goal of PTT to be between [id number]. 5. This patient could benefit actually from dexamethasone 20 mg IV daily 6. Continue care as per export administrator There is no need for anticoagulation only as for prophylaxis. It seems the patient is on aspirin. 7. This patient could benefit from IV iron. 8. This patient with multiorgan failure. Patient have very poor prognosis. Patient continued to be full code. Vitals/Labs Vital Signs Date Time Temp Pulse Resp B/P (MAP) Pulse Ox O2 Delivery O2 Flow Rate FiO2 03/16/25 16:43 60 03/16/25 16:05 98.4 Ventilator 03/16/25 16:00 97 03/16/25 16:00 103 16 115/84 (94) Laboratory Tests 03/15/25 19:29 03/16/25 04:00 Medications Current Medications Nitroglycerin 0.4 mg Q5M PRN SL Last administered on 03/06/25at 08:50; Start 02/24/25 at 06:00; Stop 03/06/25 at 08:51; Status DC Heparin Sodium/ Dextrose 250 ml @ 0 mls/hr PROTOCOL PRN IV Last administered on 02/25/25at 01:09; Start 02/24/25 at 06:00; Stop 02/25/25 at 05:59; Status DC Morphine Sulfate 2 mg ONCE ONCE IVP Last administered on 02/24/25at 06:38; Start 02/24/25 at 06:00; Stop 02/24/25 at 06:01; Status DC Aspirin 325 mg ONCE ONCE PO; Start 02/24/25 at 06:00; Stop 02/24/25 at 06:01; Status DC Heparin Sodium (Porcine) 5,000 unit STK-MED ONCE .ROUTE; Start 02/24/25 at 06:17; Stop 02/24/25 at 06:17; Status DC Heparin Sodium (Porcine) 3,000 unit ONCE ONCE IV Last administered on 02/24/25at 06:38; Start 02/24/25 at 06:30; Stop 02/24/25 at 06:31; Status DC Acetaminophen 650 mg Q4H PRN PO Last administered on 03/01/25at 19:06; Start 02/24/25 at 07:00; Stop 03/26/25 at 06:59 Famotidine 20 mg BID PO Last administered on 03/07/25at 20:29; Start 02/24/25 at 09:00; Stop 03/09/25 at 10:34; Status DC Atorvastatin Calcium 20 mg HS PO; Start 02/24/25 at 21:00; Stop 02/24/25 at 08:52; Status DC Aspirin 81 mg DAILY PO; Start 02/24/25 at 09:00; Stop 02/24/25 at 08:52; Status DC Isosorbide Mononitrate 30 mg DAILY PO Last administered on 03/06/25at 08:13; Start 02/24/25 at 09:00; Stop 03/06/25 at 11:46; Status DC Atorvastatin Calcium 40 mg HS PO Last administered on 03/11/25at 20:11; Start 02/24/25 at 21:00; Stop 03/12/25 at 08:25; Status DC Metoprolol Succinate 12.5 mg DAILY PO Last administered on 03/03/25at 08:36; Start 02/24/25 at 09:00; Stop 03/06/25 at 18:49; Status DC Magnesium Sulfate 50 ml @ 0 mls/hr PROTOCOL PRN IV; Start 02/24/25 at 09:30; Stop 03/09/25 at 15:49; Status DC Potassium Chloride 100 ml @ 50 mls/hr AD PRN IV; Start 02/24/25 at 09:30; Stop 03/08/25 at 09:15; Status DC Insulin Human Regular INSULIN SLIDING SCAL... ACHS SQ Last administered on 03/06/25at 20:24; Start 02/24/25 at 11:30; Stop 03/08/25 at 09:15; Status DC Prasugrel 10 mg DAILY PO Last administered on 02/28/25at 09:18; Start 02/25/25 at 09:00; Stop 03/01/25 at 12:54; Status DC Citalopram Hydrobromide 10 mg DAILY PO Last administered on 03/10/25at 08:16; Start 02/25/25 at 09:00; Stop 03/27/25 at 08:59 Aspirin 81 mg ONCE ONCE PO Last administered on 02/24/25at 17:45; Start 02/24/25 at 17:00; Stop 02/24/25 at 17:01; Status DC Aspirin 81 mg DAILY PO Last administered on 02/28/25at 09:18; Start 02/25/25 at 09:00; Stop 03/01/25 at 12:33; Status DC Potassium Chloride 100 ml @ 100 mls/hr AD PRN IV; Start 02/26/25 at 11:30; Stop 02/27/25 at 09:49; Status DC Potassium Chloride 20 meq AD PRN PO; Start 02/26/25 at 11:30; Stop 03/08/25 at 09:15; Status DC Potassium Chloride 20 meq AD PRN PO Last administered on 03/07/25at 05:23; Start 02/26/25 at 11:30; Stop 03/08/25 at 09:15; Status DC Regadenoson 0.4 mg STK-MED ONCE IVP; Start 02/27/25 at 07:38; Stop 02/27/25 at 07:40; Status DC Lidocaine HCl 20 ml STK-MED ONCE .ROUTE; Start 03/01/25 at 11:08; Stop 03/01/25 at 11:08; Status DC Iohexol 35,000 mg STK-MED ONCE IV; Start 03/01/25 at 11:08; Stop 03/01/25 at 11:08; Status DC Heparin Sodium (Porcine) 10,000 unit STK-MED ONCE .ROUTE; Start 03/01/25 at 11:08; Stop 03/01/25 at 11:09; Status DC Heparin Sodium/ Sodium Chloride 1,000 ml @ As Directed STK-MED ONCE IV; Start 03/01/25 at 11:09; Stop 03/01/25 at 11:09; Status DC Nitroglycerin 50 mg STK-MED ONCE .ROUTE; Start 03/01/25 at 11:09; Stop 03/01/25 at 11:09; Status DC Verapamil HCl 5 mg STK-MED ONCE .ROUTE; Start 03/01/25 at 11:10; Stop 03/01/25 at 11:10; Status DC Atropine Sulfate 1 mg STK-MED ONCE IVP; Start 03/01/25 at 11:39; Stop 03/01/25 at 11:39; Status DC Fentanyl Citrate 100 mcg STK-MED ONCE .ROUTE; Start 03/01/25 at 11:39; Stop 03/01/25 at 11:40; Status DC Midazolam HCl 2 mg STK-MED ONCE .ROUTE; Start 03/01/25 at 11:39; Stop 03/01/25 at 11:40; Status DC Dopamine HCl/ Dextrose 0 ml @ As Directed STK-MED ONCE IV; Start 03/01/25 at 11:40; Stop 03/01/25 at 11:40; Status DC Prasugrel 10 mg STK-MED ONCE .ROUTE; Start 03/01/25 at 12:15; Stop 03/01/25 at 12:15; Status DC Aspirin 81 mg STK-MED ONCE .ROUTE; Start 03/01/25 at 12:15; Stop 03/01/25 at 12:15; Status DC Sodium Chloride 1,000 ml @ 150 mls/hr Q6H40M IV Last administered on 03/01/25at 19:04; Start 03/01/25 at 12:30; Stop 03/01/25 at 16:29; Status DC Aspirin 81 mg DAILY PO Last administered on 03/16/25at 09:24; Start 03/02/25 at 09:00; Stop 04/01/25 at 08:59 Dextrose 50 ml AD PRN IV; Start 03/01/25 at 12:30; Stop 03/09/25 at 15:51; Status DC Glucagon 1 mg AD PRN IM; Start 03/01/25 at 12:30; Stop 03/09/25 at 15:51; Status DC Acetaminophen 650 mg Q4H PRN PO Last administered on 03/04/25at 10:39; Start 03/02/25 at 02:30; Stop 04/01/25 at 02:29 Potassium Chloride 40 meq ONCE ONCE PO Last administered on 03/02/25at 19:47; Start 03/02/25 at 15:00; Stop 03/02/25 at 15:01; Status DC Midodrine 5 mg ONCE ONCE PO; Start 03/03/25 at 21:00; Stop 03/03/25 at 13:17; Status DC Midodrine 10 mg TID PO Last administered on 03/07/25at 14:38; Start 03/03/25 at 14:00; Stop 03/08/25 at 09:15; Status DC Docusate Sodium 100 mg BID PO; Start 03/03/25 at 21:00; Stop 03/03/25 at 16:22; Status DC Ketorolac Tromethamine 15 mg Q6H PRN PO; Start 03/03/25 at 18:00; Stop 03/03/25 at 16:22; Status DC Potassium Chloride 40 meq ONCE ONCE PO Last administered on 03/05/25at 11:35; Start 03/05/25 at 08:30; Stop 03/05/25 at 08:31; Status DC Isosorbide Mononitrate 60 mg DAILY PO Last administered on 03/07/25at 08:47; Start 03/07/25 at 09:00; Stop 03/08/25 at 09:15; Status DC Potassium Chloride 40 meq ONCE ONCE PO Last administered on 03/07/25at 11:58; Start 03/07/25 at 12:00; Stop 03/07/25 at 12:01; Status DC Cefazolin Sodium 2 gm ONCALL IVP; Start 03/07/25 at 22:00; Stop 03/09/25 at 21:59; Status DC Epinephrine HCl 10 mg/Sodium Chloride 250 ml @ 0 mls/hr AD PRN IV Last administered on 03/14/25at 07:02; Start 03/08/25 at 07:00; Stop 04/07/25 at 06:59 Norepinephrine Bitartrate 250 ml @ 0 mls/hr AD PRN IV; Start 03/08/25 at 07:00; Stop 03/08/25 at 23:13; Status DC Aminocaproic Acid 90368 mg/Sodium Chloride 480 ml @ 0 mls/hr AD PRN IV; Start 03/08/25 at 07:00; Stop 04/07/25 at 06:59 Cefazolin Sodium 2 gm STK-MED ONCE .ROUTE; Start 03/08/25 at 07:21; Stop 03/08/25 at 07:22; Status DC Sodium Chloride 1,000 ml @ As Directed STK-MED ONCE IV Last administered on 03/08/25at 07:24; Start 03/08/25 at 07:22; Stop 03/08/25 at 07:22; Status DC Heparin Sodium (Porcine) 10,000 unit STK-MED ONCE .ROUTE; Start 03/08/25 at 07:25; Stop 03/08/25 at 07:25; Status DC Heparin Sodium (Porcine) 10,000 unit STK-MED ONCE .ROUTE; Start 03/08/25 at 07:27; Stop 03/08/25 at 07:27; Status DC Potassium Chloride 200 ml @ As Directed STK-MED ONCE IV; Start 03/08/25 at 07:27; Stop 03/08/25 at 07:27; Status DC Lidocaine HCl/ Dextrose 250 ml @ As Directed STK-MED ONCE IV; Start 03/08/25 at 07:30; Stop 03/08/25 at 07:30; Status DC Nitroglycerin/ Dextrose 1 ml @ As Directed STK-MED ONCE .ROUTE; Start 03/08/25 at 07:34; Stop 03/08/25 at 07:35; Status DC Cefazolin Sodium 1 gm STK-MED ONCE .ROUTE; Start 03/08/25 at 07:36; Stop 03/08/25 at 07:36; Status DC Gentamicin Sulfate 80 mg STK-MED ONCE .ROUTE; Start 03/08/25 at 07:36; Stop 03/08/25 at 07:36; Status DC Heparin Sodium/ Sodium Chloride 500 ml @ As Directed STK-MED ONCE IV; Start 03/08/25 at 07:36; Stop 03/08/25 at 07:36; Status DC Papaverine HCl 60 mg STK-MED ONCE .ROUTE; Start 03/08/25 at 07:38; Stop 03/08/25 at 07:39; Status DC Protamine Sulfate 250 mg STK-MED ONCE IV; Start 03/08/25 at 08:28; Stop 03/08/25 at 08:28; Status DC Lidocaine HCl 100 mg STK-MED ONCE .ROUTE; Start 03/08/25 at 08:28; Stop 03/08/25 at 08:28; Status DC Epinephrine HCl 1 mg STK-MED ONCE .ROUTE; Start 03/08/25 at 08:28; Stop 03/08/25 at 08:28; Status DC Sodium Bicarbonate 150 ml @ As Directed STK-MED ONCE .ROUTE; Start 03/08/25 at 08:28; Stop 03/08/25 at 08:28; Status DC Norepinephrine Bitartrate 4 mg STK-MED ONCE IV; Start 03/08/25 at 08:28; Stop 03/08/25 at 08:28; Status DC Propofol 200 mg STK-MED ONCE IV; Start 03/08/25 at 08:28; Stop 03/08/25 at 08:29; Status DC Fentanyl Citrate 1,000 mcg STK-MED ONCE IJ; Start 03/08/25 at 08:28; Stop 03/08/25 at 08:29; Status DC Midazolam HCl 2 mg STK-MED ONCE .ROUTE; Start 03/08/25 at 08:29; Stop 03/08/25 at 08:29; Status DC Rocuronium Millry 50 mg STK-MED ONCE .ROUTE; Start 03/08/25 at 08:29; Stop 03/08/25 at 08:29; Status DC Etomidate 20 mg STK-MED ONCE .ROUTE; Start 03/08/25 at 08:29; Stop 03/08/25 at 08:29; Status DC Amiodarone HCL/ Dextrose 100 ml @ As Directed STK-MED ONCE .ROUTE; Start 03/08/25 at 09:08; Stop 03/08/25 at 09:09; Status DC Acetaminophen 1,000 mg Q6H6 IV Last administered on 03/09/25at 12:00; Start 03/08/25 at 13:00; Stop 03/09/25 at 12:59; Status DC Aspirin 81 mg ONCE ONCE NG; Start 03/08/25 at 13:00; Stop 03/08/25 at 13:01; Status DC Docusate Sodium 100 mg BID PO Last administered on 03/15/25at 20:24; Start 03/08/25 at 21:00; Stop 04/07/25 at 20:59 Lactulose 20 gm BID PRN PO Last administered on 03/12/25at 16:26; Start 03/08/25 at 09:30; Stop 04/07/25 at 09:29 Furosemide 20 mg Q12H PO; Start 03/10/25 at 09:00; Stop 03/10/25 at 16:28; Status DC Furosemide 20 mg Q12H IV Last administered on 03/10/25at 01:15; Start 03/09/25 at 09:00; Stop 03/10/25 at 08:59; Status DC Magnesium Hydroxide 30 ml DAILY PRN PO; Start 03/08/25 at 09:30; Stop 04/07/25 at 09:29 Dexmedetomidine/ Sodium Chloride 400 mcg PROTOCOL IV; Start 03/08/25 at 09:30; Stop 03/09/25 at 09:29; Status DC Acetaminophen 650 mg Q6H PRN PO; Start 03/08/25 at 09:30; Stop 03/08/25 at 09:36; Status DC Sodium Chloride 1,000 ml @ 10 mls/hr ONCE IV; Start 03/08/25 at 09:30; Stop 03/09/25 at 09:29; Status DC Sodium Chloride 10 ml Q8H PRN IVP; Start 03/08/25 at 09:30; Stop 04/07/25 at 09:29 Morphine Sulfate 0.5 mg Q2H PRN IV; Start 03/08/25 at 09:30; Stop 03/09/25 at 09:29; Status DC Morphine Sulfate 1 mg Q2H PRN IV; Start 03/08/25 at 09:30; Stop 03/09/25 at 09:29; Status DC Acetaminophen 650 mg Q4H PRN RC; Start 03/08/25 at 09:30; Stop 04/07/25 at 09:29 Ondansetron HCl 4 mg Q6H PRN IV; Start 03/08/25 at 09:30; Stop 04/07/25 at 09:29 Sodium Chloride 500 ml @ 0 mls/hr AD IV Last administered on 03/11/25at 02:21; Start 03/08/25 at 09:30; Stop 04/07/25 at 09:29 Nitroglycerin/ Dextrose 0 ml @ 0 mls/hr AD IV; Start 03/08/25 at 09:30; Stop 03/11/25 at 09:29; Status DC Propofol 100 ml @ 0 mls/hr AD PRN IV; Start 03/08/25 at 09:30; Stop 03/12/25 at 09:29; Status DC Norepinephrine Bitartrate 8 mg/ Dextrose 250 ml @ 0 mls/hr AD PRN IV; Start 03/08/25 at 09:30; Stop 03/08/25 at 09:30; Status DC Epinephrine HCl 10 mg/Sodium Chloride 250 ml @ 0 mls/hr AD PRN IV; Start 03/08/25 at 09:30; Stop 03/08/25 at 09:30; Status DC Aminocaproic Acid 78268 mg/Sodium Chloride 310 ml @ 25 mls/hr AD IV; Start 03/08/25 at 09:30; Stop 03/08/25 at 09:31; Status DC Calcium Gluconate 1 gm/Sodium Chloride 60 ml @ 200 mls/hr AD PRN IV Last administered on 03/16/25at 15:34; Start 03/08/25 at 09:30; Stop 04/07/25 at 09:29 Magnesium Sulfate 50 ml @ 12.5 mls/hr AD PRN IV Last administered on 03/12/25at 22:19; Start 03/08/25 at 09:30; Stop 04/07/25 at 09:29 Potassium Chloride 100 ml @ 100 mls/hr AD PRN IV Last administered on 03/09/25at 05:37; Start 03/08/25 at 09:30; Stop 04/07/25 at 09:29 Potassium Phosphate 250 ml @ 42 mls/hr AD PRN IV Last administered on 03/09/25at 08:23; Start 03/08/25 at 09:30; Stop 04/07/25 at 09:29 Albumin Human 250 ml @ 0 mls/hr AD PRN IV Last administered on 03/08/25at 18:48; Start 03/08/25 at 09:30; Stop 03/08/25 at 18:48; Status DC Acetaminophen 650 mg Q4H PRN PO; Start 03/08/25 at 09:30; Stop 03/08/25 at 09:29; Status DC Insulin Human Regular 100 unit/ Sodium Chloride 100 ml @ 0 mls/hr AD IV Last administered on 03/09/25at 16:20; Start 03/08/25 at 09:30; Stop 03/10/25 at 09:29; Status DC Cefazolin Sodium 2 gm Q8H IVPB Last administered on 03/09/25at 06:06; Start 03/08/25 at 14:30; Stop 03/09/25 at 06:31; Status DC Tramadol HCl 50 mg Q6H PRN PO; Start 03/08/25 at 09:30; Stop 03/13/25 at 09:29; Status DC Tramadol HCl 100 mg Q6H PRN PO; Start 03/08/25 at 09:30; Stop 03/13/25 at 09:29; Status DC Famotidine 20 mg BID IV Last administered on 03/10/25at 08:16; Start 03/08/25 at 21:00; Stop 03/10/25 at 20:59; Status DC Sodium Bicarbonate 50 meq AD PRN IV Last administered on 03/10/25at 04:56; Start 03/08/25 at 09:30; Stop 03/11/25 at 09:29; Status DC Dextrose 50 ml AD PRN IV Last administered on 03/10/25at 00:44; Start 03/08/25 at 09:30; Stop 04/07/25 at 09:29 Glucagon 1 mg AD PRN IM; Start 03/08/25 at 09:30; Stop 04/07/25 at 09:29 Lidocaine HCl 100 mg STK-MED ONCE .ROUTE; Start 03/08/25 at 10:18; Stop 03/08/25 at 10:18; Status DC Cefazolin Sodium 2 gm STK-MED ONCE IVPB Last administered on 03/08/25at 08:40; Start 03/08/25 at 08:40; Stop 03/08/25 at 11:34; Status DC Cefazolin Sodium 1 gm STK-MED ONCE IRRIG Last administered on 03/08/25at 09:22; Start 03/08/25 at 09:22; Stop 03/08/25 at 11:34; Status DC Heparin Sodium (Porcine) 5,000 unit STK-MED ONCE IRRIG Last administered on 03/08/25at 09:22; Start 03/08/25 at 09:22; Stop 03/08/25 at 11:34; Status DC Papaverine HCl 60 mg STK-MED ONCE IRRIG Last administered on 03/08/25at 09:53; Start 03/08/25 at 09:53; Stop 03/08/25 at 11:34; Status DC Heparin Sodium (Porcine) 10,000 unit STK-MED ONCE .ROUTE; Start 03/08/25 at 12:20; Stop 03/08/25 at 12:21; Status DC Epinephrine HCl 1 mg STK-MED ONCE .ROUTE; Start 03/08/25 at 12:30; Stop 03/08/25 at 12:30; Status DC Lidocaine HCl 100 mg STK-MED ONCE .ROUTE; Start 03/08/25 at 12:42; Stop 03/08/25 at 12:42; Status DC Sodium Bicarbonate 100 ml @ As Directed STK-MED ONCE .ROUTE; Start 03/08/25 at 12:45; Stop 03/08/25 at 12:45; Status DC Amiodarone HCl 360 mg/Dextrose 207.2 ml @ 33.3 mls/hr AD IV; Start 03/08/25 at 13:00; Stop 03/08/25 at 12:52; Status DC Amiodarone HCl 360 mg/Dextrose 207.2 ml @ 33.3 mls/hr AD IV; Start 03/08/25 at 13:00; Stop 03/08/25 at 12:52; Status DC Amiodarone HCl 540 mg/Dextrose 310.8 ml @ 16.7 mls/hr [id number] STAT IV Last administered on 03/08/25at 16:44; Start 03/08/25 at 12:45; Stop 03/08/25 at 20:15; Status DC Cardioplegic Solution 0 ml @ As Directed STK-MED ONCE IV; Start 03/08/25 at 12:48; Stop 03/08/25 at 12:49; Status DC Amiodarone HCL/ Dextrose 200 ml @ 0 mls/hr ONCE ONCE IV; Start 03/08/25 at 13:00; Stop 03/08/25 at 13:01; Status DC Sodium Bicarbonate 100 ml @ As Directed STK-MED ONCE .ROUTE; Start 03/08/25 at 12:50; Stop 03/08/25 at 12:51; Status DC Heparin Sodium (Porcine) 10,000 unit STK-MED ONCE .ROUTE; Start 03/08/25 at 13:03; Stop 03/08/25 at 13:03; Status DC Potassium Chloride 300 ml @ As Directed STK-MED ONCE IV; Start 03/08/25 at 13:07; Stop 03/08/25 at 13:07; Status DC Sodium Bicarbonate 50 ml @ As Directed STK-MED ONCE .ROUTE; Start 03/08/25 at 13:33; Stop 03/08/25 at 13:33; Status DC Cefazolin Sodium 1 gm STK-MED ONCE .ROUTE; Start 03/08/25 at 14:38; Stop 03/08/25 at 14:39; Status DC Albumin Human 500 ml @ As Directed STK-MED ONCE IV; Start 03/08/25 at 14:43; Stop 03/08/25 at 14:43; Status DC Ipratropium Millry 0.5 mg STK-MED ONCE IH Last administered on 03/08/25at 15:50; Start 03/08/25 at 15:24; Stop 03/08/25 at 15:24; Status DC Ipratropium Millry 0.5 MG ONCE ONCE IH; Start 03/08/25 at 15:15; Stop 03/08/25 at 15:51; Status DC Albumin Human 50 ml @ 999 mls/hr Q6H IV Last administered on 03/09/25at 10:10; Start 03/08/25 at 17:00; Stop 03/09/25 at 11:02; Status DC Vasopressin 40 units/Sodium Chloride 40 ml @ 0 mls/hr PROTOCOL IV Last administered on 03/10/25at 19:26; Start 03/08/25 at 17:00; Stop 04/07/25 at 16:59 Albumin Human 250 ml @ 0 mls/hr AD IV Last administered on 03/09/25at 08:36; Start 03/08/25 at 19:00; Stop 03/10/25 at 06:44; Status DC Atropine Sulfate 1 mg STK-MED ONCE IVP Last administered on 03/08/25at 19:47; Start 03/08/25 at 19:22; Stop 03/08/25 at 19:22; Status DC Albumin Human 500 ml @ 0 mls/hr AD IV Last administered on 03/09/25at 11:35; Start 03/08/25 at 20:00; Stop 03/09/25 at 15:49; Status DC Norepinephrine Bitartrate 250 ml @ As Directed STK-MED ONCE IV; Start 03/08/25 at 22:56; Stop 03/08/25 at 22:56; Status DC Norepinephrine Bitartrate PER PROTOCOL PROTOCOL IV Last administered on 03/11/25at 19:17; Start 03/08/25 at 23:30; Stop 04/07/25 at 23:29 Albumin Human 500 ml @ 0 mls/hr AD IV Last administered on 03/10/25at 18:06; Start 03/09/25 at 22:00; Stop 03/14/25 at 21:59; Status DC Phytonadione 10 mg/Sodium Chloride 51 ml @ 100 mls/hr Q24H IVPB Last administered on 03/12/25at 00:27; Start 03/10/25 at 01:00; Stop 03/12/25 at 01:31; Status DC Furosemide 100 mg/ Sodium Chloride 100 ml @ 0 mls/hr PROTOCOL IV Last administered on 03/12/25at 05:11; Start 03/10/25 at 08:00; Stop 03/12/25 at 16:41; Status DC Sodium Zirconium Cyclosilicate 10 gm ONCE ONCE PO Last administered on 03/10/25at 08:15; Start 03/10/25 at 08:00; Stop 03/10/25 at 08:01; Status DC Piperacillin Sod/ Tazobactam Sod 3.375 gm Q8H IVPB Last administered on 03/16/25at 10:39; Start 03/10/25 at 10:30; Stop 03/20/25 at 10:29 Sodium Chloride 50 ml AD IV; Start 03/10/25 at 10:30; Stop 03/10/25 at 16:27; Status DC Prothrombin Complex Concent (Human) 500 unit ONCE IV; Start 03/10/25 at 12:00; Stop 03/10/25 at 12:24; Status DC Sodium Zirconium Cyclosilicate 10 gm ONCE ONCE PO Last administered on 03/10/25at 12:53; Start 03/10/25 at 13:00; Stop 03/10/25 at 13:01; Status DC Fentanyl Citrate 50 mcg ONCE ONCE IVP Last administered on 03/10/25at 16:51; Start 03/10/25 at 16:30; Stop 03/10/25 at 16:31; Status DC Lidocaine HCl 20 ml STK-MED ONCE .ROUTE Last administered on 03/10/25at 18:03; Start 03/10/25 at 16:38; Stop 03/10/25 at 16:38; Status DC Sodium Bicarbonate 25 meq/Dextrose 1,000 ml @ 0 mls/hr Q0M PRN IVP Last administered on 03/15/25at 05:29; Start 03/10/25 at 22:30; Stop 04/09/25 at 22:29 Dextrose 1,000 ml @ 50 mls/hr Q20H IV Last administered on 03/11/25at 19:15; Start 03/10/25 at 23:30; Stop 03/12/25 at 05:51; Status DC Sodium Zirconium Cyclosilicate 10 gm ONCE ONCE PO Last administered on 03/11/25at 07:10; Start 03/11/25 at 07:00; Stop 03/11/25 at 07:03; Status DC Sodium Zirconium Cyclosilicate 10 gm ONCE ONCE PO Last administered on 03/11/25at 11:53; Start 03/11/25 at 12:00; Stop 03/11/25 at 12:01; Status DC Metolazone 2.5 mg ONCE ONCE PO Last administered on 03/11/25at 13:01; Start 03/11/25 at 13:00; Stop 03/11/25 at 13:01; Status DC Sodium Zirconium Cyclosilicate 10 gm ONCE ONCE PO Last administered on 03/11/25at 16:27; Start 03/11/25 at 16:00; Stop 03/11/25 at 16:01; Status DC Dextrose 1,000 ml @ 0 mls/hr Q0M PRN IV; Start 03/12/25 at 06:00; Stop 04/09/25 at 23:29 Sodium Zirconium Cyclosilicate 10 gm ONCE ONCE PO Last administered on 03/12/25at 09:08; Start 03/12/25 at 09:00; Stop 03/12/25 at 09:04; Status DC Vitamin B Complex 1,000 mcg DAILY PO Last administered on 03/16/25at 09:24; Start 03/12/25 at 15:30; Stop 04/11/25 at 15:29 Folic Acid 1 mg DAILY PO Last administered on 03/16/25at 09:24; Start 03/12/25 at 15:30; Stop 04/11/25 at 15:29 Dexamethasone Sodium Phosphate 20 mg Q24H IV; Start 03/12/25 at 15:30; Stop 03/12/25 at 15:18; Status DC Iron Sucrose 300 mg/Sodium Chloride 250 ml @ 83 mls/hr Q24H IV; Start 03/12/25 at 15:30; Stop 03/14/25 at 18:31; Status Cancel Dexamethasone Sodium Phosphate 20 mg/Sodium Chloride 50 ml @ 100 mls/hr Q24H IV Last administered on 03/16/25at 15:03; Start 03/12/25 at 15:30; Stop 04/11/25 at 15:29 Lactulose 20 gm BID PRN PO; Start 03/12/25 at 16:30; Stop 03/12/25 at 16:20; Status DC Iron Sucrose 300 mg/Sodium Chloride 250 ml @ 83 mls/hr HS IV Last administered on 03/14/25at 19:55; Start 03/12/25 at 21:00; Stop 03/15/25 at 00:01; Status DC Polyethylene Glycol 17 gm DAILY PO Last administered on 03/14/25at 09:26; Start 03/13/25 at 09:00; Stop 04/12/25 at 08:59 Lactulose 20 gm BID PO Last administered on 03/15/25at 20:24; Start 03/12/25 at 21:00; Stop 04/11/25 at 20:59 Sodium Chloride 1,000 ml @ 0 mls/hr ONCE IV; Start 03/12/25 at 18:00; Stop 03/13/25 at 13:09; Status DC Fentanyl Citrate 1000 mcg/Sodium Chloride 120 ml @ 0 mls/hr AD PRN IV; Start 03/13/25 at 02:30; Stop 03/13/25 at 02:16; Status DC Fentanyl Citrate 100 ml @ 0 mls/hr PROTOCOL IV Last administered on 03/13/25at 02:29; Start 03/13/25 at 02:30; Stop 03/20/25 at 02:29 Dexmedetomidine HCl 400 mcg/ Sodium Chloride 100 ml @ 0 mls/hr AD PRN IV; Start 03/13/25 at 08:00; Stop 03/13/25 at 07:42; Status DC Dexmedetomidine/ Sodium Chloride 400 mcg PROTOCOL IV Last administered on 03/15/25at 09:49; Start 03/13/25 at 08:00; Stop 04/12/25 at 07:59 Heparin Sodium/ Dextrose 250 ml @ 0 mls/hr Q6H IV Last administered on 03/13/25at 10:42; Start 03/13/25 at 10:30; Stop 03/14/25 at 08:09; Status DC Sodium Chloride 1,000 ml @ 0 mls/hr ONCE IV Last administered on 03/15/25at 10:20; Start 03/13/25 at 13:30; Stop 04/12/25 at 13:29 Albumin Human 100 ml NOW IV; Start 03/13/25 at 13:30; Stop 03/14/25 at 13:29; Status DC Albumin Human 100 ml @ As Directed STK-MED ONCE IV Last administered on 03/13/25at 13:41; Start 03/13/25 at 13:25; Stop 03/13/25 at 13:25; Status DC Epoetin Nelson-epbx 10,000 unit ONCE ONCE SQ Last administered on 03/13/25at 14:41; Start 03/13/25 at 14:00; Stop 03/13/25 at 14:01; Status DC Pharmacy Profile Note 1 each ONCE MISC; Start 03/14/25 at 08:00; Stop 03/14/25 at 12:36; Status DC Sodium Bicarbonate 100 meq ONCE ONCE IV Last administered on 03/14/25at 12:03; Start 03/14/25 at 12:00; Stop 03/14/25 at 12:02; Status DC Argatroban 250 mg/ Sodium Chloride 250 ml @ 0 mls/hr PROTOCOL IV Last administered on 03/14/25at 17:33; Start 03/14/25 at 13:00; Stop 04/13/25 at 12:59 Multi-Ingred Cream/Lotion/Oil/ Oint 1 APPL HS OU Last administered on 03/15/25at 20:24; Start 03/14/25 at 21:00; Stop 04/13/25 at 20:59 Sodium Bicarbonate 100 meq ONCE ONCE IV Last administered on 03/15/25at 00:24; Start 03/15/25 at 00:30; Stop 03/15/25 at 00:31; Status DC Albumin Human 100 ml ONCE IV Last administered on 03/15/25at 10:16; Start 03/15/25 at 10:00; Stop 03/16/25 at 09:59; Status DC Sodium Zirconium Cyclosilicate 10 gm ONCE ONCE PO Last administered on 03/15/25at 11:03; Start 03/15/25 at 11:30; Stop 03/15/25 at 11:31; Status DC Insulin Glargine 10 units BID@0730,2100 SQ; Start 03/15/25 at 21:00; Stop 04/14/25 at 20:59 Insulin Human Regular INSULIN SLIDING SCAL... Q6H6 SQ Last administered on 03/15/25at 11:05; Start 03/15/25 at 12:00; Stop 04/14/25 at 11:59 Calcium Gluconate 1 gm/Sodium Chloride 110 ml @ 110 mls/hr ONCE ONCE IV Last administered on 03/15/25at 13:10; Start 03/15/25 at 12:00; Stop 03/15/25 at 12:59; Status DC Dextrose 25 ml ONCE ONCE IV Last administered on 03/15/25at 13:29; Start 03/15/25 at 12:00; Stop 03/15/25 at 12:02; Status DC Bumetanide 2 mg ONCE ONCE IM; Start 03/15/25 at 12:30; Stop 03/15/25 at 12:31; Status DC Insulin Human Lispro 10 unit ONCE ONCE SQ; Start 03/15/25 at 13:00; Stop 03/15/25 at 13:01; Status DC Bumetanide 2 mg ONCE ONCE IVP Last administered on 03/15/25at 13:34; Start 03/15/25 at 13:30; Stop 03/15/25 at 13:33; Status DC Insulin Human Regular 10 unit TIDAC IV Last administered on 03/15/25at 13:36; Start 03/15/25 at 17:00; Stop 03/15/25 at 14:18; Status DC Insulin Human Regular 100 unit/ Sodium Chloride 100 ml @ 0 mls/hr PROTOCOL PRN IV Last administered on 03/16/25at 02:14; Start 03/15/25 at 15:00; Stop 04/14/25 at 14:59 WILIAM ANDREW MD Mar 16, 2025 16:56
--- NOTE | 2025-03-16 20:54 | PN ---
TIME: 3:00 p.m. SUBJECTIVE: The patient is a 59-year-old female, status post coronary artery bypass grafting with Impella assist, day #8, remains critical, but no major events overnight. PHYSICAL EXAMINATION: NEUROLOGIC: Intubated, sedated. CARDIAC: S1, S2, regular rate and rhythm. RESPIRATORY: Clear to auscultation bilaterally. CHEST: Incision is clean, dry and intact. ASSESSMENT AND PLAN: * Coronary artery disease, status post coronary artery bypass grafting with Impella support 5.5, on epinephrine, weaning down compared to yesterday to a lower dose. We will continue to wean the pressors as tolerated. We will keep the Impella at P8 for now. * Volume overload, on dialysis intermittently. She tolerated the dialysis session yesterday. We will do another one tomorrow. * Acute renal failure, status post surgery. The patient is currently on dialysis, management per Nephrology. * Overall, the patient appears to be critical. The pressors are weaning down. His kidney function has been compromised. We will continue to wean the Impella daily as much as we can. We will have another discussion with the family in a few days. TID: [id number] RECEIPT: [id number]
[2025-03-16 21:18] LABS: ABG BASE EXCESS 2.5 mmol/L (-2.0-3.0); ABG HCO3 24.9 mmol/L (21.0-28.0); ABG OXYGEN SATURATION 98.3 % (94.0-98.0); ABG PCO2 31 mmHg (32-45); ABG PH 7.518 (7.350-7.450); CARBON MONOXIDE 2.0 % (0.5-1.5); PO2, ARTERIAL BG 114.7 mmHg (83.0-108.0); TEMPERATURE, CELSIUS BG 37.0 CELSIUS (35.5-37.0); VENT MODE, BG AC (ROOM AIR)
--- NOTE | 2025-03-16 23:15 | PN ---
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 Multiorgan dysfunction Acute liver failure Unstable Angina POA Remote anterior wall myocardial infarction July 2024 complicated by cardiogenic shock requiring Impella support for PCI with subsequent ischemic leg requiring [id number]-piov amputation CAD status post stenting of the proximal LAD proximal circumflex and mid circumflex artery as above with documented progression of disease December 2024 managed medically because of concern the patient would not be compliant with dual antiplatelet therapy Diabetes mellitus type 2 Dyslipidemia Severe protein calorie malnutrition BMI 14.2 Hypercoagulable state on Prasugrel POA Functional decline: s/p Rt BKA POA comorbidities: HX of ACS-STEMI s/p PCI with VIANEY placement (BSS 3.0x20 mm) in the proximal LAD, VIANEY placement (BSS 3.5x16 mm) in the proximal LCx, VIANEY placement (BSS 3.0x12 mm) in the mid LCx, and VIANEY placement (BSS 2.75x24 mm) in the distal LCx done on 07/17/2024 Hx of Intraprocedural VT in July 2024 HX of cardiogenic shock requiring Impella placement in July 2024 HX of Right lower extremity ischemia secondary to Impella placement resulting in RLE limb ischemia s/p right BKA Hx of Ischemic cardiomyopathy Hx of Medication noncompliance Hx of Hypertension ] INTERVAL HISTORY: 03/16/25- Pt in multiorgan dysfunction. Continues on Impella MCS on P8, continues on mechanical ventilation not breathing over the vent. FIO2 requirements 60%. All 4 extremities with necrosis to distal ends. Sclera is icteric and pt appears with increased swelling to face. She continues on argatroban gtt and insulin gtt as well as epi gtt at 0.02mcg/kg/min. mediastinal chest tube drained 250 ml in the last 24 hours. Urine output. Urine output 1.9L. white count elevated but trending down. 20.1, HH stable 9.8/26.9 platelet 33 K. chemistry chloride 100 BUN 67 creatinine of 2.9 GFR of 18 glucose total calcium of eight J Luis three magnesium is 0.3 liver enzymes elevated but trending down. X-ray with a later infiltrates effusion. Mediastinum and left chest tubes he is eight Impella five nine in good position. Right IJ cordis and ET tube in good position. No pneumothorax noted. we will continue to follow CV and cardiology recs. REVIEW OF SYSTEMS: unable to perform PHYSICAL EXAM: GENERAL: critically ill intubated HEENT: Sclera non icteric, moist mucosa NECK: Supple, no JVD, trachea midline , impella 5.5 LUNGS: diminished breath sounds bilaterally. No wheezes HEART: Regular rate and rhythm. Normal S1 and S2, without murmurs, chest tube in place ABD: Abdomen soft, nontender. Bowel sounds present EXT: No clubbing cyanosis or edema rt BKA NEURO: Deferred. Vital Signs (last 8hr) Date Time Temp Pulse Resp B/P (MAP) Pulse Ox O2 Delivery O2 Flow Rate FiO2 03/16/25 22:00 102 16 102/78 (86) 99 60 03/16/25 21:45 101 16 116/86 (96) 98 03/16/25 21:42 102 60 03/16/25 21:30 101 16 132/94 (107) 99 03/16/25 21:15 100 16 110/83 (92) 98 03/16/25 21:00 101 16 120/89 (99) 98 60 03/16/25 20:45 100 16 107/83 (91) 97 03/16/25 20:30 100 16 116/88 (97) 98 03/16/25 20:15 100 16 118/88 (98) 99 03/16/25 20:00 98.1 100 16 114/87 (96) 98 60 03/16/25 19:58 101 60 03/16/25 19:49 60 03/16/25 19:49 97 Ventilator+ 60 03/16/25 19:45 101 16 122/90 (101) 97 03/16/25 19:30 102 16 124/92 (103) 98 03/16/25 19:21 112/84 03/16/25 19:15 105 16 160/111 (127) 97 03/16/25 19:00 101 16 117/88 (98) 96 60 03/16/25 18:45 101 16 111/82 (92) 97 03/16/25 18:30 103 16 114/86 (95) 97 60 03/16/25 18:15 104 16 113/87 (96) 97 60 03/16/25 18:00 106 16 115/88 (97) 97 03/16/25 17:45 106 16 121/89 (100) 97 03/16/25 17:30 106 16 124/90 (101) 97 03/16/25 17:15 105 18 118/87 (97) 96 03/16/25 17:00 104 18 105/79 (88) 96 03/16/25 16:45 104 18 105/79 (88) 97 03/16/25 16:43 60 03/16/25 16:30 104 16 135/98 (110) 96 03/16/25 16:15 60 03/16/25 16:15 103 16 105/77 (86) 96 03/16/25 16:05 98.4 Ventilator 60 03/16/25 16:00 97 Ventilator+ 60 03/16/25 16:00 103 16 115/84 (94) 96 60 03/16/25 15:45 103 16 121/87 (98) 96 03/16/25 15:30 103 16 126/88 (101) 97 03/16/25 15:29 60 03/16/25 15:18 101 60 03/16/25 15:15 100 16 118/85 (96) 97 03/16/25 15:06 99 18 116/88 (97) 96 LABS: Hematology Labs: Test 03/16/25 04:00 03/15/25 19:29 03/15/25 09:30 Range/Units White Blood Count 20.1 H 4.8-10.8 K/uL Red Blood Count 3.09 L 4.00-5.50 MIL/uL Hemoglobin 9.8 L 12.0-16.0 g/dL Hematocrit 26.9 L 36-48 % Mean Corpuscular Volume 87.1 79-99 fL Mean Corpuscular Hemoglobin 31.7 27.0-33.0 pg Mean Corpuscular Hemoglobin Concent 36.4 H 32.0-36.0 g/dL Red Cell Distribution Width 15.3 11.0-15.5 % Platelet Count 33 #L 130-400 K/uL Mean Platelet Volume 7.5-10.5 fL Nucleated Red Blood Cells 22.1 H 0.0-0.19 % Immature Granulocyte % (Auto) 3.7 H 0-1 % Neutrophils (%) (Auto) 88.5 H 40.0-77.0 % Lymphocytes (%) (Auto) 4.5 L 21.0-51.0 % Monocytes (%) (Auto) 2.6 L 3.0-13.0 % Eosinophils (%) (Auto) 0.1 0.0-8.0 % Basophils (%) (Auto) 0.6 0.0-5.0 % Neutrophils # (Auto) 19.1 H 1.8-7.7 K/uL Lymphocytes # (Auto) 1.0 1.0-4.8 K/uL Monocytes # (Auto) 0.6 0.1-1.0 K/uL Eosinophils # (Auto) 0.03 0.00-0.70 K/uL Basophils # (Auto) 0.13 0.00-0.20 K/uL Absolute Immature Granulocyte (auto 0.81 0-1 K/uL White Cell Morphology Comment See comments Segmented Neutrophils % 89 H 40-70 % Band Neutrophils % 1 0-2 % Lymphocytes % (Manual) 4 L 22-44 % Monocytes % (Manual) 5 2-9 % Differential Comment MANUAL DIFFERENTIAL Reactive Lymphocytes 1 H 0-0 % Platelet Morphology Comment MARKED DECREASE Red Blood Cell Morphology See comments Chemistry Labs: Test 03/16/25 22:22 03/16/25 15:22 03/16/25 04:00 Range/Units Whole Blood Glucose 201 H 70-110 MG/DL Ammonia 16 11-32 umol/L Sodium Level 142 136-145 mmol/L Potassium Level 3.7 3.5-5.1 mmol/L Chloride Level 100 L 101-111 mmol/L Carbon Dioxide Level 28 21-32 mmol/L Blood Urea Nitrogen 67 #H 7-18 mg/dL Creatinine 2.9 H 0.5-1.0 mg/dL Glomerular Filtration Rate Calc 18 >90 mL/min Random Glucose 161 H 70-105 mg/dL Total Calcium 8.3 L 8.5-10.1 mg/dL Magnesium Level 2.30 1.80-2.40 mg/dL Total Bilirubin 7.8 H 0.2-1.0 mg/dL Aspartate Amino Transf (AST/SGOT) 1483 *H 10-37 U/L Alanine Aminotransferase (ALT/SGPT) 658 #*H 12-78 U/L Alkaline Phosphatase 258 H 50-136 U/L Total Protein 5.3 L 6.0-8.3 g/dL Albumin 2.6 L 3.5-5.0 g/dL Coagulation Labs: Test 03/16/25 12:28 03/15/25 19:29 Range/Units Activated Partial Thromboplast Time 64.9 H 26.3-35.5 SEC Prothrombin Time 26.6 #H 9.6-11.6 SEC Prothromb Time International Ratio 2.78 H 0.85-1.15 DIAGNOSTICS / RADIOLOGY RESULTS: [ ] PLAN Follow CT surgeon recommendations Follow cardiology recommendations Multimodal pain management Monitoring H&H Monitor chest tube output Chest x-ray in the morning Start SBT's as tolerated Pending 2D echo post cabg POCUS US continue impella support per cardiology follow chest XR Monitor ABGs Transfuse if absolutely necessary to keep hemoglobin above 8 Maintain O2 sats greater than 92% Incentive spirometry once extubated Hemoglobin A1 Glycemic control with goal of 80-180 Referral for cardiac rehabilitation Speech to eval once patient is extubated monitor electrolytes: K Goal of 4 Magnesium goal of 2 Replace accordingly monitor hemodynamic and continue support with pressors argatroban gtt per hematology recs NEURO: Minimize central acting medications as possible. Fall Precautions. Well lighted room through the day and minimize interruptions through the night to prevent acute delirium. PULMONARY: Supplemental 02 as needed Titrate Fio2 to keep Spo2 > or = 90% DuoNebs and CPT as needed IS hourly while awake for pulmonary hygiene Out of bed to chair as tolerated VAP Bundle Ventilator per CV protocol CARDIOVASCULAR: Follow hemodynamics. Titrate vasopressor to keep MAP >65 or systolic blood pressure >95mmHg DRIPS: epi argatroban insulin LINES: cvc impella chest tube et tube og tube A-line manjarrez GI & NUTRITION: Continue nutritional support Aspirations precautions Prokinetic agents and laxatives as needed KIDNEYS & ELECTROLYTES: Strict monitoring of intake and output Daily weights Avoid nephrotoxic agents Monitor electrolytes and replace as needed Goal urine output of 30mL/hr or 0.5mL/kg/hr Urine output: [ ] Fluid Balance: [ ] ENDOCRINE: Maintain blood glucose between 100-180 at all times. Insulin sliding scale for blood glucose management INFECTIOUS DISEASE: Trend temperature. Combs-culture if febrile. Micro: [ ] MRSA negative Antibiotics: Zosyn HEMATOLOGY & COAGULATION: Monitor H&H. Keep Hgb > 7 Transfuse 1 unit of PRBC for Hgb < 7 Transfuse 1 pack of platelets of platelets < 20, 000 Watch for any signs and symptoms of bleeding SKIN: Pressure ulcer prevention per facility protocol Rehab: PT/OT Prophylaxis: GI: pepcid DVT: [ tedhose ac per cv ] Code Status: Full Resuscitation Disposition: [ICU ] Other: I personally spent 50 minutes of critical care time in treatment of this patient. This includes patient management, time at bedside, time reviewing tests, labs, appropriate images and studies, documentation, and patient care coordination. This time excludes separately billable procedures. Patient was seen and case discussed with purnima POWERS. Plan of care was discussed and agreed upon. ATTESTATION BY PHYSICIAN I have evaluated the patient chart, medical records, and spoke with appropriate staff. I reviewed the documentation, medical decision making, and treatment plan as noted by the mid-level provider above. I agree with the findings and plan of care. CORDELL Bethea MD [facility] Mar 16, 2025 23:15
[2025-03-17] VITALS (105 sets, daily range): BP systolic 87–250; BP diastolic 66–206; PULSE 90–115; RESP 7–18; TEMP 96.8–99.3; O2SAT 94–99
[2025-03-17 03:07] LABS: ABG BASE EXCESS -0.4 mmol/L (-2.0-3.0); ABG HCO3 22.5 mmol/L (21.0-28.0); ABG OXYGEN SATURATION 97.5 % (94.0-98.0); ABG PCO2 31 mmHg (32-45); ABG PH 7.474 (7.350-7.450); CARBON MONOXIDE 1.8 % (0.5-1.5); PO2, ARTERIAL BG 99.5 mmHg (83.0-108.0); TEMPERATURE, CELSIUS BG 37.0 CELSIUS (35.5-37.0); VENT MODE, BG AC (ROOM AIR)
--- NOTE | 2025-03-17 03:31 | HMCIMG ---
EXAM: CR Chest, 1 view CLINICAL HISTORY: Status post CABG. COMPARISON: Chest radiograph dated 03/15/2025. FINDINGS: The endotracheal tube tip is 4 cm above the karl. The gastric tube tip is below the diaphragm and not completely included in this image. The right transjugular sheath tip overlies the proximal SVC. Status poststernotomy. Drainage tubes overlie the mediastinum, right, and left thorax. A probe overlies the cardiac shadow. Mild cardiomegaly, pulmonary vascular congestion, pulmonary edema, diffuse airspace disease throughout the bilateral lungs, and questionable small pleural effusions bilaterally. No pneumothorax. No acute osseous abnormality. IMPRESSION: Mild cardiomegaly, pulmonary vascular congestion, pulmonary edema, diffuse airspace disease throughout the bilateral lungs, and questionable small pleural effusions bilaterally. No interval changes. /Lashonda
[2025-03-17 05:18] LABS: PLATELET COUNT (AUTO) 39 K/uL (130-400); RED BLOOD CELL COUNT(AUTO) 3.40 MIL/uL (4.00-5.50); RED CELL DISTRIBUTION WIDTH 15.9 % (11.0-15.5)
[2025-03-17 05:29] LABS: WHITE BLOOD COUNT (AUTO) 32.7 K/uL (4.8-10.8)
[2025-03-17 05:43] LABS: CREATININE 3.5 mg/dL (0.5-1.0); GLOMERULAR FILTR. RATE CALC 14.0 mL/min (>90); GLUCOSE,RANDOM 157.0 mg/dL (70-105); SODIUM SERUM 141.0 mmol/L (136-145); TOTAL PROTEIN, SERUM 5.1 g/dL (6.0-8.3)
[2025-03-17 05:53] LABS: ASPARTATE AMINOTRANSFERASE 910.0 U/L (10-37); UREA NITROGEN, BLOOD 85.0 mg/dL (7-18)
[2025-03-17 06:01] LABS: LYMPHOCYTES % (MANUAL) 2 % (22-44); MONOCYTES % (MANUAL) 4 % (2-9); NUCLEATED RED BLOOD CELLS 36.1 % (0.0-0.19); SEGMENTED NEUTROPHILS % 94 % (40-70)
[2025-03-17 06:03] LABS: MAN.DIFF COMMENT-IMPRESSION MANUAL DIFFERENTIAL; PLATELET MORPHOLOGY COMMENT MARKED DECREASE
--- NOTE | 2025-03-17 07:59 | PN ---
[facility] CARDIOLOG[facility] PROGRESS NOTE Date Patient Seen: Mar 17, 2025 Time of Visit: 07:58 Interval History: Impella assist 5.5, currently on epinephrine and Impella full support. Overall prognosis is poor. Physical Examination: GENERAL: Intubated, sedated with generalized edema] EYES: [PERRLA, EOMI, conjunctiva and sclera normal.] NECK: [Supple without JVD. There is no tenderness, lymphadenopathy, or masses. No thyromegaly. Normal carotid upstrokes without bruits.] LUNGS: [Ventilated breath sounds bilaterally. With crackles over lower lobes. No wheezes, or rhonchi.] HEART: [Normal rate and rhythm. Normal S1 and S2 without murmurs, gallop or rub. ] VASC: [Peripheral pulses palpable and thready over LLE.] ABD: [Bowel sounds normal, soft, nontender, no masses, no organomegaly. No audible bruits.] : [Not examined] LYMPH: [No lymphadenopathy noted.] EXT: [No clubbing, cyanosis or edema. Right BKA with large edematous blistering of her stump] SKIN: [No rashes or lesions noted.] NEURO: [ Gag reflex and DTR intact.] Laboratory: [ ] Hematology Labs: Test 03/17/25 05:10 03/15/25 19:29 03/15/25 09:30 Range/Units White Blood Count 32.7 *H 4.8-10.8 K/uL Red Blood Count 3.40 L 4.00-5.50 MIL/uL Hemoglobin 10.8 L 12.0-16.0 g/dL Hematocrit 30.2 L 36-48 % Mean Corpuscular Volume 88.8 79-99 fL Mean Corpuscular Hemoglobin 31.8 27.0-33.0 pg Mean Corpuscular Hemoglobin Concent 35.8 32.0-36.0 g/dL Red Cell Distribution Width 15.9 H 11.0-15.5 % Platelet Count 39 L 130-400 K/uL Mean Platelet Volume 7.5-10.5 fL Segmented Neutrophils % 94 H 40-70 % Lymphocytes % (Manual) 2 L 22-44 % Monocytes % (Manual) 4 2-9 % Nucleated Red Blood Cells 36.1 H 0.0-0.19 % Differential Comment MANUAL DIFFERENTIAL White Cell Morphology Comment See comments Platelet Morphology Comment MARKED DECREASE Red Blood Cell Morphology ANISO 1+ Immature Granulocyte % (Auto) 3.7 H 0-1 % Neutrophils (%) (Auto) 88.5 H 40.0-77.0 % Lymphocytes (%) (Auto) 4.5 L 21.0-51.0 % Monocytes (%) (Auto) 2.6 L 3.0-13.0 % Eosinophils (%) (Auto) 0.1 0.0-8.0 % Basophils (%) (Auto) 0.6 0.0-5.0 % Neutrophils # (Auto) 19.1 H 1.8-7.7 K/uL Lymphocytes # (Auto) 1.0 1.0-4.8 K/uL Monocytes # (Auto) 0.6 0.1-1.0 K/uL Eosinophils # (Auto) 0.03 0.00-0.70 K/uL Basophils # (Auto) 0.13 0.00-0.20 K/uL Absolute Immature Granulocyte (auto 0.81 0-1 K/uL Band Neutrophils % 1 0-2 % Reactive Lymphocytes 1 H 0-0 % Chemistry Labs: Test 03/17/25 06:10 03/17/25 05:10 03/16/25 15:22 03/16/25 04:00 Range/Units Whole Blood Glucose 163 H 70-110 MG/DL Sodium Level 141 136-145 mmol/L Potassium Level 4.2 3.5-5.1 mmol/L Chloride Level 101 101-111 mmol/L Carbon Dioxide Level 26 21-32 mmol/L Blood Urea Nitrogen 85 *H 7-18 mg/dL Creatinine 3.5 H 0.5-1.0 mg/dL Glomerular Filtration Rate Calc 14 >90 mL/min Random Glucose 157 H 70-105 mg/dL Total Calcium 8.4 L 8.5-10.1 mg/dL Total Bilirubin 7.8 H 0.2-1.0 mg/dL Aspartate Amino Transf (AST/SGOT) 910 *H 10-37 U/L Alanine Aminotransferase (ALT/SGPT) 399 H 12-78 U/L Alkaline Phosphatase 316 H 50-136 U/L Total Protein 5.1 L 6.0-8.3 g/dL Albumin 2.2 L 3.5-5.0 g/dL Ammonia 16 11-32 umol/L Magnesium Level 2.30 1.80-2.40 mg/dL Coagulation Labs: Test 03/17/25 05:10 03/15/25 19:29 Range/Units Activated Partial Thromboplast Time 58.9 H 26.3-35.5 SEC Prothrombin Time 26.6 #H 9.6-11.6 SEC Prothromb Time International Ratio 2.78 H 0.85-1.15 Diagnostics / Radiology: [Copy/Paste Echos/Imaging Report here] Impression and Plan: 1. Unstable Angina s/p 4vCABG on 03/08/2025 2. Remote anterior wall myocardial infarction July 2024 complicated by cardiogenic shock requiring Impella support for PCI with subsequent ischemic leg requiring [id number] amputation 3. CAD status post stenting of the proximal LAD proximal circumflex and mid circumflex artery 4. Diabetes mellitus type 2 5. Dyslipidemia 6. Hypertension 7. Cardiogenic Shock 8. Anemia] # Severe 2v CAD: The patient presented with chest pain ACS has been ruled out. Lexiscan stress test revealed anterior ischemia 2D echocardiogram revealed a hypokinetic anteroseptal and anterolateral wall. LVEF 40-45% (unchanged from prior July 2024) Coronary angiogram on 03/01/2025 revealed severe two-vessel CAD. CV surgery was consulted and pt is s/p 4v CABG (03-08-25) Following the procedure patient became hypotensive while in the OR, and pt was found to have a nonfunctional GOLDSTEIN , Impella was inserted for MCS and SVG to LAD was placed Current grafts ( SVG-LAD , SVG -Diag, SVG-LPLB, and SVG-RCA) Cardiogenic shock requiring pressors on Impella full support at P7 Continue Asa 81mg qd. Hold statins , due to LFT elevation Rest of care by CV surgery #Thrombocytopenia Transfuse PRBC to a HGb>7. Hb 9.4 hr. 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 Hematology has been consulted. Patient on agatroban # Cardiogenic shock: S/p 4vCABG complicated by a nonfucntional GOLDSTEIN. INTERMACS 2 s/p ( SVG-LAD , SVG -Diag, SVG-LPLB, and SVG-RCA) on 03/08/2025 Impella support at p7 Shock liver: LFTs improving Chest tube output 500 ml overnight TTE preop LVEF 40-45% with anteroseptal hypokiensis. Defer GDMT until off pressors #Acute renal failure Renal function is worsening , Nephrology has been consulted Tolerating intermittent dialysis Thank you for this consult, cardiology will continue to follow along ,post operatively. Defer final decision for goals of care to CV surgery. MD JESSY Arora DANIELLE M MD Mar 17, 2025 07:59
--- NOTE | 2025-03-17 08:34 | HMCIMG ---
CHEST 1VW REASON: s/p cabg, impella COMPARISON: Prior study from 03/16/2025 is available FINDINGS: Single view of the chest was obtained. There is diffuse interstitial pulmonary edema. Patient is status post median sternotomy. The support lines including endotracheal tube and nasogastric tube right internal jugular hemodialysis catheter to be in satisfactory position. There is a left-sided chest tube in place with no evidence of any pneumothorax.. There is no pulmonary vascular congestion. Mediastinum and bony thorax appear unremarkable. IMPRESSION: 1. Status post median sternotomy with cardiac revascularization procedure. 2. All support lines are in satisfactory position 3. Mild diffuse interstitial pulmonary edema 4. Unchanged from prior study.
[2025-03-17] MEDS ORDERED: VASOpressin 20 UNITS/ML 1ML Vi 40 UNITS in 0.9%NACL 50ML 40 ML IV STA (09:16)
--- NOTE | 2025-03-17 09:20 | PN ---
FOLLOWUP PROGRESS NOTE SUBJECTIVE: The patient is seen and evaluated on hemodialysis. Prescription noted. PHYSICAL EXAMINATION: VITAL SIGNS: Blood pressure 115/81. CARDIOVASCULAR: Regular. LUNGS: Coarse. IMPRESSION: Acute renal failure. PLAN: The patient will continue with maximum ultrafiltration as blood pressure allows. The patient continues to be weaned from the pressors. TID: [id number] RECEIPT: [id number]
[2025-03-17 09:37] LABS: ABG BASE EXCESS 0.5 mmol/L (-2.0-3.0); ABG HCO3 23.5 mmol/L (21.0-28.0); ABG OXYGEN SATURATION 98.1 % (94.0-98.0); ABG PCO2 32 mmHg (32-45); ABG PH 7.484 (7.350-7.450); CARBON MONOXIDE 1.8 % (0.5-1.5); DEVICE COMMENT ALINE; PO2, ARTERIAL BG 110.7 mmHg (83.0-108.0); TEMPERATURE, CELSIUS BG 37.0 CELSIUS (35.5-37.0); VENT MODE, BG RICHARD RN (ROOM AIR)
--- NOTE | 2025-03-17 09:52 | PN ---
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 100 UNIT/ML 3ML) 10 unit TIDAC IV 03/15/25 17:00 03/15/25 14:18 DC 03/15/25 13:36 10 UNIT Insulin Human Regular (humuLIN R 100 UNIT/ML 3ML) INSULIN SLIDING SCAL... ACHS SQ 02/24/25 11:30 03/08/25 09:15 DC 03/06/25 20:24 6 UNIT Insulin Human Regular (humuLIN R 100 UNIT/ML 3ML) INSULIN SLIDING SCAL... Q6H6 SQ 03/15/25 12:00 04/14/25 11:59 03/15/25 11:05 16 UNIT Insulin Human Regular 100 unit/ Sodium Chloride 100 ml @ 0 mls/hr AD IV 03/08/25 09:30 03/10/25 09:29 DC 03/09/25 16:20 2 MLS/HR Insulin Human Regular 100 unit/ Sodium Chloride 100 ml @ 0 mls/hr PROTOCOL PRN IV ELEVATED BLOOD GLUCOSE 03/15/25 15:00 04/14/25 14:59 03/17/25 06:15 7 MLS/HR Iron Sucrose 300 mg/Sodium Chloride 250 ml @ 83 mls/hr HS IV 03/12/25 21:00 03/15/25 00:01 DC 03/14/25 19:55 83 MLS/HR Iron Sucrose 300 mg/Sodium Chloride 250 ml @ 83 mls/hr Q24H IV 03/12/25 15:30 03/14/25 18:31 Cancel Isosorbide Mononitrate (Imdur 30mg Sr) 30 mg DAILY PO 02/24/25 09:00 03/06/25 11:46 DC 03/06/25 08:13 30 MG Isosorbide Mononitrate (Imdur 30mg Sr) 60 mg DAILY PO 03/07/25 09:00 03/08/25 09:15 DC 03/07/25 08:47 60 MG Ketorolac Tromethamine (ketOROlac troMETHamine) 15 mg Q6H PRN PO MODERATE PAIN (4-6) 03/03/25 18:00 03/03/25 16:22 DC Lactulose (Constulose 20gm/ 30ml Udcup) 20 gm BID PO 03/12/25 21:00 04/11/25 20:59 03/15/25 20:24 20 GM Lactulose (Constulose 20gm/ 30ml Udcup) 20 gm BID PRN PO CONSTIPATION 03/08/25 09:30 04/07/25 09:29 03/12/25 16:26 20 GM Lactulose (Constulose 20gm/ 30ml Udcup) 20 gm BID PRN PO CONSTIPATION 03/12/25 16:30 03/12/25 16:20 DC Magnesium Hydroxide (Milk Of Magnesium 30ml) 30 ml DAILY PRN PO CONSTIPATION 03/08/25 09:30 04/07/25 09:29 Magnesium Sulfate 50 ml @ 12.5 mls/hr AD PRN IV MAG LEVEL LESS THAN 2.0 03/08/25 09:30 04/07/25 09:29 03/12/25 22:19 12.5 MLS/HR Magnesium Sulfate 50 ml @ 0 mls/hr PROTOCOL PRN IV low mag level 02/24/25 09:30 03/09/25 15:49 DC Metoprolol Succinate (TopROL XL) 12.5 mg DAILY PO 02/24/25 09:00 03/06/25 18:49 DC 03/03/25 08:36 12.5 MG Midodrine (PROAMatine 5 MG TABLET) 10 mg TID PO 03/03/25 14:00 03/08/25 09:15 DC 03/07/25 14:38 10 MG Morphine Sulfate (morPHINE 2MG SYG) 0.5 mg Q2H PRN IV MODERATE PAIN (4-6) 03/08/25 09:30 03/09/25 09:29 DC Morphine Sulfate (morPHINE 2MG SYG) 1 mg Q2H PRN IV SEVERE PAIN (7-10) 03/08/25 09:30 03/09/25 09:29 DC Multi-Ingred Cream/Lotion/Oil/ Oint (Artificial Tears Eye Oint) 1 APPL HS OU 03/14/25 21:00 04/13/25 20:59 03/16/25 20:33 1 APPL Nitroglycerin (Nitrostat) 0.4 mg Q5M PRN SL CHEST PAIN 02/24/25 06:00 03/06/25 08:51 DC 03/06/25 08:50 0.4 MG Nitroglycerin/ Dextrose 0 ml @ 0 mls/hr AD IV 03/08/25 09:30 03/11/25 09:29 DC Norepinephrine Bitartrate 250 ml @ 0 mls/hr AD PRN IV TITRATE 03/08/25 07:00 03/08/25 23:13 DC Norepinephrine Bitartrate (Norepineph 16 Mg/250ml NS Premix) PER PROTOCOL PROTOCOL IV 03/08/25 23:30 04/07/25 23:29 03/16/25 19:21 16 MG Norepinephrine Bitartrate 8 mg/ Dextrose 250 ml @ 0 mls/hr AD PRN IV POST-OP CARDIOVASCULAR ORDERS 03/08/25 09:30 03/08/25 09:30 DC Ondansetron HCl (zoFRAN 4MG INJ) 4 mg Q6H PRN IV NAUSEA/VOMITING 03/08/25 09:30 04/07/25 09:29 Pharmacy Profile Note (Pharmacy Communication) 1 each ONCE MISC 03/14/25 08:00 03/14/25 12:36 DC Phytonadione 10 mg/Sodium Chloride 51 ml @ 100 mls/hr Q24H IVPB 03/10/25 01:00 03/12/25 01:31 DC 03/12/25 00:27 100 MLS/HR Piperacillin Sod/ Tazobactam Sod (Zosyn 3.375gm+NS 50ml) 3.375 gm Q8H IVPB 03/10/25 10:30 03/20/25 10:29 03/17/25 01:59 3.375 GM Polyethylene Glycol (MIRalax 3350 17 GM POWD.PACK) 17 gm DAILY PO 03/13/25 09:00 04/12/25 08:59 03/14/25 09:26 17 GM Potassium Phosphate 250 ml @ 42 mls/hr AD PRN IV LOW PHOS LEVEL 03/08/25 09:30 04/07/25 09:29 03/09/25 08:23 42 MLS/HR Potassium Chloride 100 ml @ 50 mls/hr AD PRN IV POTASSIUM PROTOCOL 02/24/25 09:30 03/08/25 09:15 DC Potassium Chloride 100 ml @ 100 mls/hr AD PRN IV POTASSIUM PROTOCOL 02/26/25 11:30 02/27/25 09:49 DC Potassium Chloride 100 ml @ 100 mls/hr AD PRN IV HYPOKALEMIA 03/08/25 09:30 04/07/25 09:29 03/09/25 05:37 100 MLS/HR Potassium Chloride (K-Dur/Klor-Con 20meq) 20 meq AD PRN PO POTASSIUM PROTOCOL 02/26/25 11:30 03/08/25 09:15 DC 03/07/25 05:23 20 MEQ Potassium Chloride (KCl 10% Elixir 20meq/15ml) 20 meq AD PRN PO POTASSIUM PROTOCOL 02/26/25 11:30 03/08/25 09:15 DC Prasugrel (Effient 10mg) 10 mg DAILY PO 02/25/25 09:00 03/01/25 12:54 DC 02/28/25 09:18 10 MG Propofol 100 ml @ 0 mls/hr AD PRN IV SEDATION 03/08/25 09:30 03/12/25 09:29 DC Prothrombin Complex Concent (Human) (Kcentra 500 Unit Kit) 500 unit ONCE IV 03/10/25 12:00 03/10/25 12:24 DC Sodium Bicarbonate 25 meq/Dextrose 1,000 ml @ 0 mls/hr Q0M PRN IVP OTHER [SEE ORDER COMMENTS] 03/10/25 22:30 04/09/25 22:29 03/15/25 05:29 10 MLS/HR Sodium Bicarbonate (Sodium Bicarb 50meq 50ml Vial) 50 meq AD PRN IV OTHER[SEE DOSING INSTRUCTIONS] 03/08/25 09:30 03/11/25 09:29 DC 03/10/25 04:56 100 MEQ Sodium Chloride 500 ml @ 0 mls/hr AD IV 03/08/25 09:30 04/07/25 09:29 03/16/25 19:18 3 MLS/HR Sodium Chloride 1,000 ml @ 0 mls/hr ONCE IV 03/12/25 18:00 03/13/25 13:09 DC Sodium Chloride 1,000 ml @ 0 mls/hr ONCE IV 03/13/25 13:30 04/12/25 13:29 03/15/25 10:20 1,000 MLS/HR Sodium Chloride 1,000 ml @ 10 mls/hr ONCE IV 03/08/25 09:30 03/09/25 09:29 DC Sodium Chloride 1,000 ml @ 150 mls/hr Q6H40M IV 03/01/25 12:30 03/01/25 16:29 DC 03/01/25 19:04 150 MLS/HR Sodium Chloride (NS 50ml) 50 ml AD IV 03/10/25 10:30 03/10/25 16:27 DC Sodium Chloride (NS Flush 10ml) 10 ml Q8H PRN IVP IV LINE FLUSH 03/08/25 09:30 04/07/25 09:29 Tramadol HCl (UltRAM) 50 mg Q6H PRN PO MODERATE PAIN (4-6) 03/08/25 09:30 03/13/25 09:29 DC Tramadol HCl (UltRAM) 100 mg Q6H PRN PO SEVERE PAIN (7-10) 03/08/25 09:30 03/13/25 09:29 DC Vasopressin 40 units/Sodium Chloride 40 ml @ 0 mls/hr PROTOCOL IV 03/08/25 17:00 04/07/25 16:59 03/10/25 19:26 2.4 MLS/HR Vasopressin 40 units/Sodium Chloride 40 ml @ 0 mls/hr PROTOCOL STAT IV 03/17/25 09:16 03/17/25 09:25 DC Vitamin B Complex (Vitamin B-12) 1,000 mcg DAILY PO 03/12/25 15:30 04/11/25 15:29 03/17/25 09:29 1,000 MCG DIAGNOSTICS / RADIOLOGY: [ ] Assessment: Severe 2 vessel CAD -S/P 4v CABG with impella support on 03-08-[address] Barajas Acute on chronic HFmrEF (LVEF: 40-45% by echo done on 02/25/2025, LVEF 30% on 03.14.25) Cardiogenic shock SCAI Stage D with multiorgan dysfunction , not POA - secondary to complex nature of the procedure and preexisting comorbidities . Multiorgan dysfunction including shock Liver , Acute Kidney failure , respiratory failure -post procedure secondary to complex nature of the CABG and preexisting comorbidities . Anemia , Poa Acute blood loss anemia , s/p surgery - expected . Thrombocytopenia-rule out HIT Severe protein calorie malnutrition with muscle atrophy ; BMI 14.2 NOT POA, expected secondary to comorbidities History of Myocardial infarction 2023 Unstable angina s/p Lexiscan Reversible large defect in the anterior, septal lucas. TID 1.19. LVEF 39%. CAD status post stenting of the proximal LAD proximal circumflex and mid circumflex artery as above with documented progression of disease December 2024 managed medically because of concern the patient would not be compliant with dual antiplatelet therapy Remote anterior wall myocardial infarction July 2024 complicated by cardiogenic shock requiring Impella support for PCI with subsequent ischemic leg requiring [id number] amputation Uncontrolled hypertension POA Hyperlipidemia Uncontrolled diabetes mellitus type 2 with hyperglycemia POA Non compliance to medications, POA Hypercoagulable state on Prasugrel POA Functional decline: s/p Rt BKA POA PLAN: patient remains admitted to the ICU, intubated, mechanical ventilation, BP 120/108, heart rate of 86, saturating 99% on mechanical ventilation, FiO2 of 60%. CBC with a persistent leukocytosis of 32.7, hemoglobin 9.8, hematocrit 10.8, platelet count of 39. Echocardiogram 03/14/2030, left ventricular cavity size is normal, Impella device present and we will sitting in the left ventricle, LVEF 30-35%. Cardiothoracic input noted and appreciated, we will continue to monitor. Hematology input noted and appreciated, the patient with a possible heparin induced thrombocytopenia thrombus cytopenia, patient remains on argatroban drip. Patient is started on dexamethasone 20 mg IV daily. Cardiology input noted and appreciated, continue Impella assist device, continue high-dose epinephrine. Physical examination, overall condition remains unchanged, with patient's Rt BKA stump, left foot , rt and left hands showing erythema with blebs and mottling on the skin suggestive of worsening ischemia and is cold to touch. Overall prognosis of this patient remains extremely poor and guarded. NEURO: Minimize central acting medications as possible. Fall Precautions. Well lighted room through the day and minimize interruptions through the night to prevent acute delirium. PULMONARY: Supplemental 02 as needed BiPAP as necessary, for respiratory distress Titrate Fio2 to keep Spo2 > or = 90% DuoNebs and CPT as needed IS hourly while awake for pulmonary hygiene prn Out of bed to chair as tolerated Maintain aspiration precautions at all times CARDIOVASCULAR: Follow hemodynamics. Vital signs per facility protocol GI & NUTRITION: Continue nutritional support Aspirations precautions Prokinetic agents and laxatives as needed KIDNEYS & ELECTROLYTES: Strict monitoring of intake and output Daily weights Avoid nephrotoxic agents Monitor electrolytes and replace as needed Goal urine output of 30mL/hr or 0.5mL/kg/hr Medications to be dosed according to renal function. Avoid contrast if possible ENDOCRINE: Maintain blood glucose between 100-180 at all times. Insulin sliding scale for blood glucose management Hypoglycemia and hyperglycemia protocol in place INFECTIOUS DISEASE: Trend temperature, WBC and procalcitonin level Follow cultures, deescalate antibiotics as soon as possible. Panculture if new onset fever HEMATOLOGY & COAGULATION: Monitor H&H. Keep Hgb > 7 Transfuse 1 unit of PRBC for Hgb < 7 Transfuse 1 pack of platelets of platelets < 20, 000 Watch for any signs and symptoms of bleeding SKIN: Pressure ulcer prevention per facility protocol Specialty mattress as needed ORTHO/REHAB Continue PT/OT PRN: MEDICATIONS Tylenol 650 mg po every 4 hrs for fever zofran 4 mg IV every 6 hrs for n/v Hydralazine 5 mg IV every 4 hrs systolic pressure > 160 bowel regiment: lactulose 20 gm PO BID PRN constipation Supportive measures: Continue GI and DVT prophylaxis Disposition: Pending improvement in clinical condition All questions answered time spent: > 35 min MAIKEL DISLA MD Mar 17, 2025 09:52
[2025-03-17] MEDS: ALBUMIN (HUMAN) 25% 50 ML IV.SOLN. IV ONE (10:08)
--- NOTE | 2025-03-17 11:11 | PN ---
[facility] PROGRESS NOTE Date Patient Seen: Mar 17, 2025 Time of Visit: 11:11 Supervising Physician: Dr. Stafford Primary Care Physician: Agnieszka Carney Outpatient Specialists: [ Inpatient Consults: Dr Perla, CV DR Morocho, DR Nance PROBLEM LIST: CAD -S/P 4v CABG 03-08-[address] Barajas Acute on chornic HFmrEF (LVEF: 40-45% by echo done on 02/25/2025) Cardiogenic shock SCAI Stage D with multiorgan dysfunction , not POA - secondary to complex nature of the procedure and preexisting comorbidities . Multiorgan dysfunction Acute liver failure Unstable Angina POA Remote anterior wall myocardial infarction July 2024 complicated by cardiogenic shock requiring Impella support for PCI with subsequent ischemic leg requiring nwkgy-upf-zorr amputation CAD status post stenting of the proximal LAD proximal circumflex and mid ci rcumflex artery as above with documented progression of disease December 2024 managed medically because of concern the patient would not be compliant with dual antiplatelet therapy Diabetes mellitus type 2 Dyslipidemia Severe protein calorie malnutrition BMI 14.2 Hypercoagulable state on Prasugrel POA Functional decline: s/p Rt BKA POA comorbidities: HX of ACS-STEMI s/p PCI with VIANEY placement (BSS 3.0x20 mm) in the proximal LAD, VIANEY placement (BSS 3.5x16 mm) in the proximal LCx, VIANEY placement (BSS 3.0x12 mm) in the mid LCx, and VIANEY placement (BSS 2.75x24 mm) in the distal LCx done on 07/17/2024 Hx of Intraprocedural VT in July 2024 HX of cardiogenic shock requiring Impella placement in July 2024 HX of Right lower extremity ischemia secondary to Impella placement resulting in RLE limb ischemia s/p right BKA Hx of Ischemic cardiomyopathy Hx of Medication noncompliance Hx of Hypertension ] INTERVAL HISTORY: 03/16/25- Pt in multiorgan dysfunction. Continues on Impella MCS on P8, continues on mechanical ventilation not breathing over the vent. FIO2 requirements 60%. All 4 extremities with necrosis to distal ends. Sclera is icteric and pt appears with increased swelling to face. She continues on argatroban gtt and insulin gtt as well as epi gtt at 0.02mcg/kg/min. mediastinal chest tube drained 250 ml in the last 24 hours. Urine output. Urine output 1.9L. white count elevated but trending down. 20.1, HH stable 9.8/26.9 platelet 33 K. chemistry chloride 100 BUN 67 creatinine of 2.9 GFR of 18 glucose total calcium of eight J Lusi three magnesium is 0.3 liver enzymes elevated but trending down. X-ray with a later infiltrates effusion. Mediastinum and left chest tubes he is eight Impella five nine in good position. Right IJ cordis and ET tube in good position. No pneumothorax noted. we will continue to follow CV and cardiology re cs. 03/17/2025: With the time of my evaluation, the patient lying in bed, remain generally in the same condition. She remains intubated and mechanically vented. Currently AC mode 60% . Vital signs are unremarkable. Laboratory data showed a significant increase of WBC, today 32.7. H and H stable and platelet count showed a slight increase to 39. Chemistry panel showed a BUN of , creatinine of 58, creatinine of 3.5 And a GFR of 14. Liver parameters improving. Patient still coagulopathic. Chest x-ray today showed stable post sternotomy changes, satisfactory position of all line, persisting mild diffuse pulmonary edema and no significant change from prior studies. During my visit, the patient was undergoing hemodialysis as scheduled with a goal of 2 L today. Patient remains on argatroban, vasopressin, epinephrine and levo drip. No other major changes. REVIEW OF SYSTEMS: unable to perform PHYSICAL EXAM: GENERAL: critically ill intubated HEENT: Sclera non icteric, moist mucosa NECK: Supple, no JVD, trachea midline , impella 5.5 LUNGS: diminished breath sounds bilaterally. No wheezes HEART: Regular rate and rhythm. Normal S1 and S2, without murmurs, chest tube in place ABD: Abdomen soft, nontender. Bowel sounds present EXT: No clubbing cyanosis or edema rt BKA NEURO: Deferred. Vital Signs (last 8hr) Date Time Temp Pulse Resp B/P (MAP) Pulse Ox O2 Delivery O2 Flow Rate FiO2 03/17/25 10:30 109 16 130/94 (106) 100 03/17/25 10:15 109 16 133/98 (110) 100 03/17/25 10:07 80/77 03/17/25 10:00 104 16 120/85 (97) 98 60 03/17/25 09:45 114 13 87/78 (81) 90 03/17/25 09:30 115 11 90/77 (81) 98 03/17/25 09:30 104 60 03/17/25 09:15 104 16 120/85 (97) 98 03/17/25 09:14 98.6 Ventilator 60 03/17/25 09:00 106 16 115/77 (90) 99 60 03/17/25 08:45 106 16 111/78 (89) 99 03/17/25 08:30 106 16 114/78 (90) 99 03/17/25 08:15 107 14 113/78 (90) 99 03/17/25 08:00 108 14 112/78 (89) 99 60 03/17/25 08:00 60 03/17/25 08:00 99 Ventilator+ 60 03/17/25 07:45 107 14 120/82 (95) 99 03/17/25 07:30 107 16 119/82 (94) 99 03/17/25 07:20 98.1 Ventilator 60 03/17/25 07:15 107 16 115/81 (92) 100 03/17/25 07:00 98.1 107 16 117/82 (94) 100 03/17/25 06:45 111 16 112/78 (89) 100 03/17/25 06:30 107 16 119/82 (94) 100 03/17/25 06:15 107 60 03/17/25 06:15 107 16 121/83 (96) 100 03/17/25 06:00 108 16 118/83 (95) 97 60 03/17/25 05:45 108 16 124/87 (99) 97 03/17/25 05:30 107 16 118/85 (96) 99 03/17/25 05:15 106 16 96/75 (82) 97 03/17/25 05:00 107 16 103/78 (86) 98 60 03/17/25 04:45 107 16 111/80 (90) 98 03/17/25 04:30 107 16 107/77 (87) 98 03/17/25 04:15 107 16 109/78 (88) 99 03/17/25 04:04 60 03/17/25 04:04 98 Ventilator+ 60 03/17/25 04:00 99.0 107 16 107/78 (88) 98 60 03/17/25 03:54 104 60 03/17/25 03:45 107 16 106/77 (87) 99 03/17/25 03:30 106 16 108/78 (88) 98 03/17/25 03:15 106 16 108/75 (86) 98 LABS: Hematology Labs: Test 03/17/25 05:10 03/15/25 19:29 Range/Units White Blood Count 32.7 *H 4.8-10.8 K/uL Red Blood Count 3.40 L 4.00-5.50 MIL/uL Hemoglobin 10.8 L 12.0-16.0 g/dL Hematocrit 30.2 L 36-48 % Mean Corpuscular Volume 88.8 79-99 fL Mean Corpuscular Hemoglobin 31.8 27.0-33.0 pg Mean Corpuscular Hemoglobin Concent 35.8 32.0-36.0 g/dL Red Cell Distribution Width 15.9 H 11.0-15.5 % Platelet Count 39 L 130-400 K/uL Mean Platelet Volume 7.5-10.5 fL Segmented Neutrophils % 94 H 40-70 % Lymphocytes % (Manual) 2 L 22-44 % Monocytes % (Manual) 4 2-9 % Nucleated Red Blood Cells 36.1 H 0.0-0.19 % Differential Comment MANUAL DIFFERENTIAL White Cell Morphology Comment See comments Platelet Morphology Comment MARKED DECREASE Red Blood Cell Morphology ANISO 1+ Immature Granulocyte % (Auto) 3.7 H 0-1 % Neutrophils (%) (Auto) 88.5 H 40.0-77.0 % Lymphocytes (%) (Auto) 4.5 L 21.0-51.0 % Monocytes (%) (Auto) 2.6 L 3.0-13.0 % Eosinophils (%) (Auto) 0.1 0.0-8.0 % Basophils (%) (Auto) 0.6 0.0-5.0 % Neutrophils # (Auto) 19.1 H 1.8-7.7 K/uL Lymphocytes # (Auto) 1.0 1.0-4.8 K/uL Monocytes # (Auto) 0.6 0.1-1.0 K/uL Eosinophils # (Auto) 0.03 0.00-0.70 K/uL Basophils # (Auto) 0.13 0.00-0.20 K/uL Absolute Immature Granulocyte (auto 0.81 0-1 K/uL Chemistry Labs: Test 03/17/25 11:06 03/17/25 05:10 03/16/25 15:22 03/16/25 04:00 Range/Units Whole Blood Glucose 127 H 70-110 MG/DL Sodium Level 141 136-145 mmol/L Potassium Level 4.2 3.5-5.1 mmol/L Chloride Level 101 101-111 mmol/L Carbon Dioxide Level 26 21-32 mmol/L Blood Urea Nitrogen 85 *H 7-18 mg/dL Creatinine 3.5 H 0.5-1.0 mg/dL Glomerular Filtration Rate Calc 14 >90 mL/min Random Glucose 157 H 70-105 mg/dL Total Calcium 8.4 L 8.5-10.1 mg/dL Total Bilirubin 7.8 H 0.2-1.0 mg/dL Aspartate Amino Transf (AST/SGOT) 910 *H 10-37 U/L Alanine Aminotransferase (ALT/SGPT) 399 H 12-78 U/L Alkaline Phosphatase 316 H 50-136 U/L Total Protein 5.1 L 6.0-8.3 g/dL Albumin 2.2 L 3.5-5.0 g/dL Ammonia 16 11-32 umol/L Magnesium Level 2.30 1.80-2.40 mg/dL Coagulation Labs: Test 03/17/25 05:10 03/15/25 19:29 Range/Units Activated Partial Thromboplast Time 58.9 H 26.3-35.5 SEC Prothrombin Time 26.6 #H 9.6-11.6 SEC Prothromb Time International Ratio 2.78 H 0.85-1.15 DIAGNOSTICS / RADIOLOGY RESULTS: [ ] PLAN 03/17/2025: Continue current management for the patient. We will continue to adjust ventilator setting based on ABG Agree with general surgery consultation for tracheostomy. Continue to monitor chest tube on Manjarrez catheter output. We will continue to monitor the lung field with serial chest x-rays. Continue the nutritional support via the OG with free water flushes and monitor for increased residuals. The patient will continue with renal replacement therapy. We will replete electrolytes as necessary. Continue argatroban drip and support pressor therapy Follow treating specialist recommendations. NEURO: Minimize central acting medications as possible. Fall Precautions. Well lighted room through the day and minimize interruptions through the night to prevent acute delirium. PULMONARY: Supplemental 02 as needed Titrate Fio2 to keep Spo2 > or = 90% DuoNebs and CPT as needed IS hourly while awake for pulmonary hygiene Out of bed to chair as tolerated VAP Bundle Ventilator per CV protocol CARDIOVASCULAR: Follow hemodynamics. Titrate vasopressor to keep MAP >65 or systolic blood pressure >95mmHg DRIPS: epi argatroban insulin LINES: cvc impella chest tube et tube og tube A-line manjarrez GI & NUTRITION: Continue nutritional support Aspirations precautions Prokinetic agents and laxatives as needed KIDNEYS & ELECTROLYTES: Strict monitoring of intake and output Daily weights Avoid nephrotoxic agents Monitor electrolytes and replace as needed Goal urine output of 30mL/hr or 0.5mL/kg/hr Urine output: [ ] Fluid Balance: [ ] ENDOCRINE: Maintain blood glucose between 100-180 at all times. Insulin sliding scale for blood glucose management INFECTIOUS DISEASE: Trend temperature. Combs-culture if febrile. Micro: [ ] MRSA negative Antibiotics: Zosyn HEMATOLOGY & COAGULATION: Monitor H&H. Keep Hgb > 7 Transfuse 1 unit of PRBC for Hgb < 7 Transfuse 1 pack of platelets of platelets < 20, 000 Watch for any signs and symptoms of bleeding SKIN: Pressure ulcer prevention per facility protocol Rehab: PT/OT Prophylaxis: GI: Protonix DVT: [ tedhose ac per cv ] Code Status: Full Resuscitation Disposition: [ICU ] Other: I personally spent 50 minutes of critical care time in treatment of this patient. This includes patient management, time at bedside, time reviewing tests, labs, appropriate images and studies, documentation, and patient care coordination. This time excludes separately billable procedures. Patient was seen and case discussed with purnima POWERS. Plan of care was discussed and agreed upon. AYLEEN NAVA NP Mar 17, 2025 11:11
--- NOTE | 2025-03-17 12:08 | NUR ---
Nutritional Note: Chart, meds, and labs Reviewed. RD screened pt due to increas lOS and evaluation of nutritional support. Pt is intubated and sedated initiated on trickle feeds Nepro @20ml/hr meets 60-70% of estimated needs. Recommend: -consider change in TF to Vital AF -Continue trickle feeds of Nepro untile hemodynamically stable and able to tolerate advancement. -Goal rate 45ml/hr with 150ml H20 flush q 6 or H20 flush as per MD. -Monitor feeds, check phosphorus, mg and k daily -Monitor fluid status and volume overload. - Electrolyte replacements per protocol -Monitor feeding tolerance, %, wt, and labs -If No BM >3days consider bowel stimulant. -Schedule outpatient RD f/u for long-term nutrition care. - Notify RD if additional nutrition concerns arise. SEE RD Nutritional Assessment for additional assessment information. Addendum: 03/17/25 at [address] Amended: Links added.
--- NOTE | 2025-03-17 13:26 | NUR ---
TUBE FEEDS ON HOLD RESIDUAL GREATER THAN 200ML. TF ON HOLD. BENCHMARK PLANT AND MACHINERY VALUER AT BEDSIDE AND AWARE. KUB ORDERED.
--- NOTE | 2025-03-17 13:28 | NUR ---
MD ANDREW AT BEDSIDE ROUNDING. PTT AT 50 ON Argatroban DRIP. NEW ORDERS RECEIVED TO INCREASED DOSE BY 10%
--- NOTE | 2025-03-17 14:06 | NUR ---
RAMON KOENIG PHONE # [phone] WILL BE GOING BACK TO HOME [facility] THIS WEEK.
--- NOTE | 2025-03-17 14:31 | PN ---
A 59-year-old female who has had a prolonged hospital course. She initially presented with chest pain. The patient eventually underwent coronary catheterization that revealed 3-vessel disease. The patient is status post CABG. The patient has developed acute renal failure postoperatively. The patient remains intubated in the ICU. The patient continues with the pressors. She was also noted to have hyperkalemia and was treated medically. Patient continues to be intubated. The patient was started on argatroban. Platelet count continued to be low. Patient with multiorgan failure. The patient continues to be bleeding from the tubes. There is plan for tracheostomy to be done on this patient later on PHYSICAL EXAMINATION: VITAL SIGNS: Blood pressure is 101/69, pulse in the 100s. She is afebrile. GENERAL: She is a chronically ill female, lying in bed in the medical floor. HEENT: Head is atraumatic. Pupils equal and reactive to light. Oropharynx, ET tubes in place. NECK: Supple. There is no JVP. CARDIOVASCULAR: Regular. There is no S3 or S4 gallop. LUNGS: Coarse with equal thoracic movement. ABDOMEN: Soft, nondistended, nontender. EXTREMITIES: There is no edema. NEUROLOGICAL: She is sedated with the vent. SKIN: No rashes or nodules. BACK: There is no CVA tenderness. No back deformities. IMPRESSION: 1. Leukocytosis 2. Anemia 3. Thrombocytopenia 4. Liver failure 5. Acute renal failure 6. Coronary artery disease status post CABG 7. Transfusion is a patient to have multiple blood product transfusion including 17 red cells, 9 platelet, 4 fresh frozen plasma and 1 whole blood. Plan 1. There is plan for tracheostomy to be done on this patient. We have to stop argatroban 2 hours before procedure 2. There was hypersegmented neutrophils. This patient to continue on folic acid 1 mg p.o. daily and vitamin B12 1000 mcg p.o. daily. 3. Peripheral smear actually showed nucleated blood cells very mature cell. The patient could have hemolysis or could have also myeloproliferative disorder to start with. So this patient may be will need bone marrow biopsy to be done later on. 4. Cardiothoracic wanted the patient to be on argatroban. We will continue the goal of PTT to be between 6070. The previous PTT is around 50. We will increase the dose of argatroban by 10% 5. This patient could benefit actually from dexamethasone 20 mg IV daily 6. Continue care as per plasma processing technician There is no need for anticoagulation only as for prophylaxis. It seems the patient is on aspirin. 7. This patient could benefit from IV iron. 8. This patient with multiorgan failure. Patient have very poor prognosis. Patient continued to be full code. Vitals/Labs Vital Signs Date Time Temp Pulse Resp B/P (MAP) Pulse Ox O2 Delivery O2 Flow Rate FiO2 03/17/25 12:45 98 16 146/99 (115) 97 03/17/25 12:43 99.0 Ventilator 60 Laboratory Tests 03/17/25 05:10 Medications Current Medications Nitroglycerin 0.4 mg Q5M PRN SL Last administered on 03/06/25at 08:50; Start 02/24/25 at 06:00; Stop 03/06/25 at 08:51; Status DC Heparin Sodium/ Dextrose 250 ml @ 0 mls/hr PROTOCOL PRN IV Last administered on 02/25/25at 01:09; Start 02/24/25 at 06:00; Stop 02/25/25 at 05:59; Status DC Morphine Sulfate 2 mg ONCE ONCE IVP Last administered on 02/24/25at 06:38; Start 02/24/25 at 06:00; Stop 02/24/25 at 06:01; Status DC Aspirin 325 mg ONCE ONCE PO; Start 02/24/25 at 06:00; Stop 02/24/25 at 06:01; Status DC Heparin Sodium (Porcine) 5,000 unit STK-MED ONCE .ROUTE; Start 02/24/25 at 06:17; Stop 02/24/25 at 06:17; Status DC Heparin Sodium (Porcine) 3,000 unit ONCE ONCE IV Last administered on 02/24/25at 06:38; Start 02/24/25 at 06:30; Stop 02/24/25 at 06:31; Status DC Acetaminophen 650 mg Q4H PRN PO Last administered on 03/01/25at 19:06; Start 02/24/25 at 07:00; Stop 03/26/25 at 06:59 Famotidine 20 mg BID PO Last administered on 03/07/25at 20:29; Start 02/24/25 at 09:00; Stop 03/09/25 at 10:34; Status DC Atorvastatin Calcium 20 mg HS PO; Start 02/24/25 at 21:00; Stop 02/24/25 at 08:52; Status DC Aspirin 81 mg DAILY PO; Start 02/24/25 at 09:00; Stop 02/24/25 at 08:52; Status DC Isosorbide Mononitrate 30 mg DAILY PO Last administered on 03/06/25at 08:13; Start 02/24/25 at 09:00; Stop 03/06/25 at 11:46; Status DC Atorvastatin Calcium 40 mg HS PO Last administered on 03/11/25at 20:11; Start 02/24/25 at 21:00; Stop 03/12/25 at 08:25; Status DC Metoprolol Succinate 12.5 mg DAILY PO Last administered on 03/03/25at 08:36; Start 02/24/25 at 09:00; Stop 03/06/25 at 18:49; Status DC Magnesium Sulfate 50 ml @ 0 mls/hr PROTOCOL PRN IV; Start 02/24/25 at 09:30; Stop 03/09/25 at 15:49; Status DC Potassium Chloride 100 ml @ 50 mls/hr AD PRN IV; Start 02/24/25 at 09:30; Stop 03/08/25 at 09:15; Status DC Insulin Human Regular INSULIN SLIDING SCAL... ACHS SQ Last administered on 03/06/25at 20:24; Start 02/24/25 at 11:30; Stop 03/08/25 at 09:15; Status DC Prasugrel 10 mg DAILY PO Last administered on 02/28/25at 09:18; Start 02/25/25 at 09:00; Stop 03/01/25 at 12:54; Status DC Citalopram Hydrobromide 10 mg DAILY PO Last administered on 03/10/25at 08:16; Start 02/25/25 at 09:00; Stop 03/27/25 at 08:59 Aspirin 81 mg ONCE ONCE PO Last administered on 02/24/25at 17:45; Start 02/24/25 at 17:00; Stop 02/24/25 at 17:01; Status DC Aspirin 81 mg DAILY PO Last administered on 02/28/25at 09:18; Start 02/25/25 at 09:00; Stop 03/01/25 at 12:33; Status DC Potassium Chloride 100 ml @ 100 mls/hr AD PRN IV; Start 02/26/25 at 11:30; Stop 02/27/25 at 09:49; Status DC Potassium Chloride 20 meq AD PRN PO; Start 02/26/25 at 11:30; Stop 03/08/25 at 09:15; Status DC Potassium Chloride 20 meq AD PRN PO Last administered on 03/07/25at 05:23; Start 02/26/25 at 11:30; Stop 03/08/25 at 09:15; Status DC Regadenoson 0.4 mg STK-MED ONCE IVP; Start 02/27/25 at 07:38; Stop 02/27/25 at 07:40; Status DC Lidocaine HCl 20 ml STK-MED ONCE .ROUTE; Start 03/01/25 at 11:08; Stop 03/01/25 at 11:08; Status DC Iohexol 35,000 mg STK-MED ONCE IV; Start 03/01/25 at 11:08; Stop 03/01/25 at 11:08; Status DC Heparin Sodium (Porcine) 10,000 unit STK-MED ONCE .ROUTE; Start 03/01/25 at 11:08; Stop 03/01/25 at 11:09; Status DC Heparin Sodium/ Sodium Chloride 1,000 ml @ As Directed STK-MED ONCE IV; Start 03/01/25 at 11:09; Stop 03/01/25 at 11:09; Status DC Nitroglycerin 50 mg STK-MED ONCE .ROUTE; Start 03/01/25 at 11:09; Stop 03/01/25 at 11:09; Status DC Verapamil HCl 5 mg STK-MED ONCE .ROUTE; Start 03/01/25 at 11:10; Stop 03/01/25 at 11:10; Status DC Atropine Sulfate 1 mg STK-MED ONCE IVP; Start 03/01/25 at 11:39; Stop 03/01/25 at 11:39; Status DC Fentanyl Citrate 100 mcg STK-MED ONCE .ROUTE; Start 03/01/25 at 11:39; Stop 03/01/25 at 11:40; Status DC Midazolam HCl 2 mg STK-MED ONCE .ROUTE; Start 03/01/25 at 11:39; Stop 03/01/25 at 11:40; Status DC Dopamine HCl/ Dextrose 0 ml @ As Directed STK-MED ONCE IV; Start 03/01/25 at 11:40; Stop 03/01/25 at 11:40; Status DC Prasugrel 10 mg STK-MED ONCE .ROUTE; Start 03/01/25 at 12:15; Stop 03/01/25 at 12:15; Status DC Aspirin 81 mg STK-MED ONCE .ROUTE; Start 03/01/25 at 12:15; Stop 03/01/25 at 12:15; Status DC Sodium Chloride 1,000 ml @ 150 mls/hr Q6H40M IV Last administered on 03/01/25at 19:04; Start 03/01/25 at 12:30; Stop 03/01/25 at 16:29; Status DC Aspirin 81 mg DAILY PO Last administered on 03/17/25at 09:30; Start 03/02/25 at 09:00; Stop 04/01/25 at 08:59 Dextrose 50 ml AD PRN IV; Start 03/01/25 at 12:30; Stop 03/09/25 at 15:51; Status DC Glucagon 1 mg AD PRN IM; Start 03/01/25 at 12:30; Stop 03/09/25 at 15:51; Status DC Acetaminophen 650 mg Q4H PRN PO Last administered on 03/04/25at 10:39; Start 03/02/25 at 02:30; Stop 04/01/25 at 02:29 Potassium Chloride 40 meq ONCE ONCE PO Last administered on 03/02/25at 19:47; Start 03/02/25 at 15:00; Stop 03/02/25 at 15:01; Status DC Midodrine 5 mg ONCE ONCE PO; Start 03/03/25 at 21:00; Stop 03/03/25 at 13:17; Status DC Midodrine 10 mg TID PO Last administered on 03/07/25at 14:38; Start 03/03/25 at 14:00; Stop 03/08/25 at 09:15; Status DC Docusate Sodium 100 mg BID PO; Start 03/03/25 at 21:00; Stop 03/03/25 at 16:22; Status DC Ketorolac Tromethamine 15 mg Q6H PRN PO; Start 03/03/25 at 18:00; Stop 03/03/25 at 16:22; Status DC Potassium Chloride 40 meq ONCE ONCE PO Last administered on 03/05/25at 11:35; Start 03/05/25 at 08:30; Stop 03/05/25 at 08:31; Status DC Isosorbide Mononitrate 60 mg DAILY PO Last administered on 03/07/25at 08:47; Start 03/07/25 at 09:00; Stop 03/08/25 at 09:15; Status DC Potassium Chloride 40 meq ONCE ONCE PO Last administered on 03/07/25at 11:58; Start 03/07/25 at 12:00; Stop 03/07/25 at 12:01; Status DC Cefazolin Sodium 2 gm ONCALL IVP; Start 03/07/25 at 22:00; Stop 03/09/25 at 21:59; Status DC Epinephrine HCl 10 mg/Sodium Chloride 250 ml @ 0 mls/hr AD PRN IV Last administered on 03/16/25at 19:21; Start 03/08/25 at 07:00; Stop 04/07/25 at 06:59 Norepinephrine Bitartrate 250 ml @ 0 mls/hr AD PRN IV; Start 03/08/25 at 07:00; Stop 03/08/25 at 23:13; Status DC Aminocaproic Acid 39750 mg/Sodium Chloride 480 ml @ 0 mls/hr AD PRN IV; Start 03/08/25 at 07:00; Stop 04/07/25 at 06:59 Cefazolin Sodium 2 gm STK-MED ONCE .ROUTE; Start 03/08/25 at 07:21; Stop 03/08/25 at 07:22; Status DC Sodium Chloride 1,000 ml @ As Directed STK-MED ONCE IV Last administered on 03/08/25at 07:24; Start 03/08/25 at 07:22; Stop 03/08/25 at 07:22; Status DC Heparin Sodium (Porcine) 10,000 unit STK-MED ONCE .ROUTE; Start 03/08/25 at 07:25; Stop 03/08/25 at 07:25; Status DC Heparin Sodium (Porcine) 10,000 unit STK-MED ONCE .ROUTE; Start 03/08/25 at 07:27; Stop 03/08/25 at 07:27; Status DC Potassium Chloride 200 ml @ As Directed STK-MED ONCE IV; Start 03/08/25 at 07:27; Stop 03/08/25 at 07:27; Status DC Lidocaine HCl/ Dextrose 250 ml @ As Directed STK-MED ONCE IV; Start 03/08/25 at 07:30; Stop 03/08/25 at 07:30; Status DC Nitroglycerin/ Dextrose 1 ml @ As Directed STK-MED ONCE .ROUTE; Start 03/08/25 at 07:34; Stop 03/08/25 at 07:35; Status DC Cefazolin Sodium 1 gm STK-MED ONCE .ROUTE; Start 03/08/25 at 07:36; Stop 03/08/25 at 07:36; Status DC Gentamicin Sulfate 80 mg STK-MED ONCE .ROUTE; Start 03/08/25 at 07:36; Stop 03/08/25 at 07:36; Status DC Heparin Sodium/ Sodium Chloride 500 ml @ As Directed STK-MED ONCE IV; Start 03/08/25 at 07:36; Stop 03/08/25 at 07:36; Status DC Papaverine HCl 60 mg STK-MED ONCE .ROUTE; Start 03/08/25 at 07:38; Stop 03/08/25 at 07:39; Status DC Protamine Sulfate 250 mg STK-MED ONCE IV; Start 03/08/25 at 08:28; Stop 03/08/25 at 08:28; Status DC Lidocaine HCl 100 mg STK-MED ONCE .ROUTE; Start 03/08/25 at 08:28; Stop 03/08/25 at 08:28; Status DC Epinephrine HCl 1 mg STK-MED ONCE .ROUTE; Start 03/08/25 at 08:28; Stop 03/08/25 at 08:28; Status DC Sodium Bicarbonate 150 ml @ As Directed STK-MED ONCE .ROUTE; Start 03/08/25 at 08:28; Stop 03/08/25 at 08:28; Status DC Norepinephrine Bitartrate 4 mg STK-MED ONCE IV; Start 03/08/25 at 08:28; Stop 03/08/25 at 08:28; Status DC Propofol 200 mg STK-MED ONCE IV; Start 03/08/25 at 08:28; Stop 03/08/25 at 08:29; Status DC Fentanyl Citrate 1,000 mcg STK-MED ONCE IJ; Start 03/08/25 at 08:28; Stop 03/08/25 at 08:29; Status DC Midazolam HCl 2 mg STK-MED ONCE .ROUTE; Start 03/08/25 at 08:29; Stop 03/08/25 at 08:29; Status DC Rocuronium [place] 50 mg STK-MED ONCE .ROUTE; Start 03/08/25 at 08:29; Stop 03/08/25 at 08:29; Status DC Etomidate 20 mg STK-MED ONCE .ROUTE; Start 03/08/25 at 08:29; Stop 03/08/25 at 08:29; Status DC Amiodarone HCL/ Dextrose 100 ml @ As Directed STK-MED ONCE .ROUTE; Start 03/08/25 at 09:08; Stop 03/08/25 at 09:09; Status DC Acetaminophen 1,000 mg Q6H6 IV Last administered on 03/09/25at 12:00; Start 03/08/25 at 13:00; Stop 03/09/25 at 12:59; Status DC Aspirin 81 mg ONCE ONCE NG; Start 03/08/25 at 13:00; Stop 03/08/25 at 13:01; Status DC Docusate Sodium 100 mg BID PO Last administered on 03/15/25at 20:24; Start 03/08/25 at 21:00; Stop 04/07/25 at 20:59 Lactulose 20 gm BID PRN PO Last administered on 03/12/25at 16:26; Start 03/08/25 at 09:30; Stop 04/07/25 at 09:29 Furosemide 20 mg Q12H PO; Start 03/10/25 at 09:00; Stop 03/10/25 at 16:28; Status DC Furosemide 20 mg Q12H IV Last administered on 03/10/25at 01:15; Start 03/09/25 at 09:00; Stop 03/10/25 at 08:59; Status DC Magnesium Hydroxide 30 ml DAILY PRN PO; Start 03/08/25 at 09:30; Stop 04/07/25 at 09:29 Dexmedetomidine/ Sodium Chloride 400 mcg PROTOCOL IV; Start 03/08/25 at 09:30; Stop 03/09/25 at 09:29; Status DC Acetaminophen 650 mg Q6H PRN PO; Start 03/08/25 at 09:30; Stop 03/08/25 at 09:36; Status DC Sodium Chloride 1,000 ml @ 10 mls/hr ONCE IV; Start 03/08/25 at 09:30; Stop 03/09/25 at 09:29; Status DC Sodium Chloride 10 ml Q8H PRN IVP; Start 03/08/25 at 09:30; Stop 04/07/25 at 09:29 Morphine Sulfate 0.5 mg Q2H PRN IV; Start 03/08/25 at 09:30; Stop 03/09/25 at 09:29; Status DC Morphine Sulfate 1 mg Q2H PRN IV; Start 03/08/25 at 09:30; Stop 03/09/25 at 09:29; Status DC Acetaminophen 650 mg Q4H PRN RC; Start 03/08/25 at 09:30; Stop 04/07/25 at 09:29 Ondansetron HCl 4 mg Q6H PRN IV; Start 03/08/25 at 09:30; Stop 04/07/25 at 09:29 Sodium Chloride 500 ml @ 0 mls/hr AD IV Last administered on 03/16/25at 19:18; Start 03/08/25 at 09:30; Stop 04/07/25 at 09:29 Nitroglycerin/ Dextrose 0 ml @ 0 mls/hr AD IV; Start 03/08/25 at 09:30; Stop 03/11/25 at 09:29; Status DC Propofol 100 ml @ 0 mls/hr AD PRN IV; Start 03/08/25 at 09:30; Stop 03/12/25 at 09:29; Status DC Norepinephrine Bitartrate 8 mg/ Dextrose 250 ml @ 0 mls/hr AD PRN IV; Start 03/08/25 at 09:30; Stop 03/08/25 at 09:30; Status DC Epinephrine HCl 10 mg/Sodium Chloride 250 ml @ 0 mls/hr AD PRN IV; Start 03/08/25 at 09:30; Stop 03/08/25 at 09:30; Status DC Aminocaproic Acid 62697 mg/Sodium Chloride 310 ml @ 25 mls/hr AD IV; Start 03/08/25 at 09:30; Stop 03/08/25 at 09:31; Status DC Calcium Gluconate 1 gm/Sodium Chloride 60 ml @ 200 mls/hr AD PRN IV Last administered on 03/17/25at 06:12; Start 03/08/25 at 09:30; Stop 04/07/25 at 09:29 Magnesium Sulfate 50 ml @ 12.5 mls/hr AD PRN IV Last administered on 03/12/25at 22:19; Start 03/08/25 at 09:30; Stop 04/07/25 at 09:29 Potassium Chloride 100 ml @ 100 mls/hr AD PRN IV Last administered on 03/09/25at 05:37; Start 03/08/25 at 09:30; Stop 04/07/25 at 09:29 Potassium Phosphate 250 ml @ 42 mls/hr AD PRN IV Last administered on 03/09/25at 08:23; Start 03/08/25 at 09:30; Stop 04/07/25 at 09:29 Albumin Human 250 ml @ 0 mls/hr AD PRN IV Last administered on 03/08/25at 18:48; Start 03/08/25 at 09:30; Stop 03/08/25 at 18:48; Status DC Acetaminophen 650 mg Q4H PRN PO; Start 03/08/25 at 09:30; Stop 03/08/25 at 09:29; Status DC Insulin Human Regular 100 unit/ Sodium Chloride 100 ml @ 0 mls/hr AD IV Last administered on 03/09/25at 16:20; Start 03/08/25 at 09:30; Stop 03/10/25 at 09:29; Status DC Cefazolin Sodium 2 gm Q8H IVPB Last administered on 03/09/25at 06:06; Start 03/08/25 at 14:30; Stop 03/09/25 at 06:31; Status DC Tramadol HCl 50 mg Q6H PRN PO; Start 03/08/25 at 09:30; Stop 03/13/25 at 09:29; Status DC Tramadol HCl 100 mg Q6H PRN PO; Start 03/08/25 at 09:30; Stop 03/13/25 at 09:29; Status DC Famotidine 20 mg BID IV Last administered on 03/10/25at 08:16; Start 03/08/25 at 21:00; Stop 03/10/25 at 20:59; Status DC Sodium Bicarbonate 50 meq AD PRN IV Last administered on 03/10/25at 04:56; Start 03/08/25 at 09:30; Stop 03/11/25 at 09:29; Status DC Dextrose 50 ml AD PRN IV Last administered on 03/10/25at 00:44; Start 03/08/25 at 09:30; Stop 04/07/25 at 09:29 Glucagon 1 mg AD PRN IM; Start 03/08/25 at 09:30; Stop 04/07/25 at 09:29 Lidocaine HCl 100 mg STK-MED ONCE .ROUTE; Start 03/08/25 at 10:18; Stop 03/08/25 at 10:18; Status DC Cefazolin Sodium 2 gm STK-MED ONCE IVPB Last administered on 03/08/25at 08:40; Start 03/08/25 at 08:40; Stop 03/08/25 at 11:34; Status DC Cefazolin Sodium 1 gm STK-MED ONCE IRRIG Last administered on 03/08/25at 09:22; Start 03/08/25 at 09:22; Stop 03/08/25 at 11:34; Status DC Heparin Sodium (Porcine) 5,000 unit STK-MED ONCE IRRIG Last administered on 03/08/25at 09:22; Start 03/08/25 at 09:22; Stop 03/08/25 at 11:34; Status DC Papaverine HCl 60 mg STK-MED ONCE IRRIG Last administered on 03/08/25at 09:53; Start 03/08/25 at 09:53; Stop 03/08/25 at 11:34; Status DC Heparin Sodium (Porcine) 10,000 unit STK-MED ONCE .ROUTE; Start 03/08/25 at 12:20; Stop 03/08/25 at 12:21; Status DC Epinephrine HCl 1 mg STK-MED ONCE .ROUTE; Start 03/08/25 at 12:30; Stop 03/08/25 at 12:30; Status DC Lidocaine HCl 100 mg STK-MED ONCE .ROUTE; Start 03/08/25 at 12:42; Stop 03/08/25 at 12:42; Status DC Sodium Bicarbonate 100 ml @ As Directed STK-MED ONCE .ROUTE; Start 03/08/25 at 12:45; Stop 03/08/25 at 12:45; Status DC Amiodarone HCl 360 mg/Dextrose 207.2 ml @ 33.3 mls/hr AD IV; Start 03/08/25 at 13:00; Stop 03/08/25 at 12:52; Status DC Amiodarone HCl 360 mg/Dextrose 207.2 ml @ 33.3 mls/hr AD IV; Start 03/08/25 at 13:00; Stop 03/08/25 at 12:52; Status DC Amiodarone HCl 540 mg/Dextrose 310.8 ml @ 16.7 mls/hr [id number] STAT IV Last administered on 03/08/25at 16:44; Start 03/08/25 at 12:45; Stop 03/08/25 at 20:15; Status DC Cardioplegic Solution 0 ml @ As Directed STK-MED ONCE IV; Start 03/08/25 at 12:48; Stop 03/08/25 at 12:49; Status DC Amiodarone HCL/ Dextrose 200 ml @ 0 mls/hr ONCE ONCE IV; Start 03/08/25 at 13:00; Stop 03/08/25 at 13:01; Status DC Sodium Bicarbonate 100 ml @ As Directed STK-MED ONCE .ROUTE; Start 03/08/25 at 12:50; Stop 03/08/25 at 12:51; Status DC Heparin Sodium (Porcine) 10,000 unit STK-MED ONCE .ROUTE; Start 03/08/25 at 13:03; Stop 03/08/25 at 13:03; Status DC Potassium Chloride 300 ml @ As Directed STK-MED ONCE IV; Start 03/08/25 at 13:07; Stop 03/08/25 at 13:07; Status DC Sodium Bicarbonate 50 ml @ As Directed STK-MED ONCE .ROUTE; Start 03/08/25 at 13:33; Stop 03/08/25 at 13:33; Status DC Cefazolin Sodium 1 gm STK-MED ONCE .ROUTE; Start 03/08/25 at 14:38; Stop 03/08/25 at 14:39; Status DC Albumin Human 500 ml @ As Directed STK-MED ONCE IV; Start 03/08/25 at 14:43; Stop 03/08/25 at 14:43; Status DC Ipratropium [place] 0.5 mg STK-MED ONCE IH Last administered on 03/08/25at 15:50; Start 03/08/25 at 15:24; Stop 03/08/25 at 15:24; Status DC Ipratropium [place] 0.5 MG ONCE ONCE IH; Start 03/08/25 at 15:15; Stop 03/08/25 at 15:51; Status DC Albumin Human 50 ml @ 999 mls/hr Q6H IV Last administered on 03/09/25at 10:10; Start 03/08/25 at 17:00; Stop 03/09/25 at 11:02; Status DC Vasopressin 40 units/Sodium Chloride 40 ml @ 0 mls/hr PROTOCOL IV Last administered on 03/17/25at 10:07; Start 03/08/25 at 17:00; Stop 04/07/25 at 16:59 Albumin Human 250 ml @ 0 mls/hr AD IV Last administered on 03/09/25at 08:36; Start 03/08/25 at 19:00; Stop 03/10/25 at 06:44; Status DC Atropine Sulfate 1 mg STK-MED ONCE IVP Last administered on 03/08/25at 19:47; Start 03/08/25 at 19:22; Stop 03/08/25 at 19:22; Status DC Albumin Human 500 ml @ 0 mls/hr AD IV Last administered on 03/09/25at 11:35; Start 03/08/25 at 20:00; Stop 03/09/25 at 15:49; Status DC Norepinephrine Bitartrate 250 ml @ As Directed STK-MED ONCE IV; Start 03/08/25 at 22:56; Stop 03/08/25 at 22:56; Status DC Norepinephrine Bitartrate PER PROTOCOL PROTOCOL IV Last administered on 03/16/25at 19:21; Start 03/08/25 at 23:30; Stop 04/07/25 at 23:29 Albumin Human 500 ml @ 0 mls/hr AD IV Last administered on 03/10/25at 18:06; Start 03/09/25 at 22:00; Stop 03/14/25 at 21:59; Status DC Phytonadione 10 mg/Sodium Chloride 51 ml @ 100 mls/hr Q24H IVPB Last administered on 03/12/25at 00:27; Start 03/10/25 at 01:00; Stop 03/12/25 at 01:31; Status DC Furosemide 100 mg/ Sodium Chloride 100 ml @ 0 mls/hr PROTOCOL IV Last administered on 03/12/25at 05:11; Start 03/10/25 at 08:00; Stop 03/12/25 at 16:41; Status DC Sodium Zirconium Cyclosilicate 10 gm ONCE ONCE PO Last administered on 03/10/25at 08:15; Start 03/10/25 at 08:00; Stop 03/10/25 at 08:01; Status DC Piperacillin Sod/ Tazobactam Sod 3.375 gm Q8H IVPB Last administered on 03/17/25at 10:13; Start 03/10/25 at 10:30; Stop 03/20/25 at 10:29 Sodium Chloride 50 ml AD IV; Start 03/10/25 at 10:30; Stop 03/10/25 at 16:27; Status DC Prothrombin Complex Concent (Human) 500 unit ONCE IV; Start 03/10/25 at 12:00; Stop 03/10/25 at 12:24; Status DC Sodium Zirconium Cyclosilicate 10 gm ONCE ONCE PO Last administered on 03/10/25at 12:53; Start 03/10/25 at 13:00; Stop 03/10/25 at 13:01; Status DC Fentanyl Citrate 50 mcg ONCE ONCE IVP Last administered on 03/10/25at 16:51; Start 03/10/25 at 16:30; Stop 03/10/25 at 16:31; Status DC Lidocaine HCl 20 ml STK-MED ONCE .ROUTE Last administered on 03/10/25at 18:03; Start 03/10/25 at 16:38; Stop 03/10/25 at 16:38; Status DC Sodium Bicarbonate 25 meq/Dextrose 1,000 ml @ 0 mls/hr Q0M PRN IVP Last administered on 03/15/25at 05:29; Start 03/10/25 at 22:30; Stop 04/09/25 at 22:29 Dextrose 1,000 ml @ 50 mls/hr Q20H IV Last administered on 03/11/25at 19:15; Start 03/10/25 at 23:30; Stop 03/12/25 at 05:51; Status DC Sodium Zirconium Cyclosilicate 10 gm ONCE ONCE PO Last administered on 03/11/25at 07:10; Start 03/11/25 at 07:00; Stop 03/11/25 at 07:03; Status DC Sodium Zirconium Cyclosilicate 10 gm ONCE ONCE PO Last administered on 03/11/25at 11:53; Start 03/11/25 at 12:00; Stop 03/11/25 at 12:01; Status DC Metolazone 2.5 mg ONCE ONCE PO Last administered on 03/11/25at 13:01; Start 03/11/25 at 13:00; Stop 03/11/25 at 13:01; Status DC Sodium Zirconium Cyclosilicate 10 gm ONCE ONCE PO Last administered on 03/11/25at 16:27; Start 03/11/25 at 16:00; Stop 03/11/25 at 16:01; Status DC Dextrose 1,000 ml @ 0 mls/hr Q0M PRN IV; Start 03/12/25 at 06:00; Stop 04/09/25 at 23:29 Sodium Zirconium Cyclosilicate 10 gm ONCE ONCE PO Last administered on 03/12/25at 09:08; Start 03/12/25 at 09:00; Stop 03/12/25 at 09:04; Status DC Vitamin B Complex 1,000 mcg DAILY PO Last administered on 03/17/25at 09:29; Start 03/12/25 at 15:30; Stop 04/11/25 at 15:29 Folic Acid 1 mg DAILY PO Last administered on 03/17/25at 09:29; Start 03/12/25 at 15:30; Stop 04/11/25 at 15:29 Dexamethasone Sodium Phosphate 20 mg Q24H IV; Start 03/12/25 at 15:30; Stop 03/12/25 at 15:18; Status DC Iron Sucrose 300 mg/Sodium Chloride 250 ml @ 83 mls/hr Q24H IV; Start 03/12/25 at 15:30; Stop 03/14/25 at 18:31; Status Cancel Dexamethasone Sodium Phosphate 20 mg/Sodium Chloride 50 ml @ 100 mls/hr Q24H IV Last administered on 03/16/25at 15:03; Start 03/12/25 at 15:30; Stop 04/11/25 at 15:29 Lactulose 20 gm BID PRN PO; Start 03/12/25 at 16:30; Stop 03/12/25 at 16:20; Status DC Iron Sucrose 300 mg/Sodium Chloride 250 ml @ 83 mls/hr HS IV Last administered on 03/14/25at 19:55; Start 03/12/25 at 21:00; Stop 03/15/25 at 00:01; Status DC Polyethylene Glycol 17 gm DAILY PO Last administered on 03/14/25at 09:26; Start 03/13/25 at 09:00; Stop 04/12/25 at 08:59 Lactulose 20 gm BID PO Last administered on 03/15/25at 20:24; Start 03/12/25 at 21:00; Stop 04/11/25 at 20:59 Sodium Chloride 1,000 ml @ 0 mls/hr ONCE IV; Start 03/12/25 at 18:00; Stop 03/13/25 at 13:09; Status DC Fentanyl Citrate 1000 mcg/Sodium Chloride 120 ml @ 0 mls/hr AD PRN IV; Start 03/13/25 at 02:30; Stop 03/13/25 at 02:16; Status DC Fentanyl Citrate 100 ml @ 0 mls/hr PROTOCOL IV Last administered on 03/13/25at 02:29; Start 03/13/25 at 02:30; Stop 03/20/25 at 02:29 Dexmedetomidine HCl 400 mcg/ Sodium Chloride 100 ml @ 0 mls/hr AD PRN IV; Start 03/13/25 at 08:00; Stop 03/13/25 at 07:42; Status DC Dexmedetomidine/ Sodium Chloride 400 mcg PROTOCOL IV Last administered on 03/15/25at 09:49; Start 03/13/25 at 08:00; Stop 04/12/25 at 07:59 Heparin Sodium/ Dextrose 250 ml @ 0 mls/hr Q6H IV Last administered on 03/13/25at 10:42; Start 03/13/25 at 10:30; Stop 03/14/25 at 08:09; Status DC Sodium Chloride 1,000 ml @ 0 mls/hr ONCE IV Last administered on 03/15/25at 10:20; Start 03/13/25 at 13:30; Stop 04/12/25 at 13:29 Albumin Human 100 ml NOW IV; Start 03/13/25 at 13:30; Stop 03/14/25 at 13:29; Status DC Albumin Human 100 ml @ As Directed STK-MED ONCE IV Last administered on 03/13/25at 13:41; Start 03/13/25 at 13:25; Stop 03/13/25 at 13:25; Status DC Epoetin Nelson-epbx 10,000 unit ONCE ONCE SQ Last administered on 03/13/25at 14:41; Start 03/13/25 at 14:00; Stop 03/13/25 at 14:01; Status DC Pharmacy Profile Note 1 each ONCE MISC; Start 03/14/25 at 08:00; Stop 03/14/25 at 12:36; Status DC Sodium Bicarbonate 100 meq ONCE ONCE IV Last administered on 03/14/25at 12:03; Start 03/14/25 at 12:00; Stop 03/14/25 at 12:02; Status DC Argatroban 250 mg/ Sodium Chloride 250 ml @ 0 mls/hr PROTOCOL IV Last administered on 03/14/25at 17:33; Start 03/14/25 at 13:00; Stop 04/13/25 at 12:59 Multi-Ingred Cream/Lotion/Oil/ Oint 1 APPL HS OU Last administered on 03/16/25at 20:33; Start 03/14/25 at 21:00; Stop 04/13/25 at 20:59 Sodium Bicarbonate 100 meq ONCE ONCE IV Last administered on 03/15/25at 00:24; Start 03/15/25 at 00:30; Stop 03/15/25 at 00:31; Status DC Albumin Human 100 ml ONCE IV Last administered on 03/15/25at 10:16; Start 03/15/25 at 10:00; Stop 03/16/25 at 09:59; Status DC Sodium Zirconium Cyclosilicate 10 gm ONCE ONCE PO Last administered on 03/15/25at 11:03; Start 03/15/25 at 11:30; Stop 03/15/25 at 11:31; Status DC Insulin Glargine 10 units BID@0730,2100 SQ Last administered on 03/17/25at 06:14; Start 03/15/25 at 21:00; Stop 04/14/25 at 20:59 Insulin Human Regular INSULIN SLIDING SCAL... Q6H6 SQ Last administered on 03/15/25at 11:05; Start 03/15/25 at 12:00; Stop 04/14/25 at 11:59 Calcium Gluconate 1 gm/Sodium Chloride 110 ml @ 110 mls/hr ONCE ONCE IV Last administered on 03/15/25at 13:10; Start 03/15/25 at 12:00; Stop 03/15/25 at 12:59; Status DC Dextrose 25 ml ONCE ONCE IV Last administered on 03/15/25at 13:29; Start 03/15/25 at 12:00; Stop 03/15/25 at 12:02; Status DC Bumetanide 2 mg ONCE ONCE IM; Start 03/15/25 at 12:30; Stop 03/15/25 at 12:31; Status DC Insulin Human Lispro 10 unit ONCE ONCE SQ; Start 03/15/25 at 13:00; Stop 03/15/25 at 13:01; Status DC Bumetanide 2 mg ONCE ONCE IVP Last administered on 03/15/25at 13:34; Start 03/15/25 at 13:30; Stop 03/15/25 at 13:33; Status DC Insulin Human Regular 10 unit TIDAC IV Last administered on 03/15/25at 13:36; Start 03/15/25 at 17:00; Stop 03/15/25 at 14:18; Status DC Insulin Human Regular 100 unit/ Sodium Chloride 100 ml @ 0 mls/hr PROTOCOL PRN IV Last administered on 03/17/25at 06:15; Start 03/15/25 at 15:00; Stop 04/14/25 at 14:59 Vasopressin 40 units/Sodium Chloride 40 ml @ 0 mls/hr PROTOCOL STAT IV; Start 03/17/25 at 09:16; Stop 03/17/25 at 09:25; Status DC Albumin Human 100 ml ONCE ONCE IV Last administered on 03/17/25at 10:08; Start 03/17/25 at 10:00; Stop 03/17/25 at 10:01; Status DC Pantoprazole Sodium 40 mg BID IVP Last administered on 03/17/25at 11:38; Start 03/17/25 at 11:30; Stop 04/16/25 at 11:29 WILIAM ANDREW MD Mar 17, 2025 14:31
[2025-03-17 15:23] LABS: ABG BASE EXCESS 3.5 mmol/L (-2.0-3.0); ABG HCO3 26.2 mmol/L (21.0-28.0); ABG OXYGEN SATURATION 98.5 % (94.0-98.0); ABG PCO2 33 mmHg (32-45); ABG PH 7.522 (7.350-7.450); CARBON MONOXIDE 1.9 % (0.5-1.5); DEVICE COMMENT ALINE; PO2, ARTERIAL BG 111.2 mmHg (83.0-108.0); TEMPERATURE, CELSIUS BG 37.0 CELSIUS (35.5-37.0); VENT MODE, BG AC (ROOM AIR)
[2025-03-17 16:37] LABS: ABG BASE EXCESS 1.3 mmol/L (-2.0-3.0); ABG HCO3 25.4 mmol/L (21.0-28.0); ABG OXYGEN SATURATION 95.8 % (94.0-98.0); ABG PCO2 39 mmHg (32-45); ABG PH 7.438 (7.350-7.450); CARBON MONOXIDE 2.0 % (0.5-1.5); DEVICE COMMENT ALINE; PO2, ARTERIAL BG 82.8 mmHg (83.0-108.0); TEMPERATURE, CELSIUS BG 37.0 CELSIUS (35.5-37.0); VENT MODE, BG AC (ROOM AIR)
[2025-03-17 21:02] LABS: ABG BASE EXCESS 2.1 mmol/L (-2.0-3.0); ABG HCO3 26.5 mmol/L (21.0-28.0); ABG OXYGEN SATURATION 96.7 % (94.0-98.0); ABG PCO2 41 mmHg (32-45); ABG PH 7.430 (7.350-7.450); CARBON MONOXIDE 2.1 % (0.5-1.5); PO2, ARTERIAL BG 92.3 mmHg (83.0-108.0); TEMPERATURE, CELSIUS BG 37.0 CELSIUS (35.5-37.0); VENT MODE, BG AC (ROOM AIR)
--- NOTE | 2025-03-17 21:17 | NUR ---
Dr. Michelle Martinez made aware pt on impella and argatroban with plt count 39. orders received see EMR. tray line supervisor called and procedure is already scheduled.
[2025-03-18] VITALS (80 sets, daily range): BP systolic 47–175; BP diastolic 19–173; PULSE 61–106; RESP 10–12; TEMP 98.2–98.9; O2SAT 59–98
--- NOTE | 2025-03-18 | NUR ---
NPO TUBE FEEDING HELD AT THIS TIME FOR ANTICIPATED TRACH 300ML OF BROWNISH COLOR WITH PARTIAL DIGESTED FEEDING NOTED.
[2025-03-18 03:47] LABS: ABG BASE EXCESS 2.6 mmol/L (-2.0-3.0); ABG HCO3 27.0 mmol/L (21.0-28.0); ABG OXYGEN SATURATION 98.3 % (94.0-98.0); ABG PCO2 41 mmHg (32-45); ABG PH 7.440 (7.350-7.450); CARBON MONOXIDE 1.9 % (0.5-1.5); PO2, ARTERIAL BG 113.7 mmHg (83.0-108.0); TEMPERATURE, CELSIUS BG 37.0 CELSIUS (35.5-37.0); VENT MODE, BG AC (ROOM AIR)
[2025-03-18 05:08] LABS: NUCLEATED RED BLOOD CELLS 10.6 % (0.0-0.19); PLATELET COUNT (AUTO) 43 K/uL (130-400); RED BLOOD CELL COUNT(AUTO) 2.83 MIL/uL (4.00-5.50); RED CELL DISTRIBUTION WIDTH 16.7 % (11.0-15.5)
[2025-03-18 05:22] LABS: WHITE BLOOD COUNT (AUTO) 36.1 K/uL (4.8-10.8)
[2025-03-18 05:34] LABS: CREATININE 3.1 mg/dL (0.5-1.0); GLOMERULAR FILTR. RATE CALC 16.0 mL/min (>90); GLUCOSE,RANDOM 133.0 mg/dL (70-105); SODIUM SERUM 139.0 mmol/L (136-145); TOTAL PROTEIN, SERUM 5.4 g/dL (6.0-8.3); UREA NITROGEN, BLOOD 73.0 mg/dL (7-18)
[2025-03-18 05:55] LABS: ASPARTATE AMINOTRANSFERASE 1082.0 U/L (10-37)
[2025-03-18] MEDS: ZOSYN 3.375GM +NS 50ML IVPB SCH (06:32)
--- NOTE | 2025-03-18 07:00 | NUR ---
ARGATROBAN ARGATROBAN HELD AT THIS TIME PER MD ORDER
--- NOTE | 2025-03-18 09:25 | PN ---
FOLLOWUP PROGRESS NOTE SUBJECTIVE: A 59-year-old female with a history of known vascular disease. The patient with a history of coronary artery disease, status post CABG. She has had acute renal failure postoperatively. The patient continues with dialysis. The patient did receive dialysis yesterday with 2.4 L of ultrafiltration. The patient remains intubated in the ICU. She is scheduled for possible tracheostomy and the patient is being seen as a followup visit for all of the above. REVIEW OF SYSTEMS: She is intubated in the ICU. OBJECTIVE: VITAL SIGNS: Blood pressure 127/91, pulse in the 90s, afebrile. GENERAL: Chronically ill female, lying in bed on the medical floor. HEENT: Head is atraumatic. Pupils are equal, roving to light. Oropharynx is without exudate. Nares are clear. NECK: There is no JVP. There is no thyromegaly, no mass. CARDIOVASCULAR: Regular. There is no S3, S4 gallop. LUNGS: Coarse with equal thoracic movement. ABDOMEN: Soft, nondistended, and nontender. EXTREMITIES: There is no clubbing, no cyanosis. NEUROLOGICAL: She is sedated on the vent. LABORATORY DATA: Hemoglobin 9, hematocrit 26, white cell count 36,000. BUN 73, creatinine is 3. IMPRESSION: * Acute renal failure. * Coronary artery disease, status post CABG. * Respiratory failure, on the vent. * Leukocytosis. PLAN: The patient continues dialysis while in the hospital. The patient continues to be weaned from the ventilator. She remains on Epogen for her anemia. The patient is tentatively scheduled for tracheostomy. We will continue to follow the patient closely. I did discuss previously with the patient's family. TID: [id number] RECEIPT: [id number]
--- NOTE | 2025-03-18 09:28 | PN ---
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 Multiorgan dysfunction Acute liver failure Unstable Angina POA Remote anterior wall myocardial infarction July 2024 complicated by cardiogenic shock requiring Impella support for PCI with subsequent ischemic leg requiring [id number] amputation CAD status post stenting of the proximal LAD proximal circumflex and mid circumflex artery as above with documented progression of disease December 2024 managed medically because of concern the patient would not be compliant with dual antiplatelet therapy Diabetes mellitus type 2 Dyslipidemia Severe protein calorie malnutrition BMI 14.2 Hypercoagulable state on Prasugrel POA Functional decline: s/p Rt BKA POA comorbidities: HX of ACS-STEMI s/p PCI with VIANEY placement (BSS 3.0x20 mm) in the proximal LAD, VIANEY placement (BSS 3.5x16 mm) in the proximal LCx, VIANEY placement (BSS 3.0x12 mm) in the mid LCx, and VIANEY placement (BSS 2.75x24 mm) in the distal LCx done on 07/17/2024 Hx of Intraprocedural VT in July 2024 HX of cardiogenic shock requiring Impella placement in July 2024 HX of Right lower extremity ischemia secondary to Impella placement resulting in RLE limb ischemia s/p right BKA Hx of Ischemic cardiomyopathy Hx of Medication noncompliance Hx of Hypertension ] INTERVAL HISTORY: 03/18/25. Day 10. Post CABG. Fifteen continues intubated. No gag no cough no corneal reflexes. Does not breathing over the vent. Continues on Impella support of P 8. Continues on epinephrine drip at 0.02 mcg/kg per minute and insulin drip. Urine output is 0 mL. Hemodialysis 02.4 L. balance of-1.2 L. mediastinal chest tube drained 270 mL. On laboratory white count elevated 36.1 likely reactive from Decadron high-dose. H&H is 9.1/26 platelet count of 43 K. creatinine is 3.1 GFR of 16 consistent with ESRD on hemodialysis liver enzymes continue elevated. Necrosis to our four limbs distally. Chest x-ray for today shows multifactorial airspace disease, more pronounced in the left upper extremities. No bilateral pleural effusions. Mild central pulmonary vascular congestion. Support line clean tubes in satisfactory position. There was no family at the bedside at time of my visit recommendation to revisit goals of care conversation. Recommend Neurology consult. Follow CV surgery and Cardiology recommendations. REVIEW OF SYSTEMS: unable to perform Plan PHYSICAL EXAM: GENERAL: critically ill intubated HEENT: Sclera non icteric, moist mucosa NECK: Supple, no JVD, trachea midline , impella 5.5 LUNGS: diminished breath sounds bilaterally. No wheezes HEART: Regular rate and rhythm. Normal S1 and S2, without murmurs, chest tube in place ABD: Abdomen soft, nontender. Bowel sounds present EXT: No clubbing cyanosis or edema rt BKA, necrosis distally to all extremities. NEURO: No gag, cough, or corneal reflexes pupils are 5 mm fixed and dilated. Vital Signs (last 8hr) Date Time Temp Pulse Resp B/P (MAP) Pulse Ox O2 Delivery O2 Flow Rate FiO2 03/18/25 08:30 90 12 127/91 (103) 95 03/18/25 08:16 50 03/18/25 08:15 91 12 123/86 (98) 98 03/18/25 08:00 98.2 92 12 129/85 (100) 97 03/18/25 08:00 98.2 Ventilator 50 03/18/25 08:00 98 Ventilator+ 50 03/18/25 07:45 93 12 130/90 (103) 97 03/18/25 07:30 95 12 141/95 (110) 97 03/18/25 07:15 95 12 145/99 (114) 97 03/18/25 07:00 96 12 147/101 (116) 96 03/18/25 06:45 96 12 147/101 (116) 96 03/18/25 06:23 99 50 03/18/25 06:00 100 12 158/109 (125) 95 03/18/25 05:45 97 12 154/108 (123) 95 03/18/25 05:30 95 12 144/99 (114) 95 03/18/25 05:15 99 12 121/83 (96) 95 03/18/25 05:00 101 12 148/97 (114) 95 03/18/25 04:45 98 12 136/85 (102) 95 03/18/25 04:30 98 12 135/85 (102) 95 03/18/25 04:15 98 12 133/83 (100) 95 03/18/25 04:04 96 Ventilator+ 50 03/18/25 04:04 50 03/18/25 04:02 100 50 03/18/25 04:00 99 12 132/83 (99) 95 50 03/18/25 03:45 100 12 132/84 (100) 95 03/18/25 03:30 99.0 100 12 123/82 (96) 97 03/18/25 03:15 100 12 127/85 (99) 97 03/18/25 03:00 100 12 128/86 (100) 97 50 03/18/25 02:45 101 12 133/89 (104) 97 03/18/25 02:30 99 12 134/91 (105) 97 03/18/25 02:15 101 12 147/97 (114) 96 03/18/25 02:00 101 12 150/103 (119) 95 50 03/18/25 01:45 100 12 153/105 (121) 95 03/18/25 01:30 97 12 147/99 (115) 95 LABS: Hematology Labs: Test 03/18/25 04:55 03/17/25 05:10 Range/Units White Blood Count 36.1 *H 4.8-10.8 K/uL Red Blood Count 2.83 L 4.00-5.50 MIL/uL Hemoglobin 9.1 L 12.0-16.0 g/dL Hematocrit 26.0 L 36-48 % Mean Corpuscular Volume 91.9 79-99 fL Mean Corpuscular Hemoglobin 32.2 27.0-33.0 pg Mean Corpuscular Hemoglobin Concent 35.0 32.0-36.0 g/dL Red Cell Distribution Width 16.7 H 11.0-15.5 % Platelet Count 43 L 130-400 K/uL Mean Platelet Volume 7.5-10.5 fL Nucleated Red Blood Cells 10.6 H 0.0-0.19 % Segmented Neutrophils % 94 H 40-70 % Lymphocytes % (Manual) 2 L 22-44 % Monocytes % (Manual) 4 2-9 % Differential Comment MANUAL DIFFERENTIAL White Cell Morphology Comment See comments Platelet Morphology Comment MARKED DECREASE Red Blood Cell Morphology ANISO 1+ Chemistry Labs: Test 03/18/25 07:58 03/18/25 04:55 03/16/25 15:22 Range/Units Whole Blood Glucose 131 H 70-110 MG/DL Sodium Level 139 136-145 mmol/L Potassium Level 4.4 3.5-5.1 mmol/L Chloride Level 99 L 101-111 mmol/L Carbon Dioxide Level 26 21-32 mmol/L Blood Urea Nitrogen 73 H 7-18 mg/dL Creatinine 3.1 H 0.5-1.0 mg/dL Glomerular Filtration Rate Calc 16 >90 mL/min Random Glucose 133 H 70-105 mg/dL Total Calcium 8.7 8.5-10.1 mg/dL Total Bilirubin 7.8 H 0.2-1.0 mg/dL Aspartate Amino Transf (AST/SGOT) 1082 *H 10-37 U/L Alanine Aminotransferase (ALT/SGPT) 244 #H 12-78 U/L Alkaline Phosphatase 305 H 50-136 U/L Total Protein 5.4 L 6.0-8.3 g/dL Albumin 2.5 L 3.5-5.0 g/dL Ammonia 16 11-32 umol/L Coagulation Labs: Test 03/18/25 04:55 Range/Units Activated Partial Thromboplast Time 55.4 H 26.3-35.5 [facility] / RADIOLOGY RESULTS: [ [address] [address] [place] [address] IMAGING REPORT Signed PATIENT: SHAHZAD PAGE MR#: [id number] : 1965 SEX: F AGE: 59 LOCATION: 2CV ORDER 2300 STATUS: ADM IN REPORT#: [id number] SERVICE 0500 REASON: s/p cabg impella ORDERING PHYSICIAN: JAKE SMALLWOOD MD PROCEDURE: CXR1VW - CHEST 1VW EXAM: CR Chest, 2 View. CLINICAL HISTORY: s/p cabg impella Comparison: Radiograph dated March 17, 2025 Findings: AP view of the chest is submitted. Endotracheal tube, right IJ central venous catheter, enteric tube, and chest tubes appear in satisfactory positions. Relatively unchanged multifocal airspace disease bilaterally, more pronounced within the left lower lobe. Small bilateral effusions. No pneumothorax. Heart size is stable. Mild central pulmonary vascular congestion. IMPRESSION: 1. Multifocal airspace disease, more pronounced in left lower lobe, unchanged. Small bilateral pleural effusions. 2. Mild central pulmonary vascular congestion. 3. Support lines and tubes in satisfactory position. /Peck DICTATED BY: KAT LLOYD Jr., MD DATE: 03/18/251711 ELECTRONICALLY SIGNED BY: KAT LLOYD Jr., MD DATE: 03/18/251711 ] PLAN Continue current management for the patient. We will continue to adjust ventilator setting based on ABG Revisit goals of care with family. Recommend Neurology consult. Continue to monitor chest tube on Manjarrez catheter output. We will continue to monitor the lung field with serial chest x-rays. Continue the nutritional support via the OG with free water flushes and monitor for increased residuals. The patient will continue with renal replacement therapy. We will replete electrolytes as necessary. Follow CV and Cardiology recommendations NEURO: Minimize central acting medications as possible. Fall Precautions. Well lighted room through the day and minimize interruptions through the night to prevent acute delirium. PULMONARY: Supplemental 02 as needed Titrate Fio2 to keep Spo2 > or = 90% DuoNebs and CPT as needed IS hourly while awake for pulmonary hygiene Out of bed to chair as tolerated VAP Bundle Ventilator per CV protocol CARDIOVASCULAR: Follow hemodynamics. Titrate vasopressor to keep MAP >65 or systolic blood pressure >95mmHg DRIPS: epi argatroban insulin LINES: cvc impella chest tube et tube og tube A-line manjarrez GI & NUTRITION: Continue nutritional support Aspirations precautions Prokinetic agents and laxatives as needed KIDNEYS & ELECTROLYTES: Strict monitoring of intake and output Daily weights Avoid nephrotoxic agents Monitor electrolytes and replace as needed Goal urine output of 30mL/hr or 0.5mL/kg/hr Urine output: [ ] Fluid Balance: [ ] ENDOCRINE: Maintain blood glucose between 100-180 at all times. Insulin sliding scale for blood glucose management INFECTIOUS DISEASE: Trend temperature. Combs-culture if febrile. Micro: [ ] MRSA negative Antibiotics: Zosyn HEMATOLOGY & COAGULATION: Monitor H&H. Keep Hgb > 7 Transfuse 1 unit of PRBC for Hgb < 7 Transfuse 1 pack of platelets of platelets < 20, 000 Watch for any signs and symptoms of bleeding SKIN: Pressure ulcer prevention per facility protocol Rehab: PT/OT Prophylaxis: GI: Protonix DVT: [ tedhose ac per cv ] Code Status: Full Resuscitation Disposition: [ICU ] Other: I personally spent 40 minutes of critical care time in treatment of this patient. This includes patient management, time at bedside, time reviewing tests, labs, appropriate images and studies, documentation, and patient care coordination. This time excludes separately billable procedures. Patient was seen and case discussed with purnima POWERS. Plan of care was discussed and agreed upon. ATTESTATION BY PHYSICIAN I reviewed the documentation, medical decision making, and treatment plan as noted by the mid-level provider above. I agree with the findings and plan of care. Hemal Desir MD, [facility] Mar 18, 2025 09:28
[2025-03-18] MEDS ORDERED: VANCOMYCIN PROTOCOL PER PHARMACY IV SCH (09:30)
[2025-03-18 10:08] LABS: INR 2.67 (0.85-1.15)
--- NOTE | 2025-03-18 12:42 | PN ---
A 59-year-old female who has had a prolonged hospital course. She initially presented with chest pain. The patient eventually underwent coronary catheterization that revealed 3-vessel disease. The patient is status post CABG. The patient has developed acute renal failure postoperatively. The patient remains intubated in the ICU. The patient continues with the pressors. She was also noted to have hyperkalemia and was treated medically. Patient continues to be intubated. The patient was started on argatroban. Platelet count continued to be low. Patient with multiorgan failure. The patient continues to be bleeding from the tubes. There is plan for tracheostomy to be done on this patient later on PHYSICAL EXAMINATION: VITAL SIGNS: Blood pressure is 101/69, pulse in the 100s. She is afebrile. GENERAL: She is a chronically ill female, lying in bed in the medical floor. HEENT: Head is atraumatic. Pupils equal and reactive to light. Oropharynx, ET tubes in place. NECK: Supple. There is no JVP. CARDIOVASCULAR: Regular. There is no S3 or S4 gallop. LUNGS: Coarse with equal thoracic movement. ABDOMEN: Soft, nondistended, nontender. EXTREMITIES: There is no edema. NEUROLOGICAL: She is sedated with the vent. SKIN: No rashes or nodules. BACK: There is no CVA tenderness. No back deformities. IMPRESSION: 1. Leukocytosis 2. Anemia 3. Thrombocytopenia 4. Liver failure 5. Acute renal failure 6. Coronary artery disease status post CABG 7. Transfusion is a patient to have multiple blood product transfusion including 17 red cells, 9 platelet, 4 fresh frozen plasma and 1 whole blood. Plan 1. There is plan for tracheostomy to be done on this patient. We have to stop argatroban 2 hours before procedure 2. There was hypersegmented neutrophils. This patient to continue on folic acid 1 mg p.o. daily and vitamin B12 1000 mcg p.o. daily. 3. Peripheral smear actually showed nucleated blood cells very mature cell. The patient could have hemolysis or could have also myeloproliferative disorder to start with. So this patient may be will need bone marrow biopsy to be done later on. 4. Cardiothoracic wanted the patient to be on argatroban. We will continue the goal of PTT to be between 6070. The previous PTT is around 50. We will increase the dose of argatroban by 10% 5. This patient could benefit actually from dexamethasone 20 mg IV daily 6. Continue care as per disassembler There is no need for anticoagulation only as for prophylaxis. It seems the patient is on aspirin. 7. Continue IV iron. 8. This patient with multiorgan failure. Patient have very poor prognosis. Patient continued to be full code. I will sign off this case at this time Vitals/Labs Vital Signs Date Time Temp Pulse Resp B/P (MAP) Pulse Ox O2 Delivery O2 Flow Rate FiO2 03/18/25 12:00 98.4 Ventilator 50 03/18/25 11:55 94 03/18/25 09:15 12 128/90 (103) 93 Laboratory Tests 03/18/25 04:55 Medications Current Medications Nitroglycerin 0.4 mg Q5M PRN SL Last administered on 03/06/25at 08:50; Start 02/24/25 at 06:00; Stop 03/06/25 at 08:51; Status DC Heparin Sodium/ Dextrose 250 ml @ 0 mls/hr PROTOCOL PRN IV Last administered on 02/25/25at 01:09; Start 02/24/25 at 06:00; Stop 02/25/25 at 05:59; Status DC Morphine Sulfate 2 mg ONCE ONCE IVP Last administered on 02/24/25at 06:38; Start 02/24/25 at 06:00; Stop 02/24/25 at 06:01; Status DC Aspirin 325 mg ONCE ONCE PO; Start 02/24/25 at 06:00; Stop 02/24/25 at 06:01; Status DC Heparin Sodium (Porcine) 5,000 unit STK-MED ONCE .ROUTE; Start 02/24/25 at 06:17; Stop 02/24/25 at 06:17; Status DC Heparin Sodium (Porcine) 3,000 unit ONCE ONCE IV Last administered on 02/24/25at 06:38; Start 02/24/25 at 06:30; Stop 02/24/25 at 06:31; Status DC Acetaminophen 650 mg Q4H PRN PO Last administered on 03/01/25at 19:06; Start 02/24/25 at 07:00; Stop 03/26/25 at 06:59 Famotidine 20 mg BID PO Last administered on 03/07/25at 20:29; Start 02/24/25 at 09:00; Stop 03/09/25 at 10:34; Status DC Atorvastatin Calcium 20 mg HS PO; Start 02/24/25 at 21:00; Stop 02/24/25 at 08:52; Status DC Aspirin 81 mg DAILY PO; Start 02/24/25 at 09:00; Stop 02/24/25 at 08:52; Status DC Isosorbide Mononitrate 30 mg DAILY PO Last administered on 03/06/25at 08:13; Start 02/24/25 at 09:00; Stop 03/06/25 at 11:46; Status DC Atorvastatin Calcium 40 mg HS PO Last administered on 03/11/25at 20:11; Start 02/24/25 at 21:00; Stop 03/12/25 at 08:25; Status DC Metoprolol Succinate 12.5 mg DAILY PO Last administered on 03/03/25at 08:36; Start 02/24/25 at 09:00; Stop 03/06/25 at 18:49; Status DC Magnesium Sulfate 50 ml @ 0 mls/hr PROTOCOL PRN IV; Start 02/24/25 at 09:30; Stop 03/09/25 at 15:49; Status DC Potassium Chloride 100 ml @ 50 mls/hr AD PRN IV; Start 02/24/25 at 09:30; Stop 03/08/25 at 09:15; Status DC Insulin Human Regular INSULIN SLIDING SCAL... ACHS SQ Last administered on 03/06/25at 20:24; Start 02/24/25 at 11:30; Stop 03/08/25 at 09:15; Status DC Prasugrel 10 mg DAILY PO Last administered on 02/28/25at 09:18; Start 02/25/25 at 09:00; Stop 03/01/25 at 12:54; Status DC Citalopram Hydrobromide 10 mg DAILY PO Last administered on 03/10/25at 08:16; Start 02/25/25 at 09:00; Stop 03/27/25 at 08:59 Aspirin 81 mg ONCE ONCE PO Last administered on 02/24/25at 17:45; Start 02/24/25 at 17:00; Stop 02/24/25 at 17:01; Status DC Aspirin 81 mg DAILY PO Last administered on 02/28/25at 09:18; Start 02/25/25 at 09:00; Stop 03/01/25 at 12:33; Status DC Potassium Chloride 100 ml @ 100 mls/hr AD PRN IV; Start 02/26/25 at 11:30; Stop 02/27/25 at 09:49; Status DC Potassium Chloride 20 meq AD PRN PO; Start 02/26/25 at 11:30; Stop 03/08/25 at 09:15; Status DC Potassium Chloride 20 meq AD PRN PO Last administered on 03/07/25at 05:23; Start 02/26/25 at 11:30; Stop 03/08/25 at 09:15; Status DC Regadenoson 0.4 mg STK-MED ONCE IVP; Start 02/27/25 at 07:38; Stop 02/27/25 at 07:40; Status DC Lidocaine HCl 20 ml STK-MED ONCE .ROUTE; Start 03/01/25 at 11:08; Stop 03/01/25 at 11:08; Status DC Iohexol 35,000 mg STK-MED ONCE IV; Start 03/01/25 at 11:08; Stop 03/01/25 at 11:08; Status DC Heparin Sodium (Porcine) 10,000 unit STK-MED ONCE .ROUTE; Start 03/01/25 at 11:08; Stop 03/01/25 at 11:09; Status DC Heparin Sodium/ Sodium Chloride 1,000 ml @ As Directed STK-MED ONCE IV; Start 03/01/25 at 11:09; Stop 03/01/25 at 11:09; Status DC Nitroglycerin 50 mg STK-MED ONCE .ROUTE; Start 03/01/25 at 11:09; Stop 03/01/25 at 11:09; Status DC Verapamil HCl 5 mg STK-MED ONCE .ROUTE; Start 03/01/25 at 11:10; Stop 03/01/25 at 11:10; Status DC Atropine Sulfate 1 mg STK-MED ONCE IVP; Start 03/01/25 at 11:39; Stop 03/01/25 at 11:39; Status DC Fentanyl Citrate 100 mcg STK-MED ONCE .ROUTE; Start 03/01/25 at 11:39; Stop 03/01/25 at 11:40; Status DC Midazolam HCl 2 mg STK-MED ONCE .ROUTE; Start 03/01/25 at 11:39; Stop 03/01/25 at 11:40; Status DC Dopamine HCl/ Dextrose 0 ml @ As Directed STK-MED ONCE IV; Start 03/01/25 at 11:40; Stop 03/01/25 at 11:40; Status DC Prasugrel 10 mg STK-MED ONCE .ROUTE; Start 03/01/25 at 12:15; Stop 03/01/25 at 12:15; Status DC Aspirin 81 mg STK-MED ONCE .ROUTE; Start 03/01/25 at 12:15; Stop 03/01/25 at 12:15; Status DC Sodium Chloride 1,000 ml @ 150 mls/hr Q6H40M IV Last administered on 03/01/25at 19:04; Start 03/01/25 at 12:30; Stop 03/01/25 at 16:29; Status DC Aspirin 81 mg DAILY PO Last administered on 03/17/25at 09:30; Start 03/02/25 at 09:00; Stop 04/01/25 at 08:59 Dextrose 50 ml AD PRN IV; Start 03/01/25 at 12:30; Stop 03/09/25 at 15:51; Status DC Glucagon 1 mg AD PRN IM; Start 03/01/25 at 12:30; Stop 03/09/25 at 15:51; Status DC Acetaminophen 650 mg Q4H PRN PO Last administered on 03/04/25at 10:39; Start 03/02/25 at 02:30; Stop 04/01/25 at 02:29 Potassium Chloride 40 meq ONCE ONCE PO Last administered on 03/02/25at 19:47; Start 03/02/25 at 15:00; Stop 03/02/25 at 15:01; Status DC Midodrine 5 mg ONCE ONCE PO; Start 03/03/25 at 21:00; Stop 03/03/25 at 13:17; Status DC Midodrine 10 mg TID PO Last administered on 03/07/25at 14:38; Start 03/03/25 at 14:00; Stop 03/08/25 at 09:15; Status DC Docusate Sodium 100 mg BID PO; Start 03/03/25 at 21:00; Stop 03/03/25 at 16:22; Status DC Ketorolac Tromethamine 15 mg Q6H PRN PO; Start 03/03/25 at 18:00; Stop 03/03/25 at 16:22; Status DC Potassium Chloride 40 meq ONCE ONCE PO Last administered on 03/05/25at 11:35; Start 03/05/25 at 08:30; Stop 03/05/25 at 08:31; Status DC Isosorbide Mononitrate 60 mg DAILY PO Last administered on 03/07/25at 08:47; Start 03/07/25 at 09:00; Stop 03/08/25 at 09:15; Status DC Potassium Chloride 40 meq ONCE ONCE PO Last administered on 03/07/25at 11:58; Start 03/07/25 at 12:00; Stop 03/07/25 at 12:01; Status DC Cefazolin Sodium 2 gm ONCALL IVP; Start 03/07/25 at 22:00; Stop 03/09/25 at 21:59; Status DC Epinephrine HCl 10 mg/Sodium Chloride 250 ml @ 0 mls/hr AD PRN IV Last administered on 03/16/25at 19:21; Start 03/08/25 at 07:00; Stop 04/07/25 at 06:59 Norepinephrine Bitartrate 250 ml @ 0 mls/hr AD PRN IV; Start 03/08/25 at 07:00; Stop 03/08/25 at 23:13; Status DC Aminocaproic Acid 79231 mg/Sodium Chloride 480 ml @ 0 mls/hr AD PRN IV; Start 03/08/25 at 07:00; Stop 04/07/25 at 06:59 Cefazolin Sodium 2 gm STK-MED ONCE .ROUTE; Start 03/08/25 at 07:21; Stop 03/08/25 at 07:22; Status DC Sodium Chloride 1,000 ml @ As Directed STK-MED ONCE IV Last administered on 03/08/25at 07:24; Start 03/08/25 at 07:22; Stop 03/08/25 at 07:22; Status DC Heparin Sodium (Porcine) 10,000 unit STK-MED ONCE .ROUTE; Start 03/08/25 at 07:25; Stop 03/08/25 at 07:25; Status DC Heparin Sodium (Porcine) 10,000 unit STK-MED ONCE .ROUTE; Start 03/08/25 at 07:27; Stop 03/08/25 at 07:27; Status DC Potassium Chloride 200 ml @ As Directed STK-MED ONCE IV; Start 03/08/25 at 07:27; Stop 03/08/25 at 07:27; Status DC Lidocaine HCl/ Dextrose 250 ml @ As Directed STK-MED ONCE IV; Start 03/08/25 at 07:30; Stop 03/08/25 at 07:30; Status DC Nitroglycerin/ Dextrose 1 ml @ As Directed STK-MED ONCE .ROUTE; Start 03/08/25 at 07:34; Stop 03/08/25 at 07:35; Status DC Cefazolin Sodium 1 gm STK-MED ONCE .ROUTE; Start 03/08/25 at 07:36; Stop 03/08/25 at 07:36; Status DC Gentamicin Sulfate 80 mg STK-MED ONCE .ROUTE; Start 03/08/25 at 07:36; Stop 03/08/25 at 07:36; Status DC Heparin Sodium/ Sodium Chloride 500 ml @ As Directed STK-MED ONCE IV; Start 03/08/25 at 07:36; Stop 03/08/25 at 07:36; Status DC Papaverine HCl 60 mg STK-MED ONCE .ROUTE; Start 03/08/25 at 07:38; Stop 03/08/25 at 07:39; Status DC Protamine Sulfate 250 mg STK-MED ONCE IV; Start 03/08/25 at 08:28; Stop 03/08/25 at 08:28; Status DC Lidocaine HCl 100 mg STK-MED ONCE .ROUTE; Start 03/08/25 at 08:28; Stop 03/08/25 at 08:28; Status DC Epinephrine HCl 1 mg STK-MED ONCE .ROUTE; Start 03/08/25 at 08:28; Stop 03/08/25 at 08:28; Status DC Sodium Bicarbonate 150 ml @ As Directed STK-MED ONCE .ROUTE; Start 03/08/25 at 08:28; Stop 03/08/25 at 08:28; Status DC Norepinephrine Bitartrate 4 mg STK-MED ONCE IV; Start 03/08/25 at 08:28; Stop 03/08/25 at 08:28; Status DC Propofol 200 mg STK-MED ONCE IV; Start 03/08/25 at 08:28; Stop 03/08/25 at 08:29; Status DC Fentanyl Citrate 1,000 mcg STK-MED ONCE IJ; Start 03/08/25 at 08:28; Stop 03/08/25 at 08:29; Status DC Midazolam HCl 2 mg STK-MED ONCE .ROUTE; Start 03/08/25 at 08:29; Stop 03/08/25 at 08:29; Status DC Rocuronium Mullens 50 mg STK-MED ONCE .ROUTE; Start 03/08/25 at 08:29; Stop 03/08/25 at 08:29; Status DC Etomidate 20 mg STK-MED ONCE .ROUTE; Start 03/08/25 at 08:29; Stop 03/08/25 at 08:29; Status DC Amiodarone HCL/ Dextrose 100 ml @ As Directed STK-MED ONCE .ROUTE; Start 03/08/25 at 09:08; Stop 03/08/25 at 09:09; Status DC Acetaminophen 1,000 mg Q6H6 IV Last administered on 03/09/25at 12:00; Start 03/08/25 at 13:00; Stop 03/09/25 at 12:59; Status DC Aspirin 81 mg ONCE ONCE NG; Start 03/08/25 at 13:00; Stop 03/08/25 at 13:01; Status DC Docusate Sodium 100 mg BID PO Last administered on 03/17/25at 19:58; Start 03/08/25 at 21:00; Stop 04/07/25 at 20:59 Lactulose 20 gm BID PRN PO Last administered on 03/12/25at 16:26; Start 03/08/25 at 09:30; Stop 04/07/25 at 09:29 Furosemide 20 mg Q12H PO; Start 03/10/25 at 09:00; Stop 03/10/25 at 16:28; Status DC Furosemide 20 mg Q12H IV Last administered on 03/10/25at 01:15; Start 03/09/25 at 09:00; Stop 03/10/25 at 08:59; Status DC Magnesium Hydroxide 30 ml DAILY PRN PO; Start 03/08/25 at 09:30; Stop 04/07/25 at 09:29 Dexmedetomidine/ Sodium Chloride 400 mcg PROTOCOL IV; Start 03/08/25 at 09:30; Stop 03/09/25 at 09:29; Status DC Acetaminophen 650 mg Q6H PRN PO; Start 03/08/25 at 09:30; Stop 03/08/25 at 09:36; Status DC Sodium Chloride 1,000 ml @ 10 mls/hr ONCE IV; Start 03/08/25 at 09:30; Stop 03/09/25 at 09:29; Status DC Sodium Chloride 10 ml Q8H PRN IVP; Start 03/08/25 at 09:30; Stop 04/07/25 at 09:29 Morphine Sulfate 0.5 mg Q2H PRN IV; Start 03/08/25 at 09:30; Stop 03/09/25 at 09:29; Status DC Morphine Sulfate 1 mg Q2H PRN IV; Start 03/08/25 at 09:30; Stop 03/09/25 at 09:29; Status DC Acetaminophen 650 mg Q4H PRN RC; Start 03/08/25 at 09:30; Stop 04/07/25 at 09:29 Ondansetron HCl 4 mg Q6H PRN IV; Start 03/08/25 at 09:30; Stop 04/07/25 at 09:29 Sodium Chloride 500 ml @ 0 mls/hr AD IV Last administered on 03/16/25at 19:18; Start 03/08/25 at 09:30; Stop 04/07/25 at 09:29 Nitroglycerin/ Dextrose 0 ml @ 0 mls/hr AD IV; Start 03/08/25 at 09:30; Stop 03/11/25 at 09:29; Status DC Propofol 100 ml @ 0 mls/hr AD PRN IV; Start 03/08/25 at 09:30; Stop 03/12/25 at 09:29; Status DC Norepinephrine Bitartrate 8 mg/ Dextrose 250 ml @ 0 mls/hr AD PRN IV; Start 03/08/25 at 09:30; Stop 03/08/25 at 09:30; Status DC Epinephrine HCl 10 mg/Sodium Chloride 250 ml @ 0 mls/hr AD PRN IV; Start 03/08/25 at 09:30; Stop 03/08/25 at 09:30; Status DC Aminocaproic Acid 99023 mg/Sodium Chloride 310 ml @ 25 mls/hr AD IV; Start 03/08/25 at 09:30; Stop 03/08/25 at 09:31; Status DC Calcium Gluconate 1 gm/Sodium Chloride 60 ml @ 200 mls/hr AD PRN IV Last administered on 03/18/25at 03:49; Start 03/08/25 at 09:30; Stop 04/07/25 at 09:29 Magnesium Sulfate 50 ml @ 12.5 mls/hr AD PRN IV Last administered on 03/12/25at 22:19; Start 03/08/25 at 09:30; Stop 04/07/25 at 09:29 Potassium Chloride 100 ml @ 100 mls/hr AD PRN IV Last administered on 03/09/25at 05:37; Start 03/08/25 at 09:30; Stop 04/07/25 at 09:29 Potassium Phosphate 250 ml @ 42 mls/hr AD PRN IV Last administered on 03/09/25at 08:23; Start 03/08/25 at 09:30; Stop 04/07/25 at 09:29 Albumin Human 250 ml @ 0 mls/hr AD PRN IV Last administered on 03/08/25at 18:48; Start 03/08/25 at 09:30; Stop 03/08/25 at 18:48; Status DC Acetaminophen 650 mg Q4H PRN PO; Start 03/08/25 at 09:30; Stop 03/08/25 at 09:29; Status DC Insulin Human Regular 100 unit/ Sodium Chloride 100 ml @ 0 mls/hr AD IV Last administered on 03/09/25at 16:20; Start 03/08/25 at 09:30; Stop 03/10/25 at 09:29; Status DC Cefazolin Sodium 2 gm Q8H IVPB Last administered on 03/09/25at 06:06; Start 03/08/25 at 14:30; Stop 03/09/25 at 06:31; Status DC Tramadol HCl 50 mg Q6H PRN PO; Start 03/08/25 at 09:30; Stop 03/13/25 at 09:29; Status DC Tramadol HCl 100 mg Q6H PRN PO; Start 03/08/25 at 09:30; Stop 03/13/25 at 09:29; Status DC Famotidine 20 mg BID IV Last administered on 03/10/25at 08:16; Start 03/08/25 at 21:00; Stop 03/10/25 at 20:59; Status DC Sodium Bicarbonate 50 meq AD PRN IV Last administered on 03/10/25at 04:56; Start 03/08/25 at 09:30; Stop 03/11/25 at 09:29; Status DC Dextrose 50 ml AD PRN IV Last administered on 03/10/25at 00:44; Start 03/08/25 at 09:30; Stop 04/07/25 at 09:29 Glucagon 1 mg AD PRN IM; Start 03/08/25 at 09:30; Stop 04/07/25 at 09:29 Lidocaine HCl 100 mg STK-MED ONCE .ROUTE; Start 03/08/25 at 10:18; Stop 03/08/25 at 10:18; Status DC Cefazolin Sodium 2 gm STK-MED ONCE IVPB Last administered on 03/08/25at 08:40; Start 03/08/25 at 08:40; Stop 03/08/25 at 11:34; Status DC Cefazolin Sodium 1 gm STK-MED ONCE IRRIG Last administered on 03/08/25at 09:22; Start 03/08/25 at 09:22; Stop 03/08/25 at 11:34; Status DC Heparin Sodium (Porcine) 5,000 unit STK-MED ONCE IRRIG Last administered on 03/08/25at 09:22; Start 03/08/25 at 09:22; Stop 03/08/25 at 11:34; Status DC Papaverine HCl 60 mg STK-MED ONCE IRRIG Last administered on 03/08/25at 09:53; Start 03/08/25 at 09:53; Stop 03/08/25 at 11:34; Status DC Heparin Sodium (Porcine) 10,000 unit STK-MED ONCE .ROUTE; Start 03/08/25 at 12:20; Stop 03/08/25 at 12:21; Status DC Epinephrine HCl 1 mg STK-MED ONCE .ROUTE; Start 03/08/25 at 12:30; Stop 03/08/25 at 12:30; Status DC Lidocaine HCl 100 mg STK-MED ONCE .ROUTE; Start 03/08/25 at 12:42; Stop 03/08/25 at 12:42; Status DC Sodium Bicarbonate 100 ml @ As Directed STK-MED ONCE .ROUTE; Start 03/08/25 at 12:45; Stop 03/08/25 at 12:45; Status DC Amiodarone HCl 360 mg/Dextrose 207.2 ml @ 33.3 mls/hr AD IV; Start 03/08/25 at 13:00; Stop 03/08/25 at 12:52; Status DC Amiodarone HCl 360 mg/Dextrose 207.2 ml @ 33.3 mls/hr AD IV; Start 03/08/25 at 13:00; Stop 03/08/25 at 12:52; Status DC Amiodarone HCl 540 mg/Dextrose 310.8 ml @ 16.7 mls/hr [id number] STAT IV Last administered on 03/08/25at 16:44; Start 03/08/25 at 12:45; Stop 03/08/25 at 20:15; Status DC Cardioplegic Solution 0 ml @ As Directed STK-MED ONCE IV; Start 03/08/25 at 12:48; Stop 03/08/25 at 12:49; Status DC Amiodarone HCL/ Dextrose 200 ml @ 0 mls/hr ONCE ONCE IV; Start 03/08/25 at 13:00; Stop 03/08/25 at 13:01; Status DC Sodium Bicarbonate 100 ml @ As Directed STK-MED ONCE .ROUTE; Start 03/08/25 at 12:50; Stop 03/08/25 at 12:51; Status DC Heparin Sodium (Porcine) 10,000 unit STK-MED ONCE .ROUTE; Start 03/08/25 at 13:03; Stop 03/08/25 at 13:03; Status DC Potassium Chloride 300 ml @ As Directed STK-MED ONCE IV; Start 03/08/25 at 13:07; Stop 03/08/25 at 13:07; Status DC Sodium Bicarbonate 50 ml @ As Directed STK-MED ONCE .ROUTE; Start 03/08/25 at 13:33; Stop 03/08/25 at 13:33; Status DC Cefazolin Sodium 1 gm STK-MED ONCE .ROUTE; Start 03/08/25 at 14:38; Stop 03/08/25 at 14:39; Status DC Albumin Human 500 ml @ As Directed STK-MED ONCE IV; Start 03/08/25 at 14:43; Stop 03/08/25 at 14:43; Status DC Ipratropium Mullens 0.5 mg STK-MED ONCE IH Last administered on 03/08/25at 15:50; Start 03/08/25 at 15:24; Stop 03/08/25 at 15:24; Status DC Ipratropium Mullens 0.5 MG ONCE ONCE IH; Start 03/08/25 at 15:15; Stop 03/08/25 at 15:51; Status DC Albumin Human 50 ml @ 999 mls/hr Q6H IV Last administered on 03/09/25at 10:10; Start 03/08/25 at 17:00; Stop 03/09/25 at 11:02; Status DC Vasopressin 40 units/Sodium Chloride 40 ml @ 0 mls/hr PROTOCOL IV Last administered on 03/17/25at 23:06; Start 03/08/25 at 17:00; Stop 04/07/25 at 16:59 Albumin Human 250 ml @ 0 mls/hr AD IV Last administered on 03/09/25at 08:36; Start 03/08/25 at 19:00; Stop 03/10/25 at 06:44; Status DC Atropine Sulfate 1 mg STK-MED ONCE IVP Last administered on 03/08/25at 19:47; Start 03/08/25 at 19:22; Stop 03/08/25 at 19:22; Status DC Albumin Human 500 ml @ 0 mls/hr AD IV Last administered on 03/09/25at 11:35; Start 03/08/25 at 20:00; Stop 03/09/25 at 15:49; Status DC Norepinephrine Bitartrate 250 ml @ As Directed STK-MED ONCE IV; Start 03/08/25 at 22:56; Stop 03/08/25 at 22:56; Status DC Norepinephrine Bitartrate PER PROTOCOL PROTOCOL IV Last administered on 03/16/25at 19:21; Start 03/08/25 at 23:30; Stop 04/07/25 at 23:29 Albumin Human 500 ml @ 0 mls/hr AD IV Last administered on 03/10/25at 18:06; Start 03/09/25 at 22:00; Stop 03/14/25 at 21:59; Status DC Phytonadione 10 mg/Sodium Chloride 51 ml @ 100 mls/hr Q24H IVPB Last administered on 03/12/25at 00:27; Start 03/10/25 at 01:00; Stop 03/12/25 at 01:31; Status DC Furosemide 100 mg/ Sodium Chloride 100 ml @ 0 mls/hr PROTOCOL IV Last administered on 03/12/25at 05:11; Start 03/10/25 at 08:00; Stop 03/12/25 at 16:41; Status DC Sodium Zirconium Cyclosilicate 10 gm ONCE ONCE PO Last administered on 03/10/25at 08:15; Start 03/10/25 at 08:00; Stop 03/10/25 at 08:01; Status DC Piperacillin Sod/ Tazobactam Sod 3.375 gm Q8H IVPB Last administered on 03/17/25at 18:08; Start 03/10/25 at 10:30; Stop 03/18/25 at 01:42; Status DC Sodium Chloride 50 ml AD IV; Start 03/10/25 at 10:30; Stop 03/10/25 at 16:27; Status DC Prothrombin Complex Concent (Human) 500 unit ONCE IV; Start 03/10/25 at 12:00; Stop 03/10/25 at 12:24; Status DC Sodium Zirconium Cyclosilicate 10 gm ONCE ONCE PO Last administered on 03/10/25at 12:53; Start 03/10/25 at 13:00; Stop 03/10/25 at 13:01; Status DC Fentanyl Citrate 50 mcg ONCE ONCE IVP Last administered on 03/10/25at 16:51; Start 03/10/25 at 16:30; Stop 03/10/25 at 16:31; Status DC Lidocaine HCl 20 ml STK-MED ONCE .ROUTE Last administered on 03/10/25at 18:03; Start 03/10/25 at 16:38; Stop 03/10/25 at 16:38; Status DC Sodium Bicarbonate 25 meq/Dextrose 1,000 ml @ 0 mls/hr Q0M PRN IVP Last administered on 03/15/25at 05:29; Start 03/10/25 at 22:30; Stop 04/09/25 at 22:29 Dextrose 1,000 ml @ 50 mls/hr Q20H IV Last administered on 03/11/25at 19:15; Start 03/10/25 at 23:30; Stop 03/12/25 at 05:51; Status DC Sodium Zirconium Cyclosilicate 10 gm ONCE ONCE PO Last administered on 03/11/25at 07:10; Start 03/11/25 at 07:00; Stop 03/11/25 at 07:03; Status DC Sodium Zirconium Cyclosilicate 10 gm ONCE ONCE PO Last administered on 03/11/25at 11:53; Start 03/11/25 at 12:00; Stop 03/11/25 at 12:01; Status DC Metolazone 2.5 mg ONCE ONCE PO Last administered on 03/11/25at 13:01; Start 03/11/25 at 13:00; Stop 03/11/25 at 13:01; Status DC Sodium Zirconium Cyclosilicate 10 gm ONCE ONCE PO Last administered on 03/11/25at 16:27; Start 03/11/25 at 16:00; Stop 03/11/25 at 16:01; Status DC Dextrose 1,000 ml @ 0 mls/hr Q0M PRN IV; Start 03/12/25 at 06:00; Stop 04/09/25 at 23:29 Sodium Zirconium Cyclosilicate 10 gm ONCE ONCE PO Last administered on 03/12/25at 09:08; Start 03/12/25 at 09:00; Stop 03/12/25 at 09:04; Status DC Vitamin B Complex 1,000 mcg DAILY PO Last administered on 03/17/25at 09:29; Start 03/12/25 at 15:30; Stop 04/11/25 at 15:29 Folic Acid 1 mg DAILY PO Last administered on 03/17/25at 09:29; Start 03/12/25 at 15:30; Stop 04/11/25 at 15:29 Dexamethasone Sodium Phosphate 20 mg Q24H IV; Start 03/12/25 at 15:30; Stop 03/12/25 at 15:18; Status DC Iron Sucrose 300 mg/Sodium Chloride 250 ml @ 83 mls/hr Q24H IV; Start 03/12/25 at 15:30; Stop 03/14/25 at 18:31; Status Cancel Dexamethasone Sodium Phosphate 20 mg/Sodium Chloride 50 ml @ 100 mls/hr Q24H IV Last administered on 03/17/25at 15:31; Start 03/12/25 at 15:30; Stop 04/11/25 at 15:29 Lactulose 20 gm BID PRN PO; Start 03/12/25 at 16:30; Stop 03/12/25 at 16:20; Status DC Iron Sucrose 300 mg/Sodium Chloride 250 ml @ 83 mls/hr HS IV Last administered on 03/14/25at 19:55; Start 03/12/25 at 21:00; Stop 03/15/25 at 00:01; Status DC Polyethylene Glycol 17 gm DAILY PO Last administered on 03/14/25at 09:26; Start 03/13/25 at 09:00; Stop 04/12/25 at 08:59 Lactulose 20 gm BID PO Last administered on 03/15/25at 20:24; Start 03/12/25 at 21:00; Stop 04/11/25 at 20:59 Sodium Chloride 1,000 ml @ 0 mls/hr ONCE IV; Start 03/12/25 at 18:00; Stop 03/13/25 at 13:09; Status DC Fentanyl Citrate 1000 mcg/Sodium Chloride 120 ml @ 0 mls/hr AD PRN IV; Start 03/13/25 at 02:30; Stop 03/13/25 at 02:16; Status DC Fentanyl Citrate 100 ml @ 0 mls/hr PROTOCOL IV Last administered on 03/13/25at 02:29; Start 03/13/25 at 02:30; Stop 03/20/25 at 02:29 Dexmedetomidine HCl 400 mcg/ Sodium Chloride 100 ml @ 0 mls/hr AD PRN IV; Start 03/13/25 at 08:00; Stop 03/13/25 at 07:42; Status DC Dexmedetomidine/ Sodium Chloride 400 mcg PROTOCOL IV Last administered on 03/15/25at 09:49; Start 03/13/25 at 08:00; Stop 04/12/25 at 07:59 Heparin Sodium/ Dextrose 250 ml @ 0 mls/hr Q6H IV Last administered on 03/13/25at 10:42; Start 03/13/25 at 10:30; Stop 03/14/25 at 08:09; Status DC Sodium Chloride 1,000 ml @ 0 mls/hr ONCE IV Last administered on 03/15/25at 10:20; Start 03/13/25 at 13:30; Stop 04/12/25 at 13:29 Albumin Human 100 ml NOW IV; Start 03/13/25 at 13:30; Stop 03/14/25 at 13:29; Status DC Albumin Human 100 ml @ As Directed STK-MED ONCE IV Last administered on 03/13/25at 13:41; Start 03/13/25 at 13:25; Stop 03/13/25 at 13:25; Status DC Epoetin Nelson-epbx 10,000 unit ONCE ONCE SQ Last administered on 03/13/25at 14:41; Start 03/13/25 at 14:00; Stop 03/13/25 at 14:01; Status DC Pharmacy Profile Note 1 each ONCE MISC; Start 03/14/25 at 08:00; Stop 03/14/25 at 12:36; Status DC Sodium Bicarbonate 100 meq ONCE ONCE IV Last administered on 03/14/25at 12:03; Start 03/14/25 at 12:00; Stop 03/14/25 at 12:02; Status DC Argatroban 250 mg/ Sodium Chloride 250 ml @ 0 mls/hr PROTOCOL IV Last administered on 03/14/25at 17:33; Start 03/14/25 at 13:00; Stop 04/13/25 at 12:59 Multi-Ingred Cream/Lotion/Oil/ Oint 1 APPL HS OU Last administered on 03/17/25at 19:58; Start 03/14/25 at 21:00; Stop 04/13/25 at 20:59 Sodium Bicarbonate 100 meq ONCE ONCE IV Last administered on 03/15/25at 00:24; Start 03/15/25 at 00:30; Stop 03/15/25 at 00:31; Status DC Albumin Human 100 ml ONCE IV Last administered on 03/15/25at 10:16; Start 03/15/25 at 10:00; Stop 03/16/25 at 09:59; Status DC Sodium Zirconium Cyclosilicate 10 gm ONCE ONCE PO Last administered on 03/15/25at 11:03; Start 03/15/25 at 11:30; Stop 03/15/25 at 11:31; Status DC Insulin Glargine 10 units BID@0730,2100 SQ Last administered on 03/17/25at 19:59; Start 03/15/25 at 21:00; Stop 04/14/25 at 20:59 Insulin Human Regular INSULIN SLIDING SCAL... Q6H6 SQ Last administered on 03/15/25at 11:05; Start 03/15/25 at 12:00; Stop 04/14/25 at 11:59 Calcium Gluconate 1 gm/Sodium Chloride 110 ml @ 110 mls/hr ONCE ONCE IV Last administered on 03/15/25at 13:10; Start 03/15/25 at 12:00; Stop 03/15/25 at 12:59; Status DC Dextrose 25 ml ONCE ONCE IV Last administered on 03/15/25at 13:29; Start 03/15/25 at 12:00; Stop 03/15/25 at 12:02; Status DC Bumetanide 2 mg ONCE ONCE IM; Start 03/15/25 at 12:30; Stop 03/15/25 at 12:31; Status DC Insulin Human Lispro 10 unit ONCE ONCE SQ; Start 03/15/25 at 13:00; Stop 03/15/25 at 13:01; Status DC Bumetanide 2 mg ONCE ONCE IVP Last administered on 03/15/25at 13:34; Start 03/15/25 at 13:30; Stop 03/15/25 at 13:33; Status DC Insulin Human Regular 10 unit TIDAC IV Last administered on 03/15/25at 13:36; Start 03/15/25 at 17:00; Stop 03/15/25 at 14:18; Status DC Insulin Human Regular 100 unit/ Sodium Chloride 100 ml @ 0 mls/hr PROTOCOL PRN IV Last administered on 03/17/25at 23:07; Start 03/15/25 at 15:00; Stop 04/14/25 at 14:59 Vasopressin 40 units/Sodium Chloride 40 ml @ 0 mls/hr PROTOCOL STAT IV; Start 03/17/25 at 09:16; Stop 03/17/25 at 09:25; Status DC Albumin Human 100 ml ONCE ONCE IV Last administered on 03/17/25at 10:08; Start 03/17/25 at 10:00; Stop 03/17/25 at 10:01; Status DC Pantoprazole Sodium 40 mg BID IVP Last administered on 03/18/25at 08:23; Start 03/17/25 at 11:30; Stop 04/16/25 at 11:29 Piperacillin Sod/ Tazobactam Sod 3.375 gm Q12H IVPB Last administered on 03/18/25at 06:32; Start 03/18/25 at 06:30; Stop 03/20/25 at 06:29 Vancomycin HCl 1 each AD IV; Start 03/18/25 at 09:30; Stop 04/01/25 at 09:29 Vancomycin HCl 250 ml @ 125 mls/hr ONCE ONCE IV; Start 03/18/25 at 16:00; Stop 03/18/25 at 09:40; Status DC Vancomycin HCl 250 ml @ 125 mls/hr ONCE ONCE IV; Start 03/18/25 at 16:00; Stop 03/18/25 at 17:59 Vancomycin HCl 100 ml @ 100 mls/hr MWFP IV; Start 03/19/25 at 16:00; Stop 03/29/25 at 15:59 WILIAM ANDREW MD Mar 18, 2025 12:42
--- NOTE | 2025-03-18 13:09 | PN ---
[facility] PROGRESS NOTE Date of Service: Mar 18, 2025 Time of Service: 13:07 SUBJECTIVE: admission date: 02/24/25 PCP: Agnieszka Shi DO chief complaint: Chest pain Primary metal hanger: Dr Jefry Osorio This is a 59-year-old female presents in ED with chief complaints of chest pain. Onset started this morning at 2:00 a.m. patient was awaken with chest pain. Reports she has been having chest pain for a week. Location midsternal does not radiate,location midsternal stated the pain on arrival was 10/10 on pain scale. aggravated none: alleviating factors: none. Patient denies palpitation, dizziness, shortness for breath. 12 lead EKG on arrival showed heart rate [address] depression in the lateral Leads. As per ED physician changes in V5 and V6 were not seen in December 2024. Presence of LVH noted anterior STT wave changes were also. ER initiated heparin drip. Was given Full dose Aspirin and Morphine 2 mg IV x1. Troponin 1st set was negative. 02/25/25 patient was seen earlier patient reports she had chest pain overnight 3:00 a.m. patient was given nitroglycerin: continue on Heparin drip; Echo pending no chest pain at this time. she is fully alert oriented x3. 02/26/25 2D echocardiogram revealed a hypokinetic anteroseptal and anterolateral wall. LVEF 40-45%, the patient denies any cardiac symptoms or chest pain. Dr Osorio recommendations: lexiscan in am medical management for now ASA 81 mg daily , Prasugrel 10 mg daily ,Atorvastatin 40 mg daily, Imdur 30 mg daily changed Toprol XL to 25 mg daily patient is fully awake alert oriented x3. out of bed to chair with meals. Denied chest pain palpitation dyspnea. 02/27/25 patient is seen and examined patient underwent Lexiscan pending results. We will continue to monitor patient closely. She is asleep and waking per verbal stimuli primary nurse reports she was having GI problems post Lexiscan. 02/28/25 s/p Lexiscan Reversible large defect in the anterior, septal lucas. TID 1.19. LVEF 39%. Dr Osorio scheduled the patient for Left Heart cath tomorrow. The patient denies chest pain palpitation dyspnea. 03/01/25 patient was evaluated this continues without chest pain or palpitations patient had a Lexiscan stress test is PCI this after the. Patient NPO after breakfast. 03/02 patient was seen by nurse practitioner and physician during rounding in room 429. Patient is s/p left heart catheterization 03/01/[address] Jefry osorio and at this moment he is recommending cardiovascular surgeon for possible CABG evaluation. Once patient will be medically stable we will consult [facility] for evaluation. Continue one-to-one sitter for now. Continue to monitor patient in the meantime. A.m. labs 03/03 patient was seen by nurse practitioner physician during rounding. Patient was seen by cardiovascular surgeon and is pending CABG as per note at the end of this week. As per RN patient's blood pressure has been on lower side. We will order midodrine 10 mg p.r.n. t.i.d. for systolic less than 100. As per metal hanger Dr. Jefry osorio who was rounding okay with the above-stated medicine. We will continue to monitor patient in the meantime. A.m. labs. 03/04 patient was seen by nurse practitioner and physician during rounding. Patient was evaluated by the cardiovascular surgeon and he is came to perform CABG once the patient will be off Effient for 5 to 7 days. Last dose that was administered to the patient of Effient 10 mg was given on 03/01/2025 at 12:16 p.m. we will continue to monitor patient in the meantime. A.m. labs 03/05 patient was seen by nurse practitioner and physician during rounding in room 429. Patient is pending CABG once 5 to 7 days of Effient on hold we will be completed. WBC 7.3. Electrolyte replaced per protocol. Patient denies any shortness of breath, chest pain, nausea, vomiting or any other discomfort at this moment. We will continue to monitor patient in the meantime. A.m. labs 03/06/2025 - patient is seen in room 429, patient had an episode of intermittent chest pain on exertion when she went to the washroom. Chest pain relieved with sublingual nitro, troponin and EKG were ordered which were normal. Ordered improvement spec cortisol, we will follow up with the lab. Patient to be scheduled for CABG. Heart rate currently on the lower side around 50s - 60s. Patient is asymptomatic otherwise, we will follow the patient closely. 03/07 patient was seen by nurse practitioner physician during rounding in room 429. Patient is pending CABG by cardiovascular surgeon possibly tomorrow 03/08/2025. During evaluation patient denies any shortness of breath, chest pain, nausea, vomiting or any other discomfort. Patient will receive a dose of potassium. We will continue to monitor patient in the meantime. A.m. labs 03/08 patient was seen by nurse practitioner and physician during rounding in room 213. Patient is s/p CABG. No family members at the bedside at this moment. We will continue to monitor patient in the meantime. A.m. labs 03/09 was seen by nurse practitioner and physician during rounding in room 213. Patient is s/p CABG day 1. Due to hypotension and cardiogenic shock Impella was placed. Chest tube output within 24 hours 2 L. currently patient is on three pressor support requiring mechanical ventilation support. Peak 55, peep eight 50% O2. Urine output 850 cc. No family members at the bedside. We will continue CV surgery recommendation We will continue to monitor patient in the meantime. A.m. labs 03/10 patient was seen by nurse practitioner and physician during rounding in room 213. Patient continues to be intubated. Chest tube is draining about 10 to 20 mL/hour. Urine output about 5 to 10 mL/hour. Patient was placed on Lasix drip 10 milligrams/hour. Nephrology consulted for ARIADNE. Patient continues to be on epi, levo and vasopressor. Patient also experience a temperature of 103 last night blood culture were ordered patient was placed on Zosyn for now. We will continue to monitor patient in the meantime. A.m. 03/11 patient was seen by nurse practitioner physician during rounding in room 213. Patient continues to be intubated. Rate 18 Peak 60 tidal volume 580 peep eight 0 2% at 75%. Total output from the chest tube on the right within 24 hours was 550. There is a new left chest tube that was put in yesterday 03/10/2025 and total output as of now it is 820. Urine outpu 800t 150 bypass 24 hours. Patient continues to be on Lasix drip 10 milligrams/hour. Continue epi, levo, vasopressor and antibiotics Zosyn. AST 37576 ALT 2651 CK 3243. We will continue to monitor patient in the meantime. A.m. labs 03/12 patient was seen by GRIPPER MACHINE OPERATOR and physician. Patient is still intubated. Urine output less than 5 mL per hour. Rail Manager was consulted concern for HIT. Platelets 23. Patient continues to be on Lasix 10 milligrams/hour. Continue epi, levo. Patient was weaned off of vasopressor. Left chest tube drain about 30 mL in the last 24 hours. Right pleural chest drain about 500 mL in the past 24 hours. Patient is pending JOSIE and chest x-ray today. No family members at the bedside. Continue Zosyn. WBC 7.9. Bilirubin 11 AST 5742 ALT 1752 CK 4964. Final urine culture negative. Blood culture no growth in last 24 hours. Cont inue to monitor patient. A.m. labs 03/13 Patient is seen at the bedside. She remains on mechanical ventilation. Impella in place with flow rate of 4.3-4.5 liter/minute. Sedated currently on Precedex 0.4 mcg/kg per hour. Mediastinal Chest tube drainage of 110 mL noted today. Urine output 115 mL. Her left lower extremity appears Pale and mottled, cold to touch and has an absent dorsalis pedis pulse. We will order an arterial ultrasound to assess the blood flow and she is started on heparin protocol by CTS consult. Fluid collection is noted around rt BKA site. Wound care consult recommended no further interventions. Hemoglobin 7.3 on IV Venofer as per Hematology consult, platelets 98970 post 2 unit platelet transfusion, PT 14.5, INR 1.42, BUN 52 , creatinine 3, potassium 5.3, direct bilirubin 8.8, AST improved from to 9589-5525, ALT improved from 907-850, TCK improved from 4964 to 4327, alkaline phosphatase 226. 1 L of fluid is removed during dialysis session yesterday. She is due for another dialysis session today. 03.14.25: Patient remains on mechanical ventilation: SIMV-TV 550 ml/RR 18 breaths/min, PEEP 8cm H2O,FiO2 50%. . Impella in place on left upper arm - set to P8 . Patient is sedated with Precedex . Mediastinal chest tube drained 370 ml in last 24 hours.Urine output 10 ml - patient is receiving hemodialysis - 3rd session consecutively today . Patient's Rt BKA stump, left foot , rt and left hands shows erythema with blebs and mottling on the skin suggestive of worsening ischemia and is cold to touch .US doppler LLE shows peripheral arterial [place] . [place] [address]- Heparin is discontinued and she is started on Argatroban by Dr Najera . Liver function parameters show minimal improvement . Epinephrine and Vasopressin is d/c'd and she continues on Levophed. Foleys catheter and [place] Shantelle catheter has been discontinued . Picc line is to be placed as per Dr Najera . Overall , patient is critical and her prognosis is guarded . I talked to her son and daughter at around 6 pm today and updated them of the patients clinical condition in detail. All questions were answered and they confirms understanding that the patient's condition is critical and prognosis is guarded. 03/15 patient remains admitted to the ICU, she remains intubated, on mechanical ventilation, on epinephrine drip. Upon physical examination, patient's Rt BKA stump, left foot , rt and left hands shows erythema with blebs and mottling on the skin suggestive of worsening ischemia and is cold to touch. US doppler LLE shows peripheral arterial disease. Blood pressure 120/87, heart rate of 55, saturating 100% on mechanical ventilation, FiO2 50%. CBC shows hemoglobin 9.9, hematocrit 29.1, WBC 15.7, platelet count of 28. CMP with sodium 142, potassium 5.5, BUN of 69, creatinine 3.5, liver enzymes elevated with an AST of 2241, ALT of 842, alkaline phosphatase of 229, total CK 4 x 2327. ABG with pH 7.35, pCO2 of 40, PO2 45, bicarb of 22. Chest x-ray shows bilateral airspace disease with trace bilateral pleural ef fusion, more prominent on the right, change, mild stable pulmonary vascular congestion, ET tube tip 4.2 cm from karl, multiple to sell catheters in place, unchanged. Overall condition of the patient remains unchanged, her prognosis is poor and guarded. Per discussion with the RN, Cardiothoracic surgeon to meet with the family to discuss goals of care today. 03/16 patient remains admitted to the ICU, intubated, mechanical ventilation, BP 120/108, heart rate of 86, saturating 99% on mechanical ventilation, FiO2 of 60%. CBC with a persistent leukocytosis of 20.1, hemoglobin 9.8, hematocrit 26.9, platelet count of 33. Sodium 142, potassium 3.7, BUN 67, creatinine 2.9, AST of 1483, ALT of 658, alkaline phosphatase 658, albumin of 2.6. ABG shows a pH of 7.55, pCO2 30, PO2 76.8. Echocardiogram 03/14/2030, left ventricular cavity size is normal, Impella device present and we will sitting in the left ventricle, LVEF 30-35%. Cardiothoracic input noted and appreciated, we will continue to monitor. Hematology input noted and appreciated, the patient with a possible heparin induced thrombocytopenia thrombus cytopenia, patient remains on argatroban drip. Patient is started on dexamethasone 20 mg IV daily. Cardiology input noted and appreciated, continue Impella assist device, continue high-dose epinephrine. Physical examination, overall condition remains unchanged, with patient's Rt BKA stump, left foot , rt and left hands showing erythema with blebs and mottling on the skin suggestive of worsening ischemia and is cold to touch. 03/17 patient remains admitted to the ICU, intubated, mechanical ventilation, BP 120/108, heart rate of 86, saturating 99% on mechanical ventilation, FiO2 of 60%. CBC with a persistent leukocytosis of 32.7, hemoglobin 9.8, hematocrit 1 0.8, platelet count of 39. Echocardiogram 03/14/2030, left ventricular cavity size is normal, Impella device present and we will sitting in the left ventricle, LVEF 30-35%. Cardiothoracic input noted and appreciated, we will continue to monitor. Hematology input noted and appreciated, the patient with a possible heparin induced thrombocytopenia thrombus cytopenia, patient remains on argatroban drip. Patient is started on dexamethasone 20 mg IV daily. Cardiology input noted and appreciated, continue Impella assist device, continue high-dose epinephrine. Physical examination, overall condition remains unchanged, with patient's Rt BKA stump, left foot , rt and left hands showing erythema with blebs and mottling on the skin suggestive of worsening ischemia and is cold to touch. Overall prognosis of this patient remains extremely poor and guarded. Patient remains unresponsive, off sedation, no gag reflex. 03/18 patient remains admitted to the ICU, she remains intubated, on mechanical ventilation, off sedation, no bizarre fixed and dilated, no gag reflex per discussion with the nurse that is taking care of the patient. Patient remains with the Impella. Overall condition of the patient remains unchanged,patient's Rt BKA stump, left foot , rt and left hands showing erythema with blebs and mottling on the skin suggestive of worsening ischemia and is cold to touch. Prognosis extremely poor and guarded. We will continue to follow further recommendations by Cardiothoracic surgeon. REVIEW OF SYSTEMS: unable to perform PHYSICAL EXAM: GENERAL: critically ill, intubated and mechanically ventilated Patient remains unresponsive, off sedation, no gag reflex. HEENT: ET tube and OG tube in place. NECK: Supple, no JVD, trachea midline , impella with flow rate of 4-4.5 LUNGS: Sternum bandaged , diminished breath sounds bilaterally. No wheezes, ch est tubes in place HEART: Regular rate and rhythm. Normal S1 and S2, without murmurs, chest tube in place ABD: Abdomen soft, nontender. Bowel sounds present EXT: rt BKA, Patient's Rt BKA stump, left foot , rt and left hands shows priscila thema with blisters and mottling on the skin and is cold to touch NEURO: Deferred. Vital Signs (last 8hr) Date Time Temp Pulse Resp B/P (MAP) Pulse Ox O2 Delivery O2 Flow Rate FiO2 03/18/25 12:00 98.4 Ventilator 50 03/18/25 12:00 50 03/18/25 12:00 92 Ventilator+ 50 03/18/25 11:55 94 50 03/18/25 09:47 99 50 03/18/25 09:15 89 12 128/90 (103) 93 03/18/25 09:00 90 12 129/91 (104) 94 03/18/25 08:45 90 12 134/95 (108) 93 03/18/25 08:30 90 12 127/91 (103) 95 03/18/25 08:16 50 03/18/25 08:15 91 12 123/86 (98) 98 03/18/25 08:00 98.2 92 12 129/85 (100) 97 03/18/25 08:00 98.2 Ventilator 50 03/18/25 08:00 98 Ventilator+ 50 03/18/25 07:45 93 12 130/90 (103) 97 03/18/25 07:30 95 12 141/95 (110) 97 03/18/25 07:15 95 12 145/99 (114) 97 03/18/25 07:00 96 12 147/101 (116) 96 03/18/25 06:45 96 12 147/101 (116) 96 03/18/25 06:23 99 50 03/18/25 06:00 100 12 158/109 (125) 95 03/18/25 05:45 97 12 154/108 (123) 95 03/18/25 05:30 95 12 144/99 (114) 95 03/18/25 05:15 99 12 121/83 (96) 95 LABS: Laboratory: Test 03/18/25 10:43 03/18/25 09:50 03/18/25 04:55 03/18/25 03:45 Range/Units Whole Blood Glucose 128 H 70-110 MG/DL Prothrombin Time 25.7 H 9.6-11.6 SEC Prothromb Time International Ratio 2.67 H 0.85-1.15 Activated Partial Thromboplast Time 50.2 H 26.3-35.5 SEC White Blood Count 36.1 *H 4.8-10.8 K/uL Red Blood Count 2.83 L 4.00-5.50 MIL/uL Hemoglobin 9.1 L 12.0-16.0 g/dL Hematocrit 26.0 L 36-48 % Mean Corpuscular Volume 91.9 79-99 fL Mean Corpuscular Hemoglobin 32.2 27.0-33.0 pg Mean Corpuscular Hemoglobin Concent 35.0 32.0-36.0 g/dL Red Cell Distribution Width 16.7 H 11.0-15.5 % Platelet Count 43 L 130-400 K/uL Mean Platelet Volume 7.5-10.5 fL Nucleated Red Blood Cells 10.6 H 0.0-0.19 % Sodium Level 139 136-145 mmol/L Potassium Level 4.4 3.5-5.1 mmol/L Chloride Level 99 L 101-111 mmol/L Carbon Dioxide Level 26 21-32 mmol/L Blood Urea Nitrogen 73 H 7-18 mg/dL Creatinine 3.1 H 0.5-1.0 mg/dL Glomerular Filtration Rate Calc 16 >90 mL/min Random Glucose 133 H 70-105 mg/dL Total Calcium 8.7 8.5-10.1 mg/dL Total Bilirubin 7.8 H 0.2-1.0 mg/dL Aspartate Amino Transf (AST/SGOT) 1082 *H 10-37 U/L Alanine Aminotransferase (ALT/SGPT) 244 #H 12-78 U/L Alkaline Phosphatase 305 H 50-136 U/L Total Protein 5.4 L 6.0-8.3 g/dL Albumin 2.5 L 3.5-5.0 g/dL Blood Gas Specimen Type Arterial Arterial Blood pH 7.440 7.350-7.450 Arterial Blood Partial Pressure CO2 41 32-45 mmHg Arterial Blood Partial Pressure O2 113.7 H 83.0-108.0 mmHg Arterial Blood HCO3 27.0 21.0-28.0 mmol/L Arterial Blood Oxygen Saturation 98.3 H 94.0-98.0 % Arterial Blood Base Excess 2.6 -2.0-3.0 mmol/L Hemoglobin (Blood Gas) 10.1 L 12.0-16.0 g/dL Sodium (Blood Gas) 134 L 136-145 MMOL/L Bedside Potassium (Blood Gas) 4.3 3.4-4.5 MMOL/L Bedside Chloride (Blood Gas) 97 L 98-107 MMOL/L Bedside Glucose (Blood Gas) 149 H 65-95 MG/DL Bedside Ionized Calcium (Blood Gas) 1.14 L 1.15-1.33 MMOL/L Bedside Lactic Acid (Blood Gas) 2.91 H 0.36-0.75 MMOL/L Blood Gas Temperature 37.0 35.5-37.0 CELSIUS Blood Gas Respiration Rate 12.0 min. Blood Gas Vent Mode AC ROOM AIR FiO2 50.0 % Blood Gas Tidal Volume 550 ml Blood Gas PEEP 5 cm H2O Blood Gas Specimen Comment NICOLETTE SANDERS ,[place] Test 03/17/25 05:10 03/16/25 15:22 Range/Units Segmented Neutrophils % 94 H 40-70 % Lymphocytes % (Manual) 2 L 22-44 % Monocytes % (Manual) 4 2-9 % Differential Comment MANUAL DIFFERENTIAL White Cell Morphology Comment See comments Platelet Morphology Comment MARKED DECREASE Red Blood Cell Morphology ANISO 1+ Ammonia 16 11-32 umol/L Current Medications Medications (Trade) Dose Ordered Sig/Toby Route PRN Reason Start Time Stop Time Status Last Admin Dose Admin Acetaminophen (TYLenol 325MG TAB) 650 mg Q4H PRN PO TEMPERATURE GREATER THAN 101.5 02/24/25 07:00 03/26/25 06:59 03/01/25 19:06 650 MG Acetaminophen (TYLenol 325MG TAB) 650 mg Q4H PRN PO MILD PAIN (1-3) 03/02/25 02:30 04/01/25 02:29 03/04/25 10:39 650 MG Acetaminophen (TYLenol 325MG TAB) 650 mg Q4H PRN PO Temp >38.3C(AFTER EXTUBATION) 03/08/25 09:30 03/08/25 09:29 DC Acetaminophen (TYLenol 325MG TAB) 650 mg Q6H PRN PO MILD PAIN (1-3) 03/08/25 09:30 03/08/25 09:36 DC Acetaminophen (TYLenol 650MG SUPPOSITORY) 650 mg Q4H PRN RC Temp >38.3C WHILE INTUBATED 03/08/25 09:30 04/07/25 09:29 Acetaminophen (acetaMINOPHEN) 1,000 mg Q6H6 IV 03/08/25 13:00 03/09/25 12:59 DC 03/09/25 12:00 1,000 MG Albumin Human 50 ml @ 999 mls/hr Q6H IV 03/08/25 17:00 03/09/25 11:02 DC 03/09/25 10:10 999 MLS/HR Albumin Human 250 ml @ 0 mls/hr AD IV 03/08/25 19:00 03/10/25 06:44 DC 03/09/25 08:36 1,200 MLS/HR Albumin Human 250 ml @ 0 mls/hr AD PRN IV IF HEMODYNAMICALLY UNSTABLE 03/08/25 09:30 03/08/25 18:48 DC 03/08/25 18:48 1,200 MLS/HR Albumin Human 500 ml @ 0 mls/hr AD IV 03/08/25 20:00 03/09/25 15:49 DC 03/09/25 11:35 1,200 MLS/HR Albumin Human 500 ml @ 0 mls/hr AD IV 03/09/25 22:00 03/14/25 21:59 DC 03/10/25 18:06 999 MLS/HR Albumin Human (Albumin (Human) 25%) 100 ml NOW IV 03/13/25 13:30 03/14/25 13:29 DC Albumin Human (Albumin (Human) 25%) 100 ml ONCE IV 03/15/25 10:00 03/16/25 09:59 DC 03/15/25 10:16 100 ML Aminocaproic Acid 54478 mg/Sodium Chloride 310 ml @ 25 mls/hr AD IV 03/08/25 09:30 03/08/25 09:31 DC Aminocaproic Acid 78858 mg/Sodium Chloride 480 ml @ 0 mls/hr AD PRN IV BLEEDING CONTROL 03/08/25 07:00 04/07/25 06:59 Amiodarone HCl 360 mg/Dextrose 207.2 ml @ 33.3 mls/hr AD IV 03/08/25 13:00 03/08/25 12:52 DC Amiodarone HCl 360 mg/Dextrose 207.2 ml @ 33.3 mls/hr AD IV 03/08/25 13:00 03/08/25 12:52 DC Amiodarone HCl 540 mg/Dextrose 310.8 ml @ 16.7 mls/hr [id number] STAT IV 03/08/25 12:45 03/08/25 20:15 DC 03/08/25 16:44 16.7 MLS/HR Argatroban 250 mg/ Sodium Chloride 250 ml @ 0 mls/hr PROTOCOL IV 03/14/25 13:00 04/13/25 12:59 03/14/25 17:33 1.26 MLS/HR Aspirin (Aspirin 81mg Chew Tab) 81 mg DAILY PO 02/25/25 09:00 03/01/25 12:33 DC 02/28/25 09:18 81 MG Aspirin (Aspirin 81mg Chew Tab) 81 mg DAILY PO 03/02/25 09:00 04/01/25 08:59 03/17/25 09:30 81 MG Aspirin (Aspirin 81mg Ec Tab) 81 mg DAILY PO 02/24/25 09:00 02/24/25 08:52 DC Atorvastatin Calcium (LIPItor 20MG) 20 mg HS PO 02/24/25 21:00 02/24/25 08:52 DC Atorvastatin Calcium (LIPItor 40MG) 40 mg HS PO 02/24/25 21:00 03/12/25 08:25 DC 03/11/25 20:11 40 MG Calcium Gluconate 1 gm/Sodium Chloride 60 ml @ 200 mls/hr AD PRN IV HYPOCALCEMIA 03/08/25 09:30 04/07/25 09:29 03/18/25 03:49 200 MLS/HR Cefazolin Sodium (Ancef) 2 gm ONCALL IVP 03/07/25 22:00 03/09/25 21:59 DC Cefazolin Sodium (Ancef) 2 gm Q8H IVPB 03/08/25 14:30 03/09/25 06:31 DC 03/09/25 06:06 2 GM Citalopram Hydrobromide (CeleXA 20MG TAB) 10 mg DAILY PO 02/25/25 09:00 03/27/25 08:59 03/10/25 08:16 10 MG Dexamethasone Sodium Phosphate (dexaMETHasone 4MG/ML 1ML VIAL) 20 mg Q24H IV 03/12/25 15:30 03/12/25 15:18 DC Dexamethasone Sodium Phosphate 20 mg/Sodium Chloride 50 ml @ 100 mls/hr Q24H IV 03/12/25 15:30 04/11/25 15:29 03/17/25 15:31 100 MLS/HR Dexmedetomidine HCl 400 mcg/ Sodium Chloride 100 ml @ 0 mls/hr AD PRN IV TITRATE 03/13/25 08:00 03/13/25 07:42 DC Dexmedetomidine/ Sodium Chloride (PRECEdex 400MCG/ 100ML-NS) 400 mcg PROTOCOL IV 03/08/25 09:30 03/09/25 09:29 DC Dexmedetomidine/ Sodium Chloride (PRECEdex 400MCG/ 100ML-NS) 400 mcg PROTOCOL IV 03/13/25 08:00 04/12/25 07:59 03/15/25 09:49 400 MCG Dextrose 1,000 ml @ 0 mls/hr Q0M PRN IV OTHER [SEE ORDER COMMENTS] 03/12/25 06:00 04/09/25 23:29 Dextrose 1,000 ml @ 50 mls/hr Q20H IV 03/10/25 23:30 03/12/25 05:51 DC 03/11/25 19:15 50 MLS/HR Dextrose (D50w) 50 ml AD PRN IV HYPOGLYCEMIA PROTOCOL 03/01/25 12:30 03/09/25 15:51 DC Dextrose (D50w) 50 ml AD PRN IV HYPOGLYCEMIA PROTOCOL 03/08/25 09:30 04/07/25 09:29 03/10/25 00:44 50 ML Docusate Sodium (COLace 100MG CAP) 100 mg BID PO 03/03/25 21:00 03/03/25 16:22 DC Docusate Sodium (COLace 100MG CAP) 100 mg BID PO 03/08/25 21:00 04/07/25 20:59 03/17/25 19:58 100 MG Epinephrine HCl 10 mg/Sodium Chloride 250 ml @ 0 mls/hr AD PRN IV TITRATE 03/08/25 07:00 04/07/25 06:59 03/16/25 19:21 3.2 MLS/HR Epinephrine HCl 10 mg/Sodium Chloride 250 ml @ 0 mls/hr AD PRN IV POST-OP CARDIOVASCULAR ORDERS 03/08/25 09:30 03/08/25 09:30 DC Famotidine (Pepcid 20mg Vial) 20 mg BID IV 03/08/25 21:00 03/10/25 20:59 DC 03/10/25 08:16 20 MG Famotidine (Pepcid 20mg Tab) 20 mg BID PO 02/24/25 09:00 03/09/25 10:34 DC 03/07/25 20:29 20 MG Fentanyl Citrate 100 ml @ 0 mls/hr PROTOCOL IV 03/13/25 02:30 03/20/25 02:29 03/13/25 02:29 0 MLS/HR Fentanyl Citrate 1000 mcg/Sodium Chloride 120 ml @ 0 mls/hr AD PRN IV TITRATE 03/13/25 02:30 03/13/25 02:16 DC Folic Acid (FOLic ACID 1 MG TABLET) 1 mg DAILY PO 03/12/25 15:30 04/11/25 15:29 03/17/25 09:29 1 MG Furosemide (LASix 20MG TAB) 20 mg Q12H PO 03/10/25 09:00 03/10/25 16:28 DC Furosemide (LASix 20MG VIAL) 20 mg Q12H IV 03/09/25 09:00 03/10/25 08:59 DC 03/10/25 01:15 20 MG Furosemide 100 mg/ Sodium Chloride 100 ml @ 0 mls/hr PROTOCOL IV 03/10/25 08:00 03/12/25 16:41 DC 03/12/25 05:11 10 MLS/HR Glucagon (Glucagon 1mg Kit) 1 mg AD PRN IM HYPOGLYCEMIA PROTOCOL 03/01/25 12:30 03/09/25 15:51 DC Glucagon (Glucagon 1mg Kit) 1 mg AD PRN IM HYPOGLYCEMIA PROTOCOL 03/08/25 09:30 04/07/25 09:29 Heparin Sodium/ Dextrose 250 ml @ 0 mls/hr PROTOCOL PRN IV PROTOCOL 02/24/25 06:00 02/25/25 05:59 DC 02/25/25 01:09 7.36 MLS/HR Heparin Sodium/ Dextrose 250 ml @ 0 mls/hr Q6H IV 03/13/25 10:30 03/14/25 08:09 DC 03/13/25 10:42 7.14 MLS/HR Insulin Glargine (LANtus 100 UNITS/ML 10 ML VIAL) 10 units BID@0730,2100 SQ 03/15/25 21:00 04/14/25 20:59 03/17/25 19:59 10 UNITS Insulin Human Regular (humuLIN R 100 UNIT/ML 3ML) 10 unit TIDAC IV 03/15/25 17:00 03/15/25 14:18 DC 03/15/25 13:36 10 UNIT Insulin Human Regular (humuLIN R 100 UNIT/ML 3ML) INSULIN SLIDING SCAL... ACHS SQ 02/24/25 11:30 03/08/25 09:15 DC 03/06/25 20:24 6 UNIT Insulin Human Regular (humuLIN R 100 UNIT/ML 3ML) INSULIN SLIDING SCAL... Q6H6 SQ 03/15/25 12:00 04/14/25 11:59 03/15/25 11:05 16 UNIT Insulin Human Regular 100 unit/ Sodium Chloride 100 ml @ 0 mls/hr AD IV 03/08/25 09:30 03/10/25 09:29 DC 03/09/25 16:20 2 MLS/HR Insulin Human Regular 100 unit/ Sodium Chloride 100 ml @ 0 mls/hr PROTOCOL PRN IV ELEVATED BLOOD GLUCOSE 03/15/25 15:00 04/14/25 14:59 03/17/25 23:07 7 MLS/HR Iron Sucrose 300 mg/Sodium Chloride 250 ml @ 83 mls/hr HS IV 03/12/25 21:00 03/15/25 00:01 DC 03/14/25 19:55 83 MLS/HR Iron Sucrose 300 mg/Sodium Chloride 250 ml @ 83 mls/hr Q24H IV 03/12/25 15:30 03/14/25 18:31 Cancel Isosorbide Mononitrate (Imdur 30mg Sr) 30 mg DAILY PO 02/24/25 09:00 03/06/25 11:46 DC 03/06/25 08:13 30 MG Isosorbide Mononitrate (Imdur 30mg Sr) 60 mg DAILY PO 03/07/25 09:00 03/08/25 09:15 DC 03/07/25 08:47 60 MG Ketorolac Tromethamine (ketOROlac troMETHamine) 15 mg Q6H PRN PO MODERATE PAIN (4-6) 03/03/25 18:00 03/03/25 16:22 DC Lactulose (Constulose 20gm/ 30ml Udcup) 20 gm BID PO 03/12/25 21:00 04/11/25 20:59 03/15/25 20:24 20 GM Lactulose (Constulose 20gm/ 30ml Udcup) 20 gm BID PRN PO CONSTIPATION 03/08/25 09:30 04/07/25 09:29 03/12/25 16:26 20 GM Lactulose (Constulose 20gm/ 30ml Udcup) 20 gm BID PRN PO CONSTIPATION 03/12/25 16:30 03/12/25 16:20 DC Magnesium Hydroxide (Milk Of Magnesium 30ml) 30 ml DAILY PRN PO CONSTIPATION 03/08/25 09:30 04/07/25 09:29 Magnesium Sulfate 50 ml @ 12.5 mls/hr AD PRN IV MAG LEVEL LESS THAN 2.0 03/08/25 09:30 04/07/25 09:29 03/12/25 22:19 12.5 MLS/HR Magnesium Sulfate 50 ml @ 0 mls/hr PROTOCOL PRN IV low mag level 02/24/25 09:30 03/09/25 15:49 DC Metoprolol Succinate (TopROL XL) 12.5 mg DAILY PO 02/24/25 09:00 03/06/25 18:49 DC 03/03/25 08:36 12.5 MG Midodrine (PROAMatine 5 MG TABLET) 10 mg TID PO 03/03/25 14:00 03/08/25 09:15 DC 03/07/25 14:38 10 MG Morphine Sulfate (morPHINE 2MG SYG) 0.5 mg Q2H PRN IV MODERATE PAIN (4-6) 03/08/25 09:30 03/09/25 09:29 DC Morphine Sulfate (morPHINE 2MG SYG) 1 mg Q2H PRN IV SEVERE PAIN (7-10) 03/08/25 09:30 03/09/25 09:29 DC Multi-Ingred Cream/Lotion/Oil/ Oint (Artificial Tears Eye Oint) 1 APPL HS OU 03/14/25 21:00 04/13/25 20:59 03/17/25 19:58 1 APPL Nitroglycerin (Nitrostat) 0.4 mg Q5M PRN SL CHEST PAIN 02/24/25 06:00 03/06/25 08:51 DC 03/06/25 08:50 0.4 MG Nitroglycerin/ Dextrose 0 ml @ 0 mls/hr AD IV 03/08/25 09:30 03/11/25 09:29 DC Norepinephrine Bitartrate 250 ml @ 0 mls/hr AD PRN IV TITRATE 03/08/25 07:00 03/08/25 23:13 DC Norepinephrine Bitartrate (Norepineph 16 Mg/250ml NS Premix) PER PROTOCOL PROTOCOL IV 03/08/25 23:30 04/07/25 23:29 03/16/25 19:21 16 MG Norepinephrine Bitartrate 8 mg/ Dextrose 250 ml @ 0 mls/hr AD PRN IV POST-OP CARDIOVASCULAR ORDERS 03/08/25 09:30 03/08/25 09:30 DC Ondansetron HCl (zoFRAN 4MG INJ) 4 mg Q6H PRN IV NAUSEA/VOMITING 03/08/25 09:30 04/07/25 09:29 Pantoprazole Sodium (PROTonix 40MG INJ) 40 mg BID IVP 03/17/25 11:30 04/16/25 11:29 03/18/25 08:23 40 MG Pharmacy Profile Note (Pharmacy Communication) 1 each ONCE MISC 03/14/25 08:00 03/14/25 12:36 DC Phytonadione 10 mg/Sodium Chloride 51 ml @ 100 mls/hr Q24H IVPB 03/10/25 01:00 03/12/25 01:31 DC 03/12/25 00:27 100 MLS/HR Piperacillin Sod/ Tazobactam Sod (Zosyn 3.375gm+NS 50ml) 3.375 gm Q12H IVPB 03/18/25 06:30 03/20/25 06:29 03/18/25 06:32 3.375 GM Piperacillin Sod/ Tazobactam Sod (Zosyn 3.375gm+NS 50ml) 3.375 gm Q8H IVPB 03/10/25 10:30 03/18/25 01:42 DC 03/17/25 18:08 3.375 GM Polyethylene Glycol (MIRalax 3350 17 GM POWD.PACK) 17 gm DAILY PO 03/13/25 09:00 04/12/25 08:59 03/14/25 09:26 17 GM Potassium Phosphate 250 ml @ 42 mls/hr AD PRN IV LOW PHOS LEVEL 03/08/25 09:30 04/07/25 09:29 03/09/25 08:23 42 MLS/HR Potassium Chloride 100 ml @ 50 mls/hr AD PRN IV POTASSIUM PROTOCOL 02/24/25 09:30 03/08/25 09:15 DC Potassium Chloride 100 ml @ 100 mls/hr AD PRN IV POTASSIUM PROTOCOL 02/26/25 11:30 02/27/25 09:49 DC Potassium Chloride 100 ml @ 100 mls/hr AD PRN IV HYPOKALEMIA 03/08/25 09:30 04/07/25 09:29 03/09/25 05:37 100 MLS/HR Potassium Chloride (K-Dur/Klor-Con 20meq) 20 meq AD PRN PO POTASSIUM PROTOCOL 02/26/25 11:30 03/08/25 09:15 DC 03/07/25 05:23 20 MEQ Potassium Chloride (KCl 10% Elixir 20meq/15ml) 20 meq AD PRN PO POTASSIUM PROTOCOL 02/26/25 11:30 03/08/25 09:15 DC Prasugrel (Effient 10mg) 10 mg DAILY PO 02/25/25 09:00 03/01/25 12:54 DC 02/28/25 09:18 10 MG Propofol 100 ml @ 0 mls/hr AD PRN IV SEDATION 03/08/25 09:30 03/12/25 09:29 DC Prothrombin Complex Concent (Human) (Kcentra 500 Unit Kit) 500 unit ONCE IV 03/10/25 12:00 03/10/25 12:24 DC Sodium Bicarbonate 25 meq/Dextrose 1,000 ml @ 0 mls/hr Q0M PRN IVP OTHER [SEE ORDER COMMENTS] 03/10/25 22:30 04/09/25 22:29 03/15/25 05:29 10 MLS/HR Sodium Bicarbonate (Sodium Bicarb 50meq 50ml Vial) 50 meq AD PRN IV OTHER[SEE DOSING INSTRUCTIONS] 03/08/25 09:30 03/11/25 09:29 DC 03/10/25 04:56 100 MEQ Sodium Chloride 500 ml @ 0 mls/hr AD IV 03/08/25 09:30 04/07/25 09:29 03/16/25 19:18 3 MLS/HR Sodium Chloride 1,000 ml @ 0 mls/hr ONCE IV 03/12/25 18:00 03/13/25 13:09 DC Sodium Chloride 1,000 ml @ 0 mls/hr ONCE IV 03/13/25 13:30 04/12/25 13:29 03/15/25 10:20 1,000 MLS/HR Sodium Chloride 1,000 ml @ 10 mls/hr ONCE IV 03/08/25 09:30 03/09/25 09:29 DC Sodium Chloride 1,000 ml @ 150 mls/hr Q6H40M IV 03/01/25 12:30 03/01/25 16:29 DC 03/01/25 19:04 150 MLS/HR Sodium Chloride (NS 50ml) 50 ml AD IV 03/10/25 10:30 03/10/25 16:27 DC Sodium Chloride (NS Flush 10ml) 10 ml Q8H PRN IVP IV LINE FLUSH 03/08/25 09:30 04/07/25 09:29 Tramadol HCl (UltRAM) 50 mg Q6H PRN PO MODERATE PAIN (4-6) 03/08/25 09:30 03/13/25 09:29 DC Tramadol HCl (UltRAM) 100 mg Q6H PRN PO SEVERE PAIN (7-10) 03/08/25 09:30 03/13/25 09:29 DC Vancomycin HCl 100 ml @ 100 mls/hr MWFPHD IV 03/19/25 16:00 03/29/25 15:59 Vancomycin HCl (Vancomycin Protocol) 1 each AD IV 03/18/25 09:30 04/01/25 09:29 Vasopressin 40 units/Sodium Chloride 40 ml @ 0 mls/hr PROTOCOL IV 03/08/25 17:00 04/07/25 16:59 03/17/25 23:06 1.2 MLS/HR Vasopressin 40 units/Sodium Chloride 40 ml @ 0 mls/hr PROTOCOL STAT IV 03/17/25 09:16 03/17/25 09:25 DC Vitamin B Complex (Vitamin B-12) 1,000 mcg DAILY PO 03/12/25 15:30 04/11/25 15:29 03/17/25 09:29 1,000 MCG DIAGNOSTICS / RADIOLOGY: [ ] Assessment: Severe 2 vessel CAD -S/P 4v CABG with impella support on 03-08-[address] Barajas Acute on chronic HFmrEF (LVEF: 40-45% by echo done on 02/25/2025, LVEF 30% on 03.14.25) Cardiogenic shock SCAI Stage D with multiorgan dysfunction , not POA - secondary to complex nature of the procedure and preexisting comorbidities . Multiorgan dysfunction including shock Liver , Acute Kidney failure , respiratory failure -post procedure secondary to complex nature of the CABG and preexisting comorbidities . Anemia , Poa Acute blood loss anemia , s/p surgery - expected . Thrombocytopenia-rule out HIT Severe protein calorie malnutrition with muscle atrophy ; BMI 14.2 NOT POA, expected secondary to comorbidities History of Myocardial infarction 2023 Unstable angina s/p Lexiscan Reversible large defect in the anterior, septal lucas. TID 1.19. LVEF 39%. CAD status post stenting of the proximal LAD proximal circumflex and mid circumflex artery as above with documented progression of disease December 2024 managed medically because of concern the patient would not be compliant with dual antiplatelet therapy Remote anterior wall myocardial infarction July 2024 complicated by cardiogenic shock requiring Impella support for PCI with subsequent ischemic leg requiring [id number] amputation Uncontrolled hypertension POA Hyperlipidemia Uncontrolled diabetes mellitus type 2 with hyperglycemia POA Non compliance to medications, POA Hypercoagulable state on Prasugrel POA Functional decline: s/p Rt BKA POA PLAN: patient remains admitted to the ICU, she remains intubated, on mechanical ventilation, off sedation, no bizarre fixed and dilated, no gag reflex per discussion with the nurse that is taking care of the patient. Patient remains with the Impella. Overall condition of the patient remains unchanged,patient's Rt BKA stump, left foot , rt and left hands showing erythema with blebs and mottling on the skin suggestive of worsening ischemia and is cold to touch. Prognosis extremely poor and guarded. We will continue to follow further recommendations by Cardiothoracic surgeon. NEURO: Minimize central acting medications as possible. Fall Precautions. Well lighted room through the day and minimize interruptions through the night to prevent acute delirium. PULMONARY: Supplemental 02 as needed BiPAP as necessary, for respiratory distress Titrate Fio2 to keep Spo2 > or = 90% DuoNebs and CPT as needed IS hourly while awake for pulmonary hygiene prn Out of bed to chair as tolerated Maintain aspiration precautions at all times CARDIOVASCULAR: Follow hemodynamics. Vital signs per facility protocol GI & NUTRITION: Continue nutritional support Aspirations precautions Prokinetic agents and laxatives as needed KIDNEYS & ELECTROLYTES: Strict monitoring of intake and output Daily weights Avoid nephrotoxic agents Monitor electrolytes and replace as needed Goal urine output of 30mL/hr or 0.5mL/kg/hr Medications to be dosed according to renal function. Avoid contrast if possible ENDOCRINE: Maintain blood glucose between 100-180 at all times. Insulin sliding scale for blood glucose management Hypoglycemia and hyperglycemia protocol in place INFECTIOUS DISEASE: Trend temperature, WBC and procalcitonin level Follow cultures, deescalate antibiotics as soon as possible. Panculture if new onset fever HEMATOLOGY & COAGULATION: Monitor H&H. Keep Hgb > 7 Transfuse 1 unit of PRBC for Hgb < 7 Transfuse 1 pack of platelets of platelets < 20, 000 Watch for any signs and symptoms of bleeding SKIN: Pressure ulcer prevention per facility protocol Specialty mattress as needed ORTHO/REHAB Continue PT/OT PRN: MEDICATIONS Tylenol 650 mg po every 4 hrs for fever zofran 4 mg IV every 6 hrs for n/v Hydralazine 5 mg IV every 4 hrs systolic pressure > 160 bowel regiment: lactulose 20 gm PO BID PRN constipation Supportive measures: Continue GI and DVT prophylaxis Disposition: Pending improvement in clinical condition All questions answered time spent: > 35 min MAIKEL DISLA MD Mar 18, 2025 13:09
[2025-03-18 15:01] LABS: ABG BASE EXCESS 0.1 mmol/L (-2.0-3.0); ABG HCO3 23.2 mmol/L (21.0-28.0); ABG OXYGEN SATURATION 98.7 % (94.0-98.0); ABG PCO2 32 mmHg (32-45); ABG PH 7.481 (7.350-7.450); CARBON MONOXIDE 1.8 % (0.5-1.5); PO2, ARTERIAL BG 135.6 mmHg (83.0-108.0); TEMPERATURE, CELSIUS BG 37.0 CELSIUS (35.5-37.0); VENT MODE, BG AC (ROOM AIR)
--- NOTE | 2025-03-18 15:30 | NUR ---
DR.D JIMÉNEZ AT BEDSIDE DR. Wilson JIMÉNEZ CALLED PRASHANTH PAGE SON, REGARDING GOALS/PLAN OF CARE. PER SON FAMILY WILL BE HERE LATER TO TALK TO DR Wilson JIMÉNEZ.
[2025-03-18] MEDS ORDERED: VANCOMYCIN 1G/250ML KIT 250 ML IV ONE (16:00)
--- NOTE | 2025-03-18 16:13 | HMCIMG ---
EXAM: CR Chest, 2 View. CLINICAL HISTORY: s/p cabg impella Comparison: Radiograph dated March 17, 2025 Findings: AP view of the chest is submitted. Endotracheal tube, right IJ central venous catheter, enteric tube, and chest tubes appear in satisfactory positions. Relatively unchanged multifocal airspace disease bilaterally, more pronounced within the left lower lobe. Small bilateral effusions. No pneumothorax. Heart size is stable. Mild central pulmonary vascular congestion. IMPRESSION: 1. Multifocal airspace disease, more pronounced in left lower lobe, unchanged. Small bilateral pleural effusions. 2. Mild central pulmonary vascular congestion. 3. Support lines and tubes in satisfactory position. /[place]
--- NOTE | 2025-03-18 16:21 | PN ---
TIME: 3:00 p.m. SUBJECTIVE: The patient is a 59-year-old female status post coronary artery bypass grafting and Impella 5.5, remains critical in the ICU, still with no neurological response. PHYSICAL EXAMINATION: NEUROLOGIC: Not responding, not following commands. CARDIAC: S1, S2, regular rate and rhythm. RESPIRATORY: Clear to auscultation bilaterally. CHEST: Incision is clean, dry, and intact. ASSESSMENT AND PLAN: * Coronary artery disease, status post CABG with Impella support due to cardiogenic shock. Still on low-dose epinephrine. No other pressors. We will continue to wean the Impella as tolerated. * Volume overload. The patient is on intermittent dialysis. * Acute renal failure, status post surgery. The patient continues to receive hemodialysis sessions based on Nephrology recommendations. We will let them decide on the frequency and method. * Likely anoxic brain injury. The patient currently has no gag response or has any sort of neurologic function for the last 3 days. Neurology will be consulted to follow up and give us recommendations for overall prognosis and care. Overall, the patient remains critical. Her overall prognosis may not be ideal, but we will have to wait for Neurology to give us the final recommendation prior to having a final discussion with the family. We will continue to follow daily. TID: [id number] RECEIPT: [id number]
--- NOTE | 2025-03-18 16:41 | CONS ---
CONSULTATION NOTE Date of Service: Mar 18, 2025 Reason for Consultation: Eval of neuro prognosis Requesting Physician: Hospitalist HISTORY OF PRESENT ILLNESS: Ms. Cordero, a 59-year-old female with a history of hypertension, diabetes, hyperlipidemia, and previous myocardial infarction ([place]), presented with recent cardiac complications and subsequent surgical intervention. The patient's medical history is significant for multiple cardiac events. She experienced a heart attack on August 09, 2024, followed by another [place] in January 2025. She was diagnosed with multivessel disease and initially managed medically. However, she began experiencing recurrent chest pain, which led to her admission for coronary artery bypass grafting (CABG) on March 08, 2025. During the CABG procedure, Ms. Cordero became severely hypotensive, necessitating reopening of the surgical site. Complications arose when the left internal mammary artery (GOLDSTEIN) graft to the left anterior descending (LAD) artery became clotted and had to be clipped off. Post-operatively, she was placed on an Impella device and required multiple vasopressors due to persistent hypotension. The patient's condition deteriorated, resulting in widespread ischemia and loss of neurological function. Currently, Ms. Cordero is unresponsive with no observable reflexes, including the absence of corneal, pupillary, vestibular, and gag reflexes. She shows no res ponse to painful stimuli. The clinical presentation is highly suggestive of brain , pending formal confirmation. REVIEW OF SYSTEMS CONSTITUTIONAL: Denies fever, chills, or fatigue. HEAD/FACE: No signs of trauma. EENT: Denies eye pain, blurred vision, double vision, or light sensitivity. RESPIRATORY: resp failure CARDIOVASCULAR: chest pain GASTROINTESTINAL/ABDOMINAL: Denies abdominal pain, constipation, diarrhea, nausea or vomiting GENITOURINARY: Denies dysuria or hematuria. MUSCULOSKELETAL: Denies joint pain, tenderness, or trauma. INTEGUMENTARY: Denies rash or itchiness NEUROLOGICAL/PSYCH: comatose state PAST MEDICAL HISTORY: - Multivessel coronary artery disease - Myocardial infarction in January 2025 - Myocardial infarction on August 09, 2024 - History of ampullary cysts - Hyperlipidemia - Diabetes mellitus - Hypertension PAST SURGICAL HISTORY: - CABG (Coronary Artery Bypass Graft) on 03/08, complicated by hypotension requiring reopening - GOLDSTEIN (Left Internal Mammary Artery) graft to LAD (Left Anterior Descending) artery, which clotted and required clipping - Amputation of leg, date unspecified - Cardiac catheterization with stent placement, date unspecified PAST SOCIAL HISTORY: none FAMILY HISTORY: none Coded Allergies: No Known Drug Allergies (Unverified Allergy, Unknown, 09/06/18) PHYSICAL EXAM EYES: icteric HENT: No VO reflexes. No pupillary reflexes. No gag reflexes. NECK: Supple, no JVD or thyromegaly. LUNGS: Good air entry. No rales, no rhonchi. CARDIOVASCULAR: S1, S2 regular. No murmur heard. ABDOMEN: Soft, non tender, bowel sounds present, no organomegaly CENTRAL NERVOUS SYSTEM: comatose. SKIN: No rashes, no swelling. LYMPHATICS: No peripheral lymphadenopathy MUSCULOSKELETAL: No localizing no w/d to pain. EXTREMITIES: No cyanosis or clubbing BACK: No deformity, no pressure ulcer. GENITOURINARY: No dysuria or hematuria Vital Sign (Last 24 Hours) 03/18/25 03/18/25 03/18/25 03/18/25 14:45 15:02 16:00 16:08 Temp 98.4 Pulse 86 Resp 12 B/P (MAP) 123/76 (92) Pulse Ox 91 O2 Delivery Ventilator+ FiO2 40 Intake & Output (last 24hrs) 03/17/25 03/17/25 03/18/25 15:00 23:00 07:00 Intake Total 318.5 ml 679.2 ml 425.2 ml Output Total 2400 ml 120 ml 150 ml Balance -2081.5 ml 559.2 ml 275.2 ml LABS: Laboratory: Test 03/18/25 14:59 03/18/25 14:55 03/18/25 13:58 03/18/25 09:50 Range/Units Blood Gas Specimen Type Arterial Arterial Blood pH 7.481 H 7.350-7.450 Arterial Blood Partial Pressure CO2 32 32-45 mmHg Arterial Blood Partial Pressure O2 135.6 H 83.0-108.0 mmHg Arterial Blood HCO3 23.2 21.0-28.0 mmol/L Arterial Blood Oxygen Saturation 98.7 H 94.0-98.0 % Arterial Blood Base Excess 0.1 -2.0-3.0 mmol/L Hemoglobin (Blood Gas) 9.4 L 12.0-16.0 g/dL Sodium (Blood Gas) 135 L 136-145 MMOL/L Bedside Potassium (Blood Gas) 4.4 3.4-4.5 MMOL/L Bedside Chloride (Blood Gas) 98 98-107 MMOL/L Bedside Glucose (Blood Gas) 113 H 65-95 MG/DL Bedside Ionized Calcium (Blood Gas) 1.15 1.15-1.33 MMOL/L Bedside Lactic Acid (Blood Gas) 2.17 H 0.36-0.75 MMOL/L Blood Gas Temperature 37.0 35.5-37.0 CELSIUS Blood Gas Respiration Rate 12.0 min. Blood Gas Vent Mode AC ROOM AIR FiO2 50.0 % Blood Gas Tidal Volume 550 ml Blood Gas PEEP 5 cm H2O Blood Gas Specimen Comment MOISÉS SHAH,RN Whole Blood Glucose 120 H 70-110 MG/DL Activated Partial Thromboplast Time 52.4 H 26.3-35.5 SEC Ammonia 18 11-32 umol/L Prothrombin Time 25.7 H 9.6-11.6 SEC Prothromb Time International Ratio 2.67 H 0.85-1.15 Test 03/18/25 04:55 03/17/25 05:10 Range/Units White Blood Count 36.1 *H 4.8-10.8 K/uL Red Blood Count 2.83 L 4.00-5.50 MIL/uL Hemoglobin 9.1 L 12.0-16.0 g/dL Hematocrit 26.0 L 36-48 % Mean Corpuscular Volume 91.9 79-99 fL Mean Corpuscular Hemoglobin 32.2 27.0-33.0 pg Mean Corpuscular Hemoglobin Concent 35.0 32.0-36.0 g/dL Red Cell Distribution Width 16.7 H 11.0-15.5 % Platelet Count 43 L 130-400 K/uL Mean Platelet Volume 7.5-10.5 fL Nucleated Red Blood Cells 10.6 H 0.0-0.19 % Sodium Level 139 136-145 mmol/L Potassium Level 4.4 3.5-5.1 mmol/L Chloride Level 99 L 101-111 mmol/L Carbon Dioxide Level 26 21-32 mmol/L Blood Urea Nitrogen 73 H 7-18 mg/dL Creatinine 3.1 H 0.5-1.0 mg/dL Glomerular Filtration Rate Calc 16 >90 mL/min Random Glucose 133 H 70-105 mg/dL Total Calcium 8.7 8.5-10.1 mg/dL Total Bilirubin 7.8 H 0.2-1.0 mg/dL Aspartate Amino Transf (AST/SGOT) 1082 *H 10-37 U/L Alanine Aminotransferase (ALT/SGPT) 244 #H 12-78 U/L Alkaline Phosphatase 305 H 50-136 U/L Total Protein 5.4 L 6.0-8.3 g/dL Albumin 2.5 L 3.5-5.0 g/dL Segmented Neutrophils % 94 H 40-70 % Lymphocytes % (Manual) 2 L 22-44 % Monocytes % (Manual) 4 2-9 % Differential Comment MANUAL DIFFERENTIAL White Cell Morphology Comment See comments Platelet Morphology Comment MARKED DECREASE Red Blood Cell Morphology ANISO 1+ DIAGNOSTICS / RADIOLOGY: [ ] ASSESSMENT / PLAN: Ms. Cordero, a 59-year-old female with a history of hypertension, diabetes, hyperlipidemia, and myocardial infarction, presented with recurrent chest pain and underwent coronary artery bypass grafting (CABG) on 03/08, complicated by hypotension and graft occlusion. Suspected Brain Assessment: Ms. Cordero underwent CABG on 03/08, which was complicated by severe hypotension requiring reopening. A left internal mammary artery (GOLDSTEIN) graft to the left anterior descending artery (LAD) was found to be occluded and was clipped off. The patient was placed on an intra-aortic balloon pump (IABP) and multiple pressors for hemodynamic support. She developed diffuse ischemia and currently demonstrates no reflexes, including absent corneal, pupillary, vestibular, and gag reflexes. There is no response to painful stimuli. This clinical presentation is highly suggestive of brain . Plan: - Perform comprehensive neurological examination to confirm brain - Consider ancillary testing (e.g., cerebral perfusion scan) or EEG if deemed necessary by the surgical team - Discuss findings and prognosis with family members - Consult with ethics committee regarding end-of-life care decisions - Prepare for potential withdrawal of life-sustaining treatment pending family decision Post-CABG Complications Assessment: Ms. Cordero underwent CABG on 03/08 for multivessel coronary artery disease following recurrent chest pain and multiple myocardial infarctions (most recent in January 2025). The immediate post-operative course was complicated by severe hypotension requiring reopening of the surgical site. A GOLDSTEIN graft to the LAD was found to be occluded and was subsequently clipped off. The patient required IABP and multiple pressors for hemodynamic support. Plan: - Continue intensive care management - Monitor hemodynamic parameters closely - Adjust vasopressor support as needed - Maintain IABP as indicated - Assess for any signs of end-organ dysfunction Coronary Artery Disease Assessment: Ms. Cordero has a history of coronary artery disease with multiple myocardial infarctions, including events in July 2024 and January 2025. She was initially managed medically for multivessel disease but required CABG due to recurrent chest pain. Plan: - Continue optimal medical management for coronary artery disease - Reassess cardiac function and perfusion when clinically appropriate Thank you for your consultation. I will sign off. BRENTON LEIVA MD Mar 18, 2025 16:41
[2025-03-18] MEDS: VANCOMYCIN 1G/250ML KIT 250 ML IV ONE (16:48)
--- NOTE | 2025-03-18 17:30 | NUR ---
DR. Chyna JIMÉNEZ AT BEDSIDE DR. Chyna JIMÉNEZ AT BEDSIDE, SPOKE WITH AND 4 OF PT'S CHILDREN. FAMILY IN AGREEMENT TO DO WITHDRAWAL OF LIFE SUPPORT. DR SMALLWOOD CALLED AND NOTIFIED.
--- NOTE | 2025-03-18 18:00 | NUR ---
WITHDRAWAL OF LIFE SUPPORT PT'S CHILDREN HAVE SIGNED DNR AND WITHDRAWAL OF LIFE SUPPORT. IMPELLA 5.5 TURNED OFF, EPINEPHRINE DRIP STOPPED.
--- NOTE | 2025-03-18 18:01 | NUR ---
EXTUBATION PT EXTUBATED BY RT, PLACED ON O2 @L N/C. FAMILY CALLED INTO BEDSIDE.
--- NOTE | 2025-03-18 18:15 | NUR ---
PT PT PRONOUNCED BY FOZIA SPENCEREAP COUNSELOR.
--- NOTE | 2025-03-18 18:40 | NUR ---
TRISH CALLED WITH CARDIAC TIME OF . PT RULED OUT FOR ORGAN DONATION DUE TO MEDICAL HISTORY. SPOKE WITH JOSEPH
--- NOTE | 2025-03-19 05:42 | HMCIMG ---
EXAM: CR Abdomen, 2 views. CLINICAL HISTORY: Rule out bowel obstruction. COMPARISON: None provided. FINDINGS: The gastric tube tip overlies the distal stomach. Positive GI contrast is evident in the proximal stomach. There is a tube in the midline of the pelvis. Another dual-lumen catheter overlies the left side of the pelvis. An electronic device overlies the upper to mid-abdomen. Questionable drainage tubes overlie the mediastinum. Nonobstructed nonspecific bowel gas pattern. No free air is evident. No abnormal calcification. No aggressive appearing osseous lesion. IMPRESSION: Nonobstructed nonspecific bowel gas pattern. /[place]
--- NOTE | 2025-03-19 09:20 | DS ---
Discharge Summary Hospital Course Summary: Date of service March 18, 2025 The patient initially admitted to the hospital February 24, 2025 with the following history of the present illness: This is a 59-year-old female presents in ED with chief complaints of chest pain. Onset started this morning at 2:00 a.m. patient was awaken with chest pain. Reports she has been having chest pain for a week. Location midsternal does not radiate,location midsternal stated the pain on arrival was 10/10 on pain scale. aggravated none: alleviating factors: none. Patient denies palpitation, dizziness, shortness for breath. 12 lead EKG on arrival showed heart rate [address] depression in the lateral Leads. As per ED physician changes in V5 and V6 were not seen in December 2024. Presence of LVH noted anterior STT wave changes were also. ER initiated heparin drip. Was given Full dose Aspirin and Morphine 2 mg IV x1. Troponin 1st set was negative. home medications: Prasugrel 10 mg po daily, Isosorbide ER 30 mg po daily, metoprolol succ. 12.5 mg po martin Atorvastatin 40 mg po HS. the patient reports be compliance with home medications as directed. Last Echo: The left ventricle is moderately dilated. Global hypokinesis of the left ventricle. LVEF is 35-40%. Stage II, diastolic dysfunction. Mild aortic regurgitation. the patient reports no chest pain at this time: she appears thin and fragile: all questions addressed. discussed plan of care. HOSPITALIZATION COURSE 02/25/25 patient was seen earlier patient reports she had chest pain overnight 3:00 a.m. patient was given nitroglycerin: continue on Heparin drip; Echo pending no chest pain at this time. she is fully alert oriented x3. 02/26/25 2D echocardiogram revealed a hypokinetic anteroseptal and anterolateral wall. LVEF 40-45%, the patient denies any cardiac symptoms or chest pain. Dr Osorio recommendations: lexiscan in am medical management for now ASA 81 mg daily , Prasugrel 10 mg daily ,Atorvastatin 40 mg daily, Imdur 30 mg daily changed Toprol XL to 25 mg daily patient is fully awake alert oriented x3. out of bed to chair with meals. Denied chest pain palpitation dyspnea. 02/27/25 patient is seen and examined patient underwent Lexiscan pending results. We will continue to monitor patient closely. She is asleep and waking per verbal stimuli primary nurse reports she was having GI problems post Lexiscan. 02/28/25 s/p Lexiscan Reversible large defect in the anterior, septal lucas. TID 1.19. LVEF 39%. Dr Osorio scheduled the patient for Left Heart cath tomorrow. The patient denies chest pain palpitation dyspnea. 03/01/25 patient was evaluated this continues without chest pain or palpitations patient had a Lexiscan stress test is PCI this after the. Patient NPO after breakfast. 03/02 patient was seen by nurse practitioner and physician during rounding in room 429. Patient is s/p left heart catheterization 03/01/[address] Jefry osorio and at this moment he is recommending cardiovascular surgeon for possible CABG evaluation. Once patient will be medically stable we will consult [facility] for evaluation. Continue one-to-one sitter for now. Continue to monitor patient in the meantime. A.m. labs 03/03 patient was seen by nurse practitioner physician during rounding. Patient was seen by cardiovascular surgeon and is pending CABG as per note at the end of this week. As per RN patient's blood pressure has been on lower side. We will order midodrine 10 mg p.r.n. t.i.d. for systolic less than 100. As per operations label clerk Dr. Jefry osorio who was rounding okay with the above-stated medicine. We will continue to monitor patient in the meantime. A.m. labs. 03/04 patient was seen by nurse practitioner and physician during rounding. Patient was evaluated by the cardiovascular surgeon and he is came to perform CABG once the patient will be off Effient for 5 to 7 days. Last dose that was administered to the patient of Effient 10 mg was given on 03/01/2025 at 12:16 p.m. we will continue to monitor patient in the meantime. A.m. labs 03/05 patient was seen by nurse practitioner and physician during rounding in room 429. Patient is pending CABG once 5 to 7 days of Effient on hold we will be completed. WBC 7.3. Electrolyte replaced per protocol. Patient denies any shortness of breath, chest pain, nausea, vomiting or any other discomfort at this moment. We will continue to monitor patient in the meantime. A.m. labs 03/06/2025 - patient is seen in room 429, patient had an episode of intermittent chest pain on exertion when she went to the washroom. Chest pain relieved with sublingual nitro, troponin and EKG were ordered which were normal. Ordered blue print control clerk cortisol, we will follow up with the lab. Patient to be scheduled for CABG. Heart rate currently on the lower side around 50s - 60s. Patient is asymptomatic otherwise, we will follow the patient closely. 03/07 patient was seen by nurse practitioner physician during rounding in room 429. Patient is pending CABG by cardiovascular surgeon possibly tomorrow 03/08/2025. During evaluation patient denies any shortness of breath, chest pain, nausea, vomiting or any other discomfort. Patient will receive a dose of potassium. We will continue to monitor patient in the meantime. A.m. labs 03/08 patient was seen by nurse practitioner and physician during rounding in room 213. Patient is s/p CABG. No family members at the bedside at this moment. We will continue to monitor patient in the meantime. A.m. labs 03/09 was seen by nurse practitioner and physician during rounding in room 213. Patient is s/p CABG day 1. Due to hypotension and cardiogenic shock Impella was placed. Chest tube output within 24 hours 2 L. currently patient is on three pressor support requiring mechanical ventilation support. Peak 55, peep eight 50% O2. Urine output 850 cc. No family members at the bedside. We will continue CV surgery recommendation We will continue to monitor patient in the meantime. A.m. labs 03/10 patient was seen by nurse practitioner and physician during rounding in room 213. Patient continues to be intubated. Chest tube is draining about 10 to 20 mL/hour. Urine output about 5 to 10 mL/hour. Patient was placed on Lasix drip 10 milligrams/hour. Nephrology consulted for ARIADNE. Patient continues to be on epi, levo and vasopressor. Patient also experience a temperature of 103 las t night blood culture were ordered patient was placed on Zosyn for now. We will continue to monitor patient in the meantime. A.m. 03/11 patient was seen by nurse practitioner physician during rounding in room 213. Patient continues to be intubated. Rate 18 Peak 60 tidal volume 580 peep eight 0 2% at 75%. Total output from the chest tube on the right within 24 hours was 550. There is a new left chest tube that was put in yesterday 03/10/2025 and total output as of now it is 820. Urine outpu 800t 150 bypass 24 hours. Patient continues to be on Lasix drip 10 milligrams/hour. Continue epi, levo, vasopressor and antibiotics Zosyn. AST 72504 ALT 2651 CK 3243. We will continue to monitor patient in the meantime. A.m. labs 03/12 patient was seen by STAGE TECHNICIAN and physician. Patient is still intubated. Urine output less than 5 mL per hour. Media Associate was consulted concern for HIT. P late. Patient continues to be on Lasix 10 milligrams/hour. Continue epi, levo. Patient was weaned off of vasopressor. Left chest tube drain about 30 mL in the last 24 hours. Right pleural chest drain about 500 mL in the past 24 hours. Patient is pending JOSIE and chest x-ray today. No family members at the bedside. Continue Zosyn. WBC 7.9. Bilirubin 11 AST 5742 ALT 1752 CK 4964. Final urine culture negative. Blood culture no growth in last 24 hours. Continue to monitor patient. A.m. labs 03/13 Patient is seen at the bedside. She remains on mechanical ventilation. Impella in place with flow rate of 4.3-4.5 liter/minute. Sedated currently on Precedex 0.4 mcg/kg per hour. Mediastinal Chest tube drainage of 110 mL noted today. Urine output 115 mL. Her left lower extremity appears Pale and mottled, cold to touch and has an absent dorsalis pedis pulse. We will order an arterial ultrasound to assess the blood flow and she is started on heparin protocol by CTS consult. Fluid collection is noted around rt BKA site. Wound care consult recommended no further interventions. Hemoglobin 7.3 on IV Venofer as per Hematology consult, platelets 55427 post 2 unit platelet transfusion, PT 14.5, INR 1.42, BUN 52 , creatinine 3, potassium 5.3, direct bilirubin 8.8, AST improved from to 6600-9191, ALT improved from 907-850, TCK improved from 4964 to 4327, alkaline phosphatase 226. 1 L of fluid is removed during dialysis session yesterday. She is due for another dialysis session today. 6.29.25: Patient remains on mechanical ventilation: SIMV-TV 550 ml/RR 18 breaths/min, PEEP 8cm H2O,FiO2 50%. . Impella in place on left upper arm - set to P8 . Patient is sedated with Precedex . Mediastinal chest tube drained 370 ml in last 24 hours.Urine output 10 ml - patient is receiving hemodialysis - 3rd session consecutively today . Patient's Rt BKA stump, left foot , rt and left hands shows erythema with blebs and mottling on the skin suggestive of worsening ischemia and is cold to touch .US doppler LLE shows peripheral arterial [place] . [place] [address]- Heparin is discontinued and she is started on Argatroban by Dr Najera . Liver function parameters show minimal improvement . Epinephrine and Vasopressin is d/c'd and she continues on Levophed. Foleys catheter and [place] catheter has been discontinued . Picc line is to be placed as per Dr Najera . Overall , p atient is critical and her prognosis is guarded . I talked to her son and daughter at around 6 pm today and updated them of the patients clinical condition in detail. All questions were answered and they confirms understanding that the patient's condition is critical and prognosis is guarded. 03/15 patient remains admitted to the ICU, she remains intubated, on mechanical ventilation, on epinephrine drip. Upon physical examination, patient's Rt BKA stump, left foot , rt and left hands shows erythema with blebs and mottling on the skin suggestive of worsening ischemia and is cold to touch. US doppler LLE shows peripheral arterial disease. Blood pressure 120/87, heart rate of 55, saturating 100% on mechanical ventilation, FiO2 50%. CBC shows hemoglobin 9.9, hematocrit 29.1, WBC 15.7, platelet count of 28. CMP with sodium 142, potassium 5.5, BUN of 69, creatinine 3.5, liver enzymes elevated with an AST of 2241, ALT of 842, alkaline phosphatase of 229, total CK 4 x 2327. ABG with pH 7.35, pCO2 of 40, PO2 45, bicarb of 22. Chest x-ray shows bilateral airspace disease with trace bilateral pleural effusion, more prominent on the right, change, mild stable pulmonary vascular congestion, ET tube tip 4.2 cm from karl, multiple to sell catheters in place, unchanged. Overall condition of the patient remains unchanged, her prognosis is poor and guarded. Per discussion with the RN, Cardiothoracic surgeon to meet with the family to discuss goals of care today. 03/16 patient remains admitted to the ICU, intubated, mechanical ventilation, BP 120/108, heart rate of 86, saturating 99% on mechanical ventilation, FiO2 of 60%. CBC with a persistent leukocytosis of 20.1, hemoglobin 9.8, hematocrit 26.9, platelet count of 33. Sodium 142, potassium 3.7, BUN 67, creatinine 2.9, AST of 1483, ALT of 658, alkaline phosphatase 658, albumin of 2.6. ABG shows a pH of 7.55, pCO2 30, PO2 76.8. Echocardiogram 03/14/2030, left ventricular cavity size is normal, Impella device present and we will sitting in the left ventricle, LVEF 30-35%. Cardiothoracic input noted and appreciated, we will continue to monitor. Hematology input noted and appreciated, the patient with a possible heparin induced thrombocytopenia thrombus cytopenia, patient remains on argatroban drip. Patient is started on dexamethasone 20 mg IV daily. Cardiology input noted and appreciated, continue Impella assist device, continue high-dose epinephrine. Physical examination, overall condition remains unchanged, with patient's Rt BKA stump, left foot , rt and left hands showing erythema with blebs and mottling on the skin suggestive of worsening ischemia and is cold to touch. 03/17 patient remains admitted to the ICU, intubated, mechanical ventilation, BP 120/108, heart rate of 86, saturating 99% on mechanical ventilation, FiO2 of 60%. CBC with a persistent leukocytosis of 32.7, hemoglobin 9.8, hematocrit 10.8, platelet count of 39. Echocardiogram 03/14/2030, left ventricular cavity size is normal, Impella device present and we will sitting in the left ventricle, LVEF 30-35%. Cardiothoracic input noted and appreciated, we will continue to monitor. Hematology input noted and appreciated, the patient with a possible heparin induced thrombocytopenia thrombus cytopenia, patient remains on argatroban drip. Patient is started on dexamethasone 20 mg IV daily. Cardiology input noted and appreciated, continue Impella assist device, continue high-dose epinephrine. Physical examination, overall condition remains unchanged, with patient's Rt BKA stump, left foot , rt and left hands showing erythema with blebs and mottling on the skin suggestive of worsening ischemia and is cold to touch. Overall prognosis of this patient remains extremely poor and guarded. Patient remains unresponsive, off sedation, no gag reflex. 03/18 patient remains admitted to the ICU, she remains intubated, on mechanical ventilation, off sedation, no bizarre fixed and dilated, no gag reflex per discussion with the nurse that is taking care of the patient. Patient remains with the Impella. Overall condition of the patient remains unchanged,patient's Rt BKA stump, left foot , rt and left hands showing erythema with blebs and mo ttling on the skin suggestive of worsening ischemia and is cold to touch. Prognosis extremely poor and guarded. We will continue to follow further recommendations by Cardiothoracic surgeon. Informed by the nurse taking care of the patient the family has decided on comfort measures. Patient at 6:15 p.m.. Family notified. Mimeograph Operator(s): Cardiology, Cardiothoracic surgeon, critical care Procedure(s): Severe 2 vessel CAD -S/P 4v CABG with impella support on 03-08-[address] Barajas Assessment/Plan: FINAL DIAGNOSIS Severe 2 vessel CAD -S/P 4v CABG with impella support on 03-08-[address] Barajas Acute on chronic HFmrEF (LVEF: 40-45% by echo done on 02/25/2025, LVEF 30% on 03.14.25) Cardiogenic shock SCAI Stage D with multiorgan dysfunction , not POA - secondary to complex nature of the procedure and preexisting comorbidities . Multiorgan dysfunction including shock Liver , Acute Kidney failure , respiratory failure -post procedure secondary to complex nature of the CABG and preexisting comorbidities . Anemia , Poa Acute blood loss anemia , s/p surgery - expected . Thrombocytopenia-rule out HIT Severe protein calorie malnutrition with muscle atrophy ; BMI 14.2 NOT POA, expected secondary to comorbidities History of Myocardial infarction 2023 Unstable angina s/p Lexiscan Reversible large defect in the anterior, septal lucas. TID 1.19. LVEF 39%. CAD status post stenting of the proximal LAD proximal circumflex and mid circumflex artery as above with documented progression of disease December 2024 managed medically because of concern the patient would not be compliant with dual antiplatelet therapy Remote anterior wall myocardial infarction July 2024 complicated by cardiogenic shock requiring Impella support for PCI with subsequent ischemic leg requiring [id number] amputation Uncontrolled hypertension POA Hyperlipidemia Uncontrolled diabetes mellitus type 2 with hyperglycemia POA Non compliance to medications, POA Hypercoagulable state on Prasugrel POA Functional decline: s/p Rt BKA POA Discharge Instructions: Informed by the nurse taking care of the patient the family has decided on comfort measures. Patient at 6:15 p.m.. Family notified. Home Medications: Active Scripts Prasugrel HCl (Effient) 10 Mg Tablet, 10 MG PO DAILY, #30 TAB 0 Refills Prov:TOMEKA SCHULTE 12/23/24 Metoprolol Succinate (Toprol Xl) 25 Mg Tab.er.24h, 12.5 MG PO DAILY, #30 TAB 0 Refills Prov:TOMEKA SCHULTE 12/23/24 [Isosorbide [place] 30MG Sr Tab] 30 MG TAB.ER.24H No Conflict Check, 30 MG PO DAILY, #30 0 Refills Prov:TOMEKA SCHULTE 12/23/24 Pantoprazole Sodium (Protonix) 40 Mg Ectab, 1 TAB PO DAILY for 30 Days, #30 TAB 0 Refills Prov:JESSE SOSA MD 11/09/24 Reported Medications [Tramadol Hcl ] No Conflict Check, 50 MG PO Q6HPRN PRN for PAIN 12/20/24 Dapagliflozin Propanediol (Farxiga) 10 Mg Tablet, 1 TAB PO DAILY for 30 Days, #30 TAB 0 Refills 12/20/24 Ondansetron HCl (Ondansetron HCl) 4 Mg Tablet, 1 TAB PO Q6HPRN PRN for nausea/vomiting, #10 TAB 0 Refills 12/20/24 Escitalopram Oxalate (Escitalopram Oxalate) 5 Mg Tablet, 1 TAB PO DAILY for 30 Days, #30 TAB 0 Refills 12/20/24 Atorvastatin Calcium (LIPITOR) 40 Mg Tablet, 1 TAB PO HS for 30 Days, #30 TAB 0 Refills 09/12/24 Time spent arranging discharge: 31-60 minutes MAIKEL DISLA MD Mar 19, 2025 09:20
--- NOTE | 2025-03-19 12:12 | NUR ---
JACQUE FROM [facility] CALLED TO GIVE UPDATE THAT THEY WERE STILL TRYING TO SPEAK WITH FAMILY.
--- NOTE | 2025-03-19 15:08 | NUR ---
AARON FROM [facility] CALLED TO GIVE UP THAT THEY WERE UNSUCCESSFUL IN SPEAKING WITH THE FAMILY. BODY CAN BE RELEASED.
--- NOTE | 2025-03-19 15:34 | NUR ---
CALL PLACED TO [facility].
[2025-03-19] MEDS ORDERED: VANCOMYCIN 500MG+NS 100ML 100 ML IV SCH (16:00)
== END 2025-03-18 18:15 | DRG 1 ==
LOC: EDH 04:59 → 4AH 06:49 → EDHIP 06:49 → UNDOADMIN 06:49 → 4AH 23:16 → EDHIP 23:16 → 4AH 03-03 18:12 → UNDOADMIN 03-03 18:12 → 4AH 03-08 09:07 → 2CV 03-08 09:07 → UNDODISIN 03-18 18:15
PROVIDERS: ADMIT Hospitalist; ATTEND Hospitalist
PROC: 4A02XM4 Measurement of Cardiac Total Activity, External Approach (ICD-10-PCS; 2025-02-27)
PROC: 3E073KZ Introduction of Other Diagnostic Substance into Coronary Artery, Percutaneous Approach (ICD-10-PCS; 2025-02-27)
PROC: 4A023N7 Measurement of Cardiac Sampling and Pressure, Left Heart, Percutaneous Approach (ICD-10-PCS; 2025-03-01)
PROC: B2111ZZ Fluoroscopy of Multiple Coronary Arteries using Low Osmolar Contrast (ICD-10-PCS; 2025-03-01)
PROC: X2HX0F9 Insertion of Conduit to Short-term External Heart Assist System into Thoracic Aorta, Ascending, Open Approach, New Technology Group 9 (ICD-10-PCS; 2025-03-08)
PROC: 5A0221D Assistance with Cardiac Output using Impeller Pump, Continuous (ICD-10-PCS; 2025-03-08)
PROC: 5A1955Z Respiratory Ventilation, Greater than 96 Consecutive Hours (ICD-10-PCS; 2025-03-08)
PROC: 5A1221Z Performance of Cardiac Output, Continuous (ICD-10-PCS; 2025-03-08)
PROC: B24BZZ4 Ultrasonography of Heart with Aorta, Transesophageal (ICD-10-PCS; 2025-03-08)
PROC: 30233K1 Transfusion of Nonautologous Frozen Plasma into Peripheral Vein, Percutaneous Approach (ICD-10-PCS; 2025-03-08)
PROC: 30233N1 Transfusion of Nonautologous Red Blood Cells into Peripheral Vein, Percutaneous Approach (ICD-10-PCS; 2025-03-08)
PROC: 30233R1 Transfusion of Nonautologous Platelets into Peripheral Vein, Percutaneous Approach (ICD-10-PCS; 2025-03-08)
PROC: 5A02210 Assistance with Cardiac Output using Balloon Pump, Continuous (ICD-10-PCS; 2025-03-08)
PROC: 02HA0RZ Insertion of Short-term External Heart Assist System into Heart, Open Approach (ICD-10-PCS; principal; 2025-03-08 11:00)
PROC: 02100Z9 Bypass Coronary Artery, One Artery from Left Internal Mammary, Open Approach (ICD-10-PCS; 2025-03-08 11:00)
PROC: 021309W Bypass Coronary Artery, Four or More Arteries from Aorta with Autologous Venous Tissue, Open Approach (ICD-10-PCS; 2025-03-08 11:00)
PROC: 0PH000Z Insertion of Rigid Plate Internal Fixation Device into Sternum, Open Approach (ICD-10-PCS; 2025-03-08 11:00)
PROC: 06BQ4ZZ Excision of Left Saphenous Vein, Percutaneous Endoscopic Approach (ICD-10-PCS; 2025-03-08 11:00)
PROC: 0BH18EZ Insertion of Endotracheal Airway into Trachea, Via Natural or Artificial Opening Endoscopic (ICD-10-PCS; 2025-03-08 11:00)
PROC: 0W9B30Z Drainage of Left Pleural Cavity with Drainage Device, Percutaneous Approach (ICD-10-PCS; 2025-03-10)
PROC: 06HY33Z Insertion of Infusion Device into Lower Vein, Percutaneous Approach (ICD-10-PCS; 2025-03-12)
PROC: B54CZZA Ultrasonography of Left Lower Extremity Veins, Guidance (ICD-10-PCS; 2025-03-12)
PROC: 5A1D70Z Performance of Urinary Filtration, Intermittent, Less than 6 Hours Per Day (ICD-10-PCS; 2025-03-12)
PROC: 5A1D70Z Performance of Urinary Filtration, Intermittent, Less than 6 Hours Per Day (ICD-10-PCS; 2025-03-13)
PROC: 02HV33Z Insertion of Infusion Device into Superior Vena Cava, Percutaneous Approach (ICD-10-PCS; 2025-03-14)
PROC: 5A1D70Z Performance of Urinary Filtration, Intermittent, Less than 6 Hours Per Day (ICD-10-PCS; 2025-03-15)
PROC: 5A1D70Z Performance of Urinary Filtration, Intermittent, Less than 6 Hours Per Day (ICD-10-PCS; 2025-03-17)
DX: I25.110 Atherosclerotic heart disease of native coronary artery with unstable angina pectoris (principal); E43 Unspecified severe protein-calorie malnutrition; J95.1 Acute pulmonary insufficiency following thoracic surgery; N18.6 End stage renal disease; K72.00 Acute and subacute hepatic failure without coma; J96.00 Acute respiratory failure, unspecified whether with hypoxia or hypercapnia; Z68.1 Body mass index [BMI] 19.9 or less, adult; I24.9 Acute ischemic heart disease, unspecified; D62 Acute posthemorrhagic anemia; E87.20 Acidosis, unspecified; N17.9 Acute kidney failure, unspecified; I50.22 Chronic systolic (congestive) heart failure; I13.2 Hypertensive heart and chronic kidney disease with heart failure and with stage 5 chronic kidney disease, or end stage renal disease; D68.59 Other primary thrombophilia; R57.0 Cardiogenic shock; I25.2 Old myocardial infarction; Z89.511 Acquired absence of right leg below knee; I99.8 Other disorder of circulatory system; D50.9 Iron deficiency anemia, unspecified; D70.9 Neutropenia, unspecified; E11.22 Type 2 diabetes mellitus with diabetic chronic kidney disease; E11.51 Type 2 diabetes mellitus with diabetic peripheral angiopathy without gangrene; E11.65 Type 2 diabetes mellitus with hyperglycemia; E78.00 Pure hypercholesterolemia, unspecified; E87.5 Hyperkalemia; D69.6 Thrombocytopenia, unspecified; I49.01 Ventricular fibrillation; Z79.02 Long term (current) use of antithrombotics/antiplatelets; Z79.82 Long term (current) use of aspirin; Z79.899 Other long term (current) drug therapy; Z91.148 Patient's other noncompliance with medication regimen for other reason; Z95.5 Presence of coronary angioplasty implant and graft; Z99.2 Dependence on renal dialysis
CPT/HCPCS: 36415; 36430; 36556; 71045; 74018; 76376; 78452; 80048; 80053; 80061; 80076; 81001; 82040; 82140; 82150; 82330; 82435; 82533; 82550; 82565; 82570; 82728; 82803; 82947; 82948; 83036; 83540; 83550; 83605; 83690; 83735; 83880; 84100; 84132; 84295; 84300; 84484; 84520; 85014; 85018; 85025; 85027; 85347; 85384; 85610; 85730; 86022; 86701; 86704; 86706; 86803; 86850; 86900; 86901; 86923; 86927; 87040; 87086; 87340; 87390; 87641; 90935; 93005; 93017; 93308; 93312; 93325; 93356; 93458; 93926; 94002; 94003; 94640; 97161; 99156; 99157; 99285; A4450; A7048; A9500; C1757; G0378; J0169; J0171; J0282; J0461; J0612; J0690; J0883; J1100; J1265; J1580; J1644; J1756; J1815; J1938; J2003; J2150; J2250; J2270; J2371; J2440; J2470; J2543; J2704; J2720; J2785; J3010; J3373; J3430; J3475; J3480; J3490; J7030; J7040; J7050; J7060; J7070; J7120; P9012; P9016; P9017; P9034; P9045; P9046; P9047; Q9967; A4215; A4216; A4222; A4223; A4351; A4649; A6204; A6252; A9900; C1713; C1751; C1768; C1769; C1776; C1887; C1894; C9159; C9250; J0283; P9010; Q5106; Q9965